=== PATIENT | female | born 1975 | race Caucasian/White ===

== ENCOUNTER 2019-07-18 09:51 | Inpatient (IN) | payer BC, MEDICAID, SELFPAY ==
[2019-07-18] VITALS (17 sets, daily range): BP systolic 157–206; BP diastolic 68–89; PULSE 76–104; RESP 16–21; TEMP 36.7–37.3; O2SAT 96–100
--- NOTE | ~2019-07-18 | US_ITS ---
EXAMINATION: US biopsy renal DATE: 07/29/2019 14:05 INDICATION: Acute on chronic renal failure. TECHNIQUE: The procedure including the risks, benefits, and alternatives was discussed with the patie nt. Risks discussed included bleeding and infection. The patient understood the risks and agreed to p roceed. A timeout was performed to verify the patient's name, date of , and procedure to be p erformed. The skin overlying the left kidney was prepped and draped in usual sterile fashion. Anest hetic was administered with 1% lidocaine subcutaneously. An 18 gauge core biopsy needle was then use d to obtain 3 core biopsy specimens under continuous sonographic guidance. The entry site was cleaned and dressed. There were no immediate complications. FINDINGS: Ultrasound images demonstrate the needle in the kidney. IMPRESSION: 1. Ultrasound-guided random left kidney core needle biopsy. Reviewed, dictated and finalized at location A. CTOR DATA
--- NOTE | ~2019-07-18 | XR_ITS ---
EXAMINATION: XR chest 1V portable DATE: 07/18/2019 10:46 INDICATION: Central line placement. TECHNIQUE: A single frontal view of the chest was obtained. COMPARISON: Chest 2 views 06/05/2019 FINDINGS: There is mild atelectasis at right lung base. No pleural effusion or pneumothorax. The hear t size is normal. A left upper extremity peripherally inserted central venous catheter (PICC) is seen with tip in the superior vena cava. IMPRESSION: 1. PICC tip in the superior vena cava. 2. Mild atelectasis at right lung base. Reviewed, dictated and finalized at location A. S OFFICE ADMINISTRATOR
--- NOTE | ~2019-07-18 | XR_ITS ---
EXAMINATION: XR chest 2V DATE: 07/22/2019 15:28 INDICATION: Cough TECHNIQUE: PA and lateral views of the chest are obtained. COMPARISON: 07/18/2019 FINDINGS: There are airspace opacities of the lingula and left lower lobe. A left upper extremity PIC C ends with its tip in the proximal superior vena cava. There is a small left pleural effusion. The h eart size is normal. There is moderate thoracic spondylosis. IMPRESSION: 1. Left basilar airspace opacity, consistent with atelectasis versus pneumonia. Reviewed, dictated and finalized at location A. ER WOODWIND REEDS
--- NOTE | ~2019-07-18 | XR_ITS ---
EXAMINATION: XR foot LT min 3V DATE: 07/18/2019 12:59 INDICATION: Left foot diabetic ulcer. TECHNIQUE: 4 views of left foot were obtained. COMPARISON: None. FINDINGS: There is amputation of neck of second metatarsal. There are erosions of head and neck of fo urth metatarsal with pathologic fracture. Periosteal new bone formation is seen of the second through fifth metatarsals. There is dorsomedial dislocation of first proximal phalanx with respect to the me dial cuneiform. 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 There is mild osteoarthritis of some of the interphalangeal joints. There is an enthesophyte at plantar aspect of calcaneal tuberosity. There is forefoot and midfoot soft tissue swelling. IMPRESSION: 1. Osteomyelitis involving the fourth metatarsal. 2. Periosteal reaction of the second through fifth metatarsals, which may be from osteomyelitis or ve nous stasis. 3. Neuropathic osteoarthropathy. Reviewed, dictated and finalized at location A. NCE TECHNICIAN IMPRESSION: 1. Osteomyelitis involving the fourth metatarsal. 2. Periosteal reaction of the second through fifth metatarsals, which may be fr om osteomyelitis or venous stasis. 3. Neuropathic osteoarthropathy.
--- NOTE | ~2019-07-18 | XR_ITS ---
EXAMINATION: XR chest 1V portable INDICATION: Tunnel dialysis catheter insertion TECHNIQUE: Portable AP chest at 1414 hours COMPARISON: 07/22/2019 FINDINGS: A right internal jugular analysis catheter has been inserted which ends with its tip in the proximal right atrium. There is no pneumothorax. Previously described airspace opacities of the ling patel and left lower lobe have resolved. The heart size is normal. There is no pleural effusion. IMPRESSION: 1. Right internal jugular tunneled dialysis catheter ending in the right atrium. No pneumothorax. 2. Resolved left basilar airspace opacity, consistent with atelectasis versus pneumonia. Reviewed, dictated and finalized at location A. AD SPINNER IMPRESSION: 1. Right internal jugular tunneled dialysis catheter ending in the right atrium . No pneumothorax. 2. Resolved left basilar airspace opacity, consistent with atelectasis versus p neumonia.
--- NOTE | ~2019-07-18 | NM_ITS ---
EXAMINATION: NM renal flow and function DATE: 07/22/2019 16:28 INDICATION: Acute renal injury TECHNIQUE: Following the intravenous administration of 8.4 mCi Tc-99m MAG3, posterior abdominal radio nuclide angiogram and subsequent time course of static images of the kidneys, ureters, and bladder we re obtained. COMPARISON: Renal ultrasound dated 07/20/2019 FINDINGS: The posterior abdominal radionuclide angiogram obtained demonstrates prompt, symmetrical pe rfusion of the kidneys. Sequential static images show normal renal size, position, morphology and tr acer accumulation. Renogram shows prompt uptake (normal peak 3-5 minutes) and excretion of the radio pharmaceutical bilaterally. The relative early renal uptake is 53.5% on the right and 46.5% on the l eft (<40% is abnormal). No abnormalities of the ureters or bladder are seen. Significantly degraded clearance of renal activity with T1/2 max reached kidney significantly greater than 25 minutes. No discernible accumulation of activity at the renal pelvises sees, ureters or blad ghulam. IMPRESSION: 1. Symmetric kidney function. 2. Markedly delayed activity clearance from both kidneys consistent with nonspecific nephropathy. Reviewed, dictated and finalized at location A. SPECTROMETRY MANAGER IMPRESSION: 1. Symmetric kidney function. 2. Markedly delayed activity clearance from both kidneys consistent with nonspe cific nephropathy.
--- NOTE | ~2019-07-18 | US_ITS ---
EXAMINATION: US right upper quadrant DATE: 07/19/2019 11:18 INDICATION: Right upper quadrant pain TECHNIQUE: Multiple grayscale and Doppler ultrasound images of the abdomen were obtained. COMPARISON: CT, 07/18/2019 FINDINGS: The head and and body of the pancreas are normal. The pancreatic tail is obscured by bowel gas. The liver is normal with normal echogenicity and echotexture. No surface nodularity. Normal hepa topetal flow in the main portal vein. The gallbladder is normal with no abnormal wall thickening, per icholecystic fluid or stones. The normal common bile duct measures 6 mm. There was no sonographic Mur phy sign. IMPRESSION: 1. Normal sonographic study of the gallbladder. Reviewed, dictated and finalized at location A. N SERVICE SPECIALIST
--- NOTE | ~2019-07-18 | XR_ITS ---
EXAMINATION: XR fl guide central line place INDICATION: Tunneled dialysis catheter placement TECHNIQUE: Fluoroscopy exposure time was 37.8 seconds. The DAP for this procedure was 0.17163 mGycm2. COMPARISON: None available FINDINGS: Fluoroscopic image demonstrates a partially imaged large bore catheter with its tip project ing in the proximal right atrium. Please refer to procedure note for full details. IMPRESSION: Large bore catheter insertion. Please refer to procedure note for full details. Reviewed, dictated and finalized at location A. STRIAL COMMERCIAL GROUNDSKEEPER IMPRESSION: Large bore catheter insertion. Please refer to procedure note for f ull details.
--- NOTE | ~2019-07-18 | CT_ITS ---
EXAMINATION: CT abdomen pelvis wo con DATE: 07/18/2019 11:24 INDICATION: Right lower quadrant abdominal pain. TECHNIQUE: Computed tomography (CT) of the abdomen and pelvis was performed without intravenous contr ast. Automated exposure control and iterative reconstruction technique were employed. The dose-length product was 399.07 mGy-cm. COMPARISON: None. FINDINGS: The visualized portions of the lung bases demonstrate small pleural effusions, right worse than left. There is mild atelectasis bilaterally. The heart size is normal. There is a small pericard ial effusion. The liver, gallbladder, spleen, pancreas, adrenal glands, and kidneys are normal. There is no urolithiasis. There is liquid stool in the colon suggestive of diarrhea. The appendix is rosalia l. There is widespread edema of the intra-abdominal fat and body wall fat. There is wall thickening o f the distal esophagus, which may be interstitial edema or esophagitis. There are no pathologically e nlarged lymph nodes. There is no free intraperitoneal fluid. There is mild thoracolumbar spondylosis. IMPRESSION: 1. Anasarca including small pleural effusions and small pericardial effusion. 2. Wall thickening of the distal esophagus, which may be interstitial edema or esophagitis. Reviewed, dictated and finalized at location A. EGE PROFESSOR
--- NOTE | ~2019-07-18 | US_ITS ---
EXAMINATION: US renal BI DATE: 07/20/2019 13:41 INDICATION: Acute on chronic kidney disease TECHNIQUE: Multiple grayscale and Doppler ultrasound images of the kidneys were obtained. COMPARISON: 07/19/2019 FINDINGS: The right kidney measures 11.2 x 4.7 x 5.9 cm. The left kidney measures 10.5 x 5.3 x 5.2 cm . The kidneys demonstrate increased parenchymal echogenicity. There is no hydronephrosis. The bladder is incompletely distended but appears normal. IMPRESSION: 1. Medical renal disease. Reviewed, dictated and finalized at location A. NOMY ADVISOR IMPRESSION: 1. Medical renal disease.
[2019-07-18 10:09] LABS: Glucose Point of Care 280 (65-105)
--- NOTE | 2019-07-18 10:28 | ED.GENADULT ---
HPI - General Adult General Chief complaint: Nausea/Vomiting/Diarrhea Stated complaint: Vomiting Time Seen by Provider: 07/18/19 10:00 Source: patient Mode of arrival: ambulatory Limitations: no limitations History of Present Illness HPI narrative: Patient is a 43-year-old female who presents to emergency department for evaluation of nausea and vomiting and abdominal pain that is worsened over the last several days has been having some nausea and vomiting over the course the last 2 weeks went to [place] in the last 2 days had blood work and evaluation and was discharged home with Zofran which she continues to have vomiting. Patient currently is getting Zosyn through a PICC line for a left foot ulcer. Patient notes history of diabetes mellitus and is currently under the care of a specialist for her wound and sees him weekly. Patient notes that the wound has been improving per the specialist. Patient notes aching pain in the right lower quadrant of the abdomen. Patient denies rectal bleeding melena hematemesis or fever. Related Data Home Medications Medication Instructions Recorded Confirmed atorvastatin 80 mg PO HS 06/05/19 06/06/19 insulin lispro 1 sliding scale dose SUBCUT 06/05/19 06/06/19 USEASDIRECTD lisinopril 10 mg PO DAILY 06/05/19 06/06/19 metoclopramide HCl [Reglan] 10 mg PO Q6H PRN 06/05/19 06/06/19 pantoprazole [Protonix] 40 mg PO QAM 06/05/19 06/06/19 Allergies Allergy/AdvReac Type Severity Reaction Status Date / Time No Known Drug Allergies Allergy Verified 06/05/19 22:20 Review of Systems Review of Systems: Narrative: CONSTITUTIONAL: Denies fever, or sweats. Positive for chills EYES: Denies redness, or discharge. ENT: Denies rhinorrhea, congestion, sore throat, or otalgia. CARDIOVASCULAR: Denies chest pain, palpitations, or edema. RESPIRATORY: Denies cough or dyspnea. GENITOURINARY: Denies dysuria or hematuria. SKIN: Positive for foot ulcer MUSCULOSKELETAL: Denies back pain, joint pain, or myalgia. NEUROLOGIC: Denies headache, dizziness, or weakness. [facility] Past Medical History Medical History (Updated 07/18/19 @ 13:46 by Karl Romero PA-C) Amputation of toe of left foot Amputation toe Delivery with history of Diabetes mellitus HTN (hypertension) Kidney failure Social History Social History Years smoked: 27 Smoking status: Current every day smoker Tobacco type: cigarettes Additional smoking assessment comments: 2 packs per week Alcohol intake: never Substance use: never Spiritual care concerns: No Agree to blood products: Yes Exam Narrative: Exam Narrative: GENERAL: Ill-appearing, well-nourished, and in no acute distress. HEAD: Normocephalic, atraumatic. EYES: PERRLA and EOMI. ENT: Nares clear, no rhinorrhea or epistaxis. Mucous membranes moist. CHEST: Clear to auscultation. No respiratory distress. No wheezes rales or rhonchi HEART: Regular rate and rhythm. No murmur heard. Normal peripheral pulses. ABDOMEN: Soft, right lower quadrant tenderness to palpation, nondistended, normal active bowel sounds. EXTREMITIES: Normal range of motion. No edema. SKIN: Warm, dry, no rash. Superficial ulcer over the dorsum of the left midfoot that is quarter sized appears to be superficial with some slight surrounding erythema NEURO: No focal deficits. Alert and oriented x3. Cranial nerves II through XII grossly intact PSYCH: Normal mood and affect. Course Course Emergency Course: Patient in the room aware of case findings treatment plan and diagnosis agreeing to stay in hospital for evaluation by infectious disease and nephrology patient was hydrated in the emergency department. Records were attempted to be gotten from her prior [place] visit Consultations Consultation #1: Spoke with Dr. anna who will consult on patient does not want the antibiotic to be changed but would like pharmacist to check to m
--- NOTE | 2019-07-18 10:39 | PC.NURSE ---
Attempts x3 different staff for blood cultures and labs unsuccessful. Sawyer [facility] contacted and will be enroute to draw.
[2019-07-18 11:03] LABS: Basophils Absolute Auto 0.1 K/mm3 (0.0-0.1); Basophils Percent Auto 0.4 % (0.2-1.2); Eosinophils Absolute Auto 0.1 K/mm3 (0-0.3); Eosinophils Percent Auto 0.6 % (0-4.4); Hemoglobin 10.9 g/dL (12.0-15.0); Immature Granulocyte Absolute 0.14 K/mm3 (0.00-0.031); Immature Granulocyte Percent A 0.8 % (0-0.5); Lymphocytes Absolute Auto 2.05 K/mm3 (0.9-3.2); Lymphocytes Percent Auto 11.9 % (18.3-44.2); Mean Corpuscular HGB Conc 31.1 g/dl (32-36); Mean Corpuscular Hemoglobin 30.1 pg (26-34); Mean Corpuscular Volume 96.7 fl (80-100); Mean Platelet Volume 9.5 fl (7.4-10.4); Monocytes Absolute Auto 0.8 K/mm3 (0.1-0.6); Monocytes Percent Auto 4.8 % (2.6-8.5); Neutrophils Absolute Auto 14.1 K/mm3 (1.3-6.7); Neutrophils Percent Auto 81.5 % (45.5-73.1); Platelet Count Result 422 k/mm3 (150-375); Red Blood Count 3.62 M/mm3 (4.2-5.4); Red Cell Distribution Width 15.3 % (11.5-14.5); White Blood Count 17.3 K/mm3 (4.5-10.0)
[2019-07-18 11:17] LABS: Lactic Acid Reflex 1.2 mmol/L (0.7-2.1)
[2019-07-18 11:18] LABS: Alanine Aminotransferase 13 U/L (4-35); Albumin Level 3.4 g/dL (3.5-5.1); Alkaline Phosphatase 98 U/L (38-126); Aspartate Amino Transferase 18 U/L (14-36); Bilirubin,Total 0.5 mg/dL (0.2-1.3); Blood Urea Nitrogen 55 mg/dL (7-17); Calcium 8.5 mg/dL (8.4-10.2); Carbon Dioxide 28 mmol/L (22-30); Chloride 105 mmol/L (98-107); Estimated CRCL calculation 13 ml/min; Estimated Glomerular Filt Rate 11; Glucose 314 mg/dL (65-105); Lipase 49 U/L (23-300); Potassium 3.2 mmol/L (3.4-5.0); Sodium 148 mmol/L (137-145)
[2019-07-18 11:44] LABS: Beta-Hydroxybutyrate/Acetoacetate 4.92 mmol/L (0.02-0.27)
--- NOTE | 2019-07-18 11:45 | ECG_ITS ---
Measurements Intervals [place] Rate: 98 P: 71 MI: 157 QRS: 7 QRSD: 94 T: 55 QT: 348 QTc: 446 Interpretive Statements SINUS RHYTHM POSSIBLE LEFT ATRIAL ENLARGEMENT INCOMPLETE RIGHT BUNDLE BRANCH BLOCK BORDERLINE R WAVE PROGRESSION, ANTERIOR LEADS BORDERLINE ST ABNORMALITY- LATERAL LEADS BORDERLINE ECG Electronically Signed On 07-18-2019 17:19:31 ENVIRONMENTAL HEALTH PHYSICIAN by Misael Ahmadi D.O.
[2019-07-18 11:46] LABS: Magnesium 2.3 mg/dL (1.6-2.3); Phosphorus 5.1 mg/dL (2.5-4.5)
[2019-07-18 11:46] LABS: Add Urine Microscopic? YES; Appearance Urine Cloudy (Clear); Bilirubin Urine Negative (Negative); Blood Urine 2+ (Negative); Budding Yeast Urine Present /hpf; Color Urine Yellow (Yellow); Glucose Urine UA 3+ mg/dL (Negative); Ketones Urine 1+ mg/dL (Negative); Leukocyte Esterase Ur 1+ LEU/UL (Negative); Mucus Urine Rare /lpf; Nitrate Urine Negative (Negative); Protein Urine 3+ mg/dL (Negative); RBC Urine >75 /hpf (0-2); Specific Grav Ur 1.017 (1.001-1.035); Squamous Epithelial Cell Urine Few /hpf (Few); Urobilinogen Urine Negative mg/dL (<2.0); WBC Clumps Urine Present /HPF; WBC Urine >75 /hpf
[2019-07-18 11:47] LABS: Alveolar/Arterial O2 Gradient 19.3 mmHg; Fractional Inspired Oxygen 21 %; Methemoglobin ABG 0.2 %THb (0-1.5); Oxygen Content ABG 15.3 %vol (16.0-22.0); Oxygen Saturation ABG 95.5 % (95.0-100.0); Oxyhemoglobin 94.1 % THb (90.0-100.0); PCO2 ABG 44.5 mmHg (35.0-45.0); PO2 ABG 77.1 mmHg (80.0-100.0); PO2 FiO2 Ratio Arterial Blood 3.67 %; Reduced Hemoglobin 5.7 %THb (0-5.0); Total Hemoglobin 11.5 g/dL (12.0-18.0); pH ABG 7.416 (7.350-7.450)
[2019-07-18 11:48] LABS: Device ROOM AIR; Site Drawn RIGHT BRACHIAL
[2019-07-18] MEDS: SODIUM CHLORIDE 0.9% IV 1,000 ML 999 ML IV CONT ×2 (11:50→15:21)
[2019-07-18] MEDS: ONDANSETRON INJ 4 MG/2 ML VIAL IV PUSH ×2 (11:52→20:26)
[2019-07-18] MEDS: FAMOTIDINE 20 MG/2 ML VIAL IV PUSH ×2 (11:54→20:23)
[2019-07-18 13:01] LABS: NT Pro B Type Natriuretic Pept 8500 PG/ML (5-100)
--- NOTE | 2019-07-18 13:35 | PC.NURSE ---
Pt up to bathroom to void for 2nd time. States nausea continues.
[2019-07-18] MEDS: LACTATED RINGERS 1,000 ML 125 ML IV CONT (14:34)
[2019-07-18] MEDS: METOCLOPRAMIDE HCL INJ 10 MG/2 ML VIAL IV PUSH (14:35)
[2019-07-18] MEDS: INSULIN HUMAN REGULAR (*BKC) 100 UNITS/ML 10 UNITS SUB-Q (14:38)
--- NOTE | 2019-07-18 14:41 | PC.NURSE ---
Bed assignment received, hospitalist and storage facility housekeeper requests BMP prior to admission. Captain Cannery Tender contacted to come and draw the patient as hard stick from earlier.
--- NOTE | 2019-07-18 14:50 | PC.NURSE ---
Phlebotomy at bedside attempting blood draw. Preparing to change pt room to ICU
--- NOTE | 2019-07-18 15:05 | PC.NURSE ---
Pt up to bedside commode. Ice chips given po earlier have stayed down.
[2019-07-18 15:10] LABS: Blood Urea Nitrogen 53 mg/dL (7-17); Calcium 8.3 mg/dL (8.4-10.2); Carbon Dioxide 28 mmol/L (22-30); Chloride 106 mmol/L (98-107); Estimated CRCL calculation 13 ml/min; Estimated Glomerular Filt Rate 11; Glucose 304 mg/dL (65-105); Potassium 3.2 mmol/L (3.4-5.0); Sodium 148 mmol/L (137-145)
--- NOTE | 2019-07-18 15:39 | PC.NURSE ---
SBAR refaxed to IMU. States they discarded the SBAR sent at 1400 as thought pt was going to ICU.
[2019-07-18 15:46] LABS: Glucose Point of Care 228 (65-105)
--- NOTE | 2019-07-18 15:52 | PC.NURSE ---
Attempt to call report, floor unable to take report at present time, will call back.
[2019-07-18 16:56] LABS: Glucose Point of Care 173 (65-105)
--- NOTE | 2019-07-18 17:20 | ADMIMU ---
This patient, Pamela Bhat, was admitted to IMU status, and placed in IMU Room 202-. Patient/family oriented to hospital policies and general routines including ID bracelet, bed and alarms, visiting hours, pain management, procedures, bathroom and other care routines, personal items, smoking policy, room service/diet, and visiting hours. Valuables list has been completed. Information on how to activate the Rapid Response Team has been discussed. Patient/Family are encouraged to report perceived risks to care and to ask questions if they do not understand what they are told or what they should do.
--- NOTE | 2019-07-18 18:57 | PM.IMHP ---
H&P: HPI History of Present Illness Chief complaint: Acute kidney injury/hyperglycemia/dehydration Narrative: Pamela Bhat is a 43 year old female who has a history of diabetes insulin-dependent most likely type 1. Patient recently was a [facility] within the last day or 2. She has a history of chronic osteomyelitis to the left foot. Patient has a PICC line to the left arm and has been getting Zosyn IV for this chronic osteomyelitis. The patient was admitted here on 06/05/2019 for the nausea and vomiting. Patient was found to be in acute diabetic ketoacidosis. She stated that was the 1st time she was in ketoacidosis. Patient stated that last Friday her blood sugar was in the 100s. Patient stated she has had some nausea and vomiting for at least 2 weeks now. She has not seen a GI specialist. She states that when she is admitted the hospital she has some medication and she feels better until she is discharged when she goes home she gets sick again. The patient also complains of some lower abdominal cramping. She denied any rectal bleed bleeding or vomiting any blood. Potassium was found to be 3.2. Her anion gap initially was 15. The patient was dehydrated and her blood sugar was 314. Patient was given 2 L of IV fluid and subcu insulin. I spoke with the shore man who stated that the patient could go to ICU for DKA if her anion gap is above 13. However repeat anion gap was 14 in the ED physician spoke with the shore man who came to the conclusion that the patient does not need to be admitted to ICU. Patient's repeat anion gap was 12 when she is admitted to IMU. Her blood sugars now 173. Her creatinine has 4.5 today. She typically has chronic renal failure. Her baseline is typically around 1.4-2. Patient sees a informatica mdm architect in [facility] Dr. Forbes. There are some concerns about her receiving Zosyn IV with an increased creatinine. Patient had intractable nausea and vomiting as well. Patient is now tolerating liquid diet. Was given IV Pepcid in the emergency room. She is also given IV Zofran. She had Zofran and Reglan at home as well that did not work for her. She was also given IV Reglan here in the emergency room. Date of service 07/18/2019 Review of Systems Review of Systems: Narrative: Patient has a flat affect and is a poor historian. All systems reviewed & are unremarkable except as noted in HPI and below Constitutional: Constitutional: Reports as per HPI, Reports no additional constitutional complaints, Reports chills (Chronic), Reports fatigue and Reports poor appetite Eyes: Eyes: Reports as per HPI and Reports no additional eye complaints Comments: She has retinopathy but has not had any injections in her eyes have as of yet. ENT: Reports system reviewed and no additional complaints, except as documented and Reports Normal hearing present Cardiovascular: Cardiovascular: Reports no additional cardiovascular complaints Respiratory: Respiratory: Reports no additional respiratory complaints and Reports no additional respiratory complaints Gastrointestinal: Gastrointestinal: Reports as per HPI, Reports no additional gastrointestinal complaints, Reports dyspepsia, Reports nausea and Reports vomiting Musculoskeletal: Musculoskeletal: Reports no additional musculoskeletal complaints Comments: Chronic osteomyelitis to the left foot. Integumentary/Breasts: Skin/Breast: Reports system reviewed and no additional complaints, except as docu and Reports as per HPI Neurologic: Reports system reviewed and no additional complaints, except as documented, Reports as per HPI and Reports Normal hearing present Psychiatric: Psychiatric: Reports no additional psychiatric complaints and Reports as per HPI Endocrine: Endocrine: Reports no additional endocrine complaints Hematologic/Lymphatic: Hematologic/Lymphatic: Reports no additional hematologic/lymphatic complaints Allergic/Immunologic: Allergic/Immunologic: Reports no add
[2019-07-18 20:01] LABS: Glucose Point of Care 167 (65-105)
[2019-07-18] MEDS: SODIUM CHLORIDE 0.9% IV 1,000 ML 75 ML IV CONT (20:23)
[2019-07-18] MEDS: ATORVASTATIN 40 MG TABLET 80 MG PO (20:23)
[2019-07-18] MEDS: METOCLOPRAMIDE HCL INJ 10 MG/2 ML VIAL 5 MG IV PUSH (23:33)
[2019-07-19] VITALS (9 sets, daily range): BP systolic 154–198; BP diastolic 72–90; PULSE 82–96; RESP 12–20; TEMP 36.6–37; O2SAT 97–100
--- NOTE | 2019-07-19 | ECHO_ITS ---
Patient Info Name: Pamela Bhat Age: 43 years : 1975 Gender: Female Ht: 65 in Wt: 149 lbs BSA: 1.77 m2 HR: 100 bpm BP: 164 / 80 mmHg Heart Rhythm: Sinus Rhythm Technical Quality: Good Exam Date: 07/19/2019 1:49 PM Exam Location: [facility] Patient Status: Inpatient Admit Date: 07/18/2019 Staff Ordering Physician: Gregory Forbes MD Inspector Paper Products: Michael Lawler, RDCS, RT Attending Provider: Gillian Walker MD Referring Physician: Leidy TUTTLE; Exam Type: CA echo doppler color flow Study Info Indications R60.1 - Generalized edema Complete two-dimensional, color flow and Doppler transthoracic echocardiogram is performed. Summary 1. Left ventricular systolic function is normal, estimated at 60-65%. 2. Left ventricular chamber dimension is normal. 3. The aortic valve is trileaflet. 4. The mitral valve has normal leaflets. 5. There is trivial pericardial effusion. 6. Normal exam other than a trivial effusion. Left Ventricle Left ventricular chamber dimension is normal. Left ventricular systolic function is normal, estimated at 60-65%. The left ventricular diastolic function is normal. Right Ventricle Right ventricular chamber dimension is normal. Left Atria Left atrial chamber dimension is normal. Right Atria Right atrial chamber dimension is normal. Aortic Valve The aortic valve is trileaflet. Pulmonic Valve The pulmonic valve is normal. Mitral Valve The mitral valve has normal leaflets. Tricuspid Valve The tricuspid valve leaflets are normal. Pericardium/Pleural The pericardium appears normal. There is trivial pericardial effusion. Aorta The aortic root size at the sinus of Valsalva is normal. Left Ventricular Outflow Tract Name Value Normal LVOT 2D LVOT Diameter 2.1 cm LVOT Doppler LVOT Peak Gradient 5 mmHg LVOT Mean Gradient 3 mmHg LVOT VTI 23 cm LVOT VTI/AV VTI Ratio 0.8 LVOT Stroke Volume 79 ml LVOT CO 8.0 l/min LVOT CI 4.5 l/min/m2 Pulmonic Valve Name Value Normal PV Doppler PV Peak Gradient 4 mmHg Mitral Valve Name Value Normal MV Doppler MV Decel [place] 615 cm/s2 MV PHT 44 ms MV Area (PHT) 5.0 cm2 4.0-5.0 MV Diastolic Function
[2019-07-19] MEDS: ONDANSETRON INJ 4 MG/2 ML VIAL IV PUSH (01:22)
[2019-07-19] MEDS: METOCLOPRAMIDE HCL INJ 10 MG/2 ML VIAL 5 MG IV PUSH ×3 (05:00→17:33)
[2019-07-19 05:09] LABS: Basophils Absolute Auto 0.1 K/mm3 (0.0-0.1); Basophils Percent Auto 0.3 % (0.2-1.2); Eosinophils Absolute Auto 0.3 K/mm3 (0-0.3); Eosinophils Percent Auto 1.9 % (0-4.4); Hematocrit 33.4 % (37.0-47.0); Hemoglobin 10.4 g/dL (12.0-15.0); Immature Granulocyte Percent A 1.1 % (0-0.5); Lymphocytes Absolute Auto 2.67 K/mm3 (0.9-3.2); Mean Corpuscular HGB Conc 31.1 g/dl (32-36); Mean Corpuscular Hemoglobin 30.4 pg (26-34); Mean Corpuscular Volume 97.7 fl (80-100); Mean Platelet Volume 9.6 fl (7.4-10.4); Monocytes Percent Auto 5.3 % (2.6-8.5); Neutrophils Absolute Auto 13.6 K/mm3 (1.3-6.7); Neutrophils Percent Auto 76.4 % (45.5-73.1); Platelet Count Result 369 k/mm3 (150-375); Red Blood Count 3.42 M/mm3 (4.2-5.4); Red Cell Distribution Width 15.5 % (11.5-14.5); White Blood Count 17.8 K/mm3 (4.5-10.0)
[2019-07-19 05:21] LABS: Blood Urea Nitrogen 52 mg/dL (7-17); Calcium 8.2 mg/dL (8.4-10.2); Carbon Dioxide 28 mmol/L (22-30); Chloride 104 mmol/L (98-107); Estimated CRCL calculation 14 ml/min; Estimated Glomerular Filt Rate 12; Glucose 219 mg/dL (65-105); Potassium 2.9 mmol/L (3.4-5.0); Sodium 144 mmol/L (137-145)
[2019-07-19 07:45] LABS: Glucose Point of Care 214 (65-105)
[2019-07-19] MEDS: INSULIN GLARGINE (*BKC) 100 UNITS/ML 15 UNITS SUB-Q (08:41)
[2019-07-19] MEDS: FAMOTIDINE 20 MG/2 ML VIAL IV PUSH ×2 (08:41→20:32)
[2019-07-19] MEDS: SILVERGEL (ELTA) 45 ML 1 APPLIC TOPICAL (08:41)
[2019-07-19] MEDS: INSULIN ASPART (*BKC) 100 UNITS/ML SUB-Q ×3 (08:43→17:32)
--- NOTE | 2019-07-19 08:45 | PM.IMPN ---
Progress Note: A&P Assessment and Plan (1) Nausea and vomiting: Qualifiers: Vomiting Intractability: intractable Vomiting type: unspecified Qualified Code(s): R11.2 - Nausea with vomiting, unspecified Code(s): R11.2 - Nausea with vomiting, unspecified Status: Acute Assessment and Plan: Has been an ongoing issue. Initially thought related to DKA but has persisted with blood sugars improved. GI consulted and appreciate input. RUQ ultrasound ordered and pending. Will continue IV Pepcid, Zofran and Reglan for now. Await further recommendations from GI pending ultrasound results. Telemetry reviewed on 07/19/2019 with sinus rhythm. Will transfer to medical floor as stable. RUQ ultrasound negative. Also reported diarrhea to ID. C. diff testing in process. (2) Acute kidney injury superimposed on chronic kidney disease: Code(s): N17.9 - Acute kidney failure, unspecified; N18.9 - Chronic kidney disease, unspecified Status: Acute Assessment and Plan: Creatinine is elevated at 4.10 today which is well above her normal baseline of 1.40-1.80. Most likely result of dehydration from persistent nausea and vomiting. Will continue IV fluids. Her metal roaster, Dr. Forbes, has been consulted and appreciate input. Will continue to monitor. Echocardiogram ordered per nephrology with EF 60-65% and otherwise okay. (3) Acute dehydration: Code(s): E86.0 - Dehydration Status: Acute Assessment and Plan: Result of nausea and vomiting. Lactic acid normal. Remains on IV fluids. Will monitor. (4) Hypokalemia: Code(s): E87.6 - Hypokalemia Status: Acute Assessment and Plan: Potassium 2.9 this morning. IV replacement being given. Magnesium is normal at 2.3. Will recheck potassium this afternoon. Continue to monitor and replace as needed. (5) Diabetes mellitus: Qualifiers: Diabetes mellitus complication status: with hyperglycemia Diabetes mellitus type: type 1 Qualified Code(s): E10.65 - Type 1 diabetes mellitus with hyperglycemia Code(s): E11.9 - Type 2 diabetes mellitus without complications Status: Chronic Assessment and Plan: Anion gap was slightly elevated in the emergency room prior to IV fluids. Discussion was held as to whether not patient should go to ICU with final decision to place patient in IMU as did not appear to be in DKA at this time. Glucose reviewed on 07/19/2019 with glucose readings in low 200s. Will continue Lantus with sliding scale insulin. Will adjust as needed. Continue diabetic diet. Electrolyte disturbances result of other issues not diabetes. (6) Chronic osteomyelitis: Code(s): M86.60 - Other chronic osteomyelitis, unspecified site Status: Chronic Assessment and Plan: Does have PICC line in place. Will continue IV Zosyn that had been started at previous facility. Patient was to see Dr. Vivas this 10/18/2019. Dr. Vivas has been consulted here and appreciate input. Patient seen by Dr. Vivas today with IV Zosyn now stopped. (7) Diabetic foot ulcer: Qualifiers: Diabetes mellitus type: type 1 Diabetic foot ulcer location: midfoot Laterality: left Non-pressure ulcer stage: limited to breakdown of skin Qualified Code(s): E10.621 - Type 1 diabetes mellitus with foot ulcer; L97.421 - Non-pressure chronic ulcer of left heel and midfoot limited to breakdown of skin Code(s): E11.621 - Type 2 diabetes mellitus with foot ulcer; L97.509 - Non-pressure chronic ulcer of other part of unspecified foot with unspecified severity Status: Chronic Assessment and Plan: Has been seen by wound care nurses this morning. I did also see the wound with the wound care nurses. Wound clean at this time. Continue IV Zosyn as noted above. Continue local wound care. (8) HTN (hypertension): Qualifiers: Hypertension type: essential hypertension
--- NOTE | 2019-07-19 10:05 | PM.CNNEP ---
Assessment and Plan Assessment and plan (1) Acute kidney injury: Code(s): N17.9 - Acute kidney failure, unspecified Status: Acute Assessment and Plan: The patient has acute kidney injury. She has anasarca. We need to assess her cardiac is situation as well. Basically this is nephrotic. Acute renal failure may be due to antibiotics, allergic interstitial nephritis needs to be contemplated, will need to find out what exactly she was receiving on an outpatient basis. Acute tubular necrosis is a possibility as well. With the anasarca this is not to be intravascular volume depletion problem except that if she was for follow-up of the third-spacing which appears to be the case here. I will look at adding diuretics and stopping of fluids with a cardiac situation and evaluated. In the meantime antimicrobials for the foot infection. Control of underlying problems. Hold lisinopril. (2) CKD stage 3 due to type 1 diabetes mellitus: Code(s): E10.22 - Type 1 diabetes mellitus with diabetic chronic kidney disease; N18.3 - Chronic kidney disease, stage 3 (moderate) Status: Acute (3) Chronic renal failure, stage 3 (moderate): Code(s): N18.3 - Chronic kidney disease, stage 3 (moderate) Status: Acute Assessment and Plan: Has stage III at baseline (4) Hypokalemia: Code(s): E87.6 - Hypokalemia Status: Acute (5) Anasarca associated with disorder of kidney: Code(s): N04.9 - Nephrotic syndrome with unspecified morphologic changes Status: Acute Assessment and Plan: Assess cardiac situation (6) Nausea and vomiting: Qualifiers: Vomiting Intractability: intractable Vomiting type: unspecified Qualified Code(s): R11.2 - Nausea with vomiting, unspecified Code(s): R11.2 - Nausea with vomiting, unspecified Status: Acute Assessment and Plan: Symptomatic treatment History of Present Illness Reason for Consult Consult date: 07/19/19 Reason for consult: acute renal failure and chronic renal failure Requesting physician: Dm Osorio PA-C Chief Complaint Chief complaint: Acute kidney injury/hyperglycemia/dehydration History of Present Illness Narrative: 43-year-old pleasant white female who has a history of type 1 diabetes mellitus since the age of 16, she has retinopathy, neuropathy, renal failure. She has had 3rd and 5th digit amputations on the left. She has a left foot ulcer which is being treated on an outpatient basis with a q.6 hours hourly antibiotic. Over the last couple weeks she has had nausea and vomiting and some diarrhea. This is unrelenting. Hence she presented to the emergency room from where she has been noted to have acute on chronic renal failure and admitted to manage. She was admitted about a month ago at [facility] and she states that she was taken off the diuretics. She is swollen up compared to the last time that I saw him. She was seen by covering physician at that time at [facility]. She has gained some fluid weight. She is more short of breath. She feels she is urinating less. No changes in other symptoms, no burning or blood. She denies currently any shortness of breath. The patient had no fever but she has had chills. She is anxious it seems anxious and nervous. In March her BUN and creatinine were 32 and 1.3 mg/dL respectively. In the past for antinuclear antibody, complement panel, serum protein electrophoresis were all normal She has had 4.3 g per day of proteinuria in the past. She has had bouts of acute renal failure, TIA, hypoalbuminemia. Review of Systems Review of Systems: Narrative: She has bilateral lower extremity swelling. Sleeps okay. Appetite is poor. All systems reviewed & are unremarkable except as noted in HPI and below (History of presenting illness) [facility] Past Medical History Medical History Amputation of toe Chronic osteomyelitis
[2019-07-19 11:35] LABS: Glucose Point of Care 217 (65-105)
[2019-07-19] MEDS: AMLODIPINE BESYLATE 5 MG TABLET PO (12:15)
[2019-07-19] MEDS: SODIUM CHLORIDE 0.9% IV 1,000 ML 75 ML IV CONT (14:12)
[2019-07-19 14:30] LABS: Potassium 3.2 mmol/L (3.4-5.0)
[2019-07-19 14:31] LABS: Hemoglobin A1C 8.2 % (<5.7)
--- NOTE | 2019-07-19 15:13 | CONS_ITS ---
DATE OF CONSULTATION: 07/19/2019 HISTORY OF PRESENT ILLNESS: A 43-year-old female with history of type 1 diabetes, chronic kidney disease with peripheral vascular disease, osteomyelitis of the left foot on IV antibiotics as an outpatient, status post amputation, hypertension, hyperlipidemia, x2 and T and A, who was previously admitted with diabetic ketoacidosis in May 2019. She now presents with nausea and vomiting. I am now asked to provide GI evaluation at the request of the Hospitalist Service. Primary care provider is Dr. Christiano Ochoa. The patient states that for the past 2 weeks she has been having nausea and vomiting. P.o. intake has been poor as this triggers nausea and vomiting. There is no coffee-ground or hematemesis. She has periumbilical abdominal pain intermittently with this. She is also having 6-7 loose stools per day. In general, she denies heartburn and takes Protonix at home. She denies loss of appetite or weight. Typically, she does not have diarrhea or constipation. There is no hematochezia, melena, fever, jaundice, scleral icterus, dark urine, light stools, itching, hot or cold intolerance, chest pain, shortness of breath at rest, hematuria, dysuria, new cough or visual changes, easy bruising, tingling of the skin bone pain, or tremors. No endocarditis risk factors. ALLERGIES: NO KNOWN DRUG ALLERGIES. MEDICATIONS: Include: 1. Atorvastatin. 2. Insulin. 3. Norvasc. 4. Lisinopril. 5. Protonix. 6. As needed Reglan. SOCIAL HISTORY: Quit smoking in May of 2019. Nondrinker. She does not use marijuana. FAMILY HISTORY: Adopted and unknown. She had upper endoscopy and incomplete colonoscopy a couple of years ago. She does not know what it showed or where they were done. PHYSICAL EXAMINATION: GENERAL: Well-developed, well-nourished female, lying in bed, in no apparent distress. She states that she is feeling better on medical therapy. She does not have lower extremity edema, jaundice, spider angioma, palmar erythema. HEENT: Skull is normocephalic, atraumatic. Pupils nonicteric. Oropharynx is clear. NECK: Supple without thyromegaly. LUNGS: Clear to auscultation. HEART: Rate and rhythm regular. S1, S2 normal. ABDOMEN: Normoactive bowel sounds. Soft, nontender, nonrigid, nondistended without hepatosplenomegaly or masses. RECTAL: Deferred. NEURO: Conscious, alert x3. LABORATORY DATA: Her labs today, hemoglobin 10, hematocrit 33, white count of 18, creatinine 4.1. On 07/18, hemoglobin 11, hematocrit 35, white count 17, MCV 97, creatinine 4.5. LFTs are normal. Glucose is 280. Beta-hydroxybutyrate is 4.9. ASSESSMENT/PLAN: 1. The patient with nausea, vomiting, abdominal pain, likely multifactorial and partially related to DKA on admission and diabetic ketoacidosis. There is also likely a component of renal disease underlying this as well. At this point, recommend optimizing glycemic control and medical situation. Correct electrolyte abnormalities. Hydrate. Continue alternating Zofran and Reglan. Continue acid suppression. 2. The patient will need upper endoscopy, which will be done by Dr. Ramirez. The procedures, indications, alternatives of barium studies, and risks including perforation, bleeding, infection, reaction to medication, as well as possible need for bladder surgery were discussed with the patient. She voices understanding and agrees to proceed and will provide informed consent. 3. Diarrhea, which is recent. We will order stool studies and follow clinically. She is on antibiotics. Concern for C diff. Thank you for allowing me to share in the care of this very nice patient. Further recommendations will be per Dr. Ramirez.
--- NOTE | 2019-07-19 15:15 | WPDINFPN2 ---
Progress Note: A&P Assessment and Plan (1) Chronic osteomyelitis: Code(s): M86.60 - Other chronic osteomyelitis, unspecified site Status: Chronic Assessment and Plan: 1. Chronic OM of R foot with acute exacerbation. 2. N/V/D, at least partly due to antibiotic. 3. DM, poor control REC Hold PipTazo. C diff assay. Resume antibiotic based on clinical course, may need alternative agent, but BKA will likely be needed in near future regardless. Subjective Date/time seen: 07/19/19 15:15 Objective Data Vital Signs Vital Signs: Vital Signs - 24 hr 07/18/19 15:31 07/18/19 16:00 07/18/19 16:10 Temperature 37.3 C Pulse Rate 102 H 97 94 Respiratory Rate 16 18 Blood Pressure 178/81 H 171/75 H 178/81 H Pulse Oximetry 99 99 99 07/18/19 18:00 07/18/19 19:37 07/18/19 20:00 Temperature 36.7 C Pulse Rate 98 93 90 Respiratory Rate 20 Blood Pressure 157/76 H Pulse Oximetry 100 07/18/19 22:00 07/18/19 23:41 07/19/19 00:00 Temperature Pulse Rate 90 89 96 Respiratory Rate Blood Pressure Pulse Oximetry 07/19/19 02:00 07/19/19 04:00 07/19/19 05:19 Temperature 36.8 C Pulse Rate 82 87 84 Respiratory Rate 20 Blood Pressure 160/72 H 154/82 H Pulse Oximetry 97 07/19/19 06:00 07/19/19 07:36 07/19/19 08:00 Temperature 36.7 C Pulse Rate 90 89 96 Respiratory Rate 16 Blood Pressure 164/80 H Pulse Oximetry 100 Intake/Output Intake/Output: Intake & Output 07/16/19 07/17/19 07/18/19 07/19/19 23:59 23:59 23:59 23:59 Intake Total 3237 2920 Output Total 1300 Balance 3237 1620 Meds/Results Medications: Active Medications Generic Name Dose Route Start Last Admin Trade Name Freq PRN Reason Stop Dose Admin Amlodipine Besylate 5 mg 07/19/19 09:00 07/19/19 12:15 Norvasc PO 5 mg QAM JOHNSON Administration Atorvastatin Calcium 80 mg 07/18/19 21:00 07/18/19 20:23 Lipitor PO 80 mg HS JOHNSON Administration Dextrose 12.5 gm 07/18/19 18:56 Dextrose 50% Syringe IV PUSH PRN PRN Hypoglycemia Protocol Famotidine 20 mg 07/18/19 21:00 07/19/19 08:41 Pepcid Iv IV PUSH 20 mg Q12HR JOHNSON Administration Glucagon 1 mg 07/18/19 18:56 Glucagon For Inj IM PRN PRN Hypoglycemia Protocol Glucose 15 gm 07/18/19 18:56 Glutose 15 PO PRN PRN Hypoglycemia Protocol Hydralazine HCl 10 mg 07/19/19 08:55 Apresoline Hcl Inj IV PUSH Q6HR PRN Blood Pressure - High>160/80 Dextrose 1,000 mls @ 100 mls/hr 07/18/19 18:56 Dextrose 5% 1,000 Ml IVPB PRN PRN Hypoglycemia Protocol Sodium Chloride 1,000 mls @ 75 mls/hr 07/18/19 19:50 07/19/19 14:12 Normal Saline Iv IV CONT 75 mls/hr .[id number] JOHNSON Administration Insulin Aspart 2 - 5 units 07/18/19 17:00 07/19/19 12:15 Novolog SUB-Q 2 units TIDWM JOHNSON Administration Protocol Insulin Glargine 15 units 07/19/19 09:00 07/19/19 08:41 Lantus SUB-Q 15 units DAILY JOHNSON Administration Metoclopramide HCl 5 mg 07/19/19 00:00 07/19/19 12:15 Reglan IV PUSH 5 mg Q6HR JOHNSON Administration Ondansetron HCl 4 mg 07/18/19 13:48 07/19/19 01:22 Zofran Inj IV PUSH 4 mg Q4H PRN Administration Nausea Silver Nitrate 1 applic 07/19/19 09:00 07/19/19 08:41 Silvergel TOPICAL 1 applic DAILY JOHNSON Administration Radiology Results: ITS Impressions Chest X-Ray 07/18/19 10:50 IMPRESSION: 1. PICC tip in the superior vena cava. 2. Mild atelectasis at right lung base. Abdomen/Pelvis CT 07/18/19 11:32 IMPRESSION: 1. Anasarca including small pleural effusions and small pericardial effusion. 2. Wall thickening of the distal esophagus, which may be interstitial edema or esophagitis. Foot X-Ray 07/18/19 13:12 IMPRESSION: 1. Osteomyelitis involving the fourth metatarsal. 2. Periosteal reaction of the second through fifth metatarsals, which may be from os
[2019-07-19 17:13] LABS: Glucose Point of Care 267 (65-105)
[2019-07-19 20:18] LABS: Glucose Point of Care 210 (65-105)
--- NOTE | 2019-07-19 20:21 | CONS_ITS ---
DATE OF CONSULTATION: 07/19/2019 REASON FOR CONSULTATION: Osteomyelitis. HISTORY OF PRESENT ILLNESS: The patient is a 43-year-old female with longstanding and poorly controlled diabetes mellitus. She was at [facility] in May with right foot osteomyelitis on acute basis and was discharged on piperacillin, tazobactam. Plans for approximately 6 weeks of IV therapy with guarded prognosis even then. She does have chronic renal insufficiency as well, and her antibiotic dosing was adjusted about 1 week prior to admission. She presented to the hospital here yesterday with several days of nausea and vomiting of all foods and liquids of about 7 days duration. Also up to 6 loose to watery bowel movements per day with no abdominal pain. Here her piperacillin has been given still and consultation was requested. No fever, chills, or sweats. She feels minimally better today. ALLERGIES: NONE KNOWN. PRESENT MEDICATIONS: List reviewed. No systemic immunosuppressants. HABITS: Active smoker about a 3rd of a pack per day. No illicit drugs. PAST MEDICAL HISTORY: In addition to the above, toe amputations on the right, , tonsillectomy, chronic renal insufficiency, hyperlipidemia, hypertension. FAMILY HISTORY: Unknown as she is adopted. SOCIAL HISTORY: . Lives locally. REVIEW OF SYSTEMS: Endocrine, allergic, immunologic, constitutional, musculoskeletal, skin otherwise negative. She feels like her foot is improving. PHYSICAL EXAMINATION: GENERAL: This is a pleasant female who, appears older than her actual age, in no acute distress. VITAL SIGNS: Afebrile 164/80, 89, 16. SKIN: Warm and dry. EENT: Conjunctivae are normal. The mucous membranes well hydrated. LUNGS: Clear to auscultation. CARDIAC: Regular rate and rhythm without murmur, gallop. ABDOMEN: Nontender, soft, nondistended. EXTREMITIES: 3+ nonpitting edema both distal legs. The foot is in a complex dressing on the right, which I did not remove. LABORATORY DATA: White count 17.8, hemoglobin 10.4, platelets are 369. Blood gas is 7.42, 45, 77, and that is on room air. She has hyponatremia initially, now recorrected. BUN 52, creatinine 4.1, glucose 219, A1c is 8.2%, calcium is 8.2, BNP is elevated. Albumin 3.4. Urinalysis, multiple abnormalities. Blood and urine cultures in process. MRSA screen also processed, has a wound culture. RADIOLOGY: Abdomen and pelvic CT and chest x-ray taken together showed atelectasis, anasarca, distal esophageal wall thickening. Foot x-ray, 4th metatarsal osteomyelitis and periosteal reaction with neuropathic changes. ASSESSMENT: 1. Chronic osteomyelitis of the right foot with acute exacerbation, now on therapy. 2. Nausea, vomiting, diarrhea, possible C. diff infection versus other antibiotic side effect versus noninfectious cause such as uremia. 3. Diabetes mellitus. 4. Stage 3 chronic renal insufficiency. Recommendation hold piperacillin for the moment. 5. C. diff assay. 6. We will follow up and advise on any changes. Thank you very much for asking me to see her. DUSTIN CALVIN M.D. PROPERTY ANALYST PROPERTY ANALYST D I MT: [place]
[2019-07-19] MEDS: hydrALAZINE HCL 20 MG/ML VIAL 10 MG IV PUSH (20:32)
[2019-07-19] MEDS: ATORVASTATIN 40 MG TABLET 80 MG PO (20:32)
--- NOTE | 2019-07-19 20:55 | PC.NURSE ---
This patient, Pamela Bhat, was transferred to [facility] on 07/19/19 at 2030. Personal belongings sent with patient. Belongings list checked and signed with receiving MEDS. Report given to ROHIT WAYNE. Appropriate documentation sent with patient.
--- NOTE | 2019-07-19 21:09 | PC.NURSE ---
RECEIVED PT FROM IMU PER WHEELCHAIR. VOICES NO C/O AT PRESENT
[2019-07-20] VITALS (9 sets, daily range): BP systolic 139–186; BP diastolic 54–81; PULSE 79–100; RESP 16–24; TEMP 36.1–37.3; O2SAT 96–100
[2019-07-20] MEDS: SODIUM CHLORIDE 0.9% IV 1,000 ML 75 ML IV CONT (04:13)
[2019-07-20 05:24] LABS: Hematocrit 29.4 % (37.0-47.0); Hemoglobin 9.3 g/dL (12.0-15.0); Mean Corpuscular HGB Conc 31.6 g/dl (32-36); Mean Corpuscular Hemoglobin 30.5 pg (26-34); Mean Corpuscular Volume 96.4 fl (80-100); Mean Platelet Volume 10.2 fl (7.4-10.4); Platelet Count Result 280 k/mm3 (150-375); Red Blood Count 3.05 M/mm3 (4.2-5.4); Red Cell Distribution Width 15.3 % (11.5-14.5); White Blood Count 15.5 K/mm3 (4.5-10.0)
[2019-07-20 05:52] LABS: Blood Urea Nitrogen 52 mg/dL (7-17); Calcium 7.7 mg/dL (8.4-10.2); Carbon Dioxide 30 mmol/L (22-30); Chloride 105 mmol/L (98-107); Estimated CRCL calculation 14 ml/min; Estimated Glomerular Filt Rate 12; Glucose 199 mg/dL (65-105); Magnesium 1.9 mg/dL (1.6-2.3); Potassium 2.7 mmol/L (3.4-5.0); Sodium 141 mmol/L (137-145)
[2019-07-20] MEDS: METOCLOPRAMIDE HCL INJ 10 MG/2 ML VIAL 5 MG IV PUSH ×4 (06:13→17:22)
[2019-07-20 06:23] LABS: Glucose Point of Care 183 (65-105)
[2019-07-20] MEDS: KCL 20 MEQ/SW 100 ML 100 ML 50 MEQ IVPB (06:54)
--- NOTE | 2019-07-20 08:52 | PM.PNNEP ---
Progress Note: A&P Assessment and Plan (1) Acute kidney injury: Code(s): N17.9 - Acute kidney failure, unspecified Status: Acute Assessment and Plan: The patient has acute on chronic renal failure. Chronic renal failure is secondary to diabetes mellitus type 1 with nephropathy. Hypertensive renal disease may be playing a role. The acute component is probably related to antimicrobial use at home and allergic interstitial nephritis is a possibility. I do not believe that there is a need for renal biopsy at this point. However consideration may need to be given if there is no recovery. I note from Dr. Anthony his input that recommendation is for Zosyn to be put on hold. This will be telling. She is a poor candidate for steroids with her blood sugar situation. ATN with underlying metabolic abnormalities at presentation is a possibility as well. She is making less urine. Her creatinine is not improving. She has anasarca. Will Hep-Lock the fluid. Will give the diuretics. Will keep an eye on the magnesium as well as a potassium level which is already low. She probably needs more Potassium then administered earlier today. We will however need to be cautious in light of her advanced renal failure at this point. To the renal failure this can be addressed at a later point I explained to the patient if there is poor renal response to diuretics then dialysis may need to be contemplated sooner rather than later. At this point is asymptomatic and does not need dialytic interventions. We are hoping for recovery to baseline. We will also need to look at the patient's symptoms related to the renal failure. Prognosis guarded at this point. Check ultrasound of the kidney, adding Lasix and small dose potassium chloride, will need to watch the electrolytes, will follow. (2) CKD stage 3 due to type 1 diabetes mellitus: Code(s): E10.22 - Type 1 diabetes mellitus with diabetic chronic kidney disease; N18.3 - Chronic kidney disease, stage 3 (moderate) Status: Acute (3) Anasarca associated with disorder of kidney: Code(s): N04.9 - Nephrotic syndrome with unspecified morphologic changes Status: Acute (4) Chronic renal failure, stage 3 (moderate): Code(s): N18.3 - Chronic kidney disease, stage 3 (moderate) Status: Acute (5) Diabetic foot ulcer: Qualifiers: Diabetic foot ulcer location: midfoot Diabetes mellitus type: type 1 Laterality: left Non-pressure ulcer stage: limited to breakdown of skin Qualified Code(s): E10.621 - Type 1 diabetes mellitus with foot ulcer; L97.421 - Non-pressure chronic ulcer of left heel and midfoot limited to breakdown of skin Code(s): E11.621 - Type 2 diabetes mellitus with foot ulcer; L97.509 - Non-pressure chronic ulcer of other part of unspecified foot with unspecified severity Status: Chronic (6) HTN (hypertension): Qualifiers: Hypertension type: essential hypertension Qualified Code(s): I10 - Essential (primary) hypertension Code(s): I10 - Essential (primary) hypertension Status: Chronic (7) Acute kidney injury superimposed on chronic kidney disease: Code(s): N17.9 - Acute kidney failure, unspecified; N18.9 - Chronic kidney disease, unspecified Status: Acute (8) Hypokalemia: Code(s): E87.6 - Hypokalemia Status: Acute Subjective Date/time seen: 07/20/19 08:52 Interval history: Follow up acute on chronic renal failure: Patient feels the same, she is making less urine. She is still swollen up. Echocardiogram noted, she has a normal left ventricular systolic function with estimated ejection fraction 60-65% CT scan abdomen and pelvis without contrast at admission had shown anasarca with small pleural effusions and a small pericardial effusion there is suggestion of esophageal thickening secondary to anasarca A normal sonographic study of the gallbladder on ultrasound She presented with elevated bet
[2019-07-20] MEDS: AMLODIPINE BESYLATE 5 MG TABLET PO (08:58)
[2019-07-20] MEDS: SILVERGEL (ELTA) 45 ML 1 APPLIC TOPICAL (08:59)
[2019-07-20] MEDS: INSULIN GLARGINE (*BKC) 100 UNITS/ML 15 UNITS SUB-Q (09:29)
[2019-07-20 10:22] LABS: Glucose Point of Care 197 (65-105)
[2019-07-20] MEDS: LACTATED RINGERS 1,000 ML 150 ML IV CONT (10:24)
--- NOTE | 2019-07-20 10:25 | WPDANESEPPF ---
Anes - Initial Pre Proc Eval Procedure: Operation Date: 07/20/19 10:30 Proposed Procedures p Esophagogastroduodenoscopy - Lamont Ramirez MD Date/Time: 07/20/19 10:25 Surgeon: Chris Alvarenga MD Pre Op Diagnosis: Acute kidney injury/hyperglycemia/dehydration Patient Data Age: 43 Gender: F Height: 5 ft 5 in Weight: 81.9 kg Last Vital Signs Temp 99.1 F 07/20/19 10:00 Pulse 94 07/20/19 10:00 Resp 24 H 07/20/19 10:00 BP 186/77 H 07/20/19 10:00 Pulse Ox 98 07/20/19 10:00 Allergies Allergy/AdvReac Type Severity Reaction Status Date / Time No Known Drug Allergies Allergy Verified 07/20/19 09:56 Home Medications Medication Instructions Recorded Confirmed Type atorvastatin 80 mg PO HS 06/05/19 07/18/19 History insulin lispro 1 sliding scale dose SUBCUT 06/05/19 07/18/19 History USEASDIRECTD lisinopril 10 mg PO DAILY 06/05/19 07/18/19 History metoclopramide HCl [Reglan] 10 mg PO Q6H PRN 06/05/19 07/18/19 History pantoprazole [Protonix] 40 mg PO QAM 06/05/19 07/18/19 History acetaminophen [Mapap 650 mg PO Q4H PRN #60 tablet 06/09/19 07/18/19 Rx (acetaminophen)] amlodipine [Norvasc] 5 mg PO QAM #30 tablet 06/09/19 07/18/19 Rx glucagon (human recombinant) 1 mg IM PRN PRN #1 each 06/09/19 07/18/19 Rx [GlucaGen Diagnostic Kit] insulin aspart U-100 [Novolog 3 unit SUB-Q TID #15 ml 06/09/19 07/18/19 Rx Flexpen U-100 Insulin] insulin glargine [Basaglar KwikPen 15 unit SUB-Q DAILY #15 ml 06/09/19 07/18/19 Rx U-100 Insulin] silver [Silver-Sept] 1 applic TOPICAL DAILY #15 g 06/09/19 07/18/19 Rx Laboratory Tests 01/20/20 01/20/20 01/20/20 11:32 14:11 14:11 WBC RBC Hgb Hct MCV MCH MCHC RDW Plt Count MPV Sodium Potassium 3.2 mmol/L L mmol/L (3.4-5.0) Chloride Carbon Dioxide BUN Creatinine Estim Creat Clear Calc Estimated GFR Glucose POC Capillary Glucose 217 mg/dl H mg/dl (65-105) Hemoglobin A1c 8.2 % H % (<5.7) Calcium Magnesium 07/19/19 07/19/19 07/20/19 16:26 20:06 04:41 WBC 15.5 K/mm3 H K/mm3 (4.5-10.0) RBC 3.05 M/mm3 L M/mm3 (4.2-5.4) Hgb 9.3 g/dL L g/dL (12.0-15.0) Hct 29.4 % L % (37.0-47.0) MCV 96.4 fl fl (80-100) MCH 30.5 pg pg (26-34) MCHC 31.6 g/dl L g/dl (32-36) RDW 15.3 % H % (11.5-14.5) Plt Count 280 k/mm3 k/mm3 (150-375) MPV 10.2 fl fl (7.4-10.4) Sodium Potassium Chloride Carbon Dioxide BUN Creatinine Estim Creat Clear Calc Estimated GFR Glucose POC Capillary Glucose 267 mg/dl H mg/dl 210 mg/dl H mg/dl (65-105) (65-105) Hemoglobin A1c Calcium Magnesium 07/20/19 07/20/19 07/20/19 04:41 06:12 10:19 WBC RBC Hgb Hct MCV MCH MCHC RDW Plt Count MPV Sodium 141 mmol/L mmol/L (137-145) Potassium 2.7 mmol/L L* mmol/L (3.4-5.0) Chloride 105 mmol/L mmol/L (98-107) Carbon Dioxide 30 mmol/L mmol/L (22-30) BUN 52 mg/dL H mg/dL (7-17) Creatinine 4.10 mg/dL H mg/dL (0.7-1.0) Estim Creat Clear Calc 14 ml/min ml/min Estimated GFR 12 L (59 - ) Glucose 199 mg/dL H mg/dL (65-105) POC Capillary Glucose 183 mg/dl H mg/dl 197 mg/dl H mg/dl (65-105) (65-105) Hemoglobin A1c Calcium 7.7 mg/dL L mg/dL (8.4-10.2) Magnesium 1.9 mg/dL mg/dL (1.6-2.3)
[2019-07-20] MEDS: BENZOCAINE (*SP) 60 ML SPRAY CAN (HURRICAINE) 1 SPRAY MUCOUS MEM (10:41)
[2019-07-20 11:22] LABS: Glucose Point of Care 179 (65-105)
[2019-07-20] MEDS: FUROSEMIDE INJ 40 MG/4 ML VIAL IV PUSH ×2 (14:24→17:21)
[2019-07-20] MEDS: POTASSIUM CHLORIDE 10 MEQ TABLET.ER PO ×2 (14:24→17:22)
[2019-07-20 14:53] LABS: Blood Urea Nitrogen 52 mg/dL (7-17); Calcium 8.3 mg/dL (8.4-10.2); Carbon Dioxide 28 mmol/L (22-30); Chloride 101 mmol/L (98-107); Estimated CRCL calculation 17 ml/min; Estimated Glomerular Filt Rate 12; Glucose 205 mg/dL (65-105); Potassium 3.1 mmol/L (3.4-5.0); Sodium 138 mmol/L (137-145)
[2019-07-20 15:19] LABS: Glucose Point of Care 198 (65-105)
--- NOTE | 2019-07-20 15:35 | PM.IMPN ---
Progress Note: A&P Assessment and Plan (1) Nausea and vomiting: Qualifiers: Vomiting Intractability: intractable Vomiting type: unspecified Qualified Code(s): R11.2 - Nausea with vomiting, unspecified Code(s): R11.2 - Nausea with vomiting, unspecified Status: Acute Assessment and Plan: Has been an ongoing issue. Initially thought related to DKA but then felt related to abx. Consider gastroparesis. EGD showing Grade III reflux esophagitis. GI consulted and appreciate input. RUQ ultrasound negative. Will continue IV Reglan. Continue Protonix. (2) Reflux esophagitis: Code(s): K21.0 - Gastro-esophageal reflux disease with esophagitis Status: Acute Assessment and Plan: As above. (3) Acute kidney injury superimposed on chronic kidney disease: Code(s): N17.9 - Acute kidney failure, unspecified; N18.9 - Chronic kidney disease, unspecified Status: Acute Assessment and Plan: Creatinine is elevated at 4.10 today which is well above her normal baseline of 1.40-1.80. Most likely result of dehydration from persistent nausea and vomiting. Appreciate supply chain development manager input. Will continue to monitor. Renal US showing medical renal disease. Suspect underlying CKD from her DM. (4) Acute dehydration: Code(s): E86.0 - Dehydration Status: Acute Assessment and Plan: Result of nausea and vomiting. Lactic acid normal. IV fluids stopped. Will monitor. (5) Hypokalemia: Code(s): E87.6 - Hypokalemia Status: Acute Assessment and Plan: Potassium 2.7 this morning. IV replacement ordered. Magnesium is normal at 1.9. Continue to monitor and replace as needed. (6) Diabetes mellitus: Qualifiers: Diabetes mellitus complication status: with hyperglycemia Diabetes mellitus type: type 1 Qualified Code(s): E10.65 - Type 1 diabetes mellitus with hyperglycemia Code(s): E11.9 - Type 2 diabetes mellitus without complications Status: Chronic Assessment and Plan: A1c 8.2. Anion gap was slightly elevated in the emergency room prior to IV fluids. Patient admitted to IMU as did not appear to be in DKA at the time. Glucose reviewed on 07/20/2019 with glucose readings improved. Will continue Lantus with sliding scale insulin. Will adjust as needed. Continue diabetic diet. (7) Chronic osteomyelitis: Code(s): M86.60 - Other chronic osteomyelitis, unspecified site Status: Chronic Assessment and Plan: Does have PICC line in place. Dr Vivas consulted and IV Zosyn has been stopped. Appreciate his input. (8) Diabetic foot ulcer: Qualifiers: Diabetes mellitus type: type 1 Diabetic foot ulcer location: midfoot Laterality: left Non-pressure ulcer stage: limited to breakdown of skin Qualified Code(s): E10.621 - Type 1 diabetes mellitus with foot ulcer; L97.421 - Non-pressure chronic ulcer of left heel and midfoot limited to breakdown of skin Code(s): E11.621 - Type 2 diabetes mellitus with foot ulcer; L97.509 - Non-pressure chronic ulcer of other part of unspecified foot with unspecified severity Status: Chronic Assessment and Plan: Has been seen by wound care nurses and appreciate their input. Wound bed mostly clean with small amount of yellowish exudate. IV Zosyn has been stopped. Continue local wound care. (9) HTN (hypertension): Qualifiers: Hypertension type: essential hypertension Qualified Code(s): I10 - Essential (primary) hypertension Code(s): I10 - Essential (primary) hypertension Status: Chronic Assessment and Plan: Blood pressure reviewed on 07/20/2019 and elevated. With elevated creatinine, will continue to hold lisinopril. Will continue amlodipine. IV hydralazine available as needed. Will not over correct BP at this time to allow for renal perfusion. Will continue to monitor. Adjust treatmen
[2019-07-20] MEDS: INSULIN ASPART (*BKC) 100 UNITS/ML SUB-Q (17:28)
[2019-07-20 17:31] LABS: Glucose Point of Care 180 (65-105)
[2019-07-20 17:31] LABS: Glucose Point of Care 237 (65-105)
--- NOTE | 2019-07-20 17:58 | WPDINFPN2 ---
Progress Note: A&P Assessment and Plan (1) Chronic osteomyelitis: Code(s): M86.60 - Other chronic osteomyelitis, unspecified site Status: Chronic Assessment and Plan: 1. Chronic OM of R foot with acute exacerbation. Stable status. 2. N/V/D, at least partly due to antibiotic. C diff assay NR, and in sum I doubt C diff infection 3. DM, poor control 4. CRI REC PipTazo on hold. Due to side effects possibly due to the antibiotic, I do not plan on resuming now nor in the near future. Prognosis for avoiding BKA is guarded, and at this point is more dependent on glycemic control. Weighing risks and benefits, would not administer oral antibiotics unless acute worsening in the foot, follow over time. Ok antimotility agents. Remove PICC at discharge. Subjective Date/time seen: 07/20/19 17:58 Interval history: no vomiting at all today, still with nausea Exam Narrative: Exam Narrative: afebrile Const: General: no acute distress Eyes: General: appearance normal, both eyes and all related structures Resp: Effort & Inspection: normal respiratory effort Auscultation: clear to auscultation bilaterally Cardio: Rate: regular rate Rhythm: regular rhythm Heart sounds: no murmurs GI: Inspection: non-distended GI Palp: Yes Soft to palpation and No Tenderness to palpation present (GI) Extrem: Other: edema both distal legs, no warmth nor erythema Objective Data Vital Signs Vital Signs: Vital Signs - 24 hr 07/19/19 19:38 07/20/19 06:58 07/20/19 10:00 Temperature 36.6 C 36.1 C L 37.3 C Pulse Rate 93 86 94 Respiratory Rate 18 20 24 H Blood Pressure 171/90 H 154/66 H 186/77 H Pulse Oximetry 99 99 98 07/20/19 10:59 07/20/19 11:09 07/20/19 11:19 Temperature Pulse Rate 79 81 95 Respiratory Rate 20 18 18 Blood Pressure 139/54 L 160/62 H 167/60 H Pulse Oximetry 98 96 99 07/20/19 11:29 07/20/19 14:00 Temperature 36.4 C Pulse Rate 94 100 Respiratory Rate 20 16 Blood Pressure 177/69 H 185/81 H Pulse Oximetry 97 100 Intake/Output Intake/Output: Intake & Output 01/1807/18/19 07/19/19 07/20/19 23:59 23:59 23:59 23:59 Intake Total 3237 3400 2050 Output Total 1600 1 Balance 3237 1800 2049 Meds/Results Medications: Active Medications Generic Name Dose Route Start Last Admin Trade Name Freq PRN Reason Stop Dose Admin Amlodipine Besylate 5 mg 07/19/19 09:00 07/20/19 08:58 Norvasc PO 5 mg QAM JOHNSON Administration Atorvastatin Calcium 80 mg 07/18/19 21:00 07/19/19 20:32 Lipitor PO 80 mg HS JOHNSON Administration Dextrose 12.5 gm 07/18/19 18:56 Dextrose 50% Syringe IV PUSH PRN PRN Hypoglycemia Protocol Furosemide 40 mg 07/20/19 09:00 07/20/19 17:21 Lasix Inj IV PUSH 40 mg BID JOHNSON Administration Glucagon 1 mg 07/18/19 18:56 Glucagon For Inj IM PRN PRN Hypoglycemia Protocol Glucose 15 gm 07/18/19 18:56 Glutose 15 PO PRN PRN Hypoglycemia Protocol Hydralazine HCl 10 mg 07/19/19 08:55 07/19/19 20:32 Apresoline Hcl Inj IV PUSH 10 mg Q6HR PRN Administration Blood Pressure - High>160/80 Dextrose 1,000 mls @ 100 mls/hr 07/18/19 18:56 Dextrose 5% 1,000 Ml IVPB PRN PRN Hypoglycemia Protocol Lactated Ringer's 1,000 mls @ 150 mls/hr 07/20/19 09:40 07/20/19 11:18 Lr - Lactated Ringers Iv IV CONT Infused .Q6H40M JOHNSON Infusion Insulin Aspart 2 - 5 units 07/18/19 17:00 07/20/19 17:28 Novolog SUB-Q 2 units TIDWM JOHNSON Administration Protocol Insulin Glargine 15 units 07/19/19 09:00 07/20/19 09:29 Lantus SUB-Q 15 units DAILY JOHNSON Administration Lidocaine HCl 0.3 ml 07/20/19 09:37 Xylocaine 2% Local Inj INTRADERM ONCE PRN to numb area Metoclopramide HCl 5 mg 07/19/19 00:00 07/20/19 17:22 Reglan IV PUSH 5 mg Q6HR JOHNSON Administration Ondansetron HCl 4 mg 07/18/19 13:48 07/19/19 01:22 Zofran Inj IV PUS
[2019-07-20] MEDS: ATORVASTATIN 40 MG TABLET 80 MG PO (21:30)
[2019-07-20] MEDS: PANTOPRAZOLE 40 MG TABLET PO (21:30)
[2019-07-21] MEDS: METOCLOPRAMIDE HCL INJ 10 MG/2 ML VIAL 5 MG IV PUSH ×2 (00:16→06:17)
[2019-07-21 00:34] LABS: Glucose Point of Care 285 (65-105)
[2019-07-21 06:47] LABS: Hemoglobin 8.5 g/dL (12.0-15.0); Mean Corpuscular HGB Conc 31.5 g/dl (32-36); Mean Corpuscular Hemoglobin 30.4 pg (26-34); Mean Corpuscular Volume 96.4 fl (80-100); Mean Platelet Volume 10.1 fl (7.4-10.4); Platelet Count Result 233 k/mm3 (150-375); Red Cell Distribution Width 15.3 % (11.5-14.5); White Blood Count 11.4 K/mm3 (4.5-10.0)
[2019-07-21 06:59] VITALS: BP 175/61; PULSE 96; RESP 20; TEMP 36.7; O2SAT 97
[2019-07-21 06:59] LABS: Albumin Level 2.5 g/dL (3.5-5.1); Blood Urea Nitrogen 50 mg/dL (7-17); Calcium 7.8 mg/dL (8.4-10.2); Carbon Dioxide 29 mmol/L (22-30); Chloride 103 mmol/L (98-107); Estimated CRCL calculation 16 ml/min; Estimated Glomerular Filt Rate 11; Glucose 275 mg/dL (65-105); Phosphorus 4.5 mg/dL (2.5-4.5); Potassium 3.1 mmol/L (3.4-5.0); Sodium 139 mmol/L (137-145)
[2019-07-21] MEDS: POTASSIUM CHLORIDE 10 MEQ TABLET.ER PO ×2 (08:27→17:32)
[2019-07-21] MEDS: AMLODIPINE BESYLATE 5 MG TABLET PO (08:27)
[2019-07-21] MEDS: INSULIN ASPART (*BKC) 100 UNITS/ML SUB-Q ×4 (08:27→18:04)
[2019-07-21] MEDS: PANTOPRAZOLE 40 MG TABLET PO ×2 (08:27→21:04)
[2019-07-21] MEDS: FUROSEMIDE INJ 40 MG/4 ML VIAL IV PUSH ×2 (08:28→17:32)
[2019-07-21] MEDS: SILVERGEL (ELTA) 45 ML 1 APPLIC TOPICAL (08:30)
[2019-07-21] MEDS: INSULIN GLARGINE (*BKC) 100 UNITS/ML 15 UNITS SUB-Q (08:35)
[2019-07-21 08:48] LABS: Glucose Point of Care 249 (65-105)
--- NOTE | 2019-07-21 09:14 | WPDGIPROGNO ---
Progress Note: A&P Additional Plan Patient feels much better today. She is tolerating oral intake without vomiting. No longer has nausea. She states diarrhea has lessened dramatically. Physical exam reveals Vital Signs stable. HEENT exam unremarkable. She is anicteric. Lungs are clear. Abdomen is soft nontender with no organomegaly. Some swelling remains in her ankle. Laboratory reveals WBC 11.4. Hemoglobin 8.5. Creatinine 4.3. Stool cultures negative for C difficile. Impression 1. Erosive esophagitis. This is documented by EGD. Most consistent with her recent vomiting. Could represent underlying GE reflux disease. Plan is to continue PPI therapy post discharge. [place] diet encouraged. Follow-up EGD in 2 months because of severity of esophagitis. 2. Diarrhea. This is improving dramatically. No signs of infectious etiology at this time. Supportive care only at this time. Plan for early discharge when electrolytes are stable. Continue PPI post discharge. Follow-up EGD in 2 months encourage. Advance to bland diet. Subjective Date/time seen: 07/21/19 09:14 Objective Data Vital Signs Vital Signs: Vital Signs - 24 hr 07/20/19 10:00 07/20/19 10:59 07/20/19 11:09 Temperature 37.3 C Pulse Rate 94 79 81 Respiratory Rate 24 H 20 18 Blood Pressure 186/77 H 139/54 L 160/62 H Pulse Oximetry 98 98 96 07/20/19 11:19 07/20/19 11:29 07/20/19 14:00 Temperature 36.4 C Pulse Rate 95 94 100 Respiratory Rate 18 20 16 Blood Pressure 167/60 H 177/69 H 185/81 H Pulse Oximetry 99 97 100 07/20/19 20:00 07/20/19 22:00 07/21/19 06:59 Temperature 36.2 C L 36.2 C L 36.7 C Pulse Rate 95 95 96 Respiratory Rate 21 H 21 H 20 Blood Pressure 152/80 H 152/80 H 175/61 H Pulse Oximetry 100 100 97 Intake/Output Intake/Output: Intake & Output 07/18/19 07/19/19 07/20/19 07/21/19 23:59 23:59 23:59 23:59 Intake Total 3237 3400 2300 300 Output Total 1600 1 450 Balance 3237 1800 2299 -150 Meds/Results Medications: Active Medications Generic Name Dose Route Start Last Admin Trade Name Freq PRN Reason Stop Dose Admin Amlodipine Besylate 5 mg 07/19/19 09:00 07/21/19 08:27 Norvasc PO 5 mg QAM JOHNSON Administration Atorvastatin Calcium 80 mg 07/18/19 21:00 07/20/19 21:30 Lipitor PO 80 mg HS JOHNSON Administration Dextrose 12.5 gm 07/18/19 18:56 Dextrose 50% Syringe IV PUSH PRN PRN Hypoglycemia Protocol Furosemide 40 mg 07/20/19 09:00 07/21/19 08:28 Lasix Inj IV PUSH 40 mg BID JOHNSON Administration Glucagon 1 mg 07/18/19 18:56 Glucagon For Inj IM PRN PRN Hypoglycemia Protocol Glucose 15 gm 07/18/19 18:56 Glutose 15 PO PRN PRN Hypoglycemia Protocol Hydralazine HCl 10 mg 07/19/19 08:55 07/19/19 20:32 Apresoline Hcl Inj IV PUSH 10 mg Q6HR PRN Administration Blood Pressure - High>160/80 Dextrose 1,000 mls @ 100 mls/hr 07/18/19 18:56 Dextrose 5% 1,000 Ml IVPB PRN PRN Hypoglycemia Protocol Insulin Aspart 2 - 5 units 07/18/19 17:00 07/21/19 08:27 Novolog SUB-Q 2 units TIDWM JOHNSON Administration Protocol Insulin Glargine 15 units 07/19/19 09:00 07/21/19 08:35 Lantus SUB-Q 15 units DAILY JOHNSON Administration Lidocaine HCl 0.3 ml 07/20/19 09:37 Xylocaine 2% Local Inj INTRADERM ONCE PRN to numb area Metoclopramide HCl 5 mg 07/19/19 00:00 07/21/19 06:17 Reglan IV PUSH 5 mg Q6HR JOHNSON Administration Ondansetron HCl 4 mg 07/18/19 13:48 07/19/19 01:22 Zofran Inj IV PUSH 4 mg Q4H PRN Administration Nausea Pantoprazole Sodium 40 mg 07/20/19 21:00 07/21/19 08:27 Protonix PO 40 mg Q12HR JOHNSON Administration Potassium Chloride 10 meq 07/20/19 09:00 07/21/19 08:27 Kcl Tablet PO 10 meq BIDWM JOHNSON Administration Silver Nitrate 1 applic 07/19/19 09:00 07/21/19 08:30 Silvergel TOPICAL 1 applic DAILY JOHNSON
--- NOTE | 2019-07-21 11:33 | PM.IMPN ---
Progress Note: A&P Assessment and Plan (1) Nausea and vomiting: Qualifiers: Vomiting Intractability: intractable Vomiting type: unspecified Qualified Code(s): R11.2 - Nausea with vomiting, unspecified Code(s): R11.2 - Nausea with vomiting, unspecified Status: Acute Assessment and Plan: Has been an ongoing issue. Initially thought related to DKA but then felt related to abx. Consider gastroparesis. EGD showing Grade III reflux esophagitis. GI consulted and appreciate their input. RUQ ultrasound negative. Diet advanced and she is tolerating well. Will wean Reglan as toelrated. Continue Protonix. Will need outpatint followup for EGD. (2) Reflux esophagitis: Code(s): K21.0 - Gastro-esophageal reflux disease with esophagitis Status: Acute Assessment and Plan: As above. (3) Acute kidney injury superimposed on chronic kidney disease: Code(s): N17.9 - Acute kidney failure, unspecified; N18.9 - Chronic kidney disease, unspecified Status: Acute Assessment and Plan: Creatinine is elevated at 4.30 today which is well above her normal baseline of 1.40-1.80. Renal US showing medical renal disease. Suspect underlying CKD from her DM. Most likely CHIKA a result of dehydration from persistent nausea and vomiting. Currnelt on IV Lasix. Appreciate mushroom grower input. Will continue to monitor. (4) Acute dehydration: Code(s): E86.0 - Dehydration Status: Acute Assessment and Plan: Result of nausea and vomiting. Lactic acid normal. IV fluids stopped. Will monitor. (5) Hypokalemia: Code(s): E87.6 - Hypokalemia Status: Acute Assessment and Plan: Potassium 3.1 this morning. Replacement ordered. Magnesium is normal at 1.9 yesterday. Continue to monitor and replace as needed. (6) Diabetes mellitus: Qualifiers: Diabetes mellitus complication status: with hyperglycemia Diabetes mellitus type: type 1 Qualified Code(s): E10.65 - Type 1 diabetes mellitus with hyperglycemia Code(s): E11.9 - Type 2 diabetes mellitus without complications Status: Chronic Assessment and Plan: A1c 8.2. Anion gap was slightly elevated in the emergency room prior to IV fluids. Patient admitted to IMU as did not appear to be in DKA at the time. Glucose reviewed on 07/21/2019. Glucose levels mre elevated as she starts to eat better. Will continue Lantus with sliding scale insulin. Add back meal time insulin. Change to a diabetic diet. (7) Chronic osteomyelitis: Code(s): M86.60 - Other chronic osteomyelitis, unspecified site Status: Chronic Assessment and Plan: Does have PICC line in place. Dr Vivas consulted and IV Zosyn has been stopped. Appreciate his input. Remove PICC? (8) Diabetic foot ulcer: Qualifiers: Diabetes mellitus type: type 1 Diabetic foot ulcer location: midfoot Laterality: left Non-pressure ulcer stage: limited to breakdown of skin Qualified Code(s): E10.621 - Type 1 diabetes mellitus with foot ulcer; L97.421 - Non-pressure chronic ulcer of left heel and midfoot limited to breakdown of skin Code(s): E11.621 - Type 2 diabetes mellitus with foot ulcer; L97.509 - Non-pressure chronic ulcer of other part of unspecified foot with unspecified severity Status: Chronic Assessment and Plan: Has been seen by wound care nurses and appreciate their input. Wound bed mostly clean with small amount of yellowish exudate. Discussed with substation operator and wound bed examined today with removal of small amount of exudate. IV Zosyn has been stopped. Continue local wound care. (9) HTN (hypertension): Qualifiers: Hypertension type: essential hypertension Qualified Code(s): I10 - Essential (primary) hypertension Code(s): I10 - Essential (primary) hypertension Status: Chronic Assessment and Plan: [place]
--- NOTE | 2019-07-21 12:23 | WPDINFPN2 ---
Progress Note: A&P Assessment and Plan (1) Chronic osteomyelitis: Code(s): M86.60 - Other chronic osteomyelitis, unspecified site Status: Chronic Assessment and Plan: 1. Chronic OM of R foot with acute exacerbation. Stable status. 2. N/V/D, at least partly due to antibiotic. C diff assay NR, and in sum I doubt C diff infection 3. DM, poor control 4. CRI REC NO further antibiotics anticipated, pull PICC at discharge. F/U with me in office. Subjective Date/time seen: 07/21/19 12:23 Interval history: no vomiting. Nausea slight. Diarrhea is abating but not gone Exam Narrative: Exam Narrative: afebrile Const: General: no acute distress Extrem: Other: left foot with partial thickness ulcer, no pus no erythema no tenderness Objective Data Vital Signs Vital Signs: Vital Signs - 24 hr 07/20/19 14:00 07/20/19 20:00 07/20/19 22:00 Temperature 36.4 C 36.2 C L 36.2 C L Pulse Rate 100 95 95 Respiratory Rate 16 21 H 21 H Blood Pressure 185/81 H 152/80 H 152/80 H Pulse Oximetry 100 100 100 07/21/19 06:59 Temperature 36.7 C Pulse Rate 96 Respiratory Rate 20 Blood Pressure 175/61 H Pulse Oximetry 97 Intake/Output Intake/Output: Intake & Output 07/18/19 07/19/19 07/20/19 07/21/19 23:59 23:59 23:59 23:59 Intake Total 3237 3400 2300 780 Output Total 1600 1 450 Balance 3237 1800 2299 330 Meds/Results Medications: Active Medications Generic Name Dose Route Start Last Admin Trade Name Freq PRN Reason Stop Dose Admin Amlodipine Besylate 5 mg 07/19/19 09:00 07/21/19 08:27 Norvasc PO 5 mg QAM JOHNSON Administration Atorvastatin Calcium 80 mg 07/18/19 21:00 07/20/19 21:30 Lipitor PO 80 mg HS JOHNSON Administration Dextrose 12.5 gm 07/18/19 18:56 Dextrose 50% Syringe IV PUSH PRN PRN Hypoglycemia Protocol Furosemide 40 mg 07/20/19 09:00 07/21/19 08:28 Lasix Inj IV PUSH 40 mg BID JOHNSON Administration Glucagon 1 mg 07/18/19 18:56 Glucagon For Inj IM PRN PRN Hypoglycemia Protocol Glucose 15 gm 07/18/19 18:56 Glutose 15 PO PRN PRN Hypoglycemia Protocol Hydralazine HCl 10 mg 07/19/19 08:55 07/19/19 20:32 Apresoline Hcl Inj IV PUSH 10 mg Q6HR PRN Administration Blood Pressure - High>160/80 Dextrose 1,000 mls @ 100 mls/hr 07/18/19 18:56 Dextrose 5% 1,000 Ml IVPB PRN PRN Hypoglycemia Protocol Insulin Aspart 2 - 5 units 07/18/19 17:00 07/21/19 08:27 Novolog SUB-Q 2 units TIDWM JOHNSON Administration Protocol Insulin Aspart 3 units 07/21/19 12:00 Novolog SUB-Q 08/20/19 12:01 TIDWM JOHNSON Insulin Glargine 15 units 07/19/19 09:00 07/21/19 08:35 Lantus SUB-Q 15 units DAILY JOHNSON Administration Lidocaine HCl 0.3 ml 07/20/19 09:37 Xylocaine 2% Local Inj INTRADERM ONCE PRN to numb area Metoclopramide HCl 5 mg 07/21/19 16:30 Reglan PO ACHS JOHNSON Ondansetron HCl 4 mg 07/18/19 13:48 07/19/19 01:22 Zofran Inj IV PUSH 4 mg Q4H PRN Administration Nausea Pantoprazole Sodium 40 mg 07/20/19 21:00 07/21/19 08:27 Protonix PO 40 mg Q12HR JOHNSON Administration Potassium Chloride 10 meq 07/20/19 09:00 07/21/19 08:27 Kcl Tablet PO 10 meq BIDWM JOHNSON Administration Silver Nitrate 1 applic 07/19/19 09:00 07/21/19 08:30 Silvergel TOPICAL 1 applic DAILY JOHNSON Administration Radiology Results: ITS Impressions Chest X-Ray 07/18/19 10:50 IMPRESSION: 1. PICC tip in the superior vena cava. 2. Mild atelectasis at right lung base. Abdomen/Pelvis CT 07/18/19 11:32 IMPRESSION: 1. Anasarca including small pleural effusions and small pericardial effusion. 2. Wall thickening of the distal esophagus, which may be interstitial edema or esophagitis. Foot X-Ray 07/18/19 13:12 IMPRESSION: 1. Osteomyelitis involving the fourth metatarsal. 2. Periosteal reaction of the second thr
[2019-07-21 12:31] LABS: Glucose Point of Care 242 (65-105)
[2019-07-21 14:00] VITALS: BP 166/73; PULSE 98; RESP 18; TEMP 36.8; O2SAT 100
[2019-07-21] MEDS: METOCLOPRAMIDE HCL 5 MG TABLET PO ×2 (17:32→21:04)
--- NOTE | 2019-07-21 17:49 | PM.PNNEP ---
Progress Note: A&P Assessment and Plan (1) Acute kidney injury: Code(s): N17.9 - Acute kidney failure, unspecified Status: Acute Assessment and Plan: The patient has chronic kidney disease due to diabetes and hypertension. She has acute kidney injury. This is in the setting of osteomyelitis an antibiotic usage. She is not toxic looking, her white count is not very elevated, and no fevers. She came in the hospital with dehydration and dka so may have had atn and still in the pre-recovery phase. she has itching and has gema changes in her skin. she has no peripheral eosinophilia. she she could have allergic interstitial nephritis. If so it is probably due to the antibiotics; pantoprazole could do this as well and she was on this before admission. I wonder if an H2 jaye might be a reasonable option. The antibiotics have been discontinued. I agree that steroids would be risky because of the open wound and recent osteomyelitis. So far the creatinine has not improved. If this is ATN then hopefully there will be some improvement soon. We can check a renal scan to see if there is uptake without excretion. If this is allergic interstitial nephritis then the improvement might be more gradual. This is all happening on significant chronic kidney disease and so there may not be complete recovery to her former baseline. Volume is an issue. She continues to have swelling. She may end up needing dialysis if she does not respond to diuretics soon. (2) CKD stage 3 due to type 1 diabetes mellitus: Code(s): E10.22 - Type 1 diabetes mellitus with diabetic chronic kidney disease; N18.3 - Chronic kidney disease, stage 3 (moderate) Status: Acute (3) Anasarca associated with disorder of kidney: Code(s): N04.9 - Nephrotic syndrome with unspecified morphologic changes Status: Acute Assessment and Plan: She is on diuretics now. Amlodipine can make this worse. We will stop this. We can try diltiazem which decrease his proteinuria and does not cause swelling. (4) Chronic renal failure, stage 3 (moderate): Code(s): N18.3 - Chronic kidney disease, stage 3 (moderate) Status: Acute (5) Diabetic foot ulcer: Qualifiers: Diabetic foot ulcer location: midfoot Diabetes mellitus type: type 1 Laterality: left Non-pressure ulcer stage: limited to breakdown of skin Qualified Code(s): E10.621 - Type 1 diabetes mellitus with foot ulcer; L97.421 - Non-pressure chronic ulcer of left heel and midfoot limited to breakdown of skin Code(s): E11.621 - Type 2 diabetes mellitus with foot ulcer; L97.509 - Non-pressure chronic ulcer of other part of unspecified foot with unspecified severity Status: Chronic Assessment and Plan: Getting local wound care. Dr. anna is on the case (6) HTN (hypertension): Qualifiers: Hypertension type: essential hypertension Qualified Code(s): I10 - Essential (primary) hypertension Code(s): I10 - Essential (primary) hypertension Status: Chronic Assessment and Plan: Blood pressure is a little high. Switching antihypertensives. (7) Acute kidney injury superimposed on chronic kidney disease: Code(s): N17.9 - Acute kidney failure, unspecified; N18.9 - Chronic kidney disease, unspecified Status: Acute (8) Hypokalemia: Code(s): E87.6 - Hypokalemia Status: Acute Assessment and Plan: Will add spironolactone. Subjective Date/time seen: 07/21/19 17:49 Interval history: The patient has chronic kidney disease. She has been seeing Dr. Forbes for the past few months. It is felt to be due to diabetes and hypertension. She was admitted with a creatinine of around 4 and has had stable numbers since then. She itches. Mostly on her back. She is not short of breath. She is eating okay. She is very swollen and this is gradually worse. She is not making much urine. Jovani
[2019-07-21 17:51] LABS: Glucose Point of Care 179 (65-105)
[2019-07-21 20:00] VITALS: BP 166/76; PULSE 105; RESP 20; TEMP 36.2; O2SAT 100
[2019-07-21] MEDS: ATORVASTATIN 40 MG TABLET 80 MG PO (21:04)
[2019-07-21 21:23] LABS: Creatine Kinase 58 U/L (30-135)
[2019-07-22 04:05] LABS: Glucose Point of Care 193 (65-105)
[2019-07-22 05:56] VITALS: BP 152/73; PULSE 95; RESP 18; TEMP 37.4; O2SAT 99
[2019-07-22 06:48] LABS: Basophils Percent Auto 0.2 % (0.2-1.2); Eosinophils Absolute Auto 0.3 K/mm3 (0-0.3); Eosinophils Percent Auto 2.5 % (0-4.4); Hematocrit 25.9 % (37.0-47.0); Hemoglobin 8.2 g/dL (12.0-15.0); Immature Granulocyte Absolute 0.09 K/mm3 (0.00-0.031); Immature Granulocyte Percent A 0.7 % (0-0.5); Lymphocytes Absolute Auto 2.25 K/mm3 (0.9-3.2); Lymphocytes Percent Auto 17.8 % (18.3-44.2); Mean Corpuscular HGB Conc 31.7 g/dl (32-36); Mean Corpuscular Hemoglobin 29.9 pg (26-34); Mean Corpuscular Volume 94.5 fl (80-100); Mean Platelet Volume 10.2 fl (7.4-10.4); Monocytes Absolute Auto 0.8 K/mm3 (0.1-0.6); Monocytes Percent Auto 6.6 % (2.6-8.5); Neutrophils Absolute Auto 9.1 K/mm3 (1.3-6.7); Neutrophils Percent Auto 72.2 % (45.5-73.1); Platelet Count Result 233 k/mm3 (150-375); Red Blood Count 2.74 M/mm3 (4.2-5.4); Red Cell Distribution Width 15.2 % (11.5-14.5); White Blood Count 12.6 K/mm3 (4.5-10.0)
[2019-07-22 07:02] LABS: Albumin Level 2.5 g/dL (3.5-5.1); Blood Urea Nitrogen 56 mg/dL (7-17); Calcium 7.7 mg/dL (8.4-10.2); Carbon Dioxide 28 mmol/L (22-30); Chloride 100 mmol/L (98-107); Estimated CRCL calculation 17 ml/min; Estimated Glomerular Filt Rate 11; Glucose 255 mg/dL (65-105); Magnesium 1.8 mg/dL (1.6-2.3); Phosphorus 4.6 mg/dL (2.5-4.5); Potassium 3.7 mmol/L (3.4-5.0); Sodium 137 mmol/L (137-145)
--- NOTE | 2019-07-22 07:10 | WPDGIPROGNO ---
Progress Note: A&P Additional Plan Patient alert this morning. Tolerating diet. She does notice some discomfort on swallowing. Physical exam reveals her to be alert. Comfortable at rest. Lungs are clear. Heart without murmur. Abdomen is soft and nontender this morning. Hemoglobin 8.2 is stable. WBC 12.6 has decreased. Impression 1. Erosive esophagitis. [facility] with her vomiting. She may have underlying GE reflux disease. Some delayed gastric emptying associated with diabetes can not be excluded. 2. Diabetes 3. Osteomyelitis. Plan is to advance to diabetic diet. Anti-reflux measures encouraged. Continue proton pump inhibitor. We will wean often discontinue Reglan. Subjective Date/time seen: 07/22/19 07:10 Objective Data Vital Signs Vital Signs: Vital Signs - 24 hr 07/21/19 14:00 07/21/19 20:00 07/22/19 05:56 Temperature 36.8 C 36.2 C L 37.4 C Pulse Rate 98 105 H 95 Respiratory Rate 18 20 18 Blood Pressure 166/73 H 166/76 H 152/73 H Pulse Oximetry 100 100 99 Intake/Output Intake/Output: Intake & Output 07/19/19 07/20/19 07/21/19 07/22/19 23:59 23:59 23:59 23:59 Intake Total 3400 2300 2370 300 Output Total 1600 1 1250 550 Balance 1800 2299 1120 -250 Meds/Results Medications: Active Medications Generic Name Dose Route Start Last Admin Trade Name Freq PRN Reason Stop Dose Admin Atorvastatin Calcium 80 mg 07/18/19 21:00 07/21/19 21:04 Lipitor PO 80 mg HS JOHNSON Administration Dextrose 12.5 gm 07/18/19 18:56 Dextrose 50% Syringe IV PUSH PRN PRN Hypoglycemia Protocol Diltiazem HCl 120 mg 07/21/19 21:00 07/21/19 21:04 Diltiazem Hcl 12 Hr Cap PO 120 mg Q12HR JOHNSON Administration Furosemide 40 mg 07/20/19 09:00 07/21/19 17:32 Lasix Inj IV PUSH 40 mg BID JOHNSON Administration Glucagon 1 mg 07/18/19 18:56 Glucagon For Inj IM PRN PRN Hypoglycemia Protocol Glucose 15 gm 07/18/19 18:56 Glutose 15 PO PRN PRN Hypoglycemia Protocol Hydralazine HCl 10 mg 07/19/19 08:55 07/19/19 20:32 Apresoline Hcl Inj IV PUSH 10 mg Q6HR PRN Administration Blood Pressure - High>160/80 Dextrose 1,000 mls @ 100 mls/hr 07/18/19 18:56 Dextrose 5% 1,000 Ml IVPB PRN PRN Hypoglycemia Protocol Insulin Aspart 2 - 5 units 07/18/19 17:00 07/21/19 17:35 Novolog SUB-Q Not Given TIDWM [facility] Protocol Insulin Aspart 3 units 07/21/19 12:00 07/21/19 18:04 Novolog SUB-Q 08/20/19 12:01 3 units TIDWM [facility] Administration Insulin Glargine 15 units 07/19/19 09:00 07/21/19 08:35 Lantus SUB-Q 15 units DAILY [facility] Administration Lidocaine HCl 0.3 ml 07/20/19 09:37 Xylocaine 2% Local Inj INTRADERM ONCE PRN to numb area Metoclopramide HCl 5 mg 07/21/19 16:30 07/21/19 21:04 Reglan PO 5 mg ACHS [facility] Administration Ondansetron HCl 4 mg 07/18/19 13:48 07/19/19 01:22 Zofran Inj IV PUSH 4 mg Q4H PRN Administration Nausea Pantoprazole Sodium 40 mg 07/20/19 21:00 07/21/19 21:04 Protonix PO 40 mg Q12HR J[facility]NSON Administration Potassium Chloride 10 meq 07/20/19 09:00 07/21/19 17:32 Kcl Tablet PO 10 meq BIDWM [facility] Administration Silver Nitrate 1 applic 07/19/19 09:00 07/21/19 08:30 Silvergel TOPICAL 1 applic DAILY [facility] Administration Spironolactone 25 mg 07/22/19 09:00 Aldactone PO QAM [facility] Radiology Results: ITS Impressions Chest X-Ray 07/18/19 10:50 IMPRESSION: 1. PICC tip in the superior vena cava. 2. Mild atelectasis at right lung base. Abdomen/Pelvis CT 07/18/19 11:32 IMPRESSION: 1. Anasarca including small pleural effusions and small pericardial effusion. 2. Wall thickening of the distal esophagus, which may be interstitial edema or esophagitis. Foot X-Ray 07/18/19 13:12 IMPRESSION: 1. Osteomyelitis involving the fourth metatarsal. 2. Periosteal reaction of the second thr
--- NOTE | 2019-07-22 07:36 | PM.PNNEP ---
Progress Note: A&P Assessment and Plan (1) Acute kidney injury: Code(s): N17.9 - Acute kidney failure, unspecified Status: Acute Assessment and Plan: The patient has chronic kidney disease due to diabetes and hypertension. She has acute kidney injury. This is in the setting of osteomyelitis and antibiotic usage. Etiology of the acute kidney injury is unclear. Possibilities include ATN and AIN Getting a renal scan today. Some tests are still pending. CBC shows no eosinophilia Still swollen and urine output is still suboptimal. Will add metolazone. (2) Anasarca associated with disorder of kidney: Code(s): N04.9 - Nephrotic syndrome with unspecified morphologic changes Status: Acute Assessment and Plan: She is on diuretics now. Off amlodipine and on diltiazem (3) Chronic renal failure, stage 3 (moderate): Code(s): N18.3 - Chronic kidney disease, stage 3 (moderate) Status: Acute (4) Diabetic foot ulcer: Qualifiers: Diabetic foot ulcer location: midfoot Diabetes mellitus type: type 1 Laterality: left Non-pressure ulcer stage: limited to breakdown of skin Qualified Code(s): E10.621 - Type 1 diabetes mellitus with foot ulcer; L97.421 - Non-pressure chronic ulcer of left heel and midfoot limited to breakdown of skin Code(s): E11.621 - Type 2 diabetes mellitus with foot ulcer; L97.509 - Non-pressure chronic ulcer of other part of unspecified foot with unspecified severity Status: Chronic Assessment and Plan: Getting local wound care. Dr. anna is on the case (5) HTN (hypertension): Qualifiers: Hypertension type: essential hypertension Qualified Code(s): I10 - Essential (primary) hypertension Code(s): I10 - Essential (primary) hypertension Status: Chronic Assessment and Plan: Blood pressure is 150 to today. Antihypertensives adjusted (6) Hypokalemia: Code(s): E87.6 - Hypokalemia Status: Acute Assessment and Plan: On spironolactone. Hopefully this will help diuresis. Potassium looks okay today. Subjective Date/time seen: 07/22/19 07:36 Interval history: Today the patient has a cough. She is not short of breath. She is still swollen. She made some urine yesterday. Intake/output says she made about 1L. Review of Systems Cardiovascular: Cardiovascular: Reports no additional cardiovascular complaints Respiratory: Respiratory: Reports no additional respiratory complaints Gastrointestinal: Gastrointestinal: Reports no additional gastrointestinal complaints Genitourinary: Genitourinary: Reports no additional female genitourinary complaints Exam Narrative: Exam Narrative: Well developed well-nourished in no acute distress Lungs clear with mildly decreased breath sounds at the bases Heart regular without rub Abdomen bowel sounds positive soft nontender Extremities 2+ edema Skin about the same Objective Data Vital Signs Vital Signs: Vital Signs - 24 hr 07/21/19 14:00 07/21/19 20:00 07/22/19 05:56 Temperature 36.8 C 36.2 C L 37.4 C Pulse Rate 98 105 H 95 Respiratory Rate 18 20 18 Blood Pressure 166/73 H 166/76 H 152/73 H Pulse Oximetry 100 100 99 Intake/Output Intake/Output: Intake & Output 07/19/19 07/20/19 07/21/19 07/22/19 23:59 23:59 23:59 23:59 Intake Total 3400 2300 2370 300 Output Total 1600 1 1250 550 Balance 1800 2299 1120 -250 Meds/Results Medications: Active Medications Generic Name Dose Route Start Last Admin Trade Name Freq PRN Reason Stop Dose Admin Atorvastatin Calcium 80 mg 07/18/19 21:00 07/21/19 21:04 Lipitor PO 80 mg HS JOHNSON Administration Dextrose 12.5 gm 07/18/19 18:56 Dextrose 50% Syringe IV PUSH PRN PRN Hypoglycemia Protocol Diltiazem HCl 120 mg 07/21/19 21:00 07/21/19 21:04 Diltiazem Hcl 12 Hr Cap PO 120 mg Q12HR [facility]ON Administration Furosemide 40 mg 07/01
[2019-07-22 08:44] LABS: Glucose Point of Care 252 (65-105)
[2019-07-22] MEDS: INSULIN ASPART (*BKC) 100 UNITS/ML SUB-Q ×5 (08:46→17:28)
[2019-07-22] MEDS: INSULIN GLARGINE (*BKC) 100 UNITS/ML 15 UNITS SUB-Q (08:46)
[2019-07-22] MEDS: SPIRONOLACTONE 25 MG TABLET PO (08:50)
[2019-07-22] MEDS: PANTOPRAZOLE 40 MG TABLET PO ×2 (08:50→21:16)
[2019-07-22] MEDS: POTASSIUM CHLORIDE 10 MEQ TABLET.ER PO ×2 (08:50→17:17)
[2019-07-22] MEDS: metOLazone 5 MG TABLET PO (08:50)
[2019-07-22] MEDS: FUROSEMIDE INJ 40 MG/4 ML VIAL IV PUSH ×2 (08:50→17:17)
[2019-07-22] MEDS: SILVERGEL (ELTA) 45 ML 1 APPLIC TOPICAL (08:51)
[2019-07-22] MEDS: EPOETIN ALFA 10,000 UNITS/ML VIAL 10000 UNITS SUB-Q (09:01)
--- NOTE | 2019-07-22 09:04 | PM.IMPN ---
Progress Note: A&P Assessment and Plan (1) Acute kidney injury superimposed on chronic kidney disease: Code(s): N17.9 - Acute kidney failure, unspecified; N18.9 - Chronic kidney disease, unspecified Status: Acute Assessment and Plan: Creatinine unchanged at 4.30 today which is well above her normal baseline of 1.40-1.80 in May. Renal US showing medical renal disease. Suspect underlying CKD from her DM. Most likely CHIKA a result of dehydration from persistent nausea and vomiting. AIN being considered related to the abx. Currently on IV Lasix and Metolazone added. Appreciate online editor input. Will continue to monitor. (2) Nausea and vomiting: Qualifiers: Vomiting Intractability: intractable Vomiting type: unspecified Qualified Code(s): R11.2 - Nausea with vomiting, unspecified Code(s): R11.2 - Nausea with vomiting, unspecified Status: Acute Assessment and Plan: Has been an ongoing issue. Initially thought related to DKA but then felt related to abx. Consider gastroparesis. EGD showing Grade III reflux esophagitis. GI consulted and appreciate their input. RUQ ultrasound negative. Diet advanced and she is tolerating diabetic diet well. Reglan stopped. Continue Protonix. Will need outpatient followup for EGD. (3) Reflux esophagitis: Code(s): K21.0 - Gastro-esophageal reflux disease with esophagitis Status: Acute Assessment and Plan: As above. (4) Acute dehydration: Code(s): E86.0 - Dehydration Status: Acute Assessment and Plan: Result of nausea and vomiting. Lactic acid normal. Eating better. IV fluids stopped. Will monitor. (5) Hypokalemia: Code(s): E87.6 - Hypokalemia Status: Acute Assessment and Plan: Potassium 3.7 and magnesium 1.8 this morning. Patient is on scheduled replacement. Continue to monitor and replace as needed. (6) Normocytic anemia: Code(s): D64.9 - Anemia, unspecified Status: Chronic Assessment and Plan: Hemoglobin 10.9 on admission but from there has been trending downward. Hemoglobin 8 2 today. Most likely related to her renal failure. Will check iron studies. Epogen it has been added. (7) Diabetes mellitus: Qualifiers: Diabetes mellitus complication status: with hyperglycemia Diabetes mellitus type: type 1 Qualified Code(s): E10.65 - Type 1 diabetes mellitus with hyperglycemia Code(s): E11.9 - Type 2 diabetes mellitus without complications Status: Chronic Assessment and Plan: A1c 8.2. Anion gap was slightly elevated in the emergency room prior to IV fluids. Patient admitted to IMU as did not appear to be in DKA at the time. AG has closed. Glucose reviewed on 07/22/2019. Glucose levels still elevated since she is eating better. Will continue Lantus, meal time insulin with sliding scale insulin. Will advance Lantus. Continue diabetic diet. (8) Chronic osteomyelitis: Code(s): M86.60 - Other chronic osteomyelitis, unspecified site Status: Chronic Assessment and Plan: Does have PICC line in place. Dr Vivas consulted and IV Zosyn has been stopped. Appreciate his input. Consider removing PICC. (9) Diabetic foot ulcer: Qualifiers: Diabetes mellitus type: type 1 Diabetic foot ulcer location: midfoot Laterality: left Non-pressure ulcer stage: limited to breakdown of skin Qualified Code(s): E10.621 - Type 1 diabetes mellitus with foot ulcer; L97.421 - Non-pressure chronic ulcer of left heel and midfoot limited to breakdown of skin Code(s): E11.621 - Type 2 diabetes mellitus with foot ulcer; L97.509 - Non-pressure chronic ulcer of other part of unspecified foot with unspecified severity Status: Chronic Assessment and Plan: Has been seen by wound care nurses and appreciate their input. Wound bed mostly clean since mild debridement. IV Zosy
[2019-07-22 13:09] LABS: Glucose Point of Care 221 (65-105)
[2019-07-22 13:34] VITALS: BMI 31.5
[2019-07-22 14:00] VITALS: BP 159/66; PULSE 97; RESP 16; TEMP 36.7; O2SAT 96
[2019-07-22] MEDS: ONDANSETRON INJ 4 MG/2 ML VIAL IV PUSH (17:18)
[2019-07-22 17:53] LABS: Glucose Point of Care 197 (65-105)
[2019-07-22] MEDS: ATORVASTATIN 40 MG TABLET 80 MG PO (21:16)
[2019-07-22 22:00] VITALS: BP 159/62; PULSE 94; RESP 18; TEMP 36.6; O2SAT 96
[2019-07-23 04:10] LABS: Glucose Point of Care 183 (65-105)
[2019-07-23 06:00] VITALS: BP 169/66; PULSE 94; RESP 20; TEMP 36.7; O2SAT 98
[2019-07-23 06:28] LABS: Basophils Percent Auto 0.1 % (0.2-1.2); Eosinophils Absolute Auto 0.3 K/mm3 (0-0.3); Eosinophils Percent Auto 2.2 % (0-4.4); Hematocrit 26.1 % (37.0-47.0); Hemoglobin 8.3 g/dL (12.0-15.0); Immature Granulocyte Absolute 0.13 K/mm3 (0.00-0.031); Immature Granulocyte Percent A 0.9 % (0-0.5); Lymphocytes Absolute Auto 2.93 K/mm3 (0.9-3.2); Lymphocytes Percent Auto 19.9 % (18.3-44.2); Mean Corpuscular HGB Conc 31.8 g/dl (32-36); Mean Corpuscular Hemoglobin 30.3 pg (26-34); Mean Corpuscular Volume 95.3 fl (80-100); Mean Platelet Volume 10.1 fl (7.4-10.4); Monocytes Percent Auto 7.1 % (2.6-8.5); Neutrophils Absolute Auto 10.3 K/mm3 (1.3-6.7); Neutrophils Percent Auto 69.8 % (45.5-73.1); Platelet Count Result 235 k/mm3 (150-375); Red Blood Count 2.74 M/mm3 (4.2-5.4); Red Cell Distribution Width 15.5 % (11.5-14.5); White Blood Count 14.8 K/mm3 (4.5-10.0)
[2019-07-23 06:39] LABS: Albumin Level 2.6 g/dL (3.5-5.1); Blood Urea Nitrogen 62 mg/dL (7-17); Calcium 7.8 mg/dL (8.4-10.2); Carbon Dioxide 26 mmol/L (22-30); Chloride 101 mmol/L (98-107); Estimated CRCL calculation 17 ml/min; Estimated Glomerular Filt Rate 12; Glucose 223 mg/dL (65-105); Phosphorus 4.8 mg/dL (2.5-4.5); Potassium 3.4 mmol/L (3.4-5.0); Sodium 136 mmol/L (137-145)
[2019-07-23 07:30] LABS: Iron 35 ug/dL (37-170)
[2019-07-23 07:39] LABS: Percent Iron Saturation 19 % (20-50)
[2019-07-23] MEDS: INSULIN GLARGINE (*BKC) 100 UNITS/ML 18 UNITS SUB-Q (08:28)
[2019-07-23] MEDS: INSULIN ASPART (*BKC) 100 UNITS/ML SUB-Q ×6 (08:28→17:39)
[2019-07-23] MEDS: SPIRONOLACTONE 25 MG TABLET PO (08:32)
[2019-07-23] MEDS: POTASSIUM CHLORIDE 10 MEQ TABLET.ER PO ×2 (08:32→17:39)
[2019-07-23] MEDS: metOLazone 5 MG TABLET PO (08:32)
[2019-07-23] MEDS: PANTOPRAZOLE 40 MG TABLET PO ×2 (08:33→20:47)
[2019-07-23] MEDS: FUROSEMIDE INJ 40 MG/4 ML VIAL IV PUSH ×2 (08:33→17:39)
[2019-07-23] MEDS: SILVERGEL (ELTA) 45 ML 1 APPLIC TOPICAL (08:33)
[2019-07-23 08:40] LABS: Folic Acid 6.2 ng/mL (2.76->20)
--- NOTE | 2019-07-23 09:04 | WPDGIPROGNO ---
Progress Note: A&P Additional Plan Patient alert and comfortable this morning. She states she no longer has much difficulty on eating. Substernal burning has subsided to a great degree. She does note continued swelling. Physical exam reveals her abdomen to be soft nontender with no organomegaly. Laboratory testing reveals WBC 14.8. Hemoglobin 8.3. Creatinine 4.1 Impression 1. Erosive esophagitis. Clinically improving on PPI. Reglan has now been discontinued. Patient may be predisposed to vomiting and reflux with her diabetes. Delayed gastric emptying is likely. Plan is to continue anti-reflux measures. Elevate head of bed at night. [place] foods. Continue PPI after discharge. Follow-up EGD in 2 months is advised. 2. Diabetes mellitus. 3. Chronic kidney disease. Azotemia may contribute to her nausea and fluid retention. 4. Recent osteomyelitis. Plan is for EGD in several months as an outpatient. Continue PPI. Discharge when stable from primary care criteria. Subjective Date/time seen: 07/23/19 09:04 Objective Data Vital Signs Vital Signs: Vital Signs - 24 hr 07/22/19 14:00 07/22/19 22:00 07/23/19 06:00 Temperature 36.7 C 36.6 C 36.7 C Pulse Rate 97 94 94 Respiratory Rate 16 18 20 Blood Pressure 159/66 H 159/62 H 169/66 H Pulse Oximetry 96 96 98 Intake/Output Intake/Output: Intake & Output 07/20/19 07/21/19 07/22/19 07/23/19 23:59 23:59 23:59 23:59 Intake Total 2300 2370 2240 500 Output Total 1 1250 1050 400 Balance 2299 1120 1190 100 Meds/Results Medications: Active Medications Generic Name Dose Route Start Last Admin Trade Name Freq PRN Reason Stop Dose Admin Atorvastatin Calcium 80 mg 07/18/19 21:00 07/22/19 21:16 Lipitor PO 80 mg HS JOHNSON Administration Dextrose 12.5 gm 07/18/19 18:56 Dextrose 50% Syringe IV PUSH PRN PRN Hypoglycemia Protocol Diltiazem HCl 120 mg 07/21/19 21:00 07/23/19 08:32 Diltiazem Hcl 12 Hr Cap PO 120 mg Q12HR [facility] Administration Epoetin [place] 10,000 units 07/22/19 07:40 07/22/19 09:01 Epogen SUB-Q 10,000 units TUTHSA JOHNSON Administration Furosemide 40 mg 07/20/19 09:00 07/23/19 08:33 Lasix Inj IV PUSH 40 mg BID [facility]ON Administration Glucagon 1 mg 07/18/19 18:56 Glucagon For Inj IM PRN PRN Hypoglycemia Protocol Glucose 15 gm 07/18/19 18:56 Glutose 15 PO PRN PRN Hypoglycemia Protocol Hydralazine HCl 10 mg 07/19/19 08:55 07/19/19 20:32 Apresoline Hcl Inj IV PUSH 10 mg Q6HR PRN Administration Blood Pressure - High>160/80 Dextrose 1,000 mls @ 100 mls/hr 07/18/19 18:56 Dextrose 5% 1,000 Ml IVPB PRN PRN Hypoglycemia Protocol Insulin Aspart 2 - 5 units 07/18/19 17:00 07/23/19 08:28 Novolog SUB-Q 2 units TIDWM [facility] Administration Protocol Insulin Aspart 4 units 07/22/19 09:39 07/23/19 08:28 Novolog SUB-Q 08/20/19 12:01 4 units TIDWM [facility] Administration Insulin Glargine 18 units 07/22/19 09:39 07/23/19 08:28 Lantus SUB-Q 18 units DAILY [facility] Administration Lidocaine HCl 0.3 ml 07/20/19 09:37 Xylocaine 2% Local Inj INTRADERM ONCE PRN to numb area Metolazone 5 mg 07/22/19 09:00 07/23/19 08:32 Zaroxolyn PO 5 mg QAM [facility] Administration Ondansetron HCl 4 mg 07/18/19 13:48 07/22/19 17:18 Zofran Inj IV PUSH 4 mg Q4H PRN Administration Nausea Pantoprazole Sodium 40 mg 07/20/19 21:00 07/23/19 08:33 Protonix PO 40 mg Q12HR JOHNSON Administration Potassium Chloride 10 meq 07/20/19 09:00 07/23/19 08:32 Kcl Tablet PO 10 meq BIDWM [facility] Administration Silver Nitrate 1 applic 07/19/19 09:00 07/23/19 08:33 Silvergel TOPICAL 1 applic DAILY [facility] Administration Spironolactone 25 mg 07/22/19 09:00 07/23/19 08:32 Aldactone PO 25 mg QAM J[facility]NSON Administration Radiology Results: ITS Impressions Abdomen/Pelvis CT 07/18/19 11:32
[2019-07-23 09:13] LABS: Glucose Point of Care 239 (65-105)
--- NOTE | 2019-07-23 09:48 | PM.IMPN ---
Progress Note: A&P Assessment and Plan (1) Acute kidney injury superimposed on chronic kidney disease: Code(s): N17.9 - Acute kidney failure, unspecified; N18.9 - Chronic kidney disease, unspecified Status: Acute Assessment and Plan: Creatinine relatively stable at 4.1 today which is well above her normal baseline of 1.40-1.80 in May. Renal US showing medical renal disease. Suspect underlying CKD from her DM. Most likely CHIKA a result of dehydration from persistent nausea and vomiting. AIN being considered related to the abx. Albumin 2.6 today. UA showing 3+ protein, >75RBC and >75WBC. UCx growing Yeast. Currently on IV Lasix and Metolazone added. Continue Spirolnolactone. Appreciate physical chemist input. Will continue to monitor. Defer to ID about the possible treatment of the funguria. (2) Nausea and vomiting: Qualifiers: Vomiting Intractability: intractable Vomiting type: unspecified Qualified Code(s): R11.2 - Nausea with vomiting, unspecified Code(s): R11.2 - Nausea with vomiting, unspecified Status: Acute Assessment and Plan: Has been an ongoing issue. Initially thought related to DKA but then felt related to abx. Consider gastroparesis. EGD showing Grade III reflux esophagitis. GI consulted and appreciate their input. RUQ ultrasound negative. Diet advanced and she is tolerating diabetic diet well. Reglan stopped without issue. Continue Protonix. Will need outpatient followup for EGD. (3) Reflux esophagitis: Code(s): K21.0 - Gastro-esophageal reflux disease with esophagitis Status: Acute Assessment and Plan: As above. (4) Hypokalemia: Code(s): E87.6 - Hypokalemia Status: Acute Assessment and Plan: Potassium 3.4 this morning. Patient is on scheduled replacement. Continue to monitor and replace as needed. (5) Normocytic anemia: Code(s): D64.9 - Anemia, unspecified Status: Chronic Assessment and Plan: Hemoglobin 10.9 on admission but from there has been trending downward. Hemoglobin 8 3 today and stable. Most likely related to her renal failure. Iron studies noted. Epogen has been added. (6) Diabetes mellitus: Qualifiers: Diabetes mellitus complication status: with hyperglycemia Diabetes mellitus type: type 1 Qualified Code(s): E10.65 - Type 1 diabetes mellitus with hyperglycemia Code(s): E11.9 - Type 2 diabetes mellitus without complications Status: Chronic Assessment and Plan: A1c 8.2. Anion gap was slightly elevated in the emergency room prior to IV fluids. Patient admitted to IMU as did not appear to be in DKA at the time. AG has closed. Glucose reviewed on 07/23/2019. Glucose levels still elevated this morning but just received the increased Lantus dose this mornig so will see how her glucose does next 24hrs. She is eating better. Will continue Lantus, meal time insulin with sliding scale insulin. Continue diabetic diet. (7) Chronic osteomyelitis: Code(s): M86.60 - Other chronic osteomyelitis, unspecified site Status: Chronic Assessment and Plan: Does have PICC line in place. Dr Vivas consulted and IV Zosyn has been stopped. Appreciate his input. Consider removing PICC. (8) Diabetic foot ulcer: Qualifiers: Diabetes mellitus type: type 1 Diabetic foot ulcer location: midfoot Laterality: left Non-pressure ulcer stage: limited to breakdown of skin Qualified Code(s): E10.621 - Type 1 diabetes mellitus with foot ulcer; L97.421 - Non-pressure chronic ulcer of left heel and midfoot limited to breakdown of skin Code(s): E11.621 - Type 2 diabetes mellitus with foot ulcer; L97.509 - Non-pressure chronic ulcer of other part of unspecified foot with unspecified severity Status: Chronic Assessment and Plan: Has been seen by wound care nurses and appreciate their input. Wound bed mostly fran
--- NOTE | 2019-07-23 12:06 | PM.PNNEP ---
Progress Note: A&P Assessment and Plan (1) Acute kidney injury: Code(s): N17.9 - Acute kidney failure, unspecified Status: Acute Assessment and Plan: The patient has chronic kidney disease due to diabetes and hypertension. She has acute kidney injury. This is in the setting of osteomyelitis and antibiotic usage. Urine electrolytes are non pre renal Renal ultrasound shows medical renal disease consistent with her chronic kidney disease Renal scan shows uptake without excretion This sounds like acute tubular necrosis. Still swollen and urine output is still suboptimal. I discussed with her how to manage this at length. We will watch over the weekend and if no better on Friday we can start dialysis on Friday. I am hoping for turn around in renal function since her infection is under better control. If there is a component of interstitial nephritis then this may improve as well since she is off the antibiotics. (2) Anasarca associated with disorder of kidney: Code(s): N04.9 - Nephrotic syndrome with unspecified morphologic changes Status: Acute Assessment and Plan: She is on diuretics x3 Off amlodipine BP is a bit high. I do not want to over control but I would like to blood pressure between 140 and 160. Will increase diltiazem to 180 b.i.d. (3) Chronic renal failure, stage 3 (moderate): Code(s): N18.3 - Chronic kidney disease, stage 3 (moderate) Status: Acute (4) Diabetic foot ulcer: Qualifiers: Diabetic foot ulcer location: midfoot Diabetes mellitus type: type 1 Laterality: left Non-pressure ulcer stage: limited to breakdown of skin Qualified Code(s): E10.621 - Type 1 diabetes mellitus with foot ulcer; L97.421 - Non-pressure chronic ulcer of left heel and midfoot limited to breakdown of skin Code(s): E11.621 - Type 2 diabetes mellitus with foot ulcer; L97.509 - Non-pressure chronic ulcer of other part of unspecified foot with unspecified severity Status: Chronic Assessment and Plan: Getting local wound care. Dr. anna is on the case (5) HTN (hypertension): Qualifiers: Hypertension type: essential hypertension Qualified Code(s): I10 - Essential (primary) hypertension Code(s): I10 - Essential (primary) hypertension Status: Chronic Assessment and Plan: Blood pressure is 150 to today. Antihypertensives adjusted (6) Hypokalemia: Code(s): E87.6 - Hypokalemia Status: Acute Assessment and Plan: On spironolactone. Potassium looks okay today. Subjective Date/time seen: 07/23/19 12:07 Interval history: Today the patient has a cough. She is not short of breath. She is still swollen. no nausea, vomiting, and eating okay Review of Systems Cardiovascular: Cardiovascular: Reports no additional cardiovascular complaints Respiratory: Respiratory: Reports no additional respiratory complaints Gastrointestinal: Gastrointestinal: Reports no additional gastrointestinal complaints Genitourinary: Genitourinary: Reports no additional female genitourinary complaints Exam Narrative: Exam Narrative: Well developed well-nourished in no acute distress Lungs clear with mildly decreased breath sounds at the bases Heart regular without rub or gallop Abdomen bowel sounds positive soft nontender Extremities 2+ edema no cyanosis Skin no acute rash Objective Data Vital Signs Vital Signs: Vital Signs - 24 hr 07/22/19 14:00 07/22/19 22:00 07/23/19 06:00 Temperature 36.7 C 36.6 C 36.7 C Pulse Rate 97 94 94 Respiratory Rate 16 18 20 Blood Pressure 159/66 H 159/62 H 169/66 H Pulse Oximetry 96 96 98 Intake/Output Intake/Output: Intake & Output 07/20/19 07/21/19 07/22/19 07/23/19 23:59 23:59 23:59 23:59 Intake Total 2300 2370 2240 500 Output Total 1 1250 1050 400 Balance 2299 1120 1190 100 Meds/Results Medications: Active Medications Generic Name Dose Route
[2019-07-23] MEDS: POTASSIUM CHLORIDE 10 MEQ TABLET PO (12:24)
[2019-07-23 12:32] LABS: Glucose Point of Care 207 (65-105)
[2019-07-23 14:00] VITALS: BP 138/65; PULSE 88; RESP 18; TEMP 36.3; O2SAT 99
[2019-07-23 14:53] LABS: Creatine Kinase 45 U/L (30-135)
[2019-07-23 15:03] LABS: Complement C3 114 mg/dL (88-165)
[2019-07-23 15:24] LABS: Erythrocyte Sedimentation Rate > 140 mm/hr (0-20)
[2019-07-23 15:48] LABS: Creatinine Urine 63.9 mg/dL
[2019-07-23 15:50] LABS: Sodium Urine Random 73 meq/L
[2019-07-23 15:55] LABS: Total Protein Urine Random 328 mg/dL
[2019-07-23 16:21] LABS: Add Urine Microscopic? YES; Appearance Urine Cloudy (Clear); Bilirubin Urine Negative (Negative); Blood Urine 1+ (Negative); Budding Yeast Urine Present /hpf; Color Urine Yellow (Yellow); Glucose Urine UA 1+ mg/dL (Negative); Ketones Urine Negative (Negative); Leukocyte Esterase Ur 1+ LEU/UL (NEGATIVE); Mucus Urine Rare /lpf; Nitrate Urine Negative (Negative); Protein Urine 3+ mg/dL (Negative); Specific Grav Ur 1.011 (1.001-1.035); Squamous Epithelial Cell Urine Many /hpf (Few); Urobilinogen Urine Negative mg/dL (<2.0); WBC Clumps Urine Present /HPF; WBC Urine 31-50 /hpf (0-3)
[2019-07-23 17:52] LABS: Glucose Point of Care 264 (65-105)
[2019-07-23] MEDS: ATORVASTATIN 40 MG TABLET 80 MG PO (20:46)
[2019-07-24 05:55] VITALS: BP 154/58; PULSE 94; RESP 18; TEMP 36.6; O2SAT 93
[2019-07-24 06:11] LABS: Basophils Percent Auto 0.1 % (0.2-1.2); Eosinophils Absolute Auto 0.3 K/mm3 (0-0.3); Eosinophils Percent Auto 2.3 % (0-4.4); Hematocrit 24.5 % (37.0-47.0); Hemoglobin 7.7 g/dL (12.0-15.0); Immature Granulocyte Absolute 0.11 K/mm3 (0.00-0.031); Immature Granulocyte Percent A 0.8 % (0-0.5); Lymphocytes Absolute Auto 2.69 K/mm3 (0.9-3.2); Mean Corpuscular HGB Conc 31.4 g/dl (32-36); Mean Corpuscular Hemoglobin 30.4 pg (26-34); Mean Corpuscular Volume 96.8 fl (80-100); Mean Platelet Volume 10.5 fl (7.4-10.4); Monocytes Percent Auto 7.7 % (2.6-8.5); Neutrophils Absolute Auto 9.3 K/mm3 (1.3-6.7); Neutrophils Percent Auto 69.1 % (45.5-73.1); Platelet Count Result 241 k/mm3 (150-375); Red Blood Count 2.53 M/mm3 (4.2-5.4); Red Cell Distribution Width 15.8 % (11.5-14.5); White Blood Count 13.5 K/mm3 (4.5-10.0)
[2019-07-24 06:25] LABS: Albumin Level 2.5 g/dL (3.5-5.1); Blood Urea Nitrogen 66 mg/dL (7-17); Calcium 8.1 mg/dL (8.4-10.2); Carbon Dioxide 26 mmol/L (22-30); Chloride 100 mmol/L (98-107); Estimated CRCL calculation 16 ml/min; Estimated Glomerular Filt Rate 11; Glucose 208 mg/dL (65-105); Magnesium 1.8 mg/dL (1.6-2.3); Phosphorus 5.1 mg/dL (2.5-4.5); Potassium 3.7 mmol/L (3.4-5.0); Sodium 136 mmol/L (137-145)
[2019-07-24 06:48] LABS: Glucose Point of Care 211 (65-105)
[2019-07-24] MEDS: EPOETIN ALFA 10,000 UNITS/ML VIAL 10000 UNITS SUB-Q (08:06)
[2019-07-24] MEDS: PANTOPRAZOLE 40 MG TABLET PO ×2 (08:10→20:51)
[2019-07-24] MEDS: metOLazone 5 MG TABLET PO (08:10)
[2019-07-24] MEDS: SPIRONOLACTONE 25 MG TABLET PO (08:10)
[2019-07-24] MEDS: POTASSIUM CHLORIDE 10 MEQ TABLET.ER PO ×2 (08:10→17:17)
[2019-07-24] MEDS: SILVERGEL (ELTA) 45 ML 1 APPLIC TOPICAL (08:11)
[2019-07-24] MEDS: FUROSEMIDE INJ 40 MG/4 ML VIAL IV PUSH ×2 (08:11→17:18)
[2019-07-24] MEDS: INSULIN ASPART (*BKC) 100 UNITS/ML SUB-Q ×5 (09:23→18:42)
[2019-07-24] MEDS: INSULIN GLARGINE (*BKC) 100 UNITS/ML 18 UNITS SUB-Q (09:24)
[2019-07-24 09:54] LABS: Glucose Point of Care 199 (65-105)
--- NOTE | 2019-07-24 13:45 | PM.PNNEP ---
Progress Note: A&P Assessment and Plan (1) Acute kidney injury: Code(s): N17.9 - Acute kidney failure, unspecified Status: Acute Assessment and Plan: The patient has chronic kidney disease due to diabetes and hypertension. Baseline creatinine is She has acute kidney injury. This is in the setting of osteomyelitis and antibiotic usage. Urine electrolytes are non pre renal Renal ultrasound shows medical renal disease consistent with her chronic kidney disease Renal scan shows uptake without excretion This sounds like acute tubular necrosis. Other less likely options are interstitial nephritis or glomerulonephritis. We know there is no obstruction. I doubt if infection is doing this directly in the kidneys because the patient would be more toxic. Still swollen and urine output is still suboptimal. I discussed with the patient and also with Dr. Alvarenga yesterday at length. Since the creatinine is stable hopefully renal function will improve. We will given another day and decide whether to start dialysis on Friday. No acute indications for dialysis now. Consider a renal biopsy since not improving. (2) Anasarca associated with disorder of kidney: Code(s): N04.9 - Nephrotic syndrome with unspecified morphologic changes Status: Acute Assessment and Plan: She is on diuretics x3 Off amlodipine BP is improved on the Cardizem. (3) Chronic renal failure, stage 3 (moderate): Code(s): N18.3 - Chronic kidney disease, stage 3 (moderate) Status: Acute (4) Diabetic foot ulcer: Qualifiers: Diabetic foot ulcer location: midfoot Diabetes mellitus type: type 1 Laterality: left Non-pressure ulcer stage: limited to breakdown of skin Qualified Code(s): E10.621 - Type 1 diabetes mellitus with foot ulcer; L97.421 - Non-pressure chronic ulcer of left heel and midfoot limited to breakdown of skin Code(s): E11.621 - Type 2 diabetes mellitus with foot ulcer; L97.509 - Non-pressure chronic ulcer of other part of unspecified foot with unspecified severity Status: Chronic Assessment and Plan: Getting local wound care. Dr. anna is on the case (5) HTN (hypertension): Qualifiers: Hypertension type: essential hypertension Qualified Code(s): I10 - Essential (primary) hypertension Code(s): I10 - Essential (primary) hypertension Status: Chronic Assessment and Plan: Blood pressure is 150 to today. Antihypertensives adjusted (6) Hypokalemia: Code(s): E87.6 - Hypokalemia Status: Acute Assessment and Plan: On spironolactone. Potassium looks okay today. (7) Pyuria: Code(s): R82.81 - Pyuria Status: Acute Assessment and Plan: Repeat urinalysis shows a significant decrease in the number of white cells. The patient has no dysuria. And urine nitrites are negative. Culture pending. Subjective Date/time seen: 07/24/19 13:45 Interval history: Sitting up in a chair and eating lunch. No shortness of breath. She is still swollen. no nausea, vomiting, and eating okay The patient has a little bit of a tremor. Review of Systems Cardiovascular: Cardiovascular: Reports no additional cardiovascular complaints Respiratory: Respiratory: Reports no additional respiratory complaints Gastrointestinal: Gastrointestinal: Reports no additional gastrointestinal complaints Genitourinary: Genitourinary: Reports no additional female genitourinary complaints Exam Narrative: Exam Narrative: Well developed well-nourished in no acute distress Lungs clear with mildly decreased breath sounds at the bases Heart regular without rub or gallop Abdomen bowel sounds positive soft nontender Extremities 2+ edema stable Skin no acute rash or subcu nodules Objective Data Vital Signs Vital Signs: Vital Signs - 24 hr 07/23/19 14:00 07/24/19 05:55 Temperature 36.3 C L 36.6 C Pulse Rate
[2019-07-24 14:00] VITALS: BP 152/74; PULSE 96; RESP 14; TEMP 36.3; O2SAT 99
[2019-07-24 14:44] LABS: Glucose Point of Care 238 (65-105)
--- NOTE | 2019-07-24 16:45 | PM.IMPN ---
Progress Note: A&P Assessment and Plan (1) Acute kidney injury superimposed on chronic kidney disease: Code(s): N17.9 - Acute kidney failure, unspecified; N18.9 - Chronic kidney disease, unspecified Status: Acute Assessment and Plan: Creatinine relatively stable at 4.1 today which is well above her normal baseline of 1.40-1.80 in May. Renal US showing medical renal disease. Suspect underlying CKD from her DM. Most likely CHIKA/ATN from dehydration? but consider infectious etiology given the elevated inflammatory markers. AIN being considered related to the abx. Albumin 2.5 today. UA showing 3+ protein, >75RBC and >75WBC. UCx growing Yeast. Currently on IV Lasix, Metolazone and Spirolnolactone. Appreciate technician submarine cable equipment input. Will continue to monitor. Defer to ID about the possible treatment of the funguria. Possible dialysis and renal bx next week. (2) Nausea and vomiting: Qualifiers: Vomiting Intractability: intractable Vomiting type: unspecified Qualified Code(s): R11.2 - Nausea with vomiting, unspecified Code(s): R11.2 - Nausea with vomiting, unspecified Status: Acute Assessment and Plan: Has been an ongoing issue. Initially thought related to DKA but then felt related to abx. Consider gastroparesis but doing well off the Reglan. EGD showing Grade III reflux esophagitis. GI consulted and appreciate their input. RUQ ultrasound negative. Diet advanced and she is tolerating diabetic diet well. Continue Protonix. Will need outpatient followup for EGD. (3) Reflux esophagitis: Code(s): K21.0 - Gastro-esophageal reflux disease with esophagitis Status: Acute Assessment and Plan: As above. (4) Hypokalemia: Code(s): E87.6 - Hypokalemia Status: Acute Assessment and Plan: Potassium 3.7 this morning. Patient is on scheduled replacement. Continue to monitor closely and replace as needed. (5) Normocytic anemia: Code(s): D64.9 - Anemia, unspecified Status: Chronic Assessment and Plan: Hemoglobin 10.9 on admission but from there has been trending downward. Hemoglobin dropped to 7.7 today. No evidence of acute blood loss. Most likely related to her renal failure. Iron studies noted. Epogen has been added. Contineu to monitor. (6) Diabetes mellitus: Qualifiers: Diabetes mellitus type: type 1 Diabetes mellitus complication status: with hyperglycemia Qualified Code(s): E10.65 - Type 1 diabetes mellitus with hyperglycemia Code(s): E11.9 - Type 2 diabetes mellitus without complications Status: Chronic Assessment and Plan: A1c 8.2. Anion gap was slightly elevated in the emergency room prior to IV fluids. Patient admitted to IMU as did not appear to be in DKA at the time. AG has closed. Glucose reviewed on 07/24/2019. Glucose levels still elevated. She is eating better. Will advance Lantus and meal time insulin. Continue AccuCheks with sliding scale insulin. Continue diabetic diet. (7) Chronic osteomyelitis: Code(s): M86.60 - Other chronic osteomyelitis, unspecified site Status: Chronic Assessment and Plan: Does have PICC line in place. Dr Vivas consulted and IV Zosyn has been stopped. Appreciate his input. Consider removing PICC if we can get another line. (8) Diabetic foot ulcer: Qualifiers: Diabetic foot ulcer location: midfoot Diabetes mellitus type: type 1 Laterality: left Non-pressure ulcer stage: limited to breakdown of skin Qualified Code(s): E10.621 - Type 1 diabetes mellitus with foot ulcer; L97.421 - Non-pressure chronic ulcer of left heel and midfoot limited to breakdown of skin Code(s): E11.621 - Type 2 diabetes mellitus with foot ulcer; L97.509 - Non-pressure chronic ulcer of other part of unspecified foot with unspecified severity Status: Chronic Assessment and Plan: Has been seen b
[2019-07-24 18:38] LABS: Glucose Point of Care 227 (65-105)
[2019-07-24 20:00] VITALS: BP 168/69; PULSE 97; RESP 18; TEMP 36.2; O2SAT 98
[2019-07-24] MEDS: ATORVASTATIN 40 MG TABLET 80 MG PO (20:50)
[2019-07-25 00:14] LABS: Glucose Point of Care 199 (65-105)
[2019-07-25 05:30] VITALS: BP 131/65; PULSE 87; RESP 18; TEMP 36.3; O2SAT 94
[2019-07-25 06:47] LABS: Basophils Percent Auto 0.2 % (0.2-1.2); Eosinophils Absolute Auto 0.3 K/mm3 (0-0.3); Eosinophils Percent Auto 2.2 % (0-4.4); Hematocrit 23.9 % (37.0-47.0); Hemoglobin 7.6 g/dL (12.0-15.0); Immature Granulocyte Absolute 0.09 K/mm3 (0.00-0.031); Immature Granulocyte Percent A 0.7 % (0-0.5); Lymphocytes Absolute Auto 2.44 K/mm3 (0.9-3.2); Mean Corpuscular HGB Conc 31.8 g/dl (32-36); Mean Corpuscular Hemoglobin 30.3 pg (26-34); Mean Corpuscular Volume 95.2 fl (80-100); Mean Platelet Volume 10.2 fl (7.4-10.4); Neutrophils Percent Auto 69.9 % (45.5-73.1); Nucleated Red Blood Cells Perc 0.2 % (0.0-0.2); Platelet Count Result 269 k/mm3 (150-375); Red Blood Count 2.51 M/mm3 (4.2-5.4); Red Cell Distribution Width 15.9 % (11.5-14.5); White Blood Count 12.8 K/mm3 (4.5-10.0)
[2019-07-25 06:58] LABS: Albumin Level 2.5 g/dL (3.5-5.1); Blood Urea Nitrogen 67 mg/dL (7-17); Calcium 8.3 mg/dL (8.4-10.2); Carbon Dioxide 25 mmol/L (22-30); Chloride 100 mmol/L (98-107); Estimated CRCL calculation 15 ml/min; Estimated Glomerular Filt Rate 10; Glucose 205 mg/dL (65-105); Phosphorus 5.1 mg/dL (2.5-4.5); Potassium 4.2 mmol/L (3.4-5.0); Sodium 135 mmol/L (137-145)
[2019-07-25] MEDS: FUROSEMIDE INJ 40 MG/4 ML VIAL IV PUSH ×2 (08:45→16:54)
[2019-07-25] MEDS: PANTOPRAZOLE 40 MG TABLET PO ×2 (08:45→21:00)
[2019-07-25] MEDS: SPIRONOLACTONE 25 MG TABLET PO (08:45)
[2019-07-25] MEDS: metOLazone 5 MG TABLET PO (08:45)
[2019-07-25] MEDS: POTASSIUM CHLORIDE 10 MEQ TABLET.ER PO ×2 (08:45→16:55)
[2019-07-25] MEDS: INSULIN GLARGINE (*BKC) 100 UNITS/ML 22 UNITS SUB-Q (08:48)
[2019-07-25] MEDS: INSULIN ASPART (*BKC) 100 UNITS/ML 7 UNITS SUB-Q ×3 (08:49→17:37)
[2019-07-25] MEDS: SILVERGEL (ELTA) 45 ML 1 APPLIC TOPICAL (08:54)
[2019-07-25 08:56] LABS: Glucose Point of Care 191 (65-105)
[2019-07-25 12:22] LABS: Glucose Point of Care 264 (65-105)
[2019-07-25] MEDS: INSULIN ASPART (*BKC) 100 UNITS/ML SUB-Q (12:28)
--- NOTE | 2019-07-25 13:06 | PM.PNNEP ---
Progress Note: A&P Assessment and Plan (1) Acute kidney injury: Code(s): N17.9 - Acute kidney failure, unspecified Status: Acute Assessment and Plan: The patient has chronic kidney disease due to diabetes and hypertension. Baseline creatinine is in the mid 1s She has acute kidney injury. This is in the setting of osteomyelitis and antibiotic usage. Urine electrolytes are non pre renal Renal ultrasound shows medical renal disease consistent with her chronic kidney disease Renal scan shows uptake without excretion This sounds like acute tubular necrosis. Other less likely options are interstitial nephritis or glomerulonephritis. We know there is no obstruction. Ultrasound was unremarkable. She has no rash or peripheral eosinophilia. She does have some blood in the urine and serology is pending. She may need a renal biopsy. She is not on any blood thinners. Her platelets probably do not work the best because of her uremia. Still swollen and urine output is still suboptimal. Her urine output is up a little bit but her creatinine is still in the mid 4s. I will consult surgery to see her for placement of a dialysis catheter tomorrow. Dr. Vizcaino will see early and if the creatinine is down we can hold the catheter placement. Otherwise we can do the catheter and start dialysis. Consider a biopsy after couple of dialysis treatments. (2) Anasarca associated with disorder of kidney: Code(s): N04.9 - Nephrotic syndrome with unspecified morphologic changes Status: Acute Assessment and Plan: She is on diuretics x3 Off amlodipine BP is improved on the Cardizem. The urine output is up a little bit. (3) Chronic renal failure, stage 3 (moderate): Code(s): N18.3 - Chronic kidney disease, stage 3 (moderate) Status: Acute (4) Diabetic foot ulcer: Qualifiers: Diabetic foot ulcer location: midfoot Diabetes mellitus type: type 1 Laterality: left Non-pressure ulcer stage: limited to breakdown of skin Qualified Code(s): E10.621 - Type 1 diabetes mellitus with foot ulcer; L97.421 - Non-pressure chronic ulcer of left heel and midfoot limited to breakdown of skin Code(s): E11.621 - Type 2 diabetes mellitus with foot ulcer; L97.509 - Non-pressure chronic ulcer of other part of unspecified foot with unspecified severity Status: Chronic Assessment and Plan: Getting local wound care. Dr. anna is on the case he feels that there is no active infection. (5) HTN (hypertension): Qualifiers: Hypertension type: essential hypertension Qualified Code(s): I10 - Essential (primary) hypertension Code(s): I10 - Essential (primary) hypertension Status: Chronic Assessment and Plan: Blood pressure is doing pretty well on diltiazem and diuretics. (6) Hypokalemia: Code(s): E87.6 - Hypokalemia Status: Acute Assessment and Plan: On spironolactone. Potassium looks okay today. (7) Pyuria: Code(s): R82.81 - Pyuria Status: Acute Assessment and Plan: Repeat urinalysis shows a significant decrease in the number of white cells. The patient has no dysuria. And urine nitrites are negative. Culture is negative. Subjective Date/time seen: 07/25/19 13:06 Interval history: Sitting up in a chair No shortness of breath. She still feels bloated. no nausea, vomiting, and eating okay The patient has a little bit of a tremor. This is unchanged. Review of Systems Cardiovascular: Cardiovascular: Reports no additional cardiovascular complaints Respiratory: Respiratory: Reports no additional respiratory complaints Gastrointestinal: Gastrointestinal: Reports no additional gastrointestinal complaints Genitourinary: Genitourinary: Reports no additional female genitourinary complaints Exam Narrative: Exam Narrative: Well developed well-nourished in no acute distress Lungs decrea
--- NOTE | 2019-07-25 13:21 | PM.IMPN ---
Progress Note: A&P Assessment and Plan (1) Acute kidney injury superimposed on chronic kidney disease: Code(s): N17.9 - Acute kidney failure, unspecified; N18.9 - Chronic kidney disease, unspecified Status: Acute Assessment and Plan: Creatinine 4.4 on admission which is well above her normal baseline of 1.40-1.80 in May. Renal US showing medical renal disease. Suspect underlying CKD from her DM. Most likely CHIKA/ATN from dehydration? but consider infectious etiology given the elevated inflammatory markers. AIN being considered related to the abx. Cr 4.6 and edema appears to be worsening. UA showing 3+ protein, >75RBC and >75WBC. UCx growing Yeast. Currently on IV Lasix, Metolazone and Spirolnolactone. Appreciate information security analyst input. Will continue to monitor. Defer to ID about the possible treatment of the funguria. Possible dialysis tomorrow and renal bx later in the week. (2) Nausea and vomiting: Qualifiers: Vomiting Intractability: intractable Vomiting type: unspecified Qualified Code(s): R11.2 - Nausea with vomiting, unspecified Code(s): R11.2 - Nausea with vomiting, unspecified Status: Acute Assessment and Plan: Has been an ongoing issue. Initially thought related to DKA but then felt related to abx. Consider gastroparesis but doing well off the Reglan. EGD showing Grade III reflux esophagitis. GI consulted and appreciate their input. RUQ ultrasound negative. Diet advanced and she is tolerating diabetic diet well. Continue Protonix. Will need outpatient followup for repeat EGD. (3) Reflux esophagitis: Code(s): K21.0 - Gastro-esophageal reflux disease with esophagitis Status: Acute Assessment and Plan: As above. (4) Hypokalemia: Code(s): E87.6 - Hypokalemia Status: Acute Assessment and Plan: Potassium 4.2 this morning. Patient is on scheduled replacement. Continue to monitor closely and replace as needed. Stop potassium if continues to climb. (5) Normocytic anemia: Code(s): D64.9 - Anemia, unspecified Status: Chronic Assessment and Plan: Hemoglobin 10.9 on admission but from there has been slowly trending downward. Hemoglobin dropped to 7.6 today. No evidence of acute blood loss. Most likely related to her renal failure. Iron studies noted. Epogen has been added. Continue to monitor. (6) Diabetes mellitus: Qualifiers: Diabetes mellitus complication status: with hyperglycemia Diabetes mellitus type: type 1 Qualified Code(s): E10.65 - Type 1 diabetes mellitus with hyperglycemia Code(s): E11.9 - Type 2 diabetes mellitus without complications Status: Chronic Assessment and Plan: A1c 8.2. Anion gap was slightly elevated in the emergency room prior to IV fluids. Patient admitted to IMU as did not appear to be in DKA at the time. AG has closed. Glucose reviewed on 07/25/2019. Glucose levels slowly improving with advancement of her insulin regiment. She is eating better. Continue AccuCheks with sliding scale insulin. Continue diabetic diet. (7) Chronic osteomyelitis: Code(s): M86.60 - Other chronic osteomyelitis, unspecified site Status: Chronic Assessment and Plan: Was on Zosyn on admission but stopped per Dr Vivas. Does have PICC line in place. Appreciate ID input. Consider removing PICC if we can get another line. (8) Diabetic foot ulcer: Qualifiers: Diabetes mellitus type: type 1 Diabetic foot ulcer location: midfoot Laterality: left Non-pressure ulcer stage: limited to breakdown of skin Qualified Code(s): E10.621 - Type 1 diabetes mellitus with foot ulcer; L97.421 - Non-pressure chronic ulcer of left heel and midfoot limited to breakdown of skin Code(s): E11.621 - Type 2 diabetes mellitus with foot ulcer; L97.509 - Non-pressure chronic ulcer of other part of unspecified foot with unspecifie
[2019-07-25 14:00] VITALS: BP 156/71; PULSE 95; RESP 16; TEMP 36.4; O2SAT 99
[2019-07-25 17:06] LABS: Glucose Point of Care 165 (65-105)
[2019-07-25] MEDS: ATORVASTATIN 40 MG TABLET 80 MG PO (21:00)
[2019-07-25 22:00] VITALS: BP 159/67; PULSE 96; RESP 16; TEMP 36.6; O2SAT 99
[2019-07-25 22:11] LABS: Glucose Point of Care 167 (65-105)
[2019-07-26 06:00] VITALS: BP 154/68; PULSE 97; RESP 16; TEMP 36.2; O2SAT 94
[2019-07-26 06:01] LABS: Basophils Percent Auto 0.2 % (0.2-1.2); Eosinophils Absolute Auto 0.3 K/mm3 (0-0.3); Eosinophils Percent Auto 2.6 % (0-4.4); Hematocrit 24.2 % (37.0-47.0); Hemoglobin 7.6 g/dL (12.0-15.0); Immature Granulocyte Absolute 0.09 K/mm3 (0.00-0.031); Immature Granulocyte Percent A 0.7 % (0-0.5); Lymphocytes Absolute Auto 2.51 K/mm3 (0.9-3.2); Lymphocytes Percent Auto 20.7 % (18.3-44.2); Mean Corpuscular HGB Conc 31.4 g/dl (32-36); Mean Corpuscular Hemoglobin 30.3 pg (26-34); Mean Corpuscular Volume 96.4 fl (80-100); Mean Platelet Volume 10.3 fl (7.4-10.4); Monocytes Absolute Auto 1.3 K/mm3 (0.1-0.6); Monocytes Percent Auto 10.4 % (2.6-8.5); Neutrophils Absolute Auto 7.9 K/mm3 (1.3-6.7); Neutrophils Percent Auto 65.4 % (45.5-73.1); Nucleated Red Blood Cells Perc 0.2 % (0.0-0.2); Platelet Count Result 314 k/mm3 (150-375); Red Blood Count 2.51 M/mm3 (4.2-5.4); Red Cell Distribution Width 16.1 % (11.5-14.5); White Blood Count 12.1 K/mm3 (4.5-10.0)
[2019-07-26 06:02] LABS: Albumin Level 2.6 g/dL (3.5-5.1); Blood Urea Nitrogen 67 mg/dL (7-17); Calcium 8.5 mg/dL (8.4-10.2); Carbon Dioxide 28 mmol/L (22-30); Chloride 102 mmol/L (98-107); Estimated CRCL calculation 15 ml/min; Estimated Glomerular Filt Rate 10; Glucose 145 mg/dL (65-105); Phosphorus 5.1 mg/dL (2.5-4.5); Potassium 4.6 mmol/L (3.4-5.0); Sodium 135 mmol/L (137-145)
[2019-07-26 06:04] LABS: Prothrombin Time 13.2 Seconds (11.1-14.7)
[2019-07-26 06:34] LABS: Hepatitis B Surface Antigen Negative (Negative)
[2019-07-26 06:39] LABS: HAV RESULT Negative (Negative); Hepatitis B Core IgM Result Negative (Negative)
[2019-07-26 06:51] LABS: Hepatitis B Surface Anti Res Negative; Hepatitis C Virus Antibody Negative (Negative)
[2019-07-26] MEDS: PANTOPRAZOLE 40 MG TABLET PO ×2 (08:12→20:34)
[2019-07-26] MEDS: FUROSEMIDE INJ 40 MG/4 ML VIAL IV PUSH (08:12)
[2019-07-26] MEDS: SPIRONOLACTONE 25 MG TABLET PO (08:12)
[2019-07-26] MEDS: metOLazone 5 MG TABLET PO (08:12)
[2019-07-26] MEDS: SILVERGEL (ELTA) 45 ML 1 APPLIC TOPICAL (08:18)
[2019-07-26] MEDS: INSULIN ASPART (*BKC) 100 UNITS/ML 7 UNITS SUB-Q ×3 (09:15→18:31)
[2019-07-26] MEDS: INSULIN GLARGINE (*BKC) 100 UNITS/ML 22 UNITS SUB-Q (09:15)
[2019-07-26 09:44] LABS: Glucose Point of Care 128 (65-105)
[2019-07-26 13:00] LABS: Glucose Point of Care 121 (65-105)
--- NOTE | 2019-07-26 13:30 | PM.IMPN ---
Progress Note: A&P Assessment and Plan (1) Acute kidney injury superimposed on chronic kidney disease: Code(s): N17.9 - Acute kidney failure, unspecified; N18.9 - Chronic kidney disease, unspecified Status: Acute Assessment and Plan: Creatinine 4.4 on admission which is well above her normal baseline of 1.40-1.80 in May. Renal US showing medical renal disease. Suspect underlying CKD from her DM. Most likely CHIKA/ATN from dehydration but consider infectious etiology given the elevated inflammatory markers. AIN being considered related to the abx. Cr unchanged at 4.6 but edema appears to be worsening. UA showing 3+ protein, >75RBC and >75WBC. UCx growing Yeast but repeat UCx negative. Currently on IV Lasix, Metolazone and Spirolnolactone. Appreciate interpreter input. Dialysis placed on hold. Consider changing to IV Bumex. Stop potassium. (2) Nausea and vomiting: Qualifiers: Vomiting Intractability: intractable Vomiting type: unspecified Qualified Code(s): R11.2 - Nausea with vomiting, unspecified Code(s): R11.2 - Nausea with vomiting, unspecified Status: Acute Assessment and Plan: Present on admission. Initially thought related to DKA but then felt related to abx. Consider gastroparesis but doing well off the Reglan. EGD showing Grade III reflux esophagitis. GI consulted and appreciate their input. RUQ ultrasound negative. Diet advanced and she is tolerating diabetic diet well. Continue Protonix. Will need outpatient followup for repeat EGD. (3) Reflux esophagitis: Code(s): K21.0 - Gastro-esophageal reflux disease with esophagitis Status: Acute Assessment and Plan: As above. (4) Hypokalemia: Code(s): E87.6 - Hypokalemia Status: Acute Assessment and Plan: Potassium 4.6 this morning. Patient is on scheduled potassium replacement. Will stop oral replacement. Continue to monitor closely and replace as needed. (5) Normocytic anemia: Code(s): D64.9 - Anemia, unspecified Status: Chronic Assessment and Plan: Hemoglobin 10.9 on admission but from there has been slowly trending downward. Hemoglobin dropped to 7.6 yesterday and unchanged today. No evidence of acute blood loss. Most likely related to her renal failure. Iron studies noted. Epogen has been added. Continue to monitor. (6) Diabetes mellitus: Qualifiers: Diabetes mellitus type: type 1 Diabetes mellitus complication status: with hyperglycemia Qualified Code(s): E10.65 - Type 1 diabetes mellitus with hyperglycemia Code(s): E11.9 - Type 2 diabetes mellitus without complications Status: Chronic Assessment and Plan: A1c 8.2. Anion gap was slightly elevated in the emergency room prior to IV fluids. Patient admitted to IMU because it did not appear to be DKA. AG has closed. Glucose reviewed on 07/26/2019. Glucose levels better controlled. Continue Lantus and meal time insulin. Continue AccuCheks with sliding scale insulin. Continue diabetic diet. (7) Chronic osteomyelitis: Code(s): M86.60 - Other chronic osteomyelitis, unspecified site Status: Chronic Assessment and Plan: Was on Zosyn on admission but stopped per Dr Vivas. Does have PICC line in place. Appreciate ID input. Consider removing PICC if we can get another line. (8) Diabetic foot ulcer: Qualifiers: Diabetic foot ulcer location: midfoot Diabetes mellitus type: type 1 Laterality: left Non-pressure ulcer stage: limited to breakdown of skin Qualified Code(s): E10.621 - Type 1 diabetes mellitus with foot ulcer; L97.421 - Non-pressure chronic ulcer of left heel and midfoot limited to breakdown of skin Code(s): E11.621 - Type 2 diabetes mellitus with foot ulcer; L97.509 - Non-pressure chronic ulcer of other part of unspecified foot with unspecified severity Status: Chronic Assessm
[2019-07-26 14:00] VITALS: BP 157/84; PULSE 100; RESP 18; TEMP 36.5; O2SAT 100
--- NOTE | 2019-07-26 16:37 | PM.PNNEP ---
Progress Note: A&P Assessment and Plan (1) Acute kidney injury: Code(s): N17.9 - Acute kidney failure, unspecified Status: Acute Assessment and Plan: etiology not entirely clear work-up to date demonsrates: - urine electrolytes are non pre-renal - renal ultrasound shows medical renal disease consistent with her known chronic kidney disease - Renal scan shows uptake without excretion (suggestive of ATN) - no rash or peripheral eosinophilia (although this not rule out AIN) has blood in the urine - serological testing is pending she is still quite a bit of edema and urine output is suboptimal - she may need dialysis just to improve her volume status (see #3) will reassess labs and UOP tomorrow AM - if no significant improvement, will proceed with tunneled HD catheter and dialysis renal biopsy possibly after optimization of fluid status with dialysis if needed (2) Chronic kidney disease, stage 3: Code(s): N18.3 - Chronic kidney disease, stage 3 (moderate) Status: Chronic Assessment and Plan: baseline creatinine runs ~ 1.5 - 2.0mg/dl secondary to due to diabetes and hypertension (3) Diabetic foot ulcer: Qualifiers: Diabetes mellitus type: type 1 Diabetic foot ulcer location: midfoot Laterality: left Non-pressure ulcer stage: limited to breakdown of skin Qualified Code(s): E10.621 - Type 1 diabetes mellitus with foot ulcer; L97.421 - Non-pressure chronic ulcer of left heel and midfoot limited to breakdown of skin Code(s): E11.621 - Type 2 diabetes mellitus with foot ulcer; L97.509 - Non-pressure chronic ulcer of other part of unspecified foot with unspecified severity Status: Chronic Assessment and Plan: local wound care ID recommendations noted (4) Anasarca: Code(s): R60.1 - Generalized edema Status: Acute Assessment and Plan: presumably due to renal dysfunction currently on diuretics (bumex, metolazone, and spironolactone) urine output seems a little better this issue may just be another reason that dialysis is needed (5) HTN (hypertension): Qualifiers: Hypertension type: essential hypertension Qualified Code(s): I10 - Essential (primary) hypertension Code(s): I10 - Essential (primary) hypertension Status: Chronic Assessment and Plan: holding steady with current medications follow trend of hemodynamics (6) Hypokalemia: Code(s): E87.6 - Hypokalemia Status: Acute Assessment and Plan: K+ stable on spironolactone Long discussion with patient (> 20 minutes) regarding above pland of Will continue to follow Subjective Date/time seen: 07/26/19 16:37 Chart reviewed since admission -- still feels like she is full of fluid despite aggressive diuretic therapy; decision made to hold HD catheter placement/dialysis today given stable BUN and creatinine by AM labs; no other acute complaints voiced. Exam Narrative: Exam Narrative: General: WD/WN female in NAD Heart: normal S1 and S2; no rub Lungs: decreased at the bases Abdomen: soft, nontender, nondistended, positive bowel sounds Extremities: no cyanosis or clubbing; 2 - 3+ edema Skin: warm and dry; left foot ulcer noted Objective Data Vital Signs Vital Signs: Vital Signs Temp Pulse Resp BP Pulse Ox 07/26/19 14:00 36.5 C 100 18 157/84 H 100 07/26/19 06:00 36.2 C L 97 16 154/68 H 94 07/25/19 22:00 36.6 C 96 16 159/67 H 99 Intake/Output Intake/Output: Intake & Output 07/23/19 07/24/19 07/25/19 07/26/19 23:59 23:59 23:59 23:59 Intake Total 1880 1280 2055 1220 Output Total 1000 1150 800 Balance 215 924 5264 1220 Meds/Results Medications: Active Medications Generic Name Dose Route Start Last Admin Trade Name Freq PRN Reason Stop Dose Admin Atorvastatin Calcium 80 mg 07/18/19 21:00 07/25/19 21:00 Lipitor PO 80 mg HS JOHNSON Admi
[2019-07-26] MEDS: BUMETANIDE INJ 2.5 MG/10 ML VIAL 2 MG IVPB (17:00)
[2019-07-26 18:50] LABS: Glucose Point of Care 127 (65-105)
[2019-07-26] MEDS: ATORVASTATIN 40 MG TABLET 80 MG PO (20:34)
[2019-07-26 21:44] VITALS: BP 147/78; PULSE 93; RESP 20; TEMP 36.4; O2SAT 100
[2019-07-26 23:12] VITALS: BP 149/71; PULSE 100; RESP 20; O2SAT 100
[2019-07-26 23:17] VITALS: BP 149/71; PULSE 100; RESP 20; TEMP 36.4; O2SAT 100
[2019-07-27] VITALS (27 sets, daily range): BP systolic 108–163; BP diastolic 46–83; PULSE 80–103; RESP 8–20; TEMP 36.3–36.8; O2SAT 91–100
[2019-07-27 01:09] LABS: Glucose Point of Care 118 (65-105)
[2019-07-27 04:54] LABS: Hematocrit 24.9 % (37.0-47.0); Hemoglobin 7.9 g/dL (12.0-15.0); Mean Corpuscular HGB Conc 31.7 g/dl (32-36); Mean Corpuscular Hemoglobin 30.5 pg (26-34); Mean Corpuscular Volume 96.1 fl (80-100); Mean Platelet Volume 10.1 fl (7.4-10.4); Platelet Count Result 379 k/mm3 (150-375); Red Blood Count 2.59 M/mm3 (4.2-5.4); Red Cell Distribution Width 16.5 % (11.5-14.5)
[2019-07-27 05:14] LABS: Albumin Level 2.8 g/dL (3.5-5.1); Blood Urea Nitrogen 70 mg/dL (7-17); Calcium 8.6 mg/dL (8.4-10.2); Carbon Dioxide 26 mmol/L (22-30); Chloride 100 mmol/L (98-107); Estimated CRCL calculation 15 ml/min; Estimated Glomerular Filt Rate 10; Glucose 173 mg/dL (65-105); Magnesium 1.7 mg/dL (1.6-2.3); Phosphorus 5.2 mg/dL (2.5-4.5); Potassium 4.8 mmol/L (3.4-5.0); Sodium 137 mmol/L (137-145)
[2019-07-27] MEDS: SPIRONOLACTONE 25 MG TABLET PO (09:10)
[2019-07-27] MEDS: PANTOPRAZOLE 40 MG TABLET PO ×2 (09:10→23:21)
[2019-07-27] MEDS: metOLazone 5 MG TABLET PO (09:10)
[2019-07-27] MEDS: BUMETANIDE INJ 2.5 MG/10 ML VIAL 2 MG IVPB ×2 (09:11→23:18)
[2019-07-27] MEDS: EPOETIN ALFA 10,000 UNITS/ML VIAL 10000 UNITS SUB-Q (09:11)
[2019-07-27] MEDS: SILVERGEL (ELTA) 45 ML 1 APPLIC TOPICAL (09:17)
[2019-07-27 09:47] LABS: Glucose Point of Care 148 (65-105)
--- NOTE | 2019-07-27 10:14 | P.PNNP_ITS ---
Progress Note: A&P Assessment and Plan (1) Acute kidney injury: Code(s): N17.9 - Acute kidney failure, unspecified Status: Acute Assessment and Plan: * etiology still not entirely clear * work-up to date demonstrates: - urine electrolytes are non pre-renal - renal ultrasound shows medical renal disease consistent with her known chronic kidney disease - Renal scan shows uptake without excretion (suggestive of ATN) - no rash or peripheral eosinophilia (although this does not rule out A IN) * has blood in the urine - serological testing is pending * she still has significant edema and urine output is not improving in spite of diuretics - I think she needs dialysis just to improve her volume status (see #3) if not to improve clearance of uremic toxins * will proceed with tunneled HD catheter placement and dialysis afterwards * renal biopsy possibly after optimization of fluid status with dialysis (2) Chronic kidney disease, stage 3: Code(s): N18.3 - Chronic kidney disease, stage 3 (moderate) Status: Chronic Assessment and Plan: * baseline creatinine runs ~ 1.5 - 2.0mg/dl * secondary to diabetes and hypertension (3) Diabetic foot ulcer: Qualifiers: Diabetes mellitus type: type 1 Diabetic foot ulcer location: midfoot Laterality: left Non-pressure ulcer stage: limited to breakdown of skin Qualified Code(s): E10.621 - Type 1 diabetes mellitus with foot ulcer; L97.421 - Non-pressure chronic ulcer of left heel and midfoot limited to breakdown of skin Code(s): E11.621 - Type 2 diabetes mellitus with foot ulcer; L97.509 - Non-pressure chronic ulcer of other part of unspecified foot with unspecified severity Status: Chronic Assessment and Plan: * local wound care * ID recommendations noted (4) Anasarca: Code(s): R60.1 - Generalized edema Status: Acute Assessment and Plan: * presumably due to renal dysfunction * currently on diuretics (bumex, metolazone, and spironolactone) * urine output has not improved (and appears to have declined in the last 24 hours) * this issue is another reason that dialysis is being instituted (5) HTN (hypertension): Qualifiers: Hypertension type: essential hypertension Qualified Code(s): I10 - Essential (primary) hypertension Code(s): I10 - Essential (primary) hypertension Status: Chronic Assessment and Plan: * holding steady with current medications * follow trend of hemodynamics * dialysis and fluid removal should help (6) Hypokalemia: Code(s): E87.6 - Hypokalemia Status: Acute Assessment and Plan: * K+ stable * on spironolactone * follow trend with institution of dialysis Will continue to follow Subjective Date/time seen: 07/27/19 10:14 No real significant change -- despite adjustment in diuretics and relative stability in creatinine/renal function, no significant improvement in urine out put; still feel full of fluid as well; no other acute issues or problems voiced. Exam Narrative: Exam Narrative: General: WD/WN female in NAD Heart: normal S1 and S2; no rub Lungs: decreased at the bases Abdomen: soft, nontender, nondistended, positive bowel sounds Extremities: no cyanosis or clubbing; 2 - 3+ edema Skin: warm and intact; left foot ulcer noted Objective Data Vital Signs Vital Signs: Vital Signs Temp Pulse Resp BP Pulse Ox
--- NOTE | 2019-07-27 10:14 | PM.PNNEP ---
Progress Note: A&P Assessment and Plan (1) Acute kidney injury: Code(s): N17.9 - Acute kidney failure, unspecified Status: Acute Assessment and Plan: etiology still not entirely clear work-up to date demonstrates: - urine electrolytes are non pre-renal - renal ultrasound shows medical renal disease consistent with her known chronic kidney disease - Renal scan shows uptake without excretion (suggestive of ATN) - no rash or peripheral eosinophilia (although this does not rule out AIN) has blood in the urine - serological testing is pending she still has significant edema and urine output is not improving in spite of diuretics - I think she needs dialysis just to improve her volume status (see #3) if not to improve clearance of uremic toxins will proceed with tunneled HD catheter placement and dialysis afterwards renal biopsy possibly after optimization of fluid status with dialysis (2) Chronic kidney disease, stage 3: Code(s): N18.3 - Chronic kidney disease, stage 3 (moderate) Status: Chronic Assessment and Plan: baseline creatinine runs ~ 1.5 - 2.0mg/dl secondary to diabetes and hypertension (3) Diabetic foot ulcer: Qualifiers: Diabetes mellitus type: type 1 Diabetic foot ulcer location: midfoot Laterality: left Non-pressure ulcer stage: limited to breakdown of skin Qualified Code(s): E10.621 - Type 1 diabetes mellitus with foot ulcer; L97.421 - Non-pressure chronic ulcer of left heel and midfoot limited to breakdown of skin Code(s): E11.621 - Type 2 diabetes mellitus with foot ulcer; L97.509 - Non-pressure chronic ulcer of other part of unspecified foot with unspecified severity Status: Chronic Assessment and Plan: local wound care ID recommendations noted (4) Anasarca: Code(s): R60.1 - Generalized edema Status: Acute Assessment and Plan: presumably due to renal dysfunction currently on diuretics (bumex, metolazone, and spironolactone) urine output has not improved (and appears to have declined in the last 24 hours) this issue is another reason that dialysis is being instituted (5) HTN (hypertension): Qualifiers: Hypertension type: essential hypertension Qualified Code(s): I10 - Essential (primary) hypertension Code(s): I10 - Essential (primary) hypertension Status: Chronic Assessment and Plan: holding steady with current medications follow trend of hemodynamics dialysis and fluid removal should help (6) Hypokalemia: Code(s): E87.6 - Hypokalemia Status: Acute Assessment and Plan: K+ stable on spironolactone follow trend with institution of dialysis Will continue to follow Subjective Date/time seen: 07/27/19 10:14 No real significant change -- despite adjustment in diuretics and relative stability in creatinine/renal function, no significant improvement in urine output; still feel full of fluid as well; no other acute issues or problems voiced. Exam Narrative: Exam Narrative: General: WD/WN female in NAD Heart: normal S1 and S2; no rub Lungs: decreased at the bases Abdomen: soft, nontender, nondistended, positive bowel sounds Extremities: no cyanosis or clubbing; 2 - 3+ edema Skin: warm and intact; left foot ulcer noted Objective Data Vital Signs Vital Signs: Vital Signs Temp Pulse Resp BP Pulse Ox 07/27/19 06:01 36.6 C 103 H 20 149/64 H 96 07/26/19 23:17 36.4 C 100 20 149/71 H 100 07/26/19 23:12 100 20 149/71 H 100 07/26/19 21:44 36.4 C 93 20 147/78 H 100 07/26/19 14:00 36.5 C 100 18 157/84 H 100 Intake/Output Intake/Output: Intake & Output 07/24/19 07/25/19 07/26/19 07/27/19 23:59 23:59 23:59 23:59 Intake Total 1280 2055 2400 350 Output Total 1150 800 550 900 Balance 130 1255 1850 -550 Meds/Results Medications: Active Medications Generic Name Dose Route
--- NOTE | 2019-07-27 12:03 | PC.NURSE ---
Pt to OR via hospital bed. IV intact. Consent signed.
[2019-07-27 12:10] LABS: Glucose Point of Care 126 (65-105)
--- NOTE | 2019-07-27 12:16 | WPDHPUPDATE1 ---
History and Physical Update Update Date/Time: 07/27/19 12:16 History and Physical has been reviewed, including an updated exam of the patient. There are changes in the patient's condition.Although the patient's renal status has improved slightly she still is retain lots of fluid and she and her construction materials tester have decided to proceed with at least a short course of hemodialysis. Risks, benefits, and alternatives of placement of a tunneled dialysis catheter have been discussed and questions answered. Patient agrees to proceed with procedure.
--- NOTE | 2019-07-27 12:38 | WPDANESEPPF ---
Anes - Initial Pre Proc Eval Procedure: Operation Date: 07/20/19 10:30 Proposed Procedures p Esophagogastroduodenoscopy - Lamont Ramirez MD Operation Date: 07/27/19 13:00 Proposed Procedures p Right Tunnelled Dialysis Catheter Placement - Darinel Wen MD Date/Time: 07/27/19 12:38 Surgeon: Chris Alvarenga MD Pre Op Diagnosis: Acute kidney injury/hyperglycemia/dehydration Patient Data Age: 43 Gender: F Height: 5 ft 5 in Weight: 85.9 kg Last Vital Signs Temp 36.5 C 07/27/19 12:11 Pulse 95 07/27/19 12:11 Resp 16 07/27/19 12:11 BP 158/61 H 07/27/19 12:11 Pulse Ox 94 07/27/19 12:11 Allergies Allergy/AdvReac Type Severity Reaction Status Date / Time No Known Drug Allergies Allergy Verified 07/20/19 09:56 Home Medications Medication Instructions Recorded Confirmed Type atorvastatin 80 mg PO HS 06/05/19 07/18/19 History insulin lispro 1 sliding scale dose SUBCUT 06/05/19 07/18/19 History USEASDIRECTD lisinopril 10 mg PO DAILY 06/05/19 07/18/19 History metoclopramide HCl [Reglan] 10 mg PO Q6H PRN 06/05/19 07/18/19 History pantoprazole [Protonix] 40 mg PO QAM 06/05/19 07/18/19 History acetaminophen [Mapap 650 mg PO Q4H PRN #60 tablet 06/09/19 07/18/19 Rx (acetaminophen)] amlodipine [Norvasc] 5 mg PO QAM #30 tablet 06/09/19 07/18/19 Rx glucagon (human recombinant) 1 mg IM PRN PRN #1 each 06/09/19 07/18/19 Rx [GlucaGen Diagnostic Kit] insulin aspart U-100 [Novolog 3 unit SUB-Q TID #15 ml 06/09/19 07/18/19 Rx Flexpen U-100 Insulin] insulin glargine [Basaglar KwikPen 15 unit SUB-Q DAILY #15 ml 06/09/19 07/18/19 Rx U-100 Insulin] silver [Silver-Sept] 1 applic TOPICAL DAILY #15 g 06/09/19 07/18/19 Rx Laboratory Tests 07/26/19 07/26/19 07/26/19 12:41 18:30 20:32 WBC RBC Hgb Hct MCV MCH MCHC RDW Plt Count MPV Sodium Potassium Chloride Carbon Dioxide BUN Creatinine Estim Creat Clear Calc Estimated GFR Glucose POC Capillary Glucose 121 mg/dl H mg/dl 127 mg/dl H mg/dl 118 mg/dl H mg/dl (65-105) (65-105) (65-105) Calcium Phosphorus Magnesium Albumin 07/27/19 07/27/19 07/27/19 04:34 04:34 09:30 WBC 12.0 K/mm3 H K/mm3 (4.5-10.0) RBC 2.59 M/mm3 L M/mm3 (4.2-5.4) Hgb 7.9 g/dL L g/dL (12.0-15.0) Hct 24.9 % L % (37.0-47.0) MCV 96.1 fl fl (80-100) MCH 30.5 pg pg (26-34) MCHC 31.7 g/dl L g/dl (32-36) RDW 16.5 % H % (11.5-14.5) Plt Count 379 k/mm3 H k/mm3 (150-375) MPV 10.1 fl fl (7.4-10.4) Sodium 137 mmol/L mmol/L (137-145) Potassium 4.8 mmol/L mmol/L (3.4-5.0) Chloride 100 mmol/L mmol/L (98-107) Carbon Dioxide 26 mmol/L mmol/L (22-30) BUN 70 mg/dL H mg/dL (7-17) Creatinine 4.60 mg/dL H mg/dL (0.7-1.0) Estim Creat Clear Calc 15 ml/min ml/min Estimated GFR 10 L (59 - ) Glucose 173 mg/dL H mg/dL (65-105) POC Capillary Glucose 148 mg/dl H mg/dl (65-105) Calcium 8.6 mg/dL mg/dL (8.4-10.2) Phosphorus 5.2 mg/dL H mg/dL (2.5-4.5) Magnesium 1.7 mg/dL mg/dL (1.6-2.3) Albumin 2.8 g/dL L g/dL (3.5-5.1) 07/27/19 12:08 WBC RBC Hgb Hct MCV MCH MCHC RDW Plt Count MPV Sodium Potassium Chloride Carbon Dioxide BUN Creatinine Estim Creat Clear Calc Estimated GFR Glucose POC Capillary Glucose 126 mg/dl H mg/dl (65-105) Calcium Phosphorus Magnesium Albumin
[2019-07-27] MEDS: ceFAZolin 2 GM/D5W 50 ML 2 GM/50 ML BAG IVPB (13:08)
[2019-07-27] MEDS: BUPIVACAINE/EPINEPHRINE 0.25% 50 ML VIAL INFILTRATE (13:35)
[2019-07-27] MEDS: HEPARIN SODIUM, PORCINE 10,000 UNITS/10 ML VIAL 10000 UNITS IV PUSH (13:36)
[2019-07-27 13:37] LABS: Lambda Light Chain 81.3 mg/L (5.7-26.3)
[2019-07-27] MEDS: HEPARIN SODIUM 1,000 UNITS/ML VIAL 1000 UNITS IV PUSH (13:38)
[2019-07-27 13:53] LABS: Complement Total CH50 >60 U/mL (31-60)
--- NOTE | 2019-07-27 14:00 | PM.PROC ---
Procedure Note - Detailed Date of procedure: 07/27/19 Pre-op diagnosis: Acute kidney injury/hyperglycemia/dehydration Post-op diagnosis: same Procedure performed: Placement of tunneled dialysis catheter (right jugular approach) Description of procedure: The patient was placed in the supine position on the operating table and after induction of adequate mask general anesthesia by the nurse ice handler, we carefully rotated the patient's head and tilted slightly to the left then prepping both sides of the neck and chest with chlorhexidine. After waiting 3 minutes I carefully draped the patient, and we performed a time-out confirming the patient's site of surgery. Because of her size, a 32 cm DuraFlow catheter was selected. I used ultrasound to identify the right jugular vein in the mid neck and this was cannulated under direct vision with an 18-gauge Arrow needle on a syringe. Good dark blood was aspirated, the J-guidewire was advanced through the needle and into the central venous system under usual Seldinger technique. C-arm fluoroscopy was used to confirm that the wire was then through the central venous system and then we removed the needle and blue guide off the wire. Following this, we measured the DuraFlow catheter such that the tip would be just into the right atrium or in the distal superior vena cava. A hemostat was placed on the drapes over the chest to guide where we would place this. Then the catheter was measured back to the entry site of the J- wire in a curvilinear fashion and down to her chest overlying the right clavicle. Local anesthetic was placed into 3 way, the exit site and then 2 more on her lateral neck such that a curvilinear path could be dissected through the subcutaneous tissues up to the insertion site on her right neck. Local anesthetic was infiltrated along the tract prior to tunneling. Incisions were made with an 11 blade knife at the exit site and the 2 counter incisions and then an 11 blade at the wire. The tunneling device was connected to the catheter and this was pulled through these incisions to make the subcutaneous tunnel a curvilinear course through the subcutaneous tissues to the insertion site on the neck. Then the wire was serially dilated with a 12, 14, and then a 16-Icelandic dilator over the pull away sheath. We watched the 16-Icelandic dilator and sheath go down into the central venous system with C-arm fluoroscopy and then removed the dilator and wire after carefully covering the end of the tear-away sheath. I lost some blood, as we then inserted the catheter down into the central venous system. The catheter was held in place with a DeBakey forceps and then we carefully tore away the sheath leaving the catheter within the subcutaneous tissues and down into the juglar vein. Following this, C-arm fluoroscopy was used to examine the full course of the catheter. The tip was just into the right atrium and there was a good curvilinear course of the catheter in the neck down to the exit site over the right clavicle. Minimal bleeding was continuing, so we then went ahead and closed these incisions with some buried subcutaneous sutures of 4-0 Monocryl directly over the catheter at the insertion site and then buried subcutaneous sutures at each of the incisions except the exit site. 3-0 nylon was used to suture the catheter at its hub to the skin and an antibiotic disc was placed at the exit site. Tegaderm applied over this and the patient was taken to the recovery room in good condition. No continuing bleeding was identified in the recovery room. The patient tolerated the procedure well. Chest x-ray in the recovery room shows the tip to be at the distal superior vena cava or just into the right atrium. No evidence of pneumothorax was seen. Estimated blood loss was again about 20 cc. Anesthesia: local (2% xylocaine with epinephrine) and other (G IV S) Surgeon: Darinel Wen MD Import Export Clerk: TONE Lozano, OR 1st assist
[2019-07-27] MEDS: SODIUM CHLORIDE 0.9% IV 500 ML 30 ML IV CONT (14:02)
[2019-07-27 14:11] LABS: Glucose Point of Care 127 (65-105)
--- NOTE | 2019-07-27 15:00 | PC.NURSE ---
Pt to dialysis from post OP.
--- NOTE | 2019-07-27 15:55 | SUR.PHASEI ---
1543: Took patient to dialysis instead of 2 medical. All staff aware and report given to striper as well as 2 medical RN.
--- NOTE | 2019-07-27 16:08 | PCPTNOTE ---
Attempted PT eval. Pt had surgery this afternoon. Will try again tomorrow.
--- NOTE | 2019-07-27 17:05 | PM.IMPN ---
Progress Note: A&P Assessment and Plan (1) Acute kidney injury superimposed on chronic kidney disease: Code(s): N17.9 - Acute kidney failure, unspecified; N18.9 - Chronic kidney disease, unspecified Status: Acute Assessment and Plan: Creatinine 4.4 on admission which is well above her normal baseline of 1.40-1.80 in May. Renal US showing medical renal disease. Suspect underlying CKD from her diabetes with acute renal failure due to dehydration. Appreciate help from Nephrology. Is now status post placement of temporary dialysis catheter. First session of hemodialysis today. Creatinine unchanged at 4.60 today. Will continue to follow. Remains on IV Bumex, metolazone and spironolactone. (2) Nausea and vomiting: Qualifiers: Vomiting Intractability: intractable Vomiting type: unspecified Qualified Code(s): R11.2 - Nausea with vomiting, unspecified Code(s): R11.2 - Nausea with vomiting, unspecified Status: Acute Assessment and Plan: Present on admission. Initially thought related to DKA but then felt related to antibiotics. Appreciate help from GI. Consider gastroparesis but doing well off the Reglan. EGD showing Grade III reflux esophagitis. RUQ ultrasound negative. Diet advanced and she is tolerating diabetic diet well. Continue Protonix. Will need outpatient followup for repeat EGD. (3) Reflux esophagitis: Code(s): K21.0 - Gastro-esophageal reflux disease with esophagitis Status: Acute Assessment and Plan: As seen on EGD. Continue oral Protonix. Will follow. (4) Hypokalemia: Code(s): E87.6 - Hypokalemia Status: Acute Assessment and Plan: Corrected with potassium now 4.8. Will follow. Off replacement. (5) Normocytic anemia: Code(s): D64.9 - Anemia, unspecified Status: Chronic Assessment and Plan: Hemoglobin 10.9 on admission but from there has been slowly trending downward. Hemoglobin Now stable at 7.9 today. Most likely related to renal failure with no sign of acute blood loss. Continue Epogen. Iron studies completed. Will follow. (6) Diabetes mellitus: Qualifiers: Diabetes mellitus complication status: with hyperglycemia Diabetes mellitus type: type 1 Qualified Code(s): E10.65 - Type 1 diabetes mellitus with hyperglycemia Code(s): E11.9 - Type 2 diabetes mellitus without complications Status: Chronic Assessment and Plan: HgbA1C 8.2. Anion gap was slightly elevated in the emergency room prior to IV fluids. Patient admitted to IMU because it did not appear to be DKA. Glucose reviewed on 07/27/2019 with acceptable control. Continue Lantus and meal time insulin. Continue AccuCheks with sliding scale insulin. Continue diabetic diet. (7) Chronic osteomyelitis: Code(s): M86.60 - Other chronic osteomyelitis, unspecified site Status: Chronic Assessment and Plan: Was on Zosyn on admission but stopped per Dr Vivas. Does have PICC line in place. Appreciate ID input. Consider removing PICC if we can get another line. (8) Diabetic foot ulcer: Qualifiers: Diabetes mellitus type: type 1 Diabetic foot ulcer location: midfoot Laterality: left Non-pressure ulcer stage: limited to breakdown of skin Qualified Code(s): E10.621 - Type 1 diabetes mellitus with foot ulcer; L97.421 - Non-pressure chronic ulcer of left heel and midfoot limited to breakdown of skin Code(s): E11.621 - Type 2 diabetes mellitus with foot ulcer; L97.509 - Non-pressure chronic ulcer of other part of unspecified foot with unspecified severity Status: Chronic Assessment and Plan: Has been seen by wound care nurses and appreciate their input. Wound bed mostly clean since mild debridement with growth of some epithelium. IV Zosyn has been stopped. Continue local wound care. Does not appear to have infection at this time. (9) HTN (hypertension):
[2019-07-27] MEDS: ACETAMINOPHEN 500 MG TABLET PO (19:39)
[2019-07-27 19:51] LABS: Glucose Point of Care 87 (65-105)
[2019-07-27] MEDS: ATORVASTATIN 40 MG TABLET 80 MG PO (23:20)
[2019-07-27] MEDS: SENNA/DOCUSATE SODIUM TABLET 2 TAB PO (23:20)
[2019-07-28] VITALS (20 sets, daily range): BP systolic 112–161; BP diastolic 49–76; PULSE 83–103; RESP 16–20; TEMP 36–36.7; O2SAT 94–100
[2019-07-28 05:15] LABS: Hematocrit 23.5 % (37.0-47.0); Hemoglobin 7.2 g/dL (12.0-15.0); Mean Corpuscular HGB Conc 30.6 g/dl (32-36); Mean Corpuscular Hemoglobin 30.1 pg (26-34); Mean Corpuscular Volume 98.3 fl (80-100); Platelet Count Result 309 k/mm3 (150-375); Red Blood Count 2.39 M/mm3 (4.2-5.4); Red Cell Distribution Width 16.7 % (11.5-14.5); White Blood Count 13.3 K/mm3 (4.5-10.0)
[2019-07-28 06:10] LABS: Albumin Level 2.6 g/dL (3.5-5.1); Blood Urea Nitrogen 40 mg/dL (7-17); Calcium 8.2 mg/dL (8.4-10.2); Carbon Dioxide 29 mmol/L (22-30); Chloride 100 mmol/L (98-107); Estimated CRCL calculation 21 ml/min; Estimated Glomerular Filt Rate 15; Glucose 121 mg/dL (65-105); Phosphorus 3.9 mg/dL (2.5-4.5); Potassium 4.5 mmol/L (3.4-5.0); Sodium 135 mmol/L (137-145)
[2019-07-28] MEDS: INSULIN GLARGINE (*BKC) 100 UNITS/ML 22 UNITS SUB-Q (08:14)
[2019-07-28] MEDS: INSULIN ASPART (*BKC) 100 UNITS/ML 7 UNITS SUB-Q (08:14)
[2019-07-28] MEDS: SILVERGEL (ELTA) 45 ML 1 APPLIC TOPICAL (08:23)
--- NOTE | 2019-07-28 08:30 | PC.NURSE ---
Pt to dialysis via hospital bed.
[2019-07-28 09:30] LABS: Glucose Point of Care 116 (65-105)
--- NOTE | 2019-07-28 11:15 | PCPTNOTE ---
Attempted PT eval however pt in dialysis. Will try again this afternoon.
--- NOTE | 2019-07-28 12:19 | PM.PNNEP ---
Progress Note: A&P Assessment and Plan (1) Acute kidney injury: Code(s): N17.9 - Acute kidney failure, unspecified Status: Acute Assessment and Plan: etiology still not entirely clear work-up to date demonstrates: - urine electrolytes are non pre-renal - renal ultrasound shows medical renal disease consistent with her known chronic kidney disease - Renal scan shows uptake without excretion (suggestive of ATN) - no rash or peripheral eosinophilia (although this does not rule out AIN) has blood in the urine - serological testing is pending she still has significant edema and urine output is not improving in spite of diuretics s/p HD catheter placement yesterday - HD yesterday and today will plan renal biopsy tomorrow (2) Chronic kidney disease, stage 3: Code(s): N18.3 - Chronic kidney disease, stage 3 (moderate) Status: Chronic Assessment and Plan: baseline creatinine runs ~ 1.5 - 2.0mg/dl secondary to diabetes and hypertension (3) Diabetic foot ulcer: Qualifiers: Diabetic foot ulcer location: midfoot Diabetes mellitus type: type 1 Laterality: left Non-pressure ulcer stage: limited to breakdown of skin Qualified Code(s): E10.621 - Type 1 diabetes mellitus with foot ulcer; L97.421 - Non-pressure chronic ulcer of left heel and midfoot limited to breakdown of skin Code(s): E11.621 - Type 2 diabetes mellitus with foot ulcer; L97.509 - Non-pressure chronic ulcer of other part of unspecified foot with unspecified severity Status: Chronic Assessment and Plan: local wound care ID recommendations noted (4) Anasarca: Code(s): R60.1 - Generalized edema Status: Acute Assessment and Plan: presumably due to renal dysfunction currently on diuretics (bumex, metolazone, and spironolactone) urine output present but not significant to acheive diuresis this issue is another reason that dialysis is being instituted (5) HTN (hypertension): Qualifiers: Hypertension type: essential hypertension Qualified Code(s): I10 - Essential (primary) hypertension Code(s): I10 - Essential (primary) hypertension Status: Chronic Assessment and Plan: holding steady with current medications follow trend of hemodynamics dialysis and fluid removal should help (6) Hypokalemia: Code(s): E87.6 - Hypokalemia Status: Acute Assessment and Plan: K+ stable will d/c spironolactone follow trend with institution of dialysis Will continue to follow Subjective Date/time seen: 07/28/19 12:19 Tolerating dialysis at the time of my visit (seen at 12:00PM); s/p tunneled HD catheter placement and HD yesterday -- tolerated both procedures reasonably well; had ~ 4L of fluid removed yesterday and should have at least that today if not more; no other acute issues or problems voiced at this time. Exam Narrative: Exam Narrative: General: WD/WN female in NAD Heart: normal S1 and S2; no rub Lungs: decreased at the bases Abdomen: soft, nontender, nondistended, positive bowel sounds Extremities: no cyanosis or clubbing; 2+ edema Skin: warm and intact; left foot ulcer noted Objective Data Vital Signs Vital Signs: Vital Signs Temp Pulse Pulse Resp BP Pulse Ox 07/28/19 11:30 84 119/64 07/28/19 11:15 85 122/49 L 07/28/19 11:00 83 123/63 07/28/19 10:45 84 117/58 L 07/28/19 10:30 85 126/62 07/28/19 10:15 86 117/70 07/28/19 10:00 84 114/56 L 07/28/19 09:45 86 112/61 07/28/19 09:30 87 121/56 L 07/28/19 09:15 88 116/57 L 07/28/19 09:00 88 125/60 07/28/19 08:52 87 120/59 L 07/28/19 08:40 36.7 C 90 16 131/63 07/28/19 06:15 97 07/28/19 06:00 36.7 C 87 16 121/57 L 94 07/27/19 23:28 140/58 L 07/27/19 22:00 36.3 C L 84 20 108/46 L 98 07/27/19 19:15 36.7 C 84 88 18 15
[2019-07-28] MEDS: BUMETANIDE INJ 2.5 MG/10 ML VIAL 2 MG IVPB ×2 (13:34→21:57)
[2019-07-28] MEDS: PANTOPRAZOLE 40 MG TABLET PO ×2 (13:34→21:49)
[2019-07-28] MEDS: SPIRONOLACTONE 25 MG TABLET PO (13:35)
[2019-07-28] MEDS: metOLazone 5 MG TABLET PO (13:35)
[2019-07-28] MEDS: GLUCOSE ORAL GEL 15 GM OF GLUCSE IN 37.5 GM TUBE PO (13:36)
--- NOTE | 2019-07-28 14:02 | P.PNAN_ITS ---
Anes - Prog Note Post-Op Date/Time: 07/28/19 14:02 Cardiovascular status: normal Respiratory status: normal Airway patency: baseline Mental status: baseline Post-Op hydration status: normal Vital Signs: Last Vital Signs Temp 36.6 C 07/28/19 12:33 Pulse 91 07/28/19 12:33 Resp 16 07/28/19 12:33 BP 141/76 H 07/28/19 12:33 Pulse Ox 97 07/28/19 06:15 I/O: Intake & Output 07/27/19 07/28/19 07/28/19 23:59 07:59 15:59 Intake Total 0 240 Output Total 600 5100 Balance -600 -4860 Laboratory Tests 07/28/19 04:53 07/28/19 04:53 07/23/19 07/27/19 07/27/19 15:33 14:08 19:45 WBC RBC Hgb Hct MCV MCH MCHC RDW Plt Count MPV Sodium Potassium Chloride Carbon Dioxide BUN Creatinine Estim Creat Clear Calc Estimated GFR Glucose POC Capillary Glucose 127 H 87 Calcium Phosphorus Albumin Ur MONCHO Interpret 24 hr see below Free Prosperity & Lambda LC Not indicated 07/28/19 07/28/19 07/28/19 04:53 04:53 08:11 WBC 13.3 H RBC 2.39 L Hgb 7.2 L Hct 23.5 L MCV 98.3 MCH 30.1 MCHC 30.6 L RDW 16.7 H Plt Count 309 MPV 10.0 Sodium 135 L Potassium 4.5 Chloride 100 Carbon Dioxide 29 BUN 40 H D Creatinine 3.30 H Estim Creat Clear Calc 21 Estimated GFR 15 L Glucose 121 H POC Capillary Glucose 116 H Calcium 8.2 L Phosphorus 3.9 Albumin 2.6 L Ur MONCHO Interpret 24 hr Free Prosperity & Lambda LC Post-procedural complaints: none Patient Feedback: Patient satisfied with anesthetic care.
[2019-07-28 15:18] LABS: Glucose Point of Care 157 (65-105)
[2019-07-28 15:18] LABS: Glucose Point of Care 62 (65-105)
--- NOTE | 2019-07-28 15:43 | PM.IMPN ---
Progress Note: A&P Assessment and Plan (1) Acute kidney injury superimposed on chronic kidney disease: Code(s): N17.9 - Acute kidney failure, unspecified; N18.9 - Chronic kidney disease, unspecified Status: Acute Assessment and Plan: Creatinine 4.40 on admission which is well above her normal baseline of 1.40-1.80 in May. Renal US showing medical renal disease. Suspect underlying CKD from her diabetes with acute renal failure due to dehydration. Appreciate help from Nephrology. Is now status post placement of temporary dialysis catheter on 07/27/2019. Had hemodialysis yesterday and today. Creatinine 3.30 today. Plan for ultrasound-guided renal biopsy tomorrow. Continue IV Bumex, metolazone and spironolactone. Will continue to monitor. (2) Nausea and vomiting: Qualifiers: Vomiting Intractability: intractable Vomiting type: unspecified Qualified Code(s): R11.2 - Nausea with vomiting, unspecified Code(s): R11.2 - Nausea with vomiting, unspecified Status: Acute Assessment and Plan: Present on admission. Initially thought related to DKA but then felt related to antibiotics. Appreciate help from GI. Consider gastroparesis but doing well off the Reglan. EGD showing Grade III reflux esophagitis. RUQ ultrasound negative. Continues to tolerate diet with no current symptoms. Will continue Protonix. Plan for outpatient follow-up EGD. (3) Reflux esophagitis: Code(s): K21.0 - Gastro-esophageal reflux disease with esophagitis Status: Acute Assessment and Plan: As seen on EGD. Continue oral Protonix. Will follow. (4) Diabetes mellitus: Qualifiers: Diabetes mellitus complication status: with hyperglycemia Diabetes mellitus type: type 1 Qualified Code(s): E10.65 - Type 1 diabetes mellitus with hyperglycemia Code(s): E11.9 - Type 2 diabetes mellitus without complications Status: Chronic Assessment and Plan: HgbA1C 8.2. Anion gap was slightly elevated in the emergency room prior to IV fluids. Patient admitted to IMU because it did not appear to be DKA. Glucose reviewed on 07/28/2019. Did have lower levels earlier today. Will hold mealtime insulin but continue current Lantus. Continue sliding scale insulin. Remains on diabetic diet. Will adjust treatment as needed. (5) Hypokalemia: Code(s): E87.6 - Hypokalemia Status: Acute Assessment and Plan: Resolved. Potassium 4.5 today. Will continue to follow. (6) Normocytic anemia: Code(s): D64.9 - Anemia, unspecified Status: Chronic Assessment and Plan: Hemoglobin 10.9 on admission but from there has been slowly trending downward. Hemoglobin slightly lower but stable at 7.2 today. Most likely related to renal failure with no sign of acute blood loss. Continue Epogen. Iron studies completed. Will continue to monitor. (7) Chronic osteomyelitis: Code(s): M86.60 - Other chronic osteomyelitis, unspecified site Status: Chronic Assessment and Plan: Was on IV Zosyn on admission but stopped per Dr Vivas. Does have PICC line in place. Appreciate ID input. Consider removing PICC if we can get another line. (8) Diabetic foot ulcer: Qualifiers: Diabetes mellitus type: type 1 Diabetic foot ulcer location: midfoot Laterality: left Non-pressure ulcer stage: limited to breakdown of skin Qualified Code(s): E10.621 - Type 1 diabetes mellitus with foot ulcer; L97.421 - Non-pressure chronic ulcer of left heel and midfoot limited to breakdown of skin Code(s): E11.621 - Type 2 diabetes mellitus with foot ulcer; L97.509 - Non-pressure chronic ulcer of other part of unspecified foot with unspecified severity Status: Chronic Assessment and Plan: Has been seen by wound care nurses and appreciate their input. Wound bed mostly clean since mild debridement with growth of some epithelium. IV Zosyn has be
[2019-07-28 19:13] LABS: Glucose Point of Care 163 (65-105)
[2019-07-28] MEDS: ATORVASTATIN 40 MG TABLET 80 MG PO (21:48)
[2019-07-28] MEDS: SENNA/DOCUSATE SODIUM TABLET 2 TAB PO (21:49)
[2019-07-28 22:01] LABS: Glucose Point of Care 222 (65-105)
[2019-07-29 05:43] LABS: Hemoglobin 7.8 g/dL (12.0-15.0); Mean Corpuscular HGB Conc 31.2 g/dl (32-36); Mean Corpuscular Hemoglobin 30.2 pg (26-34); Mean Corpuscular Volume 96.9 fl (80-100); Mean Platelet Volume 9.6 fl (7.4-10.4); Platelet Count Result 292 k/mm3 (150-375); Red Blood Count 2.58 M/mm3 (4.2-5.4); Red Cell Distribution Width 16.3 % (11.5-14.5); White Blood Count 12.3 K/mm3 (4.5-10.0)
[2019-07-29 05:55] LABS: Albumin Level 2.7 g/dL (3.5-5.1); Blood Urea Nitrogen 29 mg/dL (7-17); Calcium 8.3 mg/dL (8.4-10.2); Carbon Dioxide 32 mmol/L (22-30); Chloride 95 mmol/L (98-107); Estimated CRCL calculation 22 ml/min; Estimated Glomerular Filt Rate 16; Glucose 125 mg/dL (65-105); Phosphorus 4.1 mg/dL (2.5-4.5); Potassium 4.4 mmol/L (3.4-5.0); Sodium 132 mmol/L (137-145)
[2019-07-29 06:00] VITALS: BP 144/64; PULSE 94; RESP 18; TEMP 37.6; O2SAT 94
[2019-07-29 06:36] LABS: Glucose Point of Care 120 (65-105)
[2019-07-29 07:54] VITALS: PULSE 94; RESP 18; O2SAT 94
[2019-07-29] MEDS: BUMETANIDE INJ 2.5 MG/10 ML VIAL 2 MG IVPB ×2 (09:34→18:01)
[2019-07-29] MEDS: PANTOPRAZOLE 40 MG TABLET PO ×2 (09:35→20:47)
[2019-07-29] MEDS: metOLazone 5 MG TABLET PO (09:35)
[2019-07-29] MEDS: SILVERGEL (ELTA) 45 ML 1 APPLIC TOPICAL (09:36)
[2019-07-29 11:48] LABS: Glucose Point of Care 92 (65-105)
--- NOTE | 2019-07-29 12:42 | PCPTNOTE ---
Attempted to see patient for Physical Therapy this PM. Patient was not in her room. [employer] OFF[employer]ER stated that patient was out of the room for a procedure.
--- NOTE | 2019-07-29 13:41 | PCDIET ---
Nutrition Follow-Up Complete: Decreased sodium needs related to hypertension and kidney disease as evidenced by elevated blood pressure, decreased urine output, possible need for dialysis. Intakes >75% Goal met. Patient has consumed 75-100% of all meals (except for meals w/ NPO orders). Nutrition recommendation: Renal Dialysis Diet order appropriate as pt has begun dialysis treatment, thus caloric and protein needs are increased, while decreasing Na, K, and P needs. Recommend placement of a fluid restriction, 1500ml, due to decreased kidney function. As patient has begun dialysis treatment, caloric and protein needs have changed. Recommended caloric intake range of 1900-2240kcals/day and protein range of 76-89g/day. Recommended caloric intake based off of 30-35kcals/kg AdjBW and protein 1.2-1.4g/kg AdjBW. Last recorded weight is 88.2 kg. Bowel Motility: 07/23. Docusate started 07/27 Labs Reviewed: Na (132), K (4.4), GFR (16), BUN (29), Cr (3.2), Glu (125), P(4.1) Meds Noted:Docusate, Bumex, Protonix, KCl, Novolog, Zaroxolyn Additional Notes: Briefly discussed with patient why renal dialysis diet implemented (higher caloric and protein needs,decreased sodium, potassium, and phosphorus), importance of fluid and sodium restriction. Went more in depth with sodium restriction, providing handout. Patient slightly receptive to information. Will monitor labs (especially Na, K, P, Glu, BUN), intake, I&Os and weight. Follow up in 7 days.
[2019-07-29 13:57] LABS: Glucose Point of Care 89 (65-105)
[2019-07-29 14:00] VITALS: BP 140/59; PULSE 92; RESP 16; TEMP 36.9; O2SAT 99
[2019-07-29 14:02] VITALS: BP 176/81; PULSE 92; RESP 30; O2SAT 93
[2019-07-29 14:03] VITALS: BP 158/76; PULSE 91; RESP 24; O2SAT 94
--- NOTE | 2019-07-29 14:22 | PCNSR ---
On 07/29/19, Andreea Doran, provided care and completed [employer] documentation on this patient. I have reviewed the student's documentation and agree with the findings.
--- NOTE | 2019-07-29 14:28 | PM.IMPN ---
Progress Note: A&P Assessment and Plan (1) Acute kidney injury superimposed on chronic kidney disease: Code(s): N17.9 - Acute kidney failure, unspecified; N18.9 - Chronic kidney disease, unspecified Status: Acute Assessment and Plan: Appreciate help from Neurology. Creatinine 4.40 on admission which is well above her normal baseline of 1.40-1.80 in May. Renal US consistent with medical renal disease. Suspect underlying CKD from her diabetes with acute renal failure due to dehydration. Now S/P placement of temporary dialysis catheter on 07/27/2019. Had hemodialysis on 07/27/2019 and 07/28/2019. Ultrasound-guided renal biopsy completed today with results pending. Creatinine 3.20 today. Continue IV Bumex, metolazone and spironolactone. Will continue to monitor. Overall has improved from admission. (2) Diabetes mellitus: Qualifiers: Diabetes mellitus complication status: with hyperglycemia Diabetes mellitus type: type 1 Qualified Code(s): E10.65 - Type 1 diabetes mellitus with hyperglycemia Code(s): E11.9 - Type 2 diabetes mellitus without complications Status: Chronic Assessment and Plan: HgbA1C 8.2. Anion gap was slightly elevated in the emergency room prior to IV fluids. Patient admitted to IMU because it did not appear to be DKA. Glucose reviewed on 07/29/2019. Glucose levels variable today but did have procedure this morning. With lower levels glucose after procedure, it Lantus not given. Scheduled mealtime insulin on hold due to lower glucose levels and yesterday. Plan to resume Lantus in a.m.. Continue sliding scale insulin. Continue diabetic diet. Will adjust treatment as needed while monitoring. (3) Nausea and vomiting: Qualifiers: Vomiting Intractability: intractable Vomiting type: unspecified Qualified Code(s): R11.2 - Nausea with vomiting, unspecified Code(s): R11.2 - Nausea with vomiting, unspecified Status: Acute Assessment and Plan: Present on admission but now resolved. Initially thought related to DKA but then felt related to antibiotics. Appreciate help from GI. Gastroparesis consider but doing well off the Reglan. EGD showing Grade III reflux esophagitis. RUQ ultrasound negative. Continues to tolerate diet. Will continue Protonix. Plan for outpatient follow-up EGD. (4) Reflux esophagitis: Code(s): K21.0 - Gastro-esophageal reflux disease with esophagitis Status: Acute Assessment and Plan: As seen on EGD. Continue oral Protonix. Will follow. (5) Hypokalemia: Code(s): E87.6 - Hypokalemia Status: Acute Assessment and Plan: Resolved. Potassium 4.4 today. Will continue to follow. (6) Normocytic anemia: Code(s): D64.9 - Anemia, unspecified Status: Chronic Assessment and Plan: Hemoglobin 10.9 on admission but from there has been slowly trending downward. Hemoglobin stable today at 7.8. Most likely related to renal failure with no sign of acute blood loss. Continue Epogen. Iron studies completed. Will continue to monitor. (7) Chronic osteomyelitis: Code(s): M86.60 - Other chronic osteomyelitis, unspecified site Status: Chronic Assessment and Plan: Was on IV Zosyn on admission but stopped per Dr Vivas. Does have PICC line in place. Appreciate ID input. Consider removing PICC if we can get another line. (8) Diabetic foot ulcer: Qualifiers: Diabetes mellitus type: type 1 Diabetic foot ulcer location: midfoot Laterality: left Non-pressure ulcer stage: limited to breakdown of skin Qualified Code(s): E10.621 - Type 1 diabetes mellitus with foot ulcer; L97.421 - Non-pressure chronic ulcer of left heel and midfoot limited to breakdown of skin Code(s): E11.621 - Type 2 diabetes mellitus with foot ulcer; L97.509 - Non-pressure chronic ulcer of other part of unspecified foot with unspecified severity Stat
--- NOTE | 2019-07-29 15:43 | P.PNNP_ITS ---
Progress Note: A&P Assessment and Plan (1) Acute kidney injury: Code(s): N17.9 - Acute kidney failure, unspecified Status: Acute Assessment and Plan: * etiology still not entirely clear * work-up to date demonstrates: - urine electrolytes are non pre-renal - renal ultrasound shows medical renal disease consistent with her known chronic kidney disease - Renal scan shows uptake without excretion (suggestive of ATN) - no rash or peripheral eosinophilia (although this does not rule out A IN) * has blood in the urine - serological testing is pending * she still has significant edema with suboptimal UOP * s/p HD catheter placement 07/27/19; HD on 07/27 and 07/28; likely HD tomorrow * s/p renal biopsy today -- hopefully some prelim results tomorrow (2) Chronic kidney disease, stage 3: Code(s): N18.3 - Chronic kidney disease, stage 3 (moderate) Status: Chronic Assessment and Plan: * baseline creatinine runs ~ 1.5 - 2.0mg/dl * secondary to diabetes and hypertension (3) Diabetic foot ulcer: Qualifiers: Diabetes mellitus type: type 1 Diabetic foot ulcer location: midfoot Laterality: left Non-pressure ulcer stage: limited to breakdown of skin Enmanuel lified Code(s): E10.621 - Type 1 diabetes mellitus with foot ulcer; L97.421 - Non-pressure chronic ulcer of left heel and midfoot limited to breakdown of skin Code(s): E11.621 - Type 2 diabetes mellitus with foot ulcer; L97.509 - Non-pressure chr onic ulcer of other part of unspecified foot with unspecified severity Status: Chronic Assessment and Plan: * local wound care * ID recommendations noted (4) Anasarca: Code(s): R60.1 - Generalized edema Status: Acute Assessment and Plan: * presumably due to renal dysfunction * currently on diuretics (bumex and metolazone) * urine output present but not significant to achieve diuresis * ~ 10L fluid removal since dialysis started (5) HTN (hypertension): Qualifiers: Hypertension type: essential hypertension Qualified Code(s): I10 - Essential (primary) hypertension Code(s): I10 - Essential (primary) hypertension Status: Chronic Assessment and Plan: * holding steady with current medications * follow trend of hemodynamics * dialysis and fluid removal should help (6) Hypokalemia: Code(s): E87.6 - Hypokalemia Status: Acute Assessment and Plan: * K+ stable * off spironolactone * follow trend with institution of dialysis Will continue to follow Subjective Date/time seen: 07/29/19 15:43 Tolerated ultrasound-guided renal biopsy earlier today as well as dialysis+ DUF yesterday; no apparent distress voiced at this time; facial swelling/edema better. Exam Narrative: Exam Narrative: General: WD/WN female in NAD Heart: normal S1 and S2; no rub Lungs: decreased at the bases Abdomen: soft, nontender, nondistended, positive bowel sounds Extremities: no cyanosis or clubbing; 2+ edema Skin: warm and intact; left foot ulcer noted Objective Data Vital Signs Vital Signs: Vital Signs Temp Pulse Resp BP Pulse Ox 07/29/19 14:03 91 24 H 158/76 H 94 07/29/19 14:02 92 30 H 176/81 H 93 07/29/19 14:00 36.9 C 92 16 140/59 L 99 07/29/19 07:54 94 18 94 07/29/19 06:00 37.6 C H 94 18 144/64 H 94 07/28/19 21:58 36.6 C 103 H 20 161/64 H 100
--- NOTE | 2019-07-29 15:43 | PM.PNNEP ---
Progress Note: A&P Assessment and Plan (1) Acute kidney injury: Code(s): N17.9 - Acute kidney failure, unspecified Status: Acute Assessment and Plan: etiology still not entirely clear work-up to date demonstrates: - urine electrolytes are non pre-renal - renal ultrasound shows medical renal disease consistent with her known chronic kidney disease - Renal scan shows uptake without excretion (suggestive of ATN) - no rash or peripheral eosinophilia (although this does not rule out AIN) has blood in the urine - serological testing is pending she still has significant edema with suboptimal UOP s/p HD catheter placement 07/27/19; HD on 07/27 and 07/28; likely HD tomorrow s/p renal biopsy today -- hopefully some prelim results tomorrow (2) Chronic kidney disease, stage 3: Code(s): N18.3 - Chronic kidney disease, stage 3 (moderate) Status: Chronic Assessment and Plan: baseline creatinine runs ~ 1.5 - 2.0mg/dl secondary to diabetes and hypertension (3) Diabetic foot ulcer: Qualifiers: Diabetes mellitus type: type 1 Diabetic foot ulcer location: midfoot Laterality: left Non-pressure ulcer stage: limited to breakdown of skin Qualified Code(s): E10.621 - Type 1 diabetes mellitus with foot ulcer; L97.421 - Non-pressure chronic ulcer of left heel and midfoot limited to breakdown of skin Code(s): E11.621 - Type 2 diabetes mellitus with foot ulcer; L97.509 - Non-pressure chronic ulcer of other part of unspecified foot with unspecified severity Status: Chronic Assessment and Plan: local wound care ID recommendations noted (4) Anasarca: Code(s): R60.1 - Generalized edema Status: Acute Assessment and Plan: presumably due to renal dysfunction currently on diuretics (bumex and metolazone) urine output present but not significant to achieve diuresis ~ 10L fluid removal since dialysis started (5) HTN (hypertension): Qualifiers: Hypertension type: essential hypertension Qualified Code(s): I10 - Essential (primary) hypertension Code(s): I10 - Essential (primary) hypertension Status: Chronic Assessment and Plan: holding steady with current medications follow trend of hemodynamics dialysis and fluid removal should help (6) Hypokalemia: Code(s): E87.6 - Hypokalemia Status: Acute Assessment and Plan: K+ stable off spironolactone follow trend with institution of dialysis Will continue to follow Subjective Date/time seen: 07/29/19 15:43 Tolerated ultrasound-guided renal biopsy earlier today as well as dialysis+ DUF yesterday; no apparent distress voiced at this time; facial swelling/edema better. Exam Narrative: Exam Narrative: General: WD/WN female in NAD Heart: normal S1 and S2; no rub Lungs: decreased at the bases Abdomen: soft, nontender, nondistended, positive bowel sounds Extremities: no cyanosis or clubbing; 2+ edema Skin: warm and intact; left foot ulcer noted Objective Data Vital Signs Vital Signs: Vital Signs Temp Pulse Resp BP Pulse Ox 07/29/19 14:03 91 24 H 158/76 H 94 07/29/19 14:02 92 30 H 176/81 H 93 07/29/19 14:00 36.9 C 92 16 140/59 L 99 07/29/19 07:54 94 18 94 07/29/19 06:00 37.6 C H 94 18 144/64 H 94 07/28/19 21:58 36.6 C 103 H 20 161/64 H 100 Intake/Output Intake/Output: Intake & Output 07/26/19 07/27/19 07/28/19 07/29/19 23:59 23:59 23:59 23:59 Intake Total 2400 400 1160 300 Output Total 550 1500 47734 800 Balance 6241 -0031 -9440 -500 Meds/Results Medications: Active Medications Generic Name Dose Route Start Last Admin Trade Name Freq PRN Reason Stop Dose Admin Acetaminophen 500 mg 07/27/19 15:43 07/27/19 19:39 Tylenol Tablet PO 500 mg Q6H PRN Administration Mild Pain (1-3) or Fever Hydrocodone Bitart/Acetaminophen 1 tab 07/27/19 15:43 07/01
[2019-07-29 17:46] LABS: Glucose Point of Care 235 (65-105)
[2019-07-29] MEDS: INSULIN ASPART (*BKC) 100 UNITS/ML SUB-Q (18:01)
[2019-07-29 20:45] LABS: Glucose Point of Care 331 (65-105)
[2019-07-29] MEDS: SENNA/DOCUSATE SODIUM TABLET 2 TAB PO (20:47)
[2019-07-29] MEDS: ATORVASTATIN 40 MG TABLET 80 MG PO (20:47)
[2019-07-29 21:44] VITALS: BP 153/64; PULSE 98; RESP 20; TEMP 37.1; O2SAT 99
[2019-07-30] VITALS (20 sets, daily range): BP systolic 135–172; BP diastolic 62–81; PULSE 80–111; RESP 16–21; TEMP 36.1–37.7; O2SAT 93–100
[2019-07-30 05:35] LABS: Hematocrit 24.9 % (37.0-47.0); Hemoglobin 7.8 g/dL (12.0-15.0); Mean Corpuscular HGB Conc 31.3 g/dl (32-36); Mean Corpuscular Hemoglobin 30.2 pg (26-34); Mean Corpuscular Volume 96.5 fl (80-100); Mean Platelet Volume 9.7 fl (7.4-10.4); Platelet Count Result 295 k/mm3 (150-375); Red Blood Count 2.58 M/mm3 (4.2-5.4); Red Cell Distribution Width 16.4 % (11.5-14.5); White Blood Count 12.3 K/mm3 (4.5-10.0)
[2019-07-30 05:40] LABS: Albumin Level 2.7 g/dL (3.5-5.1); Blood Urea Nitrogen 30 mg/dL (7-17); Calcium 8.3 mg/dL (8.4-10.2); Carbon Dioxide 30 mmol/L (22-30); Chloride 92 mmol/L (98-107); Estimated CRCL calculation 18 ml/min; Estimated Glomerular Filt Rate 13; Glucose 281 mg/dL (65-105); Phosphorus 4.3 mg/dL (2.5-4.5); Potassium 4.2 mmol/L (3.4-5.0); Sodium 131 mmol/L (137-145)
[2019-07-30] MEDS: INSULIN ASPART (*BKC) 100 UNITS/ML SUB-Q ×2 (08:00→18:07)
[2019-07-30] MEDS: INSULIN GLARGINE (*BKC) 100 UNITS/ML 22 UNITS SUB-Q (08:01)
[2019-07-30] MEDS: SILVERGEL (ELTA) 45 ML 1 APPLIC TOPICAL (08:07)
[2019-07-30] MEDS: PANTOPRAZOLE 40 MG TABLET PO ×2 (08:07→21:13)
[2019-07-30] MEDS: metOLazone 5 MG TABLET PO (08:07)
[2019-07-30] MEDS: BUMETANIDE INJ 2.5 MG/10 ML VIAL 2 MG IVPB ×2 (08:26→17:56)
--- NOTE | 2019-07-30 08:30 | PC.NURSE ---
Patient to dialysis per bed.
[2019-07-30] MEDS: EPOETIN ALFA 20,000 UNITS/ML VIAL 20000 UNITS IV PUSH (09:59)
[2019-07-30 11:02] LABS: Glucose Point of Care 247 (65-105)
--- NOTE | 2019-07-30 12:04 | PM.PNNEP ---
Progress Note: A&P Assessment and Plan (1) Acute kidney injury: Code(s): N17.9 - Acute kidney failure, unspecified Status: Acute Assessment and Plan: etiology still not entirely clear work-up to date demonstrates: - urine electrolytes are non pre-renal - renal ultrasound shows medical renal disease consistent with her known chronic kidney disease - Renal scan shows uptake without excretion (suggestive of ATN) - no rash or peripheral eosinophilia (although this does not rule out AIN) has blood in the urine - serological testing is pending s/p HD catheter placement 07/27/19; HD on 07/27 and 07/28; HD today s/p renal biopsy yesterday -- hopefully some prelim results today (2) Chronic kidney disease, stage 3: Code(s): N18.3 - Chronic kidney disease, stage 3 (moderate) Status: Chronic Assessment and Plan: baseline creatinine runs ~ 1.5 - 2.0mg/dl secondary to diabetes and hypertension (3) Diabetic foot ulcer: Qualifiers: Diabetic foot ulcer location: midfoot Diabetes mellitus type: type 1 Laterality: left Non-pressure ulcer stage: limited to breakdown of skin Qualified Code(s): E10.621 - Type 1 diabetes mellitus with foot ulcer; L97.421 - Non-pressure chronic ulcer of left heel and midfoot limited to breakdown of skin Code(s): E11.621 - Type 2 diabetes mellitus with foot ulcer; L97.509 - Non-pressure chronic ulcer of other part of unspecified foot with unspecified severity Status: Chronic Assessment and Plan: local wound care ID recommendations noted (4) Anasarca: Code(s): R60.1 - Generalized edema Status: Acute Assessment and Plan: presumably due to renal dysfunction currently on diuretics (bumex and metolazone) urine output present but not significant to achieve diuresis ~ 10L fluid removal since dialysis started -- going for another 3 - 4L today (5) HTN (hypertension): Qualifiers: Hypertension type: essential hypertension Qualified Code(s): I10 - Essential (primary) hypertension Code(s): I10 - Essential (primary) hypertension Status: Chronic Assessment and Plan: holding steady with current medications follow trend of hemodynamics dialysis and fluid removal should help as well (6) Hypokalemia: Code(s): E87.6 - Hypokalemia Status: Acute Assessment and Plan: K+ stable off spironolactone follow trend with institution of dialysis Will continue to follow Subjective Date/time seen: 07/30/19 12:04 Tolerating dialysis at the time of my visit (seen on HD at ~ 11:30AM); no apparent issues or problems to report; feels her fluid status has improved with dialytic intervention. Exam Narrative: Exam Narrative: General: WD/WN female in NAD Heart: normal S1 and S2; no rub Lungs: decreased at the bases Abdomen: soft, nontender, nondistended, positive bowel sounds Extremities: no cyanosis or clubbing; 2+ edema (seem softer) Skin: no rash or nodules; left foot ulcer noted Objective Data Vital Signs Vital Signs: Vital Signs Temp Pulse Resp BP Pulse Ox 07/30/19 11:45 89 138/72 07/30/19 11:30 88 149/70 H 07/30/19 11:15 89 149/73 H 07/30/19 11:00 89 137/72 07/30/19 10:45 87 147/72 H 07/30/19 10:30 88 145/70 H 07/30/19 10:15 85 135/67 07/30/19 10:00 88 142/67 H 07/30/19 09:30 92 165/79 H 07/30/19 09:17 36.7 C 95 20 169/77 H 100 07/30/19 09:15 94 172/81 H 07/30/19 09:10 95 169/79 H 07/30/19 05:53 37.7 C H 111 H 18 144/68 H 93 07/29/19 21:44 37.1 C 98 20 153/64 H 99 07/29/19 14:03 91 24 H 158/76 H 94 07/29/19 14:02 92 30 H 176/81 H 93 07/29/19 14:00 36.9 C 92 16 140/59 L 99 Intake/Output Intake/Output: Intake & Output 07/27/19 07/28/19 07/29/19 07/30/19 23:59 23:59 23:59 23:59 Intake Total 400 1160 1020 660 Output Total 1500
--- NOTE | 2019-07-30 13:15 | PC.NURSE ---
Pt returned from dialysis per bed
[2019-07-30 14:48] LABS: Glucose Point of Care 196 (65-105)
--- NOTE | 2019-07-30 18:15 | PM.IMPN ---
Progress Note: A&P Assessment and Plan (1) Acute kidney injury superimposed on chronic kidney disease: Code(s): N17.9 - Acute kidney failure, unspecified; N18.9 - Chronic kidney disease, unspecified Status: Acute Assessment and Plan: Appreciate help from Neurology. Creatinine 4.40 on admission which is well above her normal baseline of 1.40-1.80 in May. Renal US consistent with medical renal disease. Suspect underlying CKD from her diabetes with acute renal failure due to dehydration. Now S/P placement of temporary dialysis catheter on 07/27/2019. Had hemodialysis on 07/27/2019, 07/28/2019 and 07/30/2019. Ultrasound-guided renal biopsy completed today with results to nephrology as showing changes from diabetes. Creatinine 3.80 today. Continue IV Bumex, metolazone and spironolactone. Plan for hemodialysis again tomorrow. Discussed with Dr. Vizcaino today. Anticipate discharge tomorrow after hemodialysis. (2) Diabetes mellitus: Qualifiers: Diabetes mellitus type: type 1 Diabetes mellitus complication status: with hyperglycemia Qualified Code(s): E10.65 - Type 1 diabetes mellitus with hyperglycemia Code(s): E11.9 - Type 2 diabetes mellitus without complications Status: Chronic Assessment and Plan: HgbA1C 8.2. Anion gap was slightly elevated in the emergency room prior to IV fluids. Patient admitted to IMU because it did not appear to be DKA. Glucose reviewed on 07/30/2019. Glucose levels consistently elevated today. Continue Lantus. Will resume scheduled mealtime insulin. Continue sliding scale. Continue to monitor while here and adjust treatment as needed. (3) Nausea and vomiting: Qualifiers: Vomiting Intractability: intractable Vomiting type: unspecified Qualified Code(s): R11.2 - Nausea with vomiting, unspecified Code(s): R11.2 - Nausea with vomiting, unspecified Status: Acute Assessment and Plan: Present on admission but now resolved. Initially thought related to DKA but then felt related to antibiotics. Appreciate help from GI. Gastroparesis consider but doing well off the Reglan. EGD showing Grade III reflux esophagitis. RUQ ultrasound negative. Continues to tolerate diet. Will continue Protonix. Plan for outpatient follow-up EGD. (4) Reflux esophagitis: Code(s): K21.0 - Gastro-esophageal reflux disease with esophagitis Status: Acute Assessment and Plan: As seen on EGD. Continue oral Protonix. Will follow. (5) Hypokalemia: Code(s): E87.6 - Hypokalemia Status: Acute Assessment and Plan: Resolved. Potassium 4.2 today. Will continue to follow. (6) Normocytic anemia: Code(s): D64.9 - Anemia, unspecified Status: Chronic Assessment and Plan: Hemoglobin 10.9 on admission but from there has been slowly trending downward. Hemoglobin stable and unchanged today at 7.8. Most likely related to renal failure with no sign of acute blood loss. Continue Epogen. Iron studies completed. Will continue to monitor. (7) Chronic osteomyelitis: Code(s): M86.60 - Other chronic osteomyelitis, unspecified site Status: Chronic Assessment and Plan: Was on IV Zosyn on admission but stopped per Dr Vivas. Does have PICC line in place. Appreciate ID input. (8) Diabetic foot ulcer: Qualifiers: Diabetic foot ulcer location: midfoot Diabetes mellitus type: type 1 Laterality: left Non-pressure ulcer stage: limited to breakdown of skin Qualified Code(s): E10.621 - Type 1 diabetes mellitus with foot ulcer; L97.421 - Non-pressure chronic ulcer of left heel and midfoot limited to breakdown of skin Code(s): E11.621 - Type 2 diabetes mellitus with foot ulcer; L97.509 - Non-pressure chronic ulcer of other part of unspecified foot with unspecified severity Status: Chronic Assessment and Plan: Has been seen by wound care nurses and appreciate t
[2019-07-30 18:28] LABS: Glucose Point of Care 302 (65-105)
[2019-07-30] MEDS: ATORVASTATIN 40 MG TABLET 80 MG PO (21:11)
[2019-07-30] MEDS: SENNA/DOCUSATE SODIUM TABLET 2 TAB PO (21:12)
[2019-07-30 21:17] LABS: Glucose Point of Care 381 (65-105)
[2019-07-31] VITALS (18 sets, daily range): BP systolic 113–148; BP diastolic 52–71; PULSE 78–87; RESP 16–18; TEMP 36.5–37; O2SAT 96
[2019-07-31 05:18] LABS: Albumin Level 2.7 g/dL (3.5-5.1); Blood Urea Nitrogen 18 mg/dL (7-17); Calcium 8.2 mg/dL (8.4-10.2); Carbon Dioxide 29 mmol/L (22-30); Chloride 93 mmol/L (98-107); Estimated CRCL calculation 26 ml/min; Estimated Glomerular Filt Rate 19; Glucose 276 mg/dL (65-105); Phosphorus 3.6 mg/dL (2.5-4.5); Potassium 4.1 mmol/L (3.4-5.0); Sodium 130 mmol/L (137-145)
[2019-07-31] MEDS: INSULIN ASPART (*BKC) 100 UNITS/ML SUB-Q ×2 (08:14→08:19)
[2019-07-31] MEDS: INSULIN GLARGINE (*BKC) 100 UNITS/ML 22 UNITS SUB-Q (08:19)
[2019-07-31] MEDS: SILVERGEL (ELTA) 45 ML 1 APPLIC TOPICAL (08:22)
[2019-07-31 08:27] LABS: Glucose Point of Care 253 (65-105)
--- NOTE | 2019-07-31 08:54 | PC.NURSE ---
Pt to dialysis via hospital bed.
--- NOTE | 2019-07-31 11:14 | PM.PNNEP ---
Progress Note: A&P Assessment and Plan (1) Acute kidney injury: Code(s): N17.9 - Acute kidney failure, unspecified Status: Acute Assessment and Plan: etiology still not entirely clear work-up to date demonstrates: - urine electrolytes are non pre-renal - renal ultrasound shows medical renal disease consistent with her known chronic kidney disease - Renal scan shows uptake without excretion (suggestive of ATN) - no rash or peripheral eosinophilia (although this does not rule out AIN) has blood in the urine - serological testing is pending s/p HD catheter placement 07/27/19; HD on 07/27 and 07/28; HD today s/p renal biopsy . Continue to take fluid off. She is going home today and will see Dr. Forbes as follow-up. (2) Chronic kidney disease, stage 3: Code(s): N18.3 - Chronic kidney disease, stage 3 (moderate) Status: Chronic Assessment and Plan: baseline creatinine runs ~ 1.5 - 2.0mg/dl secondary to diabetes and hypertension (3) Diabetic foot ulcer: Qualifiers: Diabetic foot ulcer location: midfoot Diabetes mellitus type: type 1 Laterality: left Non-pressure ulcer stage: limited to breakdown of skin Qualified Code(s): E10.621 - Type 1 diabetes mellitus with foot ulcer; L97.421 - Non-pressure chronic ulcer of left heel and midfoot limited to breakdown of skin Code(s): E11.621 - Type 2 diabetes mellitus with foot ulcer; L97.509 - Non-pressure chronic ulcer of other part of unspecified foot with unspecified severity Status: Chronic Assessment and Plan: local wound care ID recommendations noted (4) Anasarca: Code(s): R60.1 - Generalized edema Status: Acute Assessment and Plan: Improved with dialysis (5) HTN (hypertension): Qualifiers: Hypertension type: essential hypertension Qualified Code(s): I10 - Essential (primary) hypertension Code(s): I10 - Essential (primary) hypertension Status: Chronic Assessment and Plan: Under better control (6) Hypokalemia: Code(s): E87.6 - Hypokalemia Status: Acute Assessment and Plan: K+ stable off spironolactone follow trend with institution of dialysis Will continue to follow Subjective Date/time seen: 07/31/19 11:14 Interval history: Patient is feeling better today. Edema is much better. She is on dialysis now and tolerating well. She was seen at 11 a.m.. Blood pressure is doing well. Review of Systems Cardiovascular: Cardiovascular: Reports no additional cardiovascular complaints Respiratory: Respiratory: Reports no additional respiratory complaints Gastrointestinal: Gastrointestinal: Reports no additional gastrointestinal complaints Genitourinary: Genitourinary: Reports no additional female genitourinary complaints Exam Narrative: Exam Narrative: General: WD/WN female in NAD Heart: normal S1 and S2; no rub Lungs: decreased at the bases Abdomen: soft, nontender, nondistended, positive bowel sounds Extremities: no cyanosis or clubbing; 1-2+ edema Skin: no rash or nodules; left foot ulcer noted Objective Data Vital Signs Vital Signs: Vital Signs - 24 hr 07/30/19 11:15 07/30/19 11:30 07/30/19 11:45 Temperature Pulse Rate 89 88 89 Pulse Rate [Apical] Respiratory Rate Blood Pressure 149/73 H 149/70 H 138/72 Pulse Oximetry 07/30/19 12:00 07/30/19 12:15 07/30/19 12:30 Temperature Pulse Rate 90 89 92 Pulse Rate [Apical] Respiratory Rate Blood Pressure 136/80 144/74 H 157/80 H Pulse Oximetry 07/30/19 12:45 07/30/19 14:00 07/30/19 22:07 Temperature 36.6 C 36.4 C 36.1 C L Pulse Rate 80 100 99 Pulse Rate [Apical] 96 Respiratory Rate 16 21 H Blood Pressure 160/72 H 137/62 152/65 H Pulse Oximetry 98 100 07/31/19 06:00 07/31/19 09:13 07/31/19 09:29 Temperature 36.5 C 36.9 C Pulse Rate 78 82 84 Pulse Rate [Apical]
--- NOTE | 2019-07-31 11:44 | PM.IMPN ---
Progress Note: A&P Assessment and Plan (1) Acute kidney injury superimposed on chronic kidney disease: Code(s): N17.9 - Acute kidney failure, unspecified; N18.9 - Chronic kidney disease, unspecified Status: Acute Assessment and Plan: Appreciate help from Neurology. Creatinine 4.40 on admission which is well above her normal baseline of 1.40-1.80 in May. Renal US consistent with medical renal disease. Suspect underlying CKD from her diabetes with acute renal failure due to dehydration. Now S/P placement of temporary dialysis catheter on 07/27/2019. Had hemodialysis on 07/27/2019, 07/28/2019, 07/30/2019 and today. Ultrasound-guided renal biopsy completed today with preliminary results to nephrology as showing changes from diabetes. Creatinine 2.70 today. Has been on IV Bumex, metolazone and spironolactone. Discussed with Dr. Estrada today. Will discharge home after hemodialysis but switch to Lasix 80 mg b.i.d. along with metolazone and spironolactone. Will follow-up with her regular account engineer, Dr. Forbes as an outpatient. Plan for Friday, Friday, Friday hemodialysis. (2) Diabetes mellitus: Qualifiers: Diabetes mellitus complication status: with hyperglycemia Diabetes mellitus type: type 1 Qualified Code(s): E10.65 - Type 1 diabetes mellitus with hyperglycemia Code(s): E11.9 - Type 2 diabetes mellitus without complications Status: Chronic Assessment and Plan: HgbA1C 8.2. Anion gap was slightly elevated in the emergency room prior to IV fluids. Patient admitted to IMU because it did not appear to be DKA. Glucose reviewed on 07/31/2019. Glucose levels still elevated. Will increase her mealtime insulin. Continue Lantus. Will need to follow as an outpatient. (3) Nausea and vomiting: Qualifiers: Vomiting Intractability: intractable Vomiting type: unspecified Qualified Code(s): R11.2 - Nausea with vomiting, unspecified Code(s): R11.2 - Nausea with vomiting, unspecified Status: Acute Assessment and Plan: Present on admission but now resolved. Initially thought related to DKA but then felt related to antibiotics. Appreciate help from GI. Gastroparesis consider but doing well off the Reglan. EGD showing Grade III reflux esophagitis. RUQ ultrasound negative. Continues to tolerate diet. Will continue Protonix. Plan for outpatient follow-up EGD. (4) Reflux esophagitis: Code(s): K21.0 - Gastro-esophageal reflux disease with esophagitis Status: Acute Assessment and Plan: As seen on EGD. Continue oral Protonix. (5) Hypokalemia: Code(s): E87.6 - Hypokalemia Status: Acute Assessment and Plan: Resolved. Potassium 4.1 today. Follow as outpatient. (6) Normocytic anemia: Code(s): D64.9 - Anemia, unspecified Status: Chronic Assessment and Plan: Hemoglobin 10.9 on admission but from there has been slowly trending downward. Hemoglobin stable and unchanged on 07/30/2019 at 7.8. Most likely related to renal failure with no sign of acute blood loss. Continue Epogen per her regular account engineer. Iron studies completed. (7) Chronic osteomyelitis: Code(s): M86.60 - Other chronic osteomyelitis, unspecified site Status: Chronic Assessment and Plan: Was on IV Zosyn on admission but stopped per Dr Vivas. Does have PICC line in place which will be discontinued prior to discharge. Appreciate ID input. (8) Diabetic foot ulcer: Qualifiers: Diabetes mellitus type: type 1 Diabetic foot ulcer location: midfoot Laterality: left Non-pressure ulcer stage: limited to breakdown of skin Qualified Code(s): E10.621 - Type 1 diabetes mellitus with foot ulcer; L97.421 - Non-pressure chronic ulcer of left heel and midfoot limited to breakdown of skin Code(s): E11.621 - Type 2 diabetes mellitus with foot ulcer; L97.509 - Non-pressure chronic ulcer of other part of
[2019-07-31] MEDS: EPOETIN ALFA 20,000 UNITS/ML VIAL 20000 UNITS IV PUSH (11:50)
--- NOTE | 2019-07-31 12:23 | PCPTNOTE ---
attempted to see pt this date for PT, pt was in dialysis. will cont to follow pt.
[2019-07-31] MEDS: HEPARIN SODIUM 1,000 UNITS/ML VIAL 1000 UNITS IV PUSH (12:50)
[2019-07-31 13:36] LABS: Glucose Point of Care 130 (65-105)
[2019-07-31] MEDS: INSULIN ASPART (*BKC) 100 UNITS/ML 7 UNITS SUB-Q (14:22)
[2019-07-31] MEDS: BUMETANIDE INJ 2.5 MG/10 ML VIAL 2 MG IVPB (14:23)
[2019-07-31] MEDS: metOLazone 5 MG TABLET PO (14:23)
[2019-07-31] MEDS: PANTOPRAZOLE 40 MG TABLET PO (14:24)
--- NOTE | 2019-07-31 19:20 | PM.DS ---
DS: Diagnosis Admitting Diagnosis Admitting Diagnosis: Acute kidney failure, unspecified Discharge Diagnosis (1) Acute kidney injury superimposed on chronic kidney disease: Code(s): N17.9 - Acute kidney failure, unspecified; N18.9 - Chronic kidney disease, unspecified Status: Acute (2) Diabetes mellitus: Qualifiers: Diabetes mellitus type: type 1 Diabetes mellitus complication status: with hyperglycemia Qualified Code(s): E10.65 - Type 1 diabetes mellitus with hyperglycemia Code(s): E11.9 - Type 2 diabetes mellitus without complications Status: Chronic (3) Nausea and vomiting: Qualifiers: Vomiting Intractability: intractable Vomiting type: unspecified Qualified Code(s): R11.2 - Nausea with vomiting, unspecified Code(s): R11.2 - Nausea with vomiting, unspecified Status: Acute (4) Reflux esophagitis: Code(s): K21.0 - Gastro-esophageal reflux disease with esophagitis Status: Acute (5) Hypokalemia: Code(s): E87.6 - Hypokalemia Status: Acute (6) Normocytic anemia: Code(s): D64.9 - Anemia, unspecified Status: Chronic (7) Chronic osteomyelitis: Code(s): M86.60 - Other chronic osteomyelitis, unspecified site Status: Chronic (8) Diabetic foot ulcer: Qualifiers: Diabetic foot ulcer location: midfoot Diabetes mellitus type: type 1 Laterality: left Non-pressure ulcer stage: limited to breakdown of skin Qualified Code(s): E10.621 - Type 1 diabetes mellitus with foot ulcer; L97.421 - Non-pressure chronic ulcer of left heel and midfoot limited to breakdown of skin Code(s): E11.621 - Type 2 diabetes mellitus with foot ulcer; L97.509 - Non-pressure chronic ulcer of other part of unspecified foot with unspecified severity Status: Chronic (9) HTN (hypertension): Qualifiers: Hypertension type: essential hypertension Qualified Code(s): I10 - Essential (primary) hypertension Code(s): I10 - Essential (primary) hypertension Status: Chronic (10) Leukocytosis: Qualifiers: Leukocytosis type: unspecified Qualified Code(s): D72.829 - Elevated white blood cell count, unspecified Code(s): D72.829 - Elevated white blood cell count, unspecified Status: Acute (11) Acute dehydration: Code(s): E86.0 - Dehydration Status: Acute DS: Summary Hospital Course Reason for hospitalization: Nausea and vomiting. Hospital Course: Date of Service of Discharge: July 31, 2019. History of Present Illness: Patient is a 43-year-old with known insulin-dependent diabetes recently hospitalized at [facility] for osteomyelitis of the left foot felt to be chronic. Patient was discharged a few days prior to presentation to our emergency room with continuing IV Zosyn per Infectious Disease. Patient previously admitted here for nausea and vomiting in May 2019. At that time nausea vomiting felt to be result of DKA. On presentation now, patient reports having nausea and vomiting for at least 2 weeks. She has never seen GI specialist. Complains of lower abdominal cramping. No rectal bleeding or hematemesis. No chest pain. No shortness of breath. On evaluation in the emergency room, she had slightly elevated anion gap with elevated blood sugar. Decision was made to rehydrate patient and recheck. With this, anion gap improved. Decision was made to admit patient to IM you instead of ICU as a result. Patient also noted to have elevated creatinine level. She does regularly see Dr. Forbes for Nephrology. With her symptoms, she was admitted for further evaluation and treatment. Course in Hospital: As noted, patient was initially admitted to the intermediate care unit. With ongoing issues of nausea and vomiting, gastroenterology was consulted. RUQ ultrasound was ordered with no acute findings. She was placed on IV Pepcid, Zofran and Reglan initially. Subsequent
[2019-08-02 21:50] LABS: ANCA Screen Negative (Negative)
[2019-08-04 07:46] LABS: Anti Glomerular Basement Memb <1.0 AI (<1.0)
== END 2019-07-31 15:45 | disposition home or self-care (01) | DRG 674 ==
LOC: ANHED 13:58 → ANHIMU 18:40 → ANH2MED 07-20 06:49 → ANHIMU 08-02 10:24
PROVIDERS: Emergency Medicine Emergency Medical Services; Family Medicine; Internal Medicine; Internal Medicine Gastroenterology; Internal Medicine Nephrology; Nurse Practitioner; Surgery; Admitting Provider Hospitalist; Emergency Provider Emergency Medicine; PCP Internal Medicine; Visit Provider Hospitalist
PROC: 0DJ08ZZ Inspection of Upper Intestinal Tract, Via Natural or Artificial Opening Endoscopic (ICD-10-PCS; CPT 43235; principal; 2019-07-20 10:30)
PROC: 0JH63XZ Insertion of Tunneled Vascular Access Device into Chest Subcutaneous Tissue and Fascia, Percutaneous Approach (ICD-10-PCS; CPT 36908; principal; 2019-07-27 13:00)
DX: N17.9 Acute kidney failure, unspecified (principal); M86.171 Other acute osteomyelitis, right ankle and foot; L97.421 Non-pressure chronic ulcer of left heel and midfoot limited to breakdown of skin; K52.1 Toxic gastroenteritis and colitis; M86.672 Other chronic osteomyelitis, left ankle and foot; E86.0 Dehydration; N18.3 Chronic kidney disease, stage 3 (moderate); E10.65 Type 1 diabetes mellitus with hyperglycemia; E10.69 Type 1 diabetes mellitus with other specified complication; Z89.422 Acquired absence of other left toe(s); E78.5 Hyperlipidemia, unspecified; E10.621 Type 1 diabetes mellitus with foot ulcer; E10.22 Type 1 diabetes mellitus with diabetic chronic kidney disease; I12.9 Hypertensive chronic kidney disease with stage 1 through stage 4 chronic kidney disease, or unspecified chronic kidney disease; Z79.4 Long term (current) use of insulin; D63.1 Anemia in chronic kidney disease; E87.6 Hypokalemia; R60.1 Generalized edema; Z86.73 Personal history of transient ischemic attack (TIA), and cerebral infarction without residual deficits; E10.40 Type 1 diabetes mellitus with diabetic neuropathy, unspecified; E10.319 Type 1 diabetes mellitus with unspecified diabetic retinopathy without macular edema; F17.210 Nicotine dependence, cigarettes, uncomplicated; E10.51 Type 1 diabetes mellitus with diabetic peripheral angiopathy without gangrene; K21.0 Gastro-esophageal reflux disease with esophagitis; R11.2 Nausea with vomiting, unspecified; T36.95XA Adverse effect of unspecified systemic antibiotic, initial encounter; E66.9 Obesity, unspecified; Z68.28 Body mass index [BMI] 28.0-28.9, adult
CPT/HCPCS: 36415; 36600; 50200; 71045; 71046; 73630; 74176; 76705; 76775; 76942; 77001; 78707; 80048; 80053; 80069; 80074; 81001; 82010; 82375; 82550; 82570; 82607; 82728; 82746; 82805; 83036; 83050; 83520; 83540; 83550; 83605; 83690; 83735; 83880; 83883; 84100; 84132; 84156; 84300; 85025; 85027; 85610; 85652; 85999; 86021; 86038; 86160; 86162; 86335; 86706; 87040; 87045; 87046; 87070; 87086; 87205; 87324; 87427; 88300; 88305; 88329; 89055; 93005; 93306; 96361; 96365; 96375; 97110; 97116; 97161; 99285; A9270; A9562; C1750; G0257; J0360; J0690; J1644; J1815; J1940; J2405; J2543; J2704; J2765; J3010; J3480; J7030; J7040; J7120; Q4081

== ENCOUNTER 2019-10-02 12:40 | Inpatient (IN) | payer BC, MEDICAID, SELFPAY ==
[2019-10-02] VITALS (9 sets, daily range): BP systolic 111–204; BP diastolic 67–99; PULSE 86–109; RESP 16–18; TEMP 36.3–37; O2SAT 97–100; BMI 23.3
--- NOTE | ~2019-10-02 | XR_ITS ---
XR chest 2V DATE: 10/02/2019 13:37 INDICATION: Shortness of breath, fever. Dizziness. TECHNIQUE: PA and lateral views COMPARISON: 07/27/2019 portable AP chest FINDINGS: Right internal jugular dual-lumen catheter with catheter tip overlying the upper right atri um. No pneumothorax. Normal heart size. No hilar or mediastinal enlargement. No pulmonary infiltrate or consolidation, ple ural effusion or pulmonary vascular congestion or pneumothorax. IMPRESSION: No active cardiopulmonary disease Right internal jugular dual-lumen catheter at upper right atrium Reviewed, dictated and finalized at location A.
--- NOTE | ~2019-10-02 | CT_ITS ---
EXAMINATION: CT abdomen pelvis wo con EXAM DATE: 10/02/2019 14:12 INDICATION: Nausea and vomiting. 2 days. History kidney disease. TECHNIQUE: Spiral CT of the abdomen and pelvis was performed without contrast. Axial, coronal and sag ittal images were reviewed. The dose-length product (DLP) for this examination was 288.68 mGy-cm. T he exposure was tailored according to patient size (auto mA exposure control), and iterative reconstr uction (ASIR) was used as additional dose reduction technique. There is no prior study for compariso n. FINDINGS: Calcifications in the pelvis are believed to be phleboliths. There is no nephrolithiasis o r hydronephrosis. The uterus is anteverted and morphologically normal. The bladder is unremarkabl e. The liver, spleen, adrenal glands and pancreas are unremarkable. Gallbladder is unremarkable. N o biliary obstruction. There is no retroperitoneal or pelvic lymphadenopathy. There is mild scatte red arteriosclerotic disease. Mild generalized body wall fat stranding. The appendix is normal. The stomach and small bowel are unremarkable. There is expected amount of c olonic stool. No free intraperitoneal gas. The heart is normal in size. There are no pericardial or pleural effusions. The lung bases are unremarkable. There are no osteoblastic or osteolytic les ions identified. IMPRESSION: 1. No nephrolithiasis, hydronephrosis or acute intra-abdominal findings. Reviewed, dictated and finalized at location A.
[2019-10-02 13:12] LABS: Basophils Absolute Auto 0.1 K/mm3 (0.0-0.1); Basophils Percent Auto 0.5 % (0.2-1.2); Eosinophils Absolute Auto 0.1 K/mm3 (0-0.3); Eosinophils Percent Auto 0.7 % (0-4.4); Hematocrit 47.3 % (37.0-47.0); Immature Granulocyte Absolute 0.03 K/mm3 (0.00-0.031); Immature Granulocyte Percent A 0.2 % (0-0.5); Lymphocytes Percent Auto 16.7 % (18.3-44.2); Mean Corpuscular HGB Conc 31.7 g/dl (32-36); Mean Corpuscular Hemoglobin 28.6 pg (26-34); Mean Corpuscular Volume 90.1 fl (80-100); Mean Platelet Volume 10.6 fl (7.4-10.4); Monocytes Absolute Auto 0.4 K/mm3 (0.1-0.6); Monocytes Percent Auto 3.5 % (2.6-8.5); Neutrophils Absolute Auto 9.8 K/mm3 (1.3-6.7); Neutrophils Percent Auto 78.4 % (45.5-73.1); Platelet Count Result 263 k/mm3 (150-375); Red Blood Count 5.25 M/mm3 (4.2-5.4); Red Cell Distribution Width 14.4 % (11.5-14.5); White Blood Count 12.6 K/mm3 (4.5-10.0)
--- NOTE | 2019-10-02 13:14 | ED.NAVMDI ---
HPI - Nausea/Vomiting/Diarrhea General Chief complaint: Nausea/Vomiting/Diarrhea Stated complaint: N/V X2D Time Seen by Provider: 10/02/19 12:54 Source: patient Mode of arrival: ambulatory Limitations: no limitations History of Present Illness HPI Narrative: The pt is a 44 y/o female who presents to the ED c/o N/V onset 2 days ago. Pt states that she has vomited a few times per day. She notes that she has not been able to keep much down at all. She also notes that she has experienced dizziness when standing up, and describes this sensation as a room-spinning sensation. Pt notes that she had similar episodes of this before she went on dialysis due to CKD. Pt states that she is off of dialysis now due to her condition improving. Pt reports decreased urination and rhinrorrhea, but denies ABD pain, diarrhea, and fever. Pt notes that her telegraphic typewriter mechanic is Dr. Forbes. Pt notes that she has a PMHx of DM. Pt states that she does smoke cigarettes, but does not drink alcohol or use any other drugs. Pt notes she has a PSHx of rotator cuff repair, meniscus repair, myringotomy tubes, and a tubal ligation. MD elicited complaint: nausea and vomiting Onset (ago): day(s) (2) Associated nausea: Yes Associated abdominal pain: No Associated symptoms: decreased urine output and other (Rhinorrhea, Dizziness when she stands up that feels like room-spinning) Related Data Home Medications Medication Instructions Recorded Confirmed atorvastatin 80 mg PO HS 06/05/19 07/18/19 insulin lispro 1 sliding scale dose SUBCUT 06/05/19 07/18/19 USEASDIRECTD pantoprazole [Protonix] 40 mg PO QAM 06/05/19 07/18/19 Allergies Allergy/AdvReac Type Severity Reaction Status Date / Time No Known Drug Allergies Allergy Unknown Verified 10/02/19 12:55 Review of Systems Review of Systems: All systems reviewed & are unremarkable except as noted in HPI and below Constitutional: Constitutional: Denies fever(s) ENT: Reports other (Rhinorrhea) Gastrointestinal: Gastrointestinal: Denies abdominal pain, Denies diarrhea, Reports nausea and Reports vomiting (A few times per day) Genitourinary: Genitourinary: Reports other (Decreased urination) Neurologic: Reports dizziness (When she stands up, feels like room-spinning) PMFSH Past Medical History Medical History (Updated 10/02/19 @ 18:08 by Lolita Michele PA-C) Amputation of toe Anasarca Chronic kidney disease, stage 3 Chronic osteomyelitis Chronic renal failure, stage 3 (moderate) CKD stage 3 due to type 1 diabetes mellitus Diabetes mellitus HTN (hypertension) Hyperlipidemia Hypokalemia Kidney failure Pyuria Social History Social History Social History: The patient stated that she has 2 children and she lives with her who she appoints to be her power of admitted attorneys. She desires to be a full code. She is not currently working she has applied for disability which she was turned down and she is in the process of dispute the denial. Patient stated that she quit smoking last month. Years smoked: 27 Smoking status: Current every day smoker Tobacco type: cigarettes Additional smoking assessment comments: 2 packs per week Alcohol intake: never Substance use: never Substance use type: does not use Gender identity (if verbalized by the patient): Female Spiritual care concerns: No Agree to blood products: Yes Comments PCP: Dr. Ochoa Cloth Winding Supervisor: Dr. Forbes Exam Narrative: Exam Narrative: GENERAL: Well-appearing, well-nourished, and in no acute distress. HEAD: Normocephalic, atraumatic. EYES: PERRLA and EOMI. ENT: Nares clear, no rhinorrhea or epistaxis. Mucous membranes moist. Oropharynx without tonsillar hypertrophy exudate or other lesions. Bilateral TMs pearly jordan non-bulging NECK: Supple. No adenopathy or masses. CHEST: Clear to auscultation. No respiratory distress. No wheezes rales or rhonchi HEART: Regular rate and rhythm. No
--- NOTE | 2019-10-02 13:21 | ECG_ITS ---
Measurements Intervals Edwards Rate: 90 P: 59 [place]: 166 QRS: -9 QRSD: 109 T: 64 QT: 383 QTc: 469 Interpretive Statements SINUS RHYTHM POSSIBLE LEFT ATRIAL ENLARGEMENT INCOMPLETE RIGHT BUNDLE BRANCH BLOCK CONSIDER ANTERIOR INFARCT, AGE INDETERMINATE BASELINE WANDER- V3 ABNORMAL ECG Electronically Signed On 10-02-2019 14:47:32 CDT by Misael Ahmadi D.O.
[2019-10-02 13:23] LABS: Add Urine Microscopic? YES; Appearance Urine Clear (Clear); Bacteria Urine Trace /hpf; Bilirubin Urine Negative (Negative); Blood Urine Negative (Negative); Color Urine Yellow (Yellow); Glucose Urine UA 3+ mg/dL (Negative); Ketones Urine 1+ mg/dL (Negative); Leukocyte Esterase Ur Negative LEU/UL (Negative); Mucus Urine Rare /lpf; Nitrate Urine Negative (Negative); Protein Urine 3+ mg/dL (Negative); Specific Grav Ur 1.022 (1.001-1.035); Squamous Epithelial Cell Urine Many /hpf (Few); Urobilinogen Urine Negative mg/dL (<2.0); WBC Urine 0-3 /hpf
[2019-10-02 13:40] LABS: Alanine Aminotransferase 17 U/L (4-35); Albumin Level 3.7 g/dL (3.5-5.1); Alkaline Phosphatase 118 U/L (38-126); Aspartate Amino Transferase 33 U/L (14-36); Bilirubin,Total 0.5 mg/dL (0.2-1.3); Blood Urea Nitrogen 45 mg/dL (7-17); Calcium 8.8 mg/dL (8.4-10.2); Carbon Dioxide 30 mmol/L (22-30); Chloride 95 mmol/L (98-107); Estimated CRCL calculation 19 ml/min; Estimated Glomerular Filt Rate 17; Glucose 305 mg/dL (65-105); Lipase 72 U/L (23-300); Potassium 3.5 mmol/L (3.4-5.0); Sodium 135 mmol/L (137-145)
[2019-10-02] MEDS: SODIUM CHLORIDE 0.9% IV 1,000 ML 999 ML IV CONT ×3 (13:48→17:49)
[2019-10-02] MEDS: ONDANSETRON INJ 4 MG/2 ML VIAL IV PUSH (13:48)
[2019-10-02] MEDS: METOCLOPRAMIDE HCL INJ 10 MG/2 ML VIAL IV PUSH (16:34)
[2019-10-02 18:19] LABS: Alveolar/Arterial O2 Gradient 23.1 mmHg; Base Excess ABG -2.1 mEq/l (+/-2.0); Carboxyhemoglobin 1.2 % THb (0-2.0); Device ROOM AIR; Fractional Inspired Oxygen 21 %; Methemoglobin ABG 0.3 %THb (0-1.5); Oxygen Content ABG 17.7 %vol (16.0-22.0); Oxygen Saturation ABG 95.3 % (95.0-100.0); PCO2 ABG 40.4 mmHg (35.0-45.0); PO2 ABG 78.3 mmHg (80.0-100.0); PO2 FiO2 Ratio Arterial Blood 3.73 %; Reduced Hemoglobin 5.5 %THb (0-5.0); Site Drawn RIGHT BRACHIAL; Total Hemoglobin 13.5 g/dL (12.0-18.0); pH ABG 7.373 (7.350-7.450)
[2019-10-02 18:25] LABS: Magnesium 2.1 mg/dL (1.6-2.3); Phosphorus 4.3 mg/dL (2.5-4.5)
[2019-10-02 18:29] LABS: Beta-Hydroxybutyrate/Acetoacetate 3.75 mmol/L (0.02-0.27)
--- NOTE | 2019-10-02 18:55 | ADMGEN ---
This patient, Pamela Bhat, was admitted to Medical Room 347-01. Patient/family oriented to hospital policies and general routines including ID bracelet, bed and alarms, visiting hours, pain management, procedures, bathroom and other care routines, personal items, smoking policy, room service/diet, and visiting hours. Valuables list has been completed. Information on how to activate the Rapid Response Team has been discussed. Patient/Family are encouraged to report perceived risks to care and to ask questions if they do not understand what they are told or what they should do.
[2019-10-02 18:59] LABS: Glucose Point of Care 251 (65-105)
[2019-10-02] MEDS: SODIUM CHLORIDE 0.9% IV 1,000 ML 125 ML IV CONT (19:14)
--- NOTE | 2019-10-02 23:48 | PM.IMHP ---
H&P: HPI History of Present Illness Chief complaint: Dehydration/Acute on chronic kidney failure Narrative: Pamela Bhat is a 44 year old female who has chronic renal failure stage 3 to 4. The patient had been on short-term hemodialysis from June until about 3 weeks ago. The patient developed nausea and vomiting for the last 2 days. She has vomited several times. She just cannot keep anything down. She is having some dizziness when standing up. She feels like the room is spinning. Patient's anion gap was found to be 10. She was orthostatic on arrival. She did improve with 2 L of IV fluids. But time I saw her she was feeling much better. Patient's UA does show ketones and glucose. But she is not in DKA. Patient's BUN was 45 and creatinine is 3.0. Blood sugar 305. Chest x-ray was read as right internal jugular dual lumen catheter at right upper atrium. Abdominal pelvis CT known nephrolithiasis, hydronephrosis or acute intra-abdominal findings. The patient was started on IV fluids. She was given Benadryl IV, Reglan IV Zofran IV and IV Tylenol. Patient is no longer nauseated. Date of service 10/02/2019. Review of Systems Review of Systems: All systems reviewed & are unremarkable except as noted in HPI and below Constitutional: Constitutional: Reports as per HPI and Reports no additional constitutional complaints Eyes: Eyes: Reports as per HPI and Reports no additional eye complaints ENT: Reports system reviewed and no additional complaints, except as documented and Reports Normal hearing present Cardiovascular: Cardiovascular: Reports no additional cardiovascular complaints Respiratory: Respiratory: Reports no additional respiratory complaints and Reports no additional respiratory complaints Gastrointestinal: Gastrointestinal: Reports as per HPI and Reports no additional gastrointestinal complaints Musculoskeletal: Musculoskeletal: Reports no additional musculoskeletal complaints Integumentary/Breasts: Skin/Breast: Reports system reviewed and no additional complaints, except as docu and Reports as per HPI Neurologic: Reports system reviewed and no additional complaints, except as documented, Reports as per HPI and Reports Normal hearing present Psychiatric: Psychiatric: Reports no additional psychiatric complaints and Reports as per HPI Endocrine: Endocrine: Reports no additional endocrine complaints Hematologic/Lymphatic: Hematologic/Lymphatic: Reports no additional hematologic/lymphatic complaints Allergic/Immunologic: Allergic/Immunologic: Reports no additional allergic/immunologic complaints PMFSH Past Medical History Medical History Amputation of toe Anasarca Chronic kidney disease, stage 3 Chronic osteomyelitis Chronic renal failure, stage 3 (moderate) CKD stage 3 due to type 1 diabetes mellitus Diabetes mellitus HTN (hypertension) Hyperlipidemia Hypokalemia Kidney failure Pyuria Surgical History Surgical History (Updated 10/02/19 @ 23:54 by Ondina Mccullough NP) H/O tubal ligation History of amputation 2 toes on the left History of section, classical X2 History of tonsillectomy and adenoidectomy Hx of myringotomy S/P dialysis catheter insertion Right internal jugular S/P lateral meniscal repair S/P PICC central line placement Now removed S/P rotator cuff repair Family History Family History Unknown Adopted Social History Social History (Updated 10/02/19 @ 23:55 by Ondina Mccullough NP) Social History: The patient stated that she has 2 children and she lives with her who she appoints to be her power of admitted attorneys. She desires to be a full code. She is not currently working she is now on disability. Patient stated that she is down to 4 5 cigarettes a day. Smoking packs per day: 0.5 Smoking cigarettes per day: 10.0 Years smoked: 10 Smoking pac
[2019-10-03] VITALS (8 sets, daily range): BP systolic 106–210; BP diastolic 61–90; PULSE 78–89; RESP 16–18; TEMP 36.7–37.2; O2SAT 95–100
[2019-10-03] MEDS: SODIUM CHLORIDE 0.9% IV 1,000 ML 125 ML IV CONT ×2 (03:22→11:35)
[2019-10-03 05:39] LABS: Basophils Absolute Auto 0.1 K/mm3 (0.0-0.1); Basophils Percent Auto 0.6 % (0.2-1.2); Eosinophils Absolute Auto 0.2 K/mm3 (0-0.3); Eosinophils Percent Auto 1.6 % (0-4.4); Hematocrit 36.4 % (37.0-47.0); Hemoglobin 11.5 g/dL (12.0-15.0); Immature Granulocyte Absolute 0.05 K/mm3 (0.00-0.031); Immature Granulocyte Percent A 0.5 % (0-0.5); Lymphocytes Absolute Auto 3.21 K/mm3 (0.9-3.2); Mean Corpuscular HGB Conc 31.6 g/dl (32-36); Mean Corpuscular Hemoglobin 28.6 pg (26-34); Mean Corpuscular Volume 90.5 fl (80-100); Mean Platelet Volume 10.4 fl (7.4-10.4); Monocytes Absolute Auto 0.6 K/mm3 (0.1-0.6); Monocytes Percent Auto 6.2 % (2.6-8.5); Neutrophils Absolute Auto 5.7 K/mm3 (1.3-6.7); Neutrophils Percent Auto 58.1 % (45.5-73.1); Platelet Count Result 171 k/mm3 (150-375); Red Blood Count 4.02 M/mm3 (4.2-5.4); Red Cell Distribution Width 14.3 % (11.5-14.5); White Blood Count 9.7 K/mm3 (4.5-10.0)
[2019-10-03 06:08] LABS: Alanine Aminotransferase 12 U/L (4-35); Albumin Level 2.7 g/dL (3.5-5.1); Alkaline Phosphatase 86 U/L (38-126); Aspartate Amino Transferase 23 U/L (14-36); Bilirubin,Total 0.3 mg/dL (0.2-1.3); Blood Urea Nitrogen 36 mg/dL (7-17); Calcium 7.9 mg/dL (8.4-10.2); Carbon Dioxide 29 mmol/L (22-30); Chloride 100 mmol/L (98-107); Estimated CRCL calculation 21 ml/min; Estimated Glomerular Filt Rate 18; Glucose 249 mg/dL (65-105); Potassium 3.2 mmol/L (3.4-5.0); Sodium 135 mmol/L (137-145)
[2019-10-03 07:47] LABS: Glucose Point of Care 238 (65-105)
[2019-10-03] MEDS: INSULIN ASPART (*BKC) 100 UNITS/ML SUB-Q ×3 (07:48→16:27)
[2019-10-03] MEDS: POTASSIUM CHLORIDE 20 MEQ TABLET 40 MEQ PO (09:30)
[2019-10-03] MEDS: PANTOPRAZOLE 40 MG TABLET PO (09:31)
--- NOTE | 2019-10-03 11:17 | PM.CNNEP ---
Assessment and Plan Assessment and plan (1) Acute on chronic kidney failure: Qualifiers: Acute renal failure type: unspecified Chronic kidney disease stage: stage 4 (severe) Qualified Code(s): N17.9 - Acute kidney failure, unspecified; N18.4 - Chronic kidney disease, stage 4 (severe) Code(s): N17.9 - Acute kidney failure, unspecified; N18.9 - Chronic kidney disease, unspecified Status: Acute Assessment and Plan: The patient has chronic kidney disease around 1.5. She was admitted on the 18 of July with a creatinine of 4.4. She was also edematous. She was managed and tested but ended up on dialysis. Is felt the some of this might have been due to her chronic infection. She dialyzes now patient is still about 3 weeks ago and then her kidney function seemed to improve so she was taken off dialysis. She does not know any of the creatinine levels since stopping dialysis. Here her creatinine is 3.0. This may be higher than her recent creatinines or this could be relatively stable. Since the creatinine is this could I do not think she has uremia because she barely had any nausea and she had no vomiting when her creatinine was as high as 4.5. Currently she is better having gotten some IV fluids. I will repeat a creatinine tomorrow. I will try to find out how her creatinine has been running as an outpatient since being off the treatments. Dr. Forbes is her shellfish weigher. He will be back tomorrow. (2) Dehydration: Code(s): E86.0 - Dehydration Status: Acute Assessment and Plan: She is dehydrated because of her nausea and vomiting. She is getting some IV fluids (3) HTN (hypertension): Qualifiers: Hypertension type: essential hypertension Qualified Code(s): I10 - Essential (primary) hypertension Code(s): I10 - Essential (primary) hypertension Status: Chronic Assessment and Plan: Her blood pressure is high. She was on diltiazem before admission. She is currently On this. We can give her some p.r.n. clonidine. (4) Diabetes mellitus: Qualifiers: Diabetes mellitus type: type 1 Diabetes mellitus complication status: with hyperglycemia Qualified Code(s): E10.65 - Type 1 diabetes mellitus with hyperglycemia Code(s): E11.9 - Type 2 diabetes mellitus without complications Status: Chronic Assessment and Plan: On Accu-Cheks and sliding-scale insulin (5) Chronic osteomyelitis: Code(s): M86.60 - Other chronic osteomyelitis, unspecified site Status: Chronic History of Present Illness Reason for Consult Consult date: 10/03/19 Chief Complaint Chief complaint: Dehydration/Acute on chronic kidney failure History of Present Illness Narrative: Yajaira is a very pleasant 44-year-old lady who has multiple medical problems including chronic renal insufficiency with a baseline creatinine around 2, acute kidney injury last admission culminating in dialysis. She was able to come off dialysis about 3 weeks ago. She still has her dialysis catheter in. Has diabetes, hypertension, hyperlipidemia, chronic osteomyelitis, who was well until couple of days ago when she started having nausea and vomiting. He was unable to keep anything down. She has been dizzy on standing She did not have diarrhea or belly pain. She has not had any fevers cough or chest pain. She was seen in the emergency room. Her creatinine was 3 which is better than it was when she left the hospital and better than it was when she started dialysis last time. A CT of the abdomen which was unremarkable. She was admitted to the hospital and given fluids overnight. She feels a little bit better today. Review of Systems Constitutional: Constitutional: Reports no additional constitutional complaints Eyes: Eyes: Reports no additional eye complaints ENT: Reports system reviewed and no additional complaints, except as documented Cardiovascular: Cardiovas
--- NOTE | 2019-10-03 11:43 | PM.IMPN ---
Progress Note: A&P Assessment and Plan (1) Acute dehydration: Code(s): E86.0 - Dehydration Status: Acute Assessment and Plan: Patient had nausea and vomiting for approximately 2 days. Unsure of etiology. CT scan did not offer up any diagnosis. She was started on IV fluids in the emergency department and we have continued at a rate of 100 mils per hour. She is still reporting some lightheadedness and dizziness when standing up, will repeat orthostatic blood pressures Nephrology evaluated the patient and is unsure of her creatinine after dialysis was discontinued about [address] Estrada recommended to the patient that she stay overnight again to see her human intelligence Dr. Forbes in the morning he would have a better understanding of what her baseline creatinine is. Will continue monitoring patient's symptoms and fluid status. Continue to hydrate gently at this time. (2) Nausea and vomiting: Qualifiers: Vomiting Intractability: intractable Vomiting type: unspecified Qualified Code(s): R11.2 - Nausea with vomiting, unspecified Code(s): R11.2 - Nausea with vomiting, unspecified Status: Acute Assessment and Plan: Patient denies any more nausea or vomiting this morning. She boot she was able to eat a diabetic diet without any issues. (3) Acute on chronic kidney failure: Qualifiers: Acute renal failure type: unspecified Chronic kidney disease stage: stage 4 (severe) Qualified Code(s): N17.9 - Acute kidney failure, unspecified; N18.4 - Chronic kidney disease, stage 4 (severe) Code(s): N17.9 - Acute kidney failure, unspecified; N18.9 - Chronic kidney disease, unspecified Status: Acute Assessment and Plan: The patient follows up with Dr. Forbes and she was on dialysis up until 3 weeks ago when her creatinine improved and she no longer needed it. We do not have any records of what her creatinine was 3 weeks ago to compare to what it is currently. Dr. Estrada the human intelligence evaluated the patient and he does not have these records and recommended waiting until the patient can see Dr. Forbes in the morning and he can further evaluate and let us know what her new baseline creatinine is at that time. Creatinine this morning was 2.8 Will repeat renal function in the morning with continued light IV hydration. (4) Diabetes mellitus: Qualifiers: Diabetes mellitus type: type 1 Diabetes mellitus complication status: with hyperglycemia Qualified Code(s): E10.65 - Type 1 diabetes mellitus with hyperglycemia Code(s): E11.9 - Type 2 diabetes mellitus without complications Status: Chronic Assessment and Plan: Will continue her long-acting insulin and her sliding scale insulin Continue with long-acting insulin and check Accu-Cheks AC and HS. (5) HTN (hypertension): Qualifiers: Hypertension type: essential hypertension Qualified Code(s): I10 - Essential (primary) hypertension Code(s): I10 - Essential (primary) hypertension Status: Chronic Assessment and Plan: Continue with diltiazem. BP this morning is 170 systolic I will order IV hydralazine as needed for systolic blood pressures greater than 170 or diastolic blood pressure greater than 100 (6) Hyperlipidemia: Code(s): E78.5 - Hyperlipidemia, unspecified Status: Chronic Assessment and Plan: Continue with Lipitor. Time Spent With Patient Time with patient: 25 - 35 minutes Subjective Date/time seen: 10/03/19 11:43 Interval history: Date of service 10/03/2019: The patient is feeling better today without any more nausea or vomiting. She is still feeling
[2019-10-03 11:47] LABS: Glucose Point of Care 301 (65-105)
[2019-10-03] MEDS: ONDANSETRON INJ 4 MG/2 ML VIAL IV PUSH (14:54)
--- NOTE | 2019-10-03 16:10 | PC.NURSE ---
Patient c/o continued nausea and now states she has a pounding head and feels sweaty . Blood sugar is 237. VS taken and B/P 210/90. Called Delmy BHANDARI and discussed with her - orders exist for Hydralazine prn HTN but patient also has issues with orthostatic hypotension. Per Delmy, patient is to receive IV Hydralazine. 1640 - IV Hydralazine administered and knee high TEDs applied. Will recheck B/P in 30-45 minutes.
[2019-10-03 16:23] LABS: Glucose Point of Care 237 (65-105)
[2019-10-03] MEDS: hydrALAZINE HCL 20 MG/ML VIAL 10 MG IV PUSH (16:36)
[2019-10-03] MEDS: ATORVASTATIN 40 MG TABLET 80 MG PO (21:36)
[2019-10-03] MEDS: INSULIN GLARGINE (*BKC) 100 UNITS/ML 17 UNITS SUB-Q (21:37)
[2019-10-03] MEDS: SODIUM CHLORIDE 0.9% IV 1,000 ML 100 ML IV CONT (21:38)
[2019-10-03 21:49] LABS: Glucose Point of Care 281 (65-105)
[2019-10-03] MEDS: ACETAMINOPHEN 325 MG TABLET 650 MG PO (23:10)
[2019-10-04 05:26] LABS: Hematocrit 39.5 % (37.0-47.0); Hemoglobin 12.8 g/dL (12.0-15.0); Mean Corpuscular HGB Conc 32.4 g/dl (32-36); Mean Corpuscular Volume 89.4 fl (80-100); Mean Platelet Volume 10.4 fl (7.4-10.4); Platelet Count Result 185 k/mm3 (150-375); Red Blood Count 4.42 M/mm3 (4.2-5.4); White Blood Count 10.3 K/mm3 (4.5-10.0)
[2019-10-04 05:40] VITALS: BP 132/71; PULSE 74; RESP 16; TEMP 36.7; O2SAT 96
[2019-10-04 05:40] LABS: Albumin Level 2.7 g/dL (3.5-5.1); Blood Urea Nitrogen 40 mg/dL (7-17); Calcium 7.9 mg/dL (8.4-10.2); Carbon Dioxide 26 mmol/L (22-30); Chloride 101 mmol/L (98-107); Estimated CRCL calculation 22 ml/min; Estimated Glomerular Filt Rate 19; Glucose 392 mg/dL (65-105); Potassium 3.9 mmol/L (3.4-5.0); Sodium 131 mmol/L (137-145)
[2019-10-04 07:48] LABS: Glucose Point of Care 332 (65-105)
[2019-10-04] MEDS: SODIUM CHLORIDE 0.9% IV 1,000 ML 70 ML IV CONT (07:54)
[2019-10-04] MEDS: INSULIN ASPART (*BKC) 100 UNITS/ML SUB-Q ×3 (07:56→16:23)
[2019-10-04] MEDS: ACETAMINOPHEN 325 MG TABLET 650 MG PO (07:58)
[2019-10-04] MEDS: PANTOPRAZOLE 40 MG TABLET PO (08:00)
[2019-10-04 08:30] VITALS: BP 131/59
[2019-10-04 08:32] VITALS: BP 109/56; BP 125/62
[2019-10-04 12:05] LABS: Glucose Point of Care 292 (65-105)
--- NOTE | 2019-10-04 13:04 | PM.PNNEP ---
Progress Note: A&P Assessment and Plan (1) Acute on chronic kidney failure: Qualifiers: Acute renal failure type: unspecified Chronic kidney disease stage: stage 4 (severe) Qualified Code(s): N17.9 - Acute kidney failure, unspecified; N18.4 - Chronic kidney disease, stage 4 (severe) Code(s): N17.9 - Acute kidney failure, unspecified; N18.9 - Chronic kidney disease, unspecified Status: Acute Assessment and Plan: the patient has chronic kidney disease stage IV at baseline. She has been taken off of dialysis. At the last visit she had acute on chronic renal failure which took some time to recover. Patient has had biopsy findings of diabetic renal disease, also has hypertensive nephrosclerosis. Diabetes mellitus presumably type 1 with complications of nephropathy nausea and vomiting with dehydration may be causing a bit of exacerbation of renal failure. However she is close to baseline in reference to renal function hypertensive renal disease. Hyponatremia hypoalbuminemia I will arrange for the tunneled dialysis catheter to be removed. She is not in immediate need of hemodialysis. We will plan a more substantive access as the situation disturbance in reference to renal failure. We may place a peritoneal dialysis catheter. I did discuss with her the this would be in the future. Will follow Subjective Date/time seen: 10/04/19 13:04 Review of Systems Review of Systems: Narrative: Patient feels better today. No nausea or vomiting. No abdominal pain. Patient's last dialysis was approximately 4 weeks ago. She still has a tunneled dialysis catheter in place in the right chest wall. Her renal function is stable. Currently with the less oral intake she feels she is making less urine. There is no swelling. She denies any shortness of breath. Exam Narrative: Exam Narrative: Well-developed well-nourished white female: Currently stable with the breathing, skin turgor normal, was 1.0, JVD is negative, regular rhythm, no gallop, rub, equal breath sounds, soft nontender abdomen, edema negative, right chest wall tunneled dialysis catheter in place Objective Data Vital Signs Vital Signs: Vital Signs - 24 hr 10/03/19 14:00 10/03/19 16:15 10/03/19 17:29 Temperature 36.7 C 37.2 C Pulse Rate 82 89 Respiratory Rate 18 18 Blood Pressure 158/74 H 210/90 H 155/68 H Pulse Oximetry 100 95 10/03/19 20:02 10/03/19 23:14 10/04/19 05:40 Temperature 36.9 C 36.9 C 36.7 C Pulse Rate 80 78 74 Respiratory Rate 18 16 16 Blood Pressure 171/70 H 161/65 H 132/71 Pulse Oximetry 97 97 96 10/04/19 08:30 10/04/19 08:32 Temperature Pulse Rate Respiratory Rate Blood Pressure 131/59 L 109/56 L Pulse Oximetry Intake/Output Intake/Output: Intake & Output 10/01/19 10/02/19 10/03/19 10/04/19 23:59 23:59 23:59 23:59 Intake Total 2100 4900 1910 Output Total 1000 650 Balance 2100 3900 1260 Meds/Results Medications: Active Medications Generic Name Dose Route Start Last Admin Trade Name Freq PRN Reason Stop Dose Admin Acetaminophen 650 mg 10/02/19 23:41 10/04/19 07:58 Tylenol Tablet PO 650 mg Q4H PRN Administration Mild Pain (1-3) Or Fever Atorvastatin Calcium 80 mg 10/03/19 21:00 10/03/19 21:36 Lipitor PO 80 mg HS JOHNSON Administration Dextrose 12.5 gm 10/02/19 23:44 Dextrose 50% Syringe IV PUSH PRN PRN Hypoglycemia Protocol Diltiazem HCl 180 mg 10/03/19 09:00 10/04/19 09:01 Diltiazem Hcl 12 Hr Cap PO 180 mg Q12HR JOHNSON Administration Glucagon 1 mg 10/02/19 23:44 Glucagon For Inj IM PRN PRN Hypoglycemia Protocol Glucose 15 gm 10/02/19 23:44 Glutose 15 PO PRN PRN Hypoglycemia Protocol Hydralazine HCl 10 mg 10/03/19 11:00 10/03/19 16:36 Apresoline Hcl Inj IV PUSH 10 mg Q8H PRN Administration Blood Pressure - High Sodium Chloride 1,000 mls @ 7
[2019-10-04 13:47] VITALS: BP 142/61; PULSE 83; RESP 16; TEMP 36.9; O2SAT 97
--- NOTE | 2019-10-04 14:01 | PM.IMPN ---
Progress Note: A&P Assessment and Plan (1) Acute dehydration: Code(s): E86.0 - Dehydration Status: Acute Assessment and Plan: Patient had nausea and vomiting for approximately 2 days[address] Unsure of etiology. CT scan did not offer up any diagnosis. She was started on IV fluids in the emergency department and we have continued at a rate of 100 mils per hour. She is no longer having any lightheadedness and dizziness when standing up after placing Yuri Hose. Her Orthostatics today showed, Supine 131/59, Sitting 125/62, Standing 109/56. She is still orthostatic. Dr. Forbes states her creatinine is almost at baseline. Will continue light IV fluid hydration Will continue monitoring patient's symptoms and fluid status. Continue to hydrate gently at this time. (2) Nausea and vomiting: Qualifiers: Vomiting Intractability: intractable Vomiting type: unspecified Qualified Code(s): R11.2 - Nausea with vomiting, unspecified Code(s): R11.2 - Nausea with vomiting, unspecified Status: Acute Assessment and Plan: Patient denies any more nausea or vomiting this morning. She boot she was able to eat a diabetic diet without any issues. (3) Acute on chronic kidney failure: Qualifiers: Acute renal failure type: unspecified Chronic kidney disease stage: stage 4 (severe) Qualified Code(s): N17.9 - Acute kidney failure, unspecified; N18.4 - Chronic kidney disease, stage 4 (severe) Code(s): N17.9 - Acute kidney failure, unspecified; N18.9 - Chronic kidney disease, unspecified Status: Acute Assessment and Plan: The patient follows up with Dr. Forbes and she was on dialysis up until 3 weeks ago when her creatinine improved and she no longer needed it. Patient has had biopsy findings of diabetic renal disease, also has hypertensive nephrosclerosis. Creatinine this morning was 2.70. Dr. Leidy evaluated the patient today and he states her creatinine is close to her baseline. Will repeat renal function in the morning with continued light IV hydration. (4) Diabetes mellitus: Qualifiers: Diabetes mellitus type: type 1 Diabetes mellitus complication status: with hyperglycemia Qualified Code(s): E10.65 - Type 1 diabetes mellitus with hyperglycemia Code(s): E11.9 - Type 2 diabetes mellitus without complications Status: Chronic Assessment and Plan: Will continue her long-acting insulin and her sliding scale insulin Serum glucose was 392. Will increase Lantus from 17 Units to 23 Units HS She is also on Sliding Scale Short acting insulin with meals 5-10 Units depending on glucose reading. Continue with long-acting insulin and check Accu-Cheks AC and HS. (5) HTN (hypertension): Qualifiers: Hypertension type: essential hypertension Qualified Code(s): I10 - Essential (primary) hypertension Code(s): I10 - Essential (primary) hypertension Status: Chronic Assessment and Plan: Continue with diltiazem. BP this morning is 140 systolic I will order IV hydralazine as needed for systolic blood pressures greater than 170 or diastolic blood pressure greater than 100 (6) Hyperlipidemia: Code(s): E78.5 - Hyperlipidemia, unspecified Status: Chronic Assessment and Plan: Continue with Lipitor. Subjective Date/time seen: 10/04/19 14:01 Interval history: Date of service 10/04/2019: The patient is feeling better today. She is eating well without any nausea or vomiting. She was having lightheadedness and dizziness with standing up, but after Yuri Hose were placed she has not been having those symptoms. She is feeling much better today.
--- NOTE | 2019-10-04 16:05 | PM.CNGS ---
Assessment and Plan Assessment and plan (1) Acute on chronic kidney failure: Qualifiers: Acute renal failure type: unspecified Chronic kidney disease stage: stage 4 (severe) Qualified Code(s): N17.9 - Acute kidney failure, unspecified; N18.4 - Chronic kidney disease, stage 4 (severe) Code(s): N17.9 - Acute kidney failure, unspecified; N18.9 - Chronic kidney disease, unspecified Status: Acute Assessment and Plan: Patient no longer needs dialysis, but she may eventually require dialysis again. According to patient, her credit administrator discussed planning far enough in the future for either fistula placement or peritoneal dialysis catheter placement before patient requires dialysis again. I did discuss with her that if we remove her tunneled dialysis catheter today and she were to need dialysis within the next month or so, we could be stuck having to replace a tunnel dialysis catheter as her other method of dialysis would not be set up yet. She understands this and would like to have the dialysis catheter removed. I discussed the procedure, risks, benefits, and alternatives. Will proceed with removal under local anesthetic today. History of Present Illness Consult details Consult date: 10/04/19 Narrative: This is a 44-year-old woman who was hospitalized for nausea, vomiting, and diarrhea. She had acute on chronic renal failure, but her renal function has stabilized near baseline again. About 3 months ago, she was hospitalized for worsening renal failure and ultimately had a tunnel dialysis catheter placed by my partner Dr. Wen. She was dialyzed for a couple months, but her kidney function has stabilized and she has not required dialysis for the past several weeks. Her credit administrator is now requesting tunnel dialysis catheter removal. Review of Systems Review of Systems: All systems reviewed & are unremarkable except as noted in HPI and below PMFSH Past Medical History Medical History Amputation of toe Anasarca Chronic kidney disease, stage 3 Chronic osteomyelitis Chronic renal failure, stage 3 (moderate) CKD stage 3 due to type 1 diabetes mellitus Diabetes mellitus HTN (hypertension) Hyperlipidemia Hypokalemia Kidney failure Pyuria Surgical History Surgical History H/O tubal ligation History of amputation 2 toes on the left History of section, classical X2 History of tonsillectomy and adenoidectomy Hx of myringotomy S/P dialysis catheter insertion Right internal jugular S/P lateral meniscal repair S/P PICC central line placement Now removed S/P rotator cuff repair Family History Family History Unknown Adopted Social History Social History Social History: The patient stated that she has 2 children and she lives with her who she appoints to be her power of contemporary or modern dancer. She desires to be a full code. She is not currently working she is now on disability. Patient stated that she is down to 4 5 cigarettes a day. Smoking packs per day: 0.5 Smoking cigarettes per day: 10.0 Years smoked: 10 Smoking pack-years: 5.00 Smoking status: Current every day smoker Tobacco type: cigarettes Additional smoking assessment comments: 2 packs per week Alcohol intake: never Substance use: never Substance use type: does not use Living arrangements: with family Gender identity (if verbalized by the patient): Female Spiritual care concerns: No Agree to blood products: Yes Meds Home Medications and Allergies Home Medications Medication Instructions Recorded Confirmed Type atorvastatin 80 mg PO HS 06/05/19 10/02/19 History pantoprazole [Protonix] 40 mg PO QAM 06/05/19 10/02/19 History acetaminophen [Mapap 650 mg PO Q4H PRN #60 ta
--- NOTE | 2019-10-04 16:10 | P.OP_ITS ---
Procedure Note - Detailed Date of procedure: 10/04/19 Pre-op diagnosis: Dehydration/Acute on chronic kidney failure Post-op diagnosis: same Procedure performed: Removal of right internal jugular tunnel dialysis catheter Description of procedure: * procedure as well as risks, benefits, and alternatives were discussed with the patient. Written consent was obtained and placed in chart prior to procedure. Patient was placed supine in her hospital bed. Time-out was done to confirm patient and procedure. Her right chest area around the catheter was prepped and draped in sterile fashion using Betadine prep. 1% lidocaine with epinephrine was infiltrated locally around the catheter exit site and the cuff of the catheter. The sutures holding the catheter in place were cut away. The cuff of the catheter was palpated about 1 cm above the exit site on the skin. Gentle traction was held on the catheter and careful blunt dissection was carried out using narrow tip scissors. The cuff was carefully dissected free circumferentially, and with a gentle tug the catheter and cuff came free. Pressure was then held at the neck where the insertion site to the internal jugular was, and the catheter was carefully withdrawn all the way out. The tip of the catheter appeared intact. Pressure was then applied at the neck for several minutes, and after inspection no further signs of bleeding or other abnormalities were ana ntified. 4 x 4 gauze was then applied over the exit site followed by tape. The patient was then sat up in bed. Anesthesia: local ( 1% lidocaine with epinephrine) Surgeon: Mathew Aguilera DO Estimated blood loss (mL): 1 Pathology: none sent Complications: No immediate complications Condition: stable Disposition: no change Findings: this is a 44-year-old woman who was hospitalized for acute/chronic renal failure secondary to nausea, vomiting, and diarrhea. She has recovered from this and her creatinine is currently near baseline. She is not in need of dialysis any longer, but had a dialysis catheter placed 3 months ago. It has been more than 3 weeks since her last round of hemodialysis. 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 Dialysis catheter was removed uneventfully under local anesthetic. Patient was instructed on routine care after catheter removal, but she is otherwise stable for discharge from my standpoint.
[2019-10-04] MEDS: AMLODIPINE BESYLATE 5 MG TABLET PO (16:23)
[2019-10-04] MEDS: FUROSEMIDE 80 MG TABLET PO (16:23)
[2019-10-04 16:37] LABS: Glucose Point of Care 249 (65-105)
[2019-10-04] MEDS: SODIUM CHLORIDE 0.9% IV 250 ML 50 ML IV CONT (18:13)
[2019-10-04 20:00] VITALS: PULSE 84; RESP 16; O2SAT 97
[2019-10-04 21:12] VITALS: BP 158/79; PULSE 84; RESP 16; TEMP 37.1; O2SAT 97
[2019-10-04 21:24] LABS: Glucose Point of Care 322 (65-105)
[2019-10-04] MEDS: ATORVASTATIN 40 MG TABLET 80 MG PO (21:33)
[2019-10-04] MEDS: INSULIN GLARGINE (*BKC) 100 UNITS/ML 23 UNITS SUB-Q (21:33)
[2019-10-04] MEDS: INSULIN ASPART (*BKC) 100 UNITS/ML 6 UNITS SUB-Q (22:46)
[2019-10-05] MEDS: ACETAMINOPHEN 325 MG TABLET 650 MG PO ×2 (03:32→08:28)
[2019-10-05 04:05] VITALS: BP 149/65; PULSE 77; RESP 14; TEMP 36.3; O2SAT 100
[2019-10-05 05:22] LABS: Hematocrit 39.2 % (37.0-47.0); Hemoglobin 12.8 g/dL (12.0-15.0); Mean Corpuscular HGB Conc 32.7 g/dl (32-36); Mean Corpuscular Hemoglobin 28.8 pg (26-34); Mean Corpuscular Volume 88.1 fl (80-100); Platelet Count Result 221 k/mm3 (150-375); Red Blood Count 4.45 M/mm3 (4.2-5.4); Red Cell Distribution Width 13.9 % (11.5-14.5); White Blood Count 14.2 K/mm3 (4.5-10.0)
[2019-10-05 05:35] LABS: Albumin Level 2.7 g/dL (3.5-5.1); Blood Urea Nitrogen 48 mg/dL (7-17); Calcium 7.9 mg/dL (8.4-10.2); Carbon Dioxide 25 mmol/L (22-30); Chloride 102 mmol/L (98-107); Estimated CRCL calculation 19 ml/min; Estimated Glomerular Filt Rate 17; Glucose 74 mg/dL (65-105); Phosphorus 3.8 mg/dL (2.5-4.5); Sodium 131 mmol/L (137-145)
[2019-10-05 07:44] LABS: Glucose Point of Care 70 (65-105)
[2019-10-05] MEDS: SODIUM CHLORIDE 0.9% IV 1,000 ML 50 ML IV CONT ×2 (08:25→13:06)
[2019-10-05] MEDS: FUROSEMIDE 80 MG TABLET PO (08:26)
[2019-10-05] MEDS: PANTOPRAZOLE 40 MG TABLET PO (08:26)
[2019-10-05] MEDS: AMLODIPINE BESYLATE 5 MG TABLET PO (08:27)
[2019-10-05 08:28] VITALS: RESP 14; O2SAT 100
[2019-10-05 08:30] VITALS: BP 129/66
[2019-10-05 08:31] VITALS: BP 122/63
[2019-10-05 08:32] VITALS: BP 100/62
[2019-10-05 11:04] LABS: Glucose Point of Care 182 (65-105)
--- NOTE | 2019-10-05 12:12 | PM.DS ---
DS: Diagnosis Admitting Diagnosis Admitting Diagnosis: Acute kidney failure, unspecified Discharge Diagnosis (1) Acute dehydration: Code(s): E86.0 - Dehydration Status: Acute Assessment and Plan: Patient had nausea and vomiting for approximately 2 days and is also on Lasix 80 mg BID. Unclear of etiology behind n/v but this appears to have resolved today. CT scan did not offer up any diagnosis. She received light IVF during her stay. Cr 3.00 today. She is still orthostatic today and got dizzy upon standing this morning per nursing; this afternoon nursing reports improvement although still slightly weak 500 mL bolus IVF this afternoon appeared to improve. Will discharge today Patient wishing to go home today and has her son at home to care for her. Continue SAMARA nelson Discussed with Dr. Forbes today and will decrease her lasix to 40 mg daily and have her follow up with him in 1 week (2) Nausea and vomiting: Qualifiers: Vomiting Intractability: intractable Vomiting type: unspecified Qualified Code(s): R11.2 - Nausea with vomiting, unspecified Code(s): R11.2 - Nausea with vomiting, unspecified Status: Acute Assessment and Plan: This appears to have resolved. Unclear etiology - possible viral gastritis?. Tolerating diabetic diet without issues (3) Acute on chronic kidney failure: Qualifiers: Acute renal failure type: unspecified Chronic kidney disease stage: stage 4 (severe) Qualified Code(s): N17.9 - Acute kidney failure, unspecified; N18.4 - Chronic kidney disease, stage 4 (severe) Code(s): N17.9 - Acute kidney failure, unspecified; N18.9 - Chronic kidney disease, unspecified Status: Acute Assessment and Plan: The patient follows up with Dr. Forbes and she was on dialysis up until late Jul/early August. Patient has had biopsy findings of diabetic renal disease, also has hypertensive nephrosclerosis. Creatinine this morning was 3.00 - up but spoke with Dr. Forbes who will follow up as an outpatient in 1 week Dialysis catheter removed per Surgery team yesterday. Per Dr. Forbes recommendations will reduce lasix 40 mg daily upon discharge Follow up with Dr. Forbes (4) Diabetes mellitus: Qualifiers: Diabetes mellitus complication status: with hyperglycemia Diabetes mellitus type: type 1 Qualified Code(s): E10.65 - Type 1 diabetes mellitus with hyperglycemia Code(s): E11.9 - Type 2 diabetes mellitus without complications Status: Chronic Assessment and Plan: Will continue her long-acting insulin and her sliding scale insulin. Glucose in 70s this morning. Lantus increased to 23 Units HS during stay Will likely discharge on home insulin regimen and recommend increasing long acting insulin if consistently elevated at home. Will continue with her Short acting insulin regimen as well Follow up with home visitor Continue Accu-Cheks AC and HS, hypoglycemia protocol, and correctional insulin during stay (5) HTN (hypertension): Qualifiers: Hypertension type: essential hypertension Qualified Code(s): I10 - Essential (primary) hypertension Code(s): I10 - Essential (primary) hypertension Status: Chronic Assessment and Plan: BP 120s sys supine/sitting, but 100 sys upon standing. 500 mL bolus given and will reassess this afternoon Will continue home HTN medications Lasix reduced to [address] Forbes recommendations PRN hydralazine with parameters (6) Hyperlipidemia: Code(s): E78.5 - Hyperlipidemia, unspecified Status: Chronic Assessment and Plan: Continue with Lipitor. (7) Leukocytosis:
[2019-10-05 14:00] VITALS: BP 152/61; PULSE 82; RESP 16; TEMP 36.4; O2SAT 98
[2019-10-05 16:14] LABS: Glucose Point of Care 224 (65-105)
[2019-10-05] MEDS: INSULIN ASPART (*BKC) 100 UNITS/ML SUB-Q (16:49)
== END 2019-10-05 17:35 | disposition home or self-care (01) | DRG 683 ==
LOC: ANHED 18:05 → ANH3MED 18:21
PROVIDERS: Emergency Medicine; Internal Medicine Nephrology; Nurse Practitioner; Physician Assistant; Admitting Provider Family Medicine; Emergency Provider Emergency Medicine; PCP Internal Medicine; Visit Provider Family Medicine
DX: N17.9 Acute kidney failure, unspecified (principal); E87.1 Hypo-osmolality and hyponatremia; E86.0 Dehydration; E10.22 Type 1 diabetes mellitus with diabetic chronic kidney disease; I12.9 Hypertensive chronic kidney disease with stage 1 through stage 4 chronic kidney disease, or unspecified chronic kidney disease; N18.4 Chronic kidney disease, stage 4 (severe); E10.65 Type 1 diabetes mellitus with hyperglycemia; A08.4 Viral intestinal infection, unspecified; D72.829 Elevated white blood cell count, unspecified; E78.5 Hyperlipidemia, unspecified; Z87.891 Personal history of nicotine dependence; Z89.422 Acquired absence of other left toe(s); Z79.4 Long term (current) use of insulin
CPT/HCPCS: 36415; 36600; 71046; 74176; 80053; 80069; 81001; 81025; 82010; 82375; 82805; 83050; 83690; 83735; 84100; 84443; 85025; 85027; 93005; 96361; 96374; 96375; 96376; 99285; A9270; G0378; J0131; J0360; J1200; J1815; J2405; J2765; J7030; J7050

== ENCOUNTER 2019-10-19 19:12 | Observation (INO) | payer BC, MEDICAID, SELFPAY ==
[2019-10-19] VITALS (8 sets, daily range): BP systolic 175–230; BP diastolic 80–116; PULSE 96–111; RESP 15–20; TEMP 36.8–37.6; O2SAT 98–99
--- NOTE | ~2019-10-19 | CT_ITS ---
EXAMINATION: CT brain wo con EXAM DATE: 10/20/2019 23:54 INDICATION: Severe headache. TECHNIQUE: Spiral CT of the head was performed without contrast. Axial, coronal and sagittal images were reviewed. The dose-length product (DLP) for this examination was 681.00 mGy-cm. The exposure w as tailored according to patient size, and iterative reconstruction (ASIR) was used as additional dos e reduction technique. There is no prior study for comparison. FINDINGS: Low-lying cerebellar tonsils, incidental congenital finding. There is no acute intraparench ymal hemorrhage. No evidence of intraparenchymal brain mass lesion. No evidence of acute infarction . There is no mass effect or midline shift. The ventricles are normal in size. There are no extra- axial collections. There are no acute calvarial fractures. The orbits are unremarkable. Soft tissue is unremarkable. The visualized sinuses and mastoid air cells are well aerated. IMPRESSION: 1. No acute intracranial findings. 2. Low-lying cerebellar tonsils. Reviewed, dictated and finalized at location G.
--- NOTE | ~2019-10-19 | XR_ITS ---
EXAMINATION: XR chest 2V DATE: 10/20/2019 11:22 INDICATION: Productive cough. Intractable vomiting. TECHNIQUE: PA and lateral views of the chest were obtained. COMPARISON: Chest radiograph dated 10/02/2019 and 07/22/2019 FINDINGS: Unchanged small streaky opacity consistent with chronic atelectasis/scarring at the lateral right mid lung zone. New very small left pleural effusion with blunting at the left posterior sulcus. Remainder of the lungs are clear. No pulmonary edema, pneumothorax or right pleural effusion. The cardiomedias tinal silhouette is normal. Mild thoracic spondylosis. IMPRESSION: 1. New very small left pleural effusion. Reviewed, dictated and finalized at location A.
[2019-10-19 19:45] LABS: Basophils Absolute Auto 0.1 K/mm3 (0.0-0.1); Basophils Percent Auto 0.6 % (0.2-1.2); Eosinophils Absolute Auto 0.1 K/mm3 (0-0.3); Eosinophils Percent Auto 0.9 % (0-4.4); Hematocrit 41.2 % (37.0-47.0); Hemoglobin 13.1 g/dL (12.0-15.0); Immature Granulocyte Absolute 0.06 K/mm3 (0.00-0.031); Immature Granulocyte Percent A 0.5 % (0-0.5); Lymphocytes Absolute Auto 2.08 K/mm3 (0.9-3.2); Lymphocytes Percent Auto 16.8 % (18.3-44.2); Mean Corpuscular HGB Conc 31.8 g/dl (32-36); Mean Corpuscular Hemoglobin 28.3 pg (26-34); Mean Platelet Volume 10.4 fl (7.4-10.4); Monocytes Absolute Auto 0.4 K/mm3 (0.1-0.6); Monocytes Percent Auto 3.3 % (2.6-8.5); Neutrophils Absolute Auto 9.7 K/mm3 (1.3-6.7); Neutrophils Percent Auto 77.9 % (45.5-73.1); Platelet Count Result 276 k/mm3 (150-375); Red Blood Count 4.63 M/mm3 (4.2-5.4); White Blood Count 12.4 K/mm3 (4.5-10.0)
[2019-10-19 20:04] LABS: Add Urine Microscopic? YES; Appearance Urine Clear (Clear); Bacteria Urine Trace /hpf; Bilirubin Urine Negative (Negative); Blood Urine Negative (Negative); Color Urine Yellow (Yellow); Glucose Urine UA 3+ mg/dL (Negative); Ketones Urine Trace mg/dL (Negative); Leukocyte Esterase Ur Negative LEU/UL (Negative); Mucus Urine Rare /lpf; Nitrate Urine Negative (Negative); Protein Urine 3+ mg/dL (Negative); Specific Grav Ur 1.016 (1.001-1.035); Squamous Epithelial Cell Urine Many /hpf (Few); Urobilinogen Urine Negative mg/dL (<2.0); WBC Urine 0-3 /hpf
[2019-10-19 20:05] LABS: Alanine Aminotransferase 13 U/L (4-35); Albumin Level 3.7 g/dL (3.5-5.1); Alkaline Phosphatase 126 U/L (38-126); Aspartate Amino Transferase 27 U/L (14-36); Bilirubin,Total 0.7 mg/dL (0.2-1.3); Blood Urea Nitrogen 36 mg/dL (7-17); Calcium 9.2 mg/dL (8.4-10.2); Carbon Dioxide 25 mmol/L (22-30); Chloride 105 mmol/L (98-107); Estimated CRCL calculation 20 ml/min; Estimated Glomerular Filt Rate 15; Glucose 254 mg/dL (65-105); Lipase 117 U/L (23-300); Potassium 4.5 mmol/L (3.4-5.0); Sodium 136 mmol/L (137-145)
--- NOTE | 2019-10-19 20:26 | ED.GENADULT ---
HPI - General Adult General Chief complaint: Nausea/Vomiting/Diarrhea Stated complaint: n/v, chest pain Time Seen by Provider: 10/19/19 19:37 Source: patient Mode of arrival: ambulatory Limitations: no limitations History of Present Illness HPI narrative: Patient is a 44 y/o female complaining of nausea, vomiting and diarrhea since yesterday. She state that she vomited 7-8 times. She is vomiting liquid and bile. She states that eating makes it worse. She has some mild abdominal pain. She has chills but denies any documented fever. Related Data Home Medications Medication Instructions Recorded Confirmed atorvastatin 80 mg PO HS 06/05/19 10/20/19 pantoprazole [Protonix] 40 mg PO QAM 06/05/19 10/20/19 Basaglmarbella LeonardikPen U-100 Insulin 17 unit SUBCUT HS 10/02/19 10/20/19 amlodipine 5 mg PO DAILY 10/04/19 10/20/19 diltiazem HCl 180 mg PO DAILY 10/19/19 10/20/19 furosemide 80 mg PO DAILY 10/19/19 10/20/19 metoclopramide HCl 10 mg PO DAILY 10/19/19 10/20/19 metolazone 5 mg PO TID 10/19/19 10/20/19 Allergies Allergy/AdvReac Type Severity Reaction Status Date / Time No Known Drug Allergies Allergy Unknown Verified 10/19/19 19:27 Review of Systems Constitutional: Constitutional: Denies chills, Denies fever(s), Denies headache(s) and Denies weakness Eyes: Eyes: Denies blurry vision ENT: Denies headache(s) and Denies neck pain Cardiovascular: Cardiovascular: Denies chest pain and Denies dyspnea Respiratory: Respiratory: Denies cough and Denies dyspnea Gastrointestinal: Gastrointestinal: Reports abdominal pain, Reports diarrhea, Reports nausea and Reports vomiting Genitourinary: Genitourinary: Denies hematuria and Denies dysuria Musculoskeletal: Musculoskeletal: Denies back pain and Denies neck pain Neurologic: Denies headache(s) and Denies weakness [facility] Past Medical History Medical History Amputation of toe Anasarca Chronic kidney disease, stage 3 Chronic osteomyelitis Chronic renal failure, stage 3 (moderate) CKD stage 3 due to type 1 diabetes mellitus Diabetes mellitus HTN (hypertension) Hyperlipidemia Hypokalemia Kidney failure Pyuria Surgical History Surgical History H/O tubal ligation History of amputation 2 toes on the left History of section, classical X2 History of tonsillectomy and adenoidectomy Hx of myringotomy S/P dialysis catheter insertion Right internal jugular S/P lateral meniscal repair S/P PICC central line placement Now removed S/P rotator cuff repair Family History Family History Unknown Adopted Social History Social History Social History: The patient stated that she has 2 children and she lives with her who she appoints to be her power of tax associate attorney. She desires to be a full code. She is not currently working she is now on disability. Patient stated that she is down to 4-5 cigarettes a day. Smoking packs per day: 0.25 Smoking cigarettes per day: 5.0 Years smoked: 30 Smoking pack-years: 7.50 Smoking status: Current every day smoker Tobacco type: cigarettes Additional smoking assessment comments: 2 packs per week Alcohol intake: never Substance use: never Substance use type: does not use Gender identity (if verbalized by the patient): Female Spiritual care concerns: No Agree to blood products: Yes Exam Const: General: no acute distress and well developed Orientation/consciousness: oriented to person, oriented to place, oriented to time and patient oriented x3 HENMT: Head: normocephalic Ears: external ears normal General nose exam: Normal external nose present Eyes: General: appearance normal, both eyes and all related structures Conjunctivae: conjunctivae normal Neck: Neck: normal visual inspection and fu
[2019-10-19] MEDS: LABETALOL HCL INJ 100 MG/20 ML VIAL 20 MG IV PUSH ×2 (20:51→23:47)
[2019-10-19] MEDS: ONDANSETRON INJ 4 MG/2 ML VIAL (20:59)
--- NOTE | 2019-10-19 22:21 | ECG_ITS ---
Measurements Intervals [place] Rate: 96 P: 51 CA: 177 QRS: 9 QRSD: 90 T: 31 QT: 364 QTc: 461 Interpretive Statements SINUS RHYTHM BORDERLINE R WAVE PROGRESSION, ANTERIOR LEADS BORDERLINE ECG Electronically Signed On 10-20-2019 7:03:32 CDT by Misael Ahmadi D.O.
[2019-10-19] MEDS: METOCLOPRAMIDE HCL INJ 10 MG/2 ML VIAL IV PUSH (23:34)
[2019-10-20] VITALS (16 sets, daily range): BP systolic 151–211; BP diastolic 59–92; PULSE 82–105; RESP 18–22; TEMP 36.2–37.3; O2SAT 97–99; BMI 26.2
[2019-10-20] MEDS: PANTOPRAZOLE SODIUM IV 40 MG VIAL IV PUSH ×2 (00:25→08:50)
--- NOTE | 2019-10-20 01:31 | ADMGEN ---
This patient, Pamela Bhat, was admitted to IMU Room 213-01 at 0100 on 10/20/19. Patient/family oriented to hospital policies and general routines including ID bracelet, bed and alarms, visiting hours, pain management, procedures, bathroom and other care routines, personal items, smoking policy, room service/diet, and visiting hours. Valuables list has been completed. Information on how to activate the Rapid Response Team has been discussed. Patient/Family are encouraged to report perceived risks to care and to ask questions if they do not understand what they are told or what they should do.
[2019-10-20] MEDS: SODIUM CHLORIDE 0.9% IV 1,000 ML 100 ML IV CONT (01:51)
[2019-10-20 02:34] LABS: Troponin I 0.042 ng/mL (0.000-0.034)
[2019-10-20] MEDS: ONDANSETRON INJ 4 MG/2 ML VIAL IV PUSH (04:10)
[2019-10-20] MEDS: hydrALAZINE HCL 20 MG/ML VIAL 10 MG IV PUSH (04:10)
[2019-10-20 05:37] LABS: Troponin I 0.037 ng/mL (0.000-0.034)
[2019-10-20 07:37] LABS: Hemoglobin A1C 11.7 % (<5.7)
[2019-10-20 08:44] LABS: Glucose Point of Care 251 (65-105)
[2019-10-20] MEDS: INSULIN ASPART (*BKC) 100 UNITS/ML SUB-Q ×2 (08:48→13:02)
[2019-10-20] MEDS: METOCLOPRAMIDE HCL INJ 10 MG/2 ML VIAL IV PUSH (08:50)
--- NOTE | 2019-10-20 10:18 | PM.IMHP ---
H&P: HPI History of Present Illness Chief complaint: Intractable Vomiting Narrative: Pamela Bhat is a 44 year old female with history of chronic osteomyelitis of left foot, DMI, CKDIII due to DM, and hypertension who presented to the hospital on evening 10/18 with complaints of nausea and vomiting. Patient states her symptoms started on 10/17. She denies any changes in diet and that she all of sudden got sick and has not been able to hold her meds or food down since. She states food makes it worse and nothing has made this better as she has not been able to hold down medications. She denies any abdominal pain associated with her symptoms. She has had hot flashes associated with n/v. No diarrhea, bloody emesis, coffee ground emesis since her symptoms first started, BRBPR, melena. No changes in diet. No sick contacts at home. Denies alcohol or illicit drug use. Patient states her n/v is about the same today. She also notes that her face is more swollen this morning. She has a new cough that is slightly productive today; no sick contacts at home; she is a current smoker as well. Patient does note she had chest pain last night, but states it felt more like reflux as it was midsternal in nature and associated with her vomiting; no CP since. She denies any acute issues with her left foot wounds; no evidence of redness/swelling/infection. She has no other complaints this morning. Denies myalgias/arthralgias, headaches, dizziness, lightheadedness, changes in v/h, cp/palpitations today, sob, abd pain, changes in BMs, dysuria, hematuria, cloudy urine, calf pain/swelling. Review of Systems Review of Systems: All systems reviewed & are unremarkable except as noted in HPI and below PMFSH Past Medical History Medical History Amputation of toe Anasarca Chronic kidney disease, stage 3 Chronic osteomyelitis Chronic renal failure, stage 3 (moderate) CKD stage 3 due to type 1 diabetes mellitus Diabetes mellitus HTN (hypertension) Hyperlipidemia Hypokalemia Kidney failure Pyuria Surgical History Surgical History H/O tubal ligation History of amputation 2 toes on the left History of section, classical X2 History of tonsillectomy and adenoidectomy Hx of myringotomy S/P dialysis catheter insertion Right internal jugular S/P lateral meniscal repair S/P PICC central line placement Now removed S/P rotator cuff repair Family History Family History Unknown Adopted Social History Social History Social History: The patient stated that she has 2 children and she lives with her who she appoints to be her power of insolvency practitioner. She desires to be a full code. She is not currently working she is now on disability. Patient stated that she is down to 4-5 cigarettes a day. Smoking packs per day: 0.25 Smoking cigarettes per day: 5.0 Years smoked: 30 Smoking pack-years: 7.50 Smoking status: Current every day smoker Tobacco type: cigarettes Additional smoking assessment comments: 2 packs per week Alcohol intake: never Substance use: never Substance use type: does not use Gender identity (if verbalized by the patient): Female Spiritual care concerns: No Agree to blood products: Yes Meds Home Medications and Allergies Home Medications Medication Instructions Recorded Confirmed Type atorvastatin 80 mg PO HS 06/05/19 10/20/19 History pantoprazole [Protonix] 40 mg PO QAM 06/05/19 10/20/19 History acetaminophen [Mapap 650 mg PO Q4H PRN #60 tablet 06/09/19 10/20/19 Rx (acetaminophen)] insulin aspart U-100 [Novolog 7 unit SUB-Q TID 30 Days #6.3 ml 07/31/19 10/20/19 Rx Flexpen U-100 Insulin] Basaglar KwikPen U-100 Insulin 17 unit SUBCUT HS 10/02/19 10/20/19 History amlodipi
--- NOTE | 2019-10-20 10:56 | PM.CNNEP ---
Assessment and Plan Additional Plan Chronic kidney disease stage 4 going to a stage 5 Puffiness of face and swelling over the body indicated for fluid retention Nausea and vomiting consistent with gastroparesis but probably exacerbated by renal failure Mild hyponatremia Admitted with diabetic gastroparesis with intractable nausea and vomiting. Plan: Hep-Lock IV fluids, diuretics, I will arrange for an AV shunt in the patient. Briefly talked to her about peritoneal dialysis. She indicates that she will not be able to do the peritoneal dialysis. I have a fear that her gastroparesis i may get worse with intra-abdominal pressure with the intra-abdominal dialysate that will be necessary for her peritoneal dialysis. I will arrange an AV access soon on an outpatient basis. I do not want to proceed dialysis immediately as this will entail placement of a dialysis catheter again and would put her at risk for infection. We can maintain diuretics for fluid manage. Anticipation of outpatient dialysis in the very near future. I discussed with her the plans and she is agreeable. Will d/w hospitalist team History of Present Illness Reason for Consult Consult date: 10/20/19 Reason for consult: chronic renal failure Requesting physician: Bruce Marinelli PA-C Chief Complaint Chief complaint: Intractable Vomiting History of Present Illness Narrative: 44-year-old white female who has a history of diabetes mellitus on insulin therapy. Has a history of diabetic gastroparesis. Has recurrent episodes of nausea and vomiting and once again started Friday and had to come into the hospital. She recently had bouts similar to this with intractable nausea and vomiting. Few months ago she had acute on chronic renal failure related to once a day event and was on dialysis temporarily. A tunnel dialysis catheter was placed and this has since been removed. She has been observed off of dialysis. Her symptoms are better when she was receiving dialysis. She does not have fever or chills. No abdominal discomfort. She makes less urine and she has required diuretics. Currently looks swollen up. She is receiving IV fluids due to her underlying medical problems, the the nausea and vomiting. Estimated GFR is 15 mils per minute with a creatinine of 3.3 mg/dL. Renal biopsy in fact shows diabetic renal disease with arterial sclerotic disease Review of Systems Review of Systems: All systems reviewed & are unremarkable except as noted in HPI and below (Has some swelling. No increase in shortness of breath.) [facility] Past Medical History Medical History Amputation of toe Anasarca Chronic kidney disease, stage 3 Chronic osteomyelitis Chronic renal failure, stage 3 (moderate) CKD stage 3 due to type 1 diabetes mellitus Diabetes mellitus HTN (hypertension) Hyperlipidemia Hypokalemia Kidney failure Pyuria Surgical History Surgical History H/O tubal ligation History of amputation 2 toes on the left History of section, classical X2 History of tonsillectomy and adenoidectomy Hx of myringotomy S/P dialysis catheter insertion Right internal jugular S/P lateral meniscal repair S/P PICC central line placement Now removed S/P rotator cuff repair Family History Family History Unknown Adopted Social History Social History Social History: The patient stated that she has 2 children and she lives with her who she appoints to be her power of compliance attorney. She desires to be a full code. She is not currently working she is now on disability. Patient stated that she is down to 4-5 cigarettes a day. Smoking packs per day: 0.25 Smoking cigarettes per day: 5.0 Years smoked: 30 Smoking pack-years: 7.50 Smoking status: Current every day smoker [facility]
[2019-10-20] MEDS: AMLODIPINE BESYLATE 5 MG TABLET PO (11:56)
[2019-10-20 11:58] LABS: Basophils Absolute Auto 0.1 K/mm3 (0.0-0.1); Basophils Percent Auto 0.4 % (0.2-1.2); Eosinophils Absolute Auto 0.1 K/mm3 (0-0.3); Eosinophils Percent Auto 0.4 % (0-4.4); Hemoglobin 11.5 g/dL (12.0-15.0); Immature Granulocyte Absolute 0.04 K/mm3 (0.00-0.031); Immature Granulocyte Percent A 0.3 % (0-0.5); Lymphocytes Absolute Auto 1.97 K/mm3 (0.9-3.2); Lymphocytes Percent Auto 14.1 % (18.3-44.2); Mean Corpuscular HGB Conc 31.9 g/dl (32-36); Mean Corpuscular Hemoglobin 28.8 pg (26-34); Mean Corpuscular Volume 90.2 fl (80-100); Mean Platelet Volume 9.9 fl (7.4-10.4); Monocytes Absolute Auto 0.6 K/mm3 (0.1-0.6); Monocytes Percent Auto 4.1 % (2.6-8.5); Neutrophils Absolute Auto 11.3 K/mm3 (1.3-6.7); Neutrophils Percent Auto 80.7 % (45.5-73.1); Platelet Count Result 234 k/mm3 (150-375); Red Blood Count 3.99 M/mm3 (4.2-5.4)
[2019-10-20 12:09] LABS: Albumin Level 3.2 g/dL (3.5-5.1); Blood Urea Nitrogen 36 mg/dL (7-17); Calcium 8.7 mg/dL (8.4-10.2); Carbon Dioxide 25 mmol/L (22-30); Chloride 108 mmol/L (98-107); Estimated CRCL calculation 17 ml/min; Estimated Glomerular Filt Rate 14; Glucose 215 mg/dL (65-105); Phosphorus 4.5 mg/dL (2.5-4.5); Sodium 138 mmol/L (137-145)
[2019-10-20 12:12] LABS: Glucose Point of Care 211 (65-105)
[2019-10-20 16:56] LABS: Glucose Point of Care 107 (65-105)
[2019-10-20] MEDS: ACETAMINOPHEN 325 MG TABLET 650 MG PO (18:37)
[2019-10-20] MEDS: metOLazone 5 MG TABLET PO (18:39)
[2019-10-20 20:33] LABS: Glucose Point of Care 220 (65-105)
[2019-10-20] MEDS: INSULIN GLARGINE (*BKC) 100 UNITS/ML 17 UNITS SUB-Q (20:38)
[2019-10-21] VITALS: PULSE 91
[2019-10-21 02:00] VITALS: PULSE 87
[2019-10-21 04:00] VITALS: BP 164/76; PULSE 79; PULSE 80; RESP 20; TEMP 36.7; O2SAT 95
[2019-10-21 04:51] LABS: Basophils Absolute Auto 0.1 K/mm3 (0.0-0.1); Basophils Percent Auto 0.6 % (0.2-1.2); Eosinophils Absolute Auto 0.2 K/mm3 (0-0.3); Eosinophils Percent Auto 1.3 % (0-4.4); Hematocrit 31.7 % (37.0-47.0); Hemoglobin 10.1 g/dL (12.0-15.0); Immature Granulocyte Absolute 0.07 K/mm3 (0.00-0.031); Immature Granulocyte Percent A 0.6 % (0-0.5); Lymphocytes Absolute Auto 2.41 K/mm3 (0.9-3.2); Lymphocytes Percent Auto 19.8 % (18.3-44.2); Mean Corpuscular HGB Conc 31.9 g/dl (32-36); Mean Corpuscular Hemoglobin 28.5 pg (26-34); Mean Corpuscular Volume 89.3 fl (80-100); Mean Platelet Volume 10.6 fl (7.4-10.4); Monocytes Absolute Auto 0.6 K/mm3 (0.1-0.6); Monocytes Percent Auto 4.8 % (2.6-8.5); Neutrophils Absolute Auto 8.9 K/mm3 (1.3-6.7); Neutrophils Percent Auto 72.9 % (45.5-73.1); Platelet Count Result 196 k/mm3 (150-375); Red Blood Count 3.55 M/mm3 (4.2-5.4); Red Cell Distribution Width 15.2 % (11.5-14.5); White Blood Count 12.2 K/mm3 (4.5-10.0)
[2019-10-21 05:15] LABS: Albumin Level 2.5 g/dL (3.5-5.1); Blood Urea Nitrogen 36 mg/dL (7-17); Calcium 7.9 mg/dL (8.4-10.2); Carbon Dioxide 28 mmol/L (22-30); Chloride 105 mmol/L (98-107); Estimated CRCL calculation 17 ml/min; Estimated Glomerular Filt Rate 14; Glucose 173 mg/dL (65-105); Phosphorus 4.2 mg/dL (2.5-4.5); Potassium 3.8 mmol/L (3.4-5.0); Sodium 134 mmol/L (137-145)
[2019-10-21 05:52] VITALS: PULSE 79
[2019-10-21 08:00] VITALS: BP 176/86; PULSE 85; PULSE 89; RESP 18; TEMP 36.9; O2SAT 98
[2019-10-21 08:12] LABS: Glucose Point of Care 138 (65-105)
[2019-10-21] MEDS: PANTOPRAZOLE 40 MG TABLET PO (08:36)
[2019-10-21] MEDS: METOCLOPRAMIDE HCL 10 MG TABLET PO (08:36)
[2019-10-21] MEDS: AMLODIPINE BESYLATE 5 MG TABLET PO (08:36)
[2019-10-21] MEDS: metOLazone 5 MG TABLET PO (08:38)
[2019-10-21] MEDS: FUROSEMIDE 40 MG TABLET PO (08:38)
[2019-10-21 10:00] VITALS: PULSE 87
--- NOTE | 2019-10-21 11:15 | PM.DS ---
DS: Diagnosis Admitting Diagnosis Admitting Diagnosis: Nausea with vomiting, unspecified Discharge Diagnosis (1) Nausea and vomiting: Qualifiers: Vomiting Intractability: intractable Vomiting type: unspecified Qualified Code(s): R11.2 - Nausea with vomiting, unspecified Code(s): R11.2 - Nausea with vomiting, unspecified Status: Acute Assessment and Plan: N/V has resolved today; patient tolerating diet. No abdominal pain. Gastroparesis has been mentioned to her before but does not appear to have definitive diagnosis. Other etiologies may be viral in nature. Patient feels comfortable with discharge and follow up with PCP and Nephrology as outpatient Continue diabetic diet Continue home medications as prescribed Will recommend f/u with GI (2) Acute on chronic kidney failure: Qualifiers: Acute renal failure type: unspecified Chronic kidney disease stage: stage 4 (severe) Qualified Code(s): N17.9 - Acute kidney failure, unspecified; N18.4 - Chronic kidney disease, stage 4 (severe) Code(s): N17.9 - Acute kidney failure, unspecified; N18.9 - Chronic kidney disease, unspecified Status: Acute Assessment and Plan: Baseline Cr as low as 2.70-2.80 on previous admission this month. Cr 3.50 today; stable. Follows Dr. Forbes Nephrology who has been consulted; appreciate recommendations. Possibly worsened Cr due to dehydration from n/v. Was briefly on dialysis earlier this year, but has since been off dialysis with right internal jugular tunnel dialysis catheter removed last hospital stay. It appears Dr. Forbes will be setting up possible AV fistula as outpatient Appreciate Nephrology recommendations Diuretics continued per Nephrology recommendations Will do BMP in 1 week for further follow up (3) Diabetes mellitus: Qualifiers: Diabetes mellitus complication status: with hyperglycemia Diabetes mellitus type: type 1 Qualified Code(s): E10.65 - Type 1 diabetes mellitus with hyperglycemia Code(s): E11.9 - Type 2 diabetes mellitus without complications Status: Chronic Assessment and Plan: A1c 11.7 this hospital stay. Patient states she is compliant with her medications. BGL mid 100s today Will continue home insulin regimen (4) HTN (hypertension): Qualifiers: Hypertension type: essential hypertension Qualified Code(s): I10 - Essential (primary) hypertension Code(s): I10 - Essential (primary) hypertension Status: Chronic Assessment and Plan: BP into 200s sys upon presentation. This has improved since tolerating PO and able to take her medications. Still not at goal at 160s-170s sys this morning Continue home BP meds at discharge Recommend monitoring BP daily and recording measurements (5) Hyperlipidemia: Code(s): E78.5 - Hyperlipidemia, unspecified Status: Chronic Assessment and Plan: continue statin at discharge (6) Leukocytosis: Qualifiers: Leukocytosis type: unspecified Qualified Code(s): D72.829 - Elevated white blood cell count, unspecified Code(s): D72.829 - Elevated white blood cell count, unspecified Status: Acute Assessment and Plan: WBC 12.2k today. This appears chronic upon review of labs on previous stays. No s/sx of active foot infection. UA not suggestive of UTI. Patient does have cough, but lung exam benign and patient is a smoker. Slight fever at admission; afebrile since; Tachycardia noted. CXR unremarkable for signs of pneumonia Will do CBC in 1 week for follow up (7) Elevated troponin: Code(s): R79.89 - Other specified abnormal findings of blood chemistry Status: Acute Assessment and Plan: Mildly
[2019-10-21 12:13] LABS: Glucose Point of Care 236 (65-105)
== END 2019-10-21 13:15 | disposition home or self-care (01) ==
LOC: ANHED 10-20 00:15 → ANHIMU 10-20 01:43
PROVIDERS: Admitting Provider Internal Medicine; Emergency Provider Emergency Medicine; PCP Internal Medicine; Visit Provider Physician Assistant
DX: R11.2 Nausea with vomiting, unspecified (principal); N17.9 Acute kidney failure, unspecified; E10.22 Type 1 diabetes mellitus with diabetic chronic kidney disease; I16.0 Hypertensive urgency; I12.9 Hypertensive chronic kidney disease with stage 1 through stage 4 chronic kidney disease, or unspecified chronic kidney disease; N18.4 Chronic kidney disease, stage 4 (severe); E10.65 Type 1 diabetes mellitus with hyperglycemia; E78.5 Hyperlipidemia, unspecified; D72.829 Elevated white blood cell count, unspecified; R79.89 Other specified abnormal findings of blood chemistry; E87.1 Hypo-osmolality and hyponatremia; F17.210 Nicotine dependence, cigarettes, uncomplicated
CPT/HCPCS: 36415; 70450; 71046; 80053; 80069; 81001; 81025; 83036; 83690; 83735; 84484; 85025; 93005; 96361; 96374; 96375; 96376; 99285; A9270; C9113; G0378; J0360; J1815; J2405; J2765; J7030

== ENCOUNTER 2019-10-27 17:41 | Emergency (ER) | payer BC, MEDICAID, SELFPAY ==
--- NOTE | ~2019-10-27 | CT_ITS ---
EXAMINATION: CT abdomen pelvis wo con EXAM DATE: 10/27/2019 18:33 INDICATION: Nausea vomiting diarrhea, symptoms 12 hours. Mid abdominal pain. TECHNIQUE: Spiral CT of the abdomen and pelvis was performed without contrast. Axial, coronal and s agittal images were reviewed. The dose-length product (DLP) for this examination was 453.58 mGy-cm. The exposure was tailored according to patient size (auto mA exposure control), and iterative recons truction (ASIR) was used as additional dose reduction technique. Comparison is made to prior examinat ion from 10/02/2019. FINDINGS: There is interval development of anasarca, only mild body wall edema on prior study. The l iver, spleen, adrenal glands and pancreas are unremarkable. Gallbladder is unremarkable. No biliary obstruction. There is no nephrolithiasis or hydronephrosis. The uterus is unremarkable. Calcifica tions in the pelvis are believed to be phleboliths. The bladder is unremarkable. There is no retro peritoneal or pelvic lymphadenopathy. There is mild scattered arteriosclerotic disease. The appendix is not positively visualized. There is no pericecal inflammatory change to suggest appe ndicitis. The stomach and small bowel are unremarkable. There is expected amount of colonic stool. No free intraperitoneal gas. Small pericardial effusion. The lung bases are unremarkable. Ther e are no osteoblastic or osteolytic lesions identified. IMPRESSION: 1. No acute intra-abdominal findings. 2. Development of anasarca. 3. Small pericardial effusion. Reviewed, dictated and finalized at location A.
[2019-10-27 17:46] VITALS: BP 211/155; PULSE 111; RESP 20; TEMP 36.8; O2SAT 99
[2019-10-27 18:25] LABS: Glucose Point of Care 305 (65-105)
[2019-10-27] MEDS: ONDANSETRON INJ 4 MG/2 ML VIAL IV PUSH (18:26)
[2019-10-27 18:27] LABS: Basophils Absolute Auto 0.1 K/mm3 (0.0-0.1); Basophils Percent Auto 0.5 % (0.2-1.2); Eosinophils Percent Auto 0.3 % (0-4.4); Hematocrit 40.9 % (37.0-47.0); Hemoglobin 12.7 g/dL (12.0-15.0); Immature Granulocyte Absolute 0.03 K/mm3 (0.00-0.031); Immature Granulocyte Percent A 0.3 % (0-0.5); Immature Platelet Fraction Pct 4.2 % (0.9-11.2); Lymphocytes Absolute Auto 1.03 K/mm3 (0.9-3.2); Lymphocytes Percent Auto 9.8 % (18.3-44.2); Mean Corpuscular HGB Conc 31.1 g/dl (32-36); Mean Corpuscular Volume 90.3 fl (80-100); Mean Platelet Volume 10.6 fl (7.4-10.4); Monocytes Absolute Auto 0.4 K/mm3 (0.1-0.6); Monocytes Percent Auto 4.1 % (2.6-8.5); Platelet Count Result 135 k/mm3 (150-375); Red Blood Count 4.53 M/mm3 (4.2-5.4); Red Cell Distribution Width 15.2 % (11.5-14.5); White Blood Count 10.6 K/mm3 (4.5-10.0)
--- NOTE | 2019-10-27 18:29 | ED.NAVMDI ---
HPI - Nausea/Vomiting/Diarrhea General Chief complaint: Nausea/Vomiting/Diarrhea Stated complaint: N/V [id number] Time Seen by Provider: 10/27/19 18:13 Source: patient Mode of arrival: ambulatory Limitations: no limitations History of Present Illness HPI Narrative: Pt c/o n/v accompanied by diffuse abd pain, started today. Pain is 8/10, dull ache, non radiating. Denies diarrhea or fever. Pt states she is supposed to have a port placed tomorrow at another hospital for dialysis. MD elicited complaint: nausea and vomiting Associated nausea: Yes Associated abdominal pain: Yes Related Data Home Medications Medication Instructions Recorded Confirmed atorvastatin 80 mg PO HS 06/05/19 10/20/19 pantoprazole [Protonix] 40 mg PO QAM 06/05/19 10/20/19 Basaglar KwikPen U-100 Insulin 17 unit SUBCUT HS 10/02/19 10/20/19 amlodipine 5 mg PO DAILY 10/04/19 10/20/19 diltiazem HCl 180 mg PO DAILY 10/19/19 10/20/19 furosemide 80 mg PO DAILY 10/19/19 10/20/19 metoclopramide HCl 10 mg PO DAILY 10/19/19 10/20/19 metolazone 5 mg PO TID 10/19/19 10/20/19 Allergies Allergy/AdvReac Type Severity Reaction Status Date / Time No Known Drug Allergies Allergy Unknown Verified 10/27/19 17:50 Review of Systems Review of Systems: All systems reviewed & are unremarkable except as noted in HPI and below Constitutional: Constitutional: Denies body ache(s), Denies chills, Denies excessive sweating, Denies fatigue, Denies fever(s), Denies headache(s), Denies lethargy, Denies malaise, Denies weakness and Denies weight loss Eyes: Eyes: Denies blurry vision, Denies change in vision and Denies loss of vision ENT: Denies dizziness, Denies ear discharge, Denies headache(s), Denies lip swelling, Denies epistaxis, Denies nasal congestion, Denies neck pain, Denies throat swelling and Denies tongue swelling Cardiovascular: Cardiovascular: Denies chest pain, Denies chest pain at rest, Denies chest pain with activity, Denies diaphoresis, Denies rapid heart rate, Denies edema, Denies irregular heart rhythm, Denies lightheadedness, Denies palpitations, Denies dyspnea and Denies dyspnea on exertion Respiratory: Respiratory: Denies chest congestion, Denies cough, Denies hemoptysis, Denies dyspnea and Denies dyspnea on exertion Gastrointestinal: Gastrointestinal: Denies melena, Denies hematochezia, Denies diarrhea and Denies hematemesis Musculoskeletal: Musculoskeletal: Denies abnormal gait, Denies deformity, Denies joint swelling, Denies limited range of motion, Denies neck pain and Denies numbness Neurologic: Denies Abnormal speech present, Denies abnormal gait, Denies confusion, Denies dizziness, Denies headache(s), Denies focal weakness, Denies loss of vision, Denies numbness, Denies Other visual disturbances, Denies Sensory deficit (Neuro) and Denies weakness Psychiatric: Psychiatric: Denies confusion, Denies depression, Denies auditory hallucinations, Denies homicidal ideation and Denies suicidal ideation Endocrine: Endocrine: Denies cold intolerance, Denies excessive sweating, Denies fatigue, Denies heat intolerance and Denies palpitations Hematologic/Lymphatic: Hematologic/Lymphatic: Denies easy bleeding and Denies easy bruising Allergic/Immunologic: Allergic/Immunologic: Denies lip swelling, Denies throat swelling and Denies tongue swelling PMFSH Social History Social History Social History: The patient stated that she has 2 children and she lives with her who she appoints to be her power of traffic law attorney. She desires to be a full code. She is not currently working she is now on disability. Patient stated that she is down to 4-5 cigarettes a day. Smoking packs per day: 0.25 Smoking cigarettes per day: 5.0 Years smoked: 30 Smoking pack-years: 7.50 Smoking status: Current every day smoker Tobacco type: cigarettes Additional smoking assessment comments: 2 packs per week Alcohol intake: never Subst
[2019-10-27 18:33] LABS: Alanine Aminotransferase 16 U/L (4-35); Albumin Level 3.5 g/dL (3.5-5.1); Alkaline Phosphatase 118 U/L (38-126); Aspartate Amino Transferase 26 U/L (14-36); Bilirubin,Total 0.5 mg/dL (0.2-1.3); Blood Urea Nitrogen 50 mg/dL (7-17); Calcium 8.8 mg/dL (8.4-10.2); Carbon Dioxide 26 mmol/L (22-30); Chloride 102 mmol/L (98-107); Estimated CRCL calculation 18 ml/min; Estimated Glomerular Filt Rate 13; Glucose 314 mg/dL (65-105); Lipase 126 U/L (23-300); Potassium 4.5 mmol/L (3.4-5.0); Sodium 136 mmol/L (137-145)
[2019-10-27 19:00] LABS: Alveolar/Arterial O2 Gradient 16.8 mmHg; Base Excess ABG 2.3 mEq/l (+/-2.0); Device ROOM AIR; Fractional Inspired Oxygen 21 %; HCO3 ABG 27.8 mEq/l (22.0-26.0); Modified Allen's Test Pass; Oxygen Content ABG 16.7 %vol (16.0-22.0); Oxygen Saturation ABG 95.1 % (95.0-100.0); Oxyhemoglobin 91.8 % THb (90.0-100.0); PO2 ABG 76.6 mmHg (80.0-100.0); PO2 FiO2 Ratio Arterial Blood 3.65 %; Site Drawn LEFT RADIAL; Total Hemoglobin 12.9 g/dL (12.0-18.0)
[2019-10-27] MEDS: LACTATED RINGERS 1,000 ML 999 ML IV CONT (19:10)
[2019-10-27] MEDS: LABETALOL HCL INJ 100 MG/20 ML VIAL 20 MG IV PUSH (19:18)
[2019-10-27 19:20] VITALS: BP 197/116; PULSE 104; RESP 16
[2019-10-27 19:30] VITALS: BP 165/87; PULSE 101; RESP 14; O2SAT 99
--- NOTE | 2019-10-27 19:33 | PC.NURSE ---
pt continues to c/o nausea
[2019-10-27] MEDS: PROMETHAZINE HCL 25 MG/ML AMPUL 12.5 MG IV PUSH (19:50)
--- NOTE | 2019-10-27 19:56 | PC.NURSE ---
approx 100 cc brown emesis. pt medicated
== END 2019-10-27 20:30 | disposition home or self-care (01) ==
PROVIDERS: Emergency Provider Emergency Medicine; PCP Internal Medicine
DX: I16.0 Hypertensive urgency (principal); E11.22 Type 2 diabetes mellitus with diabetic chronic kidney disease; N18.6 End stage renal disease; F17.210 Nicotine dependence, cigarettes, uncomplicated; R11.2 Nausea with vomiting, unspecified; R10.84 Generalized abdominal pain; Z79.4 Long term (current) use of insulin
CPT/HCPCS: 36415; 36600; 74176; 80053; 82805; 83690; 85025; 85055; 96361; 96374; 96375; 99284; J2405; J2550; J7120

== ENCOUNTER 2019-12-07 11:14 | Observation (INO) | payer BC, MEDICAID, SELFPAY ==
[2019-12-07] VITALS (13 sets, daily range): BP systolic 152–215; BP diastolic 62–99; PULSE 91–108; RESP 18–20; TEMP 36.6–37.4; O2SAT 96–100; BMI 24.4
--- NOTE | ~2019-12-07 | CT_ITS ---
EXAMINATION: CT BRAIN W/O DATE: 12/09/2019 14:17 INDICATION: Vision changes and weakness TECHNIQUE: Computed tomography (CT) of the head was performed without intravenous contrast. The dose- length product was 605.33 mGy-cm. COMPARISON: No prior studies for comparison. FINDINGS: Normal brain parenchymal volume for age. Normal jordan-white differentiation. No acute intrac ranial hemorrhage, infarction, mass or mass effect. Low-lying cerebellar tonsils extending through th e foramen magnum. These are incompletely visualized and Chiari type I malformation not excluded. Cons ider correlation with MRI. There are scattered mild periventricular and subcortical white matter christine ges, most likely related to small vessel ischemic disease (microangiopathy). No ventriculomegaly or midline shift. Midline sagittal images demonstrate a normal corpus callosum, c raniovertebral junction and sella turcica. Basilar cisterns are patent. Paranasal sinuses and mastoids are pneumatized. No depressed skull fractures. IMPRESSION: 1. No acute intracranial abnormality. 2: Low-lying cerebellar tonsils extending through the foramen magnum, incompletely visualized, Chiar i type I malformation not excluded. Consider correlation with MRI. 3: Chronic age-related findings. Reviewed, dictated and finalized at location A. IMPRESSION: 1. No acute intracranial abnormality. 2: Low-lying cerebellar tonsils extending through the foramen magnum, incomple tely visualized, Chiari type I malformation not excluded. Consider correlation with MRI. 3: Chronic age-related findings.
--- NOTE | ~2019-12-07 | CT_ITS ---
EXAMINATION: CT facial bones wo con EXAM DATE: 12/07/2019 15:02 INDICATION: Facial swelling. Abdominal pain. TECHNIQUE: Spiral CT of the facial bones was acquired in the axial plane without contrast. Coronal reformatted images were also reviewed. The dose-length product (DLP) for this examination was 453.48 mGy-cm. The exposure was tailored according to patient size, and iterative reconstruction (ASIR) wa s used as additional dose reduction technique. There is no prior study for comparison. FINDINGS: Mild nonspecific diffuse facial subcutaneous edema. There are no displaced nasal bone frac tures. The mandible, sinuses and orbits are intact. The orbits, globes and extraocular muscles are unremarkable. Mild bilateral maxillary sinus mucoperiosteal thickening. No sinus air-fluid levels. There are dental cavities, several lower calyx extends to root apices. IMPRESSION: 1. Diffuse nonspecific facial subcutaneous edema. 2. Dental caries. No drainable abscess suspected. Reviewed, dictated and finalized at location A.
--- NOTE | ~2019-12-07 | XR_ITS ---
XR chest 1V portable 12/07/2019 11:49 Indication: Cough and dyspnea Procedure: AP portable chest Comparison: Comparison to multiple prior studies sequentially, with oldest reviewed study dated 07/22. Findings: Interval placement of a dual-lumen central venous catheter, tips in the SVC. Heart size nor mal. No focal air space disease, pulmonary edema, pleural effusion or suspected pneumothorax. Impression: 1: No acute cardiopulmonary disease. Reviewed, dictated and finalized at location A. Impression: 1: No acute cardiopulmonary disease.
--- NOTE | ~2019-12-07 | CT_ITS ---
EXAMINATION: CT abdomen pelvis wo con DATE: 12/07/2019 15:03 INDICATION: Abdominal pain TECHNIQUE: Computed tomography (CT) of the abdomen and pelvis was performed without intravenous contr ast. Automated exposure control and iterative reconstruction technique were employed. The dose-length product was 671.00 mGy-cm. COMPARISON: 10/27/2019 FINDINGS: Mild dependent atelectasis in the left lower lobe. No pleural effusion. Heart size is normal. Tip of a central venous catheter at the high right atrium. Atherosclerotic coronary artery calcification. Sm all pericardial effusion. Extensive body wall edema. Liver, gallbladder, spleen, pancreas, bilateral adrenal glands and kidneys are normal. Normal appendi x. Moderate amount stool scattered throughout the colon. No abnormal bowel wall thickening or obstruc tion. Bladder, anteverted uterus and bilateral adnexa are normal. Small amount of ascites in the cul- de-sac. There is calcified atherosclerosis of the aorta and many of the other arteries. No pathologic ally enlarged abdominal or pelvic lymphadenopathy. Mild scattered degenerative skeletal changes. IMPRESSION: 1. Persistent anasarca with small pericardial effusion, extensive body wall edema and mild ascites. 2. No acute intra-abdominal/pelvic process. Reviewed, dictated and finalized at location A. IMPRESSION: 1. Persistent anasarca with small pericardial effusion, extensive body wall shayla ma and mild ascites. 2. No acute intra-abdominal/pelvic process.
--- NOTE | 2019-12-07 11:30 | ECG_ITS ---
Measurements Intervals Jadwin Rate: 104 P: 59 FL: 169 QRS: 0 QRSD: 90 T: 52 QT: 342 QTc: 451 Interpretive Statements SINUS TACHYCARDIA POSSIBLE LEFT ATRIAL ENLARGEMENT BORDERLINE R WAVE PROGRESSION, ANTERIOR LEADS BASELINE ARTIFACT- I, II, AVR, AVL, V6 ABNORMAL ECG Electronically Signed On 12-07-2019 12:26:10 CDT by Misael Ahmadi D.O.
--- NOTE | 2019-12-07 11:32 | ED.GENADULT ---
HPI - General Adult General Chief complaint: Unspecified Stated complaint: swelling, elevated blood sugar Time Seen by Provider: 12/07/19 11:20 Source: RN notes reviewed History of Present Illness HPI narrative: Patient presents emergency department from dialysis for elevated blood sugar. Patient states that she receives dialysis Saturdays by Dr. Forbes with last dialysis on Friday. She states that she has not taken her insulin for the past 2 days because she has not been feeling well and vomiting and states she is not been taking her other medications as well. Patient states hemodialysis today and secondary to her hyperglycemia as well as the swelling her face she was instructed to come to the ED. Patient denies having any fevers or chills chest pain shortness of breath or any other symptoms states she does have chronic swelling. Related Data Home Medications Medication Instructions Recorded Confirmed atorvastatin 80 mg PO HS 06/05/19 10/20/19 pantoprazole [Protonix] 40 mg PO QAM 06/05/19 10/20/19 Basaglar KwikPen U-100 Insulin 17 unit SUBCUT HS 10/02/19 10/20/19 amlodipine 5 mg PO DAILY 10/04/19 10/20/19 diltiazem HCl 180 mg PO DAILY 10/19/19 10/20/19 furosemide 80 mg PO DAILY 10/19/19 10/20/19 metoclopramide HCl 10 mg PO DAILY 10/19/19 10/20/19 metolazone 5 mg PO TID 10/19/19 10/20/19 Allergies Allergy/AdvReac Type Severity Reaction Status Date / Time No Known Drug Allergies Allergy Unknown Verified 12/07/19 11:30 Review of Systems Review of Systems: Narrative: Gen.: Denies fevers or chills Eyes: Denies eye pain or visual change ENT: Denies congestion Respiratory: Denies shortness of breath or cough CV: Denies chest pain or palpitations reports swelling GI: Reports diffuse abdominal pain nausea vomiting denies burning, urgency, frequency or hematuria Musculoskeletal: Denies back pain or muscle pain Neuro: Denies numbness, tingling, weakness or focal weakness Skin: Denies rash Endocrine: Reports hyperglycemia Except as documented, all other systems reviewed and negative PMFSH Past Medical History Medical History Amputation of toe Anasarca Chronic kidney disease, stage 3 Chronic osteomyelitis Chronic renal failure, stage 3 (moderate) CKD stage 3 due to type 1 diabetes mellitus Diabetes mellitus HTN (hypertension) Hyperlipidemia Hypokalemia Kidney failure Pyuria Social History Social History Social History: The patient stated that she has 2 children and she lives with her who she appoints to be her power of civil attorney. She desires to be a full code. She is not currently working she is now on disability. Patient stated that she is down to 4-5 cigarettes a day. Smoking packs per day: 0.25 Smoking cigarettes per day: 5.0 Years smoked: 30 Smoking pack-years: 7.50 Smoking status: Current every day smoker Tobacco type: cigarettes Additional smoking assessment comments: 2 packs per week Alcohol intake: never Substance use: never Substance use type: does not use Gender identity (if verbalized by the patient): Female Spiritual care concerns: No Agree to blood products: Yes Exam Narrative: Exam Narrative: APPEARANCE: No acute distress, nontoxic, resting in bed EYES: EOMI, Sharon HEENT: Normocephalic, atraumatic, diffuse mild facial swelling with swelling of the bilateral upper and lower eyelids RESPIRATORY: No respiratory distress Clear to auscultation bilaterally with no rhonchi wheezing or rales. CARDIOVASCULAR: Regular rate and rhythm without murmurs rubs or gallops. ABDOMINAL: Soft, nondistended, diffusely tender to palpation, no rebound or guarding MUSCULOSKELETAl: Moves all extremities. No clubbing, cyanosis 3+ edema bilateral lower extremities NEURO: Awake and alert. Following commands, speech normal, no focal deficits SKIN:: Warm, dry. No ra
[2019-12-07 12:32] LABS: Add Urine Microscopic? YES; Appearance Urine Clear (Clear); Bilirubin Urine Negative (Negative); Blood Urine Negative (Negative); Color Urine Yellow (Yellow); Glucose Urine UA 3+ mg/dL (Negative); Ketones Urine 1+ mg/dL (Negative); Leukocyte Esterase Ur Negative LEU/UL (Negative); Mucus Urine Rare /lpf; Nitrate Urine Negative (Negative); Protein Urine 3+ mg/dL (Negative); RBC Urine 0-2 /hpf (0-2); Specific Grav Ur 1.023 (1.001-1.035); Squamous Epithelial Cell Urine Moderate /hpf (Few); Urobilinogen Urine Negative mg/dL (<2.0); WBC Urine 0-3 /hpf
[2019-12-07 12:38] LABS: Glucose Point of Care 493 (65-105)
[2019-12-07] MEDS: ONDANSETRON INJ 4 MG/2 ML VIAL IV PUSH (12:58)
[2019-12-07 13:14] LABS: Basophils Absolute Auto 0.1 K/mm3 (0.0-0.1); Basophils Percent Auto 0.4 % (0.2-1.2); Hematocrit 43.9 % (37.0-47.0); Hemoglobin 14.2 g/dL (12.0-15.0); Immature Granulocyte Absolute 0.06 K/mm3 (0.00-0.031); Immature Granulocyte Percent A 0.4 % (0-0.5); Lymphocytes Absolute Auto 1.73 K/mm3 (0.9-3.2); Lymphocytes Percent Auto 11.4 % (18.3-44.2); Mean Corpuscular HGB Conc 32.3 g/dl (32-36); Mean Corpuscular Hemoglobin 30.1 pg (26-34); Mean Corpuscular Volume 93.2 fl (80-100); Monocytes Absolute Auto 0.4 K/mm3 (0.1-0.6); Monocytes Percent Auto 2.7 % (2.6-8.5); Neutrophils Absolute Auto 12.9 K/mm3 (1.3-6.7); Neutrophils Percent Auto 85.1 % (45.5-73.1); Platelet Count Result 395 k/mm3 (150-375); Red Blood Count 4.71 M/mm3 (4.2-5.4); Red Cell Distribution Width 15.8 % (11.5-14.5); White Blood Count 15.1 K/mm3 (4.5-10.0)
[2019-12-07 13:24] LABS: Prothrombin Time 13.1 Seconds (11.1-14.7)
[2019-12-07 13:25] LABS: Partial Thromboplastin Time 24.9 SECONDS (22.3-36.8)
[2019-12-07 13:28] LABS: Lipase 105 U/L (23-300)
[2019-12-07 13:33] LABS: Alanine Aminotransferase 9 U/L (4-35); Albumin Level 3.7 g/dL (3.5-5.1); Alkaline Phosphatase 121 U/L (38-126); Aspartate Amino Transferase 22 U/L (14-36); Bilirubin,Total 0.6 mg/dL (0.2-1.3); Blood Urea Nitrogen 50 mg/dL (7-17); Carbon Dioxide 31 mmol/L (22-30); Chloride 91 mmol/L (98-107); Estimated CRCL calculation 16 ml/min; Estimated Glomerular Filt Rate 14; Glucose 532 mg/dL (65-105); Sodium 133 mmol/L (137-145)
[2019-12-07 13:35] LABS: NT Pro B Type Natriuretic Pept 27300 PG/ML (5-100)
[2019-12-07] MEDS: INSULIN ASPART (*BKC) 100 UNITS/ML 10 UNITS SUB-Q (14:14)
[2019-12-07] MEDS: hydrALAZINE HCL 20 MG/ML VIAL 10 MG IV PUSH (15:28)
[2019-12-07 15:38] LABS: Glucose Point of Care > 500 (65-105)
[2019-12-07] MEDS: METOCLOPRAMIDE HCL INJ 10 MG/2 ML VIAL 5 MG IV PUSH (16:08)
[2019-12-07] MEDS: ASPIRIN 81 MG CHEWABLE TABLET 324 MG PO (16:09)
[2019-12-07] MEDS: INSULIN HUMAN REGULAR (*BKC) 100 UNITS/ML 6 UNITS IV PUSH (16:19)
--- NOTE | 2019-12-07 16:39 | PM.IMHP ---
H&P: HPI History of Present Illness Chief complaint: Fluid overload/hyperglycemia/nausea/vomiting/chron Narrative: Pamela Bhat is a 44 year old female has been admitted here on 10/20/2019 and was discharged on 10/21/2019 she had nausea and vomiting at that time. She was noted to have gastroparesis. The patient had a temporary dialysis catheter replaced when she was here that last admission and her functional skills tutor is Dr. Forbes. She has diabetes type 1. Her blood sugars were down to 100s when she was discharged from the hospital at that time. The patient came into the emergency room with intractable nausea vomiting for last couple days. She stated she just was not feeling very well she had checked her blood sugars either. She had taken any of her insulin. Blood sugar was noted to be 493 than it was 530 to that was greater 500 patient is not in DKA. She had anion gap of 11. She was given Zofran for the nausea IV insulin regular insulin Reglan and hydralazine in the emergency room. The patient has dialysis on Friday and Friday and has not missed any dialysis. Nephrology has been consulted. The patient is complaining of having this swelling to her face around her she has periorbital edema. She stated she has not started any new medications. Patient did not have dialysis today. The patient has a history of having anasarca. CT of the abdomen pelvis was read as persistent anasarca small pericardial effusions extensive body wall edema and mild ascites. No acute intra abdominal pelvic process face CT was read as diffuse nonspecific facial subcutaneous edema. Dental caries. No drainable abscess suspected. Patient has a chronic osteomyelitis to the left foot the patient had dialysis on Friday. Date of service 12/07/2019 Review of Systems Review of Systems: All systems reviewed & are unremarkable except as noted in HPI and below Constitutional: Constitutional: Reports as per HPI and Reports no additional constitutional complaints Eyes: Eyes: Reports as per HPI and Reports no additional eye complaints ENT: Reports system reviewed and no additional complaints, except as documented and Reports Normal hearing present Cardiovascular: Cardiovascular: Reports no additional cardiovascular complaints Respiratory: Respiratory: Reports no additional respiratory complaints and Reports no additional respiratory complaints Gastrointestinal: Gastrointestinal: Reports as per HPI and Reports no additional gastrointestinal complaints Musculoskeletal: Musculoskeletal: Reports no additional musculoskeletal complaints Integumentary/Breasts: Skin/Breast: Reports system reviewed and no additional complaints, except as docu and Reports as per HPI Neurologic: Reports system reviewed and no additional complaints, except as documented, Reports as per HPI and Reports Normal hearing present Psychiatric: Psychiatric: Reports no additional psychiatric complaints and Reports as per HPI Endocrine: Endocrine: Reports no additional endocrine complaints Hematologic/Lymphatic: Hematologic/Lymphatic: Reports no additional hematologic/lymphatic complaints Allergic/Immunologic: Allergic/Immunologic: Reports no additional allergic/immunologic complaints [facility] Past Medical History Medical History (Updated 12/07/19 @ 16:58 by Ondina Mccullough NP) Acute hyperglycemia Acute kidney injury Acute on chronic kidney failure Amputation of toe Two on the left Anasarca Chronic kidney disease, stage 3 Chronic osteomyelitis Chronic renal failure, stage 3 (moderate) CKD stage 3 due to type 1 diabetes mellitus Diabetes mellitus DKA (diabetic ketoacidoses) Elevated troponin HTN (hypertension) Hyperlipidemia Hypokalemia Kidney failure Nausea and vomiting Pyuria Surgical History Surgical History H/O tubal ligation History of amputation 2 toes on the left History of section, classical X2 Hist
--- NOTE | 2019-12-07 16:40 | PC.NURSE ---
This patient, Pamela Bhat, was admitted to IMU Room 207-01. Patient/family oriented to hospital policies and general routines including ID bracelet, bed and alarms, visiting hours, pain management, procedures, bathroom and other care routines, personal items, smoking policy, room service/diet, and visiting hours. Valuables list has been completed. Information on how to activate the Rapid Response Team has been discussed. Patient/Family are encouraged to report perceived risks to care and to ask questions if they do not understand what they are told or what they should do.
[2019-12-07 17:30] LABS: Glucose Point of Care 315 (65-105)
[2019-12-07] MEDS: FUROSEMIDE INJ 40 MG/4 ML VIAL IV PUSH (17:39)
[2019-12-07] MEDS: metOLazone 5 MG TABLET PO (17:39)
[2019-12-07] MEDS: INSULIN ASPART (*BKC) 100 UNITS/ML SUB-Q (17:39)
[2019-12-07 18:59] LABS: Troponin I 0.048 ng/mL (0.000-0.034)
[2019-12-07 20:35] LABS: Glucose Point of Care 187 (65-105)
[2019-12-07] MEDS: ATORVASTATIN 40 MG TABLET 80 MG PO (21:12)
[2019-12-07] MEDS: INSULIN GLARGINE (*BKC) 100 UNITS/ML 17 UNITS SUB-Q (21:13)
[2019-12-07 21:48] LABS: Troponin I 0.051 ng/mL (0.000-0.034)
[2019-12-08] VITALS (28 sets, daily range): BP systolic 111–204; BP diastolic 62–102; PULSE 74–94; RESP 16–20; TEMP 36–37.1; O2SAT 97–100
--- NOTE | 2019-12-08 | ECHO_ITS ---
Patient Info Name: Pamela Bhat Age: 44 years : 1975 Gender: Female Ht: 65 in Wt: 147 lbs BSA: 1.76 m2 HR: 90 bpm BP: 182 / 83 mmHg Heart Rhythm: Sinus Rhythm Technical Quality: Good Exam Date: 12/08/2019 2:15 PM Exam Location: [facility] Patient Status: Inpatient Admit Date: 12/07/2019 Staff Ordering Physician: Ondina Mccullough NP Roentgenology Teacher: Chaz Shaw RDCS Attending Provider: Harmeet Alvarenga MD Referring Physician: Jamel NAIDU; Exam Type: CA echo doppler color flow Study Info Indications E10.65 - Type 1 diabetes mellitus with hyperglycemia Complete two-dimensional, color flow and Doppler transthoracic echocardiogram is performed. Strain analysis performed. History/Risk Factors Anasarca; DKA, CKD 3 2/2 DMT1, elevated trops, HTN. Summary 1. Left ventricular chamber dimension is normal. 2. Left ventricular systolic function is normal, estimated at 65-70%. 3. There is moderately increased left ventricular wall thickness. 4. Left ventricular septal wall motion is normal. 5. The left ventricular diastolic function is grade I diastolic dysfunction. 6. Global longitudinal strain is abnormal at -15 %. 7. Left atrial chamber dimension is mildly enlarged. 8. There is mild aortic valve sclerosis. 9. There is small pericardial effusion. Left Ventricle Left ventricular chamber dimension is normal. Left ventricular systolic function is normal, estimated at 65-70%. There is moderately increased left ventricular wall thickness. Left ventricular septal wall motion is normal. The left ventricular diastolic function is grade I diastolic dysfunction. Global longitudinal strain is abnormal at -15 %. Right Ventricle Right ventricular chamber dimension is normal. Right ventricular systolic function is normal. Left Atria Left atrial chamber dimension is mildly enlarged. Right Atria Right atrial chamber dimension is normal. Atrial Septum Intact interatrial septum visualized by color flow imaging. Aortic Valve The aortic valve is trileaflet. There is mild aortic valve sclerosis. There is no aortic valve stenosis. There is trace aortic valve regurgitation. Pulmonic Valve The pulmonic valve is normal. There is no pulmonic valve stenosis. There is trace pulmonic regurgitation. Mitral Valve The mitral valve has normal leaflets. There is no mitral valve stenosis. There is trace mitral valve regurgitation. Tricuspid Valve The tricuspid valve leaflets are normal. There is no significant tricuspid valve stenosis. There is trace tricuspid valve regurgitation. Pericardium/Pleural The pericardium appears normal. There is small pericardial effusion. Inferior Vena Cava Dilated inferior vena cava with >50% collapse upon inspiration consistent with elevated right atrial pressure, 15 mmHg. Aorta The aortic root size at the sinus of Valsalva is normal. The prox ascending aorta size is normal. Left Ventricular Outflow Tract Name Value Normal LVOT 2D LVOT Diameter 1.9 cm LVOT Doppler LVOT Peak Gradient 4 mmHg
[2019-12-08 05:18] LABS: Basophils Absolute Auto 0.1 K/mm3 (0.0-0.1); Basophils Percent Auto 0.4 % (0.2-1.2); Eosinophils Absolute Auto 0.1 K/mm3 (0-0.3); Eosinophils Percent Auto 0.5 % (0-4.4); Hematocrit 35.2 % (37.0-47.0); Hemoglobin 11.3 g/dL (12.0-15.0); Immature Granulocyte Absolute 0.06 K/mm3 (0.00-0.031); Immature Granulocyte Percent A 0.4 % (0-0.5); Lymphocytes Absolute Auto 3.09 K/mm3 (0.9-3.2); Lymphocytes Percent Auto 20.3 % (18.3-44.2); Mean Corpuscular HGB Conc 32.1 g/dl (32-36); Mean Corpuscular Hemoglobin 29.9 pg (26-34); Mean Corpuscular Volume 93.1 fl (80-100); Mean Platelet Volume 9.9 fl (7.4-10.4); Monocytes Absolute Auto 0.9 K/mm3 (0.1-0.6); Neutrophils Absolute Auto 11.1 K/mm3 (1.3-6.7); Neutrophils Percent Auto 72.4 % (45.5-73.1); Platelet Count Result 321 k/mm3 (150-375); Red Blood Count 3.78 M/mm3 (4.2-5.4); Red Cell Distribution Width 15.9 % (11.5-14.5); White Blood Count 15.2 K/mm3 (4.5-10.0)
[2019-12-08 05:23] LABS: Hemoglobin A1C 11.5 % (<5.7)
[2019-12-08 05:47] LABS: Blood Urea Nitrogen 57 mg/dL (7-17); Calcium 8.3 mg/dL (8.4-10.2); Carbon Dioxide > 40 mmol/L (22-30); Chloride 92 mmol/L (98-107); Estimated CRCL calculation 15 ml/min; Estimated Glomerular Filt Rate 12; Glucose 87 mg/dL (65-105); Potassium 3.1 mmol/L (3.4-5.0); Sodium 136 mmol/L (137-145)
[2019-12-08] MEDS: ONDANSETRON INJ 4 MG/2 ML VIAL IV PUSH ×2 (08:08→18:06)
[2019-12-08 08:35] LABS: Glucose Point of Care 83 (65-105)
--- NOTE | 2019-12-08 10:45 | WPDGICN ---
Assessment and Plan Assessment and plan (1) Nausea and vomiting: Qualifiers: Vomiting Intractability: non-intractable Vomiting type: unspecified Qualified Code(s): R11.2 - Nausea with vomiting, unspecified Code(s): R11.2 - Nausea with vomiting, unspecified Status: Acute Assessment and Plan: Nausea and vomiting likely related to diabetic gastroparesis. She appears to have an underlying history of GE reflux as well. Now admitted with renal failure and dialysis. Id azotemia certainly also contributes to her underlying nausea vomiting. Plan is to continue dialysis to improve her renal function. Will continue intravenous Reglan as treatment for her nausea and vomiting. Limit to liquid diet at the present time and advanced slowly. (2) End stage renal disease on dialysis: Code(s): N18.6 - End stage renal disease; Z99.2 - Dependence on renal dialysis Status: Acute (3) Reflux esophagitis: Code(s): K21.0 - Gastro-esophageal reflux disease with esophagitis Status: Acute Assessment and Plan: Patient has a long history of heartburn. Reflux esophagitis identified by endoscopy in June. Plan is to continue Protonix in the interim. (4) Diabetes mellitus: Qualifiers: Diabetes mellitus type: type 1 Diabetes mellitus complication status: with hyperglycemia Qualified Code(s): E10.65 - Type 1 diabetes mellitus with hyperglycemia Code(s): E11.9 - Type 2 diabetes mellitus without complications Status: Chronic (5) Chronic osteomyelitis: Code(s): M86.60 - Other chronic osteomyelitis, unspecified site Status: Chronic GI Consult Note Consult date/time: 12/08/19 10:45 HPI: Pamela Bhat is a 44 year old female seen in evaluation at the request of the hospitalist service. Patient is followed by Dr. Racheal Portillo in the outpatient basis. Patient has a history of type 1 diabetes, chronic kidney disease with peripheral vascular disease, she has a history of osteomyelitis on the left foot. She was previously in the hospital with DKA and Jaden. She presents the hospital with ongoing nausea vomiting. Previous evaluation is established patient has diabetic gastroparesis. An endoscopy in June of 2019 revealed that she had significant esophagitis from vomiting. Patient is now on dialysis because of worsening kidney function. She continues to take Protonix at home for heartburn. She denies any obvious signs of bleeding. There is no particular triggers for her nausea and vomiting. Review of Systems Review of Systems: All systems reviewed & are unremarkable except as noted in HPI and below PMFSH Past Medical History Medical History Acute hyperglycemia Acute kidney injury Acute on chronic kidney failure Amputation of toe Two on the left Anasarca Chronic kidney disease, stage 3 Chronic osteomyelitis Chronic renal failure, stage 3 (moderate) CKD stage 3 due to type 1 diabetes mellitus Diabetes mellitus DKA (diabetic ketoacidoses) Elevated troponin HTN (hypertension) Hyperlipidemia Hypokalemia Kidney failure Nausea and vomiting Pyuria Surgical History Surgical History H/O tubal ligation History of amputation 2 toes on the left History of section, classical X2 History of tonsillectomy and adenoidectomy Hx of myringotomy S/P dialysis catheter insertion Right internal jugular S/P lateral meniscal repair S/P PICC central line placement Now removed S/P rotator cuff repair Family History Family History Unknown Adopted Social History Social History Social History: The patient stated that she has 2 children and she lives with her who she appoints to be her power of estate attorney. She desires to be a ful
--- NOTE | 2019-12-08 12:01 | PM.CNNEP ---
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 Anemia of chronic kidney disease Secondary hyperparathyroidism Fluid retention/anasarca Diabetic gastroparesis with nausea and vomiting Plan: Hemodialysis supervised Treatment of gastroparesis Control Speidel Treatment of underlying problems Follow-up for dialysis and id stage renal disease needs History of Present Illness Reason for Consult Consult date: 12/10/19 Reason for consult: end stage renal disease Chief Complaint Chief complaint: Fluid overload/hyperglycemia/nausea/vomiting/chron History of Present Illness Narrative: Seen on hemodialysis 12/08/2019 44-year-old white female with a history of diabetes mellitus type 1 with nephropathy, came in with fluid overload, hyperglycemia, nausea and vomiting secondary to exacerbation of diabetic gastroparesis. Feels miserable. She has swollen up. Recently had to be resumed. On hemodialysis due to swelling, uremic features, persistent nausea and vomiting. She has a good days and bad. As with the last admission it seems as though hyperglycemia is precipitating the gastroparesis. No other untoward event described by the patient. Review of Systems Review of Systems: All systems reviewed & are unremarkable except as noted in HPI and below PMFSH Past Medical History Medical History Acute hyperglycemia Acute kidney injury Acute on chronic kidney failure Amputation of toe Two on the left Anasarca Chronic kidney disease, stage 3 Chronic osteomyelitis Chronic renal failure, stage 3 (moderate) CKD stage 3 due to type 1 diabetes mellitus Diabetes mellitus DKA (diabetic ketoacidoses) Elevated troponin HTN (hypertension) Hyperlipidemia Hypokalemia Kidney failure Nausea and vomiting Pyuria Surgical History Surgical History H/O tubal ligation History of amputation 2 toes on the left History of section, classical X2 History of tonsillectomy and adenoidectomy Hx of myringotomy S/P dialysis catheter insertion Right internal jugular S/P lateral meniscal repair S/P PICC central line placement Now removed S/P rotator cuff repair Family History Family History Unknown Adopted Social History Social History Social History: The patient stated that she has 2 children and she lives with her who she appoints to be her power of [employer] clerk. She desires to be a full code. She is not currently working she is now on disability. Patient stated that she is down to 4-5 cigarettes a day. Smoking packs per day: 0.25 Smoking cigarettes per day: 5.0 Years smoked: 25 Smoking pack-years: 6.25 Smoking status: Current every day smoker Tobacco type: cigarettes Additional smoking assessment comments: 2 packs per week Alcohol intake: never Substance use: never Substance use type: does not use Gender identity (if verbalized by the patient): Female Spiritual care concerns: No Agree to blood products: Yes Meds Home Medications and Allergies Home Medications Medication Instructions Recorded Confirmed Type atorvastatin 80 mg PO HS 06/05/19 12/07/19 History pantoprazole [Protonix] 40 mg PO QAM 06/05/19 12/07/19 History acetaminophen [Mapap 650 mg PO Q4H PRN #60 tablet 06/09/19 12/07/19 Rx (acetaminophen)] Lico Munoz U-100 Insulin 17 unit SUB
--- NOTE | 2019-12-08 13:55 | PM.IMPN ---
Progress Note: A&P Assessment and Plan (1) Anasarca associated with disorder of kidney: Code(s): N04.9 - Nephrotic syndrome with unspecified morphologic changes Status: Acute Assessment and Plan: Patient obviously fluid overloaded with persistent anasarca with small pericardial effusion, extensive body wall edema and mild ascites by CT. She has just completed HD today and toelrated this well. She had 3.4L removed. Continue aggressive HD to control fluid status. Appreciate nephrology input. Continue diuretic therapy. (2) Intractable vomiting: Qualifiers: Nausea presence: with nausea Vomiting type: unspecified Qualified Code(s): R11.2 - Nausea with vomiting, unspecified Code(s): R11.10 - Vomiting, unspecified Status: Acute Assessment and Plan: Patient is seen Dr. Ramirez in the past. Hx of erosive esophagitis. She was on Protonix as a home med. This was continued here. Continue with Zofran. She has gastroparesis so her home Reglan continued. Will change Reglan to 5mg QAC/QHS. (3) Elevated troponin: Code(s): R79.89 - Other specified abnormal findings of blood chemistry Status: Acute Assessment and Plan: Trop elevated but flat. CXR clear but she is obviously fluid overloaded and may be contributing to her elevated Trop (as well as from the ESRD). Trop elevation similar to her hospitalization in September. Patient denies chest pain. Echo pending (4) End stage renal disease on dialysis: Code(s): N18.6 - End stage renal disease; Z99.2 - Dependence on renal dialysis Status: Acute Assessment and Plan: Deny is on HD TThSat from right upper chest HD catheter. She has a maturing fistula in the left upper arm. She sees Dr. Forbes and he has been consulted. Continue HD to control fluid status. (5) Diabetes mellitus: Qualifiers: Diabetes mellitus complication status: with hyperglycemia Diabetes mellitus type: type 1 Qualified Code(s): E10.65 - Type 1 diabetes mellitus with hyperglycemia Code(s): E11.9 - Type 2 diabetes mellitus without complications Status: Chronic Assessment and Plan: A1c 11.5. Glucose reviewed on 12/08/19. Glucose well controlled today. Monitor for lows. Continue Accu-Cheks and cover with sliding scale. Continue hypoglycemia protocol as needed. (6) Diabetic foot ulcer: Qualifiers: Diabetes mellitus type: type 1 Diabetic foot ulcer location: midfoot Laterality: left Non-pressure ulcer stage: limited to breakdown of skin Qualified Code(s): E10.621 - Type 1 diabetes mellitus with foot ulcer; L97.421 - Non-pressure chronic ulcer of left heel and midfoot limited to breakdown of skin Code(s): E11.621 - Type 2 diabetes mellitus with foot ulcer; L97.509 - Non-pressure chronic ulcer of other part of unspecified foot with unspecified severity Status: Chronic Assessment and Plan: No active wound but has underlying chronic osteomyelitis. Continue to monitor. (7) Normocytic anemia: Code(s): D64.9 - Anemia, unspecified Status: Chronic Assessment and Plan: Hgb normal on admission but dropped to 11.3 today. Appears to be at her baseline. Suspect related to her ESRD. Continue to monitor periodically. (8) Hypertension: Qualifiers: Hypertension type: unspecified Qualified Code(s): I10 - Essential (primary) hypertension Code(s): I10 - Essential (primary) hypertension Status: Acute Assessment and Plan: BP reviewed on 12/08/19. BP elevated since admission. Currently she is on Norvasc, metolazone, Lasix and diltiazem. She is on 2 CCBs. Will advance Norvasc and change to metoprolol. (9) Hyperlipidemia: Code(s): E78.5 - Hyperlipidemia, unspecified Status: Chronic Assessment and Plan: LFTs within normal limits. Continue with atorvastatin Subjective Date/time seen:
[2019-12-08] MEDS: FUROSEMIDE INJ 40 MG/4 ML VIAL IV PUSH ×2 (14:01→19:51)
[2019-12-08] MEDS: metOLazone 5 MG TABLET PO ×2 (14:01→17:49)
[2019-12-08] MEDS: AMLODIPINE BESYLATE 5 MG TABLET PO ×2 (14:01→17:49)
[2019-12-08] MEDS: METOCLOPRAMIDE HCL 10 MG TABLET PO (14:01)
[2019-12-08 14:10] LABS: Glucose Point of Care 87 (65-105)
[2019-12-08 17:03] LABS: Glucose Point of Care 115 (65-105)
[2019-12-08] MEDS: METOCLOPRAMIDE HCL 5 MG TABLET PO (19:50)
[2019-12-08 20:20] LABS: Glucose Point of Care 103 (65-105)
[2019-12-08] MEDS: METOPROLOL TARTRATE 25 MG TABLET PO (21:58)
[2019-12-08] MEDS: INSULIN GLARGINE (*BKC) 100 UNITS/ML 8 UNITS SUB-Q (22:26)
[2019-12-09] VITALS (15 sets, daily range): BP systolic 127–166; BP diastolic 61–78; PULSE 65–87; RESP 18–20; TEMP 36.1–36.7; O2SAT 98–100
[2019-12-09 04:51] LABS: Mean Corpuscular HGB Conc 32.4 g/dl (32-36); Mean Corpuscular Hemoglobin 30.6 pg (26-34); Mean Corpuscular Volume 94.4 fl (80-100); Mean Platelet Volume 9.9 fl (7.4-10.4); Platelet Count Result 354 k/mm3 (150-375); Red Blood Count 3.92 M/mm3 (4.2-5.4); Red Cell Distribution Width 15.3 % (11.5-14.5); White Blood Count 14.3 K/mm3 (4.5-10.0)
[2019-12-09 05:18] LABS: Albumin Level 3.1 g/dL (3.5-5.1); Blood Urea Nitrogen 25 mg/dL (7-17); Calcium 8.1 mg/dL (8.4-10.2); Carbon Dioxide 37 mmol/L (22-30); Chloride 93 mmol/L (98-107); Estimated CRCL calculation 21 ml/min; Estimated Glomerular Filt Rate 18; Glucose 62 mg/dL (65-105); Phosphorus 4.1 mg/dL (2.5-4.5); Sodium 133 mmol/L (137-145)
[2019-12-09 05:32] LABS: Glucose Point of Care 64 (65-105)
[2019-12-09] MEDS: ONDANSETRON INJ 4 MG/2 ML VIAL IV PUSH (05:33)
[2019-12-09] MEDS: METOCLOPRAMIDE HCL 5 MG TABLET PO ×4 (05:34→21:07)
--- NOTE | 2019-12-09 05:40 | PC.NURSE ---
Patient refused oral gel for blood sugar of 64. Gave 4 oz of apple juice.
[2019-12-09 06:01] LABS: Glucose Point of Care 88 (65-105)
[2019-12-09] MEDS: METOPROLOL TARTRATE 25 MG TABLET PO ×2 (08:48→21:08)
[2019-12-09] MEDS: PANTOPRAZOLE 40 MG TABLET PO ×2 (08:49→21:07)
[2019-12-09] MEDS: AMLODIPINE BESYLATE 5 MG TABLET 10 MG PO (08:49)
[2019-12-09] MEDS: FUROSEMIDE INJ 40 MG/4 ML VIAL IV PUSH ×2 (08:50→17:40)
[2019-12-09] MEDS: metOLazone 5 MG TABLET PO ×3 (08:55→17:41)
[2019-12-09 09:01] LABS: Glucose Point of Care 76 (65-105)
--- NOTE | 2019-12-09 10:44 | WPDGIPROGNO ---
Progress Note: A&P Additional Plan Patient feels much better this morning. No longer with nausea vomiting nor abdominal pain. She is status post dialysis yesterday. Physical exam reveals her to be alert. Comfortable at rest. HEENT exam she is anicteric. Lungs are clear. Heart without murmur. Abdomen is soft and nontender. No organomegaly appreciated. Impression 1. Nausea vomiting. Likely from gastroparesis. Although may have been secondary to azotemia. Plan is to continue Reglan. Advance diet. Elevate head of bed at night. Continue to monitor renal function per. 2. Diabetes mellitus. 3. Chronic kidney disease on dialysis. Subjective Date/time seen: 12/09/19 10:44 Objective Data Vital Signs Vital Signs: Vital Signs - 24 hr 12/08/19 10:45 12/08/19 11:00 12/08/19 11:15 Temperature Pulse Rate 88 86 85 Respiratory Rate Blood Pressure 193/95 H 188/94 H 181/87 H Pulse Oximetry 12/08/19 12:00 12/08/19 12:15 12/08/19 12:30 Temperature Pulse Rate 89 85 88 Respiratory Rate Blood Pressure 164/83 H 156/78 H 158/85 H Pulse Oximetry 12/08/19 12:45 12/08/19 13:00 12/08/19 13:15 Temperature Pulse Rate 87 84 84 Respiratory Rate Blood Pressure 180/95 H 180/88 H 181/92 H Pulse Oximetry 12/08/19 13:30 12/08/19 13:39 12/08/19 14:00 Temperature 37.1 C 36.6 C Pulse Rate 88 90 88 Respiratory Rate 16 18 Blood Pressure 171/90 H 204/102 H 180/76 H Pulse Oximetry 98 12/08/19 16:00 12/08/19 16:48 12/08/19 18:00 Temperature 36.6 C 36.6 C Pulse Rate 87 85 Respiratory Rate 18 16 Blood Pressure 179/77 H Pulse Oximetry 100 12/08/19 19:53 12/08/19 20:00 12/08/19 21:58 Temperature 36.5 C Pulse Rate 88 89 81 Respiratory Rate 18 Blood Pressure 165/75 H Pulse Oximetry 100 12/08/19 22:00 12/08/19 23:20 12/09/19 00:00 Temperature 36.3 C L Pulse Rate 81 74 69 Respiratory Rate 18 Blood Pressure 111/62 Pulse Oximetry 97 12/09/19 02:00 12/09/19 04:00 12/09/19 05:39 Temperature 36.7 C Pulse Rate 72 74 78 Respiratory Rate 18 Blood Pressure 136/65 Pulse Oximetry 99 12/09/19 08:00 12/09/19 08:45 12/09/19 08:48 Temperature 36.7 C Pulse Rate 87 77 86 Respiratory Rate 18 Blood Pressure 166/64 H Pulse Oximetry 100 Intake/Output Intake/Output: Intake & Output 12/06/19 12/07/19 12/08/19 12/09/19 23:59 23:59 23:59 23:59 Intake Total 240 820 Output Total 500 4350 Balance -260 -8170 Meds/Results Medications: Active Medications Generic Name Dose Route Start Last Admin Trade Name Freq PRN Reason Stop Dose Admin Amlodipine Besylate 10 mg 12/09/19 09:00 12/09/19 08:49 Norvasc PO 10 mg QAM JOHNSON Administration Atorvastatin Calcium 80 mg 12/07/19 21:00 12/08/19 22:14 Lipitor PO Not Given HS JOHNSON Dextrose 12.5 gm 12/07/19 17:10 Dextrose 50% Syringe IV PUSH PRN PRN Hypoglycemia Protocol Diltiazem HCl 180 mg 12/08/19 09:00 12/08/19 14:01 Cardizem Cd PO 180 mg DAILY JOHNSON Administration Furosemide 40 mg 12/07/19 17:00 12/09/19 08:50 Lasix Inj IV PUSH 40 mg BID JOHNSON Administration Glucagon 1 mg 12/07/19 17:10 Glucagon For Inj IM PRN PRN Hypoglycemia Protocol Glucose 15 gm 12/07/19 17:10 Glutose 15 PO PRN PRN Hypoglycemia Protocol Dextrose 1,000 mls @ 100 mls/hr 12/07/19 17:10 Dextrose 5% 1,000 Ml IVPB PRN PRN Hypoglycemia Protocol Insulin Aspart 4 - 8 units 12/07/19 17:00 12/09/19 08:44 Novolog SUB-Q Not Given TIDWM JOHNSON Protocol Insulin Glargine 17 units 12/07/19 21:00 12/08/19 22:14 Lantus SUB-Q Not Given HS JOHNSON Metoclopramide HCl 5 mg 12/08/19 21:00 06/11/20 05:34 Reglan PO 5 mg ACHS JOHNSON Administration Metolazone 5 mg 12/07/19 17:00 12/09/19 08:55 Zaroxolyn PO 5 mg TID JOHNSON Administration Metoprolol Tartrate 25 mg 12/08/19 21
[2019-12-09 12:18] LABS: Glucose Point of Care 210 (65-105)
[2019-12-09] MEDS: INSULIN ASPART (*BKC) 100 UNITS/ML SUB-Q (12:32)
--- NOTE | 2019-12-09 14:35 | PM.IMPN ---
Progress Note: A&P Assessment and Plan (1) Vision changes: Code(s): H53.9 - Unspecified visual disturbance Status: Acute Assessment and Plan: Patient with bilateral blurry vision. Glucose and BP okay. No hx of retinopathy. Last eye exam earlier this year and no mention of retinopathy. Retinal vein occulusion unlikely since usually unilateral. Consider central retinal art/vein occusion, vitrous hem, or retinal detachment but not usually bilateral. Check CT brain to exclude occipital CVA. Brain CT showing no acute findings. Low lying cerebellar tonsils but seen in September. Will discuss with radiology about the need for MRI. (2) Anasarca associated with disorder of kidney: Code(s): N04.9 - Nephrotic syndrome with unspecified morphologic changes Status: Acute Assessment and Plan: Patient obviously fluid overloaded with persistent anasarca with small pericardial effusion, extensive body wall edema and mild ascites by CT. She has just had HD yesterday with 3.4L removed. She tolerated this well. Continue aggressive HD to control fluid status. Appreciate nephrology input. Continue diuretic therapy. (3) Intractable vomiting: Qualifiers: Nausea presence: with nausea Vomiting type: unspecified Qualified Code(s): R11.2 - Nausea with vomiting, unspecified Code(s): R11.10 - Vomiting, unspecified Status: Acute Assessment and Plan: Patient is seen Dr. Ramirez in the past. Hx of erosive esophagitis. She was on Protonix as a home med. This was continued here. Continue with Zofran. She has gastroparesis. Reglan changed to 5mg QAC/QHS. Nausea better today. (4) Elevated troponin: Code(s): R79.89 - Other specified abnormal findings of blood chemistry Status: Acute Assessment and Plan: Trop elevated but flat. CXR clear but she is obviously fluid overloaded and may be contributing to her elevated Trop (troponin elevation also related to ESRD). Trop elevation similar to her hospitalization in September. Patient denies chest pain. Echo showing EF of 65% with grade 1 diastolic dysfunction. (5) End stage renal disease on dialysis: Code(s): N18.6 - End stage renal disease; Z99.2 - Dependence on renal dialysis Status: Acute Assessment and Plan: Deny is on HD TThSat from right upper chest HD catheter. She has a maturing fistula in the left upper arm. She sees Dr. Forbes and he has been consulted. Continue HD to control fluid status. Consider extra dialysis to improve fluid status. (6) Diabetes mellitus: Qualifiers: Diabetes mellitus complication status: with hyperglycemia Diabetes mellitus type: type 1 Qualified Code(s): E10.65 - Type 1 diabetes mellitus with hyperglycemia Code(s): E11.9 - Type 2 diabetes mellitus without complications Status: Chronic Assessment and Plan: A1c 11.5. Glucose reviewed on 12/09/19. Glucose well controlled today. Continue Lantus. Monitor for lows. Continue Accu-Cheks and cover with sliding scale. Continue hypoglycemia protocol as needed. (7) Diabetic foot ulcer: Qualifiers: Diabetes mellitus type: type 1 Diabetic foot ulcer location: midfoot Laterality: left Non-pressure ulcer stage: limited to breakdown of skin Qualified Code(s): E10.621 - Type 1 diabetes mellitus with foot ulcer; L97.421 - Non-pressure chronic ulcer of left heel and midfoot limited to breakdown of skin Code(s): E11.621 - Type 2 diabetes mellitus with foot ulcer; L97.509 - Non-pressure chronic ulcer of other part of unspecified foot with unspecified severity Status: Chronic Assessment and Plan: No active wound but has underlying chronic osteomyelitis. Continue to monitor. (8) Hypertension: Qualifiers: Hypertension type: unspecified Qualified Code(s): I10 - Essential (primary) hypertension Code(s): I10 - Essential (prima
[2019-12-09 16:49] LABS: Glucose Point of Care 114 (65-105)
[2019-12-09 20:45] LABS: Glucose Point of Care 236 (65-105)
[2019-12-09] MEDS: ATORVASTATIN 40 MG TABLET 80 MG PO (21:07)
[2019-12-09] MEDS: INSULIN GLARGINE (*BKC) 100 UNITS/ML 17 UNITS SUB-Q (21:07)
[2019-12-10] VITALS (28 sets, daily range): BP systolic 128–173; BP diastolic 62–85; PULSE 65–85; RESP 16–20; TEMP 36.1–37; O2SAT 97–100
[2019-12-10] MEDS: METOCLOPRAMIDE HCL 5 MG TABLET PO ×2 (06:10→11:47)
[2019-12-10 08:10] LABS: Glucose Point of Care 171 (65-105)
[2019-12-10] MEDS: PANTOPRAZOLE 40 MG TABLET PO (08:40)
[2019-12-10] MEDS: AMLODIPINE BESYLATE 5 MG TABLET 10 MG PO (08:40)
[2019-12-10] MEDS: FUROSEMIDE INJ 40 MG/4 ML VIAL IV PUSH (08:40)
[2019-12-10] MEDS: metOLazone 5 MG TABLET PO ×2 (08:40→12:17)
[2019-12-10] MEDS: METOPROLOL TARTRATE 25 MG TABLET PO (08:40)
--- NOTE | 2019-12-10 09:31 | PM.IMPN ---
Progress Note: A&P Assessment and Plan (1) Vision changes: Code(s): H53.9 - Unspecified visual disturbance Status: Acute Assessment and Plan: Patient with bilateral blurry vision. Glucose and BP okay. Last eye exam earlier this year showing bleeding probably consistent with retinopathy. CT brain showing no acute findings. Low lying cerebellar tonsils but seen in September so felt to be chronic and will hold on MRI. Discussed case with hair rooting machine operator by phone. He felt this was likely related to further bleeding. He states that this is not an acute problem that needs immediate intervention. He recommend patient follow up with his clinic after discharge. (2) Anasarca associated with disorder of kidney: Code(s): N04.9 - Nephrotic syndrome with unspecified morphologic changes Status: Acute Assessment and Plan: Patient obviously fluid overloaded with persistent anasarca with small pericardial effusion, extensive body wall edema and mild ascites by CT. She had HD 12/08/19 with 3.4L removed. She tolerated this well. Continue aggressive HD to control fluid status. Appreciate nephrology input. Continue diuretic therapy. (3) Intractable vomiting: Qualifiers: Nausea presence: with nausea Vomiting type: unspecified Qualified Code(s): R11.2 - Nausea with vomiting, unspecified Code(s): R11.10 - Vomiting, unspecified Status: Acute Assessment and Plan: Patient is seen Dr. Ramirez in the past. Hx of erosive esophagitis. She was on Protonix as a home med. This was continued here. Continue with Zofran prn. She has gastroparesis. Reglan changed to 5mg QAC/QHS. Nausea better and toelrating oralintake. (4) Elevated troponin: Code(s): R79.89 - Other specified abnormal findings of blood chemistry Status: Acute Assessment and Plan: Trop elevated but flat. CXR clear but she is obviously fluid overloaded and may be contributing to her elevated Trop (troponin elevation also related to ESRD). Trop elevation similar to her hospitalization in September. Patient denies chest pain. Echo showing EF of 65% with grade 1 diastolic dysfunction. (5) End stage renal disease on dialysis: Code(s): N18.6 - End stage renal disease; Z99.2 - Dependence on renal dialysis Status: Acute Assessment and Plan: Deny is on HD TThSat from right upper chest HD catheter. She has a maturing fistula in the left upper arm. She sees Dr. Forbes and he has been consulted. Continue HD to control fluid status. Consider extra dialysis to improve fluid status. (6) Diabetes mellitus: Qualifiers: Diabetes mellitus complication status: with hyperglycemia Diabetes mellitus type: type 1 Qualified Code(s): E10.65 - Type 1 diabetes mellitus with hyperglycemia Code(s): E11.9 - Type 2 diabetes mellitus without complications Status: Chronic Assessment and Plan: A1c 11.5. Glucose reviewed on 12/10/19. Glucose elevated at times probably related to better oral intake. Continue Lantus. Monitor for lows. Continue Accu-Cheks and cover with sliding scale. Continue hypoglycemia protocol as needed. (7) Diabetic foot ulcer: Qualifiers: Diabetes mellitus type: type 1 Diabetic foot ulcer location: midfoot Laterality: left Non-pressure ulcer stage: limited to breakdown of skin Qualified Code(s): E10.621 - Type 1 diabetes mellitus with foot ulcer; L97.421 - Non-pressure chronic ulcer of left heel and midfoot limited to breakdown of skin Code(s): E11.621 - Type 2 diabetes mellitus with foot ulcer; L97.509 - Non-pressure chronic ulcer of other part of unspecified foot with unspecified severity Status: Chronic Assessment and Plan: No active wound but has underlying chronic osteomyelitis. Continue to monitor. (8) Hypertension: Qualifiers: Hypertension type: unspecified Qualified Code(s): I10
[2019-12-10 12:21] LABS: Glucose Point of Care 288 (65-105)
[2019-12-10] MEDS: INSULIN ASPART (*BKC) 100 UNITS/ML SUB-Q (12:22)
--- NOTE | 2019-12-10 12:23 | WPDGIPROGNO ---
Progress Note: A&P Additional Plan Patient feels much improved today. Tolerating diet without difficulty. She reports nausea has resolved. No longer vomiting. Physical exam reveals her to be alert. Vital signs are stable. Lungs are clear to auscultation. Heart without murmur. Abdomen bowel sounds are present soft nontender with no organomegaly. Impression 1. Resolved nausea vomiting. Likely gastroparesis related to diabetes. But also improved azotemia after dialysis. Plan to continue Reglan. Attempt to keep diabetes under control. 2. History of esophagitis. Likely has underlying reflux. Esophagitis previously by endoscopy also related to her vomiting. 3. End-stage renal disease on dialysis. Subjective Date/time seen: 12/10/19 12:23 Objective Data Vital Signs Vital Signs: Vital Signs - 24 hr 12/09/19 16:00 12/09/19 18:00 12/09/19 20:00 Temperature 36.6 C Pulse Rate 77 77 Respiratory Rate 18 Blood Pressure 133/66 127/62 Pulse Oximetry 100 12/09/19 20:03 12/09/19 21:08 12/09/19 22:00 Temperature 36.5 C Pulse Rate 76 80 81 Respiratory Rate 20 Blood Pressure 148/61 H Pulse Oximetry 98 12/09/19 23:42 12/10/19 00:00 12/10/19 02:00 Temperature 36.1 C L Pulse Rate 65 77 68 Respiratory Rate 18 Blood Pressure 138/66 Pulse Oximetry 100 12/10/19 04:00 12/10/19 04:27 12/10/19 06:00 Temperature 36.1 C L Pulse Rate 77 65 73 Respiratory Rate 20 Blood Pressure 128/66 Pulse Oximetry 97 12/10/19 08:00 12/10/19 08:40 12/10/19 10:00 Temperature 36.1 C L Pulse Rate 73 85 77 Respiratory Rate 16 Blood Pressure 173/85 H Pulse Oximetry 100 12/10/19 11:55 Temperature 36.4 C Pulse Rate 75 Respiratory Rate 18 Blood Pressure 155/76 H Pulse Oximetry 100 Intake/Output Intake/Output: Intake & Output 12/07/19 12/08/19 12/09/19 12/10/19 23:59 23:59 23:59 23:59 Intake Total 240 820 800 240 Output Total 500 4350 800 200 Balance -260 -3530 0 40 Meds/Results Medications: Active Medications Generic Name Dose Route Start Last Admin Trade Name Freq PRN Reason Stop Dose Admin Amlodipine Besylate 10 mg 12/09/19 09:00 12/10/19 08:40 Norvasc PO 10 mg QAM JOHNSON Administration Atorvastatin Calcium 80 mg 12/07/19 21:00 12/09/19 21:07 Lipitor PO 80 mg HS JOHNSON Administration Dextrose 12.5 gm 12/07/19 17:10 Dextrose 50% Syringe IV PUSH PRN PRN Hypoglycemia Protocol Diltiazem HCl 180 mg 12/08/19 09:00 12/08/19 14:01 Cardizem Cd PO 180 mg DAILY JOHNSON Administration Furosemide 40 mg 12/07/19 17:00 12/10/19 08:40 Lasix Inj IV PUSH 40 mg BID JOHNSON Administration Glucagon 1 mg 12/07/19 17:10 Glucagon For Inj IM PRN PRN Hypoglycemia Protocol Glucose 15 gm 12/07/19 17:10 Glutose 15 PO PRN PRN Hypoglycemia Protocol Dextrose 1,000 mls @ 100 mls/hr 12/07/19 17:10 Dextrose 5% 1,000 Ml IVPB PRN PRN Hypoglycemia Protocol Insulin Aspart 4 - 8 units 12/07/19 17:00 12/10/19 12:22 Novolog SUB-Q 5 units TIDWM JOHNSON Administration Protocol Insulin Glargine 17 units 12/07/19 21:00 12/09/19 21:07 Lantus SUB-Q 17 units HS JOHNSON Administration Metoclopramide HCl 5 mg 12/08/19 21:00 12/10/19 11:47 Reglan PO 5 mg ACHS JOHNSON Administration Metolazone 5 mg 12/07/19 17:00 12/10/19 12:17 Zaroxolyn PO 5 mg TID JOHNSON Administration Metoprolol Tartrate 25 mg 12/08/19 21:00 12/10/19 08:40 Lopressor PO 25 mg Q12HR JOHNSON Administration Ondansetron HCl 4 mg 12/07/19 15:31 12/09/19 05:33 Zofran Inj IV PUSH 4 mg Q4H PRN Administration Nausea Pantoprazole Sodium 40 mg 12/08/19 21:00 12/10/19 08:40 Protonix PO 40 mg Q12HR JOHNSON Administration Radiology Results: ITS Impressions Chest X-Ray 12/07/19 11:49 Impression: 1: No acute cardiopulmonary disease. Face CT 12/07/19
--- NOTE | 2019-12-10 13:29 | PM.DS ---
DS: Admitting Diagnosis Admitting Diagnosis Admitting Diagnosis: Nephrotic syndrome with unspecified morphologic changes DS: Discharge Diagnosis Discharge Diagnosis (1) Vision changes: Code(s): H53.9 - Unspecified visual disturbance Status: Acute Assessment and Plan: Patient with bilateral blurry vision. Glucose and BP okay. Last eye exam earlier this year showing bleeding probably consistent with retinopathy. CT brain showing no acute findings. Low lying cerebellar tonsils but seen in September so felt to be chronic and not needed to have MRI in the acute setting. Discussed case with spinning frame fixer by phone. He felt the vision changes was likely related to further bleeding. He states that this is not an acute problem that needs immediate intervention. He recommend patient follow up with his clinic after discharge. (2) Anasarca associated with disorder of kidney: Code(s): N04.9 - Nephrotic syndrome with unspecified morphologic changes Status: Acute Assessment and Plan: Patient obviously fluid overloaded with persistent anasarca with small pericardial effusion, extensive body wall edema and mild ascites by CT. She had HD 12/08/19 with 3.4L removed. She tolerated this well. Continue aggressive HD to control fluid status. Appreciate nephrology input. Continue diuretic therapy. (3) Intractable vomiting: Qualifiers: Nausea presence: with nausea Vomiting type: unspecified Qualified Code(s): R11.2 - Nausea with vomiting, unspecified Code(s): R11.10 - Vomiting, unspecified Status: Acute Assessment and Plan: Patient has seen Dr. Ramirez in the past. Hx of erosive esophagitis. She was on Protonix as a home med. This was continued here. Continue with Zofran prn. She has gastroparesis. Reglan changed to 5mg QAC/QHS. Nausea better and tolerating oral intake. (4) Elevated troponin: Code(s): R79.89 - Other specified abnormal findings of blood chemistry Status: Acute Assessment and Plan: Trop elevated but flat. CXR clear but she is obviously fluid overloaded and may be contributing to her elevated Trop (troponin elevation also related to ESRD). Trop elevation similar to her hospitalization in September. Patient denies chest pain. Echo showing EF of 65% with grade 1 diastolic dysfunction. (5) End stage renal disease on dialysis: Code(s): N18.6 - End stage renal disease; Z99.2 - Dependence on renal dialysis Status: Acute Assessment and Plan: Patietn is on HD TThSat from right upper chest HD catheter. She has a maturing fistula in the left upper arm. She sees Dr. Forbes and he has been consulted. Continue HD to control fluid status. Plan for extra dialysis prior to discharge. Discussed with Dr Forbes (6) Diabetes mellitus: Qualifiers: Diabetes mellitus complication status: with hyperglycemia Diabetes mellitus type: type 1 Qualified Code(s): E10.65 - Type 1 diabetes mellitus with hyperglycemia Code(s): E11.9 - Type 2 diabetes mellitus without complications Status: Chronic Assessment and Plan: A1c 11.5. Glucose monitored closely. Glucose elevated at times probably related to better oral intake. We contiued Lantus. We continued Accu-Cheks and covered with sliding scale. Hypoglycemia protocol as needed. (7) Diabetic foot ulcer: Qualifiers: Diabetes mellitus type: type 1 Diabetic foot ulcer location: midfoot Laterality: left Non-pressure ulcer stage: limited to breakdown of skin Qualified Code(s): E10.621 - Type 1 diabetes mellitus with foot ulcer; L97.421 - Non-pressure chronic ulcer of left heel and midfoot limited to breakdown of skin Code(s): E11.621 - Type 2 diabetes mellitus with foot ulcer; L97.509 - Non-pressure chronic ulcer of other part of unspecified foot with unspecified severity Status: Chronic Assessment and Plan: No active w
--- NOTE | 2019-12-10 14:02 | PM.PNNEP ---
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 Alvarenga For discharge after dialysis today Patient return to regular dialysis schedule from next week, she had arranged on an outpatient basis to omit dialysis tomorrow and get it done today instead. Will follow on an outpatient basis Subjective Date/time seen: 12/10/19 14:02 Chief complaint follow-up of ESRD History of presenting illness doing okay, no nausea vomiting. Due for dialysis today and then plan is for discharge. Exam Narrative: Exam Narrative: Patient looks more comfortable today, less facial swelling, JVD negative, regular rate rhythm, lungs clear, soft abdomen, edema negative Objective Data Vital Signs Vital Signs: Vital Signs - 24 hr 12/09/19 16:00 12/09/19 18:00 12/09/19 20:00 Temperature 36.6 C Pulse Rate 77 77 Respiratory Rate 18 Blood Pressure 133/66 127/62 Pulse Oximetry 100 12/09/19 20:03 12/09/19 21:08 12/09/19 22:00 Temperature 36.5 C Pulse Rate 76 80 81 Respiratory Rate 20 Blood Pressure 148/61 H Pulse Oximetry 98 12/09/19 23:42 12/10/19 00:00 12/10/19 02:00 Temperature 36.1 C L Pulse Rate 65 77 68 Respiratory Rate 18 Blood Pressure 138/66 Pulse Oximetry 100 12/10/19 04:00 12/10/19 04:27 12/10/19 06:00 Temperature 36.1 C L Pulse Rate 77 65 73 Respiratory Rate 20 Blood Pressure 128/66 Pulse Oximetry 97 12/10/19 08:00 12/10/19 08:40 12/10/19 10:00 Temperature 36.1 C L Pulse Rate 73 85 77 Respiratory Rate 16 Blood Pressure 173/85 H Pulse Oximetry 100 12/10/19 11:55 12/10/19 12:00 Temperature 36.4 C Pulse Rate 75 74 Respiratory Rate 18 Blood Pressure 155/76 H Pulse Oximetry 100 Intake/Output Intake/Output: Intake & Output 06/09/20 06/10/20 06/11/20 06/12/20 23:59 23:59 23:59 23:59 Intake Total 240 820 800 240 Output Total 500 4350 800 200 Balance -260 -3530 0 40 Meds/Results Medications: Active Medications Generic Name Dose Route Start Last Admin Trade Name Freq PRN Reason Stop Dose Admin Amlodipine Besylate 10 mg 12/09/19 09:00 12/10/19 08:40 Norvasc PO 10 mg QAM JOHNSON Administration Atorvastatin Calcium 80 mg 12/07/19 21:00 12/09/19 21:07 Lipitor PO 80 mg HS JOHNSON Administration Dextrose 12.5 gm 12/07/19 17:10 Dextrose 50% Syringe IV PUSH PRN PRN Hypoglycemia Protocol Diltiazem HCl 180 mg 12/08/19 09:00 12/08/19 14:01 Cardizem Cd PO 180 mg DAILY JOHNSON Administration Furosemide 40 mg 12/07/19 17:00 12/10/19 08:40 Lasix Inj IV PUSH 40 mg BID JOHNSON Administration Glucagon 1 mg 12/07/19 17:10 Glucagon For Inj IM PRN PRN Hypoglycemia Protocol Glucose 15 gm 12/07/19 17:10 Glutose 15 PO PRN PRN Hypoglycemia Protocol Dextrose 1,000 mls @ 100 mls/hr 12/07/19 17:10 Dextrose 5% 1,000 Ml IVPB PRN PRN Hypoglycemia Protocol Insulin Aspart 4 - 8 units 12/07/19 17:00 12/10/19 12:22 Novolog SUB-Q 5 units TIDWM JOHNSON Administration Protocol Insulin Glargine 17 units 12/07/19 21:00 12/09/19 21:07 Lantus SUB-Q 17 units HS JOHNSON Administration Metoclopramide HCl 5 mg 12/08/19 21:00 12/10/19 11:47 Reglan PO 5 mg ACHS JOHNSON Administration Metolazone 5 mg 12/07/19 17:00 12/10/19 12:17 Zaroxolyn PO 5 mg TID JOHNSON Administration Metoprolol Tartrate 25 mg 12/08/19 21:00 12/10/19 08:40 Lopressor PO 25 mg Q12HR JOHNSON Administration Ondansetro
[2019-12-10] MEDS: SODIUM CHLORIDE 0.9% IV 1,000 ML 333 ML (15:20)
[2019-12-10 16:32] LABS: Glucose Point of Care 184 (65-105)
[2019-12-10] MEDS: HEPARIN SODIUM 1,000 UNITS/ML VIAL 5000 UNITS (17:49)
[2019-12-10 18:15] LABS: Hepatitis B Surface Antigen Negative (Negative)
== END 2019-12-10 19:35 | disposition home or self-care (01) ==
LOC: ANHED 15:31 → ANHIMU 16:06
PROVIDERS: Internal Medicine Nephrology; Nurse Practitioner; Admitting Provider Family Medicine; Emergency Provider Emergency Medicine; PCP Internal Medicine; Visit Provider Internal Medicine
DX: E10.22 Type 1 diabetes mellitus with diabetic chronic kidney disease (principal); I12.0 Hypertensive chronic kidney disease with stage 5 chronic kidney disease or end stage renal disease; N18.6 End stage renal disease; Z99.2 Dependence on renal dialysis; R60.1 Generalized edema; E10.43 Type 1 diabetes mellitus with diabetic autonomic (poly)neuropathy; K31.84 Gastroparesis; E10.65 Type 1 diabetes mellitus with hyperglycemia; E10.621 Type 1 diabetes mellitus with foot ulcer; L97.421 Non-pressure chronic ulcer of left heel and midfoot limited to breakdown of skin; E10.51 Type 1 diabetes mellitus with diabetic peripheral angiopathy without gangrene; E10.69 Type 1 diabetes mellitus with other specified complication; M86.672 Other chronic osteomyelitis, left ankle and foot; D63.1 Anemia in chronic kidney disease; N25.81 Secondary hyperparathyroidism of renal origin; K21.0 Gastro-esophageal reflux disease with esophagitis; H53.9 Unspecified visual disturbance; F17.210 Nicotine dependence, cigarettes, uncomplicated; R79.89 Other specified abnormal findings of blood chemistry; E78.5 Hyperlipidemia, unspecified; Z79.4 Long term (current) use of insulin; Z79.899 Other long term (current) drug therapy; Z86.73 Personal history of transient ischemic attack (TIA), and cerebral infarction without residual deficits
CPT/HCPCS: 36415; 70450; 70486; 71045; 74176; 80048; 80053; 80069; 81001; 81025; 83036; 83605; 83690; 83735; 83880; 84484; 85025; 85027; 85610; 85730; 87040; 87340; 93005; 93306; 96374; 96375; 96376; 99291; A9270; G0257; G0378; J0360; J1644; J1815; J1940; J2405; J2765; J7030

== ENCOUNTER 2019-12-20 12:09 | Inpatient (IN) | payer BC, MEDICAID, SELFPAY ==
[2019-12-20] VITALS (7 sets, daily range): BP systolic 127–198; BP diastolic 64–91; PULSE 82–108; RESP 12–18; TEMP 36.4–37.1; O2SAT 99–100; BMI 25.7
--- NOTE | ~2019-12-20 | MR_ITS ---
EXAMINATION: MR brain/brain stem wo con EXAM DATE: 12/21/2019 14:00 INDICATION: Bilateral papilledema. Patient on dialysis. TECHNIQUE: Magnetic resonance imaging (MRI) of the brain/brain stem obtained without contrast. Elly al T1, axial diffusion, gradient echo (T2*), T1, T2, FLAIR sequences obtained. There is no prior st udy for comparison. Correlation was made with head CT from 12/09/2019. FINDINGS: On the sagittal T1-weighted sequence cerebellar tonsils extend about 13 mm below the forame n magnum, diagnostic of Chiari I malformation. This may be associated with papilledema. Ventricles ar e normal in size, no obstructive hydrocephalus. There are several periventricular T2/FLAIR hyperintensities bilaterally, a non-specific finding with differential diagnosis including premature chronic small vessel ischemic disease (especially if the p atient has cardiovascular risk factors), migraine headaches, demyelinating disease such as multiple s clerosis or acute disseminated encephalomyelitis (ADEM), vasculopathy, lyme's disease or reactive ast rocytosis (gliosis) secondary to nonspecific etiology. There are no areas of restricted diffusion to suggest acute infarction. There is no acute hemorrhage seen on the T2*, a hemosiderin sensitive sequence. No intraparenchymal brain mass. The ventricles a re normal in size. There are no extra-axial collections. Flow voids are seen in the cerebral arteri es on the T2-weighted sequences consistent with their expected patency. The orbits are unremarkable. Soft tissue is unremarkable. IMPRESSION: 1. Chiari 1 malformation, finding may be associated with papilledema. 2. Several nonspecific periventricular signal abnormalities. Reviewed, dictated and finalized at location B.
--- NOTE | ~2019-12-20 | MR_ITS ---
EXAMINATION: MR venography brain EXAM DATE: 12/22/2019 15:47 INDICATION: Papilledema, visual change. Chiari I malformation. TECHNIQUE: MR venogram of the intracranial dural sinuses was performed with 2-D [id number] imagi ng without contrast. Correlation is made to MRI brain from yesterday. FINDINGS: There is robust flow related signal within the sagittal, straight, transverse, sigmoid sinu ses and the internal cerebral veins. No evidence of intracranial venous thrombosis. IMPRESSION: Normal MR venogram. Reviewed, dictated and finalized at location A. IMPRESSION: Normal MR venogram.
--- NOTE | ~2019-12-20 | CT_ITS ---
EXAMINATION: CT orbit BI w con EXAM DATE: 12/20/2019 15:37 INDICATION: Decreasing vision. Dialysis patient. Papilledema on funduscopic examination. TECHNIQUE: Spiral CT orbit BI w con was performed following intravenous injection of 75 mL Omnipaque 350. Axial, coronal and sagittal images were reviewed. The dose-length product (DLP) for this exami nation was 148.49 mGy-cm. The exposure was tailored according to patient size (auto mA exposure cont rol), and iterative reconstruction (ASIR) was used as additional dose reduction technique. Comparison is made to prior examination from 12/07/2019. FINDINGS: No evidence of dilated superior orbital vein. Pituitary gland, sella turcica and supra sell ar region are unremarkable. The orbits, globes and extraocular muscles are unremarkable. Retrobulbar fat is clear. There is mild proptosis bilaterally. Mild bilateral maxillary sinus mucoperiosteal t hickening. Ethmoid, sphenoid, frontal sinuses well aerated. Mild bilateral carotid siphon arterial s clerosis. There are no areas of abnormal enhancement on the post contrast images. IMPRESSION: Mild proptosis. Otherwise unremarkable exam. Reviewed, dictated and finalized at location B.
--- NOTE | 2019-12-20 13:28 | ED.EYEPROB ---
HPI - Eye Problem General Chief complaint: Eye Problems Stated complaint: [employer] [employer] NERVE EDEMA Time Seen by Provider: 12/20/19 13:17 History of Present Illness HPI Narrative: Patient presents from the retinal doctor's office for papilledema. She is a dialysis patient Friday, and has had decreased and blurry vision over the last 2-week. She was here on the and had a CAT scan of her brain. I talked to Dr. Landaverde, and he recommends a CAT scan of the orbits with contrast. She has no other complaints. She has no pain, she has not been sick. chief complaint: vision change Onset (ago): week(s) Onset description: gradual Duration: constant Location: both eyes Related Data Home Medications Medication Instructions Recorded Confirmed atorvastatin 80 mg PO HS 06/05/19 12/07/19 Basaglar KwikPen U-100 Insulin 17 unit SUBCUT HS 10/02/19 12/07/19 metolazone 5 mg PO TID 10/19/19 12/07/19 Allergies Allergy/AdvReac Type Severity Reaction Status Date / Time No Known Drug Allergies Allergy Unknown Verified 12/20/19 12:23 Review of Systems Review of Systems: Narrative: CONSTITUTIONAL: Denies fever, chills, or sweats. EYES: She has visual changes, but no redness, or discharge. ENT: Denies rhinorrhea, congestion, sore throat, or otalgia. CARDIOVASCULAR: Denies chest pain, palpitations, or edema. RESPIRATORY: Denies cough or dyspnea. GASTROINTESTINAL: Denies abdominal pain, nausea, vomiting, or diarrhea. GENITOURINARY: Denies dysuria or hematuria. SKIN: Denies rash or itching. MUSCULOSKELETAL: Denies back pain, joint pain, or myalgia. NEUROLOGIC: Denies headache, numbness, or weakness. PSYCHIATRIC: Denies anxiety or depression. [facility] Past Medical History Medical History Acute hyperglycemia Acute kidney injury Acute on chronic kidney failure Amputation of toe Two on the left Anasarca Chronic kidney disease, stage 3 Chronic osteomyelitis Chronic renal failure, stage 3 (moderate) CKD stage 3 due to type 1 diabetes mellitus Diabetes mellitus DKA (diabetic ketoacidoses) Elevated troponin HTN (hypertension) Hyperlipidemia Hypokalemia Kidney failure Nausea and vomiting Pyuria Surgical History Surgical History H/O tubal ligation History of amputation 2 toes on the left History of section, classical X2 History of tonsillectomy and adenoidectomy Hx of myringotomy S/P dialysis catheter insertion Right internal jugular S/P lateral meniscal repair S/P PICC central line placement Now removed S/P rotator cuff repair Social History Social History Social History: The patient stated that she has 2 children and she lives with her who she appoints to be her power of contracts attorney. She desires to be a full code. She is not currently working she is now on disability. Patient stated that she is down to 4-5 cigarettes a day. Smoking packs per day: 0.25 Smoking cigarettes per day: 5.0 Years smoked: 25 Smoking pack-years: 6.25 Smoking status: Current every day smoker Tobacco type: cigarettes Additional smoking assessment comments: 2 packs per week Alcohol intake: never Substance use: never Substance use type: does not use Gender identity (if verbalized by the patient): Female Spiritual care concerns: No Agree to blood products: Yes Exam Narrative: Exam Narrative: GENERAL: Well-appearing, well-nourished, and in no acute distress. HEAD: Normocephalic, atraumatic. EYES: PERRLA and EOMI. ENT: Nares clear, no rhinorrhea or epistaxis. Mucous membranes moist. NECK: Supple. CHEST: Clear to auscultation. No respiratory distress. HEART: Regular rate and rhythm. No murmur heard. Normal peripheral pulses. ABDOMEN: Soft, nontender, nondistended, normal active bowel sounds. EXTREMITIES: Normal range of motion. Mild p
[2019-12-20 14:30] LABS: Basophils Absolute Auto 0.1 K/mm3 (0.0-0.1); Basophils Percent Auto 0.4 % (0.2-1.2); Eosinophils Absolute Auto 0.1 K/mm3 (0-0.3); Eosinophils Percent Auto 1.1 % (0-4.4); Hematocrit 37.7 % (37.0-47.0); Hemoglobin 12.2 g/dL (12.0-15.0); Immature Granulocyte Absolute 0.05 K/mm3 (0.00-0.031); Immature Granulocyte Percent A 0.4 % (0-0.5); Lymphocytes Absolute Auto 1.99 K/mm3 (0.9-3.2); Lymphocytes Percent Auto 16.8 % (18.3-44.2); Mean Corpuscular HGB Conc 32.4 g/dl (32-36); Mean Corpuscular Hemoglobin 30.6 pg (26-34); Mean Corpuscular Volume 94.5 fl (80-100); Mean Platelet Volume 9.8 fl (7.4-10.4); Monocytes Absolute Auto 0.6 K/mm3 (0.1-0.6); Monocytes Percent Auto 4.9 % (2.6-8.5); Neutrophils Absolute Auto 9.1 K/mm3 (1.3-6.7); Neutrophils Percent Auto 76.4 % (45.5-73.1); Platelet Count Result 312 k/mm3 (150-375); Red Blood Count 3.99 M/mm3 (4.2-5.4); Red Cell Distribution Width 14.1 % (11.5-14.5); White Blood Count 11.9 K/mm3 (4.5-10.0)
[2019-12-20 14:46] LABS: Alanine Aminotransferase 13 U/L (4-35); Albumin Level 3.6 g/dL (3.5-5.1); Alkaline Phosphatase 106 U/L (38-126); Aspartate Amino Transferase 21 U/L (14-36); Bilirubin,Total 0.2 mg/dL (0.2-1.3); Blood Urea Nitrogen 33 mg/dL (7-17); Calcium 8.7 mg/dL (8.4-10.2); Carbon Dioxide 34 mmol/L (22-30); Chloride 92 mmol/L (98-107); Estimated CRCL calculation 19 ml/min; Estimated Glomerular Filt Rate 17; Glucose 382 mg/dL (65-105); Potassium 4.4 mmol/L (3.4-5.0); Sodium 130 mmol/L (137-145)
[2019-12-20] MEDS: INSULIN HUMAN REGULAR (*BKC) 100 UNITS/ML 7 UNITS SUB-Q (15:41)
[2019-12-20 16:16] LABS: Glucose Point of Care 339 (65-105)
[2019-12-20 16:25] LABS: Glucose Point of Care 367 (65-105)
[2019-12-20] MEDS: INSULIN HUMAN REGULAR (*BKC) 100 UNITS/ML 10 UNITS SUB-Q (16:43)
[2019-12-20 16:49] LABS: Glucose Point of Care 335 (65-105)
[2019-12-20 18:21] LABS: Glucose Point of Care 236 (65-105)
--- NOTE | 2019-12-20 19:40 | ADMGEN ---
This patient, Pamela Bhat, was admitted to Medical Room 340-01. Patient/family oriented to hospital policies and general routines including ID bracelet, bed and alarms, visiting hours, pain management, procedures, bathroom and other care routines, personal items, smoking policy, room service/diet, and visiting hours. Valuables list has been completed. Information on how to activate the Rapid Response Team has been discussed. Patient/Family are encouraged to report perceived risks to care and to ask questions if they do not understand what they are told or what they should do.
[2019-12-20 21:25] LABS: Glucose Point of Care 132 (65-105)
--- NOTE | 2019-12-20 22:19 | PM.IMHP ---
H&P: HPI History of Present Illness Chief complaint: ESRD on dialysis/bilateral papiloedema Narrative: Pamela Bhat is a 44 year old female who was just discharged on 12/10/2019. The patient has some blurred vision when she was admitted here on her last admission she was admitted here on 12/07/2019.She is admitted for fluid overload. The patient had okay glucose levels and it was felt that the patient probably had consistent retinopathy because she had an eye exam earlier this year that showed some bleeding that was possibly consistent with retinopathy. Her CT of the brain showed nothing acute and the case was discussed with the pay per click strategist by phone. He felt that the visual changes was likely related to the further bleeding. There was no acute problem that needed immediate intervention. He recommend patient follow-up with his clinic after discharge. Therefore the patient did follow-up with her retinal specialist. The patient had papilledema and recommended a CT of the orbits. CT of the orbit with contrast was read as mild proptosis otherwise unremarkable. Neurologist was notified MRI tomorrow and possible spinal tap for pressure in her eyes if MRI is negative.. Of insulin in the emergency room. White count was noted to be 11.9. Sodium 130. Creatinine 3.0. GFR 17. Glucose 382. Date of service 12/20/2019 Review of Systems Review of Systems: Narrative: Patient continues to have blurred vision but no fever chills no cough. All systems reviewed & are unremarkable except as noted in HPI and below Constitutional: Constitutional: Reports as per HPI and Reports no additional constitutional complaints Eyes: Eyes: Reports as per HPI and Reports no additional eye complaints ENT: Reports system reviewed and no additional complaints, except as documented and Reports Normal hearing present Cardiovascular: Cardiovascular: Reports no additional cardiovascular complaints Respiratory: Respiratory: Reports no additional respiratory complaints and Reports no additional respiratory complaints Gastrointestinal: Gastrointestinal: Reports as per HPI and Reports no additional gastrointestinal complaints Musculoskeletal: Musculoskeletal: Reports no additional musculoskeletal complaints Integumentary/Breasts: Skin/Breast: Reports system reviewed and no additional complaints, except as docu and Reports as per HPI Neurologic: Reports system reviewed and no additional complaints, except as documented, Reports as per HPI and Reports Normal hearing present Psychiatric: Psychiatric: Reports no additional psychiatric complaints and Reports as per HPI Endocrine: Endocrine: Reports no additional endocrine complaints Hematologic/Lymphatic: Hematologic/Lymphatic: Reports no additional hematologic/lymphatic complaints Allergic/Immunologic: Allergic/Immunologic: Reports no additional allergic/immunologic complaints [facility] Past Medical History Medical History (Updated 12/20/19 @ 22:36 by Ondina Mccullough NP) Acute hyperglycemia Acute kidney injury Acute on chronic kidney failure Amputation of toe Two on the left Anasarca AV fistula Left forearm Chronic kidney disease, stage 3 Chronic osteomyelitis Chronic renal failure, stage 3 (moderate) CKD stage 3 due to type 1 diabetes mellitus Diabetes mellitus DKA (diabetic ketoacidoses) Elevated troponin HTN (hypertension) Hyperlipidemia Hypokalemia Kidney failure Nausea and vomiting Papilledema Pyuria Surgical History Surgical History H/O tubal ligation History of amputation 2 toes on the left History of section, classical X2 History of tonsillectomy and adenoidectomy Hx of myringotomy S/P dialysis catheter insertion Right internal jugular S/P lateral meniscal repair S/P PICC central line placement Now removed S/P rotator cuff repair Family History Family History
[2019-12-20] MEDS: METOCLOPRAMIDE HCL 5 MG TABLET PO (23:40)
[2019-12-20] MEDS: ATORVASTATIN 40 MG TABLET 80 MG PO (23:40)
[2019-12-20] MEDS: PANTOPRAZOLE 40 MG TABLET PO (23:40)
[2019-12-20] MEDS: METOPROLOL TARTRATE 25 MG TABLET PO (23:41)
[2019-12-21] VITALS (24 sets, daily range): BP systolic 125–175; BP diastolic 60–79; PULSE 68–82; RESP 14–20; TEMP 36.3–37; O2SAT 99–100
[2019-12-21] MEDS: METOCLOPRAMIDE HCL 5 MG TABLET PO ×3 (05:57→20:09)
[2019-12-21 06:04] LABS: Basophils Absolute Auto 0.1 K/mm3 (0.0-0.1); Basophils Percent Auto 0.4 % (0.2-1.2); Eosinophils Absolute Auto 0.3 K/mm3 (0-0.3); Eosinophils Percent Auto 2.4 % (0-4.4); Hematocrit 30.9 % (37.0-47.0); Immature Granulocyte Absolute 0.05 K/mm3 (0.00-0.031); Immature Granulocyte Percent A 0.4 % (0-0.5); Lymphocytes Absolute Auto 3.84 K/mm3 (0.9-3.2); Lymphocytes Percent Auto 31.8 % (18.3-44.2); Mean Corpuscular HGB Conc 32.4 g/dl (32-36); Mean Corpuscular Hemoglobin 30.4 pg (26-34); Mean Corpuscular Volume 93.9 fl (80-100); Monocytes Absolute Auto 0.6 K/mm3 (0.1-0.6); Monocytes Percent Auto 5.3 % (2.6-8.5); Neutrophils Absolute Auto 7.2 K/mm3 (1.3-6.7); Neutrophils Percent Auto 59.7 % (45.5-73.1); Platelet Count Result 242 k/mm3 (150-375); Red Blood Count 3.29 M/mm3 (4.2-5.4); Red Cell Distribution Width 14.3 % (11.5-14.5); White Blood Count 12.1 K/mm3 (4.5-10.0)
[2019-12-21 06:18] LABS: Alanine Aminotransferase 9 U/L (4-35); Albumin Level 2.7 g/dL (3.5-5.1); Alkaline Phosphatase 74 U/L (38-126); Aspartate Amino Transferase 19 U/L (14-36); Bilirubin,Total 0.2 mg/dL (0.2-1.3); Blood Urea Nitrogen 37 mg/dL (7-17); Calcium 8.1 mg/dL (8.4-10.2); Carbon Dioxide 31 mmol/L (22-30); Chloride 96 mmol/L (98-107); Estimated CRCL calculation 17 ml/min; Estimated Glomerular Filt Rate 15; Glucose 139 mg/dL (65-105); Magnesium 2.3 mg/dL (1.6-2.3); Phosphorus 4.3 mg/dL (2.5-4.5); Potassium 4.3 mmol/L (3.4-5.0); Sodium 129 mmol/L (137-145)
[2019-12-21 07:21] LABS: Hepatitis B Surface Antigen Negative (Negative)
[2019-12-21 07:27] LABS: HAV RESULT Negative (Negative); Hepatitis B Core IgM Result Negative (Negative)
[2019-12-21 07:39] LABS: Hepatitis B Surface Anti Res Negative; Hepatitis C Virus Antibody Negative (Negative)
[2019-12-21 07:43] LABS: Glucose Point of Care 156 (65-105)
[2019-12-21] MEDS: PANTOPRAZOLE 40 MG TABLET PO ×2 (08:09→20:09)
[2019-12-21] MEDS: AMLODIPINE BESYLATE 5 MG TABLET 10 MG PO (08:09)
[2019-12-21] MEDS: METOPROLOL TARTRATE 25 MG TABLET PO ×2 (08:09→20:09)
[2019-12-21] MEDS: FUROSEMIDE 40 MG TABLET PO ×2 (08:09→16:57)
[2019-12-21] MEDS: metOLazone 5 MG TABLET PO ×3 (08:09→16:57)
--- NOTE | 2019-12-21 09:48 | PM.CNNEP ---
Assessment and Plan Assessment and plan (1) End stage renal disease: Code(s): N18.6 - End stage renal disease Status: Chronic (2) Papilledema: Code(s): H47.10 - Unspecified papilledema Status: Chronic (3) Hypertension: Qualifiers: Hypertension type: unspecified Qualified Code(s): I10 - Essential (primary) hypertension Code(s): I10 - Essential (primary) hypertension Status: Acute (4) Diabetes mellitus: Qualifiers: Diabetes mellitus type: type 1 Diabetes mellitus complication status: with hyperglycemia Qualified Code(s): E10.65 - Type 1 diabetes mellitus with hyperglycemia Code(s): E11.9 - Type 2 diabetes mellitus without complications Status: Chronic Assessment and Plan: . Additional Plan Pamela has end-stage renal disease and is due for dialysis today. Her last dialysis treatment was on Friday but she did receive a CT scan with contrast yesterday so dialysis today will be done to remove the dye as well as to keep her on her regular outpatient dialysis schedule of Friday. She has no critical electrolyte abnormalities and her fluid status appears to be reasonably controlled but given her history of fluid overload in the past (her last hospitalization was for this), we will try to be aggressive with fluid removal with her treatment today within the limits of her hemodynamics. I will defer what further testing and evaluation needs to be done with regard to her papilledema to Neurology although I was informed that she would likely require an MRI and possible lumbar puncture to rule out the possibility of normal pressure hydrocephalus as a cause for this condition given the findings of the CT scan of her orbits done in the ER yesterday. I will continue to follow her CKD parameters while she remains hospitalized and make further adjustments her medications and dialysis prescription as deemed necessary. Thank you for allowing me to participate in the care of this patient. History of Present Illness Reason for Consult Consult date: 12/21/19 Reason for consult: end stage renal disease Chief Complaint Chief complaint: ESRD on dialysis/bilateral papiloedema Review of Systems Review of Systems: Narrative: As per HPI. [facility] Past Medical History Medical History (Updated 12/21/19 @ 09:51 by Celso Vizcaino MD) Acute hyperglycemia Acute kidney injury Acute on chronic kidney failure Amputation of toe Two on the left Anasarca AV fistula Left forearm Chronic kidney disease, stage 3 Chronic osteomyelitis Chronic renal failure, stage 3 (moderate) CKD stage 3 due to type 1 diabetes mellitus Diabetes mellitus DKA (diabetic ketoacidoses) Elevated troponin HTN (hypertension) Hyperlipidemia Hypokalemia Kidney failure Nausea and vomiting Papilledema Pyuria Surgical History Surgical History H/O tubal ligation History of amputation 2 toes on the left History of section, classical X2 History of tonsillectomy and adenoidectomy Hx of myringotomy S/P dialysis catheter insertion Right internal jugular S/P lateral meniscal repair S/P PICC central line placement Now removed S/P rotator cuff repair Family History Family History Unknown Adopted Social History Social History Social History: The patient stated that she has 2 children and she lives with her who she appoints to be her power of insurance attorney. She desires to be a full code. She is not currently working she is now on disability. Patient stated that she is down to 4-5 cigarettes a day. Smoking packs per day: 0.25 Smoking cigarettes per day: 5.0 Years smoked: 28 Smoking pack-years: 7.00 Smoking status: Current every day smoker Tobacco type: cigarettes Second hand tob
--- NOTE | 2019-12-21 09:59 | PM.PNNEP ---
Progress Note: A&P Assessment and Plan (1) End stage renal disease: Code(s): N18.6 - End stage renal disease Status: Chronic (2) Papilledema: Code(s): H47.10 - Unspecified papilledema Status: Chronic (3) Hypertension: Qualifiers: Hypertension type: unspecified Qualified Code(s): I10 - Essential (primary) hypertension Code(s): I10 - Essential (primary) hypertension Status: Acute (4) Diabetes mellitus: Qualifiers: Diabetes mellitus complication status: with hyperglycemia Diabetes mellitus type: type 1 Qualified Code(s): E10.65 - Type 1 diabetes mellitus with hyperglycemia Code(s): E11.9 - Type 2 diabetes mellitus without complications Status: Chronic Assessment and Plan: . Additional Plan HD today and continue T/T/S schedule FULL CONSULT TO FOLLOW Subjective Date/time seen: 12/21/19 09:59 Patient tolerating hemodialysis treatment at the time of my visit (she was seen on HD at 9:45AM); no apparent distress voiced currently. Exam Narrative: Exam Narrative: General: WD/WN female in NAD Heart: normal S1 and S2; no rub Lungs: clear to auscultation Abdomen: soft, nontender, nondistended, positive bowel sounds Extremities: no cyanosis or clubbing; no edema Skin: warm and dry Objective Data Vital Signs Vital Signs: Vital Signs Temp Pulse Resp BP Pulse Ox 12/21/19 09:25 72 166/79 H 12/21/19 08:09 82 12/21/19 06:00 36.3 C L 72 15 175/67 H 99 12/20/19 23:41 88 12/20/19 22:00 36.4 C L 82 16 149/70 H 100 12/20/19 20:07 37.1 C 92 16 127/64 100 12/20/19 18:23 97 16 174/73 H 99 12/20/19 17:03 97 12 198/85 H 100 12/20/19 15:03 99 12 197/75 H 99 12/20/19 12:19 36.4 C 108 H 18 164/91 H 100 Intake/Output Intake/Output: Intake & Output 12/18/19 12/19/19 12/20/19 12/21/19 23:59 23:59 23:59 23:59 Intake Total 690 Output Total 200 Balance 490 Meds/Results Medications: Active Medications Generic Name Dose Route Start Last Admin Trade Name Freq PRN Reason Stop Dose Admin Acetaminophen 650 mg 12/20/19 18:04 Tylenol Tablet PO Q4H PRN Mild Pain (1-3) or Fever Amlodipine Besylate 10 mg 12/21/19 09:00 12/21/19 08:09 Norvasc PO 10 mg QAM JOHNSON Administration Atorvastatin Calcium 80 mg 12/20/19 22:35 12/20/19 23:40 Lipitor PO 80 mg HS JOHNSON Administration Dextrose 12.5 gm 12/20/19 22:25 Dextrose 50% Syringe IV PUSH PRN PRN Hypoglycemia Protocol Furosemide 40 mg 12/21/19 09:00 12/21/19 08:09 Lasix Tablet PO 40 mg BID JOHNSON Administration Glucagon 1 mg 12/20/19 22:25 Glucagon For Inj IM PRN PRN Hypoglycemia Protocol Glucose 15 gm 12/20/19 22:25 Glutose 15 PO PRN PRN Hypoglycemia Protocol Dextrose 1,000 mls @ 100 mls/hr 12/20/19 22:25 Dextrose 5% 1,000 Ml IVPB PRN PRN Hypoglycemia Protocol Albumin Human 50 mls @ 999 mls/hr 12/21/19 02:35 Albutein IVPB 01/20/20 02:36 Q10M PRN HYPOTENSION Insulin Aspart 3 - 6 units 12/21/19 08:00 12/21/19 07:57 Novolog SUB-Q Not Given TIDWM JOHNSON Protocol Insulin Glargine 17 units 12/21/19 21:00 Lantus SUB-Q HS JOHNSON Metoclopramide HCl 5 mg 12/20/19 22:35 12/21/19 05:57 Reglan PO 5 mg ACHS JOHNSON Administration Metolazone 5 mg 12/21/19 09:00 12/21/19 08:09 Zaroxolyn PO 5 mg TID JOHNSON Administration Metoprolol Tartrate 25 mg 12/20/19 22:35 12/21/19 08:09 Lopressor PO 25 mg Q12HR JOHNSON Administration Pantoprazole Sodium 40 mg 12/20/19 22:35 12/21/19 08:09 Protonix PO 40 mg Q12HR JOHNSON Administration Radiology Results: ITS Impressions Orbit CT 12/20/19 15:41 IMPRESSION: Mild proptosis. Otherwise unremarkable exam. Quality Patient tolerating hemodialysis at this time ([id number]).
--- NOTE | 2019-12-21 12:15 | CONS_ITS ---
DATE OF CONSULTATION: 12/20/2019 HISTORY OF PRESENT ILLNESS: A 44-year-old right-handed female has been admitted to [facility] through the emergency room for the complaint of end-stage renal disease with bilateral papilledema. The patient was recently discharged from the hospital on 12/10/2019. She complained of blurred vision. The patient's previous admission was documented to have the findings suggestive of retinopathy, but reportedly she had an earlier eye exam, which suggested that she has bleed involving her retina. At that time, her CT scan of the brain revealed no evidence of any involvement. The patient did not follow up with the retinal specialist, who suggested further neurological evaluation because of the possibility of the papilledema. CT scan of the orbit was obtained, which revealed mild proptosis. It was advised that she will need the MRI and if the MRI is normal, then she will benefit from the spinal tap to measure the spinal fluid pressure. She continues to complain of the blurred vision. In the past, she had ongoing history of: 1. Chronic renal failure. 2. Amputation of the 2 toes on the left. 3. Left forearm AV fistula. 4. Chronic kidney disease, stage 3. 5. Diabetes mellitus. 6. Hypertension. 7. Hyperlipidemia. 8. She has undergone tubal ligation. SOCIAL HISTORY: At present, she is smoking 5 cigarettes per day with a history of 20 years smoke and smoking pack years of 7. She is a current every day smoker with secondhand smoke exposure as well. She does not drink alcohol. MEDICATIONS: She has been taking multiple medication, which includes: 1. Atorvastatin 80 mg at bedtime. 2. Metolazone 5 mg t.i.d. 3. Amlodipine 10 mg daily. 4. Furosemide 40 mg twice a day. 5. Insulin 7 units subcu t.i.d. with meals. 6. Metoclopramide 5 mg at bedtime. 7. Metoprolol 25 mg q.12 hours. 8. Zofran p.r.n. 9. Pantoprazole 40 mg daily. ALLERGIES: SHE IS NOT ALLERGIC TO ANY MEDICATION. PHYSICAL EXAMINATION: VITAL SIGNS: Evaluation up until now documented her to be afebrile with temperature of 36.4, pulse of 108, respirations 18, blood pressure 164/91, pulse ox 100. HEENT: Head normocephalic with no cranial bruit. Ear, nose, and throat examination normal. NECK: Supple with no cervical bruit. No thyromegaly. No lymphadenopathy. HEART: Regular with no murmur. LUNGS: Clear with no crepitation or rhonchi. ABDOMEN: Soft with no organomegaly. SKIN: Normal. NEUROLOGICAL: She is awake, alert, oriented x3. Speech not dysphasic, not dysarthric, not dysphonic. Pupils round, regular. [place] of vision full. Extraocular movements full. Face symmetrical. Tongue midline. Motor examination revealed her to have normal and symmetrical strength within both upper and lower extremities. Reflexes are symmetrical, but sluggish. Plantars are downgoing. There is no evidence of gross cerebellar deficit. There is only suggestion of indistinct disk margin with possibility of the papilledema. LABORATORY DATA: Evaluation up now has documented only mild proptosis, but MRI definitely warranted to rule out the possibility of the intracranial pathology before we attempt the spinal tap. She had an echocardiogram during her previous hospitalization, which was fairly normal with mild aortic valve sclerosis. Even at that time, she has had no MRI of the brain. The orbital CT scan has been done, which revealed only mild proptosis. There is no enhancement of the postcontrast images of any structure. Pituitary sella turcica, suprasellar regions are unremarkable. Further recommendations made after the MRI is done. DARLINE ADAIR M.D. STONEWORKER STONEWORKER Dre Poole
[2019-12-21] MEDS: HEPARIN SODIUM 1,000 UNITS/ML VIAL 1000 UNITS IV PUSH (13:34)
[2019-12-21 14:41] LABS: Glucose Point of Care 148 (65-105)
--- NOTE | 2019-12-21 15:55 | PM.IMPN ---
Progress Note: A&P Assessment and Plan (1) Papilledema: Code(s): H47.10 - Unspecified papilledema Status: Chronic Assessment and Plan: The ED provider spoke with the a retinal specialist as well as the neurologist. The patient's retinal specialist did not think that her papilledema was secondary to her diabetes and wanted further evaluation and workup to be completed our hospital. Dr. Fletcher neurology, evaluated the patient and ordered an MRI to be completed. MRI was done showing Chiari 1 malformation, finding may be associated with papilledema. Several nonspecific periventricular signal abnormalities: several periventricular T2/FLAIR hyperintensities bilaterally, a non-specific finding with differential diagnosis including premature chronic small vessel ischemic disease (especially if the patient has cardiovascular risk factors), migraine headaches, demyelinating disease such as multiple sclerosis or acute disseminated encephalomyelitis (ADEM), vasculopathy, lyme's disease or reactive astrocytosis (gliosis) secondary to nonspecific etiology. I talked to Dr. Fletcher, who would like to keep the patient overnight and evaluate the patient further in the morning. We have ruled out acute obstructive hydrocephalus as well as tumor/mass. He may consider to do a spinal tap tomorrow depending on his examination and after he reviews the MRI results. The patient is unsure of her parent's medical history since she was adopted. Continue monitoring patient's symptoms and see what Neurology recommends in the morning. (2) ESRD on dialysis: Code(s): N18.6 - End stage renal disease; Z99.2 - Dependence on renal dialysis Status: Acute Assessment and Plan: Nephrology has been consulted. The patient has dialysis on Friday. Patient had dialysis today which is her normal schedule day. Continue on her home diuretic therapy and Nephrology's input is greatly appreciated. (3) Hypertension: Qualifiers: Hypertension type: unspecified Qualified Code(s): I10 - Essential (primary) hypertension Code(s): I10 - Essential (primary) hypertension Status: Acute Assessment and Plan: Blood pressure has remained stable this morning and with dialysis. Continue with metoprolol and Norvasc (4) Diabetes mellitus: Qualifiers: Diabetes mellitus complication status: with hyperglycemia Diabetes mellitus type: type 1 Qualified Code(s): E10.65 - Type 1 diabetes mellitus with hyperglycemia Code(s): E11.9 - Type 2 diabetes mellitus without complications Status: Chronic Assessment and Plan: Serum glucose this morning was 139. Stable. Accu-Cheks AC and HS and continue long-acting insulin. Hypoglycemic protocol in place. (5) Hyperlipidemia: Code(s): E78.5 - Hyperlipidemia, unspecified Status: Chronic Assessment and Plan: Continue with atorvastatin. Time Spent With Patient Time with patient: 25 - 35 minutes Subjective Date/time seen: 12/21/19 15:55 Interval history: Date of service 12/21/2019: The patient reports still having blurred vision and pain to her bilateral eyes. She denies any lightheadedness or dizziness since her dialysis. She denies any chest pain, shortness of breath, cough, fever, chills, nausea, vomiting, abdominal pain, constipation, leg swelling, calf pain or any other symptoms at this time. Review of Systems Review of Systems: All systems reviewed & are unremarkable except as noted in HPI and below Exam Narrative: Exam Narrative: General: 44-year-old woman sitting up on the couch on her phone. Appears comfortable. In no acute distress. Skin: No jaundice or cyanosis. Good skin tur
[2019-12-21 16:44] LABS: Glucose Point of Care 248 (65-105)
[2019-12-21] MEDS: INSULIN ASPART (*BKC) 100 UNITS/ML SUB-Q ×2 (16:57→20:29)
[2019-12-21] MEDS: ATORVASTATIN 40 MG TABLET 80 MG PO (20:09)
[2019-12-21] MEDS: INSULIN GLARGINE (*BKC) 100 UNITS/ML 17 UNITS SUB-Q (20:14)
[2019-12-21 20:31] LABS: Glucose Point of Care 362 (65-105)
[2019-12-22 00:12] LABS: Glucose Point of Care 298 (65-105)
[2019-12-22] MEDS: METOCLOPRAMIDE HCL 5 MG TABLET PO ×3 (05:43→16:59)
[2019-12-22 06:17] LABS: Basophils Percent Auto 0.4 % (0.2-1.2); Eosinophils Absolute Auto 0.2 K/mm3 (0-0.3); Hematocrit 31.1 % (37.0-47.0); Hemoglobin 9.7 g/dL (12.0-15.0); Immature Granulocyte Absolute 0.02 K/mm3 (0.00-0.031); Immature Granulocyte Percent A 0.2 % (0-0.5); Lymphocytes Absolute Auto 3.07 K/mm3 (0.9-3.2); Lymphocytes Percent Auto 31.9 % (18.3-44.2); Mean Corpuscular HGB Conc 31.2 g/dl (32-36); Mean Corpuscular Hemoglobin 30.1 pg (26-34); Mean Corpuscular Volume 96.6 fl (80-100); Mean Platelet Volume 10.1 fl (7.4-10.4); Monocytes Absolute Auto 0.6 K/mm3 (0.1-0.6); Monocytes Percent Auto 5.8 % (2.6-8.5); Neutrophils Absolute Auto 5.7 K/mm3 (1.3-6.7); Neutrophils Percent Auto 59.7 % (45.5-73.1); Platelet Count Result 229 k/mm3 (150-375); Red Blood Count 3.22 M/mm3 (4.2-5.4); Red Cell Distribution Width 14.6 % (11.5-14.5); White Blood Count 9.6 K/mm3 (4.5-10.0)
[2019-12-22 06:24] VITALS: BP 154/79; PULSE 74; RESP 16; TEMP 36.8; O2SAT 100
[2019-12-22 06:38] LABS: Albumin Level 2.9 g/dL (3.5-5.1); Blood Urea Nitrogen 25 mg/dL (7-17); Carbon Dioxide 28 mmol/L (22-30); Chloride 100 mmol/L (98-107); Estimated CRCL calculation 19 ml/min; Estimated Glomerular Filt Rate 17; Glucose 318 mg/dL (65-105); Phosphorus 4.1 mg/dL (2.5-4.5); Potassium 4.8 mmol/L (3.4-5.0); Sodium 132 mmol/L (137-145)
[2019-12-22 07:52] LABS: Glucose Point of Care 272 (65-105)
[2019-12-22] MEDS: PANTOPRAZOLE 40 MG TABLET PO (08:09)
[2019-12-22] MEDS: FUROSEMIDE 40 MG TABLET PO ×2 (08:09→16:59)
[2019-12-22] MEDS: metOLazone 5 MG TABLET PO ×3 (08:09→16:59)
[2019-12-22] MEDS: AMLODIPINE BESYLATE 5 MG TABLET 10 MG PO (08:09)
[2019-12-22 08:10] VITALS: PULSE 76
[2019-12-22] MEDS: METOPROLOL TARTRATE 25 MG TABLET PO (08:10)
[2019-12-22] MEDS: INSULIN ASPART (*BKC) 100 UNITS/ML SUB-Q ×3 (08:10→17:00)
[2019-12-22 11:53] LABS: Glucose Point of Care 318 (65-105)
[2019-12-22 12:30] LABS: Folic Acid 6.1 ng/mL (2.76->20)
--- NOTE | 2019-12-22 12:51 | PM.CNNEP ---
Assessment and Plan Assessment and plan (1) End stage renal disease: Code(s): N18.6 - End stage renal disease Status: Chronic (2) Papilledema: Code(s): H47.10 - Unspecified papilledema Status: Chronic (3) Hypertension: Qualifiers: Hypertension type: unspecified Qualified Code(s): I10 - Essential (primary) hypertension Code(s): I10 - Essential (primary) hypertension Status: Acute (4) Diabetes mellitus: Qualifiers: Diabetes mellitus type: type 1 Diabetes mellitus complication status: with hyperglycemia Qualified Code(s): E10.65 - Type 1 diabetes mellitus with hyperglycemia Code(s): E11.9 - Type 2 diabetes mellitus without complications Status: Chronic Additional Plan Pamela has end-stage renal disease. She received dialysis yesterday to maintain her Friday schedule and her electrolytes as well as her volume status appears to be stable from a dialysis point of view. I will continue her dialysis on her outpatient schedule while she remains hospitalized and upon further testing that may need to be done. I will defer what further testing and evaluation needs to be done with regard to her papilledema to Neurology although I was informed that she would likely require an MRI and possible lumbar puncture to rule out the possibility of normal pressure hydrocephalus as a cause for this condition given the findings of the CT scan of her orbits done in the ER the day before yesterday. I will continue follow patient with you while she remains hospitalized make further recommendations during hospital course Thank you for allowing me to participate in care this patient. History of Present Illness Reason for Consult Consult date: 12/22/19 Reason for consult: end stage renal disease Chief Complaint Chief complaint: ESRD on dialysis/bilateral papiloedema History of Present Illness Narrative: The patient is a 44 year old female with a past medical history as noted below who presented to [facility] ER for concerns regarding bilateral papilledema. The patient recently saw her retinal specialist on the day of admission after being briefly hospitalized here [facility] a few days earlier for fluid overload. At that time she had been having issues with blurry vision during the hospital stay but no acute findings were mention and it was suspected that she may have some retinal bleeding and hence the a for mentioned follow-up appointment. On exam in the office by her retinal specialist clear evidence of bilateral papilledema was noted and there was concern that there may be some other acute process involving her eyes and hence was sent to the ER for evaluation. Workup and evaluation emergency room demonstrated labs consistent with her known history of end-stage renal disease and based on recommendations by her forensic engineer, she underwent a CT scan of the orbits with contrast which did not demonstrate any acute pathological changes other than some mild throat proptosis. Neurology was consult from the emergency room at the behest of her forensic engineer and she was subsequently the hospital for further evaluation and therapy. Renal consultation was requested due to her end-stage renal disease. The patient already dialyzed on a Friday schedule at [facility] under the care of Dr. aubrie Forbes. From a dialysis perspective, she has been doing reasonably well although as already mentioned, she was recently admitted here [facility] for fluid overload. She responded to aggressive ultrafiltration/fluid removal with dialysis and eventually was discharged. Currently, the patient the appearing acute distress and she did receive her dialysis treatment yesterday to keep her on her Friday schedule as well as to clear the a for mentioned contrast that she received from the CT scan of her orbits. Review of Sys
[2019-12-22 14:32] VITALS: BP 150/63; PULSE 73; RESP 14; TEMP 36.4; O2SAT 98
--- NOTE | 2019-12-22 16:18 | PM.DS ---
DS: Admitting Diagnosis Admitting Diagnosis Admitting Diagnosis: Unspecified papilledema DS: Discharge Diagnosis Discharge Diagnosis (1) Papilledema: Code(s): H47.10 - Unspecified papilledema Status: Chronic Assessment and Plan: The ED provider spoke with the a retinal specialist as well as the neurologist. The patient's retinal specialist did not think that her papilledema was secondary to her diabetes and wanted further evaluation and workup to be completed our hospital. MRI was done showing Chiari 1 malformation, finding may be associated with papilledema. Several nonspecific periventricular signal abnormalities: several periventricular T2/FLAIR hyperintensities bilaterally, a non-specific finding with differential diagnosis including premature chronic small vessel ischemic disease (especially if the patient has cardiovascular risk factors), migraine headaches, demyelinating disease such as multiple sclerosis or acute disseminated encephalomyelitis (ADEM), vasculopathy, lyme's disease or reactive astrocytosis (gliosis) secondary to nonspecific etiology I talked to Dr. Fletcher who ordered an MR venogram showing normal results without signs of venous obstruction. We have ruled out acute obstructive hydrocephalus as well as tumor/mass. Dr. Fletcher feels at this time the patient can be discharged home to have her follow-up with a Neuro-Ophthomologist specialist at [facility] to have him review eyes and to preform an LP at that time. He does not feel that a lumbar puncture is needed at this time. The patient understands and agrees with the plan all questions answered. (2) ESRD on dialysis: Code(s): N18.6 - End stage renal disease; Z99.2 - Dependence on renal dialysis Status: Acute Assessment and Plan: Nephrology has been consulted. The patient has dialysis on Friday. Patient had dialysis yesterday which is her normal schedule day. Her creatinine and electrolytes are stable at this time. (3) Hypertension: Qualifiers: Hypertension type: unspecified Qualified Code(s): I10 - Essential (primary) hypertension Code(s): I10 - Essential (primary) hypertension Status: Acute Assessment and Plan: Blood pressure has remained stable today. Continue with metoprolol and Norvasc (4) Diabetes mellitus: Qualifiers: Diabetes mellitus complication status: with hyperglycemia Diabetes mellitus type: type 1 Qualified Code(s): E10.65 - Type 1 diabetes mellitus with hyperglycemia Code(s): E11.9 - Type 2 diabetes mellitus without complications Status: Chronic Assessment and Plan: Serum glucose this morning was 318, elevated. Will have continue checking her glucose regularly and taking her home medications. Her follow-up primary care provider within 1 week of discharge. (5) Hyperlipidemia: Code(s): E78.5 - Hyperlipidemia, unspecified Status: Chronic Assessment and Plan: Continue with atorvastatin. DS: Summary Hospital Course Reason for hospitalization: Patient is a 44-year-old woman with a history of diabetes type 1 since 16 years old, end-stage renal disease, who presented to the emergency department from her retinal specialist [facility] office for further evaluation and work up for causes of blurred vision and papilledema. Initial vitals showed temperature of 97.6?, blood pressure 164/91, heart rate slightly tachycardic at 108, respiratory rate 18, oxygen saturation 100% on room air. Initial labs showed, slight leukocytosis 11,900, with a slight left shift. BMP consistent with her stable ESRD with Na 130, Creatinine stable at 3.0, BUN 33, Glucose 382. The patient was admitted for [facility]
[2019-12-22 16:41] LABS: Glucose Point of Care 212 (65-105)
--- NOTE | 2019-12-28 13:43 | PC.NURSE ---
Blood cx is negative.
== END 2019-12-22 19:00 | disposition home or self-care (01) | DRG 91 ==
LOC: ANHED 18:09 → ANH3MED 18:30
PROVIDERS: Internal Medicine Nephrology; Nurse Practitioner; Physician Assistant; Admitting Provider Internal Medicine; Emergency Provider Emergency Medicine; PCP Internal Medicine; Visit Provider Internal Medicine
DX: H47.10 Unspecified papilledema (principal); N18.6 End stage renal disease; I12.0 Hypertensive chronic kidney disease with stage 5 chronic kidney disease or end stage renal disease; E10.22 Type 1 diabetes mellitus with diabetic chronic kidney disease; E10.65 Type 1 diabetes mellitus with hyperglycemia; E10.319 Type 1 diabetes mellitus with unspecified diabetic retinopathy without macular edema; E78.5 Hyperlipidemia, unspecified; Z99.2 Dependence on renal dialysis; Z89.422 Acquired absence of other left toe(s); F17.210 Nicotine dependence, cigarettes, uncomplicated
CPT/HCPCS: 36415; 70481; 70544; 70551; 80053; 80069; 80074; 82607; 82746; 82948; 83735; 84100; 85025; 86706; 87040; 99285; A9270; G0257; J1644; J1815; J7030; Q9967

== ENCOUNTER 2020-01-17 16:02 | Inpatient (IN) | payer BC, MEDICAID, SELFPAY ==
[2020-01-17] VITALS (8 sets, daily range): BP systolic 146–222; BP diastolic 67–116; PULSE 98–115; RESP 16–113; TEMP 36.1–36.9; O2SAT 98–100
--- NOTE | ~2020-01-17 | CT_ITS ---
EXAMINATION: CT brain wo con INDICATION: Head injury COMPARISON: None TECHNIQUE: Standard unenhanced head CT. The dose-length product (DLP) was 681.00 mGy-cm. The mA was a djusted according to patient size. Iterative reconstruction technique was employed. FINDINGS: There is no intracranial hemorrhage, acute infarction, or abnormal mass lesion. The ventric les are normal. There is no abnormal mass effect or midline shift. The jordan-white matter differentiat ion is normal. The basal cisterns are patent. The orbits are normal. There is minimal opacification o f the mastoid air cells. IMPRESSION: 1. No acute intracranial abnormality. Reviewed, dictated and finalized at location A.
--- NOTE | ~2020-01-17 | XR_ITS ---
EXAMINATION: XR chest 1V portable INDICATION: Abdominal pain and nausea TECHNIQUE: Portable AP chest at 2109 hours COMPARISON: 12/07/2019 FINDINGS: The lungs are free of acute opacities. There is no pleural effusion or pneumothorax. The ca rdiomediastinal silhouette is normal for technique. A right internal jugular dialysis catheter ends i n the right atrium. IMPRESSION: 1. No acute cardiopulmonary abnormality. Reviewed, dictated and finalized at location A.
--- NOTE | ~2020-01-17 | CT_ITS ---
EXAMINATION: CT abdomen pelvis w con INDICATION: Abdominal pain, vomiting and diarrhea TECHNIQUE: Computed tomographic images of the abdomen and pelvis were obtained after the administrati on of 100 cc of Omnipaque 350 intravenous contrast. The dose-length product (DLP) was 258.97 mGy-cm. Automated exposure control and iterative reconstruction technique were employed. COMPARISON: 12/07/2019 FINDINGS: Minimal dependent atelectasis is present in the lung bases. The heart size is normal. There is focal fatty infiltration of liver adjacent to the ligamentum teres. The liver is otherwise unrema rkable. The spleen, pancreas, gallbladder, and adrenal glands are normal. The kidneys are unremarkabl e. Diffuse anasarca is again noted. There is calcified atherosclerosis of the aorta and many of the o ther arteries. There is no free intraperitoneal gas or evidence of bowel obstruction. No pathological ly enlarged abdominal or pelvic lymph nodes are identified. The appendix is normal. IMPRESSION: 1. No CT correlate for the patient's symptoms. Reviewed, dictated and finalized at location A.
--- NOTE | 2020-01-17 16:45 | PC.NURSE ---
Unable to obtain labs after 3 attempts.
--- NOTE | 2020-01-17 19:56 | ED.GENADULT ---
HPI - General Adult General Chief complaint: Unspecified Stated complaint: n/v, poss infected dialysis port Time Seen by Provider: 01/17/20 19:41 History of Present Illness HPI narrative: Patient is 44 y/o female complaining of nausea and vomiting starting today. She states that she vomited 5-10 times, mostly bile. There is no alleviating or exacerbating factor. She has some mild abdominal pain. She denies any fever. Of note, she was told 2 days ago at dialysis center that her dialysis catheter may be infected. She denies any redness or drainage from her dialysis catheter site. Related Data Home Medications Medication Instructions Recorded Confirmed atorvastatin 80 mg PO HS 06/05/19 01/18/20 Basaglar KwikPen U-100 Insulin 17 unit SUBCUT HS 10/02/19 01/18/20 metolazone 5 mg PO TID 10/19/19 01/18/20 Allergies Allergy/AdvReac Type Severity Reaction Status Date / Time No Known Drug Allergies Allergy Unknown Verified 01/17/20 23:02 Review of Systems Constitutional: Constitutional: Denies chills, Denies fever(s), Denies headache(s) and Denies weakness Eyes: Eyes: Denies blurry vision ENT: Denies headache(s) and Denies neck pain Cardiovascular: Cardiovascular: Denies chest pain and Denies dyspnea Respiratory: Respiratory: Denies cough and Denies dyspnea Gastrointestinal: Gastrointestinal: Reports abdominal pain, Reports diarrhea, Reports nausea and Reports vomiting Genitourinary: Genitourinary: Denies hematuria and Denies dysuria Musculoskeletal: Musculoskeletal: Denies back pain and Denies neck pain Neurologic: Denies headache(s) and Denies weakness [facility] Past Medical History Medical History Acute hyperglycemia Acute kidney injury Acute on chronic kidney failure Amputation of toe Two on the left Anasarca AV fistula Left forearm Chronic kidney disease, stage 3 Chronic osteomyelitis Chronic renal failure, stage 3 (moderate) CKD stage 3 due to type 1 diabetes mellitus Diabetes mellitus DKA (diabetic ketoacidoses) Elevated troponin HTN (hypertension) Hyperlipidemia Hypokalemia Kidney failure Nausea and vomiting Papilledema Pyuria Surgical History Surgical History H/O tubal ligation History of amputation 2 toes on the left History of section, classical X2 History of tonsillectomy and adenoidectomy Hx of myringotomy S/P dialysis catheter insertion Right internal jugular S/P lateral meniscal repair S/P PICC central line placement Now removed S/P rotator cuff repair Family History Family History Unknown Adopted Social History Social History Social History: The patient stated that she has 2 children and she lives with her who she appoints to be her power of collections attorney. She desires to be a full code. She is not currently working she is now on disability. Patient stated that she is down to 4-5 cigarettes a day. Smoking packs per day: 0.25 Smoking cigarettes per day: 5.0 Years smoked: 28 Smoking pack-years: 7.00 Smoking status: Current every day smoker Tobacco type: cigarettes Second hand tobacco smoke exposure: Yes Additional smoking assessment comments: 2 packs per week Alcohol intake: never Substance use: never Substance use type: does not use Gender identity (if verbalized by the patient): Female Spiritual care concerns: No Agree to blood products: Yes Exam Const: General: no acute distress and well developed Orientation/consciousness: oriented to person, oriented to place, oriented to time and patient oriented x3 HENMT: Head: normocephalic Ears: external ears normal General nose exam: Normal external nose present Eyes: General: appearance normal, both eyes and all related structures Conjunctivae: conjunctivae normal Neck:
[2020-01-17] MEDS: ONDANSETRON INJ 4 MG/2 ML VIAL IV PUSH (20:07)
[2020-01-17 20:13] LABS: Basophils Absolute Auto 0.1 K/mm3 (0.0-0.1); Basophils Percent Auto 0.6 % (0.2-1.2); Hematocrit 44.6 % (37.0-47.0); Hemoglobin 14.4 g/dL (12.0-15.0); Immature Granulocyte Absolute 0.05 K/mm3 (0.00-0.031); Immature Granulocyte Percent A 0.4 % (0-0.5); Lymphocytes Absolute Auto 0.75 K/mm3 (0.9-3.2); Mean Corpuscular HGB Conc 32.3 g/dl (32-36); Mean Corpuscular Hemoglobin 31.2 pg (26-34); Mean Corpuscular Volume 96.5 fl (80-100); Mean Platelet Volume 9.7 fl (7.4-10.4); Monocytes Absolute Auto 0.2 K/mm3 (0.1-0.6); Monocytes Percent Auto 1.6 % (2.6-8.5); Neutrophils Absolute Auto 11.5 K/mm3 (1.3-6.7); Neutrophils Percent Auto 91.4 % (45.5-73.1); Platelet Count Result 304 k/mm3 (150-375); Red Blood Count 4.62 M/mm3 (4.2-5.4); White Blood Count 12.5 K/mm3 (4.5-10.0)
[2020-01-17 20:26] LABS: Alanine Aminotransferase 18 U/L (4-35); Albumin Level 4.4 g/dL (3.5-5.1); Alkaline Phosphatase 119 U/L (38-126); Aspartate Amino Transferase 25 U/L (14-36); Bilirubin,Total 0.5 mg/dL (0.2-1.3); Blood Urea Nitrogen 36 mg/dL (7-17); Calcium 9.8 mg/dL (8.4-10.2); Carbon Dioxide 29 mmol/L (22-30); Chloride 96 mmol/L (98-107); Estimated CRCL calculation 19 ml/min; Estimated Glomerular Filt Rate 12; Glucose 434 mg/dL (65-105); Lipase 111 U/L (23-300); Potassium 4.8 mmol/L (3.4-5.0); Sodium 139 mmol/L (137-145)
[2020-01-17] MEDS: LABETALOL HCL INJ 100 MG/20 ML VIAL 20 MG IV PUSH (20:43)
--- NOTE | 2020-01-17 20:46 | PC.NURSE ---
pt continues to rest on stretcher at this time, RR even and unlabored. medication administered as stated per AUG. sterling light in reach-encouraged to use. no additional episodes of emesis since arrival.
[2020-01-17] MEDS: METOCLOPRAMIDE HCL INJ 10 MG/2 ML VIAL IV PUSH (21:40)
[2020-01-17] MEDS: INSULIN HUMAN REGULAR (*BKC) 100 UNITS/ML 10 UNITS SUB-Q (21:43)
[2020-01-17 21:46] LABS: Glucose Point of Care 444 (65-105)
[2020-01-17] MEDS: cloNIDine HCL 0.1 MG TABLET 0.2 MG PO (21:48)
--- NOTE | 2020-01-17 22:33 | PC.NURSE ---
pt states she is starting to feel better. pt continues to rest on stretcher in NAD. RR even and unlabored, BP trending down-MD notified. call light in reach-encouraged to use. will continue to monitor pt for baseline status changes.
[2020-01-17 23:01] LABS: Glucose Point of Care 364 (65-105)
[2020-01-17 23:02] LABS: Lactic Acid Reflex 2.9 mmol/L (0.7-2.1)
[2020-01-18] VITALS (26 sets, daily range): BP systolic 123–187; BP diastolic 55–81; PULSE 75–98; RESP 12–20; TEMP 35.1–36.8; O2SAT 96–99; BMI 24.3
--- NOTE | 2020-01-18 00:13 | PM.IMHP ---
H&P: HPI History of Present Illness Chief complaint: hypertensive urgency Narrative: This is a diabetic 44 year old female with known ESRD on HD //Friday who [facility] with a complaint of nausea and vomiting. She describes vomiting at least 10 times today which was nonbloody and looked like bile. The patient was treated with a dose of antibiotics 2 days ago because she was told that her dialysis catheter may have been infected. Associated symptoms include mild diffuse abd discomfort but no fever, chills, headache, chest pain, cough, shortness of breath, worsening LE swelling, diarrhea or rectal bleeding. The patient was evaluated in the ER tonight and routine labs demonstrated an elevated lactic acid of 2.9, tachycardia and tachypnea. She was also found to have severely elevated blood pressures with systolic BP >200 mm Hg. She has been treated with various antihypertensive medications in the ER tonight. She has no other complaints. Review of Systems Review of Systems: All systems reviewed & are unremarkable except as noted in HPI and below PMFSH Past Medical History Medical History Acute hyperglycemia Acute kidney injury Acute on chronic kidney failure Amputation of toe Two on the left Anasarca AV fistula Left forearm Chronic kidney disease, stage 3 Chronic osteomyelitis Chronic renal failure, stage 3 (moderate) CKD stage 3 due to type 1 diabetes mellitus Diabetes mellitus DKA (diabetic ketoacidoses) Elevated troponin HTN (hypertension) Hyperlipidemia Hypokalemia Kidney failure Nausea and vomiting Papilledema Pyuria Surgical History Surgical History H/O tubal ligation History of amputation 2 toes on the left History of section, classical X2 History of tonsillectomy and adenoidectomy Hx of myringotomy S/P dialysis catheter insertion Right internal jugular S/P lateral meniscal repair S/P PICC central line placement Now removed S/P rotator cuff repair Family History Family History Unknown Adopted Social History Social History Social History: The patient stated that she has 2 children and she lives with her who she appoints to be her power of assistant county attorney. She desires to be a full code. She is not currently working she is now on disability. Patient stated that she is down to 4-5 cigarettes a day. Smoking packs per day: 0.25 Smoking cigarettes per day: 5.0 Years smoked: 28 Smoking pack-years: 7.00 Smoking status: Current every day smoker Tobacco type: cigarettes Second hand tobacco smoke exposure: Yes Additional smoking assessment comments: 2 packs per week Alcohol intake: never Substance use: never Substance use type: does not use Gender identity (if verbalized by the patient): Female Spiritual care concerns: No Agree to blood products: Yes Meds Home Medications and Allergies Home Medications Medication Instructions Recorded Confirmed Type atorvastatin 80 mg PO HS 06/05/19 12/20/19 History acetaminophen [Mapap 650 mg PO Q4H PRN #60 tablet 06/09/19 12/20/19 Rx (acetaminophen)] Basaglar KwikPen U-100 Insulin 17 unit SUBCUT HS 10/02/19 12/20/19 History metolazone 5 mg PO TID 10/19/19 12/20/19 History amlodipine [Norvasc] 10 mg PO QAM #30 tablet 12/10/19 12/20/19 Rx furosemide 40 mg PO BID #0 tablet 12/10/19 12/20/19 Rx insulin aspart U-100 [Novolog 7 unit SUB-Q TIDWM #0 ml 12/10/19 12/20/19 Rx Flexpen U-100 Insulin] metoclopramide HCl 5 mg PO ACHS #120 tablet 12/10/19 12/20/19 Rx metoprolol tartrate 25 mg PO Q12HR #60 tablet 12/10/19 12/20/19 Rx ondansetron 4 mg PO Q8H PRN 3 Days #9 tablet 12/10/19 12/20/19 Rx pantoprazole 40 mg PO Q12HR #60 tablet 12/10/19 12/20/19 Rx Allergies Allergy/AdvReac Type
--- NOTE | 2020-01-18 00:22 | PC.NURSE ---
Norvasc not administered d/t pt BP decreasing with previous medications.
--- NOTE | 2020-01-18 00:29 | ADMGEN ---
This patient, Pamela Bhat, was admitted to IMU Room 212-01. Patient/family oriented to hospital policies and general routines including ID bracelet, bed and alarms, visiting hours, pain management, procedures, bathroom and other care routines, personal items, smoking policy, room service/diet, and visiting hours. Valuables list has been completed. Information on how to activate the Rapid Response Team has been discussed. Patient/Family are encouraged to report perceived risks to care and to ask questions if they do not understand what they are told or what they should do.
[2020-01-18 01:20] LABS: Glucose Point of Care 299 (65-105)
[2020-01-18] MEDS: INSULIN ASPART (*BKC) 100 UNITS/ML SUB-Q ×4 (01:20→17:52)
[2020-01-18 01:49] LABS: Reflex Lactic Acid Yes or No Add Lactic
[2020-01-18 02:23] LABS: Basophils Absolute Auto 0.1 K/mm3 (0.0-0.1); Basophils Percent Auto 0.5 % (0.2-1.2); Hematocrit 33.3 % (37.0-47.0); Hemoglobin 10.6 g/dL (12.0-15.0); Immature Granulocyte Absolute 0.03 K/mm3 (0.00-0.031); Immature Granulocyte Percent A 0.3 % (0-0.5); Lymphocytes Absolute Auto 1.45 K/mm3 (0.9-3.2); Lymphocytes Percent Auto 12.2 % (18.3-44.2); Mean Corpuscular HGB Conc 31.8 g/dl (32-36); Mean Corpuscular Hemoglobin 31.2 pg (26-34); Mean Corpuscular Volume 97.9 fl (80-100); Mean Platelet Volume 10.1 fl (7.4-10.4); Monocytes Absolute Auto 0.6 K/mm3 (0.1-0.6); Monocytes Percent Auto 5.3 % (2.6-8.5); Neutrophils Absolute Auto 9.7 K/mm3 (1.3-6.7); Neutrophils Percent Auto 81.7 % (45.5-73.1); Platelet Count Result 239 k/mm3 (150-375); Red Cell Distribution Width 14.2 % (11.5-14.5); White Blood Count 11.9 K/mm3 (4.5-10.0)
[2020-01-18 02:36] LABS: Blood Urea Nitrogen 40 mg/dL (7-17); Calcium 8.8 mg/dL (8.4-10.2); Carbon Dioxide 29 mmol/L (22-30); Chloride 98 mmol/L (98-107); Estimated CRCL calculation 14 ml/min; Estimated Glomerular Filt Rate 11; Glucose 287 mg/dL (65-105); Lactic Acid 2.9 mmol/L (0.7-2.1); Potassium 4.3 mmol/L (3.4-5.0); Sodium 136 mmol/L (137-145)
[2020-01-18 06:26] LABS: Lactic Acid Reflex 1.3 mmol/L (0.7-2.1)
[2020-01-18 06:41] LABS: Add Urine Microscopic? YES; Appearance Urine Clear (Clear); Bacteria Urine Trace /hpf; Bilirubin Urine Negative (Negative); Blood Urine Negative (Negative); Color Urine Straw (Yellow); Glucose Urine UA 3+ mg/dL (Negative); Ketones Urine Trace mg/dL (Negative); Leukocyte Esterase Ur Negative LEU/UL (Negative); Nitrate Urine Negative (Negative); Protein Urine 3+ mg/dL (Negative); Specific Grav Ur 1.025 (1.001-1.035); Squamous Epithelial Cell Urine Few /hpf (Few); Urobilinogen Urine Negative mg/dL (<2.0); WBC Urine 0-3 /hpf
[2020-01-18 09:32] LABS: Glucose Point of Care 260 (65-105)
[2020-01-18] MEDS: ONDANSETRON INJ 4 MG/2 ML VIAL IV PUSH ×2 (11:05→17:52)
[2020-01-18 12:12] LABS: Glucose Point of Care 273 (65-105)
--- NOTE | 2020-01-18 14:25 | CONS_ITS ---
DATE OF CONSULTATION: 01/18/2020 REASON FOR CONSULTATION: Dialysis catheter pain. HISTORY OF PRESENT ILLNESS: The patient is a 44-year-old female with longstanding diabetes mellitus and chronic renal failure. I have seen her multiple times in the past. She was last here in the hospital in November with papilledema and blurred vision. She has since seen Neuro-Ophthalmology. She was in her usual state of health until 3 days before admission when she noted pain in the right clavicular area just proximal to her dialysis catheter insertion site. The latter has been in place for about 4 months prior description. She went to dialysis on schedule 2 days before admission where some redness was also noted by the patient's nurse, according to the patient's description. The pain persisted. She was given antibiotic in dialysis, but the patient is unaware of any additional evaluation or treatment. She was sent home, but present in the hospital here with 1 day of recurrent nausea, vomiting. Here, the patient had blood cultures done. Has been given a single dose of vancomycin, and consultation requested. The patient has been on no other recent antibiotics. No fever, chills, or sweats. ALLERGIES: NONE KNOWN. HABITS: Five cigarettes per day ongoing. PRESENT MEDICATIONS: No immunosuppressants. PAST MEDICAL HISTORY: 1. Chronic renal failure. 2. Type 1 diabetes mellitus. 3. Hyperlipidemia. 4. Hypertension. 5. Previous BKA. 6. Previous chronic osteomyelitis. 7. Previous fistula. 8. BTL. 9. ENT surgeries, orthopedic surgery. REVIEW OF SYSTEMS: Constitutional, skin, respiratory, GI, and cardiovascular negative other than loose bowel movements. No blood. FAMILY HISTORY: Not pertinent to her present illness. SOCIAL HISTORY: She is disabled, lives locally. Does not work outside the home. . PHYSICAL EXAMINATION: GENERAL: This is a female, who appears older than her actual age. No acute distress. VITAL SIGNS: Afebrile since arrival, 176/75, 90, 12, and 97%. SKIN: Warm and dry. EENT: Conjunctivae appear clear. Oral mucosa is well hydrated. NECK: No meningismus. LUNGS: Clear to auscultation. CARDIAC: Regular rate and rhythm. No murmurs or gallops. ABDOMEN: Soft, nontender, nondistended. No organomegaly. EXTREMITIES: No clubbing, cyanosis, or edema. Chest shows a right IJ dialysis catheter, which exits infraclavicular. There is mild tenderness in the tunnel. Erythema is confined to about 5 mm surrounding the insertion site. No crepitus. No expressible pus and no other skin breakdown. LABORATORY DATA: Blood cultures here no growth after very short incubation. White blood cell count 11.9, hemoglobin 10.6, platelets are 239, minimal left shift on differential. She has mild hyponatremia. BUN 40, creatinine 4.3. Accu-Cheks widely variable. Liver function tests normal. Urinalysis, no evidence of infection. RADIOLOGY: Chest x-ray, no active disease. Abdomen and pelvic CT, no acute findings. ASSESSMENT: 1. Nausea and vomiting, perhaps due to systemic infection. 2. Dialysis catheter pain, possible tunnel infection. She has no systemic symptoms of infection other than the nausea and vomiting. The erythema on exam today is unimpressive. 3. Type 1 diabetes mellitus with multiple complications. RECOMMENDATIONS: 1. Vancomycin, target trough 10-15 as appropriate. 2. Get records from her dialysis center regarding prior investigation and treatment. 3. Dialysis catheter is not in need of urgent removal. Thank you very much for asking me to see her. DUSTIN CALVIN M.D. [employer]
[2020-01-18 16:40] LABS: Glucose Point of Care 213 (65-105)
--- NOTE | 2020-01-18 17:38 | PM.IMPN ---
Progress Note: A&P Assessment and Plan (1) Hypertensive urgency: Code(s): I16.0 - Hypertensive urgency Status: Acute Assessment and Plan: Admit to IMU, telemetry, Continue to monitor blood pressure closely. PRN Bolus IV antihypertensives overnight. We will consider transfer to ICU and Cardene IV infusion if necessary. 01/18/20 17:38 patient is a 44-year-old female with history of end-stage renal disease on hemodialysis while at the dialysis center patient had nausea or vomiting and there was a concerned patient dialysis catheter is infected and was started on oral antibiotic, it present time patient denies any abdominal pain nausea or vomiting fever or chills, patient was started on vancomycin empirically. will consult Dr. anna for further recommendation, upon arrival to emergency patient blood pressure was significantly elevated systolic blood pressure over 200 patient was started on IV antihypertensive medication currently is trending down denies any chest pain palpitation or dizziness. (2) Sepsis: Qualifiers: Sepsis type: sepsis due to unspecified organism Sepsis acute organ dysfunction status: without acute organ dysfunction Qualified Code(s): A41.9 - Sepsis, unspecified organism Code(s): A41.9 - Sepsis, unspecified organism Status: Acute Assessment and Plan: Source of sepsis may be bacteremia as her HD catheter insertion site is erythematous. We will initiate Vancomycin IV. Blood cultures have been obtained in the ER. Monitor blood pressure and urine output. Monitor acid-base status closely. (3) Elevated lactic acid level: Code(s): R79.89 - Other specified abnormal findings of blood chemistry Status: Acute Assessment and Plan: May be secondary to sepsis. Monitor acid base status. Check reflex lactic acid. Continue treatment for sepsis. (4) Nausea and vomiting: Qualifiers: Vomiting type: unspecified Vomiting Intractability: non-intractable Qualified Code(s): R11.2 - Nausea with vomiting, unspecified Code(s): R11.2 - Nausea with vomiting, unspecified Status: Acute Assessment and Plan: Antiemetics as needed. NPO overnight. (5) ESRD on dialysis: Code(s): N18.6 - End stage renal disease; Z99.2 - Dependence on renal dialysis Status: Chronic Assessment and Plan: Nephrology has been consulted by ER provider. Continue Nephrology recommendations. (6) Diabetes mellitus: Qualifiers: Diabetes mellitus type: type 1 Diabetes mellitus complication status: with hyperglycemia Qualified Code(s): E10.65 - Type 1 diabetes mellitus with hyperglycemia Code(s): E11.9 - Type 2 diabetes mellitus without complications Status: Chronic Assessment and Plan: accuchecks, SSI coverage, hypoglycemic protocol. (7) Tobacco dependence: Code(s): F17.200 - Nicotine dependence, unspecified, uncomplicated Status: Chronic Assessment and Plan: I have counseled the patient on tobacco cessation for 5 minutes. She verbalized her understanding and agreement of same. Subjective Date/time seen: 01/18/20 17:38 patient is a 44-year-old female with history of end-stage renal disease on hemodialysis while at the dialysis center patient had nausea or vomiting and there was a concerned patient dialysis catheter is infected and was started on oral antibiotic, it present time patient denies any abdominal pain nausea or vomiting fever or chills, patient was started on vancomycin empirically. will consult Dr. anna for further recommendation, upon arrival to emergency patient blood pressure was significantly elevated systolic blood pressure over 200 patient was started on IV antihypertensive medication currently is trending down denies any chest pain palpitation or dizziness. Review of Systems Review of Systems: All systems reviewed & are unremarkable except as noted in HPI and below Exam Narrat
[2020-01-18] MEDS: hydrALAZINE HCL 20 MG/ML VIAL 10 MG IV PUSH (17:52)
[2020-01-18 18:51] LABS: Vancomycin Random 8.2 ug/mL (10-20)
--- NOTE | 2020-01-18 18:58 | PM.CNNEP ---
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 Clinically however and does not appear to be catheter related infection. Lactic acidosis etiology unclear. Patient receiving benefit of doubt and getting antibiotics on an outpatient basis in dialysis unit presumed sepsis on vancomycin plan: - End-stage renal disease: Dialysis supervised - follow-up for ESRD and related - I agree with Dr. Vivas in the the catheter does not look infected nor does the tunnel site except that the exit site is erythematous. Granted that the outpatient antibiotic administration may have dampened an infection manifesting - will follow for ESRD and related needs. 1919 hrs History of Present Illness Reason for Consult Consult date: 01/18/20 Reason for consult: end stage renal disease Chief Complaint Chief complaint: Asked to see for ESRD needs History of Present Illness Narrative: 44-year-old white female with a history of type 1 diabetes mellitus with gastroparesis and end-stage renal disease who comes in with nausea and vomiting and also diarrhea. No abdominal pain described. She has been noted to be hyperglycemic at presentation. It appears that whenever she becomes hyperglycemic she precipitate the gastroparesis symptoms worsening. No abdominal pain has been described. Denies any fevers or chills. The patient also presented with hypertensive urgency as she was not able to keep her medications down. The patient also had some exit site erythema for which she had received outpatient oral antibiotics and also a dose of vancomycin the day prior to admission. There is no discharge. She denies any fevers or chills. She has been admitted for further management to control her blood pressure, her blood sugar, Her diabetic symptoms calmer and also to meet ongoing end-stage renal failure needs. patient has been seen and examined on hemodialysis and hemodialysis supervised. Review of Systems Review of Systems: All systems reviewed & are unremarkable except as noted in HPI and below ( history of presenting illness) [facility] Past Medical History Medical History Acute hyperglycemia Acute kidney injury Acute on chronic kidney failure Amputation of toe Two on the left Anasarca AV fistula Left forearm Chronic kidney disease, stage 3 Chronic osteomyelitis Chronic renal failure, stage 3 (moderate) CKD stage 3 due to type 1 diabetes mellitus Diabetes mellitus DKA (diabetic ketoacidoses) Elevated troponin HTN (hypertension) Hyperlipidemia Hypokalemia Kidney failure Nausea and vomiting Papilledema Pyuria Surgical History Surgical History H/O tubal ligation History of amputation 2 toes on the left History of section, classical X2 History of tonsillectomy and adenoidectomy Hx of myringotomy S/P dialysis catheter insertion Right internal jugular S/P lateral meniscal repair S/P PICC central line placement Now removed S/P rotator cuff repair Family History Family History Unknown Adopted Social History Social History Social History: The patient stated that she has 2 children and she lives with her who she appoints to be her power of sports attorney. She desires to be a full code. She is not currently working she i
--- NOTE | 2020-01-18 22:17 | ECG_ITS ---
Measurements Intervals [place] Rate: 83 P: 53 LA: 162 QRS: -14 QRSD: 101 T: 32 QT: 407 QTc: 480 Interpretive Statements SINUS RHYTHM LEFT ATRIAL ENLARGEMENT INCOMPLETE RIGHT BUNDLE BRANCH BLOCK DELAYED PRECORDIAL R/S TRANSITION BORDERLINE ST-T WAVE ABNORMALITY- INF/HIGH LAT LEADS BORDERLINE ECG Electronically Signed On 01-19-2020 7:37:13 CDT by Misael Ahmadi D.O.
[2020-01-18] MEDS: NITROGLYCERIN SL 0.4 MG TABLET (22:22)
--- NOTE | 2020-01-18 22:43 | PC.NURSE ---
Received report from dialysis nurse that pt was done and was having chest pain and a headache. Pt rates cp as midsternal pressure 6/10. Called MD to report cp and getting ekg and giving nitro. Md returned call and ordered stat troponin. Alerted him that cp was almost relieved by 2 nitro. Gave pt another nitro after call to MD. CP is relieved now.
[2020-01-18] MEDS: ACETAMINOPHEN 325 MG TABLET 650 MG PO (22:46)
[2020-01-18 23:29] LABS: Troponin I 0.033 ng/mL (0.000-0.034)
[2020-01-18 23:51] LABS: Glucose Point of Care 147 (65-105)
[2020-01-19] VITALS (16 sets, daily range): BP systolic 148–199; BP diastolic 56–86; PULSE 76–108; RESP 18–22; TEMP 36.2–37.4; O2SAT 97–100
[2020-01-19 00:03] LABS: Glucose Point of Care 139 (65-105)
[2020-01-19 04:42] LABS: Basophils Absolute Auto 0.1 K/mm3 (0.0-0.1); Basophils Percent Auto 0.7 % (0.2-1.2); Eosinophils Absolute Auto 0.2 K/mm3 (0-0.3); Eosinophils Percent Auto 1.7 % (0-4.4); Hematocrit 35.1 % (37.0-47.0); Hemoglobin 11.1 g/dL (12.0-15.0); Immature Granulocyte Absolute 0.03 K/mm3 (0.00-0.031); Immature Granulocyte Percent A 0.3 % (0-0.5); Lymphocytes Absolute Auto 2.65 K/mm3 (0.9-3.2); Mean Corpuscular HGB Conc 31.6 g/dl (32-36); Mean Platelet Volume 9.5 fl (7.4-10.4); Monocytes Absolute Auto 0.6 K/mm3 (0.1-0.6); Monocytes Percent Auto 5.3 % (2.6-8.5); Neutrophils Absolute Auto 7.1 K/mm3 (1.3-6.7); Platelet Count Result 216 k/mm3 (150-375); Red Blood Count 3.58 M/mm3 (4.2-5.4); Red Cell Distribution Width 14.3 % (11.5-14.5); White Blood Count 10.6 K/mm3 (4.5-10.0)
[2020-01-19 04:57] LABS: Albumin Level 3.2 g/dL (3.5-5.1); Blood Urea Nitrogen 17 mg/dL (7-17); Calcium 8.4 mg/dL (8.4-10.2); Carbon Dioxide 28 mmol/L (22-30); Chloride 96 mmol/L (98-107); Estimated CRCL calculation 20 ml/min; Estimated Glomerular Filt Rate 17; Glucose 153 mg/dL (65-105); Phosphorus 4.4 mg/dL (2.5-4.5); Sodium 133 mmol/L (137-145)
[2020-01-19 05:06] LABS: Troponin I 0.028 ng/mL (0.000-0.034)
[2020-01-19] MEDS: ACETAMINOPHEN 325 MG TABLET 650 MG PO (05:07)
[2020-01-19] MEDS: ONDANSETRON INJ 4 MG/2 ML VIAL IV PUSH ×2 (10:21→19:33)
[2020-01-19] MEDS: hydrALAZINE HCL 20 MG/ML VIAL (10:34)
[2020-01-19 12:25] LABS: Glucose Point of Care 189 (65-105)
--- NOTE | 2020-01-19 12:25 | WPDINFPN2 ---
Progress Note: A&P Assessment and Plan (1) Leukocytosis: Qualifiers: Leukocytosis type: unspecified Qualified Code(s): D72.829 - Elevated white blood cell count, unspecified Code(s): D72.829 - Elevated white blood cell count, unspecified Status: Acute Assessment and Plan: 1. Leukocytosis, mild 2. Catheter pain, no new exam findings. 3. N/V, could well be gastroparesis 4. CRF 5. Type 1 DM with multiple complications REC Await faxed records form [facility]; presumably she has no + BCs from 01/14 as we have not been notified by phone. Continue Vanc # 3, prn, for another day. But if no new findings by tomorrow, stop antibiotic. Subjective Date/time seen: 01/19/20 12:25 Interval history: still with nausea, anorexia, vomiting Exam Narrative: Exam Narrative: afebrile Const: General: in distress Resp: Effort & Inspection: normal respiratory effort Auscultation: clear to auscultation bilaterally Cardio: Rate: regular rate Rhythm: regular rhythm Heart sounds: no murmurs GI: Inspection: non-distended GI Palp: Yes Soft to palpation and No Tenderness to palpation present (GI) Skin: General skin exam: normal color and no rashes or lesions noted Other: catheter exit site and tunnel still with mild tenderness, no erythema beyond the very localized erythema observed yesterday. No crepitus Objective Data Vital Signs Vital Signs: Vital Signs - 24 hr 01/18/20 16:00 01/18/20 19:00 01/18/20 19:11 Temperature 36.3 C L 36.8 C Pulse Rate 92 90 89 Respiratory Rate 12 20 Blood Pressure 187/78 H 159/76 H 159/79 H Pulse Oximetry 96 01/18/20 19:23 01/18/20 19:30 01/18/20 19:45 Temperature 36.4 C Pulse Rate 98 85 85 Respiratory Rate 14 Blood Pressure 150/69 H 154/72 H 162/75 H Pulse Oximetry 98 01/18/20 20:00 01/18/20 20:30 01/18/20 21:00 Temperature Pulse Rate 83 86 81 Respiratory Rate Blood Pressure 157/76 H 162/81 H 153/74 H Pulse Oximetry 01/18/20 21:15 01/18/20 21:30 01/18/20 21:45 Temperature Pulse Rate 82 80 81 Respiratory Rate Blood Pressure 144/68 H 138/63 128/66 Pulse Oximetry 01/18/20 21:49 01/18/20 22:26 01/18/20 22:28 Temperature 36.7 C 36.6 C Pulse Rate 88 88 97 Respiratory Rate 20 20 Blood Pressure 130/64 144/59 H Pulse Oximetry 97 01/18/20 22:50 01/19/20 00:00 01/19/20 02:00 Temperature Pulse Rate 76 82 Respiratory Rate Blood Pressure 123/55 L Pulse Oximetry 01/19/20 04:00 01/19/20 05:43 01/19/20 08:00 Temperature 36.4 C Pulse Rate 82 76 89 Respiratory Rate 18 20 Blood Pressure 148/56 H Pulse Oximetry 97 100 01/19/20 08:29 Temperature 36.2 C L Pulse Rate 82 Respiratory Rate 20 Blood Pressure 199/81 H Pulse Oximetry 100 Intake/Output Intake/Output: Intake & Output 01/16/20 01/17/20 01/18/20 01/19/20 23:59 23:59 23:59 23:59 Intake Total 250 100 Output Total 100 3000 200 Balance -100 -2750 -100 Meds/Results Medications: Active Medications Generic Name Dose Route Start Last Admin Trade Name Petarq PRN Reason Stop Dose Admin Acetaminophen 650 mg 01/18/20 22:33 01/19/20 05:07 Tylenol Tablet PO 650 mg Q6H PRN Administration Mild Pain (1-3) or Fever Dextrose 12.5 gm 01/18/20 00:47 Dextrose 50% Syringe IV PUSH PRN PRN Hypoglycemia Protocol Glucagon 1 mg 01/18/20 00:47 Glucagon For Inj IM PRN PRN Hypoglycemia Protocol Hydralazine HCl 10 mg 01/19/20 10:23 Apresoline Hcl Inj IV PUSH Q8H PRN Blood Pressure - High Dextrose 1,000 mls @ 100 mls/hr 01/18/20 00:47 Dextrose 5% 1,000 Ml IVPB PRN PRN Hypoglycemia Protocol Vancomycin HCl 1,000 mg in 250 mls @ 250 mls/hr 01/18/20 03:21 Vancomycin 1,000 Mg/D5w 250 Ml IVPB PRN PRN Drug Levels Insulin Aspart 2 - 5 units 01/18/20 00:50 01/19/20 05:06 Novolog SUB-Q Not Given Q6H [facility] Protocol Ondansetron HCl
--- NOTE | 2020-01-19 16:28 | PM.IMPN ---
Progress Note: A&P Assessment and Plan (1) Hypertensive urgency: Code(s): I16.0 - Hypertensive urgency Status: Acute Assessment and Plan: Admit to IMU, telemetry, Continue to monitor blood pressure closely. PRN Bolus IV antihypertensives overnight. We will consider transfer to ICU and Cardene IV infusion if necessary. 01/19/20 16:28 patient is a 44-year-old female with history of end-stage renal disease on hemodialysis while at the dialysis center patient had nausea or vomiting and there was a concerned patient dialysis catheter is infected and was started on oral antibiotic, it present time patient denies any abdominal pain nausea or vomiting fever or chills, patient was started on vancomycin empirically. will consult Dr. nana for further recommendation, upon arrival to emergency patient blood pressure was significantly elevated systolic blood pressure over 200 patient was started on IV antihypertensive medication currently is trending down denies any chest pain palpitation or dizziness. patient was seen her identification officer and suspect nausea or vomiting secondary to diabetic gastroparesis, patient is seen by Dr. anna recommended continue vancomycin for now until get record from the dialysis and further recommendation to follow, patient blood pressure still persisting, I have resume her home medication and will monitor (2) Sepsis: Qualifiers: Sepsis acute organ dysfunction status: without acute organ dysfunction Sepsis type: sepsis due to unspecified organism Qualified Code(s): A41.9 - Sepsis, unspecified organism Code(s): A41.9 - Sepsis, unspecified organism Status: Acute Assessment and Plan: Source of sepsis may be bacteremia as her HD catheter insertion site is erythematous. We will initiate Vancomycin IV. Blood cultures have been obtained in the ER. Monitor blood pressure and urine output. Monitor acid-base status closely. (3) Elevated lactic acid level: Code(s): R79.89 - Other specified abnormal findings of blood chemistry Status: Acute Assessment and Plan: May be secondary to sepsis. Monitor acid base status. Check reflex lactic acid. Continue treatment for sepsis. (4) Nausea and vomiting: Qualifiers: Vomiting Intractability: non-intractable Vomiting type: unspecified Qualified Code(s): R11.2 - Nausea with vomiting, unspecified Code(s): R11.2 - Nausea with vomiting, unspecified Status: Acute Assessment and Plan: Antiemetics as needed. NPO overnight. (5) ESRD on dialysis: Code(s): N18.6 - End stage renal disease; Z99.2 - Dependence on renal dialysis Status: Chronic Assessment and Plan: Nephrology has been consulted by ER provider. Continue Nephrology recommendations. (6) Diabetes mellitus: Qualifiers: Diabetes mellitus complication status: with hyperglycemia Diabetes mellitus type: type 1 Qualified Code(s): E10.65 - Type 1 diabetes mellitus with hyperglycemia Code(s): E11.9 - Type 2 diabetes mellitus without complications Status: Chronic Assessment and Plan: accuchecks, SSI coverage, hypoglycemic protocol. (7) Tobacco dependence: Code(s): F17.200 - Nicotine dependence, unspecified, uncomplicated Status: Chronic Assessment and Plan: I have counseled the patient on tobacco cessation for 5 minutes. She verbalized her understanding and agreement of same. Subjective Date/time seen: 01/19/20 16:28 patient is a 44-year-old female with history of end-stage renal disease on hemodialysis while at the dialysis center patient had nausea or vomiting and there was a concerned patient dialysis catheter is infected and was started on oral antibiotic, it present time patient denies any abdominal pain nausea or vomiting fever or chills, patient was started on vancomycin empirically. will consult Dr. anna for further recommendation, upon arrival to emergency pat
[2020-01-19] MEDS: INSULIN ASPART (*BKC) 100 UNITS/ML SUB-Q (18:08)
[2020-01-19] MEDS: METOCLOPRAMIDE HCL 5 MG TABLET PO (18:39)
[2020-01-19 18:50] LABS: Glucose Point of Care 210 (65-105)
[2020-01-19 21:23] LABS: Glucose Point of Care 125 (65-105)
[2020-01-19 23:44] LABS: Glucose Point of Care 153 (65-105)
[2020-01-20] VITALS (20 sets, daily range): BP systolic 102–189; BP diastolic 50–82; PULSE 74–97; RESP 18–20; TEMP 36.1–36.7; O2SAT 97–99
[2020-01-20] MEDS: FUROSEMIDE INJ 40 MG/4 ML VIAL 20 MG IV PUSH (00:35)
[2020-01-20] MEDS: METOPROLOL TARTRATE INJ 5 MG/5 ML VIAL IV PUSH (00:36)
[2020-01-20] MEDS: ONDANSETRON INJ 4 MG/2 ML VIAL IV PUSH ×3 (00:39→10:00)
[2020-01-20 05:06] LABS: Basophils Absolute Auto 0.1 K/mm3 (0.0-0.1); Basophils Percent Auto 0.4 % (0.2-1.2); Eosinophils Absolute Auto 0.1 K/mm3 (0-0.3); Eosinophils Percent Auto 0.4 % (0-4.4); Hematocrit 38.1 % (37.0-47.0); Immature Granulocyte Absolute 0.05 K/mm3 (0.00-0.031); Immature Granulocyte Percent A 0.4 % (0-0.5); Lymphocytes Absolute Auto 2.11 K/mm3 (0.9-3.2); Lymphocytes Percent Auto 17.7 % (18.3-44.2); Mean Corpuscular HGB Conc 31.5 g/dl (32-36); Mean Corpuscular Hemoglobin 30.5 pg (26-34); Mean Corpuscular Volume 96.7 fl (80-100); Mean Platelet Volume 9.7 fl (7.4-10.4); Monocytes Absolute Auto 0.7 K/mm3 (0.1-0.6); Monocytes Percent Auto 6.1 % (2.6-8.5); Neutrophils Absolute Auto 8.9 K/mm3 (1.3-6.7); Platelet Count Result 291 k/mm3 (150-375); Red Blood Count 3.94 M/mm3 (4.2-5.4); White Blood Count 11.9 K/mm3 (4.5-10.0)
[2020-01-20 05:14] LABS: Albumin Level 3.3 g/dL (3.5-5.1); Anion Gap 16.9 mmol/L (7-16); Blood Urea Nitrogen 29 mg/dL (7-17); Calcium 8.5 mg/dL (8.4-10.2); Carbon Dioxide 29 mmol/L (22-30); Chloride 94 mmol/L (98-107); Estimated CRCL calculation 11 ml/min; Estimated Glomerular Filt Rate 9; Glucose 147 mg/dL (65-105); Phosphorus 6.1 mg/dL (2.5-4.5); Potassium 3.9 mmol/L (3.4-5.0); Sodium 136 mmol/L (137-145)
[2020-01-20] MEDS: METOCLOPRAMIDE HCL 5 MG TABLET PO (05:42)
[2020-01-20 05:48] LABS: Glucose Point of Care 145 (65-105)
[2020-01-20] MEDS: METOPROLOL TARTRATE 25 MG TABLET PO (09:57)
--- NOTE | 2020-01-20 10:26 | PM.PNNEP ---
Progress Note: A&P Additional Plan ESRD Gastroparesis, change to IV metoclopramide for now, consider GI consult DM type 1 with hyperglycemia HTN Possible exit site infection Anemia of CKD SHPT Wll d/w Hospitalist team Subjective Date/time seen: 01/20/20 10:26 ESRD f/u Not well Emesis Not eaten since Friday Exam Narrative: Exam Narrative: Non tender abdomen, RRR, lungs clear, soft abdomen, alert, soft abdomen, JVD is not seen Objective Data Vital Signs Vital Signs: Vital Signs - 24 hr 01/19/20 12:00 01/19/20 12:45 01/19/20 14:00 Temperature 36.3 C L Pulse Rate 108 H 93 95 Respiratory Rate 22 H 20 Blood Pressure 183/62 H Pulse Oximetry 97 98 01/19/20 16:00 01/19/20 18:00 01/19/20 20:00 Temperature 36.3 C L 36.4 C L Pulse Rate 108 H 108 H 97 Respiratory Rate 22 H 20 Blood Pressure 199/65 H 158/79 H Pulse Oximetry 97 99 01/19/20 21:29 01/19/20 22:00 01/19/20 23:51 Temperature 36.4 C L 37.4 C Pulse Rate 107 H 102 H 106 H Respiratory Rate 20 18 Blood Pressure 158/79 H 186/86 H Pulse Oximetry 99 97 01/20/20 00:00 01/20/20 00:36 01/20/20 01:49 Temperature Pulse Rate 97 97 Respiratory Rate Blood Pressure 166/82 H Pulse Oximetry 01/20/20 02:00 01/20/20 03:50 01/20/20 04:00 Temperature 36.4 C L Pulse Rate 90 90 86 Respiratory Rate 18 Blood Pressure 144/76 H Pulse Oximetry 97 01/20/20 05:51 01/20/20 08:07 01/20/20 09:57 Temperature 36.1 C L Pulse Rate 95 90 92 Respiratory Rate 20 Blood Pressure 155/75 H Pulse Oximetry 98 Intake/Output Intake/Output: Intake & Output 01/17/20 01/18/20 01/19/20 01/20/20 23:59 23:59 23:59 23:59 Intake Total 250 700 Output Total 100 3000 300 0 Balance -100 -2750 400 0 Meds/Results Medications: Active Medications Generic Name Dose Route Start Last Admin Trade Name Freq PRN Reason Stop Dose Admin Acetaminophen 650 mg 01/18/20 22:33 01/19/20 05:07 Tylenol Tablet PO 650 mg Q6H PRN Administration Mild Pain (1-3) or Fever Amlodipine Besylate 10 mg 01/20/20 09:00 01/20/20 09:57 Norvasc PO Not Given QAM [facility] Atorvastatin Calcium 80 mg 01/19/20 21:00 01/20/20 00:22 Lipitor PO Not Given HS [facility] Dextrose 12.5 gm 01/18/20 00:47 Dextrose 50% Syringe IV PUSH PRN PRN Hypoglycemia Protocol Furosemide 40 mg 01/19/20 17:00 01/20/20 00:21 Lasix Tablet PO Not Given BID JOHNSON Glucagon 1 mg 01/18/20 00:47 Glucagon For Inj IM PRN PRN Hypoglycemia Protocol Heparin Sodium (Porcine) 1,000 units 01/20/20 10:23 Heparin Sodium IV PUSH 01/20/20 10:24 ONCE ONE Heparin Sodium (Porcine) 500 units 01/20/20 10:25 Heparin Sodium IV PUSH 01/20/20 11:26 Q1H JOHNSON Hydralazine HCl 10 mg 01/19/20 10:23 Apresoline Hcl Inj IV PUSH Q8H PRN Blood Pressure - High Dextrose 1,000 mls @ 100 mls/hr 01/18/20 00:47 Dextrose 5% 1,000 Ml IVPB PRN PRN Hypoglycemia Protocol Vancomycin HCl 1,000 mg in 250 mls @ 250 mls/hr 01/18/20 03:21 Vancomycin 1,000 Mg/D5w 250 Ml IVPB PRN PRN Drug Levels Albumin Human 50 mls @ 999 mls/hr 01/20/20 10:23 Albutein IVPB 01/21/20 10:24 Q10M PRN HYPOTENSION Sodium Chloride 1,000 mls @ 999 mls/hr 01/20/20 10:23 Normal Saline Iv IV CONT 01/20/20 11:23 .Q1H1M ONE Sodium Chloride 1,000 mls @ 0 mls/hr 01/20/20 10:23 Normal Saline Iv IV CONT 01/20/20 10:24 .Q0M ONE Per Protocol Insulin Aspart 2 - 5 units 01/18/20 00:50 01/20/20 05:43 Novolog SUB-Q Not Given Q6H [facility] Protocol Metoclopramide HCl 5 mg 01/19/20 21:00 01/20/20 05:42 Reglan PO 5 mg ACHS JOHNSON Administration Metolazone 5 mg 01/19/20 17:00 01/20/20 09:57 Zaroxolyn PO Not Given TID JOHNSON Metoprolol Tartrate 25 mg 01/19/20 21:00 01/20/20 09:57 Lopressor PO 25 mg Q12HR JOHNSON Administration O
[2020-01-20 12:19] LABS: Glucose Point of Care 159 (65-105)
[2020-01-20] MEDS: METOCLOPRAMIDE HCL INJ 10 MG/2 ML VIAL IV PUSH (14:08)
[2020-01-20] MEDS: FUROSEMIDE 80 MG TABLET 40 MG PO (14:09)
--- NOTE | 2020-01-20 14:13 | WPDGICN ---
Assessment and Plan Assessment and plan (1) Nausea and vomiting: Qualifiers: Vomiting type: unspecified Vomiting Intractability: non-intractable Qualified Code(s): R11.2 - Nausea with vomiting, unspecified Code(s): R11.2 - Nausea with vomiting, unspecified Status: Acute Assessment and Plan: probably combination of gastroparesis, uncontrolled HTN and reflux esophagitis last EGD showed mod-severe esophagitis, will repeat EGD tomorrow to assess if healing continue with ppi and reglan, also supportive care (2) Reflux esophagitis: Code(s): K21.0 - Gastro-esophageal reflux disease with esophagitis Status: Acute Assessment and Plan: continue with ppi (3) ESRD on hemodialysis: Code(s): N18.6 - End stage renal disease; Z99.2 - Dependence on renal dialysis Status: Acute Assessment and Plan: nephrology on board (4) Gastroparesis due to DM: Code(s): E11.43 - Type 2 diabetes mellitus with diabetic autonomic (poly)neuropathy; K31.84 - Gastroparesis Status: Acute Assessment and Plan: she has been using reglan (5) Elevated lactic acid level: Code(s): R79.89 - Other specified abnormal findings of blood chemistry Status: Acute Assessment and Plan: on admission but normalized, no acidosis now. (6) Hypertensive urgency: Code(s): I16.0 - Hypertensive urgency Status: Acute Assessment and Plan: on treatment now GI Consult Note Consult date/time: 01/20/20 14:13 Reason for consult: persistent nausea and vomiting HPI: Pamela Bhat is a 44 year old female with history of type 1 diabetes, ESRD on dialysis, peripheral vascular disease, osteomyelitis on the left foot s/p surgery with multiple hospitalizations for either DKA, N/V, etc. Dr Ramirez performed EGD in June of 2019 that showed LA-C distal esophagitis, she also has been diagnosed with gastroparesis (apparently had gastric emptying study at [place]) using reglan in daily basis. She is here with persistent nausea and vomiting last few days. Denies any fevers or chills. In the ER also had hypertensive urgency as she was not able to keep her medications down. Liver enzymes, lipase normal. CT scan a/p and head without acute findings. Review of Systems Constitutional: Constitutional: Denies chills and Denies headache(s) Eyes: Eyes: Reports no additional eye complaints ENT: Reports Normal hearing present, Denies headache(s) and Denies neck pain Cardiovascular: Cardiovascular: Denies chest pain and Denies dyspnea Respiratory: Respiratory: Denies dyspnea Gastrointestinal: Gastrointestinal: Reports nausea and Reports vomiting Genitourinary: Genitourinary: Denies dysuria Musculoskeletal: Musculoskeletal: Denies neck pain Integumentary/Breasts: Skin/Breast: Denies dry skin Neurologic: Reports Normal hearing present, Denies headache(s) and Denies weakness Psychiatric: Psychiatric: Reports anxiety Endocrine: Endocrine: Denies change in body appearance Hematologic/Lymphatic: Hematologic/Lymphatic: Denies easy bleeding Allergic/Immunologic: Allergic/Immunologic: Denies urticaria PMFSH Past Medical History Medical History Acute hyperglycemia Acute kidney injury Acute on chronic kidney failure Amputation of toe Two on the left Anasarca AV fistula Left forearm Chronic kidney disease, stage 3 Chronic osteomyelitis Chronic renal failure, stage 3 (moderate) CKD stage 3 due to type 1 diabetes mellitus Diabetes mellitus DKA (diabetic ketoacidoses) Elevated troponin HTN (hypertension) Hyperlipidemia Hypokalemia Kidney failure Nausea and vomiting Papilledema Pyuria Surgical History Surgical History H/O tubal ligation History of amputation 2 toes on the left History of section, classical X2 History of tonsillectomy an
--- NOTE | 2020-01-20 14:19 | WPDINFPN2 ---
Progress Note: A&P Assessment and Plan (1) Leukocytosis: Qualifiers: Leukocytosis type: unspecified Qualified Code(s): D72.829 - Elevated white blood cell count, unspecified Code(s): D72.829 - Elevated white blood cell count, unspecified Status: Acute Assessment and Plan: 1. Leukocytosis, mild 2. Catheter pain and redness, no new exam findings. Suspect early cellulitis, without tip infection, that has been fully treated with antibiotic to date. 3. N/V, could well be gastroparesis 4. CRF 5. Type 1 DM with multiple complications REC Stop vancomycin, clinical f/u. Will see prn, thanks. Subjective Date/time seen: 01/20/20 14:19 Interval history: nausea. No fever. I reviewed [facility] records: 4 HD sessions last week, and on the final session 01/14 new erythema noted at catheter site, Vanc single dose given. No other signs of infection during her visits. No BCs done Exam Narrative: Exam Narrative: afebrile Const: General: no acute distress and uncomfortable Eyes: General: appearance normal, both eyes and all related structures Neck: Other: no edema at R IJ Resp: Effort & Inspection: normal respiratory effort Auscultation: clear to auscultation bilaterally Cardio: Rate: regular rate Rhythm: regular rhythm Skin: General skin exam: no rashes or lesions noted Other: no tenderness at tunnel. Erythema limited as before, no pus nor blood, no edema no crepitus Objective Data Vital Signs Vital Signs: Vital Signs - 24 hr 01/19/20 16:00 01/19/20 18:00 01/19/20 20:00 Temperature 36.3 C L 36.4 C L Pulse Rate 108 H 108 H 97 Respiratory Rate 22 H 20 Blood Pressure 199/65 H 158/79 H Pulse Oximetry 97 99 01/19/20 21:29 01/19/20 22:00 01/19/20 23:51 Temperature 36.4 C L 37.4 C Pulse Rate 107 H 102 H 106 H Respiratory Rate 20 18 Blood Pressure 158/79 H 186/86 H Pulse Oximetry 99 97 01/20/20 00:00 01/20/20 00:36 01/20/20 01:49 Temperature Pulse Rate 97 97 Respiratory Rate Blood Pressure 166/82 H Pulse Oximetry 01/20/20 02:00 01/20/20 03:50 01/20/20 04:00 Temperature 36.4 C L Pulse Rate 90 90 86 Respiratory Rate 18 Blood Pressure 144/76 H Pulse Oximetry 97 01/20/20 05:51 01/20/20 08:00 01/20/20 08:07 Temperature 36.1 C L Pulse Rate 95 88 90 Respiratory Rate 20 Blood Pressure 155/75 H Pulse Oximetry 98 01/20/20 09:57 01/20/20 10:00 01/20/20 12:00 Temperature Pulse Rate 92 86 77 Respiratory Rate 20 Blood Pressure Pulse Oximetry 98 01/20/20 12:22 Temperature 36.3 C L Pulse Rate 78 Respiratory Rate 20 Blood Pressure 178/65 H Pulse Oximetry 98 Intake/Output Intake/Output: Intake & Output 01/17/20 01/18/20 01/19/20 01/20/20 23:59 23:59 23:59 23:59 Intake Total 250 700 Output Total 100 3000 300 0 Balance -100 -2750 400 0 Meds/Results Medications: Active Medications Generic Name Dose Route Start Last Admin Trade Name Freq PRN Reason Stop Dose Admin Acetaminophen 650 mg 01/18/20 22:33 01/19/20 05:07 Tylenol Tablet PO 650 mg Q6H PRN Administration Mild Pain (1-3) or Fever Amlodipine Besylate 10 mg 01/20/20 09:00 01/20/20 09:57 Norvasc PO Not Given QAM [facility] Atorvastatin Calcium 80 mg 01/19/20 21:00 01/20/20 00:22 Lipitor PO Not Given HS [facility] Dextrose 12.5 gm 01/18/20 00:47 Dextrose 50% Syringe IV PUSH PRN PRN Hypoglycemia Protocol Furosemide 40 mg 01/19/20 17:00 01/20/20 14:09 Lasix Tablet PO 40 mg BID JOHNSON Administration Glucagon 1 mg 01/18/20 00:47 Glucagon For Inj IM PRN PRN Hypoglycemia Protocol Hydralazine HCl 10 mg 01/19/20 10:23 Apresoline Hcl Inj IV PUSH Q8H PRN Blood Pressure - High Dextrose 1,000 mls @ 100 mls/hr 01/18/20 00:47 Dextrose 5% 1,000 Ml IVPB PRN PRN Hypoglycemia Protocol Vancomycin HCl 1,000 mg in 250 mls @ 250 mls/hr 01/18/20 03:21 Piyush
--- NOTE | 2020-01-20 16:51 | WPDANESEPP ---
Anes - Eval Pre Procedure Procedure: Operation Date: 01/21/20 12:00 Proposed Procedures p Esophagogastroduodenoscopy - Tahir Donohue MD Date/Time: 01/20/20 16:51 Preop Diagnosis: Nausea vomiting Pre Op Diagnosis: Asked to see for ESRD needs Patient Data Age: 44 Gender: F Height: 5 ft 5 in Weight: 63.7 kg Last Vital Signs Temp 97.4 F L 01/20/20 12:22 Pulse 74 01/20/20 14:00 Resp 20 01/20/20 12:22 BP 178/65 H 01/20/20 12:22 Pulse Ox 98 01/20/20 12:22 Allergies Allergy/AdvReac Type Severity Reaction Status Date / Time No Known Drug Allergies Allergy Unknown Verified 01/17/20 23:02 Home Medications Medication Instructions Recorded Confirmed Type atorvastatin 80 mg PO HS 06/05/19 01/18/20 History acetaminophen [Mapap 650 mg PO Q4H PRN #60 tablet 06/09/19 01/18/20 Rx (acetaminophen)] Basaglar KwikPen U-100 Insulin 17 unit SUBCUT HS 10/02/19 01/18/20 History metolazone 5 mg PO TID 10/19/19 01/18/20 History amlodipine [Norvasc] 10 mg PO QAM #30 tablet 12/10/19 01/18/20 Rx furosemide 40 mg PO BID #0 tablet 12/10/19 01/18/20 Rx insulin aspart U-100 [Novolog 7 unit SUB-Q TIDWM #0 ml 12/10/19 01/18/20 Rx Flexpen U-100 Insulin] metoclopramide HCl 5 mg PO ACHS #120 tablet 12/10/19 01/18/20 Rx metoprolol tartrate 25 mg PO Q12HR #60 tablet 12/10/19 01/18/20 Rx ondansetron 4 mg PO Q8H PRN 3 Days #9 tablet 12/10/19 01/18/20 Rx pantoprazole 40 mg PO Q12HR #60 tablet 12/10/19 01/18/20 Rx Laboratory Tests 01/19/20 01/19/20 01/19/20 17:59 21:18 23:32 WBC RBC Hgb Hct MCV MCH MCHC RDW Plt Count MPV Immature Gran % (Auto) Neut % (Auto) Lymph % (Auto) [place] % (Auto) Eos % (Auto) Baso % (Auto) Lymph # (Auto) [place] # (Auto) Eos # (Auto) Baso # (Auto) Abs Immat Gran (auto) Absolute Neuts (auto) Absolute Nucleated RBC Nucleated RBC % Sodium Potassium Chloride Carbon Dioxide Anion Gap BUN Creatinine Estim Creat Clear Calc Estimated GFR Glucose POC Capillary Glucose 210 mg/dl H mg/dl 125 mg/dl H mg/dl 153 mg/dl H mg/dl (65-105) (65-105) (65-105) Calcium Phosphorus Albumin 01/20/20 01/20/20 01/20/20 04:35 04:35 05:41 WBC 11.9 K/mm3 H K/mm3 (4.5-10.0) RBC 3.94 M/mm3 L M/mm3 (4.2-5.4) Hgb 12.0 g/dL g/dL (12.0-15.0) Hct 38.1 % % (37.0-47.0) MCV 96.7 fl fl (80-100) MCH 30.5 pg pg (26-34) MCHC 31.5 g/dl L g/dl (32-36) RDW 14.0 % % (11.5-14.5) Plt Count 291 k/mm3 k/mm3 (150-375) MPV 9.7 fl fl (7.4-10.4) Immature Gran % (Auto) 0.4 % % (0-0.5) Neut % (Auto) 75.0 % H % (45.5-73.1) Lymph % (Auto) 17.7 % L % (18.3-44.2) [place] % (Auto) 6.1 % % (2.6-8.5) Eos % (Auto) 0.4 % % (0-4.4) Baso % (Auto) 0.4 % % (0.2-1.2) Lymph # (Auto) 2.11 K/mm3 K/mm3 (0.9-3.2) [place] # (Auto) 0.7 K/mm3 H K/mm3 (0.1-0.6) Eos # (Auto) 0.1 K/mm3 K/mm3 (0-0.3) Baso # (Auto) 0.1 K/mm3 K/mm3 (0.0-0.1) Abs Immat Gran (auto) 0.05 K/mm3 H K/mm3 (0.00-0.031) Absolute Neuts (auto) 8.9 K/mm3 H K/mm3 (1.3-6.7) Absolute Nucleated RBC 0.0 K/mm3 K/mm3 (0.0-0.012) Nucleated RBC % 0.0 % % (0.0-0.2) Sodium 136 mmol/L L mmol/L (137-145) Potassium 3.9 mmol/L mmol/L (3.4-5.0) Chloride 94 mmol/L L mmol/L (98-107) Carbon Dioxide 29 mmol/L mmol/L (22-30) Ani
--- NOTE | 2020-01-20 16:59 | PM.IMPN ---
Progress Note: A&P Assessment and Plan (1) Hypertensive urgency: Code(s): I16.0 - Hypertensive urgency Status: Acute Assessment and Plan: Admit to IMU, telemetry, Continue to monitor blood pressure closely. PRN Bolus IV antihypertensives overnight. We will consider transfer to ICU and Cardene IV infusion if necessary. 01/20/20 16:59 patient is a 44-year-old female with history of end-stage renal disease on hemodialysis while at the dialysis center patient had nausea or vomiting and there was a concerned patient dialysis catheter is infected and was started on oral antibiotic, it present time patient denies any abdominal pain nausea or vomiting fever or chills, patient was started on vancomycin empirically. will consult Dr. vivas for further recommendation, upon arrival to emergency patient blood pressure was significantly elevated systolic blood pressure over 200 patient was started on IV antihypertensive medication currently is trending down denies any chest pain palpitation or dizziness. patient was seen her brick tender and suspect nausea or vomiting secondary to diabetic gastroparesis, patient is seen by Dr. vivas recommended continue vancomycin for now until get record from the dialysis, today on 01/19 patient was seen by Dr. Vivas does not suspect infected dialysis catheter and stopped antibiotic, patient nausea or vomiting still persist most likely secondary to diabetic gastroparesis on Reglan 10mg IV q.8, seen by GI patient will have a EGD tomorrow further evaluate further recommendation to follow, and will have scheduled dialysis (2) Sepsis: Qualifiers: Sepsis type: sepsis due to unspecified organism Sepsis acute organ dysfunction status: without acute organ dysfunction Qualified Code(s): A41.9 - Sepsis, unspecified organism Code(s): A41.9 - Sepsis, unspecified organism Status: Acute Assessment and Plan: Source of sepsis may be bacteremia as her HD catheter insertion site is erythematous. We will initiate Vancomycin IV. Blood cultures have been obtained in the ER. Monitor blood pressure and urine output. Monitor acid-base status closely. (3) Elevated lactic acid level: Code(s): R79.89 - Other specified abnormal findings of blood chemistry Status: Acute Assessment and Plan: May be secondary to sepsis. Monitor acid base status. Check reflex lactic acid. Continue treatment for sepsis. (4) Nausea and vomiting: Qualifiers: Vomiting type: unspecified Vomiting Intractability: non-intractable Qualified Code(s): R11.2 - Nausea with vomiting, unspecified Code(s): R11.2 - Nausea with vomiting, unspecified Status: Acute Assessment and Plan: Antiemetics as needed. NPO overnight. (5) ESRD on dialysis: Code(s): N18.6 - End stage renal disease; Z99.2 - Dependence on renal dialysis Status: Chronic Assessment and Plan: Nephrology has been consulted by ER provider. Continue Nephrology recommendations. (6) Diabetes mellitus: Qualifiers: Diabetes mellitus type: type 1 Diabetes mellitus complication status: with hyperglycemia Qualified Code(s): E10.65 - Type 1 diabetes mellitus with hyperglycemia Code(s): E11.9 - Type 2 diabetes mellitus without complications Status: Chronic Assessment and Plan: accuchecks, SSI coverage, hypoglycemic protocol. (7) Tobacco dependence: Code(s): F17.200 - Nicotine dependence, unspecified, uncomplicated Status: Chronic Assessment and Plan: I have counseled the patient on tobacco cessation for 5 minutes. She verbalized her understanding and agreement of same. Subjective Date/time seen: 01/20/20 16:59 patient is a 44-year-old female with history of end-stage renal disease on hemodialysis while at the dialysis center patient had nausea or vomiting and there was a concerned patient dialysis catheter is infected and was started on oral ant
[2020-01-20 17:07] LABS: Glucose Point of Care 188 (65-105)
[2020-01-20] MEDS: hydrALAZINE HCL 20 MG/ML VIAL 10 MG IV PUSH (18:13)
[2020-01-20] MEDS: metOLazone 5 MG TABLET PO (18:25)
--- NOTE | 2020-01-20 20:43 | PC.NURSE ---
This patient left the floor and went to hemodialysis upstairs at 2039 on 01/20/20.
[2020-01-21] VITALS (15 sets, daily range): BP systolic 98–168; BP diastolic 51–90; PULSE 63–89; RESP 16–18; TEMP 36.4–37.1; O2SAT 97–100
[2020-01-21] MEDS: ATORVASTATIN 40 MG TABLET 80 MG PO (00:03)
[2020-01-21] MEDS: PANTOPRAZOLE 40 MG TABLET PO (00:04)
[2020-01-21] MEDS: METOPROLOL TARTRATE 25 MG TABLET PO ×2 (00:04→09:22)
[2020-01-21] MEDS: METOCLOPRAMIDE HCL INJ 10 MG/2 ML VIAL IV PUSH ×3 (00:04→14:20)
--- NOTE | 2020-01-21 00:08 | PC.NURSE ---
patient arrived back to room 212-01 from hemodialysis at 0000 01/21/20
[2020-01-21 00:15] LABS: Glucose Point of Care 286 (65-105)
[2020-01-21] MEDS: INSULIN ASPART (*BKC) 100 UNITS/ML SUB-Q (00:17)
[2020-01-21 05:13] LABS: Basophils Percent Auto 0.4 % (0.2-1.2); Eosinophils Absolute Auto 0.1 K/mm3 (0-0.3); Eosinophils Percent Auto 1.5 % (0-4.4); Hematocrit 30.6 % (37.0-47.0); Hemoglobin 9.8 g/dL (12.0-15.0); Immature Granulocyte Absolute 0.02 K/mm3 (0.00-0.031); Immature Granulocyte Percent A 0.2 % (0-0.5); Lymphocytes Absolute Auto 2.38 K/mm3 (0.9-3.2); Lymphocytes Percent Auto 26.7 % (18.3-44.2); Mean Corpuscular Hemoglobin 30.5 pg (26-34); Mean Corpuscular Volume 95.3 fl (80-100); Mean Platelet Volume 9.7 fl (7.4-10.4); Monocytes Absolute Auto 0.7 K/mm3 (0.1-0.6); Monocytes Percent Auto 7.7 % (2.6-8.5); Neutrophils Absolute Auto 5.7 K/mm3 (1.3-6.7); Neutrophils Percent Auto 63.5 % (45.5-73.1); Platelet Count Result 195 k/mm3 (150-375); Red Blood Count 3.21 M/mm3 (4.2-5.4); Red Cell Distribution Width 13.4 % (11.5-14.5); White Blood Count 8.9 K/mm3 (4.5-10.0)
[2020-01-21 05:29] LABS: Albumin Level 2.7 g/dL (3.5-5.1); Anion Gap 11.6 mmol/L (7-16); Blood Urea Nitrogen 29 mg/dL (7-17); Calcium 7.5 mg/dL (8.4-10.2); Carbon Dioxide 31 mmol/L (22-30); Chloride 92 mmol/L (98-107); Estimated CRCL calculation 12 ml/min; Estimated Glomerular Filt Rate 10; Glucose 192 mg/dL (65-105); Phosphorus 5.4 mg/dL (2.5-4.5); Potassium 3.6 mmol/L (3.4-5.0); Sodium 131 mmol/L (137-145)
[2020-01-21 05:36] LABS: Glucose Point of Care 193 (65-105)
[2020-01-21] MEDS: metOLazone 5 MG TABLET PO ×2 (09:22→14:19)
[2020-01-21] MEDS: amLODIPine BESYLATE 5 MG TABLET 10 MG PO (09:22)
[2020-01-21] MEDS: FUROSEMIDE 80 MG TABLET 40 MG PO (09:22)
[2020-01-21] MEDS: SODIUM CHLORIDE 0.9% IV 500 ML 10 ML IV CONT (11:41)
[2020-01-21 12:37] LABS: Glucose Point of Care 199 (65-105)
--- NOTE | 2020-01-21 17:41 | PM.DS ---
DS: Admitting Diagnosis Admitting Diagnosis Admitting Diagnosis: Sepsis, unspecified organism DS: Discharge Diagnosis Discharge Diagnosis (1) Hypertensive urgency: Code(s): I16.0 - Hypertensive urgency Status: Acute Assessment and Plan: Admit to IMU, telemetry, Continue to monitor blood pressure closely. PRN Bolus IV antihypertensives overnight. We will consider transfer to ICU and Cardene IV infusion if necessary. 01/20/20 16:59 patient is a 44-year-old female with history of end-stage renal disease on hemodialysis while at the dialysis center patient had nausea or vomiting and there was a concerned patient dialysis catheter is infected and was started on oral antibiotic, it present time patient denies any abdominal pain nausea or vomiting fever or chills, patient was started on vancomycin empirically. will consult Dr. vivas for further recommendation, upon arrival to emergency patient blood pressure was significantly elevated systolic blood pressure over 200 patient was started on IV antihypertensive medication currently is trending down denies any chest pain palpitation or dizziness. 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 vivas recommended continue vancomycin for now until get record from the dialysis, today on 01/19 patient was seen by Dr. Vivas does not suspect infected dialysis catheter and stopped antibiotic, patient nausea or vomiting still persist most likely secondary to diabetic gastroparesis on Reglan 10mg IV q.8, seen by GI patient will have a EGD tomorrow further evaluate further recommendation to follow, and will have scheduled dialysis (2) Sepsis: Qualifiers: Sepsis type: sepsis due to unspecified organism Sepsis acute organ dysfunction status: without acute organ dysfunction Qualified Code(s): A41.9 - Sepsis, unspecified organism Code(s): A41.9 - Sepsis, unspecified organism Status: Acute Assessment and Plan: Source of sepsis may be bacteremia as her HD catheter insertion site is erythematous. We will initiate Vancomycin IV. Blood cultures have been obtained in the ER. Monitor blood pressure and urine output. Monitor acid-base status closely. (3) Elevated lactic acid level: Code(s): R79.89 - Other specified abnormal findings of blood chemistry Status: Acute Assessment and Plan: May be secondary to sepsis. Monitor acid base status. Check reflex lactic acid. Continue treatment for sepsis. (4) Nausea and vomiting: Qualifiers: Vomiting type: unspecified Vomiting Intractability: non-intractable Qualified Code(s): R11.2 - Nausea with vomiting, unspecified Code(s): R11.2 - Nausea with vomiting, unspecified Status: Acute Assessment and Plan: Antiemetics as needed. NPO overnight. (5) ESRD on dialysis: Code(s): N18.6 - End stage renal disease; Z99.2 - Dependence on renal dialysis Status: Chronic Assessment and Plan: Nephrology has been consulted by ER provider. Continue Nephrology recommendations. (6) Diabetes mellitus: Qualifiers: Diabetes mellitus type: type 1 Diabetes mellitus complication status: with hyperglycemia Qualified Code(s): E10.65 - Type 1 diabetes mellitus with hyperglycemia Code(s): E11.9 - Type 2 diabetes mellitus without complications Status: Chronic Assessment and Plan: accuchecks, SSI coverage, hypoglycemic protocol. (7) Tobacco dependence: Code(s): F17.200 - Nicotine dependence, unspecified, uncomplicated Status: Chronic Assessment and Plan: I have counseled the patient on tobacco cessation for 5 minutes. She verbalized her understanding and agreement of same. DS: Summary Hospital Course Reason for hospitalization: Chief complaint: hypertensive urgency Narrative: This is a diabetic 44 year old female with known ESRD on HD //
== END 2020-01-21 18:25 | disposition home or self-care (01) | DRG 304 ==
LOC: ANHED 22:38 → ANHIMU 23:14
PROVIDERS: Internal Medicine Gastroenterology; Admitting Provider Family Medicine; Emergency Provider Emergency Medicine; PCP Internal Medicine; Visit Provider Family Medicine
PROC: 0DJ08ZZ Inspection of Upper Intestinal Tract, Via Natural or Artificial Opening Endoscopic (ICD-10-PCS; CPT 43235; principal; 2020-01-21 12:00)
DX: I16.0 Hypertensive urgency (principal); N18.6 End stage renal disease; T82.848A Pain due to vascular prosthetic devices, implants and grafts, initial encounter; I12.0 Hypertensive chronic kidney disease with stage 5 chronic kidney disease or end stage renal disease; E10.51 Type 1 diabetes mellitus with diabetic peripheral angiopathy without gangrene; E10.43 Type 1 diabetes mellitus with diabetic autonomic (poly)neuropathy; K31.84 Gastroparesis; D63.1 Anemia in chronic kidney disease; E10.22 Type 1 diabetes mellitus with diabetic chronic kidney disease; E10.65 Type 1 diabetes mellitus with hyperglycemia; K21.0 Gastro-esophageal reflux disease with esophagitis; G89.18 Other acute postprocedural pain; F17.210 Nicotine dependence, cigarettes, uncomplicated; R79.89 Other specified abnormal findings of blood chemistry; Z89.422 Acquired absence of other left toe(s); Z99.2 Dependence on renal dialysis
CPT/HCPCS: 36415; 70450; 71045; 74177; 80048; 80053; 80069; 80202; 81001; 83605; 83690; 84484; 85025; 87040; 88305; 93005; 96365; 96374; 96375; 99285; A9270; G0378; J0360; J1815; J1940; J2405; J2704; J2765; J3370; J7030; J7040; Q9967

== ENCOUNTER 2020-08-04 19:46 | Observation (INO) | payer OTHER, MEDICAID, SELFPAY ==
[2020-08-04] VITALS (21 sets, daily range): BP systolic 157–179; BP diastolic 67–130; PULSE 86–111; RESP 11–39; TEMP 36.9; O2SAT 90–95
--- NOTE | ~2020-08-04 | CT_ITS ---
EXAMINATION: CT brain wo con DATE: 08/06/2020 11:42 INDICATION: Left upper extremity numbness and tingling. TECHNIQUE: Computed tomography (CT) of the head was performed without intravenous contrast. The mA wa s adjusted according to patient size. Iterative reconstruction technique was employed. The dose-lengt h product was 681.00 mGy-cm. COMPARISON: Head CT 01/19/2020, brain MRI 12/21/2019 FINDINGS: The cerebellar tonsils extend 16 mm inferior to the foramen magnum, consistent with Chiari I malformation. There is no intracranial hemorrhage, acute infarction, or abnormal intracranial mass lesion. There is an old lacunar infarct in right caudate nucleus. There are scattered areas of low at tenuation in the cerebral white matter. The ventricles are normal in size. There are likely changes o f right ocular lens replacement surgery. The paranasal sinuses are clear. There is a small right mast oid effusion. IMPRESSION: 1. Chiari I malformation. 2. Old lacunar infarct in right caudate nucleus. 3. Stable mild nonspecific cerebral white matter disease, which likely represents chronic small vesse l ischemic disease. Reviewed, dictated and finalized at location A. NDS SUPERVISOR IMPRESSION: 1. Chiari I malformation. 2. Old lacunar infarct in right caudate nucleus. 3. Stable mild nonspecific cerebral white matter disease, which likely represen ts chronic small vessel ischemic disease.
--- NOTE | ~2020-08-04 | XR_ITS ---
XR chest 2V 08/04/2020 21:02 Indication: Shortness of breath. Hypertension. Procedure: AP and lateral views of the chest Comparison: 01/17/2020 Findings: There is right lower lobe pneumonia with small right pleural effusion. Left basilar atelect asis. Heart size upper normal. No edema or pneumothorax. Impression: 1: Right lower lobe pneumonia with small right effusion. Reviewed, dictated and finalized at location A. CULAR GENETICIST Impression: 1: Right lower lobe pneumonia with small right effusion.
--- NOTE | 2020-08-04 19:58 | ED.SOB ---
HPI - SOB/Dyspnea General Chief Complaint: Shortness of Breath/Dyspnea Stated Complaint: SOB,SWELLING MISSED DIALYSIS TODAY Time Seen by Provider: 08/04/20 19:50 Source: patient Mode of arrival: ambulatory Limitations: no limitations History of Present Illness HPI Narrative: Patient is a 44-year-old female complaining of shortness of breath that started yesterday and worse today, missed her dialysis for the past 2 days, supposed to have dialysis every day this week per her sat act instructor recommendation due to increased fluid retention, her usual dialysis schedule is Tuesdays and Saturdays.. Patient also complaining of nausea and vomiting today I cannot keep anything down . Patient denies any chest pain, abdominal pain, diarrhea, fever or chills. Related Data Home Medications Medication Instructions Recorded Confirmed atorvastatin 80 mg PO HS 06/05/19 01/18/20 Basaglar KwikPen U-100 Insulin 17 unit SUBCUT HS 10/02/19 01/18/20 metolazone 5 mg PO TID 10/19/19 01/18/20 Allergies Allergy/AdvReac Type Severity Reaction Status Date / Time No Known Drug Allergies Allergy Unknown Verified 01/17/20 23:02 Review of Systems Review of Systems: All systems reviewed & are unremarkable except as noted in HPI and below Constitutional: Constitutional: Denies body ache(s), Denies chills, Denies excessive sweating, Denies fatigue, Denies fever(s), Denies headache(s), Denies lethargy, Denies malaise, Denies weakness and Denies weight loss Eyes: Eyes: Denies blurry vision, Denies change in vision and Denies loss of vision ENT: Denies dizziness, Denies ear discharge, Denies headache(s), Denies lip swelling, Denies epistaxis, Denies nasal congestion, Denies neck pain, Denies throat swelling and Denies tongue swelling Cardiovascular: Cardiovascular: Denies chest pain, Denies chest pain at rest, Denies chest pain with activity, Denies diaphoresis, Denies rapid heart rate, Denies edema, Denies irregular heart rhythm, Denies lightheadedness and Denies palpitations Respiratory: Respiratory: Denies chest congestion, Denies cough and Denies hemoptysis Gastrointestinal: Gastrointestinal: Denies abdominal pain, Denies melena, Denies hematochezia, Denies diarrhea and Denies hematemesis Musculoskeletal: Musculoskeletal: Denies abnormal gait, Denies deformity, Denies joint swelling, Denies limited range of motion, Denies neck pain and Denies numbness Neurologic: Denies Abnormal speech present, Denies abnormal gait, Denies confusion, Denies dizziness, Denies headache(s), Denies focal weakness, Denies loss of vision, Denies numbness, Denies Other visual disturbances, Denies Sensory deficit (Neuro) and Denies weakness Psychiatric: Psychiatric: Denies confusion, Denies depression, Denies auditory hallucinations, Denies homicidal ideation and Denies suicidal ideation Endocrine: Endocrine: Denies cold intolerance, Denies excessive sweating, Denies fatigue, Denies heat intolerance and Denies palpitations Hematologic/Lymphatic: Hematologic/Lymphatic: Denies easy bleeding and Denies easy bruising Allergic/Immunologic: Allergic/Immunologic: Denies lip swelling, Denies throat swelling and Denies tongue swelling PMFSH Past Medical History Medical History (Updated 08/04/20 @ 21:32 by Stefan Dunbar MD) Acute hyperglycemia Acute kidney injury Acute on chronic kidney failure Amputation of toe Two on the left Anasarca AV fistula Left forearm Chronic kidney disease, stage 3 Chronic osteomyelitis Chronic renal failure, stage 3 (moderate) CKD stage 3 due to type 1 diabetes mellitus Diabetes mellitus DKA (diabetic ketoacidoses) Elevated troponin Gastroparesis due to DM HTN (hypertension) Hyperlipidemia Hypokalemia Kidney failure Nausea and vomiting Papilledema Pyuria Surgical History Surgical History H/O tubal ligation History of amputation 2 toes on the left History of section,
[2020-08-04 20:27] LABS: Basophils Absolute Auto 0.1 K/mm3 (0.0-0.1); Basophils Percent Auto 0.4 % (0.2-1.2); Eosinophils Percent Auto 0.2 % (0-4.4); Hematocrit 36.2 % (37.0-47.0); Hemoglobin 11.6 g/dL (12.0-15.0); Immature Granulocyte Absolute 0.06 K/mm3 (0.00-0.031); Immature Granulocyte Percent A 0.5 % (0-0.5); Lymphocytes Absolute Auto 1.43 K/mm3 (0.9-3.2); Lymphocytes Percent Auto 11.3 % (18.3-44.2); Mean Corpuscular Hemoglobin 32.7 pg (26-34); Mean Platelet Volume 10.3 fl (7.4-10.4); Monocytes Absolute Auto 0.7 K/mm3 (0.1-0.6); Monocytes Percent Auto 5.1 % (2.6-8.5); Neutrophils Absolute Auto 10.5 K/mm3 (1.3-6.7); Neutrophils Percent Auto 82.5 % (45.5-73.1); Nucleated Red Blood Cells Perc 0.2 % (0.0-0.2); Platelet Count Result 235 k/mm3 (150-375); Red Blood Count 3.55 M/mm3 (4.2-5.4); Red Cell Distribution Width 15.4 % (11.5-14.5); White Blood Count 12.7 K/mm3 (4.5-10.0)
[2020-08-04 20:41] LABS: Alanine Aminotransferase 53 U/L (4-35); Albumin Level 4.1 g/dL (3.5-5.1); Alkaline Phosphatase 120 U/L (38-126); Anion Gap 13 mmol/L (8-16); Aspartate Amino Transferase 30 U/L (14-36); Bilirubin,Total 0.7 mg/dL (0.2-1.3); Blood Urea Nitrogen 45 mg/dL (7-17); Calcium 9.4 mg/dL (8.4-10.2); Carbon Dioxide 32 mmol/L (22-30); Chloride 93 mmol/L (98-107); Estimated CRCL calculation 12 ml/min; Estimated Glomerular Filt Rate 8; Glucose 201 mg/dL (65-105); Lipase 101 U/L (23-300); Potassium 4.6 mmol/L (3.4-5.0); Sodium 138 mmol/L (137-145)
[2020-08-04 20:50] LABS: NT Pro B Type Natriuretic Pept > 35000 PG/ML (5-100)
[2020-08-04] MEDS: LACTATED RINGERS 1,000 ML 75 ML IV CONT (21:06)
[2020-08-04] MEDS: FUROSEMIDE INJ 40 MG/4 ML VIAL 20 MG IV PUSH (21:14)
[2020-08-04] MEDS: PROMETHAZINE HCL 25 MG/ML AMPUL 12.5 MG IV PUSH (21:15)
--- NOTE | 2020-08-04 21:28 | ECG_ITS ---
Measurements Intervals [place] Rate: 104 P: 95 AK: 180 QRS: 79 QRSD: 114 T: -46 QT: 367 QTc: 484 Interpretive Statements SINUS TACHYCARDIA INTRAVENTRICULAR CONDUCTION DELAY LOW QRS VOLTAGE IN PRECORDIAL LEADS BORDERLINE R WAVE PROGRESSION, ANTERIOR LEADS T WAVE ABNORMALITY IN INFERIOR LEADS- CONSIDER ISCHEMIA BASELINE WANDER- V1-V3, V5 ABNORMAL ECG Electronically Signed On 08-05-2020 8:00:32 STUDIO ARTIST by Misael Ahmadi D.O.
[2020-08-04] MEDS: FUROSEMIDE INJ 40 MG/4 ML VIAL IV PUSH (22:10)
[2020-08-04 22:28] LABS: Lactic Acid Reflex 2.9 mmol/L (0.7-2.1)
[2020-08-04] MEDS: METOPROLOL TARTRATE INJ 5 MG/5 ML VIAL IV PUSH (22:44)
[2020-08-04] MEDS: ONDANSETRON INJ 4 MG/2 ML VIAL IV PUSH (23:44)
[2020-08-05] VITALS (31 sets, daily range): BP systolic 110–162; BP diastolic 45–80; PULSE 70–96; RESP 16–20; TEMP 36.6–37.3; O2SAT 90–97; BMI 27.0
--- NOTE | 2020-08-05 | ADMGEN ---
This patient, Pamela Bhat, was admitted to [facility] Surg Room 319-01. Patient/family oriented to hospital policies and general routines including ID bracelet, bed and alarms, visiting hours, pain management, procedures, bathroom and other care routines, personal items, smoking policy, room service/diet, and visiting hours. Information on how to activate the Rapid Response Team has been discussed. Patient/Family are encouraged to report perceived risks to care and to ask questions if they do not understand what they are told or what they should do.
[2020-08-05 01:04] LABS: Glucose Point of Care 263 (65-105)
[2020-08-05 01:14] LABS: Reflex Lactic Acid Yes or No Add Lactic
--- NOTE | 2020-08-05 02:16 | PM.IMHP ---
H&P: HPI History of Present Illness Date/Time: 08/05/20 01:45 Chief Complaint: Shortness of breath, nausea and vomiting Narrative: Pamela Bhat is a 44 year old female with a past medical history of insulin-dependent diabetes, GERD, diabetic gastroparesis, hypertension, and end-stage renal disease on hemodialysis Friday, and Friday who presented to the ER due to shortness of breath, nausea and vomiting. She reports that she was supposed to gone to hemodialysis every day this week due to volume overload. She reports that her dry weight is usually 67 kg. She did not go to hemodialysis for the last 2 days due to ?personal issues?. She denies any chest pain or palpitations. She has noticed increased lower extremity edema. She has been compliant with her Lasix and metolazone. To the ER her blood pressures were elevated to the 160-170s systolic. She was also noted to be tachycardic. She states that she did try to take her home medications but had difficulty keeping them down to do vomiting. She reports that she had vomiting clear liquid. Her nausea has improved but is not resolved. She is requesting ice chips. She denies any abdominal pain or changes in bowel habits. She still does make some urine., fevers or chills. In the ER she was noted to have leukocytosis and x-ray findings concerning for possible pneumonia in the right lower lobe with pleural effusion. She denies any recent ill contacts or known COVID exposures. Review of Systems Review of Systems: Narrative: 12 systems were reviewed with pertinent positives and negatives per HPI. Except as documented in the HPI, all other systems were reviewed and are negative. [facility] Past Medical History Medical History (Updated 08/05/20 @ 04:55 by Britni Gonzalez DO) Anasarca Chronic osteomyelitis Status post toe amputations Diabetes mellitus ESRD (end stage renal disease) on dialysis On hemodialysis since June 2019 Gastroparesis due to DM HTN (hypertension) Hyperlipidemia Papilledema Surgical History Surgical History (Updated 08/05/20 @ 04:39 by Britni Gonzalez DO) Amputation of toe Two on the left AV fistula Left forearm H/O tubal ligation History of section, classical X2 History of tonsillectomy and adenoidectomy Hx of myringotomy S/P dialysis catheter insertion Right internal jugular June 2019 status post removal September 2019 S/P lateral meniscal repair S/P PICC central line placement Now removed S/P rotator cuff repair Family History Family History Other Adopted Social History Social History (Updated 08/05/20 @ 04:49 by Britni Gonzalez DO) Social History: The patient stated that she has 2 children and she lives with her of 28 years. She is not currently working she is now on disability. Patient stated that she is down to 4-5 cigarettes a day over the last several months but prior to that had smoked up to a pack of cigarettes per day since she was 16 years old. She denies any heavy alcohol use or illicit substance use. She has 2 children ages 21 and 22 years old. Primary care physician: Dr. Christiano Ochoa Housing Property Manager: Dr. Forbes Code status: Full code Healthcare power of funeral pre arrangement specialist: Smoking packs per day: 1 Smoking cigarettes per day: 20.0 Years smoked: 28 Smoking pack-years: 28.00 Smoking status: Current every day smoker Tobacco type: cigarettes Second hand tobacco smoke exposure: Yes Additional smoking assessment comments: 2 packs per week Alcohol intake: never Substance use: never Substance use type: does not use Gender identity (if verbalized by the patient): Female Sexual Orientation (if Verbalized by the Patient): Straight or Heterosexual Spiritual care concerns: No Agree to blood products: Yes Meds Home Medications and Allergies Home Medications Medication Instructions Recorded Con
[2020-08-05] MEDS: ONDANSETRON INJ 4 MG/2 ML VIAL IV PUSH ×2 (05:35→21:26)
[2020-08-05 06:42] LABS: Lactic Acid Reflex 2.3 mmol/L (0.7-2.1)
[2020-08-05] MEDS: INSULIN ASPART (*BKC) 100 UNITS/ML 7 UNITS SUB-Q ×2 (08:30→13:17)
[2020-08-05] MEDS: INSULIN ASPART (*BKC) 100 UNITS/ML SUB-Q (08:31)
[2020-08-05 08:38] LABS: Glucose Point of Care 287 (65-105)
--- NOTE | 2020-08-05 08:47 | PC.NURSE ---
Patient to dialysis per bed.
--- NOTE | 2020-08-05 10:08 | PM.CNNEP ---
Assessment and Plan Assessment and plan (1) ESRD on hemodialysis: Code(s): N18.6 - End stage renal disease; Z99.2 - Dependence on renal dialysis Status: Acute Assessment and Plan: The patient has end-stage renal disease. She is getting dialysis. She was told that she had gained a lot of weight. However she is still several kilos above her dry weight. She is eating better she says. She has no swelling and her chest x-ray does not show much fluid. Perhaps she has just gained body weight. Will take some fluid off today and again on Friday and see how she does. I do not think that her shortness of breath is because of fluid however. (2) Pneumonia: Qualifiers: Laterality: right Lung location: unspecified part of lung Pneumonia type: due to unspecified organism Qualified Code(s): J18.9 - Pneumonia, unspecified organism Code(s): J18.9 - Pneumonia, unspecified organism Status: Acute Assessment and Plan: The patient has pneumonia by chest x-ray. She got Zithromax and ceftriaxone last night. Defer to hospitalist for further treatment. (3) Uncontrolled hypertension: Code(s): I10 - Essential (primary) hypertension Status: Acute Assessment and Plan: We will take fluid off and see if this controls it before changing medications. (4) Type 2 diabetes mellitus with hyperglycemia: Qualifiers: Diabetes mellitus intermediate card tender insulin use: with intermediate card tender use Qualified Code(s): E11.65 - Type 2 diabetes mellitus with hyperglycemia; Z79.4 - snf (current) use of insulin Code(s): E11.65 - Type 2 diabetes mellitus with hyperglycemia Status: Acute Assessment and Plan: She is on Accu-Cheks and sliding-scale insulin (5) Gastroparesis due to DM: Code(s): E11.43 - Type 2 diabetes mellitus with diabetic autonomic (poly)neuropathy; K31.84 - Gastroparesis Status: Acute Assessment and Plan: She has this underlying causing intermittent nausea and vomiting. Perhaps the pneumonia exacerbated this and cause more nausea and vomiting over the last 2 days (6) Erythropoietin deficiency anemia: Code(s): D63.1 - Anemia in chronic kidney disease Status: Acute Assessment and Plan: Hemoglobin is 11.6. Hold off on EPO for now. 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 She has been about 10 kilos above her dry weight. For this reason she was asked to come into the dialysis unit 6 days a week to try to get her dry weight down. She says she does not drink much fluid but apparently they were not able to get off even what she drinks. In any case the patient had nausea and vomiting for the last 2 days and so did not go to dialysis. So she came to the ER because of the nausea and the vomiting and also because of her shortness of breath. She denies any belly pain. No blood. Bowels are okay. No fevers. She has not had a cough. She has had some shortness of breath which she ascribes to skipping 2 treatments in a row. She was seen in the emergency room and found to have a pneumonia. She was placed on antibiotics. She was given supportive care. She also was placed on some oxygen. Chest x-ray did not show much fluid. Review of Systems Constitutional: Constitutional: Reports no additional constitutional complain
--- NOTE | 2020-08-05 10:28 | PM.EVENT ---
Event Note Event Note Event Note: On dialysis and tolerating it well. Blood pressure is good so far. We will shoot for about 3L off if tolerated Seen at 10:00 a.m.
--- NOTE | 2020-08-05 12:00 | PM.IMPN ---
Progress Note: A&P Assessment and Plan (1) Fluid overload: Qualifiers: Hypervolemia type: unspecified Qualified Code(s): E87.70 - Fluid overload, unspecified Code(s): E87.70 - Fluid overload, unspecified Status: Acute Assessment and Plan: SOB is possibly multifactorial due to fluid overload and/or pneumonia. WBC elevated and CXR showing RLL airspace disease c/w PNA. She has a cough but no fevers. Blood cultures pending. Continue Rocephin and azithromycin. Nephrology has been consulted for dialysis management. Patietn about to undergo HD now. Called by RN later in the day and informed patient is very weak. Will start PT and OT. (2) Pneumonia: Qualifiers: Laterality: right Lung location: unspecified part of lung Pneumonia type: due to unspecified organism Qualified Code(s): J18.9 - Pneumonia, unspecified organism Code(s): J18.9 - Pneumonia, unspecified organism Status: Acute Assessment and Plan: As above. (3) ESRD on hemodialysis: Code(s): N18.6 - End stage renal disease; Z99.2 - Dependence on renal dialysis Status: Acute Assessment and Plan: Patient on chronic HD since Jun 2019 on /Fri schedule. She ws suposed to have increased number of treatmetns this week due to fluid overload but she did not go to HD for the past 2 days. Encourage compliance. (4) Elevated lactic acid level: Code(s): R79.89 - Other specified abnormal findings of blood chemistry Status: Acute Assessment and Plan: Patient's lactic acid level was mildly elevated at 2.9. Repeat lactic acid level today was better at 2.3. Repeat in am (5) Uncontrolled hypertension: Code(s): I10 - Essential (primary) hypertension Status: Acute Assessment and Plan: Patient's blood pressure was initially uncontrolled on presentation but has improved after receiving IV Lopressor in the ER. Patient's home antihypertensives resumed. BP reviewed on 08/05 BP better controlled. COntinue to monitor. (6) Intractable vomiting: Qualifiers: Nausea presence: with nausea Vomiting type: unspecified Qualified Code(s): R11.2 - Nausea with vomiting, unspecified Code(s): R11.10 - Vomiting, unspecified Status: Acute Assessment and Plan: The patient has persistent and intractable vomiting. She does have diabetic gastroparesis. She is undergoing HD so will see if this improves her nausea. Continue p.r.n. antiemetics, Carafate and Protonix. Continue current diet but may need to change to clears if she can not tolerate this. 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 Her home insulin regiment has been resumed. Glucose reviewed on 08/05. Glucose still elevated. Continue sliding scale insulin with Accu-Cheks a.c. HS. Continue diabetic diet. Hypoglycemia protocol available as needed. Continue to monitor. (8) DVT prophylaxis: Code(s): Z29.9 - Encounter for prophylactic measures, unspecified Status: Acute Assessment and Plan: Heparin Subjective Date/time seen: 08/05/20 12:00 Interval history: Date of service 08/05 44yo female with ESRD and DM here for n/v, SOB and edema. Still with n/v. She can't tell me if the n/v is chronic related to her gastroparesis or new. Having a cough productive of yellow sputum. No melana or hematochezia. No SOB. No f/ch but feels 'hot and cold flashes' at times. She is not sure if she is menopausal. No flatus. No BM for a few days Exam Narrative: Exam Narrative: AF 98.3 138/74 83 20 94% Gen - FREDRICK
[2020-08-05] MEDS: METOCLOPRAMIDE HCL 5 MG TABLET PO ×3 (13:15→21:11)
[2020-08-05] MEDS: amLODIPine BESYLATE 5 MG TABLET 10 MG PO (13:15)
[2020-08-05] MEDS: PANTOPRAZOLE SODIUM IV 40 MG VIAL IV PUSH ×2 (13:15→21:13)
[2020-08-05] MEDS: METOPROLOL TARTRATE 25 MG TABLET PO ×2 (13:15→21:11)
[2020-08-05] MEDS: metOLazone 5 MG TABLET PO ×2 (13:15→16:52)
[2020-08-05] MEDS: SUCRALFATE SUSP 100 MG/ML 10 ML UDC 1000 MG PO ×2 (13:15→16:52)
[2020-08-05] MEDS: FUROSEMIDE INJ 100 MG/10 ML VIAL 80 MG IV PUSH ×2 (13:15→18:00)
[2020-08-05] MEDS: HEPARIN SODIUM 5,000 UNITS/ML VIAL 5000 UNITS SUB-Q ×2 (13:16→21:10)
[2020-08-05 13:38] LABS: Glucose Point of Care 114 (65-105)
[2020-08-05 18:27] LABS: Glucose Point of Care 83 (65-105)
[2020-08-05] MEDS: INSULIN GLARGINE (*BKC) 100 UNITS/ML 17 UNITS SUB-Q (21:08)
[2020-08-05] MEDS: ATORVASTATIN 40 MG TABLET 80 MG PO (21:11)
[2020-08-05 22:22] LABS: Glucose Point of Care 150 (65-105)
[2020-08-06] VITALS: PULSE 72
[2020-08-06 04:00] VITALS: PULSE 69
[2020-08-06] MEDS: SUCRALFATE SUSP 100 MG/ML 10 ML UDC 1000 MG PO ×2 (05:15→12:23)
[2020-08-06] MEDS: METOCLOPRAMIDE HCL 5 MG TABLET PO ×2 (05:16→12:23)
[2020-08-06 06:00] VITALS: BP 104/54; PULSE 63; RESP 20; TEMP 36.9; O2SAT 93
[2020-08-06 06:38] LABS: Hematocrit 29.5 % (37.0-47.0); Hemoglobin 9.2 g/dL (12.0-15.0); Mean Corpuscular HGB Conc 31.2 g/dl (32-36); Mean Corpuscular Hemoglobin 31.9 pg (26-34); Mean Corpuscular Volume 102.4 fl (80-100); Mean Platelet Volume 10.3 fl (7.4-10.4); Platelet Count Result 215 k/mm3 (150-375); Red Blood Count 2.88 M/mm3 (4.2-5.4); Red Cell Distribution Width 15.6 % (11.5-14.5); White Blood Count 11.5 K/mm3 (4.5-10.0)
[2020-08-06] MEDS: ONDANSETRON INJ 4 MG/2 ML VIAL IV PUSH (06:46)
[2020-08-06 06:57] LABS: Lactic Acid Reflex 1.9 mmol/L (0.7-2.1)
[2020-08-06 07:13] LABS: Hemoglobin A1C 7.3 % (<5.7)
[2020-08-06] MEDS: GLUCOSE ORAL GEL 15 GM OF GLUCSE IN 37.5 GM TUBE PO ×2 (07:50→08:18)
[2020-08-06 07:58] LABS: Glucose Point of Care 39 (65-105)
[2020-08-06 08:00] VITALS: PULSE 64; PULSE 76; RESP 20; O2SAT 93
[2020-08-06 08:14] LABS: Glucose Point of Care 42 (65-105)
[2020-08-06 08:51] LABS: Albumin Level 3.9 g/dL (3.5-5.1); Anion Gap 11 mmol/L (8-16); Blood Urea Nitrogen 34 mg/dL (7-17); Carbon Dioxide 30 mmol/L (22-30); Chloride 96 mmol/L (98-107); Estimated CRCL calculation 14 ml/min; Estimated Glomerular Filt Rate 12; Glucose 44 mg/dL (65-105); Phosphorus 4.6 mg/dL (2.5-4.5); Potassium 4.3 mmol/L (3.4-5.0); Sodium 137 mmol/L (137-145)
[2020-08-06 08:57] LABS: Glucose Point of Care 69 (65-105)
--- NOTE | 2020-08-06 08:59 | PM.PNNEP ---
Progress Note: A&P Assessment and Plan (1) ESRD on hemodialysis: Code(s): N18.6 - End stage renal disease; Z99.2 - Dependence on renal dialysis Status: Acute Assessment and Plan: The patient has end-stage renal disease. She is due on Friday. Labs look okay and volume status looks okay as well. It seems that she does not really have 7-10 L of fluid on. I discussed with the patient at length. If she had that much fluid on then that would be 1.5gal in each leg and she barely has any swelling. I think her tight fitting clothes are because she is eating better. Probably her dry weight should be increased. Dr. Forbes will address this further as an outpatient. Overall patient looks better. No objection to discharge when all other issues are resolved (2) Pneumonia: Qualifiers: Laterality: right Lung location: unspecified part of lung Pneumonia type: due to unspecified organism Qualified Code(s): J18.9 - Pneumonia, unspecified organism Code(s): J18.9 - Pneumonia, unspecified organism Status: Acute Assessment and Plan: The patient has pneumonia by chest x-ray? Lungs sound pretty good and she is not coughing. (3) Uncontrolled hypertension: Code(s): I10 - Essential (primary) hypertension Status: Acute Assessment and Plan: Blood pressure is really good right now. She has ranging 104-130. Keep same medications. 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 (6) Erythropoietin deficiency anemia: Code(s): D63.1 - Anemia in chronic kidney disease Status: Acute Assessment and Plan: Hemoglobin is 11.6. Hold off on EPO for now. (7) Renal osteodystrophy: Code(s): N25.0 - Renal osteodystrophy Status: Acute Assessment and Plan: Will check a renal panel tomorrow Subjective Date/time seen: 08/06/20 08:59 Interval history: Pamela is feeling better today. No more nausea or vomiting. She got about 3L of fluid off yesterday. She says she has been eating better at home before the nausea and vomiting. Her clothes have been fitting tight. She is worried that this is swelling. Review of Systems Cardiovascular: Cardiovascular: Reports no additional cardiovascular complaints Respiratory: Respiratory: Reports no additional respiratory complaints Gastrointestinal: Gastrointestinal: Reports no additional gastrointestinal complaints Genitourinary: Genitourinary: Reports no additional female genitourinary complaints Exam Narrative: Exam Narrative: WDWN in NAD skin no rash head ncat lungs clear cor reg no rub abd BS+ nontender and soft ext trace edema. Objective Data Vital Signs Vital Signs: Vital Signs - 24 hr 08/05/20 09:00 08/05/20 09:15 08/05/20 09:30 Temperature Pulse Rate 94 94 93 Respiratory Rate Blood Pressure 148/60 H 153/72 H 152/69 H Pulse Oximetry 08/05/20 09:45 08/05/20 10:00 08/05/20 10:15 Temperature Pulse Rate 92 93 90 Respiratory Rate Blood Pressure 144/72 H 162/80 H 153/76 H Pulse Oximetry 08/05/20 10:30 08/05/20 10:45 08/05/20 11:00 Temperature Pulse Rate 87 89 85 Respiratory Rate Blood Pressure 135/57 L 144/60 H 141/68 H Pulse Oximetry 08/05/20 11:15 08/05/20 11:30 08/05/20 11:45 Temperature Pulse Rate 87 86 84 Respiratory Rate Blood Pressu
[2020-08-06 09:42] LABS: Glucose Point of Care 121 (65-105)
[2020-08-06] MEDS: HEPARIN SODIUM 5,000 UNITS/ML VIAL 5000 UNITS SUB-Q (10:17)
[2020-08-06] MEDS: FUROSEMIDE INJ 100 MG/10 ML VIAL 80 MG IV PUSH (10:17)
[2020-08-06] MEDS: amLODIPine BESYLATE 5 MG TABLET 10 MG PO (10:17)
[2020-08-06 10:18] VITALS: PULSE 64
[2020-08-06] MEDS: METOPROLOL TARTRATE 25 MG TABLET PO (10:18)
[2020-08-06] MEDS: metOLazone 5 MG TABLET PO ×2 (10:18→12:23)
[2020-08-06] MEDS: PANTOPRAZOLE SODIUM IV 40 MG VIAL IV PUSH (10:19)
[2020-08-06 12:08] LABS: Glucose Point of Care 141 (65-105)
[2020-08-06] MEDS: INSULIN ASPART (*BKC) 100 UNITS/ML 7 UNITS SUB-Q (12:24)
--- NOTE | 2020-08-06 12:57 | PM.DS ---
DS: Admitting Diagnosis Admitting Diagnosis Admitting Diagnosis: SOB DS: Discharge Diagnosis Discharge Diagnosis (1) Fluid overload: Qualifiers: Hypervolemia type: unspecified Qualified Code(s): E87.70 - Fluid overload, unspecified Code(s): E87.70 - Fluid overload, unspecified Status: Acute Assessment and Plan: Patient presents with SOB that is possibly multifactorial due to fluid overload or possibly pneumonia. WBC elevated and CXR showing RLL airspace disease c/w PNA. She has a cough but no fevers. Blood cultures NGTD. She was given one dose of Rocephin and azithromycin in the ED but not continued. Nephrology was consulted for dialysis management. Patient underwent HD with resolution of her symptoms. (2) Pneumonia: Qualifiers: Laterality: right Lung location: unspecified part of lung Pneumonia type: due to unspecified organism Qualified Code(s): J18.9 - Pneumonia, unspecified organism Code(s): J18.9 - Pneumonia, unspecified organism Status: Acute Assessment and Plan: As above. PNA felt less likely given the improvement in her symptoms. PNA ruled out. (3) ESRD on hemodialysis: Code(s): N18.6 - End stage renal disease; Z99.2 - Dependence on renal dialysis Status: Acute Assessment and Plan: Patient on chronic HD since Jun 2019 on schedule. She was supposed to have increased number of treatments this week due to fluid overload but she did not go to HD for the past 2 days. Encouraged compliance. (4) Elevated lactic acid level: Code(s): R79.89 - Other specified abnormal findings of blood chemistry Status: Acute Assessment and Plan: Patient's lactic acid level was mildly elevated at 2.9. Repeat lactic acid level today was better at 1.9. (5) Uncontrolled hypertension: Code(s): I10 - Essential (primary) hypertension Status: Acute Assessment and Plan: Patient's blood pressure was initially uncontrolled on presentation but has improved after receiving IV Lopressor in the ER. Patient's home antihypertensives resumed. BP much better controlled now. (6) Intractable vomiting: Qualifiers: Nausea presence: with nausea Vomiting type: unspecified Qualified Code(s): R11.2 - Nausea with vomiting, unspecified Code(s): R11.10 - Vomiting, unspecified Status: Acute Assessment and Plan: The patient had intractable vomiting. She does have diabetic gastroparesis. She had HD whcih appears to have improved thes symptoms. She was eating normally after HD. (7) Type 2 diabetes mellitus with hyperglycemia: Qualifiers: Diabetes mellitus exterminator helper insulin use: with fpc use Qualified Code(s): E11.65 - Type 2 diabetes mellitus with hyperglycemia; Z79.4 - detention (current) use of insulin Code(s): E11.65 - Type 2 diabetes mellitus with hyperglycemia Status: Acute Assessment and Plan: A1c 7.3 The patient is hyperglycemic. Her home insulin regiment has been resumed. Glucose low this morning and this was treated; she was asymptomatic. Her lantus dose was decreased. We continued sliding scale insulin with Accu-Cheks a.c. HS. (8) Numbness and tingling in left hand: Code(s): R20.0 - Anesthesia of skin; R20.2 - Paresthesia of skin Status: Acute Assessment and Plan: Patient was complaining of numbness and tingling in her left hand and forearm. She has never had this before. Left leg is not involved. No weakness in the hand. It involves the whole hand. She denies neck pain. Physical exam of the time showed no abnormalities and she states the numbness and tingling resolved. Patient was seen again inform she could be discharged home since no repeat dialysis was scheduled. She again complains of the numbness and tingling in the left hand and forearm. Repeat exam was unchanged. Tinel's sign was negati
[2020-08-06 14:00] VITALS: BP 112/61; PULSE 66; RESP 18; TEMP 36.7; O2SAT 93
== END 2020-08-06 14:25 | disposition home or self-care (01) ==
LOC: ANHED 21:32 → ANH3MEDSUR 08-05 00:20
PROVIDERS: Internal Medicine Nephrology; Admitting Provider Internal Medicine; Emergency Provider Emergency Medicine; PCP Internal Medicine; Visit Provider Internal Medicine
DX: E87.70 Fluid overload, unspecified (principal); I16.0 Hypertensive urgency; I12.0 Hypertensive chronic kidney disease with stage 5 chronic kidney disease or end stage renal disease; E11.22 Type 2 diabetes mellitus with diabetic chronic kidney disease; N18.6 End stage renal disease; Z99.2 Dependence on renal dialysis; R79.89 Other specified abnormal findings of blood chemistry; R11.2 Nausea with vomiting, unspecified; R06.02 Shortness of breath; R20.0 Anesthesia of skin; G93.5 Compression of brain; E11.65 Type 2 diabetes mellitus with hyperglycemia; E11.43 Type 2 diabetes mellitus with diabetic autonomic (poly)neuropathy; K31.84 Gastroparesis; F17.210 Nicotine dependence, cigarettes, uncomplicated; Z79.4 Long term (current) use of insulin; D63.1 Anemia in chronic kidney disease; N25.0 Renal osteodystrophy; Z89.422 Acquired absence of other left toe(s); H47.10 Unspecified papilledema
CPT/HCPCS: 36415; 70450; 71046; 80053; 80069; 82948; 83036; 83605; 83690; 83735; 83880; 85025; 85027; 87040; 93005; 96361; 96365; 96372; 96374; 96375; 96376; 97110; 97116; 97161; 97165; 99285; A9270; C9113; G0257; G0378; J0456; J0696; J1644; J1815; J1940; J2405; J2550; J7030; J7120

== ENCOUNTER 2020-11-30 22:34 | Observation (INO) | payer OTHER, MEDICARE, MEDICAID, SELFPAY ==
--- NOTE | ~2020-11-30 | XR_ITS ---
EXAMINATION: XR chest 1V portable DATE: 12/01/2020 01:32 INDICATION: Shortness of breath TECHNIQUE: frontal view of the chest was obtained. COMPARISON: Chest radiograph dated 08/04/2020 FINDINGS: A few subtle peripheral linear opacities at the bilateral lung bases which could represent atelectasi s or minimal pulmonary edema. No pleural effusion or pneumothorax. Mild cardiomegaly. Visualized bone s and soft tissues are unremarkable. IMPRESSION: 1. Minimal linear atelectasis versus pulmonary edema at the bilateral lung bases. 2. Cardiomegaly. Reviewed, dictated and finalized at location A. IMPRESSION: 1. Minimal linear atelectasis versus pulmonary edema at the bilateral lung base s. 2. Cardiomegaly.
--- NOTE | ~2020-11-30 | CT_ITS ---
EXAMINATION: CT brain wo con DATE: 12/01/2020 14:57 INDICATION: Scalp abrasions post head injury TECHNIQUE: Computed tomography (CT) of the head was performed without intravenous contrast. Sagittal and coronal reconstructions were performed. The mA was adjusted according to patient size. Iterative reconstruction technique was employed. The dose-length product was 605.33 mGy-cm. COMPARISON: head CT dated 08/26/2020 FINDINGS: No fracture. No acute intracranial hemorrhage, acute infarction or abnormal extra axial fluid collect ion. Small old lacunar infarct at the head of the right caudate nucleus. There is mild scattered whit e matter hypoattenuation consistent with chronic small vessel ischemic disease. Ventricles are normal and symmetric. Again seen is a Chiari I malformation with bilateral cerebellar tonsils extending bel ow the level of the inferior margin of the [id number] which is at the level of the foramen magnum. No mass/mass effect. Chronic small right mastoid effusion. The orbits, paranasal sinuses and left ma stoid air cells are normal. IMPRESSION: 1. No fracture or acute intracranial process. 2. Small old lacunar infarct at the head of the right caudate nucleus. 3. Chronic mild scattered white matter hypoattenuation which could be due to premature chronic small vessel ischemic disease with wider differentiation as detailed on report for MR dated 12/21/2019. 4. Chiari I malformation Reviewed, dictated and finalized at location A. IMPRESSION: 1. No fracture or acute intracranial process. 2. Small old lacunar infarct at the head of the right caudate nucleus. 3. Chronic mild scattered white matter hypoattenuation which could be due to pr emature chronic small vessel ischemic disease with wider differentiation as det emmett on report for MR dated 12/21/2019. 4. Chiari I malformation
[2020-11-30 22:44] VITALS: BP 161/67; PULSE 98; RESP 12; TEMP 36.9; O2SAT 97
[2020-12-01] VITALS (31 sets, daily range): BP systolic 113–160; BP diastolic 52–70; PULSE 75–92; RESP 16–25; TEMP 36–37.4; O2SAT 90–100; BMI 27.1
--- NOTE | 2020-12-01 01:05 | PC.NURSE ---
pt. titrated off of o2 and oxygen remained at 90%
--- NOTE | 2020-12-01 01:10 | ECG_ITS ---
Measurements Intervals [place] Rate: 89 P: 11 IA: 168 QRS: 58 QRSD: 106 T: 62 QT: 361 QTc: 439 Interpretive Statements SINUS RHYTHM LEFT ATRIAL ENLARGEMENT INCOMPLETE RIGHT BUNDLE BRANCH BLOCK BORDERLINE R WAVE PROGRESSION, ANTERIOR LEADS BORDERLINE ST-T WAVE ABNORMALITY- ANT/LAT LEADS BORDERLINE ECG Electronically Signed On 12-01-2020 7:39:52 CDT by Misael Ahmadi D.O.
--- NOTE | 2020-12-01 01:18 | PC.NURSE ---
Pt. placed back on 2L NC ERP made aware
[2020-12-01 01:39] LABS: Basophils Absolute Auto 0.1 K/mm3 (0.0-0.1); Basophils Percent Auto 0.6 % (0.2-1.2); Eosinophils Absolute Auto 0.1 K/mm3 (0-0.3); Eosinophils Percent Auto 1.5 % (0-4.4); Hematocrit 31.3 % (37.0-47.0); Immature Granulocyte Absolute 0.03 K/mm3 (0.00-0.031); Immature Granulocyte Percent A 0.4 % (0-0.5); Lymphocytes Percent Auto 18.8 % (18.3-44.2); Mean Corpuscular HGB Conc 31.9 g/dl (32-36); Mean Corpuscular Hemoglobin 32.8 pg (26-34); Mean Corpuscular Volume 102.6 fl (80-100); Mean Platelet Volume 10.5 fl (7.4-10.4); Monocytes Absolute Auto 0.5 K/mm3 (0.1-0.6); Monocytes Percent Auto 6.4 % (2.6-8.5); Neutrophils Absolute Auto 5.8 K/mm3 (1.3-6.7); Neutrophils Percent Auto 72.3 % (45.5-73.1); Platelet Count Result 158 k/mm3 (150-375); Red Blood Count 3.05 M/mm3 (4.2-5.4)
[2020-12-01 01:48] LABS: Alanine Aminotransferase 59 U/L (4-35); Albumin Level 4.1 g/dL (3.5-5.1); Alkaline Phosphatase 188 U/L (38-126); Anion Gap 14 mmol/L (8-16); Aspartate Amino Transferase 41 U/L (14-36); Bilirubin,Total 0.8 mg/dL (0.2-1.3); Blood Urea Nitrogen 37 mg/dL (7-17); Calcium 8.9 mg/dL (8.4-10.2); Carbon Dioxide 33 mmol/L (22-30); Chloride 93 mmol/L (98-107); Estimated CRCL calculation 14 ml/min; Estimated Glomerular Filt Rate 12; Glucose 368 mg/dL (65-105); Potassium 4.2 mmol/L (3.4-5.0); Sodium 140 mmol/L (137-145)
[2020-12-01 02:22] LABS: Troponin I 0.103 ng/mL (0.000-0.034)
--- NOTE | 2020-12-01 03:19 | ED.GENADULT ---
HPI - General Adult General Chief complaint: Wound/Laceration Stated complaint: top of head bleeding Time Seen by Provider: 12/01/20 00:59 History of Present Illness HPI narrative: Patient 45-year-old female who presents the emergency department with chief complaint of bleeding from scalp. Patient reports that she noticed that her hair was wet touched it and noticed that she had blood on it. Patient states that she had no trauma reports no other injuries. Patient reports that she is a dialysis patient and is due for dialysis on Friday. Patient states that she has had significant weight gain states she feels a little weak but really has no other complaints patient does report that she smokes cigarettes Related Data Home Medications Medication Instructions Recorded Confirmed atorvastatin 80 mg PO HS 06/05/19 08/05/20 metolazone 5 mg PO TID 10/19/19 08/05/20 Allergies Allergy/AdvReac Type Severity Reaction Status Date / Time No Known Drug Allergies Allergy Unknown Verified 12/01/20 01:05 Review of Systems Review of Systems: Narrative: A 10 system review of systems was completed on the patient and is negative except for what is stated in the HPI. Nursing and ancillary documentation was reviewed. [facility] Past Medical History Medical History Anasarca Chronic osteomyelitis Status post toe amputations Diabetes mellitus Erythropoietin deficiency anemia ESRD (end stage renal disease) on dialysis On hemodialysis since June 2019 Gastroparesis due to DM HTN (hypertension) Hyperlipidemia Papilledema Renal osteodystrophy Surgical History Surgical History Amputation of toe Two on the left AV fistula Left forearm H/O tubal ligation History of section, classical X2 History of tonsillectomy and adenoidectomy Hx of myringotomy S/P dialysis catheter insertion Right internal jugular June 2019 status post removal September 2019 S/P lateral meniscal repair S/P PICC central line placement Now removed S/P rotator cuff repair Family History Family History Other Adopted Social History Social History Social History: The patient stated that she has 2 children and she lives with her of 28 years. She is not currently working she is now on disability. Patient stated that she is down to 4-5 cigarettes a day over the last several months but prior to that had smoked up to a pack of cigarettes per day since she was 16 years old. She denies any heavy alcohol use or illicit substance use. She has 2 children ages 21 and 22 years old. Primary care physician: Dr. Christiano Ochoa Steam Fitter: Dr. Forbes Code status: Full code Healthcare power of workers compensation defense attorney: Smoking packs per day: 1 Smoking cigarettes per day: 20.0 Years smoked: 28 Smoking pack-years: 28.00 Smoking status: Current every day smoker Tobacco type: cigarettes Second hand tobacco smoke exposure: Yes Additional smoking assessment comments: 2 packs per week Alcohol intake: never Substance use: never Substance use type: does not use Gender identity (if verbalized by the patient): Female Spiritual care concerns: No Agree to blood products: Yes Exam Narrative: Exam Narrative: GENERAL: Well-appearing, well-nourished, and in no acute distress. HEAD: Normocephalic, atraumatic. EYES: PERRLA and EOMI. ENT: Nares clear, no rhinorrhea or epistaxis. Mucous membranes moist. NECK: Supple. CHEST: Clear to auscultation. No respiratory distress. HEART: Regular rate and rhythm. No murmur heard. Normal peripheral pulses. ABDOMEN: Soft, nontender, nondistended, normal active bowel sounds. EXTREMITIES: Normal range of motion. 2+ edema. SKIN: Warm, dry, no rash. NEURO
--- NOTE | 2020-12-01 03:32 | PC.NURSE ---
Pt states she presented to ED due to bleeding wound on scalp that she felt was bleeding excessively. Pt denies use of blood thinners. Pt was noted to desaturate at some point and was placed on 4 liters of O2 of which she is tolerating well with saturation of 100% at this time. Pt denies use of home O2. Pt noted to be MWF dialysis pt and denies missing any treatments. Pt noted to be alert and oriented x4 and in no obvious distress at this time with stable vitals. Pt with call button and personal items within reach and advised to press call button for assistance.
[2020-12-01] MEDS: FUROSEMIDE INJ 40 MG/4 ML VIAL IV PUSH (03:37)
[2020-12-01] MEDS: ASPIRIN 81 MG CHEWABLE TABLET 324 MG PO (03:37)
--- NOTE | 2020-12-01 04:15 | PC.NURSE ---
Report called to Kim. Knight to send pt to floor.
--- NOTE | 2020-12-01 04:30 | ADMGEN ---
This patient, Pamela Bhat, was admitted to IMU Room 205-01. Patient/family oriented to hospital policies and general routines including ID bracelet, bed and alarms, visiting hours, pain management, procedures, bathroom and other care routines, personal items, smoking policy, room service/diet, and visiting hours. Information on how to activate the Rapid Response Team has been discussed. Patient/Family are encouraged to report perceived risks to care and to ask questions if they do not understand what they are told or what they should do.
--- NOTE | 2020-12-01 05:27 | PM.IMHP ---
H&P: HPI History of Present Illness Date/Time: 12/01/20 05:27 Chief Complaint: hypoxia, scalp bleeding Narrative: Patient 45-year-old female who presents the emergency department with chief complaint of bleeding from scalp. Patient reports that she noticed that her hair was wet touched it and noticed that she had blood on it. Patient states that she had no trauma reports no other injuries that she is aware of. Patient reports that she is a dialysis patient and is due for dialysis on Friday. She did have ehr dialysis yesterday as she missed her hD on . she is normally MWF. Patient states that she has had significant weight gain states she feels a little weak but really has no other complaints patient does report that she smokes cigarettes. Upon arrival to the ED, she was however noted to be hypoxic and was placed on oxygen. upon evaluation, she is noted to have evdience of congesive changes in cxr (no formal report available). She is noted to ahve ypreglycemia with blood glucoase of 368. she is getting admitted for evaluation and management. she is shceduled to get HD here this am. Review of Systems Review of Systems: Narrative: - CONSTITUTIONAL: Denies weight loss, fever and chills. - HEENT: Denies changes in vision and hearing - RESPIRATORY: reports some SOB and denies any cough. - CV: Denies palpitations and had some CP. - GI: Denies abdominal pain, nausea, vomiting and diarrhea. - : Denies dysuria and urinary frequency. - MSK: Denies myalgia and joint pain. - SKIN: Denies rash and pruritus. - NEUROLOGICAL: Denies headache and syncope. - PSYCHIATRIC: Denies recent changes in mood. Denies anxiety and depression. All systems reviewed & are unremarkable except as noted in HPI and below Constitutional: Constitutional: Reports fatigue and Reports weakness Neurologic: Reports weakness Endocrine: Endocrine: Reports fatigue PMFSH Past Medical History Medical History Anasarca Chronic osteomyelitis Status post toe amputations Diabetes mellitus Erythropoietin deficiency anemia ESRD (end stage renal disease) on dialysis On hemodialysis since June 2019 Gastroparesis due to DM HTN (hypertension) Hyperlipidemia Papilledema Renal osteodystrophy Surgical History Surgical History Amputation of toe Two on the left AV fistula Left forearm H/O tubal ligation History of section, classical X2 History of tonsillectomy and adenoidectomy Hx of myringotomy S/P dialysis catheter insertion Right internal jugular June 2019 status post removal September 2019 S/P lateral meniscal repair S/P PICC central line placement Now removed S/P rotator cuff repair Family History Family History Other Adopted Social History Social History Social History: The patient stated that she has 2 children and she lives with her of 28 years. She is not currently working she is now on disability. Patient stated that she is down to 4-5 cigarettes a day over the last several months but prior to that had smoked up to a pack of cigarettes per day since she was 16 years old. She denies any heavy alcohol use or illicit substance use. She has 2 children ages 21 and 22 years old. Primary care physician: Dr. Christiano Ochoa Mine Inspector Federal: Dr. Forbes Code status: Full code Healthcare power of admitted attorneys: Smoking packs per day: 0.5 Smoking cigarettes per day: 10.0 Years smoked: 30 Smoking pack-years: 15.00 Smoking status: Current every day smoker Tobacco type: cigarettes Second hand tobacco smoke exposure: Yes Additional smoking assessment comments: 2 packs per week Alcohol intake: never Substance use: never Substance use type: does n
[2020-12-01 05:49] LABS: Troponin I 0.104 ng/mL (0.000-0.034)
[2020-12-01 08:15] LABS: Troponin I 0.103 ng/mL (0.000-0.034)
[2020-12-01 08:49] LABS: Glucose Point of Care 274 mg/dl (65-105)
[2020-12-01] MEDS: INSULIN ASPART (*BKC) 100 UNITS/ML 7 UNITS SUB-Q ×2 (09:00→11:55)
[2020-12-01] MEDS: SUCRALFATE SUSP 100 MG/ML 10 ML UDC 1000 MG PO ×3 (09:01→19:30)
[2020-12-01] MEDS: CLOPIDOGREL BISULFATE 75 MG TABLET PO (09:01)
[2020-12-01] MEDS: METOCLOPRAMIDE HCL 5 MG TABLET PO ×3 (09:01→19:30)
[2020-12-01] MEDS: lisinopriL 20 MG TABLET PO (09:02)
[2020-12-01] MEDS: SEVELAMER CARBONATE 800 MG TABLET PO ×3 (09:02→19:30)
[2020-12-01] MEDS: ASPIRIN 81 MG CHEWABLE TABLET PO (09:02)
--- NOTE | 2020-12-01 11:37 | PM.CNNEP ---
Assessment and Plan Additional Plan End-stage renal disease Came in with hypoxemia and scalp bleeding Pulmonary edema. Chest x-ray Elevated troponins, chest pain Diabetes mellitus type 1 with nephropathy Hypertensive renal disease Anemia of chronic kidney disease History of secondary hyperparathyroid Plan: Will arrange dialysis today. Removal of fluid Cardiology consultation recommended Monthly ESRD and related needs History of Present Illness Reason for Consult Consult date: 12/01/20 Reason for consult: end stage renal disease Chief Complaint Chief complaint: ESRD, Hypoxia, Elevated Troponin History of Present Illness Narrative: 45-year-old white female with a history of ESRD secondary to diabetes mellitus and hypertension on Friday, Friday, Friday dialysis schedule. She had missed Friday due to a doctor's appointment and had a dialysis yesterday. No events on dialysis. She states that she may have been 2 kg above her target weight at the time of completion of dialysis. In any case shows not manifesting with shortness of breath. She went home and was resting. In the evening about 10:00 p.m. also started bleeding from the scalp. No bleeding anywhere else. Came to the emergency room due to the bleeding. She was found to have low oxygen saturation levels. Sometime around then she also experienced some chest pressure which lasted about 30 minutes with no radiation to the axilla some associated shortness of breath but no nausea vomiting and diaphoresis. Her troponin is seen to be elevated. The subtle EKG changes in the anterolateral leads. She is admitted for further management. Current feeling okay. She is using oxygen. Review of Systems Review of Systems: All systems reviewed & are unremarkable except as noted in HPI and below PMFSH Past Medical History Medical History Anasarca Chronic osteomyelitis Status post toe amputations Diabetes mellitus Erythropoietin deficiency anemia ESRD (end stage renal disease) on dialysis On hemodialysis since June 2019 Gastroparesis due to DM HTN (hypertension) Hyperlipidemia Papilledema Renal osteodystrophy Surgical History Surgical History Amputation of toe Two on the left AV fistula Left forearm H/O tubal ligation History of section, classical X2 History of tonsillectomy and adenoidectomy Hx of myringotomy S/P dialysis catheter insertion Right internal jugular June 2019 status post removal September 2019 S/P lateral meniscal repair S/P PICC central line placement Now removed S/P rotator cuff repair Family History Family History Other Adopted Social History Social History Social History: The patient stated that she has 2 children and she lives with her of 28 years. She is not currently working she is now on disability. Patient stated that she is down to 4-5 cigarettes a day over the last several months but prior to that had smoked up to a pack of cigarettes per day since she was 16 years old. She denies any heavy alcohol use or illicit substance use. She has 2 children ages 21 and 22 years old. Primary care physician: Dr. Christiano Ochoa Chief Of Field Operations: Dr. Forbes Code status: Full code Healthcare power of research attorney: Smoking packs per day: 0.5 Smoking cigarettes per day: 10.0 Years smoked: 30 Smoking pack-years: 15.00 Smoking status: Current every day smoker Tobacco type: cigarettes Second hand tobacco smoke exposure: Yes Additional smoking assessment comments: 2 packs per week Alcohol intake: never Substance use: never Substance use type: does not use Gender identity (if verbalized by the patient): Female Spiritual care concerns: No Agree to blood products: Yes Meds Lory
--- NOTE | 2020-12-01 13:06 | PC.NURSE ---
This patient, Pamela Bhat, was transferred to [facility] on 12/01/20 at 1258. Personal belongings sent with patient. Report given to Elsy WAYNE. Appropriate documentation sent with patient.
[2020-12-01 13:15] LABS: Glucose Point of Care 221 mg/dl (65-105)
--- NOTE | 2020-12-01 14:06 | PC.NURSE ---
This patient, Pamela Bhat, was received from [[facility] ] on 12/01/20 at 1406. Received report from Corrine WAYNE. Patient oriented to unit policies and routines. Patient sitting up in bed resting comfortably with no complaints at this time. Will continue to monitor.
--- NOTE | 2020-12-01 14:13 | PM.IMPN ---
Progress Note: A&P Assessment and Plan (1) Abrasion of scalp: Qualifiers: Encounter type: initial encounter Qualified Code(s): S00.01XA - Abrasion of scalp, initial encounter Code(s): S00.01XA - Abrasion of scalp, initial encounter Status: Acute (2) Fluid overload: Qualifiers: Hypervolemia type: unspecified Qualified Code(s): E87.70 - Fluid overload, unspecified Code(s): E87.70 - Fluid overload, unspecified Status: Acute (3) Elevated troponin: Code(s): R77.8 - Other specified abnormalities of plasma proteins Status: Acute (4) Hypoxia: Code(s): R09.02 - Hypoxemia Status: Acute (5) Erythropoietin deficiency anemia: Code(s): D63.1 - Anemia in chronic kidney disease Status: Acute (6) Type 2 diabetes mellitus with hyperglycemia: Qualifiers: Diabetes mellitus intermodal customer service insulin use: with intermodal customer service use Qualified Code(s): E11.65 - Type 2 diabetes mellitus with hyperglycemia; Z79.4 - marine oil terminal superintendent (current) use of insulin Code(s): E11.65 - Type 2 diabetes mellitus with hyperglycemia Status: Acute (7) ESRD on hemodialysis: Code(s): N18.6 - End stage renal disease; Z99.2 - Dependence on renal dialysis Status: Acute (8) Tobacco dependence: Code(s): F17.200 - Nicotine dependence, unspecified, uncomplicated Status: Chronic (9) Hypertension: Qualifiers: Hypertension type: unspecified Qualified Code(s): I10 - Essential (primary) hypertension Code(s): I10 - Essential (primary) hypertension Status: Acute Additional Plan # Hypoxia: likely from fluid overaload, despite HD yesterday. nephrology consulted and plan for HD today. # fluid overload: hd as is planned. # scalp abrasion: mild ooze noted. no suturing needed. order CT head ? fall or SEizure on admission # elevated troponin: get serial troponins. she does report having some chest pain yesterday,cardiology consultation if needed # type 2 DM: on insulin ath ome. resume. # chronic anemia: stable. # peripheral vascula disase sp amputation of toes. on aspirin, plavix. # tobacco dependence # ESRD on HD MWF. nephro on [place]. # htn: home emds # hx of gastreoparesis # HLP; home meds # DVT proph: PAS boots. start once scalp bleed stable. Subjective Date/time seen: 12/01/20 14:13 Interval history: 45-year-old female who presents the emergency department with chief complaint of bleeding from scalp. Patient reports that she noticed that her hair was wet touched it and noticed that she had blood on it. Vague history of scalp abrasion and bleed in eye prior to that. pt is being monitored on telemetry order CT head to rule out any intracranial pathology Review of Systems Review of Systems: All systems reviewed & are unremarkable except as noted in HPI and below Exam Narrative: Exam Narrative: GENERAL: The patient is well developed, not in acute distress Head: blood soaked hair noted, when cleared a small open spote in her scalp noted with mild ooze of blood noted. CHEST: Chest wall is nontender. HEART: Regular rate and rhythm without murmur, rubs, or gallops LUNGS: basal crackles noted. no respiratory distress ABDOMEN: Soft, positive bowel sounds, non-tender, no organomegaly. SKIN: No rash, no excessive bruising, petechiae, or purpura. NEUROLOGIC: Cranial nerves II-XII intact, alert and oriented x 3, no gross motor deficits EXTREMITIES: no edema, cyanosis or clubbing Objective Data Vital Signs Vital Signs: Vital Signs - 24 hr 11/30/20 22:44 12/01/20 00:48 12/01/20 01:02 Temperature 36.9 C 37.4 C 37.3 C Pulse Rate 98 92 90 Respiratory Rate 12 20 25 H Blood Pressure 161/67 H 151/65 H 160/63 H Pulse Oximetry 97 90 92 12/01/20 03:36 12/01/20 04:34 12/01/20 04:44 Temperature 36.1 C L 36.1 C L Pulse Rate 83 82 82 Respiratory Rate 25 H 16 16 Blood Pressure 140/54 L 142/56 H 142/56 H Pulse Oximetry 100 100 12/01/20
[2020-12-01 19:46] LABS: Hepatitis B Surface Antigen Negative (Negative)
[2020-12-01 19:51] LABS: Hepatitis B Core IgM Result Negative (Negative)
[2020-12-01 20:17] LABS: Hepatitis B Surface Anti Res Positive
[2020-12-01] MEDS: ATORVASTATIN 40 MG TABLET 80 MG PO (20:55)
[2020-12-01] MEDS: INSULIN GLARGINE (*BKC) 100 UNITS/ML 12 UNITS SUB-Q (20:55)
[2020-12-01 21:01] LABS: Glucose Point of Care 186 mg/dl (65-105)
[2020-12-01 21:01] LABS: Glucose Point of Care 81 mg/dl (65-105)
[2020-12-02] VITALS (8 sets, daily range): BP systolic 126–147; BP diastolic 52–79; PULSE 76–86; RESP 16–20; TEMP 36.1–37.2; O2SAT 94–100
[2020-12-02] MEDS: METOCLOPRAMIDE HCL 5 MG TABLET PO ×4 (06:04→20:42)
[2020-12-02] MEDS: SUCRALFATE SUSP 100 MG/ML 10 ML UDC 1000 MG PO ×4 (06:04→20:42)
[2020-12-02 08:15] LABS: Glucose Point of Care 178 mg/dl (65-105)
[2020-12-02] MEDS: ASPIRIN 81 MG CHEWABLE TABLET PO (08:19)
[2020-12-02] MEDS: CLOPIDOGREL BISULFATE 75 MG TABLET PO (08:19)
[2020-12-02] MEDS: lisinopriL 20 MG TABLET PO (08:19)
[2020-12-02] MEDS: INSULIN ASPART (*BKC) 100 UNITS/ML 7 UNITS SUB-Q ×3 (08:37→17:02)
[2020-12-02] MEDS: SEVELAMER CARBONATE 800 MG TABLET PO ×3 (08:41→17:04)
--- NOTE | 2020-12-02 10:43 | ECG_ITS ---
Measurements Intervals [place] Rate: 85 P: 67 [place]: 163 QRS: 17 QRSD: 106 T: 23 QT: 374 QTc: 447 Interpretive Statements SINUS RHYTHM POSSIBLE LEFT ATRIAL ENLARGEMENT BORDERLINE R WAVE PROGRESSION, ANTERIOR LEADS BORDERLINE ECG Electronically Signed On 12-02-2020 17:46:47 CDT by Misael Ahmadi D.O.
[2020-12-02] MEDS: ACETAMINOPHEN 325 MG TABLET 650 MG PO (11:22)
[2020-12-02 11:43] LABS: Troponin I 0.066 ng/mL (0.000-0.034)
[2020-12-02 12:10] LABS: Glucose Point of Care 186 mg/dl (65-105)
--- NOTE | 2020-12-02 14:10 | P.PNIM_ITS ---
Progress Note: A&P Assessment and Plan (1) Abrasion of scalp: Qualifiers: Encounter type: initial encounter Qualified Code(s): S00.01XA - Abrasion of scalp, initial encounter Code(s): S00.01XA - Abrasion of scalp, initial encounter Status: Acute Assessment and Plan: * Etiology unclear. Patient denies hitting her head or falling, reports she just noted blood. Not bleeding anymore. No sutures or merna required. 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 (2) Fluid overload: Qualifiers: Hypervolemia type: unspecified Qualified Code(s): E87.70 - Fluid overload, unspecified Code(s): E87.70 - Fluid overload, unspecified Status: Acute Assessment and Plan: * Missed HD on Friday but says she made it up on . Dialyzed yesterday. * Continue hemodialysis per Dr Forbes's instructions. Appreciate his recommendations. (3) Elevated troponin: Code(s): R77.8 - Other specified abnormalities of plasma proteins Status: Acute Assessment and Plan: * Suspect in part related to renal failure. Chest pain earlier; troponin actuall y lower than on admission. * History of CAD patient reports coronary stent placed by Dr Lamont Singh at [place] in August. She remains on her dual anti-platelet therapy with ASA and plavix. * Continue to monitor. (4) Hypoxia: Code(s): R09.02 - Hypoxemia Status: Resolved Assessment and Plan: * Resolved after dialysis. Tolerating room air with adequate oxygen saturations today. Suspect was related to volume overload. (5) Erythropoietin deficiency anemia: Code(s): D63.1 - Anemia in chronic kidney disease Status: Chronic Assessment and Plan: * H&H low but stable. No evidence of ongoing acute bleeding. Monitor CBC. (6) Type 2 diabetes mellitus with hyperglycemia: Qualifiers: Diabetes mellitus terminal makeup operator insulin use: with terminal makeup operator use Qualified Code(s): E11.65 - Type 2 diabetes mellitus with hyperglycemia; Z79.4 - [facility] (current) use of insulin Code(s): E11.65 - Type 2 diabetes mellitus with hyperglycemia Status: Chronic Assessment and Plan: * Blood sugars reviewed, appropriate today. She remains on her home Lantus. Continue to monitor with accu-cheks and adjust treatment as needed, cover with SSI. (7) ESRD on hemodialysis: Code(s): N18.6 - End stage renal disease; Z99.2 - Dependence on renal dialysis Status: Chronic Assessment and Plan: * Dialysis per Dr. Forbes. Appreciate his input. Monitor renal function. (8) Tobacco dependence: Code(s): F17.200 - Nicotine dependence, unspecified, uncomplicated Status: Chronic Assessment and Plan: * Educated on smoking cessation. (9) Hypertension: Qualifiers: Hypertension type: unspecified Qualified Code(s): I10 - Essential (primary) hypertension Code(s): I10 - Essential (primary) hypertension Status: Chronic Assessment and Plan: * Blood pressures variable but overall stable maintained on her home lisinopril. Subjective Date/time seen: 12/02/20 1336
--- NOTE | 2020-12-02 14:10 | PM.IMPN ---
Progress Note: A&P Assessment and Plan (1) Abrasion of scalp: Qualifiers: Encounter type: initial encounter Qualified Code(s): S00.01XA - Abrasion of scalp, initial encounter Code(s): S00.01XA - Abrasion of scalp, initial encounter Status: Acute Assessment and Plan: Etiology unclear. Patient denies hitting her head or falling, reports she just noted blood. Not bleeding anymore. No sutures or merna required. 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 (2) Fluid overload: Qualifiers: Hypervolemia type: unspecified Qualified Code(s): E87.70 - Fluid overload, unspecified Code(s): E87.70 - Fluid overload, unspecified Status: Acute Assessment and Plan: Missed HD on Friday but says she made it up on . Dialyzed yesterday. Continue hemodialysis per Dr Forbes's instructions. Appreciate his recommendations. (3) Elevated troponin: Code(s): R77.8 - Other specified abnormalities of plasma proteins Status: Acute Assessment and Plan: Suspect in part related to renal failure. Chest pain earlier; troponin actually lower than on admission. History of CAD patient reports coronary stent placed by Dr Lamont Singh at [place] in August. She remains on her dual anti-platelet therapy with ASA and plavix. Continue to monitor. (4) Hypoxia: Code(s): R09.02 - Hypoxemia Status: Resolved Assessment and Plan: Resolved after dialysis. Tolerating room air with adequate oxygen saturations today. Suspect was related to volume overload. (5) Erythropoietin deficiency anemia: Code(s): D63.1 - Anemia in chronic kidney disease Status: Chronic Assessment and Plan: H&H low but stable. No evidence of ongoing acute bleeding. Monitor CBC. 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 She remains on her home Lantus. Continue to monitor with accu-cheks and adjust treatment as needed, cover with SSI. (7) ESRD on hemodialysis: Code(s): N18.6 - End stage renal disease; Z99.2 - Dependence on renal dialysis Status: Chronic Assessment and Plan: Dialysis per Dr. Forbes. Appreciate his input. Monitor renal function. (8) Tobacco dependence: Code(s): F17.200 - Nicotine dependence, unspecified, uncomplicated Status: Chronic Assessment and Plan: Educated on smoking cessation. (9) Hypertension: Qualifiers: Hypertension type: unspecified Qualified Code(s): I10 - Essential (primary) hypertension Code(s): I10 - Essential (primary) hypertension Status: Chronic Assessment and Plan: Blood pressures variable but overall stable maintained on her home lisinopril. Subjective Date/time seen: 12/02/20 1330 Interval history: 45-year-old female who presents the emergency department with chief complaint of bleeding from scalp but admitted with fluid overload from missing HD. She reports feeling okay today. I was notified by nursing this morning of the patient having left-sided chest pain. Patient describes a pain around her left chest/breast area that lasted 30 minutes and resolved; denies associated nausea
[2020-12-02 16:47] LABS: Glucose Point of Care 208 mg/dl (65-105)
[2020-12-02 20:14] LABS: Glucose Point of Care 175 mg/dl (65-105)
[2020-12-02] MEDS: INSULIN GLARGINE (*BKC) 100 UNITS/ML 12 UNITS SUB-Q (20:42)
[2020-12-02] MEDS: ATORVASTATIN 40 MG TABLET 80 MG PO (20:42)
[2020-12-03 05:23] VITALS: BP 125/57; PULSE 78; RESP 18; TEMP 37; O2SAT 98
[2020-12-03 05:43] LABS: Hematocrit 29.6 % (37.0-47.0); Hemoglobin 9.8 g/dL (12.0-15.0)
[2020-12-03 06:04] LABS: Albumin Level 3.6 g/dL (3.5-5.1); Anion Gap 10 mmol/L (8-16); Blood Urea Nitrogen 49 mg/dL (7-17); Calcium 9.3 mg/dL (8.4-10.2); Carbon Dioxide 33 mmol/L (22-30); Chloride 94 mmol/L (98-107); Estimated CRCL calculation 13 ml/min; Estimated Glomerular Filt Rate 9; Glucose 132 mg/dL (65-105); Phosphorus 6.6 mg/dL (2.5-4.5); Potassium 4.7 mmol/L (3.4-5.0); Sodium 137 mmol/L (137-145)
[2020-12-03] MEDS: METOCLOPRAMIDE HCL 5 MG TABLET PO ×2 (06:17→11:44)
[2020-12-03] MEDS: SUCRALFATE SUSP 100 MG/ML 10 ML UDC 1000 MG PO ×2 (06:17→11:44)
[2020-12-03 07:56] LABS: Glucose Point of Care 110 mg/dl (65-105)
[2020-12-03 08:00] VITALS: BP 151/59; PULSE 79; RESP 14; TEMP 36.4; O2SAT 96
[2020-12-03] MEDS: ASPIRIN 81 MG CHEWABLE TABLET PO (08:48)
[2020-12-03] MEDS: SEVELAMER CARBONATE 800 MG TABLET PO ×2 (08:48→11:44)
[2020-12-03] MEDS: INSULIN ASPART (*BKC) 100 UNITS/ML 7 UNITS SUB-Q ×2 (08:48→11:44)
[2020-12-03] MEDS: lisinopriL 20 MG TABLET PO (08:48)
[2020-12-03] MEDS: CLOPIDOGREL BISULFATE 75 MG TABLET PO (08:48)
--- NOTE | 2020-12-03 11:22 | PM.DS ---
DS: Admitting Diagnosis Admitting Diagnosis Admitting Diagnosis: Hypoxia DS: Discharge Diagnosis Discharge Diagnosis (1) Abrasion of scalp: Qualifiers: Encounter type: initial encounter Qualified Code(s): S00.01XA - Abrasion of scalp, initial encounter Code(s): S00.01XA - Abrasion of scalp, initial encounter Status: Acute Assessment and Plan: Date of Admission 12/01/20 Date of Discharge 12/03/20 Ms. Bhat is a 45yo F with end-stage renal disease on hemodialysis, insulin-dependent type 2 diabetes, chronic anemia, coronary artery disease with recent coronary stent placement at [facility] who presented to the ED for evaluation of a scalp abrasion. She reports she reached up to her head and noticed her hair was wet, touched it and realized it was blood. She denied hitting her head, falling, or any other known event to have caused this injury. Bleeding was controlled and two small abrasions to top of her head noted, no closure required. She had no further bleeding. She did, however, become mildly hypoxic in the ER requiring 2L/min NC. She described she missed a day of dialysis this week due to another appointment but says she made up her dialysis the following day. Her sanitary engineering teacher is Dr Forbes. He was able to see her here and she was dialyzed. Hypoxia resolved and she was tolerating room air with adequate oxygen saturations. She reported some mild left-sided chest pain without radiation to jaw or arm, lasted 30 minutes and spontaneously resolved. Troponins were mildly elevated but actually lower than they were during admission. EKG reviewed. It is felt her mildly elevated troponin with flat profile is likely related to renal failure and ACS is not suspected. She is hemodynamically stable for discharge 12/03/20 and will resume her normal hemodialysis schedule. She is encouraged to follow up with her PCP and Dr Forbes. Etiology unclear. Patient denies hitting her head or falling, reports she just noted blood. Not bleeding anymore. No sutures or merna required. 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 (2) Fluid overload: Qualifiers: Hypervolemia type: unspecified Qualified Code(s): E87.70 - Fluid overload, unspecified Code(s): E87.70 - Fluid overload, unspecified Status: Acute Assessment and Plan: Missed HD on Friday but says she made it up on . Dialyzed yesterday. Continue hemodialysis per Dr Forbes's instructions. (3) Elevated troponin: Code(s): R77.8 - Other specified abnormalities of plasma proteins Status: Acute Assessment and Plan: Suspect in part related to renal failure. Chest pain earlier; troponin actually lower than on admission. History of CAD patient reports coronary stent placed by Dr Lamont Singh at [facility] in August. She remains on her dual anti-platelet therapy with ASA and plavix. (4) Hypoxia: Code(s): R09.02 - Hypoxemia Status: Resolved Assessment and Plan: Resolved after dialysis. Tolerating room air with adequate oxygen saturations today. Suspect was related to volume overload. (5) Erythropoietin deficiency anemia: Code(s): D63.1 - Anemia in chronic kidney disease Status: Chronic Assessment and Plan: H&H low but stable, chronic. No evidence of ongoing acute bleeding. (6) Type 2 diabetes mellitus with hyperglycemia: Qualifiers: Diabetes mellitus terminal make up operator insulin use: with terminal make up operator use Qualified Code(s): E11.65 - Type 2 diabetes mellitus with hyperglycemia; Z79.4 - [facility] (current) use of insulin Code(s): E11.65 - Type 2 diabetes mellitus with hyperglycemia Status: Chroni
[2020-12-03 11:38] LABS: Glucose Point of Care 142 mg/dl (65-105)
== END 2020-12-03 13:10 | disposition home or self-care (01) ==
LOC: ANHED 12-01 03:25 → ANHIMU 12-01 03:53 → ANH2MED 12-01 13:08
PROVIDERS: Internal Medicine Nephrology; Admitting Provider Internal Medicine; Emergency Provider Emergency Medicine; PCP Internal Medicine; Visit Provider Physician Assistant
DX: E87.70 Fluid overload, unspecified (principal); S00.01XA Abrasion of scalp, initial encounter; R09.02 Hypoxemia; R77.8 Other specified abnormalities of plasma proteins; D63.1 Anemia in chronic kidney disease; E11.65 Type 2 diabetes mellitus with hyperglycemia; Z79.4 Long term (current) use of insulin; N18.6 End stage renal disease; F17.210 Nicotine dependence, cigarettes, uncomplicated; Z99.2 Dependence on renal dialysis; I12.0 Hypertensive chronic kidney disease with stage 5 chronic kidney disease or end stage renal disease; E11.51 Type 2 diabetes mellitus with diabetic peripheral angiopathy without gangrene; Z89.422 Acquired absence of other left toe(s); Z86.73 Personal history of transient ischemic attack (TIA), and cerebral infarction without residual deficits; Z95.1 Presence of aortocoronary bypass graft; I25.10 Atherosclerotic heart disease of native coronary artery without angina pectoris; X58.XXXA Exposure to other specified factors, initial encounter
CPT/HCPCS: 36415; 70450; 71045; 80053; 80069; 82948; 83735; 84484; 85014; 85018; 85025; 86705; 86706; 87340; 93005; 96374; 99285; A9270; G0257; G0378; J1815; J1940; J7030

== ENCOUNTER 2020-12-20 00:04 | Observation (INO) | payer OTHER, MEDICARE, MEDICAID, SELFPAY ==
[2020-12-20] VITALS (36 sets, daily range): BP systolic 137–158; BP diastolic 49–76; PULSE 72–97; RESP 14–22; TEMP 36–37.6; O2SAT 95–100; BMI 25.3
--- NOTE | ~2020-12-20 | XR_ITS ---
EXAMINATION: XR abdomen obstructive series DATE: 12/21/2020 16:15 INDICATION: Nausea and vomiting. TECHNIQUE: Upright and supine views of the abdomen on 3 radiographs were obtained. COMPARISON: CT abdomen and pelvis 01/17/2020 FINDINGS: There are no dilated loops of bowel. There is a moderate volume of stool in the colon. No f ree intraperitoneal gas. IMPRESSION: 1. Normal bowel gas pattern. Reviewed, dictated and finalized at location A.
--- NOTE | ~2020-12-20 | XR_ITS ---
EXAMINATION: XR chest 2V DATE: 12/20/2020 00:41 INDICATION: Midsternal chest pain TECHNIQUE: PA and lateral views of the chest were obtained. COMPARISON: Chest radiograph dated 12/01/2020 FINDINGS: No interval change in streaky atelectasis in the bilateral lower lung zones. No new airspace opacitie s, pulmonary edema, pleural effusion or pneumothorax. Cardiomegaly. Mild thoracic spondylosis. IMPRESSION: 1. Unchanged mild atelectasis/scarring at the bilateral lower lung zones. 2. Cardiomegaly. Reviewed, dictated and finalized at location A.
--- NOTE | ~2020-12-20 | US_ITS ---
EXAMINATION: US venous doppler [facility] DATE: 12/21/2020 11:02 INDICATION: Lower limb pain and swelling TECHNIQUE: Grayscale ultrasound images without and with compression and Doppler ultrasound images of the bilateral lower extremity veins were obtained. COMPARISON: 06/08/2019 FINDINGS: The visualized portions of right common femoral vein, profunda (deep) femoral vein, femoral vein, pop liteal vein, posterior tibial veins, peroneal veins, gastrocnemius vein and greater saphenous vein ou tflow are patent. 2.1 x 0.9 x 0.8 cm Oleary cyst at the right popliteal fossa. The visualized portions of left common femoral vein, profunda femoral vein, femoral vein, popliteal v ein, posterior tibial veins, peroneal veins, gastrocnemius vein and greater saphenous vein outflow ar e patent. IMPRESSION: 1. No deep venous thrombosis in either lower limb. 2. Small right Oleary's cyst. Reviewed, dictated and finalized at location A.
--- NOTE | 2020-12-20 00:07 | ECG_ITS ---
Measurements Intervals [place] Rate: 85 P: 60 [place]: 177 QRS: 17 QRSD: 106 T: 43 QT: 392 QTc: 468 Interpretive Statements SINUS RHYTHM BORDERLINE R WAVE PROGRESSION, ANTERIOR LEADS BORDERLINE ST-T WAVE ABNORMALITY- INF/LAT LEADS BORDERLINE ECG Electronically Signed On 12-20-2020 5:44:05 CDT by Msiael Ahmadi D.O.
[2020-12-20 00:39] LABS: Basophils Percent Auto 0.6 % (0.2-1.2); Eosinophils Absolute Auto 0.1 K/mm3 (0-0.3); Eosinophils Percent Auto 2.2 % (0-4.4); Hematocrit 32.1 % (37.0-47.0); Immature Granulocyte Absolute 0.01 K/mm3 (0.00-0.031); Immature Granulocyte Percent A 0.2 % (0-0.5); Lymphocytes Absolute Auto 1.46 K/mm3 (0.9-3.2); Lymphocytes Percent Auto 22.9 % (18.3-44.2); Mean Corpuscular HGB Conc 31.2 g/dl (32-36); Mean Corpuscular Hemoglobin 32.7 pg (26-34); Mean Corpuscular Volume 104.9 fl (80-100); Mean Platelet Volume 11.1 fl (7.4-10.4); Monocytes Absolute Auto 0.5 K/mm3 (0.1-0.6); Monocytes Percent Auto 7.2 % (2.6-8.5); Neutrophils Absolute Auto 4.3 K/mm3 (1.3-6.7); Neutrophils Percent Auto 66.9 % (45.5-73.1); Platelet Count Result 143 k/mm3 (150-375); Red Blood Count 3.06 M/mm3 (4.2-5.4); Red Cell Distribution Width 14.2 % (11.5-14.5); White Blood Count 6.4 K/mm3 (4.5-10.0)
[2020-12-20 01:04] LABS: Anion Gap 15 mmol/L (8-16); Blood Urea Nitrogen 42 mg/dL (7-17); Calcium 8.9 mg/dL (8.4-10.2); Carbon Dioxide 29 mmol/L (22-30); Chloride 93 mmol/L (98-107); Estimated CRCL calculation 11 ml/min; Estimated Glomerular Filt Rate 9; Glucose 542 mg/dL (65-105); Potassium 5.4 mmol/L (3.4-5.0); Sodium 137 mmol/L (137-145); Troponin I 0.058 ng/mL (0.000-0.034)
[2020-12-20] MEDS: ASPIRIN 81 MG CHEWABLE TABLET 324 MG PO (01:11)
[2020-12-20 01:46] LABS: INR 1.1
[2020-12-20 01:47] LABS: Partial Thromboplastin Time 30.4 SECONDS (22.3-36.8)
--- NOTE | 2020-12-20 02:01 | ED.CHESTPAIN ---
HPI - Chest Pain General Chief Complaint: Chest Pain Stated Complaint: chest pain Time Seen by Provider: 12/20/20 02:00 Source: patient Mode of arrival: ambulatory Limitations: no limitations History of Present Illness HPI narrative: Patient is a 45-year-old female complaining of chest pain, midsternal, sharp, 6 out of 10, radiating to her left arm started 1 hour prior to arrival. Patient denies any shortness of breath, abdominal pain, nausea, vomiting, diaphoresis, fever or chills. Related Data Home Medications Medication Instructions Recorded Confirmed atorvastatin 80 mg PO HS 06/05/19 12/01/20 aspirin 81 mg PO DAILY 12/01/20 12/01/20 clopidogrel [Plavix] 75 mg PO DAILY 12/01/20 12/01/20 lisinopril 20 mg PO DAILY 12/01/20 12/01/20 sevelamer carbonate 800 mg PO TID 12/01/20 12/01/20 Allergies Allergy/AdvReac Type Severity Reaction Status Date / Time No Known Drug Allergies Allergy Unknown Verified 12/20/20 01:12 Review of Systems Review of Systems: All systems reviewed & are unremarkable except as noted in HPI and below Constitutional: Constitutional: Denies body ache(s), Denies chills, Denies excessive sweating, Denies fatigue, Denies fever(s), Denies headache(s), Denies lethargy, Denies malaise, Denies weakness and Denies weight loss Eyes: Eyes: Denies blurry vision, Denies change in vision and Denies loss of vision ENT: Denies dizziness, Denies ear discharge, Denies headache(s), Denies lip swelling, Denies epistaxis, Denies nasal congestion, Denies neck pain, Denies throat swelling and Denies tongue swelling Cardiovascular: Cardiovascular: Denies diaphoresis, Denies rapid heart rate, Denies edema, Denies irregular heart rhythm, Denies lightheadedness, Denies palpitations, Denies dyspnea and Denies dyspnea on exertion Respiratory: Respiratory: Denies chest congestion, Denies cough, Denies hemoptysis, Denies dyspnea and Denies dyspnea on exertion Gastrointestinal: Gastrointestinal: Denies abdominal pain, Denies melena, Denies hematochezia, Denies diarrhea, Denies nausea, Denies vomiting and Denies hematemesis Musculoskeletal: Musculoskeletal: Denies abnormal gait, Denies deformity, Denies joint swelling, Denies limited range of motion, Denies neck pain and Denies numbness Neurologic: Denies Abnormal speech present, Denies abnormal gait, Denies confusion, Denies dizziness, Denies headache(s), Denies focal weakness, Denies loss of vision, Denies numbness, Denies Other visual disturbances, Denies Sensory deficit (Neuro) and Denies weakness Psychiatric: Psychiatric: Denies confusion, Denies depression, Denies auditory hallucinations, Denies homicidal ideation and Denies suicidal ideation Endocrine: Endocrine: Denies cold intolerance, Denies excessive sweating, Denies fatigue, Denies heat intolerance and Denies palpitations Hematologic/Lymphatic: Hematologic/Lymphatic: Denies easy bleeding and Denies easy bruising Allergic/Immunologic: Allergic/Immunologic: Denies lip swelling, Denies throat swelling and Denies tongue swelling PMFSH Past Medical History Medical History Anasarca Chronic osteomyelitis Status post toe amputations Diabetes mellitus Erythropoietin deficiency anemia ESRD (end stage renal disease) on dialysis On hemodialysis since June 2019 Gastroparesis due to DM HTN (hypertension) Hyperlipidemia Papilledema Renal osteodystrophy Surgical History Surgical History Amputation of toe Two on the left AV fistula Left forearm H/O tubal ligation History of section, classical X2 History of tonsillectomy and adenoidectomy Hx of myringotomy S/P dialysis catheter insertion Right internal jugular June 2019 status post removal September 2019 S/P lateral meniscal repair S/P PICC central line placement Now removed S/P rotator cuff repair Family History Family History (Reviewed 12/20
[2020-12-20] MEDS: INSULIN HUMAN REGULAR (*BKC) 100 UNITS/ML 10 UNITS IV PUSH (02:12)
[2020-12-20 03:07] LABS: Glucose Point of Care 340 mg/dl (65-105)
--- NOTE | 2020-12-20 03:49 | ADMGEN ---
This patient, Pamela Bhat, was admitted to IMU Room 206-01. Patient/family oriented to hospital policies and general routines including ID bracelet, bed and alarms, visiting hours, pain management, procedures, bathroom and other care routines, personal items, smoking policy, room service/diet, and visiting hours. Information on how to activate the Rapid Response Team has been discussed. Patient/Family are encouraged to report perceived risks to care and to ask questions if they do not understand what they are told or what they should do.
[2020-12-20 04:07] LABS: Troponin I 0.055 ng/mL (0.000-0.034)
[2020-12-20 06:56] LABS: Troponin I 0.059 ng/mL (0.000-0.034)
[2020-12-20] MEDS: INSULIN ASPART (*BKC) 100 UNITS/ML SUB-Q (09:10)
[2020-12-20 09:17] LABS: Glucose Point of Care 252 mg/dl (65-105)
--- NOTE | 2020-12-20 13:07 | PM.IMHP ---
H&P: HPI History of Present Illness Date/Time: PATIENT ADMITTED UNDER OBSERVATION 12/20/20 13:07 Chief Complaint: Chest pain Narrative: 45-year-old female with history of CAD, diabetes, end-stage renal disease, hypertension, hyperlipidemia and tobacco abuse who presents to the ED with complaints of chest pain. Patient in August developed nausea when she was in [place]. She went to [facility] and was admitted. She did not have chest pain. She underwent left heart catheterization which showed that the left main coronary is large and patent. The LAD is moderate sized with mild plaquing in the proximal portion of the vessel and a 60-70% apical LAD lesion. The left circumflex artery has a moderate sized high obtuse marginal with diffuse disease in the proximal portion of the vessel about 40-50%. The circumflex has 40-50% diffuse narrowing in the proximal to midportion. The RCA has severe subtotal occlusion in the mid segment with MISAEL 2 flow distal to the stenotic portion. There is moderate 50% lesion in the proximal portion of the vessel. Patient underwent PCI with 2 drug-eluting stents placed. She states that her heart muscle is ?weak? with an EF of 26% although she does not have documentation of this. She has been compliant with her aspirin and Plavix and has not missed any doses. 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 She did not have any orthopnea symptoms the night prior. She sleeps with 2 pillows normally. She has a dry cough. The chest pain was substernal. She states the pain was pleuritic but not positional. She states the pain radiated to her back but not to her left arm as mentioned in the ED note. She states ?my whole left side went numb?. She describes as numbness and tingling in left arm and leg. She was able to walk but was ?shaky? in the left leg. Left leg symptoms have resolved. Left hand is still numb but no weakness. She felt hot but denied diaphoresis. No nausea or vomiting. She did have a headache. No vision changes. No melena or hematochezia. No dysuria or hematuria. She does make urine. Her last dialysis was on Friday and states that she had a full treatment. She has been compliant with avoiding excessive salt and excessive fluids. She last saw the dashboard developer 3 weeks ago. She presented to the ED in the supervisor building maintenance hours of admission. Temperature was 99.7?. She was hemodynamically stable. EKG showed normal sinus rhythm with borderline ST T wave changes in the inferior leads. Potassium was 5.4. Her glucose was 542. Troponin was elevated to 0.059 but overall flat. Chest x-ray shows unchanged scarring in the bilateral lower lobes and cardiomegaly. Her hyperglycemia was treated. She was given aspirin. She was admitted for further care. Review of Systems Review of Systems: All systems reviewed & are unremarkable except as noted in HPI and below PMFSH Past Medical History Medical History (Updated 12/22/20 @ 14:01 by Harmeet Alvarenga MD) Anasarca CAD (coronary artery disease) RCA stent placed in August 2020 Chiari I malformation Chronic osteomyelitis Status post toe amputations CVA (cerebral vascular accident) Small old lacunar infarct at the head of the right caudate nucleus. Diabetes mellitus Erythropoietin deficiency anemia Esophagitis determined by endoscopy EGD December ESRD (end stage renal disease) on dialysis On hemodialysis since June 2019 Gastroparesis due to DM HTN (hypertension) Hyperlipidemia Papilledema Renal osteodystrophy Surgical History Surgical History Amputation of toe Two on the left AV fistula Left forearm H/O tubal ligation History of section, classical X2 History of tonsillectomy and adenoidectomy Hx of myringotomy S/P dialysis catheter inser
[2020-12-20 13:18] LABS: Glucose Point of Care 292 mg/dl (65-105)
--- NOTE | 2020-12-20 15:59 | PM.CNCAR ---
Assessment and Plan Assessment and plan (1) Chest pain: Qualifiers: Chest pain type: unspecified Qualified Code(s): R07.9 - Chest pain, unspecified Code(s): R07.9 - Chest pain, unspecified Status: Acute Assessment and Plan: Atypical. Probably musculoskeletal or costochondritis. (2) CAD (coronary artery disease): Code(s): I25.10 - Atherosclerotic heart disease of redding coronary artery without angina pectoris Status: Acute Assessment and Plan: Continue dual antiplatelet agents. (3) Elevated troponin: Code(s): R77.8 - Other specified abnormalities of plasma proteins Status: Acute Assessment and Plan: Mild and flat at .05 and less than 12/07/20 at 0.1. Probably related to ESRD, hypertension and systolic dysfunction. (4) Systolic heart failure: Code(s): I50.20 - Unspecified systolic (congestive) heart failure Status: Acute Assessment and Plan: EF was 26% in August at [facility] per patient. On Coreg and Lisinopril. Check echo. (5) End stage renal disease on dialysis: Code(s): N18.6 - End stage renal disease; Z99.2 - Dependence on renal dialysis Status: Acute Assessment and Plan: Receiving HD. (6) Hypertension: Qualifiers: Hypertension type: unspecified Qualified Code(s): I10 - Essential (primary) hypertension Code(s): I10 - Essential (primary) hypertension Status: Chronic Assessment and Plan: Mildly high. Will adjust BP meds accordingly as HD can lower BP. (7) Hyperlipidemia: Code(s): E78.5 - Hyperlipidemia, unspecified Status: Chronic Assessment and Plan: On Atorvastatin. (8) Diabetes mellitus: Qualifiers: Diabetes mellitus type: type 1 Diabetes mellitus complication status: with hyperglycemia Qualified Code(s): E10.65 - Type 1 diabetes mellitus with hyperglycemia Code(s): E11.9 - Type 2 diabetes mellitus without complications Status: Chronic Assessment and Plan: Managed per hospitalist. History of Present Illness History of Present Illness Consult date/time: 12/20/20 15:59 Reason for consult: CP. 45 yr old woman presented to ER for chest pain. She has a history of CAD with 2 stents to RCA in August 2020 at [facility], ESRD on HD since 2019, Stroke with right sided weakness that resolved in 2016, Hypertension, dyslipidemia, DM. Reports that this morning she was just lying down when she had sharp chest just left of her sternum radiating to her back associated with sob and worse with inspiration. It lasted about 2 hours and has not returned. She also reports left leg and left arm numbness today but the left leg numbess resolved. States that her EF was low at 26% in August at [facility] and they wanted to recheck echo in January. She can walk 1/2 mile before she gets out of breath. Admits to smoking 1/4 ppd. Admits to orthopnea. Denies dizziness, edema, palpitations. Reason For Visit: Chest Pain, Hyperglycemia, Hyperkalemia Review of Systems Review of Systems: All systems reviewed & are unremarkable except as noted in HPI and below Constitutional: Constitutional: Reports as per HPI, Denies chills and Denies fever(s) Cardiovascular: Cardiovascular: Reports as per HPI, Reports chest pain, Denies irregular heart rhythm, Denies leg edema and Denies lightheadedness Respiratory: Respiratory: Reports as per HPI and Reports dyspnea Gastrointestinal: Gastrointestinal: Reports as per HPI and Denies abdominal pain Genitourinary: Genitourinary: Reports as per HPI and Denies dysuria Musculoskeletal: Musculoskeletal: Reports as per HPI Neurologic: Reports as per HPI, Denies dizziness and Denies syncope [facility] Past Medical History Medical History (Updated 12/20/20 @ 16:05 by Misael Ahmadi DO) Anasarca CAD (coronary artery disease) RCA stent placed in August 2020 Chiari I malformation Chronic osteomyelitis Status post toe amputations CVA (cerebral
--- NOTE | 2020-12-20 17:40 | PM.PNNEP ---
Progress Note: A&P Assessment and Plan (1) End stage renal disease: Code(s): N18.6 - End stage renal disease Status: Chronic Assessment and Plan: HD today and continue Fri/Fri/Friday dialysis schedule continue efforts to optimize electrolytes, volume status, and clearance. FULL CONSULT to follow. Subjective Date/time seen: 12/20/20 17:40 Tolerating dialysis treatment at the time of my visit (seen on HD treatment ~ 5:30PM); reports for chest pain at this time; no other apparent issues or complaints voiced; no other events overnight or earlier this AM; no apparent distress currently. Exam Narrative: Exam Narrative: General: WD/WN female in NAD Heart: normal S1 and S2; no rub Lungs: clear to auscultation Abdomen: soft, nontender, nondistended, positive bowel sounds Extremities: no cyanosis or clubbing; no edema Skin: warm and dry Objective Data Vital Signs Vital Signs: Vital Signs Temp Pulse Pulse Resp BP Pulse Ox 12/20/20 17:08 37.1 C 80 18 12/20/20 16:55 37.1 C 80 18 12/20/20 16:00 80 14 98 12/20/20 15:45 79 157/76 H 12/20/20 14:47 78 157/74 H 12/20/20 14:00 80 12/20/20 12:00 36.9 C 82 14 139/59 L 98 12/20/20 10:00 81 12/20/20 08:00 36.6 C 78 16 141/60 H 97 12/20/20 06:00 72 12/20/20 03:50 76 12/20/20 03:15 36.6 C 79 18 138/61 100 12/20/20 03:01 79 16 145/66 H 100 12/20/20 03:00 79 19 99 12/20/20 02:45 80 19 100 12/20/20 02:31 79 19 153/65 H 98 12/20/20 02:30 79 21 H 98 12/20/20 02:15 81 18 100 12/20/20 02:01 79 21 H 148/64 H 99 12/20/20 02:00 79 18 99 12/20/20 01:45 78 22 H 95 12/20/20 01:31 80 149/64 H 96 12/20/20 01:30 81 19 96 06/23/21 01:15 82 22 H 100 12/20/20 01:12 82 22 H 98 12/20/20 01:11 81 19 150/65 H 98 12/20/20 00:07 37.6 C H 97 20 99 Intake/Output Intake/Output: Intake & Output 12/17/20 12/18/20 12/19/20 12/20/20 23:59 23:59 23:59 23:59 Intake Total 840 Output Total 3500 Balance -2660 Meds/Results Medications: Active Medications Generic Name Dose Route Start Last Admin Trade Name Freq PRN Reason Stop Dose Admin Acetaminophen 650 mg 12/20/20 13:59 Acetaminophen 325 Mg Tablet PO Q4H PRN Mild Pain (1-3) Or Fever Amlodipine Besylate 5 mg 12/21/20 09:00 Amlodipine Besylate 5 Mg Tablet PO DAILY [facility] Aspirin 81 mg 12/20/20 14:00 Aspirin 81 Mg Enteric Tablet PO DAILY [facility] Atorvastatin Calcium 80 mg 12/20/20 21:00 Atorvastatin 40 Mg Tablet PO HS [facility] Carvedilol 6.25 mg 12/20/20 21:00 Carvedilol 6.25 Mg Tablet PO Q12HR [facility] Clopidogrel Bisulfate 75 mg 12/20/20 14:00 Clopidogrel Bisulfate 75 Mg Tablet PO DAILY [facility] Dextrose 12.5 gm 12/20/20 02:14 Dextrose 50% 25 Gm/50 Ml Syringe IV PUSH PRN PRN Hypoglycemia Protocol Fludrocortisone Acetate 0.1 mg 12/21/20 09:00 Fludrocortisone Acetate 0.1 Mg Tablet PO DAILY [facility] Furosemide 80 mg 12/21/20 09:00 Furosemide 40 Mg Tablet PO DAILY [facility] Glucagon 1 mg 12/20/20 14:49 Glucagon For Inj 1 Mg Vial IM PRN PRN Hypoglycemia Protocol Glucose 15 gm 12/20/20 02:14 Glucose Oral Gel 15 Gm Of Glucse In 37.5 Gm Tube PO PRN PRN Hypoglycemia Protocol Glucose 15 gm 12/20/20 14:49 Glucose Oral Gel 15 Gm Of Glucse In 37.5 Gm Tube PO PRN PRN Hypoglycemia Protocol Heparin Sodium (Porcine) 5,000 units 12/20/20 21:00 Heparin Sodium 5,000 Units/Ml Vial SUB-Q Q12HR [facility] Dextrose 1,000 mls @ 100 mls/hr 12/20/20 14:49 Dextrose 5% 1,000 Ml IVPB PRN PRN Hypoglycemia Protocol Insulin Aspart 7 units 12/20/20 17:00 Insulin Aspart (*Bkc) 100 Units/Ml SUB-Q 01/19/21 17:01 TIDWM [facility] Insulin Aspart 3 - 6 units 12/20/20 17:00
[2020-12-20] MEDS: ASPIRIN 81 MG ENTERIC TABLET PO (18:13)
[2020-12-20] MEDS: CLOPIDOGREL BISULFATE 75 MG TABLET PO (18:13)
[2020-12-20] MEDS: SEVELAMER CARBONATE 800 MG TABLET 1600 MG PO (18:14)
[2020-12-20 18:16] LABS: Glucose Point of Care 198 mg/dl (65-105)
[2020-12-20] MEDS: INSULIN ASPART (*BKC) 100 UNITS/ML 7 UNITS SUB-Q (18:16)
[2020-12-20 20:07] LABS: Glucose Point of Care 205 mg/dl (65-105)
[2020-12-20] MEDS: HEPARIN SODIUM 5,000 UNITS/ML VIAL 5000 UNITS SUB-Q (20:17)
[2020-12-20] MEDS: carvediloL 6.25 MG TABLET PO (20:17)
[2020-12-20] MEDS: ATORVASTATIN 40 MG TABLET 80 MG PO (20:17)
[2020-12-20] MEDS: METOCLOPRAMIDE HCL 5 MG TABLET PO (20:17)
[2020-12-20] MEDS: INSULIN GLARGINE (*BKC) 100 UNITS/ML 12 UNITS SUB-Q (20:18)
[2020-12-21] VITALS (13 sets, daily range): BP systolic 133–146; BP diastolic 51–68; PULSE 72–80; RESP 12–20; TEMP 36.6–37.4; O2SAT 97–100
--- NOTE | 2020-12-21 | ECHO_ITS ---
Patient Info Name: Pamela Bhat Age: 45 years : 1975 Gender: Female Ht: 65 in Wt: 152 lbs BSA: 1.79 m2 HR: 78 bpm BP: 139 / 58 mmHg Technical Quality: Good Exam Date: 12/21/2020 10:56 AM Exam Location: [facility] Pulmonary Exam Room: [facility] Patient Status: Inpatient Admit Date: 12/20/2020 Staff Ordering Physician: Misael Ahmadi DO Phys Assistant: Amaya Muse RDCS Attending Provider: Denise Barr MD Referring Physician: Galdino CASTELLANOS; Exam Type: CA echo doppler color flow Study Info Indications - chest pain Complete two-dimensional, color flow and Doppler transthoracic echocardiogram is performed. Summary 1. Complete two-dimensional, color flow and Doppler transthoracic echocardiogram is performed. 2. Left ventricular chamber dimension is moderately enlarged. 3. Left ventricular systolic function is severely reduced, estimated at 30-35%. 4. There is mildly increased left ventricular wall thickness. 5. The left ventricular diastolic function is abnormal. 6. E/e' 20 is elevated. 7. Left atrial chamber dimension is moderately enlarged. 8. There is mild aortic valve sclerosis. 9. There is mild mitral valve regurgitation. 10. There is mild tricuspid valve regurgitation. 11. No pulmonary hypertension, estimated pulmonary arterial systolic pressure is 39 mmHg. 12. There is trivial pericardial effusion. Left Ventricle E/e' 20 is elevated. Left ventricular chamber dimension is moderately enlarged. Left ventricular systolic function is severely reduced, estimated at 30-35%. There is mildly increased left ventricular wall thickness. The left ventricular diastolic function is abnormal. Right Ventricle Right ventricular chamber dimension is normal. Right ventricular systolic function is normal. Left Atria Left atrial chamber dimension is moderately enlarged. Right Atria Right atrial chamber dimension is normal. Aortic Valve The aortic valve is trileaflet. There is mild aortic valve sclerosis. There is no aortic valve stenosis. There is no aortic valve regurgitation. Pulmonic Valve There is no pulmonic regurgitation. Mitral Valve There is no mitral valve stenosis. There is mild mitral valve regurgitation. Tricuspid Valve There is mild tricuspid valve regurgitation. No pulmonary hypertension, estimated pulmonary arterial systolic pressure is 39 mmHg. Pericardium/Pleural There is trivial pericardial effusion. Inferior Vena Cava Normal inferior vena cava with >50% collapse upon inspiration consistent with normal right atrial pressure, 5 mmHg. Aorta The aortic root size at the sinus of Valsalva is normal. Left Ventricular Outflow Tract Name Value Normal LVOT 2D LVOT Diameter 2.0 cm LVOT Doppler LVOT Peak Gradient 4 mmHg LVOT Mean Gradient 2 mmHg LVOT VTI 18 cm LVOT VTI/AV VTI Ratio 0.7 LVOT Stroke Volume 56 ml LVOT CO 13.1 l/min LVOT CI
[2020-12-21 05:10] LABS: Hemoglobin A1C 9.2 % (<5.7)
[2020-12-21 05:15] LABS: Albumin Level 3.7 g/dL (3.5-5.1); Anion Gap 8 mmol/L (8-16); Blood Urea Nitrogen 30 mg/dL (7-17); Carbon Dioxide 30 mmol/L (22-30); Chloride 100 mmol/L (98-107); Estimated CRCL calculation 14 ml/min; Estimated Glomerular Filt Rate 12; Glucose 176 mg/dL (65-105); Phosphorus 6.9 mg/dL (2.5-4.5); Potassium 4.9 mmol/L (3.4-5.0); Sodium 138 mmol/L (137-145)
[2020-12-21 06:20] LABS: Folic Acid 10.1 ng/mL (2.76->20)
[2020-12-21] MEDS: INSULIN ASPART (*BKC) 100 UNITS/ML 7 UNITS SUB-Q ×2 (08:47→17:09)
[2020-12-21] MEDS: FLUDROCORTISONE ACETATE 0.1 MG TABLET PO (08:48)
[2020-12-21] MEDS: METOCLOPRAMIDE HCL 5 MG TABLET PO ×3 (08:48→20:48)
[2020-12-21] MEDS: SEVELAMER CARBONATE 800 MG TABLET 1600 MG PO ×2 (08:48→12:04)
[2020-12-21] MEDS: amLODIPine BESYLATE 5 MG TABLET PO (08:48)
[2020-12-21] MEDS: carvediloL 6.25 MG TABLET PO ×2 (08:48→20:48)
[2020-12-21] MEDS: HEPARIN SODIUM 5,000 UNITS/ML VIAL 5000 UNITS SUB-Q ×2 (08:51→20:48)
[2020-12-21 08:57] LABS: Glucose Point of Care 151 mg/dl (65-105)
--- NOTE | 2020-12-21 09:21 | PM.PNCARD ---
Progress Note: A&P Assessment and Plan (1) Chest pain: Qualifiers: Chest pain type: unspecified Qualified Code(s): R07.9 - Chest pain, unspecified Code(s): R07.9 - Chest pain, unspecified Status: Acute Assessment and Plan: Atypical and resolving. Probably musculoskeletal or costochondritis. (2) CAD (coronary artery disease): Code(s): I25.10 - Atherosclerotic heart disease of [place] coronary artery without angina pectoris Status: Acute Assessment and Plan: August 2020 at [facility]: Apical LAD 60-70% stenosis, LCx 40-50% diffuse in prox-mid, RCA with subtotal occlusion in mid and 50% prox; PCI with 2 DALY to mid RCA. Continue dual antiplatelet agents. (3) Elevated troponin: Code(s): R77.8 - Other specified abnormalities of plasma proteins Status: Acute Assessment and Plan: Mild and flat at .05 and less than 12/07/20 at 0.1. Probably related to ESRD, hypertension and systolic dysfunction. (4) Systolic heart failure: Code(s): I50.20 - Unspecified systolic (congestive) heart failure Status: Acute Assessment and Plan: EF was 26% in August at [facility] per patient. On Coreg and Lisinopril. Check echo. (5) End stage renal disease on dialysis: Code(s): N18.6 - End stage renal disease; Z99.2 - Dependence on renal dialysis Status: Acute Assessment and Plan: Receiving HD. (6) Hypertension: Qualifiers: Hypertension type: unspecified Qualified Code(s): I10 - Essential (primary) hypertension Code(s): I10 - Essential (primary) hypertension Status: Chronic Assessment and Plan: Stable. (7) Hyperlipidemia: Code(s): E78.5 - Hyperlipidemia, unspecified Status: Chronic Assessment and Plan: On Atorvastatin. (8) Diabetes mellitus: Qualifiers: Diabetes mellitus type: type 1 Diabetes mellitus complication status: with hyperglycemia Qualified Code(s): E10.65 - Type 1 diabetes mellitus with hyperglycemia Code(s): E11.9 - Type 2 diabetes mellitus without complications Status: Chronic Assessment and Plan: Managed per hospitalist. Subjective Date/time seen: 12/21/20 09:21 Reports only mild sharp mid chest pain that is better. No sob. Exam Const: General: cooperative, healthy appearing and comfortable Resp: Auscultation: clear to auscultation bilaterally, no crackles, no rales, no rhonchi and no wheezes Cardio: Jugular venous distension: no JVD Rate: regular rate Rhythm: regular rhythm Heart sounds: no murmurs Peripheral pulses: dorsalis pedis present GI: GI Palp: No abdominal tenderness and Yes Soft to palpation Neuro: General: oriented to person, oriented to place and oriented to time Extrem: Right lower extremity: edema Left lower extremity: edema Other: Trace edema of legs Objective Data Vital Signs Vital Signs: Vital Signs - 24 hr 12/20/20 10:00 12/20/20 12:00 12/20/20 14:00 Temperature 98.5 F Pulse Rate 81 82 80 Pulse Rate [Apical] Respiratory Rate 14 Blood Pressure 139/59 L Pulse Oximetry 98 12/20/20 14:47 12/20/20 15:45 12/20/20 16:00 Temperature Pulse Rate 78 79 80 Pulse Rate [Apical] Respiratory Rate 14 Blood Pressure 157/74 H 157/76 H Pulse Oximetry 98 12/20/20 16:55 12/20/20 17:08 12/20/20 18:00 Temperature 98.7 F 98.7 F Pulse Rate 79 Pulse Rate [Apical] 80 80 Respiratory Rate 18 18 Blood Pressure Pulse Oximetry 12/20/20 18:05 12/20/20 18:22 12/20/20 19:58 Temperature 98.6 F 97.2 F L 97.7 F Pulse Rate 82 80 79 Pulse Rate [Apical] Respiratory Rate 18 20 20 Blood Pressure 140/70 158/60 H 137/49 L Pulse Oximetry 98 97 12/20/20 20:00 12/20/20 20:17 12/20/20 22:00 Temperature Pulse Rate 79 76 76 Pulse Rate [Apical] Respiratory Rate 20 Blood Pressure Pulse Oximetry 97 12/20/20 23:30 12/21/20 00:00 12/21/20 02:00 Temperature 97.8 F P
[2020-12-21] MEDS: ONDANSETRON HCL ODT 4 MG TABLET PO ×2 (09:32→14:16)
[2020-12-21] MEDS: lisinopriL 20 MG TABLET PO (12:04)
[2020-12-21] MEDS: CLOPIDOGREL BISULFATE 75 MG TABLET PO (12:04)
[2020-12-21] MEDS: ASPIRIN 81 MG ENTERIC TABLET PO (12:04)
[2020-12-21] MEDS: FUROSEMIDE 40 MG TABLET 80 MG PO (12:04)
[2020-12-21 12:14] LABS: Glucose Point of Care 99 mg/dl (65-105)
--- NOTE | 2020-12-21 15:47 | PM.IMPN ---
Progress Note: A&P Assessment and Plan (1) Nausea and vomiting: Qualifiers: Vomiting Intractability: non-intractable Vomiting type: unspecified Qualified Code(s): R11.2 - Nausea with vomiting, unspecified Code(s): R11.2 - Nausea with vomiting, unspecified Status: Acute Assessment and Plan: Patient now having n/v with each meal. No BM x 1 week. She does have gastroparesis and is on chronic Reglan. Will check obstructive series. Add Mirlax. Dulcolax supp once. Monitor overnight. (2) Chest pain: Qualifiers: Chest pain type: unspecified Qualified Code(s): R07.9 - Chest pain, unspecified Code(s): R07.9 - Chest pain, unspecified Status: Acute Assessment and Plan: Patient with chest pain at rest that was positional. She also states the pain is pleuritic. Pain also associated with radiculopathy symptoms with numbness and tingling in her left hand and foot. Troponin elevated but flat. LE doppler negative for DVT. EKG does not show any significant change when compared to prior. Chest x-ray also showing chronic findings. Cardiology evaluated the patietn and felt more likely musculoskeletal. Appreciate their input. (3) Elevated troponin: Code(s): R77.8 - Other specified abnormalities of plasma proteins Status: Acute Assessment and Plan: Troponin are elevated but flat. Current levels are even lower than they were earlier this month. During that admission, it was felt the elevated troponin were related to her end-stage renal disease. This also appears to be the case and less likely ischemic heart disease. Continue medical management for her CAD. (4) CAD (coronary artery disease): Code(s): I25.10 - Atherosclerotic heart disease of [place] coronary artery without angina pectoris Status: Acute Assessment and Plan: Patient had a RCA stent x2 placed in August. She tolerated this well. We have continued her Plavix, aspirin, Lipitor and Coreg. (5) Severe hyperglycemia due to diabetes mellitus: Code(s): E11.65 - Type 2 diabetes mellitus with hyperglycemia Status: Acute Assessment and Plan: A1c 9.2. Glucose on presentation was 542. She was treated with insulin. Anion gap was 15 but patient denied any nausea or vomiting at that time. AG now 8 but with N/V today. Continue sliding scale protocol. Continue diabetic diet. Monitor closely for evidence of hypoglycemia since not able to tolerate oral intake (6) Acute hyperkalemia: Code(s): E87.5 - Hyperkalemia Status: Acute Assessment and Plan: Potassium mildly elevated 5.4 on admission. Most likely related to her end-stage renal disease and need for dialysis. Potassium corrected with dialysis. (7) End stage renal disease on dialysis: Code(s): N18.6 - End stage renal disease; Z99.2 - Dependence on renal dialysis Status: Acute Assessment and Plan: Patient tolerated dialysis yesterday without issue. Nephrology following and appreciate their input (8) Numbness and tingling in left hand: Code(s): R20.0 - Anesthesia of skin; R20.2 - Paresthesia of skin Status: Acute Assessment and Plan: Patient has some weakness in the left upper and lower extremity probably related to her old stroke. Unclear if the numbness and tingling is related to her chest pain or other etiology. Symptoms resolving. (9) Tobacco dependence: Code(s): F17.200 - Nicotine dependence, unspecified, uncomplicated Status: Chronic Assessment and Plan: Patient was educated about the benefits of smoking cessation. (10) Hypertension: Qualifiers: Hypertension type: unspecified Qualified Code(s): I10 - Essential (primary) hypertension Code(s): I10 - Essential (primary) hypertension Status: Chronic Assessment and Plan: Patient's blood pressure was reviewed on 12/21. Blood p
--- NOTE | 2020-12-21 16:20 | PM.CNNEP ---
Assessment and Plan Assessment and plan (1) End stage renal disease: Code(s): N18.6 - End stage renal disease Status: Chronic Assessment and Plan: HD yesterday and continue Fri/Fri/Friday schedule follow electrolytes, volume status, and clearance (2) Chest pain: Qualifiers: Chest pain type: unspecified Qualified Code(s): R07.9 - Chest pain, unspecified Code(s): R07.9 - Chest pain, unspecified Status: Acute Assessment and Plan: as noted by history continue medical management Cardiology following (3) Hypertension: Qualifiers: Hypertension type: unspecified Qualified Code(s): I10 - Essential (primary) hypertension Code(s): I10 - Essential (primary) hypertension Status: Chronic Assessment and Plan: reasonably control at this time follow trend of hemodynamics (4) Anemia: Code(s): D64.9 - Anemia, unspecified Status: Acute Assessment and Plan: likely related to ESRD Epogen with HD follow trend of H/H (5) Diabetes: Code(s): E11.9 - Type 2 diabetes mellitus without complications Status: Chronic Assessment and Plan: follow accuchecks glycemic control Will continue to follow. History of Present Illness Reason for Consult Consult date: 12/21/20 Reason for consult: end stage renal disease Chief Complaint Chief complaint: Chest Pain, Hyperglycemia, Hyperkalemia History of Present Illness Narrative: The patient is a 45-year-old female with an extensive past medical history as outlined below who presented to [facility] ER with complaints of chest pain. 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 The episode lasted about 2 hours and seem to be worse with inspiration. She denied any orthopnea symptoms at that time. Other associated symptoms including left leg pain and left arm numbness but each of these symptoms resolved on their own. She felt warm but no overt fevers or so diaphoresis were noted and she denies any nausea, vomiting, vision changes, dysuria, hematuria, or vision changes but did admit to headache. Due to these symptoms, she presented to the emergency room for further evaluation Workup and evaluation emergency room demonstrated the patient to be hemodynamically stable with an EKG that showed normal sinus rhythm with borderline ST T wave changes in the inferior leads. Routine blood tests were consistent with her known history of end-stage renal disease without any acute electrolyte abnormalities. Chest x-ray demonstrated unchanged scarring in the bilateral lobes as well as known cardiomegaly and her initial troponin was elevated but relatively flat in comparison to previous values. She was subsequently admitted to the hospital for further evaluation and therapy. Since her admission, she has been seen by Cardiology and had a echocardiogram done which did demonstrate a depressed ejection fraction of around 30-35%. She has been continued on aggressive medical management therapy with no plans for any other type of intervention as she recently had a cardiac catheterization done at [facility] approximately 3 months ago as documented. Renal consultation was requested due to her end-stage renal disease. The patient normally dialyzes on a Friday, Friday, Friday dialysis schedule at [facility] under the care of Dr. Gregory Forbes. She received dialysis on Friday at her outpatient dialysis unit and subsequently here on Friday to maintain her dialysis schedule. She has been compliant with her dialysis treatments in general and her monthly CKD parameters appear to be stable as well. Currently, at the time my visit, she appears to be in no acute distress. Review
[2020-12-21 17:05] LABS: Glucose Point of Care 270 mg/dl (65-105)
[2020-12-21] MEDS: INSULIN ASPART (*BKC) 100 UNITS/ML SUB-Q (17:10)
[2020-12-21] MEDS: polyethylene glycoL 3350 17 GM POWD.PACK PO (17:10)
[2020-12-21 20:17] LABS: Glucose Point of Care 250 mg/dl (65-105)
[2020-12-21] MEDS: INSULIN GLARGINE (*BKC) 100 UNITS/ML 15 UNITS SUB-Q (20:48)
[2020-12-21] MEDS: ATORVASTATIN 40 MG TABLET 80 MG PO (20:48)
[2020-12-22] VITALS (24 sets, daily range): BP systolic 110–163; BP diastolic 50–76; PULSE 68–78; RESP 12–16; TEMP 36.4–37.1; O2SAT 98–100
[2020-12-22 05:31] LABS: Hemoglobin 9.4 g/dL (12.0-15.0); Mean Corpuscular HGB Conc 30.3 g/dl (32-36); Mean Corpuscular Hemoglobin 32.5 pg (26-34); Mean Corpuscular Volume 107.3 fl (80-100); Platelet Count Result 96 k/mm3 (150-375); Red Blood Count 2.89 M/mm3 (4.2-5.4); Red Cell Distribution Width 14.1 % (11.5-14.5)
[2020-12-22 05:45] LABS: Alanine Aminotransferase 37 U/L (4-35); Albumin Level 3.9 g/dL (3.5-5.1); Alkaline Phosphatase 142 U/L (38-126); Anion Gap 12 mmol/L (8-16); Aspartate Amino Transferase 38 U/L (14-36); Bilirubin,Total 0.4 mg/dL (0.2-1.3); Blood Urea Nitrogen 55 mg/dL (7-17); Calcium 8.6 mg/dL (8.4-10.2); Carbon Dioxide 26 mmol/L (22-30); Chloride 98 mmol/L (98-107); Estimated CRCL calculation 11 ml/min; Estimated Glomerular Filt Rate 9; Glucose 209 mg/dL (65-105); Lipase 326 U/L (23-300); Magnesium 2.1 mg/dL (1.6-2.3); Phosphorus 8.4 mg/dL (2.5-4.5); Potassium 5.7 mmol/L (3.4-5.0); Sodium 136 mmol/L (137-145)
--- NOTE | 2020-12-22 07:49 | PM.PNCARD ---
Progress Note: A&P Assessment and Plan (1) Chest pain: Qualifiers: Chest pain type: unspecified Qualified Code(s): R07.9 - Chest pain, unspecified Code(s): R07.9 - Chest pain, unspecified Status: Acute Assessment and Plan: Atypical and resolved. Probably musculoskeletal or costochondritis. (2) CAD (coronary artery disease): Code(s): I25.10 - Atherosclerotic heart disease of [place] coronary artery without angina pectoris Status: Acute Assessment and Plan: August 2020 at [facility]: Apical LAD 60-70% stenosis, LCx 40-50% diffuse in prox-mid, RCA with subtotal occlusion in mid and 50% prox; PCI with 2 DALY to mid RCA. Continue dual antiplatelet agents. (3) Elevated troponin: Code(s): R77.8 - Other specified abnormalities of plasma proteins Status: Acute Assessment and Plan: Mild and flat at .05 and less than 12/07/20 at 0.1. Probably related to ESRD, hypertension and systolic dysfunction. (4) Systolic heart failure: Code(s): I50.20 - Unspecified systolic (congestive) heart failure Status: Acute Assessment and Plan: EF was 26% in August at [facility] per patient. Echo on 12/21/20 EF 30-35%, mild LVH, mod LVE, diastolic dysfunction (E/e' 20), mild MR/TR, trace pericardial effusion. Discussed Life Vest to prevent sudden cardiac arrest but she is not interested. On Coreg and Lisinopril. Will sign off, and please call with any questions. She needs to keep her f/u appointment with her regular geotechnical laboratory technician at [facility], and she has an echo scheduled in January with them. She does not recall the geotechnical laboratory technician's name. (5) End stage renal disease on dialysis: Code(s): N18.6 - End stage renal disease; Z99.2 - Dependence on renal dialysis Status: Acute Assessment and Plan: Receiving HD. (6) Hypertension: Qualifiers: Hypertension type: unspecified Qualified Code(s): I10 - Essential (primary) hypertension Code(s): I10 - Essential (primary) hypertension Status: Chronic Assessment and Plan: Stable. (7) Hyperlipidemia: Code(s): E78.5 - Hyperlipidemia, unspecified Status: Chronic Assessment and Plan: On Atorvastatin. (8) Diabetes mellitus: Qualifiers: Diabetes mellitus type: type 1 Diabetes mellitus complication status: with hyperglycemia Qualified Code(s): E10.65 - Type 1 diabetes mellitus with hyperglycemia Code(s): E11.9 - Type 2 diabetes mellitus without complications Status: Chronic Assessment and Plan: Managed per hospitalist. Subjective Date/time seen: 12/22/20 07:49 Denies chest pain or sob. Exam Const: General: cooperative, healthy appearing and comfortable Resp: Auscultation: clear to auscultation bilaterally, no crackles, no rales, no rhonchi and no wheezes Cardio: Jugular venous distension: no JVD Rate: regular rate Rhythm: regular rhythm Heart sounds: no murmurs Peripheral pulses: dorsalis pedis present GI: GI Palp: No abdominal tenderness and Yes Soft to palpation Neuro: General: oriented to person, oriented to place and oriented to time Extrem: Right lower extremity: edema Left lower extremity: edema Other: Trace edema of legs Objective Data Vital Signs Vital Signs: Vital Signs - 24 hr 12/21/20 08:00 12/21/20 09:59 12/21/20 12:00 Temperature 99.1 F 99.4 F Pulse Rate 76 79 76 Respiratory Rate 12 12 Blood Pressure 140/66 133/57 L Pulse Oximetry 97 98 12/21/20 13:58 12/21/20 16:00 12/21/20 18:00 Temperature 98.2 F Pulse Rate 77 74 80 Respiratory Rate 12 Blood Pressure 146/68 H Pulse Oximetry 98 12/21/20 20:00 12/21/20 20:48 12/21/20 22:00 Temperature 98.6 F Pulse Rate 76 77 76 Respiratory Rate 12 Blood Pressure 140/51 L Pulse Oximetry 100 12/22/20 00:00 12/22/20 02:00 12/22/20 04:00 Temperature 98.7 F 98.6 F Pulse Rate 71 69 69 Respiratory Rate 12 12 Blood Pressure 120/50 L 125/6
[2020-12-22 08:45] LABS: Glucose Point of Care 190 mg/dl (65-105)
[2020-12-22] MEDS: INSULIN ASPART (*BKC) 100 UNITS/ML 7 UNITS SUB-Q (08:50)
[2020-12-22] MEDS: FUROSEMIDE 40 MG TABLET 80 MG PO (08:51)
[2020-12-22] MEDS: ASPIRIN 81 MG ENTERIC TABLET PO (08:51)
[2020-12-22] MEDS: METOCLOPRAMIDE HCL 5 MG TABLET PO ×2 (08:51→15:15)
[2020-12-22] MEDS: CLOPIDOGREL BISULFATE 75 MG TABLET PO (08:51)
[2020-12-22] MEDS: lisinopriL 20 MG TABLET PO (08:52)
[2020-12-22] MEDS: SEVELAMER CARBONATE 800 MG TABLET 1600 MG PO ×2 (08:52→15:15)
[2020-12-22] MEDS: carvediloL 6.25 MG TABLET PO (08:52)
[2020-12-22] MEDS: polyethylene glycoL 3350 17 GM POWD.PACK PO (08:53)
[2020-12-22] MEDS: FLUDROCORTISONE ACETATE 0.1 MG TABLET PO (08:53)
[2020-12-22] MEDS: amLODIPine BESYLATE 5 MG TABLET PO (08:53)
[2020-12-22 10:06] LABS: Hepatitis B Surface Antigen Negative (Negative)
[2020-12-22 10:11] LABS: Hepatitis B Core IgM Result Negative (Negative)
--- NOTE | 2020-12-22 11:14 | PC.NURSE ---
Card[facility] Rehab Services flyer was given to patient with her cardiac admissions folder.
--- NOTE | 2020-12-22 12:32 | PM.PNNEP ---
Progress Note: A&P Assessment and Plan (1) End stage renal disease: Code(s): N18.6 - End stage renal disease Status: Chronic Assessment and Plan: HD todayand continue Fri/Fri/Friday schedule follow electrolytes, volume status, and clearance (2) Chest pain: Qualifiers: Chest pain type: unspecified Qualified Code(s): R07.9 - Chest pain, unspecified Code(s): R07.9 - Chest pain, unspecified Status: Acute Assessment and Plan: as noted by history continue medical management Cardiology following (3) Hypertension: Qualifiers: Hypertension type: unspecified Qualified Code(s): I10 - Essential (primary) hypertension Code(s): I10 - Essential (primary) hypertension Status: Chronic Assessment and Plan: reasonably control at this time follow trend of hemodynamics (4) Anemia: Code(s): D64.9 - Anemia, unspecified Status: Acute Assessment and Plan: likely related to ESRD Epogen with HD follow trend of H/H (5) Diabetes: Code(s): E11.9 - Type 2 diabetes mellitus without complications Status: Chronic Assessment and Plan: follow accuchecks glycemic control Will continue to follow. Subjective Date/time seen: 12/22/20 12:32 Tolerating dialysis at the time of my visit (seen on HD at 12:20PM); no apparent distress voiced at this time; no events/issues overnight or earlier this AM; no complaints of chest pain or shortness of breath. Exam Narrative: Exam Narrative: General: WD/WN female in NAD Heart: normal S1 and S2; no rub Lungs: clear to auscultation Abdomen: soft, nontender, nondistended, positive bowel sounds Extremities: no cyanosis or clubbing; no edema Skin: warm and intact Objective Data Vital Signs Vital Signs: Vital Signs Temp Pulse Resp BP Pulse Ox 12/22/20 12:15 73 146/65 H 12/22/20 12:00 76 140/70 12/22/20 11:45 72 142/62 H 12/22/20 11:30 73 135/66 12/22/20 11:15 72 143/61 H 12/22/20 11:00 73 138/67 12/22/20 10:45 72 127/64 12/22/20 10:30 70 132/57 L 12/22/20 10:15 71 126/55 L 12/22/20 10:00 75 116/51 L 12/22/20 09:45 73 126/59 L 12/22/20 09:25 69 110/74 12/22/20 09:10 36.7 C 72 16 137/69 12/22/20 08:52 73 12/22/20 08:00 36.4 C 70 16 137/60 98 12/22/20 06:00 69 12/22/20 04:00 37.0 C 69 12 125/60 100 12/22/20 02:00 69 12/22/20 00:00 37.1 C 71 12 120/50 L 100 12/21/20 22:00 76 12/21/20 20:48 77 12/21/20 20:00 37.0 C 76 12 140/51 L 100 12/21/20 18:00 80 12/21/20 16:00 36.8 C 74 12 146/68 H 98 12/21/20 13:58 77 Intake/Output Intake/Output: Intake & Output 12/19/20 12/20/20 12/21/20 12/22/20 23:59 23:59 23:59 23:59 Intake Total 1080 930 730 Output Total 3500 670 200 Balance -2420 260 530 Meds/Results Medications: Active Medications Generic Name Dose Route Start Last Admin Trade Name Josy PRN Reason Stop Dose Admin Acetaminophen 650 mg 12/20/20 13:59 Acetaminophen 325 Mg Tablet PO Q4H PRN Mild Pain (1-3) Or Fever Amlodipine Besylate 5 mg 12/21/20 09:00 12/22/20 08:53 Amlodipine Besylate 5 Mg Tablet PO 5 mg DAILY JOHNSON Administration Aspirin 81 mg 12/20/20 14:00 12/22/20 08:51 Aspirin 81 Mg Enteric Tablet PO 81 mg DAILY JOHNSON Administration Atorvastatin Calcium 80 mg 12/20/20 21:00 12/21/20 20:48 Atorvastatin 40 Mg Tablet PO 80 mg HS JOHNSON Administration Carvedilol 6.25 mg 12/20/20 21:00 12/22/20 08:52 Carvedilol 6.25 Mg Tablet PO 6.25 mg Q12HR JOHNSON Administration Clopidogrel Bisulfate 75 mg 12/20/20 14:00 12/22/20 08:51 Clopidogrel Bisulfate 75 Mg Tablet PO 75 mg DAILY JOHNSON Administration Dextrose 12.5 gm 12/20/20 02:14 Dextrose 50% 25 Gm/50 Ml Syringe IV PUSH PRN PRN Hypoglycemia Protocol Fludrocorti
--- NOTE | 2020-12-22 13:55 | PM.DS ---
DS: Admitting Diagnosis Admitting Diagnosis Admitting Diagnosis: Chest pain DS: Discharge Diagnosis Discharge Diagnosis (1) Nausea and vomiting: Qualifiers: Vomiting type: unspecified Vomiting Intractability: non-intractable Qualified Code(s): R11.2 - Nausea with vomiting, unspecified Code(s): R11.2 - Nausea with vomiting, unspecified Status: Acute Assessment and Plan: Patient developed transient n/v during her admission. She has not had a BM x 1 week. She does have gastroparesis and is on chronic Reglan. Obstructive series showing moderate volume of stool but normal bowel gas patern. Added Mirlax. She refused the Dulcolax suppository. Symptoms resolved on their own. (2) Chest pain: Qualifiers: Chest pain type: unspecified Qualified Code(s): R07.9 - Chest pain, unspecified Code(s): R07.9 - Chest pain, unspecified Status: Acute Assessment and Plan: Patient with chest pain at rest that was positional. She also states the pain is pleuritic. Pain also associated with radiculopathy symptoms with numbness and tingling in her left hand and foot. Troponin elevated but flat. LE doppler negative for DVT. EKG does not show any significant change when compared to prior. Chest x-ray showing only chronic findings. Cardiology evaluated the patient and felt more likely musculoskeletal. Appreciate their input. (3) Elevated troponin: Code(s): R77.8 - Other specified abnormalities of plasma proteins Status: Acute Assessment and Plan: Troponin are elevated but flat. Current levels are even lower than they were earlier this month. Echo showing EF 30-35% with abnormal diastolic dysfunction. She is known to have low EF. [place] the elevated troponin were related to her end-stage renal disease. (4) CAD (coronary artery disease): Code(s): I25.10 - Atherosclerotic heart disease of [place] coronary artery without angina pectoris Status: Acute Assessment and Plan: Patient had a RCA stent x2 placed in August. Noted to have a depressed EF at that time. EF 30-35% now by Echo here. We continued her Plavix, aspirin, Lipitor and Coreg. (5) Severe hyperglycemia due to diabetes mellitus: Code(s): E11.65 - Type 2 diabetes mellitus with hyperglycemia Status: Acute Assessment and Plan: A1c 9.2. Glucose on presentation was 542. She was treated with insulin. Anion gap was 15 but patient denied any nausea or vomiting at that time. AG now 8 but developed the N/V as mentioned above. Monitored with sliding scale protocol. Glucose became better controlled with increasing her home regiment and starting a diabetic diet. (6) Acute hyperkalemia: Code(s): E87.5 - Hyperkalemia Status: Acute Assessment and Plan: Potassium mildly elevated 5.4 on admission. Most likely related to her end-stage renal disease and need for dialysis. Potassium corrected with dialysis. Suspect the possible VTach related to the hyperkalemia. No recurrence by tele. (7) End stage renal disease on dialysis: Code(s): N18.6 - End stage renal disease; Z99.2 - Dependence on renal dialysis Status: Acute Assessment and Plan: Patient received dialysis here without issue. Nephrology followed and appreciate their input (8) Numbness and tingling in left hand: Code(s): R20.0 - Anesthesia of skin; R20.2 - Paresthesia of skin Status: Acute Assessment and Plan: Patient has some weakness in the left upper and lower extremity probably related to her old stroke. Symptoms resolving. (9) Tobacco dependence: Code(s): F17.200 - Nicotine dependence, unspecified, uncomplicated Status: Chronic Assessment and Plan: Patient was educated about the benefits of smoking cessation. (10) Hypertension: Qualifiers: Hypertension type: unspecified Qualified Code(s): I
--- NOTE | 2020-12-22 14:18 | PC.NURSE ---
Patient returned to floor from dialysis at 1400.
[2020-12-22 14:54] LABS: Glucose Point of Care 90 mg/dl (65-105)
[2020-12-22 20:11] LABS: Hepatitis B Surface Anti Res Positive
[2020-12-24 17:35] LABS: Heparin Induced Platelet Antib Negative (Negative)
[2020-12-25 17:06] LABS: Platelet Antibody, Direct IgG NEGATIVE (NEGATIVE)
[2020-12-26 07:17] LABS: UFH SRA Result Interpretation Negative (Negative)
--- NOTE | 2020-12-26 12:38 | PC.NURSE ---
Hep B surface antibody is positive. Dr. Alvarenga aware. Results faxed to Dr. Ochoa.
[2020-12-28 19:37] LABS: Platelet Ab,Indirect (IgA) NEGATIVE (NEGATIVE); Platelet Ab,Indirect (IgG) POSITIVE (NEGATIVE); Platelet Ab,Indirect (IgM) NEGATIVE (NEGATIVE)
== END 2020-12-22 15:38 | disposition home or self-care (01) ==
LOC: ANHED 02:27 → ANHIMU 12-21 09:43
PROVIDERS: Internal Medicine Nephrology; Admitting Provider Internal Medicine; Emergency Provider Emergency Medicine; PCP Internal Medicine; Visit Provider Internal Medicine
DX: R11.2 Nausea with vomiting, unspecified (principal); R07.9 Chest pain, unspecified; R77.8 Other specified abnormalities of plasma proteins; I13.2 Hypertensive heart and chronic kidney disease with heart failure and with stage 5 chronic kidney disease, or end stage renal disease; I50.20 Unspecified systolic (congestive) heart failure; E11.22 Type 2 diabetes mellitus with diabetic chronic kidney disease; D63.1 Anemia in chronic kidney disease; N18.6 End stage renal disease; Z99.2 Dependence on renal dialysis; I25.10 Atherosclerotic heart disease of native coronary artery without angina pectoris; E11.65 Type 2 diabetes mellitus with hyperglycemia; E87.5 Hyperkalemia; R20.0 Anesthesia of skin; R20.2 Paresthesia of skin; R53.1 Weakness; E11.43 Type 2 diabetes mellitus with diabetic autonomic (poly)neuropathy; K31.84 Gastroparesis; E78.5 Hyperlipidemia, unspecified; N25.0 Renal osteodystrophy; F17.210 Nicotine dependence, cigarettes, uncomplicated; Z79.82 Long term (current) use of aspirin; Z79.4 Long term (current) use of insulin; Z79.02 Long term (current) use of antithrombotics/antiplatelets; Z86.73 Personal history of transient ischemic attack (TIA), and cerebral infarction without residual deficits; G93.5 Compression of brain; Z95.5 Presence of coronary angioplasty implant and graft
CPT/HCPCS: 36415; 71046; 74019; 80048; 80053; 80069; 82607; 82746; 82948; 83036; 83690; 83735; 84100; 84484; 85025; 85027; 85610; 85730; 86022; 86023; 86705; 86706; 87340; 93005; 93306; 93970; 96372; 96374; 99285; A9270; G0257; G0378; J1644; J1815

== ENCOUNTER 2021-01-25 18:44 | Observation (INO) | payer OTHER, MEDICARE, MEDICAID, SELFPAY ==
--- NOTE | ~2021-01-25 | NM_ITS ---
EXAMINATION: NM pulmonary perfusion EXAM DATE: 01/26/2021 13:50 INDICATION: Chest pain. TECHNIQUE: A perfusion lung scan was performed. The patient was injected with 5.0 mCi technetium 99m MAA and imaged. Modified PIOPED 2 criteria used for interpretation of perfusion without ventilation study (recent chest x-ray instead for comparison). Correlation is made to chest x-ray from yesterday. FINDINGS: Relatively homogeneous lung perfusion bilaterally without segmental defects. No lung opacities on yes terday's chest x-ray. IMPRESSION: Normal perfusion scan. Reviewed, dictated and finalized at location B. IMPRESSION: Normal perfusion scan.
--- NOTE | ~2021-01-25 | XR_ITS ---
EXAMINATION: XR abdomen/kub 1V INDICATION: Vomiting TECHNIQUE: Supine views of the abdomen were obtained on 2 radiographs. COMPARISON: 12/21/2020 FINDINGS: A moderate volume of colonic stool is present. There are no dilated loops of bowel. Extensi ve abdominal and pelvic calcified atherosclerosis is noted. The visualized lung bases are clear. IMPRESSION: 1. No radiographic correlate for the patient's symptoms. Reviewed, dictated and finalized at location A.
--- NOTE | ~2021-01-25 | XR_ITS ---
EXAMINATION: XR chest 2V DATE: 01/25/2021 19:23 INDICATION: Left-sided chest pain TECHNIQUE: PA and lateral views of the chest are obtained. COMPARISON: 12/20/2020 FINDINGS: The lungs are free of acute opacities. There is no pleural effusion or pneumothorax. Cardio megaly is noted. There is mild thoracic spondylosis. IMPRESSION: 1. Stable cardiomegaly. Reviewed, dictated and finalized at location A. IMPRESSION: 1. Stable cardiomegaly.
--- NOTE | 2021-01-25 18:47 | ECG_ITS ---
Measurements Intervals [place] Rate: 94 P: 61 MA: 179 QRS: 23 QRSD: 106 T: 8 QT: 367 QTc: 459 Interpretive Statements SINUS RHYTHM LEFT ATRIAL ENLARGEMENT BORDERLINE R WAVE PROGRESSION, ANTERIOR LEADS BORDERLINE ST-T WAVE ABNORMALITY- INF/LAT LEADS BORDERLINE ECG Electronically Signed On 01-26-2021 6:46:04 CDT by Misael Ahmadi D.O.
[2021-01-25 18:48] VITALS: BP 168/76; PULSE 97; RESP 17; TEMP 36.4; O2SAT 96
[2021-01-25 19:19] LABS: Basophils Absolute Auto 0.1 K/mm3 (0.0-0.1); Basophils Percent Auto 0.6 % (0.2-1.2); Eosinophils Absolute Auto 0.1 K/mm3 (0-0.3); Eosinophils Percent Auto 1.4 % (0-4.4); Hematocrit 40.7 % (37.0-47.0); Hemoglobin 12.8 g/dL (12.0-15.0); Immature Granulocyte Absolute 0.02 K/mm3 (0.00-0.031); Immature Granulocyte Percent A 0.2 % (0-0.5); Lymphocytes Absolute Auto 1.35 K/mm3 (0.9-3.2); Lymphocytes Percent Auto 15.8 % (18.3-44.2); Mean Corpuscular HGB Conc 31.4 g/dl (32-36); Mean Corpuscular Hemoglobin 32.3 pg (26-34); Mean Corpuscular Volume 102.8 fl (80-100); Mean Platelet Volume 10.1 fl (7.4-10.4); Monocytes Absolute Auto 0.6 K/mm3 (0.1-0.6); Monocytes Percent Auto 7.4 % (2.6-8.5); Neutrophils Absolute Auto 6.4 K/mm3 (1.3-6.7); Neutrophils Percent Auto 74.6 % (45.5-73.1); Platelet Count Result 226 k/mm3 (150-375); Red Blood Count 3.96 M/mm3 (4.2-5.4); Red Cell Distribution Width 13.5 % (11.5-14.5); White Blood Count 8.5 K/mm3 (4.5-10.0)
[2021-01-25 19:34] LABS: Prothrombin Time 12.8 Seconds (11.1-14.7)
[2021-01-25 19:35] LABS: Partial Thromboplastin Time 27.3 SECONDS (22.3-36.8)
[2021-01-25 19:39] LABS: Anion Gap 14 mmol/L (8-16); Blood Urea Nitrogen 38 mg/dL (7-17); Calcium 9.7 mg/dL (8.4-10.2); Carbon Dioxide 32 mmol/L (22-30); Chloride 92 mmol/L (98-107); Estimated CRCL calculation 13 ml/min; Estimated Glomerular Filt Rate 9; Glucose 369 mg/dL (65-110); Potassium 5.5 mmol/L (3.4-5.0); Sodium 138 mmol/L (137-145)
[2021-01-25 19:54] LABS: Troponin I 0.063 ng/mL (0.000-0.034)
--- NOTE | 2021-01-25 20:23 | ED.CHESTPAIN ---
HPI - Chest Pain General Chief Complaint: Chest Pain Stated Complaint: CP x 1 hour Time Seen by Provider: 01/25/21 20:04 History of Present Illness HPI narrative: Pleuritic chest pain for about the past hour. Associated with nausea, vomiting, SOB. Recent hospitalization for the same symptoms. At that time she had elevated, but flat troponin. Pain thought due to gastroparesis. Related Data Home Medications Medication Instructions Recorded Confirmed atorvastatin 80 mg PO HS 06/05/19 01/26/21 clopidogrel [Plavix] 75 mg PO DAILY 12/01/20 01/26/21 lisinopril 20 mg PO DAILY 12/01/20 01/26/21 amlodipine 5 mg PO DAILY 12/20/20 01/26/21 aspirin 81 mg PO DAILY 12/20/20 01/26/21 carvedilol 6.25 mg PO BID 12/20/20 01/26/21 furosemide 80 mg PO DAILY 12/20/20 01/26/21 metoclopramide HCl 5 mg PO QID 12/20/20 01/26/21 Basaglar KwikPen U-100 Insulin 13 unit SUBCUT HS 01/26/21 01/26/21 Allergies Allergy/AdvReac Type Severity Reaction Status Date / Time No Known Drug Allergies Allergy Unknown Verified 12/20/20 01:12 Review of Systems Review of Systems: All systems reviewed & are unremarkable except as noted in HPI and below Constitutional: Constitutional: Denies fever(s) Cardiovascular: Cardiovascular: Reports chest pain Respiratory: Respiratory: Reports dyspnea Gastrointestinal: Gastrointestinal: Reports abdominal pain, Reports nausea and Reports vomiting Genitourinary: Genitourinary: Reports no additional female genitourinary complaints Neurologic: Reports system reviewed and no additional complaints, except as documented [facility] Past Medical History Medical History Anasarca CAD (coronary artery disease) RCA stent placed in August 2020 Chiari I malformation Chronic osteomyelitis Status post toe amputations CVA (cerebral vascular accident) Small old lacunar infarct at the head of the right caudate nucleus. Diabetes mellitus Erythropoietin deficiency anemia Esophagitis determined by endoscopy EGD December ESRD (end stage renal disease) on dialysis On hemodialysis since June 2019 Gastroparesis due to DM HTN (hypertension) Hyperlipidemia Papilledema Renal osteodystrophy Surgical History Surgical History Amputation of toe Two on the left AV fistula Left forearm H/O tubal ligation History of section, classical X2 History of tonsillectomy and adenoidectomy Hx of myringotomy S/P dialysis catheter insertion Right internal jugular June 2019 status post removal September 2019 S/P lateral meniscal repair S/P PICC central line placement Now removed S/P rotator cuff repair Family History Family History Other Adopted Social History Social History Social History: She has 2 children and she lives with her of 28 years. She is on disability. Patient stated that she is down to 1/4pack cigarettes a day. She has smoked up to a pack of cigarettes per day since she was 16 years old. She denies any heavy alcohol use or illicit substance use. Primary care physician: Dr. Christiano Ochoa Seed Pelleter: Dr. Forbes Code status: Full code Healthcare power of traffic law attorney: Smoking packs per day: 0.5 Smoking cigarettes per day: 10.0 Years smoked: 25 Smoking pack-years: 12.50 Smoking status: Current every day smoker Second hand tobacco smoke exposure: Yes Additional smoking assessment comments: 2 packs per week Alcohol intake: never Substance use: never Substance use type: does not use Gender identity (if verbalized by the patient): Female Spiritual care concerns: No Agree to blood products: Yes Exam Const: General: no acute distress, alert and ill appearing Orientation/consciousness: patient oriented x3 HENMT: Head: normal to ins
[2021-01-25 20:31] VITALS: BP 151/68; PULSE 86; RESP 18; O2SAT 97
[2021-01-25 20:40] LABS: Alanine Aminotransferase 30 U/L (4-35); Albumin Level 4.5 g/dL (3.5-5.1); Alkaline Phosphatase 159 U/L (38-126); Aspartate Amino Transferase 31 U/L (14-36); Bilirubin,Total 0.6 mg/dL (0.2-1.3); Lipase 253 U/L (23-300)
[2021-01-25 20:49] LABS: NT Pro B Type Natriuretic Pept > 35000 pg/mL (5-100)
[2021-01-25] MEDS: METOCLOPRAMIDE HCL INJ 10 MG/2 ML VIAL IV PUSH (21:04)
[2021-01-25] MEDS: fentaNYL CITRATE INJ (*CRX) 100 MCG/2 ML VIAL 50 MCG IV PUSH (21:04)
[2021-01-25] MEDS: PANTOPRAZOLE SODIUM IV 40 MG VIAL IV PUSH (21:05)
[2021-01-25 22:47] VITALS: BP 138/60; PULSE 81; RESP 19; O2SAT 97
[2021-01-25 23:04] LABS: Troponin I 0.066 ng/mL (0.000-0.034)
[2021-01-26] VITALS (29 sets, daily range): BP systolic 112–165; BP diastolic 49–76; PULSE 70–81; RESP 12–20; TEMP 36–37; O2SAT 94–99; BMI 25.9
[2021-01-26 01:44] LABS: Troponin I 0.075 ng/mL (0.000-0.034)
--- NOTE | 2021-01-26 01:51 | ADMGEN ---
This patient, Pamela Bhat, was admitted to IMU Room 212-01 at 0145. Patient/family oriented to hospital policies and general routines including ID bracelet, bed and alarms, visiting hours, pain management, procedures, bathroom and other care routines, personal items, smoking policy, room service/diet, and visiting hours. Information on how to activate the Rapid Response Team has been discussed. Patient/Family are encouraged to report perceived risks to care and to ask questions if they do not understand what they are told or what they should do.
[2021-01-26 08:59] LABS: Glucose Point of Care 231 mg/dl (65-105)
--- NOTE | 2021-01-26 11:36 | PM.IMHP ---
H&P: HPI History of Present Illness Date/Time: 01/26/21 11:36 Chief Complaint: chest pain Narrative: the patient is a 45-year-old female with end-stage renal disease on hemodialysis Friday, coronary artery disease, diabetes mellitus, gastroparesis comes in with left-sided chest pain after she vomited last night. She says his feet on while on day yesterday and went out with her friend. In the evening as she felt nauseous and vomited and since then she started having this chest pain on the left side of her chest. The chest pain has eased up now but it is still present when she takes deep breath. The chest pain is sharp in quality nonradiating. Skip vomited which he say is dark colored vomited but has not vomited since then. She denies any other blood in her vomitus or in her stool. She reports history of gastroparesis and uses Reglan for that. On evaluation in the ER she is noted to have elevated troponin which is chronic serial troponins have been flat nonstress tip of acute coronary syndrome. EKG was unremarkable. She did have evaluation recently by director of field sales and her recent admission echocardiogram was done at the time which showed improved ejection fraction from 20-25% to 30-35% on last echocardiogram. she declined LifeVest. Review of Systems Review of Systems: - CONSTITUTIONAL: Denies weight loss, fever and chills. - HEENT: Denies changes in vision and hearing - RESPIRATORY: Denies SOB and cough. - CV: Denies palpitations and Reports CP. - GI: Denies abdominal pain, nausea, reports vomiting and denies diarrhea. - : Denies dysuria and urinary frequency. - MSK: Denies myalgia and joint pain. - SKIN: Denies rash and pruritus. - NEUROLOGICAL: Denies headache and syncope. - PSYCHIATRIC: Denies recent changes in mood. Denies anxiety and depression. All systems reviewed & are unremarkable except as noted in HPI and below PMFSH Past Medical History Medical History Anasarca CAD (coronary artery disease) RCA stent placed in August 2020 Chiari I malformation Chronic osteomyelitis Status post toe amputations CVA (cerebral vascular accident) Small old lacunar infarct at the head of the right caudate nucleus. Diabetes mellitus Erythropoietin deficiency anemia Esophagitis determined by endoscopy EGD December ESRD (end stage renal disease) on dialysis On hemodialysis since June 2019 Gastroparesis due to DM HTN (hypertension) Hyperlipidemia Papilledema Renal osteodystrophy Surgical History Surgical History Amputation of toe Two on the left AV fistula Left forearm H/O tubal ligation History of section, classical X2 History of tonsillectomy and adenoidectomy Hx of myringotomy S/P dialysis catheter insertion Right internal jugular June 2019 status post removal September 2019 S/P lateral meniscal repair S/P PICC central line placement Now removed S/P rotator cuff repair Family History Family History Other Adopted Social History Social History Social History: She has 2 children and she lives with her of 28 years. She is on disability. Patient stated that she is down to 1/4pack cigarettes a day. She has smoked up to a pack of cigarettes per day since she was 16 years old. She denies any heavy alcohol use or illicit substance use. Primary care physician: Dr. Christiano Ochoa Customer Solutions Specialist: Dr. Forbes Code status: Full code Healthcare power of debt counselor: Smoking packs per day: 0.5 Smoking cigarettes per day: 10.0 Years smoked: 25 Smoking pack-years: 12.50 Smoking status: Current every day smoker Second hand tobacco smoke exposure: Yes Additional smoking assessment comments: 2 packs per week Alcohol i
--- NOTE | 2021-01-26 12:25 | PM.CNNEP ---
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 Presents with chest pain. Central in nature, sharp, lasted NR, going from the left breast area to the shoulder area and arm. Some numbness in that area. It was severe. Associated nausea and vomiting. produced some dark-colored emesis. Some associated shortness of breath. Has had fluid retention issues and has some bilateral lower extremity swelling. He does report a bit of fluid removed at dialysis. His admitted for further management. Chest x-rays shows cardiomegaly. No pulmonary vascular congestion. EKG nonspecific ST-T changes in inferolateral leads. Review of Systems Review of Systems: Patient is irregular with the dialysis. He does have increased fluid weight gains in between dialysis treatment. Mostly tolerance of about 4-4.5 L of fluid removal. She has a functioning AV fistula. [facility] Past Medical History Medical History Anasarca CAD (coronary artery disease) RCA stent placed in August 2020 Chiari I malformation Chronic osteomyelitis Status post toe amputations CVA (cerebral vascular accident) Small old lacunar infarct at the head of the right caudate nucleus. Diabetes mellitus Erythropoietin deficiency anemia Esophagitis determined by endoscopy EGD December ESRD (end stage renal disease) on dialysis On hemodialysis since June 2019 Gastroparesis due to DM HTN (hypertension) Hyperlipidemia Papilledema Renal osteodystrophy Surgical History Surgical History Amputation of toe Two on the left AV fistula Left forearm H/O tubal ligation History of section, classical X2 History of tonsillectomy and adenoidectomy Hx of myringotomy S/P dialysis catheter insertion Right internal jugular June 2019 status post removal September 2019 S/P lateral meniscal repair S/P PICC central line placement Now removed S/P rotator cuff repair Family History Family History Other Adopted Social History Social History Social History: She has 2 children and she lives with her of 28 years. She is on disability. Patient stated that she is down to 1/4pack cigarettes a day. She has smoked up to a pack of cigarettes per day since she was 16 years old. She denies any heavy alcohol use or illicit substance use. Primary care physician: Dr. Christiano Ochoa Decorating Machine Operator: Dr. Forbes Code status: Full code Healthcare power of commercial real estate attorney: Smoking packs per day: 0.5 Smoking cigarettes per day: 10.0 Years smoked: 25 Smoking pack-years: 12.50 Smoking status: Current every day smoker Second hand tobacco smoke exposure: Yes Additional smoking assessment comments: 2 packs per week Alcohol intake: never Substance use: never Substance use type: does not use Gender identity (if verbalized by the patient): Female Spiritual care concerns: No Agree to blood products: Yes Meds Home
[2021-01-26 20:27] LABS: Glucose Point of Care 181 mg/dl (65-105)
[2021-01-26] MEDS: carvediloL 6.25 MG TABLET PO (20:34)
[2021-01-26] MEDS: METOCLOPRAMIDE HCL 5 MG TABLET PO (20:35)
[2021-01-26] MEDS: INSULIN ASPART (*BKC) 100 UNITS/ML 7 UNITS SUB-Q (20:37)
[2021-01-26] MEDS: INSULIN GLARGINE (*BKC) 100 UNITS/ML 13 UNITS SUB-Q (20:38)
[2021-01-26] MEDS: ATORVASTATIN 40 MG TABLET 80 MG PO (21:29)
[2021-01-27] VITALS (10 sets, daily range): BP systolic 119–137; BP diastolic 53–66; PULSE 68–73; RESP 16–22; TEMP 35.7–36.3; O2SAT 98–100
[2021-01-27 05:44] LABS: Basophils Absolute Auto 0.1 K/mm3 (0.0-0.1); Basophils Percent Auto 0.8 % (0.2-1.2); Eosinophils Absolute Auto 0.2 K/mm3 (0-0.3); Eosinophils Percent Auto 2.9 % (0-4.4); Hemoglobin 12.5 g/dL (12.0-15.0); Immature Granulocyte Absolute 0.02 K/mm3 (0.00-0.031); Immature Granulocyte Percent A 0.2 % (0-0.5); Lymphocytes Absolute Auto 2.28 K/mm3 (0.9-3.2); Lymphocytes Percent Auto 27.5 % (18.3-44.2); Mean Corpuscular HGB Conc 32.1 g/dl (32-36); Mean Corpuscular Hemoglobin 31.9 pg (26-34); Mean Corpuscular Volume 99.5 fl (80-100); Mean Platelet Volume 9.7 fl (7.4-10.4); Monocytes Absolute Auto 0.6 K/mm3 (0.1-0.6); Monocytes Percent Auto 7.4 % (2.6-8.5); Neutrophils Absolute Auto 5.1 K/mm3 (1.3-6.7); Neutrophils Percent Auto 61.2 % (45.5-73.1); Platelet Count Result 216 k/mm3 (150-375); Red Blood Count 3.92 M/mm3 (4.2-5.4); Red Cell Distribution Width 13.2 % (11.5-14.5); White Blood Count 8.3 K/mm3 (4.5-10.0)
[2021-01-27 06:02] LABS: Anion Gap 10 mmol/L (8-16); Blood Urea Nitrogen 27 mg/dL (7-17); Calcium 9.5 mg/dL (8.4-10.2); Carbon Dioxide 29 mmol/L (22-30); Chloride 96 mmol/L (98-107); Estimated CRCL calculation 16 ml/min; Estimated Glomerular Filt Rate 14; Glucose 115 mg/dL (65-110); Potassium 4.4 mmol/L (3.4-5.0); Sodium 135 mmol/L (137-145)
[2021-01-27] MEDS: INSULIN ASPART (*BKC) 100 UNITS/ML 7 UNITS SUB-Q ×2 (08:44→12:40)
[2021-01-27] MEDS: amLODIPine BESYLATE 5 MG TABLET PO (08:47)
[2021-01-27] MEDS: lisinopriL 20 MG TABLET PO (08:47)
[2021-01-27] MEDS: CLOPIDOGREL BISULFATE 75 MG TABLET PO (08:47)
[2021-01-27] MEDS: carvediloL 6.25 MG TABLET PO (08:47)
[2021-01-27] MEDS: FUROSEMIDE 80 MG TABLET PO (08:48)
[2021-01-27] MEDS: METOCLOPRAMIDE HCL 5 MG TABLET PO (08:48)
[2021-01-27] MEDS: ASPIRIN 81 MG ENTERIC TABLET PO (08:48)
[2021-01-27 11:19] LABS: Glucose Point of Care 122 mg/dl (65-105)
--- NOTE | 2021-01-27 12:07 | PM.DS ---
DS: Admitting Diagnosis Admitting Diagnosis Chest pain DS: Discharge Diagnosis Discharge Diagnosis (1) Systolic heart failure: Code(s): I50.20 - Unspecified systolic (congestive) heart failure Status: Acute Assessment and Plan: Date of Admission 01/26/21 Date of Discharge 01/27/21 Ms. Bhat is a 45-year-old female with end-stage renal disease on hemodialysis M/W/F, coronary artery disease, diabetes mellitus, gastroparesis who presented to the ED for evaluation of chest pain after an episode of vomiting the evening prior to arrival. She was evaluated by her house fellow, Dr Forbes, and was dialyzed while she was here. Her chest pain resolved. Troponins were elevated but actually lower than they were during previous admissions. She was recently admitted for these same symptoms and evaluated by our loom blower team. ACS is not suspected. Her elevated troponins may be related to troponin leak from her end-stage renal failure. She had a coronary stent placed in August [address] Gómez Singh at [place] and has an upcoming appointment to see him and get an echocardiogram next week 02/07/21. Her symptoms are resolved and she is hemodyamically stable for discharge 01/27/21 with a plan to see her established loom blower next week. (2) CAD (coronary artery disease): Code(s): I25.10 - Atherosclerotic heart disease of [place] coronary artery without angina pectoris Status: Acute (3) End stage renal disease on dialysis: Code(s): N18.6 - End stage renal disease; Z99.2 - Dependence on renal dialysis Status: Acute (4) Chest pain: Qualifiers: Chest pain type: unspecified Qualified Code(s): R07.9 - Chest pain, unspecified Code(s): R07.9 - Chest pain, unspecified Status: Acute (5) Elevated troponin: Code(s): R77.8 - Other specified abnormalities of plasma proteins Status: Acute (6) Anemia: Code(s): D64.9 - Anemia, unspecified Status: Acute DS: Summary Hospital Course Hospital Course: See above Time Spent with Patient Time attestation: Total time spent providing and/or coordinating discharge services: 35 minutes Exam Narrative: General: Female resting sitting up on bedside cot in no acute distress. HEENT: Normocephalic, EOMI, oral mucosa moist. Cardiovascular: Rate and rhythm are regular. Respiratory: Lungs clear to auscultation bilaterally. Respirations even and non-labored. Abdomen: Soft, non-tender, non-distended, bowel sounds present. Extremities: Peripheral pulses intact. No edema or pain to palpation. Neuro: Awake and alert; answering all questions appropriately. No focal neurological deficits. Speech is clear. DS: Data Data Completed and Pending Labs on day of discharge: Last Vital Signs Temp 96.2 F L 01/27/21 12:08 Pulse 71 01/27/21 12:08 Resp 18 01/27/21 12:08 BP 137/57 L 01/27/21 12:08 Pulse Ox 100 01/27/21 12:08 ITS Impressions Chest X-Ray 01/25/21 19:48 IMPRESSION: 1. Stable cardiomegaly. Abdomen X-Ray 01/25/21 20:48 IMPRESSION: 1. No radiographic correlate for the patient's symptoms. Pulmonary Perfusion Imaging 01/26/21 13:56 IMPRESSION: Normal perfusion scan. Laboratory Tests 01/27/21 05:30 01/27/21 05:30 Discharge Plan Discharge Attending physician on discharge: Ashely Talley Consulting providers: Myron Estrada ; Bradley Landaverde ; Gregory Forbes ; Errol Chang ; Misael Ahmadi ; Elisa Reed ; Man Gusman Discharging Clinician: Elisa Reed Anticipated Discharge Date/Time: 01/27/21 11:53 Patient Disposition: Home, Self-Care Activity: as tolerated Diet: as tolerated and diabetic Discharge Instructions: Please call to schedule a hospital follow up appointment with your primary care provider in 1 to 2 weeks, or sooner if you are feeling worse. Please follow up with yo
--- NOTE | 2021-01-27 12:09 | PM.PNNEP ---
Progress Note: A&P Additional Plan 1. patient has end-stage renal disease. She had dialysis yesterday and is due on Friday. Volume status looks okay. 2. Patient had chest pain yesterday. It sounded pleuritic. nuclear scan showed normal perfusion. Probably just chest wall pain. 3. Patient has anemia. Hemoglobin is good she. She does not need Epogen. 4. The patient has renal osteodystrophy. Calcium level looks okay. Phosphorus is followed as an outpatient. 5. The patient has hypertension. Blood pressure is well controlled. She is on amlodipine and lisinopril for this. Subjective Date/time seen: 01/27/21 12:09 Interval history: Patient is feeling better today. Chest pain is all gone eager for discharge Review of Systems Cardiovascular: Cardiovascular: Reports no additional cardiovascular complaints Respiratory: Respiratory: Reports no additional respiratory complaints Gastrointestinal: Gastrointestinal: Reports no additional gastrointestinal complaints Genitourinary: Genitourinary: Reports no additional female genitourinary complaints Exam Narrative: WDWN in NAD skin no rash head ncat lungs clear cor reg no rub abd BS+ nontender and soft ext no edema. Objective Data Vital Signs Vital Signs: Vital Signs - 24 hr 01/26/21 14:00 01/26/21 15:35 01/26/21 15:45 Temperature 36.7 C Pulse Rate 77 73 75 Respiratory Rate 20 Blood Pressure 161/72 H 159/74 H Pulse Oximetry 01/26/21 16:00 01/26/21 16:15 01/26/21 16:45 Temperature Pulse Rate 72 77 78 Respiratory Rate Blood Pressure 163/72 H 152/69 H 147/70 H Pulse Oximetry 01/26/21 17:15 01/26/21 17:45 01/26/21 18:00 Temperature Pulse Rate 76 76 78 Respiratory Rate Blood Pressure 157/70 H 146/64 H Pulse Oximetry 01/26/21 18:45 01/26/21 19:00 01/26/21 19:15 Temperature Pulse Rate 75 76 77 Respiratory Rate Blood Pressure 143/54 H 153/76 H 141/66 H Pulse Oximetry 01/26/21 19:30 01/26/21 19:50 01/26/21 20:00 Temperature 36.7 C Pulse Rate 72 78 78 Respiratory Rate 20 Blood Pressure 135/64 143/76 H Pulse Oximetry 99 01/26/21 20:31 01/26/21 20:34 01/26/21 22:00 Temperature 36.1 C L Pulse Rate 79 79 74 Respiratory Rate 15 Blood Pressure 112/52 L Pulse Oximetry 99 01/26/21 23:45 01/27/21 00:00 01/27/21 02:00 Temperature 36.0 C L Pulse Rate 71 73 70 Respiratory Rate 14 Blood Pressure 124/50 L Pulse Oximetry 99 99 01/27/21 03:55 01/27/21 04:00 01/27/21 06:00 Temperature 36.3 C L Pulse Rate 68 69 68 Respiratory Rate 16 Blood Pressure 119/53 L Pulse Oximetry 98 98 01/27/21 08:00 01/27/21 08:47 01/27/21 08:52 Temperature 36.1 C L Pulse Rate 70 73 71 Respiratory Rate 22 H Blood Pressure 134/66 Pulse Oximetry 99 01/27/21 12:08 Temperature 35.7 C L Pulse Rate 71 Respiratory Rate 18 Blood Pressure 137/57 L Pulse Oximetry 100 Intake/Output Intake/Output: Intake & Output 01/24/21 01/25/21 01/26/21 01/27/21 23:59 23:59 23:59 23:59 Intake Total 1410 440 Output Total 4175 100 Balance -1895 340 Meds/Results Medications: Active Medications Generic Name Dose Route Start Last Admin Trade Name Petarq PRN Reason Stop Dose Admin Acetaminophen 650 mg 01/26/21 11:34 Acetaminophen 325 Mg Tablet PO Q4H PRN Mild Pain (1-3) Or Fever Amlodipine Besylate 5 mg 01/27/21 09:00 01/27/21 08:47 Amlodipine Besylate 5 Mg Tablet PO 5 mg DAILY JOHNSON Administration Aspirin 81 mg 01/27/21 09:00 01/27/21 08:48 Aspirin 81 Mg Enteric Tablet PO 81 mg DAILY JOHNSON Administration Atorvastatin Calcium 80 mg 01/26/21 21:00 01/26/21 21:29 Atorvastatin 40 Mg Tablet PO 80 mg HS JOHNSON Administration Carvedilol 6.25 mg 01/26/21 17:00 01/27/21 08:47 Carvedilol 6.25 Mg Tablet PO 6.25 mg BID JOHNSON Administration Clopidogrel Bisulfate 75 mg 01/27/21 09:00 01/27/21 08:47 Paula
[2021-01-27 12:43] LABS: Glucose Point of Care 195 mg/dl (65-105)
== END 2021-01-27 14:05 | disposition home or self-care (01) ==
LOC: ANHED 21:01 → ANHIMU 01-26 03:50
PROVIDERS: Emergency Medicine; Internal Medicine; Admitting Provider Internal Medicine; Emergency Provider Emergency Medicine; PCP Internal Medicine; Visit Provider Hospitalist
DX: R07.9 Chest pain, unspecified (principal); I13.2 Hypertensive heart and chronic kidney disease with heart failure and with stage 5 chronic kidney disease, or end stage renal disease; N18.6 End stage renal disease; D63.1 Anemia in chronic kidney disease; E10.42 Type 1 diabetes mellitus with diabetic polyneuropathy; E10.22 Type 1 diabetes mellitus with diabetic chronic kidney disease; F17.210 Nicotine dependence, cigarettes, uncomplicated; I50.21 Acute systolic (congestive) heart failure; I25.10 Atherosclerotic heart disease of native coronary artery without angina pectoris; R77.8 Other specified abnormalities of plasma proteins; N25.0 Renal osteodystrophy; K31.84 Gastroparesis; Z79.4 Long term (current) use of insulin; Z99.2 Dependence on renal dialysis; Z89.422 Acquired absence of other left toe(s)
CPT/HCPCS: 36415; 71046; 74018; 78580; 80048; 80076; 82948; 83690; 83880; 84484; 85025; 85610; 85730; 93005; 96374; 96375; 97165; 99285; A9270; A9540; C9113; G0257; G0378; J1815; J2765; J3010; J7030

== ENCOUNTER 2021-03-13 12:28 | Inpatient (IN) | payer OTHER, MEDICARE, MEDICAID, SELFPAY ==
--- NOTE | ~2021-03-13 | CT_ITS ---
EXAMINATION: CT abdomen pelvis wo con DATE: 03/13/2021 16:02 INDICATION: Right lower quadrant abdominal pain for one day TECHNIQUE: Computed tomography (CT) of the abdomen and pelvis was performed without intravenous contr ast. Automated exposure control and iterative reconstruction technique were employed. Exam dose: 373 .18 mGy-cm total exam DLP. COMPARISON: 01/17/2020 CT abdomen pelvis FINDINGS: There is mild discoid atelectasis and/or scarring at the base of the lingula and left lower lobe and middle lobe. Cardiomegaly. There is trace pericardial fluid. Small sliding hiatal hernia. Cholelithiasis. No gallbladder wall thickening is noted. There is some pericholecystic fat stranding; recommend clinical correlation for possible acute cholecystitis. No bile duct or pancreatic duct dilatation is detected. No hepatic, splenic, pancreatic or adrenal space-occupying mass lesion is evident. No urinary tract c alculus or hydroureteronephrosis is detected. Bilateral adrenal hypertrophy. There is severe calcification throughout the renal arteries. There is prominent calcification of the celiac and superior mesenteric and inferior mesenteric arteri es as well as the abdominal aorta, iliac and femoral arteries. No abdominal aortic aneurysm. Small fat-containing umbilical hernia. The uterus and adnexal areas are unremarkable except for prominent arterial calcifications. The urina ry bladder wall is moderately prominent; recommend clinical correlation to exclude cystitis.. No intraperitoneal or retroperitoneal or pelvic mass lesion or adenopathy or ascites is detected. Normal appendix. No bowel obstruction is noted. There are some nondilated fluid containing small iwona l segments with only a few air-fluid levels which may represent mild adynamic ileus. Some thickening of the wall of the colon is suggested. Enterocolitis should be considered. No intraperitoneal free air is detected. Included skeletal structures are unremarkable. No suspicious osteolytic or osteoblastic lesions are n oted. IMPRESSION: Cholelithiasis, mild pericholecystic fat stranding. Acute cholecystitis is not excluded. Normal appendix Small bowel fluid and air-fluid levels, mild thickening of the colon; consider enterocolitis, adynami c ileus No bowel obstruction or free air Moderate thickening of the wall urinary bladder; consider cystitis. Severe atherosclerotic calcifications Reviewed, dictated and finalized at [facility] Reviewed, dictated and finalized at [facility]. IMPRESSION: Cholelithiasis, mild pericholecystic fat stranding. Acute cholecys titis is not excluded. Normal appendix Small bowel fluid and air-fluid levels, mild thickening of the colon; consider enterocolitis, adynamic ileus No bowel obstruction or free air Moderate thickening of the wall urinary bladder; consider cystitis. Severe atherosclerotic calcifications
--- NOTE | ~2021-03-13 | XR_ITS ---
EXAMINATION: XR abdomen/kub 1V INDICATION: Postoperative ileus versus constipation, right-sided abdominal pain TECHNIQUE: Supine views of the abdomen were obtained on 2 radiographs. COMPARISON: 01/25/2021 FINDINGS: No dilated loops of bowel are evident. The abdomen is relatively gasless. Cholecystectomy c lips are noted in the right upper quadrant. There is mild atelectasis of the lung bases. Calcified at herosclerosis is noted. No free intraperitoneal gas is evident. IMPRESSION: 1. Nonspecific bowel gas pattern without evidence of obstruction. Reviewed, dictated and finalized at [facility].
--- NOTE | ~2021-03-13 | US_ITS ---
US abdomen limited INDICATION: Possible cholecystitis. PROCEDURE: Realtime right upper abdominal ultrasound. COMPARISON: No prior studies for comparison. FINDINGS: The pancreas is normal without focal mass or pancreatic ductal dilation. Liver echotexture is normal without focal mass or intrahepatic biliary dilatation. There is normal directional flow i n the portal vein. There is cholelithiasis. There are also gallbladder polyps. Common bile duct measures 9 mm. Positive sonographic Lawler's sign. IMPRESSION: 1: Cholelithiasis with biliary dilatation and positive sonographic Lawler's sign. Findings compatible with cholecystitis. Clinically correlate. 2: Gallbladder polyps. Reviewed, dictated and finalized at [facility]. IMPRESSION: 1: Cholelithiasis with biliary dilatation and positive sonographic Lawler's sig n. Findings compatible with cholecystitis. Clinically correlate. 2: Gallbladder polyps.
[2021-03-13 12:45] VITALS: BP 138/53; PULSE 92; RESP 16; TEMP 37.4; O2SAT 99
[2021-03-13 14:44] VITALS: BP 153/73; PULSE 90; RESP 17; O2SAT 100
--- NOTE | 2021-03-13 15:11 | PC.NURSE ---
Patient unable to give urine sample at this time, declines straight cath.
[2021-03-13 15:39] LABS: Basophils Absolute Auto 0.1 K/mm3 (0.0-0.1); Basophils Percent Auto 0.3 % (0.2-1.2); Eosinophils Percent Auto 0.1 % (0-4.4); Hemoglobin 13.6 g/dL (12.0-15.0); Immature Granulocyte Absolute 0.09 K/mm3 (0.00-0.031); Immature Granulocyte Percent A 0.5 % (0-0.5); Immature Platelet Fraction Pct 5.1 % (0.9-11.2); Lymphocytes Absolute Auto 0.86 K/mm3 (0.9-3.2); Lymphocytes Percent Auto 4.6 % (18.3-44.2); Mean Corpuscular HGB Conc 31.6 g/dl (32-36); Mean Corpuscular Hemoglobin 31.6 pg (26-34); Mean Corpuscular Volume 99.8 fl (80-100); Mean Platelet Volume 11.7 fl (7.4-10.4); Monocytes Absolute Auto 0.8 K/mm3 (0.1-0.6); Monocytes Percent Auto 4.2 % (2.6-8.5); Neutrophils Absolute Auto 16.8 K/mm3 (1.3-6.7); Neutrophils Percent Auto 90.3 % (45.5-73.1); Platelet Count Result 218 k/mm3 (150-375); Red Blood Count 4.31 M/mm3 (4.2-5.4); Red Cell Distribution Width 13.2 % (11.5-14.5); White Blood Count 18.6 K/mm3 (4.5-10.0)
[2021-03-13 15:56] LABS: Platelet Estimate Adequate (Adequate)
--- NOTE | 2021-03-13 16:19 | PC.NURSE ---
Pt very difficult stick. Several attempts to collect for CMP, Lip. Called Phlebotomy and spoke to Tosha to attempt collection
[2021-03-13] MEDS: fentaNYL CITRATE INJ (*CRX) 100 MCG/2 ML VIAL 50 MCG IV PUSH ×2 (17:00→20:02)
[2021-03-13 17:08] LABS: Alanine Aminotransferase 20 U/L (4-35); Albumin Level 4.5 g/dL (3.5-5.1); Alkaline Phosphatase 136 U/L (38-126); Anion Gap 17 mmol/L (8-16); Aspartate Amino Transferase 23 U/L (14-36); Blood Urea Nitrogen 32 mg/dL (7-17); Calcium 9.2 mg/dL (8.4-10.2); Carbon Dioxide 34 mmol/L (22-30); Chloride 88 mmol/L (98-107); Estimated CRCL calculation 10 ml/min; Estimated Glomerular Filt Rate 8; Glucose 227 mg/dL (65-110); Lipase 59 U/L (23-300); Potassium 4.1 mmol/L (3.4-5.0); Sodium 139 mmol/L (137-145)
--- NOTE | 2021-03-13 17:09 | ED.ABDPAIN ---
HPI - Abdominal Pain General Chief Complaint: Abdominal Pain Stated Complaint: vomiting/diarrhea/abd pain Time Seen by Provider: 03/13/21 14:53 Source: patient Mode of arrival: ambulatory Limitations: no limitations History of Present Illness HPI narrative: 45-year-old female History of diabetes with gastroparesis coronary disease and is on renal dialysis Here for abdominal pain Patient notes that yesterday she had nausea vomiting and diarrhea followed relatively quickly by abdominal pain which she identifies as being in the right lower quadrant and which has slowly worsened No blood in emesis or stools Her appetite has been poor, no fever She makes very little urine Related Data Home Medications Medication Instructions Recorded Confirmed atorvastatin 80 mg PO HS 06/05/19 01/26/21 clopidogrel [Plavix] 75 mg PO DAILY 12/01/20 01/26/21 lisinopril 20 mg PO DAILY 12/01/20 01/26/21 amlodipine 5 mg PO DAILY 12/20/20 01/26/21 aspirin 81 mg PO DAILY 12/20/20 01/26/21 carvedilol 6.25 mg PO BID 12/20/20 01/26/21 furosemide 80 mg PO DAILY 12/20/20 01/26/21 metoclopramide HCl 5 mg PO QID 12/20/20 01/26/21 Basaglar KwikPen U-100 Insulin 13 unit SUBCUT HS 01/26/21 01/26/21 Allergies Allergy/AdvReac Type Severity Reaction Status Date / Time No Known Drug Allergies Allergy Unknown Verified 12/20/20 01:12 Review of Systems Review of Systems: All systems reviewed & are unremarkable except as noted in HPI and below Constitutional: Constitutional: Reports no additional constitutional complaints, Denies chills, Reports fatigue, Denies fever(s), Denies headache(s) and Reports weakness Eyes: Eyes: Reports no additional eye complaints and Denies change in vision ENT: Denies headache(s) and Denies sore throat Cardiovascular: Cardiovascular: Denies chest pain and Denies dyspnea Respiratory: Respiratory: Denies cough and Denies dyspnea Gastrointestinal: Gastrointestinal: Reports abdominal pain, Reports diarrhea, Reports nausea and Reports vomiting Genitourinary: Genitourinary: Denies hematuria, Denies urinary frequency and Denies dysuria Musculoskeletal: Musculoskeletal: Denies deformity, Denies arthralgias, Denies joint swelling and Denies numbness Integumentary/Breasts: Skin/Breast: Denies rash and Denies wounds Neurologic: Denies headache(s), Denies focal weakness and Denies numbness Psychiatric: Psychiatric: Reports no additional psychiatric complaints Endocrine: Endocrine: Reports no additional endocrine complaints Hematologic/Lymphatic: Hematologic/Lymphatic: Reports no additional hematologic/lymphatic complaints Allergic/Immunologic: Allergic/Immunologic: Reports no additional allergic/immunologic complaints PMFSH Past Medical History Medical History Anasarca CAD (coronary artery disease) RCA stent placed in August 2020 Chiari I malformation Chronic osteomyelitis Status post toe amputations CVA (cerebral vascular accident) Small old lacunar infarct at the head of the right caudate nucleus. Diabetes mellitus Erythropoietin deficiency anemia Esophagitis determined by endoscopy EGD December ESRD (end stage renal disease) on dialysis On hemodialysis since June 2019 Gastroparesis due to DM HTN (hypertension) Hyperlipidemia Papilledema Renal osteodystrophy Surgical History Surgical History Amputation of toe Two on the left AV fistula Left forearm H/O tubal ligation History of section, classical X2 History of tonsillectomy and adenoidectomy Hx of myringotomy S/P dialysis catheter insertion Right internal jugular June 2019 status post removal September 2019 S/P lateral meniscal repair S/P PICC central line placement Now removed S/P rotator cuff repair Family History Family History Other Adopted Soc
[2021-03-13 17:29] VITALS: BP 145/64; PULSE 90; RESP 18; O2SAT 99
--- NOTE | 2021-03-13 18:38 | PC.NURSE ---
Patient's room not clean at this time, report called to Joyce WAYNE
[2021-03-13 18:42] VITALS: BP 133/51; PULSE 92; RESP 17; O2SAT 95
--- NOTE | 2021-03-13 19:50 | ADMGEN ---
This patient, Pamela Bhat, was admitted to Medical Room 347-01. Patient/family oriented to hospital policies and general routines including ID bracelet, bed and alarms, visiting hours, pain management, procedures, bathroom and other care routines, personal items, smoking policy, room service/diet, and visiting hours. Information on how to activate the Rapid Response Team has been discussed. Patient/Family are encouraged to report perceived risks to care and to ask questions if they do not understand what they are told or what they should do.
[2021-03-13 19:56] VITALS: BP 140/59; PULSE 90; RESP 18; TEMP 37.4; O2SAT 94
[2021-03-13] MEDS: LACTATED RINGERS 1,000 ML 125 ML IV CONT (20:00)
[2021-03-13 20:09] VITALS: BMI 25.7
[2021-03-13 20:52] LABS: Glucose Point of Care 205 mg/dl (65-105)
--- NOTE | 2021-03-13 23:30 | PM.IMHP ---
H&P: HPI History of Present Illness Date/Time: 03/13/21 23:30 this is a 45-year-old female patient a past medical history of end-stage renal disease on dialysis Friday. The patient came in today with complaints of nausea vomiting diarrhea that started yesterday. She also has some abdominal pain that was in the upper right quadrant. It gradually got worse. Her appetite has been poor she is not having any fever. No blood is noted in her emesis or stools. Her white count was noted to be 18.6. CT of the abdomen and pelvis was read as the following Small bowel fluid and air-fluid levels, mild thickening of the colon; consider enterocolitis, adynamic ileus No bowel obstruction or free air Moderate thickening of the wall urinary bladder; consider cystitis. Severe atherosclerotic calcifications The patient was started on IV fluids and Zosyn. Surgery and Nephrology have been consulted. I did stop her IV fluids since she is a dialysis patient. She urinates very little. She is diabetic and her blood sugar was 205. The patient is being admitted to inpatient services on the date of service of 03/13/2021 Chief Complaint: Nausea vomiting diarrhea Review of Systems Review of Systems: All systems reviewed & are unremarkable except as noted in HPI and below Constitutional: Constitutional: Reports as per HPI and Reports no additional constitutional complaints Eyes: Eyes: Reports as per HPI and Reports no additional eye complaints ENT: Reports system reviewed and no additional complaints, except as documented and Reports Normal hearing present Cardiovascular: Cardiovascular: Reports no additional cardiovascular complaints Respiratory: Respiratory: Reports no additional respiratory complaints and Reports no additional respiratory complaints Gastrointestinal: Gastrointestinal: Reports as per HPI and Reports no additional gastrointestinal complaints Musculoskeletal: Musculoskeletal: Reports no additional musculoskeletal complaints Integumentary/Breasts: Skin/Breast: Reports system reviewed and no additional complaints, except as docu and Reports as per HPI Neurologic: Reports system reviewed and no additional complaints, except as documented, Reports as per HPI and Reports Normal hearing present Psychiatric: Psychiatric: Reports no additional psychiatric complaints and Reports as per HPI Endocrine: Endocrine: Reports no additional endocrine complaints Hematologic/Lymphatic: Hematologic/Lymphatic: Reports no additional hematologic/lymphatic complaints Allergic/Immunologic: Allergic/Immunologic: Reports no additional allergic/immunologic complaints [facility] Past Medical History Medical History (Updated 03/13/21 @ 23:35 by Ondina Mccullough NP) Anasarca CAD (coronary artery disease) RCA stent placed in August 2020 Chiari I malformation Chronic osteomyelitis Status post toe amputations CVA (cerebral vascular accident) Small old lacunar infarct at the head of the right caudate nucleus. Diabetes mellitus Erythropoietin deficiency anemia Esophagitis determined by endoscopy EGD December 2019 ESRD (end stage renal disease) on dialysis On hemodialysis since June 2019 Gastroparesis due to DM HTN (hypertension) Hyperlipidemia Papilledema Renal osteodystrophy Surgical History Surgical History Amputation of toe Two on the left AV fistula Left forearm H/O tubal ligation History of section, classical X2 History of tonsillectomy and adenoidectomy Hx of myringotomy S/P dialysis catheter insertion Right internal jugular June 2019 status post removal September 2019 S/P lateral meniscal repair S/P PICC central line placement Now removed S/P rotator cuff repair Family History Family History Other Adopted Social History Social History Social History:
[2021-03-14] VITALS (20 sets, daily range): BP systolic 127–157; BP diastolic 50–71; PULSE 72–98; RESP 16–18; TEMP 36.8–37.3; O2SAT 93–97
[2021-03-14] MEDS: fentaNYL CITRATE INJ (*CRX) 100 MCG/2 ML VIAL 50 MCG IV PUSH ×5 (01:08→21:01)
[2021-03-14 01:20] LABS: Glucose Point of Care 172 mg/dl (65-105)
[2021-03-14 05:19] LABS: Add Urine Microscopic? YES; Appearance Urine Clear (Clear); Bilirubin Urine Negative (Negative); Blood Urine Negative (Negative); Color Urine Yellow (Yellow); Glucose Urine UA 3+ mg/dL (Negative); Ketones Urine Trace mg/dL (Negative); Leukocyte Esterase Ur Negative LEU/UL (Negative); Mucus Urine Rare /lpf; Nitrate Urine Negative (Negative); Protein Urine 3+ mg/dL (Negative); Specific Grav Ur 1.014 (1.001-1.035); Squamous Epithelial Cell Urine Many /hpf (Few); Urobilinogen Urine Negative mg/dL (<2.0); WBC Urine 0-3 /hpf
[2021-03-14 05:37] LABS: Glucose Point of Care 176 mg/dl (65-105)
[2021-03-14 05:47] LABS: Basophils Percent Auto 0.3 % (0.2-1.2); Eosinophils Absolute Auto 0.2 K/mm3 (0-0.3); Eosinophils Percent Auto 1.2 % (0-4.4); Hematocrit 36.1 % (37.0-47.0); Hemoglobin 11.3 g/dL (12.0-15.0); Immature Granulocyte Percent A 0.7 % (0-0.5); Lymphocytes Absolute Auto 1.73 K/mm3 (0.9-3.2); Lymphocytes Percent Auto 12.1 % (18.3-44.2); Mean Corpuscular HGB Conc 31.3 g/dl (32-36); Mean Corpuscular Volume 98.9 fl (80-100); Mean Platelet Volume 10.2 fl (7.4-10.4); Monocytes Absolute Auto 0.8 K/mm3 (0.1-0.6); Monocytes Percent Auto 5.5 % (2.6-8.5); Neutrophils Absolute Auto 11.4 K/mm3 (1.3-6.7); Neutrophils Percent Auto 80.2 % (45.5-73.1); Platelet Count Result 182 k/mm3 (150-375); Red Blood Count 3.65 M/mm3 (4.2-5.4); Red Cell Distribution Width 13.1 % (11.5-14.5); White Blood Count 14.3 K/mm3 (4.5-10.0)
[2021-03-14 05:58] LABS: Lactic Acid Reflex 1.2 mmol/L (0.7-2.1)
[2021-03-14 06:18] LABS: Alanine Aminotransferase 15 U/L (4-35); Albumin Level 3.9 g/dL (3.5-5.1); Alkaline Phosphatase 108 U/L (38-126); Anion Gap 13 mmol/L (8-16); Aspartate Amino Transferase 18 U/L (14-36); Blood Urea Nitrogen 39 mg/dL (7-17); Calcium 8.6 mg/dL (8.4-10.2); Carbon Dioxide 35 mmol/L (22-30); Chloride 89 mmol/L (98-107); Estimated CRCL calculation 9 ml/min; Estimated Glomerular Filt Rate 7; Glucose 168 mg/dL (65-110); Lipase 42 U/L (23-300); Phosphorus 7.1 mg/dL (2.5-4.5); Potassium 4.2 mmol/L (3.4-5.0); Sodium 137 mmol/L (137-145)
--- NOTE | 2021-03-14 11:31 | PM.IMPN ---
Progress Note: A&P Assessment and Plan (1) Acute cholecystitis: Code(s): K81.0 - Acute cholecystitis Status: Acute Assessment and Plan: Presented with right upper quadrant pain. CT abdomen/pelvis showed cholelithiasis with mild pericholecystic fat stranding, not able to exclude acute cholecystitis. Ultrasound showed biliary dilatation and positive sonographic Lawler sign, compatible with cholecystitis. LFTs and total bilirubin and normal Appreciate general surgery consultation NPO diet Continue IV Zosyn, renally dosed Analgesics and antiemetics available as needed Fluids on hold at this time to avoid volume overload given her end-stage renal disease. If she were to need to remain NPO for extended duration of time, will resume low-dose fluids. (2) End stage renal disease: Code(s): N18.6 - End stage renal disease Status: Chronic Assessment and Plan: On hemodialysis Friday. Nephrology has been consulted for management of dialysis Electrolytes stable. Creatinine increased to 6.3 today (3) Diabetes: Code(s): E11.9 - Type 2 diabetes mellitus without complications Status: Chronic Assessment and Plan: A1c was 9.2 in November. Blood sugars reviewed have been reasonably controlled. Continue with Accu-Cheks every 6 hours, sliding scale insulin, and hypoglycemic protocol (4) Systolic heart failure: Code(s): I50.20 - Unspecified systolic (congestive) heart failure Status: Acute Assessment and Plan: Last echo in November 2020 showed severely reduced at 30-35%. She appears clinically compensated at this time and is euvolemic Medications including carvedilol, Lasix, lisinopril on hold at this time while NPO. Resume when clinically appropriate. (5) Anemia: Code(s): D64.9 - Anemia, unspecified Status: Acute Assessment and Plan: Likely related to renal failure. Review of prior labs demonstrates hemoglobin to be at baseline. Monitor H&H daily (6) CAD (coronary artery disease): Code(s): I25.10 - Atherosclerotic heart disease of [place] coronary artery without angina pectoris Status: Acute Assessment and Plan: With recent cardiac stent in August 2020. Plavix on hold while awaiting General surgery recommendations. Resume per General surgery once clinically appropriate. (7) Hypertension: Qualifiers: Hypertension type: unspecified Qualified Code(s): I10 - Essential (primary) hypertension Code(s): I10 - Essential (primary) hypertension Status: Chronic Assessment and Plan: Blood pressure has been fairly well controlled. Last BP was 131/51. Oral antihypertensives currently on hold IV hydralazine p.r.n. systolic BP >170 (8) Tobacco dependence: Code(s): F17.200 - Nicotine dependence, unspecified, uncomplicated Status: Chronic Assessment and Plan: She has cut back on smoking and is now smoking 1/4 pack per day. Continue to encourage complete smoking cessation Subjective Date/time seen: 03/14/21 11:31 Interval history: Date of service: 03/14/2021 Pamela Bhat is a 45-year-old female with ESRD on hemodialysis MWF, CAD, CVA, diabetes mellitus, hypertension, hyperlipidemia, and several other comorbidities who is seen in follow-up for acute cholecystitis. She is endorsing right upper quadrant pain that she rates as a 7/10. Reports pain is intermittent and describes as a stabbing sensation. She denies nausea or vomiting. She has been having diarrhea for several days and had episode of diarrhea this morning age. She denies blood in her stool. Denies fever or chills. She denies shortness of breath, cough, or chest pain. She does still make urine and reports she has a small amount of urine output approximately 2 times per day. She did urinate this morning without any issues. Denies blood in her urine, dysuria, or oth
[2021-03-14 12:19] LABS: Glucose Point of Care 184 mg/dl (65-105)
[2021-03-14] MEDS: SODIUM CHLORIDE 0.9% IV 1,000 ML 100 ML IV CONT (15:00)
--- NOTE | 2021-03-14 15:21 | ECG_ITS ---
Measurements Intervals [place] Rate: 75 P: 72 IA: 173 QRS: 14 QRSD: 120 T: 5 QT: 422 QTc: 473 Interpretive Statements SINUS RHYTHM LEFT ATRIAL ENLARGEMENT INTRAVENTRICULAR CONDUCTION DELAY BORDERLINE R WAVE PROGRESSION, ANTERIOR LEADS CONSIDER INFERIOR INFARCT, AGE INDETERMINATE ABNORMAL ECG Electronically Signed On 03-14-2021 20:11:58 CDT by Misael Ahmadi D.O.
--- NOTE | 2021-03-14 15:22 | PM.CNGS ---
Assessment and Plan Assessment and plan (1) Acute cholecystitis: Code(s): K81.0 - Acute cholecystitis Status: Acute Assessment and Plan: CT scan and ultrasound reviewed and discussed with the patient in detail. CT scan suggests cholelithiasis with mild pericholecystic fat stranding. There was also evidence of some mild thickening of the colon with small bowel air-fluid levels. Ultrasound suggesting cholecystitis with cholelithiasis and gallbladder polyps. The patient is still having right-sided abdominal pain. It is somewhat atypical to have more of her abdominal pain in the RLQ rather than RUQ, although she is tender on exam along the right side of her abdomen. She also has leukocytosis that has come down with IV antibiotics. I have discussed the disease process with the patient and treatment options at this time. With her multiple co-morbidities and anti-platelet therapy, she is a higher risk surgical candidate. We discussed the option of proceeding with a laparoscopic cholecystectomy, possible open, possible IOC, that would be performed by Dr. Wen. Description of the procedure, all associated risks for her individually, benefits, expected outcomes, and expected recovery were discussed in detail. All questions were answered. She would like to proceed with surgery. I have discussed this with Dr. Wen. She will have hemodialysis today and Dr. Wen will work with the OR on scheduling her surgery possibly tomorrow. Continue with broad-spectrum IV antibiotics, analgesics, and antiemetics. No current IV fluids due to her ESRD. Since her nausea has resolved and she is not having surgery today, I will allow her to have clear liquids today and make her NPO after midnight. She does not have a recent EKG, so I will also order this for pre-operative testing. Thank you for allowing us to see the patient in consultation and we will continue to follow along with you. (2) CAD (coronary artery disease): Code(s): I25.10 - Atherosclerotic heart disease of [place] coronary artery without angina pectoris Status: Acute Assessment and Plan: S/p coronary artery stent placement in August [address] [facility] [address] Singh. Recently had a follow-up with him in January with repeat echo and all medications continued. 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 Last dose was Friday morning. (4) End stage renal disease on dialysis: Code(s): N18.6 - End stage renal disease; Z99.2 - Dependence on renal dialysis Status: Chronic Assessment and Plan: She has hemodialysis on Friday, Friday, and Friday. Nephrology consulted and planning dialysis today. (5) Systolic heart failure: Code(s): I50.20 - Unspecified systolic (congestive) heart failure Status: Acute Assessment and Plan: Last echocardiogram in our system is from November 2020 and showed EF 30-35%, mild LVH, mod LVE, diastolic dysfunction, mild MR/TR, trace pericardial effusion. She reportedly had a more recent echocardiogram through her Architecture Professor at [facility], no records currently available. (6) Diabetes: Code(s): E11.9 - Type 2 diabetes mellitus without complications Status: Chronic (7) Gastroparesis due to DM: Code(s): E11.43 - Type 2 diabetes mellitus with diabetic autonomic (poly)neuropathy; K31.84 - Gastroparesis Status: Acute (8) Hypertension: Qualifiers: Hypertension type: unspecified Qualified Code(s): I10 - Essential (primary) hypertension Code(s): I10 - Essential (primary) hypertension Status: Chronic Additional Plan I have discussed the patient's case and plan of care with Dr. Wen. History of Present Illness Consult details Consult date: 03/14/21 Reason for consult: other (Possible acute cholecystitis) Requesti
[2021-03-14 16:11] LABS: Hepatitis B Surface Anti Res Positive; Hepatitis B Surface Antigen Negative (Negative)
--- NOTE | 2021-03-14 18:08 | PM.PNNEP ---
Progress Note: A&P Assessment and Plan (1) End stage renal disease: Code(s): N18.6 - End stage renal disease Status: Chronic Assessment and Plan: HD today and continue dialysis 3x/week while hospitalized. follow electrolytes, volume status, and clearance FULL CONSULT to follow Subjective Date/time seen: 03/14/21 18:00 Tolerating dialysis treatment at the time of my visit (seen on HD at 5:40pm); no apparent distress; still with right upper quadrant pain but it is tolerable; no other acute complaints voiced. Exam Narrative: General: WD/WN female in NAD Heart: normal S1 and S2; no rub Lungs: clear to auscultation Abdomen: + tenderness to palpation in RUQ Extremities: no cyanosis or clubbing; no edema Skin: warm and dry Objective Data Vital Signs Vital Signs: Vital Signs Temp Pulse Resp BP Pulse Ox 03/14/21 18:00 73 134/61 03/14/21 17:45 72 132/59 L 03/14/21 17:30 72 131/54 L 03/14/21 17:15 73 127/58 L 03/14/21 17:00 74 145/68 H 03/14/21 16:45 75 141/67 H 03/14/21 16:30 74 144/69 H 03/14/21 16:15 74 136/63 03/14/21 15:57 76 149/65 H 03/14/21 15:45 36.8 C 76 18 142/66 H 03/14/21 14:00 37.3 C 77 18 135/52 L 93 03/14/21 04:50 36.9 C 78 16 131/51 L 93 03/13/21 19:56 37.4 C 90 18 140/59 L 94 03/13/21 18:42 92 17 133/51 L 95 Intake/Output Intake/Output: Intake & Output 03/11/21 03/12/21 03/13/21 03/14/21 23:59 23:59 23:59 23:59 Intake Total 520 170 Output Total 70 Balance 520 100 Meds/Results Medications: Active Medications Generic Name Dose Route Start Last Admin Trade Name Freq PRN Reason Stop Dose Admin Chlorhexidine Gluconate 1 applic 03/15/21 06:30 Chlorhexidine Gluconate 4% Sophia 120 Ml Btl TOPICAL 03/15/21 06:31 ONCE ONE Dextrose 12.5 gm 03/13/21 23:40 Dextrose 50% 25 Gm/50 Ml Syringe IV PUSH PRN PRN Hypoglycemia Protocol Fentanyl Citrate 50 mcg 03/13/21 17:27 03/14/21 12:36 Fentanyl Citrate Inj (*Crx) 100 Mcg/2 Ml Vial IV PUSH 50 mcg Q2H PRN Administration Pain Rated 7-10 Glucagon 1 mg 03/13/21 23:40 Glucagon For Inj 1 Mg Vial IM PRN PRN Hypoglycemia Protocol Glucose 15 gm 03/13/21 23:40 Glucose Oral Gel 15 Gm Of Glucse In 37.5 Gm Tube PO PRN PRN Hypoglycemia Protocol Hydralazine HCl 10 mg 03/14/21 11:46 Hydralazine Hcl 20 Mg/Ml Vial IV PUSH Q8H PRN Syst BP >170, Diastolic BP >95 Piperacillin Sod/Tazobactam Sod 2.25 gm in 50 mls @ 100 mls/hr 03/14/21 09:00 03/14/21 09:50 Zosyn 2.25 Gm/D5w 50 Ml IVPB Infused Q12HR [facility] Infusion Piperacillin Sod/Tazobactam 50 mls @ 50 mls/hr 03/14/21 16:00 Sod 0.75 gm/ Dextrose IVPB [id number] JOHNSON Dextrose 1,000 mls @ 100 mls/hr 03/13/21 23:40 Dextrose 5% 1,000 Ml IVPB PRN PRN Hypoglycemia Protocol Albumin Human 50 mls @ 999 mls/hr 03/14/21 12:51 Albutein IVPB 04/13/21 12:50 Q10M PRN HYPOTENSION Insulin Aspart 2 - 5 units 03/14/21 00:00 03/14/21 12:34 Insulin Aspart (*Bkc) 100 Units/Ml SUB-Q Not Given Q6HR [facility] Protocol Ondansetron HCl 4 mg 03/13/21 17:27 Ondansetron Inj 4 Mg/2 Ml Vial IV PUSH Q4H PRN Nausea Radiology Results: ITS Impressions Abdomen/Pelvis CT 03/13/21 16:08 IMPRESSION: Cholelithiasis, mild pericholecystic fat stranding. Acute cholecystitis is not excluded. Normal appendix Small bowel fluid and air-fluid levels, mild thickening of the colon; consider enterocolitis, adynamic ileus No bowel obstruction or free air Moderate thickening of the wall urinary bladder; consider cystitis. Severe atherosclerotic calcifications Abdomen Ultrasound 03/14/21 10:58 IMPRESSION: 1: Cholelithiasis with biliary dilatation and positive sonographic Lawler's sign. Findings compatible with cholecystitis. Clinically correlate. 2:
[2021-03-14 20:32] LABS: Glucose Point of Care 81 mg/dl (65-105)
[2021-03-15] VITALS (12 sets, daily range): BP systolic 141–171; BP diastolic 51–68; PULSE 72–83; RESP 14–22; TEMP 35.7–37.1; O2SAT 93–100
[2021-03-15 00:29] LABS: Glucose Point of Care 166 mg/dl (65-105)
[2021-03-15] MEDS: CHLORHEXIDINE GLUCONATE 4% SOL 120 ML BTL 1 APPLIC TOPICAL (05:45)
[2021-03-15 05:52] LABS: Glucose Point of Care 127 mg/dl (65-105)
[2021-03-15 06:11] LABS: Hemoglobin 11.7 g/dL (12.0-15.0); Mean Corpuscular HGB Conc 31.6 g/dl (32-36); Mean Corpuscular Hemoglobin 32.1 pg (26-34); Mean Corpuscular Volume 101.6 fl (80-100); Mean Platelet Volume 10.6 fl (7.4-10.4); Platelet Count Result 155 k/mm3 (150-375); Red Blood Count 3.64 M/mm3 (4.2-5.4); White Blood Count 9.7 K/mm3 (4.5-10.0)
[2021-03-15 06:50] LABS: Alanine Aminotransferase 12 U/L (4-35); Albumin Level 3.6 g/dL (3.5-5.1); Alkaline Phosphatase 95 U/L (38-126); Anion Gap 11 mmol/L (8-16); Aspartate Amino Transferase 16 U/L (14-36); Bilirubin Indirect 0.5 mg/dL (0-1.1); Bilirubin,Total 0.8 mg/dL (0.2-1.3); Blood Urea Nitrogen 16 mg/dL (7-17); Calcium 8.9 mg/dL (8.4-10.2); Carbon Dioxide 30 mmol/L (22-30); Chloride 95 mmol/L (98-107); Estimated CRCL calculation 15 ml/min; Estimated Glomerular Filt Rate 12; Glucose 134 mg/dL (65-110); Lipase 40 U/L (23-300); Sodium 136 mmol/L (137-145)
[2021-03-15 06:51] LABS: Hemoglobin A1C 10.1 % (<5.7)
--- NOTE | 2021-03-15 09:33 | PM.CNNEP ---
Assessment and Plan Assessment and plan (1) End stage renal disease: Code(s): N18.6 - End stage renal disease Status: Chronic Assessment and Plan: HD yesterday and continue M// schedule while hospitalized follow electrolytes, volume status, and clearance (2) Acute cholecystitis: Onset Date: ~02/2021 Code(s): K81.0 - Acute cholecystitis Status: Acute Assessment and Plan: as evidenced by history and imaging studies to date on antibiotics Surgery has seen and plan cholecystectomy later today continue supportive therapy (3) Hypertension: Qualifiers: Hypertension type: unspecified Qualified Code(s): I10 - Essential (primary) hypertension Code(s): I10 - Essential (primary) hypertension Status: Chronic Assessment and Plan: reasonably controlled at this time follow trend of hemodynamics continue home medications (4) Anemia: Code(s): D64.9 - Anemia, unspecified Status: Acute Assessment and Plan: H/H at goal for ESRD follow H/H post-op Epogen with HD (5) Chronic systolic heart failure: Code(s): I50.22 - Chronic systolic (congestive) heart failure Status: Chronic Assessment and Plan: appears compensated at this time fluid removal with HD to mantain euvolemia (6) Diabetes: Code(s): E11.9 - Type 2 diabetes mellitus without complications Status: Chronic Assessment and Plan: follow accuchecks glycemic control Will continue to follow. History of Present Illness Reason for Consult Consult date: 03/15/21 Reason for consult: end stage renal disease Chief Complaint Chief complaint: Acute Cholecystitis History of Present Illness Narrative: The patient is a 45-year-old female with a past medical history as outlined below who presented to [facility] Emergency room with complaints of nausea, vomiting, and diarrhea. She states that nausea, vomiting, diarrhea seemed of broadly start yesterday but she thinks that she has been having issues with nausea for a few days prior. Associated symptoms include abdominal pain localized to the right upper quadrant that has also progressively gotten worse as well. She reports that her appetite has been somewhat poor but she denies any overt fevers, chills, melena, hematochezia, chest pain, shortness of breath, or palpitations. Due to the worsening of the symptoms, she came to the ER for further evaluation Workup and evaluation emergency room demonstrated the patient to be hemodynamically stable and routine blood test demonstrated an elevated white blood cell count as well as a chemistry panel that was consistent with her known history of end-stage renal disease. She subsequent underwent a CT scan of the abdomen pelvis given her GI symptoms which demonstrated cholelithiasis, mild pericholecystic fat stranding with acute cholecystitis is not excluded, possible enterocolitis. Her exam was significant for tenderness to palpation in the right upper quadrant as well. Given these findings and her symptoms that led to her presentation to the ER, appropriate cultures were obtained and she was started on IV antibiotic therapy for the presumed diagnosis of acute cholecystitis with general surgery consultation. Since her admission, she has had a right upper quadrant ultrasound that confirmed the diagnosis of acute cholecystitis and she received dialysis yesterday to maintain her Friday, Friday, Friday dialysis schedule since she was due for it on that day. She appears to be tolerating IV antibiotic therapy at this time as well. Renal consultation was requested due to her end-stage renal disease. The patient normally dialyzes on a Friday, Friday, Friday dialysis schedule at [facility] under the care of Dr. Gregory Forbes. She received dialysis on Friday at her outpatient dialysis unit and subsequently here on Friday to maintain h
[2021-03-15 11:54] LABS: Glucose Point of Care 159 mg/dl (65-105)
[2021-03-15] MEDS: LACTATED RINGERS 1,000 ML 30 ML IV CONT (12:45)
--- NOTE | 2021-03-15 13:03 | P.HPUP_ITS ---
History and Physical Update Update Date/Time: 03/15/21 13:03 History and Physical has been reviewed, including an updated exam of the patient. There are changes in the patient's condition.Since admission the patient has had 2 rounds of hemodialysis. Her BUN creatinine are down to approp riate levels. She has had an ultrasound which shows definite gallstones but no severe acute cholecystitis however because of continuing abdominal pain it was felt lanza to go ahead and get her gallbladder out while she is off Plavix and so that we could avoid problems with the gallbladder in the future on an urgent basis. Risks, benefits, and alternatives Of a laparoscopic cholecystectomy, possible intraoperative cholangiogram, possible open cholecystectomy have been discussed and questions answered. Patient agrees to proceed with procedure.
[2021-03-15] MEDS: SODIUM CHLORIDE 0.9% IV 500 ML 30 ML IV CONT (13:45)
--- NOTE | 2021-03-15 14:05 | WPDANESEPPF ---
Anes - Initial Pre Proc Eval Procedure: Operation Date: 03/15/21 14:00 Proposed Procedures p Laparoscopic Cholecystectomy,Possible Intraoperative Cholangiograms,Possible Open - Darinel Wen MD Date/Time: 03/15/21 14:05 Surgeon: Reyna Jenkins PA-C Pre Op Diagnosis: Acute Cholecystitis Patient Data Age: 45 Gender: F Height: 1.65 m Weight: 69 kg Last Vital Signs Temp 37.1 C 03/15/21 13:09 Pulse 78 03/15/21 13:09 Resp 18 03/15/21 04:46 BP 167/61 H 03/15/21 13:09 Pulse Ox 95 03/15/21 13:09 Allergies Allergy/AdvReac Type Severity Reaction Status Date / Time No Known Drug Allergies Allergy Unknown Verified 03/15/21 12:43 Home Medications Medication Instructions Recorded Confirmed Type acetaminophen [Mapap 650 mg PO Q4H PRN #60 tablet 06/09/19 03/13/21 Rx (acetaminophen)] insulin aspart U-100 [Novolog 7 unit SUB-Q TIDWM #0 ml 12/10/19 03/13/21 Rx Flexpen U-100 Insulin] ondansetron 4 mg PO Q8H PRN 3 Days #9 tablet 12/10/19 03/13/21 Rx clopidogrel [Plavix] 75 mg PO DAILY 12/01/20 03/13/21 History lisinopril 20 mg PO DAILY 12/01/20 03/13/21 History amlodipine 5 mg PO DAILY 12/20/20 03/13/21 History aspirin 81 mg PO DAILY 12/20/20 03/13/21 History metoclopramide HCl 5 mg PO TIDWM 12/20/20 03/13/21 History Basaglar KwikPen U-100 Insulin 10 unit SUBCUT HS 01/26/21 03/13/21 History carvedilol 25 mg PO DAILY 03/13/21 03/13/21 History furosemide 80 mg PO BID 03/13/21 03/13/21 History bqkygjfa-byde-QK-calcium-mins 1 tablet PO DAILY 03/13/21 03/13/21 History [Thera-M] sevelamer carbonate 1,600 mg PO TIDWM 03/13/21 03/13/21 History Laboratory Tests 03/14/21 03/14/2121 12:51 20:17 00:26 WBC RBC Hgb Hct MCV MCH MCHC RDW Plt Count MPV Sodium Potassium Chloride Carbon Dioxide Anion Gap BUN Creatinine Estim Creat Clear Calc Estimated GFR Glucose POC Capillary Glucose 81 mg/dl mg/dl 166 mg/dl H mg/dl (65-105) (65-105) Hemoglobin A1c Calcium Total Bilirubin Direct Bilirubin Indirect Bilirubin AST ALT Alkaline Phosphatase Total Protein Albumin Lipase Hep Bs Antigen Negative (Negative) Hep Bs Antibody Positive Blood Type Antibody Screen 03/15/21 03/15/21 03/15/21 05:47 05:47 05:47 WBC 9.7 K/mm3 K/mm3 (4.5-10.0) RBC 3.64 M/mm3 L M/mm3 (4.2-5.4) Hgb 11.7 g/dL L g/dL (12.0-15.0) Hct 37.0 % % (37.0-47.0) MCV 101.6 fl H fl (80-100) MCH 32.1 pg pg (26-34) MCHC 31.6 g/dl L g/dl (32-36) RDW 13.0 % % (11.5-14.5) Plt Count 155 k/mm3 k/mm3 (150-375) MPV 10.6 fl H fl (7.4-10.4) Sodium 136 mmol/L L mmol/L (137-145) Potassium 4.0 mmol/L mmol/L (3.4-5.0) Chloride 95 mmol/L L mmol/L (98-107) Carbon Dioxide 30 mmol/L mmol/L (22-30) Anion Gap 11 mmol/L mmol/L (8-16) BUN 16 mg/dL D mg/dL (7-17) Creatinine 3.90 mg/dL H mg/dL (0.7-1.0) Estim Creat Clear Calc 15 ml/min ml/min Estimated GFR 12 L (59 - ) Glucose 134 mg/dL H mg/dL (65-110) POC Capillary Glucose Hemoglobin A1c 10.1 % H % (<5.7) Calcium 8.9 mg/dL mg/dL (8.4-10.2) Total Bilirubin 0.8 mg/dL mg/dL (0.2-1.3) Direct Bilirubin 0.0 mg/dL mg/dL (0-0.3) Indirect Bilirubin 0.5 mg/dL mg/dL (0-1.1) AST 16 U/L U/L (14-36) ALT 12 U/L U/L (4-35) Alkaline Phosphatase 95 U/L
--- NOTE | 2021-03-15 14:14 | P.PNIM_ITS ---
Progress Note: A&P Assessment and Plan (1) Acute cholecystitis: Code(s): K81.0 - Acute cholecystitis Status: Acute Assessment and Plan: Presented with right sided abdominal pain. CT abdomen/pelvis showed carrie lithiasis with mild pericholecystic fat stranding, not able to exclude acute cholecystitis. Ultrasound showed biliary dilatation and positive sonographic Lawler sign, compatible with cholecystitis. LFTs and total bilirubin are normal * Appreciate general surgery consultation * NPO diet * Continue IV Zosyn, renally dosed * Laparoscopic cholecystectomy scheduled for this afternoon * Analgesics and antiemetics available as needed * No fluids at this time to avoid volume overload given her end-stage renal disease (2) End stage renal disease: Code(s): N18.6 - End stage renal disease Status: Chronic Assessment and Plan: On hemodialysis Friday. Last dialysis was 03/14 * Nephrology has been consulted for management of dialysis * Electrolytes stable. Creatinine improved following dialysis to 3.9. (3) Diabetes: Code(s): E11.9 - Type 2 diabetes mellitus without complications Status: Chronic Assessment and Plan: A1c is 10.1. Blood sugars reviewed have been reasonably controlled. * Continue with Accu-Cheks every 6 hours, sliding scale insulin, and hypoglycemic protocol * May resume long-acting insulin when she is eating again. At this time, holding her home insulin while she has been NPO. (4) Systolic heart failure: Code(s): I50.20 - Unspecified systolic (congestive) heart failure Status: Acute Assessment and Plan: Last echo in November 2020 showed severely reduced EF at 30-35%. She appears clinically compensated at this time and is euvolemic * Medications including carvedilol, Lasix, lisinopril on hold at this time while NPO. Resume once able to tolerate p.o. 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 Review of prior labs demonstrates hemoglobin to be at baseline. * Monitor H&H daily (6) CAD (coronary artery disease): Code(s): I25.10 - Atherosclerotic heart disease of [place] coronary artery without angina pectoris Status: Acute Assessment and Plan: With recent cardiac stent in August 2020. * Plavix on hold perioperatively. Resume per General surgery once clinically appropriate. (7) Hypertension: Qualifiers: Hypertension type: unspecified Qualified Code(s): I10 - Essential (primary) hypertension Code(s): I10 - Essential (primary) hypertension Status: Chronic Assessment and Plan: Blood pressure generally well controlled, though increasing somewhat today. Last BP 167/61. * Oral antihypertensives currently on hold, resume once diet is advanced * IV hydralazine prn systolic BP >170 (8) Tobacco dependence: Code(s): F17.200 - Nicotine dependence, unspecified, uncomplicated Status: Chronic Assessment and Plan: She has cut back on smoking and is now smoking 1/4 pack per day. * Continue to encourage complete smoking cessation Subjective Date/time seen: 03/15/21 14:14 Interval history: Date of service: 03/15/2021 Pamela Bhat is a 45-year-old female with ESRD on hemodialysis MWF, CAD, CVA, diabetes mellitus, hypertension, hyperlipidemia, and
--- NOTE | 2021-03-15 14:14 | PM.IMPN ---
Progress Note: A&P Assessment and Plan (1) Acute cholecystitis: Code(s): K81.0 - Acute cholecystitis Status: Acute Assessment and Plan: Presented with right sided abdominal pain. CT abdomen/pelvis showed cholelithiasis with mild pericholecystic fat stranding, not able to exclude acute cholecystitis. Ultrasound showed biliary dilatation and positive sonographic Lawler sign, compatible with cholecystitis. LFTs and total bilirubin are normal Appreciate general surgery consultation NPO diet Continue IV Zosyn, renally dosed Laparoscopic cholecystectomy scheduled for this afternoon Analgesics and antiemetics available as needed No fluids at this time to avoid volume overload given her end-stage renal disease (2) End stage renal disease: Code(s): N18.6 - End stage renal disease Status: Chronic Assessment and Plan: On hemodialysis Friday. Last dialysis was 03/14 Nephrology has been consulted for management of dialysis Electrolytes stable. Creatinine improved following dialysis to 3.9. (3) Diabetes: Code(s): E11.9 - Type 2 diabetes mellitus without complications Status: Chronic Assessment and Plan: A1c is 10.1. Blood sugars reviewed have been reasonably controlled. Continue with Accu-Cheks every 6 hours, sliding scale insulin, and hypoglycemic protocol May resume long-acting insulin when she is eating again. At this time, holding her home insulin while she has been NPO. (4) Systolic heart failure: Code(s): I50.20 - Unspecified systolic (congestive) heart failure Status: Acute Assessment and Plan: Last echo in November 2020 showed severely reduced EF at 30-35%. She appears clinically compensated at this time and is euvolemic Medications including carvedilol, Lasix, lisinopril on hold at this time while NPO. Resume once able to tolerate p.o. 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 Review of prior labs demonstrates hemoglobin to be at baseline. Monitor H&H daily (6) CAD (coronary artery disease): Code(s): I25.10 - Atherosclerotic heart disease of [place] coronary artery without angina pectoris Status: Acute Assessment and Plan: With recent cardiac stent in August 2020. Plavix on hold perioperatively. Resume per General surgery once clinically appropriate. (7) Hypertension: Qualifiers: Hypertension type: unspecified Qualified Code(s): I10 - Essential (primary) hypertension Code(s): I10 - Essential (primary) hypertension Status: Chronic Assessment and Plan: Blood pressure generally well controlled, though increasing somewhat today. Last BP 167/61. Oral antihypertensives currently on hold, resume once diet is advanced IV hydralazine prn systolic BP >170 (8) Tobacco dependence: Code(s): F17.200 - Nicotine dependence, unspecified, uncomplicated Status: Chronic Assessment and Plan: She has cut back on smoking and is now smoking 1/4 pack per day. Continue to encourage complete smoking cessation Subjective Date/time seen: 03/15/21 14:14 Interval history: Date of service: 03/15/2021 Pamela Bhat is a 45-year-old female with ESRD on hemodialysis MWF, CAD, CVA, diabetes mellitus, hypertension, hyperlipidemia, and several other comorbidities who is seen in follow-up for acute cholecystitis. She is feeling better today. Her pain is mostly in the right lower quadrant and she rates as 5/10. She has had loose stools today. Denies nausea, vomiting, fever, or chills. She has been NPO today. She is able to get up and walk to the bathroom independently. Denies dizziness or lightheadedness. Denies shortness of breath, cough, chest pain, palpitations, lower extremity edema.
--- NOTE | 2021-03-15 14:48 | SUR.OPER ---
UPPER LEFT ARM AV GRAFT WITH PALPABLE STRONG THRILL. NOTHING ON LEFT ARM. BP ON RIGHT UPPER ARM.
[2021-03-15] MEDS: BUPIVACAINE/EPINEPHRINE 0.25% 50 ML VIAL 20 ML INFILTRATE (14:54)
[2021-03-15] MEDS: BUPIVACAINE/EPINEPHRINE 0.25% 50 ML VIAL INFILTRATE (15:48)
--- NOTE | 2021-03-15 16:00 | SUR.OPER ---
ANG AV SITE GRAFT WITH +THRILL STRONG.
--- NOTE | 2021-03-15 16:10 | W.PM.PROC2 ---
Procedure Note - Detailed Date of Procedure 03/15/21 Pre-op Diagnosis Acute Cholecystitis with cholelithiasis and gallbladder polyps Post-op Diagnosis same (Also cecal diverticulitis with active inflammation. ) Procedure Performed Laproscopic Cholecystectomy Surgeon Darinel Wen MD Director Inpatient Headache Program [email or web address] medical assisting program director Anesthesia general Findings Patient had a thick collapsed gallbladder with significant omental adhesions to its underside There was a area of inflammation induration approximately 2 x 3 cm in size on the anterior lateral wall of the cecum densely adhered to the anterior abdominal wall and to a piece of omentum. I carefully examined the appendix which appeared to be normal and somewhat inferior to this area of inflammation. No other obvious abnormalities of the right colon. Liver had a dull jordan color rather than usual reddish brown color. Description of Procedure Patient was seen preoperatively in the holding area and risks, benefits and alternatives confirmed. Patient was taken to the operating room and general anesthesia was induced. A time out was then preformed with the surgery team confirming patient and site of surgery. The abdomen was prepped and draped in the usual sterile fashion. Incision was made just below the umbilicus with an 11 blade knife. I placed 2 stay sutures of O- Vicryl on either side of what appeared to be the mid-line fascia beneath the umbilicus. However, it appeared that a perhaps just off to the right side a little bit and we saw some muscle. My sutures were in the anterior rectus sheath. Carefully used S retractors to expose the underlying posterior rectus sheath and peritoneum. This was tented up between 2 hemostats. Small incision was made with 11 bed blade knife under direct vision. This was extended with the scissors and under direct vision was then able to slide in the Chavira cannula through the fascial defect into the peritoneum. First under low flow and then under high flow the abdomen was insufflated with carbon dioxide never exceeding a pressure of 14. Three 5 mm trocars were then introduced under direct vision. The following trocars were introduced under direct vision: a 5 mm in the epigastrium and two 5 mm trocars along the right costal margin laterally in the subcostal area. There were significant omental adhesions to the underside of the gallbladder. These were taken down with blunt and sharp dissection using some Bovie cautery for hemostasis. We were able to dissect this completely away from the neck of the gallbladder. I then carefully used the L-shaped cautery and the [place] dissector to dissect out the triangle of [place]. I then was able to dissect out both the cystic duct and cystic artery and identify a window of safety. The gall bladder was grasped and the cystic duct and artery were dissected free and clipped with an 5 mm endo-clip attic blower. The cystic duct and artery were clipped with use of 2 clips on the patient's side 1 on the gallbladder side utilizing a 5 mm endoclip-attic blower. The cystic duct was then transected. The cystic artery was also transected at this point. The gall bladder was removed using electrocautery and then removed from the abdomen using a large 10 mm grasper via the umbilical incision. After removing the gallbladder we left the 0 degree 5 mm laparoscope on the camera and using the upper midline port site careful visualized the area of possible inflammation in the right lower quadrant where the patient had had pain On preop physical exam. I wanted to make sure the appendix was not inflamed. I found that about 5 cm above the base of the appendix the anterior, lateral wall of the cecum was densely adhered to the overlying peritoneum of the underside of the right lower quadrant abdominal wall. We were carefully able to push this down with a grasper. There was no evidence of a hole in the colon wall but there was an area of thickening of the wall pre
[2021-03-15 16:16] LABS: Glucose Point of Care 156 mg/dl (65-105)
[2021-03-15] MEDS: fentaNYL CITRATE INJ (*CRX) 100 MCG/2 ML VIAL 25 MCG IV PUSH ×2 (16:40→16:46)
[2021-03-15 17:16] LABS: Glucose Point of Care 148 mg/dl (65-105)
[2021-03-15] MEDS: MORPHINE SULFATE (*CRX) 4 MG/ML INJ IV PUSH (20:10)
[2021-03-15 21:10] LABS: Glucose Point of Care 140 mg/dl (65-105)
[2021-03-16] VITALS (13 sets, daily range): BP systolic 121–154; BP diastolic 53–82; PULSE 67–77; RESP 16–20; TEMP 36.3–37; O2SAT 97–99
[2021-03-16] MEDS: MORPHINE SULFATE (*CRX) 4 MG/ML INJ IV PUSH (00:40)
[2021-03-16] MEDS: HYDROcodone/acetaminophen (*CRX) 7.5-325 MG TABLET 1 TAB PO ×2 (05:19→15:50)
[2021-03-16 06:15] LABS: Hematocrit 37.5 % (37.0-47.0); Hemoglobin 11.7 g/dL (12.0-15.0); Mean Corpuscular HGB Conc 31.2 g/dl (32-36); Mean Corpuscular Hemoglobin 31.7 pg (26-34); Mean Corpuscular Volume 101.6 fl (80-100); Mean Platelet Volume 10.4 fl (7.4-10.4); Platelet Count Result 192 k/mm3 (150-375); Red Blood Count 3.69 M/mm3 (4.2-5.4); White Blood Count 10.5 K/mm3 (4.5-10.0)
[2021-03-16 06:49] LABS: Alanine Aminotransferase 23 U/L (4-35); Albumin Level 3.8 g/dL (3.5-5.1); Alkaline Phosphatase 94 U/L (38-126); Anion Gap 14 mmol/L (8-16); Aspartate Amino Transferase 42 U/L (14-36); Bilirubin,Total 0.8 mg/dL (0.2-1.3); Blood Urea Nitrogen 27 mg/dL (7-17); Calcium 8.3 mg/dL (8.4-10.2); Carbon Dioxide 29 mmol/L (22-30); Chloride 93 mmol/L (98-107); Estimated CRCL calculation 10 ml/min; Estimated Glomerular Filt Rate 8; Glucose 136 mg/dL (65-110); Potassium 4.5 mmol/L (3.4-5.0); Sodium 136 mmol/L (137-145)
[2021-03-16] MEDS: ONDANSETRON INJ 4 MG/2 ML VIAL IV PUSH ×2 (09:32→17:10)
--- NOTE | 2021-03-16 09:53 | PM.IMPN ---
Progress Note: A&P Assessment and Plan (1) Acute cholecystitis: Onset Date: ~02/2021 Code(s): K81.0 - Acute cholecystitis Status: Acute Assessment and Plan: Presented with right sided abdominal pain. CT abdomen/pelvis showed cholelithiasis with mild pericholecystic fat stranding, not able to exclude acute cholecystitis. Ultrasound showed biliary dilatation and positive sonographic Lawler sign, compatible with cholecystitis. LFTs and total bilirubin are normal Postop day #1 from laparoscopic cholecystectomy by . Appreciate general surgery consultation. She is on a full liquid diet at this time, had some nausea after drinking coffee. Continue IV Zosyn, renally dosed Analgesics and antiemetics available as needed No fluids at this time to avoid volume overload given her end-stage renal disease Agrees with starting aspirin today and Plavix tomorrow morning. talked to the surgeon believes during her laparoscopic cholecystectomy he saw an area of diverticulitis on her right colon. This is why her IV Zosyn is continued at this time. He recommends once she is discharged to complete a total of 7 days of antibiotics, and agrees with Augmentin and Flagyl. He recommends the patient following up with her GI specialist who she has seen Dr. Ramirez and Dr. Rivera in the past year and a half to have a colonoscopy completed within the next 4-6 weeks after acute infection has resolved. (2) End stage renal disease: Code(s): N18.6 - End stage renal disease Status: Chronic Assessment and Plan: On hemodialysis Friday. Last dialysis was 03/14 Nephrology has been consulted for management of dialysis Patient going to dialysis today. (3) Diabetes: Code(s): E11.9 - Type 2 diabetes mellitus without complications Status: Chronic Assessment and Plan: A1c is 10.1. Blood sugars reviewed have been reasonably controlled. Continue with Accu-Cheks every 6 hours, sliding scale insulin, and hypoglycemic protocol May resume long-acting insulin when she is eating again. At this time, holding her home insulin while she has been NPO. (4) Systolic heart failure: Code(s): I50.20 - Unspecified systolic (congestive) heart failure Status: Acute Assessment and Plan: Last echo in November 2020 showed severely reduced EF at 30-35%. She appears clinically compensated at this time and is euvolemic Medications including carvedilol, Lasix, lisinopril on hold at this time while NPO. Resume once able to tolerate p.o. intake. Will try starting these in the morning since she had nausea this morning and going to be going to dialysis. 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 Review of prior labs demonstrates hemoglobin to be at baseline. Monitor H&H daily (6) CAD (coronary artery disease): Code(s): I25.10 - Atherosclerotic heart disease of [place] coronary artery without angina pectoris Status: Acute Assessment and Plan: With recent cardiac stent in August 2020. Plavix on hold perioperatively. Resume per General surgery once clinically appropriate. (7) Hypertension: Qualifiers: Hypertension type: unspecified Qualified Code(s): I10 - Essential (primary) hypertension Code(s): I10 - Essential (primary) hypertension Status: Chronic Assessment and Plan: Blood pressure generally well controlled, though increasing somewhat today. Last BP 139/53. Oral antihypertensives currently on hold, resume once diet is advanced IV hydralazine prn systolic BP >170 (8) Tobacco dependence: Code(s): F17.200 - Nicotine dependence, unspecified, uncomplicated Status: Chronic Assessment and Plan: She has cut back on smoking and is now sm
--- NOTE | 2021-03-16 10:28 | PM.PNGS ---
Progress Note: A&P Assessment and Plan (1) Acute cholecystitis: Onset Date: ~02/2021 Code(s): K81.0 - Acute cholecystitis Status: Acute Assessment and Plan: Patient gradually improving status post laparoscopic cholecystectomy yesterday. (2) Cecal diverticulitis: Onset Date: ~03/14/21 Code(s): K57.32 - Diverticulitis of large intestine without perforation or abscess without bleeding Status: Acute Assessment and Plan: Patient had a somewhat unusual 3 x 3 cm area of the anterior, lateral surface of the cecum adhered with inflammatory adhesions to the anterior abdominal wall/peritoneum in the right lower quadrant where her complaints of abdominal pain were preoperatively. Therefore, since the appendix looked normal I would recommend treatment for 7 more days with antibiotics as if this was a cecal diverticulitis. There was no signs of perforation. Would then recommend patient see her GI physician and consider follow-up colonoscopy in approximately 3-4 weeks. (3) Antiplatelet or antithrombotic long-term use: Code(s): Z79.02 - alf (current) use of antithrombotics/antiplatelets Status: Chronic Assessment and Plan: Ok to resume 81 mg ASA today and if labs stay stable and Dialysis goes well Ok to resume Plavix because of her CAD & stents on 03/17. (4) Diabetes: Code(s): E11.9 - Type 2 diabetes mellitus without complications Status: Chronic (5) End stage renal disease: Code(s): N18.6 - End stage renal disease Status: Chronic (6) Systolic heart failure: Code(s): I50.20 - Unspecified systolic (congestive) heart failure Status: Acute (7) Anemia: Code(s): D64.9 - Anemia, unspecified Status: Acute Assessment and Plan: Hb stabel at 11. (8) Gastroparesis due to DM: Code(s): E11.43 - Type 2 diabetes mellitus with diabetic autonomic (poly)neuropathy; K31.84 - Gastroparesis Status: Acute Time Spent With Patient Time with patient: less than 15 minutes Subjective Subjective Date/Time Seen: 03/16/21 10:28 Post Op day: 1 (Slightly nauseated this a.m.) Review of Systems Constitutional: Constitutional: Reports no additional constitutional complaints ENT: Reports other (Mucous Membranes moist.) Cardiovascular: Cardiovascular: Denies dyspnea Respiratory: Respiratory: Denies pain on inspiration and Denies dyspnea Musculoskeletal: Musculoskeletal: Reports other (No calf swelling or edema) Integumentary/Breasts: Skin/Breast: Reports system reviewed and no additional complaints, except as docu Exam Const: General: cooperative, no acute distress, alert and awake Orientation/consciousness: patient oriented x3 HENMT: Mouth: Yes moist mucous membranes Neck: Neck: normal visual inspection Chest: Chest palpation & inspection: normal inspection of the chest Resp: Effort & Inspection: normal respiratory effort Auscultation: clear to auscultation bilaterally Cardio: Jugular venous distension: no JVD Rate: regular rate Rhythm: regular rhythm GI: Inspection: incision (CD & I with surgical glue on them) GI Palp: Yes Soft to palpation, No Tenderness to palpation present (GI) and No Guarding due to palpation present (GI) Rectal Exam: deferred Neuro: General: patient oriented x3 and moves all extremities Speech: normal speech Extrem: General: normal exam except as noted Psych: Mental Status: mental status grossly normal Speech and movement: Normal speech and movement present Affect: normal affect Thought content: Yes Normal thought content present Objective Data Vital Signs Vital Signs: Vital Signs - 24 hr 03/15/21 13:09 03/15/21 16:01 03/15/21 16:15 Temperature 37.1 C 36.4 C Pulse Rate 78 83 78 Respiratory Rate 22 H 20 Blood Pressure 167/61 H 154/68 H 171/65 H Pulse Oximetry 95 100 100 03/15/21 16:30 03/15/21 16:45 03/15/21 16:54 Temperature Pulse Rate 73 72 72 Respirato
[2021-03-16] MEDS: HYDROcodone/acetaminophen (*CRX) 5-325 MG TABLET 1 TAB PO (10:54)
[2021-03-16] MEDS: METOCLOPRAMIDE HCL 5 MG TABLET PO ×2 (10:54→16:47)
--- NOTE | 2021-03-16 12:10 | PM.PNNEP ---
Progress Note: A&P Assessment and Plan (1) End stage renal disease: Code(s): N18.6 - End stage renal disease Status: Chronic Assessment and Plan: HD today and continue M/W/F schedule while hospitalized follow electrolytes, volume status, and clearance (2) Acute cholecystitis: Onset Date: ~02/2021 Code(s): K81.0 - Acute cholecystitis Status: Acute Assessment and Plan: as evidenced by history and imaging studies to date on antibiotics s/p laproscopic cholecystectomy by General Surgery continue supportive therapy (3) Hypertension: Qualifiers: Hypertension type: unspecified Qualified Code(s): I10 - Essential (primary) hypertension Code(s): I10 - Essential (primary) hypertension Status: Chronic Assessment and Plan: reasonably controlled at this time follow trend of hemodynamics continue home medications (4) Anemia: Code(s): D64.9 - Anemia, unspecified Status: Acute Assessment and Plan: H/H at goal for ESRD follow H/H post-op Epogen with HD (5) Chronic systolic heart failure: Code(s): I50.22 - Chronic systolic (congestive) heart failure Status: Chronic Assessment and Plan: appears compensated at this time fluid removal with HD to mantain euvolemia (6) Diabetes: Code(s): E11.9 - Type 2 diabetes mellitus without complications Status: Chronic Assessment and Plan: follow accuchecks on SSI Will continue to follow. Subjective Date/time seen: 03/16/21 12:10 Patient tolerating hemodialysis treatment at the time of my visit (seen on HD at 11:50am); tolerated surgery yesterday as well; no apparent distress voiced; no events overnight. Exam Narrative: General: WD/WN female in NAD Heart: normal S1 and S2; no rub Lungs: clear to auscultation Abdomen: soft, mild TTP, positive bowel sounds Extremities: no cyanosis or clubbing; no edema Skin: warm and intact Objective Data Vital Signs Vital Signs: Vital Signs Temp Pulse Resp BP Pulse Ox 03/16/21 04:30 36.4 C 77 16 139/53 L 97 03/15/21 21:04 36.3 C L 73 16 141/51 H 96 03/15/21 20:00 73 16 96 03/15/21 18:15 35.7 C L 72 20 144/58 H 96 03/15/21 17:45 35.8 C L 74 16 149/52 H 95 03/15/21 17:30 35.8 C L 75 14 152/53 H 95 03/15/21 16:54 72 16 142/60 H 93 03/15/21 16:45 72 18 155/61 H 94 03/15/21 16:30 73 20 160/61 H 100 03/15/21 16:15 78 20 171/65 H 100 03/15/21 16:01 36.4 C 83 22 H 154/68 H 100 03/15/21 13:09 37.1 C 78 167/61 H 95 Intake/Output Intake/Output: Intake & Output 03/13/21 03/14/21 03/15/21 03/16/21 23:59 23:59 23:59 23:59 Intake Total 520 620 530 200 Output Total 1170 50 100 Balance 520 -550 480 100 Meds/Results Medications: Active Medications Generic Name Dose Route Start Last Admin Trade Name Freq PRN Reason Stop Dose Admin Acetaminophen 500 mg 03/15/21 16:54 Acetaminophen 500 Mg Tablet PO Q6H PRN Mild Pain (1-3) or Fever Hydrocodone Bitart/Acetaminophen 1 tab 03/15/21 16:54 03/16/21 05:19 Hydrocodone/Acetaminophen (*Crx) 7.5-325 Mg Tablet PO 1 tab Q4H PRN Administration Pain Rated 7-10 Hydrocodone Bitart/Acetaminophen 1 tab 03/15/21 16:54 03/16/21 10:54 Hydrocodone/Acetaminophen (*Crx) 5-325 Mg Tablet PO 1 tab Q4H PRN Administration Pain Rated 4-6 Dextrose 12.5 gm 03/13/21 23:40 Dextrose 50% 25 Gm/50 Ml Syringe IV PUSH PRN PRN Hypoglycemia Protocol Glucagon 1 mg 03/13/21 23:40 Glucagon For Inj 1 Mg Vial IM PRN PRN Hypoglycemia Protocol Glucose 15 gm 03/13/21 23:40 Glucose Oral Gel 15 Gm Of Glucse In 37.5 Gm Tube PO PRN PRN Hypoglycemia Protocol Hydralazine HCl 10 mg 03/14/21 11:46 Hydralazine Hcl 20 Mg/Ml Vial IV PUSH Q8H PRN Syst BP >170, Diastolic BP >95 Piperacillin
[2021-03-16] MEDS: ASPIRIN 81 MG ENTERIC TABLET PO (15:44)
[2021-03-16 17:23] LABS: Glucose Point of Care 99 mg/dl (65-105)
[2021-03-16 20:41] LABS: Glucose Point of Care 187 mg/dl (65-105)
[2021-03-16] MEDS: SENNA/DOCUSATE SODIUM TABLET 2 TAB PO (21:10)
[2021-03-17] MEDS: HYDROcodone/acetaminophen (*CRX) 7.5-325 MG TABLET 1 TAB PO (01:15)
[2021-03-17 04:40] VITALS: BP 130/55; PULSE 70; RESP 16; TEMP 36.4; O2SAT 98
[2021-03-17 07:49] LABS: Hematocrit 38.4 % (37.0-47.0); Hemoglobin 11.9 g/dL (12.0-15.0); Mean Corpuscular Hemoglobin 31.5 pg (26-34); Mean Corpuscular Volume 101.6 fl (80-100); Mean Platelet Volume 10.4 fl (7.4-10.4); Platelet Count Result 175 k/mm3 (150-375); Red Blood Count 3.78 M/mm3 (4.2-5.4); Red Cell Distribution Width 12.8 % (11.5-14.5); White Blood Count 7.2 K/mm3 (4.5-10.0)
[2021-03-17 08:04] LABS: Alanine Aminotransferase 27 U/L (4-35); Albumin Level 3.9 g/dL (3.5-5.1); Alkaline Phosphatase 100 U/L (38-126); Anion Gap 10 mmol/L (8-16); Aspartate Amino Transferase 34 U/L (14-36); Bilirubin,Total 0.6 mg/dL (0.2-1.3); Blood Urea Nitrogen 19 mg/dL (7-17); Calcium 9.1 mg/dL (8.4-10.2); Carbon Dioxide 28 mmol/L (22-30); Chloride 97 mmol/L (98-107); Estimated CRCL calculation 13 ml/min; Estimated Glomerular Filt Rate 11; Glucose 275 mg/dL (65-110); Potassium 4.2 mmol/L (3.4-5.0); Sodium 135 mmol/L (137-145)
[2021-03-17 08:45] LABS: Glucose Point of Care 226 mg/dl (65-105)
[2021-03-17] MEDS: INSULIN ASPART (*BKC) 100 UNITS/ML SUB-Q ×2 (08:59→13:20)
[2021-03-17] MEDS: CLOPIDOGREL BISULFATE 75 MG TABLET PO (09:01)
[2021-03-17] MEDS: ASPIRIN 81 MG ENTERIC TABLET PO (09:01)
[2021-03-17] MEDS: METOCLOPRAMIDE HCL 5 MG TABLET PO ×2 (09:01→13:23)
[2021-03-17] MEDS: HYDROcodone/acetaminophen (*CRX) 5-325 MG TABLET 1 TAB PO ×2 (09:13→13:30)
[2021-03-17 10:25] VITALS: PULSE 80
[2021-03-17] MEDS: carvediloL 25 MG TABLET PO (10:25)
[2021-03-17] MEDS: lisinopriL 20 MG TABLET PO (10:25)
--- NOTE | 2021-03-17 12:11 | PM.PNNEP ---
Progress Note: A&P Assessment and Plan (1) End stage renal disease: Code(s): N18.6 - End stage renal disease Status: Chronic Assessment and Plan: HD tomorrow and continue M/W/F schedule while hospitalized follow electrolytes, volume status, and clearance (2) Acute cholecystitis: Onset Date: ~02/2021 Code(s): K81.0 - Acute cholecystitis Status: Acute Assessment and Plan: as evidenced by history and imaging studies to date on antibiotics s/p laproscopic cholecystectomy by General Surgery continue supportive therapy (3) Hypertension: Qualifiers: Hypertension type: unspecified Qualified Code(s): I10 - Essential (primary) hypertension Code(s): I10 - Essential (primary) hypertension Status: Chronic Assessment and Plan: reasonably controlled at this time follow trend of hemodynamics continue home medications (4) Anemia: Code(s): D64.9 - Anemia, unspecified Status: Acute Assessment and Plan: H/H at goal for ESRD follow H/H post-op Epogen with HD (5) Chronic systolic heart failure: Code(s): I50.22 - Chronic systolic (congestive) heart failure Status: Chronic Assessment and Plan: appears compensated at this time fluid removal with HD to mantain euvolemia (6) Diabetes: Code(s): E11.9 - Type 2 diabetes mellitus without complications Status: Chronic Assessment and Plan: follow accuchecks on SSI Will continue to follow. Subjective Date/time seen: 03/17/21 12:11 Tolerated dialysis yesterday without any acute issues or problems; still with some mild abdominal tenderness following recent operative intervention but tolerable; tolerating oral intake at this time. Exam Narrative: General: WD/WN female in NAD Heart: normal S1 and S2; no rub Lungs: clear to auscultation Abdomen: soft, mild TTP, positive bowel sounds Extremities: no cyanosis or clubbing; no edema Skin: no rash or nodules Objective Data Vital Signs Vital Signs: Vital Signs Temp Pulse Resp BP Pulse Ox 03/17/21 10:25 80 03/17/21 04:40 36.4 C L 70 16 130/55 L 98 03/16/21 20:23 36.8 C 72 16 148/55 H 99 03/16/21 18:39 36.3 C L 67 16 142/82 H 99 Intake/Output Intake/Output: Intake & Output 03/14/21 03/15/21 03/16/21 03/17/21 23:59 23:59 23:59 23:59 Intake Total 620 530 710 680 Output Total 1170 50 2487 Balance -550 480 -3777 680 Meds/Results Radiology Results: ITS Impressions Abdomen/Pelvis CT 03/13/21 16:08 IMPRESSION: Cholelithiasis, mild pericholecystic fat stranding. Acute cholecystitis is not excluded. Normal appendix Small bowel fluid and air-fluid levels, mild thickening of the colon; consider enterocolitis, adynamic ileus No bowel obstruction or free air Moderate thickening of the wall urinary bladder; consider cystitis. Severe atherosclerotic calcifications Abdomen Ultrasound 03/14/21 10:58 IMPRESSION: 1: Cholelithiasis with biliary dilatation and positive sonographic Lawler's sign. Findings compatible with cholecystitis. Clinically correlate. 2: Gallbladder polyps. Abdomen X-Ray 03/17/21 14:16 IMPRESSION: 1. Nonspecific bowel gas pattern without evidence of obstruction. Labs Labs: Laboratory Tests 03/17/21 07:13 03/17/21 07:13
[2021-03-17 12:48] LABS: Glucose Point of Care 285 mg/dl (65-105)
[2021-03-17] MEDS: AMOXICILLIN/CLAVULANATE K 500-125 MG TAB 1 TABLET PO (13:22)
[2021-03-17] MEDS: metroNIDAZOLE 250 MG TABLET 500 MG PO (13:23)
--- NOTE | 2021-03-17 15:08 | PM.DS ---
DS: Admitting Diagnosis Discharge Date 03/17/21 Admitting Diagnosis Abd pain DS: Discharge Diagnosis Discharge Diagnosis (1) Acute cholecystitis: Onset Date: ~02/2021 Code(s): K81.0 - Acute cholecystitis Status: Acute Assessment and Plan: The patient is a 45-year-old woman with a history of end-stage renal disease on hemodialysis, insulin dependent diabetes, who presented to the emergency room with right-sided abdominal pain with associated nausea and was found to have acute cholecystitis. Vitals showed stable blood pressure 138/53, non tachycardic, low-grade fever at 99.4F, normal oxygenation on room air. Initial labs showed leukocytosis at 18,000, elevated neutrophils at 90%, elevated creatinine and BUN consistent with her end-stage renal disease on dialysis, glucose 227, normal lactic acid level 01.2. Normal AST/ALT, slight elevation of alkaline phosphatase. Normal lipase. TSH normal. CT abdomen pelvis showed cholelithiasis, mild pericholecystic fat stranding. Acute cholecystitis is not excluded. Right upper quadrant ultrasound showed Cholelithiasis with biliary dilatation and positive sonographic Lawler's sign. Findings compatible with cholecystitis. The patient was admitted into the hospital on IV antibiotics and consult to General surgery. Patient was taken to the operating room on 03/15/2021 for a laparoscopic cholecystectomy. Postop the patient was doing well, advancing diet without any complications. She had dialysis without any issues. She was stable to be discharged home to continue her medications as prescribed and dialysis. * talked to the surgeon believes during her laparoscopic cholecystectomy he saw an area of diverticulitis on her right colon. This is why her IV Zosyn is continued at this time. He recommends once she is discharged to complete a total of 7 days of antibiotics, and agrees with Augmentin and Flagyl. He recommends the patient following up with her GI specialist who she has seen Dr. Ramirez and Dr. Rivera in the past year and a half to have a colonoscopy completed within the next 4-6 weeks after acute infection has resolved. (2) End stage renal disease: Code(s): N18.6 - End stage renal disease Status: Chronic (3) Diabetes: Code(s): E11.9 - Type 2 diabetes mellitus without complications Status: Chronic Assessment and Plan: A1c is 10.1. Blood sugars reviewed have been reasonably controlled. (4) Systolic heart failure: Code(s): I50.20 - Unspecified systolic (congestive) heart failure Status: Acute Assessment and Plan: Last echo in November 2020 showed severely reduced EF at 30-35%. 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 Review of prior labs demonstrates hemoglobin to be at baseline. (6) CAD (coronary artery disease): Code(s): I25.10 - Atherosclerotic heart disease of [place] coronary artery without angina pectoris Status: Acute Assessment and Plan: With recent cardiac stent in August 2020. Continue aspirin and Plavix at this time (7) Hypertension: Qualifiers: Hypertension type: unspecified Qualified Code(s): I10 - Essential (primary) hypertension Code(s): I10 - Essential (primary) hypertension Status: Chronic Assessment and Plan: Blood pressure generally well controlled, though increasing somewhat today. Last BP 139/53. (8) Tobacco dependence: Code(s): F17.200 - Nicotine dependence, unspecified, uncomplicated Status: Chronic Assessment and Plan: She has cut back on smoking and is now smoking 1/4 pack per day. Continue to encourage complete smoking cessation DS: Summary Hospital Course Hospital Course: See above
--- NOTE | 2021-03-17 15:11 | PC.NURSE ---
bladder scan of 147 was reported to Holly Sexton.
[2021-03-18 18:40] LABS: Hepatitis B Core Ab Total Nonreactive (Nonreactive)
== END 2021-03-17 17:45 | disposition home or self-care (01) | DRG 417 ==
LOC: ANHED 17:16 → ANH3MED 22:06
PROVIDERS: Emergency Medicine; Internal Medicine Nephrology; Nurse Practitioner; Physician Assistant; Surgery; Admitting Provider Internal Medicine; Emergency Provider Emergency Medicine; PCP Internal Medicine; Visit Provider Physician Assistant
PROC: 0FT44ZZ Resection of Gallbladder, Percutaneous Endoscopic Approach (ICD-10-PCS; CPT 47562; principal; 2021-03-15 14:00)
DX: K80.00 Calculus of gallbladder with acute cholecystitis without obstruction (principal); N18.6 End stage renal disease; G93.5 Compression of brain; I13.2 Hypertensive heart and chronic kidney disease with heart failure and with stage 5 chronic kidney disease, or end stage renal disease; K57.32 Diverticulitis of large intestine without perforation or abscess without bleeding; I50.20 Unspecified systolic (congestive) heart failure; E11.22 Type 2 diabetes mellitus with diabetic chronic kidney disease; D63.1 Anemia in chronic kidney disease; I25.10 Atherosclerotic heart disease of native coronary artery without angina pectoris; E11.43 Type 2 diabetes mellitus with diabetic autonomic (poly)neuropathy; K31.84 Gastroparesis; E78.5 Hyperlipidemia, unspecified; F17.210 Nicotine dependence, cigarettes, uncomplicated; Z95.5 Presence of coronary angioplasty implant and graft; Z86.73 Personal history of transient ischemic attack (TIA), and cerebral infarction without residual deficits; Z99.2 Dependence on renal dialysis; Z89.422 Acquired absence of other left toe(s); Z79.02 Long term (current) use of antithrombotics/antiplatelets
CPT/HCPCS: 36415; 74018; 74176; 76705; 80053; 81001; 82248; 82948; 83036; 83605; 83690; 84100; 84443; 85025; 85027; 85055; 86704; 86706; 86850; 86900; 86901; 87040; 87340; 88304; 93005; 96365; 96375; 99285; A9270; G0257; J1100; J1815; J2250; J2270; J2405; J2543; J2704; J2710; J3010; J7030; J7040; J7120; Q9966

== ENCOUNTER 2021-03-22 15:34 | Inpatient (IN) | payer OTHER, MEDICARE, MEDICAID, SELFPAY ==
[2021-03-22] VITALS (15 sets, daily range): BP systolic 140–181; BP diastolic 55–80; PULSE 92–115; RESP 17–36; TEMP 36.5; O2SAT 88–100
--- NOTE | ~2021-03-22 | XR_ITS ---
XR chest 1V portable 03/22/2021 16:51 Indication: Chest pain, nausea, vomiting. Coronary artery disease. Procedure: AP portable chest Comparison: Comparison to multiple prior studies sequentially, with oldest reviewed study dated 10/2020. Findings: Cardiomegaly. No focal air space disease, pulmonary edema, pleural effusion or suspected pn eumothorax. No acute osseous abnormality. Impression: 1: No acute cardiopulmonary disease. Reviewed, dictated and finalized at location A. Impression: 1: No acute cardiopulmonary disease.
--- NOTE | ~2021-03-22 | CT_ITS ---
EXAMINATION: CT abdomen pelvis wo con DATE: 03/23/2021 10:01 INDICATION: Nausea, vomiting, and diarrhea. TECHNIQUE: Computed tomography (CT) of the abdomen and pelvis was performed without intravenous contr ast. Automated exposure control and iterative reconstruction technique were employed. The dose-length product was 439.37 mGy-cm. COMPARISON: CT abdomen and pelvis 03/13/2021 FINDINGS: The visualized portions of the lung bases demonstrate septal thickening, consistent with mi ld pulmonary edema. There is mild dependent atelectasis bilaterally. No pleural effusion. Cardiomegal y is noted. There are coronary artery calcifications. No pericardial effusion. The liver is normal. T here are changes of cholecystectomy. No abnormal fluid collection in the gallbladder fossa. There are small subcutaneous hematomas at the port sites in the anterior abdominal wall. The spleen, pancreas, adrenal glands, and kidneys are normal. There are widespread arterial calcifications. There are no d ilated loops of bowel. The appendix is normal. There are no pathologically enlarged lymph nodes. Ther e is no free intraperitoneal fluid. There is edema of the body wall fat and intra-abdominal fat. Ther e is mild thoracolumbar spondylosis. IMPRESSION: 1. Mild pulmonary edema. 2. Cardiomegaly. Reviewed, dictated and finalized at location A.
--- NOTE | ~2021-03-22 | CT_ITS ---
EXAMINATION: CTA chest PE protocol DATE: 03/22/2021 19:02 INDICATION: Shortness of breath. Chest pain. Elevated d-dimer. TECHNIQUE: Computed tomography (CT) pulmonary angiogram of the chest was performed with 100 mL Omnipa que-350 intravenous contrast. Additional 3D reconstructions utilizing coronal maximum intensity proje ction (MIP) were performed. Automated exposure control and iterative reconstruction technique were em ployed. The dose-length product was 420.35 mGy-cm. COMPARISON: None FINDINGS: Excellent contrast opacification of the pulmonary arteries. There is moderate streak artifact from de nse contrast in the superior vena cava and right atrium. Mild scattered respiratory motion artifact w hich mildly decreases sensitivity in some of the smaller subsegmental pulmonary arteries. No pulmonar y embolism. Diffuse smooth septal line thickening throughout both lungs with groundglass opacities in the dependent and basilar lower lobes consistent with mild to moderate pulmonary edema. No pleural e ffusion or pneumothorax. Cardiomegaly. Atherosclerotic coronary artery calcification. No pericardial effusion. Thoracic aorta is normal in caliber with no dissection. Mild likely reactive bilateral edgardo r lymphadenopathy. Mild chest wall edema and mild mediastinal edema. Cholecystectomy clips the gallbl adder fossa. Mild to moderate thoracic spondylosis. IMPRESSION: 1. No pulmonary embolism. 2. Congestive heart failure with cardiomegaly and mild to moderate pulmonary edema. 3. Likely reactive mild mediastinal lymphadenopathy. Reviewed, dictated and finalized at location A. IMPRESSION: 1. No pulmonary embolism. 2. Congestive heart failure with cardiomegaly and mild to moderate pulmonary ed maverick. 3. Likely reactive mild mediastinal lymphadenopathy.
[2021-03-22 16:19] LABS: Basophils Absolute Auto 0.1 K/mm3 (0.0-0.1); Basophils Percent Auto 0.4 % (0.2-1.2); Hematocrit 39.1 % (37.0-47.0); Hemoglobin 12.5 g/dL (12.0-15.0); Immature Granulocyte Absolute 0.07 K/mm3 (0.00-0.031); Immature Granulocyte Percent A 0.6 % (0-0.5); Lymphocytes Absolute Auto 0.95 K/mm3 (0.9-3.2); Lymphocytes Percent Auto 8.2 % (18.3-44.2); Mean Corpuscular Hemoglobin 32.5 pg (26-34); Mean Corpuscular Volume 101.6 fl (80-100); Mean Platelet Volume 10.4 fl (7.4-10.4); Monocytes Absolute Auto 0.4 K/mm3 (0.1-0.6); Monocytes Percent Auto 3.7 % (2.6-8.5); Neutrophils Percent Auto 87.1 % (45.5-73.1); Platelet Count Result 280 k/mm3 (150-375); Red Blood Count 3.85 M/mm3 (4.2-5.4); Red Cell Distribution Width 13.2 % (11.5-14.5); White Blood Count 11.5 K/mm3 (4.5-10.0)
[2021-03-22 16:35] LABS: Albumin Level 4.8 g/dL (3.5-5.1); Alkaline Phosphatase 173 U/L (38-126); Anion Gap 25 mmol/L (8-16); Aspartate Amino Transferase 42 U/L (14-36); Blood Urea Nitrogen 40 mg/dL (7-17); Calcium 9.4 mg/dL (8.4-10.2); Carbon Dioxide 32 mmol/L (22-30); Chloride 84 mmol/L (98-107); Estimated CRCL calculation 10 ml/min; Estimated Glomerular Filt Rate 8; Glucose 547 mg/dL (65-110); Lipase 110 U/L (23-300); Potassium 4.7 mmol/L (3.4-5.0); Sodium 141 mmol/L (137-145)
--- NOTE | 2021-03-22 16:39 | ED.NAVMDI ---
HPI - Nausea/Vomiting/Diarrhea General Chief complaint: Nausea/Vomiting/Diarrhea Stated complaint: VOMITING,DIARRHEA, SOB Time Seen by Provider: 03/22/21 16:16 Source: patient Mode of arrival: ambulatory Limitations: no limitations History of Present Illness HPI Narrative: Patient is a 45-year-old female complaining of nausea, vomiting, and diarrhea that started yesterday. Patient describes her vomitus is nonbilious nonbloody. Her diarrhea is loose watery, nonbloody. Patient also states that she is slightly short of breath, worse with exertion. Patient states that she recently had gallbladder surgery 1 week ago. Patient denies any chest pain, fever or chills. Patient has a history of end-stage renal disease on dialysis Wednesdays and Fridays. Related Data Home Medications Medication Instructions Recorded Confirmed clopidogrel [Plavix] 75 mg PO DAILY 12/01/20 03/13/21 lisinopril 20 mg PO DAILY 12/01/20 03/13/21 amlodipine 5 mg PO DAILY 12/20/20 03/13/21 aspirin 81 mg PO DAILY 12/20/20 03/13/21 metoclopramide HCl 5 mg PO TIDWM 12/20/20 03/13/21 Basaglar KwikPen U-100 Insulin 10 unit SUBCUT HS 01/26/21 03/13/21 Thera-M 1 tablet PO DAILY 03/13/21 03/13/21 carvedilol 25 mg PO BID 03/13/21 03/16/21 furosemide 80 mg PO BID 03/13/21 03/13/21 sevelamer carbonate 1,600 mg PO TIDWM 03/13/21 03/13/21 Allergies Allergy/AdvReac Type Severity Reaction Status Date / Time No Known Drug Allergies Allergy Unknown Verified 03/22/21 17:04 Review of Systems Review of Systems: All systems reviewed & are unremarkable except as noted in HPI and below Constitutional: Constitutional: Denies body ache(s), Denies chills, Denies excessive sweating, Denies fatigue, Denies fever(s), Denies headache(s), Denies lethargy, Denies malaise, Denies weakness and Denies weight loss Eyes: Eyes: Denies blurry vision, Denies change in vision and Denies loss of vision ENT: Denies dizziness, Denies ear discharge, Denies headache(s), Denies lip swelling, Denies epistaxis, Denies nasal congestion, Denies neck pain, Denies throat swelling and Denies tongue swelling Cardiovascular: Cardiovascular: Denies chest pain, Denies chest pain at rest, Denies chest pain with activity, Denies diaphoresis, Denies rapid heart rate, Denies edema, Denies irregular heart rhythm, Denies lightheadedness and Denies palpitations Respiratory: Respiratory: Denies chest congestion, Denies cough and Denies hemoptysis Gastrointestinal: Gastrointestinal: Denies abdominal pain, Denies melena, Denies hematochezia and Denies hematemesis Musculoskeletal: Musculoskeletal: Denies abnormal gait, Denies deformity, Denies joint swelling, Denies limited range of motion, Denies neck pain and Denies numbness Neurologic: Denies Abnormal speech present, Denies abnormal gait, Denies confusion, Denies dizziness, Denies headache(s), Denies focal weakness, Denies loss of vision, Denies numbness, Denies Other visual disturbances, Denies Sensory deficit (Neuro) and Denies weakness Psychiatric: Psychiatric: Denies confusion, Denies depression, Denies auditory hallucinations, Denies homicidal ideation and Denies suicidal ideation Endocrine: Endocrine: Denies cold intolerance, Denies excessive sweating, Denies fatigue, Denies heat intolerance and Denies palpitations Hematologic/Lymphatic: Hematologic/Lymphatic: Denies easy bleeding and Denies easy bruising Allergic/Immunologic: Allergic/Immunologic: Denies lip swelling, Denies throat swelling and Denies tongue swelling PMFSH Past Medical History Medical History Anasarca CAD (coronary artery disease) RCA stent placed in August 2020 Chiari I malformation Chronic osteomyelitis Status post toe amputations CVA (cerebral vascular accident) Small old lacunar infarct at the head of the right caudate nucleus. Erythropoietin deficiency anemia Esophagitis determined by endoscopy EGD December 2019 ESRD (end stage
[2021-03-22 16:42] LABS: Alanine Aminotransferase 47 U/L (4-35)
[2021-03-22] MEDS: ONDANSETRON INJ 4 MG/2 ML VIAL IV PUSH (16:47)
[2021-03-22] MEDS: LACTATED RINGERS 1,000 ML 100 ML IV CONT (16:47)
--- NOTE | 2021-03-22 16:48 | PC.NURSE ---
Short of breath with exertion, SpO2 dropped to 78-80%. Readjusted in bed with head elevated, SpO2 up to 88%, oxygen applied at 2l/min NC. notified.
[2021-03-22 17:00] LABS: Lactic Acid Reflex 4.7 mmol/L (0.7-2.1)
[2021-03-22 17:05] LABS: INR 1.1; Partial Thromboplastin Time 31.7 SECONDS (22.3-36.8); Prothrombin Time 13.7 Seconds (11.1-14.7)
[2021-03-22 17:08] LABS: D Dimer 2.25 ug/mL (<0.48)
[2021-03-22 17:14] LABS: NT Pro B Type Natriuretic Pept > 35000 pg/mL (5-100)
[2021-03-22 17:25] LABS: Base Excess ABG 9.6 mEq/l (+/-2.0); Carboxyhemoglobin 1.6 % THb (0-2.0); Fractional Inspired Oxygen 28 %; HCO3 ABG 34.1 mEq/l (22.0-26.0); Methemoglobin ABG 0.3 %THb (0-1.5); Oxygen Content ABG 15.3 %vol (16.0-22.0); Oxygen Saturation ABG 95.6 % (95.0-100.0); Oxyhemoglobin 92.7 % THb (90.0-100.0); PO2 ABG 73.4 mmHg (80.0-100.0); PO2 FiO2 Ratio Arterial Blood 2.62 %; Reduced Hemoglobin 5.4 %THb (0-5.0); Site Drawn RIGHT BRACHIAL; Total Hemoglobin 11.7 g/dL (12.0-18.0); pH ABG 7.488 (7.350-7.450)
[2021-03-22 17:26] LABS: Device NASAL CANNULA
[2021-03-22] MEDS: MORPHINE SULFATE (*CRX) 2 MG/ML INJ IV PUSH (17:55)
[2021-03-22 19:48] LABS: Reflex Lactic Acid Yes or No Add Lactic
[2021-03-22 20:21] LABS: Lactic Acid 1.8 mmol/L (0.7-2.1)
[2021-03-22] MEDS: INSULIN HUMAN REGULAR (*BKC) 100 UNITS/ML 10 UNITS IV PUSH (21:27)
[2021-03-22] MEDS: FUROSEMIDE INJ 40 MG/4 ML VIAL IV PUSH (21:35)
[2021-03-22 22:33] LABS: Glucose Point of Care 337 mg/dl (65-105)
[2021-03-23] VITALS (27 sets, daily range): BP systolic 95–134; BP diastolic 45–59; PULSE 63–103; RESP 16–24; TEMP 36–36.8; O2SAT 95–100; BMI 25.5
--- NOTE | 2021-03-23 00:04 | ADMGEN ---
This patient, Pamela Bhat, was admitted to 2 Medical Room 259-01. Patient/family oriented to hospital policies and general routines including ID bracelet, bed and alarms, visiting hours, pain management, procedures, bathroom and other care routines, personal items, smoking policy, room service/diet, and visiting hours. Information on how to activate the Rapid Response Team has been discussed. Patient/Family are encouraged to report perceived risks to care and to ask questions if they do not understand what they are told or what they should do.
[2021-03-23] MEDS: ONDANSETRON INJ 4 MG/2 ML VIAL IV PUSH ×3 (00:46→21:41)
--- NOTE | 2021-03-23 01:56 | PM.IMHP ---
H&P: HPI History of Present Illness Date/Time: 03/23/21 01:56 Chief Complaint: nausea vomiting diarrhea Narrative: Patient is a 45-year-old female who presents to the ED today with complaint of nausea vomiting and diarrhea that started yesterday. She states that started at night all of a sudden. She had several episodes of diarrhea which is watery loose nonbloody. She also has several episodes of nausea vomiting last diarrhea and vomiting was in the ER. She recently had her gallbladder surgery about a week ago and was discharged on 03/17/2021. She denies any sick contacts or eating unusual food. She reports abdomen is sore from all the vomiting and diarrhea that she has been having. She denies any fever chills. She has a history of end-stage renal disease on hemodialysis Friday, insulin-dependent diabetes hypertension systolic heart failure with reduced ejection fraction from November 2020 with at 30-35% chronic anemia coronary artery disease with recent heart stent in August of 2020 and current smoker. Review of Systems Review of Systems: - CONSTITUTIONAL: Denies weight loss, fever and chills. - HEENT: Denies changes in vision and hearing - RESPIRATORY: reports SOB and cough. - CV: Denies palpitations and CP. - GI: reports abdominal pain, nausea, vomiting and diarrhea. - : Denies dysuria and urinary frequency. - MSK: Denies myalgia and joint pain. - SKIN: Denies rash and pruritus. - NEUROLOGICAL: Denies headache and syncope. - PSYCHIATRIC: Denies recent changes in mood. Denies anxiety and depression. All systems reviewed & are unremarkable except as noted in HPI and below Constitutional: Constitutional: Reports fatigue and Reports weakness Neurologic: Reports weakness Endocrine: Endocrine: Reports fatigue PMFSH Past Medical History Medical History Anasarca CAD (coronary artery disease) RCA stent placed in August 2020 Chiari I malformation Chronic osteomyelitis Status post toe amputations CVA (cerebral vascular accident) Small old lacunar infarct at the head of the right caudate nucleus. Erythropoietin deficiency anemia Esophagitis determined by endoscopy EGD December 2019 ESRD (end stage renal disease) on dialysis On hemodialysis since June 2019 Gastroparesis due to DM Hyperlipidemia Papilledema Renal osteodystrophy Surgical History Surgical History Amputation of toe Two on the left AV fistula Left forearm H/O tubal ligation During one of her deliveries. History of section, classical X2 History of tonsillectomy and adenoidectomy Hx of myringotomy S/P dialysis catheter insertion Right internal jugular June 2019 status post removal September 2019 S/P lateral meniscal repair S/P PICC central line placement Now removed S/P rotator cuff repair Family History Family History Other Adopted Social History Social History Social History: She has 2 children and she lives with her of 28 years. She is on disability. Patient stated that she is down to 1/4pack cigarettes a day. She has smoked up to a pack of cigarettes per day since she was 16 years old. She denies any heavy alcohol use or illicit substance use. Primary care physician: Dr. Christiano Ochoa Property Field Adjuster: Dr. Forbes Code status: Full code Healthcare power of time study engineer: Smoking packs per day: 0.5 Smoking cigarettes per day: 10.0 Years smoked: 25 Smoking pack-years: 12.50 Smoking status: Current every day smoker Second hand tobacco smoke exposure: Yes Alcohol intake: never Substance use: never Substance use type: does not use Gender identity (if verbalized by the patient): Female Sexual Orientation (if Verbalized by the Patient
[2021-03-23] MEDS: INSULIN GLARGINE (*BKC) 100 UNITS/ML 10 UNITS SUB-Q ×2 (02:29→21:42)
[2021-03-23 02:35] LABS: Glucose Point of Care 268 mg/dl (65-105)
[2021-03-23 03:25] LABS: Basophils Percent Auto 0.4 % (0.2-1.2); Eosinophils Absolute Auto 0.1 K/mm3 (0-0.3); Eosinophils Percent Auto 0.5 % (0-4.4); Hematocrit 32.7 % (37.0-47.0); Hemoglobin 10.5 g/dL (12.0-15.0); Immature Granulocyte Absolute 0.05 K/mm3 (0.00-0.031); Immature Granulocyte Percent A 0.5 % (0-0.5); Lymphocytes Absolute Auto 1.62 K/mm3 (0.9-3.2); Lymphocytes Percent Auto 16.6 % (18.3-44.2); Mean Corpuscular HGB Conc 32.1 g/dl (32-36); Mean Corpuscular Hemoglobin 32.1 pg (26-34); Mean Platelet Volume 10.1 fl (7.4-10.4); Monocytes Absolute Auto 0.6 K/mm3 (0.1-0.6); Monocytes Percent Auto 6.2 % (2.6-8.5); Neutrophils Absolute Auto 7.4 K/mm3 (1.3-6.7); Neutrophils Percent Auto 75.8 % (45.5-73.1); Platelet Count Result 227 k/mm3 (150-375); Red Blood Count 3.27 M/mm3 (4.2-5.4); Red Cell Distribution Width 13.1 % (11.5-14.5); White Blood Count 9.8 K/mm3 (4.5-10.0)
[2021-03-23] MEDS: metroNIDAZOLE 500 MG/ISO 100ML 500 MG/100 ML BAG 100 MG IVPB ×3 (03:36→23:47)
[2021-03-23 03:38] LABS: Alanine Aminotransferase 29 U/L (4-35); Albumin Level 3.9 g/dL (3.5-5.1); Alkaline Phosphatase 120 U/L (38-126); Aspartate Amino Transferase 38 U/L (14-36); Bilirubin,Total 0.5 mg/dL (0.2-1.3); Blood Urea Nitrogen 46 mg/dL (7-17); Calcium 8.2 mg/dL (8.4-10.2); Carbon Dioxide > 40 mmol/L (22-30); Chloride 84 mmol/L (98-107); Estimated CRCL calculation 9 ml/min; Estimated Glomerular Filt Rate 7; Glucose 286 mg/dL (65-110); Sodium 137 mmol/L (137-145)
[2021-03-23 04:19] LABS: Hepatitis B Surface Antigen Negative (Negative)
[2021-03-23 04:25] LABS: HAV RESULT Negative (Negative); Hepatitis B Core IgM Result Negative (Negative)
--- NOTE | 2021-03-23 04:26 | ECG_ITS ---
Measurements Intervals [place] Rate: 88 P: 69 NE: 189 QRS: 45 QRSD: 120 T: 2 QT: 406 QTc: 491 Interpretive Statements SINUS RHYTHM POSSIBLE LEFT ATRIAL ENLARGEMENT INTRAVENTRICULAR CONDUCTION DELAY DELAYED PRECORDIAL R/S TRANSITION BORDERLINE ST-T WAVE ABNORMALITY- INF/LAT LEADS BASELINE ARTIFACT- V5-V6 BORDERLINE ECG Electronically Signed On 03-23-2021 6:07:59 CDT by Misael Ahmadi D.O.
[2021-03-23] MEDS: ASPIRIN 81 MG ENTERIC TABLET PO (04:44)
[2021-03-23] MEDS: CLOPIDOGREL BISULFATE 75 MG TABLET PO (04:45)
[2021-03-23] MEDS: HEPARIN SOD/D5W 100 UNITS/ML 25,000 UNITS/250 ML BAG 7 UNITS IV CONT (04:51)
[2021-03-23 05:02] LABS: Add Urine Microscopic? YES; Appearance Urine Cloudy (Clear); Bilirubin Urine Negative (Negative); Blood Urine Negative (Negative); Color Urine Yellow (Yellow); Glucose Urine UA 3+ mg/dL (Negative); Ketones Urine Trace mg/dL (Negative); Leukocyte Esterase Ur Negative LEU/UL (Negative); Mucus Urine Rare /lpf; Nitrate Urine Negative (Negative); Protein Urine 3+ mg/dL (Negative); Squamous Epithelial Cell Urine Many /hpf (Few); Urobilinogen Urine Negative mg/dL (<2.0); WBC Urine 0-3 /hpf
--- NOTE | 2021-03-23 05:38 | PC.NURSE ---
Gave report to Corrine in IMU at 05:30 03/23/2021.
[2021-03-23 05:49] LABS: Hepatitis B Surface Anti Res Positive; Hepatitis C Virus Antibody Negative (Negative)
--- NOTE | 2021-03-23 07:13 | PC.NURSE ---
This patient, Pamela Armando Santodavide, was received from [[id number] ] on 03/23/21 at 0530. Patient/family oriented to unit policies and routines
[2021-03-23] MEDS: carvediloL 25 MG TABLET PO ×2 (08:32→17:12)
[2021-03-23] MEDS: SEVELAMER CARBONATE 800 MG TABLET PO ×3 (08:32→17:12)
[2021-03-23] MEDS: lisinopriL 20 MG TABLET PO (08:32)
[2021-03-23] MEDS: SACCHAROMYCES BOULARDII 250 MG CAPSULE PO ×2 (08:32→17:12)
[2021-03-23] MEDS: THERAPEUTIC MULTIVITAMINS/MINERALS TAB (*BKC) 1 TABLET PO (08:32)
[2021-03-23] MEDS: METOCLOPRAMIDE HCL 5 MG TABLET PO (08:33)
[2021-03-23] MEDS: amLODIPine BESYLATE 5 MG TABLET PO (08:33)
[2021-03-23] MEDS: ONDANSETRON HCL ODT 4 MG TABLET PO (08:33)
[2021-03-23] MEDS: FUROSEMIDE 80 MG TABLET PO ×2 (08:33→17:13)
--- NOTE | 2021-03-23 08:42 | PM.CNCAR ---
Assessment and Plan Additional Plan This is a 45-year-old lady with: Several days of diarrhea and nausea prompting admission to the hospital she is about 2 weeks postop laparoscopic cholecystectomy. Without any cardiac symptoms troponin levels were sampled and have elevated as mentioned above. She has a history of left ventricular systolic dysfunction out of proportion to her single-vessel coronary disease which was revascularized percutaneously down at [place] about 6 months ago. At this time my recommendation is to resume her standard guideline directed medical therapy as is outlined above. It looks like according to the orders that has already been done. In the absence of any symptoms or significant ECG changes I would not at this time make the decision to bring this patient for follow-up angiography here at [place] [facility]. I will however follow her with you while she is in the hospital. Edward Potter MD [facility] History of Present Illness History of Present Illness Consult date/time: 03/23/21 08:42 Reason For Visit: Pulmonary Edema, ESRD needing dialysis Narrative: This is a 45-year-old lady that I am seeing this morning at the request of the hospitalist staff because of a rise in her cardiac troponin levels that were noted on lab data. The patient is unknown to me prior to this consultation. She came to the hospital yesterday late in the evening with symptoms of diarrhea abdominal discomfort and nausea this started on Friday of this week. The patient states that her vomitus was clear liquid there was not bilious and not bloody or coffee grounds. Her diarrhea was brown and watery in character. She recently had laparoscopic cholecystectomy performed at this hospital she presented here with abdominal discomfort and was felt to have cholecystitis and had this operation couple of weeks ago. She recovered satisfactorily he was discharged home according to what I see in the records. The patient apparently has a somewhat complicated medical history she has a history of diabetes and end-stage renal disease has been on dialysis and really undergoes dialysis every Friday and Friday. She states when she was in the hospital at [place] where she normally receives her care in August of this year she was found to have a weakened heart. She can not really recall exactly why she was in the hospital at that time. Cardiology saw her at [place] and performed a catheterization apparently demonstrating evidence of single-vessel coronary disease with stenosis in the RCA. She had LV dysfunction however that was global and out of proportion to her coronary disease. She was treated medically for her LV dysfunction and underwent PCI with stenting of the right coronary artery that was done on August 31 of this year. She also carries the diagnosis of peripheral arterial disease and has had a prior left toe amputation because of infected wound. She has in the last couple of days with the diarrhea not reported any sense of chest pain pressure or heaviness she is not experiencing significant dyspnea orthopnea PND or accumulating edema. Her high lift operator at [place] has her on a regimen of aspirin and clopidogrel along with carvedilol and lisinopril. The notes indicate an attempt to treat her with spironolactone in the past resulted in unacceptable hyperkalemia. Following admission here yesterday troponin levels were done and they have risen from 0.15-4.3. This has prompted consult us to see her today. The patient had not taken her medication for the last couple of days starting on Friday of this week when she began to experience diarrhea and nausea. Review of Systems Constitutional: Constitutional: Reports fatigue Eyes: Eyes: Reports no additional eye complaints ENT: Reports system reviewed and no additional complaints, except as documented Cardiovascular: Cardiovascular: Reports no additional cardiovascular complaints Respiratory: Respiratory: Reports no addit
[2021-03-23 09:06] LABS: Glucose Point of Care 210 mg/dl (65-105)
[2021-03-23] MEDS: INSULIN ASPART (*BKC) 100 UNITS/ML 7 UNITS SUB-Q (09:10)
--- NOTE | 2021-03-23 09:28 | PM.CNNEP ---
Assessment and Plan Assessment and plan (1) End stage renal disease: Code(s): N18.6 - End stage renal disease Status: Chronic Additional Plan End-stage renal disease Type diabetes mellitus with exacerbation of gastroparesis Acute on chronic systolic heart failure, elevated troponin levels Anemia chronic kidney disease Secondary hyperparathyroidism With nausea and vomiting contrast contraction alkalosis although there are imaging manifestations of congestive heart failure Plan: -dialysis -ultrafilter to target rate -patient needs Cardio evaluation for the elevated troponin -follow-up of ESRD and related needs -dialysis orders entered History of Present Illness Reason for Consult Consult date: 03/23/21 Reason for consult: end stage renal disease and Other (Acute on chronic systolic heart failure) Requesting physician: Man Gusamn MD Chief Complaint Chief complaint: Pulmonary Edema, ESRD needing dialysis History of Present Illness Narrative: 45-year-old white female type 1 diabetic with nephropathy, gastropathy, gastroparesis, recurring nausea and vomiting events especially related with hyperglycemia. She has ESRD and is on a Friday, Friday, Friday dialysis schedule. She had the last dialysis on Friday. She did get down to her target weight. She states that the evenings the patient at about 1 9 woke up from sleep with nausea and vomiting and also ongoing progressive shortness of breath. Presented to the emergency room yesterday. CT scan did not show pulmonary embolism but did show that she had CHF changes. In the past ejection fraction was reported to be 24%. She has chronic systolic heart failure with RCA disease. He does feel that her RCA disease and did not correlate with the severity of her LV dysfunction. She had high-grade mid RCA disease status post PCI in August of 2020. She did come in with an elevated troponin level. She has had an amputation of the left toe due to an infection from peripheral arterial disease. Intended dialysis she comes for her treatments. Tolerated fluid removal. However she does run high phosphorus levels. She also has had many hypoglycemic events. She has episodes of diabetic gastroparesis with incessant nausea and vomiting. She is having the same problem. Has some epigastric discomfort. She denies any chest pressure, or chest pain. She did not get chest pain and the event of shortness of breath at midnight the prior night. We estimate ongoing renal failure needs. Review of Systems Review of Systems: All systems reviewed & are unremarkable except as noted in HPI and below (History of presenting illness) [facility] Past Medical History Medical History Anasarca CAD (coronary artery disease) RCA stent placed in August 2020 Chiari I malformation Chronic osteomyelitis Status post toe amputations CVA (cerebral vascular accident) Small old lacunar infarct at the head of the right caudate nucleus. Erythropoietin deficiency anemia Esophagitis determined by endoscopy EGD December 2019 ESRD (end stage renal disease) on dialysis On hemodialysis since June 2019 Gastroparesis due to DM Hyperlipidemia Papilledema Renal osteodystrophy Surgical History Surgical History Amputation of toe Two on the left AV fistula Left forearm H/O tubal ligation During one of her deliveries. History of section, classical X2 History of tonsillectomy and adenoidectomy Hx of myringotomy S/P dialysis catheter insertion Right internal jugular June 2019 status post removal September 2019 S/P lateral meniscal repair S/P PICC central line placement Now removed S/P rotator cuff repair Family History Family History Other Adopted Social History Social History (Reviewed 03/22/21 @ 17:03 by Stefan Dunbar
--- NOTE | 2021-03-23 09:52 | PM.IMPN ---
Progress Note: A&P Assessment and Plan (1) Chronic systolic heart failure: Code(s): I50.22 - Chronic systolic (congestive) heart failure Status: Chronic Assessment and Plan: - HFrEF of 30%-3% as of 01/26/21. - Refuses to use a life vest. - Continue diuresis as tolerated. - Continue dialysis as ordered by Nephrology. - No new orders today from Cardiology consult. - Continue Accurate I&O - Continue Daily weights. (2) Pulmonary edema: Qualifiers: Chronicity: acute Qualified Code(s): J81.0 - Acute pulmonary edema Code(s): J81.1 - Chronic pulmonary edema Status: Acute Assessment and Plan: - Dialysis today for Ultrafiltration - Accurate I&O - Daily weights - Re-evaluate respiratory status (3) ESRD needing dialysis: Code(s): N18.6 - End stage renal disease; Z99.2 - Dependence on renal dialysis Status: Acute Assessment and Plan: - Pt. with left sided graft with positive Bruit and thrill. - Dialysis per Nephrology orders. -- normal schedule. (4) Nausea & vomiting: Qualifiers: Vomiting Intractability: non-intractable Vomiting type: unspecified Qualified Code(s): R11.2 - Nausea with vomiting, unspecified Code(s): R11.2 - Nausea with vomiting, unspecified Status: Acute Assessment and Plan: - Intractable s/p Lap Cholecystectomy. - CT of abdomen and pelvis scheduled for today. - Will Consult GI for recommendations for management and continued care since surgery recent, and nothing we are giving patient seems to be working. - Check lipase to rule out secondary Pancreatitis. - Pt. has history of Gastroparesis in the past and is taking Reglan 5 mg po with meals. - Continue Zofran and prn Compazine along with the scheduled Reglan with meals. - Reassess rehydration. - Follow labs and trend vitals. (5) Diarrhea: Qualifiers: Diarrhea type: unspecified type Qualified Code(s): R19.7 - Diarrhea, unspecified Code(s): R19.7 - Diarrhea, unspecified Status: Acute Assessment and Plan: - Continue Flagyl as coverage for possibly C-diff. - Stool studies pending. - GI consult ordered. Question of Questran appropriate? Appreciate their recs. (6) Elevated troponin: Code(s): R77.8 - Other specified abnormalities of plasma proteins Status: Acute Assessment and Plan: - Increasing Troponin noted. - Cardiology consulted and did not request anything be done as per in HPI. - Monitor trend with Trop's, daily. - EKG's are unchanged. - Trend labs and vitals (7) Severe hyperglycemia due to diabetes mellitus: Code(s): E11.65 - Type 2 diabetes mellitus with hyperglycemia Status: Acute Assessment and Plan: - Continue SSI, Lantus and accuchecks - Continue Diabetic/Renal diet. - Continue Diabetic diet. (8) Hypertension: Qualifiers: Hypertension type: unspecified Qualified Code(s): I10 - Essential (primary) hypertension Code(s): I10 - Essential (primary) hypertension Status: Chronic Assessment and Plan: - Continue Amlodipine 5 mg po daily - Continue Lisinopril 20 mg po daily - Monitor for control Currently well controlled with a pressure of 129/54.. Time Spent With Patient Time with patient: 25 - 35 minutes Subjective Date/time seen: 03/23/21 09:52 This patient was examined at the bedside this morning and appeared acutely ill with her continued complaints of having N/V/D status post Laparoscopic Cholecystectomy two weeks ago approximately. She continues to have persistent N/V/D without any melena, hematochezia or hemetemesis. In addition, she feels increasingly fatigued and weak. She denies any abdominal pain, and does not endorse any CP or epigastric pain despite her elevation of her Troponin. Due to this troponin rise and increase, she has been evaluated by Cardiology, Dr. Potter, and no additional recommendations are made at this time. The pt.
[2021-03-23] MEDS: PROCHLORPERAZINE EDISYLATE 10 MG/2 ML VIAL 5 MG IV PUSH ×2 (10:09→17:11)
[2021-03-23 11:14] LABS: Partial Thromboplastin Time 33.7 SECONDS (22.3-36.8)
[2021-03-23 11:16] LABS: Lipase 69 U/L (23-300)
[2021-03-23] MEDS: HEPARIN SODIUM 5,000 UNITS/ML VIAL 4000 UNITS IV PUSH ×2 (11:38→18:30)
[2021-03-23 14:49] LABS: Glucose Point of Care 83 mg/dl (65-105)
[2021-03-23 18:17] LABS: Partial Thromboplastin Time 28.3 SECONDS (22.3-36.8)
--- NOTE | 2021-03-23 18:40 | PC.NURSE ---
This patient, Pamela Bhat, was received from ICU 1 on 03/23/21 at 1746. Patient oriented to unit policies and routines. Report received from Claire.
[2021-03-23 20:05] LABS: Glucose Point of Care 293 mg/dl (65-105)
[2021-03-24] VITALS (22 sets, daily range): BP systolic 94–119; BP diastolic 41–54; PULSE 61–68; RESP 14–18; TEMP 36.4–37.7; O2SAT 94–100
[2021-03-24 00:03] LABS: Partial Thromboplastin Time 172.1 SECONDS (22.3-36.8)
[2021-03-24] MEDS: metroNIDAZOLE 500 MG/ISO 100ML 500 MG/100 ML BAG 100 MG IVPB ×3 (06:22→23:03)
--- NOTE | 2021-03-24 07:24 | PM.IMPN ---
Progress Note: A&P Assessment and Plan (1) Chronic systolic heart failure: Code(s): I50.22 - Chronic systolic (congestive) heart failure Status: Chronic Assessment and Plan: - HFrEF of 30%-3% as of 01/26/21. - Refuses to use a life vest. - Continue diuresis as tolerated. - Continue dialysis as ordered by Nephrology. - No new orders today from Cardiology consult. - Continue Accurate I&O - Continue Daily weights. (2) Pulmonary edema: Qualifiers: Chronicity: acute Qualified Code(s): J81.0 - Acute pulmonary edema Code(s): J81.1 - Chronic pulmonary edema Status: Acute Assessment and Plan: - Dialysis today for Ultrafiltration - Accurate I&O - Daily weights - Re-evaluate respiratory status (3) ESRD needing dialysis: Code(s): N18.6 - End stage renal disease; Z99.2 - Dependence on renal dialysis Status: Acute Assessment and Plan: - Pt. with left sided graft with positive Bruit and thrill. - Dialysis per Nephrology orders. -- normal schedule. (4) Nausea & vomiting: Qualifiers: Vomiting Intractability: non-intractable Vomiting type: unspecified Qualified Code(s): R11.2 - Nausea with vomiting, unspecified Code(s): R11.2 - Nausea with vomiting, unspecified Status: Acute Assessment and Plan: - Intractable s/p Lap Cholecystectomy. - CT of abdomen and pelvis scheduled for today. - Will Consult GI for recommendations for management and continued care since surgery recent, and nothing we are giving patient seems to be working. - Check lipase to rule out secondary Pancreatitis. - Pt. has history of Gastroparesis in the past and is taking Reglan 5 mg po with meals. - Continue Zofran and prn Compazine along with the scheduled Reglan with meals. - Reassess rehydration. - Follow labs and trend vitals. (5) Diarrhea: Qualifiers: Diarrhea type: unspecified type Qualified Code(s): R19.7 - Diarrhea, unspecified Code(s): R19.7 - Diarrhea, unspecified Status: Acute Assessment and Plan: - Continue Flagyl as coverage for possibly C-diff. - Stool studies pending. - GI consult ordered. Question of Questran appropriate? Appreciate their recs. (6) Elevated troponin: Code(s): R77.8 - Other specified abnormalities of plasma proteins Status: Acute Assessment and Plan: - Increasing Troponin noted. - Cardiology consulted and did not request anything be done as per in HPI. - Monitor trend with Trop's, daily. - EKG's are unchanged. - Trend labs and vitals (7) Severe hyperglycemia due to diabetes mellitus: Code(s): E11.65 - Type 2 diabetes mellitus with hyperglycemia Status: Acute Assessment and Plan: - Continue SSI, Lantus and accuchecks - Continue Diabetic/Renal diet. - Continue Diabetic diet. (8) Hypertension: Qualifiers: Hypertension type: unspecified Qualified Code(s): I10 - Essential (primary) hypertension Code(s): I10 - Essential (primary) hypertension Status: Chronic Assessment and Plan: - Continue Amlodipine 5 mg po daily - Continue Lisinopril 20 mg po daily - Monitor for control Currently well controlled with a pressure of 129/54.. Additional Plan # Abdominal pain nausea vomiting diarrhea likely gastroenteritis with recent antibiotic C diff his possibility as well. Will place her on Flagyl for now. will get CT abdomen and pelvis. Stool studies. Recent history of acute cholecystitis status post cholecystectomy recent an antibiotic will check C diff # [id number] pulmonary edema per CTA however not clinically in pulmonary edema /CHF. Dialysis as planned in a.m. # History of gastroparesis recurrent nausea vomiting episodes in the past. Continue Reglan # Recent cholecystitis status post cholecystectomy also had cecal diverticulitis will check CT abdomen to further evaluate # elevated troponin: history of troponin elevation the
[2021-03-24 07:34] LABS: Basophils Absolute Auto 0.1 K/mm3 (0.0-0.1); Basophils Percent Auto 0.6 % (0.2-1.2); Eosinophils Absolute Auto 0.2 K/mm3 (0-0.3); Eosinophils Percent Auto 2.5 % (0-4.4); Hematocrit 34.1 % (37.0-47.0); Hemoglobin 10.3 g/dL (12.0-15.0); Immature Granulocyte Absolute 0.04 K/mm3 (0.00-0.031); Immature Granulocyte Percent A 0.4 % (0-0.5); Lymphocytes Absolute Auto 2.19 K/mm3 (0.9-3.2); Lymphocytes Percent Auto 22.9 % (18.3-44.2); Mean Corpuscular HGB Conc 30.2 g/dl (32-36); Mean Corpuscular Volume 105.9 fl (80-100); Mean Platelet Volume 10.4 fl (7.4-10.4); Monocytes Absolute Auto 0.6 K/mm3 (0.1-0.6); Monocytes Percent Auto 6.3 % (2.6-8.5); Neutrophils Absolute Auto 6.4 K/mm3 (1.3-6.7); Neutrophils Percent Auto 67.3 % (45.5-73.1); Platelet Count Result 193 k/mm3 (150-375); Red Blood Count 3.22 M/mm3 (4.2-5.4); Red Cell Distribution Width 13.3 % (11.5-14.5); White Blood Count 9.6 K/mm3 (4.5-10.0)
[2021-03-24] MEDS: SEVELAMER CARBONATE 800 MG TABLET PO ×3 (08:11→17:10)
[2021-03-24] MEDS: carvediloL 25 MG TABLET PO ×2 (08:11→17:09)
[2021-03-24] MEDS: ASPIRIN 81 MG ENTERIC TABLET PO (08:12)
[2021-03-24] MEDS: CLOPIDOGREL BISULFATE 75 MG TABLET PO (08:12)
[2021-03-24] MEDS: amLODIPine BESYLATE 5 MG TABLET PO (08:12)
[2021-03-24] MEDS: FUROSEMIDE 80 MG TABLET PO ×2 (08:12→17:09)
[2021-03-24] MEDS: lisinopriL 20 MG TABLET PO (08:12)
[2021-03-24] MEDS: THERAPEUTIC MULTIVITAMINS/MINERALS TAB (*BKC) 1 TABLET PO (08:12)
[2021-03-24] MEDS: SACCHAROMYCES BOULARDII 250 MG CAPSULE PO ×2 (08:13→17:10)
[2021-03-24] MEDS: ACETAMINOPHEN 325 MG TABLET 650 MG PO ×4 (08:16→23:58)
--- NOTE | 2021-03-24 08:24 | ECG_ITS ---
Measurements Intervals [place] Rate: 67 P: 68 GA: 184 QRS: 36 QRSD: 119 T: 26 QT: 431 QTc: 457 Interpretive Statements SINUS RHYTHM POSSIBLE LEFT ATRIAL ENLARGEMENT INTRAVENTRICULAR CONDUCTION DELAY BORDERLINE ST-T WAVE ABNORMALITY- DIFFUSE LEADS BORDERLINE ECG Electronically Signed On 03-24-2021 14:14:50 CDT by Misael Ahmadi D.O.
[2021-03-24] MEDS: HEPARIN SODIUM 5,000 UNITS/ML VIAL 4000 UNITS IV PUSH ×2 (08:39→23:56)
[2021-03-24] MEDS: MORPHINE SULFATE (*CRX) 2 MG/ML INJ IV PUSH (08:45)
[2021-03-24 08:50] LABS: Glucose Point of Care 167 mg/dl (65-105)
[2021-03-24] MEDS: INSULIN ASPART (*BKC) 100 UNITS/ML 7 UNITS SUB-Q ×2 (09:12→12:30)
--- NOTE | 2021-03-24 11:43 | PM.PNCARD ---
Progress Note: A&P Assessment and Plan (1) CAD (coronary artery disease): Code(s): I25.10 - Atherosclerotic heart disease of [place] coronary artery without angina pectoris Status: Acute Assessment and Plan: Recent PCI to the RCA. Unfortunately has had recurrent chest pain. Will initiate nitroglycerin paste 1/2 inch q.6 hours. Continue IV heparin. Given her recurrent chest pain earlier today with some lateral ST T-wave abnormality, she may need repeat coronary angiogram on Friday. Will continue to monitor. (2) Elevated troponin: Code(s): R79.89 - Other specified abnormal findings of blood chemistry Status: Acute Assessment and Plan: Representing a non ST-elevation myocardial infarction. (3) Chronic systolic heart failure: Code(s): I50.22 - Chronic systolic (congestive) heart failure Status: Chronic Assessment and Plan: Continue current regimen (4) End stage renal disease on dialysis: Code(s): N18.6 - End stage renal disease; Z99.2 - Dependence on renal dialysis Status: Chronic Subjective Date/time seen: 03/24/21 11:43 Interval history: 45-year-old admitted for nausea vomiting and elevated troponin Date of service 03/24/2021: Had more chest pain this morning but currently pain free. No syncope or shortness of breath. Review of Systems Constitutional: Constitutional: Reports fatigue Eyes: Eyes: Reports no additional eye complaints ENT: Reports system reviewed and no additional complaints, except as documented Cardiovascular: Cardiovascular: Reports no additional cardiovascular complaints Respiratory: Respiratory: Reports no additional respiratory complaints Gastrointestinal: Gastrointestinal: Reports as per HPI, Reports diarrhea and Reports nausea Musculoskeletal: Musculoskeletal: Reports no additional musculoskeletal complaints Integumentary/Breasts: Skin/Breast: Reports system reviewed and no additional complaints, except as docu Neurologic: Reports system reviewed and no additional complaints, except as documented Endocrine: Endocrine: Reports no additional endocrine complaints and Reports fatigue Hematologic/Lymphatic: Hematologic/Lymphatic: Reports no additional hematologic/lymphatic complaints Allergic/Immunologic: Allergic/Immunologic: Reports no additional allergic/immunologic complaints Exam Const: General: comfortable and no acute distress Other: Well-developed well-nourished white female sitting on the bedside in IMU appears to be comfortable other than some mild residual nausea. HENMT: Mouth: Yes moist mucous membranes Eyes: Sclera: sclerae normal Pupils: Equal, round and reactive pupils present Neck: Neck: supple and no JVD Resp: Effort & Inspection: normal respiratory effort Auscultation: clear to auscultation bilaterally Cardio: Rate: regular rate Rhythm: regular rhythm Other: PMI is laterally displaced first and second heart sounds normal no audible murmur gallop GI: Auscultation: normal bowel sounds Skin: General skin exam: normal color Neuro: Cranial nerves: Yes Equal, round and reactive pupils present Cognition (Neuro): normal cognition Extrem: Other: Adequate perfusion, no edema Objective Data Vital Signs Vital Signs: Vital Signs - 24 hr 03/23/21 12:00 03/23/21 12:30 03/23/21 13:00 Temperature Pulse Rate 69 65 63 Respiratory Rate Blood Pressure 95/48 L 99/51 L 104/54 L Pulse Oximetry 03/23/21 13:45 03/23/21 14:00 03/23/21 14:15 Temperature 36.8 C 36.6 C Pulse Rate 66 67 68 Respiratory Rate 20 18 Blood Pressure 106/45 L 116/55 L 125/59 L Pulse Oximetry 96 03/23/21 14:45 03/23/21 16:00 03/23/21 18:00 Temperature Pulse Rate 70 87 Respiratory Rate Blood Pressure Pulse Oximetry 95 97 03/23/21 20:00 03/23/21 20:15 03/23/21 22:00 Temperature 36.1 C L Pulse Rate 63 66 64 Respiratory Rate 18 Blood Pressure 106/46 L Pulse Oximetry 100 97 09
[2021-03-24] MEDS: HEPARIN SOD/D5W 100 UNITS/ML 25,000 UNITS/250 ML BAG 11 UNITS IV CONT (12:25)
[2021-03-24] MEDS: NITROGLYCERIN OINTMENT 1 INCH DOSE 0.5 INCH TRANSDERM ×2 (12:27→23:06)
[2021-03-24 12:47] LABS: Glucose Point of Care 137 mg/dl (65-105)
[2021-03-24 16:10] LABS: Partial Thromboplastin Time > 200.0 SECONDS (22.3-36.8)
[2021-03-24 18:23] LABS: Glucose Point of Care 64 mg/dl (65-105)
[2021-03-24 20:24] LABS: Glucose Point of Care 172 mg/dl (65-105)
[2021-03-24] MEDS: INSULIN GLARGINE (*BKC) 100 UNITS/ML 10 UNITS SUB-Q (20:49)
--- NOTE | 2021-03-24 21:55 | CONS_ITS ---
DATE OF CONSULTATION: PRIMARY CARE PROVIDER: Christiano Ochoa MD. HISTORY OF PRESENT ILLNESS: 45-year-old female with history of coronary artery disease, status post stent; diabetes mellitus with history of gastroparesis; peripheral vascular disease, status post peripheral amputations; Budd-Chiari malformation; end-stage renal disease, on hemodialysis; chronic osteomyelitis; CVA; hyperlipidemia; choledocholithiasis, status post ERCP on March 12, [address] Guerrero; tubal ligation; x2; T and A; knee surgery; cholecystectomy; rotator cuff repair, who now presents with nausea, vomiting, and diarrhea since March 21. I am now asked to provide GI evaluation at the request of the hospitalist service. The patient is admitted and appears to be ruling in for non-STEMI. The patient currently denies abdominal pain and states that her nausea, vomiting, and diarrhea are all improved. REVIEW OF SYSTEMS: GI: She denies heartburn, dysphagia, loss of appetite or weight, previous diarrhea, constipation, hematochezia, or melena. She further denies fever, jaundice, scleral icterus, dark urine, light stools, itching, hot or cold intolerance. She has had chest pain, but has not been having shortness of breath, hematuria, dysuria, new cough, visual changes, easy bruising, tingling of the skin, bone pain, or tremors. No endocarditis risk factors. ALLERGIES: NO KNOWN DRUG ALLERGIES. MEDICATIONS: See list but includes baby aspirin and Plavix which have been held. SOCIAL HISTORY: Smoker, cessation recommended. Nondrinker. FAMILY HISTORY: Adopted. Colonoscopy in 2019 for GI bleed, showed diverticulosis. PHYSICAL EXAM: GENERAL: Well-developed, well-nourished female, lying in bed, no apparent distress. She has no lower extremity edema, jaundice, spider angioma or palmar erythema. HEENT: Skull is normocephalic, atraumatic. Pupils nonicteric. Oropharynx clear. NECK: Supple without thyromegaly. LUNGS: Clear to auscultation. HEART: Rate and rhythm regular. S1, S2 normal. ABDOMEN: Normoactive bowel sounds, soft, nontender, nonrigid, nondistended without hepatosplenomegaly or masses. RECTAL: Deferred. NEURO: Conscious and alert x3. LABS: On March 24, hemoglobin 10, hematocrit 34, white count 10, and MCV 106. Troponin T is 2.1. On March 23, troponin T 4.3, lipase 69, T bilirubin 0.5, alkaline phosphatase 120, AST 30, ALT is 29. On March 22, hemoglobin 13, hematocrit 39, MCV 102, white count of 12. INR is 1.1, T bilirubin 1.0, alkaline phosphatase 173, AST 42, ALT is 47. Hepatitis screen is negative. Glucose is 547. On December 21, 2020, B12 is 796, folate is 10. A CT scan done March 23, 2021 without contrast shows normal liver, and no significant GI pathology. ASSESSMENT/PLAN: 1. Nausea, vomiting, diarrhea in the setting of acute myocardial infarction in patient with diabetes mellitus and gastroparesis, likely multifactorial related to ND and out of control blood sugars. The patient's symptoms are not resolved. Continue supportive care. Hold on endoscopy. Consider hemoglobin A1c if not already done. Optimize diabetic treatment and Cardiology is following. We will take observational approach. 2. Chronic blood loss anemia, likely multifactorial and mostly related to renal disease. We would observe. The patient has macrocytosis and B12 and folate in November were normal. If further evaluation desired, consider hematology consult. 3. Abnormal alkaline phosphatase and transaminases, likely due to ND, is resolving. Observe. Thank you for allowing me to care for this patient. I have no further recommendations at this time. Please call if I can be of further assistance.
[2021-03-24 23:36] LABS: Partial Thromboplastin Time 47.5 SECONDS (22.3-36.8)
[2021-03-25] VITALS (16 sets, daily range): BP systolic 96–121; BP diastolic 44–53; PULSE 62–69; RESP 12–18; TEMP 36.3–37.5; O2SAT 97–100
[2021-03-25] MEDS: ONDANSETRON INJ 4 MG/2 ML VIAL IV PUSH ×3 (02:39→23:33)
[2021-03-25] MEDS: NITROGLYCERIN OINTMENT 1 INCH DOSE 0.5 INCH TRANSDERM ×4 (05:40→23:33)
[2021-03-25] MEDS: metroNIDAZOLE 500 MG/ISO 100ML 500 MG/100 ML BAG 100 MG IVPB ×3 (06:41→23:33)
[2021-03-25 06:46] LABS: Partial Thromboplastin Time 76.2 SECONDS (22.3-36.8)
[2021-03-25] MEDS: carvediloL 25 MG TABLET PO ×2 (08:16→17:00)
[2021-03-25] MEDS: SEVELAMER CARBONATE 800 MG TABLET PO ×3 (08:16→17:00)
[2021-03-25] MEDS: amLODIPine BESYLATE 5 MG TABLET PO (08:17)
[2021-03-25] MEDS: ASPIRIN 81 MG ENTERIC TABLET PO (08:17)
[2021-03-25] MEDS: CLOPIDOGREL BISULFATE 75 MG TABLET PO (08:17)
[2021-03-25] MEDS: FUROSEMIDE 80 MG TABLET PO ×2 (08:17→17:00)
[2021-03-25] MEDS: lisinopriL 20 MG TABLET PO (08:17)
[2021-03-25] MEDS: THERAPEUTIC MULTIVITAMINS/MINERALS TAB (*BKC) 1 TABLET PO (08:18)
[2021-03-25] MEDS: SACCHAROMYCES BOULARDII 250 MG CAPSULE PO ×2 (08:18→17:00)
[2021-03-25 08:54] LABS: Glucose Point of Care 139 mg/dl (65-105)
[2021-03-25] MEDS: INSULIN ASPART (*BKC) 100 UNITS/ML 7 UNITS SUB-Q ×2 (09:38→12:31)
--- NOTE | 2021-03-25 10:02 | PM.PNCARD ---
Progress Note: A&P Assessment and Plan (1) CAD (coronary artery disease): Code(s): I25.10 - Atherosclerotic heart disease of [place] coronary artery without angina pectoris Status: Acute Assessment and Plan: Recent PCI to the RCA. Unfortunately has had recurrent chest pain. Continue nitroglycerin paste 1/2 inch q.6 hours. Continue IV heparin. Because of her recurrent chest pain yesterday that did improve with nitroglycerin, I think it is prudent to proceed with an angiogram to define her anatomy. Will keep her NPO after midnight for coronary angiogram tomorrow (2) Elevated troponin: Code(s): R79.89 - Other specified abnormal findings of blood chemistry Status: Acute Assessment and Plan: Representing a non ST-elevation myocardial infarction. (3) Chronic systolic heart failure: Code(s): I50.22 - Chronic systolic (congestive) heart failure Status: Chronic Assessment and Plan: Continue current regimen (4) End stage renal disease on dialysis: Code(s): N18.6 - End stage renal disease; Z99.2 - Dependence on renal dialysis Status: Chronic Assessment and Plan: Will need dialysis after catheterization Subjective Date/time seen: 03/25/21 10:02 Interval history: 45-year-old admitted for nausea vomiting and elevated troponin Date of service 03/25/2021: She did have chest pain off and on yesterday. Currently pain free. Chest pain did improve with nitroglycerin paste. No shortness of breath Review of Systems Constitutional: Constitutional: Reports fatigue Eyes: Eyes: Reports no additional eye complaints ENT: Reports system reviewed and no additional complaints, except as documented Cardiovascular: Cardiovascular: Reports no additional cardiovascular complaints Respiratory: Respiratory: Reports no additional respiratory complaints Gastrointestinal: Gastrointestinal: Reports as per HPI, Reports diarrhea and Reports nausea Musculoskeletal: Musculoskeletal: Reports no additional musculoskeletal complaints Integumentary/Breasts: Skin/Breast: Reports system reviewed and no additional complaints, except as docu Neurologic: Reports system reviewed and no additional complaints, except as documented Endocrine: Endocrine: Reports no additional endocrine complaints and Reports fatigue Hematologic/Lymphatic: Hematologic/Lymphatic: Reports no additional hematologic/lymphatic complaints Allergic/Immunologic: Allergic/Immunologic: Reports no additional allergic/immunologic complaints Exam Const: General: comfortable and no acute distress Other: Well-developed well-nourished white female sitting on the bedside in IMU appears to be comfortable HENMT: Mouth: Yes moist mucous membranes Eyes: Sclera: sclerae normal Pupils: Equal, round and reactive pupils present Neck: Neck: supple and no JVD Resp: Effort & Inspection: normal respiratory effort Auscultation: clear to auscultation bilaterally Cardio: Rate: regular rate Rhythm: regular rhythm Other: PMI is laterally displaced first and second heart sounds normal no audible murmur gallop GI: Auscultation: normal bowel sounds Skin: General skin exam: normal color Neuro: Cranial nerves: Yes Equal, round and reactive pupils present Cognition (Neuro): normal cognition Extrem: Other: Adequate perfusion, no edema Psych: Appearance: grossly normal Objective Data Vital Signs Vital Signs: Vital Signs - 24 hr 03/24/21 11:56 03/24/21 12:00 03/24/21 14:00 Temperature 37.7 C H Pulse Rate 61 61 65 Respiratory Rate 16 Blood Pressure 98/43 L Pulse Oximetry 100 96 03/24/21 16:00 03/24/21 16:53 03/24/21 17:09 Temperature 37.5 C Pulse Rate 62 61 Respiratory Rate 18 Blood Pressure 98/41 L 94/45 L Pulse Oximetry 97 03/24/21 18:00 03/24/21 20:00 03/24/21 22:00 Temperature 36.6 C Pulse Rate 62 62 64 Respiratory Rate 18 Blood Pressure 96/42 L Pulse Oximetry 100 03/24
[2021-03-25 12:31] LABS: Glucose Point of Care 173 mg/dl (65-105)
[2021-03-25 12:57] LABS: Partial Thromboplastin Time 56.5 SECONDS (22.3-36.8)
[2021-03-25] MEDS: HEPARIN SODIUM 5,000 UNITS/ML VIAL 2500 UNITS IV PUSH (13:08)
[2021-03-25] MEDS: HEPARIN SOD/D5W 100 UNITS/ML 25,000 UNITS/250 ML BAG 12 UNITS IV CONT (13:11)
--- NOTE | 2021-03-25 16:22 | PM.IMPN ---
Progress Note: A&P Assessment and Plan (1) Chronic systolic heart failure: Code(s): I50.22 - Chronic systolic (congestive) heart failure Status: Chronic Assessment and Plan: - HFrEF of 30%-3% as of 01/26/21. - Refuses to use a life vest. - Sp heart cath today 03/27/21 15:47 patient is a 45-year-old female with history of end-stage renal disease on hemodialysis, p.o. coronary artery disease status post stent presented emergency department with complaint of recurrent chest pain was seen by extractive metallurgist and and had a cardiac catheterization it showed patient stented artery was stenosis and and with PTCA and high-pressure balloon inflation with good angiographic result, currently patient has no chest pain remains clinically stable, patient will have scheduled hemodialysis tomorrow and may possibly discharge home afterward. (2) Pulmonary edema: Qualifiers: Chronicity: acute Qualified Code(s): J81.0 - Acute pulmonary edema Code(s): J81.1 - Chronic pulmonary edema Status: Acute Assessment and Plan: - Dialysis today for Ultrafiltration (3) ESRD needing dialysis: Code(s): N18.6 - End stage renal disease; Z99.2 - Dependence on renal dialysis Status: Acute Assessment and Plan: - Pt. with left sided graft with positive Bruit and thrill. (4) Nausea & vomiting: Qualifiers: Vomiting Intractability: non-intractable Vomiting type: unspecified Qualified Code(s): R11.2 - Nausea with vomiting, unspecified Code(s): R11.2 - Nausea with vomiting, unspecified Status: Acute Assessment and Plan: - Intractable s/p Lap Cholecystectomy.on 03/15 pt is recovering well (5) Diarrhea: Qualifiers: Diarrhea type: unspecified type Qualified Code(s): R19.7 - Diarrhea, unspecified Code(s): R19.7 - Diarrhea, unspecified Status: Acute Assessment and Plan: - Continue Flagyl as coverage for possibly C-diff. - Stool studies pending. - GI consult ordered. (6) Elevated troponin: Code(s): R77.8 - Other specified abnormalities of plasma proteins Status: Acute Assessment and Plan: - Increasing Troponin noted. - Cardiology consulted and did not request anything be done as per in HPI. (7) Severe hyperglycemia due to diabetes mellitus: Code(s): E11.65 - Type 2 diabetes mellitus with hyperglycemia Status: Acute Assessment and Plan: - Continue SSI, Lantus and accuchecks - Continue Diabetic/Renal diet. - Continue Diabetic diet. (8) Hypertension: Qualifiers: Hypertension type: unspecified Qualified Code(s): I10 - Essential (primary) hypertension Code(s): I10 - Essential (primary) hypertension Status: Chronic Assessment and Plan: - Continue Amlodipine 5 mg po daily - Continue Lisinopril 20 mg po daily Additional Plan # Abdominal pain nausea vomiting diarrhea likely gastroenteritis with recent antibiotic C diff his possibility as well. Will place her on Flagyl for now. will get CT abdomen and pelvis. Stool studies. Recent history of acute cholecystitis status post cholecystectomy recent an antibiotic will check C diff # [id number] pulmonary edema per CTA however not clinically in pulmonary edema /CHF. Dialysis as planned in a.m. # History of gastroparesis recurrent nausea vomiting episodes in the past. Continue Reglan # Recent cholecystitis status post cholecystectomy also had cecal diverticulitis will check CT abdomen to further evaluate # elevated troponin: history of troponin elevation the past. will get serial troponins # type 2 DM: on insulin at Home. she did not use any insulinYesterday as she was not eating. noted to be hyperglycemic as 500s without DKA. Resume Lantus and SSI # chronic anemia: stable blood counts continue to monitor. # peripheral vascula disease sp amputation of toes. on aspirin, plavix. # tobacco dependence # ESRD o
[2021-03-25 17:08] LABS: Glucose Point of Care 69 mg/dl (65-105)
[2021-03-25 19:44] LABS: Partial Thromboplastin Time 95.9 SECONDS (22.3-36.8)
[2021-03-25 20:09] LABS: Glucose Point of Care 180 mg/dl (65-105)
[2021-03-25] MEDS: INSULIN GLARGINE (*BKC) 100 UNITS/ML 10 UNITS SUB-Q (20:40)
[2021-03-26] VITALS (53 sets, daily range): BP systolic 96–143; BP diastolic 44–73; PULSE 64–82; RESP 16–22; TEMP 35.9–37; O2SAT 92–100
[2021-03-26] MEDS: ACETAMINOPHEN 325 MG TABLET 650 MG PO ×2 (00:23→12:50)
[2021-03-26 01:31] LABS: Partial Thromboplastin Time 65.7 SECONDS (22.3-36.8)
[2021-03-26] MEDS: HEPARIN SODIUM 5,000 UNITS/ML VIAL 2500 UNITS IV PUSH (01:51)
[2021-03-26] MEDS: metroNIDAZOLE 500 MG/ISO 100ML 500 MG/100 ML BAG 100 MG IVPB ×2 (06:35→16:05)
[2021-03-26] MEDS: NITROGLYCERIN OINTMENT 1 INCH DOSE 0.5 INCH TRANSDERM (06:36)
[2021-03-26 06:51] LABS: Glucose Point of Care 158 mg/dl (65-105)
[2021-03-26] MEDS: carvediloL 25 MG TABLET PO ×2 (08:33→17:09)
[2021-03-26] MEDS: ASPIRIN 81 MG ENTERIC TABLET PO (08:33)
[2021-03-26] MEDS: THERAPEUTIC MULTIVITAMINS/MINERALS TAB (*BKC) 1 TABLET PO (08:34)
[2021-03-26] MEDS: CLOPIDOGREL BISULFATE 75 MG TABLET PO (08:34)
[2021-03-26] MEDS: lisinopriL 20 MG TABLET PO (08:34)
[2021-03-26] MEDS: amLODIPine BESYLATE 5 MG TABLET PO (08:34)
[2021-03-26 09:11] LABS: Partial Thromboplastin Time > 200.0 SECONDS (22.3-36.8)
--- NOTE | 2021-03-26 09:12 | WPDMODSED ---
Moderate Sedation Note-Pt Data Patient Data Diagnosis: Coronary artery disease with previous PCI to right coronary artery Cardiomyopathy End-stage renal disease Present Complaint: Presenting complaint was vomiting diarrhea Episode of somewhat nitrate responsive chest pain over the weekend Procedure to be performed/Plan: Coronary angiogram Allergies Allergy/AdvReac Type Severity Reaction Status Date / Time No Known Drug Allergies Allergy Unknown Verified 03/22/21 17:04 Home Medications Medication Instructions Recorded Confirmed Type acetaminophen [Mapap 650 mg PO Q4H PRN #60 tablet 06/09/19 03/23/21 Rx (acetaminophen)] insulin aspart U-100 [Novolog 7 unit SUB-Q TIDWM #0 ml 12/10/19 03/23/21 Rx Flexpen U-100 Insulin] ondansetron 4 mg PO Q8H PRN 3 Days #9 tablet 12/10/19 03/23/21 Rx clopidogrel [Plavix] 75 mg PO DAILY 12/01/20 03/23/21 History lisinopril 20 mg PO DAILY 12/01/20 03/23/21 History amlodipine 5 mg PO DAILY 12/20/20 03/23/21 History aspirin 81 mg PO DAILY 12/20/20 03/23/21 History metoclopramide HCl 5 mg PO TIDWM 12/20/20 03/23/21 History Basaglar KwikPen U-100 Insulin 10 unit SUBCUT HS 01/26/21 03/23/21 History Thera-M 1 tablet PO DAILY 03/13/21 03/23/21 History carvedilol 25 mg PO BID 03/13/21 03/23/21 History furosemide 80 mg PO BID 03/13/21 03/23/21 History sevelamer carbonate 800 mg PO TIDWM 03/13/21 03/23/21 History Saccharomyces boulardii [Florastor] 250 mg PO BID 10 Days #20 cap 03/17/21 03/23/21 Rx Current Medications: Active Medications Acetaminophen (Acetaminophen 325 Mg Tablet) 650 mg PO Q4H PRN PRN Reason: Mild Pain (1-3) Or Fever Last Admin: 03/26/21 00:23 Dose: 650 mg Documented by: Amlodipine Besylate (Amlodipine Besylate 5 Mg Tablet) 5 mg PO DAILY [facility] Last Admin: 03/26/21 08:34 Dose: 5 mg Documented by: Aspirin (Aspirin 81 Mg Enteric Tablet) 81 mg PO DAILY [facility] Last Admin: 03/26/21 08:33 Dose: 81 mg Documented by: Carvedilol (Carvedilol 25 Mg Tablet) 25 mg PO BIDWM [facility] Last Admin: 03/26/21 08:33 Dose: 25 mg Documented by: Clopidogrel Bisulfate (Clopidogrel Bisulfate 75 Mg Tablet) 75 mg PO DAILY [facility] Last Admin: 03/26/21 08:34 Dose: 75 mg Documented by: Furosemide (Furosemide 80 Mg Tablet) 80 mg PO BID [facility] Last Admin: 03/26/21 08:32 Dose: Not Given Documented by: Heparin Sodium (Porcine) (Heparin Sodium 5,000 Units/Ml Vial) 4,000 units IV PUSH PRN PRN PRN Reason: aPTT less than 55 seconds Last Admin: 03/24/21 23:56 Dose: 4,000 units Documented by: Heparin Sodium (Porcine) (Heparin Sodium 5,000 Units/Ml Vial) 2,500 units IV PUSH PRN PRN PRN Reason: aPTT 55 - 70 seconds Last Admin: 03/26/21 01:51 Dose: 2,500 units Documented by: Albumin Human (Albutein) 50 mls @ 999 mls/hr IVPB Q10M PRN PRN Reason: HYPOTENSION Stop: 04/21/21 21:26 Metronidazole (Flagyl 500 Mg/Iso Soln 100 Ml) 500 mg in 100 mls @ 100 mls/hr IVPB Q8H [facility] Last Admin: 03/26/21 06:35 Dose: 100 mls/hr Documented by: Heparin Sodium/Dextrose (Heparin Sodium/D5w 100 Units/Ml) 25,000 units in 250 mls @ 13 mls/hr IV CONT .[id number] [facility]; Protocol Last Titration: 03/26/21 01:51 Dose: 1,300 units/hr, 13 mls/hr Documented by: Insulin Aspart (Insulin Aspart (*Bkc) 100 Units/Ml) 7 units SUB-Q TIDWM [facility] Stop: 04/22/21 07:59 Last Admin: 03/26/21 07:29 Dose: Not Given Documented by: Insulin Glargine (Insulin Glargine (*Bkc) 100 Units/Ml) 10 units SUB-Q HS [facility] Last Admin: 03/25/21 20:40 Dose: 10 units Documented by: Lisinopril (Lisinopril 20 Mg Tablet) 20 mg PO DAILY [facility] Last Admin: 03/26/21 08:34 Dose: 20 mg Documented by: Multivitamins/Calcium (Therapeutic Multivitamins/Minerals Tab (*Bkc)) 1 tablet PO DAILY [facility] Last Admin: 03/26/21 08:34 Dose: 1 tablet Documented by: Nitroglycerin (Nitroglycerin Ointment 1 Inch Dose) 0.5 inch TRANSDERM Q6HR [facility] Last Admin: 03/26/21 06:36 Dose: 0.5 inch Documented by: Ondansetron HCl (Ondansetron Inj 4 Mg/2 Ml Vial) 4 mg IV PUSH Q4H P
--- NOTE | 2021-03-26 09:36 | PC.NURSE ---
Patient to cardiac wastewater analyst lab analyst via stretcher. Report given to TONE Pro.
--- NOTE | 2021-03-26 10:28 | ECG_ITS ---
Measurements Intervals [place] Rate: 69 P: 72 AR: 199 QRS: 42 QRSD: 126 T: -51 QT: 435 QTc: 469 Interpretive Statements SINUS RHYTHM POSSIBLE LEFT ATRIAL ENLARGEMENT INTRAVENTRICULAR CONDUCTION DELAY ST-T WAVE ABNORMALITY IN INFERIOR LEADS- CONSIDER ISCHEMIA ABNORMAL ECG Electronically Signed On 03-26-2021 12:07:42 CDT by Misael Ahmadi D.O.
--- NOTE | 2021-03-26 10:33 | WPDCARDPROC ---
Cardiac Cath Procedure Note Date of procedure:: 03/26/21 Performing physician:: Edward Potter MD Indication:: coronary artery disease with previous RCA stenting evidence of acute coronary syndrome Brief clinical history:: this is a 45-year-old woman with diabetes and end-stage renal disease on dialysis. She also has a history of coronary artery disease being treated at another hospital in August of this year with RCA stenting. Because of symptoms, troponin elevation and nitrate responsive chest discomfort follow-up angiogram was recommended Procedure Procedure performed:: coronary angiogram PTCA, IVUS of in stent RCA stenosis Sedation/Medication given:: fentanyl 25 mg Versed 2 mg case start time 9:52 a.m. case end time 10:23 a.m. Payam Manzo RN, trained observer Access site:: right femoral artery Estimated blood loss:: 15 cc Procedure note:: patient was brought to the cardiac catheterization lab in the postabsorptive state the right femoral triangle was prepared and draped in the usual fashion. Using the modified Seldinger technique the femoral artery was punctured and a 5 [place] vascular sheath was placed. I then used a standard 5 [place] FL4 catheter to engage and inject the left coronary artery in multiple projections. A standard 5 [place] JR4 catheter was used to engage and inject the RCA. Following this the cine angiograms were reviewed and the PCI of the right coronary artery was recommended and carried out as detailed below. The patient was taking aspirin and clopidogrel chronically and was not loaded with any additional anti-platelet medication. Procedural anticoagulation was given with bolus and infusion of Angiomax and a renally adjusted dose. Prior to PCI the 5 [place]uv[place] sheath was changed out over guidewire for a 6 [place]uvian. Following PCI the sheath was sutured into position the patient had no procedural complications and left the trestle mainternance laborer with no evidence of a groin hematoma. Findings:: Hemodynamics: Central aortic pressure was 132/82. The left ventricle was not entered during this procedure the left main coronary artery is medium in caliber and free of significant lesions. The LAD is a medium caliber vessel that is patent down to the apex the LAD has mild luminal irregularities. In the ostium of the LAD there appears to be an eccentric stenosis of about 50%. Circumflex is a medium caliber vessel giving rise to the marginal branches. The circumflex system is mildly diffusely disease but there are no high-grade lesions identified. Right coronary artery is moderate caliber and dominant to the posterior circulation. There is visible stent material from the proximal segment of the right coronary down to the 3rd portion. In the 2nd portion of the artery there is a 99% stenosis in the stented segment of the vessel. There is no visible thrombus in the vessel. Intervention: The right coronary was engaged using a standard 6 [place] JR4 guiding catheter. The right coronary was wired 0.014 BMW coronary guidewire. I pre-dilated the lesion using a 3 x 20 mm emerge balloon. The area of stenosis was then examined using intravascular ultrasound. There appeared to be modest residual stenosis due to if intimal hyperplasia but no stent malapposition was seen. The 3 mm diameter appeared to be appropriate for this vessel. I then placed a high-pressure 3 mm noncompliant balloon inflated to 20 atmospheres which resulted in excellent patency and MISAEL 3 flow in the vessel. Conclusion:: 1. Coronary artery disease with high-grade stenosis in the 2nd portion of the RCA in the middle of region that was stented about 5 months ago. 2. In stent stenosis was treated here PTCA, intravascular ultrasound and then high-pressure balloon inflation of this area with a nice angiographic result. 3. Modest stenosis of the LAD ostium 4. this did not appear to be a thrombotic event and so I am not going to alter her aspirin and
[2021-03-26] MEDS: ONDANSETRON INJ 4 MG/2 ML VIAL IV PUSH (14:06)
[2021-03-26] MEDS: fentaNYL CITRATE INJ (*CRX) 100 MCG/2 ML VIAL 25 MCG IV PUSH (14:07)
[2021-03-26 14:12] LABS: Glucose Point of Care 193 mg/dl (65-105)
--- NOTE | 2021-03-26 14:50 | PC.NURSE ---
Patient returned to room following cardiac cath. Report received from TONE Hare.
--- NOTE | 2021-03-26 14:58 | PM.IMPN ---
Progress Note: A&P Assessment and Plan (1) Chronic systolic heart failure: Code(s): I50.22 - Chronic systolic (congestive) heart failure Status: Chronic Assessment and Plan: - HFrEF of 30%-3% as of 01/26/21. - Refuses to use a life vest. - Sp heart cath today (2) Pulmonary edema: Qualifiers: Chronicity: acute Qualified Code(s): J81.0 - Acute pulmonary edema Code(s): J81.1 - Chronic pulmonary edema Status: Acute Assessment and Plan: - Dialysis today for Ultrafiltration (3) ESRD needing dialysis: Code(s): N18.6 - End stage renal disease; Z99.2 - Dependence on renal dialysis Status: Acute Assessment and Plan: - Pt. with left sided graft with positive Bruit and thrill. (4) Nausea & vomiting: Qualifiers: Vomiting Intractability: non-intractable Vomiting type: unspecified Qualified Code(s): R11.2 - Nausea with vomiting, unspecified Code(s): R11.2 - Nausea with vomiting, unspecified Status: Acute Assessment and Plan: - Intractable s/p Lap Cholecystectomy.on 03/15 pt is recovering well (5) Diarrhea: Qualifiers: Diarrhea type: unspecified type Qualified Code(s): R19.7 - Diarrhea, unspecified Code(s): R19.7 - Diarrhea, unspecified Status: Acute Assessment and Plan: - Continue Flagyl as coverage for possibly C-diff. - Stool studies pending. - GI consult ordered. (6) Elevated troponin: Code(s): R77.8 - Other specified abnormalities of plasma proteins Status: Acute Assessment and Plan: - Increasing Troponin noted. - Cardiology consulted and did not request anything be done as per in HPI. (7) Severe hyperglycemia due to diabetes mellitus: Code(s): E11.65 - Type 2 diabetes mellitus with hyperglycemia Status: Acute Assessment and Plan: - Continue SSI, Lantus and accuchecks - Continue Diabetic/Renal diet. - Continue Diabetic diet. (8) Hypertension: Qualifiers: Hypertension type: unspecified Qualified Code(s): I10 - Essential (primary) hypertension Code(s): I10 - Essential (primary) hypertension Status: Chronic Assessment and Plan: - Continue Amlodipine 5 mg po daily - Continue Lisinopril 20 mg po daily Subjective Date/time seen: 03/26/21 14:58 Interval history: 45-year-old female who presents to the ED today with complaint of nausea vomiting and diarrhea that started yesterday. Pt had elevated troponin, pt went for heart catheterization today under cardiology. Medical management to continue. pt had in stent stenosis was treated here PTCA, intravascular ultrasound and then high-pressure balloon inflation of this area today. Pt also has a history of end-stage renal disease, diabetes hypertension systolic heart failure with reduced ejection fraction from November 2020 with at 30-35% chronic anemia coronary artery disease with recent heart stent in August of 2020 and current smoker. Review of Systems Review of Systems: All systems reviewed & are unremarkable except as noted in HPI and below Exam Const: General: cooperative and healthy appearing; No in distress Nutritional Appearance: overweight Orientation/consciousness: oriented to person HENMT: Head: normal to inspection Resp: Effort & Inspection: no respiratory distress Auscultation: no rhonchi and no wheezes Cardio: Rate: regular rate Rhythm: regular rhythm GI: Inspection: normal to inspection GI Palp: No abdominal tenderness, No Guarding due to palpation present (GI) and No Hepatomegaly present Auscultation: normal bowel sounds Neuro: General: oriented to person Objective Data Vital Signs Vital Signs: Vital Signs - 24 hr 03/25/21 16:00 03/25/21 17:00 03/25/21 18:00 Temperature 37.4 C Pulse Rate 62 69 66 Respiratory Rate 12 Blood Pressure 108/49 L Pulse Oximetry 98 03/25/21 19:37 03/25/21 20:00 03/25/21 22:00 Temperat
--- NOTE | 2021-03-26 15:10 | PM.PNNEP ---
Progress Note: A&P Assessment and Plan (1) End stage renal disease: Code(s): N18.6 - End stage renal disease Status: Chronic Assessment and Plan: Assessment and plan (1) End stage renal disease: On hemodialysis Friday Code(s): N18.6 - End stage renal disease Status: Chronic Additional Plan End-stage renal disease Type diabetes mellitus with exacerbation of gastroparesis Acute on chronic systolic heart failure, elevated troponin levels Anemia chronic kidney disease Secondary hyperparathyroidism With nausea and vomiting contrast contraction alkalosis although there are imaging manifestations of congestive heart failure Coronary artery disease with elevated troponin in a patient discard cardiac catheterization and angioplasty of the RCA. Plan: -dialysis today. We will continue hemodialysis treatment Friday. -ultrafilter to target rate -patient needs Cardio evaluation for the elevated troponin -follow-up of ESRD and related needs -dialysis orders delivered -thanks for allowing us to participate in the care of this patient. We will continue to follow her closely. Subjective Date/time seen: 03/26/21 15:10 Interval history: Patient is seen and examined. Patient is lying in the bed comfortably not in acute distress. Patient is seen in the PACU. SHe just came out of her cardiac catheterization and RCA angioplasty. She is not in acute chest pain or shortness of breath. Resting comfortably. General: Patient is lying in the bed comfortably not in acute distress. HEENT: Extraocular movements intact, no scleral icterus, atraumatic, normocephalic. Neck: Supple, no JVD, no thyromegaly. Lungs: Diminished air entry. No rhonchi, no wheezing. Heart: Regular rate and rhythm, S1-S2 audible Abdomen: Soft, positive bowel sounds, no rebound or rigidity, no abdominal distention. Extremities: No extremity edema. Pulses palpable in upper lower extremities. PROCESS CAMERA OPERATOR: Alert orient x3, no new neurological deficit Skin: No rash, dry Objective Data Vital Signs Vital Signs: Vital Signs - 24 hr 03/25/21 16:00 03/25/21 17:00 03/25/21 18:00 Temperature 37.4 C Pulse Rate 62 69 66 Respiratory Rate 12 Blood Pressure 108/49 L Pulse Oximetry 98 03/25/21 19:37 03/25/21 20:00 03/25/21 22:00 Temperature 37.3 C Pulse Rate 67 66 66 Respiratory Rate 12 Blood Pressure 121/52 L Pulse Oximetry 97 97 03/25/21 23:49 03/26/21 00:00 03/26/21 00:20 Temperature 36.3 C L Pulse Rate 68 70 Respiratory Rate 18 Blood Pressure 96/48 L 96/48 L Pulse Oximetry 97 97 03/26/21 02:00 03/26/21 04:00 03/26/21 06:00 Temperature 36.6 C Pulse Rate 68 67 71 Respiratory Rate 16 Blood Pressure 103/51 L Pulse Oximetry 98 03/26/21 06:50 03/26/21 08:00 03/26/21 08:33 Temperature 36.3 C L Pulse Rate 70 70 70 Respiratory Rate 16 Blood Pressure 114/51 L Pulse Oximetry 95 03/26/21 10:45 03/26/21 11:00 03/26/21 11:15 Temperature 36.4 C Pulse Rate 69 67 68 Respiratory Rate 16 16 16 Blood Pressure 117/55 L 116/54 L 122/60 Pulse Oximetry 93 92 100 03/26/21 11:30 03/26/21 11:45 03/26/21 12:17 Temperature Pulse Rate 67 68 69 Respiratory Rate 16 16 16 Blood Pressure 126/70 122/57 L 136/57 L Pulse Oximetry 100 100 99 03/26/21 12:30 03/26/21 12:40 03/26/21 13:13 Temperature Pulse Rate 70 71 70 Respiratory Rate 16 20 16 Blood Pressure 127/69 139/57 L 136/56 L Pulse Oximetry 99 98 93 03/26/21 13:15 03/26/21 13:20 03/26/21 13:25 Temperature Pulse Rate 71 69 70 Respiratory Rate 18 20 18 Blood Pressure 134/57 L 133/58 L 136/59 L Pulse Oximetry 92 92 96 03/26/21 13:30 03/26/21 13:35 03/26/21 13:40 Temperature Pulse Rate 71 70 71 Respiratory Rate 20 20 22 H Blood Pressure 139/70 122/55 L 139/57 L Pulse Oximetry 100 97 99 03/26/21 13:43 03/26/21 13:45 03/26/21 14:00 Temperature Pulse Rate 69 82 72 Respirat
--- NOTE | 2021-03-26 15:40 | PC.NURSE ---
Patient called out stating she needed to use the restroom. Upon entering the room patient sitting straight up in bed with left leg dangling out of bed. Patient instructed to lay back down. Groin site checked and blood noted on gauze pad. No hematoma at groin site. Pedal pulse palpable. Will monitor groin site frequently.
--- NOTE | 2021-03-26 16:14 | PC.NURSE ---
Spoke with Judy Baron NP, concerning patient sitting up and blood on gauze from groin site. Stated to monitor it every 15 minutes for the next hour and keep a close eye on it. No need to extend bedrest.
[2021-03-26] MEDS: SEVELAMER CARBONATE 800 MG TABLET PO (17:08)
[2021-03-26] MEDS: INSULIN ASPART (*BKC) 100 UNITS/ML 7 UNITS SUB-Q (17:09)
[2021-03-26] MEDS: FUROSEMIDE 80 MG TABLET PO (17:09)
[2021-03-26] MEDS: SACCHAROMYCES BOULARDII 250 MG CAPSULE PO (17:09)
--- NOTE | 2021-03-26 17:15 | PC.NURSE ---
Patient instructed again on importance of keeping head on pillow and not sitting up or moving right leg.
[2021-03-26 17:33] LABS: Glucose Point of Care 171 mg/dl (65-105)
[2021-03-26 18:15] LABS: Hematocrit 30.6 % (37.0-47.0); Hemoglobin 10.2 g/dL (12.0-15.0); Mean Corpuscular HGB Conc 33.3 g/dl (32-36); Mean Corpuscular Hemoglobin 31.6 pg (26-34); Mean Corpuscular Volume 94.7 fl (80-100); Mean Platelet Volume 10.6 fl (7.4-10.4); Platelet Count Result 210 k/mm3 (150-375); Red Blood Count 3.23 M/mm3 (4.2-5.4); Red Cell Distribution Width 12.9 % (11.5-14.5); White Blood Count 11.7 K/mm3 (4.5-10.0)
[2021-03-26 18:34] LABS: Anion Gap 15 mmol/L (8-16); Blood Urea Nitrogen 60 mg/dL (7-17); Calcium 8.2 mg/dL (8.4-10.2); Carbon Dioxide 26 mmol/L (22-30); Chloride 87 mmol/L (98-107); Estimated CRCL calculation 8 ml/min; Estimated Glomerular Filt Rate 5; Glucose 193 mg/dL (65-110); Potassium 5.3 mmol/L (3.4-5.0); Sodium 128 mmol/L (137-145)
[2021-03-26] MEDS: INSULIN GLARGINE (*BKC) 100 UNITS/ML 10 UNITS SUB-Q (20:28)
[2021-03-26 20:29] LABS: Glucose Point of Care 198 mg/dl (65-105)
--- NOTE | 2021-03-26 21:05 | PC.NURSE ---
pt. taken to dialysis room for dialysis treatment.
[2021-03-27] VITALS (20 sets, daily range): BP systolic 115–158; BP diastolic 50–66; PULSE 66–86; RESP 16–20; TEMP 36.3–37; O2SAT 91–100
[2021-03-27] MEDS: metroNIDAZOLE 500 MG/ISO 100ML 500 MG/100 ML BAG 100 MG IVPB ×4 (00:37→23:16)
--- NOTE | 2021-03-27 00:53 | PC.NURSE ---
pt. returned back to room following completion of dialysis treatment. Report given by corner bead operator.
--- NOTE | 2021-03-27 05:11 | ECG_ITS ---
Measurements Intervals [place] Rate: 80 P: 71 VT: 190 QRS: 16 QRSD: 127 T: -16 QT: 420 QTc: 486 Interpretive Statements SINUS RHYTHM POSSIBLE LEFT ATRIAL ENLARGEMENT INTRAVENTRICULAR CONDUCTION DELAY CONSIDER INFERIOR INFARCT, AGE INDETERMINATE BORDERLINE ST-T WAVE ABNORMALITY- LAT/HIGH LAT LEADS BASELINE WANDER- V6 ABNORMAL ECG Electronically Signed On 03-27-2021 12:08:17 CDT by Misael Ahmadi D.O.
[2021-03-27] MEDS: ONDANSETRON INJ 4 MG/2 ML VIAL IV PUSH ×2 (06:39→13:06)
[2021-03-27] MEDS: ONDANSETRON HCL ODT 4 MG TABLET PO (08:15)
[2021-03-27 08:31] LABS: Glucose Point of Care 166 mg/dl (65-105)
[2021-03-27 08:39] LABS: Hematocrit 32.4 % (37.0-47.0); Hemoglobin 10.8 g/dL (12.0-15.0); Mean Corpuscular HGB Conc 33.3 g/dl (32-36); Mean Corpuscular Volume 95.9 fl (80-100); Mean Platelet Volume 10.6 fl (7.4-10.4); Platelet Count Result 223 k/mm3 (150-375); Red Blood Count 3.38 M/mm3 (4.2-5.4); Red Cell Distribution Width 13.2 % (11.5-14.5); White Blood Count 10.6 K/mm3 (4.5-10.0)
[2021-03-27 09:07] LABS: Anion Gap 11 mmol/L (8-16); Blood Urea Nitrogen 28 mg/dL (7-17); Calcium 8.9 mg/dL (8.4-10.2); Carbon Dioxide 32 mmol/L (22-30); Chloride 94 mmol/L (98-107); Estimated CRCL calculation 14 ml/min; Estimated Glomerular Filt Rate 10; Glucose 174 mg/dL (65-110); Potassium 4.3 mmol/L (3.4-5.0); Sodium 137 mmol/L (137-145)
[2021-03-27] MEDS: PROCHLORPERAZINE EDISYLATE 10 MG/2 ML VIAL 5 MG IV PUSH (09:57)
[2021-03-27] MEDS: ASPIRIN 81 MG ENTERIC TABLET PO (11:22)
[2021-03-27] MEDS: carvediloL 25 MG TABLET PO ×2 (11:22→16:52)
[2021-03-27] MEDS: SACCHAROMYCES BOULARDII 250 MG CAPSULE PO ×2 (11:22→16:52)
[2021-03-27] MEDS: lisinopriL 20 MG TABLET PO (11:22)
[2021-03-27] MEDS: THERAPEUTIC MULTIVITAMINS/MINERALS TAB (*BKC) 1 TABLET PO (11:23)
[2021-03-27] MEDS: FUROSEMIDE 80 MG TABLET PO ×2 (11:23→16:52)
[2021-03-27] MEDS: CLOPIDOGREL BISULFATE 75 MG TABLET PO (11:23)
[2021-03-27] MEDS: amLODIPine BESYLATE 5 MG TABLET PO (11:23)
--- NOTE | 2021-03-27 11:37 | PM.PNCARD ---
Progress Note: A&P Assessment and Plan (1) CAD (coronary artery disease): Code(s): I25.10 - Atherosclerotic heart disease of [place] coronary artery without angina pectoris Status: Acute Assessment and Plan: Recent PCI to the RCA. Unfortunately had recurrent chest pain over the weekend. Therefore, coronary angiogram was recommended and was performed yesterday. Angiography revealed InStent restenosis of recently stented RCA. This was addressed with PTCA and high pressure balloon inflation with good angiographic result. Continue ASA Continue Plavix F/u with Dr. Singh in short interval following discharge from this admission (2) Elevated troponin: Code(s): R79.89 - Other specified abnormal findings of blood chemistry Status: Acute Assessment and Plan: Representing a non ST-elevation myocardial infarction. (3) Chronic systolic heart failure: Code(s): I50.22 - Chronic systolic (congestive) heart failure Status: Chronic Assessment and Plan: Echo from 02/07/2021 showed LV systolic dysfunction with EF 39% and grade II diastolic dysfunction. No significant valve pathology. Continue current medical regimen. (4) End stage renal disease on dialysis: Code(s): N18.6 - End stage renal disease; Z99.2 - Dependence on renal dialysis Status: Chronic Assessment and Plan: On dialysis. Nephrology following. Subjective Date/time seen: 03/27/21 11:37 Interval history: Cardiology follow up for NSTEMI Date of service 03/27/2021: Shes denying any chest pain or shortness of breath today. She does have complaints of vomiting and diarrhea that started last night. Review of Systems Constitutional: Constitutional: Reports fatigue Eyes: Eyes: Reports no additional eye complaints ENT: Reports system reviewed and no additional complaints, except as documented Cardiovascular: Cardiovascular: Reports no additional cardiovascular complaints Respiratory: Respiratory: Reports no additional respiratory complaints Gastrointestinal: Gastrointestinal: Reports as per HPI, Reports diarrhea and Reports nausea Musculoskeletal: Musculoskeletal: Reports no additional musculoskeletal complaints Integumentary/Breasts: Skin/Breast: Reports system reviewed and no additional complaints, except as docu Neurologic: Reports system reviewed and no additional complaints, except as documented Endocrine: Endocrine: Reports no additional endocrine complaints and Reports fatigue Hematologic/Lymphatic: Hematologic/Lymphatic: Reports no additional hematologic/lymphatic complaints Allergic/Immunologic: Allergic/Immunologic: Reports no additional allergic/immunologic complaints Exam Const: General: comfortable and no acute distress Other: Pleasant woman sitting comfortably in bed. Appears older than stated age. Alert and oriented. HENMT: Mouth: Yes moist mucous membranes Eyes: Sclera: sclerae normal Pupils: Equal, round and reactive pupils present Neck: Neck: supple and no JVD Resp: Effort & Inspection: normal respiratory effort Auscultation: clear to auscultation bilaterally Cardio: Rate: regular rate Rhythm: regular rhythm GI: Auscultation: normal bowel sounds Skin: General skin exam: normal color Other: AV fistula L upper arm. R groin LHC site free from pain, hematoma, or bruit. Small amount of blood on dressing. Neuro: Cranial nerves: Yes Equal, round and reactive pupils present Cognition (Neuro): normal cognition Extrem: Other: Adequate perfusion, no edema Psych: Appearance: grossly normal Objective Data Vital Signs Vital Signs: Vital Signs - 24 hr 03/26/21 11:45 03/26/21 12:17 03/26/21 12:30 Temperature Pulse Rate 68 69 70 Respiratory Rate 16 16 16 Blood Pressure 122/57 L 136/57 L 127/69 Pulse Oximetry 100 99 99 03/26/21 12:40 03/26/21 13:13 03/26/21 13:15 Temperature Pulse Rate 71 70 71 Respiratory Rate 20 16 18 Blood Pres
[2021-03-27 12:04] LABS: Glucose Point of Care 162 mg/dl (65-105)
[2021-03-27] MEDS: NITROGLYCERIN OINTMENT 1 INCH DOSE 0.5 INCH TRANSDERM ×3 (13:02→23:16)
[2021-03-27] MEDS: INSULIN ASPART (*BKC) 100 UNITS/ML 7 UNITS SUB-Q (13:02)
[2021-03-27] MEDS: SEVELAMER CARBONATE 800 MG TABLET PO ×2 (13:02→16:52)
--- NOTE | 2021-03-27 15:47 | P.PNIM_ITS ---
Progress Note: A&P Assessment and Plan (1) Chronic systolic heart failure: Code(s): I50.22 - Chronic systolic (congestive) heart failure Status: Chronic Assessment and Plan: - HFrEF of 30%-3% as of 01/26/21. - Refuses to use a life vest. - Sp heart cath today 03/27/21 15:47 patient is a 45-year-old female with history of end-stage renal disease on hemodialysis, p.o. coronary artery disease status post stent presented emergency department with complaint of recurrent chest pain was seen by web search evaluator and and had a cardiac catheterization it showed patient stented artery was stenosis and and with PTCA and high-pressure balloon inflation with good angiographic result, currently patient has no chest pain remains clinically stable, patient will have scheduled hemodialysis tomorrow and may possibly discharge home afterward. (2) Pulmonary edema: Qualifiers: Chronicity: acute Qualified Code(s): J81.0 - Acute pulmonary edema Code(s): J81.1 - Chronic pulmonary edema Status: Acute Assessment and Plan: - Dialysis today for Ultrafiltration (3) ESRD needing dialysis: Code(s): N18.6 - End stage renal disease; Z99.2 - Dependence on renal dialysis Status: Acute Assessment and Plan: - Pt. with left sided graft with positive Bruit and thrill. (4) Nausea & vomiting: Qualifiers: Vomiting Intractability: non-intractable Vomiting type: unspecified Qualified Code(s): R11.2 - Nausea with vomiting, unspecified Code(s): R11.2 - Nausea with vomiting, unspecified Status: Acute Assessment and Plan: - Intractable s/p Lap Cholecystectomy.on 03/15 pt is recovering well (5) Diarrhea: Qualifiers: Diarrhea type: unspecified type Qualified Code(s): R19.7 - Diarrhea, unspecified Code(s): R19.7 - Diarrhea, unspecified Status: Acute Assessment and Plan: - Continue Flagyl as coverage for possibly C-diff. - Stool studies pending. - GI consult ordered. (6) Elevated troponin: Code(s): R77.8 - Other specified abnormalities of plasma proteins Status: Acute Assessment and Plan: - Increasing Troponin noted. - Cardiology consulted and did not request anything be done as per in HPI. (7) Severe hyperglycemia due to diabetes mellitus: Code(s): E11.65 - Type 2 diabetes mellitus with hyperglycemia Status: Acute Assessment and Plan: - Continue SSI, Lantus and accuchecks - Continue Diabetic/Renal diet. - Continue Diabetic diet. (8) Hypertension: Qualifiers: Hypertension type: unspecified Qualified Code(s): I10 - Essential (primary) hypertension Code(s): I10 - Essential (primary) hypertension Status: Chronic Assessment and Plan: - Continue Amlodipine 5 mg po daily - Continue Lisinopril 20 mg po daily Additional Plan # Abdominal pain nausea vomiting diarrhea likely gastroenteritis with recent antibiotic C diff his possibility as well. Will place her on Flagyl for now. will get CT abdomen and pelvis. Stool studies. Recent history of acute cholecystitis status post cholecystectomy recent an antibiotic will check C diff # [id number] pulmonary edema per CTA however not clinically in pulmonary edema /CHF. Dialysis as planned in a.m. # History of gastroparesis recurrent nausea vomiting episodes in the past. Continue Reglan # Recent cholecystitis status post cholecystectomy also had cecal diverticulitis will check CT abdomen to further evaluate # elevated troponin: history of troponi
[2021-03-27 16:24] LABS: Glucose Point of Care 83 mg/dl (65-105)
[2021-03-27 18:22] LABS: Hepatitis B Core Ab Total Nonreactive (Nonreactive)
[2021-03-27 20:07] LABS: Glucose Point of Care 199 mg/dl (65-105)
[2021-03-27] MEDS: INSULIN GLARGINE (*BKC) 100 UNITS/ML 10 UNITS SUB-Q (20:38)
[2021-03-28] VITALS (14 sets, daily range): BP systolic 107–140; BP diastolic 44–66; PULSE 66–78; RESP 16–18; TEMP 36.6–37; O2SAT 96–100
[2021-03-28] MEDS: NITROGLYCERIN OINTMENT 1 INCH DOSE 0.5 INCH TRANSDERM (06:07)
[2021-03-28] MEDS: metroNIDAZOLE 500 MG/ISO 100ML 500 MG/100 ML BAG 100 MG IVPB (06:07)
[2021-03-28 08:55] LABS: Glucose Point of Care 117 mg/dl (65-105)
[2021-03-28] MEDS: FUROSEMIDE 80 MG TABLET PO (09:06)
[2021-03-28] MEDS: CLOPIDOGREL BISULFATE 75 MG TABLET PO (09:07)
[2021-03-28] MEDS: ASPIRIN 81 MG ENTERIC TABLET PO (09:07)
[2021-03-28] MEDS: SEVELAMER CARBONATE 800 MG TABLET PO ×2 (09:07→13:02)
[2021-03-28] MEDS: carvediloL 25 MG TABLET PO (09:08)
[2021-03-28] MEDS: lisinopriL 20 MG TABLET PO (09:08)
[2021-03-28] MEDS: amLODIPine BESYLATE 5 MG TABLET PO (09:08)
[2021-03-28] MEDS: THERAPEUTIC MULTIVITAMINS/MINERALS TAB (*BKC) 1 TABLET PO (09:09)
[2021-03-28] MEDS: SACCHAROMYCES BOULARDII 250 MG CAPSULE PO (09:09)
--- NOTE | 2021-03-28 14:47 | PM.DS ---
DS: Admitting Diagnosis Discharge Date 03/28/2021 Admitting Diagnosis Chief Complaint: nausea vomiting diarrhea DS: Discharge Diagnosis Discharge Diagnosis (1) Chronic systolic heart failure: Code(s): I50.22 - Chronic systolic (congestive) heart failure Status: Chronic Assessment and Plan: - HFrEF of 30%-3% as of 01/26/21. - Refuses to use a life vest. - Sp heart cath today 03/27/21 15:47 patient is a 45-year-old female with history of end-stage renal disease on hemodialysis, p.o. coronary artery disease status post stent presented emergency department with complaint of recurrent chest pain was seen by machine guide base winder and and had a cardiac catheterization it showed patient stented artery was stenosis and and with PTCA and high-pressure balloon inflation with good angiographic result, currently patient has no chest pain remains clinically stable, patient will have scheduled hemodialysis tomorrow and may possibly discharge home afterward. (2) Pulmonary edema: Qualifiers: Chronicity: acute Qualified Code(s): J81.0 - Acute pulmonary edema Code(s): J81.1 - Chronic pulmonary edema Status: Acute Assessment and Plan: - Dialysis today for Ultrafiltration (3) ESRD needing dialysis: Code(s): N18.6 - End stage renal disease; Z99.2 - Dependence on renal dialysis Status: Acute Assessment and Plan: - Pt. with left sided graft with positive Bruit and thrill. (4) Nausea & vomiting: Qualifiers: Vomiting Intractability: non-intractable Vomiting type: unspecified Qualified Code(s): R11.2 - Nausea with vomiting, unspecified Code(s): R11.2 - Nausea with vomiting, unspecified Status: Acute Assessment and Plan: - Intractable s/p Lap Cholecystectomy.on 03/15 pt is recovering well (5) Diarrhea: Qualifiers: Diarrhea type: unspecified type Qualified Code(s): R19.7 - Diarrhea, unspecified Code(s): R19.7 - Diarrhea, unspecified Status: Acute Assessment and Plan: - Continue Flagyl as coverage for possibly C-diff. - Stool studies pending. - GI consult ordered. (6) Elevated troponin: Code(s): R77.8 - Other specified abnormalities of plasma proteins Status: Acute Assessment and Plan: - Increasing Troponin noted. - Cardiology consulted and did not request anything be done as per in HPI. (7) Severe hyperglycemia due to diabetes mellitus: Code(s): E11.65 - Type 2 diabetes mellitus with hyperglycemia Status: Acute Assessment and Plan: - Continue SSI, Lantus and accuchecks - Continue Diabetic/Renal diet. - Continue Diabetic diet. (8) Hypertension: Qualifiers: Hypertension type: unspecified Qualified Code(s): I10 - Essential (primary) hypertension Code(s): I10 - Essential (primary) hypertension Status: Chronic Assessment and Plan: - Continue Amlodipine 5 mg po daily - Continue Lisinopril 20 mg po daily DS: Summary Hospital Course Reason for hospitalization: Chief Complaint: nausea vomiting diarrhea Narrative: Patient is a 45-year-old female who presents to the ED today with complaint of nausea vomiting and diarrhea that started yesterday. She states that started at night all of a sudden. She had several episodes of diarrhea which is watery loose nonbloody. She also has several episodes of nausea vomiting last diarrhea and vomiting was in the ER. She recently had her gallbladder surgery about a week ago and was discharged on 03/17/2021. She denies any sick contacts or eating unusual food. She reports abdomen is sore from all the vomiting and diarrhea that she has been having. She denies any fever chills. She has a history of end-stage renal disease on hemodialysis Friday, insulin-dependent diabetes hypertension systolic heart failure with reduced ejection fraction from November 2020 with at 30-35% chronic anemia nicole
== END 2021-03-28 15:18 | disposition home or self-care (01) | DRG 250 ==
LOC: ANHED 20:50 → ANH2MED 23:33 → ANHIMU 03-23 06:21
PROVIDERS: Emergency Medicine; Family Medicine; Hospitalist; Internal Medicine; Internal Medicine Cardiovascular Disease; Internal Medicine Nephrology; Nurse Practitioner Adult Health; Specialist; Admitting Provider Internal Medicine; Emergency Provider Emergency Medicine; PCP Internal Medicine; Visit Provider Family Medicine
PROC: 4A023N7 Measurement of Cardiac Sampling and Pressure, Left Heart, Percutaneous Approach (ICD-10-PCS; CPT 93452; principal; 2021-03-26 09:30)
PROC: 02703ZZ Dilation of Coronary Artery, One Artery, Percutaneous Approach (ICD-10-PCS; 2021-03-26 09:30)
PROC: 02703ZZ Dilation of Coronary Artery, One Artery, Percutaneous Approach (ICD-10-PCS; CPT 92920; 2021-03-26 09:30)
DX: I21.4 Non-ST elevation (NSTEMI) myocardial infarction (principal); N18.6 End stage renal disease; G93.5 Compression of brain; J81.0 Acute pulmonary edema; K57.32 Diverticulitis of large intestine without perforation or abscess without bleeding; I13.2 Hypertensive heart and chronic kidney disease with heart failure and with stage 5 chronic kidney disease, or end stage renal disease; I42.9 Cardiomyopathy, unspecified; N25.81 Secondary hyperparathyroidism of renal origin; E87.3 Alkalosis; T82.855A Stenosis of coronary artery stent, initial encounter; A04.72 Enterocolitis due to Clostridium difficile, not specified as recurrent; I50.22 Chronic systolic (congestive) heart failure; Z79.82 Long term (current) use of aspirin; I25.10 Atherosclerotic heart disease of native coronary artery without angina pectoris; Z95.5 Presence of coronary angioplasty implant and graft; Z86.73 Personal history of transient ischemic attack (TIA), and cerebral infarction without residual deficits; D63.1 Anemia in chronic kidney disease; Z99.2 Dependence on renal dialysis; E11.43 Type 2 diabetes mellitus with diabetic autonomic (poly)neuropathy; K31.84 Gastroparesis; E11.22 Type 2 diabetes mellitus with diabetic chronic kidney disease; E78.5 Hyperlipidemia, unspecified; N25.0 Renal osteodystrophy; Z89.429 Acquired absence of other toe(s), unspecified side; Z89.422 Acquired absence of other left toe(s); F17.210 Nicotine dependence, cigarettes, uncomplicated; E86.0 Dehydration; Z79.02 Long term (current) use of antithrombotics/antiplatelets; E11.65 Type 2 diabetes mellitus with hyperglycemia; R77.8 Other specified abnormalities of plasma proteins; Z90.49 Acquired absence of other specified parts of digestive tract; Z79.4 Long term (current) use of insulin; E11.51 Type 2 diabetes mellitus with diabetic peripheral angiopathy without gangrene; Y71.1 Therapeutic (nonsurgical) and rehabilitative cardiovascular devices associated with adverse incidents; Y92.9 Unspecified place or not applicable; K52.9 Noninfective gastroenteritis and colitis, unspecified
CPT/HCPCS: 36415; 36600; 71045; 71275; 74176; 80048; 80053; 80074; 81001; 82375; 82805; 82948; 83050; 83605; 83690; 83880; 84484; 85025; 85027; 85380; 85610; 85730; 86704; 86706; 87015; 87045; 87177; 87209; 87269; 87272; 87427; 89055; 92920; 92978; 93005; 93458; 96361; 96365; 96366; 96367; 96368; 96375; 96376; 99285; A9270; C1725; C1753; C1769; C1887; C1894; G0257; G0378; J0456; J0461; J0583; J0696; J0780; J1644; J1815; J1940; J2250; J2270; J2405; J3010; J7030; J7040; J7120; Q9967

== ENCOUNTER 2021-04-22 17:55 | Observation (INO) | payer OTHER, MEDICARE, MEDICAID, SELFPAY ==
--- NOTE | ~2021-04-22 | XR_ITS ---
XR chest 2V DATE: 04/22/2021 18:30 INDICATION: Midsternal left chest pain, shortness of breath TECHNIQUE: PA and lateral views COMPARISON: 03/22/2021 CT pulmonary scan FINDINGS: Cardiomegaly. No hilar or mediastinal enlargement. Mild basilar infiltrate or atelectasis, primarily on the left. The lungs are otherwise clear. No pulm onary vascular congestion or pleural effusion or pneumothorax. Status post cholecystectomy. IMPRESSION: Cardiomegaly Bibasilar mild infiltrate or atelectasis, greater on the left Reviewed, dictated and finalized at location A.
--- NOTE | 2021-04-22 18:00 | ECG_ITS ---
Measurements Intervals [place] Rate: 93 P: 52 NV: 173 QRS: 9 QRSD: 110 T: 38 QT: 371 QTc: 463 Interpretive Statements SINUS RHYTHM POSSIBLE LEFT ATRIAL ENLARGEMENT INTRAVENTRICULAR CONDUCTION DELAY BORDERLINE R WAVE PROGRESSION, ANTERIOR LEADS CONSIDER INFERIOR INFARCT, AGE INDETERMINATE BORDERLINE ST-T WAVE ABNORMALITY- HIGH LATERAL LEADS BASELINE ARTIFACT- I, II, AVR, AVF, V6 ABNORMAL ECG Electronically Signed On 04-22-2021 22:31:38 CDT by Misael Ahmadi D.O.
[2021-04-22 18:01] VITALS: BP 173/73; PULSE 94; RESP 20; TEMP 37.3; O2SAT 98
[2021-04-22 18:36] LABS: Basophils Percent Auto 0.4 % (0.2-1.2); Eosinophils Absolute Auto 0.1 K/mm3 (0-0.3); Eosinophils Percent Auto 1.5 % (0-4.4); Hematocrit 31.7 % (37.0-47.0); Hemoglobin 10.2 g/dL (12.0-15.0); Immature Granulocyte Absolute 0.02 K/mm3 (0.00-0.031); Immature Granulocyte Percent A 0.2 % (0-0.5); Lymphocytes Absolute Auto 1.93 K/mm3 (0.9-3.2); Lymphocytes Percent Auto 23.8 % (18.3-44.2); Mean Corpuscular HGB Conc 32.2 g/dl (32-36); Mean Corpuscular Hemoglobin 32.8 pg (26-34); Mean Corpuscular Volume 101.9 fl (80-100); Mean Platelet Volume 10.3 fl (7.4-10.4); Monocytes Absolute Auto 0.5 K/mm3 (0.1-0.6); Monocytes Percent Auto 6.7 % (2.6-8.5); Neutrophils Absolute Auto 5.5 K/mm3 (1.3-6.7); Neutrophils Percent Auto 67.4 % (45.5-73.1); Platelet Count Result 186 k/mm3 (150-375); Red Blood Count 3.11 M/mm3 (4.2-5.4); White Blood Count 8.1 K/mm3 (4.5-10.0)
--- NOTE | 2021-04-22 18:42 | ED.CHESTPAIN ---
HPI - Chest Pain General Chief Complaint: Chest Pain Stated Complaint: chest pain, SOB Time Seen by Provider: 04/22/21 18:31 Source: patient Mode of arrival: ambulatory Limitations: no limitations History of Present Illness HPI narrative: Patient is a 45-year-old female complaining of chest pain, midsternal, pressure, 8 out of 10, rating to left upper extremity that started yesterday. Patient states that she is scheduled to have a stent placed on May 08. Patient was seen here last month had a cardiac cath done and had PTCA and high-pressure balloon due to stenosis of one of the stents. Patient denies any shortness of breath, abdominal pain, nausea, vomiting, diaphoresis, fever or chills Related Data Home Medications Medication Instructions Recorded Confirmed clopidogrel [Plavix] 75 mg PO DAILY 12/01/20 03/23/21 lisinopril 20 mg PO DAILY 12/01/20 03/23/21 amlodipine 5 mg PO DAILY 12/20/20 03/23/21 aspirin 81 mg PO DAILY 12/20/20 03/23/21 metoclopramide HCl 5 mg PO TIDWM 12/20/20 03/23/21 Basaglar KwikPen U-100 Insulin 10 unit SUBCUT HS 01/26/21 03/23/21 Thera-M 1 tablet PO DAILY 03/13/21 03/23/21 carvedilol 25 mg PO BID 03/13/21 03/23/21 furosemide 80 mg PO BID 03/13/21 03/23/21 sevelamer carbonate 800 mg PO TIDWM 03/13/21 03/23/21 Allergies Allergy/AdvReac Type Severity Reaction Status Date / Time No Known Drug Allergies Allergy Unknown Verified 04/22/21 20:20 Review of Systems Review of Systems: All systems reviewed & are unremarkable except as noted in HPI and below Constitutional: Constitutional: Denies body ache(s), Denies chills, Denies excessive sweating, Denies fatigue, Denies fever(s), Denies headache(s), Denies lethargy, Denies malaise, Denies weakness and Denies weight loss Eyes: Eyes: Denies blurry vision, Denies change in vision and Denies loss of vision ENT: Denies dizziness, Denies ear discharge, Denies headache(s), Denies lip swelling, Denies epistaxis, Denies nasal congestion, Denies neck pain, Denies throat swelling and Denies tongue swelling Cardiovascular: Cardiovascular: Denies diaphoresis, Denies rapid heart rate, Denies edema, Denies irregular heart rhythm, Denies lightheadedness and Denies palpitations Respiratory: Respiratory: Denies chest congestion, Denies cough and Denies hemoptysis Gastrointestinal: Gastrointestinal: Denies abdominal pain, Denies melena, Denies hematochezia, Denies diarrhea, Denies nausea, Denies vomiting and Denies hematemesis Musculoskeletal: Musculoskeletal: Denies abnormal gait, Denies deformity, Denies joint swelling, Denies limited range of motion, Denies neck pain and Denies numbness Neurologic: Denies Abnormal speech present, Denies abnormal gait, Denies confusion, Denies dizziness, Denies headache(s), Denies focal weakness, Denies loss of vision, Denies numbness, Denies Other visual disturbances, Denies Sensory deficit (Neuro) and Denies weakness Psychiatric: Psychiatric: Denies confusion, Denies depression, Denies auditory hallucinations, Denies homicidal ideation and Denies suicidal ideation Endocrine: Endocrine: Denies cold intolerance, Denies excessive sweating, Denies fatigue, Denies heat intolerance and Denies palpitations Hematologic/Lymphatic: Hematologic/Lymphatic: Denies easy bleeding and Denies easy bruising Allergic/Immunologic: Allergic/Immunologic: Denies lip swelling, Denies throat swelling and Denies tongue swelling PMFSH Past Medical History Medical History Anasarca CAD (coronary artery disease) RCA stent placed in August 2020 Chiari I malformation Chronic osteomyelitis Status post toe amputations CVA (cerebral vascular accident) Small old lacunar infarct at the head of the right caudate nucleus. Erythropoietin deficiency anemia Esophagitis determined by endoscopy EGD December 2019 ESRD (end stage renal disease) on dialysis On hemodialysis since June 2019 Gastroparesis due to DM Hyperli
[2021-04-22 18:46] LABS: INR 1.1; Prothrombin Time 13.7 Seconds (11.1-14.7)
[2021-04-22 18:47] LABS: Partial Thromboplastin Time 29.9 SECONDS (22.3-36.8)
[2021-04-22 19:02] LABS: Anion Gap 19 mmol/L (8-16); Blood Urea Nitrogen 55 mg/dL (7-17); Calcium 9.5 mg/dL (8.4-10.2); Carbon Dioxide 30 mmol/L (22-30); Chloride 92 mmol/L (98-107); Estimated CRCL calculation 11 ml/min; Estimated Glomerular Filt Rate 8; Glucose 149 mg/dL (65-110); Sodium 141 mmol/L (137-145)
[2021-04-22 19:38] LABS: Troponin I 0.065 ng/mL (0.000-0.034)
[2021-04-22 20:19] VITALS: BP 131/76; PULSE 88; RESP 29; O2SAT 99
[2021-04-22] MEDS: NITROGLYCERIN SL 0.4 MG TABLET SUBLINGUAL (20:19)
[2021-04-22 21:46] LABS: Troponin I 0.059 ng/mL (0.000-0.034)
--- NOTE | 2021-04-22 21:55 | ECG_ITS ---
Measurements Intervals [place] Rate: 83 P: 57 [place]: 177 QRS: -3 QRSD: 108 T: 11 QT: 401 QTc: 474 Interpretive Statements SINUS RHYTHM POSSIBLE LEFT ATRIAL ENLARGEMENT BORDERLINE R WAVE PROGRESSION, ANTERIOR LEADS INFERIOR INFARCT, AGE INDETERMINATE BORDERLINE ST ABNORMALITY- HIGH LATERAL LEADS ABNORMAL ECG Electronically Signed On 04-23-2021 12:27:41 CDT by Misael Ahmadi D.O.
[2021-04-22 22:56] VITALS: BP 146/65; PULSE 85; RESP 22; O2SAT 95
[2021-04-23] VITALS (33 sets, daily range): BP systolic 106–155; BP diastolic 49–70; PULSE 65–86; RESP 16–22; TEMP 36.3–37; O2SAT 92–100; BMI 29.0; BMI 29.1
--- NOTE | 2021-04-23 00:43 | ADMGEN ---
This patient, Pamela Bhat, was admitted to IMU Room 201-01. Patient/family oriented to hospital policies and general routines including ID bracelet, bed and alarms, visiting hours, pain management, procedures, bathroom and other care routines, personal items, smoking policy, room service/diet, and visiting hours. Information on how to activate the Rapid Response Team has been discussed. Patient/Family are encouraged to report perceived risks to care and to ask questions if they do not understand what they are told or what they should do. 0030 arrived report from Chelo WAYNE
[2021-04-23 02:38] LABS: Troponin I 0.064 ng/mL (0.000-0.034)
--- NOTE | 2021-04-23 03:45 | PM.IMHP ---
H&P: HPI History of Present Illness Date/Time: 04/23/21 03:45 Chief Complaint: Chest pain Narrative: 45-year-old female with past medical history of insulin-dependent diabetes mellitus, end-stage renal disease on hemodialysis, coronary artery disease status post cardiac stent August 2020 who presented to the ER after developing left sided subq and substernal chest pain that started on the . She reports that the pain was pressure-like in nature and a 8/10 in intensity. It radiated to the left upper extremity pain. Pain was intermittent in nature and occurred at rest. She did not notice any eliciting factors. She had a cardiac catheterization last month due to a non STEMI and had a PTCA with high-pressure balloon angioplasty to her stent that had been placed in August of 2020. She had a phone appointment with her wound care center consultant at [place] and was scheduled to have removal in exchange of her cardiac stent May 08. She does have insulin-dependent diabetes but reports that her glucoses have been stable with her fasting glucose on the morning of the were 138. She has a continuous glucose monitor. She she did not receive her long-acting last night due to being in the ER. She did not have any accompanying cough, congestion, shortness breath, fevers or chills. She has not noticed any changes in her lower extremity edema. She is due to have dialysis 04/23/2021. She only makes small amounts of urine. Review of Systems Review of Systems: 12 systems were reviewed with pertinent positives and negatives per HPI. Except as documented in the HPI, all other systems were reviewed and are negative. [facility] Past Medical History Medical History (Updated 04/23/21 @ 08:32 by Britni Gonzalez DO) Anasarca CAD (coronary artery disease) RCA stent placed in August 2020 Chiari I malformation Chronic osteomyelitis Status post toe amputations CVA (cerebral vascular accident) Small old lacunar infarct at the head of the right caudate nucleus. Erythropoietin deficiency anemia Esophagitis determined by endoscopy EGD December 2019 ESRD (end stage renal disease) on dialysis On hemodialysis since June 2019 Gastroparesis due to DM Hyperlipidemia Papilledema Renal osteodystrophy Surgical History Surgical History (Updated 04/23/21 @ 07:45 by Britni Gonzalez DO) Amputation of toe Two on the left AV fistula Left forearm H/O tubal ligation During one of her deliveries. History of section, classical X2 History of laparoscopic cholecystectomy (03/15/21) History of tonsillectomy and adenoidectomy Hx of myringotomy S/P dialysis catheter insertion Right internal jugular June 2019 status post removal September 2019 S/P lateral meniscal repair S/P PICC central line placement Now removed S/P rotator cuff repair Family History Family History Other Adopted Social History Social History (Updated 04/23/21 @ 07:53 by Britni Gonzalez DO) Social History: She has 2 children and she lives with her of 28 years. She is on disability. Patient stated that she is down to 1/4pack cigarettes a day. She has smoked up to a pack of cigarettes per day since she was 16 years old. She denies any heavy alcohol use or illicit substance use. Primary care physician: Dr. Christiano Ochoa Cancer Program Director: Dr. Forbes Code status: Full code Healthcare power of employee benefits attorney: Smoking packs per day: 0.25 Smoking cigarettes per day: 5.0 Years smoked: 20 Smoking pack-years: 5.00 Smoking status: Current every day smoker Second hand tobacco smoke exposure: Yes Alcohol intake: never Substance use: never Substance use type: does not use Gender identity (if verbalized by the patient): Female Sexual Orientation (if Verbalized by the Patient): Straight or Heterosexual Spiritual care concerns: No Agree to blood products: Yes Meds Home Me
[2021-04-23] MEDS: INSULIN ASPART (*BKC) 100 UNITS/ML 7 UNITS SUB-Q ×2 (09:04→17:30)
[2021-04-23] MEDS: SACCHAROMYCES BOULARDII 250 MG CAPSULE PO ×2 (09:05→17:31)
[2021-04-23] MEDS: CLOPIDOGREL BISULFATE 75 MG TABLET PO (09:05)
[2021-04-23] MEDS: METOCLOPRAMIDE HCL 5 MG TABLET PO (09:05)
[2021-04-23] MEDS: THERAPEUTIC MULTIVITAMINS/MINERALS TAB (*BKC) 1 TABLET PO (09:05)
[2021-04-23] MEDS: lisinopriL 20 MG TABLET PO (09:05)
[2021-04-23] MEDS: SEVELAMER CARBONATE 800 MG TABLET PO ×2 (09:06→17:31)
[2021-04-23] MEDS: carvediloL 25 MG TABLET PO ×2 (09:06→17:32)
[2021-04-23] MEDS: FUROSEMIDE 80 MG TABLET PO ×2 (09:06→17:32)
[2021-04-23] MEDS: amLODIPine BESYLATE 5 MG TABLET PO (09:06)
[2021-04-23] MEDS: ASPIRIN 81 MG ENTERIC TABLET PO (09:06)
[2021-04-23 09:10] LABS: Glucose Point of Care 191 mg/dl (65-105)
--- NOTE | 2021-04-23 11:24 | PM.CNCAR ---
Assessment and Plan Additional Plan 45-year-old lady with coronary disease high-grade RCA disease stented earlier this year at [place] patient underwent high-pressure balloon inflation of this lesion 1 month ago here at [facility]. She follows with a logging specialist at [place] and some sort of additional intervention a was recommended and is scheduled for about 2 weeks from now at that hospital. As I dictate this obviously I do not have any further information about this. On the positive side there is no evidence of acute coronary syndrome. I would recommend adding sublingual nitroglycerin to her medical regimen I spent some time today explaining this to her and discussing the appropriate use of nitroglycerin. I do not believe she requires a follow-up angiogram here at [facility] and if her physician at [place] has her scheduled for another intervention for some reason she should be presenting to that hospital if she has symptoms and concerns like this. After her dialysis today she can be discharged. Please contact me if you have any questions regarding these comments Edward Potter MD [facility] History of Present Illness History of Present Illness Consult date/time: 04/23/21 11:24 Consult reason: chest pain Reason For Visit: chest pain Narrative: This is a 45-year-old woman known to have coronary disease am seeing her at the request of the hospitalist this morning because of some chest pain with which she was evaluated last evening and admitted to the hospital. The patient states that she was in her usual state of which he thinks is reasonable health at home and began to experience some chest pain and shortness of breath off and on through the course of the day yesterday. She says that as long as she was sitting quietly and had a fan on he was feeling okay but if she got away from her stand she was starting to feel bad. Because of the symptoms she decided to come to the emergency room here at [facility] last evening she was evaluated admitted to the hospital. The patient is known to me because she was just admitted here approximately a month ago with symptoms of chest pain. She has a long history of coronary artery disease and receives her care through physicians downtown at [place]. She also has end-stage renal disease and is on kidney dialysis. The patient following admission had no significant new changes on her ECG her biomarkers are negative for evidence of acute coronary syndrome. Troponin levels are slightly elevated as 1 would expect with her renal failure but they are flat and not a pattern of ACS. Apparently she was found to have coronary disease earlier this year in the spring time where she was hospitalized at [place] and underwent stenting of the mid RCA. She came to this hospital and had a modest troponin rise about a month ago. We brought her to the cardiac asphalt plant laborer here and found her to have high-grade stenosis in the stented segment of her mid RCA. There was no other disease. I treated this with a high-pressure balloon inflation with a good angiographic result. Patient apparently between then and now had follow-up with her logging specialist at [place] who has recommended another intervention of some sort in the RCA the details of which are I am unaware of as I of course did not participate in that decision. She has never received a prescription for nitroglycerin tablets to have in the event of ischemic chest pain. She is due for hemodialysis today and has yet to be treated. Her home medical regimen consists of aspirin, clopidogrel, amlodipine furosemide lisinopril and carvedilol. Review of Systems Constitutional: Constitutional: Reports no additional constitutional complaints Eyes: Eyes: Reports no additional eye complaints ENT: Reports system reviewed and no additional complaints, except as documented Cardiovascular: Cardiovascular: Reports as per HPI Respiratory: Respiratory: Reports no additional respiratory complaints Gastroint
[2021-04-23 12:16] LABS: Glucose Point of Care 83 mg/dl (65-105)
--- NOTE | 2021-04-23 15:43 | PM.DS ---
DS: Admitting Diagnosis Discharge Date 04/23/21 Admitting Diagnosis Chest pain DS: Discharge Diagnosis Discharge Diagnosis (1) Chest pain: Qualifiers: Chest pain type: unspecified Qualified Code(s): R07.9 - Chest pain, unspecified Code(s): R07.9 - Chest pain, unspecified Status: Acute (2) ESRD needing dialysis: Code(s): N18.6 - End stage renal disease; Z99.2 - Dependence on renal dialysis Status: Acute (3) Elevated troponin: Code(s): R77.8 - Other specified abnormalities of plasma proteins Status: Acute (4) Diabetes: Qualifiers: Diabetes mellitus complication detail: with other circulatory complications Diabetes mellitus complication status: with circulatory complication Diabetes mellitus type: type 1 Qualified Code(s): E10.59 - Type 1 diabetes mellitus with other circulatory complications Code(s): E11.9 - Type 2 diabetes mellitus without complications Status: Chronic (5) CAD (coronary artery disease): Qualifiers: Associated angina: with stable angina Coronary Disease-Associated Artery/Lesion type: nez perce artery [place] vs. transplanted heart: nez perce heart Qualified Code(s): I25.118 - Atherosclerotic heart disease of [place] coronary artery with other forms of angina pectoris Code(s): I25.10 - Atherosclerotic heart disease of nez perce coronary artery without angina pectoris Status: Acute DS: Summary Hospital Course Reason for hospitalization: 45yo female with DM, CAD and ESRD here for chest pain. Please see H&P for details Hospital Course: Patient presents with complaints of chest pain. She had a cardiac catheterization last month due to a non STEMI and had a PTCA with high-pressure balloon angioplasty to her stent that had been placed in August of 2020. Patient is scheduled for cardiac catheterization on May 08 at [facility]. Troponin elevated to 0.065 but flat without peak. EKG showed borderline R-wave progression, possibly old inferior infarct and borderline ST T wave changes. CXR showing mild basilar infiltrates. Cardiology did see the patient and did not recommend any further evaluation here. She was encouraged to keep her followup appointments with her Fitness Director. She did not have any further chest pain. She overall did well and was able to be discharged home in stable condition. She did have dialysis prior to discharge. Status at Discharge Cognitive/behavioral status at discharge: stable Time Spent with Patient Time attestation: Total time spent providing and/or coordinating discharge services: 32 minutes Time spent: Greater than 30 minutes Exam Narrative: AF 98.1 117/51 71 22 95% ra Gen - NARD Chest - CTA bilaterally, nml RR CV - RRR S1/S2 Abd - Soft, NT/ND, Positive BS Ext - trace pedal edema; thrill and bruit to the left UE Neuro - Alert and oriented. Nonfocal exam. Psych - Nml mood and affect Skin - Warm and dry DS: Data Data Completed and Pending Labs on day of discharge: Labs from last 24 hours 04/23/21 04/23/21 04/23/21 12:08 09:03 01:47 WBC RBC Hgb Hct MCV MCH MCHC RDW Plt Count MPV Immature Gran % (Auto) Neut % (Auto) Lymph % (Auto) [place] % (Auto) Eos % (Auto) Baso % (Auto) Lymph # (Auto) [place] # (Auto) Eos # (Auto) Baso # (Auto) Abs Immat Gran (auto) Absolute Neuts (auto) Absolute Nucleated RBC Nucleated RBC % PT INR APTT Sodium Potassium Chloride Carbon Dioxide Anion Gap BUN Creatinine Estim Creat Clear Calc Estimated GFR Glucose POC Capillary Glucose 83 191 H Calcium Troponin I 0.064 H* 04/22/21 04/22/21 04/22/21 20:59 18:19 18:19 WBC RBC Hgb Hct MCV MCH MCHC RDW Plt Count MPV Immature Gran % (Auto) Neut % (Auto) Lymph % (Auto) [place] % (Auto) Eos % (Auto) B
[2021-04-23 16:00] LABS: Glucose Point of Care 182 mg/dl (65-105)
[2021-04-23] MEDS: ONDANSETRON HCL ODT 4 MG TABLET PO (16:16)
--- NOTE | 2021-04-23 17:18 | PC.NURSE ---
Called Marylou WAYNE (Dialysis Nurse) to inquire on dialysis order for this patient. Marylou WAYNE informed me she will be calling at this time to acquire dialysis order for this patient.
[2021-04-23 19:57] LABS: Glucose Point of Care 163 mg/dl (65-105)
--- NOTE | 2021-04-23 20:03 | PC.NURSE ---
Patient transported to Dialysis at 1957. Patient transported by bed by this RN. Report given to TONE Frank with dialysis.
[2021-04-23 23:32] LABS: Glucose Point of Care 116 mg/dl (65-105)
--- NOTE | 2021-04-23 23:52 | PC.NURSE ---
Patient arrived back from dialysis at 2326. Transported by bed by Critical alignment technician to IMU bed 201. 3 Liters of fluid removed during dialysis per lime puller.
[2021-04-24] VITALS: BP 140/61; PULSE 70; RESP 18; TEMP 36.8; O2SAT 97
--- NOTE | 2021-04-24 00:26 | PC.NURSE ---
Patient discharged at 0026 to home. All patient belongings sent home with patient. Patient transported by wheelchair.
== END 2021-04-24 00:26 | disposition home or self-care (01) ==
LOC: ANHED 22:28 → ANHIMU 04-23 00:51
PROVIDERS: Admitting Provider Internal Medicine; Emergency Provider Emergency Medicine; PCP Internal Medicine; Visit Provider Internal Medicine
DX: R07.9 Chest pain, unspecified (principal); I25.118 Atherosclerotic heart disease of native coronary artery with other forms of angina pectoris; I12.0 Hypertensive chronic kidney disease with stage 5 chronic kidney disease or end stage renal disease; N18.6 End stage renal disease; E10.22 Type 1 diabetes mellitus with diabetic chronic kidney disease; F17.210 Nicotine dependence, cigarettes, uncomplicated; Z95.5 Presence of coronary angioplasty implant and graft; Z99.2 Dependence on renal dialysis; Z79.4 Long term (current) use of insulin
CPT/HCPCS: 36415; 71046; 80048; 82948; 84484; 85025; 85610; 85730; 93005; 99285; A9270; G0257; G0378; J1815; J7030

== ENCOUNTER 2021-07-17 15:45 | Emergency (ER) | payer OTHER, MEDICARE, MEDICAID, SELFPAY ==
[2021-07-17 16:48] VITALS: BP 157/66; PULSE 92; RESP 20; TEMP 37.5; O2SAT 96
[2021-07-17 19:43] VITALS: BP 172/65; PULSE 87; TEMP 37.2; O2SAT 100
[2021-07-18 01:08] VITALS: BP 159/75; PULSE 85; RESP 24; O2SAT 100
--- NOTE | 2021-07-18 02:20 | ED.GENADULT ---
HPI - General Adult General Chief complaint: Nausea/Vomiting/Diarrhea Stated complaint: sob, covid + Time Seen by Provider: 07/18/21 01:15 History of Present Illness HPI narrative: Patient is a 45-year-old female who presents ER with nausea and vomiting related to COVID-19. Ongoing over the last 3 to 4 days. Associated with diarrhea. Became COVID-positive on 07/13/2021. Dialysis prescribed her Zofran which is not improving her nausea. No chest pain or chest pressure. She has been getting her regular dialysis. No orthopnea. No longer having fevers or chills. 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 Related Data Home Medications Medication Instructions Recorded Confirmed clopidogrel [Plavix] 75 mg PO DAILY 12/01/20 04/23/21 lisinopril 20 mg PO DAILY 12/01/20 04/23/21 amlodipine 5 mg PO DAILY 12/20/20 04/23/21 aspirin 81 mg PO DAILY 12/20/20 04/23/21 metoclopramide HCl 5 mg PO TIDWM 12/20/20 04/23/21 Basaglar KwikPen U-100 Insulin 10 unit SUBCUT HS 01/26/21 04/23/21 Thera-M 1 tablet PO DAILY 03/13/21 04/23/21 carvedilol 25 mg PO BID 03/13/21 04/23/21 furosemide 80 mg PO BID 03/13/21 04/23/21 sevelamer carbonate 800 mg PO TIDWM 03/13/21 04/23/21 Allergies Allergy/AdvReac Type Severity Reaction Status Date / Time No Known Drug Allergies Allergy Unknown Verified 04/22/21 20:20 Review of Systems Review of Systems: All systems reviewed & are unremarkable except as noted in HPI and below Constitutional: Constitutional: Denies chills, Reports fatigue and Denies fever(s) ENT: Denies nasal congestion and Denies sore throat Respiratory: Respiratory: Reports cough, Denies dyspnea and Denies wheezing Gastrointestinal: Gastrointestinal: Denies abdominal pain, Denies constipation, Reports diarrhea, Reports nausea and Reports vomiting Musculoskeletal: Musculoskeletal: Denies arthralgias and Denies joint swelling ON LICENSE OF [facility] Past Medical History Medical History (Updated 07/18/21 @ 06:01 by Juan Diehl MD) Anasarca CAD (coronary artery disease) RCA stent placed in August 2020 Chiari I malformation Chronic osteomyelitis Status post toe amputations CVA (cerebral vascular accident) Small old lacunar infarct at the head of the right caudate nucleus. Erythropoietin deficiency anemia Esophagitis determined by endoscopy EGD December 2019 ESRD (end stage renal disease) on dialysis On hemodialysis since June 2019 Gastroparesis due to DM Hyperlipidemia Papilledema Renal osteodystrophy Surgical History Surgical History (Updated 04/23/21 @ 07:45 by Britni Gonzalez DO) Amputation of toe Two on the left AV fistula Left forearm H/O tubal ligation During one of her deliveries. History of section, classical X2 History of laparoscopic cholecystectomy (03/15/21) History of tonsillectomy and adenoidectomy Hx of myringotomy S/P dialysis catheter insertion Right internal jugular June 2019 status post removal September 2019 S/P lateral meniscal repair S/P PICC central line placement Now removed S/P rotator cuff repair Family History Family History Other Adopted Social History Social History (Updated 04/23/21 @ 07:53 by Britni Gonzalez DO) Social History: She has 2 children and she lives with her of 28 years. She is on disability. Patient stated that she is down to 1/4pack cigarettes a day. She has smoked up to a pack of cigarettes per day since she was 16 years old. She denies any heavy alcohol use or illicit substance use. Primary care physician: Dr. Christiano Ochoa Warm In: Dr. Forbes Code status: Full code Healthcare power of associate attorney: Smoking packs per day: 0.25 Smoking cigarettes per day: 5.0 Years smoked: 20 Smoking pack-years: 5.00 Smoking status: Current every day smoker Second hand tobacco smoke exposure: Yes Alcohol intake: never Substance use: never Substance use type: does not use
[2021-07-18 03:22] VITALS: BP 158/61; PULSE 78; RESP 16; O2SAT 96
[2021-07-18 03:37] LABS: Basophils Percent Auto 0.4 % (0.2-1.2); Eosinophils Absolute Auto 0.1 K/mm3 (0-0.3); Eosinophils Percent Auto 1.3 % (0-4.4); Hematocrit 36.5 % (37.0-47.0); Immature Granulocyte Absolute 0.03 K/mm3 (0.00-0.031); Immature Granulocyte Percent A 0.4 % (0-0.5); Lymphocytes Percent Auto 26.5 % (18.3-44.2); Mean Corpuscular HGB Conc 32.9 g/dl (32-36); Mean Corpuscular Hemoglobin 32.9 pg (26-34); Mean Platelet Volume 9.7 fl (7.4-10.4); Monocytes Absolute Auto 0.6 K/mm3 (0.1-0.6); Monocytes Percent Auto 7.2 % (2.6-8.5); Neutrophils Absolute Auto 5.1 K/mm3 (1.3-6.7); Neutrophils Percent Auto 64.2 % (45.5-73.1); Platelet Count Result 197 k/mm3 (150-375); Red Blood Count 3.65 M/mm3 (4.2-5.4); Red Cell Distribution Width 13.5 % (11.5-14.5); White Blood Count 7.9 K/mm3 (4.5-10.0)
[2021-07-18 03:47] LABS: Alanine Aminotransferase 20 U/L (4-35); Albumin Level 4.3 g/dL (3.5-5.1); Alkaline Phosphatase 133 U/L (38-126); Anion Gap 16 mmol/L (8-16); Aspartate Amino Transferase 28 U/L (14-36); Bilirubin,Total 0.7 mg/dL (0.2-1.3); Blood Urea Nitrogen 43 mg/dL (7-17); Calcium 9.5 mg/dL (8.4-10.2); Carbon Dioxide 34 mmol/L (22-30); Chloride 91 mmol/L (98-107); Estimated CRCL calculation 9 ml/min; Estimated Glomerular Filt Rate 7; Glucose 147 mg/dL (65-110); Lipase 123 U/L (23-300); Potassium 4.5 mmol/L (3.4-5.0); Sodium 141 mmol/L (137-145)
[2021-07-18 04:33] VITALS: BP 175/73; PULSE 82; RESP 18; O2SAT 98
[2021-07-18] MEDS: PROMETHAZINE HCL 25 MG TABLET PO (04:34)
[2021-07-18 06:35] VITALS: BP 170/64; PULSE 87; RESP 16; O2SAT 95
== END 2021-07-18 06:36 | disposition home or self-care (01) ==
PROVIDERS: Emergency Provider Emergency Medicine; PCP Internal Medicine
DX: U07.1 COVID-19 (principal); R11.2 Nausea with vomiting, unspecified; E11.22 Type 2 diabetes mellitus with diabetic chronic kidney disease; N18.6 End stage renal disease; N18.9 Chronic kidney disease, unspecified; E11.43 Type 2 diabetes mellitus with diabetic autonomic (poly)neuropathy; K31.84 Gastroparesis; D63.1 Anemia in chronic kidney disease; M86.672 Other chronic osteomyelitis, left ankle and foot; I25.10 Atherosclerotic heart disease of native coronary artery without angina pectoris; G93.5 Compression of brain; E78.5 Hyperlipidemia, unspecified; N25.0 Renal osteodystrophy; K20.90 Esophagitis, unspecified without bleeding; Z86.73 Personal history of transient ischemic attack (TIA), and cerebral infarction without residual deficits; Z79.4 Long term (current) use of insulin; Z79.02 Long term (current) use of antithrombotics/antiplatelets; Z79.82 Long term (current) use of aspirin; Z89.422 Acquired absence of other left toe(s); F17.210 Nicotine dependence, cigarettes, uncomplicated
CPT/HCPCS: 36415; 80053; 83690; 85025; 99283; A9270; J2550; J7040

== ENCOUNTER 2021-08-30 00:05 | Day surgery (SDC) | payer OTHER, MEDICARE, MEDICAID, SELFPAY ==
[2021-08-21 14:51] VITALS: BMI 26.4
--- NOTE | 2021-08-21 15:22 | PC.NURSE ---
PT GIVEN INSTRUCTONS FOR WHEN TO HOLD PLAVIX. LAST DOSE TO BE ON THE 08/25/21, PT VERBALIZES UNDERSTANDING.
--- NOTE | 2021-08-29 15:00 | WPDANESEPPF ---
Anes - Initial Pre Proc Eval Procedure: Operation Date: 08/30/21 08:00 Proposed Procedures p Esophagogastroduodenoscopy & Colonoscopy - Lamont Ramirez MD Date/Time: 08/29/21 15:00 Surgeon: Lamont Ramirez MD Pre Op Diagnosis: errosive esophagitis, diverticulitis Patient Data Age: 46 Gender: F Height: 1.66 m Weight: 73 kg Allergies Allergy/AdvReac Type Severity Reaction Status Date / Time No Known Drug Allergies Allergy Unknown Verified 08/30/21 06:41 Home Medications Medication Instructions Recorded Confirmed Type acetaminophen [Mapap 650 mg PO Q4H PRN #60 tablet 06/09/19 08/21/21 Rx (acetaminophen)] insulin aspart U-100 [Novolog 7 unit SUB-Q TIDWM #0 ml 12/10/19 08/21/21 Rx Flexpen U-100 Insulin] ondansetron 4 mg PO Q8H PRN 3 Days #9 tablet 12/10/19 08/21/21 Rx clopidogrel [Plavix] 75 mg PO DAILY 12/01/20 08/21/21 History lisinopril 20 mg PO DAILY 12/01/20 08/21/21 History amlodipine 5 mg PO DAILY 12/20/20 08/21/21 History aspirin 81 mg PO DAILY 12/20/20 08/21/21 History metoclopramide HCl 5 mg PO TIDWM 12/20/20 08/21/21 History Basaglar KwikPen U-100 Insulin 10 unit SUBCUT HS 01/26/21 08/21/21 History Thera-M 1 tablet PO DAILY 03/13/21 08/21/21 History carvedilol 25 mg PO BID 03/13/21 08/21/21 History furosemide 80 mg PO DAILY 03/13/21 08/21/21 History sevelamer carbonate 800 mg PO TIDWM 03/13/21 08/21/21 History Saccharomyces boulardii [Florastor] 250 mg PO BID 10 Days #20 cap 03/17/21 08/21/21 Rx nitroglycerin 0.4 mg SUBLINGUAL Q5M PRN #10 04/23/21 08/21/21 Rx tablet promethazine 25 mg PO Q6H PRN #10 tablet 07/18/21 08/21/21 Rx Patient hx anesthesia problems: none Family hx anesthesia problems: none Results Review: All pre-operative results and documents have been reviewed as part of the pre-operative evaluation. [facility] Past Medical History Medical History (Updated 08/30/21 @ 07:35 by Lamont Ramirez MD) Anasarca CAD (coronary artery disease) RCA stent placed in August 2020 CHF (congestive heart failure) Chiari I malformation Chronic osteomyelitis Status post toe amputations CVA (cerebral vascular accident) Small old lacunar infarct at the head of the right caudate nucleus. Dialysis patient Erythropoietin deficiency anemia Esophagitis determined by endoscopy EGD December 2019 ESRD (end stage renal disease) on dialysis On hemodialysis since June 2019 Gastroparesis due to DM Hyperlipidemia Papilledema Renal osteodystrophy Surgical History Surgical History (Updated 08/29/21 @ 15:02 by Dm Landrum DO) Amputation of toe Two on the left AV fistula Left forearm H/O tubal ligation During one of her deliveries. History of section, classical X2 History of coronary artery stent placement History of laparoscopic cholecystectomy (03/15/21) History of tonsillectomy and adenoidectomy Hx of myringotomy S/P dialysis catheter insertion Right internal jugular June 2019 status post removal September 2019 S/P lateral meniscal repair S/P PICC central line placement Now removed S/P rotator cuff repair Family History Family History Other Adopted Social History Social History (Updated 04/23/21 @ 07:53 by Britni Gonzalez DO) Social History: She has 2 children and she lives with her of 28 years. She is on disability. Patient stated that she is down to 1/4pack cigarettes a day. She has smoked up to a pack of cigarettes per day since she was 16 years old. She denies any heavy alcohol use or illicit substance use. Primary care physician: Dr. Christiano Ochoa Rn Ed: Dr. Forbes Code status: Full code Healthcare power of senior trial attorney: Smoking packs per day: 0.25 Smoking cigarettes per day: 5.0 Years smoked: 24 Smoking pack-years: 6.00 Smoking status: Current every day smoker Tobacco type: cigarettes Second hand tobacco smoke exposure: Yes
[2021-08-30 06:44] VITALS: BP 149/53; PULSE 87; RESP 20; TEMP 37.4; O2SAT 91
[2021-08-30] MEDS: SODIUM CHLORIDE 0.9% IV 500 ML 10 ML IV CONT (06:54)
[2021-08-30 06:56] LABS: Glucose Point of Care 162 mg/dl (65-105)
--- NOTE | 2021-08-30 07:31 | WPDGICN ---
Assessment and Plan Assessment and plan (1) Gastroparesis due to DM: Code(s): E11.43 - Type 2 diabetes mellitus with diabetic autonomic (poly)neuropathy; K31.84 - Gastroparesis Status: Acute Assessment and Plan: Patient with history of diabetes in subsequent diet gastroparesis currently on Reglan. Previously documented to have esophagitis treated with PPI no longer being taken. Plan for EGD to assess more thoroughly. Likely acid suppression of some sort would be beneficial for this patient. Continue anti-reflux measures encourage. Interval holidays from Reglan is encouraged to avoid side effects. (2) Diverticulitis: Code(s): K57.92 - Diverticulitis of intestine, part unspecified, without perforation or abscess without bleeding Status: Acute Assessment and Plan: Diverticulitis identified at the time of cholecystectomy. There is some question that this was located in the cecum. For colonoscopy to exclude organic disease in to ensure resolution will be planned today. (3) Reflux esophagitis: Code(s): K21.0 - Gastro-esophageal reflux disease with esophagitis Status: Acute Assessment and Plan: Patient had rather profound esophagitis identified by endoscopy 2 years ago. Plan is for follow-up EGD at this time. (4) End stage renal disease: Code(s): N18.6 - End stage renal disease Status: Chronic GI Consult Note Consult date/time: 08/30/21 07:31 HPI: Pamela Bhat is a 46 year old female Presents for both colonoscopy and EGD. Patient has a longstanding history of diabetes mellitus. His felt to have diabetic gastroparesis. Patient previously had endoscopies in 2019 that revealed significant erosive esophagitis. Because of apparent gastroparesis she has been maintained on Reglan. Her list of medication however fails to include any acid suppression medications. Patient denies taking Prilosec or Prevacid or anything similar. Patient denies any dysphagia. Apparently has intermittent occasional chest pain poorly described. Not necessarily related to eating. Patient presents today for EGD to assess more thoroughly. additionally patient was hospitalized several months ago. She was found to have acute cholecystitis underwent cholecystectomy. During that hospital stay she was also identified as having diverticulitis. She was treated with antibiotics and at present states her weight appetite and bowel movements are normal. She presents today for colonoscopy having had the recent diagnosis of diverticulitis. Now recovered after cholecystectomy. Review of Systems Review of Systems: All systems reviewed & are unremarkable except as noted in HPI and below PMFSH Past Medical History Medical History (Updated 08/30/21 @ 07:35 by Lamont Ramirez MD) Anasarca CAD (coronary artery disease) RCA stent placed in August 2020 CHF (congestive heart failure) Chiari I malformation Chronic osteomyelitis Status post toe amputations CVA (cerebral vascular accident) Small old lacunar infarct at the head of the right caudate nucleus. Dialysis patient Erythropoietin deficiency anemia Esophagitis determined by endoscopy EGD December 2019 ESRD (end stage renal disease) on dialysis On hemodialysis since June 2019 Gastroparesis due to DM Hyperlipidemia Papilledema Renal osteodystrophy Surgical History Surgical History (Updated 08/29/21 @ 15:02 by Dm Landrum DO) Amputation of toe Two on the left AV fistula Left forearm H/O tubal ligation During one of her deliveries. History of section, classical X2 History of coronary artery stent placement History of laparoscopic cholecystectomy (03/15/21) History of tonsillectomy and adenoidectomy Hx of myringotomy S/P dialysis catheter insertion Right internal jugular June 2019 status post removal September 2019 S/P lateral meniscal repair S/P PICC central line placement Now removed S/P
[2021-08-30] MEDS: BENZOCAINE (*SP) 60 ML SPRAY CAN (HURRICAINE) 1 SPRAY MUCOUS MEM (08:14)
--- NOTE | 2021-08-30 08:44 | SUR.OPER ---
EGD start 814 end 816, Colon start 824 end 842
[2021-08-30 08:51] VITALS: BP 139/51; PULSE 81; RESP 20; O2SAT 97
[2021-08-30 09:01] VITALS: BP 142/60; PULSE 85; RESP 20; O2SAT 96
[2021-08-30 09:11] VITALS: BP 159/61; PULSE 90; RESP 20; O2SAT 96
== END 2021-08-30 09:30 | disposition home or self-care (01) ==
PROVIDERS: PCP Internal Medicine; Visit Provider Internal Medicine Gastroenterology
PROC: 0DJ08ZZ Inspection of Upper Intestinal Tract, Via Natural or Artificial Opening Endoscopic (ICD-10-PCS; CPT 43235; principal; 2021-08-30 08:00)
DX: K57.32 Diverticulitis of large intestine without perforation or abscess without bleeding (principal); D12.2 Benign neoplasm of ascending colon; D12.3 Benign neoplasm of transverse colon; K64.8 Other hemorrhoids; K21.00 Gastro-esophageal reflux disease with esophagitis, without bleeding; R07.89 Other chest pain; K57.92 Diverticulitis of intestine, part unspecified, without perforation or abscess without bleeding; E11.43 Type 2 diabetes mellitus with diabetic autonomic (poly)neuropathy; N18.6 End stage renal disease; Z90.49 Acquired absence of other specified parts of digestive tract; Z86.73 Personal history of transient ischemic attack (TIA), and cerebral infarction without residual deficits; R60.1 Generalized edema; I25.10 Atherosclerotic heart disease of native coronary artery without angina pectoris; G93.5 Compression of brain; E11.22 Type 2 diabetes mellitus with diabetic chronic kidney disease; Z99.2 Dependence on renal dialysis; D63.1 Anemia in chronic kidney disease; K31.84 Gastroparesis; E78.5 Hyperlipidemia, unspecified; H47.10 Unspecified papilledema; N25.0 Renal osteodystrophy; Z95.5 Presence of coronary angioplasty implant and graft; F17.210 Nicotine dependence, cigarettes, uncomplicated; Z79.82 Long term (current) use of aspirin; Z79.4 Long term (current) use of insulin
CPT/HCPCS: 45385; 43235; 82948; 88305; J2704; J7040

== ENCOUNTER 2021-09-02 21:41 | Observation (INO) | payer OTHER, MEDICARE, MEDICAID, SELFPAY ==
--- NOTE | ~2021-09-02 | CT_ITS ---
EXAMINATION: CTA brain carotid DATE: 09/02/2021 23:32 INDICATION: Left upper extremity numbness. TECHNIQUE: Computed tomographic angiography (CTA) of the head was performed without and with 100 mL O mnipaque-350 intravenous contrast. CTA of the neck was performed with intravenous contrast. Automated exposure control and iterative reconstruction technique were employed. The dose-length product was 1 969.21 mGy-cm. Maximum intensity projection and volume rendered 3D-reconstructions were created by henry das technologist on a separate workstation. COMPARISON: Head CT 12/01/2020, brain MRI 12/21/2019 FINDINGS: HEAD CTA: The cerebellar tonsils extend 13 mm inferior to foramen magnum, consistent with Chiari I ma lformation. There are scattered areas of low attenuation in the cerebral white matter. There is no in tracranial hemorrhage, acute infarction, or abnormal intracranial mass lesion. The ventricles are nor mal in size. There are likely changes of ocular lens replacement surgeries. There is mild mucosal thi ckening in the paranasal sinuses. There is a trace right mastoid effusion. Left vertebral artery is d ominant. There is no significant stenosis of basilar artery or the posterior cerebral arteries. There is moderate stenosis of intracranial left internal carotid artery. There is no significant stenosis of the anterior or middle cerebral arteries. Anterior communicating artery is normal. The posterior c ommunicating arteries are normal. There is no aneurysm. NECK CTA: There are coronary artery calcifications. There are no pathologically enlarged lymph nodes. There is no significant stenosis of the vertebral arteries. There is plaque in the proximal internal carotid arteries. There is 0% stenosis of the proximal right internal carotid artery relative to nor mal distal artery lumen diameter (NASCET criteria). There is 0% stenosis of the proximal left interna l carotid artery relative to normal distal artery lumen diameter. There is extensive dental disease. There is mild cervical spondylosis. IMPRESSION: 1. Stable mild nonspecific cerebral white matter disease, which likely represents chronic small vesse l ischemic disease. 2. Chiari I malformation. 3. Moderate stenosis of intracranial left internal carotid artery. 4. 0% stenosis of the proximal internal carotid arteries relative to normal distal artery lumen diame ters (NASCET criteria). 5. Extensive dental disease. Reviewed, dictated and finalized at location A. N RESOURCES ADVISOR IMPRESSION: 1. Stable mild nonspecific cerebral white matter disease, which likely represen ts chronic small vessel ischemic disease. 2. Chiari I malformation. 3. Moderate stenosis of intracranial left internal carotid artery. 4. 0% stenosis of the proximal internal carotid arteries relative to normal dis julius artery lumen diameters (NASCET criteria). 5. Extensive dental disease.
--- NOTE | ~2021-09-02 | MR_ITS ---
EXAMINATION: MR brain/brain stem wo con DATE: 09/03/2021 11:03 INDICATION: Left upper extremity numbness. TECHNIQUE: Magnetic resonance imaging (MRI) of the brain and brainstem was performed without intraven ous contrast. Sequences included sagittal and axial T1-weighted FLAIR, axial T1-weighted FSE, axial d iffusion-weighted FS EPI, sagittal T2-weighted FLAIR, axial T2*-weighted GRE, axial T2-weighted FLAIR Propeller, and axial T2-weighted Propeller. Apparent diffusion coefficient (ADC) maps were created. COMPARISON: Head CT 09/02/2021, brain MRI 12/21/2019 FINDINGS: The cerebellar tonsils extend 15 mm inferior to foramen magnum, consistent with Chiari I ma lformation. There are scattered areas of nonspecific increased T2-weighted signal intensity in the ce rebral white matter and robinson. There is no intracranial hemorrhage, acute infarction, or abnormal intr acranial mass lesion. The ventricles are normal in size. There are likely changes of ocular lens repl acement surgeries. There is mild mucosal thickening in the paranasal sinuses. There is a small right mastoid effusion. IMPRESSION: 1. Mild nonspecific cerebral white matter disease and pontine disease with worsening in the robinson from 12/21/2019, which likely represents chronic small vessel ischemic disease. 2. Chiari I malformation. Reviewed, dictated and finalized at location A. SHOVELER IMPRESSION: 1. Mild nonspecific cerebral white matter disease and pontine disease with wors ening in the robinson from 12/21/2019, which likely represents chronic small vessel ischemic disease. 2. Chiari I malformation.
[2021-09-02 21:43] VITALS: BP 152/67; PULSE 94; RESP 16; TEMP 36.9; O2SAT 99
[2021-09-02 21:48] VITALS: BP 156/65; PULSE 87; RESP 20; TEMP 36.2; O2SAT 98
--- NOTE | 2021-09-02 21:49 | ECG_ITS ---
Measurements Intervals [place] Rate: 85 P: 52 OR: 199 QRS: -3 QRSD: 96 T: 18 QT: 376 QTc: 449 Interpretive Statements SINUS RHYTHM BASELINE ARTIFACT LEFT ATRIAL ENLARGEMENT [-0.15mV P WAVE IN V1/V2] CANNOT RULE OUT INFERIOR MYOCARDIAL INFARCTION , PROBABLY OLD [40+ ms Q WAVE IN V1/V2] MODERATE T-WAVE ABNORMALITY, CONSIDER LATERAL ISCHEMIA [-0.1+ mV T WAVE IN I/aVL/V5/V6] ABNORMAL ECG COMPARED TO ECG 04/22/2021 21:53:11 NO SIGNIFICANT CHANGES Electronically Signed On 09-03-2021 14:01:17 QUALITY CONTROL INDUSTRIAL ENGINEER by Surendra Barboza M.D.
[2021-09-02 21:53] LABS: Glucose Point of Care 181 mg/dl (65-105)
[2021-09-02 22:05] LABS: Basophils Absolute Auto 0.1 K/mm3 (0.0-0.1); Basophils Percent Auto 0.6 % (0.2-1.2); Eosinophils Absolute Auto 0.2 K/mm3 (0-0.3); Eosinophils Percent Auto 2.3 % (0-4.4); Hematocrit 36.2 % (37.0-47.0); Hemoglobin 11.6 g/dL (12.0-15.0); Immature Granulocyte Absolute 0.03 K/mm3 (0.00-0.031); Immature Granulocyte Percent A 0.3 % (0-0.5); Lymphocytes Absolute Auto 2.14 K/mm3 (0.9-3.2); Lymphocytes Percent Auto 24.2 % (18.3-44.2); Mean Corpuscular Volume 102.8 fl (80-100); Monocytes Absolute Auto 0.7 K/mm3 (0.1-0.6); Monocytes Percent Auto 7.9 % (2.6-8.5); Neutrophils Absolute Auto 5.7 K/mm3 (1.3-6.7); Neutrophils Percent Auto 64.7 % (45.5-73.1); Platelet Count Result 232 k/mm3 (150-375); Red Blood Count 3.52 M/mm3 (4.2-5.4); Red Cell Distribution Width 14.1 % (11.5-14.5); White Blood Count 8.8 K/mm3 (4.5-10.0)
[2021-09-02 22:15] LABS: INR 1.1; Prothrombin Time 13.3 Seconds (11.1-14.7)
[2021-09-02 22:16] LABS: Partial Thromboplastin Time 29.6 SECONDS (22.3-36.8)
[2021-09-02 23:27] LABS: Anion Gap 15 mmol/L (8-16); Blood Urea Nitrogen 53 mg/dL (7-17); Calcium 8.1 mg/dL (8.4-10.2); Carbon Dioxide 33 mmol/L (22-30); Chloride 89 mmol/L (98-107); Estimated CRCL calculation 9 ml/min; Estimated Glomerular Filt Rate 6; Glucose 167 mg/dL (65-110); Potassium 4.8 mmol/L (3.4-5.0); Sodium 137 mmol/L (137-145)
[2021-09-02 23:39] LABS: Troponin I 0.081 ng/mL (0.000-0.034)
[2021-09-03] VITALS (28 sets, daily range): BP systolic 122–153; BP diastolic 53–67; PULSE 64–95; RESP 12–20; TEMP 35.4–37; O2SAT 94–100
[2021-09-03] MEDS: ASPIRIN 81 MG CHEWABLE TABLET 324 MG PO (00:06)
--- NOTE | 2021-09-03 00:10 | ED.NEUROSD ---
HPI - Neuro Symptoms/Deficit General Chief Complaint: Neuro Symptoms/Deficit Stated Complaint: numbness to left arm, and itchy Time Seen by Provider: 09/02/21 21:47 Source: patient Mode of arrival: ambulatory Limitations: no limitations History of Present Illness HPI Narrative: Patient is a 40-year-old female complaining of left upper extremity numbness that started 4 hours prior to arrival. Patient denies any headache, dizziness, speech or visual disturbance, unsteady gait. Patient denies any chest pain, shortness of breath, abdominal pain, nausea, vomiting, diaphoresis, fever or chills. Patient states that she has a history of stroke in the past. Related Data Home Medications Medication Instructions Recorded Confirmed clopidogrel [Plavix] 75 mg PO DAILY 12/01/20 08/21/21 lisinopril 20 mg PO DAILY 12/01/20 08/21/21 amlodipine 5 mg PO DAILY 12/20/20 08/21/21 aspirin 81 mg PO DAILY 12/20/20 08/21/21 metoclopramide HCl 5 mg PO TIDWM 12/20/20 08/21/21 Basaglar KwikPen U-100 Insulin 10 unit SUBCUT HS 01/26/21 08/21/21 Thera-M 1 tablet PO DAILY 03/13/21 08/21/21 carvedilol 25 mg PO BID 03/13/21 08/21/21 furosemide 80 mg PO DAILY 03/13/21 08/21/21 sevelamer carbonate 800 mg PO TIDWM 03/13/21 08/21/21 Allergies Allergy/AdvReac Type Severity Reaction Status Date / Time No Known Drug Allergies Allergy Unknown Verified 09/02/21 22:01 Review of Systems Review of Systems: All systems reviewed & are unremarkable except as noted in HPI and below Constitutional: Constitutional: Denies body ache(s), Denies chills, Denies excessive sweating, Denies fatigue, Denies fever(s), Denies headache(s), Denies lethargy, Denies malaise, Denies weakness and Denies weight loss Eyes: Eyes: Denies blurry vision, Denies change in vision and Denies loss of vision ENT: Denies dizziness, Denies ear discharge, Denies headache(s), Denies lip swelling, Denies epistaxis, Denies nasal congestion, Denies neck pain, Denies throat swelling and Denies tongue swelling Cardiovascular: Cardiovascular: Denies chest pain, Denies chest pain at rest, Denies chest pain with activity, Denies diaphoresis, Denies rapid heart rate, Denies edema, Denies irregular heart rhythm, Denies lightheadedness, Denies palpitations, Denies dyspnea and Denies dyspnea on exertion Respiratory: Respiratory: Denies chest congestion, Denies cough, Denies hemoptysis, Denies dyspnea and Denies dyspnea on exertion Gastrointestinal: Gastrointestinal: Denies abdominal pain, Denies melena, Denies hematochezia, Denies diarrhea, Denies nausea, Denies vomiting and Denies hematemesis Musculoskeletal: Musculoskeletal: Denies abnormal gait, Denies deformity, Denies joint swelling, Denies limited range of motion, Denies neck pain and Denies numbness Neurologic: Denies Abnormal speech present, Denies abnormal gait, Denies confusion, Denies dizziness, Denies headache(s), Denies focal weakness, Denies loss of vision, Denies Other visual disturbances, Denies Sensory deficit (Neuro) and Denies weakness Psychiatric: Psychiatric: Denies confusion, Denies depression, Denies auditory hallucinations, Denies homicidal ideation and Denies suicidal ideation Endocrine: Endocrine: Denies cold intolerance, Denies excessive sweating, Denies fatigue, Denies heat intolerance and Denies palpitations Hematologic/Lymphatic: Hematologic/Lymphatic: Denies easy bleeding and Denies easy bruising Allergic/Immunologic: Allergic/Immunologic: Denies lip swelling, Denies throat swelling and Denies tongue swelling PMFSH Past Medical History Medical History Anasarca CAD (coronary artery disease) RCA stent placed in August 2020 CHF (congestive heart failure) Chiari I malformation Chronic osteomyelitis Status post toe amputations CVA (cerebral vascular accident) Small old lacunar infarct at the head of the right caudate nucleus. Dialysis patient Erythropoietin deficiency anemia Esoph
--- NOTE | 2021-09-03 00:58 | PM.IMHP ---
H&P: HPI History of Present Illness Date/Time: 09/03/21 00:58 Chief Complaint: Left upper extremity numbness Narrative: This is a 46-year-old female with past medical history significant for end-stage renal disease on hemodialysis Friday, hypertension, type 2 diabetes mellitus. Patient presents to the emergency room due to left upper extremity numbness and tingling sensation for over 5 hours duration prior to presenting to the hospital. Patient has been in her usual state of health she has been compliant with her hemodialysis treatments. Patient denies any vision changes, any headaches, any focal weakness, no fevers ,no rigors ,no chills ,no cough ,no sputum production, no nausea ,no vomiting ,no abdominal pain ,no syncope ,near syncope ,dizziness no visual field defects. Preliminary workup has been essentially nonrevealing. Patient has been admitted for further evaluation management and treatment. Review of Systems Review of Systems: Left upper extremity numbness and tingling sensation. Constitutional: Constitutional: Denies chills, Denies fatigue, Denies fever(s), Denies malaise, Denies night sweats and Denies weakness Eyes: Eyes: Denies change in vision and Denies loss of vision ENT: Denies dysphagia, Denies vertigo, Denies dizziness, Denies nasal congestion, Denies nasal discharge, Denies nasal obstruction and Denies odynophagia Cardiovascular: Cardiovascular: Denies syncope, Denies pedal edema, Denies irregular heart rhythm, Denies leg edema, Denies lightheadedness, Denies radiating jaw, neck or arm pain, Denies palpitations, Denies dyspnea on exertion and Denies orthopnea Respiratory: Respiratory: Denies chest congestion, Denies cough, Denies excessive phlegm production, Denies dyspnea and Denies wheezing Gastrointestinal: Gastrointestinal: Denies abdominal pain, Denies dyspepsia, Denies heartburn, Denies diarrhea, Denies nausea and Denies vomiting Genitourinary: Genitourinary: Denies flank pain Musculoskeletal: Musculoskeletal: Denies arthralgias, Denies joint swelling, Reports limited range of motion (Left ankle), Denies muscle weakness, Reports numbness and Reports tingling Comments: Left upper extremity Integumentary/Breasts: Skin/Breast: Reports rash (Left forearm) Neurologic: Denies focal weakness, Denies Sensory deficit (Neuro), Reports tingling and Reports paresthesias Psychiatric: Psychiatric: Reports no additional psychiatric complaints and Reports as per HPI Endocrine: Endocrine: Denies cold intolerance, Denies heat intolerance, Denies polyphagia, Denies polydipsia, Denies polyuria and Denies palpitations Hematologic/Lymphatic: Hematologic/Lymphatic: Reports no additional hematologic/lymphatic complaints and Reports as per HPI Allergic/Immunologic: Allergic/Immunologic: Reports no additional allergic/immunologic complaints and Reports as per HPI PMFSH Past Medical History Medical History Anasarca CAD (coronary artery disease) RCA stent placed in August 2020 CHF (congestive heart failure) Chiari I malformation Chronic osteomyelitis Status post toe amputations CVA (cerebral vascular accident) Small old lacunar infarct at the head of the right caudate nucleus. Dialysis patient Erythropoietin deficiency anemia Esophagitis determined by endoscopy EGD December 2019 ESRD (end stage renal disease) on dialysis On hemodialysis since June 2019 Gastroparesis due to DM Hyperlipidemia Papilledema Renal osteodystrophy Surgical History Surgical History Amputation of toe Two on the left AV fistula Left forearm H/O tubal ligation During one of her deliveries. History of section, classical X2 History of coronary artery stent placement History of laparoscopic cholecystectomy (03/15/21) History of tonsillectomy and adenoidectomy Hx of myringotomy S/P dialysis catheter in
[2021-09-03 01:00] LABS: Glucose Point of Care 181 mg/dl (65-105)
[2021-09-03 01:26] LABS: Troponin I 0.077 ng/mL (0.000-0.034)
--- NOTE | 2021-09-03 01:45 | ADMGEN ---
This patient, Pamela Bhat, was admitted to IMU Room 200-01. Patient/family oriented to hospital policies and general routines including ID bracelet, bed and alarms, visiting hours, pain management, procedures, bathroom and other care routines, personal items, smoking policy, room service/diet, and visiting hours. Information on how to activate the Rapid Response Team has been discussed. Patient/Family are encouraged to report perceived risks to care and to ask questions if they do not understand what they are told or what they should do.
[2021-09-03] MEDS: ACETAMINOPHEN 325 MG TABLET PO (03:36)
[2021-09-03 04:49] LABS: Troponin I 0.073 ng/mL (0.000-0.034)
[2021-09-03] MEDS: KETOROLAC 0.5% OP SOLN 5 ML BOTTLE 1 DROP LEFT EYE (07:46)
[2021-09-03] MEDS: FUROSEMIDE 40 MG TABLET 120 MG PO ×2 (07:46→16:38)
[2021-09-03] MEDS: PANTOPRAZOLE 40 MG TABLET PO (07:46)
[2021-09-03] MEDS: ASPIRIN 81 MG ENTERIC TABLET PO (07:47)
[2021-09-03] MEDS: lisinopriL 20 MG TABLET PO (07:47)
[2021-09-03] MEDS: METOCLOPRAMIDE HCL 5 MG TABLET PO ×3 (07:47→16:38)
[2021-09-03] MEDS: carvediloL 25 MG TABLET PO (07:47)
[2021-09-03] MEDS: THERAPEUTIC MULTIVITAMINS/MINERALS TAB (*BKC) 1 TABLET PO (07:47)
[2021-09-03] MEDS: CLOPIDOGREL BISULFATE 75 MG TABLET PO (07:47)
[2021-09-03] MEDS: FLUDROCORTISONE ACETATE 0.1 MG TABLET PO (07:47)
[2021-09-03] MEDS: SEVELAMER CARBONATE 800 MG TABLET 1600 MG PO ×3 (07:48→16:38)
[2021-09-03] MEDS: INSULIN ASPART (*BKC) 100 UNITS/ML 7 UNITS SUB-Q ×2 (08:37→13:05)
[2021-09-03 08:38] LABS: Glucose Point of Care 206 mg/dl (65-105)
[2021-09-03 10:05] LABS: HIV 1/2 Ab P24 Ag Result Negative (Negative)
[2021-09-03 10:30] LABS: Folic Acid 8.4 ng/mL (2.76->20)
--- NOTE | 2021-09-03 11:48 | PC.NURSE ---
1145-spoke with dr. daily(nephrology) regarding dialysis for pt. Expecting call back from [facility].
--- NOTE | 2021-09-03 12:02 | WPDNEURCNPN ---
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 End-stage renal disease for which patient is on hemodialysis on Wednesdays and Fridays 2. Hypertension 3. Diabetes mellitus type 2 4. Congestive heart failure 5. Chiari 1 malformation 6. History of lacunar infarct over the right caudate nucleus in the past. History of smoking 24 years pack years of 6 and current everyday smoker though not alcohol intake her Review of Systems Review of Systems: All systems reviewed & are unremarkable except as noted in HPI and below PMFSH Past Medical History Medical History Anasarca CAD (coronary artery disease) RCA stent placed in August 2020 CHF (congestive heart failure) Chiari I malformation Chronic osteomyelitis Status post toe amputations CVA (cerebral vascular accident) Small old lacunar infarct at the head of the right caudate nucleus. Dialysis patient Erythropoietin deficiency anemia Esophagitis determined by endoscopy EGD December 2019 ESRD (end stage renal disease) on dialysis On hemodialysis since June 2019 Gastroparesis due to DM Hyperlipidemia Papilledema Renal osteodystrophy Surgical History Surgical History Amputation of toe Two on the left AV fistula Left forearm H/O tubal ligation During one of her deliveries. History of section, classical X2 History of coronary artery stent placement History of laparoscopic cholecystectomy (03/15/21) History of tonsillectomy and adenoidectomy Hx of myringotomy S/P dialysis catheter insertion Right internal jugular June 2019 status post removal September 2019 S/P lateral meniscal repair S/P PICC central line placement Now removed S/P rotator cuff repair Family History Family History Other Adopted Social History Social History Social History: She has 2 children and she lives with her of 28 years. She is on disability. Patient stated that she is down to 1/4pack cigarettes a day. She has smoked up to a pack of cigarettes per day since she was 16 years old. She denies any heavy alcohol use or illicit substance use. Primary care physician: Dr. Christiano Ocho[facility] Case Manager: Dr. Forbes Code status: Full code Healthcare power of environmental attorney: Smoking packs per day: 0.25 Smoking cigarettes per day: 5.0 Years smoked: 24 Smoking pack-years: 6.00 Smoking status: Current every day smoker Tobacco type: cigarettes Second hand tobacco smoke exposure: Yes Additional smoking assessment comments: Smoked 1 pack a day since 16. Currently at 0.25 pack per day Alcohol intake: never Substance use: never Substance use type: does not use Gender identity (if verbalized by the patient): Female Sexual Orientation (if Verbalized by the Patient): Straight or Heterosexual Spiritual care concerns: No Agree to blood products: Yes Meds Home Medications and Allergies Home Medications Medication Instructions Recorded Confirmed Type clopidogrel [Plavix] 75 mg PO DAILY 12/01/20 09/03/21 History lisinopril 20 mg PO DAILY 12/01/20 09/03/21 History aspirin 81 mg PO DAILY 12/20/20 09/03/21 History metoclopramide HCl 5 mg PO QID 12/20/20 09/03/21 History Thera-M 1 tablet PO DAILY 03/13/21 09/03/21 History carvedilol 25 mg PO BID 03/13/21 09/03/21 History furosemide 120 mg PO BID 03/13/21
[2021-09-03 12:06] LABS: Glucose Point of Care 143 mg/dl (65-105)
--- NOTE | 2021-09-03 15:16 | PM.IMPN ---
Progress Note: A&P Assessment and Plan (1) TIA (transient ischemic attack): Code(s): G45.9 - Transient cerebral ischemic attack, unspecified Status: Acute (2) End stage renal disease on dialysis: Code(s): N18.6 - End stage renal disease; Z99.2 - Dependence on renal dialysis Status: Acute (3) Insulin dependent diabetes mellitus: Status: Acute (4) GERD (gastroesophageal reflux disease): Code(s): K21.9 - Gastro-esophageal reflux disease without esophagitis Status: Acute (5) Gastroparesis due to DM: Code(s): E11.43 - Type 2 diabetes mellitus with diabetic autonomic (poly)neuropathy; K31.84 - Gastroparesis Status: Acute (6) Tobacco dependence: Code(s): F17.200 - Nicotine dependence, unspecified, uncomplicated Status: Chronic (7) Elevated troponin: Code(s): R77.8 - Other specified abnormalities of plasma proteins Status: Acute Additional Plan Patient presents with complaints of left upper extremity tingling. CTA of the head and neck shows stable mild nonspecific cerebral white matter disease and Chiari type 1 malformation. She had moderate stenosis of the intracranial left internal carotid artery as well as extensive dental disease. MRI of the brain shows mild nonspecific white matter disease and pontine disease that appears to be worsening over the past few years but no acute findings to suggest infarct. Baseline labwork was unrevealing. MCV was elevated but B12/folate was normal and HIV was negative. Troponins were mildly elevated but this is more for chronic finding for this patient probably related to her incisional disease. EKG showed possibly old inferior SC and moderate T-wave changes consider lateral ischemia but very similar findings to prior EKGs. She remained on aspirin and Plavix. Unclear why she is not on a statin. She has no allergies or myalgias from statin therapy. She was started on Lipitor. Plan for dialysis today since she did receive contrast. Her symptoms have resolved. Hopefully home this evening or tomorrow morning. Subjective Date/time seen: 09/03/21 15:16 Interval history: 46yo female with ESRD and diabetes here for left upper extremity numbness. Patient states her symptoms involve the left arm and left leg. No chest pain shortness of breath. Also says the left arm was pruritic as well. Symptoms have resolved. She has weakness in the arms and legs. Exam Narrative: AF 97.4 131/59 66 18 96% ra Gen - NARD Chest - CTA bilaterally, nml RR CV - RRR S1/S2. Telemetry showed no significant dysrhythmias. Abd - Soft, NT/ND, Positive BS Ext - No pedal edema. Thrill and a bruit in the left upper extremity PICC Neuro - Alert and oriented. Normal sensation to the upper extremity. Mild (5-/5) left upper extremity biceps strength when compared to the right Psych - Nml mood. odd affect Skin - Warm and dry Objective Data Vital Signs Vital Signs: Vital Signs - 24 hr 09/02/21 21:43 09/02/21 21:48 09/03/21 00:21 Temperature 98.4 F 97.2 F L Pulse Rate 94 87 82 Respiratory Rate 16 20 20 Blood Pressure 152/67 H 156/65 H 153/65 H Pulse Oximetry 99 98 95 09/03/21 01:37 09/03/21 01:41 09/03/21 02:00 Temperature 95.7 F L Pulse Rate 81 80 81 Respiratory Rate 15 20 Blood Pressure 149/58 H Pulse Oximetry 98 09/03/21 04:00 09/03/21 05:34 09/03/21 06:00 Temperature 97.0 F L Pulse Rate 81 78 95 Respiratory Rate 15 18 Blood Pressure 144/67 H Pulse Oximetry 94 09/03/21 07:47 09/03/21 08:00 09/03/21 12:00 Temperature 98.0 F 97.4 F L Pulse Rate 88 78 66 Respiratory Rate 18 18 Blood Pressure 148/53 H 131/59 L Pulse Oximetry 95 96 Intake/Output Intake/Output: Intake & Output 08/31/21 09/01/21 09/02/21 09/03/21 23:59 23:59 23:59 23:59 Intake Total 970 Output Total 200 Balance 770 Meds/Results Medications: Active Medications Generic Name Dose Route Start Last Admin
[2021-09-03] MEDS: ATORVASTATIN 40 MG TABLET PO (16:38)
[2021-09-03 16:59] LABS: Glucose Point of Care 80 mg/dl (65-105)
--- NOTE | 2021-09-03 18:28 | PC.NURSE ---
Addendum entered by Jennifer Copeland RN 09/03/21 18:32: 1600-pt denies numbness or tingling in left arm and leg Original Note: 1620-pt transferred via bed up to dialysis room 308. 1640-called dr. costa to inform that pt's ride will be here around 1999 for pt's discharge.
--- NOTE | 2021-09-03 19:46 | PM.DS ---
DS: Admitting Diagnosis Discharge Date 09/03/21 Admitting Diagnosis Left arm numbness DS: Discharge Diagnosis Discharge Diagnosis (1) TIA (transient ischemic attack): Code(s): G45.9 - Transient cerebral ischemic attack, unspecified Status: Acute (2) End stage renal disease on dialysis: Code(s): N18.6 - End stage renal disease; Z99.2 - Dependence on renal dialysis Status: Acute (3) Insulin dependent diabetes mellitus: Status: Acute (4) GERD (gastroesophageal reflux disease): Code(s): K21.9 - Gastro-esophageal reflux disease without esophagitis Status: Acute (5) Gastroparesis due to DM: Code(s): E11.43 - Type 2 diabetes mellitus with diabetic autonomic (poly)neuropathy; K31.84 - Gastroparesis Status: Acute (6) Tobacco dependence: Code(s): F17.200 - Nicotine dependence, unspecified, uncomplicated Status: Chronic (7) Elevated troponin: Code(s): R77.8 - Other specified abnormalities of plasma proteins Status: Acute DS: Summary Hospital Course Reason for hospitalization: 46yo female with ESRD and diabetes here for left upper extremity numbness. Please see H&P for details Hospital Course: Patient presents with complaints of left upper extremity tingling. CTA of the head and neck shows stable mild nonspecific cerebral white matter disease and Chiari type 1 malformation. She had moderate stenosis of the intracranial left internal carotid artery as well as extensive dental disease. MRI of the brain shows mild nonspecific white matter disease and pontine disease that appears to be worsening over the past few years but no acute findings to suggest infarct. Baseline labwork was unrevealing. MCV was elevated but B12/folate was normal and HIV was negative. Troponins were mildly elevated but this seems to be more for chronic finding for this patient probably related to her renal disease. EKG showed possibly old inferior [place] and moderate T-wave changes consider lateral ischemia but very similar findings to prior EKGs. She remained on aspirin and Plavix. Unclear why she is not on a statin. She has no allergies or myalgias from statin therapy. She was started on Lipitor. Plan for dialysis today since she did receive contrast. Her symptoms have resolved. She overall did well and was discharged home after dialysis. Status at Discharge Cognitive/behavioral status at discharge: Stable Time Spent with Patient Time attestation: Total time spent providing and/or coordinating discharge services: 35 minutes Time spent: Greater than 30 minutes Exam Narrative: AF 97.4 131/59 66 18 96% ra Gen - NARD Chest - CTA bilaterally, nml RR CV - RRR S1/S2. Telemetry showed no significant dysrhythmias. Abd - Soft, NT/ND, Positive BS Ext - No pedal edema. Thrill and a bruit in the left upper extremity PICC Neuro - Alert and oriented. Normal sensation to the upper extremity. Mild (5-/5) left upper extremity biceps strength when compared to the right Psych - Nml mood. odd affect Skin - Warm and dry DS: Data Data Completed and Pending Labs on day of discharge: Labs from last 24 hours 09/03/21 09/03/21 09/03/21 16:18 12:00 08:48 WBC RBC Hgb Hct MCV MCH MCHC RDW Plt Count MPV Immature Gran % (Auto) Neut % (Auto) Lymph % (Auto) Divide % (Auto) Eos % (Auto) Baso % (Auto) Lymph # (Auto) Divide # (Auto) Eos # (Auto) Baso # (Auto) Abs Immat Gran (auto) Absolute Neuts (auto) Absolute Nucleated RBC Nucleated RBC % PT INR APTT Sodium Potassium Chloride Carbon Dioxide Anion Gap BUN Creatinine Estim Creat Clear Calc Estimated GFR Glucose POC Capillary Glucose 80 143 H Calcium Troponin I Vitamin B12 Folate HIV 1&2 Ab/P24 Ag 4thGn Negative 09/03/21 09/03/21 09/03/21 08:48 08:34 04:08 WBC RBC Hgb H
[2021-09-03 19:52] LABS: Glucose Point of Care 87 mg/dl (65-105)
== END 2021-09-03 20:15 | disposition home or self-care (01) ==
LOC: ANHED 22:32 → ANHIMU 09-03 01:56
PROVIDERS: Admitting Provider Internal Medicine; Emergency Provider Emergency Medicine; PCP Internal Medicine; Visit Provider Internal Medicine
DX: G45.9 Transient cerebral ischemic attack, unspecified (principal); G81.94 Hemiplegia, unspecified affecting left nondominant side; I13.2 Hypertensive heart and chronic kidney disease with heart failure and with stage 5 chronic kidney disease, or end stage renal disease; N18.6 End stage renal disease; Z99.2 Dependence on renal dialysis; F17.210 Nicotine dependence, cigarettes, uncomplicated; E78.5 Hyperlipidemia, unspecified; E11.22 Type 2 diabetes mellitus with diabetic chronic kidney disease; E11.43 Type 2 diabetes mellitus with diabetic autonomic (poly)neuropathy; G93.5 Compression of brain; I50.9 Heart failure, unspecified; I25.10 Atherosclerotic heart disease of native coronary artery without angina pectoris; K31.84 Gastroparesis; K21.9 Gastro-esophageal reflux disease without esophagitis; N25.0 Renal osteodystrophy; R77.8 Other specified abnormalities of plasma proteins; Z86.73 Personal history of transient ischemic attack (TIA), and cerebral infarction without residual deficits; Z95.1 Presence of aortocoronary bypass graft; Z89.422 Acquired absence of other left toe(s); Z79.4 Long term (current) use of insulin; Z79.82 Long term (current) use of aspirin; Z79.02 Long term (current) use of antithrombotics/antiplatelets; Z90.49 Acquired absence of other specified parts of digestive tract
CPT/HCPCS: 36415; 70496; 70498; 70551; 80048; 82607; 82746; 82948; 84484; 85025; 85610; 85730; 86703; 93005; 99285; A9270; G0257; G0378; G0432; J1815; J7030; Q9967

== ENCOUNTER 2021-10-02 12:03 | Inpatient (IN) | payer OTHER, MEDICARE, MEDICAID, SELFPAY ==
[2021-10-02] VITALS (8 sets, daily range): BP systolic 144–187; BP diastolic 44–84; PULSE 83–105; RESP 11–31; O2SAT 93–100
--- NOTE | ~2021-10-02 | XR_ITS ---
EXAMINATION: XR chest 2V EXAM DATE: 10/02/2021 12:28 INDICATION: Sharp left upper chest pain. TECHNIQUE: Frontal and lateral projections of the chest obtained and reviewed. Comparison is made to prior examination from 04/22/2021. FINDINGS: The lungs are clear. There are no pleural effusions. Mild cardiomegaly. There is no pneumo thorax suspected. The bones and soft tissues are unremarkable. IMPRESSION: Mild cardiomegaly, unchanged. Reviewed, dictated and finalized at location A.
--- NOTE | 2021-10-02 12:06 | ECG_ITS ---
Measurements Intervals [place] Rate: 103 P: 77 FL: 140 QRS: 46 QRSD: 120 T: -20 QT: 357 QTc: 469 Interpretive Statements SINUS TACHYCARDIA MODERATE INTRAVENTRICULAR CONDUCTION DELAY [110+ ms QRS DURATION] ST DEVIATION AND MODERATE T-WAVE ABNORMALITY, CONSIDER LATERAL ISCHEMIA [-0.1+ mV T- WAVE IN I/aVL/V5/V6] COMPARED TO ECG 09/02/2021 21:55:37 SINUS TACHYCARDIA NOW PRESENT INTRAVENTRICULAR CONDUCTION DELAY NOW PRESENT Electronically Signed On 10-02-2021 16:29:47 CDT by Kandace Fulton M.D.
--- NOTE | 2021-10-02 12:38 | ED.CHESTPAIN ---
HPI - Chest Pain General Chief Complaint: Chest Pain Stated Complaint: chest pain, missed dialysis Time Seen by Provider: 10/02/21 12:38 Source: patient and EMS Mode of arrival: EMS Limitations: no limitations History of Present Illness HPI narrative: The patient is a 46-year-old female with a past medical history of insulin-dependent diabetes, end-stage renal disease on Friday hemodialysis, coronary artery disease, presenting to the emergency department for evaluation of chest pain, shortness of breath. Patient states that she had sudden onset of chest pain approximately 1 hour ago while she was sitting at home. Pain is in the center of her chest described as sharp in nature without radiation to the jaw, neck, shoulder. She reports no significant ripping or tearing sensation to the lower flanks, back or lower abdomen. Initially when the pain began, she reported nausea, diaphoresis, shakiness. Patient states that that has all resolved aside from the chest pain. Patient states that she did miss her dialysis session yesterday because she was having an surgery on her right eye to repair bleeding behind the eye. Patient denies any current eye pain, visual changes. No discharge from the eye. No headache. She denies any significant shortness of breath currently. She denies any lower extremity edema. Patient does smoke. She last had a cardiac catheterization in February [address] Potter. She has been compliant with her medications. Otherwise, patient was readmitted for chest pain in March 2021, ultimately troponin is not elevated and she was discharged home. Patient was given an aspirin in route by EMS. Denies receiving any other medications. Related Data Home Medications Medication Instructions Recorded Confirmed clopidogrel [Plavix] 75 mg PO DAILY 12/01/20 09/03/21 lisinopril 20 mg PO DAILY 12/01/20 09/03/21 aspirin 81 mg PO DAILY 12/20/20 09/03/21 metoclopramide HCl 5 mg PO QID 12/20/20 09/03/21 Thera-M 1 tablet PO DAILY 03/13/21 09/03/21 carvedilol 25 mg PO BID 03/13/21 09/03/21 furosemide 120 mg PO BID 03/13/21 09/03/21 sevelamer carbonate 1,600 mg PO TIDWM 03/13/21 09/03/21 Lantus Solostar U-100 Insulin 10 unit SUBCUT HS 09/03/21 09/03/21 fludrocortisone 0.1 mg PO DAILY 09/03/21 09/03/21 insulin lispro [Humalog KwikPen 7 unit SUBCUT TIDWM 09/03/21 09/03/21 Insulin] ketorolac 1 drp LEFT EYE DAILY 09/03/21 09/03/21 pantoprazole 40 mg PO DAILY 09/03/21 09/03/21 Allergies Allergy/AdvReac Type Severity Reaction Status Date / Time No Known Drug Allergies Allergy Unknown Verified 10/02/21 12:13 Review of Systems Review of Systems: CONSTITUTIONAL: Denies fever, chills, or sweats currently. EYES: Denies visual changes, redness, or discharge. ENT: Denies rhinorrhea, congestion, sore throat, or otalgia. CARDIOVASCULAR: Reports chest pain, denies palpitations, or edema. RESPIRATORY: Denies cough or dyspnea. Reports dyspnea earlier when the chest pain began is now resolved. GASTROINTESTINAL: Denies abdominal pain, nausea, vomiting, or diarrhea. GENITOURINARY: Denies dysuria or hematuria. SKIN: Denies rash or itching. MUSCULOSKELETAL: Denies back pain, joint pain, or myalgia. NEUROLOGIC: Denies headache, numbness, or weakness. [facility] Past Medical History Medical History Anasarca CAD (coronary artery disease) RCA stent placed in August 2020 CHF (congestive heart failure) Chiari I malformation Chronic osteomyelitis Status post toe amputations CVA (cerebral vascular accident) Small old lacunar infarct at the head of the right caudate nucleus. Dialysis patient Erythropoietin deficiency anemia Esophagitis determined by endoscopy EGD December 2019 ESRD (end stage renal disease) on dialysis On hemodialysis since June 2019 Gastroparesis due to DM Hyperlipidemia Papilledema Renal osteodystrophy Surgical History Surgical History (Reviewed
--- NOTE | 2021-10-02 12:50 | ECG_ITS ---
Measurements Intervals [place] Rate: 93 P: 54 OR: 172 QRS: 23 QRSD: 115 T: -53 QT: 381 QTc: 476 Interpretive Statements SINUS RHYTHM POSSIBLE LEFT ATRIAL ENLARGEMENT [-0.1mV P WAVE IN V1/V2] ST-ELEVATION IS NOW PRESENT IN LEAD 3, WITH MORE SIGNIFICANT ST DEPRESSION IN LEADS 1 AND AVL, CONSIDER ACUTE INFERIOR MYOCARDIAL INFARCTION MODERATE INTRAVENTRICULAR CONDUCTION DELAY [105+ ms QRS DURATION, 80+ ms Q/S IN V1/V2, NO Q AND 60+ ms R IN I/aVL/V5/V6] ST DEVIATION AND MODERATE T-WAVE ABNORMALITY, CONSIDER LATERAL ISCHEMIA [-0.1+ mV T WAVE IN I/aVL/V5/V6] ST DEVIATION AND MODERATE T-WAVE ABNORMALITY, CONSIDER INFERIOR ISCHEMIA [-0.1+ mV T WAVE IN II/aVF] COMPARED TO ECG 10/02/2021 12:08:[address]-ELEVATION AND LATERAL ISCHEMIC CHANGES ARE NOW PRESENT Electronically Signed On 10-02-2021 16:32:25 CDT by Kandace Fulton M.D.
[2021-10-02] MEDS: NITROGLYCERIN SL 0.4 MG TABLET SUBLINGUAL (12:52)
--- NOTE | 2021-10-02 13:04 | PC.NURSE ---
no relief with (1) nitro, second given at this time
[2021-10-02] MEDS: MORPHINE SULFATE (*CRX) 4 MG/ML INJ IV PUSH (13:24)
[2021-10-02] MEDS: ONDANSETRON INJ 4 MG/2 ML VIAL IV PUSH (13:24)
[2021-10-02 13:33] LABS: Basophils Absolute Auto 0.1 K/mm3 (0.0-0.1); Basophils Percent Auto 0.6 % (0.2-1.2); Eosinophils Absolute Auto 0.1 K/mm3 (0-0.3); Eosinophils Percent Auto 0.8 % (0-4.4); Hematocrit 36.9 % (37.0-47.0); Hemoglobin 11.8 g/dL (12.0-15.0); Immature Granulocyte Absolute 0.02 K/mm3 (0.00-0.031); Immature Granulocyte Percent A 0.2 % (0-0.5); Lymphocytes Absolute Auto 1.24 K/mm3 (0.9-3.2); Mean Corpuscular Hemoglobin 32.1 pg (26-34); Mean Corpuscular Volume 100.3 fl (80-100); Mean Platelet Volume 10.4 fl (7.4-10.4); Monocytes Absolute Auto 0.5 K/mm3 (0.1-0.6); Monocytes Percent Auto 5.6 % (2.6-8.5); Neutrophils Absolute Auto 6.4 K/mm3 (1.3-6.7); Neutrophils Percent Auto 77.8 % (45.5-73.1); Platelet Count Result 212 k/mm3 (150-375); Red Blood Count 3.68 M/mm3 (4.2-5.4); Red Cell Distribution Width 13.5 % (11.5-14.5); White Blood Count 8.3 K/mm3 (4.5-10.0)
[2021-10-02 13:43] LABS: INR 1.1; Prothrombin Time 14.2 Seconds (11.1-14.7)
[2021-10-02 13:44] LABS: Partial Thromboplastin Time 29.7 SECONDS (22.3-36.8)
[2021-10-02 13:45] LABS: Alanine Aminotransferase 16 U/L (4-35); Albumin Level 4.2 g/dL (3.5-5.1); Alkaline Phosphatase 134 U/L (38-126); Anion Gap 18 mmol/L (8-16); Aspartate Amino Transferase 21 U/L (14-36); Bilirubin,Total 0.5 mg/dL (0.2-1.3); Blood Urea Nitrogen 78 mg/dL (7-17); Calcium 8.2 mg/dL (8.4-10.2); Carbon Dioxide 30 mmol/L (22-30); Chloride 87 mmol/L (98-107); Estimated CRCL calculation 7 ml/min; Estimated Glomerular Filt Rate 4; Glucose 426 mg/dL (65-110); Lipase 132 U/L (23-300); Potassium 5.5 mmol/L (3.4-5.0); Sodium 135 mmol/L (137-145)
[2021-10-02] MEDS: HEPARIN SODIUM 5,000 UNITS/ML VIAL 4000 UNITS IV PUSH (13:49)
[2021-10-02 14:08] LABS: Troponin I 0.101 ng/mL (0.000-0.034)
--- NOTE | 2021-10-02 15:02 | ECG_ITS ---
Measurements Intervals [place] Rate: 91 P: 71 [place]: 168 QRS: 36 QRSD: 110 T: 10 QT: 387 QTc: 477 Interpretive Statements SINUS RHYTHM POSSIBLE LEFT ATRIAL ENLARGEMENT [-0.1mV P WAVE IN V1/V2] NONSPECIFIC ST & T-WAVE ABNORMALITY COMPARED TO ECG 10/02/2021 13:01:[address] ELEVATION IN LEAD 3 IS LESS PROMINENT, BUT THE ISCHEMIC CHANGES IN V 4 THROUGH V6 ARE MORE PRONOUNCED. Electronically Signed On 10-02-2021 16:52:51 CDT by Kandace Fulton M.D.
--- NOTE | 2021-10-02 15:07 | WPDCARDPROC ---
Cardiac Cath Procedure Note Date of procedure:: 10/02/21 Performing physician:: Edward Potter MD Indication:: Acute coronary syndrome Brief clinical history:: this is a 46-year-old woman known to have coronary artery disease with interventional revascularization of the long segment of the right coronary artery 3 times in 2020. Long length of the vessel was stented at another hospital. She presented here in February of that year with chest pain in had a focal mid RCA stenosis balloon dilated. She then had this region treated with laser and stenting at another hospital in April of last year. Patient is a renal failure patient on dialysis. 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 ECG initially was largely unremarkable her subsequent tracing did show some mild ST elevation in lead 3 prompting recommendation for emergency angiography. Patient appears to be relatively comfortable at this time but is reporting mild residual central chest discomfort. Procedure Procedure performed:: emergency coronary angiogram implantation of intra-aortic balloon pump Sedation/Medication given:: no sedation Access site:: right femoral artery Estimated blood loss:: 30 cc Procedure note:: patient was brought to the cardiac catheterization lab in the emergency setting and the right femoral triangle was prepared and draped in the normal fashion. Anesthesia was provided with 1% lidocaine infiltrated locally. Using modified Seldinger technique a 6 [place] sheath was placed into the right common femoral artery after this I used a 6 [place] JR4 guiding catheter to engage and inject the right coronary artery in multiple projections. Following this I used a 5 [place] FL4 diagnostic catheter to engage and inject the left coronary artery in multiple projections. Following this the cineangiograms were then reviewed. I elected to place an intra-aortic balloon pump through the access site. The balloon pump wire was placed into the aorta the sheath was removed and intra-aortic balloon pump sheath was then placed over the wire. The intra-aortic balloon pump was then advanced under fluoroscopic visualization into the proximal descending thoracic aorta. The balloon pump was connected to the console and 1-1 counterpulsation augmentation was initiated. The patient was then started on a heparin infusion at 1000 units/hour the patient had received 4000 unit heparin bolus in the emergency room. Procedure was then terminated she was taken to the ICU for further management and preparations for transfer to higher level of care for either surgical or high-risk PCI revascularization. Findings:: Hemodynamics: Central aortic pressure was 162/82. The left ventricle was not entered during this procedure the left main coronary artery is a moderate caliber proximally. There is a hazy stenosis in the distal left main that is at least 60-70% left anterior descending the LAD is a moderate caliber artery extending down to the apex. The LAD has a high-grade 95% stenosis in its ostial segment extending from the left main disease described above. The area was not diseased on previous angiograms done in this hospital. The midportion of the LAD has mild diffuse disease of about 50% to 60% stenosis. The apical portion of the LAD is angiographically small but mildly diseased. The circumflex is a medium caliber artery giving rise to a proximal obtuse marginal branch which has mild diffuse disease the trunk of the circumflex has about 70-80% stenosis after which the distal posterior portion of the circumflex is small but without significant disease. The right coronary artery is moderate to large caliber dominant to the posterior circulation. the RCA has previously placed stent material from the proximal segment down to the 3rd portion of the vessel. The 2nd portion of the RCA has 2 layers of stent mater
--- NOTE | 2021-10-02 15:30 | ADMGEN ---
This patient, Pamela Bhat, was admitted to Intensive Care Unit-10. Patient/family oriented to hospital policies and general routines including ID bracelet, bed and alarms, visiting hours, pain management, procedures, bathroom and other care routines, personal items, smoking policy, room service/diet, and visiting hours. Information on how to activate the Rapid Response Team has been discussed. Patient/Family are encouraged to report perceived risks to care and to ask questions if they do not understand what they are told or what they should do.
[2021-10-02] MEDS: HEPARIN SOD/D5W 100 UNITS/ML 25,000 UNITS/250 ML BAG 10 UNITS IV CONT (15:33)
--- NOTE | 2021-10-02 15:42 | PM.IMHP ---
H&P: HPI History of Present Illness Date/Time: 10/02/21 15:42 Chief Complaint: chest pain PMFSH Past Medical History Medical History Anasarca CAD (coronary artery disease) RCA stent placed in August 2020 CHF (congestive heart failure) Chiari I malformation Chronic osteomyelitis Status post toe amputations CVA (cerebral vascular accident) Small old lacunar infarct at the head of the right caudate nucleus. Dialysis patient Erythropoietin deficiency anemia Esophagitis determined by endoscopy EGD December 2019 ESRD (end stage renal disease) on dialysis On hemodialysis since June 2019 Gastroparesis due to DM Hyperlipidemia Papilledema Renal osteodystrophy Surgical History Surgical History Amputation of toe Two on the left AV fistula Left forearm H/O tubal ligation During one of her deliveries. History of section, classical X2 History of coronary artery stent placement History of laparoscopic cholecystectomy (03/15/21) History of tonsillectomy and adenoidectomy Hx of myringotomy S/P dialysis catheter insertion Right internal jugular June 2019 status post removal September 2019 S/P lateral meniscal repair S/P PICC central line placement Now removed S/P rotator cuff repair Family History Family History Other Adopted Social History Social History Social History: She has 2 children and she lives with her of 28 years. She is on disability. Patient stated that she is down to 1/4pack cigarettes a day. She has smoked up to a pack of cigarettes per day since she was 16 years old. She denies any heavy alcohol use or illicit substance use. Primary care physician: Dr. Christiano Ochoa Digital Music Instructor: Dr. Forbes Code status: Full code Healthcare power of contract attorney: Smoking packs per day: 0.25 Smoking cigarettes per day: 5.0 Years smoked: 24 Smoking pack-years: 6.00 Smoking status: Current every day smoker Tobacco type: cigarettes Second hand tobacco smoke exposure: Yes Additional smoking assessment comments: Smoked 1 pack a day since 16. Currently at 0.25 pack per day Alcohol intake: never Substance use: never Substance use type: does not use Gender identity (if verbalized by the patient): Female Sexual Orientation (if Verbalized by the Patient): Straight or Heterosexual Spiritual care concerns: No Agree to blood products: Yes Meds Home Medications and Allergies Home Medications Medication Instructions Recorded Confirmed Type clopidogrel [Plavix] 75 mg PO DAILY 12/01/20 09/03/21 History lisinopril 20 mg PO DAILY 12/01/20 09/03/21 History aspirin 81 mg PO DAILY 12/20/20 09/03/21 History metoclopramide HCl 5 mg PO QID 12/20/20 09/03/21 History Thera-M 1 tablet PO DAILY 03/13/21 09/03/21 History carvedilol 25 mg PO BID 03/13/21 09/03/21 History furosemide 120 mg PO BID 03/13/21 09/03/21 History sevelamer carbonate 1,600 mg PO TIDWM 03/13/21 09/03/21 History Lantus Solostar U-100 Insulin 10 unit SUBCUT HS 09/03/21 09/03/21 History atorvastatin 40 mg PO DAILY #30 tablet 09/03/21 Rx fludrocortisone 0.1 mg PO DAILY 09/03/21 09/03/21 History insulin lispro [Humalog KwikPen 7 unit SUBCUT TIDWM 09/03/21 09/03/21 History Insulin] ketorolac 1 drp LEFT EYE DAILY 09/03/21 09/03/21 History pantoprazole 40 mg PO DAILY 09/03/21 09/03/21 History Allergies Allergy/AdvReac Type Severity Reaction Status Date / Time No Known Drug Allergies Allergy Unknown Verified 10/02/21 12:13 Vital Signs Vital Signs - 24 hr 10/02/21 12:02 10/02/21 12:11 Pulse Rate 105 H Respiratory Rate 31 H Blood Pressure 163/76 H Pulse Oximetry 99 H&P: Results Labs Labs: Short CBC 10/02/21 Range/Units 13:21 WBC
--- NOTE | 2021-10-02 15:52 | PM.IMHP ---
H&P: HPI History of Present Illness Date/Time: 10/02/21 15:52 Chief Complaint: chest pain Narrative: this is a 46-year-old woman who is well known coronary artery disease being seen in the cardiac catheterization lab as she is being prepared for urgent angiography today. The patient reported having the onset of retrosternal pressure-like chest pain earlier today/early afternoon when she got home from a appointment with her tunnel kiln firer. She recognized the symptoms as very similar previous ischemic chest pain and came to the emergency room here for evaluation. In the emergency department she was treated with aspirin, nitrates and analgesics. She under 2nd ECG was noticed to have some ST elevation in lead 3 and request for urgent angiography was then made. She in the setting being brought to the cardiac catheterization lab she is reporting mild residual chest discomfort but appears to be otherwise relatively comfortable. The patient is known to have coronary disease diagnosed with this about a year ago. She underwent stenting of a long segment in the right coronary artery at [facility]. She then presented to [facility] in February of 2021 with recurrent chest discomfort and ACS. She was brought to the cardiac medical lab director here where she had subtotal stenosis in the 2nd portion of the RCA in the middle of the long of stent material. This was balloon dilated and evaluated with intravascular ultrasound. There was good patency following high-pressure balloon inflation the 2nd portion vessel. Despite that procedure she was re-evaluated in the medical lab director in April of 2021 at [facility] because of some dyspnea. She had new/ recurrent high-grade stenosis in the same area. At that time she received laser angioplasty followed by deployment of another stent that was dilated up to 3.5 mm. Since then she has done well until today and has been maintained on both aspirin and clopidogrel. The patient unfortunately has recurrent symptoms today and is being prepared for yet another angiogram. Review of Systems Review of Systems: ROS unobtainable: Yes unobtainable due to medical condition PMFSH Past Medical History Medical History Anasarca CAD (coronary artery disease) RCA stent placed in August 2020 CHF (congestive heart failure) Chiari I malformation Chronic osteomyelitis Status post toe amputations CVA (cerebral vascular accident) Small old lacunar infarct at the head of the right caudate nucleus. Dialysis patient Erythropoietin deficiency anemia Esophagitis determined by endoscopy EGD December 2019 ESRD (end stage renal disease) on dialysis On hemodialysis since June 2019 Gastroparesis due to DM Hyperlipidemia Papilledema Renal osteodystrophy Surgical History Surgical History Amputation of toe Two on the left AV fistula Left forearm H/O tubal ligation During one of her deliveries. History of section, classical X2 History of coronary artery stent placement History of laparoscopic cholecystectomy (03/15/21) History of tonsillectomy and adenoidectomy Hx of myringotomy S/P dialysis catheter insertion Right internal jugular June 2019 status post removal September 2019 S/P lateral meniscal repair S/P PICC central line placement Now removed S/P rotator cuff repair Family History Family History Other Adopted Social History Social History Social History: She has 2 children and she lives with her of 28 years. She is on disability. Patient stated that she is down to 1/4pack cigarettes a day. She has smoked up to a pack of cigarettes per day since she was 16 years old. She denies any heavy alcohol use or illicit substance use. Primary care physician: Dr. Christiano Ochoa Radial Saw Operator:
[2021-10-02] MEDS: LABETALOL HCL INJ 100 MG/20 ML VIAL 20 MG IV PUSH (16:07)
--- NOTE | 2021-10-03 16:09 | PCCPR ---
may need transfer to facility for CABG/ high degree PCI
--- NOTE | 2021-10-29 07:48 | PM.TDS ---
Transfer Discharge Sum: Prov Provider Date of admission: 10/02/21 14:04 Primary care physician: Christiano Ochoa, MD Admitting clinician: Edward Potter MD Attending physician on admission: Edward Potter Consults: 10/02/21 Consult to Physician Routine Comment: Consulting Provider: Edward Potter rn call center/MD group to consult: Nephrology Reason for consultation: dialysis Has provider been notified: Yes 10/02/21 15:02 Cardiopulmonary Rehabilitation Consult Routine Comment: Consult Plan: Evaluate for Eligibility Attending physician on discharge: Edward Potter Discharging clinician: Edward Potter Anticipated date of transfer: 10/02/21 Receiving physician/facility: [facility] DS: Admitting Diagnosis Discharge Date 10/02/21 Admitting Diagnosis Acute coronary syndrome DS: Discharge Diagnosis Discharge Diagnosis (1) Chest pain: Qualifiers: Chest pain type: unspecified Qualified Code(s): R07.9 - Chest pain, unspecified Code(s): R07.9 - Chest pain, unspecified Status: Acute Transfer Discharge Sum: Med Medications Active and Home Medications: Home Medications clopidogrel [Plavix] 75 mg PO DAILY 12/01/20 [History Confirmed 09/03/21] lisinopril 20 mg PO DAILY 12/01/20 [History Confirmed 09/03/21] aspirin 81 mg PO DAILY 12/20/20 [History Confirmed 09/03/21] metoclopramide HCl 5 mg PO QID 12/20/20 [History Confirmed 09/03/21] Thera-M 1 tablet PO DAILY 03/13/21 [History Confirmed 09/03/21] carvedilol 25 mg PO BID 03/13/21 [History Confirmed 09/03/21] furosemide 120 mg PO BID 03/13/21 [History Confirmed 09/03/21] sevelamer carbonate 1,600 mg PO TIDWM 03/13/21 [History Confirmed 09/03/21] Lantus Solostar U-100 Insulin 10 unit SUBCUT HS 09/03/21 [History Confirmed 09/03/21] atorvastatin 40 mg PO DAILY #30 tablet 09/03/21 [Rx] fludrocortisone 0.1 mg PO DAILY 09/03/21 [History Confirmed 09/03/21] insulin lispro [Humalog KwikPen Insulin] 7 unit SUBCUT TIDWM 09/03/21 [History Confirmed 09/03/21] ketorolac 1 drp LEFT EYE DAILY 09/03/21 [History Confirmed 09/03/21] pantoprazole 40 mg PO DAILY 09/03/21 [History Confirmed 09/03/21] Transfer Discharge Sum: Hosp Hospital Course Hospital course: Pamela Bhat is a 46 year old female with a known history of coronary artery disease who has undergone previous percutaneous revascularization in the right coronary artery on previous occasions. She presented [facility] with chest pain and evidence of acute coronary syndrome. She was brought to the cardiac catheterization lab where her right coronary artery was felt to be nicely patent. She had new high-grade stenosis however in the left main coronary artery. She was transferred from the cardiac catheterization lab to [facility] where she receives her cardiovascular care for higher level of care/revascularization as she now has significant left main disease. Time Spent with Patient Time attestation: Total time spent providing and/or coordinating transfer services: Exam Const: General: alert and awake HENMT: Head: normal to inspection Mouth: Yes Normal oral and palatal mucosa present Throat: posterior oropharynx normal Eyes: Sclera: sclerae normal Pupils: Equal, round and reactive pupils present Neck: Neck: no JVD Carotids: normal carotid upstroke Chest: Chest palpation & inspection: normal inspection of the chest Resp: Effort & Inspection: normal respiratory effort Auscultation: clear to auscultation bilaterally Cardio: Jugular venous distension: no JVD Palpation: normal PMI Rate: regular rate Rhythm: regular rhythm Heart sounds: Gallop heart sound present S4 gallop GI: Inspection: normal to inspection Auscultation: normal bowel sounds Skin: General skin exam: normal color Neuro: General: patient oriented x3 Extrem: General: normal to inspection
== END 2021-10-02 18:25 | disposition short-term general hospital (02) | DRG 270 ==
LOC: ANHED 12:57 → ANHICU 17:08 → ANHCATHLAB 10-04 08:23 → ANHICU 10-04 08:23
PROVIDERS: Emergency Medicine; Admitting Provider Specialist; Emergency Provider Emergency Medicine; PCP Internal Medicine; Visit Provider Specialist
PROC: 5A02210 Assistance with Cardiac Output using Balloon Pump, Continuous (ICD-10-PCS; CPT 93454; principal; 2021-10-02 14:30)
PROC: 5A02210 Assistance with Cardiac Output using Balloon Pump, Continuous (ICD-10-PCS; 2021-10-02 14:30)
DX: I25.10 Atherosclerotic heart disease of native coronary artery without angina pectoris (principal); N18.6 End stage renal disease; G93.5 Compression of brain; I24.9 Acute ischemic heart disease, unspecified; N18.9 Chronic kidney disease, unspecified; D63.1 Anemia in chronic kidney disease; E11.22 Type 2 diabetes mellitus with diabetic chronic kidney disease; E11.43 Type 2 diabetes mellitus with diabetic autonomic (poly)neuropathy; K31.84 Gastroparesis; Z99.2 Dependence on renal dialysis; N25.0 Renal osteodystrophy; E78.5 Hyperlipidemia, unspecified; I50.9 Heart failure, unspecified; F17.210 Nicotine dependence, cigarettes, uncomplicated; Z79.4 Long term (current) use of insulin; Z79.82 Long term (current) use of aspirin; Z79.899 Other long term (current) drug therapy; Z86.73 Personal history of transient ischemic attack (TIA), and cerebral infarction without residual deficits; Z95.5 Presence of coronary angioplasty implant and graft
CPT/HCPCS: 33967; 36415; 71046; 80053; 83690; 84484; 85025; 85610; 85730; 93005; 93454; 96374; 96375; 99291; A9270; C1887; C1894; J0583; J1644; J2250; J2270; J2405; J3010; J7030; J7040

== ENCOUNTER 2021-11-07 09:33 | Inpatient (IN) | payer OTHER, MEDICARE, MEDICAID, SELFPAY ==
[2021-11-07] VITALS (18 sets, daily range): BP systolic 125–153; BP diastolic 53–89; PULSE 74–96; RESP 2–39; TEMP 36.8–37.4; O2SAT 94–100; BMI 24.6
--- NOTE | ~2021-11-07 | CT_ITS ---
EXAMINATION: CT chest abdomen pelvis wo con DATE: 11/09/2021 12:18 INDICATION: Chest and abdominal pain TECHNIQUE: Transaxial computed tomographic images of the chest, abdomen, and pelvis were obtained wit hout intravenous contrast. The dose-length product (DLP) was 488.65 mGy-cm. Automated exposure contro l and iterative reconstruction technique were employed. COMPARISON: 03/23/2021 FINDINGS: CHEST CT: Cardiomegaly is noted. There are dependent airspace opacities lower lobes. There is no pneumothorax. There are trace pleural effusions. There is mild mediastinal lymphadenopathy. There is mild thoracic spondylosis. There are changes of median sternotomy ABDOMEN/PELVIS CT: The gallbladder is surgically absent. The liver, spleen, pancreas, and adrenal glands are normal. The kidneys are unremarkable. There is calcified atherosclerosis of the aorta and many of the other racheal cathryn. No pathologically enlarged abdominal or pelvic lymph nodes are identified. There is no free int raperitoneal gas or evidence of bowel obstruction. IMPRESSION: 1. Dependent airspace opacities of the lower lobes consistent with atelectasis and pneumonia. 2. Cardiomegaly. 3. No acute abnormality of the abdomen or pelvis. Reviewed, dictated and finalized at location A.
--- NOTE | ~2021-11-07 | XR_ITS ---
EXAMINATION: XR chest 2V DATE: 11/14/2021 10:16 INDICATION: Cough and shortness of breath TECHNIQUE: frontal and lateral views of the chest were obtained. COMPARISON: Chest radiograph dated 11/08/[address] dated 11/09/2021 FINDINGS: Cardio medically with small left paracardial fat pad. Persistent mild bibasilar atelectasis. No new a irspace opacities, pulmonary edema, pleural effusion or pneumothorax. Median sternotomy wires and med iastinal surgical clips are seen, likely from prior coronary artery bypass grafting. There is also co ronary artery stenting. Mild thoracic spondylosis. IMPRESSION: 1. Persistent mild bibasilar atelectasis. 2. Cardiomegaly. Reviewed, dictated and finalized at location A.
--- NOTE | ~2021-11-07 | XR_ITS ---
EXAMINATION: XR chest 1V portable DATE: 11/08/2021 17:51 INDICATION: Cardiac arrest. TECHNIQUE: A single frontal view of the chest was obtained. COMPARISON: Chest single view 11/07/2021, chest CT 03/22/2021 FINDINGS: There is a interstitial pattern in the inferior lungs, consistent mild pulmonary edema. No pleural effusion or pneumothorax. Cardiomegaly is noted. Median sternotomy wires and mediastinal surg ical clips are seen, likely from prior coronary artery bypass grafting. Surgical clips in the right u pper quadrant are likely from cholecystectomy. IMPRESSION: 1. Mild pulmonary edema. 2. Cardiomegaly. Reviewed, dictated and finalized at location A.
--- NOTE | ~2021-11-07 | CT_ITS ---
EXAMINATION: CT brain wo con INDICATION: Decreased level of consciousness COMPARISON: 09/02/2021 TECHNIQUE: Standard unenhanced head CT. The dose-length product (DLP) was 681.00 mGy-cm. The mA was a djusted according to patient size. Iterative reconstruction technique was employed. FINDINGS: There is no intracranial hemorrhage, acute infarction, or abnormal mass lesion. The ventric les are normal. There is no abnormal mass effect or midline shift. The jordan-white matter differentiat ion is normal. The basal cisterns are patent. The orbits are normal. The paranasal sinuses, mastoids and calvarium are normal. IMPRESSION: 1. No acute intracranial abnormality. Reviewed, dictated and finalized at location A.
--- NOTE | ~2021-11-07 | XR_ITS ---
EXAMINATION: XR chest 1V portable Exam Date/Time: 11/07/2021 20:35 CDT CLINICAL HISTORY: tachypnea Comparison: None available. RESULT: Lines, tubes, and devices: Intact sternotomy wires. Stable mediastinal vascular clips. Lungs and pleura: Clear. Cardiomediastinal silhouette: Stable cardiomediastinal silhouette. Other: No acute osseous or upper abdominal finding. IMPRESSION: No acute cardiopulmonary process Reviewed, dictated and finalized at location K.
--- NOTE | ~2021-11-07 | XR_ITS ---
EXAMINATION: XR chest 1V portable INDICATION: Shortness of breath TECHNIQUE: Portable AP chest at 1023 hours COMPARISON: 10/02/2021 FINDINGS: Cardiomegaly is noted. Median sternotomy wires and mediastinal surgical clips are seen, lik ivan from prior coronary artery bypass grafting. There are minimal airspace opacities of the left lung base. No pleural effusion or pneumothorax is identified. IMPRESSION: 1. Minimal left basilar airspace opacities, consistent with atelectasis versus pneumonia. 2. Cardiomegaly. Reviewed, dictated and finalized at location A.
--- NOTE | 2021-11-07 09:44 | ECG_ITS ---
Measurements Intervals [place] Rate: 81 P: 9 FL: 156 QRS: 79 QRSD: 125 T: 137 QT: 511 QTc: 595 Interpretive Statements SINUS RHYTHM LEFT ATRIAL ENLARGEMENT INTRAVENTRICULAR CONDUCTION DELAY BORDERLINE R WAVE PROGRESSION, ANTERIOR LEADS ST-T WAVE ABNORMALITY IN ANTEROLAT/HIGH LAT LEADS- CONSIDER ISCHEMIA BASELINE WANDER- V4-V6 ABNORMAL ECG Electronically Signed On 11-07-2021 12:42:35 CDT by Misael Ahmadi D.O.
--- NOTE | 2021-11-07 09:46 | ED.NAVMDI ---
HPI - Nausea/Vomiting/Diarrhea General Chief complaint: Nausea/Vomiting/Diarrhea Stated complaint: vomiting, diarrhea Time Seen by Provider: 11/07/21 09:38 Source: patient Mode of arrival: ambulatory Limitations: no limitations History of Present Illness HPI Narrative: Pt presents with numerous episodes of vomiting and diarrhea since about 10 pm last night. Pt sasy she is not able to keep anything down. Pt deniesw fever or sick contacts or unusual food or travel. Pt has recent STEMI and CABG and is a M,W,F dialysis patient and could not make her dialysis this morning. She sees Dr Brandt. Pt also is missing a follow up cardiology appointment today. Pt has some mild crampy generalized abdominal pain intermittently. MD elicited complaint: nausea, vomiting, diarrhea and abdominal pain Description of vomiting: bilious Description of diarrhea: watery Associated nausea: Yes Associated abdominal pain: Yes Location of pain: diffuse Pain consistency: intermittent Severity: mild Quality: cramping Relieving factors: none Associated symptoms: shortness of breath Related Data Home Medications Medication Instructions Recorded Confirmed clopidogrel [Plavix] 75 mg PO DAILY 12/01/20 11/07/21 lisinopril 20 mg PO DAILY 12/01/20 09/03/21 aspirin 81 mg PO DAILY 12/20/20 11/07/21 metoclopramide HCl 5 mg PO TID 12/20/20 11/07/21 Thera-M 1 tablet PO DAILY 03/13/21 11/07/21 carvedilol 25 mg PO BID 03/13/21 09/03/21 furosemide 120 mg PO BID 03/13/21 09/03/21 sevelamer carbonate 800 mg PO TIDWM 03/13/21 11/07/21 Lantus Solostar U-100 Insulin 10 unit SUBCUT HS 09/03/21 09/03/21 fludrocortisone 0.1 mg PO DAILY 09/03/21 09/03/21 insulin lispro [Humalog KwikPen 7 unit SUBCUT TIDWM 09/03/21 11/07/21 Insulin] ketorolac 1 drp LEFT EYE DAILY 09/03/21 09/03/21 pantoprazole 40 mg PO DAILY 09/03/21 09/03/21 acetaminophen 500 mg PO Q6H PRN 11/07/21 11/07/21 insulin glargine [Lantus U-100 15 unit SUBCUT DAILY 11/07/21 11/07/21 Insulin] Allergies Allergy/AdvReac Type Severity Reaction Status Date / Time No Known Drug Allergies Allergy Unknown Verified 11/07/21 09:36 Review of Systems Review of Systems: All systems reviewed & are unremarkable except as noted in HPI and below PMFSH Past Medical History Medical History Anasarca CAD (coronary artery disease) RCA stent placed in August 2020 CHF (congestive heart failure) Chiari I malformation Chronic osteomyelitis Status post toe amputations CVA (cerebral vascular accident) Small old lacunar infarct at the head of the right caudate nucleus. Dialysis patient Erythropoietin deficiency anemia Esophagitis determined by endoscopy EGD December 2019 ESRD (end stage renal disease) on dialysis On hemodialysis since June 2019 Gastroparesis due to DM Hyperlipidemia Papilledema Renal osteodystrophy Surgical History Surgical History Amputation of toe Two on the left AV fistula Left forearm H/O tubal ligation During one of her deliveries. History of section, classical X2 History of coronary artery stent placement History of laparoscopic cholecystectomy (03/15/21) History of tonsillectomy and adenoidectomy Hx of myringotomy S/P dialysis catheter insertion Right internal jugular June 2019 status post removal September 2019 S/P lateral meniscal repair S/P PICC central line placement Now removed S/P rotator cuff repair Family History Family History Other Adopted Social History Social History Social History: She has 2 children and she lives with her of 28 years. She is on disability. Patient stated that she is down to 1/4pack cigarettes a day. She has smoked up to a pack of cigarettes per day since she was 16 years old. She denies any heavy alcohol us
[2021-11-07 10:01] LABS: Basophils Percent Auto 0.3 % (0.2-1.2); Eosinophils Percent Auto 0.1 % (0-4.4); Hematocrit 35.6 % (37.0-47.0); Hemoglobin 11.4 g/dL (12.0-15.0); Immature Granulocyte Absolute 0.04 K/mm3 (0.00-0.031); Immature Granulocyte Percent A 0.4 % (0-0.5); Lymphocytes Percent Auto 6.9 % (18.3-44.2); Mean Corpuscular Hemoglobin 32.9 pg (26-34); Mean Corpuscular Volume 102.6 fl (80-100); Mean Platelet Volume 10.7 fl (7.4-10.4); Monocytes Absolute Auto 0.4 K/mm3 (0.1-0.6); Monocytes Percent Auto 3.6 % (2.6-8.5); Neutrophils Percent Auto 88.7 % (45.5-73.1); Platelet Count Result 227 k/mm3 (150-375); Red Blood Count 3.47 M/mm3 (4.2-5.4); Red Cell Distribution Width 15.3 % (11.5-14.5); White Blood Count 10.1 K/mm3 (4.5-10.0)
[2021-11-07] MEDS: ONDANSETRON INJ 4 MG/2 ML VIAL IV PUSH ×3 (10:06→22:29)
[2021-11-07 11:24] LABS: Alanine Aminotransferase 17 U/L (6-35); Albumin Level 4.4 g/dL (3.5-5.1); Alkaline Phosphatase 173 U/L (38-126); Anion Gap 23 mmol/L (8-16); Aspartate Amino Transferase 26 U/L (14-36); Bilirubin,Total 1.2 mg/dL (0.2-1.3); Blood Urea Nitrogen 44 mg/dL (7-17); Calcium 8.5 mg/dL (8.4-10.2); Carbon Dioxide 37 mmol/L (22-30); Chloride 83 mmol/L (98-107); Estimated CRCL calculation 8 ml/min; Estimated Glomerular Filt Rate 6; Glucose 345 mg/dL (65-110); Lipase 83 U/L (23-300); Potassium 3.3 mmol/L (3.4-5.0); Sodium 143 mmol/L (137-145)
[2021-11-07] MEDS: SODIUM CHLORIDE 0.9% IV 500 ML 999 ML IV CONT (11:24)
[2021-11-07 11:31] LABS: NT Pro B Type Natriuretic Pept > 35000 pg/mL (5-100); Troponin I 0.321 ng/mL (0.000-0.034)
--- NOTE | 2021-11-07 13:16 | PM.IMHP ---
H&P: HPI History of Present Illness Date/Time: Patient was placed observation status for expected length of stay less than 23 hours for management, will plan to re-evaluate tomorrow for improvement. 11/07/21 13:16 Chief Complaint: Nausea, vomiting, diarrhea Narrative: Ms. Bhat is a 46-year-old female who presented emergency room with complaints of nausea, vomiting, and diarrhea that began last night at 10:00 p.m. patient states she is unsure how many times that she actually had vomiting or diarrhea, but she states ?it was a lot?. Patient states she did not eat any new foods last evening. Patient states in fact her son did order her a cheeseburger for dinner, but she was not hungry did not eat dinner. Patient denies any fever or chills. Patient denies any hematemesis. Patient states she is feeling mildly better at this point time. Patient denies any chest pain, shortness breast, lightheadedness, dizziness, syncopal, or near syncopal episodes. Patient is a established end-stage renal disease on hemodialysis patient. Patient does have dialysis on Friday, Friday, and Friday. Patient also recently underwent coronary artery bypass grafting in September of this year. Patient came to the emergency room with a ST segment elevated myocardial infarction underwent cardiac catheterization and was then transferred to [facility] for coronary bypass grafting. Patient also has a known history of Chiari 1 malformation, chronic osteomyelitis status post toe amputations, CVA, anemia of chronic disease, diabetes mellitus, and dyslipidemia. Review of Systems Review of Systems: A 12 point review of systems was completed patient all pertinent positive and negative per HPI the remainder are unremarkable. [facility] Past Medical History Medical History Anasarca CAD (coronary artery disease) RCA stent placed in August 2020 CHF (congestive heart failure) Chiari I malformation Chronic osteomyelitis Status post toe amputations CVA (cerebral vascular accident) Small old lacunar infarct at the head of the right caudate nucleus. Dialysis patient Erythropoietin deficiency anemia Esophagitis determined by endoscopy EGD December 2019 ESRD (end stage renal disease) on dialysis On hemodialysis since June 2019 Gastroparesis due to DM Hyperlipidemia Papilledema Renal osteodystrophy Surgical History Surgical History Amputation of toe Two on the left AV fistula Left forearm H/O tubal ligation During one of her deliveries. History of section, classical X2 History of coronary artery stent placement History of laparoscopic cholecystectomy (03/15/21) History of tonsillectomy and adenoidectomy Hx of myringotomy S/P dialysis catheter insertion Right internal jugular June 2019 status post removal September 2019 S/P lateral meniscal repair S/P PICC central line placement Now removed S/P rotator cuff repair Family History Family History Other Adopted Social History Social History Social History: She has 2 children and she lives with her of 28 years. She is on disability. Patient stated that she is down to 1/4pack cigarettes a day. She has smoked up to a pack of cigarettes per day since she was 16 years old. She denies any heavy alcohol use or illicit substance use. Primary care physician: Dr. Christiano Ochoa Humidifier Maintenance Worker: Dr. Forbes Code status: Full code Healthcare power of solar fabrication technician: Smoking packs per day: 0.25 Smoking cigarettes per day: 5.0 Years smoked: 24 Smoking pack-years: 6.00 Smoking status: Current every day smoker Second hand tobacco smoke exposure: Yes Additional smoking assessment comments: Smoked 1 pack a day since 16. Currently at 0.25 pack per
[2021-11-07 13:25] LABS: Phosphorus 7.8 mg/dL (2.5-4.5)
--- NOTE | 2021-11-07 14:18 | PC.NURSE ---
Report received by Doug RN with the ED department at 1327. Patient to go to IMU room 202.
--- NOTE | 2021-11-07 14:19 | ADMGEN ---
This patient, Pamela Bhat, was admitted to IMU Room 202-01 at 1406. Patient/family oriented to hospital policies and general routines including ID bracelet, bed and alarms, visiting hours, pain management, procedures, bathroom and other care routines, personal items, smoking policy, room service/diet, and visiting hours. Information on how to activate the Rapid Response Team has been discussed. Patient/Family are encouraged to report perceived risks to care and to ask questions if they do not understand what they are told or what they should do.
[2021-11-07 15:06] LABS: Anion Gap 25 mmol/L (8-16); Blood Urea Nitrogen 46 mg/dL (7-17); Carbon Dioxide 33 mmol/L (22-30); Chloride 83 mmol/L (98-107); Estimated CRCL calculation 7 ml/min; Estimated Glomerular Filt Rate 6; Glucose 350 mg/dL (65-110); Potassium 3.4 mmol/L (3.4-5.0); Sodium 141 mmol/L (137-145)
[2021-11-07 16:20] LABS: Glucose Point of Care 341 mg/dl (65-105)
[2021-11-07] MEDS: INSULIN ASPART (*BKC) 100 UNITS/ML SUB-Q (18:27)
--- NOTE | 2021-11-07 19:59 | PC.NURSE ---
Cardiopulmonary Rehab Services flyer was given to patient.
[2021-11-07 20:26] LABS: Glucose Point of Care 247 mg/dl (65-105)
[2021-11-07 20:59] LABS: Alveolar/Arterial O2 Gradient 35.5 mmHg; Base Excess ABG 16.9 mEq/l (+/-2.0); Carboxyhemoglobin 0.3 % THb (0-2.0); Fractional Inspired Oxygen 21 %; HCO3 ABG 36.7 mEq/l (22.0-26.0); Methemoglobin ABG 0.1 %THb (0-1.5); Oxygen Content ABG 14.4 %vol (16.0-22.0); Oxygen Saturation ABG 98.2 % (95.0-100.0); Oxyhemoglobin 96.2 % THb (90.0-100.0); PCO2 ABG 27.2 mmHg (35.0-45.0); PO2 ABG 81.7 mmHg (80.0-100.0); PO2 FiO2 Ratio Arterial Blood 3.89 %; Reduced Hemoglobin 3.4 %THb (0-5.0); Total Hemoglobin 10.6 g/dL (12.0-18.0)
[2021-11-07 21:00] LABS: Site Drawn RIGHT BRACHIAL; pH ABG 7.748 (7.350-7.450)
[2021-11-07 21:01] LABS: Device ROOM AIR; Modified Allen's Test Unable to perform
--- NOTE | 2021-11-07 21:05 | PC.NURSE ---
Rapid Response called, Nurse found patient dusky and very drowsy and slow to respond. O2 started NC 2LPM, Megha Capps CAVITY PUMP OPERATOR came to see patient, ABG results handed to CAVITY PUMP OPERATOR, Patient more responsive and normal Vitals. Stat BMP ordered and Normal saline 500ml bag x1 at 100ml/hr
[2021-11-07 21:19] LABS: Glucose Point of Care 231 mg/dl (65-105)
[2021-11-07] MEDS: SODIUM CHLORIDE 0.9% IV 500 ML 100 ML IV CONT (21:37)
[2021-11-07] MEDS: HEPARIN SODIUM 5,000 UNITS/ML VIAL 5000 UNITS SUB-Q (21:38)
[2021-11-07 21:58] LABS: Blood Urea Nitrogen 53 mg/dL (7-17); Calcium 7.7 mg/dL (8.4-10.2); Carbon Dioxide > 40 mmol/L (22-30); Chloride 80 mmol/L (98-107); Estimated CRCL calculation 7 ml/min; Estimated Glomerular Filt Rate 5; Glucose 236 mg/dL (65-110); Potassium 3.3 mmol/L (3.4-5.0); Sodium 141 mmol/L (137-145)
[2021-11-07 23:29] LABS: Glucose Point of Care 259 mg/dl (65-105)
[2021-11-08] VITALS (27 sets, daily range): BP systolic 70–169; BP diastolic 31–69; PULSE 81–156; RESP 20–46; TEMP 36.5–37.3; O2SAT 92–100
[2021-11-08] MEDS: PROMETHAZINE HCL 25 MG/ML AMPUL 12.5 MG IV PUSH ×2 (00:35→08:17)
[2021-11-08 03:38] LABS: Basophils Percent Auto 0.2 % (0.2-1.2); Hematocrit 33.9 % (37.0-47.0); Hemoglobin 10.9 g/dL (12.0-15.0); Immature Granulocyte Absolute 0.06 K/mm3 (0.00-0.031); Immature Granulocyte Percent A 0.4 % (0-0.5); Lymphocytes Absolute Auto 1.18 K/mm3 (0.9-3.2); Lymphocytes Percent Auto 8.7 % (18.3-44.2); Mean Corpuscular HGB Conc 32.2 g/dl (32-36); Mean Corpuscular Hemoglobin 32.8 pg (26-34); Mean Corpuscular Volume 102.1 fl (80-100); Mean Platelet Volume 10.6 fl (7.4-10.4); Monocytes Percent Auto 7.3 % (2.6-8.5); Neutrophils Absolute Auto 11.3 K/mm3 (1.3-6.7); Neutrophils Percent Auto 83.4 % (45.5-73.1); Platelet Count Result 234 k/mm3 (150-375); Red Blood Count 3.32 M/mm3 (4.2-5.4); Red Cell Distribution Width 15.7 % (11.5-14.5); White Blood Count 13.5 K/mm3 (4.5-10.0)
[2021-11-08 04:05] LABS: Albumin Level 4.1 g/dL (3.5-5.1); Blood Urea Nitrogen 57 mg/dL (7-17); Calcium 7.4 mg/dL (8.4-10.2); Carbon Dioxide > 40 mmol/L (22-30); Chloride 80 mmol/L (98-107); Estimated CRCL calculation 7 ml/min; Estimated Glomerular Filt Rate 5; Glucose 272 mg/dL (65-110); Magnesium 2.2 mg/dL (1.6-2.3); Phosphorus 8.4 mg/dL (2.5-4.5); Potassium 3.4 mmol/L (3.4-5.0); Sodium 141 mmol/L (137-145)
[2021-11-08] MEDS: ONDANSETRON INJ 4 MG/2 ML VIAL IV PUSH (05:02)
--- NOTE | 2021-11-08 06:43 | PC.NURSE ---
RN notified oncall dialysis nurse of need for dialysis today on patient, Dr Forbes to place dialysis orders.
[2021-11-08 07:39] LABS: Glucose Point of Care 312 mg/dl (65-105)
[2021-11-08] MEDS: SEVELAMER CARBONATE 800 MG TABLET PO (08:07)
[2021-11-08] MEDS: ASPIRIN 81 MG ENTERIC TABLET PO (08:08)
[2021-11-08] MEDS: INSULIN ASPART (*BKC) 100 UNITS/ML SUB-Q (08:08)
[2021-11-08] MEDS: CLOPIDOGREL BISULFATE 75 MG TABLET PO (08:08)
[2021-11-08] MEDS: lisinopriL 20 MG TABLET PO (08:09)
[2021-11-08] MEDS: ATORVASTATIN 40 MG TABLET PO (08:09)
[2021-11-08] MEDS: THERAPEUTIC MULTIVITAMINS/MINERALS TAB (*BKC) 1 TABLET PO (08:09)
[2021-11-08] MEDS: FUROSEMIDE 40 MG TABLET 120 MG PO (08:09)
[2021-11-08] MEDS: HEPARIN SODIUM 5,000 UNITS/ML VIAL 5000 UNITS SUB-Q ×2 (08:10→20:43)
[2021-11-08] MEDS: PANTOPRAZOLE 40 MG TABLET PO (08:10)
[2021-11-08 08:20] LABS: Alveolar/Arterial O2 Gradient 37.1 mmHg; Carboxyhemoglobin 0.3 % THb (0-2.0); Fractional Inspired Oxygen 24 %; HCO3 ABG 41.6 mEq/l (22.0-26.0); Methemoglobin ABG 0.3 %THb (0-1.5); Oxygen Content ABG 15.2 %vol (16.0-22.0); Oxygen Saturation ABG 97.2 % (95.0-100.0); Oxyhemoglobin 94.6 % THb (90.0-100.0); PCO2 ABG 44.5 mmHg (35.0-45.0); PO2 ABG 81.1 mmHg (80.0-100.0); PO2 FiO2 Ratio Arterial Blood 3.38 %; Reduced Hemoglobin 4.8 %THb (0-5.0); Total Hemoglobin 11.4 g/dL (12.0-18.0)
[2021-11-08 08:21] LABS: Device NASAL CANNULA; Modified Allen's Test Pass; Site Drawn RIGHT BRACHIAL; pH ABG 7.589 (7.350-7.450)
[2021-11-08 12:13] LABS: Glucose Point of Care 156 mg/dl (65-105)
--- NOTE | 2021-11-08 13:15 | PM.IMPN ---
Progress Note: A&P Assessment and Plan (1) Gastroenteritis: Code(s): K52.9 - Noninfective gastroenteritis and colitis, unspecified Status: Acute Assessment and Plan: -suspect this to be the cause of her metabolic alkalosis -some improvement with hydration overnight -IVF discontinued due to being dialysis patient -Continue supportive care (2) Metabolic alkalosis: Code(s): E87.3 - Alkalosis Status: Acute Assessment and Plan: -likely due to above -Improving -Continue to monitor (3) End stage renal disease on dialysis: Code(s): N18.6 - End stage renal disease; Z99.2 - Dependence on renal dialysis Status: Acute Assessment and Plan: -Dr. Forbes consulted -Dialysis today (4) Insulin dependent diabetes mellitus: Status: Acute Assessment and Plan: -moderate dose SS, accuchecks ACHS, hypoglycemic protocol (5) Hypertension: Qualifiers: Hypertension type: unspecified Qualified Code(s): I10 - Essential (primary) hypertension Code(s): I10 - Essential (primary) hypertension Status: Chronic Assessment and Plan: -continue home meds -had some mildly elevated readings early this morning, should improve with dialysis today (6) Hypokalemia: Code(s): E87.6 - Hypokalemia Status: Acute Assessment and Plan: -low normal at 3.4 -dialysis later today -nephrology rounding -repeat BMP tomorrow Subjective Date/time seen: 11/08/21 13:15 Interval history: 46 yo female w/ hx of end-stage renal disease on hemodialysis, IA w/ cardiac cath, Chiari 1 malformation, chronic osteomyelitis status post toe amputations, CVA, anemia of chronic disease, diabetes mellitus, and dyslipidemia, who presented to the hospital for persistent N/V/D. Today she is not feeling well at all. She feels overall very weak. She has not been vomiting today but still feels nauseated. Has mild mid abdominal pain. Still having diarrhea. No cp. Admits to some sob especially when lying flat. She is set to get dialysis this afternoon. Review of Systems Review of Systems: All systems reviewed & are unremarkable except as noted in HPI and below Exam Narrative: Constitutional: NAD, mildly ill appearing HEENT: Moist mucous membranes. No scleral icterus. No lymphadenopathy. Neck: Supple Lungs: Lung sounds are clear to auscultation bilaterally. No accessory muscle use. No rhonchi, rales, or wheezes noted. Cardiovascular: Apical pulse is regular rate and rhythm. S1-S2 noted, no S3 or S4 noted. No gallops, murmurs, or rubs noted. Abdomen: soft, mild lower quadrant ttp, no rebound or guarding Extremities: No edema. Patient has an AV fistula to left upper extremity that has a positive bruit and thrill. Skin: No rashes or lesions. Warm and dry. Skin is intact. Neurological: alert and oriented x3. No focal neurological deficits. Cranial nerves II-XII grossly intact. Psychiatric: Cooperative, appropriate mood, and affect Objective Data Vital Signs Vital Signs: Vital Signs - 24 hr 11/07/21 14:23 11/07/21 16:00 11/07/21 16:31 Temperature 99.0 F 99.0 F Pulse Rate 94 91 90 Respiratory Rate 22 H 21 H Blood Pressure 147/72 H 153/63 H Pulse Oximetry 100 94 11/07/21 18:00 11/07/21 19:58 11/07/21 20:00 Temperature 98.8 F Pulse Rate 87 84 92 Respiratory Rate 24 H Blood Pressure 125/53 L Pulse Oximetry 100 11/07/21 20:25 11/07/21 20:35 11/07/21 21:30 Temperature Pulse Rate 96 Respiratory Rate 30 H Blood Pressure 126/54 L 126/54 L Pulse Oximetry 99 97 99 11/07/21 22:00 11/07/21 23:34 11/08/21 00:00 Temperature 99.4 F Pulse Rate 82 74 83 Respiratory Rate 20 Blood Pressure 142/62 H Pulse Oximetry 95 11/08/21 02:00 11/08/21 04:00 11/08/21 06:00 Temperature 99.2 F Pulse Rate 84 84 85 Respiratory Rate 20 Blood Pressure 163/47 H P
--- NOTE | 2021-11-08 16:08 | PC.NURSE ---
Patient to Dialysis
[2021-11-08 16:41] LABS: Glucose Point of Care 231 mg/dl (65-105)
--- NOTE | 2021-11-08 16:50 | PDCODEBLUE ---
[facility] Note [facility] Note Time Arrived at [facility]: 16:50 <Dena Rodney PA-C - Last Filed: 11/11/21 23:02> Initial Rhythm on Arrival: Sinus tachycardia <SERA Duvall Last Filed: 11/11/21 23:02> Airway Management: NRB <Dena Rodney PA-C - Last Filed: 11/11/21 23:02> Chest Compressions: ROSC <Dena Rodney PA-C - Last Filed: 11/11/21 23:02> Result of [facility]: Pt transferred to ICU <SERA Duvall Last Filed: 11/11/21 23:02> Cardiac Rhythm Post Code: Sinus tachycardia. <SERA Duvall Last Filed: 11/11/21 23:02> [facility] Summary: Rapid response shortly followed by [facility] called at 16:48. According to dialysis nurse, the patient was perhaps 15 minutes into her session when she began making a strange noise and she was found to be unresponsive. At that time her pulse was unable to be palpated and compressions were started. Epinephrine 1 mg x 1 was given with return of spontaneous circulation. Upon my arrival to the room, she was in sinus tachycardia in the 130s to 140s and was on a non-rebreather. Blood pressure was 70/30. She was complaining of some mild chest discomfort, near the clavicles bilaterally but she had no other complaints. IMU nurses reported that she had a brief run of nonsustained V-tach about the same time. Cardiology was consulted and Dr. Renner who recommended amiodarone bolus. Stat labs showed no significant electrolyte abnormalities. Stat EKG T-wave inversion in the lateral leads with ST elevation in AVR. Dr. Potter was then consulted and at this time he recommends continuing aspirin, clopidogrel, and beta-blockade as the patient was revascularized within the past 1 month at [facility] and she is chest pain-free at this time. Case was discussed with Dr. Forbes (nephrology) and we reviewed her chart together. We are holding on dialysis this evening as she has no significant electrolyte abnormalities or evidence of volume overload. She does however have evidence of multiple acid-base disturbances including metabolic alkalosis and respiratory alkalosis in the presence of elevated beta hydroxybutyrate and lactic acid levels. She appears quite dry on exam and is likely contracted due to poor oral intake and volume depletion from ongoing vomiting and diarrhea. Diuretic and sevelamer have been put on hold per Dr. Forbes. She is being started on normal saline at 50 mL per hour with close monitoring of volume status. Glucose has been in the mid 200 and with elevated beta hydroxybutyrate, we will hydrate her as her volume status allows and initiate sliding scale insulin to obtain better glucose control. Lactic acid level could be elevated due to brief hypotension during the code however we will initiate broad-spectrum antibiotics (cefepime and vancomycin x1) pending blood and urine culture. Case was also discussed with Dr. Portillo (fitter placer) will also gave recommendations to cautiously hydrate. Agrees with empiric antibiotics, pending cultures. Also of note, I received a call from the patient's nighttime nurse with reports of witnessed apneic episodes during sleep, with transient hypoxia. CPAP ordered. <Dena Rodney PA-C - Last Filed: 11/11/21 23:02> Critical Care Time Critical Care Time: Yes <Dena Rodney PA-C - Last Filed: 11/11/21 23:02> Total Critical Care Time: 65 <SERA Duvall Last Filed: 11/11/21 23:02> Attestation: Due to a high probability of clinically significant, life threatening deterioration, the patient required my highest level of preparedness to intervene emergently and I personally spent this critical care time directly and personally managing the patient. This critical care time included obtaining a history; examining the patient; pulse oximetry; ordering and review of studies; arranging urgent treatment with development of a management plan; evaluation of patient's response to treatme
--- NOTE | 2021-11-08 17:04 | ECG_ITS ---
Measurements Intervals [place] Rate: 117 P: 77 ID: 162 QRS: -18 QRSD: 114 T: 240 QT: 279 QTc: 390 Interpretive Statements SINUS TACHYCARDIA LEFT ATRIAL ENLARGEMENT INTRAVENTRICULAR CONDUCTION DELAY DELAYED PRECORDIAL R/S TRANSITION ST-T WAVE ABNORMALITY IN DIFFUSE LEADS- CONSIDER ISCHEMIA ABNORMAL ECG Electronically Signed On 11-09-2021 7:34:52 CDT by Misael Ahmadi D.O.
[2021-11-08 17:11] LABS: Alveolar/Arterial O2 Gradient 261.2 mmHg; Carboxyhemoglobin 0.3 % THb (0-2.0); Fractional Inspired Oxygen 100 %; HCO3 ABG 38.4 mEq/l (22.0-26.0); Methemoglobin ABG 0.2 %THb (0-1.5); Oxygen Content ABG 17.5 %vol (16.0-22.0); Oxygen Saturation ABG 99.9 % (95.0-100.0); Oxyhemoglobin 98.6 % THb (90.0-100.0); PCO2 ABG 37.9 mmHg (35.0-45.0); PO2 ABG 413.9 mmHg (80.0-100.0); PO2 FiO2 Ratio Arterial Blood 4.14 %; Reduced Hemoglobin 0.9 %THb (0-5.0); Total Hemoglobin 11.8 g/dL (12.0-18.0)
[2021-11-08 17:12] LABS: Device NON-REBREATHER MASK; Modified Allen's Test Pass; Site Drawn RIGHT RADIAL; pH ABG 7.624 (7.350-7.450)
[2021-11-08 17:12] LABS: Glucose Point of Care 272 mg/dl (65-105)
[2021-11-08 17:50] LABS: Basophils Percent Auto 0.2 % (0.2-1.2); Eosinophils Percent Auto 0.1 % (0-4.4); Hematocrit 34.8 % (37.0-47.0); Hemoglobin 10.8 g/dL (12.0-15.0); Immature Granulocyte Absolute 0.07 K/mm3 (0.00-0.031); Immature Granulocyte Percent A 0.6 % (0-0.5); Lymphocytes Absolute Auto 2.12 K/mm3 (0.9-3.2); Mean Corpuscular Hemoglobin 32.7 pg (26-34); Mean Corpuscular Volume 105.5 fl (80-100); Mean Platelet Volume 10.8 fl (7.4-10.4); Neutrophils Absolute Auto 9.2 K/mm3 (1.3-6.7); Neutrophils Percent Auto 74.1 % (45.5-73.1); Platelet Count Result 255 k/mm3 (150-375); Red Cell Distribution Width 15.6 % (11.5-14.5); White Blood Count 12.5 K/mm3 (4.5-10.0)
[2021-11-08 17:59] LABS: Ammonia < 9 umol/L (9-30)
[2021-11-08 18:06] LABS: Beta-Hydroxybutyrate/Acetoacetate 2.63 mmol/L (0.02-0.27)
[2021-11-08 18:15] LABS: Lactic Acid Reflex 4.1 mmol/L (0.7-2.0)
[2021-11-08 18:17] LABS: Alanine Aminotransferase 16 U/L (6-35); Albumin Level 3.8 g/dL (3.5-5.1); Alkaline Phosphatase 162 U/L (38-126); Aspartate Amino Transferase 32 U/L (14-36); Bilirubin,Total 1.1 mg/dL (0.2-1.3); Blood Urea Nitrogen 63 mg/dL (7-17); Calcium 7.1 mg/dL (8.4-10.2); Carbon Dioxide > 40 mmol/L (22-30); Chloride 80 mmol/L (98-107); Estimated CRCL calculation 7 ml/min; Estimated Glomerular Filt Rate 5; Glucose 262 mg/dL (65-110); Magnesium 2.1 mg/dL (1.6-2.3); Phosphorus 7.9 mg/dL (2.5-4.5); Potassium 3.6 mmol/L (3.4-5.0); Sodium 142 mmol/L (137-145); Troponin I 0.759 ng/mL (0.000-0.034)
[2021-11-08] MEDS: SODIUM CHLORIDE 0.9% IV 500 ML IV CONT (18:40)
--- NOTE | 2021-11-08 18:40 | PC.NURSE ---
1648-Rapid response called in dialysis room 308. Escalated to code blue immediately. (see code blue documentation) Pt. stabilized and then decision made to transfer patient to ICU after discussion with Dena BHANDARI, Dr. Portillo, and Dr. Forbes. [id number]-patient transferred to ICU 8.
--- NOTE | 2021-11-08 20:18 | PM.CNNEP ---
Assessment and Plan Assessment and plan (1) End stage renal disease on dialysis: Code(s): N18.6 - End stage renal disease; Z99.2 - Dependence on renal dialysis Status: Chronic Assessment and Plan: end-stage renal disease diabetic gastroparesis exacerbation with nausea and vomiting this has caused metabolic alkalosis and currently has also respiratory alkalosis has presence of lactic acidosis and also ketoacidosis recent CABG reported ventricular tachycardia dialysis hypokalemia earlier anemia of chronic kidney disease rule out underlying sepsis with leukocytosis plan: - dialysis terminated hold off until tomorrow until patient is stable - chest x-ray reviewed personally, does not doing too bad, we will see if fluid will help, patient makes urine, sodium chloride may help the metabolic alkalosis - tight sugar control - blood culture, antibiotics vancomycin and cefepime - monitor closely -hold diuretic, hold sevelamer carbonate to cut down any potential base - may need to be intubated if respiratory problems persist - critical, will continue to follow History of Present Illness Reason for Consult Consult date: 11/08/21 Reason for consult: end stage renal disease Chief Complaint Chief complaint: Gastroenteritis with dehydration History of Present Illness Narrative: The patient is a 46-year-old female who had a CABG X3 just few weeks ago [facility]. she is admitted with nausea and vomiting. Known diabetic type 1 with gastroparesis. She missed her dialysis yesterday and we attempted dialysis today. However 15 minutes into the treatment she became agonal with respiration and apparently reported V-tach. She came to very quickly. Now moved to the intensive care unit. She is firing rapidly. Chest x-ray does not look too bad though there is mention of fluid in the lungs. She has high lactate level of high beta hydroxybutyrate indicating presence of ketoacidosis as well. The white count is high. Patient's last dialysis was on Friday. No problems reported at that time. She continues to smoke She is in the intensive care unit. She is not doing too well. History is limited. Review of Systems Review of Systems: ROS unobtainable: Yes unobtainable due to mental status [facility] Past Medical History Medical History Anasarca CAD (coronary artery disease) RCA stent placed in August 2020 CHF (congestive heart failure) Chiari I malformation Chronic osteomyelitis Status post toe amputations CVA (cerebral vascular accident) Small old lacunar infarct at the head of the right caudate nucleus. Dialysis patient Erythropoietin deficiency anemia Esophagitis determined by endoscopy EGD December 2019 ESRD (end stage renal disease) on dialysis On hemodialysis since June 2019 Gastroparesis due to DM Hyperlipidemia Papilledema Renal osteodystrophy Surgical History Surgical History Amputation of toe Two on the left AV fistula Left forearm H/O tubal ligation During one of her deliveries. History of section, classical X2 History of coronary artery stent placement History of laparoscopic cholecystectomy (03/15/21) History of tonsillectomy and adenoidectomy Hx of myringotomy S/P dialysis catheter insertion Right internal jugular June 2019 status post removal September 2019 S/P lateral meniscal repair S/P PICC central line placement Now removed S/P rotator cuff repair Family History Family History Other Adopted Social History Social History Social History: She has 2 children and she lives with her of 28 years. She is on disability. Patient stated that she is down to 1/4pack cigarettes a day. She has smoked up to a pack of cigarettes per day s
[2021-11-08] MEDS: AMIODARONE 150 MG/D5W 100 ML 150 MG/100 ML BAG 600 MG IV CONT (20:20)
[2021-11-08] MEDS: SODIUM CHLORIDE 0.9% IV 1,000 ML 50 ML IV CONT (20:30)
[2021-11-08 20:47] LABS: Reflex Lactic Acid Yes or No Add Lactic
[2021-11-08 21:05] LABS: Carboxyhemoglobin 0.2 % THb (0-2.0); Fractional Inspired Oxygen 35 %; HCO3 ABG 41.9 mEq/l (22.0-26.0); Methemoglobin ABG 0.2 %THb (0-1.5); Oxygen Content ABG 14.4 %vol (16.0-22.0); Oxygen Saturation ABG 97.9 % (95.0-100.0); Oxyhemoglobin 95.9 % THb (90.0-100.0); PCO2 ABG 46.3 mmHg (35.0-45.0); PO2 ABG 92.7 mmHg (80.0-100.0); PO2 FiO2 Ratio Arterial Blood 2.65 %; Reduced Hemoglobin 3.7 %THb (0-5.0); Total Hemoglobin 10.6 g/dL (12.0-18.0)
[2021-11-08 21:08] LABS: Device VENTURI MASK; Modified Allen's Test Pass; Site Drawn RIGHT BRACHIAL; pH ABG 7.575 (7.350-7.450)
[2021-11-08 21:21] LABS: Lactic Acid 1.8 mmol/L (0.7-2.0)
[2021-11-09] VITALS (20 sets, daily range): BP systolic 100–125; BP diastolic 32–75; PULSE 71–87; RESP 10–28; TEMP 36.2–37.1; O2SAT 92–100
--- NOTE | 2021-11-09 | ECHO_ITS ---
Patient Info Name: Pamela Bhat Age: 46 years : 1975 Gender: Female Ht: 65 in Wt: 147 lbs BSA: 1.76 m2 HR: 81 bpm BP: 118 / 32 mmHg Heart Rhythm: Sinus Rhythm Technical Quality: Good Exam Date: 11/09/2021 10:28 AM Exam Location: [facility] Card Pulmonary Patient Status: Inpatient Admit Date: 11/07/2021 Staff Ordering Physician: Renzo Portillo MD Commercial Insulator: Dolores Santoro RDCS Attending Provider: Jennifer Ward PA-C Exam Type: CA echo doppler color flow Study Info Indications I21.4 - Non-ST elevation (NSTEMI) myocardial infarction Complete two-dimensional, color flow and Doppler transthoracic echocardiogram is performed. Summary 1. Complete two-dimensional, color flow and Doppler transthoracic echocardiogram is performed. 2. Left ventricular systolic function is mildly reduced, estimated at 50% with hypokinesis of the basal anteroseptal wall. 3. Left ventricular chamber dimension is mildly enlarged. 4. There is mildly increased left ventricular wall thickness. 5. The left ventricular diastolic function is grade I diastolic dysfunction. 6. Left atrial chamber dimension is moderately enlarged. Left Ventricle Left ventricular systolic function is mildly reduced, estimated at 50% with hypokinesis of the basal anteroseptal wall. Left ventricular chamber dimension is mildly enlarged. There is mildly increased left ventricular wall thickness. The left ventricular diastolic function is grade I diastolic dysfunction. Right Ventricle Right ventricular chamber dimension is normal. Right ventricular systolic function is normal. Left Atria Left atrial chamber dimension is moderately enlarged. Right Atria Right atrial chamber dimension is mildly enlarged. Aortic Valve The aortic valve is trileaflet. There is mild aortic valve sclerosis. There is no aortic valve stenosis. There is no aortic valve regurgitation. Pulmonic Valve The pulmonic valve is not well visualized. Mitral Valve The mitral valve has normal leaflets. There is trace mitral valve regurgitation. Tricuspid Valve The tricuspid valve leaflets are normal. There is trace tricuspid valve regurgitation. No pulmonary hypertension, estimated pulmonary arterial systolic pressure is 32 mmHg. Pericardium/Pleural The pericardium appears normal. There is no pericardial effusion. Inferior Vena Cava Normal inferior vena cava with >50% collapse upon inspiration consistent with normal right atrial pressure, 5 mmHg. Aorta The aortic root size at the sinus of Valsalva is normal. Left Ventricular Outflow Tract Name Value Normal LVOT 2D LVOT Diameter 2.0 cm LVOT Doppler LVOT Peak Gradient 8 mmHg LVOT Mean Gradient 5 mmHg LVOT VTI 30 cm LVOT VTI/AV VTI Ratio 0.8 LVOT Stroke Volume 89 ml LVOT CO 18.9 l/min LVOT CI 10.8 l/min/m2 Pulmonic Valve
[2021-11-09 00:11] LABS: Glucose Point of Care 249 mg/dl (65-105)
[2021-11-09 03:00] LABS: Glucose Point of Care 218 mg/dl (65-105)
[2021-11-09 04:24] LABS: Basophils Percent Auto 0.3 % (0.2-1.2); Eosinophils Percent Auto 0.2 % (0-4.4); Hemoglobin 9.6 g/dL (12.0-15.0); Immature Granulocyte Absolute 0.09 K/mm3 (0.00-0.031); Immature Granulocyte Percent A 0.8 % (0-0.5); Lymphocytes Absolute Auto 1.22 K/mm3 (0.9-3.2); Lymphocytes Percent Auto 10.5 % (18.3-44.2); Mean Corpuscular Hemoglobin 32.8 pg (26-34); Mean Corpuscular Volume 105.8 fl (80-100); Mean Platelet Volume 10.8 fl (7.4-10.4); Monocytes Absolute Auto 0.8 K/mm3 (0.1-0.6); Neutrophils Absolute Auto 9.5 K/mm3 (1.3-6.7); Neutrophils Percent Auto 81.2 % (45.5-73.1); Platelet Count Result 185 k/mm3 (150-375); Red Blood Count 2.93 M/mm3 (4.2-5.4); Red Cell Distribution Width 15.6 % (11.5-14.5); White Blood Count 11.6 K/mm3 (4.5-10.0)
[2021-11-09 04:44] LABS: Alanine Aminotransferase 12 U/L (6-35); Albumin Level 3.7 g/dL (3.5-5.1); Alkaline Phosphatase 130 U/L (38-126); Aspartate Amino Transferase 34 U/L (14-36); Blood Urea Nitrogen 67 mg/dL (7-17); Calcium 6.8 mg/dL (8.4-10.2); Carbon Dioxide > 40 mmol/L (22-30); Chloride 81 mmol/L (98-107); Estimated CRCL calculation 6 ml/min; Estimated Glomerular Filt Rate 5; Glucose 242 mg/dL (65-110); Potassium 3.7 mmol/L (3.4-5.0); Sodium 138 mmol/L (137-145)
[2021-11-09] MEDS: PANTOPRAZOLE 40 MG TABLET PO (08:33)
[2021-11-09 08:38] LABS: Glucose Point of Care 273 mg/dl (65-105)
[2021-11-09] MEDS: INSULIN ASPART (*BKC) 100 UNITS/ML SUB-Q ×2 (08:41→21:27)
[2021-11-09] MEDS: HEPARIN SODIUM 5,000 UNITS/ML VIAL 5000 UNITS SUB-Q ×2 (08:46→21:23)
[2021-11-09] MEDS: PROMETHAZINE HCL 25 MG/ML AMPUL 12.5 MG IV PUSH (08:46)
[2021-11-09] MEDS: INSULIN GLARGINE (*BKC) 100 UNITS/ML 10 UNITS SUB-Q (08:47)
--- NOTE | 2021-11-09 11:16 | WPDCNINT ---
Assessment and Plan Assessment and plan (1) Cardiac arrest: Code(s): I46.9 - Cardiac arrest, cause unspecified Status: Acute Assessment and Plan: Patient received 1 dose of amiodarone post her cardiac arrest as a brief V-tach was seen on telemetry.. She has been in normal sinus rhythm since then and has not required any further antiarrhythmic infusion It is quite possible the patient was hypovolemic from her nausea vomiting and diarrhea and once she was placed on hemodialysis she became hypotensive leading to PEA arrest Continue serial troponin Check echo Check CT chest Continue empiric antibiotics Cultures have been sent Patient has been getting cautious IV fluids for dehydration as her last record EF was 30-35% on echo which was done prior to her CABG (2) Elevated troponin: Code(s): R77.8 - Other specified abnormalities of plasma proteins Status: Acute Assessment and Plan: Patient has history of coronary disease and had CABG last month Now she has elevated troponin in presence of an segment disease and she had a brief cardiac arrest yesterday She denies any chest pain at this time EKG was abnormal with ST changes, cardiology was consulted and recommended conservative management Continue aspirin Plavix statin Patient not on Beta-jaye as an outpatient AZUCENA-inhibitor on hold due to low blood pressure this morning Check echocardiogram Continue serial troponin levels Repeat EKG now Discussed with Dr. Potter who will evaluate patient and also reviewed patient's echocardiogram (3) Gastroenteritis: Code(s): K52.9 - Noninfective gastroenteritis and colitis, unspecified Status: Acute Assessment and Plan: Patient presented with presentation of nausea vomiting and diarrhea and has had similar presentation in the past which was managed conservatively She also has gastroparesis She was given IV fluids Add Reglan Check CT abdomen pelvis (4) End stage renal disease on dialysis: Code(s): N18.6 - End stage renal disease; Z99.2 - Dependence on renal dialysis Status: Acute Assessment and Plan: Nephrology is following and hemodialysis per Nephrology (5) Insulin dependent diabetes mellitus: Status: Acute Assessment and Plan: Add Lantus Continue sliding scale but change to every 4 hours for better control Her blood glucose is only 125 at this time. She had elevated beta hydroxybutyrate yesterday but was alkalotic. I will repeat it and check BMP. (6) GERD (gastroesophageal reflux disease): Code(s): K21.9 - Gastro-esophageal reflux disease without esophagitis Status: Acute Assessment and Plan: Add PPI (7) Chest pain: Qualifiers: Chest pain type: unspecified Qualified Code(s): R07.9 - Chest pain, unspecified Code(s): R07.9 - Chest pain, unspecified Status: Acute Assessment and Plan: Patient at this time reports chest pain but is tender on both sides of sternal and I suspect patient may have sustained rib fractures from CPR. Patient also had recent sternotomy Check CT chest (8) Metabolic alkalosis: Code(s): E87.3 - Alkalosis Status: Acute Assessment and Plan: Could be secondary to vomiting Continue normal saline Lasix and several made on hold (9) Gastroparesis: Code(s): K31.84 - Gastroparesis Status: Acute Assessment and Plan: Resume Reglan (10) Sepsis: Code(s): A41.9 - Sepsis, unspecified organism Status: Acute Assessment and Plan: She had elevated lactic acid level which could be from the brief cardiac arrest or hypotension from hypovolemia She was given empiric dose of antibiotics and culture was sent Blood pressure has been adequate She has received cautious amount of IV fluids due to her end-stage renal disease I will check CT chest abdomen pelvis to rule out any source of infection Check UA Additional Plan DVT prophylaxis -subQ hepa
--- NOTE | 2021-11-09 11:22 | ECG_ITS ---
Measurements Intervals [place] Rate: 81 P: 67 AL: 178 QRS: -17 QRSD: 118 T: 181 QT: 428 QTc: 499 Interpretive Statements SINUS RHYTHM POSSIBLE LEFT ATRIAL ENLARGEMENT INTRAVENTRICULAR CONDUCTION DELAY DELAYED PRECORDIAL R/S TRANSITION INFERIOR INFARCT, AGE INDETERMINATE ST-T WAVE ABNORMALITY IN ANTEROLAT/HIGH LAT LEADS- CONSIDER ISCHEMIA BASELINE ARTIFACT- II, III, AVF, V5 ABNORMAL ECG Electronically Signed On 11-09-2021 11:57:20 CDT by Misael Ahmadi D.O.
[2021-11-09 11:41] LABS: Glucose Point of Care 125 mg/dl (65-105)
[2021-11-09 12:18] LABS: Blood Urea Nitrogen 70 mg/dL (7-17); Calcium 6.9 mg/dL (8.4-10.2); Carbon Dioxide > 40 mmol/L (22-30); Chloride 84 mmol/L (98-107); Estimated CRCL calculation 6 ml/min; Estimated Glomerular Filt Rate 5; Glucose 107 mg/dL (65-110); Potassium 3.5 mmol/L (3.4-5.0); Sodium 141 mmol/L (137-145)
[2021-11-09] MEDS: PANTOPRAZOLE SODIUM IV 40 MG VIAL IV PUSH (12:25)
[2021-11-09 12:28] LABS: Beta-Hydroxybutyrate/Acetoacetate 0.15 mmol/L (0.02-0.27)
--- NOTE | 2021-11-09 12:39 | PM.CNCAR ---
Assessment and Plan Additional Plan this is a 46-year-old lady with chronic renal failure on chronic hemodialysis who was having nausea and vomiting for several days. On hemodialysis yesterday in the hospital she became hypotensive and in that setting had some nonsustained ventricular tachycardia. She did not have to be shocked or receives treatment to terminate the arrhythmia. Her rhythm is stable now and she is no longer hypertensive. Some IV amiodarone was ordered but only the bolus was given, the drip was never started. An echocardiogram was performed earlier today findings of which are still pending as the exam has not yet been interpreted. At this point I would continue her current medical regimen which includes some metoprolol in place of the lisinopril for the time being. We will get an echocardiogram report and then determine if she seems to require antiarrhythmic drug therapy. I do not feel compelled to take this patient to the orthodontic laboratory technician at [facility] for evaluation of this is she was just underwent angiography last month following which she underwent multivessel bypass grafting. Judging from the operative note she may well not be completely revascularized given the heavily calcified diffusely diseased vessels that she is known to have. On the other hand I think 1 can safely and reasonably presume that she is optimally revascularized and I do not think there is much benefit are argument to returning her to the orthodontic laboratory technician this soon after surgery in this setting. Will leave further recommendations after her echocardiogram results are available Edward Potter MD [facility] History of Present Illness History of Present Illness Consult date/time: 11/09/21 12:39 Consult reason: Other (Ventricular arrhythmia) Reason For Visit: Gastroenteritis with dehydration Narrative: this is a 46-year-old woman who is known to me from a recent admission here at [facility]. She is known to have severe multivessel coronary artery disease and end-stage renal disease on chronic hemodialysis. She was undergoing hemodialysis yesterday after she was admitted to the hospital the day before with a 2-3 day history of some nausea vomiting and diarrhea. She had missed a day of dialysis at home because of this. During dialysis yesterday afternoon early evening she apparently had some ventricular arrhythmia is noted. According to what I read in the chart a code was called and she might have got CPR for a short time. Her cardiac rhythm demonstrated wide QRS tachycardia most compatible with ventricular tachycardia but this arrhythmia was self-limited and looks like lasted about 7 or 8 beats in duration. She did not have to be cardioverted. She was transferred to the ICU for further evaluation and management. Following this event her electrocardiogram did show some diffuse ST segment depression and some ST elevation in lead AVR. Troponin levels did rise moderately following this but once again this is a dialysis patient. At this time of this consultation she is comfortable asymptomatic and offers no other complaints. She is a patient with coronary artery disease and receives her cardiac care by 1 of the physicians and at [facility]. She has undergone percutaneous revascularization of her right coronary artery on several occasions. When she came here at [facility] in September of this year there was evidence of acute coronary syndrome once again. She was brought to our cardiac catheterization lab catheterization and was found to have high-grade stenosis in the left main coronary artery as well as in the proximal LAD. The right coronary that had been intervened on numerous times in the past did not have any high-grade lesion. She was transferred to [place] with a balloon pump placed bypass grafting. This was done at [facility] where she received an internal mammary graft to the LAD a saphenous vein graft to the 1st obtuse marginal and a saphenous vein graft to the PDA.
[2021-11-09] MEDS: ACETAMINOPHEN 500 MG TABLET PO (14:30)
--- NOTE | 2021-11-09 17:22 | PM.PNNEP ---
Progress Note: A&P Assessment and Plan (1) End stage renal disease on dialysis: Code(s): N18.6 - End stage renal disease; Z99.2 - Dependence on renal dialysis Status: Acute Assessment and Plan: end-stage renal disease diabetic gastroparesis exacerbation with nausea and vomiting this has caused metabolic alkalosis and currently has also respiratory alkalosis has presence of lactic acidosis and also ketoacidosis recent CABG reported ventricular tachycardia dialysis hypokalemia earlier anemia of chronic kidney disease rule out underlying sepsis with leukocytosis possible pneumonia per CT hypocalcemia dehydration plan: - no dialysis staff available today to dialyze - labs noted - bicarbonate level still high - still on IV fluids which we will discontinue once eating - looking overall better - due to lack of dialysis staff we will dialyze patient tomorrow - follow closely - treat hypocalcemia Subjective Date/time seen: 11/09/21 17:22 Interval history: seen in the intensive care unit. Feels a bit better. Breathing is better. No nausea today. Wants to eat. echocardiogram shows ejection fraction 50%, grade 1 diastolic heart failure. Review of Systems Review of Systems: As indicated above Exam Const: General: no acute distress Other: looks ill HENMT: Mouth: Yes moist mucous membranes Eyes: Sclera: sclerae normal Other: some periorbital edema Neck: Neck: no JVD Resp: Effort & Inspection: normal respiratory effort Auscultation: clear to auscultation bilaterally Cardio: Rate: regular rate Rhythm: regular rhythm GI: GI Palp: Yes Soft to palpation and No Tenderness to palpation present (GI) Skin: General skin exam: normal color and no rashes or lesions noted Neuro: Speech: normal speech Other: seems globally weak Extrem: General: normal to inspection and no edema Psych: Mental Status: mental status grossly normal Affect: Anxious affect present Objective Data Vital Signs Vital Signs: Vital Signs - 24 hr 11/08/21 18:00 11/08/21 20:00 11/08/21 20:20 Temperature 36.8 C Pulse Rate 94 86 87 Respiratory Rate 46 H Blood Pressure 90/60 L 90/60 L Pulse Oximetry 93 11/08/21 20:21 11/08/21 22:00 11/08/21 22:15 Temperature Pulse Rate 86 Respiratory Rate 23 H Blood Pressure Pulse Oximetry 98 100 11/09/21 00:00 11/09/21 02:00 11/09/21 02:04 Temperature 37.1 C Pulse Rate 77 78 85 Respiratory Rate 10 L 14 Blood Pressure 100/46 L Pulse Oximetry 100 100 11/09/21 04:00 11/09/21 06:00 11/09/21 08:00 Temperature 36.5 C 36.6 C Pulse Rate 74 79 71 Respiratory Rate 20 21 H Blood Pressure 118/32 L 109/45 L Pulse Oximetry 100 92 11/09/21 10:00 11/09/21 10:58 11/09/21 12:00 Temperature 36.9 C Pulse Rate 79 82 Respiratory Rate 28 H Blood Pressure 108/75 Pulse Oximetry 100 100 11/09/21 14:00 11/09/21 16:00 Temperature 36.7 C Pulse Rate 83 84 Respiratory Rate 20 Blood Pressure 102/65 Pulse Oximetry 100 Intake/Output Intake/Output: Intake & Output 11/06/21 11/07/21 11/08/21 11/09/21 23:59 23:59 23:59 23:59 Intake Total 940 1640 0 Output Total 300 0 Balance 940 1340 0 Meds/Results Medications: Active Medications Generic Name Dose Route Start Last Admin Trade Name Freq PRN Reason Stop Dose Admin Acetaminophen 500 mg 11/08/21 07:42 11/09/21 14:30 Acetaminophen 500 Mg Tablet PO 500 mg Q6H PRN Administration Pain Aspirin 81 mg 11/08/21 09:00 11/09/21 16:51 Aspirin 81 Mg Enteric Tablet PO Not Given DAILY [facility] Atorvastatin Calcium 40 mg 11/08/21 09:00 11/09/21 16:51 Atorvastatin 40 Mg Tablet PO Not Given DAILY [facility] Clopidogrel Bisulfate 75 mg 11/08/21 09:00 11/09/21 16:51 Clopidogrel Bisulfate 75 Mg Tablet PO Not Given DAILY [facility]ON Dextrose 12.5 gm 11/07/21 13:15 Dextrose 50% 25 Gm/50 Ml Syringe IV PUSH PRN PRN Hypogl
[2021-11-09] MEDS: calcitrioL 0.25 MCG CAPSULE PO (17:56)
[2021-11-09] MEDS: DEXTROSE 50% 25 GM/50 ML SYRINGE IV PUSH (17:56)
[2021-11-09] MEDS: CHOLECALCIFEROL 1,000 UNITS TABLET 2000 UNITS PO (17:56)
[2021-11-09] MEDS: METOCLOPRAMIDE HCL 10 MG/10 ML SOLN UDC PO ×2 (18:02→21:24)
[2021-11-09 19:41] LABS: Glucose Point of Care 39 mg/dl (65-105)
[2021-11-09 19:42] LABS: Glucose Point of Care 223 mg/dl (65-105)
[2021-11-09 19:42] LABS: Glucose Point of Care 151 mg/dl (65-105)
[2021-11-09 19:42] LABS: Glucose Point of Care 41 mg/dl (65-105)
[2021-11-09] MEDS: CALCIUM CARBONATE (TUMS) 500 MG (200 MG ELEMENTAL) 400 MG PO (21:22)
--- NOTE | 2021-11-09 22:17 | PC.NURSE ---
This patient, Pamela Bhat, was transferred to [ 200] on 11/09/21 at 2217. Personal belongings sent with patient. Report given to [ Lolita WAYNE]. Appropriate documentation sent with patient.
--- NOTE | 2021-11-09 22:24 | PC.NURSE ---
This patient, Pamela Bhat, was received from ICU 8 on 11/09/21 at 2217. Patient oriented to unit policies and routines
[2021-11-09 23:24] LABS: Glucose Point of Care 127 mg/dl (65-105)
[2021-11-10] VITALS (32 sets, daily range): BP systolic 110–153; BP diastolic 31–99; PULSE 68–98; RESP 16–21; TEMP 35.2–37.2; O2SAT 94–100
--- NOTE | 2021-11-10 04:28 | PC.NURSE ---
POC 68. Patient prefers 4oz. apple juice over glucose gel. Remains alert and oriented x 3. Will recheck POC in one hour.
[2021-11-10 04:40] LABS: Glucose Point of Care 68 mg/dl (65-105)
[2021-11-10 05:15] LABS: Glucose Point of Care 89 mg/dl (65-105)
--- NOTE | 2021-11-10 05:16 | PC.NURSE ---
Repeat POC 89. Patient remains alert and oriented.
[2021-11-10 05:50] LABS: Hematocrit 30.9 % (37.0-47.0); Hemoglobin 9.8 g/dL (12.0-15.0); Mean Corpuscular HGB Conc 31.7 g/dl (32-36); Mean Corpuscular Hemoglobin 32.5 pg (26-34); Mean Corpuscular Volume 102.3 fl (80-100); Mean Platelet Volume 10.9 fl (7.4-10.4); Platelet Count Result 161 k/mm3 (150-375); Red Blood Count 3.02 M/mm3 (4.2-5.4); Red Cell Distribution Width 14.9 % (11.5-14.5); White Blood Count 8.8 K/mm3 (4.5-10.0)
[2021-11-10 06:08] LABS: Alanine Aminotransferase 10 U/L (6-35); Albumin Level 3.4 g/dL (3.5-5.1); Alkaline Phosphatase 110 U/L (38-126); Aspartate Amino Transferase 27 U/L (14-36); Bilirubin,Total 0.9 mg/dL (0.2-1.3); Blood Urea Nitrogen 76 mg/dL (7-17); Calcium 6.5 mg/dL (8.4-10.2); Carbon Dioxide > 40 mmol/L (22-30); Chloride 80 mmol/L (98-107); Estimated CRCL calculation 6 ml/min; Estimated Glomerular Filt Rate 5; Glucose 84 mg/dL (65-110); Phosphorus 8.3 mg/dL (2.5-4.5); Potassium 3.4 mmol/L (3.4-5.0); Sodium 137 mmol/L (137-145)
--- NOTE | 2021-11-10 06:26 | PM.PNNEP ---
Progress Note: A&P Assessment and Plan (1) End stage renal disease on dialysis: Code(s): N18.6 - End stage renal disease; Z99.2 - Dependence on renal dialysis Status: Acute Assessment and Plan: end-stage renal disease diabetic gastroparesis exacerbation with nausea and vomiting this has caused metabolic alkalosis and currently has also respiratory alkalosis has presence of lactic acidosis and also ketoacidosis recent CABG reported ventricular tachycardia dialysis hypokalemia earlier anemia of chronic kidney disease rule out underlying sepsis with leukocytosis possible pneumonia per CT hypocalcemia dehydration plan: -patient will be dialyzed today, ultrafilter 1 L at the most today - labs noted - bicarbonate level still high, would recommend changing Renvela to Renagel on an outpatient basis - Hep-Lock IV - looking overall better - due to lack of dialysis staff dialysis will be carried out today, will try 1 L of fluid will - treat hypocalcemia: On treatment -follow Subjective Date/time seen: 11/10/21 06:26 Patient feels better. Feels a bit tight. However is not short of breath. No chest pain. She has now moved out of the intensive care unit. She is due for hemodialysis today. Denies any nausea vomiting. Exam Narrative: Well developed well nourished, looks better today, some periorbital puffiness which is usual for the patient, skin turgor normal, moist oral mucosa, JVD negative, regular rate rhythm, no gallop clinical results: [place], soft nontender abdomen: Edema negative Objective Data Vital Signs Vital Signs: Vital Signs - 24 hr 11/09/21 08:00 11/09/21 10:00 11/09/21 10:58 Temperature 36.6 C Pulse Rate 71 79 Respiratory Rate 21 H Blood Pressure 109/45 L Pulse Oximetry 92 100 11/09/21 12:00 11/09/21 14:00 11/09/21 16:00 Temperature 36.9 C 36.7 C Pulse Rate 82 83 84 Respiratory Rate 28 H 20 Blood Pressure 108/75 102/65 Pulse Oximetry 100 100 11/09/21 18:00 11/09/21 20:00 11/09/21 20:41 Temperature 37.1 C Pulse Rate 80 75 77 Respiratory Rate 22 H Blood Pressure 104/39 L Pulse Oximetry 94 94 11/09/21 21:15 11/09/21 22:00 11/09/21 22:20 Temperature 36.2 C L Pulse Rate 79 81 87 Respiratory Rate 18 Blood Pressure 115/33 L Pulse Oximetry 97 11/09/21 22:26 11/09/21 22:29 11/09/21 23:24 Temperature 36.4 C Pulse Rate 83 80 Respiratory Rate 18 Blood Pressure 125/57 L Pulse Oximetry 97 98 11/10/21 00:00 11/10/21 00:46 11/10/21 02:00 Temperature Pulse Rate 76 74 Respiratory Rate 21 H Blood Pressure Pulse Oximetry 98 97 11/10/21 02:26 11/10/21 04:00 Temperature 36.5 C Pulse Rate 69 Respiratory Rate 19 20 Blood Pressure 118/74 Pulse Oximetry 94 100 Intake/Output Intake/Output: Intake & Output 11/07/21 11/08/21 11/09/21 11/10/21 23:59 23:59 23:59 23:59 Intake Total 940 1640 1400 444 Output Total 300 0 0 Balance 940 1340 1400 444 Meds/Results Medications: Active Medications Generic Name Dose Route Start Last Admin Trade Name Petarq PRN Reason Stop Dose Admin Acetaminophen 500 mg 11/08/21 07:42 11/09/21 14:30 Acetaminophen 500 Mg Tablet PO 500 mg Q6H PRN Administration Pain Aspirin 81 mg 11/08/21 09:00 11/09/21 16:51 Aspirin 81 Mg Enteric Tablet PO Not Given DAILY [facility] Atorvastatin Calcium 40 mg 11/08/21 09:00 11/09/21 16:51 Atorvastatin 40 Mg Tablet PO Not Given DAILY [facility] Calcitriol 0.25 mcg 11/09/21 09:00 11/09/21 17:56 Calcitriol 0.25 Mcg Capsule PO 0.25 mcg QAM [facility] Administration Calcium Carbonate 400 mg 11/09/21 21:25 11/09/21 21:22 Calcium Carbonate (Tums) 500 Mg (200 Mg Elemental) PO 400 mg QID [facility] Administration Clopidogrel Bisulfate 75 mg 11/08/21 09:00 11/09/21 16:51 Clopidogrel Bisulfate 75 Mg Tablet PO Not Given DAILY [facility] Dextrose 12.5 gm 11/07/21 13:15 11/09/21 17:56 Dextrose 50% 25
[2021-11-10] MEDS: METOCLOPRAMIDE HCL 10 MG/10 ML SOLN UDC PO ×4 (06:30→20:12)
[2021-11-10 06:46] LABS: Vancomycin Random 12.6 ug/mL (10-20)
--- NOTE | 2021-11-10 06:48 | PC.NURSE ---
Call placed to [facility] answering service for bank operations officer dialysis nurse to call for dialysis orders. They will call back around 0700, today.
[2021-11-10 08:11] LABS: Glucose Point of Care 107 mg/dl (65-105)
--- NOTE | 2021-11-10 08:38 | PC.NURSE ---
Patient transported to dialysis with staff. Patient alert and oriented, no distress or complaints at this time.
[2021-11-10 09:25] LABS: Albumin Level 3.2 g/dL (3.5-5.1)
--- NOTE | 2021-11-10 09:32 | PM.PNCARD ---
Progress Note: A&P Assessment and Plan (1) Ventricular tachycardia: Code(s): I47.2 - Ventricular tachycardia Status: Acute Assessment and Plan: EF is low normal. Will need at least an outpatient monitor upon discharge and follow-up with primary cardiology. Continue on inpatient monitor for now (2) Coronary disease: Code(s): I25.10 - Atherosclerotic heart disease of [place] coronary artery without angina pectoris Status: Acute Assessment and Plan: Continue current meds including beta-jaye, aspirin, clopidogrel (3) End stage renal disease: Code(s): N18.6 - End stage renal disease Status: Acute Assessment and Plan: Undergoing dialysis (4) Non-ST elevation myocardial infarction (NSTEMI): Code(s): I21.4 - Non-ST elevation (NSTEMI) myocardial infarction Status: Acute Assessment and Plan: She did have a significant bump in troponins consistent with non ST-elevation myocardial infarction. Review by Dr. Potter who did not feel that the patient needed a repeat coronary angiogram. Subjective Date/time seen: 11/10/21 09:32 Interval history: his is a 46-year-old woman who is known to me from a recent admission here at [facility]. She is known to have severe multivessel coronary artery disease and end-stage renal disease on chronic hemodialysis. She was undergoing hemodialysis yesterday after she was admitted to the hospital the day before with a 2-3 day history of some nausea vomiting and diarrhea. She had missed a day of dialysis at home because of this. During dialysis yesterday afternoon early evening she apparently had some ventricular arrhythmia is noted. According to what I read in the chart a code was called and she might have got CPR for a short time. Her cardiac rhythm demonstrated wide QRS tachycardia most compatible with ventricular tachycardia but this arrhythmia was self-limited and looks like lasted about 7 or 8 beats in duration. She did not have to be cardioverted. She was transferred to the ICU for further evaluation and management. Following this event her electrocardiogram did show some diffuse ST segment depression and some ST elevation in lead AVR. Troponin levels did rise moderately following this but once again this is a dialysis patient. At this time of this consultation she is comfortable asymptomatic and offers no other complaints. She is a patient with coronary artery disease and receives her cardiac care by 1 of the physicians and at [place]. She has undergone percutaneous revascularization of her right coronary artery on several occasions. When she came here at [facility] in September of this year there was evidence of acute coronary syndrome once again. She was brought to our cardiac catheterization lab catheterization and was found to have high-grade stenosis in the left main coronary artery as well as in the proximal LAD. The right coronary that had been intervened on numerous times in the past did not have any high-grade lesion. She was transferred to [place] with a balloon pump placed bypass grafting. This was done at [facility] where she received an internal mammary graft to the LAD a saphenous vein graft to the 1st obtuse marginal and a saphenous vein graft to the PDA. The surgeons detailed notes from the operation indicate that radial artery was not of sufficient quality to be used as a graft and the quality of the veins was also not ideal. Her coronary arteries were all heavily calcified diffusely diseased vessels. The note does say state there was good flow in all the grafts at the end of the procedure and she was discharged in stable condition. Date of service 11/10/2021: Patient is seen in dialysis. She is quiet but denies any chest pain or shortness of breath. Review of Systems Constitutional: Constitutional: Reports weakness Eyes: Eyes: Reports no additional eye complaints ENT: Reports system reviewed
--- NOTE | 2021-11-10 13:06 | P.PNIM_ITS ---
Progress Note: A&P Assessment and Plan (1) Cardiac arrest: Code(s): I46.9 - Cardiac arrest, cause unspecified Status: Acute Assessment and Plan: Patient received 1 dose of amiodarone post her cardiac arrest as a brief V-tach was seen on telemetry.. She has been in normal sinus rhythm since then and has not required any further antiarrhythmic infusion It is quite possible the patient was hypovolemic from her nausea vomiting and diarrhea and once she was placed on hemodialysis she became hypotensive leading to PEA arrest Continue serial troponin Check echo Check CT chest Continue empiric antibiotics Cultures have been sent Patient has been getting cautious IV fluids for dehydration as her last record EF was 30-35% on echo which was done prior to her CABG (2) Elevated troponin: Code(s): R77.8 - Other specified abnormalities of plasma proteins Status: Acute Assessment and Plan: Patient has history of coronary disease and had CABG last month Now she has elevated troponin in presence of an segment disease and she had a brief cardiac arrest yesterday She denies any chest pain at this time EKG was abnormal with ST changes, cardiology was consulted and recommended conservative management Continue aspirin Plavix statin Patient not on Beta-jaye as an outpatient AZUCENA-inhibitor on hold due to low blood pressure this morning Check echocardiogram Continue serial troponin levels Repeat EKG now Discussed with Dr. Potter who will evaluate patient and also reviewed patient's echocardiogram (3) Gastroenteritis: Code(s): K52.9 - Noninfective gastroenteritis and colitis, unspecified Status: Acute Assessment and Plan: Patient presented with presentation of nausea vomiting and diarrhea and has had similar presentation in the past which was managed conservatively She also has gastroparesis She was given IV fluids Add Reglan Check CT abdomen pelvis (4) End stage renal disease on dialysis: Code(s): N18.6 - End stage renal disease; Z99.2 - Dependence on renal dialysis Status: Acute Assessment and Plan: Nephrology is following and hemodialysis per Nephrology (5) Insulin dependent diabetes mellitus: Status: Acute Assessment and Plan: Add Lantus Continue sliding scale but change to every 4 hours for better control Her blood glucose is only 125 at this time. She had elevated beta hydroxybutyrate yesterday but was alkalotic. I will repeat it and check BMP. (6) GERD (gastroesophageal reflux disease): Code(s): K21.9 - Gastro-esophageal reflux disease without esophagitis Status: Acute Assessment and Plan: Add PPI (7) Chest pain: Qualifiers: Chest pain type: unspecified Qualified Code(s): R07.9 - Chest pain, unspecified Code(s): R07.9 - Chest pain, unspecified Status: Acute Assessment and Plan: Patient at this time reports chest pain but is tender on both sides of sternal and I suspect patient may have sustained rib fractures from CPR. Patient also had recent sternotomy Check CT chest (8) Metabolic alkalosis: Code(s): E87.3 - Alkalosis Status: Acute Assessment and Plan: Could be secondary to vomiting Continue normal saline Lasix and several made on hold (9) Gastroparesis: Code(s): K31.84 - Gastroparesis Status: Acute Assessment and Plan: Resume Reglan (10) Sepsis: Code(s): A41.9 - Sepsis, unspecified organism Status: Acute Assessment and Plan: She had elevat
[2021-11-10 13:11] LABS: Glucose Point of Care 98 mg/dl (65-105)
[2021-11-10] MEDS: CALCIUM CARBONATE (TUMS) 500 MG (200 MG ELEMENTAL) 400 MG PO ×3 (13:41→20:12)
[2021-11-10] MEDS: calcitrioL 0.25 MCG CAPSULE PO (13:41)
[2021-11-10] MEDS: METOPROLOL TARTRATE 6.25 MG TABLET PO ×2 (13:42→20:12)
[2021-11-10] MEDS: HEPARIN SODIUM 5,000 UNITS/ML VIAL 5000 UNITS SUB-Q ×2 (13:42→20:11)
[2021-11-10] MEDS: PANTOPRAZOLE SODIUM IV 40 MG VIAL IV PUSH (13:42)
[2021-11-10] MEDS: THERAPEUTIC MULTIVITAMINS/MINERALS TAB (*BKC) 1 TABLET PO (13:43)
[2021-11-10] MEDS: CLOPIDOGREL BISULFATE 75 MG TABLET PO (13:43)
[2021-11-10] MEDS: ASPIRIN 81 MG ENTERIC TABLET PO (13:44)
[2021-11-10] MEDS: ATORVASTATIN 40 MG TABLET PO (13:44)
[2021-11-10 16:59] LABS: Glucose Point of Care 255 mg/dl (65-105)
[2021-11-10] MEDS: INSULIN ASPART (*BKC) 100 UNITS/ML SUB-Q ×2 (18:07→23:47)
[2021-11-10 20:15] LABS: Glucose Point of Care 226 mg/dl (65-105)
[2021-11-10 23:31] LABS: Glucose Point of Care 258 mg/dl (65-105)
[2021-11-11] VITALS (20 sets, daily range): BP systolic 130–157; BP diastolic 44–88; PULSE 73–97; RESP 16–91; TEMP 36.2–37.2; O2SAT 94–100
[2021-11-11 04:00] LABS: Glucose Point of Care 325 mg/dl (65-105)
[2021-11-11] MEDS: INSULIN ASPART (*BKC) 100 UNITS/ML SUB-Q ×4 (04:05→21:02)
[2021-11-11 04:51] LABS: Hematocrit 29.1 % (37.0-47.0); Hemoglobin 8.8 g/dL (12.0-15.0); Mean Corpuscular HGB Conc 30.2 g/dl (32-36); Mean Corpuscular Hemoglobin 32.5 pg (26-34); Mean Corpuscular Volume 107.4 fl (80-100); Mean Platelet Volume 11.2 fl (7.4-10.4); Platelet Count Result 134 k/mm3 (150-375); Red Blood Count 2.71 M/mm3 (4.2-5.4); Red Cell Distribution Width 14.7 % (11.5-14.5); White Blood Count 6.2 K/mm3 (4.5-10.0)
[2021-11-11 05:06] LABS: Alanine Aminotransferase 12 U/L (6-35); Albumin Level 3.2 g/dL (3.5-5.1); Alkaline Phosphatase 120 U/L (38-126); Anion Gap 8 mmol/L (8-16); Aspartate Amino Transferase 23 U/L (14-36); Bilirubin,Total 0.6 mg/dL (0.2-1.3); Blood Urea Nitrogen 38 mg/dL (7-17); Calcium 7.7 mg/dL (8.4-10.2); Carbon Dioxide 33 mmol/L (22-30); Chloride 95 mmol/L (98-107); Estimated CRCL calculation 11 ml/min; Estimated Glomerular Filt Rate 9; Glucose 324 mg/dL (65-110); Potassium 4.2 mmol/L (3.4-5.0); Sodium 136 mmol/L (137-145)
[2021-11-11] MEDS: METOCLOPRAMIDE HCL 10 MG/10 ML SOLN UDC PO ×4 (06:24→20:08)
[2021-11-11 08:37] LABS: Glucose Point of Care 154 mg/dl (65-105)
--- NOTE | 2021-11-11 09:42 | PM.PNCARD ---
Progress Note: A&P Assessment and Plan (1) Ventricular tachycardia: Code(s): I47.2 - Ventricular tachycardia Status: Acute Assessment and Plan: EF is low normal. Will need at least an outpatient monitor if not a life vest upon discharge and follow-up with primary cardiology. Continue on inpatient monitor for now. Increase metoprolol to 12.5 mg p.o. b.i.d. (2) Coronary disease: Code(s): I25.10 - Atherosclerotic heart disease of [place] coronary artery without angina pectoris Status: Acute Assessment and Plan: Continue current meds including beta-jaye, aspirin, clopidogrel (3) End stage renal disease: Code(s): N18.6 - End stage renal disease Status: Acute Assessment and Plan: Undergoing dialysis (4) Non-ST elevation myocardial infarction (NSTEMI): Code(s): I21.4 - Non-ST elevation (NSTEMI) myocardial infarction Status: Acute Assessment and Plan: She did have a significant bump in troponins consistent with non ST-elevation myocardial infarction. Review by Dr. Potter who did not feel that the patient needed a repeat coronary angiogram. Subjective Date/time seen: 11/11/21 09:42 Interval history: his is a 46-year-old woman who is known to me from a recent admission here at [place]. She is known to have severe multivessel coronary artery disease and end-stage renal disease on chronic hemodialysis. She was undergoing hemodialysis yesterday after she was admitted to the hospital the day before with a 2-3 day history of some nausea vomiting and diarrhea. She had missed a day of dialysis at home because of this. During dialysis yesterday afternoon early evening she apparently had some ventricular arrhythmia is noted. According to what I read in the chart a code was called and she might have got CPR for a short time. Her cardiac rhythm demonstrated wide QRS tachycardia most compatible with ventricular tachycardia but this arrhythmia was self-limited and looks like lasted about 7 or 8 beats in duration. She did not have to be cardioverted. She was transferred to the ICU for further evaluation and management. Following this event her electrocardiogram did show some diffuse ST segment depression and some ST elevation in lead AVR. Troponin levels did rise moderately following this but once again this is a dialysis patient. At this time of this consultation she is comfortable asymptomatic and offers no other complaints. She is a patient with coronary artery disease and receives her cardiac care by 1 of the physicians and at [place]. She has undergone percutaneous revascularization of her right coronary artery on several occasions. When she came here at [facility] in September of this year there was evidence of acute coronary syndrome once again. She was brought to our cardiac catheterization lab catheterization and was found to have high-grade stenosis in the left main coronary artery as well as in the proximal LAD. The right coronary that had been intervened on numerous times in the past did not have any high-grade lesion. She was transferred to [place] with a balloon pump placed bypass grafting. This was done at [facility] where she received an internal mammary graft to the LAD a saphenous vein graft to the 1st obtuse marginal and a saphenous vein graft to the PDA. The surgeons detailed notes from the operation indicate that radial artery was not of sufficient quality to be used as a graft and the quality of the veins was also not ideal. Her coronary arteries were all heavily calcified diffusely diseased vessels. The note does say state there was good flow in all the grafts at the end of the procedure and she was discharged in stable condition. Date of service 11/10/2021: Patient is seen in dialysis. She is quiet but denies any chest pain or shortness of breath. Date of service 11/11/2021: She is doing okay today. No acute complaints. No chest pain
[2021-11-11] MEDS: CALCIUM CARBONATE (TUMS) 500 MG (200 MG ELEMENTAL) 400 MG PO ×4 (09:48→20:08)
[2021-11-11] MEDS: calcitrioL 0.25 MCG CAPSULE PO (09:49)
[2021-11-11] MEDS: CLOPIDOGREL BISULFATE 75 MG TABLET PO (09:49)
[2021-11-11] MEDS: CHOLECALCIFEROL 1,000 UNITS TABLET 2000 UNITS PO (09:49)
[2021-11-11] MEDS: THERAPEUTIC MULTIVITAMINS/MINERALS TAB (*BKC) 1 TABLET PO (09:49)
[2021-11-11] MEDS: ASPIRIN 81 MG ENTERIC TABLET PO (09:49)
[2021-11-11] MEDS: ATORVASTATIN 40 MG TABLET PO (09:49)
[2021-11-11] MEDS: HEPARIN SODIUM 5,000 UNITS/ML VIAL 5000 UNITS SUB-Q ×2 (09:50→20:09)
[2021-11-11] MEDS: METOPROLOL TARTRATE 6.25 MG TABLET PO (09:50)
[2021-11-11] MEDS: PANTOPRAZOLE SODIUM IV 40 MG VIAL IV PUSH (09:50)
[2021-11-11 11:59] LABS: Glucose Point of Care 353 mg/dl (65-105)
[2021-11-11 16:59] LABS: Glucose Point of Care 344 mg/dl (65-105)
[2021-11-11] MEDS: BENZOCAINE/MENTHOL (*BKC) 18 EA LOZENGE 1 LOZENGE PO (17:10)
[2021-11-11] MEDS: METOPROLOL TARTRATE 12.5 MG TABLET PO (20:09)
[2021-11-11 20:36] LABS: Glucose Point of Care 378 mg/dl (65-105)
[2021-11-12] VITALS (14 sets, daily range): BP systolic 138–162; BP diastolic 62–69; PULSE 80–90; RESP 17–20; TEMP 36.5–37.1; O2SAT 96–100
[2021-11-12 04:53] LABS: Hematocrit 28.1 % (37.0-47.0); Hemoglobin 8.8 g/dL (12.0-15.0); Mean Corpuscular HGB Conc 31.3 g/dl (32-36); Mean Corpuscular Hemoglobin 32.5 pg (26-34); Mean Corpuscular Volume 103.7 fl (80-100); Mean Platelet Volume 11.4 fl (7.4-10.4); Platelet Count Result 129 k/mm3 (150-375); Red Blood Count 2.71 M/mm3 (4.2-5.4); Red Cell Distribution Width 14.6 % (11.5-14.5); White Blood Count 7.4 K/mm3 (4.5-10.0)
[2021-11-12 05:24] LABS: Alanine Aminotransferase 10 U/L (6-35); Albumin Level 3.4 g/dL (3.5-5.1); Alkaline Phosphatase 112 U/L (38-126); Anion Gap 9 mmol/L (8-16); Aspartate Amino Transferase 20 U/L (14-36); Bilirubin,Total 0.4 mg/dL (0.2-1.3); Blood Urea Nitrogen 60 mg/dL (7-17); Calcium 7.9 mg/dL (8.4-10.2); Carbon Dioxide 30 mmol/L (22-30); Chloride 95 mmol/L (98-107); Estimated CRCL calculation 10 ml/min; Estimated Glomerular Filt Rate 7; Glucose 257 mg/dL (65-110); Magnesium 2.2 mg/dL (1.6-2.3); Potassium 4.9 mmol/L (3.4-5.0); Sodium 134 mmol/L (137-145)
[2021-11-12] MEDS: METOCLOPRAMIDE HCL 10 MG/10 ML SOLN UDC PO ×3 (06:35→21:27)
[2021-11-12 08:21] LABS: Glucose Point of Care 312 mg/dl (65-105)
[2021-11-12] MEDS: HEPARIN SODIUM 5,000 UNITS/ML VIAL 5000 UNITS SUB-Q ×2 (08:31→21:27)
[2021-11-12] MEDS: CLOPIDOGREL BISULFATE 75 MG TABLET PO (08:31)
[2021-11-12] MEDS: THERAPEUTIC MULTIVITAMINS/MINERALS TAB (*BKC) 1 TABLET PO (08:31)
[2021-11-12] MEDS: PANTOPRAZOLE SODIUM IV 40 MG VIAL IV PUSH (08:31)
[2021-11-12] MEDS: METOPROLOL TARTRATE 12.5 MG TABLET PO ×2 (08:31→21:27)
[2021-11-12] MEDS: CHOLECALCIFEROL 1,000 UNITS TABLET 2000 UNITS PO (08:31)
[2021-11-12] MEDS: ATORVASTATIN 40 MG TABLET PO (08:32)
[2021-11-12] MEDS: ASPIRIN 81 MG ENTERIC TABLET PO (08:32)
[2021-11-12] MEDS: calcitrioL 0.25 MCG CAPSULE PO (08:32)
[2021-11-12] MEDS: CALCIUM CARBONATE (TUMS) 500 MG (200 MG ELEMENTAL) 400 MG PO ×3 (08:32→19:55)
[2021-11-12] MEDS: INSULIN ASPART (*BKC) 100 UNITS/ML SUB-Q ×3 (08:36→18:41)
--- NOTE | 2021-11-12 08:48 | PM.PNCARD ---
Progress Note: A&P Additional Plan 46-year-old lady with: Diffuse multivessel coronary disease status post surgical revascularization last month. She has end-stage renal disease and during hemodialysis last week became hypotensive and had a run of nonsustained ventricular tachycardia. Admission here following that event. She has been placed on metoprolol and has had no further arrhythmias. She had been on lisinopril 20 mg per day. I am going to resume that today at 10 mg since we are adding the beta-jaye and would like to avoid hypotension. Spoke to the patient at some length this morning regarding these events. She at this point I do not believe needs a defibrillator since the inciting event was probably hypotension related to dialysis that was complicated by a diarrheal illness that was going on for several days before this. She should follow-up at and a short interval with her undercover operator at [facility]. I am going to call them today to make them aware of this situation. If she is stable discharge today after dialysis is fine with me. Edward Potter MD [facility] Subjective Date/time seen: Date of service: 11/12/21 08:48 Interval history: his is a 46-year-old woman who is known to me from a recent admission here at [place]. She is known to have severe multivessel coronary artery disease and end-stage renal disease on chronic hemodialysis. She was undergoing hemodialysis yesterday after she was admitted to the hospital the day before with a 2-3 day history of some nausea vomiting and diarrhea. She had missed a day of dialysis at home because of this. During dialysis yesterday afternoon early evening she apparently had some ventricular arrhythmia is noted. According to what I read in the chart a code was called and she might have got CPR for a short time. Her cardiac rhythm demonstrated wide QRS tachycardia most compatible with ventricular tachycardia but this arrhythmia was self-limited and looks like lasted about 7 or 8 beats in duration. She did not have to be cardioverted. She was transferred to the ICU for further evaluation and management. Following this event her electrocardiogram did show some diffuse ST segment depression and some ST elevation in lead AVR. Troponin levels did rise moderately following this but once again this is a dialysis patient. At this time of this consultation she is comfortable asymptomatic and offers no other complaints. She is a patient with coronary artery disease and receives her cardiac care by 1 of the physicians and at [facility]. She has undergone percutaneous revascularization of her right coronary artery on several occasions. When she came here at [facility] in September of this year there was evidence of acute coronary syndrome once again. She was brought to our cardiac catheterization lab catheterization and was found to have high-grade stenosis in the left main coronary artery as well as in the proximal LAD. The right coronary that had been intervened on numerous times in the past did not have any high-grade lesion. She was transferred to [place] with a balloon pump placed bypass grafting. This was done at [facility] where she received an internal mammary graft to the LAD a saphenous vein graft to the 1st obtuse marginal and a saphenous vein graft to the PDA. The surgeons detailed notes from the operation indicate that radial artery was not of sufficient quality to be used as a graft and the quality of the veins was also not ideal. Her coronary arteries were all heavily calcified diffusely diseased vessels. The note does say state there was good flow in all the grafts at the end of the procedure and she was discharged in stable condition. Date of service 11/10/2021: Patient is seen in dialysis. She is quiet but denies any chest pain or shortness of breath. Date of service 11/11/2021: She is doing okay today. No acute complaints. No chest pain or shortness of breath Date of
[2021-11-12] MEDS: lisinopriL 10 MG TABLET PO (12:32)
[2021-11-12 12:35] LABS: Glucose Point of Care 373 mg/dl (65-105)
--- NOTE | 2021-11-12 15:13 | PC.NURSE ---
This patient, Pamela Bhat, was transferred to [[id number] ] on 11/12/21 at 1513. Personal belongings sent with patient. Report given to [ Deepika]. Appropriate documentation sent with patient.
--- NOTE | 2021-11-12 15:47 | PC.NURSE ---
This patient, Pamela Bhat, was received from [[facility]] on 11/12/21 at 1510. Patient/family oriented to unit policies and routines
[2021-11-12 16:57] LABS: Glucose Point of Care 245 mg/dl (65-105)
[2021-11-12] MEDS: INSULIN GLARGINE (*BKC) 100 UNITS/ML 10 UNITS SUB-Q (21:28)
[2021-11-12 21:33] LABS: Glucose Point of Care 183 mg/dl (65-105)
--- NOTE | 2021-11-12 21:50 | PM.PNNEP ---
Progress Note: A&P Assessment and Plan (1) End stage renal disease on dialysis: Code(s): N18.6 - End stage renal disease; Z99.2 - Dependence on renal dialysis Status: Acute Additional Plan end-stage renal disease diabetic gastroparesis exacerbation with nausea and vomiting this has caused metabolic alkalosis and currently has also respiratory alkalosis has presence of lactic acidosis and also ketoacidosis recent CABG reported ventricular tachycardia dialysis hypokalemia earlier anemia of chronic kidney disease rule out underlying sepsis with leukocytosis possible pneumonia per CT hypocalcemia dehydration plan: -ESRD: HD try in am -avf painful today -Nausea and emesis is better -HD in am Subjective Date/time seen: 11/12/21 21:50 Feels better, but has nausea AVF painful today at dailysis Exam Narrative: AVF is patent Const: General: no acute distress Neck: Neck: no JVD Resp: Effort & Inspection: normal respiratory effort Auscultation: clear to auscultation bilaterally Cardio: Rate: regular rate Rhythm: regular rhythm GI: GI Palp: Yes Soft to palpation Skin: General skin exam: normal color and no rashes or lesions noted Neuro: Speech: normal speech Extrem: General: normal to inspection and normal exam except as noted Psych: Mental Status: mental status grossly normal Affect: normal affect and Anxious affect present Objective Data Vital Signs Vital Signs: Vital Signs - 24 hr 11/11/21 22:00 11/11/21 22:55 11/11/21 23:30 Temperature 36.2 C L Pulse Rate 87 82 86 Respiratory Rate 20 20 Blood Pressure 151/70 H Pulse Oximetry 96 100 11/12/21 00:00 11/12/21 02:00 11/12/21 03:00 Temperature Pulse Rate 85 80 86 Respiratory Rate 18 Blood Pressure Pulse Oximetry 100 96 11/12/21 03:41 11/12/21 04:00 11/12/21 06:00 Temperature 36.8 C Pulse Rate 81 84 86 Respiratory Rate 17 Blood Pressure 138/64 Pulse Oximetry 100 100 11/12/21 08:00 11/12/21 08:23 11/12/21 08:31 Temperature 36.5 C Pulse Rate 86 86 87 Respiratory Rate 20 Blood Pressure 138/63 Pulse Oximetry 96 11/12/21 10:00 11/12/21 12:00 11/12/21 12:02 Temperature 37.1 C Pulse Rate 86 85 80 Respiratory Rate 20 Blood Pressure 153/69 H Pulse Oximetry 100 11/12/21 16:00 11/12/21 21:27 Temperature 37.0 C Pulse Rate 88 90 Respiratory Rate 18 Blood Pressure 162/62 H Pulse Oximetry 100 Intake/Output Intake/Output: Intake & Output 11/09/21 11/10/21 11/11/21 11/12/21 23:59 23:59 23:59 23:59 Intake Total 1450 2544 4192 1500 Output Total 0 500 0 0 Balance 1450 2044 4192 1500 Meds/Results Medications: Active Medications Generic Name Dose Route Start Last Admin Trade Name Freq PRN Reason Stop Dose Admin Acetaminophen 500 mg 11/08/21 07:42 11/09/21 14:30 Acetaminophen 500 Mg Tablet PO 500 mg Q6H PRN Administration Pain Aspirin 81 mg 11/08/21 09:00 11/12/21 08:32 Aspirin 81 Mg Enteric Tablet PO 81 mg DAILY JOHNSON Administration Atorvastatin Calcium 40 mg 11/08/21 09:00 11/12/21 08:32 Atorvastatin 40 Mg Tablet PO 40 mg DAILY JOHNSON Administration Benzocaine 1 lozenge 11/11/21 15:42 11/11/21 17:10 Benzocaine/Menthol (*Bkc) 18 Ea Lozenge PO 1 lozenge PRN PRN Administration Sore Throat Calcitriol 0.25 mcg 11/09/21 09:00 11/12/21 08:32 Calcitriol 0.25 Mcg Capsule PO 0.25 mcg QAM JOHNSON Administration Calcium Carbonate 400 mg 11/09/21 21:25 11/12/21 19:55 Calcium Carbonate (Tums) 500 Mg (200 Mg Elemental) PO 400 mg QID JOHNSON Administration Clopidogrel Bisulfate 75 mg 11/08/21 09:00 11/12/21 08:31 Clopidogrel Bisulfate 75 Mg Tablet PO 75 mg DAILY JOHNSON Administration Dextrose 12.5 gm 11/07/21 13:15 11/09/21 17:56 Dextrose 50% 25 Gm/50 Ml Syringe IV PUSH 12.5 gm PRN PRN Administration Hypoglycemia Protocol Glucagon 1 mg 11/07/21 13:15 Glucagon
[2021-11-13] VITALS (8 sets, daily range): BP systolic 139–151; BP diastolic 64–77; PULSE 74–104; RESP 18–22; TEMP 35.5–37.1; O2SAT 96–100
[2021-11-13 06:19] LABS: Hematocrit 27.3 % (37.0-47.0); Hemoglobin 8.4 g/dL (12.0-15.0); Mean Corpuscular HGB Conc 30.8 g/dl (32-36); Mean Corpuscular Hemoglobin 32.2 pg (26-34); Mean Corpuscular Volume 104.6 fl (80-100); Mean Platelet Volume 11.3 fl (7.4-10.4); Platelet Count Result 125 k/mm3 (150-375); Red Blood Count 2.61 M/mm3 (4.2-5.4); Red Cell Distribution Width 14.6 % (11.5-14.5); White Blood Count 9.9 K/mm3 (4.5-10.0)
[2021-11-13] MEDS: METOCLOPRAMIDE HCL 10 MG/10 ML SOLN UDC PO ×4 (06:26→20:18)
[2021-11-13 06:34] LABS: Alanine Aminotransferase 13 U/L (6-35); Albumin Level 3.4 g/dL (3.5-5.1); Alkaline Phosphatase 121 U/L (38-126); Anion Gap 11 mmol/L (8-16); Aspartate Amino Transferase 30 U/L (14-36); Bilirubin,Total 0.5 mg/dL (0.2-1.3); Blood Urea Nitrogen 76 mg/dL (7-17); Calcium 8.7 mg/dL (8.4-10.2); Carbon Dioxide 29 mmol/L (22-30); Chloride 93 mmol/L (98-107); Estimated CRCL calculation 9 ml/min; Estimated Glomerular Filt Rate 6; Glucose 147 mg/dL (65-110); Magnesium 2.3 mg/dL (1.6-2.3); Potassium 5.3 mmol/L (3.4-5.0); Sodium 133 mmol/L (137-145)
[2021-11-13 07:34] LABS: Glucose Point of Care 146 mg/dl (65-105)
[2021-11-13] MEDS: PANTOPRAZOLE SODIUM IV 40 MG VIAL IV PUSH (09:24)
[2021-11-13] MEDS: HEPARIN SODIUM 5,000 UNITS/ML VIAL 5000 UNITS SUB-Q ×2 (09:25→20:19)
[2021-11-13] MEDS: CALCIUM CARBONATE (TUMS) 500 MG (200 MG ELEMENTAL) 400 MG PO ×4 (09:25→20:17)
--- NOTE | 2021-11-13 10:16 | PM.PNNEP ---
Progress Note: A&P Assessment and Plan (1) End stage renal disease on dialysis: Code(s): N18.6 - End stage renal disease; Z99.2 - Dependence on renal dialysis Status: Acute Assessment and Plan: end-stage renal disease diabetic gastroparesis exacerbation with nausea and vomiting this has caused metabolic alkalosis and currently has also respiratory alkalosis has presence of lactic acidosis and also ketoacidosis recent CABG reported ventricular tachycardia dialysis hypokalemia earlier anemia of chronic kidney disease rule out underlying sepsis with leukocytosis possible pneumonia per CT hypocalcemia dehydration plan: -ESRD: HD this morning -apparently used BiPAP last night. If can come off can potentially be discharged -treatment of underlying gastroparesis per primary team -treatment of hypocalcemia per orders -follow-up Subjective Date/time seen: 11/13/21 10:16 Seen and examined this morning. Patient is feeling better generally. Left upper arm AV shunt his presenting no problems currently. There is some lower extremity swelling. She used BiPAP overnight. Exam Narrative: Well-developed well-nourished, vital signs as stated, skin turgor normal, no pallor, no icterus, moist oral mucosa, JVD negative car regular rate rhythm, no gallop, no rub, equal breath sounds II views, soft nontender abdomen, edema present Objective Data Vital Signs Vital Signs: Vital Signs - 24 hr 11/12/21 12:00 11/12/21 12:02 11/12/21 16:00 Temperature 37.1 C 37.0 C Pulse Rate 85 80 88 Respiratory Rate 20 18 Blood Pressure 153/69 H 162/62 H Pulse Oximetry 100 100 11/12/21 21:27 11/13/21 01:00 11/13/21 06:00 Temperature 35.5 C L Pulse Rate 90 90 80 Respiratory Rate 22 H 18 Blood Pressure 139/77 Pulse Oximetry 96 100 Intake/Output Intake/Output: Intake & Output 11/10/21 11/11/21 11/12/21 11/13/21 23:59 23:59 23:59 23:59 Intake Total 2544 4192 1550 850 Output Total 500 0 0 Balance 2044 4192 1550 850 Meds/Results Medications: Active Medications Generic Name Dose Route Start Last Admin Trade Name Freq PRN Reason Stop Dose Admin Acetaminophen 500 mg 11/08/21 07:42 11/09/21 14:30 Acetaminophen 500 Mg Tablet PO 500 mg Q6H PRN Administration Pain Aspirin 81 mg 11/08/21 09:00 11/12/21 08:32 Aspirin 81 Mg Enteric Tablet PO 81 mg DAILY JOHNSON Administration Atorvastatin Calcium 40 mg 11/08/21 09:00 11/12/21 08:32 Atorvastatin 40 Mg Tablet PO 40 mg DAILY JOHNSON Administration Benzocaine 1 lozenge 11/11/21 15:42 11/11/21 17:10 Benzocaine/Menthol (*Bkc) 18 Ea Lozenge PO 1 lozenge PRN PRN Administration Sore Throat Calcitriol 0.25 mcg 11/09/21 09:00 11/12/21 08:32 Calcitriol 0.25 Mcg Capsule PO 0.25 mcg QAM JOHNSON Administration Calcium Carbonate 400 mg 11/09/21 21:25 11/13/21 09:25 Calcium Carbonate (Tums) 500 Mg (200 Mg Elemental) PO 400 mg QID JOHNSON Administration Clopidogrel Bisulfate 75 mg 11/08/21 09:00 11/12/21 08:31 Clopidogrel Bisulfate 75 Mg Tablet PO 75 mg DAILY JOHNSON Administration Dextrose 12.5 gm 11/07/21 13:15 11/09/21 17:56 Dextrose 50% 25 Gm/50 Ml Syringe IV PUSH 12.5 gm PRN PRN Administration Hypoglycemia Protocol Glucagon 1 mg 11/07/21 13:15 Glucagon For Inj 1 Mg Vial IM PRN PRN Hypoglycemia Protocol Glucose 15 gm 11/07/21 13:15 Glucose Oral Gel 15 Gm Of Glucse In 37.5 Gm Tube PO PRN PRN Hypoglycemia Protocol Heparin Sodium (Porcine) 5,000 units 11/07/21 21:00 11/13/21 09:25 Heparin Sodium 5,000 Units/Ml Vial SUB-Q 5,000 units Q12HR JOHNSON Administration Dextrose 1,000 mls @ 100 mls/hr 11/07/21 13:15 Dextrose 5% 1,000 Ml IVPB PRN PRN Hypoglycemia Protocol Cefepime HCl 1 gm in 50 mls @ 100 mls/hr 11/08/21 21:00 11/12/21 21:58 Maxipime 1 Gm/D5w 50 Ml IVPB Infused Q24H JOHNSON Infusion
[2021-11-13 11:17] LABS: Glucose Point of Care 228 mg/dl (65-105)
[2021-11-13] MEDS: INSULIN ASPART (*BKC) 100 UNITS/ML SUB-Q ×2 (11:57→16:38)
[2021-11-13] MEDS: METOPROLOL TARTRATE 12.5 MG TABLET PO ×2 (14:16→20:18)
[2021-11-13] MEDS: CHOLECALCIFEROL 1,000 UNITS TABLET 2000 UNITS PO (14:16)
[2021-11-13] MEDS: ATORVASTATIN 40 MG TABLET PO (14:16)
[2021-11-13] MEDS: THERAPEUTIC MULTIVITAMINS/MINERALS TAB (*BKC) 1 TABLET PO (14:16)
[2021-11-13] MEDS: calcitrioL 0.25 MCG CAPSULE PO (14:17)
[2021-11-13] MEDS: ASPIRIN 81 MG ENTERIC TABLET PO (14:17)
[2021-11-13] MEDS: CLOPIDOGREL BISULFATE 75 MG TABLET PO (14:17)
[2021-11-13] MEDS: lisinopriL 10 MG TABLET PO (14:17)
--- NOTE | 2021-11-13 14:19 | PC.NURSE ---
Held morning medications in anticipation of dialysis treatment. Was informed at 1400 that patient would not be receiving dialysis today but instead on 11/14. Gave morning medication late once I was informed that dialysis was on hold until next day.
[2021-11-13 16:16] LABS: Glucose Point of Care 263 mg/dl (65-105)
[2021-11-13] MEDS: INSULIN GLARGINE (*BKC) 100 UNITS/ML 10 UNITS SUB-Q (20:19)
[2021-11-13 21:21] LABS: Glucose Point of Care 257 mg/dl (65-105)
[2021-11-14] VITALS (22 sets, daily range): BP systolic 108–160; BP diastolic 54–84; PULSE 75–92; RESP 16–19; TEMP 36.4–37; O2SAT 96–100
[2021-11-14] MEDS: METOCLOPRAMIDE HCL 10 MG/10 ML SOLN UDC PO ×3 (05:36→16:21)
[2021-11-14 06:13] LABS: Hematocrit 25.8 % (37.0-47.0); Hemoglobin 8.1 g/dL (12.0-15.0); Mean Corpuscular HGB Conc 31.4 g/dl (32-36); Mean Corpuscular Hemoglobin 32.3 pg (26-34); Mean Corpuscular Volume 102.8 fl (80-100); Mean Platelet Volume 11.5 fl (7.4-10.4); Platelet Count Result 132 k/mm3 (150-375); Red Blood Count 2.51 M/mm3 (4.2-5.4); Red Cell Distribution Width 14.7 % (11.5-14.5); White Blood Count 8.8 K/mm3 (4.5-10.0)
[2021-11-14 06:33] LABS: Alanine Aminotransferase 21 U/L (6-35); Albumin Level 3.6 g/dL (3.5-5.1); Alkaline Phosphatase 152 U/L (38-126); Anion Gap 10 mmol/L (8-16); Aspartate Amino Transferase 45 U/L (14-36); Bilirubin,Total 0.5 mg/dL (0.2-1.3); Blood Urea Nitrogen 84 mg/dL (7-17); Carbon Dioxide 27 mmol/L (22-30); Chloride 93 mmol/L (98-107); Estimated CRCL calculation 8 ml/min; Estimated Glomerular Filt Rate 5; Glucose 155 mg/dL (65-110); Magnesium 2.4 mg/dL (1.6-2.3); Potassium 5.6 mmol/L (3.4-5.0); Sodium 130 mmol/L (137-145)
[2021-11-14 07:44] LABS: Glucose Point of Care 142 mg/dl (65-105)
[2021-11-14] MEDS: PANTOPRAZOLE SODIUM IV 40 MG VIAL IV PUSH (08:56)
[2021-11-14] MEDS: HEPARIN SODIUM 5,000 UNITS/ML VIAL 5000 UNITS SUB-Q (08:56)
[2021-11-14] MEDS: CALCIUM CARBONATE (TUMS) 500 MG (200 MG ELEMENTAL) 400 MG PO ×3 (08:56→16:21)
--- NOTE | 2021-11-14 09:47 | PM.CNPUL ---
Assessment and Plan Assessment and plan (1) Nocturnal hypoxemia: Code(s): G47.34 - Idiopathic sleep related nonobstructive alveolar hypoventilation Status: Acute Assessment and Plan: 46-year-old female with history of chronic renal failure on hemodialysis, diabetes mellitus, coronary artery disease, status post recent coronary artery bypass grafting presented with nausea vomiting diarrhea but no respiratory symptoms. Patient was found to have nocturnal oxyhemoglobin desaturation and has been treated with CPAP support at night. Last chest CT showed small basal atelectasis but no evidence of active lung disease. Patient has been a smoker for many years. Etiology of nocturnal hypoxemia unclear; possibly related to basal atelectasis detected by chest CT or patient has sleep disordered breathing. Plan: repeat two view chest x-ray. Await ApneaLink on room air tonight. (2) Atelectasis, bilateral: Code(s): J98.11 - Atelectasis Status: Acute (3) End stage renal disease on dialysis: Code(s): N18.6 - End stage renal disease; Z99.2 - Dependence on renal dialysis Status: Acute (4) Insulin dependent diabetes mellitus: Status: Acute (5) Tobacco dependence: Code(s): F17.200 - Nicotine dependence, unspecified, uncomplicated Status: Chronic History of Present Illness History of Present Illness Consult date: 11/14/21 Chief complaint: Gastroenteritis with dehydration Narrative: This 46-year-old female presented with nausea and vomiting approximately 1 week ago. The patient has multiple medical problems including hypertension diabetes mellitus, chronic renal failure on hemodialysis for about year, history of coronary artery disease, status post coronary artery bypass grafting. Patient presented with nausea vomiting and diarrhea; she had no respiratory issues. While on hemodialysis during this hospitalization, she developed hypotension related to nonsustained ventricular tachycardia. The patient was given Amiodarone IV bolus and has been evaluated by Cardiology Services. Reportedly the patient had had some oxyhemoglobin desaturation at night and has been on CPAP support for the last week. Plans are underway to send patient home. I was asked to see the patient regarding nocturnal hypoxemia. The patient has been a smoker for many years. She has not been on any treatment for underlying respiratory disease. Chest CT done 5 days ago showed some basal atelectasis but no other lung disease. Patient is not on home oxygen. She has history of snoring but no history of sleep disordered breathing. she has no cough, she reports occasional wheezing she also has lower extremity edema. She has shortness of breath on exertion. Review of laboratory data showed anemia probably related to her kidney failure but no evidence of hypercapnia. ApneaLink on room air ordered for tonight. Review of Systems Review of Systems: All systems reviewed & are unremarkable except as noted in HPI and below PMFSH Past Medical History Medical History Anasarca CAD (coronary artery disease) RCA stent placed in August 2020 CHF (congestive heart failure) Chiari I malformation Chronic osteomyelitis Status post toe amputations CVA (cerebral vascular accident) Small old lacunar infarct at the head of the right caudate nucleus. Dialysis patient Erythropoietin deficiency anemia Esophagitis determined by endoscopy EGD December 2019 ESRD (end stage renal disease) on dialysis On hemodialysis since June 2019 Gastroparesis due to DM Hyperlipidemia Papilledema Renal osteodystrophy Surgical History Surgical History Amputation of toe Two on the left AV fistula Left forearm H/O tubal ligation During one of her deliveries. History of section, classical X2 History of coronary artery stent placement History
[2021-11-14 11:23] LABS: Glucose Point of Care 368 mg/dl (65-105)
[2021-11-14] MEDS: INSULIN ASPART (*BKC) 100 UNITS/ML SUB-Q ×2 (12:09→16:21)
--- NOTE | 2021-11-14 12:18 | PM.DS ---
DS: Admitting Diagnosis Discharge Date November 14, 2021 Admitting Diagnosis Status post cardiac arrest, dehydration, volume depletion DS: Discharge Diagnosis Discharge Diagnosis (1) Cardiac arrest: Code(s): I46.9 - Cardiac arrest, cause unspecified Status: Acute Assessment and Plan: Patient received 1 dose of amiodarone post her cardiac arrest as a brief V-tach was seen on telemetry.. She has been in normal sinus rhythm since then and has not required any further antiarrhythmic infusion It is quite possible the patient was hypovolemic from her nausea vomiting and diarrhea and once she was placed on hemodialysis she became hypotensive leading to PEA arrest Workup unrevealing. No further cardiac workup is required. (2) Elevated troponin: Code(s): R77.8 - Other specified abnormalities of plasma proteins Status: Acute Assessment and Plan: Patient has history of coronary disease and had CABG last month Secondary to above (3) Gastroenteritis: Code(s): K52.9 - Noninfective gastroenteritis and colitis, unspecified Status: Acute Assessment and Plan: Patient presented with presentation of nausea vomiting and diarrhea and has had similar presentation in the past which was managed conservatively Now improved (4) End stage renal disease on dialysis: Code(s): N18.6 - End stage renal disease; Z99.2 - Dependence on renal dialysis Status: Acute Assessment and Plan: Nephrology is following and hemodialysis per Nephrology (5) Insulin dependent diabetes mellitus: Status: Acute Assessment and Plan: Continue home meds on discharge (6) GERD (gastroesophageal reflux disease): Code(s): K21.9 - Gastro-esophageal reflux disease without esophagitis Status: Acute Assessment and Plan: Continue home meds, monitor (7) Chest pain: Qualifiers: Chest pain type: unspecified Qualified Code(s): R07.9 - Chest pain, unspecified Code(s): R07.9 - Chest pain, unspecified Status: Acute Assessment and Plan: Secondary CPR (8) Metabolic alkalosis: Code(s): E87.3 - Alkalosis Status: Acute Assessment and Plan: Monitor on discharge (9) Gastroparesis: Code(s): K31.84 - Gastroparesis Status: Acute Assessment and Plan: Resume home meds (10) Sepsis: Code(s): A41.9 - Sepsis, unspecified organism Status: Acute Assessment and Plan: No underlying infection. Sepsis unlikely. DS: Summary Hospital Course Hospital Course: See planning discharge diagnoses Time Spent with Patient Time attestation: Total time spent providing and/or coordinating discharge services: Greater than 30 min Exam Narrative: Patient is comfortable, NAD HEENT: eyes are clear and none icteric LUNGS: normal respiratory effort ABD: not distended Lower extremities: no edema SKIN: nonjaundiced Neuro: grossly intact. DS: Data Data Completed and Pending Labs on day of discharge: Labs from last 24 hours 11/14/21 11/14/21 11/14/21 11:15 07:40 05:52 WBC RBC Hgb Hct MCV MCH MCHC RDW Plt Count MPV Sodium 130 L Potassium 5.6 H Chloride 93 L Carbon Dioxide 27 Anion Gap 10 BUN 84 H Creatinine 8.10 H Estim Creat Clear Calc 8 Estimated GFR 5 L Glucose 155 H POC Capillary Glucose 368 H 142 H Calcium 9.0 Magnesium 2.4 H Total Bilirubin 0.5 AST 45 H ALT 21 Alkaline Phosphatase 152 H Total Protein 6.0 L Albumin 3.6 11/14/21 11/13/21 11/13/21 05:52 20:13 16:12 WBC 8.8 RBC 2.51 L Hgb 8.1 L Hct 25.8 L MCV 102.8 H MCH 32.3 MCHC 31.4 L RDW 14.7 H Plt Count 132 L MPV 11.5 H Sodium Potassium Chloride Carbon Dioxide Anion Gap BUN Creatinine Estim Creat Clear Calc Estimated GFR Glucose POC Capillary Glucose 257 H 263 H Calciu
--- NOTE | 2021-11-14 16:01 | PC.NURSE ---
Did not give morning medication in anticipation of dialysis. Dialysis called to say they would be here to treat her after noon. 1600 and dialysis still has not treated patient. Too late to give morning medications.
[2021-11-14 16:07] LABS: Glucose Point of Care 290 mg/dl (65-105)
--- NOTE | 2021-11-14 18:37 | PC.NURSE ---
Patient awaiting dialysis at 1830. Dialysis expected to come within next hour or so. Patient complaining of shortness of breath. Checked oxygen levels and is currently at 100%. Patient states she feels bloated but not as short of breath now that she knows her oxygen is at a safe level.
--- NOTE | 2021-11-14 18:51 | PM.PNNEP ---
Progress Note: A&P Assessment and Plan (1) End stage renal disease on dialysis: Code(s): N18.6 - End stage renal disease; Z99.2 - Dependence on renal dialysis Status: Acute Assessment and Plan: end-stage renal disease diabetic gastroparesis exacerbation with nausea and vomiting this has caused metabolic alkalosis and currently has also respiratory alkalosis has presence of lactic acidosis and also ketoacidosis recent CABG reported ventricular tachycardia dialysis hypokalemia earlier anemia of chronic kidney disease rule out underlying sepsis with leukocytosis possible pneumonia per CT hypocalcemia dehydration plan: -ESRD: HD not done properly since last Friday and now she is bloated. Orders were written for Friday and Friday. Today is ordered as to be followed as note yesterday -plan is for discharge after dialysis -treatment of underlying gastroparesis per primary team: Better -treatment of hypocalcemia per orders, hyponatremia should respond to fluid removal. May need CT of dialysis today again as she will be in need of fluid removal -follow-up Subjective Date/time seen: 11/14/21 18:51 Patient's last proper dialysis was on Friday. On Friday she had a problem with a needle stick and pain. As discussed with the dialysis nurse on Friday we had plan to dialyze the patient on Friday I wrote orders for patient to be dialyzed yesterday and dialysis was not carried out.Today is a regular dialysis day and she has yet to be dialyzed. She feels bloated. States otherwise she feels okay. She is not hyponatremic due to fluid retention and also getting hyperkalemic Objective Data Vital Signs Vital Signs: Vital Signs - 24 hr 11/13/21 20:18 11/13/21 20:42 11/13/21 21:24 Temperature 37.1 C Pulse Rate 82 80 Respiratory Rate 18 Blood Pressure 143/70 H Pulse Oximetry 97 100 11/13/21 22:26 11/14/21 02:21 11/14/21 05:18 Temperature 36.5 C Pulse Rate 74 75 78 Respiratory Rate 18 19 18 Blood Pressure 142/84 H Pulse Oximetry 98 98 100 11/14/21 13:51 Temperature 36.6 C Pulse Rate 92 Respiratory Rate 17 Blood Pressure 158/58 H Pulse Oximetry 98 Intake/Output Intake/Output: Intake & Output 11/11/21 11/12/21 11/13/21 11/14/21 23:59 23:59 23:59 23:59 Intake Total 4192 1550 1594 1080 Output Total 0 0 Balance 4192 1550 1594 1080 Meds/Results Medications: Active Medications Generic Name Dose Route Start Last Admin Trade Name Freq PRN Reason Stop Dose Admin Acetaminophen 500 mg 11/08/21 07:42 11/09/21 14:30 Acetaminophen 500 Mg Tablet PO 500 mg Q6H PRN Administration Pain Aspirin 81 mg 11/08/21 09:00 11/14/21 16:00 Aspirin 81 Mg Enteric Tablet PO Not Given DAILY JOHNSON Atorvastatin Calcium 40 mg 11/08/21 09:00 11/14/21 16:00 Atorvastatin 40 Mg Tablet PO Not Given DAILY JOHNSON Benzocaine 1 lozenge 11/11/21 15:42 11/11/21 17:10 Benzocaine/Menthol (*Bkc) 18 Ea Lozenge PO 1 lozenge PRN PRN Administration Sore Throat Calcitriol 0.25 mcg 11/09/21 09:00 11/14/21 16:00 Calcitriol 0.25 Mcg Capsule PO Not Given QAM JOHNSON Calcium Carbonate 400 mg 11/09/21 21:25 11/14/21 16:21 Calcium Carbonate (Tums) 500 Mg (200 Mg Elemental) PO 400 mg QID JOHNSON Administration Clopidogrel Bisulfate 75 mg 11/08/21 09:00 11/14/21 16:00 Clopidogrel Bisulfate 75 Mg Tablet PO Not Given DAILY JOHNSON Dextrose 12.5 gm 11/07/21 13:15 11/09/21 17:56 Dextrose 50% 25 Gm/50 Ml Syringe IV PUSH 12.5 gm PRN PRN Administration Hypoglycemia Protocol Glucagon 1 mg 11/07/21 13:15 Glucagon For Inj 1 Mg Vial IM PRN PRN Hypoglycemia Protocol Glucose 15 gm 11/07/21 13:15 Glucose Oral Gel 15 Gm Of Glucse In 37.5 Gm Tube PO PRN PRN Hypoglycemia Protocol Heparin Sodium (Porcine) 5,000 units 11/07/21 21:00 11/14/21 08:56 Heparin Sodium 5,000 Units/Ml Vial SUB-Q 5,000
[2021-11-15] MEDS: HEPARIN SODIUM 5,000 UNITS/ML VIAL 5000 UNITS SUB-Q ×2 (00:08→12:08)
[2021-11-15] MEDS: CALCIUM CARBONATE (TUMS) 500 MG (200 MG ELEMENTAL) 400 MG PO ×3 (00:08→12:14)
[2021-11-15] MEDS: METOCLOPRAMIDE HCL 10 MG/10 ML SOLN UDC PO ×3 (00:08→12:14)
[2021-11-15] MEDS: INSULIN GLARGINE (*BKC) 100 UNITS/ML 10 UNITS SUB-Q (00:09)
[2021-11-15 00:20] LABS: Glucose Point of Care 128 mg/dl (65-105)
[2021-11-15 00:32] VITALS: PULSE 86
[2021-11-15] MEDS: METOPROLOL TARTRATE 12.5 MG TABLET PO ×2 (00:32→12:07)
--- NOTE | 2021-11-15 05:08 | PC.NURSE ---
patient transferred to dialysis at 2130 room 308
--- NOTE | 2021-11-15 05:09 | PC.NURSE ---
Patient transferred back to room 310 at 2345 on 11/14/2021 after dialysis treatment. Patient resting comfortably in bed with belongings within reach
[2021-11-15 06:00] VITALS: BP 120/67; PULSE 78; RESP 20; TEMP 36.9; O2SAT 100
[2021-11-15 06:24] LABS: Hematocrit 24.4 % (37.0-47.0); Hemoglobin 7.6 g/dL (12.0-15.0); Mean Corpuscular HGB Conc 31.1 g/dl (32-36); Mean Corpuscular Hemoglobin 32.1 pg (26-34); Mean Platelet Volume 11.4 fl (7.4-10.4); Platelet Count Result 132 k/mm3 (150-375); Red Blood Count 2.37 M/mm3 (4.2-5.4); Red Cell Distribution Width 15.1 % (11.5-14.5); White Blood Count 7.7 K/mm3 (4.5-10.0)
[2021-11-15 07:56] LABS: Glucose Point of Care 270 mg/dl (65-105)
--- NOTE | 2021-11-15 08:53 | PM.PNPUL ---
Progress Note: A&P Additional Plan (1) Nocturnal hypoxemia: Code(s): G47.34 - Idiopathic sleep related nonobstructive alveolar hypoventilation Status: Acute Assessment and Plan: 46-year-old female with history of chronic renal failure on hemodialysis, diabetes mellitus, coronary artery disease, status post recent coronary artery bypass grafting presented with nausea vomiting diarrhea but no respiratory symptoms. Patient was found to have nocturnal oxyhemoglobin desaturation and has been treated with CPAP support at night. Last chest CT showed small basal atelectasis but no evidence of active lung disease. Patient has been a smoker for many years. Patient underwent apnea link study last night. Patient was found to have a an 80 HI of 21.7 with hypopneas of 13.2 per hour and obstructive apneas or 7 point 8 per hour. She had some oxyhemoglobin desaturation but not clinically significant to require home oxygen. Plan: patient will need to be scheduled for sleep apnea on an outpatient basis. Following sleep study, she should return to [facility] for assessment for Sleep disordered breathing and also COPD. (2) Atelectasis, bilateral: Code(s): J98.11 - Atelectasis Status: Acute (3) End stage renal disease on dialysis: Code(s): N18.6 - End stage renal disease; Z99.2 - Dependence on renal dialysis Status: Acute (4) Insulin dependent diabetes mellitus: Status: Acute (5) Tobacco dependence: Code(s): F17.200 - Nicotine dependence, unspecified, uncomplicated Status: Chronic Subjective Date/time seen: 11/15/21 08:53 Patient has no respiratory symptoms she did not sleep well last night. Underwent apnea link study last night Review of Systems Review of Systems: All systems reviewed & are unremarkable except as noted in HPI and below Exam Narrative: GENERAL APPEARANCE: Well developed, well nourished, alert and cooperative, and appears to be in no acute distress While sitting in chair breathing room air SKIN: Inspection of the skin reveals no rashes, ulcerations or petechiae. HEENT: Sclerae anicteric and conjunctivae pink and moist. Extraocular movements were intact and pupils were equal, round. The oral mucosa, hard and soft palate, tongue and posterior pharynx were normal. edentulous NECK: Supple. There was no thyroid enlargement, and no tenderness. CHEST: Normal AP diameter and normal contour without any kyphoscoliosis. LUNGS: Auscultation of the lungs revealed normal breath sounds without any other adventitious sounds or rubs. CARDIAC: There was a regular rate and rhythm without any murmurs; loud 2nd heart sound ABDOMEN: Soft and nontender with normal bowel sounds. There was no organomegaly. LYMPH NODES: No lymphadenopathy was appreciated in the neck. EXTREMITIES: No cyanosis, clubbing; trace pedal edema. NEUROLOGIC: Alert and oriented x 3. Normal affect. Objective Data Vital Signs Vital Signs: Vital Signs - 24 hr 11/14/21 13:51 11/14/21 19:30 11/14/21 19:45 Temperature 36.6 C 36.4 C Pulse Rate 92 88 86 Respiratory Rate 17 16 Blood Pressure 158/58 H 153/70 H 147/67 H Pulse Oximetry 98 11/14/21 20:00 11/14/21 20:15 11/14/21 20:30 Temperature Pulse Rate 87 86 84 Respiratory Rate Blood Pressure 160/70 H 136/68 127/60 Pulse Oximetry 11/14/21 20:45 11/14/21 21:00 11/14/21 21:15 Temperature Pulse Rate 84 85 85 Respiratory Rate Blood Pressure 125/63 128/54 L 127/61 Pulse Oximetry 11/14/21 21:30 11/14/21 21:45 11/14/21 22:00 Temperature Pulse Rate 84 84 82 Respiratory Rate Blood Pressure 124/60 118/59 L 108/58 L Pulse Oximetry 11/14/21 22:15 11/14/21 22:30 11/14/21 22:45 Temperature Pulse Rate 81 81 81 Respiratory Rate Blood Pressure 121/59 L 117/61 110/59 L Pulse Oximetry 11/14/21 23:00 11/14/21 23:15 11/14/21 23:16 Temperature Pulse Rate 82 84 82 Respiratory Rate Blood Pressure 112
[2021-11-15 08:59] VITALS: BP 113/73; PULSE 88; O2SAT 100
[2021-11-15] MEDS: INSULIN ASPART (*BKC) 100 UNITS/ML SUB-Q ×2 (09:00→12:08)
[2021-11-15] MEDS: ATORVASTATIN 40 MG TABLET PO (09:02)
[2021-11-15] MEDS: THERAPEUTIC MULTIVITAMINS/MINERALS TAB (*BKC) 1 TABLET PO (09:03)
[2021-11-15] MEDS: CHOLECALCIFEROL 1,000 UNITS TABLET 2000 UNITS PO (09:03)
[2021-11-15] MEDS: CLOPIDOGREL BISULFATE 75 MG TABLET PO (09:03)
[2021-11-15] MEDS: calcitrioL 0.25 MCG CAPSULE PO (09:03)
[2021-11-15] MEDS: lisinopriL 10 MG TABLET PO (09:03)
[2021-11-15] MEDS: ASPIRIN 81 MG ENTERIC TABLET PO (09:04)
[2021-11-15] MEDS: PANTOPRAZOLE SODIUM IV 40 MG VIAL IV PUSH (09:04)
--- NOTE | 2021-11-15 09:07 | PM.PNNEP ---
Progress Note: A&P Assessment and Plan (1) ESRD needing dialysis: Code(s): N18.6 - End stage renal disease; Z99.2 - Dependence on renal dialysis Status: Acute Assessment and Plan: End-stage renal disease/fluid overload/hyponatremia/hyperkalemia/initial admission with diabetic gastroparesis: Patient better today after dialysis last night. The patient's dialysis was supervised last night. Stable with treatment and symptoms currently. May be discharged from renal standpoint. She should follow up tomorrow in the outpatient dialysis setting. Subjective Date/time seen: 11/15/21 09:07 Addendum to yesterday's note: Seen and examined on dialysis 11/14: Stable with use of the AV graft in the left upper arm with no pain. She tolerated the dialysis well. Slight cough. Other than that no shortness of breath. Denies nausea vomiting. Exam Narrative: Lessfacial bloating, JVD negative, regular rate rhythm, lungs clear, equal breath sounds, soft nontender abdomen, edema decreased in lower extremities, alert oriented x3, no tremor Objective Data Vital Signs Vital Signs: Vital Signs - 24 hr 11/14/21 13:51 11/14/21 19:30 11/14/21 19:45 Temperature 36.6 C 36.4 C Pulse Rate 92 88 86 Respiratory Rate 17 16 Blood Pressure 158/58 H 153/70 H 147/67 H Pulse Oximetry 98 11/14/21 20:00 11/14/21 20:15 11/14/21 20:30 Temperature Pulse Rate 87 86 84 Respiratory Rate Blood Pressure 160/70 H 136/68 127/60 Pulse Oximetry 11/14/21 20:45 11/14/21 21:00 11/14/21 21:15 Temperature Pulse Rate 84 85 85 Respiratory Rate Blood Pressure 125/63 128/54 L 127/61 Pulse Oximetry 11/14/21 21:30 11/14/21 21:45 11/14/21 22:00 Temperature Pulse Rate 84 84 82 Respiratory Rate Blood Pressure 124/60 118/59 L 108/58 L Pulse Oximetry 11/14/21 22:15 11/14/21 22:30 11/14/21 22:45 Temperature Pulse Rate 81 81 81 Respiratory Rate Blood Pressure 121/59 L 117/61 110/59 L Pulse Oximetry 11/14/21 23:00 11/14/21 23:15 11/14/21 23:16 Temperature Pulse Rate 82 84 82 Respiratory Rate Blood Pressure 112/59 L 118/58 L 126/61 Pulse Oximetry 11/14/21 23:30 11/14/21 23:58 11/15/21 00:32 Temperature 36.4 C Pulse Rate 83 86 Respiratory Rate 16 Blood Pressure 124/58 L Pulse Oximetry 96 11/15/21 06:00 Temperature 36.9 C Pulse Rate 78 Respiratory Rate 20 Blood Pressure 120/67 Pulse Oximetry 100 Intake/Output Intake/Output: Intake & Output 11/12/21 11/13/21 11/14/21 11/15/21 23:59 23:59 23:59 23:59 Intake Total 1550 1644 1080 150 Output Total 0 3000 Balance 1550 1644 -1920 150 Meds/Results Medications: Active Medications Generic Name Dose Route Start Last Admin Trade Name Freq PRN Reason Stop Dose Admin Acetaminophen 500 mg 11/08/21 07:42 11/09/21 14:30 Acetaminophen 500 Mg Tablet PO 500 mg Q6H PRN Administration Pain Aspirin 81 mg 11/08/21 09:00 11/15/21 09:04 Aspirin 81 Mg Enteric Tablet PO 81 mg DAILY JOHNSON Administration Atorvastatin Calcium 40 mg 11/08/21 09:00 11/15/21 09:02 Atorvastatin 40 Mg Tablet PO 40 mg DAILY JOHNSON Administration Benzocaine 1 lozenge 11/11/21 15:42 11/11/21 17:10 Benzocaine/Menthol (*Bkc) 18 Ea Lozenge PO 1 lozenge PRN PRN Administration Sore Throat Calcitriol 0.25 mcg 11/09/21 09:00 11/15/21 09:03 Calcitriol 0.25 Mcg Capsule PO 0.25 mcg QAM JOHNSON Administration Calcium Carbonate 400 mg 11/09/21 21:25 11/15/21 09:04 Calcium Carbonate (Tums) 500 Mg (200 Mg Elemental) PO 400 mg QID JOHNSON Administration Clopidogrel Bisulfate 75 mg 11/08/21 09:00 11/15/21 09:03 Clopidogrel Bisulfate 75 Mg Tablet PO 75 mg DAILY JOHNSON Administration Dextrose 12.5 gm 11/07/21 13:15 11/09/21 17:56 Dextrose 50% 25 Gm/50 Ml Syringe IV PUSH 12.5 gm PRN PRN Administration Hypoglycemia Protocol Glucagon 1 mg 11/07/21 13:15 Glucagon F
--- NOTE | 2021-11-15 10:24 | PM.DS ---
DS: Admitting Diagnosis Discharge Date 11/15/21 Admitting Diagnosis gastroenteritis DS: Discharge Diagnosis Discharge Diagnosis (1) Cardiac arrest: Code(s): I46.9 - Cardiac arrest, cause unspecified Status: Acute Assessment and Plan: Patient received 1 dose of amiodarone post her cardiac arrest as a brief V-tach was seen on telemetry.. She has been in normal sinus rhythm since then and has not required any further antiarrhythmic infusion It is quite possible the patient was hypovolemic from her nausea vomiting and diarrhea and once she was placed on hemodialysis she became hypotensive leading to PEA arrest Workup unrevealing. No further cardiac workup is required. (2) Elevated troponin: Code(s): R77.8 - Other specified abnormalities of plasma proteins Status: Acute Assessment and Plan: Patient has history of coronary disease and had CABG last month Secondary to above (3) Gastroenteritis: Code(s): K52.9 - Noninfective gastroenteritis and colitis, unspecified Status: Acute Assessment and Plan: Patient presented with presentation of nausea vomiting and diarrhea and has had similar presentation in the past which was managed conservatively Now improved (4) End stage renal disease on dialysis: Code(s): N18.6 - End stage renal disease; Z99.2 - Dependence on renal dialysis Status: Acute Assessment and Plan: Nephrology is following and hemodialysis per Nephrology (5) Insulin dependent diabetes mellitus: Status: Acute Assessment and Plan: Continue home meds on discharge (6) GERD (gastroesophageal reflux disease): Code(s): K21.9 - Gastro-esophageal reflux disease without esophagitis Status: Acute Assessment and Plan: Continue home meds, monitor (7) Chest pain: Qualifiers: Chest pain type: unspecified Qualified Code(s): R07.9 - Chest pain, unspecified Code(s): R07.9 - Chest pain, unspecified Status: Acute Assessment and Plan: Secondary CPR (8) Metabolic alkalosis: Code(s): E87.3 - Alkalosis Status: Acute Assessment and Plan: Monitor on discharge (9) Gastroparesis: Code(s): K31.84 - Gastroparesis Status: Acute Assessment and Plan: Resume home meds (10) Sepsis: Code(s): A41.9 - Sepsis, unspecified organism Status: Acute Assessment and Plan: No underlying infection. Sepsis unlikely. DS: Summary Hospital Course Hospital Course: see dc plan and dx Time Spent with Patient Time attestation: Total time spent providing and/or coordinating discharge services: Exam Narrative: Patient is comfortable, NAD HEENT: eyes are clear and none icteric LUNGS: normal respiratory effort ABD: not distended Lower extremities: no edema SKIN: nonjaundiced Neuro: grossly intact. DS: Data Data Completed and Pending Labs on day of discharge: Labs from last 24 hours 11/15/21 11/15/21 11/14/21 07:47 06:12 23:53 WBC 7.7 RBC 2.37 L Hgb 7.6 L Hct 24.4 L MCV 103.0 H MCH 32.1 MCHC 31.1 L RDW 15.1 H Plt Count 132 L MPV 11.4 H POC Capillary Glucose 270 H 128 H 11/14/21 11/14/21 16:02 11:15 WBC RBC Hgb Hct MCV MCH MCHC RDW Plt Count MPV POC Capillary Glucose 290 H 368 H Discharge Plan Discharge Attending physician on discharge: Edward Clark Consulting providers: Lissy Renner ; Renzo Portillo ; Gregory Forbes ; Chi Ellis Discharging Clinician: Edward Clark Patient Disposition: Home, Self-Care Activity: no preference Diet: as tolerated Patient Instructions: Antibiotic Form, Heart Failure (GEN), Blood Thinners (GEN), High Troponin Levels (ED) Stand Alone Forms: General Discharge Information Follow-up/Referrals: Lissy Renner DO [Physician] - Chi Ellis MD [Physician] - Discharge Medicati
[2021-11-15 11:29] LABS: Glucose Point of Care 284 mg/dl (65-105)
[2021-11-15 12:07] VITALS: PULSE 88
[2021-11-15 12:17] VITALS: BP 165/58; PULSE 89; RESP 16; TEMP 37.1; O2SAT 100
== END 2021-11-15 15:45 | disposition home or self-care (01) | DRG 280 ==
LOC: ANHED 09:57 → ANHIMU 12:26 → ANHICU 11-08 17:55 → ANH3MEDSUR 11-14 12:17 → ANHICU 11-16 13:59 → ANHIMU 11-16 13:59
PROVIDERS: Family Medicine; Internal Medicine; Internal Medicine Cardiovascular Disease; Internal Medicine Nephrology; Nurse Practitioner Adult Health; Physician Assistant; Admitting Provider Family Medicine; Emergency Provider Emergency Medicine; PCP Internal Medicine; Visit Provider Chiropractor
DX: I47.2 Ventricular tachycardia (principal); E11.10 Type 2 diabetes mellitus with ketoacidosis without coma; I21.A1 Myocardial infarction type 2; N18.6 End stage renal disease; G93.5 Compression of brain; E87.3 Alkalosis; E87.1 Hypo-osmolality and hyponatremia; J98.11 Atelectasis; K52.9 Noninfective gastroenteritis and colitis, unspecified; K21.9 Gastro-esophageal reflux disease without esophagitis; E11.22 Type 2 diabetes mellitus with diabetic chronic kidney disease; E11.43 Type 2 diabetes mellitus with diabetic autonomic (poly)neuropathy; K31.84 Gastroparesis; E87.5 Hyperkalemia; R09.02 Hypoxemia; I25.10 Atherosclerotic heart disease of native coronary artery without angina pectoris; J44.9 Chronic obstructive pulmonary disease, unspecified; N25.0 Renal osteodystrophy; R07.89 Other chest pain; E78.5 Hyperlipidemia, unspecified; I50.9 Heart failure, unspecified; D63.1 Anemia in chronic kidney disease; E87.6 Hypokalemia; I95.89 Other hypotension; E83.51 Hypocalcemia; F17.210 Nicotine dependence, cigarettes, uncomplicated; Z99.2 Dependence on renal dialysis; Z95.1 Presence of aortocoronary bypass graft; Z89.422 Acquired absence of other left toe(s); Z95.5 Presence of coronary angioplasty implant and graft; Z86.73 Personal history of transient ischemic attack (TIA), and cerebral infarction without residual deficits; Z90.49 Acquired absence of other specified parts of digestive tract; Z79.82 Long term (current) use of aspirin
CPT/HCPCS: 36415; 36600; 70450; 71045; 71046; 71250; 74176; 80048; 80053; 80069; 80202; 82010; 82040; 82140; 82375; 82805; 82948; 83050; 83605; 83690; 83735; 83880; 84100; 84484; 85025; 85027; 87040; 93005; 93306; 94002; 94003; 94762; 96361; 96365; 96366; 96367; 96374; 96375; 96376; 99285; A9270; C9113; G0257; G0378; J0171; J0282; J0692; J1644; J1815; J2405; J2550; J3370; J7030; J7040

== ENCOUNTER 2021-12-17 08:40 | Observation (INO) | payer OTHER, MEDICARE, MEDICAID, SELFPAY ==
[2021-12-17] VITALS (20 sets, daily range): BP systolic 111–143; BP diastolic 51–83; PULSE 73–107; RESP 17–21; TEMP 36–37.6; O2SAT 94–100; BMI 28.1
--- NOTE | ~2021-12-17 | XR_ITS ---
EXAMINATION: XR chest 1V portable DATE: 12/17/2021 09:19 INDICATION: Midsternal chest pain. TECHNIQUE: A single frontal view of the chest was obtained. COMPARISON: Chest 2 views 11/14/2021 FINDINGS: There are interstitial opacities in the mid and lower lung zones. No pleural effusion or pn eumothorax. Cardiomegaly is noted. Median sternotomy wires and mediastinal surgical clips are seen, l ikely from prior coronary artery bypass grafting. IMPRESSION: 1. Interstitial opacities in the mid and lower lung zones, likely a combination of mild pulmonary shayla ma and mild atelectasis. 2. Cardiomegaly. Reviewed, dictated and finalized at location A. IMPRESSION: 1. Interstitial opacities in the mid and lower lung zones, likely a combination of mild pulmonary edema and mild atelectasis. 2. Cardiomegaly.
--- NOTE | ~2021-12-17 | XR_ITS ---
EXAMINATION: XR chest 1V portable DATE: 12/18/2021 05:36 INDICATION: Shortness of breath. TECHNIQUE: A single frontal view of the chest was obtained. COMPARISON: Chest single view 12/17/2021 FINDINGS: There is mild atelectasis in the lower lung zones. No pleural effusion or pneumothorax. Car diomegaly is noted. Median sternotomy wires and mediastinal surgical clips are seen, likely from prio r coronary artery bypass grafting. IMPRESSION: 1. Mild atelectasis in the lower lung zones. 2. Cardiomegaly. Reviewed, dictated and finalized at location A.
--- NOTE | 2021-12-17 08:59 | ED.CHESTPAIN ---
HPI - Chest Pain General Chief Complaint: Chest Pain Stated Complaint: chest pain Source: RN notes reviewed History of Present Illness HPI narrative: Patient presents emergency room from dialysis for chest pain. Patient states that chest pain began while she was on dialysis today the pain is located left-sided chest and does not radiate described as a pressure nature. Patient states she received dialysis Friday and Friday by Dr. Saunders she has only approximately 30 minutes of dialysis when the pain occurred. Patient was given aspirin and nitro by EMS with minimal relief she denies any fevers or chills shortness of breath abdominal pain nausea vomiting or any other symptoms. States she does have a previous cardiac history with 2 heart attacks in past and is followed by cardiology at [facility] Medications Medication Instructions Recorded Confirmed clopidogrel 75 mg tablet (Plavix) 75 mg PO DAILY 12/01/20 11/07/21 lisinopril 20 mg tablet 20 mg PO DAILY 12/01/20 11/07/21 aspirin 81 mg tablet,delayed 81 mg PO DAILY 12/20/20 11/07/21 release metoclopramide HCl 5 mg tablet 5 mg PO TID 12/20/20 11/07/21 furosemide 80 mg tablet 120 mg PO BID 03/13/21 11/07/21 multivitamin-iron 9 mg-folic acid 1 tablet PO DAILY 03/13/21 11/07/21 400 mcg-calcium and minerals tablet (Thera-M) sevelamer carbonate 800 mg tablet 800 mg PO TIDWM 03/13/21 11/07/21 insulin lispro 100 unit/mL 7 unit subcut TIDWM 09/03/21 11/07/21 subcutaneous pen (Humalog KwikPen (U-100) Insulin) pantoprazole 40 mg tablet,delayed 40 mg PO DAILY 09/03/21 11/07/21 release acetaminophen 500 mg capsule 500 mg PO Q6H PRN Pain 11/07/21 11/07/21 insulin glargine 100 unit/mL 15 unit subcut DAILY 11/07/21 11/07/21 subcutaneous solution (Lantus U-100 Insulin) Allergies Allergy/AdvReac Type Severity Reaction Status Date / Time No Known Drug Allergies Allergy Unknown Verified 11/07/21 09:36 Review of Systems Review of Systems: Gen.: Denies fevers or chills ENT: Denies congestion Respiratory: Denies shortness of breath or cough CV: See HPI GI: Denies abdominal pain nausea, emesis or diarrhea reports chronic renal failure dialysis Musculoskeletal: Denies back pain or muscle pain Neuro: Denies numbness, tingling, weakness or focal weakness Skin: Denies rash Except as documented, all other systems reviewed and negative [facility] Past Medical History Medical History Anasarca CAD (coronary artery disease) RCA stent placed in August 2020 CHF (congestive heart failure) Chiari I malformation Chronic osteomyelitis Status post toe amputations CVA (cerebral vascular accident) Small old lacunar infarct at the head of the right caudate nucleus. Dialysis patient Erythropoietin deficiency anemia Esophagitis determined by endoscopy EGD December 2019 ESRD (end stage renal disease) on dialysis On hemodialysis since June 2019 Gastroparesis due to DM Hyperlipidemia Papilledema Renal osteodystrophy Surgical History Surgical History Amputation of toe Two on the left AV fistula Left forearm H/O tubal ligation During one of her deliveries. History of section, classical X2 History of coronary artery stent placement History of laparoscopic cholecystectomy (03/15/21) History of tonsillectomy and adenoidectomy Hx of myringotomy S/P dialysis catheter insertion Right internal jugular June 2019 status post removal September 2019 S/P lateral meniscal repair S/P PICC central line placement Now removed S/P rotator cuff repair Family History Family History Other Adopted Social History Social History Social History: She has 2 children and she lives with her of 28 years. She is on disability. Patient sta
--- NOTE | 2021-12-17 09:15 | PC.NURSE ---
EMS and [facility] unable to obtain IV access on patient. IV nurse called and currently attempting to place IV.
[2021-12-17] MEDS: MORPHINE SULFATE (*CRX) 2 MG/ML INJ IV PUSH ×2 (09:45→11:11)
[2021-12-17 09:54] LABS: Basophils Percent Auto 0.3 % (0.2-1.2); Eosinophils Percent Auto 0.4 % (0-4.4); Hematocrit 31.7 % (37.0-47.0); Hemoglobin 10.4 g/dL (12.0-15.0); Immature Granulocyte Absolute 0.03 K/mm3 (0.00-0.031); Immature Granulocyte Percent A 0.4 % (0-0.5); Lymphocytes Absolute Auto 0.88 K/mm3 (0.9-3.2); Lymphocytes Percent Auto 12.5 % (18.3-44.2); Mean Corpuscular HGB Conc 32.8 g/dl (32-36); Mean Corpuscular Hemoglobin 32.9 pg (26-34); Mean Corpuscular Volume 100.3 fl (80-100); Mean Platelet Volume 10.9 fl (7.4-10.4); Monocytes Absolute Auto 0.4 K/mm3 (0.1-0.6); Monocytes Percent Auto 5.7 % (2.6-8.5); Neutrophils Absolute Auto 5.7 K/mm3 (1.3-6.7); Neutrophils Percent Auto 80.7 % (45.5-73.1); Platelet Count Result 149 k/mm3 (150-375); Red Blood Count 3.16 M/mm3 (4.2-5.4); Red Cell Distribution Width 15.2 % (11.5-14.5); White Blood Count 7.1 K/mm3 (4.5-10.0)
--- NOTE | 2021-12-17 10:00 | PC.NURSE ---
PT sats dropping into 89%. 2 L applied to maintain O2 above 92%.
[2021-12-17 10:03] LABS: Alanine Aminotransferase 67 U/L (6-35); Albumin Level 4.4 g/dL (3.5-5.1); Alkaline Phosphatase 253 U/L (38-126); Anion Gap 10 mmol/L (8-16); Aspartate Amino Transferase 89 U/L (14-36); Bilirubin,Total 0.6 mg/dL (0.2-1.3); Blood Urea Nitrogen 62 mg/dL (7-17); Calcium 9.3 mg/dL (8.4-10.2); Carbon Dioxide 32 mmol/L (22-30); Chloride 90 mmol/L (98-107); Estimated CRCL calculation 10 ml/min; Estimated Glomerular Filt Rate 7; Glucose 320 mg/dL (65-110); Lipase 236 U/L (23-300); Potassium 5.3 mmol/L (3.4-5.0); Sodium 132 mmol/L (137-145)
[2021-12-17 10:07] LABS: INR 1.2; Prothrombin Time 14.3 Seconds (11.1-14.7)
[2021-12-17 10:08] LABS: Partial Thromboplastin Time 30.6 SECONDS (22.3-36.8)
[2021-12-17 10:18] LABS: Troponin I 0.112 ng/mL (0.000-0.034)
--- NOTE | 2021-12-17 11:01 | PM.IMHP ---
H&P: HPI History of Present Illness Date/Time: 12/17/21 11:01 Chief Complaint: Chest pain Narrative: Patient is a 46-year-old female with a past medical history of ESRD on dialysis as of June 2019, CAD, CHF, Chiari malformation, CVA and urethral poke Jairo deficiency anemia. Patient presented to [place] [facility] after developing chest pain during dialysis. Patient reported the pain to the left side of her chest that was nonradiating and described as a pressure. Patient reports that she receives dialysis on Friday, Friday, and Friday by Dr. Forbes. Patient was approximately 30 minutes into dialysis treatment prior to having chest pain occur. Patient was given aspirin and nitro in the ambulance with minimal relief. She denies any recent fever, chills, shortness of breath, abdominal pain, nausea, vomiting upset stomach or diarrhea. Patient does have a previous cardiac history with 2 cart heart attacks in the past and is followed with parks and recreation worker at [place]. While in the emergency department labs and imaging were obtained without hemoglobin is 7.1, hemoglobin 10.4, hematocrit 31.7 and platelet 149. Sodium 132, potassium 5.3, chloride 90, BUN 62, creatinine 6.0, glucose 320 and a elevated troponin at 0.112. Chest x-ray was performed which revealed interstitial opacities in the mid lower lung zones likely combination of mild pulmonary edema versus mild atelectasis as well as cardiomegaly. A Nephrology and Cardiology was consulted from the emergency department due patient's requirement for dialysis on Friday and Friday and not finishing her treatment today as well as elevated troponins with chest pain for Cardiology. Of note patient had a triple bypass surgery performed in September. Patient will be admitted under the hospitalist service team for treatment of acute chest pain rule out of ACS and received dialysis in the inpatient setting. Review of Systems Review of Systems: All systems reviewed & are unremarkable except as noted in HPI and below PMFSH Past Medical History Medical History Anasarca CAD (coronary artery disease) RCA stent placed in August 2020 CHF (congestive heart failure) Chiari I malformation Chronic osteomyelitis Status post toe amputations CVA (cerebral vascular accident) Small old lacunar infarct at the head of the right caudate nucleus. Dialysis patient Erythropoietin deficiency anemia Esophagitis determined by endoscopy EGD December 2019 ESRD (end stage renal disease) on dialysis On hemodialysis since June 2019 Gastroparesis due to DM Hyperlipidemia Papilledema Renal osteodystrophy Surgical History Surgical History Amputation of toe Two on the left AV fistula Left forearm H/O tubal ligation During one of her deliveries. History of section, classical X2 History of coronary artery stent placement History of laparoscopic cholecystectomy (03/15/21) History of tonsillectomy and adenoidectomy Hx of myringotomy S/P dialysis catheter insertion Right internal jugular June 2019 status post removal September 2019 S/P lateral meniscal repair S/P PICC central line placement Now removed S/P rotator cuff repair Family History Family History Other Adopted Social History Social History Social History: She has 2 children and she lives with her of 28 years. She is on disability. Patient stated that she is down to 1/4pack cigarettes a day. She has smoked up to a pack of cigarettes per day since she was 16 years old. She denies any heavy alcohol use or illicit substance use. Primary care physician: Dr. Christiano Ochoa Math Coach: Dr. Forbes Code status: Full code Healthcare power of staff attorney: Smoking packs per da
[2021-12-17 11:57] LABS: Cholesterol 155 mg/dL (0-200); HDL Direct 71 mg/dL; Triglycerides 80 mg/dL (<150)
[2021-12-17 12:08] LABS: LDL Cholesterol Direct 49 mg/dL
[2021-12-17 12:17] LABS: Hemoglobin A1C 7.6 % (<5.7)
[2021-12-17 12:32] LABS: SARS-CoV-2 RNA PCR Negative
[2021-12-17 12:42] LABS: Glucose Point of Care 271 mg/dl (65-105)
[2021-12-17] MEDS: INSULIN ASPART (*BKC) 100 UNITS/ML SUB-Q (13:26)
--- NOTE | 2021-12-17 14:33 | ECG_ITS ---
Measurements Intervals [place] Rate: 75 P: 51 OR: 198 QRS: -57 QRSD: 121 T: 134 QT: 396 QTc: 445 Interpretive Statements SINUS RHYTHM LEFT ANTERIOR FASCICULAR BLOCK SEPTAL MYOCARDIAL INFARCTION , PROBABLY OLD INFERIOR MYOCARDIAL INFARCTION , PROBABLY OLD ARTIFACT Electronically Signed On 12-18-2021 10:01:13 CDT by Douglas Samuels M.D.
--- NOTE | 2021-12-17 14:33 | PM.CNCAR ---
Assessment and Plan Assessment and plan (1) Chest pain: Code(s): R07.9 - Chest pain, unspecified Status: Acute (2) Elevated troponin: Code(s): R77.8 - Other specified abnormalities of plasma proteins Status: Acute Plan 46-year-old woman with extensive multivessel coronary disease with significantly calcified diffusely diseased coronary arteries. She certainly could have episodes of skin kelly chest pain despite surgical revascularization but today symptoms sound very atypical to me. The decision was already made to put her in the hospital and trend her troponin levels which will be done of course. I do not see a 12 lead ECG that would have been done in the emergency room so I will order 1 of those at this time. I do not anticipate launching another ischemic workup on this patient at [facility] given the recency of her surgical revascularization. I do not believe there would be any targets for revascularization that would benefit her at this hospital. If the patient is going to be transferred to [place] with this type of frequency from dialysis 1 might consider changing her dialysis location to a center that is much closer to [facility] where her clinical science liaison's practice. Edward Potter MD [facility] History of Present Illness History of Present Illness Consult date/time: 12/17/21 14:33 Consult reason: chest pain Reason For Visit: chest pain,chronic renal failure dialysis,elevated Narrative: This is a 46-year-old woman who I do know from previous admissions/consultations here at [facility]. She has significant coronary artery disease and is under the care of 1 of the cardiologists at [place] for follow-up. She has end-stage renal disease and is on hemodialysis and was brought here to the emergency room because of some chest pain that she reported while she was arriving for dialysis this morning. The patient states she had a stabbing sharp sensation in the center of the chest bit to the left of the midline this morning that went on for a couple of hours altogether. The symptom was not associated with shortness of breath diaphoresis or any other symptomatology. When she reported these symptoms coming in for dialysis she was sent here to the emergency room for evaluation. Her ongoing cardiac care however is not here at [facility] she is a patient of 1 of the cardiologists at [place]. Upon arrival here she was not having any symptoms any longer. Her evaluation of course included troponin levels which were elevated at 0.1. She it does have end-stage renal disease as has a BUN of 60 and a creatinine of 6. Potassium is 5.3. She is being worked up for dialysis here at [facility] as a coming to see her she is being treated for as an inpatient for dialysis at this time. She has no other complaints and feels relatively well at this time. She was not too concerned about her cardiac status she does not think this sharp stabbing pain was ischemic chest pain. She denies any symptoms of palpitations orthopnea or PND. She has a history of coronary disease with several previous RCA interventions being performed all of which are detailed in my last consultation note and will not be reiterated here. She came into this hospital recently in September of this year with ischemic chest pain I brought into the woven label designer and found a new high-grade left main coronary stenosis. I balloon pump was placed and she was transferred to [place] for bypass surgery which occurred at [facility]. She received an EDD graft to the LAD a vein graft to the circumflex and a vein graft to the right. I do not see an EKG on the chart from today. Once again she is being hooked up for dialysis and cannulated as I see her and she does not have any other symptoms Review of Systems Constitutional: Constitutional: Reports no additional constitutional complaints Eyes: Eyes: Reports no additional eye complaints ENT: Jovani
--- NOTE | 2021-12-17 14:42 | PCOTNOTE ---
Attempted to see pt. for evaluation. Pt. away at dialysis. Will follow.
[2021-12-17 14:55] LABS: Troponin I 0.115 ng/mL (0.000-0.034)
--- NOTE | 2021-12-17 15:36 | PCPTNOTE ---
Attempted to see pt. for PT evaluation. Pt. away at dialysis. Will follow.
[2021-12-17 16:08] LABS: Troponin I 0.146 ng/mL (0.000-0.034)
[2021-12-17 18:06] LABS: Glucose Point of Care 66 mg/dl (65-105)
[2021-12-17 19:02] LABS: Glucose Point of Care 132 mg/dl (65-105)
[2021-12-17] MEDS: HEPARIN SODIUM 5,000 UNITS/ML VIAL 5000 UNITS SUB-Q (20:48)
[2021-12-17] MEDS: MELATONIN 5 MG TABLET PO (20:48)
--- NOTE | 2021-12-17 20:51 | ECG_ITS ---
Measurements Intervals [place] Rate: 77 P: 51 VT: 198 QRS: -28 QRSD: 124 T: 141 QT: 433 QTc: 490 Interpretive Statements SINUS RHYTHM WITH OCCASIONAL SUPRAVENTRICULAR PREMATURE COMPLEXES LEFT ATRIAL ENLARGEMENT INFERIOR MYOCARDIAL INFARCTION-PROBABLY OLD ST T-WAVE ABNORMALITY, CONSIDER ISCHEMIA Electronically Signed On 12-18-2021 10:03:35 CDT by Douglas Samuels M.D.
[2021-12-18] VITALS (9 sets, daily range): BP systolic 130–142; BP diastolic 55–61; PULSE 73–85; RESP 14–20; TEMP 37.1–37.3; O2SAT 91–100
[2021-12-18 04:46] LABS: Basophils Percent Auto 0.4 % (0.2-1.2); Eosinophils Absolute Auto 0.1 K/mm3 (0-0.3); Eosinophils Percent Auto 1.5 % (0-4.4); Hematocrit 30.2 % (37.0-47.0); Hemoglobin 9.6 g/dL (12.0-15.0); Immature Granulocyte Absolute 0.02 K/mm3 (0.00-0.031); Immature Granulocyte Percent A 0.4 % (0-0.5); Lymphocytes Absolute Auto 1.47 K/mm3 (0.9-3.2); Lymphocytes Percent Auto 26.8 % (18.3-44.2); Mean Corpuscular HGB Conc 31.8 g/dl (32-36); Mean Corpuscular Hemoglobin 33.2 pg (26-34); Mean Corpuscular Volume 104.5 fl (80-100); Mean Platelet Volume 11.1 fl (7.4-10.4); Monocytes Absolute Auto 0.3 K/mm3 (0.1-0.6); Monocytes Percent Auto 5.3 % (2.6-8.5); Neutrophils Absolute Auto 3.6 K/mm3 (1.3-6.7); Neutrophils Percent Auto 65.6 % (45.5-73.1); Platelet Count Result 127 k/mm3 (150-375); Red Blood Count 2.89 M/mm3 (4.2-5.4); Red Cell Distribution Width 15.4 % (11.5-14.5); White Blood Count 5.5 K/mm3 (4.5-10.0)
[2021-12-18 05:00] LABS: Alanine Aminotransferase 49 U/L (6-35); Albumin Level 3.5 g/dL (3.5-5.1); Alkaline Phosphatase 192 U/L (38-126); Anion Gap 9 mmol/L (8-16); Aspartate Amino Transferase 50 U/L (14-36); Bilirubin,Total 0.4 mg/dL (0.2-1.3); Blood Urea Nitrogen 35 mg/dL (7-17); Calcium 9.1 mg/dL (8.4-10.2); Carbon Dioxide 32 mmol/L (22-30); Chloride 95 mmol/L (98-107); Estimated CRCL calculation 17 ml/min; Estimated Glomerular Filt Rate 13; Glucose 213 mg/dL (65-110); Potassium 4.3 mmol/L (3.4-5.0); Sodium 136 mmol/L (137-145)
[2021-12-18 07:51] LABS: Glucose Point of Care 202 mg/dl (65-105)
--- NOTE | 2021-12-18 08:38 | PM.DS ---
DS: Admitting Diagnosis Discharge Date 12/18/21 Admitting Diagnosis Chest Pain DS: Discharge Diagnosis Discharge Diagnosis (1) Chest pain: Code(s): R07.9 - Chest pain, unspecified Status: Acute Assessment and Plan: This morning patient reporting resolution of chest pain. Troponin was mildly elevated but flat. Hx of STEMI 10/02/21 with subsequent CABG. Echo today shows EF 35-40% with mild LV enlargement, moderate LVH and moderate global LV systolic function, moderate pulmonary HTN, diastolic dysfunction with elevated left atrial pressure and mild aortic stenosis. Cardiology recommends medical treatment with aspirin, beta jaye and statin with follow up with patient primary Cardiology team at [facility] -Will continue patient metoprolol, lisinopril and aspirin for discharge (2) Elevated troponin: Code(s): R77.8 - Other specified abnormalities of plasma proteins Status: Acute Assessment and Plan: Hx of STEMI w/ subsequent CABG. Follows with Cardiology at [facility]. Cardiology reommended medical management. Will discharge patient to home and recommend outpatient follow up with Cardiology. (3) End stage renal disease on dialysis: Code(s): N18.6 - End stage renal disease; Z99.2 - Dependence on renal dialysis Status: Acute Assessment and Plan: Nephrology is following and hemodialysis per Nephrology (4) Insulin dependent diabetes mellitus: Status: Acute Assessment and Plan: Continue home meds on discharge (5) GERD (gastroesophageal reflux disease): Code(s): K21.9 - Gastro-esophageal reflux disease without esophagitis Status: Acute Assessment and Plan: Continue home meds (6) Metabolic alkalosis: Code(s): E87.3 - Alkalosis Status: Acute Assessment and Plan: Stable present since October 2021. (7) Gastroparesis: Code(s): K31.84 - Gastroparesis Status: Acute Assessment and Plan: Resume home meds DS: Summary Hospital Course Reason for hospitalization: Chest pain Hospital Course: 46F with a past medical history of STEMI s/p CABG, ESRD on HD, CAD, CHF, Chiari Malformation, stroke and anemia who presented to the emergency department with chest pain that started about 30 minutes into her hemodialysis session. Troponin were mildly elevated. Cardiology was consulted and recommended medical management. Nephrology was consulted and patient had hemodialysis in the hospital. By the next morning the chest pain was resolved. Patient had an echo, which showed EF 35-40% with mild LV enlargement, moderate LVH and moderate global LV systolic function, moderate pulmonary HTN, diastolic dysfunction with elevated left atrial pressure and mild aortic stenosis. Prior to admission, patient was already on beta jaye, statin and aspirin. These were continued. Patient discharged to home and advised to follow up with [facility] cardiology. Time Spent with Patient Time attestation: Total time spent providing and/or coordinating discharge services: Exam Narrative: GENERAL: NAD, cooperative HEENT: Normocephalic, atraumatic, anicteric NECK: Supple CV: RRR, murmur present, no rubs or gallops RESP: CTAB, Normal work of breathing. EXTREMITIES: Warm and well perfused, no clubbing, cyanosis, or edema. LUE with AVF with bruit and thrill. SKIN: warm, dry and intact. NEURO: CN 2-12 grossly intact. DS: Data Data Completed and Pending Labs on day of discharge: Labs from last 24 hours 12/18/21 12/18/21 12/18/21 07:40 04:16 04:16 WBC 5.5 RBC 2.89 L Hgb 9.6 L Hct 30.2 L MCV 104.5 H MCH 33.2 MCHC 31.8 L RDW 15.4 H Plt Count 127 L MPV 11.1 H Immature Gran % (Auto) 0.4 Neut % (Auto) 65.6 Lymph % (Auto) 26.8 [place] % (Auto) 5.3 Eos % (Auto) 1.5 Baso % (Auto) 0.4 Lymph # (Auto) 1.47 [place] # (Auto) 0.3 Eos # (Auto) 0.1 Baso # (
--- NOTE | 2021-12-18 08:45 | PCPTNOTE ---
Discussed pt with OT Sara Acosta---informed her pt was indep and did not require an OT evaluation.
[2021-12-18] MEDS: HEPARIN SODIUM 5,000 UNITS/ML VIAL 5000 UNITS SUB-Q (09:26)
[2021-12-18] MEDS: INSULIN ASPART (*BKC) 100 UNITS/ML SUB-Q (09:26)
[2021-12-18] MEDS: ATORVASTATIN 40 MG TABLET PO (09:41)
[2021-12-18] MEDS: ASPIRIN 81 MG ENTERIC TABLET PO (09:41)
[2021-12-18] MEDS: calcitrioL 0.25 MCG CAPSULE PO (09:41)
[2021-12-18] MEDS: METOPROLOL TARTRATE 12.5 MG TABLET PO (09:42)
[2021-12-18] MEDS: SEVELAMER CARBONATE 800 MG TABLET PO (09:42)
[2021-12-18] MEDS: lisinopriL 20 MG TABLET PO (09:42)
[2021-12-18] MEDS: PANTOPRAZOLE 40 MG TABLET PO (09:42)
[2021-12-18] MEDS: FUROSEMIDE 40 MG TABLET 120 MG PO (09:42)
[2021-12-18] MEDS: CHOLECALCIFEROL 1,000 UNITS TABLET 2000 UNITS PO (09:42)
[2021-12-18] MEDS: CLOPIDOGREL BISULFATE 75 MG TABLET PO (09:42)
--- NOTE | 2021-12-18 09:57 | PM.PNCARD ---
Progress Note: A&P Assessment and Plan (1) Chest pain: Code(s): R07.9 - Chest pain, unspecified Status: Acute Assessment and Plan: Patient with known CAD, recent surgical revascularization presents to the hospital with recurrent chest pain. Troponins minimally elevated and essentially flat. Recent echocardiogram reportedly showed LVEF 50% with segmental wall motion abnormality. At present, patient is clinically stable and chest pain has resolved. Her EKG shows ST-T abnormality, not significantly changed compared to the previous EKG. She was seen by cardiology team yesterday, and plan was to continue her on medical treatment. Repeat echocardiogram has been ordered, and results are pending at this time. If no significant changes compared to the previous echocardiogram, the patient can be discharged home with medical treatment including aspirin, beta-jaye, statin. She will follow-up with her primary chief sales officer at [facility]. (2) Elevated troponin: Code(s): R77.8 - Other specified abnormalities of plasma proteins Status: Acute Assessment and Plan: Plan discussed above. (3) Coronary disease: Code(s): I25.10 - Atherosclerotic heart disease of [place] coronary artery without angina pectoris Status: Acute Assessment and Plan: Plan discussed above (4) End stage renal disease on dialysis: Code(s): N18.6 - End stage renal disease; Z99.2 - Dependence on renal dialysis Status: Acute Assessment and Plan: Renal replacement therapy with hemodialysis Subjective Date/time seen: 12/18/21 09:57 Interval history: Date of service: 12/18/2021 Interval history: Patient reports resolution of chest discomfort. At the time of evaluation, she was sitting up in the chair without any ongoing cardiovascular symptoms. Exam Narrative: PHYSICAL EXAMINATION: GENERAL: Alert, oriented, no acute distress MENTAL STATUS: affect appropriate to mood EYES: Extraocular movements intact, no pallor EARS: External ears appear normal, hearing grossly normal NOSE: Normal and patent, no discharge MOUTH: Mucous membranes moist, tongue normal NECK: Supple, no JVD CHEST: Good respiratory effort, clear to auscultation HEART: Normal rate, regular rhythm, normal S1 and S2 ABDOMEN: Soft, nontender NEUROLOGICAL: Alert, oriented, normal speech, no gross motor deficits MUSCULOSKELETAL: No major deformity, no amputation EXTREMITIES: Trace pedal edema, no clubbing, no cyanosis SKIN: no rash on the exposed area, no cyanosis PSYCHIATRIC: Normal mood, appropriate affect Objective Data Vital Signs Vital Signs: Vital Signs - 24 hr 12/17/21 11:11 12/17/21 14:13 12/17/21 14:27 Temperature 37.6 C H Pulse Rate 99 96 94 Respiratory Rate 21 H 17 Blood Pressure 143/69 H 132/56 L 135/64 Pulse Oximetry 99 96 Oxygen Delivery 12/17/21 14:47 12/17/21 15:15 12/17/21 14:21 Temperature 36.4 C Pulse Rate 76 76 95 Respiratory Rate 18 Blood Pressure 118/59 L 118/59 L 130/59 L Pulse Oximetry Oxygen Delivery 12/17/21 15:35 12/17/21 15:36 12/17/21 15:55 Temperature Pulse Rate 76 75 75 Respiratory Rate Blood Pressure 111/51 L 111/51 L Pulse Oximetry Oxygen Delivery 12/17/21 16:05 12/17/21 16:20 12/17/21 16:40 Temperature Pulse Rate 76 76 75 Respiratory Rate Blood Pressure 111/51 L 123/60 129/57 L Pulse Oximetry Oxygen Delivery 12/17/21 16:00 12/17/21 17:10 12/17/21 17:20 Temperature Pulse Rate 74 73 73 Respiratory Rate Blood Pressure 115/53 L 115/53 L Pulse Oximetry Oxygen Delivery 12/17/21 17:27 12/17/21 17:27 12/17/21 20:00 Temperature 36.5 C Pulse Rate 75 73 75 Respiratory Rate 18 Blood Pressure 136/61 132/65 Pulse Oximetry Oxygen Delivery 12/17/21 20:00 12/17/21 20:00 12/17/21 22:00 Temperature 36.6 C Pulse Rate 75 84 100 Respiratory Rate 18 20 Blood Pressu
--- NOTE | 2021-12-18 11:09 | ECHO_ITS ---
Patient Info Name: Pamela Bhat Age: 46 years : 1975 Gender: Female Ht: 65 in Wt: 150 lbs BSA: 1.78 m2 HR: 83 bpm BP: 130 / 60 mmHg Heart Rhythm: Sinus Rhythm Exam Date: 12/18/2021 10:17 AM Exam Location: [facility] Pulmonary Patient Status: Inpatient Admit Date: 12/17/2021 Staff Ordering Physician: Sandy Courtney APRN Bus And Rail Operator: Michael Lawler RDCS, RT Attending Provider: Man Gusman MD Referring Physician: Sherwin RETANA; Exam Type: CA echo doppler color flow Study Info Indications R07.9 - Chest pain, unspecified Complete two-dimensional, color flow and Doppler transthoracic echocardiogram is performed. Strain analysis performed. Summary 1. Complete two-dimensional, color flow and Doppler transthoracic echocardiogram is performed. 2. Mild LV enlargement, moderate LVH, moderate global LV systolic dysfunction with mild spontaneous echo contrast, ejection fraction about 35-40%; diastolic dysfunction is present with elevated left atrial pressures. Mild left atrial enlargement. Mild mitral annular calcification, mild mitral regurgitation. Mild aortic valve calcification, mild aortic stenosis, valve area 1.8 cm2 by planimetry. Normal tricuspid valve, [id number] tricuspid regurgitation, moderate pulmonary hypertension, RVSP 54 mmHg. Left Ventricle Left ventricular chamber dimension is mildly enlarged. Left ventricular systolic function is moderately reduced, estimated at 35-40%. There is moderately increased left ventricular wall thickness. The left ventricular diastolic function is abnormal. E/e' 35.6 is abnormal. Right Ventricle Right ventricular chamber dimension is mildly enlarged. Right ventricular systolic function is normal. Left Atria Left atrial chamber dimension is mildly enlarged. Right Atria Right atrial chamber dimension is normal. Aortic Valve There is mild aortic valve stenosis with a peak velocity of 176 cm/s, mean gradient of 6 mmHg, and aortic valve area of 2.0 cm2. There is mild aortic valve calcification. Pulmonic Valve The pulmonic valve is not well visualized. Mitral Valve There is mild mitral valve regurgitation. There is mild mitral valve calcification. Tricuspid Valve The tricuspid valve leaflets are normal. There is mild to moderate tricuspid valve regurgitation. Moderate pulmonary hypertension, estimated pulmonary arterial systolic pressure is 54 mmHg. Inferior Vena Cava Dilated inferior vena cava with no collapse upon inspiration consistent with Empty right atrial pressure, 15 mmHg. Aorta The aortic root size at the sinus of Valsalva is normal. There is moderate aortic atherosclerosis. Left Ventricular Outflow Tract Name Value Normal LVOT 2D LVOT Diameter 2.0 cm LVOT Doppler LVOT Peak Gradient 4 mmHg LVOT Mean Gradient 2 mmHg LVOT VTI 21 cm LVOT VTI/AV VTI Ratio 0.6 LVOT Stroke Volume 67 ml LVOT CO 5.5 l/min LVOT CI
[2021-12-18 12:06] LABS: Glucose Point of Care 180 mg/dl (65-105)
[2021-12-18] MEDS: METOCLOPRAMIDE HCL 5 MG TABLET PO (12:48)
[2021-12-18 16:11] LABS: Glucose Point of Care 243 mg/dl (65-105)
--- NOTE | 2021-12-18 17:07 | PM.CNNEP ---
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 This is a delayed dictation. She was seen in the emergency room. I subsequently had spoken to Dr. Marinelli basically a 46-year-old white female with known coronary artery disease, status post recent CABG, came in with chest pain up to having had dialysis for an hour in the dialysis unit. Pain was central, stabbing in nature, no radiation, some shortness of breath, no nausea vomiting or diaphoresis. Being admitted for further cardiac management. The chest x-ray had shown some congestive changes and we were asked to see in consultation. Potassium was borderline. I arranged for dialysis on the patient. Review of Systems Review of Systems: No uremic features. Negative Systemic review essentially. [facility] Past Medical History Medical History Anasarca CAD (coronary artery disease) RCA stent placed in August 2020 CHF (congestive heart failure) Chiari I malformation Chronic osteomyelitis Status post toe amputations CVA (cerebral vascular accident) Small old lacunar infarct at the head of the right caudate nucleus. Dialysis patient Erythropoietin deficiency anemia Esophagitis determined by endoscopy EGD December 2019 ESRD (end stage renal disease) on dialysis On hemodialysis since June 2019 Gastroparesis due to DM Hyperlipidemia Papilledema Renal osteodystrophy Surgical History Surgical History Amputation of toe Two on the left AV fistula Left forearm H/O tubal ligation During one of her deliveries. History of section, classical X2 History of coronary artery stent placement History of laparoscopic cholecystectomy (03/15/21) History of tonsillectomy and adenoidectomy Hx of myringotomy S/P dialysis catheter insertion Right internal jugular June 2019 status post removal September 2019 S/P lateral meniscal repair S/P PICC central line placement Now removed S/P rotator cuff repair Family History Family History Other Adopted Social History Social History Social History: She has 2 children and she lives with her of 28 years. She is on disability. Patient stated that she is down to 1/4pack cigarettes a day. She has smoked up to a pack of cigarettes per day since she was 16 years old. She denies any heavy alcohol use or illicit substance use. Primary care physician: Dr. Christiano Ochoa Latex Foam Worker: Dr. Forbes Code status: Full code Healthcare power of ip attorney: Smoking packs per day: 1 Smoking cigarettes per day: 20.0 Years smoked: 28 Smoking pack-years: 28.00 Smoking status: Current every day smoker Tobacco type: cigarettes Second hand tobacco smoke exposure: Yes Additional smoking assessment comments: Smoked 1 pack a day since 16. Currently at 0.25 pack per day Alcohol intake: never Substance use: never Substance use type: does not use Gender identity (if verbalized by the patient): Female Sexual Orientation (if Verbalized by the Patient): Straight or Heter
== END 2021-12-18 18:14 | disposition home or self-care (01) ==
LOC: ANHED 12:42 → ANHIMU 13:46
PROVIDERS: Nurse Practitioner Family; Admitting Provider Internal Medicine; Emergency Provider Emergency Medicine; PCP Internal Medicine; Visit Provider Family Medicine
DX: R07.9 Chest pain, unspecified (principal); J81.1 Chronic pulmonary edema; R77.8 Other specified abnormalities of plasma proteins; E87.3 Alkalosis; I13.2 Hypertensive heart and chronic kidney disease with heart failure and with stage 5 chronic kidney disease, or end stage renal disease; E11.22 Type 2 diabetes mellitus with diabetic chronic kidney disease; N18.6 End stage renal disease; I50.9 Heart failure, unspecified; Z99.2 Dependence on renal dialysis; G93.5 Compression of brain; I25.10 Atherosclerotic heart disease of native coronary artery without angina pectoris; E11.69 Type 2 diabetes mellitus with other specified complication; M86.9 Osteomyelitis, unspecified; E11.43 Type 2 diabetes mellitus with diabetic autonomic (poly)neuropathy; K31.84 Gastroparesis; I25.2 Old myocardial infarction; Z86.73 Personal history of transient ischemic attack (TIA), and cerebral infarction without residual deficits; D63.1 Anemia in chronic kidney disease; E78.5 Hyperlipidemia, unspecified; N25.0 Renal osteodystrophy; Z79.4 Long term (current) use of insulin; Z79.02 Long term (current) use of antithrombotics/antiplatelets; Z79.82 Long term (current) use of aspirin; Z95.5 Presence of coronary angioplasty implant and graft; Z89.422 Acquired absence of other left toe(s); Z87.891 Personal history of nicotine dependence; Z20.822 Contact with and (suspected) exposure to COVID-19
CPT/HCPCS: 36415; 71045; 80053; 80061; 82948; 83036; 83690; 83735; 84484; 85025; 85610; 85730; 93005; 93306; 96372; 96374; 96375; 97161; 97165; 99285; A9270; C9803; G0257; G0378; J1644; J1815; J2270; J7030; U0003; U0005

== ENCOUNTER 2021-12-27 08:46 | Inpatient (IN) | payer OTHER, MEDICARE, MEDICAID, SELFPAY ==
[2021-12-27] VITALS (50 sets, daily range): BP systolic 127–188; BP diastolic 40–89; PULSE 80–88; RESP 7–30; TEMP 36.3–37; O2SAT 67–100; BMI 25.8
--- NOTE | ~2021-12-27 | CT_ITS ---
EXAMINATION: CT abdomen pelvis w con DATE: 12/27/2021 09:44 INDICATION: Right lower quadrant abdominal pain. Nausea, vomiting and diarrhea. TECHNIQUE: Computed tomography (CT) of the abdomen and pelvis was performed with 100 CC Omnipaque 300 intravenous contrast. Automated exposure control and iterative reconstruction technique were employe d. Exam dose: 350.76 mGy-cm total exam DLP. COMPARISON: 11/09/2021 CT chest abdomen pelvis FINDINGS: Mild bilateral lower lobe infiltrate and/atelectasis, left greater than right. Status post sternotomy. Cardiomegaly. Extensive coronary artery calcification. No pericardial effusion. Status post cholecystectomy. Hepatic steatosis. No hepatic, splenic, pancreatic or adrenal space-occu pying mass lesion is evident. No bile duct or pancreatic duct dilatation. Bilateral renal atrophy. No urinary tract calculus or hydroureteronephrosis. There is diffuse thicken ing of the urinary bladder wall; cystitis is not excluded. The uterus and adnexal areas are unremarka ble. There is severe calcification of the abdominal aorta, celiac, hepatic, splenic, superior mesenteric a nd renal arteries in addition to the abdominal aorta, iliac and femoral arteries. There is extensive intrarenal arterial calcification of the kidneys. No intraperitoneal or retroperitoneal or pelvic mass lesion or adenopathy or ascites is noted. The appendix appears normal. No bowel obstruction or intraperitoneal free air is detected. No suspicious osteolytic or osteoblastic lesions are noted. IMPRESSION: Bilateral lower lobe infiltrate and/atelectasis, greater on the left Cardiomegaly Extensive coronary, abdominal aortic, celiac, superior mesenteric, hepatic, splenic and renal artery calcifications, as well as iliac and femoral artery calcifications; diabetes is suggested. Hepatic steatosis Status post cholecystectomy Bilateral renal atrophy No CT evidence of appendicitis or bowel obstruction or free air Reviewed, dictated and finalized at [facility]. Reviewed, dictated and finalized at location [facility]. IMPRESSION: Bilateral lower lobe infiltrate and/atelectasis, greater on the le ft Cardiomegaly Extensive coronary, abdominal aortic, celiac, superior mesenteric, hepatic, spl enic and renal artery calcifications, as well as iliac and femoral artery calci fications; diabetes is suggested. Hepatic steatosis Status post cholecystectomy Bilateral renal atrophy No CT evidence of appendicitis or bowel obstruction or free air
--- NOTE | ~2021-12-27 | XR_ITS ---
XR chest 2V DATE: 12/27/2021 14:38 INDICATION: Hypoxia. Weakness. Nausea and vomiting. TECHNIQUE: AP and lateral views COMPARISON: 12/18/2021 portable AP chest FINDINGS: Status post sternotomy and probable coronary bypass graft surgery. There is cardiomegaly. Left lower lung infiltrate and/or atelectasis and mild right basilar infiltrate or atelectasis. The p atient is rotated to the left; the left upper lung is not optimally visualized. Status post cholecystectomy Osteopenia. IMPRESSION: Limited rotated portable study; bilateral lower lung infiltrate and/atelectasis, left gre ater than right Cardiomegaly Reviewed, dictated and finalized at location [facility]. IMPRESSION: Limited rotated portable study; bilateral lower lung infiltrate and /atelectasis, left greater than right Cardiomegaly
--- NOTE | ~2021-12-27 | XR_ITS ---
XR chest 1V portable DATE: 12/29/2021 06:42 INDICATION: Shortness of breath TECHNIQUE: Portable upright AP chest on 12/29/2021 at 0556 hours COMPARISON: 12/27/2021 portable AP chest at 1434 hours FINDINGS: Status post sternotomy. Cardiomegaly. Mild infiltrate or atelectasis in the lower lung zone s, left greater than right. No pleural effusion or pneumothorax is noted. IMPRESSION: Cardiomegaly Mild infiltrate or atelectasis in the lower lung zones suggestion of improvement on the left Reviewed, dictated and finalized at location [facility]. IMPRESSION: Cardiomegaly Mild infiltrate or atelectasis in the lower lung zones suggestion of improvemen t on the left
[2021-12-27 09:19] LABS: Basophils Percent Auto 0.2 % (0.2-1.2); Hematocrit 36.7 % (37.0-47.0); Hemoglobin 11.6 g/dL (12.0-15.0); Immature Granulocyte Absolute 0.07 K/mm3 (0.00-0.031); Immature Granulocyte Percent A 0.7 % (0-0.5); Lymphocytes Absolute Auto 0.62 K/mm3 (0.9-3.2); Lymphocytes Percent Auto 6.3 % (18.3-44.2); Mean Corpuscular HGB Conc 31.6 g/dl (32-36); Mean Corpuscular Volume 104.3 fl (80-100); Mean Platelet Volume 10.8 fl (7.4-10.4); Monocytes Absolute Auto 0.4 K/mm3 (0.1-0.6); Monocytes Percent Auto 3.9 % (2.6-8.5); Neutrophils Absolute Auto 8.8 K/mm3 (1.3-6.7); Neutrophils Percent Auto 88.9 % (45.5-73.1); Nucleated Red Blood Cells Perc 0.2 % (0.0-0.2); Platelet Count Result 191 k/mm3 (150-375); Red Blood Count 3.52 M/mm3 (4.2-5.4); Red Cell Distribution Width 15.3 % (11.5-14.5); White Blood Count 9.9 K/mm3 (4.5-10.0)
--- NOTE | 2021-12-27 09:26 | ED.NAVMDI ---
HPI - Nausea/Vomiting/Diarrhea General Chief complaint: Nausea/Vomiting/Diarrhea Stated complaint: Nausea vomiting Time Seen by Provider: 12/27/21 09:13 Source: patient History of Present Illness HPI Narrative: Patient presents with nausea vomiting diarrhea and abdominal pain. Reports her symptoms started yesterday getting progressively worse so she came the ER for further evaluation. Denies any blood bile or melena in her excretions. Her pain is in her abdomen is right lower quadrant constant, no clear aggravating or alleviating factors. Her symptoms are improving she wanted to come to the ER. For she had subjective fevers at home as denies any known sick contacts she is attempted [id number] medication with out relief of her symptoms. She denies any recent antibiotic or travel outside the area Related Data Home Medications Medication Instructions Recorded Confirmed clopidogrel 75 mg tablet (Plavix) 75 mg PO DAILY 12/01/20 12/17/21 lisinopril 20 mg tablet 20 mg PO DAILY 12/01/20 12/17/21 aspirin 81 mg tablet,delayed 81 mg PO DAILY 12/20/20 12/17/21 release metoclopramide HCl 5 mg tablet 5 mg PO TID 12/20/20 12/17/21 furosemide 80 mg tablet 120 mg PO BID 03/13/21 12/17/21 multivitamin-iron 9 mg-folic acid 1 tablet PO DAILY 03/13/21 12/17/21 400 mcg-calcium and minerals tablet (Thera-M) sevelamer carbonate 800 mg tablet 800 mg PO TIDWM 03/13/21 12/17/21 insulin lispro 100 unit/mL 7 unit subcut TIDWM 09/03/21 12/17/21 subcutaneous pen (Humalog KwikPen (U-100) Insulin) pantoprazole 40 mg tablet,delayed 40 mg PO DAILY 09/03/21 12/17/21 release acetaminophen 500 mg capsule 500 mg PO Q6H PRN Pain 11/07/21 12/17/21 insulin glargine 100 unit/mL 15 unit subcut DAILY 11/07/21 12/17/21 subcutaneous solution (Lantus U-100 Insulin) Allergies Allergy/AdvReac Type Severity Reaction Status Date / Time No Known Drug Allergies Allergy Unknown Verified 12/27/21 09:17 Review of Systems Review of Systems: CONSTITUTIONAL: Subjective fevers EYES: Denies visual changes, redness, or discharge. ENT: Denies rhinorrhea, congestion, sore throat, or otalgia. CARDIOVASCULAR: Denies chest pain, palpitations, or edema. RESPIRATORY: Denies cough or dyspnea. GASTROINTESTINAL: Abdominal pain nausea vomiting diarrhea GENITOURINARY: Denies dysuria or hematuria. SKIN: Denies rash or itching. MUSCULOSKELETAL: Denies back pain, joint pain, or myalgia. NEUROLOGIC: Denies headache, numbness, dizziness, or weakness. PSYCHIATRIC: Denies anxiety or depression. All systems reviewed & are unremarkable except as noted in HPI and below PMFSH Past Medical History Medical History Anasarca CAD (coronary artery disease) RCA stent placed in August 2020 CHF (congestive heart failure) Chiari I malformation Chronic osteomyelitis Status post toe amputations CVA (cerebral vascular accident) Small old lacunar infarct at the head of the right caudate nucleus. Dialysis patient Erythropoietin deficiency anemia Esophagitis determined by endoscopy EGD December 2019 ESRD (end stage renal disease) on dialysis On hemodialysis since June 2019 Gastroparesis due to DM Hyperlipidemia Papilledema Renal osteodystrophy Surgical History Surgical History Amputation of toe Two on the left AV fistula Left forearm H/O tubal ligation During one of her deliveries. History of section, classical X2 History of coronary artery stent placement History of laparoscopic cholecystectomy (03/15/21) History of tonsillectomy and adenoidectomy Hx of myringotomy S/P dialysis catheter insertion Right internal jugular June 2019 status post removal September 2019 S/P lateral meniscal repair S/P PICC central line placement Now removed S/P rotator cuff repair Family History Family History (Reviewed 12/27/21 @ 09:27 by Huber Cantrell,
[2021-12-27 09:27] LABS: Alanine Aminotransferase 60 U/L (6-35); Albumin Level 4.7 g/dL (3.5-5.1); Alkaline Phosphatase 299 U/L (38-126); Anion Gap 21 mmol/L (8-16); Aspartate Amino Transferase 40 U/L (14-36); Bilirubin,Total 1.3 mg/dL (0.2-1.3); Blood Urea Nitrogen 32 mg/dL (7-17); Calcium 9.6 mg/dL (8.4-10.2); Carbon Dioxide 36 mmol/L (22-30); Chloride 84 mmol/L (98-107); Estimated CRCL calculation 13 ml/min; Estimated Glomerular Filt Rate 10; Glucose 364 mg/dL (65-110); Lipase 94 U/L (23-300); Potassium 4.4 mmol/L (3.4-5.0); Sodium 141 mmol/L (137-145)
--- NOTE | 2021-12-27 09:30 | PC.NURSE ---
Patient reports that she produces very little urine and refuses a straight cath for collection. aware.
[2021-12-27] MEDS: SODIUM CHLORIDE 0.9% IV 500 ML 999 ML IV CONT (10:07)
[2021-12-27] MEDS: ONDANSETRON INJ 4 MG/2 ML VIAL IV PUSH ×3 (10:07→23:15)
--- NOTE | 2021-12-27 10:22 | PC.NURSE ---
Pharmacy contacted regarding Insulin
[2021-12-27] MEDS: INSULIN HUMAN REGULAR (*BKC) 100 UNITS/ML SUB-Q (10:53)
--- NOTE | 2021-12-27 11:15 | PC.NURSE ---
Patient report given to [employer]. All questions answered and care of patient transferred.
[2021-12-27 11:47] LABS: Glucose Point of Care 356 mg/dl (65-105)
[2021-12-27] MEDS: INSULIN HUMAN REGULAR (*BKC) 100 UNITS/ML 7 UNITS IV PUSH (11:52)
--- NOTE | 2021-12-27 12:02 | PC.NURSE ---
patient had another emesis of approx 500ml. Dr. Cantrell aware. new orders received
[2021-12-27 13:09] LABS: Blood Urea Nitrogen 36 mg/dL (7-17); Calcium 9.2 mg/dL (8.4-10.2); Carbon Dioxide > 40 mmol/L (22-30); Chloride 84 mmol/L (98-107); Estimated CRCL calculation 12 ml/min; Estimated Glomerular Filt Rate 10; Glucose 300 mg/dL (65-110); Potassium 3.9 mmol/L (3.4-5.0); Sodium 142 mmol/L (137-145)
[2021-12-27 14:07] LABS: Alveolar/Arterial O2 Gradient 89.6 mmHg; Fractional Inspired Oxygen 28 %; HCO3 ABG 42.9 mEq/l (22.0-26.0); Oxygen Content ABG 13.6 %vol (16.0-22.0); PCO2 ABG 51.8 mmHg (35.0-45.0); PO2 FiO2 Ratio Arterial Blood 1.75 %; Total Hemoglobin 11.4 g/dL (12.0-18.0)
[2021-12-27 14:09] LABS: pH ABG 7.536 (7.350-7.450)
[2021-12-27 14:10] LABS: PO2 ABG 48.9 mmHg (80.0-100.0)
[2021-12-27 14:11] LABS: Device NASAL CANNULA; Oxyhemoglobin 84.8 % THb (90.0-100.0); Site Drawn RIGHT BRACHIAL
--- NOTE | 2021-12-27 14:29 | ECG_ITS ---
Measurements Intervals [place] Rate: 84 P: 65 FL: 186 QRS: -17 QRSD: 124 T: -68 QT: 431 QTc: 511 Interpretive Statements SINUS RHYTHM LEFT ATRIAL ENLARGEMENT [-0.15mV P WAVE IN V1/V2] POSSIBLE RIGHT VENTRICULAR CONDUCTION DELAY [RSR (QR) IN V1/V2] NONSPECIFIC ST & T-WAVE ABNORMALITY PROLONGED QT INTERVAL POSSIBLE OLD INFERIOR MYOCARDIAL INFARCTION COMPARED TO ECG 12/17/2021 20:14:19 PROLONGED QT INTERVAL NOW PRESENT Electronically Signed On 12-27-2021 18:10:20 CDT by Kandace Fulton M.D.
[2021-12-27 14:51] LABS: Glucose Point of Care 255 mg/dl (65-105)
[2021-12-27 15:20] LABS: NT Pro B Type Natriuretic Pept > 35000 pg/mL (5-100); Troponin I 0.835 ng/mL (0.000-0.034)
[2021-12-27 15:27] LABS: SARS-CoV-2 RNA PCR Negative
--- NOTE | 2021-12-27 16:25 | PM.IMHP ---
H&P: HPI History of Present Illness Date/Time: 12/27/21 16:25 Chief Complaint: Nausea, vomiting, diarrhea. Narrative: This is an unfortunate 46-year-old female with end-stage renal disease on hemodialysis, insulin-dependent diabetes, coronary artery disease, and other comorbidities who presented to the emergency department for evaluation of nausea, vomiting, and diarrhea. She reports innumerable episodes of vomiting and diarrhea over the past 2 days in addition to sweats and diffuse right-sided abdominal discomfort. She is so weak that she decided to come in today for evaluation. CT of the abdomen and pelvis did not show any acute findings and she was given a 0.5 L of normal saline and Zofran with improvement in her symptoms. In fact she was to be discharged however while in her room waiting for discharge papers she appeared to be a bit unresponsive and was hypoxic. Stat chest x-ray showed bilateral lower lung infiltrates and/or atelectasis and this is consistent with the infiltrates/atelectasis noted on CT of the abdomen and pelvis. She has no history to suggest pneumonia, however, and she specifically denies cough, shortness of breath, chest congestion, etc.. She was tested for COVID and her SARS-CoV-2 by PCR did come back negative. A troponin and BNP were also added after she began hypoxic and they were both elevated though seemed to be near her baseline. She has not had any chest pain whatsoever and she denies shortness of breath and pleuritic pain. It is noted that during her previous stay she has had witnessed apneic episodes with a positive apnea link though she has yet to have an outpatient polysomnogram. Review of Systems Review of Systems: Twelve systems were reviewed. No fever chills but she has had some sweats. No syncope or near syncope but she has felt a bit lightheaded with position change. No sinus congestion or sore throat. She denies cough. No orthopnea or significant lower extremity edema. She has not noticed any blood or mucus in her stools. Glucose has been stable and she has been trying to get her diabetes in better control. However her glucose was 300 on arrival today. No blurry vision, polydipsia, or polyuria. She denies sick contacts and her has not had similar symptoms. No recent antibiotic use or travel. Except as documented, all other systems were reviewed and are negative. [facility] Past Medical History Medical History (Updated 12/27/21 @ 23:09 by Dena Rodney PA-C) Anasarca Cerebrovascular accident Small old lacunar infarct at the head of the right caudate nucleus. Chiari I malformation Chronic osteomyelitis Status post toe amputations Congestive heart failure Coronary artery disease Status post stent to the right coronary artery in August 2020. End-stage renal disease on hemodialysis On dialysis since June 2019. Erythropoietin deficiency anemia Esophagitis determined by endoscopy (12/2019) Gastroparesis due to DM Hyperlipidemia Renal osteodystrophy Surgical History Surgical History (Updated 12/27/21 @ 22:59 by Dena Rodney PA-C) Amputation of toe Two on the left AV fistula Left forearm History of section, classical X2 History of coronary artery stent placement History of laparoscopic cholecystectomy (03/15/21) History of myringotomy History of repair of rotator cuff History of tonsillectomy and adenoidectomy History of tubal ligation Hx of myringotomy Status post lateral meniscus repair Family History Family History Other Adopted Social History Social History (Updated 12/27/21 @ 23:01 by Dena Rodney PA-C) Social History: She has 2 children and she lives with her of 28 years. She is on disability. She smoked up to a pack of cigarettes a day since the age of 16 but now smokes about a 4th a pack a day. She denies alcohol and illicit substance abuse. Surrogate decision maker: Diana Vieira
[2021-12-27 16:33] LABS: Troponin I 0.983 ng/mL (0.000-0.034)
[2021-12-27 18:14] LABS: Glucose Point of Care 99 mg/dl (65-105)
--- NOTE | 2021-12-27 18:42 | ADMGEN ---
This patient, Pamela Bhat, was admitted to IMU Room 203-01. Patient/family oriented to hospital policies and general routines including ID bracelet, bed and alarms, visiting hours, pain management, procedures, bathroom and other care routines, personal items, smoking policy, room service/diet, and visiting hours. Information on how to activate the Rapid Response Team has been discussed. Patient/Family are encouraged to report perceived risks to care and to ask questions if they do not understand what they are told or what they should do.
[2021-12-27 22:03] LABS: Glucose Point of Care 262 mg/dl (65-105)
[2021-12-27] MEDS: SODIUM CHLORIDE 0.9% IV 500 ML 70 ML IV CONT (23:48)
[2021-12-28] VITALS (28 sets, daily range): BP systolic 143–161; BP diastolic 59–85; PULSE 65–105; RESP 16–28; TEMP 36–36.9; O2SAT 93–100
[2021-12-28 00:05] LABS: Troponin I 0.981 ng/mL (0.000-0.034)
[2021-12-28] MEDS: ONDANSETRON INJ 4 MG/2 ML VIAL IV PUSH ×3 (04:27→20:54)
[2021-12-28 05:04] LABS: Hemoglobin 10.8 g/dL (12.0-15.0); Mean Corpuscular HGB Conc 30.9 g/dl (32-36); Mean Corpuscular Hemoglobin 32.4 pg (26-34); Mean Corpuscular Volume 105.1 fl (80-100); Mean Platelet Volume 11.1 fl (7.4-10.4); Platelet Count Result 194 k/mm3 (150-375); Red Blood Count 3.33 M/mm3 (4.2-5.4); Red Cell Distribution Width 15.7 % (11.5-14.5); White Blood Count 10.9 K/mm3 (4.5-10.0)
[2021-12-28 07:19] LABS: Troponin I 0.919 ng/mL (0.000-0.034)
--- NOTE | 2021-12-28 07:38 | PM.IMPN ---
Progress Note: A&P Assessment and Plan (1) Viral gastroenteritis: Code(s): A08.4 - Viral intestinal infection, unspecified Status: Acute Assessment and Plan: History seems consistent with viral gastroenteritis. nausea and vomiting and mildly improved although the patient was having episodes of emesis this morning Imodium was added to the patient's medication list for diarrhea P.r.n. Zofran (2) Dehydration: Code(s): E86.0 - Dehydration Status: Acute Assessment and Plan: Patient received 500 mL of normal saline in the emergency department and half a L over the night. Patient will receive dialysis this morning (3) Hypoxia: Code(s): R09.02 - Hypoxemia Status: Acute Assessment and Plan: She has had this problems intermittently with positive ApneaLink. Imaging also shows bilateral infiltrates versus atelectasis, most likely atelectasis. Incentive spirometry ordered. CPAP ordered for tonight to see if she will tolerate that. She was encouraged to have outpatient follow-up NIURKA Pulmonary embolism is considered but seems less likely by history. (4) End-stage renal disease on hemodialysis: Code(s): N18.6 - End stage renal disease; Z99.2 - Dependence on renal dialysis Status: Acute Assessment and Plan: Dr. Forbes consulted for dialysis Patient receives dialysis on Friday, Friday and Friday. She reports compliance (5) Elevated troponin: Code(s): R77.8 - Other specified abnormalities of plasma proteins Status: Acute Assessment and Plan: Patient does not have any chest pain or shortness of breath at this time. Troponins may be elevated due to chronic medical comorbidities. Continue to monitor troponins, a troponins elevate consider consulting Cardiology (6) Insulin dependent diabetes mellitus: Status: Acute Assessment and Plan: Insulin Lispro sliding scale, Accu-checks qAc and HS HgbA1c on 12/17/2021 was 7.6 (7) Tobacco dependence: Code(s): F17.200 - Nicotine dependence, unspecified, uncomplicated Status: Chronic Assessment and Plan: Smoking cessation counseling given for 3 minutes, will add nicotine patch daily. Patient does not seem motivated to stop smoking. (8) Hypertension: Qualifiers: Hypertension type: unspecified Qualified Code(s): I10 - Essential (primary) hypertension Code(s): I10 - Essential (primary) hypertension Status: Chronic Assessment and Plan: Blood pressures were reviewed and they have been running in the 150s to 160 systolic. Antihypertensives will be reviewed and resumed as appropriate. (9) Physical debility: Code(s): R53.81 - Other malaise Status: Acute Assessment and Plan: Consult physical therapy and occupational therapy to eval and treat Subjective Date/time seen: 12/28/21 07:38 Patient was evaluated this morning. She is having bouts of emesis when she was evaluated. RN administered Zofran IVP. . Patient denies possible aspiration, although this can not be completely ruled out. Patient reported that she has had innumerable episodes of vomiting and diarrhea over the past 2 days in addition to sweats and diffuse right-sided abdominal pain. Patient is a diabetic type 1 neuropathy although her gastroparesis appears controlled. Patient will go to dialysis to remove additional fluid today. Patient denies any marijuana usage that may have induced intractable nausea and vomiting. Patient denied any recent fast food or restaurant eating. Unsure why patient has intractable nausea and vomiting, will continue with supportive care Review of Systems Review of Systems: All systems reviewed & are unremarkable except as noted in HPI and below Exam Narrative: General: Chronically ill-appearing female in the semi-Valle position in bed. Episodes of emesis Weight: 70.5 kg. BMI: 25.9. HEENT: EMMANUEL [place]IL[place]. Conjunct
[2021-12-28 07:54] LABS: Alanine Aminotransferase 35 U/L (6-35); Albumin Level 4.3 g/dL (3.5-5.1); Alkaline Phosphatase 247 U/L (38-126); Aspartate Amino Transferase 29 U/L (14-36); Blood Urea Nitrogen 47 mg/dL (7-17); Calcium 8.5 mg/dL (8.4-10.2); Carbon Dioxide > 40 mmol/L (22-30); Chloride 84 mmol/L (98-107); Estimated CRCL calculation 10 ml/min; Estimated Glomerular Filt Rate 7; Glucose 289 mg/dL (65-110); Potassium 4.9 mmol/L (3.4-5.0); Sodium 139 mmol/L (137-145)
[2021-12-28 08:06] LABS: Magnesium 2.2 mg/dL (1.6-2.3); Phosphorus 7.5 mg/dL (2.5-4.5)
[2021-12-28] MEDS: INSULIN ASPART (*BKC) 100 UNITS/ML SUB-Q (08:16)
[2021-12-28 08:17] LABS: Glucose Point of Care 313 mg/dl (65-105)
[2021-12-28] MEDS: HEPARIN SODIUM 5,000 UNITS/ML VIAL 5000 UNITS SUB-Q ×2 (08:20→20:54)
--- NOTE | 2021-12-28 09:36 | PM.CNNEP ---
Assessment and Plan Assessment and plan (1) End-stage renal disease on hemodialysis: Code(s): N18.6 - End stage renal disease; Z99.2 - Dependence on renal dialysis Status: Acute Additional Plan End stage renal disease Acute on chronic systolic heart failure most likely Doubt aspiration pneumonia though needs to be considered, will defer to hospitalist team in reference to this Diabetes mellitus type 1 with nephropathy Hypertensive renal disease Anemia of chronic kidney disease Secondary hyperparathyroidism Status post CABG Plan: -dialysis with fluid removal today -not sure why she decompensated -diabetes control, gastroparesis controlled, -follow-up for ESRD and related needs History of Present Illness Reason for Consult Consult date: 12/28/21 Chief Complaint Chief complaint: hypoxia History of Present Illness Narrative: 46-year-old white female with a history of ESRD secondary to diabetes mellitus, hypertension. Status post CABG and episodes of CHF/volume overload. Admitted with nausea, vomiting, and diarrhea for a couple of days prior to admission. She also has right-sided discomfort. She has had episodes of nausea and vomiting with history of gastroparesis. CT of the abdomen and pelvis were unremarkable. The patient was not discharged yesterday after finding of low oxygen state and a bit of disorientation. Chest x-ray showed lung infiltrates. COVID testing negative. She could not use CPAP last night as he had nausea and vomiting. Currently feels miserable, short of breath, increased respiratory effort. There is some lower extremity swelling. She had last dialysis on Friday. She does not have a cough. No abdominal pain. No fevers or chills. Bouts of emesis but she is on not feel she is choking on her vomitus and aspirating Echocardiogram from last week ?1. Complete two-dimensional, color flow and Doppler transthoracic echocardiogram is performed. ? 2. Mild LV enlargement, moderate LVH, moderate global LV systolic dysfunction with mild spontaneous echo contrast, ejection fraction about 35-40%; diastolic dysfunction is present with elevated left atrial pressures. Mild left atrial enlargement.? Mild mitral annular calcification, mild mitral regurgitation.? Mild aortic valve calcification, mild aortic stenosis, valve area 1.8 cm2 by planimetry.? Normal tricuspid valve, [id number] tricuspid regurgitation, moderate pulmonary hypertension, RVSP 54 mmHg. Review of Systems Review of Systems: All systems reviewed & are unremarkable except as noted in HPI and below [facility] Past Medical History Medical History (Updated 12/27/21 @ 23:09 by Dena Rodney PA-C) Anasarca Cerebrovascular accident Small old lacunar infarct at the head of the right caudate nucleus. Chiari I malformation Chronic osteomyelitis Status post toe amputations Congestive heart failure Coronary artery disease Status post stent to the right coronary artery in August 2020. End-stage renal disease on hemodialysis On dialysis since June 2019. Erythropoietin deficiency anemia Esophagitis determined by endoscopy (12/2019) Gastroparesis due to DM Hyperlipidemia Renal osteodystrophy Surgical History Surgical History (Updated 12/27/21 @ 22:59 by Dena Rodney PA-C) Amputation of toe Two on the left AV fistula Left forearm History of section, classical X2 History of coronary artery stent placement History of laparoscopic cholecystectomy (03/15/21) History of myringotomy History of repair of rotator cuff History of tonsillectomy and adenoidectomy History of tubal ligation Hx of myringotomy Status post lateral meniscus repair Family History Family History Other Adopted Social History Social History (Updated 12/27/21 @ 23:01 by Dena Rodney PA-C) Social History: She has 2 children and she lives with her of 28 years. She i
[2021-12-28 12:16] LABS: Glucose Point of Care 186 mg/dl (65-105)
[2021-12-28 13:41] LABS: Glucose Point of Care 205 mg/dl (65-105)
[2021-12-28 17:41] LABS: Glucose Point of Care 110 mg/dl (65-105)
[2021-12-28 18:01] LABS: Glucose Point of Care 118 mg/dl (65-105)
[2021-12-28 20:14] LABS: Glucose Point of Care 173 mg/dl (65-105)
[2021-12-28] MEDS: MELATONIN 5 MG TABLET PO (20:55)
[2021-12-29] VITALS (19 sets, daily range): BP systolic 104–161; BP diastolic 52–68; PULSE 67–84; RESP 16–18; TEMP 36.4–36.9; O2SAT 97–100
[2021-12-29] MEDS: ONDANSETRON INJ 4 MG/2 ML VIAL IV PUSH ×2 (04:58→09:33)
[2021-12-29 05:07] LABS: Basophils Percent Auto 0.4 % (0.2-1.2); Eosinophils Absolute Auto 0.1 K/mm3 (0-0.3); Eosinophils Percent Auto 1.2 % (0-4.4); Hematocrit 33.3 % (37.0-47.0); Hemoglobin 10.4 g/dL (12.0-15.0); Immature Granulocyte Absolute 0.02 K/mm3 (0.00-0.031); Immature Granulocyte Percent A 0.3 % (0-0.5); Lymphocytes Absolute Auto 1.37 K/mm3 (0.9-3.2); Mean Corpuscular HGB Conc 31.2 g/dl (32-36); Mean Corpuscular Hemoglobin 32.5 pg (26-34); Mean Corpuscular Volume 104.1 fl (80-100); Mean Platelet Volume 10.4 fl (7.4-10.4); Monocytes Absolute Auto 0.5 K/mm3 (0.1-0.6); Monocytes Percent Auto 6.2 % (2.6-8.5); Neutrophils Absolute Auto 5.3 K/mm3 (1.3-6.7); Neutrophils Percent Auto 72.9 % (45.5-73.1); Nucleated Red Blood Cells Perc 0.3 % (0.0-0.2); Platelet Count Result 168 k/mm3 (150-375); White Blood Count 7.2 K/mm3 (4.5-10.0)
[2021-12-29 05:50] LABS: Alanine Aminotransferase 32 U/L (6-35); Albumin Level 3.8 g/dL (3.5-5.1); Alkaline Phosphatase 207 U/L (38-126); Anion Gap 7 mmol/L (8-16); Aspartate Amino Transferase 30 U/L (14-36); Blood Urea Nitrogen 24 mg/dL (7-17); Carbon Dioxide 36 mmol/L (22-30); Chloride 93 mmol/L (98-107); Estimated CRCL calculation 16 ml/min; Estimated Glomerular Filt Rate 14; Glucose 135 mg/dL (65-110); Magnesium 2.1 mg/dL (1.6-2.3); Potassium 3.8 mmol/L (3.4-5.0); Sodium 136 mmol/L (137-145)
[2021-12-29 08:02] LABS: Glucose Point of Care 170 mg/dl (65-105)
--- NOTE | 2021-12-29 09:21 | PCOTNOTE ---
Attempted OT evaluation, patient declined at this time reporting feeling to sick . Will follow, RN aware.
--- NOTE | 2021-12-29 09:41 | PCPTNOTE ---
Attempted PT evaluation, patient declined at this time reporting feeling to sick . Will follow, RN aware.
[2021-12-29 09:55] LABS: CRP 1.4 mg/dL (<1.0)
--- NOTE | 2021-12-29 10:30 | PM.PNNEP ---
Progress Note: A&P Assessment and Plan (1) End-stage renal disease on hemodialysis: Code(s): N18.6 - End stage renal disease; Z99.2 - Dependence on renal dialysis Status: Chronic Assessment and Plan: HD yesterday and continue M/W/F schedule follow electrolytes, volume status, and clearance (2) Viral gastroenteritis: Code(s): A08.4 - Viral intestinal infection, unspecified Status: Acute Assessment and Plan: history seems consistent with viral gastroenteritis. nausea and vomiting are mildly improved although the patient was having episodes of emesis this morning admission CT scan of abdomen/pelvis noted continue scheduled anti-emetics continue supportive therapy (3) Hypertension: Qualifiers: Hypertension type: unspecified Qualified Code(s): I10 - Essential (primary) hypertension Code(s): I10 - Essential (primary) hypertension Status: Chronic Assessment and Plan: reasonable control suspect with #2, may not be keeping all BP medications down. follow trend of hemodynamics (4) Anemia: Code(s): D64.9 - Anemia, unspecified Status: Chronic Assessment and Plan: at goal for ESRD Epogen with HD follow trend of H/H (5) Insulin dependent diabetes mellitus: Status: Acute Assessment and Plan: follow accuchecks on SSI Will continue to follow. Subjective Date/time seen: 12/29/21 10:30 Chart reviewed - covering for Dr. Forbes; tolerated hemodialysis treatment yesterday without any problems; breathing seems stable if not better; still has some on/off nausea earlier this morning; no acute distress voiced at the time of my visit. Exam Narrative: General: WD/WN female in NAD Heart: normal S1 and S2; no rub Lungs: decreased at bases Abdomen: soft, mild TTP, positive bowel sounds Extremities: no cyanosis or clubbing; no edema Skin: warm and dry Objective Data Vital Signs Vital Signs: Vital Signs Temp Pulse Resp BP Pulse Ox O2 Del Method O2 Flow Rate 12/29/21 10:00 78 12/29/21 08:00 75 12/29/21 08:00 36.6 C 80 18 156/65 H 100 12/29/21 07:31 98 Nasal Cannula 1 12/29/21 06:00 77 12/29/21 04:00 98 Nasal Cannula 2 12/29/21 04:00 73 12/29/21 03:47 36.6 C 72 16 137/68 98 07/02/22 02:00 67 12/29/21 00:00 100 Nasal Cannula 2 12/29/21 00:00 36.4 C L 71 16 135/66 100 12/29/21 00:00 68 12/28/21 22:00 65 12/28/21 20:00 100 Nasal Cannula 2 12/28/21 20:00 76 12/28/21 19:13 36.9 C 78 18 144/62 H 100 12/28/21 17:30 36.6 C 76 20 149/61 H 94 12/28/21 16:00 68 12/28/21 14:00 74 12/28/21 17:10 36.8 C 78 18 152/84 H 12/28/21 17:02 75 152/82 H 12/28/21 16:40 78 154/77 H 12/28/21 16:20 75 157/78 H 12/28/21 16:00 75 143/75 H 12/28/21 15:40 75 146/76 H 12/28/21 15:20 75 146/73 H 12/28/21 15:00 73 146/71 H 12/28/21 14:40 76 149/76 H 12/28/21 14:20 73 145/72 H 12/28/21 14:00 101 H 145/81 H 12/28/21 13:40 102 H 153/83 H Intake/Output Intake/Output: Intake & Output 12/26/21 12/27/21 12/28/21 12/29/21 23:59 23:59 23:59 23:59 Intake Total 500 300 500 Output Total 500 4150 Balance 0 -3850 500 Meds/Results Medications: Active Medications Generic Name Dose Route Start Last Admin Trade Name Freq PRN Reason Stop Dose Admin Acetaminophen 500 mg 12/28/21 22:33 Acetaminophen 500 Mg Tablet PO Q6H PRN Pain Rated 1-3 Aspirin 81 mg 12/29/21 09:00 12/29/21 11:05 Aspirin 81 Mg Enteric Tablet PO Not Given DAILY [facility] Atorvastatin Calcium 40 mg 12/29/21 09:00 12/29/21 11:05 Atorvastatin 40 Mg Tablet PO Not Given DAILY J[facility]ON Calcitriol 0.25 mcg 12/29/21 09:00 12/29/21 11:05 Calcitriol 0.25 Mcg Capsule PO Not Given
--- NOTE | 2021-12-29 10:30 | P.PNNP_ITS ---
Progress Note: A&P Assessment and Plan (1) End-stage renal disease on hemodialysis: Code(s): N18.6 - End stage renal disease; Z99.2 - Dependence on renal dialysis Status: Chronic Assessment and Plan: * HD yesterday and continue // schedule * follow electrolytes, volume status, and clearance (2) Viral gastroenteritis: Code(s): A08.4 - Viral intestinal infection, unspecified Status: Acute Assessment and Plan: * history seems consistent with viral gastroenteritis. * nausea and vomiting are mildly improved although the patient was having episodes of emesis this morning * admission CT scan of abdomen/pelvis noted * continue scheduled anti-emetics * continue supportive therapy (3) Hypertension: Qualifiers: Hypertension type: unspecified Qualified Code(s): I10 - Essential (primary) hypertension Code(s): I10 - Essential (primary) hypertension Status: Chronic Assessment and Plan: * reasonable control * suspect with #2, may not be keeping all BP medications down. * follow trend of hemodynamics (4) Anemia: Code(s): D64.9 - Anemia, unspecified Status: Chronic Assessment and Plan: * at goal for ESRD * Epogen with HD * follow trend of H/H (5) Insulin dependent diabetes mellitus: Status: Acute Assessment and Plan: * follow accuchecks * on SSI Will continue to follow. Subjective Date/time seen: 12/29/21 10:30 Chart reviewed - covering for Dr. Forbes; tolerated hemodialysis treatment yesterday without any problems; breathing seems stable if not better; still has some on/off nausea earlier this morning; no acute distress voiced at the time of my visit. Exam Narrative: General: WD/WN female in NAD Heart: normal S1 and S2; no rub Lungs: decreased at bases Abdomen: soft, mild TTP, positive bowel sounds Extremities: no cyanosis or clubbing; no edema Skin: warm and dry Objective Data Vital Signs Vital Signs: Vital Signs Temp Pulse Resp BP Pulse Ox O2 Del Method O2 Flow Rate 12/29/21 10:00 78 12/29/21 08:00 75 12/29/21 08:00 36.6 C 80 18 156/65 H 100 12/29/21 07:31 98 Nasal Cannula 1 12/29/21 06:00 77 12/29/21 04:00 98 Nasal Cannula 2 12/29/21 04:00 73 12/29/21 03:47 36.6 C 72 16 137/68 98 12/29/21 02:00 67 12/29/21 00:00 100 Nasal Cannula 2 12/29/21 00:00 36.4 C L 71 16 135/66 100 12/29/21 00:00 68 12/28/21 22:00 65 12/28/21 20:00 100 Nasal Cannula 2 12/28/21 20:00 76 12/28/21 19:13 36.9 C 78 18 144/62 H 100 12/28/21 17:30 36.6 C 76 20 149/61 H 94 12/28/21 16:00 68 12/28/21 14:00 74 12/28/21 17:10 36.8 C 78 18 152/84 H 12/28/21 17:02 75 152/82 H 12/28/21 16:40 78 154/77 H 12/28/21 16:20 75 157/78 H 12/28/21 16:00 75 143/75 H 12/28/21 15:40 75 146/76 H 12/28/21 15:20 75 146/73 H 12/28/21 15:00 73 146/71 H 12/28/21 14:40 76 149/76 H 12/28/21 14:20 73 145/72 H 12/28/21
--- NOTE | 2021-12-29 11:09 | PC.NURSE ---
notified manohar EMMANUEL of patient being nausea and unable to take AM meds.
[2021-12-29] MEDS: HEPARIN SODIUM 5,000 UNITS/ML VIAL 5000 UNITS SUB-Q ×2 (11:30→21:45)
[2021-12-29] MEDS: METOCLOPRAMIDE HCL 10 MG/10 ML SOLN UDC PO ×3 (11:30→21:45)
[2021-12-29 11:59] LABS: Glucose Point of Care 175 mg/dl (65-105)
--- NOTE | 2021-12-29 12:05 | PM.IMPN ---
Progress Note: A&P Assessment and Plan (1) Viral gastroenteritis: Code(s): A08.4 - Viral intestinal infection, unspecified Status: Acute Assessment and Plan: History seems consistent with viral gastroenteritis. nausea and vomiting and mildly improved although the patient was having episodes of emesis this morning Imodium was added to the patient's medication list for diarrhea scheduled Reglan, patient reports Zofran no longer effective. (2) Dehydration: Code(s): E86.0 - Dehydration Status: Acute Assessment and Plan: Patient received 500 mL of normal saline in the emergency department and half a L the 1st night Patient will receive dialysis on 12/28/2021 (3) Hypoxia: Code(s): R09.02 - Hypoxemia Status: Acute Assessment and Plan: She has had this problems intermittently with positive ApneaLink. Imaging also shows bilateral infiltrates versus atelectasis, most likely atelectasis. Incentive spirometry ordered. CPAP ordered for tonight to see if she will tolerate that. She was encouraged to have outpatient follow-up NIURKA Pulmonary embolism is considered but seems less likely by history. stable (4) End-stage renal disease on hemodialysis: Code(s): N18.6 - End stage renal disease; Z99.2 - Dependence on renal dialysis Status: Acute Assessment and Plan: Dr. Forbes consulted for dialysis Patient receives dialysis on Friday, Friday and Friday. She reports compliance (5) Elevated troponin: Code(s): R77.8 - Other specified abnormalities of plasma proteins Status: Acute Assessment and Plan: Patient does not have any chest pain or shortness of breath at this time. Troponins may be elevated due to chronic medical comorbidities. Continue to monitor troponins, a troponins elevate consider consulting Cardiology (6) Insulin dependent diabetes mellitus: Status: Acute Assessment and Plan: Insulin Lispro sliding scale, Accu-checks qAc and HS HgbA1c on 12/17/2021 was 7.6 (7) Tobacco dependence: Code(s): F17.200 - Nicotine dependence, unspecified, uncomplicated Status: Chronic Assessment and Plan: Smoking cessation counseling given for 3 minutes, will add nicotine patch daily. Patient does not seem motivated to stop smoking. (8) Hypertension: Qualifiers: Hypertension type: unspecified Qualified Code(s): I10 - Essential (primary) hypertension Code(s): I10 - Essential (primary) hypertension Status: Chronic Assessment and Plan: Blood pressures were reviewed and they have been running in the 150s to 160 systolic. Antihypertensives will be reviewed and resumed as appropriate. (9) Physical debility: Code(s): R53.81 - Other malaise Status: Acute Assessment and Plan: Consult physical therapy and occupational therapy to eval and treat Subjective Date/time seen: 12/29/21 12:05 patient is alert and oriented x4 this morning. She received dialysis on 12/28/2021 with good results. Patient remains nauseated. She remains NPO. Transition Zofran p.r.n. to Reglan scheduled q.6 hours. Will attempt to advance diet as tolerated. Patient denies any additional symptoms rated she denies any chest pain, shortness breast, diarrhea today or complaints of constipation. Continue with supportive care. Review of Systems Review of Systems: All systems reviewed & are unremarkable except as noted in HPI and below Exam Narrative: General: Chronically ill-appearing female Sitting on the edge of the bed Episodes of emesis Weight: 70.5 kg. BMI: 25.9. HEENT: PERRL, EOMI. Conjunctivae anicteric. Mucous membranes are moist Neck: Supple. No jugular venous distension. Respiratory: Respirations are nonlabored. Lung sounds a diminished at the bases, otherwise clear to auscultation. Cardiovascular: Regular rate and rhythm. Gastrointestinal: Abdomen is soft, nontend
[2021-12-29 16:12] LABS: Glucose Point of Care 224 mg/dl (65-105)
[2021-12-29] MEDS: SEVELAMER CARBONATE 800 MG TABLET PO (16:50)
[2021-12-29] MEDS: FUROSEMIDE 40 MG TABLET 120 MG PO (16:50)
[2021-12-29] MEDS: INSULIN ASPART (*BKC) 100 UNITS/ML SUB-Q (16:51)
[2021-12-29] MEDS: INSULIN ASPART (*BKC) 100 UNITS/ML 7 UNITS SUB-Q (16:51)
[2021-12-29 20:52] LABS: Glucose Point of Care 290 mg/dl (65-105)
[2021-12-29] MEDS: METOPROLOL TARTRATE 12.5 MG TABLET PO (21:45)
--- NOTE | 2021-12-29 21:55 | PC.NURSE ---
Report called to Sisi WAYNE on .
[2021-12-29] MEDS: MELATONIN 5 MG TABLET PO (22:00)
--- NOTE | 2021-12-29 22:26 | PC.NURSE ---
This patient, Pamela Bhat, was transferred to [facility] on 12/29/21 at 2226. Personal belongings sent with patient. Report given to Sisi WAYNE. Appropriate documentation sent with patient.
[2021-12-29 22:36] LABS: Glucose Point of Care 187 mg/dl (65-105)
[2021-12-30 04:49] VITALS: BP 128/54; PULSE 72; RESP 18; TEMP 36.6; O2SAT 100
[2021-12-30] MEDS: METOCLOPRAMIDE HCL 10 MG/10 ML SOLN UDC PO ×2 (05:51→10:09)
[2021-12-30 06:04] LABS: Basophils Percent Auto 0.4 % (0.2-1.2); Eosinophils Absolute Auto 0.2 K/mm3 (0-0.3); Eosinophils Percent Auto 2.1 % (0-4.4); Hematocrit 35.2 % (37.0-47.0); Hemoglobin 11.6 g/dL (12.0-15.0); Immature Granulocyte Absolute 0.03 K/mm3 (0.00-0.031); Immature Granulocyte Percent A 0.4 % (0-0.5); Lymphocytes Absolute Auto 1.92 K/mm3 (0.9-3.2); Lymphocytes Percent Auto 27.2 % (18.3-44.2); Mean Corpuscular Hemoglobin 32.7 pg (26-34); Mean Corpuscular Volume 99.2 fl (80-100); Mean Platelet Volume 10.2 fl (7.4-10.4); Monocytes Absolute Auto 0.6 K/mm3 (0.1-0.6); Monocytes Percent Auto 8.2 % (2.6-8.5); Neutrophils Absolute Auto 4.4 K/mm3 (1.3-6.7); Neutrophils Percent Auto 61.7 % (45.5-73.1); Platelet Count Result 173 k/mm3 (150-375); Red Blood Count 3.55 M/mm3 (4.2-5.4); Red Cell Distribution Width 14.3 % (11.5-14.5); White Blood Count 7.1 K/mm3 (4.5-10.0)
[2021-12-30 06:43] LABS: Alanine Aminotransferase 25 U/L (6-35); Albumin Level 3.7 g/dL (3.5-5.1); Alkaline Phosphatase 193 U/L (38-126); Anion Gap 9 mmol/L (8-16); Aspartate Amino Transferase 24 U/L (14-36); Bilirubin,Total 0.8 mg/dL (0.2-1.3); Blood Urea Nitrogen 40 mg/dL (7-17); Calcium 8.2 mg/dL (8.4-10.2); Carbon Dioxide 33 mmol/L (22-30); Chloride 92 mmol/L (98-107); Estimated CRCL calculation 11 ml/min; Estimated Glomerular Filt Rate 9; Glucose 140 mg/dL (65-110); Potassium 3.4 mmol/L (3.4-5.0); Sodium 134 mmol/L (137-145)
--- NOTE | 2021-12-30 06:59 | PM.DS ---
DS: Admitting Diagnosis Discharge Date 12/30/2021 Admitting Diagnosis bile gastritis Dehydration Hypoxia ESRD on dialysis Tobacco dependence Diabetes mellitus type 1, insulin dependent DS: Discharge Diagnosis Discharge Diagnosis (1) Viral gastroenteritis: Code(s): A08.4 - Viral intestinal infection, unspecified Status: Acute Assessment and Plan: History seems consistent with viral gastroenteritis. nausea and vomiting and mildly improved although the patient was having episodes of emesis this morning Imodium was added to the patient's medication list for diarrhea scheduled Reglan, patient reports Zofran no longer effective. (2) Dehydration: Code(s): E86.0 - Dehydration Status: Acute Assessment and Plan: Patient received 500 mL of normal saline in the emergency department and half a L the 1st night Patient will receive dialysis on 12/28/2021 (3) Hypoxia: Code(s): R09.02 - Hypoxemia Status: Acute Assessment and Plan: She has had this problems intermittently with positive ApneaLink. Imaging also shows bilateral infiltrates versus atelectasis, most likely atelectasis. Incentive spirometry ordered. CPAP ordered for tonight to see if she will tolerate that. She was encouraged to have outpatient follow-up NIURKA Pulmonary embolism is considered but seems less likely by history. stable (4) End-stage renal disease on hemodialysis: Code(s): N18.6 - End stage renal disease; Z99.2 - Dependence on renal dialysis Status: Chronic Assessment and Plan: Dr. Forbes consulted for dialysis Patient receives dialysis on Friday, Friday and Friday. She reports compliance (5) Elevated troponin: Code(s): R77.8 - Other specified abnormalities of plasma proteins Status: Acute Assessment and Plan: Patient does not have any chest pain or shortness of breath at this time. Troponins may be elevated due to chronic medical comorbidities. Continue to monitor troponins, a troponins elevate consider consulting Cardiology (6) Insulin dependent diabetes mellitus: Status: Acute Assessment and Plan: Insulin Lispro sliding scale, Accu-checks qAc and HS HgbA1c on 12/17/2021 was 7.6 (7) Tobacco dependence: Code(s): F17.200 - Nicotine dependence, unspecified, uncomplicated Status: Chronic Assessment and Plan: Smoking cessation counseling given for 3 minutes, will add nicotine patch daily. Patient does not seem motivated to stop smoking. (8) Hypertension: Qualifiers: Hypertension type: unspecified Qualified Code(s): I10 - Essential (primary) hypertension Code(s): I10 - Essential (primary) hypertension Status: Chronic Assessment and Plan: Blood pressures were reviewed and they have been running in the 150s to 160 systolic. Antihypertensives will be reviewed and resumed as appropriate. (9) Physical debility: Code(s): R53.81 - Other malaise Status: Acute Assessment and Plan: Consult physical therapy and occupational therapy to eval and treat DS: Summary Hospital Course Reason for hospitalization: Viral gastritis Hospital Course: patient is a 46-year-old female with a past medical history of end-stage renal disease on hemodialysis, insulin-dependent diabetes, CAD, CVA with a small old lacunar infarct at the head of the right caudate nucleu, and CHF. Patient presented to [facility] for further evaluation of nausea, vomiting, and diarrhea. She reports intractable episodes of vomiting and diarrhea over the last 2 days in addition to diaphoresis and diffuse right-sided abdominal discomfort. Patient reports that she has been weak and decided to come into the emergency department for further evaluation. Upon further evaluation in the emergency department CT of the abdomen and pelvis was obtained which did not reveal acute findings. She
[2021-12-30 07:52] LABS: Glucose Point of Care 163 mg/dl (65-105)
[2021-12-30 08:00] VITALS: O2SAT 95
[2021-12-30] MEDS: INSULIN GLARGINE (*BKC) 100 UNITS/ML 15 UNITS SUB-Q (08:00)
[2021-12-30] MEDS: INSULIN ASPART (*BKC) 100 UNITS/ML 7 UNITS SUB-Q ×2 (08:00→11:55)
[2021-12-30] MEDS: HEPARIN SODIUM 5,000 UNITS/ML VIAL 5000 UNITS SUB-Q (08:03)
[2021-12-30 08:06] VITALS: PULSE 81
[2021-12-30] MEDS: SEVELAMER CARBONATE 800 MG TABLET PO (08:06)
[2021-12-30] MEDS: METOPROLOL TARTRATE 12.5 MG TABLET PO (08:06)
[2021-12-30] MEDS: CHOLECALCIFEROL 1,000 UNITS TABLET 2000 UNITS PO (08:07)
[2021-12-30] MEDS: CLOPIDOGREL BISULFATE 75 MG TABLET PO (08:07)
[2021-12-30] MEDS: ASPIRIN 81 MG ENTERIC TABLET PO (08:07)
[2021-12-30] MEDS: calcitrioL 0.25 MCG CAPSULE PO (08:08)
[2021-12-30] MEDS: PANTOPRAZOLE 40 MG TABLET PO (08:08)
[2021-12-30] MEDS: lisinopriL 20 MG TABLET PO (08:08)
[2021-12-30] MEDS: THERAPEUTIC MULTIVITAMINS/MINERALS TAB (*BKC) 1 TABLET PO (08:08)
[2021-12-30] MEDS: ATORVASTATIN 40 MG TABLET PO (08:08)
[2021-12-30] MEDS: FUROSEMIDE 40 MG TABLET 120 MG PO (08:08)
--- NOTE | 2021-12-30 09:15 | PCPTNOTE ---
Attempted PT evaluation, Deny refused. Per patient, she is independent within the room and took a shower independently. Will Follow.
[2021-12-30 11:17] VITALS: BP 122/79; PULSE 72; RESP 16; TEMP 36.6; O2SAT 99
[2021-12-30] MEDS: INSULIN ASPART (*BKC) 100 UNITS/ML SUB-Q (11:55)
[2021-12-30 12:09] LABS: Glucose Point of Care 285 mg/dl (65-105)
== END 2021-12-30 13:15 | disposition home or self-care (01) | DRG 391 ==
LOC: ANHED 15:37 → ANHIMU 21:39 → ANH3MED 12-30 07:01 → ANHIMU 01-01 14:48
PROVIDERS: Physician Assistant; Admitting Provider Internal Medicine; Emergency Provider Emergency Medicine; PCP Internal Medicine; Visit Provider Nurse Practitioner Family
DX: A08.4 Viral intestinal infection, unspecified (principal); I50.43 Acute on chronic combined systolic (congestive) and diastolic (congestive) heart failure; N18.6 End stage renal disease; I13.2 Hypertensive heart and chronic kidney disease with heart failure and with stage 5 chronic kidney disease, or end stage renal disease; N25.81 Secondary hyperparathyroidism of renal origin; E86.0 Dehydration; R09.02 Hypoxemia; R77.8 Other specified abnormalities of plasma proteins; E10.22 Type 1 diabetes mellitus with diabetic chronic kidney disease; F17.210 Nicotine dependence, cigarettes, uncomplicated; Z99.2 Dependence on renal dialysis; D63.1 Anemia in chronic kidney disease; E78.5 Hyperlipidemia, unspecified; Z86.73 Personal history of transient ischemic attack (TIA), and cerebral infarction without residual deficits; I25.10 Atherosclerotic heart disease of native coronary artery without angina pectoris; Z20.822 Contact with and (suspected) exposure to COVID-19; Z95.5 Presence of coronary angioplasty implant and graft; Z79.899 Other long term (current) drug therapy; Z79.4 Long term (current) use of insulin; Z79.82 Long term (current) use of aspirin; Z95.1 Presence of aortocoronary bypass graft
CPT/HCPCS: 36415; 36600; 71045; 71046; 74177; 80048; 80053; 82805; 82948; 83690; 83735; 83880; 84100; 84443; 84484; 85025; 85027; 86140; 93005; 96361; 96374; 96375; 96376; 97165; 99285; A9270; C9803; G0257; J1644; J1815; J2405; J7030; J7040; Q9967; U0003; U0005

== ENCOUNTER 2022-01-09 08:33 | Outpatient (CLI) | payer OTHER, MEDICARE, MEDICAID, SELFPAY ==
--- NOTE | 2022-02-04 19:07 | WPDSLEEPSTUD ---
Sleep Study Date of Study: 01/09/22 Ordering Provider: Chi Ellis MD Interpreting Physician: Sadia Domínguez DO Sleep Study Type: Split Polysomnogram Height: 1.68 m Weight: 73.936 kg Body Mass Index: 26.3 Neck Circumference (inches): 16 [place]: 12 Reason for Sleep Study Multiple nighttime awakenings Sleep History The patient is a 46 year old female with HTN, diabetes, ESRD on HD, CAD with CABG, congestive heart failure with reduced EF, pulmonary hypertension, tobacco use disorder and history of stroke that had a sleep study ordered by her websphere process server developer for evaluation of NOE. the patient occasionally awakens from sleep short of breath. She occasionally awakens at night with heartburn, belching or cough. She frequently snores. She frequently has trouble sleeping when she has a cold. Habits: The patient currently smokes 1/2 ppd for the past 28 years. She denies caffeine, alcohol and recreational drug use. *The patient did not finish filling out the sleep intake forms.* [facility] Past Medical History Medical History Anasarca Cerebrovascular accident Small old lacunar infarct at the head of the right caudate nucleus. Chiari I malformation Chronic osteomyelitis Status post toe amputations Congestive heart failure Coronary artery disease Status post stent to the right coronary artery in August 2020. End-stage renal disease on hemodialysis On dialysis since June 2019. Erythropoietin deficiency anemia Esophagitis determined by endoscopy (12/2019) Gastroparesis due to DM Hyperlipidemia Renal osteodystrophy Surgical History Surgical History Amputation of toe Two on the left AV fistula Left forearm History of section, classical X2 History of coronary artery stent placement History of laparoscopic cholecystectomy (03/15/21) History of myringotomy History of repair of rotator cuff History of tonsillectomy and adenoidectomy History of tubal ligation Hx of myringotomy Status post lateral meniscus repair Family History Family History Other Adopted Social History Social History Social History: She has 2 children and she lives with her of 28 years. She is on disability. She smoked up to a pack of cigarettes a day since the age of 16 but now smokes about a 4th a pack a day. She denies alcohol and illicit substance abuse. Surrogate decision maker: Diana Bhat, spouse. Code status: Full code. Smoking packs per day: 1 Smoking cigarettes per day: 20.0 Years smoked: 28 Smoking pack-years: 28.00 Smoking status: Current every day smoker Second hand tobacco smoke exposure: Yes Additional smoking assessment comments: Smoked 1 pack a day since 16. Currently at 0.25 pack per day Alcohol intake: never Drinks per week: 0 Substance use: never Substance use type: does not use Gender identity (if verbalized by the patient): Female Sexual Orientation (if Verbalized by the Patient): Straight or Heterosexual Spiritual care concerns: No Agree to blood products: Yes Medications Home Medications Medication Instructions Recorded Confirmed Type clopidogrel 75 mg tablet (Plavix) 75 mg PO DAILY 12/01/20 12/27/21 History lisinopril 20 mg tablet 20 mg PO DAILY 12/01/20 12/27/21 History aspirin 81 mg tablet,delayed 81 mg PO DAILY 12/20/20 12/27/21 History release metoclopramide HCl 5 mg tablet 5 mg PO TID 12/20/20 12/27/21 History furosemide 80 mg tablet 120 mg PO BID 03/13/21 12/27/21 History multivitamin-iron 9 mg-folic acid 1 tablet PO DAILY 03/13/21 12/27/21 History 400 mcg-calcium and minerals tablet (Thera-M) sevelamer carbonate 800 mg tablet 800 mg PO TIDWM 03/13/21 12/27/21 History atorvastatin 40 mg tablet 40
[2022-02-05 03:54] VITALS: BMI 26.3
== END 2022-01-10 07:07 | disposition home or self-care (01) ==
LOC: ANHCSM 08:35
PROVIDERS: PCP Internal Medicine; Visit Provider Internal Medicine Pulmonary Disease
DX: G47.10 Hypersomnia, unspecified (principal); G47.33 Obstructive sleep apnea (adult) (pediatric); G47.31 Primary central sleep apnea
CPT/HCPCS: 95811

== ENCOUNTER 2022-02-25 19:38 | Inpatient (IN) | payer OTHER, MEDICARE, MEDICAID, SELFPAY ==
--- NOTE | ~2022-02-25 | US_ITS ---
EXAMINATION: US venous doppler LE RT DATE: 02/26/2022 09:08 INDICATION: Right lower limb pain and swelling. TECHNIQUE: Grayscale ultrasound images without and with compression and Doppler ultrasound images of the right lower extremity veins were obtained. COMPARISON: None. FINDINGS: The visualized portions of right common femoral vein, profunda (deep) femoral vein, femoral vein, pop liteal vein, peroneal veins, posterior tibial veins, and greater saphenous vein outflow are patent. IMPRESSION: 1. No deep venous thrombosis. Reviewed, dictated and finalized at location A.
[2022-02-25 19:41] VITALS: BP 152/59; PULSE 97; RESP 20; TEMP 37.7; O2SAT 100
[2022-02-25 23:12] LABS: Basophils Percent Auto 0.3 % (0.2-1.2); Eosinophils Absolute Auto 0.1 K/mm3 (0-0.3); Eosinophils Percent Auto 1.1 % (0-4.4); Hematocrit 32.4 % (37.0-47.0); Hemoglobin 10.6 g/dL (12.0-15.0); Immature Granulocyte Absolute 0.07 K/mm3 (0.00-0.031); Immature Granulocyte Percent A 0.6 % (0-0.5); Lymphocytes Absolute Auto 1.51 K/mm3 (0.9-3.2); Lymphocytes Percent Auto 13.8 % (18.3-44.2); Mean Corpuscular HGB Conc 32.7 g/dl (32-36); Mean Corpuscular Hemoglobin 32.2 pg (26-34); Mean Corpuscular Volume 98.5 fl (80-100); Mean Platelet Volume 10.5 fl (7.4-10.4); Monocytes Absolute Auto 0.6 K/mm3 (0.1-0.6); Monocytes Percent Auto 5.9 % (2.6-8.5); Neutrophils Absolute Auto 8.6 K/mm3 (1.3-6.7); Neutrophils Percent Auto 78.3 % (45.5-73.1); Platelet Count Result 229 k/mm3 (150-375); Red Blood Count 3.29 M/mm3 (4.2-5.4); Red Cell Distribution Width 14.8 % (11.5-14.5); White Blood Count 10.9 K/mm3 (4.5-10.0)
[2022-02-25 23:23] LABS: INR 1.2; Partial Thromboplastin Time 36.5 SECONDS (22.3-36.8); Prothrombin Time 14.6 Seconds (11.1-14.7)
[2022-02-25 23:26] LABS: Anion Gap 9 mmol/L (8-16); Blood Urea Nitrogen 26 mg/dL (7-17); Calcium 9.2 mg/dL (8.4-10.2); Carbon Dioxide 33 mmol/L (22-30); Chloride 85 mmol/L (98-107); Estimated CRCL calculation 17 ml/min; Estimated Glomerular Filt Rate 14; Glucose 482 mg/dL (65-110); Potassium 4.4 mmol/L (3.4-5.0); Sodium 127 mmol/L (137-145)
[2022-02-25 23:39] LABS: Erythrocyte Sedimentation Rate 109 mm/hr (0-20)
[2022-02-25 23:51] LABS: CRP 8.7 mg/dL (<1.0)
[2022-02-26] VITALS (9 sets, daily range): BP systolic 116–147; BP diastolic 52–87; PULSE 71–84; RESP 18; TEMP 36.1–36.6; O2SAT 93–100; BMI 22.0
--- NOTE | 2022-02-26 00:04 | ED.GENADULT ---
HPI - General Adult General Chief complaint: Extremity Injury, Lower Stated complaint: Right leg pain/swelling/redness Time Seen by Provider: 02/25/22 23:36 History of Present Illness HPI narrative: Is a 46-year-old female who presents the emergency department with chief complaint of right lower extremity pain. Patient reports that she started having redness and swelling in her right lower extremity patient states she has history of cellulitis in the left lower extremity this is very similar to it. The patient reports he has history of diabetes and also end-stage renal disease and is on dialysis Friday. Patient reports she completed her normal run of dialysis today and then noticed that her redness in her leg was getting worse she talk to her provider and they recommended that she come to the emergency department for evaluation. The patient reports no prior history of DVT. Related Data Home Medications Medication Instructions Recorded Confirmed aspirin 81 mg tablet,delayed 81 mg PO DAILY 12/20/20 12/27/21 release sevelamer carbonate 800 mg tablet 800 mg PO TIDWM 03/13/21 12/27/21 pantoprazole 40 mg tablet,delayed 40 mg PO DAILY 09/03/21 12/27/21 release carvedilol 6.25 mg tablet 6.25 mg PO Q12H 02/20/22 sevelamer carbonate 800 mg tablet 800 mg PO TID 02/20/22 ticagrelor 90 mg tablet 90 mg PO Q12H 02/20/22 vitamin B complex-vitamin C-folic 1 tablet PO DAILY 02/20/22 acid 0.8 mg tablet (Renal Vitamin) Allergies Allergy/AdvReac Type Severity Reaction Status Date / Time No Known Drug Allergies Allergy Unknown Verified 02/25/22 19:45 Review of Systems Review of Systems: A 10 system review of systems was completed on the patient and is negative except for what is stated in the HPI. Nursing and ancillary documentation was reviewed. [facility] Past Medical History Medical History Anasarca Cerebrovascular accident Small old lacunar infarct at the head of the right caudate nucleus. Chiari I malformation Chronic osteomyelitis Status post toe amputations Congestive heart failure Coronary artery disease Status post stent to the right coronary artery in August 2020. End-stage renal disease on hemodialysis On dialysis since June 2019. Erythropoietin deficiency anemia Esophagitis determined by endoscopy (12/2019) Gastroparesis due to DM Hyperlipidemia Renal osteodystrophy Surgical History Surgical History Amputation of toe Two on the left AV fistula Left forearm History of section, classical X2 History of coronary artery stent placement History of laparoscopic cholecystectomy (03/15/21) History of myringotomy History of repair of rotator cuff History of tonsillectomy and adenoidectomy History of tubal ligation Hx of myringotomy Status post lateral meniscus repair Family History Family History Other Adopted Social History Social History Social History: She has 2 children and she lives with her of 28 years. She is on disability. She smoked up to a pack of cigarettes a day since the age of 16 but now smokes about a 4th a pack a day. She denies alcohol and illicit substance abuse. Surrogate decision maker: Diana Bhat, spouse. Code status: Full code. Smoking packs per day: 1 Smoking cigarettes per day: 20.0 Years smoked: 28 Smoking pack-years: 28.00 Smoking status: Current every day smoker Second hand tobacco smoke exposure: Yes Additional smoking assessment comments: Smoked 1 pack a day since 16. Currently at 0.25 pack per day Alcohol intake: never Drinks per week: 0 Substance use: never Substance use type: does not use Gender identity (if verbalized by the patient): Female Sexual O
--- NOTE | 2022-02-26 00:40 | PM.IMHP ---
H&P: HPI History of Present Illness Date/Time: 02/26/22 00:40 Chief Complaint: right leg swelling and redness Narrative: This is a 46-year-old female with past medical history significant for diabetes mellitus, chronic osteomyelitis, congestive heart failure, coronary artery disease, end-stage renal disease on hemodialysis, gastroparesis. Patient presents to the emergency room due to right lower extremity redness and swelling of 3 days duration patient denies any fevers, rigors, chills, nausea, vomiting, diarrhea, abdominal pain, cough, sputum production she has been in her usual state of health prior to these. PRELIMINARY WORKUP WAS SIGNIFICANT FOR CREATININE 3.4, SODIUM 127, [place] [id number]. PATIENT HAS BEEN ADMITTED FOR FURTHER EVALUATION MANAGEMENT AND TREATMENT. Review of Systems Review of Systems: Right lower extremity redness and swelling Constitutional: Constitutional: Denies chills, Denies fever(s), Denies malaise and Denies weakness Eyes: Eyes: Denies change in vision ENT: Denies dysphagia, Denies vertigo, Denies dizziness and Denies odynophagia Cardiovascular: Cardiovascular: Denies chest pain, Denies syncope, Denies irregular heart rhythm, Denies lightheadedness, Denies palpitations and Denies dyspnea on exertion Respiratory: Respiratory: Denies chest congestion, Denies cough, Denies excessive phlegm production, Denies pain on inspiration, Denies dyspnea and Denies dyspnea on exertion Gastrointestinal: Gastrointestinal: Denies abdominal pain, Denies dyspepsia, Denies heartburn, Denies diarrhea, Denies nausea and Denies vomiting Genitourinary: Genitourinary: Denies dysuria Musculoskeletal: Comments: right lower extremity swelling Integumentary/Breasts: Skin/Breast: Reports erythema ( right lower extremity) Neurologic: Denies vertigo, Denies dizziness, Denies focal weakness, Denies radicular pain and Denies Sensory deficit (Neuro) Psychiatric: Psychiatric: Reports no additional psychiatric complaints and Reports as per HPI Endocrine: Endocrine: Denies cold intolerance, Denies flushing, Denies heat intolerance, Denies polyphagia, Denies polydipsia and Denies palpitations Hematologic/Lymphatic: Hematologic/Lymphatic: Reports no additional hematologic/lymphatic complaints and Reports as per HPI Allergic/Immunologic: Allergic/Immunologic: Reports no additional allergic/immunologic complaints and Reports as per HPI [facility] Past Medical History Medical History Anasarca Cerebrovascular accident Small old lacunar infarct at the head of the right caudate nucleus. Chiari I malformation Chronic osteomyelitis Status post toe amputations Congestive heart failure Coronary artery disease Status post stent to the right coronary artery in August 2020. End-stage renal disease on hemodialysis On dialysis since June 2019. Erythropoietin deficiency anemia Esophagitis determined by endoscopy (12/2019) Gastroparesis due to DM Hyperlipidemia Renal osteodystrophy Surgical History Surgical History Amputation of toe Two on the left AV fistula Left forearm History of section, classical X2 History of coronary artery stent placement History of laparoscopic cholecystectomy (03/15/21) History of myringotomy History of repair of rotator cuff History of tonsillectomy and adenoidectomy History of tubal ligation Hx of myringotomy Status post lateral meniscus repair Family History Family History Other Adopted Social History Social History Social History: She has 2 children and she lives with her of 28 years. She is on disability. She smoked up to a pack of cigarettes a day since the age of 16 but now smokes about a 4th a pack a day. She denies alcohol and illicit jean
--- NOTE | 2022-02-26 01:37 | ADMGEN ---
This patient, Pamela Bhat, was admitted to 2 Medical Room 244-. Patient/family oriented to hospital policies and general routines including ID bracelet, bed and alarms, visiting hours, pain management, procedures, bathroom and other care routines, personal items, smoking policy, room service/diet, and visiting hours. Information on how to activate the Rapid Response Team has been discussed. Patient/Family are encouraged to report perceived risks to care and to ask questions if they do not understand what they are told or what they should do.
--- NOTE | 2022-02-26 01:38 | PC.NURSE ---
Pt received from ED with BG of 482, insulin not administered. Per ED lab did not notify staff of critical result. 10u human insulin administered at this time.
[2022-02-26] MEDS: INSULIN HUMAN REGULAR (*BKC) 100 UNITS/ML 10 UNITS SUB-Q (01:45)
[2022-02-26] MEDS: CLINDAMYCIN 900 MG/D5W 50 ML 900 MG/50 ML PIGGYBACK 50 MG IVPB ×4 (01:46→23:06)
[2022-02-26 01:51] LABS: Glucose Point of Care 410 mg/dl (65-105)
[2022-02-26 06:35] LABS: Glucose Point of Care 189 mg/dl (65-105)
[2022-02-26 08:21] LABS: Glucose Point of Care 111 mg/dl (65-105)
--- NOTE | 2022-02-26 09:04 | PC.NURSE ---
Pt went down for US at 08:50
[2022-02-26 09:17] LABS: Glucose Point of Care 153 mg/dl (65-105)
[2022-02-26] MEDS: PANTOPRAZOLE 40 MG TABLET PO (09:20)
[2022-02-26] MEDS: VITAMIN B CMPLX/VIT C/FOLIC AC 1 CAPSULE 1 CAP PO (09:20)
[2022-02-26] MEDS: SEVELAMER CARBONATE 800 MG TABLET PO ×3 (09:21→17:12)
[2022-02-26] MEDS: calcitrioL 0.25 MCG CAPSULE PO (09:22)
[2022-02-26] MEDS: ASPIRIN 81 MG ENTERIC TABLET PO (09:22)
[2022-02-26] MEDS: carvediloL 6.25 MG TABLET PO ×2 (09:23→21:01)
[2022-02-26] MEDS: INSULIN HUMAN NPH (*BKC) 100 UNITS/ML 9 UNITS SUB-Q (09:24)
[2022-02-26] MEDS: TICAGRELOR 90 MG TABLET PO ×2 (09:30→21:01)
[2022-02-26] MEDS: HYDROcodone/acetaminophen (*CRX) 5-325 MG TABLET 1 TAB PO ×2 (09:45→18:54)
[2022-02-26 12:04] LABS: Glucose Point of Care 225 mg/dl (65-105)
[2022-02-26] MEDS: INSULIN ASPART (*BKC) 100 UNITS/ML 6 UNITS SUB-Q (12:11)
[2022-02-26 17:19] LABS: Glucose Point of Care 84 mg/dl (65-105)
[2022-02-26] MEDS: INSULIN HUMAN NPH (*BKC) 100 UNITS/ML SUB-Q (17:52)
--- NOTE | 2022-02-26 19:58 | PC.NURSE ---
On 02/26/22, the License pending RN Marta Rodriguez, provided care and completed [facility] documentation on this patient. I have reviewed her documentation and agree with the findings.
[2022-02-26] MEDS: INSULIN GLARGINE (*BKC) 100 UNITS/ML 18 UNITS SUB-Q (20:59)
[2022-02-26 21:02] LABS: Glucose Point of Care 228 mg/dl (65-105)
[2022-02-27] VITALS (13 sets, daily range): BP systolic 114–149; BP diastolic 40–85; PULSE 68–77; RESP 16–18; TEMP 36–37; O2SAT 94–99
[2022-02-27 05:39] LABS: Basophils Percent Auto 0.3 % (0.2-1.2); Eosinophils Absolute Auto 0.1 K/mm3 (0-0.3); Eosinophils Percent Auto 1.6 % (0-4.4); Hematocrit 29.1 % (37.0-47.0); Hemoglobin 9.3 g/dL (12.0-15.0); Immature Granulocyte Absolute 0.06 K/mm3 (0.00-0.031); Immature Granulocyte Percent A 0.7 % (0-0.5); Lymphocytes Absolute Auto 1.56 K/mm3 (0.9-3.2); Lymphocytes Percent Auto 17.9 % (18.3-44.2); Mean Corpuscular Hemoglobin 31.7 pg (26-34); Mean Corpuscular Volume 99.3 fl (80-100); Mean Platelet Volume 10.5 fl (7.4-10.4); Monocytes Absolute Auto 0.5 K/mm3 (0.1-0.6); Monocytes Percent Auto 6.2 % (2.6-8.5); Neutrophils Absolute Auto 6.4 K/mm3 (1.3-6.7); Neutrophils Percent Auto 73.3 % (45.5-73.1); Platelet Count Result 180 k/mm3 (150-375); Red Blood Count 2.93 M/mm3 (4.2-5.4); Red Cell Distribution Width 14.5 % (11.5-14.5); White Blood Count 8.7 K/mm3 (4.5-10.0)
[2022-02-27 05:53] LABS: Anion Gap 6 mmol/L (8-16); Blood Urea Nitrogen 43 mg/dL (7-17); Calcium 8.7 mg/dL (8.4-10.2); Carbon Dioxide 35 mmol/L (22-30); Chloride 86 mmol/L (98-107); Estimated CRCL calculation 12 ml/min; Estimated Glomerular Filt Rate 8; Glucose 217 mg/dL (65-110); Sodium 127 mmol/L (137-145)
[2022-02-27 06:19] LABS: Hepatitis B Surface Antigen Negative (Negative)
[2022-02-27 06:45] LABS: Hepatitis B Surface Anti Res Positive
[2022-02-27 08:51] LABS: Glucose Point of Care 189 mg/dl (65-105)
[2022-02-27] MEDS: INSULIN HUMAN NPH (*BKC) 100 UNITS/ML SUB-Q (08:59)
[2022-02-27] MEDS: CLINDAMYCIN 900 MG/D5W 50 ML 900 MG/50 ML PIGGYBACK 50 MG IVPB ×2 (09:00→19:07)
[2022-02-27] MEDS: VITAMIN B CMPLX/VIT C/FOLIC AC 1 CAPSULE 1 CAP PO (09:02)
[2022-02-27] MEDS: carvediloL 6.25 MG TABLET PO ×2 (09:02→22:19)
[2022-02-27] MEDS: calcitrioL 0.25 MCG CAPSULE PO (09:02)
[2022-02-27] MEDS: TICAGRELOR 90 MG TABLET PO ×2 (09:02→22:19)
[2022-02-27] MEDS: SEVELAMER CARBONATE 800 MG TABLET PO ×2 (09:02→12:02)
[2022-02-27] MEDS: PANTOPRAZOLE 40 MG TABLET PO (09:04)
[2022-02-27] MEDS: ASPIRIN 81 MG ENTERIC TABLET PO (09:04)
[2022-02-27] MEDS: HYDROcodone/acetaminophen (*CRX) 5-325 MG TABLET 1 TAB PO ×2 (09:05→19:07)
[2022-02-27 11:54] LABS: Glucose Point of Care 238 mg/dl (65-105)
[2022-02-27] MEDS: INSULIN ASPART (*BKC) 100 UNITS/ML 6 UNITS SUB-Q (12:01)
--- NOTE | 2022-02-27 14:50 | PC.NURSE ---
Patient down to dialysis.
--- NOTE | 2022-02-27 15:30 | PM.CNNEP ---
Assessment and Plan Assessment and plan (1) End stage renal disease: Code(s): N18.6 - End stage renal disease Status: Chronic Assessment and Plan: HD today continue M/W/F dialysis schedule while hospitalized follow electrolytes, volume status, and clearance (2) Cellulitis of leg, right: Code(s): L03.115 - Cellulitis of right lower limb Status: Acute Assessment and Plan: as noted by presentation on antibiotic therapy follow culture data (3) Hypertension: Qualifiers: Hypertension type: unspecified Qualified Code(s): I10 - Essential (primary) hypertension Code(s): I10 - Essential (primary) hypertension Status: Chronic Assessment and Plan: reasonable control at this time follow trend of hemodynamics (4) Anemia: Code(s): D64.9 - Anemia, unspecified Status: Chronic Assessment and Plan: due in part to ESRD and acute illness Epogen with HD follow trend of H/H (5) Diabetes: Qualifiers: Diabetes mellitus complication detail: with other circulatory complications Diabetes mellitus complication status: with circulatory complication Diabetes mellitus type: type 1 Qualified Code(s): E10.59 - Type 1 diabetes mellitus with other circulatory complications Code(s): E11.9 - Type 2 diabetes mellitus without complications Status: Chronic Assessment and Plan: follow accuchecks glycemic control Will continue to follow. History of Present Illness Reason for Consult Consult date: 02/27/22 Reason for consult: end stage renal disease Chief Complaint Chief complaint: Right lower extremity cellulitis,hyperglycemia History of Present Illness Narrative: The patient is a 46-year-old female with a past medical history as outlined below who presented to [facility] Emergency room with pain, redness, and swelling in her right lower extremity. The patient states that for over the last 3 days she has noticed increasing swelling, erythema, and pain in the right lower extremity. She denies any fevers, chills, nausea, vomiting, diarrhea, or any other systemic symptoms. Prior to the symptoms that started 3 days ago, she had been doing reasonably well. However, given the persistence of the symptoms, she came to the ER for further evaluation and therapy Workup and evaluation emergency room demonstrated the patient to be hemodynamically stable and in some mild distress secondary to the pain in her right lower extremity. She reports that she has had problems with cellulitis in her lower extremities before and this seems to be the case at this time as well. Routine blood test demonstrated labs consistent with a known history of end-stage renal disease and her CBC did show an elevated white blood cell count. Given her complex medical history in association with her physical exam findings, laboratory findings, and imaging studies, appropriate cultures were obtained and she started on IV antibiotic therapy for presumed right lower extremity cellulitis. Renal consultation was requested due to her end-stage renal disease. The patient normally dialyzes on a Friday, Friday, Friday dialysis schedule at [facility] under the care of Dr. Gregory Forbes. She received dialysis on Friday at her outpatient dialysis unit and Is currently receiving dialysis at the time of this dictation to maintain her outpatient dialysis schedule (seen on HD at 3:20PM). She has been compliant with her dialysis treatments in general and her monthly CKD parameters appear to be stable as well. Currently, at the time my visit, she appears to be in no acute distress. Review of Systems Review of Systems: As per HPI. [facility] Past Medical History Medical History Anasarca Cerebrovascular accident Small old lacunar infarct at the head of the right caudate nucleus. C
--- NOTE | 2022-02-27 15:57 | PM.IMPN ---
Progress Note: A&P Assessment and Plan (1) Cellulitis of leg, right: Code(s): L03.115 - Cellulitis of right lower limb Status: Acute Assessment and Plan: Right lower extremity continue IV clindamycin blood cultures pending supportive care. analgesics available as needed elevate extremity (2) End-stage renal disease on hemodialysis: Code(s): N18.6 - End stage renal disease; Z99.2 - Dependence on renal dialysis Status: Chronic Assessment and Plan: maintained on hemodialysis Friday, Friday, Friday appreciate nephrology consultation for dialysis management hemodialysis today (3) Diabetes mellitus: Code(s): E11.9 - Type 2 diabetes mellitus without complications Status: Acute Assessment and Plan: Last A1c was 7.6 in November 2021. blood sugars elevated this admission 200-230 Accu-Cheks, sliding scale insulin, hypoglycemic protocol continue NPH 4 units BID and Lantus 15 units qHS monitor glucose trend and adjust insulin regimen as needed (4) NOE (obstructive sleep apnea): Code(s): G47.33 - Obstructive sleep apnea (adult) (pediatric) Status: Acute Assessment and Plan: Continue CPAP at night (5) Tobacco dependence: Code(s): F17.200 - Nicotine dependence, unspecified, uncomplicated Status: Acute Assessment and Plan: Smokes 1 pack per day Educate regarding smoking cessation (6) Hyponatremia: Code(s): E87.1 - Hypo-osmolality and hyponatremia Status: Acute Assessment and Plan: Sodium 127 today Getting HD. Will be addressed at that time Monitor BMP Subjective Date/time seen: 02/27/22 15:57 Interval history: date of service: 02/27/2022 Yajaira Bhat is a 46-year-old female with a history of ESRD maintained on hemodialysis, diabetes mellitus, CVA, hyperlipidemia, CAD, and several other medical problems who is seen in follow-up for cellulitis of the right lower extremity. she endorses right leg discomfort and tightness that she rates as 7/10. She denies any drainage. She is unable to indicate whether the area is erythematous due to poor vision. She states it is mildly tender. She endorses chills and sweats but no fever. Denies nausea or vomiting. She is tolerating her diet. She only has minimal urine output due to end-stage renal disease, states she did urinate today and denies dysuria or hematuria. Her last bowel movement was 2 days ago. She endorses shortness of breath which is a persistent issue for her. Denies cough, chest pain, palpitations. No abdominal pain. Review of Systems Review of Systems: All systems reviewed & are unremarkable except as noted in HPI and below Exam Narrative: General: Thin, well-appearing 46-year-old female, sitting up in bed, comfortable, NARD Neuro: awake, alert and oriented x4, speech clear, no focal neuro deficits noted HEENMT: normocephalic, atraumatic, EOMI, sclerae anicteric, moist oral mucosa Respiratory: clear to auscultation bilaterally, nonlabored breathing Cardio: regular rate, regular rhythm with S1-S2 Abdomen: nondistended, normoactive bowel sounds, soft, nontender to palpation Extremities: AV fistula in left upper extremity, right lower extremity mildly erythematous, slightly warm to palpation with 2+ pitting edemano edema, left lower extremity no edema, erythema, tenderness to palpation. Brisk capillary refill. able to wiggle toes bilaterally Skin: no rashes or lesions, warm and dry Psych: appropriate mood and affect, judgment and insight intact Objective Data Vital Signs Vital Signs: Vital Signs - 24 hr 02/26/22 21:01 02/26/22 21:24 02/26/22 20:00 Temperature 97.7 F Pulse Rate 71 73 Respiratory Rate 18 Blood Pressure 132/53 L Pulse Oximetry 100 Oxygen Delivery Room Air 02/27/22 05:29 02/27/22 09:02 02/27/22 08:45 Temperature 98.0 F Pulse Rate 72 77 Respirator
[2022-02-27] MEDS: EPOETIN ALFA 10,000 UNITS/ML VIAL 10000 UNITS IV PUSH (17:34)
[2022-02-27 19:04] LABS: Glucose Point of Care 117 mg/dl (65-105)
[2022-02-27] MEDS: INSULIN GLARGINE (*BKC) 100 UNITS/ML 15 UNITS SUB-Q (22:21)
[2022-02-27 22:42] LABS: Glucose Point of Care 329 mg/dl (65-105)
--- NOTE | 2022-02-28 00:33 | PC.NURSE ---
Give midnight dose of clindamycin at 0100 to get back on JOHNSON following dialysis per pharmacy
[2022-02-28] MEDS: CLINDAMYCIN 900 MG/D5W 50 ML 900 MG/50 ML PIGGYBACK 50 MG IVPB ×4 (01:34→23:55)
[2022-02-28 04:34] LABS: Hematocrit 28.5 % (37.0-47.0); Mean Corpuscular HGB Conc 31.6 g/dl (32-36); Mean Corpuscular Hemoglobin 31.9 pg (26-34); Mean Corpuscular Volume 101.1 fl (80-100); Mean Platelet Volume 10.3 fl (7.4-10.4); Platelet Count Result 188 k/mm3 (150-375); Red Blood Count 2.82 M/mm3 (4.2-5.4); Red Cell Distribution Width 14.8 % (11.5-14.5); White Blood Count 8.1 K/mm3 (4.5-10.0)
[2022-02-28 04:51] LABS: Anion Gap 12 mmol/L (8-16); Blood Urea Nitrogen 26 mg/dL (7-17); Calcium 9.3 mg/dL (8.4-10.2); Carbon Dioxide 29 mmol/L (22-30); Chloride 95 mmol/L (98-107); Estimated CRCL calculation 19 ml/min; Estimated Glomerular Filt Rate 14; Glucose 322 mg/dL (65-110); Sodium 136 mmol/L (137-145)
[2022-02-28 06:49] VITALS: BP 137/61; PULSE 73; RESP 14; TEMP 36.6; O2SAT 98
[2022-02-28] MEDS: HYDROcodone/acetaminophen (*CRX) 5-325 MG TABLET 1 TAB PO ×3 (07:27→22:53)
[2022-02-28 08:55] LABS: Glucose Point of Care 257 mg/dl (65-105)
[2022-02-28] MEDS: INSULIN HUMAN NPH (*BKC) 100 UNITS/ML SUB-Q (08:56)
[2022-02-28] MEDS: INSULIN ASPART (*BKC) 100 UNITS/ML 6 UNITS SUB-Q ×2 (08:56→12:45)
[2022-02-28 08:57] VITALS: PULSE 73
[2022-02-28] MEDS: VITAMIN B CMPLX/VIT C/FOLIC AC 1 CAPSULE 1 CAP PO (08:57)
[2022-02-28] MEDS: carvediloL 6.25 MG TABLET PO ×2 (08:57→20:50)
[2022-02-28] MEDS: SEVELAMER CARBONATE 800 MG TABLET PO ×3 (08:57→17:33)
[2022-02-28] MEDS: ASPIRIN 81 MG ENTERIC TABLET PO (08:57)
[2022-02-28] MEDS: PANTOPRAZOLE 40 MG TABLET PO (08:57)
[2022-02-28] MEDS: TICAGRELOR 90 MG TABLET PO ×2 (08:57→20:50)
[2022-02-28] MEDS: calcitrioL 0.25 MCG CAPSULE PO (08:58)
--- NOTE | 2022-02-28 10:30 | PM.PNNEP ---
Progress Note: A&P Assessment and Plan (1) End stage renal disease: Code(s): N18.6 - End stage renal disease Status: Chronic Assessment and Plan: HD tomorrow continue M/W/F dialysis schedule while hospitalized follow electrolytes, volume status, and clearance (2) Cellulitis of leg, right: Code(s): L03.115 - Cellulitis of right lower limb Status: Acute Assessment and Plan: as noted by presentation on antibiotic therapy follow cultures (3) Hypertension: Qualifiers: Hypertension type: unspecified Qualified Code(s): I10 - Essential (primary) hypertension Code(s): I10 - Essential (primary) hypertension Status: Chronic Assessment and Plan: reasonable control at this time follow trend of hemodynamics (4) Anemia: Code(s): D64.9 - Anemia, unspecified Status: Chronic Assessment and Plan: due in part to ESRD and acute illness Epogen with HD follow trend of H/H (5) Diabetes: Qualifiers: Diabetes mellitus complication detail: with other circulatory complications Diabetes mellitus complication status: with circulatory complication Diabetes mellitus type: type 1 Qualified Code(s): E10.59 - Type 1 diabetes mellitus with other circulatory complications Code(s): E11.9 - Type 2 diabetes mellitus without complications Status: Chronic Assessment and Plan: follow accuchecks glycemic control Will continue to follow. Subjective Date/time seen: 02/28/22 10:30 Tolerated hemodialysis treatment yesterday without any issues or problems (per patient request, dialysis treatment time was extended yesterday in order to provide more ultrafiltration/fluid removal) with 4.5L fluid removal; right lower extremity seems to be doing better -- less redness and pain; no other events overnight or earlier this AM. Exam Narrative: General: WD/WN female in NAD Heart: normal S1 and S2; no rub Lungs: clear to auscultation Abdomen: soft, nontender, nondistended, positive bowel sounds Extremities: no cyanosis or clubbing; 1+ edema Skin: reduced erythema in right LE Objective Data Vital Signs Vital Signs: Vital Signs Temp Pulse Resp BP Pulse Ox O2 Del Method 02/28/22 08:57 73 02/28/22 08:06 Room Air 02/28/22 06:49 36.6 C 73 14 137/61 98 02/27/22 22:19 70 02/27/22 21:02 36.8 C 70 18 120/40 L 98 02/27/22 18:00 72 119/58 L 02/27/22 17:20 68 129/55 L 02/27/22 17:00 69 129/63 02/27/22 16:20 69 115/52 L 02/27/22 15:40 68 123/56 L 02/27/22 18:40 37.0 C 72 16 149/61 H 02/27/22 15:00 68 114/60 02/27/22 14:55 36.9 C 69 16 118/58 L 02/27/22 14:43 36.7 C 72 16 121/85 99 Intake/Output Intake/Output: Intake & Output 02/25/22 02/26/22 02/27/22 02/28/22 23:59 23:59 23:59 23:59 Intake Total 1390 630 350 Output Total 4500 Balance 1390 -3870 350 Meds/Results Medications: Active Medications Generic Name Dose Route Start Last Admin Trade Name Freq PRN Reason Stop Dose Admin Acetaminophen 650 mg 02/26/22 00:08 Acetaminophen 325 Mg Tablet PO Q4H PRN Mild Pain (1-3) or Fever Hydrocodone Bitart/Acetaminophen 1 tab 02/26/22 09:34 02/28/22 07:27 Hydrocodone/Acetaminophen (*Crx) 5-325 Mg Tablet PO 1 tab Q6H PRN Administration Pain Rated 4-10 Aspirin 81 mg 02/26/22 09:00 02/28/22 08:57 Aspirin 81 Mg Enteric Tablet PO 81 mg DAILY JOHNSON Administration Calcitriol 0.25 mcg 02/26/22 09:00 02/28/22 08:58 Calcitriol 0.25 Mcg Capsule PO 0.25 mcg QAM JOHNSON Administration Carvedilol 6.25 mg 02/26/22 09:00 02/28/22 08:57 Carvedilol 6.25 Mg Tablet PO 6.25 mg Q12H JOHNSON Administration Dextrose 12.5 gm 02/26/22 00:08 Dextrose 50% 25 Gm/50 Ml Syringe IV PUSH PRN PRN Hypoglycemia Protocol Glucagon 1 mg 02/26/22 00:08 Gluca
[2022-02-28 12:22] LABS: Glucose Point of Care 141 mg/dl (65-105)
[2022-02-28 13:55] VITALS: BP 125/51; PULSE 68; RESP 12; TEMP 36.7; O2SAT 100
--- NOTE | 2022-02-28 14:57 | PM.IMPN ---
Progress Note: A&P Assessment and Plan (1) Cellulitis of leg, right: Code(s): L03.115 - Cellulitis of right lower limb Status: Acute Assessment and Plan: Right lower extremity continue IV clindamycin blood cultures pending supportive care. analgesics available as needed elevate extremity appears clinically improved today hopeful discharge tomorrow on p.o. antibiotics if continued improvement (2) End-stage renal disease on hemodialysis: Code(s): N18.6 - End stage renal disease; Z99.2 - Dependence on renal dialysis Status: Chronic Assessment and Plan: maintained on hemodialysis Friday, Friday, Friday appreciate nephrology consultation for dialysis management dialyzed on 02/27/2022 (3) Diabetes mellitus: Code(s): E11.9 - Type 2 diabetes mellitus without complications Status: Acute Assessment and Plan: Last A1c was 7.6 in November 2021. fasting glucose today elevated at 322. Patient reportedly missed insulin yesterday while she was in dialysis. blood sugars improved this afternoon with lunchtime glucose 141 continue Accu-Cheks, sliding scale insulin, hypoglycemic protocol resume home regimen consisting of 7 units NovoLog with meals as well as low dose sliding scale insulin Lantus 12 units qHS monitor glucose trends and adjust insulin regimen as needed (4) NOE (obstructive sleep apnea): Code(s): G47.33 - Obstructive sleep apnea (adult) (pediatric) Status: Acute Assessment and Plan: Continue CPAP at night (5) Tobacco dependence: Code(s): F17.200 - Nicotine dependence, unspecified, uncomplicated Status: Acute Assessment and Plan: Smokes 1 pack per day Educate regarding smoking cessation (6) Hyponatremia: Code(s): E87.1 - Hypo-osmolality and hyponatremia Status: Acute Assessment and Plan: improved with dialysis. Sodium 136 today continue to monitor BMP Subjective Date/time seen: 02/28/22 14:57 Interval history: date of service: 02/28/2022 Yajaira Bhat is a 46-year-old female with a history of ESRD maintained on hemodialysis, diabetes mellitus, CVA, hyperlipidemia, CAD, and several other medical problems who is seen in follow-up for cellulitis of the right lower extremity. Continues to endorse pain in her right lower leg that she rates as 6/10. She has not noticed any change in redness or swelling. last night she had an episode of orthopnea but this is improved. At this time she denies shortness breath, cough, chest pain. She denies nausea, vomiting, or fever. Does endorse chills and sweats this morning. She is tolerating her diet. Review of Systems Review of Systems: All systems reviewed & are unremarkable except as noted in HPI and below Exam Narrative: General: Thin, well-appearing 46-year-old female, sitting up in bed, comfortable, NARD Neuro: awake, alert and oriented x4, speech clear, no focal neuro deficits noted HEENMT: normocephalic, atraumatic, EOMI, sclerae anicteric, moist oral mucosa Respiratory: clear to auscultation bilaterally, nonlabored breathing Cardio: regular rate, regular rhythm with S1-S2 Abdomen: nondistended, normoactive bowel sounds, soft, nontender to palpation Extremities: AV fistula in left upper extremity, right lower extremity with faint erythema, slightly warm to palpation with 2+ pitting edema, left lower extremity no edema, erythema, tenderness to palpation. Brisk capillary refill. able to wiggle toes bilaterally Skin: no rashes or lesions, warm and dry Psych: appropriate mood and affect, judgment and insight intact Objective Data Vital Signs Vital Signs: Vital Signs - 24 hr 02/27/22 15:00 02/27/22 18:40 02/27/22 15:40 Temperature 98.6 F Pulse Rate 68 72 68 Respiratory Rate 16 Blood Pressure 114/60 149/61 H 123/56 L Pulse Oximetry Oxygen Delivery 02/27/22 16:20
[2022-02-28 17:18] LABS: Glucose Point of Care 73 mg/dl (65-105)
[2022-02-28 20:26] VITALS: BP 138/83; PULSE 71; RESP 18; TEMP 35.9; O2SAT 100
[2022-02-28 20:50] VITALS: PULSE 71
[2022-02-28] MEDS: INSULIN GLARGINE (*BKC) 100 UNITS/ML 12 UNITS SUB-Q (20:52)
[2022-02-28 20:57] LABS: Glucose Point of Care 148 mg/dl (65-105)
[2022-03-01] VITALS (23 sets, daily range): BP systolic 107–164; BP diastolic 50–84; PULSE 69–89; RESP 16–20; TEMP 36–36.7; O2SAT 98–100
[2022-03-01 05:40] LABS: Hematocrit 29.5 % (37.0-47.0); Hemoglobin 9.3 g/dL (12.0-15.0); Mean Corpuscular HGB Conc 31.5 g/dl (32-36); Mean Corpuscular Hemoglobin 31.6 pg (26-34); Mean Corpuscular Volume 100.3 fl (80-100); Mean Platelet Volume 10.3 fl (7.4-10.4); Platelet Count Result 169 k/mm3 (150-375); Red Blood Count 2.94 M/mm3 (4.2-5.4); Red Cell Distribution Width 14.9 % (11.5-14.5); White Blood Count 7.2 K/mm3 (4.5-10.0)
[2022-03-01 05:52] LABS: Anion Gap 15 mmol/L (8-16); Blood Urea Nitrogen 42 mg/dL (7-17); Calcium 9.6 mg/dL (8.4-10.2); Carbon Dioxide 25 mmol/L (22-30); Chloride 96 mmol/L (98-107); Estimated CRCL calculation 13 ml/min; Estimated Glomerular Filt Rate 9; Glucose 227 mg/dL (65-110); Potassium 5.5 mmol/L (3.4-5.0); Sodium 136 mmol/L (137-145)
[2022-03-01] MEDS: TICAGRELOR 90 MG TABLET PO ×2 (08:30→20:20)
[2022-03-01] MEDS: carvediloL 6.25 MG TABLET PO ×2 (08:30→20:20)
[2022-03-01] MEDS: calcitrioL 0.25 MCG CAPSULE PO (08:30)
[2022-03-01] MEDS: ASPIRIN 81 MG ENTERIC TABLET PO (08:30)
[2022-03-01] MEDS: PANTOPRAZOLE 40 MG TABLET PO (08:30)
[2022-03-01] MEDS: VITAMIN B CMPLX/VIT C/FOLIC AC 1 CAPSULE 1 CAP PO (08:30)
[2022-03-01] MEDS: SEVELAMER CARBONATE 800 MG TABLET PO ×3 (08:31→20:20)
[2022-03-01] MEDS: CLINDAMYCIN 900 MG/D5W 50 ML 900 MG/50 ML PIGGYBACK 50 MG IVPB ×2 (08:34→20:21)
[2022-03-01 08:46] LABS: Glucose Point of Care 173 mg/dl (65-105)
[2022-03-01] MEDS: INSULIN ASPART (*BKC) 100 UNITS/ML 7 UNITS SUB-Q ×3 (09:50→20:21)
[2022-03-01 12:16] LABS: Glucose Point of Care 177 mg/dl (65-105)
--- NOTE | 2022-03-01 13:15 | P.PNNP_ITS ---
Progress Note: A&P Assessment and Plan (1) End stage renal disease: Code(s): N18.6 - End stage renal disease Status: Chronic Assessment and Plan: * HD today * continue M/W/F dialysis schedule while hospitalized * follow electrolytes, volume status, and clearance (2) Cellulitis of leg, right: Code(s): L03.115 - Cellulitis of right lower limb Status: Acute Assessment and Plan: * as noted by presentation * on antibiotic therapy * follow cultures (3) Hypertension: Qualifiers: Hypertension type: unspecified Qualified Code(s): I10 - Essential (primary) hypertension Code(s): I10 - Essential (primary) hypertension Status: Chronic Assessment and Plan: * reasonable control at this time * follow trend of hemodynamics (4) Anemia: Code(s): D64.9 - Anemia, unspecified Status: Chronic Assessment and Plan: * due in part to ESRD and acute illness * Epogen with HD * follow trend of H/H (5) Diabetes: Qualifiers: Diabetes mellitus complication detail: with other circulatory complications Diabetes mellitus complication status: with circulatory complication Diabetes mellitus type: type 1 Qualified Code(s): E10.59 - Type 1 diabetes mellitus with other circulatory complications Code(s): E11.9 - Type 2 diabetes mellitus without complications Status: Chronic Assessment and Plan: * follow accuchecks * glycemic control Will continue to follow. Subjective Date/time seen: 03/01/22 13:15 Appears to be doing reasonably well at this time; overall, she states she feels significantly better in comparison to admission; due for dialysis today; no apparent distress noted; no issues/events overnight or earlier this morning. Exam Narrative: General: WD/WN female in NAD Heart: normal S1 and S2; no rub Lungs: clear to auscultation Abdomen: soft, nontender, nondistended, positive bowel sounds Extremities: no cyanosis or clubbing; trace -1+ edema Skin: reduced erythema in right LE Objective Data Vital Signs Vital Signs: Vital Signs Temp Pulse Resp BP Pulse Ox 03/01/22 08:30 72 03/01/22 04:41 36.0 C L 72 18 115/55 L 98 02/28/22 20:50 71 02/28/22 20:26 35.9 C L 71 18 138/83 100 Intake/Output Intake/Output: Intake & Output 02/26/22 02/27/22 02/28/22 03/01/22 23:59 23:59 23:59 23:59 Intake Total 9881 484 2893 850 Output Total 4500 Balance 1390 -3870 1410 850 Meds/Results Medications: Active Medications Generic Name Dose Route Start Last Admin Trade Name Freq PRN Reason Stop Dose Admin Acetaminophen 650 mg 02/28/22 15:07 Acetaminophen 325 Mg Tablet PO Q4H PRN Mild Pain (1-5) Hydrocodone Bitart/Acetaminophen 1 tab 02/28/22 15:08 02/28/22 22:53 Hydrocodone/Acetaminophen (*Crx) 5-325 Mg Tablet PO 1 tab Q6H PRN Administration Pain Rated 6-10 Aspirin 81 mg 02/26/22 09:00 03/01/22 08:30 Aspirin 81 Mg Enteric Tablet PO 81 mg DAILY JOHNSON Administration Calcitriol 0.2
--- NOTE | 2022-03-01 13:15 | PM.PNNEP ---
Progress Note: A&P Assessment and Plan (1) End stage renal disease: Code(s): N18.6 - End stage renal disease Status: Chronic Assessment and Plan: HD today continue M/W/F dialysis schedule while hospitalized follow electrolytes, volume status, and clearance (2) Cellulitis of leg, right: Code(s): L03.115 - Cellulitis of right lower limb Status: Acute Assessment and Plan: as noted by presentation on antibiotic therapy follow cultures (3) Hypertension: Qualifiers: Hypertension type: unspecified Qualified Code(s): I10 - Essential (primary) hypertension Code(s): I10 - Essential (primary) hypertension Status: Chronic Assessment and Plan: reasonable control at this time follow trend of hemodynamics (4) Anemia: Code(s): D64.9 - Anemia, unspecified Status: Chronic Assessment and Plan: due in part to ESRD and acute illness Epogen with HD follow trend of H/H (5) Diabetes: Qualifiers: Diabetes mellitus complication detail: with other circulatory complications Diabetes mellitus complication status: with circulatory complication Diabetes mellitus type: type 1 Qualified Code(s): E10.59 - Type 1 diabetes mellitus with other circulatory complications Code(s): E11.9 - Type 2 diabetes mellitus without complications Status: Chronic Assessment and Plan: follow accuchecks glycemic control Will continue to follow. Subjective Date/time seen: 03/01/22 13:15 Appears to be doing reasonably well at this time; overall, she states she feels significantly better in comparison to admission; due for dialysis today; no apparent distress noted; no issues/events overnight or earlier this morning. Exam Narrative: General: WD/WN female in NAD Heart: normal S1 and S2; no rub Lungs: clear to auscultation Abdomen: soft, nontender, nondistended, positive bowel sounds Extremities: no cyanosis or clubbing; trace -1+ edema Skin: reduced erythema in right LE Objective Data Vital Signs Vital Signs: Vital Signs Temp Pulse Resp BP Pulse Ox 03/01/22 08:30 72 03/01/22 04:41 36.0 C L 72 18 115/55 L 98 02/28/22 20:50 71 02/28/22 20:26 35.9 C L 71 18 138/83 100 Intake/Output Intake/Output: Intake & Output 02/26/22 02/27/22 02/28/22 03/01/22 23:59 23:59 23:59 23:59 Intake Total 1623 240 5395 850 Output Total 4500 Balance 1390 -8530 1410 850 Meds/Results Medications: Active Medications Generic Name Dose Route Start Last Admin Trade Name Freq PRN Reason Stop Dose Admin Acetaminophen 650 mg 02/28/22 15:07 Acetaminophen 325 Mg Tablet PO Q4H PRN Mild Pain (1-5) Hydrocodone Bitart/Acetaminophen 1 tab 02/28/22 15:08 02/28/22 22:53 Hydrocodone/Acetaminophen (*Crx) 5-325 Mg Tablet PO 1 tab Q6H PRN Administration Pain Rated 6-10 Aspirin 81 mg 02/26/22 09:00 03/01/22 08:30 Aspirin 81 Mg Enteric Tablet PO 81 mg DAILY JOHNSON Administration Calcitriol 0.25 mcg 02/26/22 09:00 03/01/22 08:30 Calcitriol 0.25 Mcg Capsule PO 0.25 mcg QAM J[facility]ON Administration Carvedilol 6.25 mg 02/26/22 09:00 03/01/22 08:30 Carvedilol 6.25 Mg Tablet PO 6.25 mg Q12H JOHNSON Administration Dextrose 12.5 gm 02/26/22 00:08 Dextrose 50% 25 Gm/50 Ml Syringe IV PUSH PRN PRN Hypoglycemia Protocol Epoetin Humble-epbx 10,000 units 03/01/22 22:29 Epoetin Humble-Epbx 10,000 Units/Ml Vial IV PUSH 03/01/22 22:30 ONCE ONE Glucagon 1 mg 02/26/22 00:08 Glucagon For Inj 1 Mg Vial IM PRN PRN Hypoglycemia Protocol Glucose 15 gm 02/26/22 00:08 Glucose Oral Gel 15 Gm Of Glucse In 37.5 Gm Tube PO PRN PRN Hypoglycemia Protocol Clindamycin Phosphate 900 mg in 50 mls @ 50 mls/hr 02/26/22 08:00 03/01/22 09:34 Cleocin 900 Mg/D5w 50 Ml IVPB Infused Q8H JOHNSON Infusion Dex
--- NOTE | 2022-03-01 16:11 | WPDPROCEDUR ---
Procedures Other Procedures Procedure 1: Other Procedure: HEMODIALYSIS PROCEDURE NOTE: Patient seen/evaluated on hemodialysis treatment - she was seen at 4:00PM. Tolerating treatment reasonably well.
[2022-03-01] MEDS: EPOETIN ALFA-EPBX 10,000 UNITS/ML VIAL 10000 UNITS IV PUSH (17:40)
[2022-03-01 21:18] LABS: Glucose Point of Care 116 mg/dl (65-105)
--- NOTE | 2022-03-02 08:38 | PM.DS ---
DS: Admitting Diagnosis Discharge Date 03/01/22 Admitting Diagnosis Cellulitis DS: Discharge Diagnosis Discharge Diagnosis (1) Cellulitis of leg, right: Code(s): L03.115 - Cellulitis of right lower limb Status: Acute Assessment and Plan: Right lower extremity Managed during admission with IV clindamycin blood cultures negative to date, final cultures will be monitored supportive care provided. continue to elevate extremity continue PO keflex on discharge to complete 7 day course of antibiotics (2) End-stage renal disease on hemodialysis: Code(s): N18.6 - End stage renal disease; Z99.2 - Dependence on renal dialysis Status: Chronic Assessment and Plan: maintained on hemodialysis Friday, Friday, Friday seen in consultation by nephrology during admission for dialysis management (3) Diabetes mellitus: Code(s): E11.9 - Type 2 diabetes mellitus without complications Status: Acute Assessment and Plan: Last A1c was 7.6 in November 2021. continue home regimen of lantus 10 units qHS, novolog 7 units with meals plus sliding scale insulin (4) NOE (obstructive sleep apnea): Code(s): G47.33 - Obstructive sleep apnea (adult) (pediatric) Status: Acute Assessment and Plan: Continue CPAP at night (5) Tobacco dependence: Code(s): F17.200 - Nicotine dependence, unspecified, uncomplicated Status: Acute Assessment and Plan: Smokes 1 pack per day Educated regarding smoking cessation (6) Hyponatremia: Code(s): E87.1 - Hypo-osmolality and hyponatremia Status: Acute Assessment and Plan: Improved with dialysis. DS: Summary Hospital Course Hospital Course: Date of admission: 02/26/2022 Date of discharge: 03/01/2022 Yajaira Bhat is a 46-year-old female with a history of ESRD maintained on hemodialysis, diabetes mellitus, CVA, hyperlipidemia, CAD, and several other medical problems who presented to the emergency department on 02/26/2022 with complaints of right lower extremity pain, redness, and swelling. On presentation the ED, vital signs are stable, WBC 10.9, sodium 127, creatinine 3.4, glucose 482, CRP 8.7, additional laboratory workup unremarkable and right lower extremity venous Doppler was negative for DVT. She was admitted to the hospitalist service for further evaluation and management. She was seen in consultation by Nephrology who managed dialysis during admission. Her right lower extremity cellulitis improved with IV antibiotics and supportive care. She will continue course of antibiotics on discharge to complete 7 days of therapy. Given her overall improvement, she was determined to no longer require inpatient care and was discharged in hemodynamically stable condition on 03/01/2022. She will follow up with her primary care provider as an outpatient. Patient comfortable with discharge plans. Discussed worrisome signs and symptoms for which to return and she was educated on her medications. Time Spent with Patient Time attestation: Total time spent providing and/or coordinating discharge services: 42 minutes Time spent: Greater than 30 minutes Exam Narrative: General: Thin, well-appearing 46-year-old female, sitting up in bed, comfortable, NARD Neuro: awake, alert and oriented x4, speech clear, no focal neuro deficits noted HEENMT: normocephalic, atraumatic, EOMI, sclerae anicteric, moist oral mucosa Respiratory: clear to auscultation bilaterally, nonlabored breathing Cardio: regular rate, regular rhythm with S1-S2 Abdomen: nondistended, normoactive bowel sounds, soft, nontender to palpation Extremities: AV fistula in left upper extremity, right lower extremity with minimal erythema, no warmth to palpation, with 1+ pitting edema, left lower extremity no edema, erythema, or tenderness to palpation. Brisk capillary refill. able to wiggle toes bilaterally Ski
== END 2022-03-01 21:10 | disposition home or self-care (01) | DRG 602 ==
LOC: ANHED 02-26 00:08 → ANH2MED 02-26 00:52
PROVIDERS: Internal Medicine Nephrology; Physician Assistant; Admitting Provider Internal Medicine; Emergency Provider Emergency Medicine; PCP Internal Medicine; Visit Provider Physician Assistant
DX: L03.115 Cellulitis of right lower limb (principal); G93.5 Compression of brain; N18.6 End stage renal disease; M86.60 Other chronic osteomyelitis, unspecified site; I50.22 Chronic systolic (congestive) heart failure; E87.1 Hypo-osmolality and hyponatremia; E11.22 Type 2 diabetes mellitus with diabetic chronic kidney disease; E11.43 Type 2 diabetes mellitus with diabetic autonomic (poly)neuropathy; K31.84 Gastroparesis; E78.5 Hyperlipidemia, unspecified; G47.33 Obstructive sleep apnea (adult) (pediatric); N25.0 Renal osteodystrophy; F17.210 Nicotine dependence, cigarettes, uncomplicated; Z89.422 Acquired absence of other left toe(s); Z95.5 Presence of coronary angioplasty implant and graft; Z90.49 Acquired absence of other specified parts of digestive tract; Z86.73 Personal history of transient ischemic attack (TIA), and cerebral infarction without residual deficits; Z99.2 Dependence on renal dialysis
CPT/HCPCS: 36415; 80048; 82948; 85025; 85027; 85610; 85652; 85730; 86140; 86706; 87040; 87340; 93971; 96365; 96366; 96367; 96375; 99285; A9270; G0257; G0378; J1815; J7030; Q4081; Q5105

== ENCOUNTER 2022-03-06 14:13 | Observation (INO) | payer OTHER, MEDICARE, MEDICAID, SELFPAY ==
[2022-03-06] VITALS (14 sets, daily range): BP systolic 98–144; BP diastolic 38–82; PULSE 83–114; RESP 16–32; TEMP 36.7–38.4; O2SAT 92–99; BMI 25.9
--- NOTE | ~2022-03-06 | CT_ITS ---
EXAMINATION: CT abdomen pelvis w con DATE: 03/06/2022 19:17 INDICATION: Right lower quadrant abdominal pain, vomiting TECHNIQUE: Computed tomography (CT) of the abdomen and pelvis was performed with 100 CC Omnipaque 350 intravenous contrast. Automated exposure control and iterative reconstruction technique were employe d. Exam dose: 336.53 mGy-cm total exam DLP. COMPARISON: 12/27/2021 CT abdomen pelvis FINDINGS: Status post sternotomy. Extensive coronary artery calcifications. Cardiomegaly. No pericard ial or pleural effusion. There is mild discoid atelectasis at the lung bases. Status post cholecystectomy. No hepatic, splenic, pancreatic or adrenal space-occupying mass lesion i s detected. Bilateral renal cortical thickening. No renal mass lesion or urinary tract calculus or hy droureteronephrosis. There is diffuse thickening of the urinary bladder wall. The uterus and adnexal areas are unremarkable. Severe atherosclerotic calcification of the abdominal aorta and branches including particularly promi nent calcification of the renal arteries. No abdominal aortic aneurysm. No intraperitoneal or retrope ritoneal or pelvic mass lesion or adenopathy or ascites. Prominent amount fecal material in the rectum and colon. No CT evidence of appendicitis. No bowel obs truction or intraperitoneal free air. No suspicious osteolytic or osteoblastic lesions are noted. IMPRESSION: No CT evidence of appendicitis Prominent amount fecal material in the rectum and colon; no bowel obstruction Status post cholecystectomy Cardiomegaly and extensive atherosclerotic disease including extensive calcification of coronary racheal cathryn and renal arteries Bilateral renal atrophy Reviewed, dictated and finalized at [facility]. Reviewed, dictated and finalized at [facility]. IMPRESSION: No CT evidence of appendicitis Prominent amount fecal material in the rectum and colon; no bowel obstruction Status post cholecystectomy Cardiomegaly and extensive atherosclerotic disease including extensive calcific ation of coronary arteries and renal arteries Bilateral renal atrophy
--- NOTE | ~2022-03-06 | US_ITS ---
EXAMINATION: US art doppler w press LE BI DATE: 03/07/2022 11:35 INDICATION: Peripheral arterial disease. TECHNIQUE: Segmental pressures and plethysmographic and Doppler waveforms of the brachial and lower e xtremity arteries were obtained. COMPARISON: CT abdomen and pelvis 03/06/2022 FINDINGS: Right brachial artery pressure is 124 mm Hg. The right ankle-brachial index (PAMELA) could not be measured due to inability to cuff occlude the arter ies (normal >= 0.9-1.0). The right great toe-brachial index (TBI) could not be measured due to lack o f arterial signal in the great toe (normal >= 0.65). Arterial Doppler waveforms are biphasic in commo n femoral artery, superficial femoral artery, and popliteal artery and noisy at the ankle. The left PAMELA is 1.03. The left TBI is 0.38. Arterial Doppler waveforms are biphasic from common femor al artery to the ankle. IMPRESSION: 1. No detectable arterial signal in the right great toe. 2. Nondiagnostic right PAMELA, likely secondary to arterial calcifications. 3. Decreased left TBI and normal left PAMELA, consistent with arterial occlusive disease. Note that PAMELA may be overestimated given that the arteries are calcified. Reviewed, dictated and finalized at location [facility]. IMPRESSION: 1. No detectable arterial signal in the right great toe. 2. Nondiagnostic right PAMELA, likely secondary to arterial calcifications. 3. Decreased left TBI and normal left PAMELA, consistent with arterial occlusive d isease. Note that PAMELA may be overestimated given that the arteries are calcifie d.
[2022-03-06 14:52] LABS: Basophils Percent Auto 0.3 % (0.2-1.2); Eosinophils Percent Auto 0.2 % (0-4.4); Hemoglobin 9.7 g/dL (12.0-15.0); Immature Granulocyte Absolute 0.07 K/mm3 (0.00-0.031); Immature Granulocyte Percent A 0.5 % (0-0.5); Lymphocytes Percent Auto 5.5 % (18.3-44.2); Mean Corpuscular HGB Conc 32.3 g/dl (32-36); Mean Corpuscular Hemoglobin 32.1 pg (26-34); Mean Corpuscular Volume 99.3 fl (80-100); Mean Platelet Volume 10.2 fl (7.4-10.4); Monocytes Absolute Auto 0.7 K/mm3 (0.1-0.6); Monocytes Percent Auto 4.6 % (2.6-8.5); Neutrophils Percent Auto 88.9 % (45.5-73.1); Platelet Count Result 239 k/mm3 (150-375); Red Blood Count 3.02 M/mm3 (4.2-5.4); Red Cell Distribution Width 15.6 % (11.5-14.5); White Blood Count 14.7 K/mm3 (4.5-10.0)
[2022-03-06 15:04] LABS: Alanine Aminotransferase 82 U/L (6-35); Albumin Level 4.4 g/dL (3.5-5.1); Alkaline Phosphatase 487 U/L (38-126); Anion Gap 21 mmol/L (8-16); Aspartate Amino Transferase 102 U/L (14-36); Bilirubin,Total 1.1 mg/dL (0.2-1.3); Blood Urea Nitrogen 19 mg/dL (7-17); Calcium 9.4 mg/dL (8.4-10.2); Carbon Dioxide 32 mmol/L (22-30); Chloride 87 mmol/L (98-107); Estimated CRCL calculation 20 ml/min; Estimated Glomerular Filt Rate 18; Glucose 240 mg/dL (65-110); Lipase 54 U/L (23-300); Potassium 4.1 mmol/L (3.4-5.0); Sodium 140 mmol/L (137-145)
--- NOTE | 2022-03-06 18:46 | ED.NAVMDI ---
HPI - Nausea/Vomiting/Diarrhea General Chief complaint: Nausea/Vomiting/Diarrhea Stated complaint: vomiting, fever, at PCP and told to come to ED Time Seen by Provider: 03/06/22 18:38 History of Present Illness HPI Narrative: Patient is a 46-year-old female with a history of diabetes, ESRD on dialysis MWF, prior CVA, hypertension presenting with vomiting. Patient states that she was recently discharged after being treated with IV antibiotics for cellulitis on her right leg. Over the last several days, she has had increasing nausea and vomiting. She states that the redness on her right lower leg has also returned as has the pain. Patient went in for dialysis today and was able to complete her full treatment but they advised she come to the ER for further evaluation given her worsening leg pain and vomiting. Her PCP is concerned that she may require further IV antibiotics if the cellulitis has returned. Patient also complains of abdominal pain that started after she started vomiting. Patient states that she makes small amount of urine daily. She denies headache, vision changes, numbness or weakness, chest pain, shortness of breath, cough. Related Data Home Medications Medication Instructions Recorded Confirmed aspirin 81 mg tablet,delayed 81 mg PO DAILY 12/20/20 03/06/22 release sevelamer carbonate 800 mg tablet 800 mg PO TIDWM 03/13/21 03/06/22 pantoprazole 40 mg tablet,delayed 40 mg PO DAILY 09/03/21 03/06/22 release carvedilol 6.25 mg tablet 6.25 mg PO Q12H 02/20/22 03/06/22 ticagrelor 90 mg tablet 90 mg PO Q12H 02/20/22 03/06/22 insulin glargine 100 unit/mL (3 10 unit subcut HS 02/28/22 03/06/22 mL) subcutaneous pen (Lantus Solostar U-100 Insulin) insulin lispro 100 unit/mL 7 unit subcut TIDWMEAL 02/28/22 03/06/22 subcutaneous pen (Humalog KwikPen (U-100) Insulin) insulin lispro 100 unit/mL See Protocol subcut TIDWMEAL 02/28/22 03/06/22 subcutaneous solution (Humalog U-100 Insulin) vitamin B complex-vitamin C-folic 0.8 tablet PO DAILY 03/06/22 03/06/22 acid 0.8 mg tablet (Renal Vitamin) Allergies Allergy/AdvReac Type Severity Reaction Status Date / Time No Known Drug Allergies Allergy Unknown Verified 02/25/22 19:45 Review of Systems Review of Systems: All systems reviewed & are unremarkable except as noted in HPI and below PMFSH Past Medical History Medical History Anasarca Cerebrovascular accident Small old lacunar infarct at the head of the right caudate nucleus. Chiari I malformation Chronic osteomyelitis Status post toe amputations Congestive heart failure Coronary artery disease Status post stent to the right coronary artery in August 2020. End-stage renal disease on hemodialysis On dialysis since June 2019. Erythropoietin deficiency anemia Esophagitis determined by endoscopy (12/2019) Gastroparesis due to DM Hyperlipidemia Renal osteodystrophy Surgical History Surgical History Amputation of toe Two on the left AV fistula Left forearm History of section, classical X2 History of coronary artery stent placement History of laparoscopic cholecystectomy (03/15/21) History of myringotomy History of repair of rotator cuff History of tonsillectomy and adenoidectomy History of tubal ligation Hx of myringotomy Status post lateral meniscus repair Family History Family History Other Adopted Social History Social History Social History: She has 2 children and she lives with her of 28 years. She is on disability. She smoked up to a pack of cigarettes a day since the age of 16 but now smokes about a 4th a pack a day. She denies alcohol and illicit substance abuse. Surrogate decision maker: Fitoeliotrafy Perlita, spouse. Code status:
[2022-03-06] MEDS: ONDANSETRON INJ 4 MG/2 ML VIAL IV PUSH (19:34)
[2022-03-06] MEDS: fentaNYL CITRATE INJ (*CRX) 100 MCG/2 ML VIAL 50 MCG IV PUSH (19:35)
[2022-03-06] MEDS: ACETAMINOPHEN 500 MG TABLET 1000 MG PO (19:35)
--- NOTE | 2022-03-06 20:09 | PC.NURSE ---
Pt sats 74% on room air with good wave form. Placed on 2 liters via nasal cannula and 89% with good wave form. Increased oxygen to 3 liters via nasal cannula and 96% with good wave form. Pt reported to RN recently diagnosed with sleep apnea. Notified Dr Dennison and no new orders received.
[2022-03-06 20:20] LABS: SARS-CoV-2 RNA PCR Negative
--- NOTE | 2022-03-06 20:43 | PM.IMHP ---
H&P: HPI History of Present Illness Date/Time: 03/06/22 20:43 Chief Complaint: nausea and vomiting Narrative: This is a 46-year-old female with past medical history significant for type 1 diabetes mellitus, peripheral diabetic neuropathy, peripheral vascular disease, chronic osteomyelitis, diabetic foot, coronary artery disease, end-stage renal disease on hemodialysis, gastroparesis, dyslipidemia. Patient just recently discharged from [facility] she was treated for cellulitis and discharged home. however patient returns today stating that her foot looks red and swollen has had nausea and vomiting and constipation for the last week or so denies any fevers, rigors, or chills. However has not been able to keep anything down due to nausea and vomiting co abdominal pain. Preliminary workup was significant for CT of abdomen and pelvis: IMPRESSION:? No CT evidence of appendicitis Prominent amount fecal material in the rectum and colon; no bowel obstruction Status post cholecystectomy Cardiomegaly and extensive atherosclerotic disease including extensive calcification of coronary arteries and renal arteries Bilateral renal atrophy Review of Systems Review of Systems: nausea, vomiting, abdominal pain, poor appetite. Constitutional: Constitutional: Reports poor appetite Eyes: Eyes: Denies change in vision ENT: Denies dysphagia, Denies vertigo, Denies dizziness and Denies odynophagia Cardiovascular: Cardiovascular: Denies chest pain Respiratory: Respiratory: Denies chest congestion, Denies excessive phlegm production, Denies pain on inspiration, Denies dyspnea and Denies dyspnea on exertion Gastrointestinal: Gastrointestinal: Reports abdominal pain, Reports constipation, Denies dyspepsia, Denies heartburn, Denies diarrhea, Reports nausea and Reports vomiting Genitourinary: Genitourinary: Denies dysuria Musculoskeletal: Musculoskeletal: Reports joint swelling and Reports other ( swelling and redness right foot) Neurologic: Denies vertigo, Denies dizziness, Denies focal weakness and Denies Sensory deficit (Neuro) Hematologic/Lymphatic: Hematologic/Lymphatic: Reports no additional hematologic/lymphatic complaints and Reports as per HPI Allergic/Immunologic: Allergic/Immunologic: Reports no additional allergic/immunologic complaints and Reports as per HPI [facility] Past Medical History Medical History Anasarca Cerebrovascular accident Small old lacunar infarct at the head of the right caudate nucleus. Chiari I malformation Chronic osteomyelitis Status post toe amputations Congestive heart failure Coronary artery disease Status post stent to the right coronary artery in August 2020. End-stage renal disease on hemodialysis On dialysis since June 2019. Erythropoietin deficiency anemia Esophagitis determined by endoscopy (12/2019) Gastroparesis due to DM Hyperlipidemia Renal osteodystrophy Surgical History Surgical History Amputation of toe Two on the left AV fistula Left forearm History of section, classical X2 History of coronary artery stent placement History of laparoscopic cholecystectomy (03/15/21) History of myringotomy History of repair of rotator cuff History of tonsillectomy and adenoidectomy History of tubal ligation Hx of myringotomy Status post lateral meniscus repair Family History Family History Other Adopted Social History Social History Social History: She has 2 children and she lives with her of 28 years. She is on disability. She smoked up to a pack of cigarettes a day since the age of 16 but now smokes about a 4th a pack a day. She denies alcohol and illicit substance abuse. Surrogate decision maker: Diana Bhat, spouse. Code status: Full
[2022-03-06] MEDS: SODIUM CHLORIDE 0.9% IV 500 ML 999 ML IV CONT (20:47)
--- NOTE | 2022-03-06 20:54 | PC.NURSE ---
Attempted to obtain urine sample from pt. Pt is on dialysis and unable to pee much or often
--- NOTE | 2022-03-06 21:46 | ADMGEN ---
This patient, Pamela Bhat, was admitted to 2 Medical Room 246-01. Patient/family oriented to hospital policies and general routines including ID bracelet, bed and alarms, visiting hours, pain management, procedures, bathroom and other care routines, personal items, smoking policy, room service/diet, and visiting hours. Information on how to activate the Rapid Response Team has been discussed. Patient/Family are encouraged to report perceived risks to care and to ask questions if they do not understand what they are told or what they should do.
[2022-03-06 22:28] LABS: Lactic Acid Reflex 1.1 mmol/L (0.7-2.0)
[2022-03-07 06:55] VITALS: BP 136/58; PULSE 77; RESP 14; TEMP 36.4; O2SAT 100
--- NOTE | 2022-03-07 07:59 | PM.IMPN ---
Progress Note: A&P Assessment and Plan (1) Constipation: Code(s): K59.00 - Constipation, unspecified Status: Acute (2) Hyponatremia: Code(s): E87.1 - Hypo-osmolality and hyponatremia Status: Acute (3) Diabetes mellitus: Code(s): E11.9 - Type 2 diabetes mellitus without complications Status: Acute (4) End stage renal disease on dialysis: Code(s): N18.6 - End stage renal disease; Z99.2 - Dependence on renal dialysis Status: Acute (5) Cellulitis of leg, right: Code(s): L03.115 - Cellulitis of right lower limb Status: Acute (6) Acute hyperglycemia: Code(s): R73.9 - Hyperglycemia, unspecified Status: Acute (7) Gangrene due to arterial insufficiency: Code(s): I77.1 - Stricture of artery; I96 - Gangrene, not elsewhere classified Status: Acute Plan 46 yo F w DMT1, ESRD, CHF, H/o CVA, HLD, gastroparesis, CAD, recently admitted for RLE cellulitis and returns w nausea, vomiting, feeling unwell with ongoing redness and tenderness of R foot. She is found to have cold black R hallux on PE laxative vanco/cefepime/metronidazole cont home meds Art doppler w PAMELA transfer to tertiary center for CT stanislav lay stent vs bypass and podiatry consult Subjective Date/time seen: 03/07/22 07:59 pt w persistent redness of dorsal aspect of R foot since discharge from [place]. Her 1st toe turned back a couple of days ago. She has no sensation in 5 toes or plantar surface of foot and therefore denies pain numbness tingling. She came to hospital for nausea green foul tasting vomiting and LLQ flank pain. Normal BM q 2-3 days. Pts last bm 7 days ago. Review of Systems Review of Systems: All systems reviewed & are unremarkable except as noted in HPI and below Exam Narrative: GEN: NAD, AAOx3, cooperative HEENT: NCAT, MMM, EOMI Neck: no JVD Heart: S1S2 RRR Lungs: CTA B/l Abd: soft, mild TTP LLQ, ND, BS+ Ext: moves all, + cyanosis, no clubbing, + edema of R foot, L foot w surgical amputation of digits 2 and 4 w loss of arch Neuro: moves all extremities equally CN intact Psych: mood and affect congruent Objective Data Vital Signs Vital Signs: Vital Signs - 24 hr 03/06/22 14:28 03/06/22 18:43 03/06/22 19:35 Temperature 101.2 F H 98.4 F Pulse Rate 114 H 99 90 Respiratory Rate 20 20 28 H Blood Pressure 137/58 L 109/57 L 138/47 L Pulse Oximetry 98 99 Oxygen Delivery Room Air Oxygen Flow Rate 03/06/22 19:45 03/06/22 19:46 03/06/22 20:01 Temperature Pulse Rate 94 87 91 Respiratory Rate 32 H 26 H 26 H Blood Pressure 128/49 L 98/38 L Pulse Oximetry 93 95 96 Oxygen Delivery Oxygen Flow Rate 03/06/22 20:16 03/06/22 20:31 03/06/22 20:46 Temperature Pulse Rate 87 86 88 Respiratory Rate 21 H 20 24 H Blood Pressure 144/55 H 132/57 L 123/59 L Pulse Oximetry 98 97 98 Oxygen Delivery Oxygen Flow Rate 03/06/22 21:01 03/06/22 21:16 03/06/22 21:31 Temperature Pulse Rate 86 84 83 Respiratory Rate 22 H 22 H 22 H Blood Pressure 121/54 L 115/57 L 118/53 L Pulse Oximetry 97 98 98 Oxygen Delivery Oxygen Flow Rate 03/06/22 22:00 03/06/22 22:56 03/07/22 06:55 Temperature 98.0 F 97.6 F Pulse Rate 85 77 Respiratory Rate 16 14 Blood Pressure 117/82 136/58 L Pulse Oximetry 99 92 100 Oxygen Delivery Nasal Cannula Oxygen Flow Rate 3 Intake/Output Intake/Output: Intake & Output 03/04/22 03/05/22 03/06/22 03/07/22 23:59 23:59 23:59 23:59 Intake Total 750 400 Balance 750 400 Meds/Results Medications: Active Medications Generic Name Dose Route Start Last Admin Trade Name Freq PRN Reason Stop Dose Admin Acetaminophen 650 mg 03/07/22 07:57 Acetaminophen 325 Mg Tablet PO Q6H PRN Mild Pain (1-3) or Fever Aspirin 81 mg 03/07/22 09:00 Aspirin 81 Mg Enteric Tablet PO DAILY JOHNSON Calcitriol 0.25 mcg 03/07/22 09:00 Calcitriol 0.25 Mcg Capsule PO
[2022-03-07] MEDS: HYDROcodone/acetaminophen (*CRX) 5-325 MG TABLET 1 TAB PO (08:06)
[2022-03-07] MEDS: ASPIRIN 81 MG ENTERIC TABLET PO (08:08)
[2022-03-07] MEDS: SEVELAMER CARBONATE 800 MG TABLET PO ×3 (08:08→17:09)
[2022-03-07] MEDS: TICAGRELOR 90 MG TABLET PO (08:09)
[2022-03-07] MEDS: calcitrioL 0.25 MCG CAPSULE PO (08:09)
[2022-03-07] MEDS: VITAMIN B CMPLX/VIT C/FOLIC AC 1 CAPSULE 1 CAP PO (08:09)
[2022-03-07] MEDS: PANTOPRAZOLE 40 MG TABLET PO (08:09)
[2022-03-07 08:10] VITALS: PULSE 72
[2022-03-07] MEDS: carvediloL 6.25 MG TABLET PO (08:10)
[2022-03-07] MEDS: INSULIN ASPART (*BKC) 100 UNITS/ML 7 UNITS SUB-Q ×3 (08:21→17:05)
[2022-03-07 08:25] LABS: Glucose Point of Care 207 mg/dl (65-105)
[2022-03-07] MEDS: INSULIN ASPART (*BKC) 100 UNITS/ML SUB-Q (08:26)
--- NOTE | 2022-03-07 10:17 | PC.NURSE ---
this nurse received a call from Ultrasound regarding clarification of orders placed by Dr. Hernandez for arterial duplex. Ultrasound wanted clarification if the orders should have been a doppler study with pressures. This nurse placed a call to Dr. Talley to clarify and was instructed verbally to instruct US that the pts. toe was black and to do what was necessary to determine blood flow. This nurse was instructed by Dr. Talley to change US orders per recommendations of ultrasound.
--- NOTE | 2022-03-07 10:22 | PC.NURSE ---
10:20pt. left the floor vis stretcher for ultrasound. IV saline locked
--- NOTE | 2022-03-07 11:34 | PC.NURSE ---
11:34 patient returned from ultrasound via stretcher
[2022-03-07 12:05] LABS: Glucose Point of Care 112 mg/dl (65-105)
[2022-03-07] MEDS: polyethylene glycoL 3350 238 GM BOTTLE PO (13:07)
[2022-03-07] MEDS: metroNIDAZOLE 500 MG/ISO 100ML 500 MG/100 ML BAG 100 MG IVPB (13:50)
[2022-03-07 14:00] VITALS: BP 116/58; PULSE 70; RESP 14; TEMP 36.4; O2SAT 100
[2022-03-07 17:06] LABS: Glucose Point of Care 182 mg/dl (65-105)
[2022-03-07 17:09] VITALS: O2SAT 100
--- NOTE | 2022-03-12 20:59 | PM.TDS ---
Transfer Discharge Sum: Prov Provider Date of admission: 03/06/22 20:45 Primary care physician: Christiano Ochoa, Admitting clinician: Denise Barr MD Consults: 03/07/22 Consult to Physician Routine Comment: Consulting Provider: Myron Estrada Reason for consultation: ESRD Has provider been notified: No DS: Admitting Diagnosis Discharge Date 03/07/22 Admitting Diagnosis (1) Abdominal pain: ?Qualifiers: ?Abdominal location:?right lower quadrant? Qualified Code(s):?R10.31 - Right lower quadrant pain ?Code(s): R10.9 - Unspecified abdominal pain ?Status:?Acute ?Assessment and Plan: ?CT of abdomen and pelvis significant for large amount of stool ?MiraLax a colon prep (2) Nausea & vomiting: ?Qualifiers: ?Vomiting type:?unspecified? Qualified Code(s):?R11.2 - Nausea with vomiting, unspecified ?Code(s): R11.2 - Nausea with vomiting, unspecified ?Status:?Acute ?Assessment and Plan: ?this could be multifactorial as patient is known to have gastroparesis as well as constipation evidenced on CT of abdomen and pelvis ?supportive care (3) Constipation: ?Code(s): K59.00 - Constipation, unspecified ?Status:?Acute ?Assessment and Plan: ?MiraLax colon Prep (4) End stage renal disease on dialysis: ?Code(s): N18.6 - End stage renal disease; Z99.2 - Dependence on renal dialysis ?Status:?Acute ?Assessment and Plan: ? Continue hemodialysis (5) Tobacco dependence: ?Code(s): F17.200 - Nicotine dependence, unspecified, uncomplicated ?Status:?Acute ?Assessment and Plan: ?nicotine patch as needed (6) Coronary disease: ?Code(s): I25.10 - Atherosclerotic heart disease of [place] coronary artery without angina pectoris ?Status:?Acute ?Assessment and Plan: ?chest pain-free (7) GERD (gastroesophageal reflux disease): ?Code(s): K21.9 - Gastro-esophageal reflux disease without esophagitis ?Status:?Acute ?Assessment and Plan: ?PPI as needed (8) Chronic osteomyelitis: ?Code(s): M86.60 - Other chronic osteomyelitis, unspecified site ?Status:?Chronic DS: Discharge Diagnosis Discharge Diagnosis (1) Constipation: Code(s): K59.00 - Constipation, unspecified Status: Acute (2) Hyponatremia: Code(s): E87.1 - Hypo-osmolality and hyponatremia Status: Acute (3) Diabetes mellitus: Code(s): E11.9 - Type 2 diabetes mellitus without complications Status: Acute (4) End stage renal disease on dialysis: Code(s): N18.6 - End stage renal disease; Z99.2 - Dependence on renal dialysis Status: Acute (5) Cellulitis of leg, right: Code(s): L03.115 - Cellulitis of right lower limb Status: Acute (6) Acute hyperglycemia: Code(s): R73.9 - Hyperglycemia, unspecified Status: Acute (7) Gangrene due to arterial insufficiency: Code(s): I77.1 - Stricture of artery; I96 - Gangrene, not elsewhere classified Status: Acute Transfer Discharge Sum: Med Medications Active and Home Medications: Home Medications aspirin 81 mg tablet,delayed release 81 mg PO DAILY 12/20/20 [History Confirmed 03/06/22] sevelamer carbonate 800 mg tablet 800 mg PO TIDWM 03/13/21 [History Confirmed 03/06/22] pantoprazole 40 mg tablet,delayed release 40 mg PO DAILY 09/03/21 [History Confirmed 03/06/22] calcitriol 0.25 mcg capsule (Rocaltrol) 0.25 mcg PO QAM 30 days #30 caps 11/14/21 [Rx Confirmed 03/06/22] carvedilol 6.25 mg tablet 6.25 mg PO Q12H 02/20/22 [History Confirmed 03/06/22] ticagrelor 90 mg tablet 90 mg PO Q12H 02/20/22 [History Confirmed 03/06/22] insulin glargine 100 unit/mL (3 mL) subcutaneous pen (Lantus Solostar U-100 Insulin) 10 unit subcut HS 02/28/22 [History Confirmed 03/06/22] insulin lispro 100 unit/mL subcutaneous pen (Humalog KwikPen (U-100) Insulin) 7 unit subcut TIDWMEAL 02/28/22 [History Confirmed 03/06/22] insu
== END 2022-03-07 19:30 ==
LOC: ANHED 18:57 → ANH2MED 21:39
PROVIDERS: Emergency Medicine; Admitting Provider Internal Medicine; Emergency Provider Emergency Medicine; PCP Internal Medicine; Visit Provider Hospitalist
DX: R10.31 Right lower quadrant pain (principal); R11.2 Nausea with vomiting, unspecified; K59.00 Constipation, unspecified; I13.2 Hypertensive heart and chronic kidney disease with heart failure and with stage 5 chronic kidney disease, or end stage renal disease; D63.1 Anemia in chronic kidney disease; I50.30 Unspecified diastolic (congestive) heart failure; N18.6 End stage renal disease; Z99.2 Dependence on renal dialysis; F17.210 Nicotine dependence, cigarettes, uncomplicated; I25.10 Atherosclerotic heart disease of native coronary artery without angina pectoris; K21.9 Gastro-esophageal reflux disease without esophagitis; E10.40 Type 1 diabetes mellitus with diabetic neuropathy, unspecified; L03.115 Cellulitis of right lower limb; G93.5 Compression of brain; Z95.5 Presence of coronary angioplasty implant and graft; E10.43 Type 1 diabetes mellitus with diabetic autonomic (poly)neuropathy; K31.84 Gastroparesis; E78.5 Hyperlipidemia, unspecified; N25.0 Renal osteodystrophy; R00.0 Tachycardia, unspecified; I73.9 Peripheral vascular disease, unspecified; Z89.429 Acquired absence of other toe(s), unspecified side; Z90.49 Acquired absence of other specified parts of digestive tract; Z86.73 Personal history of transient ischemic attack (TIA), and cerebral infarction without residual deficits; Z20.822 Contact with and (suspected) exposure to COVID-19; N26.1 Atrophy of kidney (terminal); R63.0 Anorexia; Z68.25 Body mass index [BMI] 25.0-25.9, adult; M25.40 Effusion, unspecified joint; M79.89 Other specified soft tissue disorders; E87.1 Hypo-osmolality and hyponatremia; E10.65 Type 1 diabetes mellitus with hyperglycemia; E10.69 Type 1 diabetes mellitus with other specified complication; Z79.4 Long term (current) use of insulin; Z79.02 Long term (current) use of antithrombotics/antiplatelets; Z79.82 Long term (current) use of aspirin; Z79.899 Other long term (current) drug therapy
CPT/HCPCS: 36415; 74177; 80053; 82948; 83605; 83690; 85025; 87040; 93923; 96365; 96375; 99285; A9270; C9803; G0378; J0692; J1815; J2405; J3010; J3370; J7040; Q9967; U0003; U0005

== ENCOUNTER 2022-05-02 10:21 | Inpatient (IN) | payer OTHER, MEDICARE, MEDICAID, SELFPAY ==
[2022-05-02] VITALS (31 sets, daily range): BP systolic 114–159; BP diastolic 48–84; PULSE 84–107; RESP 14–36; TEMP 36.7–37.7; O2SAT 95–100; BMI 23.3
--- NOTE | ~2022-05-02 | XR_ITS ---
XR chest 2V 05/02/2022 14:13 Indication: Diabetic ketoacidosis. Sepsis. Procedure: AP and lateral views of the chest Comparison: Comparison to multiple prior studies sequentially, with oldest reviewed study dated 12/17. Findings: Status post median sternotomy for CABG. There is a coronary artery stent. Cardiomegaly. The re is lingular atelectasis. No focal pneumonia, edema or effusion. No acute osseous abnormality. Impression: 1: Lingular atelectasis. 2: Cardiomegaly. Reviewed, dictated and finalized at location A. Impression: 1: Lingular atelectasis. 2: Cardiomegaly.
--- NOTE | ~2022-05-02 | CT_ITS ---
EXAMINATION: CT brain wo con DATE: 05/02/2022 13:41 INDICATION: Altered mental status TECHNIQUE: Computed tomography (CT) of the head was performed without intravenous contrast. Sagittal and coronal reconstructions were performed. The mA was adjusted according to patient size. Iterative reconstruction technique was employed. The dose-length product was 605.33 mGy-cm. COMPARISON: head CT dated 11/08/2021 and brain MR dated 09/03/2021 FINDINGS: No acute intracranial hemorrhage, acute infarction or abnormal extra axial fluid collection. There is mild scattered white matter hypoattenuation consistent with chronic small vessel ischemic disease. V entricles are normal and symmetric. No mass/mass effect. Chronic Chiari I malformation with low-lying bilateral cerebellar tonsils which extend below the level of the foramen magnum to the level of the posterior ring of C1. Changes of bilateral intraocular lens replacement. The orbits and paranasal sin uses are normal. Small right and trace left mastoid effusions. IMPRESSION: 1. No acute intracranial process. 2. Unchanged mild scattered white matter hypoattenuation consistent with chronic small vessel ischemi c disease. 3. Chiari I malformation. Reviewed, dictated and finalized at location B. IMPRESSION: 1. No acute intracranial process. 2. Unchanged mild scattered white matter hypoattenuation consistent with chroni c small vessel ischemic disease. 3. Chiari I malformation.
--- NOTE | ~2022-05-02 | CT_ITS ---
EXAMINATION: CT abdomen pelvis w con DATE: 05/02/2022 13:40 INDICATION: Abdominal pain. Vomiting. TECHNIQUE: Computed tomography (CT) of the abdomen and pelvis was performed with 100 mL Omnipaque 350 intravenous contrast. Automated exposure control and iterative reconstruction technique were employe d. The dose-length product was 570.33 mGy-cm. COMPARISON: CT abdomen and pelvis 03/06/2022 FINDINGS: The visualized portions of the lung bases demonstrate mild atelectasis. No pleural effusion . Cardiomegaly is noted. There are coronary artery calcifications. No pericardial effusion. Median st ernotomy wires are noted. There is wall thickening of the distal esophagus. The liver is normal. Ther e is an infarct in the spleen. There are changes of cholecystectomy. The pancreas and adrenal glands are normal. There is mild atrophy of the kidneys. There are widespread arterial calcifications. Stool distends the rectum. The appendix is normal. There are no pathologically enlarged lymph nodes. There is no free intraperitoneal fluid. Body wall edema is noted. There are erosions of the sacroiliac lukasz nts, likely secondary hyperparathyroidism. There is mild thoracolumbar spondylosis. IMPRESSION: 1. Peripheral infarct in the spleen. 2. Stool distends the rectum. 3. Wall thickening of the distal esophagus, consistent with esophagitis. Reviewed, dictated and finalized at location A.
--- NOTE | 2022-05-02 11:23 | ED.NAVMDI ---
HPI - Nausea/Vomiting/Diarrhea General Chief complaint: Nausea/Vomiting/Diarrhea Stated complaint: Vomiting x2 days Time Seen by Provider: 05/02/22 11:23 Source: patient Mode of arrival: ambulatory Limitations: clinical condition History of Present Illness HPI Narrative: Patient is a 46-year-old female with a history of type 1 diabetes, end-stage renal disease on Friday dialysis, chronic osteomyelitis, anemia, coronary artery disease, gastroparesis, TIA, presenting to the emergency department for evaluation of general malaise and intractable nausea and vomiting. Patient states that she has felt unwell worsening over the past 72 hours. Patient states started to become nauseated with multiple episodes of nonbloody, nonbilious emesis yesterday. Patient states she has been not been taking any of her medications and not been monitoring her glucose levels. Patient denies fever, chills, she does report mild rhinorrhea and congestion. She denies recent sick contacts. Patient does have chronic osteomyelitis to right lower extremity due to arterial insufficiency, gangrene; patient follows with Dr. Howard Ríos at [facility]. Patient with recent debridement 04/29, wound VAC present on right stump. 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 Forbes. Related Data Home Medications Medication Instructions Recorded Confirmed aspirin 81 mg tablet,delayed 81 mg PO DAILY 12/20/20 05/02/22 release sevelamer carbonate 800 mg tablet 800 mg PO TIDWM 03/13/21 03/06/22 pantoprazole 40 mg tablet,delayed 40 mg PO DAILY 09/03/21 03/06/22 release carvedilol 6.25 mg tablet 6.25 mg PO Q12H 02/20/22 05/02/22 ticagrelor 90 mg tablet 90 mg PO Q12H 02/20/22 03/06/22 insulin glargine 100 unit/mL (3 10 unit subcut HS 02/28/22 03/06/22 mL) subcutaneous pen (Lantus Solostar U-100 Insulin) insulin lispro 100 unit/mL 7 unit subcut TIDWMEAL 02/28/22 03/06/22 subcutaneous pen (Humalog KwikPen (U-100) Insulin) insulin lispro 100 unit/mL See Protocol subcut TIDWMEAL 09/01/22 09/07/22 subcutaneous solution (Humalog U-100 Insulin) vitamin B complex-vitamin C-folic 0.8 tablet PO DAILY 03/06/22 05/02/22 acid 0.8 mg tablet (Renal Vitamin) Allergies Allergy/AdvReac Type Severity Reaction Status Date / Time No Known Drug Allergies Allergy Unknown Verified 02/25/22 19:45 Review of Systems Review of Systems: CONSTITUTIONAL: Denies fever, chills, or sweats. EYES: Denies visual changes, redness, or discharge. ENT: Denies rhinorrhea, congestion, sore throat, or otalgia. CARDIOVASCULAR: Denies chest pain, palpitations, or edema. RESPIRATORY: Denies cough, reports mild shortness of breath GASTROINTESTINAL: Reports abdominal pain, nausea, vomiting, denies diarrhea GENITOURINARY: Patient reports she does make a small amount of urine, denies dysuria or hematuria SKIN: Denies rash or itching. MUSCULOSKELETAL: Denies back pain, joint pain, or myalgia. NEUROLOGIC: Denies headache, numbness, patient reports feeling generally weak, denies focal weakness or numbness PMFSH Past Medical History Medical History Anasarca Cerebrovascular accident Small old lacunar infarct at the head of the right caudate nucleus. Chiari I malformation Chronic osteomyelitis Status post toe amputations Congestive heart failure Coronary artery disease Status post stent to the right coronary artery in August 2020. End-stage renal disease on hemodialysis On dialysis since June 2019. Erythropoietin deficiency anemia Esophagitis determined by endoscopy (12/2019) Gastroparesis due to DM Hyperlipidemia Renal osteodystrophy Surgical History Surgical History Amputation of toe Two on the left AV fistula Left forearm History of section, classical X2 History of coronary artery stent placement History of laparoscopic cholecystectomy (
[2022-05-02 11:44] LABS: Glucose Point of Care > 500 mg/dl (65-105)
--- NOTE | 2022-05-02 12:00 | PC.NURSE ---
iv attempts x 2 unsuccessful. pravin villar contacted.
--- NOTE | 2022-05-02 12:05 | ECG_ITS ---
Measurements Intervals [place] Rate: 102 P: 54 NV: 140 QRS: 7 QRSD: 146 T: 111 QT: 396 QTc: 517 Interpretive Statements SINUS TACHYCARDIA POSSIBLE LEFT ATRIAL ENLARGEMENT LEFT BUNDLE BRANCH BLOCK ANTEROSEPTAL INFARCT OR DUE TO LBBB BASELINE ARTIFACT- I, III, AVR, AVL, AVF, V6 ABNORMAL ECG COMPARED TO ECG 12/27/2021 14:53:34 SINUS TACHYCARDIA NOW PRESENT LEFT BUNDLE BRANCH BLOCK NOW PRESENT Electronically Signed On 05-02-2022 14:19:44 CDT by Misael Ahmadi D.O.
--- NOTE | 2022-05-02 12:30 | PC.NURSE ---
pravin ramey rn unable to esatablish iv access with ultrasound. dr tse aware. cental line kit placed at bedside
[2022-05-02 12:53] LABS: Base Excess ABG 12.2 mEq/l (+/-2.0); Carboxyhemoglobin 1.4 % THb (0-2.0); Fractional Inspired Oxygen 21 %; HCO3 ABG 33.9 mEq/l (22.0-26.0); Methemoglobin ABG 0.3 %THb (0-1.5); Oxygen Content ABG 14.1 %vol (16.0-22.0); Oxygen Saturation ABG 95.2 % (95.0-100.0); Oxyhemoglobin 91.5 % THb (90.0-100.0); PO2 ABG 61.2 mmHg (80.0-100.0); PO2 FiO2 Ratio Arterial Blood 2.91 %; Reduced Hemoglobin 6.8 %THb (0-5.0); Total Hemoglobin 10.9 g/dL (12.0-18.0)
[2022-05-02 12:54] LABS: Site Drawn RIGHT BRACHIAL; pH ABG 7.629 (7.350-7.450)
[2022-05-02] MEDS: ONDANSETRON INJ 4 MG/2 ML VIAL IV PUSH (13:09)
[2022-05-02] MEDS: SODIUM CHLORIDE 0.9% IV 1,000 ML 999 ML IV CONT (13:09)
[2022-05-02 13:18] LABS: Basophils Percent Auto 0.2 % (0.2-1.2); Hematocrit 29.6 % (37.0-47.0); Hemoglobin 9.2 g/dL (12.0-15.0); Immature Granulocyte Absolute 0.17 K/mm3 (0.00-0.031); Lymphocytes Absolute Auto 0.96 K/mm3 (0.9-3.2); Lymphocytes Percent Auto 5.8 % (18.3-44.2); Mean Corpuscular HGB Conc 31.1 g/dl (32-36); Mean Corpuscular Hemoglobin 30.8 pg (26-34); Mean Platelet Volume 9.9 fl (7.4-10.4); Monocytes Percent Auto 6.1 % (2.6-8.5); Neutrophils Absolute Auto 14.5 K/mm3 (1.3-6.7); Neutrophils Percent Auto 86.9 % (45.5-73.1); Nucleated Red Blood Cells Perc 0.2 % (0.0-0.2); Platelet Count Result 395 k/mm3 (150-375); Red Blood Count 2.99 M/mm3 (4.2-5.4); Red Cell Distribution Width 16.9 % (11.5-14.5); White Blood Count 16.6 K/mm3 (4.5-10.0)
[2022-05-02 13:45] LABS: Magnesium 1.8 mg/dL (1.6-2.3); Phosphorus 5.5 mg/dL (2.5-4.5)
[2022-05-02 13:55] LABS: Alanine Aminotransferase 35 U/L (6-35); Albumin Level 4.3 g/dL (3.5-5.1); Alkaline Phosphatase 257 U/L (38-126); Anion Gap 23 mmol/L (8-16); Aspartate Amino Transferase 37 U/L (14-36); Blood Urea Nitrogen 41 mg/dL (7-17); Calcium 8.6 mg/dL (8.4-10.2); Carbon Dioxide 37 mmol/L (22-30); Chloride 72 mmol/L (98-107); Estimated CRCL calculation 12 ml/min; Estimated Glomerular Filt Rate 8; Glucose 500 mg/dL (65-110); Lipase 73 U/L (23-300); Potassium 4.9 mmol/L (3.4-5.0); Sodium 132 mmol/L (137-145)
[2022-05-02 13:57] LABS: Lactic Acid Reflex 3.1 mmol/L (0.7-2.0)
[2022-05-02 14:21] LABS: Influenza A QL RT-PCR Negative (Negative); Influenza B QL RT-PCR Negative (Negative); SARS-CoV-2 RNA PCR Negative
[2022-05-02 14:29] LABS: Beta-Hydroxybutyrate/Acetoacetate 6.08 mmol/L (0.02-0.27)
[2022-05-02 14:31] LABS: CRP 1.1 mg/dL (<1.0)
[2022-05-02] MEDS: METOCLOPRAMIDE HCL INJ 10 MG/2 ML VIAL IV PUSH (14:37)
[2022-05-02 14:42] LABS: Troponin I 0.361 ng/mL (0.000-0.034)
[2022-05-02] MEDS: LACTATED RINGERS 1,000 ML 999 ML IV CONT (14:48)
[2022-05-02 14:55] LABS: Ammonia < 9 umol/L (9-30); Ethanol < 10 mg/dL (<10)
[2022-05-02 14:57] LABS: INR 1.4; Prothrombin Time 16.2 Seconds (11.1-14.7)
[2022-05-02 14:58] LABS: Partial Thromboplastin Time 30.8 SECONDS (22.3-36.8)
[2022-05-02 15:52] LABS: Glucose Point of Care 477 mg/dl (65-105)
[2022-05-02 16:16] LABS: Reflex Lactic Acid Yes or No Add Lactic
[2022-05-02] MEDS: INSULIN HUMAN REGULAR (*BKC) 100 UNITS in SODIUM CHLORIDE 0.9% IV 99 ML 8.8 UNITS IV CONT (17:45)
[2022-05-02] MEDS: INSULIN HUMAN REGULAR (*BKC) 100 UNITS/ML 8 UNITS IV PUSH (17:46)
--- NOTE | 2022-05-02 17:53 | PM.CNNEP ---
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 Benign essential hypertension with hypertensive renal disease Anemia of chronic kidney disease Secondary hyperparathyroidism Type 1 diabetes mellitus with hyperglycemia Excess activation of diabetic gastroparesis with nausea and vomiting, precipitating dehydration and alkalotic situation Plan: -no fluid removal tomorrow at dialysis, caution with dialysis -treat gastroparesis -control sugars -discussed with hospitalist team -will follow-up History of Present Illness Reason for Consult Consult date: 05/02/22 Reason for consult: end stage renal disease Chief Complaint Chief complaint: Hyperglycemia/Dehydration/Severe Sepsis History of Present Illness Narrative: 46-year-old white female with a history of ESRD on the basis of diabetes mellitus type 1 and nephropathy, hypertension. She has terrible gastroparesis and comes in with nausea and vomiting over the last several days. She is hyperglycemic as well. She has been noted to precipitate gastroparesis exacerbation whenever she becomes hypoglycemic. No fevers or chills. Has abdominal pain. She has not eaten much. She had partial dialysis treatment yesterday. She is being admitted for further management in light of her diabetic situation and nausea and vomiting and inability to take oral nutrition and hydration. She is not feeling that well. Denies any fevers or chills. Some shortness of breath. She has some abdominal discomfort. No diarrhea. Review of Systems Review of Systems: Limited but all of the systems are negative obtain to the extent possible. [facility] Past Medical History Medical History Anasarca Cerebrovascular accident Small old lacunar infarct at the head of the right caudate nucleus. Chiari I malformation Chronic osteomyelitis Status post toe amputations Congestive heart failure Coronary artery disease Status post stent to the right coronary artery in August 2020. End-stage renal disease on hemodialysis On dialysis since June 2019. Erythropoietin deficiency anemia Esophagitis determined by endoscopy (12/2019) Gastroparesis due to DM Hyperlipidemia Renal osteodystrophy Surgical History Surgical History Amputation of toe Two on the left AV fistula Left forearm History of section, classical X2 History of coronary artery stent placement History of laparoscopic cholecystectomy (03/15/21) History of myringotomy History of repair of rotator cuff History of tonsillectomy and adenoidectomy History of tubal ligation Hx of myringotomy Status post lateral meniscus repair Family History Family History Other Adopted Social History Social History Social History: She has 2 children and she lives with her of 28 years. She is on disability. She smoked up to a pack of cigarettes a day since the age of 16 but now smokes about a 4th a pack a day. She denies alcohol and illicit substance abuse. Surrogate decision maker: Diana Bhat, spouse. Code status: Full code. Smoking packs per day: 1 Smoking cigarettes per day: 20.0 Years smoked: 25 Smoking pack-years: 25.00 Smoking status: Current every day smoker Second hand tobacco smoke exposure: Yes Additional smoking assessment comments: Smoked 1 pack a day since 16. Currently at 0.25 pack per day Alcohol intake: never Drinks per week: 0 Substance use: n
[2022-05-02 17:59] LABS: Glucose Point of Care 474 mg/dl (65-105)
[2022-05-02] MEDS: LORazepam INJ (*CRX) 2 MG/ML VIAL 0.5 MG IV PUSH (18:21)
[2022-05-02 19:03] LABS: Appearance Urine Clear (Clear); Bilirubin Urine Negative (Negative); Blood Urine Trace-intact (Negative); Color Urine Yellow (Yellow); Glucose Urine UA 2+ mg/dL (Negative); Ketones Urine 2+ mg/dL (Negative); Leukocyte Esterase Ur Negative LEU/UL (Negative); Nitrate Urine Negative (Negative); Protein Urine 3+ mg/dL (Negative); Specific Grav Ur 1.015 (1.001-1.035); Urobilinogen Urine 0.2 mg/dL (<2.0); pH Urine 8.5 (5.0-9.0)
[2022-05-02 19:20] LABS: Glucose Point of Care 340 mg/dl (65-105)
[2022-05-02 19:21] LABS: Squamous Epithelial Cell Urine Occasional /hpf (Few); WBC Urine 0-3 /hpf
[2022-05-02 19:32] LABS: Add Urine Microscopic? YES
[2022-05-02] MEDS: HEPARIN SOD/D5W 100 UNITS/ML 25,000 UNITS/250 ML BAG 12 UNITS IV CONT (19:34)
[2022-05-02 19:37] LABS: Lactic Acid 4.8 mmol/L (0.7-2.0)
--- NOTE | 2022-05-02 19:38 | WPDPROCEDUR ---
Procedures Central Line Placement Left Femoral: Central Line Date: 05/02/22 Central Line Time: 18:30 Discussed w/ the patient/family/POA,the placement of a central venous catheter, including its clinical necessity/indication & associated potential risks, benifits and alternatives.: Yes The patient/family/POA understand(s) and acknowledge(s) the need to proceed with central venous catheter insertion as an important element of the patient's clinical management.: Yes Consent: I have discussed with the patient and/or surrogate, the non-emergent placement of a central venous catheter, including its clinical necessity/indication and associated potential risks and complications. The patient and/or surrogate understand(s) and acknowledge(s) the need to proceed with central venous catheter insertion as an important element of the patient's clinical management. Time Out Performed: Yes Patient Position: supine Patient placed on monitor/pulse ox: Yes Provider Prep: Max. sterile barrier precautions Central line prep: 2% Chlorhexidine scrub Local anesthesia used: lidocaine 2% Amount of anesthesia used (ml): 5 Sterile US Technique with sterile gel/sterile probe covers: Yes Central line lumen inserted: triple Japanese: 7 Length (cm): 16 Depth of Insertion (cm): 16 Post Procedure: sutured in place, good blood return, all ports aspirated, flushed, capped, transparent dressing and antimicrobial product Additional comments: No x-ray required as it is a femoral line. Patient had been premedicated with Ativan and slept through the procedure.
--- NOTE | 2022-05-02 19:40 | PM.IMHP ---
H&P: HPI History of Present Illness Date/Time: 05/02/22 19:40 Chief Complaint: Nausea vomiting Narrative: This is a 46-year-old female patient have a has a history of diabetes type 1. The patient has a history of gastroparesis. She also has a history of arterial insufficiency. The patient was transferred from here on 03/12/2022 for vascular surgeon. The patient now has a wound VAC to her right [id number] amputation with sutures and a wound VAC. she has dialysis on Friday and typically sees Dr. Forbes. Dr. Forbes was in the emergency room seeing the patient. She has a history of chronic osteomyelitis, anemia coronary artery disease gastroparesis and TIA. The patient has been feeling unwell and became worse over the last 72 hours. The patient became nauseated with multiple episodes of nonbloody non bolus emesis. Yesterday. She denies any fever chills or any diarrhea. The patient had a recent debridement on 04/29 with a wound VAC to her right stump. Her white count is 16.6. H&H is 9.2 and 29.6. Arterial blood gases pH is 7.629 CO2 was 33.0 PO2 61.2. We did place her on oxygen at 2 L per nasal cannula. Sodium 132. BUN 41 creatinine 5.4. Blood sugar was greater than 500 that he came down to 477 and then 340. Lactic was 3.1 and came up to 4.8. I spoke to Dr. Forbes who was agreeable to 1 L of IV bolus. Dr. Forbes stated that the patient will have dialysis tomorrow. Troponin 0.361 and 0.526. Patient's beta hydroxybutyrate as he had acetate was 6.08. The patient was started on an insulin drip. Patient was started on vancomycin and cefepime. Chest x-ray was read as lingular atelectasis. Cardiomegaly. Abdominal pelvis CT was read as peripheral infarct in the spleen. Stool distends the rectum. Wall thickening of the distal esophagus consistent with esophagitis. The patient is somewhat confused her head CT was read as no acute intracranial process. Unchanged mild scattered white matter hypoattenuation consistent with chronic small vessel ischemic disease. Chiari 1 malformation. Patient's surgeon was called at [facility] and suggested heparin drip for her his splenic infarct and broad-spectrum antibiotics. Venous access was difficult in the emergency room in and left EJ was placed. However the patient has multiple antibiotics as well as an insulin drip and heparin drip with poor access. I was able to insert central line into the left femoral area. Please see procedure note. The patient is being admitted to ICU on the date of service of 05/02/2022. Review of Systems Review of Systems: See HPI All systems reviewed & are unremarkable except as noted in HPI and below Constitutional: Constitutional: Reports as per HPI and Reports no additional constitutional complaints Eyes: Eyes: Reports as per HPI and Reports no additional eye complaints ENT: Reports system reviewed and no additional complaints, except as documented and Reports Normal hearing present Cardiovascular: Cardiovascular: Reports no additional cardiovascular complaints Respiratory: Respiratory: Reports no additional respiratory complaints and Reports no additional respiratory complaints Gastrointestinal: Gastrointestinal: Reports as per HPI and Reports no additional gastrointestinal complaints Musculoskeletal: Musculoskeletal: Reports no additional musculoskeletal complaints Integumentary/Breasts: Skin/Breast: Reports system reviewed and no additional complaints, except as docu and Reports as per HPI Neurologic: Reports system reviewed and no additional complaints, except as documented, Reports as per HPI and Reports Normal hearing present Psychiatric: Psychiatric: Reports no additional psychiatric complaints and Reports as per HPI Endocrine: Endocrine: Reports no additional endocrine complaints Hematologic/Lymphatic: Hematologic/Lymphatic: Reports no additional hematologic/lymphatic complaints Allergic/Immunologic: Allergic/Immunologic: Reports
[2022-05-02 19:43] LABS: INR 1.3; Prothrombin Time 16.1 Seconds (11.1-14.7)
[2022-05-02 19:44] LABS: Partial Thromboplastin Time 30.9 SECONDS (22.3-36.8)
[2022-05-02 19:48] LABS: Troponin I 0.526 ng/mL (0.000-0.034)
[2022-05-02 20:27] LABS: Glucose Point of Care 233 mg/dl (65-105)
[2022-05-02 21:07] LABS: Blood Urea Nitrogen 45 mg/dL (7-17); Calcium 8.2 mg/dL (8.4-10.2); Carbon Dioxide > 40 mmol/L (22-30); Chloride 74 mmol/L (98-107); Estimated CRCL calculation 12 ml/min; Estimated Glomerular Filt Rate 8; Glucose 196 mg/dL (65-110); Potassium 4.3 mmol/L (3.4-5.0); Sodium 138 mmol/L (137-145)
[2022-05-02 21:21] LABS: Troponin I 0.875 ng/mL (0.000-0.034)
--- NOTE | 2022-05-02 21:45 | ADMGEN ---
This patient, Pamela Bhat, was admitted to Intensive Care Unit-8. Patient/family oriented to hospital policies and general routines including ID bracelet, bed and alarms, visiting hours, pain management, procedures, bathroom and other care routines, personal items, smoking policy, room service/diet, and visiting hours. Information on how to activate the Rapid Response Team has been discussed. Patient/Family are encouraged to report perceived risks to care and to ask questions if they do not understand what they are told or what they should do.
[2022-05-02] MEDS: TICAGRELOR 90 MG TABLET PO (22:10)
[2022-05-02] MEDS: carvediloL 6.25 MG TABLET PO (22:10)
[2022-05-02] MEDS: INSULIN GLARGINE (*BKC) 100 UNITS/ML 10 UNITS SUB-Q (22:11)
[2022-05-02] MEDS: CENTRAL LINE FLUSH 10 ML IV PUSH (22:11)
[2022-05-02 22:22] LABS: Glucose Point of Care 103 mg/dl (65-105)
[2022-05-03] VITALS (13 sets, daily range): BP systolic 100–132; BP diastolic 51–75; PULSE 76–89; RESP 11–18; TEMP 36.5–37.7; O2SAT 90–100
[2022-05-03] LABS: Glucose Point of Care 42 mg/dl (65-105)
[2022-05-03] MEDS: DEXTROSE 50% 25 GM/50 ML SYRINGE IV PUSH (00:02)
[2022-05-03 00:29] LABS: Glucose Point of Care 72 mg/dl (65-105)
[2022-05-03 01:47] LABS: Glucose Point of Care 70 mg/dl (65-105)
[2022-05-03 02:08] LABS: Partial Thromboplastin Time 73.9 SECONDS (22.3-36.8)
[2022-05-03 02:38] LABS: Glucose Point of Care 78 mg/dl (65-105)
[2022-05-03 04:00] LABS: Glucose Point of Care 76 mg/dl (65-105)
[2022-05-03 04:10] LABS: Basophils Absolute Auto 0.1 K/mm3 (0.0-0.1); Basophils Percent Auto 0.3 % (0.2-1.2); Eosinophils Percent Auto 0.2 % (0-4.4); Hematocrit 26.6 % (37.0-47.0); Hemoglobin 8.3 g/dL (12.0-15.0); Immature Granulocyte Absolute 0.14 K/mm3 (0.00-0.031); Immature Granulocyte Percent A 0.8 % (0-0.5); Lymphocytes Absolute Auto 1.48 K/mm3 (0.9-3.2); Mean Corpuscular HGB Conc 31.2 g/dl (32-36); Mean Corpuscular Hemoglobin 31.1 pg (26-34); Mean Corpuscular Volume 99.6 fl (80-100); Mean Platelet Volume 9.6 fl (7.4-10.4); Monocytes Absolute Auto 1.1 K/mm3 (0.1-0.6); Monocytes Percent Auto 5.9 % (2.6-8.5); Neutrophils Absolute Auto 15.7 K/mm3 (1.3-6.7); Neutrophils Percent Auto 84.8 % (45.5-73.1); Nucleated Red Blood Cells Perc 0.1 % (0.0-0.2); Platelet Count Result 287 k/mm3 (150-375); Red Blood Count 2.67 M/mm3 (4.2-5.4); Red Cell Distribution Width 17.1 % (11.5-14.5); White Blood Count 18.5 K/mm3 (4.5-10.0)
[2022-05-03 04:21] LABS: Lactic Acid Reflex 1.1 mmol/L (0.7-2.0)
[2022-05-03 04:26] LABS: Alanine Aminotransferase 27 U/L (6-35); Albumin Level 3.5 g/dL (3.5-5.1); Alkaline Phosphatase 179 U/L (38-126); Aspartate Amino Transferase 30 U/L (14-36); Bilirubin,Total 0.6 mg/dL (0.2-1.3); Blood Urea Nitrogen 48 mg/dL (7-17); Calcium 7.9 mg/dL (8.4-10.2); Carbon Dioxide > 40 mmol/L (22-30); Chloride 76 mmol/L (98-107); Estimated CRCL calculation 9 ml/min; Estimated Glomerular Filt Rate 7; Glucose 90 mg/dL (65-110); Lipase 115 U/L (23-300); Phosphorus 5.8 mg/dL (2.5-4.5); Potassium 4.9 mmol/L (3.4-5.0); Sodium 135 mmol/L (137-145)
[2022-05-03] MEDS: CENTRAL LINE FLUSH 10 ML IV PUSH ×3 (04:26→21:26)
[2022-05-03 05:36] LABS: Glucose Point of Care 103 mg/dl (65-105)
[2022-05-03 06:20] LABS: Glucose Point of Care 87 mg/dl (65-105)
[2022-05-03 07:32] LABS: Glucose Point of Care 112 mg/dl (65-105)
--- NOTE | 2022-05-03 07:57 | WPDCNINT ---
Assessment and Plan Assessment and plan (1) Diabetic ketoacidosis: Code(s): E11.10 - Type 2 diabetes mellitus with ketoacidosis without coma Status: Acute Assessment and Plan: Patient presented with nausea, vomiting, diarrhea, decreased p.o. intake, unable to take any of her medications. Was found to be in diabetic ketoacidosis with elevated anion gap metabolic acidosis, positive beta hydroxybutyrate, hyperglycemia -patient was given 1 L IV fluid bolus in the ER, started on insulin infusion -overnight patient's blood sugars were in the 70s to 90s, insulin infusion was discontinued -start sliding scale insulin, diabetic diet -continue Accu-Cheks -last hemoglobin A1c was 7.6 on 12/17/2021 (2) SIRS (systemic inflammatory response syndrome): Code(s): R65.10 - Systemic inflammatory response syndrome (SIRS) of non-infectious origin without acute organ dysfunction Status: Acute Assessment and Plan: Patient presented with nausea vomiting and diarrhea, lactic acid was 4.8, leukocyte -likely related to stress response from diabetic ketoacidosis and along with recent debridement of this right stump and placement of the wound VAC -patient started on cefepime and vancomycin 05/02 -blood cultures have been obtained and pending (3) End stage renal disease on dialysis: Code(s): N18.6 - End stage renal disease; Z99.2 - Dependence on renal dialysis Status: Acute Assessment and Plan: End-stage renal disease on dialysis (M, W, F ) -Dr Forbes, is her cellular equipment installer -likely will get dialyzed today (4) Infarction of spleen: Code(s): D73.5 - Infarction of spleen Status: Acute Assessment and Plan: 05/02: CT scan of the abdomen and pelvis showed infarct peripheral infarct in the spleen, the ER physician did discuss with patient's surgeon at [facility] who recommended starting heparin infusion and broad-spectrum antibiotics -patient was started on heparin infusion -cefepime and vancomycin was started on 05/02/2022 Plan DVT prophylaxis: Heparin infusion Stress ulcer prophylaxis: Protonix Nutrition: Diabetic and renal diet Code Status: Full code Critical Care Time Spent: 44 minute Due to a high probability of clinically significant, life threatening deterioration, the patient required my highest level of preparedness to intervene emergently and I personally spent this critical care time directly and personally managing the patient. This critical care time included obtaining a history; examining the patient; pulse oximetry; ordering and review of studies; arranging urgent treatment with development of a management plan; evaluation of patient's response to treatment; frequent reassessment; and discussions with other providers. It was exclusive of separately billable procedures and treating other patients and teaching time. Please see Assessment and Plan section and the rest of the note for further information on patient assessment and treatment [employer] Consult Note Consult date: 05/03/22 Reason for consult: Diabetic ketoacidosis, splenic infarct, nausea, vomiting abdominal pain HPI: Pamela Bhat is a 46 year old female with significant past medical history of CVA, coronary artery disease, Chiari 1 malformation, chronic osteomyelitis status post right BKA, diabetes, end-stage renal disease on HD, esophagitis gastroparesis, hyperlipidemia, congestive heart failure presented the ED on 05/02/2022 with complains of nausea, vomiting and diarrhea along with abdominal pain. Patient states she has been feeling unwell for the last 3 days and had multiple episodes of nonbloody, nonbilious emesis along with nausea. She has not been able to take any of her medications for monitor blood sugars. In the ED patient's blood sugars were in the 500s, positive beta hydroxybutyrate, lactic acid of 4.8, elevated anion gap. Chest x-ray showed lingular atelectasis and cardiomegaly. CT scan of
[2022-05-03] MEDS: ONDANSETRON INJ 4 MG/2 ML VIAL IV PUSH (08:29)
[2022-05-03 09:03] LABS: Partial Thromboplastin Time 29.2 SECONDS (22.3-36.8)
[2022-05-03] MEDS: HEPARIN SODIUM 5,000 UNITS/ML VIAL 5000 UNITS IV PUSH (09:19)
[2022-05-03] MEDS: PANTOPRAZOLE SODIUM IV 40 MG VIAL IV PUSH (10:30)
[2022-05-03 11:41] LABS: Glucose Point of Care 119 mg/dl (65-105)
[2022-05-03] MEDS: METOCLOPRAMIDE HCL INJ 10 MG/2 ML VIAL 5 MG IV PUSH ×2 (11:43→23:37)
[2022-05-03] MEDS: HEPARIN SOD/D5W 100 UNITS/ML 25,000 UNITS/250 ML BAG 15 UNITS IV CONT (15:19)
[2022-05-03 16:25] LABS: Glucose Point of Care 170 mg/dl (65-105)
[2022-05-03 16:55] LABS: Partial Thromboplastin Time 154.1 SECONDS (22.3-36.8)
--- NOTE | 2022-05-03 17:15 | PC.NURSE ---
Pt transfer received from ICU to room 261.
[2022-05-03] MEDS: INSULIN GLARGINE (*BKC) 100 UNITS/ML 10 UNITS SUB-Q (21:25)
[2022-05-03] MEDS: carvediloL 6.25 MG TABLET PO (21:25)
[2022-05-03] MEDS: TICAGRELOR 90 MG TABLET PO (21:25)
[2022-05-03] MEDS: SEVELAMER CARBONATE 800 MG TABLET PO (21:25)
[2022-05-03 21:32] LABS: Glucose Point of Care 211 mg/dl (65-105)
--- NOTE | 2022-05-03 21:34 | PC.NURSE ---
Spoke with Tosha from [facility] dialysis who stated that they where not informed that patient needed dialysis, but that they would be here tomorrow and perform dialysis.
[2022-05-03 23:01] LABS: Vancomycin Random 14.3 ug/mL (10-20)
[2022-05-04] VITALS (17 sets, daily range): BP systolic 112–152; BP diastolic 47–80; PULSE 74–85; RESP 14–18; TEMP 36–36.9; O2SAT 96–98
[2022-05-04 01:41] LABS: Partial Thromboplastin Time 73.6 SECONDS (22.3-36.8)
--- NOTE | 2022-05-04 01:45 | PC.NURSE ---
0145 RECEIVED APTT RESULTS FROM LAB. 73.6 NO NEED TO CHANGE RATE PER PROTOCOL. WILL PUT IN REDRAW FOR 1746
[2022-05-04] MEDS: CENTRAL LINE FLUSH 10 ML IV PUSH ×4 (05:24→20:59)
[2022-05-04] MEDS: METOCLOPRAMIDE HCL INJ 10 MG/2 ML VIAL 5 MG IV PUSH ×3 (05:24→17:04)
[2022-05-04 08:57] LABS: Glucose Point of Care 88 mg/dl (65-105)
[2022-05-04] MEDS: SODIUM CHLORIDE 0.9% IV 1,000 ML 999 ML IV CONT (11:49)
[2022-05-04] MEDS: ATORVASTATIN 40 MG TABLET 80 MG PO (13:05)
[2022-05-04] MEDS: calcitrioL 0.25 MCG CAPSULE PO (13:06)
[2022-05-04] MEDS: ASPIRIN 81 MG ENTERIC TABLET PO (13:06)
[2022-05-04] MEDS: SEVELAMER CARBONATE 800 MG TABLET PO ×3 (13:06→20:53)
[2022-05-04] MEDS: VITAMIN B CMPLX/VIT C/FOLIC AC 1 CAPSULE 1 CAP PO (13:06)
[2022-05-04] MEDS: TICAGRELOR 90 MG TABLET PO ×2 (13:07→20:53)
[2022-05-04] MEDS: carvediloL 6.25 MG TABLET PO ×2 (13:07→20:53)
[2022-05-04] MEDS: PANTOPRAZOLE SODIUM IV 40 MG VIAL IV PUSH (13:08)
[2022-05-04 13:19] LABS: Glucose Point of Care 94 mg/dl (65-105)
--- NOTE | 2022-05-04 13:39 | PM.IMPN ---
Progress Note: A&P Assessment and Plan (1) SIRS (systemic inflammatory response syndrome): Code(s): R65.10 - Systemic inflammatory response syndrome (SIRS) of non-infectious origin without acute organ dysfunction Status: Acute Assessment and Plan: patient was started on broad-spectrum antibiotics including vancomycin and cefepime. The patient had a debridement of the right [id number]-gpsd last month. ER physician did call the surgeon at [facility] recommended antibiotics. The antibiotics will need to be renally and adjusted as the patient has end-stage renal disease. -blood and urine cultures are pending. 05/04/2022 interval history: patient with history of type 1 diabetes end-stage renal disease on hemodialysis presented with hyperglycemia dose found to have a DKA patient was given 1 L of IV fluids and started the patient on IV insulin, patient blood sugars have trended down and currently on long-acting insulin 10 units daily and sliding scale blood sugars are trending down, patient has just returned after hemodialysis, states does not feeling very well, currently having her lunch, will continue to monitor and patient be seen by her Nephrology and further recommendation to follow. (2) Infarction of spleen: Code(s): D73.5 - Infarction of spleen Status: Acute Assessment and Plan: -heparin drip has been started for the splenic infarction. Heparin drip as per protocol. -monitor H&H closely and monitor for any signs and symptoms of bleeding. (3) Nausea & vomiting: Code(s): R11.2 - Nausea with vomiting, unspecified Status: Inactive Assessment and Plan: -DC the Reglan and continue with Zofran (4) ESRD needing dialysis: Code(s): N18.6 - End stage renal disease; Z99.2 - Dependence on renal dialysis Status: Acute Assessment and Plan: -Dr. Forbes saw the patient stated that she would go to dialysis tomorrow. The patient has a positive bruit and thrill to her left forearm AV fistula. Check phosphorus and electrolytes. -she has secondary hyperparathyroidism. -she has anemia of chronic kidney disease as well. Continue to monitor. -she has diabetes type 1 with end-stage nephropathy. (5) Hypertension: Qualifiers: Hypertension type: unspecified Qualified Code(s): I10 - Essential (primary) hypertension Code(s): I10 - Essential (primary) hypertension Status: Chronic Assessment and Plan: -at this point the patient is NPO because she is on insulin drip. At this time the patient has a blood pressure of 136/84. We will resume her home medications when she is no longer NPO and I will provide her with p.r.n. hydralazine. -benign essential hypertension with hypertensive renal disease. (6) Systolic heart failure: Code(s): I50.20 - Unspecified systolic (congestive) heart failure Status: Acute Assessment and Plan: -continue with Coreg when the patient is able to take p.o. -patient will have dialysis tomorrow no fluid removal tomorrow at dialysis caution with dialysis. (7) CAD (coronary artery disease): Qualifiers: Coronary Disease-Associated Artery/Lesion type: [place] artery [place] vs. transplanted heart: [place] heart Associated angina: with stable angina Qualified Code(s): I25.118 - Atherosclerotic heart disease of [place] coronary artery with other forms of angina pectoris Code(s): I25.10 - Atherosclerotic heart disease of [place] coronary artery without angina pectoris Status: Acute Assessment and Plan: -continue with aspirin, atorvastatin Coreg when the patient is able to tolerate p.o. (8) HHNC (hyperglycemic hyperosmolar nonketotic coma): Code(s): E11.01 - Type 2 diabetes mellitus with hyperosmolarity with coma Status: Acute Assessment and Plan: -the patient is on a insulin drip as per insulin drip protocol for DKA. We did not add any fluids with her DKA protocol she
[2022-05-04 14:04] LABS: Hematocrit 24.6 % (37.0-47.0); Hemoglobin 7.7 g/dL (12.0-15.0); Mean Corpuscular HGB Conc 31.3 g/dl (32-36); Mean Corpuscular Hemoglobin 30.8 pg (26-34); Mean Corpuscular Volume 98.4 fl (80-100); Mean Platelet Volume 9.8 fl (7.4-10.4); Platelet Count Result 237 k/mm3 (150-375); Red Cell Distribution Width 16.6 % (11.5-14.5); White Blood Count 10.8 K/mm3 (4.5-10.0)
[2022-05-04 14:24] LABS: Albumin Level 3.6 g/dL (3.5-5.1); Anion Gap 11 mmol/L (8-16); Blood Urea Nitrogen 27 mg/dL (7-17); Calcium 8.3 mg/dL (8.4-10.2); Carbon Dioxide 35 mmol/L (22-30); Chloride 92 mmol/L (98-107); Estimated CRCL calculation 18 ml/min; Estimated Glomerular Filt Rate 15; Glucose 101 mg/dL (65-110); Magnesium 1.9 mg/dL (1.6-2.3); Phosphorus 3.3 mg/dL (2.5-4.5); Potassium 3.7 mmol/L (3.4-5.0); Sodium 138 mmol/L (137-145)
[2022-05-04] MEDS: HEPARIN SODIUM 5,000 UNITS/ML VIAL 5000 UNITS IV PUSH (14:54)
[2022-05-04] MEDS: HEPARIN SOD/D5W 100 UNITS/ML 25,000 UNITS/250 ML BAG 16 UNITS IV CONT (17:03)
[2022-05-04 17:22] LABS: Glucose Point of Care 177 mg/dl (65-105)
[2022-05-04 20:16] LABS: Partial Thromboplastin Time 198.9 SECONDS (22.3-36.8)
[2022-05-04 20:29] LABS: Vancomycin Random 20.8 ug/mL (10-20)
[2022-05-04] MEDS: CEFEPIME 0.5 GM in DEXTROSE 5% IN WATER 50 ML IVPB (20:53)
[2022-05-04] MEDS: INSULIN GLARGINE (*BKC) 100 UNITS/ML 10 UNITS SUB-Q (21:44)
[2022-05-04 21:55] LABS: Glucose Point of Care 256 mg/dl (65-105)
--- NOTE | 2022-05-04 22:43 | PC.NURSE ---
DURING REPORT DAY SHIFT NURSE MARCIO Mccarty INFORMED ME SHE DID NOT KNOW SHE WAS REQUIRED TO REPEAT PTT 6 HRS AFTER THE PREVIOUS DRAW IF NOT THERAPEUTIC X2. THE LAST PTT WAS RESULTED 0816 05/04 AND WAS 48. THE NEXT PTT SHOULD HAVE BEEN 6HR LATER. PT DID GO DOWN TO DIALYSIS ON DAY SHIFT AND I WAS ALSO TOLD BY THE DAY RN THAT THE HEPARIN DID NOT GO TO DIALYSIS WITH HER. SHE STATED SHE TURNED THE HEPARIN BACK ON WHEN THE PT RETURNED FROM DIALYSIS AROUND 1700. AFTER REPORT I COLLECTED THE STAT PTT WHILE DOING SO I PLACED THE HEPARIN ON STANDBY. I RECEIVED A CRITICAL RESULT OF 198.9. SPOKE WITH HOSPITALIST JAUN AND SHE DIRECTED ME TO KEEP THE HEPARIN ON HOLD UNTIL 9PM AND DECREASE BY 2 PER PROTOCOL. BUT ALSO REPEAT THE LAB FOR 0000.
[2022-05-05] MEDS: ACETAMINOPHEN 500 MG TABLET 1000 MG PO ×3 (00:43→21:00)
[2022-05-05] MEDS: METOCLOPRAMIDE HCL INJ 10 MG/2 ML VIAL 5 MG IV PUSH ×4 (00:50→17:28)
[2022-05-05 01:05] LABS: Partial Thromboplastin Time 106.6 SECONDS (22.3-36.8)
[2022-05-05] MEDS: HEPARIN SOD/D5W 100 UNITS/ML 25,000 UNITS/250 ML BAG 13 UNITS IV CONT (01:18)
[2022-05-05] MEDS: CENTRAL LINE FLUSH 10 ML IV PUSH ×4 (05:19→21:03)
[2022-05-05 05:25] LABS: Hematocrit 22.9 % (37.0-47.0); Mean Corpuscular HGB Conc 30.6 g/dl (32-36); Mean Corpuscular Volume 101.3 fl (80-100); Mean Platelet Volume 9.2 fl (7.4-10.4); Platelet Count Result 167 k/mm3 (150-375); Red Blood Count 2.26 M/mm3 (4.2-5.4); Red Cell Distribution Width 16.7 % (11.5-14.5); White Blood Count 8.5 K/mm3 (4.5-10.0)
[2022-05-05 05:33] VITALS: BP 127/56; PULSE 79; RESP 17; TEMP 36.8; O2SAT 94
[2022-05-05 05:35] LABS: Albumin Level 3.3 g/dL (3.5-5.1); Anion Gap 12 mmol/L (8-16); Blood Urea Nitrogen 35 mg/dL (7-17); Calcium 8.4 mg/dL (8.4-10.2); Carbon Dioxide 34 mmol/L (22-30); Chloride 88 mmol/L (98-107); Estimated CRCL calculation 13 ml/min; Estimated Glomerular Filt Rate 10; Glucose 214 mg/dL (65-110); Magnesium 1.8 mg/dL (1.6-2.3); Phosphorus 3.9 mg/dL (2.5-4.5); Potassium 4.3 mmol/L (3.4-5.0); Sodium 134 mmol/L (137-145)
[2022-05-05 06:37] LABS: Partial Thromboplastin Time > 200.0 SECONDS (22.3-36.8)
[2022-05-05 08:51] LABS: Glucose Point of Care 180 mg/dl (65-105)
[2022-05-05] MEDS: PANTOPRAZOLE SODIUM IV 40 MG VIAL IV PUSH (09:15)
[2022-05-05 09:16] VITALS: PULSE 72
[2022-05-05] MEDS: ATORVASTATIN 40 MG TABLET 80 MG PO (09:16)
[2022-05-05] MEDS: SEVELAMER CARBONATE 800 MG TABLET PO ×4 (09:16→21:00)
[2022-05-05] MEDS: carvediloL 6.25 MG TABLET PO ×2 (09:16→21:00)
[2022-05-05] MEDS: TICAGRELOR 90 MG TABLET PO ×2 (09:16→21:00)
[2022-05-05] MEDS: ASPIRIN 81 MG ENTERIC TABLET PO (09:19)
[2022-05-05] MEDS: calcitrioL 0.25 MCG CAPSULE PO (09:19)
[2022-05-05] MEDS: VITAMIN B CMPLX/VIT C/FOLIC AC 1 CAPSULE 1 CAP PO (10:51)
[2022-05-05 12:31] LABS: Glucose Point of Care 251 mg/dl (65-105)
[2022-05-05] MEDS: INSULIN ASPART (*BKC) 100 UNITS/ML SUB-Q ×2 (12:38→17:27)
[2022-05-05 13:17] VITALS: BP 133/50; PULSE 78; RESP 14; TEMP 36.7; O2SAT 99
[2022-05-05 13:50] LABS: Partial Thromboplastin Time 56.8 SECONDS (22.3-36.8)
--- NOTE | 2022-05-05 13:57 | PM.IMPN ---
Progress Note: A&P Assessment and Plan (1) SIRS (systemic inflammatory response syndrome): Code(s): R65.10 - Systemic inflammatory response syndrome (SIRS) of non-infectious origin without acute organ dysfunction Status: Acute Assessment and Plan: patient was started on broad-spectrum antibiotics including vancomycin and cefepime. The patient had a debridement of the right [id number]-[id number] last month. ER physician did call the surgeon at [facility] recommended antibiotics. The antibiotics will need to be renally and adjusted as the patient has end-stage renal disease. -blood and urine cultures are negative 05/05 is day 4 vanc and cefepime; RECOMMEND D/C 05/06 IF CULTURES REMAIN NEGATIVE (2) Infarction of spleen: Code(s): D73.5 - Infarction of spleen Status: Acute Assessment and Plan: -heparin drip started from ED -monitor H&H closely and monitor for any signs and symptoms of bleeding 05/05 Due to unclear whether infarct was acute or chronic and due to lack of symptoms, conservative management will be pursued 05/05 D/c heparin (3) Nausea & vomiting: Code(s): R11.2 - Nausea with vomiting, unspecified Status: Inactive Assessment and Plan: Controlled (4) ESRD needing dialysis: Code(s): N18.6 - End stage renal disease; Z99.2 - Dependence on renal dialysis Status: Acute Assessment and Plan: -Continue HD per Dr. Forbes -she has secondary hyperparathyroidism. -she has anemia of chronic kidney disease as well. Continue to monitor. -she has diabetes type 1 with end-stage nephropathy. (5) Diabetic ketoacidosis: Code(s): E11.10 - Type 2 diabetes mellitus with ketoacidosis without coma Status: Acute Assessment and Plan: DKA resolved 05/05 FBS 214 (6) Hypertension: Qualifiers: Hypertension type: unspecified Qualified Code(s): I10 - Essential (primary) hypertension Code(s): I10 - Essential (primary) hypertension Status: Chronic Assessment and Plan: Continue to monitor on current meds 05/05 133/50 (7) Systolic heart failure: Code(s): I50.20 - Unspecified systolic (congestive) heart failure Status: Acute Assessment and Plan: Continue current regimen Volume management with HD (8) CAD (coronary artery disease): Qualifiers: Coronary Disease-Associated Artery/Lesion type: [place] artery [place] vs. transplanted heart: [place] heart Associated angina: with stable angina Qualified Code(s): I25.118 - Atherosclerotic heart disease of [place] coronary artery with other forms of angina pectoris Code(s): I25.10 - Atherosclerotic heart disease of [place] coronary artery without angina pectoris Status: Acute Assessment and Plan: -continue with aspirin, atorvastatin Coreg Subjective Date/time seen: 05/05/22 13:57 Interval history: follow-up DKA and SIRS complains of chronic issues with low back pain. No radiation. Mild to moderate. Worse with movement or prolonged stationary periods. Complains of mild diet aphasia without dysphagia since admission nausea vomiting. Denied chest pain shortness of breath or swelling. Denied abnormal bleeding. Denied GI or issues. Denied focal weakness. Continues to have some drainage on the wound VAC on her right BKA incision Review of Systems Review of Systems: All systems reviewed & are unremarkable except as noted in HPI and below Exam Narrative: sclerae nonicteric neck no JVD chest clear to auscultation heart normal S1 and S2 regular rate without audible murmur extremities no edema cyanosis or clubbing abdomen bowel sounds present soft nontender no palpable mass musculoskeletal status post right BKA neurologic cranial nerves symmetric to visual inspection skin right BKA incision appears intact without purulence or significant erythema Objective Data Vital Signs Vital Signs: Vital Signs - 24 hr
[2022-05-05] MEDS: HEPARIN SODIUM 5,000 UNITS/ML VIAL 2500 UNITS IV PUSH (14:13)
[2022-05-05 16:49] LABS: Glucose Point of Care 264 mg/dl (65-105)
[2022-05-05] MEDS: SUCRALFATE SUSP 100 MG/ML 10 ML UDC 1000 MG PO ×2 (17:27→21:00)
[2022-05-05 21:00] VITALS: PULSE 70
[2022-05-05] MEDS: PANTOPRAZOLE 40 MG TABLET PO (21:00)
[2022-05-05] MEDS: INSULIN GLARGINE (*BKC) 100 UNITS/ML 10 UNITS SUB-Q (21:00)
[2022-05-05 21:22] LABS: Glucose Point of Care 269 mg/dl (65-105)
[2022-05-05 21:49] VITALS: BP 132/60; PULSE 78; RESP 14; TEMP 36.6; O2SAT 99
[2022-05-06] VITALS (15 sets, daily range): BP systolic 119–185; BP diastolic 52–65; PULSE 73–118; RESP 14–16; TEMP 36–37; O2SAT 97–98
[2022-05-06] MEDS: METOCLOPRAMIDE HCL INJ 10 MG/2 ML VIAL 5 MG IV PUSH ×3 (00:05→12:47)
[2022-05-06] MEDS: SUCRALFATE SUSP 100 MG/ML 10 ML UDC 1000 MG PO ×3 (05:32→18:36)
[2022-05-06] MEDS: CENTRAL LINE FLUSH 10 ML IV PUSH ×2 (05:33→14:00)
[2022-05-06 05:38] LABS: Hematocrit 21.9 % (37.0-47.0); Mean Corpuscular HGB Conc 31.5 g/dl (32-36); Mean Corpuscular Hemoglobin 31.7 pg (26-34); Mean Corpuscular Volume 100.5 fl (80-100); Mean Platelet Volume 9.8 fl (7.4-10.4); Platelet Count Result 157 k/mm3 (150-375); Red Blood Count 2.18 M/mm3 (4.2-5.4); Red Cell Distribution Width 16.5 % (11.5-14.5); White Blood Count 9.8 K/mm3 (4.5-10.0)
[2022-05-06 05:41] LABS: Hemoglobin 6.9 g/dL (12.0-15.0)
[2022-05-06 05:51] LABS: Albumin Level 3.2 g/dL (3.5-5.1); Anion Gap 11 mmol/L (8-16); Blood Urea Nitrogen 47 mg/dL (7-17); Carbon Dioxide 32 mmol/L (22-30); Chloride 86 mmol/L (98-107); Estimated CRCL calculation 10 ml/min; Estimated Glomerular Filt Rate 8; Glucose 224 mg/dL (65-110); Magnesium 1.8 mg/dL (1.6-2.3); Phosphorus 3.9 mg/dL (2.5-4.5); Potassium 4.7 mmol/L (3.4-5.0); Sodium 129 mmol/L (137-145)
[2022-05-06 08:45] LABS: Glucose Point of Care 217 mg/dl (65-105)
[2022-05-06] MEDS: SEVELAMER CARBONATE 800 MG TABLET PO ×3 (08:48→18:38)
[2022-05-06] MEDS: TICAGRELOR 90 MG TABLET PO (08:48)
[2022-05-06] MEDS: carvediloL 6.25 MG TABLET PO (08:48)
[2022-05-06] MEDS: calcitrioL 0.25 MCG CAPSULE PO (08:48)
[2022-05-06] MEDS: ATORVASTATIN 40 MG TABLET 80 MG PO (08:48)
[2022-05-06] MEDS: ASPIRIN 81 MG ENTERIC TABLET PO (08:51)
[2022-05-06] MEDS: INSULIN ASPART (*BKC) 100 UNITS/ML SUB-Q ×2 (08:52→12:47)
[2022-05-06] MEDS: VITAMIN B CMPLX/VIT C/FOLIC AC 1 CAPSULE 1 CAP PO (08:52)
[2022-05-06] MEDS: PANTOPRAZOLE 40 MG TABLET PO (08:52)
--- NOTE | 2022-05-06 11:01 | PM.PNNEP ---
Progress Note: A&P Assessment and Plan (1) End stage renal disease on dialysis: Code(s): N18.6 - End stage renal disease; Z99.2 - Dependence on renal dialysis Status: Acute Assessment and Plan: End-stage renal disease Type 1 diabetes mellitus with end-stage nephropathy Benign essential hypertension with hypertensive renal disease Anemia of chronic kidney disease: lower today Secondary hyperparathyroidism Type 1 diabetes mellitus with hyperglycemia Excess activation of diabetic gastroparesis with nausea and vomiting, precipitating dehydration and alkalotic situation SIRS: culture negative Spleen infarction Plan: -transfuse -anemia: poor epo response, acute illness -dialysis today -possible discharge today -OK from renal standpoint for discharge whenever medically OK -f/u [facility] MWF at regularlyschedule time Subjective Date/time seen: 05/06/22 11:01 Review of Systems Review of Systems: CC; ESRD follow up HPI: feels better, last emesis day before yesterday Abdominal pain is better Exam Narrative: Better, but still weak looking, skin turgor is fine, moist oral mucosa, JVD is not seen, RRR, no gallop or murmurs, soft non tender abdomen, no masses, no edema, alert and awake, no tremors Objective Data Vital Signs Vital Signs: Vital Signs - 24 hr 05/05/22 13:17 05/05/22 21:00 05/05/22 21:49 Temperature 36.7 C 36.6 C Pulse Rate 78 70 78 Respiratory Rate 14 14 Blood Pressure 133/50 L 132/60 Pulse Oximetry 99 99 Oxygen Delivery 05/05/22 20:00 05/06/22 05:52 05/06/22 08:48 Temperature 36.5 C Pulse Rate 74 75 Respiratory Rate 14 Blood Pressure 125/60 Pulse Oximetry 98 Oxygen Delivery Room Air 05/06/22 08:51 Temperature Pulse Rate 75 Respiratory Rate 14 Blood Pressure 135/52 L Pulse Oximetry 97 Oxygen Delivery Intake/Output Intake/Output: Intake & Output 05/04/22 05/05/22 05/05/22 05/06/22 00:59 00:59 23:59 23:59 Intake Total 660 Output Total Balance 660 Meds/Results Medications: Active Medications Generic Name Dose Route Start Last Admin Trade Name Freq PRN Reason Stop Dose Admin Acetaminophen 1,000 mg 05/05/22 00:35 05/05/22 21:00 Acetaminophen 500 Mg Tablet PO 1,000 mg Q6H PRN Administration Mild Pain (1-3) or Fever Aspirin 81 mg 05/03/22 09:00 05/06/22 08:51 Aspirin 81 Mg Enteric Tablet PO 81 mg DAILY JOHNSON Administration Atorvastatin Calcium 80 mg 05/03/22 09:00 05/06/22 08:48 Atorvastatin 40 Mg Tablet PO 80 mg DAILY JOHNSON Administration Calcitriol 0.25 mcg 05/03/22 09:00 05/06/22 08:48 Calcitriol 0.25 Mcg Capsule PO 0.25 mcg QAM JOHNSON Administration Carvedilol 6.25 mg 05/02/22 21:00 05/06/22 08:48 Carvedilol 6.25 Mg Tablet PO 6.25 mg Q12H JOHNSON Administration Dextrose 12.5 gm 05/02/22 16:21 05/03/22 00:02 Dextrose 50% 25 Gm/50 Ml Syringe IV PUSH 12.5 gm PRN PRN Administration Hypoglycemia Protocol Dicyclomine HCl 20 mg 05/02/22 16:21 Dicyclomine Hcl Inj 20 Mg/2 Ml Vial IM Q6H PRN Abdominal Cramping Epoetin Humble-epbx 10,000 units 05/06/22 13:00 Epoetin [place]-Epbx 10,000 Units/Ml Vial IV PUSH 05/06/22 13:01 ONCE ONE Glucagon 1 mg 05/02/22 16:21 Glucagon For Inj 1 Mg Vial IM PRN PRN Hypoglycemia Protocol Glucose 15 gm 05/02/22 16:21 Glucose Oral Gel 15 Gm Of Glucse In 37.5 Gm Tube PO PRN PRN Hypoglycemia Protocol Hydralazine HCl 10 mg 05/02/22 20:16 Hydralazine Hcl 20 Mg/Ml Vial IV PUSH Q8H PRN Blood Pressure - High Insulin Human Regular 100 100 mls @ 0 mls/hr 05/02/22 16:30 05/03/22 06:20 units/ Sodium Chloride IV CONT 0 units/hr .Q0M JOHNSON 0 mls/hr Titration Protocol 0 UNITS/HR Dextrose 1,000 mls @ 100 mls/hr 05/02/22 16:21 Dextrose 5% 1,000 Ml IVPB PRN PRN Hypoglycemia Protocol Vancomycin HCl 1,
[2022-05-06 12:13] LABS: Glucose Point of Care 250 mg/dl (65-105)
--- NOTE | 2022-05-06 15:04 | PM.DS ---
DS: Admitting Diagnosis Discharge Date 05/06/2022 Admitting Diagnosis nausea vomiting abdominal pain DS: Summary Hospital Course Reason for hospitalization: nausea vomiting abdominal pain Hospital Course: Pamela Bhat is a 46 year old female with significant past medical history of CVA, coronary artery disease, Chiari 1 malformation, chronic osteomyelitis status post right BKA, diabetes, end-stage renal disease on HD, esophagitis gastroparesis, hyperlipidemia, congestive heart failure presented the ED on 05/02/2022 with complains of nausea, vomiting and diarrhea along with abdominal pain.? Patient states she has been feeling unwell for the last 3 days and had multiple episodes of nonbloody, nonbilious emesis along with nausea.? She has not been able to take any of her medications for monitor blood sugars.? In the ED patient's blood sugars were in the 500s, positive beta hydroxybutyrate, lactic acid of 4.8, elevated anion gap.? Chest x-ray showed lingular atelectasis and cardiomegaly.? CT scan of the abdomen and pelvis showed peripheral infarct in the spleen, stool distends the rectum, wall thickening of distal esophagus consistent with esophagitis.? CT scan of the brain did not show any acute intracranial process, chronic small vessel ischemic disease, Chiari 1 malformation.? ED physician spoke to patient's surgeon at [facility] for the splenic infarct and he suggested heparin infusion and broad-spectrum antibiotics.? Patient was started on heparin infusion, cefepime and vancomycin.? Patient was also given 1 L of IV fluid bolus in the ED for DKA per water sander, and started on insulin infusion per DKA protocol and transferred to the ICU for further management. patient was taken off the insulin infusion due to low blood sugars.? She was also given Lantus 10 units subQ x1 which is her home dose.? Patient is hemodynamically stable, lactic acid has trended down to 1.1 (4.8 on admission).? Influenza A and B were negative in the ER, SARS-CoV-2 PCR was negative in the ER.? WBC count is 18.4, patient heparin infusion has been stopped. Today was the last day of antibiotics. Nephrology was consulted and patient was getting hemodialysis (Friday) schedule. At this time patient is clinically stable and back to baseline and is being discharged home Time Spent with Patient Time attestation: Total time spent providing and/or coordinating discharge services: Exam Const: General: cooperative and comfortable Orientation/consciousness: patient oriented x3 HENMT: Head: normal to inspection Mouth: Yes Normal oral and palatal mucosa present Eyes: General: appearance normal, both eyes and all related structures Resp: Effort & Inspection: normal respiratory effort Auscultation: clear to auscultation bilaterally Cardio: Rate: regular rate Rhythm: regular rhythm Heart sounds: S1 normal heart sound present and S2 normal heart sound present GI: GI Palp: Yes Soft to palpation Auscultation: normal bowel sounds Skin: General skin exam: normal color and no rashes or lesions noted Neuro: General: patient oriented x3, no focal motor deficits and CN's II-XI intact bilaterally Speech: normal speech Extrem: General: full ROM Psych: Appearance: grossly normal DS: Data Data Completed and Pending Labs on day of discharge: Labs from last 24 hours 05/06/22 05/06/22 05/06/22 12:11 11:09 08:42 WBC RBC Hgb Hct MCV MCH MCHC RDW Plt Count MPV Sodium Potassium Chloride Carbon Dioxide Anion Gap BUN Creatinine Estim Creat Clear Calc Estimated GFR Glucose POC Capillary Glucose 250 H 217 H Calcium Phosphorus Magnesium Albumin Blood Type A Negative Antibody Screen Negative Crossmatch See Detail 05/06/22 05/06/22 05/05/22 05:31 05:31 20:57 WBC 9.8 RBC 2.18 L Hgb 6.9 L* Hct 21.9 L MCV 100.5 H MCH 31.7 MCHC
[2022-05-06] MEDS: EPOETIN ALFA-EPBX 10,000 UNITS/ML VIAL 10000 UNITS IV PUSH (16:07)
[2022-05-06] MEDS: NEOMYCIN/POLYMYXIN/BACITRACIN OINTMENT PACKET 1 PACKET (18:36)
== END 2022-05-06 18:58 | disposition home health service (06) | DRG 637 ==
LOC: ANHED 16:28 → ANHICU 16:49 → ANH2MED 05-03 17:15
PROVIDERS: Family Medicine; Internal Medicine; Nurse Practitioner; Physician Assistant; Admitting Provider Internal Medicine; Emergency Provider Emergency Medicine; PCP Internal Medicine; Visit Provider Hospitalist
DX: E10.10 Type 1 diabetes mellitus with ketoacidosis without coma (principal); G93.5 Compression of brain; N18.6 End stage renal disease; R65.10 Systemic inflammatory response syndrome (SIRS) of non-infectious origin without acute organ dysfunction; N25.81 Secondary hyperparathyroidism of renal origin; M86.661 Other chronic osteomyelitis, right tibia and fibula; I50.22 Chronic systolic (congestive) heart failure; I13.2 Hypertensive heart and chronic kidney disease with heart failure and with stage 5 chronic kidney disease, or end stage renal disease; E10.43 Type 1 diabetes mellitus with diabetic autonomic (poly)neuropathy; K31.84 Gastroparesis; E10.22 Type 1 diabetes mellitus with diabetic chronic kidney disease; I25.10 Atherosclerotic heart disease of native coronary artery without angina pectoris; Z20.822 Contact with and (suspected) exposure to COVID-19; E10.21 Type 1 diabetes mellitus with diabetic nephropathy; D63.1 Anemia in chronic kidney disease; E10.65 Type 1 diabetes mellitus with hyperglycemia; E86.0 Dehydration; E78.5 Hyperlipidemia, unspecified; N25.0 Renal osteodystrophy; D73.5 Infarction of spleen; F17.210 Nicotine dependence, cigarettes, uncomplicated; Z89.511 Acquired absence of right leg below knee; Z99.2 Dependence on renal dialysis; Z86.73 Personal history of transient ischemic attack (TIA), and cerebral infarction without residual deficits; Z95.5 Presence of coronary angioplasty implant and graft; Z89.429 Acquired absence of other toe(s), unspecified side; Z90.49 Acquired absence of other specified parts of digestive tract; Z79.82 Long term (current) use of aspirin
CPT/HCPCS: 36415; 36430; 36600; 70450; 71046; 74177; 80048; 80053; 80069; 80202; 80307; 81001; 82010; 82140; 82375; 82565; 82728; 82805; 82948; 83050; 83605; 83690; 83735; 84100; 84443; 84484; 85025; 85027; 85610; 85730; 86140; 86850; 86900; 86901; 86923; 87040; 87502; 93005; A9270; C1751; C9113; G0257; J0692; J1644; J1815; J2060; J2405; J2765; J3370; J7030; J7120; P9016; Q5105; Q9967; U0003; U0005

== ENCOUNTER 2022-06-26 08:28 | Inpatient (IN) | payer OTHER, MEDICARE, MEDICAID, SELFPAY ==
[2022-06-26] VITALS (47 sets, daily range): BP systolic 90–120; BP diastolic 39–75; PULSE 75–119; RESP 12–30; TEMP 36.1–36.7; O2SAT 80–100; BMI 30.7
--- NOTE | ~2022-06-26 | XR_ITS ---
EXAMINATION: XR chest 1V portable INDICATION: Shortness of breath and chest pain TECHNIQUE: Portable AP chest at 0906 hours COMPARISON: 05/02/2022 FINDINGS: Cardiomegaly is noted. There is a small left pleural effusion. No pneumothorax is identifie d. There are airspace opacities of the left lung base. Median sternotomy wires and mediastinal surgic al clips are seen, likely from prior coronary artery bypass grafting. IMPRESSION: 1. Small left pleural effusion. 2. Left basilar airspace opacity, consistent with atelectasis versus pneumonia. Reviewed, dictated and finalized at location B. [employer] ADMINISTRATION INTERN
--- NOTE | ~2022-06-26 | CT_ITS ---
EXAMINATION: CT brain wo con DATE: 06/26/2022 09:42 INDICATION: Sudden onset headache TECHNIQUE: Computed tomography (CT) of the head was performed without intravenous contrast. Sagittal and coronal reconstructions were performed. The mA was adjusted according to patient size. Iterative reconstruction technique was employed. The dose-length product was 605.33 mGy-cm. COMPARISON: head CT dated 05/02/2022 FINDINGS: No acute intracranial hemorrhage, acute infarction or abnormal extra axial fluid collection. There is mild scattered white matter hypoattenuation consistent with chronic small vessel ischemic di sease. Chronic Chiari I malformation with low-lying bilateral cerebellar tonsils which extend below t he level of the foramen magnum to the level of the cephalad margin of the posterior ring of C1. Basil ar cisterns remain patent. Ventricles are normal and symmetric. No mass/mass effect. Changes of bilat eral intraocular lens replacement. Unchanged small right and trace left mastoid effusions. Mild mucos al thickening the left maxillary sinus. Intracranial calcified cerebral atherosclerosis is noted. IMPRESSION: 1. No acute intracranial process. 2. Unchanged mild scattered white matter hypoattenuation consistent with chronic small vessel ischemi c disease. 3. Stable appearance of a Chiari I malformation. Reviewed, dictated and finalized at location A. [facility] IMPRESSION: 1. No acute intracranial process. 2. Unchanged mild scattered white matter hypoattenuation consistent with chroni c small vessel ischemic disease. 3. Stable appearance of a Chiari I malformation.
--- NOTE | ~2022-06-26 | CT_ITS ---
IMPRESSION: 1. No pulmonary embolus. 2. Mild pulmonary edema. 3. Small left pleural effusion. 4. Cardiomegaly. EXAMINATION: CTA chest PE protocol DATE: 06/29/2022 11:39 INDICATION: Shortness of breath. TECHNIQUE: Computed tomography angiography (CTA) of the chest was performed with 100 mL Omnipaque-350 intravenous contrast timed to evaluate the pulmonary arteries. Coronal maximum intensity projection 3D-reconstructions were created by the technologist. Automated exposure control and iterative reconst ruction technique were employed. The dose-length product was 678.66 mGy-cm. COMPARISON: Chest CT 11/09/2021 FINDINGS: There is smooth septal thickening in the lungs, consistent mild pulmonary edema. There is m ild atelectasis in left lower lobe and lingula. There is a small left pleural effusion. Cardiomegaly is noted. There are coronary artery calcifications. There are changes of coronary artery bypass graft ing. No pericardial effusion. The central pulmonary arteries are enlarged, consistent with pulmonary arterial hypertension. There is no pulmonary embolus. There is mild thoracic spondylosis. IMPRESSION: 1. No pulmonary embolus. 2. Mild pulmonary edema. 3. Small left pleural effusion. 4. Cardiomegaly. Reviewed, dictated and finalized at location A. PER GUN OPERATOR
--- NOTE | 2022-06-26 08:39 | ECG_ITS ---
Measurements Intervals [place] Rate: 117 P: 53 RI: 244 QRS: 29 QRSD: 155 T: 38 QT: 366 QTc: 511 Interpretive Statements LIKELY SINUS TACHYCARDIA WITH FIRST DEGREE AV BLOCK INDETERMINATE AXIS INTRAVENTRICULAR CONDUCTION DELAY [130+ ms QRS DURATION] COMPARED TO ECG 05/02/2022 14:01:31 FIRST DEGREE AV BLOCK NOW PRESENT INTRAVENTRICULAR CONDUCTION DELAY NOW PRESENT Electronically Signed On 06-26-2022 13:21:40 [employer] by Marly Benitez M.D.
--- NOTE | 2022-06-26 08:51 | ED.SOB ---
HPI - SOB/Dyspnea General Chief Complaint: Shortness of Breath/Dyspnea Stated Complaint: SOB Time Seen by Provider: 06/26/22 08:29 Source: patient, EMS and RN notes reviewed Mode of arrival: EMS Limitations: no limitations History of Present Illness HPI Narrative: This is a 46 year old female with history of ESRD on dialysis, DM, hyperlipidemia who presents for evaluation of low blood pressure. Patient states she went to dialysis. After starting dialysis, she developed sudden onset diffuse headache, mild midsternal chest pain and shortness of breath. Her chest pain is nonradiating. She was found to have a low blood pressure so she was sent to ER. Patient states she has not taken her antihypertensive medication today. She denies fever, chills, cough, nausea, vomiting or diarrhea. She reports recent right BKA stump debridement last week at [facility]. She reports mild bleeding during her dressing changes. Related Data Home Medications Medication Instructions Recorded Confirmed aspirin 81 mg tablet,delayed 81 mg PO DAILY 12/20/20 06/26/22 release sevelamer carbonate 800 mg tablet 800 mg PO TIDWM 03/13/21 06/26/22 pantoprazole 40 mg tablet,delayed 40 mg PO DAILY 09/03/21 06/26/22 release carvedilol 6.25 mg tablet 6.25 mg PO Q12H 02/20/22 06/26/22 ticagrelor 90 mg tablet 90 mg PO Q12H 02/20/22 06/26/22 insulin glargine 100 unit/mL (3 10 unit subcut HS 02/28/22 06/26/22 mL) subcutaneous pen (Lantus Solostar U-100 Insulin) insulin lispro 100 unit/mL 7 unit subcut TIDWMEAL 02/28/22 06/26/22 subcutaneous pen (Humalog KwikPen (U-100) Insulin) insulin lispro 100 unit/mL See Protocol subcut TIDWMEAL 02/28/22 06/26/22 subcutaneous solution (Humalog U-100 Insulin) vitamin B complex-vitamin C-folic 0.8 tablet PO DAILY 03/06/22 06/26/22 acid 0.8 mg tablet (Renal Vitamin) atorvastatin 80 mg tablet 80 mg PO DAILY 05/02/22 06/26/22 hydrocodone 7.5 mg-acetaminophen 1 tablet PO Q4-6H PRN Pain 06/26/22 06/26/22 325 mg tablet Allergies Allergy/AdvReac Type Severity Reaction Status Date / Time No Known Drug Allergies Allergy Unknown Verified 02/25/22 19:45 Review of Systems Review of Systems: All systems reviewed & are unremarkable except as noted in HPI and below Constitutional: Constitutional: Denies chills, Denies fatigue and Denies fever(s) Cardiovascular: Cardiovascular: Reports chest pain and Reports rapid heart rate Respiratory: Respiratory: Denies chest congestion, Denies cough and Denies dyspnea Gastrointestinal: Gastrointestinal: Denies abdominal pain, Denies nausea and Denies vomiting Neurologic: Reports headache(s) and Denies focal weakness PMFSH Past Medical History Medical History Acute cholecystitis (~02/2021) Acute electrocardiogram changes Anasarca Anemia Cerebrovascular accident Small old lacunar infarct at the head of the right caudate nucleus. Chest pain Chiari I malformation Chronic osteomyelitis Status post toe amputations Congestive heart failure Coronary artery disease Status post stent to the right coronary artery in August 2020. End-stage renal disease on hemodialysis On dialysis since June 2019. Erythropoietin deficiency anemia Esophagitis determined by endoscopy (12/2019) Gastroparesis due to DM Hyperlipidemia Hypokalemia Nausea & vomiting Pulmonary edema Renal osteodystrophy Surgical History Surgical History Amputation of toe Two on the left AV fistula Left forearm History of section, classical X2 History of coronary artery stent placement times 3 History of laparoscopic cholecystectomy (03/15/21) History of myringotomy History of repair of rotator cuff History of tonsillectomy and adenoidectomy History of tubal ligation Hx of myringotomy Hx of right BKA Status post lateral meniscus repair Family History Family History (R
[2022-06-26] MEDS: SODIUM CHLORIDE 0.9% IV 500 ML 999 ML IV CONT ×2 (09:04→12:18)
[2022-06-26 09:19] LABS: Alveolar/Arterial O2 Gradient 40.6 mmHg; Base Excess ABG 3.8 mEq/l (+/-2.0); Carboxyhemoglobin 1.6 % THb (0-2.0); Fractional Inspired Oxygen 21 %; HCO3 ABG 27.4 mEq/l (22.0-26.0); Methemoglobin ABG 0.2 %THb (0-1.5); Oxygen Saturation ABG 94.1 % (95.0-100.0); Oxyhemoglobin 89.1 % THb (90.0-100.0); PCO2 ABG 37.2 mmHg (35.0-45.0); PO2 ABG 64.6 mmHg (80.0-100.0); PO2 FiO2 Ratio Arterial Blood 3.08 %; Reduced Hemoglobin 9.1 %THb (0-5.0); Total Hemoglobin 8.7 g/dL (12.0-18.0); pH ABG 7.485 (7.350-7.450)
[2022-06-26 09:20] LABS: Device ROOM AIR; Modified Allen's Test Pass; Site Drawn RIGHT RADIAL
--- NOTE | 2022-06-26 10:03 | PC.NURSE ---
Multiple attempts to obtain blood with no success. Phlebotomy called
[2022-06-26 11:24] LABS: Lactic Acid Reflex 1.8 mmol/L (0.7-2.0)
[2022-06-26 11:32] LABS: INR 1.3; Partial Thromboplastin Time 22.9 SECONDS (22.3-36.8); Prothrombin Time 15.4 Seconds (11.1-14.7)
[2022-06-26 11:38] LABS: Alanine Aminotransferase 16 U/L (6-35); Albumin Level 3.4 g/dL (3.5-5.1); Alkaline Phosphatase 287 U/L (38-126); Anion Gap 13 mmol/L (8-16); Aspartate Amino Transferase 30 U/L (14-36); Bilirubin,Total 0.6 mg/dL (0.2-1.3); Blood Urea Nitrogen 44 mg/dL (7-17); Calcium 8.3 mg/dL (8.4-10.2); Carbon Dioxide 25 mmol/L (22-30); Chloride 92 mmol/L (98-107); Estimated CRCL calculation 18 ml/min; Estimated Glomerular Filt Rate 13; Glucose 292 mg/dL (65-110); Lipase 122 U/L (23-300); Magnesium 1.9 mg/dL (1.6-2.3); Sodium 130 mmol/L (137-145)
[2022-06-26 11:58] LABS: NT Pro B Type Natriuretic Pept > 35000 pg/mL (5-100); Troponin I 0.457 ng/mL (0.000-0.034)
[2022-06-26 12:08] LABS: Influenza A QL RT-PCR Negative (Negative); Influenza B QL RT-PCR Negative (Negative); SARS-CoV-2 RNA PCR Negative
--- NOTE | 2022-06-26 13:27 | PM.IMHP ---
H&P: HPI History of Present Illness Date/Time: 06/26/22 13:27 Chief Complaint: Shortness of breath Narrative: This is a 46-year-old female patient who is well known to our services. She has a history of end-stage renal disease on dialysis Friday. The patient went to dialysis but did not finish. The patient developed sudden onset of headache mild midsternal chest pain and shortness of breath. The chest pain is nonradiating. The patient was found have a low blood pressure so she was sent to the emergency room. The patient stated she has not taken any of her antihypertensive medication today. The patient does have a history of chronic anemia and has had to have blood transfusions in the past. Her hemoglobin is 7.8 today. Which is up from last month at 6.9. Her troponin is 0.457 which is lower than her baseline. Head CT was read as no acute intracranial process. Unchanged mild scattered white matter hypoattenuation consistent with chronic small vessel ischemic disease. Stable appearance of Chiari malformation. Chest x-ray was read as1. Small left pleural effusion. 2. Left basilar airspace opacity, consistent with atelectasis versus pneumonia. Initially the patient was given a 500 cc bolus and then a 1 L bolus in the emergency room followed by another [address] Forbes was consulted and came to see the patient. He then ordered 2 more L of normal saline. He ordered heparin IV push and Retacrit. Patient's last blood pressure was recorded as 105/56. The patient is being admitted to observation status on the date of service of 06/26/2022. Review of Systems Review of Systems: See HPI All systems reviewed & are unremarkable except as noted in HPI and below Constitutional: Constitutional: Reports as per HPI and Reports no additional constitutional complaints Eyes: Eyes: Reports as per HPI and Reports no additional eye complaints ENT: Reports system reviewed and no additional complaints, except as documented and Reports Normal hearing present Cardiovascular: Cardiovascular: Reports no additional cardiovascular complaints Respiratory: Respiratory: Reports no additional respiratory complaints and Reports no additional respiratory complaints Gastrointestinal: Gastrointestinal: Reports as per HPI and Reports no additional gastrointestinal complaints Musculoskeletal: Musculoskeletal: Reports no additional musculoskeletal complaints Integumentary/Breasts: Skin/Breast: Reports system reviewed and no additional complaints, except as docu and Reports as per HPI Neurologic: Reports system reviewed and no additional complaints, except as documented, Reports as per HPI and Reports Normal hearing present Psychiatric: Psychiatric: Reports no additional psychiatric complaints and Reports as per HPI Endocrine: Endocrine: Reports no additional endocrine complaints Hematologic/Lymphatic: Hematologic/Lymphatic: Reports no additional hematologic/lymphatic complaints Allergic/Immunologic: Allergic/Immunologic: Reports no additional allergic/immunologic complaints [facility] Past Medical History Medical History Acute cholecystitis (~02/2021) Acute electrocardiogram changes Anasarca Anemia Cerebrovascular accident Small old lacunar infarct at the head of the right caudate nucleus. Chest pain Chiari I malformation Chronic osteomyelitis Status post toe amputations Congestive heart failure Coronary artery disease Status post stent to the right coronary artery in August 2020. End-stage renal disease on hemodialysis On dialysis since June 2019. Erythropoietin deficiency anemia Esophagitis determined by endoscopy (12/2019) Gastroparesis due to DM Hyperlipidemia Hypokalemia Nausea & vomiting Pulmonary edema Renal osteodystrophy Surgical History Surgical History Amputation of toe Two on the left AV fistula Left
[2022-06-26 14:10] LABS: Basophils Percent Auto 0.3 % (0.2-1.2); Eosinophils Absolute Auto 0.1 K/mm3 (0-0.3); Eosinophils Percent Auto 0.9 % (0-4.4); Hematocrit 24.2 % (37.0-47.0); Hemoglobin 7.8 g/dL (12.0-15.0); Immature Granulocyte Absolute 0.02 K/mm3 (0.00-0.031); Immature Granulocyte Percent A 0.3 % (0-0.5); Lymphocytes Absolute Auto 1.04 K/mm3 (0.9-3.2); Lymphocytes Percent Auto 15.5 % (18.3-44.2); Mean Corpuscular HGB Conc 32.2 g/dl (32-36); Mean Corpuscular Hemoglobin 31.7 pg (26-34); Mean Corpuscular Volume 98.4 fl (80-100); Mean Platelet Volume 10.7 fl (7.4-10.4); Monocytes Absolute Auto 0.4 K/mm3 (0.1-0.6); Monocytes Percent Auto 6.1 % (2.6-8.5); Neutrophils Absolute Auto 5.2 K/mm3 (1.3-6.7); Neutrophils Percent Auto 76.9 % (45.5-73.1); Platelet Count Result 159 k/mm3 (150-375); Red Blood Count 2.46 M/mm3 (4.2-5.4); Red Cell Distribution Width 16.1 % (11.5-14.5); White Blood Count 6.7 K/mm3 (4.5-10.0)
--- NOTE | 2022-06-26 16:18 | PM.CNNEP ---
Assessment and Plan Assessment and plan (1) End stage renal disease on dialysis: Code(s): N18.6 - End stage renal disease; Z99.2 - Dependence on renal dialysis Status: Acute Plan End-stage renal disease And hypotension related to dialysis treatment, sustained for a while Type 1 diabetes mellitus and nephropathy Hypertensive renal disease Anemia chronic kidney disease Secondary hyperparathyroidism Status post right below-knee amputation Left lower extremity edema Plan: -labs noted -hypotension probably fluid removal related or rate of fluid removal related -Autonomic dysfunction is a possibility in the presence of diabetes mellitus -with 1 L of fluid given -hold dialysis tomorrow -the next dialysis session on Friday, orders in chart, d/w scales inspector -may need cardiac assessment, need to think about pericardial effusion as well in situations such as this -will follow History of Present Illness Reason for Consult Consult date: 06/26/22 Reason for consult: end stage renal disease Chief Complaint Chief complaint: SOB History of Present Illness Narrative: 46-year-old female who was at hemodialysis today. She was initiated on treatment for about an hour and her blood pressure dropped and then not come back up again. She was as a result sent to the emergency room after termination of dialysis. She does not report passing out. She is not lightheaded. He did develop a headache. No nausea or vomiting. She is chronically feeling better. She received 1 L of fluid in the emergency room due to persistent low blood pressures so she does go up and down. When seen she had received a L of fluid. She is not short of breath. She is on hemodialysis 3 times a week Friday, Friday, Friday. Underlying problem is diabetes mellitus. She has underlying coronary artery disease, CABG, status post right lower extremity amputation with stump infection recently debrided, and congestive heart failure. Head CT is negative but for small-vessel chronic ischemic changes chest x-ray shows : 1. Small left pleural effusion. 2. Left basilar airspace opacity, consistent with atelectasis versus pneumonia. She denies any fevers or chills. Review of Systems Review of Systems: Appetite is been maintained. She has gained some weight. There is some left lower extremity swelling. She denies any shortness of breath. There has been no recent nausea vomiting. She has had repeated admissions with diabetic gastroparesis related vomiting episodes. She had debridement of the right lower extremity stump at the site of the below-knee amputation recently and the area was sutured. Denies other complaints. Negative other systemic issues. [facility] Past Medical History Medical History Acute cholecystitis (~02/2021) Acute electrocardiogram changes Anasarca Anemia Cerebrovascular accident Small old lacunar infarct at the head of the right caudate nucleus. Chest pain Chiari I malformation Chronic osteomyelitis Status post toe amputations Congestive heart failure Coronary artery disease Status post stent to the right coronary artery in August 2020. End-stage renal disease on hemodialysis On dialysis since June 2019. Erythropoietin deficiency anemia Esophagitis determined by endoscopy (12/2019) Gastroparesis due to DM Hyperlipidemia Hypokalemia Nausea & vomiting Pulmonary edema Renal osteodystrophy Surgical History Surgical History (Updated 06/26/22 @ 13:29 by Ondina Mccullough NP) Amputation of toe Two on the left AV fistula Left forearm History of section, classical X2 History of coronary artery stent placement times 3 History of laparoscopic cholecystectomy (03/15/21) History of myringotomy History of repair of rotator cuff History of tonsillectomy and adenoidectomy History of tubal ligation Hx of myringotomy Hx of right BKA Status post lateral meniscus repair
--- NOTE | 2022-06-26 18:21 | ADMGEN ---
This patient, Pamela Bhat, was admitted to IMU Room 212-01. Patient/family oriented to hospital policies and general routines including ID bracelet, bed and alarms, visiting hours, pain management, procedures, bathroom and other care routines, personal items, smoking policy, room service/diet, and visiting hours. Information on how to activate the Rapid Response Team has been discussed. Patient/Family are encouraged to report perceived risks to care and to ask questions if they do not understand what they are told or what they should do.
[2022-06-26 18:43] LABS: Glucose Point of Care 388 mg/dl (65-105)
[2022-06-26] MEDS: INSULIN ASPART (*BKC) 100 UNITS/ML SUB-Q ×2 (19:13→21:13)
[2022-06-26 20:33] LABS: Glucose Point of Care 347 mg/dl (65-105)
[2022-06-26] MEDS: INSULIN GLARGINE (*BKC) 100 UNITS/ML 10 UNITS SUB-Q (21:13)
[2022-06-26] MEDS: TICAGRELOR 90 MG TABLET PO (21:14)
[2022-06-27] VITALS (29 sets, daily range): BP systolic 116–158; BP diastolic 51–87; PULSE 71–103; RESP 15–20; TEMP 35.6–36.6; O2SAT 96–99
[2022-06-27 05:18] LABS: Basophils Percent Auto 0.6 % (0.2-1.2); Eosinophils Absolute Auto 0.1 K/mm3 (0-0.3); Eosinophils Percent Auto 2.1 % (0-4.4); Hematocrit 25.7 % (37.0-47.0); Hemoglobin 8.2 g/dL (12.0-15.0); Immature Granulocyte Absolute 0.03 K/mm3 (0.00-0.031); Immature Granulocyte Percent A 0.5 % (0-0.5); Lymphocytes Absolute Auto 1.12 K/mm3 (0.9-3.2); Mean Corpuscular HGB Conc 31.9 g/dl (32-36); Mean Corpuscular Hemoglobin 31.8 pg (26-34); Mean Corpuscular Volume 99.6 fl (80-100); Mean Platelet Volume 10.5 fl (7.4-10.4); Monocytes Absolute Auto 0.5 K/mm3 (0.1-0.6); Monocytes Percent Auto 7.4 % (2.6-8.5); Neutrophils Absolute Auto 4.8 K/mm3 (1.3-6.7); Neutrophils Percent Auto 72.4 % (45.5-73.1); Nucleated Red Blood Cells Perc 0.3 % (0.0-0.2); Platelet Count Result 174 k/mm3 (150-375); Red Blood Count 2.58 M/mm3 (4.2-5.4); Red Cell Distribution Width 16.3 % (11.5-14.5); White Blood Count 6.6 K/mm3 (4.5-10.0)
[2022-06-27 05:34] LABS: Alanine Aminotransferase 17 U/L (6-35); Albumin Level 3.6 g/dL (3.5-5.1); Alkaline Phosphatase 287 U/L (38-126); Anion Gap 12 mmol/L (8-16); Aspartate Amino Transferase 45 U/L (14-36); Bilirubin,Total 0.6 mg/dL (0.2-1.3); Blood Urea Nitrogen 50 mg/dL (7-17); Calcium 8.7 mg/dL (8.4-10.2); Carbon Dioxide 29 mmol/L (22-30); Chloride 91 mmol/L (98-107); Estimated CRCL calculation 15 ml/min; Estimated Glomerular Filt Rate 10; Glucose 155 mg/dL (65-110); Potassium 4.2 mmol/L (3.4-5.0); Sodium 132 mmol/L (137-145)
[2022-06-27] MEDS: HYDROmorphone HCL (*CRX) 0.5 MG TABLET PO (05:54)
[2022-06-27 08:22] LABS: Glucose Point of Care 156 mg/dl (65-105)
--- NOTE | 2022-06-27 08:38 | ECG_ITS ---
Measurements Intervals [place] Rate: 80 P: 78 ND: 172 QRS: 19 QRSD: 136 T: 160 QT: 410 QTc: 475 Interpretive Statements SINUS RHYTHM INTRAVENTRICULAR CONDUCTION DELAY [130+ ms QRS DURATION] ST-T WAVE ABNORMALITY IN THE INFEROLATERAL LEADS COMPARED TO ECG 06/26/2022 08:34:31 SINUS RHYTHM NOW PRESENT Electronically Signed On 06-27-2022 14:56:27 [employer] by Marly Benitez M.D.
[2022-06-27] MEDS: TICAGRELOR 90 MG TABLET PO ×2 (08:44→20:35)
[2022-06-27] MEDS: VITAMIN B CMPLX/VIT C/FOLIC AC 1 CAPSULE 1 CAP PO (08:45)
[2022-06-27] MEDS: PANTOPRAZOLE 40 MG TABLET PO (08:45)
[2022-06-27] MEDS: calcitrioL 0.25 MCG CAPSULE PO (08:45)
--- NOTE | 2022-06-27 08:45 | PM.CNCAR ---
Assessment and Plan Assessment and plan (1) Coronary artery disease: Code(s): I25.10 - Atherosclerotic heart disease of [place] coronary artery without angina pectoris Status: Acute Assessment and Plan: Coronary artery disease status post surgical revascularization in September of this year. She denies having any angina. This is stable. Continue aspirin, statin, Brilinta. Her troponin levels were sampled are elevated. She does have baseline elevation her troponin because of her end-stage renal disease. She is not complaining of any chest pain whatsoever. Would continue medical management for her CAD. Will check a D-dimer. If elevated, would recommend evaluating for PE, Though suspicion for this is low because she is not complaining of any chest pain or shortness of breath. (2) Systolic heart failure: Code(s): I50.20 - Unspecified systolic (congestive) heart failure Status: Acute Assessment and Plan: she has a mild ischemic cardiomyopathy with an EF of 40-50%. She does not appear to be in decompensated heart failure at this time. Volume removal with dialysis. (3) End stage renal disease on dialysis: Code(s): N18.6 - End stage renal disease; Z99.2 - Dependence on renal dialysis Status: Acute Assessment and Plan: On hemodialysis. Nephrology is following. History of Present Illness History of Present Illness Consult date/time: 06/27/22 08:45 Requesting physician: Ondina Mccullough NP Consult reason: Other (elevated troponin ) Reason For Visit: Hypotension/Chronic Anemia/Dialysis Narrative: Ms. Bhat is a 46 year old female with medical history of end-stage renal disease on dialysis, coronary artery disease status post PCI to the RCA as well as CABG x3 with left internal mammary artery to the left anterior descending, saphenous vein graft to the 1st obtuse marginal, and saphenous vein graft to the posterior descending branch of the right coronary artery in September of 2021 at [facility]. She also has an ischemic cardiomyopathy with an EF of 40-50%. This is a patient who presented to the emergency department yesterday from her dialysis treatment because she is experiencing sudden onset of a headache and shortness of breath. Troponin levels were drawn and were found to be elevated. Therefore, cardiology has been asked to see her in consultation. Review of Systems Constitutional: Constitutional: Denies chills, Denies fever(s), Denies headache(s) and Denies malaise Eyes: Eyes: Denies change in vision ENT: Reports Normal hearing present, Denies dizziness, Reports headache(s) and Denies hearing loss Cardiovascular: Cardiovascular: Denies chest pain, Denies chest pain at rest, Denies chest pain with activity, Denies syncope, Denies leg edema, Denies palpitations, Reports dyspnea and Denies dyspnea on exertion Respiratory: Respiratory: Denies cough, Denies dyspnea, Denies dyspnea on exertion and Denies wheezing Gastrointestinal: Gastrointestinal: Denies abdominal pain, Denies constipation and Denies diarrhea Genitourinary: Genitourinary: Denies hematuria and Denies dysuria Musculoskeletal: Musculoskeletal: Denies myalgias, Denies arthralgias and Denies muscle cramps Integumentary/Breasts: Skin/Breast: Denies wounds Neurologic: Reports Normal hearing present, Denies confusion, Denies dizziness, Denies syncope and Denies headache(s) Psychiatric: Psychiatric: Denies anxiety, Denies confusion and Denies depression Endocrine: Endocrine: Denies cold intolerance, Denies flushing, Denies heat intolerance and Denies palpitations Hematologic/Lymphatic: Hematologic/Lymphatic: Denies easy bleeding and Denies easy bruising Allergic/Immunologic: Allergic/Immunologic: Denies wheezing PMFSH Past Medical History Medical History Acute cholecystitis (~02/2021) Acute electrocardiogram changes Anasarca Anemia Cerebrovasc
[2022-06-27] MEDS: SEVELAMER CARBONATE 800 MG TABLET PO ×2 (08:46→17:58)
[2022-06-27] MEDS: ASPIRIN 81 MG ENTERIC TABLET PO (08:47)
[2022-06-27] MEDS: ATORVASTATIN 40 MG TABLET 80 MG PO (08:47)
[2022-06-27 16:35] LABS: Glucose Point of Care 187 mg/dl (65-105)
[2022-06-27 17:00] LABS: D Dimer 1.84 ug/mL (<0.48)
[2022-06-27 17:37] LABS: Hepatitis B Surface Antigen Negative (Negative)
[2022-06-27 17:55] LABS: Hepatitis B Surface Anti Res Indeterminate
[2022-06-27 17:56] LABS: Hepatitis B Surface Antigen 0.09 S/C
--- NOTE | 2022-06-27 18:45 | PM.IMPN ---
Progress Note: A&P Assessment and Plan (1) Hypotension: Code(s): I95.9 - Hypotension, unspecified Status: Acute Assessment and Plan: -hold correg -dialysis will be held tomorrow. -fluid boluses were given. -nephrology suggested an echo for pericardial effusion - she was given albumin - give albumin as needed 06/27/2022 interval history: patient is a 46-year-old female with history of end-stage renal disease on hemodialysis presented with complaint of shortness of breath suspect patient is volume overloaded, and currently patient seen in dialysis and being dialyzed is feels little better not as short of breath plan is to remove 3 L of fluids, patient states her headaches better now, patient also has elevated tropes unlikely acute coronary syndrome most likely chronic due to end-stage renal disease patient will be seen by die assembler and further recommendation to follow, patient is seen by Dr. Forbes her project drilling engineer. (2) Diabetes mellitus: Code(s): E11.9 - Type 2 diabetes mellitus without complications Status: Acute Assessment and Plan: -Accu-Cheks AC and HS with sliding scale insulin for glycemic Protonix -Continue with long-acting insulin -Type 1 dm (3) NOE (obstructive sleep apnea): Code(s): G47.33 - Obstructive sleep apnea (adult) (pediatric) Status: Acute Assessment and Plan: Continue with home settings for CPAP (4) Anemia: Code(s): D64.9 - Anemia, unspecified Status: Chronic Assessment and Plan: Chronic anemia secondary to end-stage renal disease Epogen ordered (5) Congestive heart failure: Code(s): I50.9 - Heart failure, unspecified Status: Acute Assessment and Plan: -echo ordered (6) Elevated troponin: Code(s): R77.8 - Other specified abnormalities of plasma proteins Status: Acute Assessment and Plan: Chronically elevated . -the patient is secondary to end-stage renal disease (7) GERD (gastroesophageal reflux disease): Code(s): K21.9 - Gastro-esophageal reflux disease without esophagitis Status: Acute Assessment and Plan: Continue pantoprazole (8) ESRD needing dialysis: Code(s): N18.6 - End stage renal disease; Z99.2 - Dependence on renal dialysis Status: Acute Assessment and Plan: She typically goes Friday. Hold dialysis tomorrow. continue sevelamer (9) Hypertension: Qualifiers: Hypertension type: unspecified Qualified Code(s): I10 - Essential (primary) hypertension Code(s): I10 - Essential (primary) hypertension Status: Chronic Assessment and Plan: Hold Coreg due to hypotension (10) CAD (coronary artery disease): Qualifiers: Coronary Disease-Associated Artery/Lesion type: [place] artery [place] vs. transplanted heart: [place] heart Associated angina: with stable angina Qualified Code(s): I25.118 - Atherosclerotic heart disease of [place] coronary artery with other forms of angina pectoris Code(s): I25.10 - Atherosclerotic heart disease of [place] coronary artery without angina pectoris Status: Acute Assessment and Plan: -continue with aspirin -continue with atorvastatin -hold Coreg -we can do not home with ticagrelor (11) Tobacco dependence: Code(s): F17.200 - Nicotine dependence, unspecified, uncomplicated Status: Chronic Assessment and Plan: Encouraged smoking cessation (12) Hyperlipidemia: Code(s): E78.5 - Hyperlipidemia, unspecified Status: Chronic Assessment and Plan: Continue with atorvastatin Subjective Date/time seen: 06/27/22 18:45 Shortness of breath HPI- Narrative: This is a 46-year-old female patient who is well known to our services.? She has a history of end-stage renal disease on dialysis Friday.? The patient went to dialysis but did not finish.? The patient developed sudden onset of h
[2022-06-27 20:23] LABS: Glucose Point of Care 481 mg/dl (65-105)
[2022-06-27] MEDS: INSULIN GLARGINE (*BKC) 100 UNITS/ML 10 UNITS SUB-Q (20:35)
[2022-06-27] MEDS: INSULIN ASPART (*BKC) 100 UNITS/ML SUB-Q (20:35)
[2022-06-27 23:45] LABS: Glucose Point of Care 263 mg/dl (65-105)
[2022-06-28] VITALS (29 sets, daily range): BP systolic 97–144; BP diastolic 46–76; PULSE 74–106; RESP 16–22; TEMP 35–36.6; O2SAT 98–100
--- NOTE | 2022-06-28 | ECHO_ITS ---
Patient Info Name: Pamela Bhat Age: 46 years : 1975 Gender: Female Ht: 65 in Wt: 191 lbs BSA: 2.02 m2 HR: 84 bpm BP: 116 / 56 mmHg Heart Rhythm: Sinus Rhythm Technical Quality: Good Exam Date: 06/28/2022 2:21 PM Exam Location: [facility] Pulmonary Exam Room: 212 Patient Status: Inpatient Admit Date: 06/26/2022 Staff Ordering Physician: Ondina Mccullough NP Distribution Engineer: Amaya Muse RCS Attending Provider: Man Gusman MD Referring Physician: Jamel NAIDU; Exam Type: CA echo doppler color flow Study Info Indications - short of breath on HD Complete two-dimensional, color flow and Doppler transthoracic echocardiogram is performed. Summary 1. Complete two-dimensional, color flow and Doppler transthoracic echocardiogram is performed. 2. Moderate left ventricular enlargement with systolic dysfunction estimated ejection fraction 35-40%. 3. Posterior segment akinesia. 4. Grade 2 diastolic noncompliance. 5. Enlarged left atrium. 6. Mild to moderate mitral and tricuspid valve regurgitation. Left Ventricle Left ventricular chamber dimension is moderately enlarged. Left ventricular systolic function is moderately reduced, estimated at 35-40%. The left ventricular diastolic function is grade II diastolic dysfunction. Right Ventricle Right ventricular chamber dimension is normal. Left Atria Left atrial chamber dimension is moderately enlarged. Right Atria Right atrial chamber dimension is mildly enlarged. Aortic Valve The aortic valve is trileaflet. There is mild aortic valve sclerosis. Pulmonic Valve The pulmonic valve is not well visualized. Mitral Valve The mitral valve has normal leaflets. There is mild to moderate mitral valve regurgitation. Tricuspid Valve The tricuspid valve leaflets are normal. There is mild to moderate tricuspid valve regurgitation. Pericardium/Pleural The pericardium appears normal. Aorta The aortic root size at the sinus of Valsalva is normal. Left Ventricular Outflow Tract Name Value Normal LVOT 2D LVOT Diameter 2.0 cm LVOT Doppler LVOT Peak Gradient 5 mmHg LVOT Mean Gradient 2 mmHg LVOT VTI 19 cm LVOT VTI/AV VTI Ratio 0.7 LVOT Stroke Volume 58 ml LVOT CO 12.5 l/min LVOT CI 6.2 l/min/m2 Pulmonic Valve Name Value Normal PV Doppler PV Peak Gradient 2 mmHg PV Regurgitation Doppler OK Peak End Diastolic Velocity 124 cm/s Mitral Valve Name
[2022-06-28] MEDS: HYDROmorphone HCL (*CRX) 2 MG TABLET PO (02:25)
[2022-06-28 07:54] LABS: Glucose Point of Care 214 mg/dl (65-105)
[2022-06-28] MEDS: INSULIN ASPART (*BKC) 100 UNITS/ML SUB-Q ×3 (08:19→20:36)
[2022-06-28] MEDS: SEVELAMER CARBONATE 800 MG TABLET PO ×3 (08:22→17:25)
[2022-06-28] MEDS: SODIUM CHLORIDE 0.9% IV 1,000 ML 999 ML IV CONT (11:13)
[2022-06-28] MEDS: HEPARIN SODIUM 1,000 UNITS/ML VIAL 1000 UNITS IV PUSH (11:14)
[2022-06-28] MEDS: HEPARIN SODIUM 1,000 UNITS/ML VIAL 500 UNITS IV PUSH (11:14)
[2022-06-28] MEDS: EPOETIN ALFA-EPBX 4,000 UNITS/ML VIAL 4000 UNITS IV PUSH (11:14)
--- NOTE | 2022-06-28 11:48 | PM.PNNEP ---
Progress Note: A&P Assessment and Plan (1) End stage renal disease on dialysis: Code(s): N18.6 - End stage renal disease; Z99.2 - Dependence on renal dialysis Status: Acute Assessment and Plan: End-stage renal disease And hypotension related to dialysis treatment, sustained for a while Type 1 diabetes mellitus and nephropathy Hypertensive renal disease Anemia chronic kidney disease Secondary hyperparathyroidism Status post right below-knee amputation Left lower extremity edema Plan: - End-stage renal disease: Hemodialysis supervised today 06/28. - Trying to see if she dialyzes up to 3.5 L today - Autonomic dysfunction is a possibility in the presence of diabetes mellitus - cardiology team following. - Has significant fluid retention. Will try to get patient optimally ultra filtered as able Subjective Date/time seen: 06/28/22 11:48 end-stage renal disease follow-up. Seen and examined on hemodialysis and hemodialysis Supervised. Using left upper arm AV fistula. She has a blood flow rate of 350 mL/min. Ultrafiltration goal will be about 3 to 3.5 L as tolerated. She does complain of shortness of breath. Review of Systems Review of Systems: complains of shortness of breath. Slight cough, nonproductive. Constitutional: Comments: Last echocardiogram from November 2021: Summary ? 1. Complete two-dimensional, color flow and Doppler transthoracic echocardiogram is performed. ? 2. Mild LV enlargement, moderate LVH, moderate global LV systolic dysfunction with mild spontaneous echo contrast, ejection fraction about 35-40%; diastolic dysfunction is present with elevated left atrial pressures. Mild left atrial enlargement.? Mild mitral annular calcification, mild mitral regurgitation.? Mild aortic valve calcification, mild aortic stenosis, valve area 1.8 cm2 by planimetry.? Normal tricuspid valve, [id number] tricuspid regurgitation, moderate pulmonary hypertension, RVSP 54 mmHg. Exam Narrative: Seen and examined on hemodialysis 06/28/2022. Alert and awake. On dialysis. JVD negative, regular tandem, bilateral crackles, diminished breath sounds bases, soft nontender abdomen, edema +on the left lower extremity. Alert and oriented. Objective Data Vital Signs Vital Signs: Vital Signs - 24 hr 06/27/22 12:00 06/27/22 14:00 06/27/22 16:00 Temperature Pulse Rate 83 83 Respiratory Rate Blood Pressure Pulse Oximetry Oxygen Delivery Room Air 06/27/22 16:00 06/27/22 12:00 06/27/22 12:20 Temperature Pulse Rate 89 81 80 Respiratory Rate Blood Pressure 137/66 136/63 Pulse Oximetry Oxygen Delivery 06/27/22 12:40 06/27/22 13:00 06/27/22 13:20 Temperature Pulse Rate 80 82 82 Respiratory Rate Blood Pressure 136/68 143/71 H 120/51 L Pulse Oximetry Oxygen Delivery 06/27/22 13:40 06/27/22 14:00 06/27/22 14:20 Temperature Pulse Rate 82 82 86 Respiratory Rate Blood Pressure 126/52 L 126/51 L 129/58 L Pulse Oximetry Oxygen Delivery 06/27/22 14:25 06/27/22 17:01 06/27/22 18:00 Temperature 36.6 C 35.8 C L Pulse Rate 83 87 87 Respiratory Rate 18 20 Blood Pressure 158/82 H 144/87 H Pulse Oximetry 98 Oxygen Delivery 06/27/22 20:00 06/27/22 20:00 06/27/22 20:00 Temperature 36.6 C Pulse Rate 80 89 Respiratory Rate 20 Blood Pressure 147/61 H Pulse Oximetry 98 98 Oxygen Delivery Room Air 06/27/22 22:00 06/27/22 23:48 06/28/22 00:00 Temperature 36.4 C Pulse Rate 85 83 Respiratory Rate 20 Blood Pressure 136/66 Pulse Oximetry 99 99 Oxygen Delivery Room Air 06/28/22 00:00 06/28/22 02:00 06/28/22 04:00 Temperature 36.4 C Pulse Rate 83 78 74 Respiratory Rate 20 Blood Pressure 139/46 L Pulse Oximetry 98 Oxygen Delivery 06/28/22 04:00 06/28/22 04:00 06/28/22 06:00 Temperature Pulse Rate 76 78 Respiratory Rate Blood Pressure Pulse Oximetry 98
[2022-06-28] MEDS: calcitrioL 0.25 MCG CAPSULE PO (12:47)
[2022-06-28] MEDS: VITAMIN B CMPLX/VIT C/FOLIC AC 1 CAPSULE 1 CAP PO (12:47)
[2022-06-28] MEDS: PANTOPRAZOLE 40 MG TABLET PO (12:47)
[2022-06-28] MEDS: ATORVASTATIN 40 MG TABLET 80 MG PO (12:47)
[2022-06-28] MEDS: TICAGRELOR 90 MG TABLET PO (12:48)
[2022-06-28 12:49] LABS: Glucose Point of Care 197 mg/dl (65-105)
--- NOTE | 2022-06-28 13:33 | PC.NURSE ---
3702- returned to room post dilaysis treatment via bed accompanied by staff. AxO - denies pain monitor SR
[2022-06-28] MEDS: ASPIRIN 81 MG ENTERIC TABLET PO (16:10)
[2022-06-28] MEDS: HYDROcodone/acetaminophen (*CRX) 5-325 MG TABLET 1 TAB PO ×2 (16:10→23:14)
[2022-06-28 17:30] LABS: Glucose Point of Care 266 mg/dl (65-105)
--- NOTE | 2022-06-28 17:32 | PM.IMPN ---
Progress Note: A&P Assessment and Plan (1) Hypotension: Code(s): I95.9 - Hypotension, unspecified Status: Acute Assessment and Plan: -hold correg -dialysis will be held tomorrow. -fluid boluses were given. -nephrology suggested an echo for pericardial effusion - she was given albumin - give albumin as needed 06/28/2022 interval history: patient is a 46-year-old female with history of end-stage renal disease on hemodialysis presented with complaint of shortness of breath suspect patient is volume overloaded, patient received dialysis and being dialyzed and remove 3 L of fluids, today patient states is still short of breath, patient D-dimer is elevated suspect patient may have PE, currently patient is on Brilinta and aspirin for coronary artery disease, the patient on heparin, will discuss with tire recapping machine operator to do CTA of the chest before dialysis and further recommendation to follow, patient states her headaches better now, patient also has elevated tropes unlikely acute coronary syndrome most likely chronic due to end-stage renal disease patient was seen by securities lending trader no ischemic workup is planned, her cardiac echo showed severe cardiomyopathy with ejection fraction 35-40% similar to last echo done in November of this year, patient is seen by Dr. Forbes her tire recapping machine operator. (2) Diabetes mellitus: Code(s): E11.9 - Type 2 diabetes mellitus without complications Status: Acute Assessment and Plan: -Accu-Cheks AC and HS with sliding scale insulin for glycemic Protonix -Continue with long-acting insulin -Type 1 dm (3) NOE (obstructive sleep apnea): Code(s): G47.33 - Obstructive sleep apnea (adult) (pediatric) Status: Acute Assessment and Plan: Continue with home settings for CPAP (4) Anemia: Code(s): D64.9 - Anemia, unspecified Status: Chronic Assessment and Plan: Chronic anemia secondary to end-stage renal disease Epogen ordered (5) Congestive heart failure: Code(s): I50.9 - Heart failure, unspecified Status: Acute Assessment and Plan: -echo ordered (6) Elevated troponin: Code(s): R77.8 - Other specified abnormalities of plasma proteins Status: Acute Assessment and Plan: Chronically elevated . -the patient is secondary to end-stage renal disease (7) GERD (gastroesophageal reflux disease): Code(s): K21.9 - Gastro-esophageal reflux disease without esophagitis Status: Acute Assessment and Plan: Continue pantoprazole (8) ESRD needing dialysis: Code(s): N18.6 - End stage renal disease; Z99.2 - Dependence on renal dialysis Status: Acute Assessment and Plan: She typically goes Friday. Hold dialysis tomorrow. continue sevelamer (9) Hypertension: Qualifiers: Hypertension type: unspecified Qualified Code(s): I10 - Essential (primary) hypertension Code(s): I10 - Essential (primary) hypertension Status: Chronic Assessment and Plan: Hold Coreg due to hypotension (10) CAD (coronary artery disease): Qualifiers: Coronary Disease-Associated Artery/Lesion type: [place] artery [place] vs. transplanted heart: [place] heart Associated angina: with stable angina Qualified Code(s): I25.118 - Atherosclerotic heart disease of [place] coronary artery with other forms of angina pectoris Code(s): I25.10 - Atherosclerotic heart disease of [place] coronary artery without angina pectoris Status: Acute Assessment and Plan: -continue with aspirin -continue with atorvastatin -hold Coreg -we can do not home with ticagrelor (11) Tobacco dependence: Code(s): F17.200 - Nicotine dependence, unspecified, uncomplicated Status: Chronic Assessment and Plan: Encouraged smoking cessation (12) Hyperlipidemia: Code(s): E78.5 - Hyperlipidemia, unspecified Status: Chronic Assessment and Plan
[2022-06-28 19:15] LABS: Basophils Percent Auto 0.5 % (0.2-1.2); Eosinophils Absolute Auto 0.1 K/mm3 (0-0.3); Eosinophils Percent Auto 0.9 % (0-4.4); Hematocrit 27.1 % (37.0-47.0); Hemoglobin 8.2 g/dL (12.0-15.0); Immature Granulocyte Absolute 0.02 K/mm3 (0.00-0.031); Immature Granulocyte Percent A 0.4 % (0-0.5); Lymphocytes Absolute Auto 1.04 K/mm3 (0.9-3.2); Lymphocytes Percent Auto 18.4 % (18.3-44.2); Mean Corpuscular HGB Conc 30.3 g/dl (32-36); Mean Corpuscular Hemoglobin 31.3 pg (26-34); Mean Corpuscular Volume 103.4 fl (80-100); Mean Platelet Volume 10.6 fl (7.4-10.4); Monocytes Absolute Auto 0.4 K/mm3 (0.1-0.6); Monocytes Percent Auto 6.6 % (2.6-8.5); Neutrophils Absolute Auto 4.1 K/mm3 (1.3-6.7); Neutrophils Percent Auto 73.2 % (45.5-73.1); Nucleated Red Blood Cells Perc 0.4 % (0.0-0.2); Platelet Count Result 160 k/mm3 (150-375); Red Blood Count 2.62 M/mm3 (4.2-5.4); Red Cell Distribution Width 16.7 % (11.5-14.5); White Blood Count 5.6 K/mm3 (4.5-10.0)
[2022-06-28] MEDS: HEPARIN SOD/D5W 100 UNITS/ML 25,000 UNITS/250 ML BAG 12 UNITS IV CONT (19:29)
[2022-06-28 19:31] LABS: INR 1.5; Prothrombin Time 17.3 Seconds (11.1-14.7)
[2022-06-28 19:32] LABS: Partial Thromboplastin Time 31.3 SECONDS (22.3-36.8)
[2022-06-28 20:32] LABS: Glucose Point of Care 342 mg/dl (65-105)
[2022-06-28] MEDS: INSULIN GLARGINE (*BKC) 100 UNITS/ML 10 UNITS SUB-Q (20:37)
[2022-06-29] VITALS (17 sets, daily range): BP systolic 99–138; BP diastolic 42–65; PULSE 73–107; RESP 14–20; TEMP 36–36.8; O2SAT 98–100
[2022-06-29 02:03] LABS: Partial Thromboplastin Time 57.6 SECONDS (22.3-36.8)
[2022-06-29] MEDS: HEPARIN SODIUM 5,000 UNITS/ML VIAL 2500 UNITS IV PUSH (02:32)
[2022-06-29] MEDS: HYDROcodone/acetaminophen (*CRX) 5-325 MG TABLET 1 TAB PO (05:12)
[2022-06-29 08:14] LABS: Glucose Point of Care 113 mg/dl (65-105)
[2022-06-29 09:22] LABS: Basophils Percent Auto 0.5 % (0.2-1.2); Eosinophils Absolute Auto 0.2 K/mm3 (0-0.3); Eosinophils Percent Auto 2.3 % (0-4.4); Hematocrit 27.3 % (37.0-47.0); Hemoglobin 8.3 g/dL (12.0-15.0); Immature Granulocyte Absolute 0.03 K/mm3 (0.00-0.031); Immature Granulocyte Percent A 0.4 % (0-0.5); Lymphocytes Absolute Auto 1.92 K/mm3 (0.9-3.2); Lymphocytes Percent Auto 25.9 % (18.3-44.2); Mean Corpuscular HGB Conc 30.4 g/dl (32-36); Mean Corpuscular Hemoglobin 31.1 pg (26-34); Mean Corpuscular Volume 102.2 fl (80-100); Mean Platelet Volume 10.1 fl (7.4-10.4); Monocytes Absolute Auto 0.6 K/mm3 (0.1-0.6); Monocytes Percent Auto 7.5 % (2.6-8.5); Neutrophils Absolute Auto 4.7 K/mm3 (1.3-6.7); Neutrophils Percent Auto 63.4 % (45.5-73.1); Nucleated Red Blood Cells Perc 0.3 % (0.0-0.2); Platelet Count Result 157 k/mm3 (150-375); Red Blood Count 2.67 M/mm3 (4.2-5.4); Red Cell Distribution Width 16.7 % (11.5-14.5); White Blood Count 7.4 K/mm3 (4.5-10.0)
[2022-06-29] MEDS: SEVELAMER CARBONATE 800 MG TABLET PO ×2 (09:28→11:46)
[2022-06-29] MEDS: VITAMIN B CMPLX/VIT C/FOLIC AC 1 CAPSULE 1 CAP PO (09:28)
[2022-06-29] MEDS: ASPIRIN 81 MG ENTERIC TABLET PO (09:28)
[2022-06-29] MEDS: ATORVASTATIN 40 MG TABLET 80 MG PO (09:28)
[2022-06-29] MEDS: calcitrioL 0.25 MCG CAPSULE PO (09:29)
[2022-06-29] MEDS: PANTOPRAZOLE 40 MG TABLET PO (09:29)
[2022-06-29 09:34] LABS: Partial Thromboplastin Time 96.6 SECONDS (22.3-36.8)
[2022-06-29 09:41] LABS: Albumin Level 3.6 g/dL (3.5-5.1); Anion Gap 8 mmol/L (8-16); Blood Urea Nitrogen 22 mg/dL (7-17); Calcium 8.8 mg/dL (8.4-10.2); Carbon Dioxide 34 mmol/L (22-30); Chloride 92 mmol/L (98-107); Estimated CRCL calculation 21 ml/min; Estimated Glomerular Filt Rate 15; Glucose 117 mg/dL (65-110); Phosphorus 5.1 mg/dL (2.5-4.5); Potassium 3.8 mmol/L (3.4-5.0); Sodium 134 mmol/L (137-145)
[2022-06-29] MEDS: SALINE LOCK FLUSH 10 ML IV PUSH (11:46)
[2022-06-29 12:54] LABS: Glucose Point of Care 178 mg/dl (65-105)
--- NOTE | 2022-06-29 16:42 | PM.DS ---
DS: Admitting Diagnosis Discharge Date 06/29/2022 Admitting Diagnosis shortness of breath DS: Discharge Diagnosis Discharge Diagnosis (1) Hypotension: Code(s): I95.9 - Hypotension, unspecified Status: Acute Assessment and Plan: -hold correg -dialysis will be held tomorrow. -fluid boluses were given. -nephrology suggested an echo for pericardial effusion - she was given albumin - give albumin as needed 06/28/2022 interval history: patient is a 46-year-old female with history of end-stage renal disease on hemodialysis presented with complaint of shortness of breath suspect patient is volume overloaded, patient received dialysis and being dialyzed and remove 3 L of fluids, today patient states is still short of breath, patient D-dimer is elevated suspect patient may have PE, currently patient is on Brilinta and aspirin for coronary artery disease, the patient on heparin, will discuss with laborer hoisting to do CTA of the chest before dialysis and further recommendation to follow, patient states her headaches better now, patient also has elevated tropes unlikely acute coronary syndrome most likely chronic due to end-stage renal disease patient was seen by c s s representative no ischemic workup is planned, her cardiac echo showed severe cardiomyopathy with ejection fraction 35-40% similar to last echo done in November of this year, patient is seen by Dr. Forbes her laborer hoisting. (2) Diabetes mellitus: Code(s): E11.9 - Type 2 diabetes mellitus without complications Status: Acute Assessment and Plan: -Accu-Cheks AC and HS with sliding scale insulin for glycemic Protonix -Continue with long-acting insulin -Type 1 dm (3) NOE (obstructive sleep apnea): Code(s): G47.33 - Obstructive sleep apnea (adult) (pediatric) Status: Acute Assessment and Plan: Continue with home settings for CPAP (4) Anemia: Code(s): D64.9 - Anemia, unspecified Status: Chronic Assessment and Plan: Chronic anemia secondary to end-stage renal disease Epogen ordered (5) Congestive heart failure: Code(s): I50.9 - Heart failure, unspecified Status: Acute Assessment and Plan: -echo ordered (6) Elevated troponin: Code(s): R77.8 - Other specified abnormalities of plasma proteins Status: Acute Assessment and Plan: Chronically elevated . -the patient is secondary to end-stage renal disease (7) GERD (gastroesophageal reflux disease): Code(s): K21.9 - Gastro-esophageal reflux disease without esophagitis Status: Acute Assessment and Plan: Continue pantoprazole (8) ESRD needing dialysis: Code(s): N18.6 - End stage renal disease; Z99.2 - Dependence on renal dialysis Status: Acute Assessment and Plan: She typically goes Friday. Hold dialysis tomorrow. continue sevelamer (9) Hypertension: Qualifiers: Hypertension type: unspecified Qualified Code(s): I10 - Essential (primary) hypertension Code(s): I10 - Essential (primary) hypertension Status: Chronic Assessment and Plan: Hold Coreg due to hypotension (10) CAD (coronary artery disease): Qualifiers: Coronary Disease-Associated Artery/Lesion type: [place] artery [place] vs. transplanted heart: three [place] heart Associated angina: with stable angina Qualified Code(s): I25.118 - Atherosclerotic heart disease of [place] coronary artery with other forms of angina pectoris Code(s): I25.10 - Atherosclerotic heart disease of three [place] coronary artery without angina pectoris Status: Acute Assessment and Plan: -continue with aspirin -continue with atorvastatin -hold Coreg -we can do not home with ticagrelor (11) Tobacco dependence: Code(s): F17.200 - Nicotine dependence, unspecified, uncomplicated Status: Chronic Assessment and Plan: Encouraged smoking cessation (12) Hyperlipidemia:
[2022-06-29 17:39] LABS: Glucose Point of Care 204 mg/dl (65-105)
[2022-06-29] MEDS: INSULIN ASPART (*BKC) 100 UNITS/ML SUB-Q (18:22)
== END 2022-06-29 18:40 | disposition home or self-care (01) | DRG 312 ==
LOC: ANHED 09:09 → ANHIMU 17:39
PROVIDERS: Internal Medicine Nephrology; Nurse Practitioner; Admitting Provider Internal Medicine; Emergency Provider General Practice; PCP Internal Medicine; Visit Provider Family Medicine
DX: I95.3 Hypotension of hemodialysis (principal); G93.5 Compression of brain; N18.6 End stage renal disease; I13.2 Hypertensive heart and chronic kidney disease with heart failure and with stage 5 chronic kidney disease, or end stage renal disease; N25.81 Secondary hyperparathyroidism of renal origin; I50.22 Chronic systolic (congestive) heart failure; I31.39 Other pericardial effusion (noninflammatory); Z20.822 Contact with and (suspected) exposure to COVID-19; I50.9 Heart failure, unspecified; K21.9 Gastro-esophageal reflux disease without esophagitis; R77.8 Other specified abnormalities of plasma proteins; D63.1 Anemia in chronic kidney disease; I25.5 Ischemic cardiomyopathy; G47.33 Obstructive sleep apnea (adult) (pediatric); I25.10 Atherosclerotic heart disease of native coronary artery without angina pectoris; E78.5 Hyperlipidemia, unspecified; F17.210 Nicotine dependence, cigarettes, uncomplicated; Z99.2 Dependence on renal dialysis; N25.0 Renal osteodystrophy; E10.22 Type 1 diabetes mellitus with diabetic chronic kidney disease; E10.43 Type 1 diabetes mellitus with diabetic autonomic (poly)neuropathy; Z86.73 Personal history of transient ischemic attack (TIA), and cerebral infarction without residual deficits; Z89.422 Acquired absence of other left toe(s); Z95.5 Presence of coronary angioplasty implant and graft; Z90.49 Acquired absence of other specified parts of digestive tract; Z89.511 Acquired absence of right leg below knee; Z79.82 Long term (current) use of aspirin; Z79.4 Long term (current) use of insulin; Z95.1 Presence of aortocoronary bypass graft
CPT/HCPCS: 36415; 36569; 36600; 70450; 71045; 71275; 80053; 80069; 82375; 82805; 82948; 83050; 83605; 83690; 83735; 83880; 84484; 85025; 85027; 85380; 85610; 85730; 86706; 86850; 86900; 86901; 87040; 87340; 87636; 93005; 93306; 96361; 96365; 96376; 99285; A9270; C1751; G0257; G0378; J0131; J1644; J1815; J7030; J7040; Q5105; Q9967

== ENCOUNTER 2022-07-07 14:47 | Inpatient (IN) | payer OTHER, MEDICARE, MEDICAID, SELFPAY ==
--- NOTE | ~2022-07-07 | XR_ITS ---
EXAMINATION: XR chest 1V portable Exam Date/Time: 07/07/2022 16:30 MACHINE SHOP INSPECTOR HISTORY: sob, WEAKNESS, EMISIS, HX DIALYSIS Comparison: 06/26/2022. RESULT: Lines, tubes, and devices: Intact sternotomy wires. Lungs and pleura: Persistent but improved subsegmental airspace opacities in the left lower lung, im proved visualization of the left hemidiaphragm, slightly decreased left costophrenic angle blunting. Cardiomediastinal silhouette: Stable. Other: No acute osseous or upper abdominal finding. IMPRESSION: Persistent but improving left basilar atelectasis and small left effusion. Reviewed, dictated and finalized at location K. INE SHOP INSPECTOR
--- NOTE | ~2022-07-07 | CT_ITS ---
EXAMINATION: CT abdomen pelvis wo con DATE: 07/07/2022 17:36 INDICATION: right lower abdominal pain, vomiting TECHNIQUE: Computed tomography (CT) of the abdomen and pelvis was performed without intravenous contr ast. Automated exposure control and iterative reconstruction technique were employed. The dose-length product was 733.98 mGy-cm. COMPARISON: 05/02/2022. FINDINGS: Lower thorax: Dependent groundglass opacities and subsegmental basilar consolidation. Small bilateral effusions. Hepatomegaly. Coronary artery calcification. Liver: Nodular liver border. Hepatomegaly. Biliary/Gallbladder: Gallbladder is absent. No bile duct dilation. Pancreas: No mass or duct dilation. Spleen: Normal. Adrenals:No mass. Kidneys: Bilateral atrophy. GI tract: No small or large bowel dilation. Appendix is normal. Mesentery/Peritoneum: No mass or free air. Small volume free fluid. Diffuse mesenteric edema. Retroperitoneum: No mass. Atherosclerotic abdominal aortic and/or arterial calcifications. Pelvis: Pelvic organs are within normal limits. Soft Tissues: Diffuse severe body wall edema. Bones: No acute osseous finding. IMPRESSION: Cirrhosis. Small volume ascites. Diffuse body wall edema. Reviewed, dictated and finalized at location K. CIPAL ENGINEER
--- NOTE | ~2022-07-07 | US_ITS ---
EXAMINATION: US abdomen limited DATE: 07/09/2022 19:33 INDICATION: Cirrhosis on CT TECHNIQUE: Multiple grayscale and Doppler ultrasound images of limited portions of the abdomen were o btained. COMPARISON: CT abdomen and pelvis 07/07/2022. FINDINGS: Not visualized The liver is enlarged with normal echogenicity and echotexture. Suggestion o f surface nodularity. Normal hepatopetal flow in the main portal vein. The gallbladder is not visuali zed. The common bile duct measures 3 mm. Small volume perihepatic fluid. IMPRESSION: Pancreas and gallbladder not visualized. Hepatomegaly and cirrhosis. Reviewed, dictated and finalized at location K. LATION GENETICIST
[2022-07-07 15:24] VITALS: BP 158/82; PULSE 97; RESP 18; TEMP 36.8; O2SAT 100
[2022-07-07 15:38] LABS: Glucose Point of Care 332 mg/dl (65-105)
--- NOTE | 2022-07-07 16:23 | ECG_ITS ---
Measurements Intervals [place] Rate: 92 P: 68 VA: 196 QRS: 47 QRSD: 152 T: 84 QT: 405 QTc: 503 Interpretive Statements SINUS RHYTHM POSSIBLE LEFT ATRIAL ENLARGEMENT LEFT BUNDLE BRANCH BLOCK ABNORMAL ECG COMPARED TO ECG 06/27/2022 09:45:05 NO SIGNIFICANT CHANGES Electronically Signed On 07-07-2022 20:45:44 BOAT OUTFITTING SUPERVISOR by Misael Ahmadi D.O.
[2022-07-07 16:25] LABS: Basophils Percent Auto 0.4 % (0.2-1.2); Hematocrit 39.3 % (37.0-47.0); Immature Granulocyte Absolute 0.05 K/mm3 (0.00-0.031); Immature Granulocyte Percent A 0.5 % (0-0.5); Lymphocytes Percent Auto 7.3 % (18.3-44.2); Mean Corpuscular HGB Conc 30.5 g/dl (32-36); Mean Corpuscular Hemoglobin 31.9 pg (26-34); Mean Corpuscular Volume 104.5 fl (80-100); Mean Platelet Volume 10.5 fl (7.4-10.4); Monocytes Absolute Auto 0.3 K/mm3 (0.1-0.6); Monocytes Percent Auto 2.3 % (2.6-8.5); Neutrophils Absolute Auto 9.9 K/mm3 (1.3-6.7); Neutrophils Percent Auto 89.5 % (45.5-73.1); Nucleated Red Blood Cells Absolute Auto 0.1 K/mm3 (0.0-0.012); Nucleated Red Blood Cells Perc 0.5 % (0.0-0.2); Platelet Count Result 309 k/mm3 (150-375); Red Blood Count 3.76 M/mm3 (4.2-5.4); Red Cell Distribution Width 18.8 % (11.5-14.5)
--- NOTE | 2022-07-07 16:35 | ED.NAVMDI ---
HPI - Nausea/Vomiting/Diarrhea General Chief complaint: Nausea/Vomiting/Diarrhea Stated complaint: vomiting Time Seen by Provider: 07/07/22 16:12 Source: patient, RN notes reviewed and old records reviewed Mode of arrival: wheelchair Limitations: no limitations History of Present Illness HPI Narrative: This is a 46 year old female with history of ESRD on dialysis, DM, CAD, PAD who presents for evaluation of vomiting and diarrhea. Patient states she developed nausea, vomiting and diarrhea on Friday. She states her reports she was vomiting dark substance but she is not sure. She also reports diarrhea that is improving. She had 2 episodes today. She developed lower abdominal pain that is constant. She receives dialysis on Friday, Friday, and Friday. She is due to dialysis tomorrow. She reports that she is fluid overloaded and she reports sob. She denies fever or chills. Denies complication with her BKA. MD elicited complaint: nausea and vomiting Related Data Home Medications Medication Instructions Recorded Confirmed aspirin 81 mg tablet,delayed 81 mg PO DAILY 12/20/20 06/26/22 release sevelamer carbonate 800 mg tablet 800 mg PO TIDWM 03/13/21 06/26/22 pantoprazole 40 mg tablet,delayed 40 mg PO DAILY 09/03/21 06/26/22 release carvedilol 6.25 mg tablet 6.25 mg PO Q12H 02/20/22 06/26/22 ticagrelor 90 mg tablet 90 mg PO Q12H 02/20/22 06/26/22 insulin glargine 100 unit/mL (3 10 unit subcut HS 02/28/22 06/26/22 mL) subcutaneous pen (Lantus Solostar U-100 Insulin) insulin lispro 100 unit/mL 7 unit subcut TIDWMEAL 02/28/22 06/26/22 subcutaneous pen (Humalog KwikPen (U-100) Insulin) insulin lispro 100 unit/mL See Protocol subcut TIDWMEAL 02/28/22 06/26/22 subcutaneous solution (Humalog U-100 Insulin) vitamin B complex-vitamin C-folic 0.8 tablet PO DAILY 03/06/22 06/26/22 acid 0.8 mg tablet (Renal Vitamin) atorvastatin 80 mg tablet 80 mg PO DAILY 05/02/22 06/26/22 hydrocodone 7.5 mg-acetaminophen 1 tablet PO Q4-6H PRN Pain 06/26/22 06/26/22 325 mg tablet Allergies Allergy/AdvReac Type Severity Reaction Status Date / Time No Known Drug Allergies Allergy Unknown Verified 02/25/22 19:45 Review of Systems Constitutional: Constitutional: Denies chills, Reports fever(s) (subjective) and Reports weakness Cardiovascular: Cardiovascular: Denies syncope, Denies rapid heart rate, Denies irregular heart rhythm, Denies leg edema and Denies dyspnea Respiratory: Respiratory: Denies chest congestion, Reports cough, Denies hemoptysis, Denies excessive phlegm production and Reports dyspnea Gastrointestinal: Gastrointestinal: Reports abdominal pain, Denies hematochezia, Reports diarrhea, Reports nausea and Reports vomiting Genitourinary: Genitourinary: Denies hematuria and Denies dysuria Musculoskeletal: Musculoskeletal: Denies joint swelling, Denies loss of height and Denies muscle weakness Neurologic: Denies syncope, Denies focal weakness and Denies weakness [facility] Past Medical History Medical History Acute cholecystitis (~02/2021) Acute electrocardiogram changes Anasarca Anemia Cerebrovascular accident Small old lacunar infarct at the head of the right caudate nucleus. Chest pain Chiari I malformation Chronic osteomyelitis Status post toe amputations Congestive heart failure Coronary artery disease Status post stent to the right coronary artery in August 2020. End-stage renal disease on hemodialysis On dialysis since June 2019. Erythropoietin deficiency anemia Esophagitis determined by endoscopy (12/2019) Gastroparesis due to DM Hyperlipidemia Hypokalemia Nausea & vomiting Pulmonary edema Renal osteodystrophy Surgical History Surgical History Amputation of toe Two on the left AV fistula Left forearm History of section, classical X2 History of coronary ar
[2022-07-07] MEDS: PANTOPRAZOLE SODIUM IV 40 MG VIAL IV PUSH (16:46)
[2022-07-07] MEDS: ONDANSETRON INJ 4 MG/2 ML VIAL IV PUSH ×3 (16:46→21:09)
[2022-07-07] MEDS: SODIUM CHLORIDE 0.9% IV 500 ML 999 ML IV CONT (16:47)
[2022-07-07 17:22] LABS: Alveolar/Arterial O2 Gradient 47.2 mmHg; Base Excess ABG 5.9 mEq/l (+/-2.0); Carboxyhemoglobin 1.6 % THb (0-2.0); Fractional Inspired Oxygen 21 %; HCO3 ABG 29.7 mEq/l (22.0-26.0); Methemoglobin ABG 0.1 %THb (0-1.5); Oxygen Content ABG 13.3 %vol (16.0-22.0); Oxygen Saturation ABG 90.8 % (95.0-100.0); PCO2 ABG 39.9 mmHg (35.0-45.0); PO2 ABG 54.8 mmHg (80.0-100.0); PO2 FiO2 Ratio Arterial Blood 2.61 %; Reduced Hemoglobin 13.3 %THb (0-5.0); Total Hemoglobin 11.1 g/dL (12.0-18.0); pH ABG 7.489 (7.350-7.450)
[2022-07-07 17:23] LABS: Device ROOM AIR; Modified Allen's Test Pass; Site Drawn RIGHT BRACHIAL
[2022-07-07 17:37] LABS: Alanine Aminotransferase 29 U/L (6-35); Albumin Level 2.9 g/dL (3.5-5.1); Alkaline Phosphatase 276 U/L (38-126); Anion Gap 13 mmol/L (8-16); Aspartate Amino Transferase 33 U/L (14-36); Bilirubin,Total 0.9 mg/dL (0.2-1.3); Blood Urea Nitrogen 39 mg/dL (7-17); Calcium 6.5 mg/dL (8.4-10.2); Carbon Dioxide 22 mmol/L (22-30); Chloride 104 mmol/L (98-107); Estimated CRCL calculation 20 ml/min; Estimated Glomerular Filt Rate 14; Glucose 252 mg/dL (65-110); Lipase 42 U/L (23-300); Sodium 139 mmol/L (137-145)
[2022-07-07 18:03] LABS: Influenza A QL RT-PCR Negative (Negative); Influenza B QL RT-PCR Negative (Negative); SARS-CoV-2 RNA PCR Negative
--- NOTE | 2022-07-07 18:29 | PC.NURSE ---
asked pt if she was able to provide a urine sample pt states she is not able to. pt refusing straight catheter.
[2022-07-07] MEDS: FUROSEMIDE INJ 100 MG/10 ML VIAL IV PUSH (18:41)
[2022-07-07 18:42] VITALS: BP 145/65; PULSE 96; RESP 28; O2SAT 100
[2022-07-07 18:43] LABS: INR 1.4; Prothrombin Time 16.1 Seconds (11.1-14.7)
[2022-07-07 18:44] VITALS: O2SAT 100
[2022-07-07 18:44] LABS: Partial Thromboplastin Time 27.7 SECONDS (22.3-36.8)
--- NOTE | 2022-07-07 19:37 | PC.NURSE ---
bedside glucose 346
--- NOTE | 2022-07-07 19:38 | PC.NURSE ---
Patient with oliguria. Refused urinary cath for urine sample
[2022-07-07 19:39] LABS: Glucose Point of Care 346 mg/dl (65-105)
[2022-07-07] MEDS: INSULIN HUMAN REGULAR (*BKC) 100 UNITS/ML 7 UNITS SUB-Q (20:02)
[2022-07-07] MEDS: SODIUM CHLORIDE 0.9% IV 1,000 ML 50 ML IV CONT ×2 (20:03→21:15)
[2022-07-07 20:08] VITALS: BP 142/89; PULSE 89; RESP 18; TEMP 36.8; O2SAT 99
[2022-07-07 20:25] LABS: Reflex Lactic Acid Yes or No Add Lactic
[2022-07-07 20:28] VITALS: BMI 31.4
[2022-07-07 20:40] VITALS: BP 146/77; PULSE 88; RESP 18; TEMP 36.3; O2SAT 100; BMI 32.3
[2022-07-07] MEDS: HYDROcodone/acetaminophen (*CRX) 7.5-325 MG TABLET 1 TAB PO (21:33)
--- NOTE | 2022-07-07 22:17 | PM.IMHP ---
H&P: HPI History of Present Illness Date/Time: 07/07/22 22:17 Chief Complaint: Nausea vomiting diarrhea Narrative: this is a 46-year-old female patient who has end-stage renal disease with dialysis on Friday. Dr. Forbes is her mechanical technical service specialist. The patient stated she had nausea vomiting and diarrhea on Friday the reported that she was vomiting dark blood. She stated the diarrhea is improving. The patient had 2 episodes of diarrhea today. The patient complained of shortness breath and stated that she was having fluid overload. No fever chills. WBC 11.0. Arterial blood gases pH 7.489 bicarb 29.7. BUN 39 creatinine 3.4. Glucose 252. Lactic acid 4.0. Calcium 6.5. Patient was given Zofran, Protonix, IV fluids, Lasix, and insulin. Patient is being admitted to observation status on the date of service of 07/07/2022 Review of Systems Review of Systems: see HPI All systems reviewed & are unremarkable except as noted in HPI and below Constitutional: Constitutional: Reports as per HPI and Reports no additional constitutional complaints Eyes: Eyes: Reports as per HPI and Reports no additional eye complaints ENT: Reports system reviewed and no additional complaints, except as documented and Reports Normal hearing present Cardiovascular: Cardiovascular: Reports no additional cardiovascular complaints Respiratory: Respiratory: Reports no additional respiratory complaints and Reports no additional respiratory complaints Gastrointestinal: Gastrointestinal: Reports as per HPI and Reports no additional gastrointestinal complaints Musculoskeletal: Musculoskeletal: Reports no additional musculoskeletal complaints Integumentary/Breasts: Skin/Breast: Reports system reviewed and no additional complaints, except as docu and Reports as per HPI Neurologic: Reports system reviewed and no additional complaints, except as documented, Reports as per HPI and Reports Normal hearing present Psychiatric: Psychiatric: Reports no additional psychiatric complaints and Reports as per HPI Endocrine: Endocrine: Reports no additional endocrine complaints Hematologic/Lymphatic: Hematologic/Lymphatic: Reports no additional hematologic/lymphatic complaints Allergic/Immunologic: Allergic/Immunologic: Reports no additional allergic/immunologic complaints [facility] Past Medical History Medical History (Updated 07/08/22 @ 01:09 by Ondina Mccullough NP) Acute cholecystitis (~02/2021) Acute electrocardiogram changes Anasarca Anemia Cardiac arrest Cerebrovascular accident Small old lacunar infarct at the head of the right caudate nucleus. Chest pain Chiari I malformation Chronic osteomyelitis Status post toe amputations Congestive heart failure Coronary artery disease Status post stent to the right coronary artery in August 2020. End-stage renal disease on hemodialysis On dialysis since June 2019. Erythropoietin deficiency anemia Esophagitis determined by endoscopy (12/2019) Gastroparesis due to DM Hyperlipidemia Hypokalemia Nausea & vomiting Pulmonary edema Renal osteodystrophy Surgical History Surgical History Amputation of toe Two on the left AV fistula Left forearm History of section, classical X2 History of coronary artery stent placement times 3 History of laparoscopic cholecystectomy (03/15/21) History of myringotomy History of repair of rotator cuff History of tonsillectomy and adenoidectomy History of tubal ligation Hx of myringotomy Hx of right BKA Status post lateral meniscus repair Family History Family History Other Adopted Social History Social History Social History: She has 2 children and she lives with her of 28 years. She is on disability. She smoked up to a pack of cigarettes a day since the age of 16 but n
[2022-07-08] VITALS (18 sets, daily range): BP systolic 119–157; BP diastolic 55–84; PULSE 70–84; RESP 16–20; TEMP 36–36.9; O2SAT 99–100
[2022-07-08 06:08] LABS: Glucose Point of Care 188 mg/dl (65-105)
[2022-07-08] MEDS: ONDANSETRON INJ 4 MG/2 ML VIAL IV PUSH (07:31)
--- NOTE | 2022-07-08 07:48 | ADMGEN ---
This patient, Pamela Bhat, was admitted to [facility] Surg Room 323-01. Patient/family oriented to hospital policies and general routines including ID bracelet, bed and alarms, visiting hours, pain management, procedures, bathroom and other care routines, personal items, smoking policy, room service/diet, and visiting hours. Information on how to activate the Rapid Response Team has been discussed. Patient/Family are encouraged to report perceived risks to care and to ask questions if they do not understand what they are told or what they should do.
[2022-07-08] MEDS: ATORVASTATIN 40 MG TABLET 80 MG PO (08:31)
[2022-07-08] MEDS: ASPIRIN 81 MG ENTERIC TABLET PO (08:31)
[2022-07-08] MEDS: calcitrioL 0.25 MCG CAPSULE PO (08:32)
[2022-07-08] MEDS: TICAGRELOR 90 MG TABLET PO ×2 (08:32→20:28)
[2022-07-08] MEDS: VITAMIN B CMPLX/VIT C/FOLIC AC 1 CAPSULE 1 CAP PO (08:32)
[2022-07-08 08:48] LABS: Glucose Point of Care 178 mg/dl (65-105)
--- NOTE | 2022-07-08 11:23 | PM.CNNEP ---
Assessment and Plan Assessment and plan (1) ESRD on dialysis: Code(s): N18.6 - End stage renal disease; Z99.2 - Dependence on renal dialysis Status: Acute Assessment and Plan: End-stage renal disease anasarca, fluid retention, ascites, cirrhosis, body wall edema, small left pleural effusion, shortness of breath diabetes mellitus with end-stage nephropathy, type 1 benign essential hypertensive renal disease with renal failure anemia of chronic kidney disease secondary hyperparathyroidism status post amputation elevated lactate, probably just low perfusion state Admitted with nausea and vomiting and diarrhea. Presumably some of the symptoms I diabetic gastroparesis related. Treatment plans as per primary care team. plan: - seen and examined on hemodialysis 07/08/2022 -fluid removal today and tomorrow - treatment of end-stage renal disease, fluid retention with dialysis and follow-up for ESRD and related Problems.. History of Present Illness Reason for Consult Consult date: 07/08/22 Chief Complaint Chief complaint: Fluid Overload,ESRD on Dialysis,Nausea & Vomiting History of Present Illness Narrative: 46-year-old white female with a history of diabetes, hypertension, ESRD, CHF, coronary artery disease who has presented with episodes of nausea and vomiting secondary to diabetic gastroparesis and she also has diarrhea. Has chills but no fevers. Some abdominal discomfort mostly in the epigastric area. Continues to have the nausea. Appetite is diminished. She also felt bloated and short of breath. She has sleep apnea and she uses a CPAP mask. She did have a dialysis last week. As left lower extremity swelling which has been a problem even at the last admission. CT of the abdomen pelvis shows ascites as well as cirrhosis of the liver. Chest x-ray has some small left pleural effusion Review of Systems Review of Systems: denies any other problems, diminished appetite. Negative for rest PMFSH Past Medical History Medical History (Updated 07/08/22 @ 01:09 by Ondina Mccullough NP) Acute cholecystitis (~02/2021) Acute electrocardiogram changes Anasarca Anemia Cardiac arrest Cerebrovascular accident Small old lacunar infarct at the head of the right caudate nucleus. Chest pain Chiari I malformation Chronic osteomyelitis Status post toe amputations Congestive heart failure Coronary artery disease Status post stent to the right coronary artery in August 2020. End-stage renal disease on hemodialysis On dialysis since June 2019. Erythropoietin deficiency anemia Esophagitis determined by endoscopy (12/2019) Gastroparesis due to DM Hyperlipidemia Hypokalemia Nausea & vomiting Pulmonary edema Renal osteodystrophy Surgical History Surgical History Amputation of toe Two on the left AV fistula Left forearm History of section, classical X2 History of coronary artery stent placement times 3 History of laparoscopic cholecystectomy (03/15/21) History of myringotomy History of repair of rotator cuff History of tonsillectomy and adenoidectomy History of tubal ligation Hx of myringotomy Hx of right BKA Status post lateral meniscus repair Family History Family History Other Adopted Social History Social History Social History: She has 2 children and she lives with her of 28 years. She is on disability. She smoked up to a pack of cigarettes a day since the age of 16 but now smokes about a 4th a pack a day. She denies alcohol and illicit substance abuse. Surrogate decision maker: Diana Bhat, spouse. Code status: Full code. Years smoked: 25 Smoking status: Never smoker Tobacco type: cigarettes Second hand tobacco smoke exposure: No Additional smoking assessment com
[2022-07-08 12:32] LABS: Glucose Point of Care 134 mg/dl (65-105)
[2022-07-08] MEDS: carvediloL 6.25 MG TABLET PO ×2 (12:46→20:29)
[2022-07-08] MEDS: SEVELAMER CARBONATE 800 MG TABLET PO ×2 (12:46→17:27)
[2022-07-08] MEDS: PANTOPRAZOLE SODIUM IV 40 MG VIAL IV PUSH ×2 (12:47→20:29)
--- NOTE | 2022-07-08 14:15 | P.PNIM_ITS ---
Progress Note: A&P Assessment and Plan (1) Fluid overload: Code(s): E87.70 - Fluid overload, unspecified Status: Acute Assessment and Plan: Patient has history of end-stage renal disease and congestive heart failure. New found cirrhosis on CT. * CT revealed cirrhosis with a small amount of ascites * Chest x-ray shows persistent but improving left basilar atelectasis and small left effusion * The patient stated that she has been compliant with her renal dialysis. * Patient given Lasix in the ER * Lactic acid elevated to 4 on arrival and patient was given fluids in the ER * Repeat labs * GI consulted due to newly found cirrhosis. (2) ESRD on dialysis: Code(s): N18.6 - End stage renal disease; Z99.2 - Dependence on renal dialysis Status: Acute Assessment and Plan: The patient has end-stage renal disease and is on dialysis Friday. * Dr. Forbes has been consulted. * Continue with sevelamer * Continue with Rocaltrol * Pt had dialysis - 07/08/22 (3) Nausea and vomiting: Code(s): R11.2 - Nausea with vomiting, unspecified Status: Acute Assessment and Plan: * The patient was given Zofran PRN * Protonix prescribed rosa * Calcium Carbonate PRN * The patient is not in DKA. (4) Diabetes mellitus: Code(s): E11.9 - Type 2 diabetes mellitus without complications Status: Acute Assessment and Plan: * Accu-Cheks AC and HS with sliding scale insulin and hypoglycemic protocol. * continue with Lantus (5) Diarrhea: Qualifiers: Diarrhea type: unspecified type Qualified Code(s): R19.7 - Diarrhea, unspecified Code(s): R19.7 - Diarrhea, unspecified Status: Acute Assessment and Plan: Patient states diarrhea has improved -07/08/2022 * Stool cultures not collected (6) CHF (congestive heart failure): Code(s): I50.9 - Heart failure, unspecified Status: Acute Assessment and Plan: * continue with Coreg (7) CAD (coronary artery disease): Qualifiers: Associated angina: with stable angina Coronary Disease-Associated Artery/Lesion type: [place] artery [place] vs. transplanted heart: [place] heart Qualified Code(s): I25.118 - Atherosclerotic heart disease of [place] coronary artery with other forms of angina pectoris Code(s): I25.10 - Atherosclerotic heart disease of [place] coronary artery without angina pectoris Status: Acute Assessment and Plan: * continue with aspirin, atorvastatin, Coreg, and Brilinta Plan Patient's H&H was noted to be 12.0 in 39.3 which leads me to believe that the patient may have been dehydrated. H&H every 6 hours. Check stool for occult blood. Her baseline H&H is usually around 8.3 and 27.3. Subjective Date/time seen: 07/08/22 14:15 Interval history: 07/08/22 46-year-old patient with a history of end-stage renal disease, diabetic retinopathy, diabetic neuropathy, nephropathy and does dialysis on Friday presents to the ER with nausea vomiting and diarrhea compla ints. Patient states these symptoms had started on 07/05/2022. Patient states that she has had multiple episodes of vomiting and diarrhea. When talking with her this afternoon she stated diarrhea has subsided since being in the ER. Labs revealed a white blood cell count of 11 and lactic of 4. Patient having dialysis today. P
--- NOTE | 2022-07-08 14:15 | PM.IMPN ---
Progress Note: A&P Assessment and Plan (1) Fluid overload: Code(s): E87.70 - Fluid overload, unspecified Status: Acute Assessment and Plan: Patient has history of end-stage renal disease and congestive heart failure. New found cirrhosis on CT. CT revealed cirrhosis with a small amount of ascites Chest x-ray shows persistent but improving left basilar atelectasis and small left effusion The patient stated that she has been compliant with her renal dialysis. Patient given Lasix in the ER Lactic acid elevated to 4 on arrival and patient was given fluids in the ER Repeat labs GI consulted due to newly found cirrhosis. (2) ESRD on dialysis: Code(s): N18.6 - End stage renal disease; Z99.2 - Dependence on renal dialysis Status: Acute Assessment and Plan: The patient has end-stage renal disease and is on dialysis Friday. Dr. Forbes has been consulted. Continue with sevelamer Continue with Rocaltrol Pt had dialysis - 07/08/22 (3) Nausea and vomiting: Code(s): R11.2 - Nausea with vomiting, unspecified Status: Acute Assessment and Plan: The patient was given Zofran PRN Protonix prescribed rosa Calcium Carbonate PRN The patient is not in DKA. (4) Diabetes mellitus: Code(s): E11.9 - Type 2 diabetes mellitus without complications Status: Acute Assessment and Plan: Accu-Cheks AC and HS with sliding scale insulin and hypoglycemic protocol. continue with Lantus (5) Diarrhea: Qualifiers: Diarrhea type: unspecified type Qualified Code(s): R19.7 - Diarrhea, unspecified Code(s): R19.7 - Diarrhea, unspecified Status: Acute Assessment and Plan: Patient states diarrhea has improved -07/08/2022 Stool cultures not collected (6) CHF (congestive heart failure): Code(s): I50.9 - Heart failure, unspecified Status: Acute Assessment and Plan: continue with Coreg (7) CAD (coronary artery disease): Qualifiers: Associated angina: with stable angina Coronary Disease-Associated Artery/Lesion type: [place] artery [place] vs. transplanted heart: [place] heart Qualified Code(s): I25.118 - Atherosclerotic heart disease of [place] coronary artery with other forms of angina pectoris Code(s): I25.10 - Atherosclerotic heart disease of [place] coronary artery without angina pectoris Status: Acute Assessment and Plan: continue with aspirin, atorvastatin, Coreg, and Brilinta Plan Patient's H&H was noted to be 12.0 in 39.3 which leads me to believe that the patient may have been dehydrated. H&H every 6 hours. Check stool for occult blood. Her baseline H&H is usually around 8.3 and 27.3. Subjective Date/time seen: 07/08/22 14:15 Interval history: 07/08/22 46-year-old patient with a history of end-stage renal disease, diabetic retinopathy, diabetic neuropathy, nephropathy and does dialysis on Friday presents to the ER with nausea vomiting and diarrhea complaints. Patient states these symptoms had started on 07/05/2022. Patient states that she has had multiple episodes of vomiting and diarrhea. When talking with her this afternoon she stated diarrhea has subsided since being in the ER. Labs revealed a white blood cell count of 11 and lactic of 4. Patient having dialysis today. Patient has chronic short of breath. Denies chest pain, fever, dizziness and headache. Review of Systems Review of Systems: All systems reviewed & are unremarkable except as noted in HPI and below Exam Narrative: GENERAL: Comfortable, no acute distress, undergoing dialysis HENMT: moist mucous membranes EYES: EOM intact b/l, unable to see well due to retinopathy NECK: no lymphadenopathy RESPIRATORY: clear to auscultation CARDIO: RRR GI: soft, mild tenderness, hyperactive bowel sounds SKIN: no rashes E
[2022-07-08 14:23] LABS: Basophils Percent Auto 0.3 % (0.2-1.2); Eosinophils Absolute Auto 0.1 K/mm3 (0-0.3); Eosinophils Percent Auto 0.6 % (0-4.4); Hematocrit 30.8 % (37.0-47.0); Hemoglobin 9.5 g/dL (12.0-15.0); Immature Granulocyte Absolute 0.06 K/mm3 (0.00-0.031); Immature Granulocyte Percent A 0.6 % (0-0.5); Lymphocytes Absolute Auto 0.99 K/mm3 (0.9-3.2); Lymphocytes Percent Auto 9.5 % (18.3-44.2); Mean Corpuscular HGB Conc 30.8 g/dl (32-36); Mean Corpuscular Hemoglobin 32.4 pg (26-34); Mean Corpuscular Volume 105.1 fl (80-100); Mean Platelet Volume 9.8 fl (7.4-10.4); Monocytes Absolute Auto 0.4 K/mm3 (0.1-0.6); Monocytes Percent Auto 4.2 % (2.6-8.5); Neutrophils Absolute Auto 8.9 K/mm3 (1.3-6.7); Neutrophils Percent Auto 84.8 % (45.5-73.1); Nucleated Red Blood Cells Perc 0.3 % (0.0-0.2); Platelet Count Result 229 k/mm3 (150-375); Red Blood Count 2.93 M/mm3 (4.2-5.4); Red Cell Distribution Width 18.6 % (11.5-14.5); White Blood Count 10.4 K/mm3 (4.5-10.0)
[2022-07-08 14:34] LABS: Alanine Aminotransferase 29 U/L (6-35); Albumin Level 3.6 g/dL (3.5-5.1); Alkaline Phosphatase 328 U/L (38-126); Anion Gap 9 mmol/L (8-16); Aspartate Amino Transferase 31 U/L (14-36); Bilirubin,Total 1.2 mg/dL (0.2-1.3); Blood Urea Nitrogen 27 mg/dL (7-17); Calcium 8.7 mg/dL (8.4-10.2); Carbon Dioxide 32 mmol/L (22-30); Chloride 94 mmol/L (98-107); Estimated CRCL calculation 20 ml/min; Estimated Glomerular Filt Rate 14; Glucose 151 mg/dL (65-110); Lactic Acid 1.1 mmol/L (0.7-2.0); Sodium 135 mmol/L (137-145)
[2022-07-08 14:38] LABS: Potassium 4.4 mmol/L (3.4-5.0)
[2022-07-08 14:45] LABS: Platelet Estimate Adequate (Adequate); Schistocytes None Seen (NORMAL)
[2022-07-08 14:46] LABS: Anisocytosis 1+ (NORMAL); Hypochromasia 1+ (NORMAL); Microcytosis 1+ (NORMAL); Poikilocytosis 1+ (NORMAL)
[2022-07-08] MEDS: INSULIN ASPART (*BKC) 100 UNITS/ML SUB-Q (16:52)
[2022-07-08 16:53] LABS: Glucose Point of Care 221 mg/dl (65-105)
[2022-07-08] MEDS: HYDROcodone/acetaminophen (*CRX) 7.5-325 MG TABLET 1 TAB PO (17:20)
[2022-07-08 19:08] LABS: Hematocrit 29.9 % (37.0-47.0); Hemoglobin 8.9 g/dL (12.0-15.0)
[2022-07-08] MEDS: INSULIN GLARGINE (*BKC) 100 UNITS/ML 10 UNITS SUB-Q (20:26)
[2022-07-08 20:54] LABS: Glucose Point of Care 281 mg/dl (65-105)
[2022-07-09] VITALS (18 sets, daily range): BP systolic 99–140; BP diastolic 46–79; PULSE 61–75; RESP 16–20; TEMP 35.8–36.4; O2SAT 100
[2022-07-09] MEDS: HYDROcodone/acetaminophen (*CRX) 7.5-325 MG TABLET 1 TAB PO ×3 (00:03→22:19)
--- NOTE | 2022-07-09 04:04 | PC.NURSE ---
Pt has no complaints at this time. Pt is compliant with care. Pt participated and contributed in plan of care. Will continue to monitor pt.
[2022-07-09 06:48] LABS: Basophils Percent Auto 0.5 % (0.2-1.2); Eosinophils Absolute Auto 0.1 K/mm3 (0-0.3); Eosinophils Percent Auto 1.6 % (0-4.4); Hematocrit 29.5 % (37.0-47.0); Hemoglobin 8.7 g/dL (12.0-15.0); Immature Granulocyte Absolute 0.05 K/mm3 (0.00-0.031); Immature Granulocyte Percent A 0.8 % (0-0.5); Lymphocytes Absolute Auto 1.12 K/mm3 (0.9-3.2); Lymphocytes Percent Auto 17.6 % (18.3-44.2); Mean Corpuscular HGB Conc 29.5 g/dl (32-36); Mean Corpuscular Hemoglobin 32.2 pg (26-34); Mean Corpuscular Volume 109.3 fl (80-100); Mean Platelet Volume 10.3 fl (7.4-10.4); Monocytes Absolute Auto 0.4 K/mm3 (0.1-0.6); Monocytes Percent Auto 6.9 % (2.6-8.5); Neutrophils Absolute Auto 4.6 K/mm3 (1.3-6.7); Neutrophils Percent Auto 72.6 % (45.5-73.1); Nucleated Red Blood Cells Perc 0.5 % (0.0-0.2); Platelet Count Result 169 k/mm3 (150-375); Red Cell Distribution Width 18.6 % (11.5-14.5); White Blood Count 6.4 K/mm3 (4.5-10.0)
[2022-07-09 07:02] LABS: Alanine Aminotransferase 27 U/L (6-35); Albumin Level 3.5 g/dL (3.5-5.1); Alkaline Phosphatase 257 U/L (38-126); Anion Gap 10 mmol/L (8-16); Aspartate Amino Transferase 27 U/L (14-36); Bilirubin,Total 0.8 mg/dL (0.2-1.3); Blood Urea Nitrogen 36 mg/dL (7-17); Calcium 8.6 mg/dL (8.4-10.2); Carbon Dioxide 30 mmol/L (22-30); Chloride 94 mmol/L (98-107); Estimated CRCL calculation 17 ml/min; Estimated Glomerular Filt Rate 11; Glucose 159 mg/dL (65-110); Potassium 4.8 mmol/L (3.4-5.0); Sodium 134 mmol/L (137-145)
[2022-07-09 07:51] LABS: Anisocytosis 1+ (NORMAL); Hypochromasia 1+ (NORMAL); Ovalocytes 2+ (NORMAL); Platelet Estimate Adequate (Adequate); Schistocytes None Seen (NORMAL); Tear Drop Cells 1+ (NORMAL)
[2022-07-09 08:06] LABS: Glucose Point of Care 165 mg/dl (65-105)
[2022-07-09] MEDS: SEVELAMER CARBONATE 800 MG TABLET PO ×3 (08:12→17:14)
[2022-07-09] MEDS: calcitrioL 0.25 MCG CAPSULE PO (08:13)
[2022-07-09] MEDS: PANTOPRAZOLE SODIUM IV 40 MG VIAL IV PUSH ×2 (08:13→21:16)
[2022-07-09] MEDS: ASPIRIN 81 MG ENTERIC TABLET PO (08:13)
[2022-07-09] MEDS: ATORVASTATIN 40 MG TABLET 80 MG PO (08:13)
[2022-07-09] MEDS: carvediloL 6.25 MG TABLET PO ×2 (08:13→21:15)
[2022-07-09] MEDS: TICAGRELOR 90 MG TABLET PO ×2 (08:13→21:15)
[2022-07-09] MEDS: VITAMIN B CMPLX/VIT C/FOLIC AC 1 CAPSULE 1 CAP PO (08:13)
[2022-07-09] MEDS: ONDANSETRON INJ 4 MG/2 ML VIAL IV PUSH (10:09)
[2022-07-09 12:03] LABS: Glucose Point of Care 252 mg/dl (65-105)
[2022-07-09] MEDS: INSULIN ASPART (*BKC) 100 UNITS/ML SUB-Q ×2 (12:07→17:15)
--- NOTE | 2022-07-09 12:35 | PC.NURSE ---
to dialysis per bed
--- NOTE | 2022-07-09 15:28 | P.PNIM_ITS ---
Progress Note: A&P Assessment and Plan (1) Fluid overload: Code(s): E87.70 - Fluid overload, unspecified Status: Acute Assessment and Plan: Patient has history of end-stage renal disease and congestive heart failure. New found cirrhosis on CT. * CT revealed cirrhosis with a small amount of ascites * Chest x-ray shows persistent but improving left basilar atelectasis and small left effusion * The patient stated that she has been compliant with her renal dialysis. * Patient given Lasix in the ER * Lactic acid elevated to 4 on arrival and patient was given fluids in the ER * Repeat labs * GI consulted due to newly found cirrhosis. * RUQ US ordered due to cirrhosis finding on CT (2) ESRD on dialysis: Code(s): N18.6 - End stage renal disease; Z99.2 - Dependence on renal dialysis Status: Acute Assessment and Plan: The patient has end-stage renal disease and is on dialysis Friday. * Dr. Forbes has been consulted. * Continue with sevelamer * Continue with Rocaltrol * Pt had dialysis - 07/08/22 (3) Cirrhosis of liver: Code(s): K74.60 - Unspecified cirrhosis of liver Status: Suspected Assessment and Plan: Cirrhosis of the liver incidental finding on CT on 07/07/2022. Revealed small volume ascites. * GI has been consulted * Patient having right upper quadrant pain associated with nausea vomiting * AST and ALT both 27 and alk-phos 257 * Total protein 6, albumin 3.5 * Patient does not have history of alcohol abuse (4) Nausea and vomiting: Code(s): R11.2 - Nausea with vomiting, unspecified Status: Acute Assessment and Plan: * could be due to ascites * Pt having RUQ pain * RUQ US ordered * Pt has hx of cholecystectomy. * GI has been consulted. * The patient was given Zofran PRN * Protonix prescribed rosa * Calcium Carbonate PRN * The patient is not in DKA. (5) Diarrhea: Qualifiers: Diarrhea type: unspecified type Qualified Code(s): R19.7 - Diarrhea, unspecified Code(s): R19.7 - Diarrhea, unspecified Status: Acute Assessment and Plan: Patient states diarrhea has improved -07/08/2022 * Stool cultures not collected * Cancel cultures due to resolved diarrhea * Stool occult blood ordered - uncollected (6) CHF (congestive heart failure): Code(s): I50.9 - Heart failure, unspecified Status: Acute Assessment and Plan: * continue with Coreg (7) Diabetes mellitus: Code(s): E11.9 - Type 2 diabetes mellitus without complications Status: Acute Assessment and Plan: * Accu-Cheks AC and HS with sliding scale insulin and hypoglycemic protocol. * continue with Lantus Subjective Date/time seen: 07/09/22 15:28 Interval history: 07/09/22 46-year-old patient with a history of end-stage renal disease, diabetic retinopathy, diabetic neuropathy, nephropathy and does dialysis on Friday presents to the ER with nausea vomiting and diarrhea complaints.? Patient states these symptoms had started on 07/05/2022.? Patient states that she has had multiple episodes of vomiting and diarrhea When talking to patient today patient states that she is still experiencing nausea and vomiting. Patient had an episode of vomiting this morning but nothing since. Diarrhea has stopped. Awaiting GI consult. Patient denies chest pain, fevers, dizziness and headache. Patient has chroni
--- NOTE | 2022-07-09 15:28 | PM.IMPN ---
Progress Note: A&P Assessment and Plan (1) Fluid overload: Code(s): E87.70 - Fluid overload, unspecified Status: Acute Assessment and Plan: Patient has history of end-stage renal disease and congestive heart failure. New found cirrhosis on CT. CT revealed cirrhosis with a small amount of ascites Chest x-ray shows persistent but improving left basilar atelectasis and small left effusion The patient stated that she has been compliant with her renal dialysis. Patient given Lasix in the ER Lactic acid elevated to 4 on arrival and patient was given fluids in the ER Repeat labs GI consulted due to newly found cirrhosis. RUQ US ordered due to cirrhosis finding on CT (2) ESRD on dialysis: Code(s): N18.6 - End stage renal disease; Z99.2 - Dependence on renal dialysis Status: Acute Assessment and Plan: The patient has end-stage renal disease and is on dialysis Friday. Dr. Forbes has been consulted. Continue with sevelamer Continue with Rocaltrol Pt had dialysis - 07/08/22 (3) Cirrhosis of liver: Code(s): K74.60 - Unspecified cirrhosis of liver Status: Suspected Assessment and Plan: Cirrhosis of the liver incidental finding on CT on 07/07/2022. Revealed small volume ascites. GI has been consulted Patient having right upper quadrant pain associated with nausea vomiting AST and ALT both 27 and alk-phos 257 Total protein 6, albumin 3.5 Patient does not have history of alcohol abuse (4) Nausea and vomiting: Code(s): R11.2 - Nausea with vomiting, unspecified Status: Acute Assessment and Plan: could be due to ascites Pt having RUQ pain RUQ US ordered Pt has hx of cholecystectomy. GI has been consulted. The patient was given Zofran PRN Protonix prescribed rosa Calcium Carbonate PRN The patient is not in DKA. (5) Diarrhea: Qualifiers: Diarrhea type: unspecified type Qualified Code(s): R19.7 - Diarrhea, unspecified Code(s): R19.7 - Diarrhea, unspecified Status: Acute Assessment and Plan: Patient states diarrhea has improved -07/08/2022 Stool cultures not collected Cancel cultures due to resolved diarrhea Stool occult blood ordered - uncollected (6) CHF (congestive heart failure): Code(s): I50.9 - Heart failure, unspecified Status: Acute Assessment and Plan: continue with Coreg (7) Diabetes mellitus: Code(s): E11.9 - Type 2 diabetes mellitus without complications Status: Acute Assessment and Plan: Accu-Cheks AC and HS with sliding scale insulin and hypoglycemic protocol. continue with Lantus Subjective Date/time seen: 07/09/22 15:28 Interval history: 07/09/22 46-year-old patient with a history of end-stage renal disease, diabetic retinopathy, diabetic neuropathy, nephropathy and does dialysis on Friday presents to the ER with nausea vomiting and diarrhea complaints.? Patient states these symptoms had started on 07/05/2022.? Patient states that she has had multiple episodes of vomiting and diarrhea When talking to patient today patient states that she is still experiencing nausea and vomiting. Patient had an episode of vomiting this morning but nothing since. Diarrhea has stopped. Awaiting GI consult. Patient denies chest pain, fevers, dizziness and headache. Patient has chronic shortness of breath due to end-stage renal disease. Exam Narrative: GENERAL: Comfortable, no acute distress, undergoing dialysis HENMT: moist mucous membranes EYES: EOM intact b/l, unable to see well due to retinopathy NECK: no lymphadenopathy RESPIRATORY: clear to auscultation CARDIO: RRR GI: soft, mild tenderness, hyperactive bowel sounds SKIN: no rashes EXTREMITIES: Right leg below the knee amputation. Amputation of left great toe. Objective Data Vital Signs Vital Signs: Vital S
--- NOTE | 2022-07-09 16:21 | WPDGICN ---
Assessment and Plan Assessment and plan (1) Nausea and vomiting: Code(s): R11.2 - Nausea with vomiting, unspecified Status: Acute Assessment and Plan: will proceed with egd, report of dark emesis but no melena monitor h/h probably cirrhosis by imaging, hepatitis negative will complete work up (2) Cirrhosis of liver: Code(s): K74.60 - Unspecified cirrhosis of liver Status: Suspected Assessment and Plan: probably DM/GRAHAM based on risk factors monitor (3) ESRD on dialysis: Code(s): N18.6 - End stage renal disease; Z99.2 - Dependence on renal dialysis Status: Acute Assessment and Plan: on dialysis, here also with fluid overload (4) Fluid overload: Code(s): E87.70 - Fluid overload, unspecified Status: Acute (5) Coronary artery disease: Code(s): I25.10 - Atherosclerotic heart disease of [place] coronary artery without angina pectoris Status: Acute (6) Diabetes mellitus: Code(s): E11.9 - Type 2 diabetes mellitus without complications Status: Acute Assessment and Plan: with multiple chronic complications GI Consult Note Consult date/time: 07/09/22 16:21 Reason for consult: n/v, possible cirrhosis HPI: Pamela Bhat is a 46 year old female with history of end-stage renal disease, diabetic retinopathy, diabetic neuropathy, nephropathy on hemodialysis on Friday came to the ER with ongoing nausea, vomiting and diarrhea for few days, also noted more fluid overload and currently is getting dialysis. There was a report of dark material in emesis, denies melena. CT scan reviewed and showed Cirrhosis. Small volume ascites. Diffuse body wall edema (previous CT scan showed normal liver)- denies history of liver disease, hepatitis panel negative and no alcohol use. Also with chronic anemia, hb 8-9 but on admission 12 Review of Systems Constitutional: Constitutional: Denies headache(s) Eyes: Eyes: Denies blurry vision ENT: Reports Normal hearing present, Denies headache(s) and Denies neck pain Cardiovascular: Cardiovascular: Denies chest pain Respiratory: Respiratory: Reports dyspnea Gastrointestinal: Gastrointestinal: Reports no additional gastrointestinal complaints Genitourinary: Comments: on dialysis Musculoskeletal: Musculoskeletal: Denies neck pain Integumentary/Breasts: Skin/Breast: Denies dry skin Neurologic: Reports Normal hearing present and Denies headache(s) Psychiatric: Psychiatric: Denies anxiety Endocrine: Endocrine: Denies change in body appearance Hematologic/Lymphatic: Hematologic/Lymphatic: Denies easy bleeding Allergic/Immunologic: Allergic/Immunologic: Denies urticaria PMFSH Past Medical History Medical History (Updated 07/09/22 @ 15:36 by Farzaneh Hernandez PA-C) Acute cholecystitis (~02/2021) Acute electrocardiogram changes Anasarca Anemia Cardiac arrest Cerebrovascular accident Small old lacunar infarct at the head of the right caudate nucleus. Chest pain Chiari I malformation Chronic osteomyelitis Status post toe amputations Congestive heart failure Coronary artery disease Status post stent to the right coronary artery in August 2020. End-stage renal disease on hemodialysis On dialysis since June 2019. Erythropoietin deficiency anemia Esophagitis determined by endoscopy (12/2019) Gastroparesis due to DM Hyperlipidemia Hypokalemia Nausea & vomiting Pulmonary edema Renal osteodystrophy Surgical History Surgical History Amputation of toe Two on the left AV fistula Left forearm History of section, classical X2 History of coronary artery stent placement times 3 History of laparoscopic cholecystectomy (03/15/21) History of myringotomy History of repair of rotator cuff History of tonsillectomy and adenoidectomy History of tubal ligation Hx of myringotomy Hx of right BKA Stat
[2022-07-09 16:58] LABS: Glucose Point of Care 292 mg/dl (65-105)
--- NOTE | 2022-07-09 17:19 | PC.NURSE ---
to ultrasound per bed
[2022-07-09] MEDS: INSULIN GLARGINE (*BKC) 100 UNITS/ML 10 UNITS SUB-Q (21:16)
[2022-07-10] VITALS (20 sets, daily range): BP systolic 105–140; BP diastolic 34–71; PULSE 63–69; RESP 14–20; TEMP 35.9–36.6; O2SAT 92–100
[2022-07-10 01:17] LABS: Glucose Point of Care 231 mg/dl (65-105)
[2022-07-10] MEDS: HYDROcodone/acetaminophen (*CRX) 7.5-325 MG TABLET 1 TAB PO ×3 (03:28→14:15)
--- NOTE | 2022-07-10 05:02 | PC.NURSE ---
Pt is resting comfortably. Pt has had pain medication twice tonight. Pt otherwise has expressed no needs. Pt participated and contributed in plan of care. Will continue to monitor pt.
[2022-07-10 07:50] LABS: Glucose Point of Care 247 mg/dl (65-105)
[2022-07-10] MEDS: PANTOPRAZOLE SODIUM IV 40 MG VIAL IV PUSH ×2 (08:03→21:05)
--- NOTE | 2022-07-10 08:12 | PC.NURSE ---
patient to dialysis per bed
[2022-07-10 09:28] LABS: Hematocrit 30.2 % (37.0-47.0); Hemoglobin 9.2 g/dL (12.0-15.0); Mean Corpuscular HGB Conc 30.5 g/dl (32-36); Mean Corpuscular Hemoglobin 32.2 pg (26-34); Mean Corpuscular Volume 105.6 fl (80-100); Mean Platelet Volume 10.4 fl (7.4-10.4); Platelet Count Result 174 k/mm3 (150-375); Red Blood Count 2.86 M/mm3 (4.2-5.4); Red Cell Distribution Width 17.9 % (11.5-14.5); White Blood Count 5.8 K/mm3 (4.5-10.0)
[2022-07-10 09:45] LABS: Chloride 91 mmol/L (98-107)
[2022-07-10 09:46] LABS: Alanine Aminotransferase 24 U/L (6-35); Albumin Level 3.5 g/dL (3.5-5.1); Alkaline Phosphatase 262 U/L (38-126); Anion Gap 10 mmol/L (8-16); Aspartate Amino Transferase 25 U/L (14-36); Bilirubin,Total 0.8 mg/dL (0.2-1.3); Blood Urea Nitrogen 46 mg/dL (7-17); Calcium 8.4 mg/dL (8.4-10.2); Carbon Dioxide 30 mmol/L (22-30); Estimated CRCL calculation 13 ml/min; Estimated Glomerular Filt Rate 9; Glucose 216 mg/dL (65-110); Iron 56 ug/dL (37-170); Potassium 4.9 mmol/L (3.4-5.0); Sodium 131 mmol/L (137-145)
[2022-07-10 09:53] LABS: Percent Iron Saturation 20 % (20-50)
--- NOTE | 2022-07-10 10:01 | PM.PNNEP ---
Progress Note: A&P Assessment and Plan (1) ESRD on dialysis: Code(s): N18.6 - End stage renal disease; Z99.2 - Dependence on renal dialysis Status: Acute Assessment and Plan: ? End-stage renal disease ?anasarca, fluid retention, ascites, cirrhosis, body wall edema, small left pleural effusion, shortness of breath ? diabetes mellitus with end-stage nephropathy, type 1 ?benign essential hypertensive renal disease with renal failure ?anemia of chronic kidney disease ?secondary hyperparathyroidism ?status post amputation ?elevated lactate, probably just low perfusion state ? Admitted with nausea and vomiting and diarrhea.? Presumably some of the symptoms I diabetic gastroparesis related.? Treatment plans as per primary care team. plan: - Fluid removal as tolerated - I discussed with the patient, she may need 4 treatments a week for the time being to get all the fluid out - EGD today - follow-up for ESRD and related needs Subjective Date/time seen: 07/10/22 10:01 End-stage renal disease follow-up seen and examined on hemodialysis. Trying to get about 4 L of fluid off. Patient feels bloated. Shortness of breath is better. Going for an EGD today. Exam Narrative: Seen and examined on hemodialysis, sleeping upright, comfortable with breathing at rest, JVD had to cecum regular rate rhythm, no gallop, no rub, equal breath sounds, no rub wheeze, soft nontender abdomen, edema 2+ of the left lower extremity, amputation right below-knee on the right. Alert and oriented x3, no tremor Objective Data Vital Signs Vital Signs: Vital Signs - 24 hr 07/09/22 10:16 07/09/22 12:49 07/09/22 13:10 Temperature Pulse Rate 64 64 Respiratory Rate Blood Pressure 127/67 119/64 Pulse Oximetry 100 Oxygen Delivery Nasal Cannula Oxygen Flow Rate 2 07/09/22 12:35 07/09/22 12:35 07/09/22 13:30 Temperature 36.3 C L Pulse Rate 66 61 Respiratory Rate 18 Blood Pressure 131/65 107/58 L Pulse Oximetry Oxygen Delivery Oxygen Flow Rate 2 07/09/22 13:50 07/09/22 14:10 07/09/22 14:30 Temperature Pulse Rate 62 61 63 Respiratory Rate Blood Pressure 99/46 L 102/54 L 107/62 Pulse Oximetry Oxygen Delivery Oxygen Flow Rate 07/09/22 14:50 07/09/22 15:10 07/09/22 15:30 Temperature Pulse Rate 61 63 75 Respiratory Rate Blood Pressure 108/60 115/66 100/79 Pulse Oximetry Oxygen Delivery Oxygen Flow Rate 07/09/22 15:51 07/09/22 16:08 07/09/22 20:12 Temperature 36.2 C L 35.8 C L Pulse Rate 64 65 63 Respiratory Rate 16 20 Blood Pressure 119/60 140/75 119/51 L Pulse Oximetry 100 Oxygen Delivery Oxygen Flow Rate 07/09/22 21:15 07/09/22 21:16 07/10/22 03:40 Temperature 36.0 C L Pulse Rate 65 64 Respiratory Rate 20 Blood Pressure 132/59 L Pulse Oximetry 100 100 Oxygen Delivery Nasal Cannula Oxygen Flow Rate 2 07/10/22 08:30 07/10/22 08:50 07/10/22 08:20 Temperature 36.3 C L Pulse Rate 64 64 63 Respiratory Rate 16 Blood Pressure 127/66 127/65 137/71 Pulse Oximetry Oxygen Delivery Oxygen Flow Rate 07/10/22 09:10 07/10/22 09:30 07/10/22 09:50 Temperature Pulse Rate 63 64 64 Respiratory Rate Blood Pressure 133/66 119/60 126/52 L Pulse Oximetry Oxygen Delivery Oxygen Flow Rate Intake/Output Intake/Output: Intake & Output 07/07/22 07/08/22 07/09/22 07/10/22 23:59 23:59 23:59 23:59 Intake Total 1500 1030 1150 290 Output Total 4100 4000 0 Balance 1500 -3070 -2850 290 Meds/Results Medications: Active Medications Generic Name Dose Route Start Last Admin Trade Name Freq PRN Reason Stop Dose Admin Hydrocodone Bitart/Acetaminophen 1 tab 07/08/22 01:02 07/10/22 08:02 Hydrocodone/Acetaminophen (*Crx) 7.5-325 Mg Tablet PO 1 tab Q4-6H PRN Administration Pain Rated 4-6 Aspirin 81 mg 07/08/22 09:00 07/09/22 08:13 Aspirin 81 Mg Enteric Tablet PO 81
--- NOTE | 2022-07-10 10:10 | P.PNIM_ITS ---
Progress Note: A&P Assessment and Plan (1) Fluid overload: Code(s): E87.70 - Fluid overload, unspecified Status: Acute Assessment and Plan: Patient has history of end-stage renal disease and congestive heart failure. New found cirrhosis on CT. * CT revealed cirrhosis with a small amount of ascites * Chest x-ray shows persistent but improving left basilar atelectasis and small left effusion * The patient stated that she has been compliant with her renal dialysis. * Patient given Lasix in the ER * Lactic acid elevated to 4 on arrival and patient was given fluids in the ER * Repeat labs * GI consulted due to newly found cirrhosis. * RUQ US ordered due to cirrhosis finding on CT (2) ESRD on dialysis: Code(s): N18.6 - End stage renal disease; Z99.2 - Dependence on renal dialysis Status: Acute Assessment and Plan: The patient has end-stage renal disease and is on dialysis Friday. * Dr. Forbes has been consulted. * Continue with sevelamer * Continue with Rocaltrol * Pt had dialysis - 07/08/22 (3) Cirrhosis of liver: Code(s): K74.60 - Unspecified cirrhosis of liver Status: Suspected Assessment and Plan: Cirrhosis of the liver incidental finding on CT on 07/07/2022. Revealed small volume ascites. * GI has been consulted * Patient having right upper quadrant pain associated with nausea vomiting * AST and ALT both 27 and alk-phos 257 * Total protein 6, albumin 3.5 * Patient does not have history of alcohol abuse (4) Nausea and vomiting: Code(s): R11.2 - Nausea with vomiting, unspecified Status: Acute Assessment and Plan: * could be due to ascites * Pt having RUQ pain * RUQ US ordered * Pt has hx of cholecystectomy. * GI has been consulted. * The patient was given Zofran PRN * Protonix prescribed rosa * Calcium Carbonate PRN * The patient is not in DKA. (5) Diarrhea: Qualifiers: Diarrhea type: unspecified type Qualified Code(s): R19.7 - Diarrhea, unspecified Code(s): R19.7 - Diarrhea, unspecified Status: Resolved Assessment and Plan: Patient states diarrhea has improved -07/08/2022 * Stool cultures not collected * Cancel cultures due to resolved diarrhea * Stool occult blood ordered - uncollected (6) CHF (congestive heart failure): Qualifiers: Heart failure chronicity: chronic Heart failure type: combined systolic and diastolic Qualified Code(s): I50.42 - Chronic combined systolic (congestive) and diastolic (congestive) heart failure Code(s): I50.9 - Heart failure, unspecified Status: Chronic Assessment and Plan: Acute on chronic combined systolic and diastolic dysfunction, EF 35%. On dialysis. -4L daily for the past 2 days and -5L today 07/10/22 continue with Coreg (7) Diabetes mellitus: Code(s): E11.9 - Type 2 diabetes mellitus without complications Status: Acute Assessment and Plan: * Accu-Cheks AC and HS with sliding scale insulin and hypoglycemic protocol. * continue with Lantus (8) Esophagitis: Code(s): K20.90 - Esophagitis, unspecified without bleeding Status: Acute Assessment and Plan: Noted on EGD. Continue PPI. Hold aspirin and brillinta for now. Obtain old cardiology records for evaluation of most recent stent and need for DAPT therapy Subjective Date/time seen: 07/10/22 10:10 Interval history: Patient is a 46-year-old female with end-stage renal disease on hemodialysis, diabetic reti
--- NOTE | 2022-07-10 10:10 | PM.IMPN ---
Progress Note: A&P Assessment and Plan (1) Fluid overload: Code(s): E87.70 - Fluid overload, unspecified Status: Acute Assessment and Plan: Patient has history of end-stage renal disease and congestive heart failure. New found cirrhosis on CT. CT revealed cirrhosis with a small amount of ascites Chest x-ray shows persistent but improving left basilar atelectasis and small left effusion The patient stated that she has been compliant with her renal dialysis. Patient given Lasix in the ER Lactic acid elevated to 4 on arrival and patient was given fluids in the ER Repeat labs GI consulted due to newly found cirrhosis. RUQ US ordered due to cirrhosis finding on CT (2) ESRD on dialysis: Code(s): N18.6 - End stage renal disease; Z99.2 - Dependence on renal dialysis Status: Acute Assessment and Plan: The patient has end-stage renal disease and is on dialysis Friday. Dr. Forbes has been consulted. Continue with sevelamer Continue with Rocaltrol Pt had dialysis - 07/08/22 (3) Cirrhosis of liver: Code(s): K74.60 - Unspecified cirrhosis of liver Status: Suspected Assessment and Plan: Cirrhosis of the liver incidental finding on CT on 07/07/2022. Revealed small volume ascites. GI has been consulted Patient having right upper quadrant pain associated with nausea vomiting AST and ALT both 27 and alk-phos 257 Total protein 6, albumin 3.5 Patient does not have history of alcohol abuse (4) Nausea and vomiting: Code(s): R11.2 - Nausea with vomiting, unspecified Status: Acute Assessment and Plan: could be due to ascites Pt having RUQ pain RUQ US ordered Pt has hx of cholecystectomy. GI has been consulted. The patient was given Zofran PRN Protonix prescribed rosa Calcium Carbonate PRN The patient is not in DKA. (5) Diarrhea: Qualifiers: Diarrhea type: unspecified type Qualified Code(s): R19.7 - Diarrhea, unspecified Code(s): R19.7 - Diarrhea, unspecified Status: Resolved Assessment and Plan: Patient states diarrhea has improved -07/08/2022 Stool cultures not collected Cancel cultures due to resolved diarrhea Stool occult blood ordered - uncollected (6) CHF (congestive heart failure): Qualifiers: Heart failure chronicity: chronic Heart failure type: combined systolic and diastolic Qualified Code(s): I50.42 - Chronic combined systolic (congestive) and diastolic (congestive) heart failure Code(s): I50.9 - Heart failure, unspecified Status: Chronic Assessment and Plan: Acute on chronic combined systolic and diastolic dysfunction, EF 35%. On dialysis. -4L daily for the past 2 days and -5L today 07/10/22 continue with Coreg (7) Diabetes mellitus: Code(s): E11.9 - Type 2 diabetes mellitus without complications Status: Acute Assessment and Plan: Accu-Cheks AC and HS with sliding scale insulin and hypoglycemic protocol. continue with Lantus (8) Esophagitis: Code(s): K20.90 - Esophagitis, unspecified without bleeding Status: Acute Assessment and Plan: Noted on EGD. Continue PPI. Hold aspirin and brillinta for now. Obtain old cardiology records for evaluation of most recent stent and need for DAPT therapy Subjective Date/time seen: 07/10/22 10:10 Interval history: Patient is a 46-year-old female with end-stage renal disease on hemodialysis, diabetic retinopathy, diabetic neuropathy, and CAD s/p cardiac stents and bypass surgery. She presented to the ER with c/o nausea, vomiting, and diarrhea.? Symptoms started on 07/05/2022.?Emesis was dark in color. Patient found sitting up in the bed eating. She denies abdominal pain, nausea or emesis. No melena, hematochezia or hematemesis. She thinks her breathing is near normal. She feels fatigued and attributes this to having dialysis 3 days in a row. She also r
--- NOTE | 2022-07-10 11:55 | PC.NURSE ---
patient returning from dialysis
[2022-07-10 11:58] LABS: Glucose Point of Care 127 mg/dl (65-105)
[2022-07-10] MEDS: ONDANSETRON INJ 4 MG/2 ML VIAL IV PUSH (12:01)
--- NOTE | 2022-07-10 12:07 | PC.NURSE ---
patient to gi lab per stretcher
--- NOTE | 2022-07-10 12:32 | WPDANESEPPF ---
Anes - Initial Pre Proc Eval Procedure: Operation Date: 07/10/22 14:45 Proposed Procedures p Esophagogastroduodenoscopy - Tahir Donouhe MD Date/Time: 07/10/22 12:32 Surgeon: Kvng Gann MD Pre Op Diagnosis: Fluid Overload,ESRD on Dialysis,Nausea & Vomiting Patient Data Age: 46 Gender: F Height: 1.65 m Weight: 88 kg Last Vital Signs Temp 97.4 F L 07/10/22 11:40 Pulse 67 07/10/22 11:40 Resp 16 07/10/22 11:40 BP 140/62 07/10/22 11:40 Pulse Ox 100 07/10/22 08:00 O2 Del Method Nasal Cannula 07/10/22 08:00 O2 Flow Rate 3 07/10/22 08:00 Allergies Allergy/AdvReac Type Severity Reaction Status Date / Time No Known Drug Allergies Allergy Unknown Verified 02/25/22 19:45 Home Medications Medication Instructions Recorded Confirmed Type aspirin 81 mg tablet,delayed 81 mg PO DAILY 12/20/20 07/07/22 History release sevelamer carbonate 800 mg tablet 800 mg PO TIDWM 03/13/21 07/07/22 History pantoprazole 40 mg tablet,delayed 40 mg PO DAILY 09/03/21 07/07/22 History release calcitriol 0.25 mcg capsule 0.25 mcg PO QAM 30 days #30 caps 11/14/21 07/07/22 Rx (Rocaltrol) carvedilol 6.25 mg tablet 6.25 mg PO Q12H 02/20/22 07/07/22 History ticagrelor 90 mg tablet 90 mg PO Q12H 02/20/22 07/07/22 History insulin glargine 100 unit/mL (3 10 unit subcut HS 02/28/22 07/07/22 History mL) subcutaneous pen (Lantus Solostar U-100 Insulin) insulin lispro 100 unit/mL 7 unit subcut TIDWMEAL 02/28/22 07/07/22 History subcutaneous pen (Humalog KwikPen (U-100) Insulin) insulin lispro 100 unit/mL See Protocol subcut TIDWMEAL 02/28/22 07/07/22 History subcutaneous solution (Humalog U-100 Insulin) vitamin B complex-vitamin C-folic 0.8 tablet PO DAILY 03/06/22 07/07/22 History acid 0.8 mg tablet (Renal Vitamin) atorvastatin 80 mg tablet 80 mg PO DAILY 05/02/22 07/07/22 History hydrocodone 7.5 mg-acetaminophen 1 tablet PO Q4-6H PRN Pain 06/26/22 07/07/22 History 325 mg tablet Laboratory Tests 07/09/22 07/09/22 07/10/22 16:42 21:14 07:41 WBC RBC Hgb Hct MCV MCH MCHC RDW Plt Count MPV Sodium Potassium Chloride Carbon Dioxide Anion Gap BUN Creatinine Estim Creat Clear Calc Estimated GFR Glucose POC Capillary Glucose 292 mg/dl H mg/dl 231 mg/dl H mg/dl 247 mg/dl H mg/dl (65-105) (65-105) (65-105) Calcium Magnesium Iron TIBC % Saturation Ferritin Total Bilirubin AST ALT Alkaline Phosphatase Total Protein Albumin Alpha-1-AT Phenotype Ceruloplasmin LUTHER Screen Mitochondria M2 IgG Ab 07/10/22 07/10/22 07/10/22 09:20 09:20 09:20 WBC 5.8 K/mm3 K/mm3 (4.5-10.0) RBC 2.86 M/mm3 L M/mm3 (4.2-5.4) Hgb 9.2 g/dL L g/dL (12.0-15.0) Hct 30.2 % L % (37.0-47.0) MCV 105.6 fl H fl (80-100) MCH 32.2 pg pg (26-34) MCHC 30.5 g/dl L g/dl (32-36) RDW 17.9 % H % (11.5-14.5) Plt Count 174 k/mm3 k/mm3 (150-375) MPV 10.4 fl fl (7.4-10.4) Sodium 131 mmol/L L mmol/L (137-145) Potassium 4.9 mmol/L mmol/L (3.4-5.0) Chloride 91 mmol/L L mmol/L (98-107) Carbon Dioxide 30 mmol/L mmol/L (22-30) Anion Gap 10 mmol/L mmol/L (8-16) BUN 46 mg/dL H D mg/dL (7-17) Creatinine 5.20 mg/dL H mg/dL (0.7-1.0) Estim Creat Clear Calc 13 ml/min ml/min Estimated GFR 9 L (59 - ) Glucose 216 mg/dL H mg/dL (65-110) PO
[2022-07-10 12:36] LABS: Glucose Point of Care 123 mg/dl (65-105)
[2022-07-10] MEDS: SODIUM CHLORIDE 0.9% IV 500 ML 10 ML IV CONT (12:45)
[2022-07-10 13:41] LABS: Glucose Point of Care 105 mg/dl (65-105)
--- NOTE | 2022-07-10 14:16 | PC.NURSE ---
patient returning to room from gi lab
[2022-07-10 17:11] LABS: Glucose Point of Care 202 mg/dl (65-105)
[2022-07-10] MEDS: SEVELAMER CARBONATE 800 MG TABLET PO (17:11)
[2022-07-10] MEDS: INSULIN ASPART (*BKC) 100 UNITS/ML SUB-Q (17:11)
[2022-07-10] MEDS: INSULIN GLARGINE (*BKC) 100 UNITS/ML 10 UNITS SUB-Q (21:05)
[2022-07-10] MEDS: carvediloL 6.25 MG TABLET PO (21:05)
[2022-07-10 21:17] LABS: Glucose Point of Care 245 mg/dl (65-105)
[2022-07-11] MEDS: HYDROcodone/acetaminophen (*CRX) 7.5-325 MG TABLET 1 TAB PO ×5 (00:18→23:31)
[2022-07-11] MEDS: ONDANSETRON INJ 4 MG/2 ML VIAL IV PUSH ×3 (00:19→09:14)
--- NOTE | 2022-07-11 05:07 | PC.NURSE ---
Patient resting throughout night at intervals after zofran for nausea and pain med given per patient's request with good results. Patient denies any SOB or CP at this time. Dressing to right stump CDI. Patient VSS and voicing no complaints. Will continue to monitor patient's status.
[2022-07-11 05:49] VITALS: BP 112/68; PULSE 70; RESP 16; TEMP 36.2; O2SAT 100
[2022-07-11 08:00] VITALS: O2SAT 98
[2022-07-11 08:00] LABS: Glucose Point of Care 265 mg/dl (65-105)
[2022-07-11] MEDS: INSULIN ASPART (*BKC) 100 UNITS/ML SUB-Q ×3 (09:13→17:27)
[2022-07-11] MEDS: SEVELAMER CARBONATE 800 MG TABLET PO ×3 (09:13→17:26)
[2022-07-11] MEDS: ATORVASTATIN 40 MG TABLET 80 MG PO (09:14)
[2022-07-11] MEDS: calcitrioL 0.25 MCG CAPSULE PO (09:14)
[2022-07-11] MEDS: carvediloL 6.25 MG TABLET PO ×2 (09:14→22:06)
[2022-07-11] MEDS: PANTOPRAZOLE SODIUM IV 40 MG VIAL IV PUSH ×2 (09:14→22:07)
[2022-07-11] MEDS: VITAMIN B CMPLX/VIT C/FOLIC AC 1 CAPSULE 1 CAP PO (09:14)
[2022-07-11 10:18] LABS: Hematocrit 36.3 % (37.0-47.0); Hemoglobin 10.9 g/dL (12.0-15.0)
[2022-07-11 11:22] LABS: Glucose Point of Care 261 mg/dl (65-105)
--- NOTE | 2022-07-11 13:31 | WPDANESPN ---
Anes - Prog Note Post-Op Date/Time: 07/11/22 13:31 Cardiovascular status: normal Respiratory status: normal Airway patency: baseline Mental status: baseline Post-Op hydration status: normal Vital Signs: Last Vital Signs Temp 36.2 C L 07/11/22 05:49 Pulse 70 07/11/22 05:49 Resp 16 07/11/22 05:49 BP 112/68 07/11/22 05:49 Pulse Ox 100 07/11/22 05:49 O2 Del Method Nasal Cannula 07/10/22 13:47 O2 Flow Rate 3 07/10/22 13:47 Pain Score (VAS): 0 I/O: Intake & Output 07/10/22 07/11/22 07/11/22 23:59 07:59 15:59 Intake Total 440 400 480 Balance 440 400 480 Laboratory Tests 07/11/22 10:04 07/10/22 09:20 07/10/22 07/10/22 07/10/22 13:39 16:46 21:00 Hgb Hct POC Capillary Glucose 105 202 H 245 H 07/11/22 07/11/22 07/11/22 07:52 10:04 11:07 Hgb 10.9 L Hct 36.3 L POC Capillary Glucose 265 H 261 H Post-procedural complaints: none Patient Feedback: Patient satisfied with anesthetic care.
[2022-07-11] MEDS: INSULIN ASPART (*BKC) 100 UNITS/ML 7 UNITS SUB-Q ×2 (13:33→17:27)
--- NOTE | 2022-07-11 13:35 | P.PNIM_ITS ---
Progress Note: A&P Assessment and Plan (1) Fluid overload: Qualifiers: Hypervolemia type: other Qualified Code(s): E87.79 - Other fluid overload Code(s): E87.70 - Fluid overload, unspecified Status: Acute Assessment and Plan: Patient has history of end-stage renal disease and congestive heart failure. New found cirrhosis on CT. * CT revealed cirrhosis with a small amount of ascites * Chest x-ray shows persistent but improving left basilar atelectasis and small left effusion * The patient stated that she has been compliant with her renal dialysis. * Patient given Lasix in the ER * Lactic acid elevated to 4 on arrival and patient was given fluids in the ER * GI consulted due to newly found cirrhosis. * RUQ US consistent with hepatomegaly and cirrhosis. (2) ESRD on dialysis: Code(s): N18.6 - End stage renal disease; Z99.2 - Dependence on renal dialysis Status: Acute Assessment and Plan: The patient has end-stage renal disease and is on dialysis Friday. * Dr. Forbes following. * Continue with sevelamer, rocaltrol, * Continue with Rocaltrol * Pt had dialysis - 07/08/22 -4L, 07/09/22 -4L and 07/10/22 -5L (3) Cirrhosis of liver: Qualifiers: Hepatic cirrhosis type: unspecified hepatic cirrhosis Ascites presence: with ascites Qualified Code(s): K74.60 - Unspecified cirrhosis of liver; R18.8 - Other ascites Code(s): K74.60 - Unspecified cirrhosis of liver Status: Suspected Assessment and Plan: Cirrhosis of the liver incidental finding on CT on 07/07/2022. Revealed small volume ascites. * GI has been consulted * Patient having right upper quadrant pain associated with nausea vomiting * AST and ALT both 27 and alk-phos 257 * Total protein 6, albumin 3.5 * Patient does not have history of alcohol abuse (4) Nausea and vomiting: Qualifiers: Vomiting type: unspecified Qualified Code(s): R11.2 - Nausea with vomiting, unspecified Code(s): R11.2 - Nausea with vomiting, unspecified Status: Acute Assessment and Plan: May be due to ascites. Pt has hx of cholecystectomy. * Pt having RUQ pain - US with hepatomegaly and cirrhosis. * GI has been consulted. * Continue Protonix 40 mg BID, IV Zofran PRN, calcium carbonate PRN * The patient is not in DKA. * H/o diabetes associated gastroparesis. Gastric content noted on EGD. Trial IV reglan AC/HS (5) Diarrhea: Qualifiers: Diarrhea type: unspecified type Qualified Code(s): R19.7 - Diarrhea, unspecified Code(s): R19.7 - Diarrhea, unspecified Status: Resolved Assessment and Plan: Patient states diarrhea has improved -07/08/2022 * Stool cultures ordered, but not collected, cancelled cultures due to resolved diarrhea * Stool occult blood ordered - uncollected * Now with constipation. Add Reglan for gastroparesis and senna-plus (6) CHF (congestive heart failure): Qualifiers: Heart failure chronicity: chronic Heart failure type: combined systolic and diastolic Qualified Code(s): I50.42 - Chronic combined systolic (congestive) and diastolic (congestive) heart failure Code(s): I50.9 - Heart failure, unspecified Status: Chronic Assessment and Plan: Acute on chronic combined systolic and diastolic dysfunction, EF 35%. On dialysis. -4L daily for the past 2 days and -5L today 07/10/22 continue with Coreg and dialysis. (7) Diabetes mellitus: Code(s): E11.9 - Type 2 diabetes mellitus without complications Status: Acute
--- NOTE | 2022-07-11 13:35 | PM.IMPN ---
Progress Note: A&P Assessment and Plan (1) Fluid overload: Qualifiers: Hypervolemia type: other Qualified Code(s): E87.79 - Other fluid overload Code(s): E87.70 - Fluid overload, unspecified Status: Acute Assessment and Plan: Patient has history of end-stage renal disease and congestive heart failure. New found cirrhosis on CT. CT revealed cirrhosis with a small amount of ascites Chest x-ray shows persistent but improving left basilar atelectasis and small left effusion The patient stated that she has been compliant with her renal dialysis. Patient given Lasix in the ER Lactic acid elevated to 4 on arrival and patient was given fluids in the ER GI consulted due to newly found cirrhosis. RUQ US consistent with hepatomegaly and cirrhosis. (2) ESRD on dialysis: Code(s): N18.6 - End stage renal disease; Z99.2 - Dependence on renal dialysis Status: Acute Assessment and Plan: The patient has end-stage renal disease and is on dialysis Friday. Dr. Forbes following. Continue with sevelamer, rocaltrol, Continue with Rocaltrol Pt had dialysis - 07/08/22 -4L, 07/09/22 -4L and 07/10/22 -5L (3) Cirrhosis of liver: Qualifiers: Hepatic cirrhosis type: unspecified hepatic cirrhosis Ascites presence: with ascites Qualified Code(s): K74.60 - Unspecified cirrhosis of liver; R18.8 - Other ascites Code(s): K74.60 - Unspecified cirrhosis of liver Status: Suspected Assessment and Plan: Cirrhosis of the liver incidental finding on CT on 07/07/2022. Revealed small volume ascites. GI has been consulted Patient having right upper quadrant pain associated with nausea vomiting AST and ALT both 27 and alk-phos 257 Total protein 6, albumin 3.5 Patient does not have history of alcohol abuse (4) Nausea and vomiting: Qualifiers: Vomiting type: unspecified Qualified Code(s): R11.2 - Nausea with vomiting, unspecified Code(s): R11.2 - Nausea with vomiting, unspecified Status: Acute Assessment and Plan: May be due to ascites. Pt has hx of cholecystectomy. Pt having RUQ pain - US with hepatomegaly and cirrhosis. GI has been consulted. Continue Protonix 40 mg BID, IV Zofran PRN, calcium carbonate PRN The patient is not in DKA. H/o diabetes associated gastroparesis. Gastric content noted on EGD. Trial IV reglan AC/HS (5) Diarrhea: Qualifiers: Diarrhea type: unspecified type Qualified Code(s): R19.7 - Diarrhea, unspecified Code(s): R19.7 - Diarrhea, unspecified Status: Resolved Assessment and Plan: Patient states diarrhea has improved -07/08/2022 Stool cultures ordered, but not collected, cancelled cultures due to resolved diarrhea Stool occult blood ordered - uncollected Now with constipation. Add Reglan for gastroparesis and senna-plus (6) CHF (congestive heart failure): Qualifiers: Heart failure chronicity: chronic Heart failure type: combined systolic and diastolic Qualified Code(s): I50.42 - Chronic combined systolic (congestive) and diastolic (congestive) heart failure Code(s): I50.9 - Heart failure, unspecified Status: Chronic Assessment and Plan: Acute on chronic combined systolic and diastolic dysfunction, EF 35%. On dialysis. -4L daily for the past 2 days and -5L today 07/10/22 continue with Coreg and dialysis. (7) Diabetes mellitus: Code(s): E11.9 - Type 2 diabetes mellitus without complications Status: Acute Assessment and Plan: Accu-Cheks AC and HS with sliding scale insulin and hypoglycemic protocol. continue with Lantus at home dose. Resume novolog 7 units with meals plus sliding scale as patient is now eating. (8) Esophagitis: Code(s): K20.90 - Esophagitis, unspecified without bleeding Status: Acute Assessment and Plan: Noted on EGD, grade III esophagitis in the distal
[2022-07-11 14:00] VITALS: BP 130/53; PULSE 68; RESP 16; TEMP 35.9; O2SAT 100
--- NOTE | 2022-07-11 16:26 | WPDGIPROGNO ---
Progress Note: A&P Assessment and Plan (1) Esophagitis: Code(s): K20.90 - Esophagitis, unspecified without bleeding Status: Acute Assessment and Plan: on protonix twice daily partially can explain n/v and coffee ground emesis (2) Coffee ground emesis: Code(s): K92.0 - Hematemesis Status: Acute Assessment and Plan: from esophagitis on ppi (3) Nausea and vomiting: Qualifiers: Vomiting type: unspecified Qualified Code(s): R11.2 - Nausea with vomiting, unspecified Code(s): R11.2 - Nausea with vomiting, unspecified Status: Acute Assessment and Plan: from esophagitis probably also gastroparesis antiemetics (4) ESRD on dialysis: Code(s): N18.6 - End stage renal disease; Z99.2 - Dependence on renal dialysis Status: Acute Assessment and Plan: by nephrology (5) Fluid overload: Qualifiers: Hypervolemia type: other Qualified Code(s): E87.79 - Other fluid overload Code(s): E87.70 - Fluid overload, unspecified Status: Acute (6) Insulin dependent diabetes mellitus: Status: Acute (7) Gastroparesis: Code(s): K31.84 - Gastroparesis Status: Acute (8) Cirrhosis of liver: Qualifiers: Hepatic cirrhosis type: unspecified hepatic cirrhosis Ascites presence: with ascites Qualified Code(s): K74.60 - Unspecified cirrhosis of liver; R18.8 - Other ascites Code(s): K74.60 - Unspecified cirrhosis of liver Status: Suspected Assessment and Plan: possible based on imaging liver enzymes ok (9) Coronary artery disease: Code(s): I25.10 - Atherosclerotic heart disease of [place] coronary artery without angina pectoris Status: Acute Assessment and Plan: ok to continue with brilinta given cardiac history hold aspirin for 1 week because ulcers in esophagus Subjective Date/time seen: 07/11/22 16:26 Interval history: still with nausea but able to hold food down Review of Systems Review of Systems: All systems reviewed & are unremarkable except as noted in HPI and below Exam Narrative: GENERAL: no acute respiratory distress, HEENT: Normocephalic. Pupils equal and round. NECK: no lymphadenopathy. RESPIRATORY: clear to auscultation bilateral upper lobes, diminished bibasilar lobes. No wheezing. CARDIO: Normal S1 and S2 regular rate and rhythm. No murmurs. GI: soft, bowel sounds +, no rebound SKIN: no rashes. Normal for ethnicity. 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 Amputation of left great toe. No edema. NEURO: AOx3. Psych: Neutral mood and affect. Objective Data Vital Signs Vital Signs: Vital Signs - 24 hr 07/10/22 21:29 07/11/22 05:49 07/11/22 14:00 Temperature 97.9 F 97.1 F L 96.7 F L Pulse Rate 68 70 68 Respiratory Rate 16 16 16 Blood Pressure 123/54 L 112/68 130/53 L Pulse Oximetry 100 100 100 Intake/Output Intake/Output: Intake & Output 07/08/22 07/09/22 07/10/22 07/11/22 23:59 23:59 23:59 23:59 Intake Total 1030 1150 780 880 Output Total 4100 4000 5000 Balance -3070 -2850 -4220 880 Meds/Results Medications: Active Medications Generic Name Dose Route Start Last Admin Trade Name Freq PRN Reason Stop Dose Admin Hydrocodone Bitart/Acetaminophen 1 tab 07/08/22 01:02 07/11/22 11:13 Hydrocodone/Acetaminophen (*Crx) 7.5-325 Mg Tablet PO 1 tab Q4-6H PRN Administration Pain Rated 4-6 Atorvastatin Calcium 80 mg 07/08/22 09:00 07/11/22 09:14 Atorvastatin 40 Mg Tablet PO 80 mg DAILY JOHNSON Administration Bisacodyl 10 mg 07/11/22 13:33 Bisacodyl 10 Mg Suppository RECTAL QAM PRN Constipation Calcitriol 0.25 mcg 07/08/22 09:00 07/11/22 09:14 Calcitriol 0.25 Mcg Capsule PO 0.25 mcg QAM JOHNSON Administration Calcium Carbonate 200 mg 07/08/22 16:38 Calcium Carbonate (Tums) 500 Mg (200 Mg Elemental) PO Q6H PRN
[2022-07-11 16:31] LABS: Glucose Point of Care 221 mg/dl (65-105)
[2022-07-11] MEDS: METOCLOPRAMIDE HCL INJ 10 MG/2 ML VIAL 5 MG IV PUSH ×3 (17:26→22:07)
[2022-07-11 20:55] LABS: Glucose Point of Care 55 mg/dl (65-105)
[2022-07-11 21:05] VITALS: PULSE 66; O2SAT 100
[2022-07-11 21:36] VITALS: BP 143/58; PULSE 68; RESP 16; TEMP 36.2; O2SAT 100
[2022-07-11 21:41] LABS: Glucose Point of Care 67 mg/dl (65-105)
[2022-07-11] MEDS: SENNA/DOCUSATE SODIUM TABLET 1 TAB PO (22:06)
[2022-07-11 22:11] LABS: Glucose Point of Care 82 mg/dl (65-105)
[2022-07-11 22:20] VITALS: O2SAT 97
[2022-07-12] VITALS (14 sets, daily range): BP systolic 103–124; BP diastolic 46–57; PULSE 66–75; RESP 16–18; TEMP 35.8–36.9; O2SAT 95–100
[2022-07-12] MEDS: HYDROcodone/acetaminophen (*CRX) 7.5-325 MG TABLET 1 TAB PO ×2 (06:02→21:50)
[2022-07-12] MEDS: METOCLOPRAMIDE HCL INJ 10 MG/2 ML VIAL 5 MG IV PUSH (06:02)
[2022-07-12 06:32] LABS: Hematocrit 33.6 % (37.0-47.0); Hemoglobin 10.1 g/dL (12.0-15.0); Mean Corpuscular HGB Conc 30.1 g/dl (32-36); Mean Corpuscular Hemoglobin 32.4 pg (26-34); Mean Corpuscular Volume 107.7 fl (80-100); Mean Platelet Volume 10.3 fl (7.4-10.4); Platelet Count Result 152 k/mm3 (150-375); Red Blood Count 3.12 M/mm3 (4.2-5.4); Red Cell Distribution Width 17.8 % (11.5-14.5); White Blood Count 7.1 K/mm3 (4.5-10.0)
[2022-07-12 06:49] LABS: Alanine Aminotransferase 20 U/L (6-35); Albumin Level 3.6 g/dL (3.5-5.1); Alkaline Phosphatase 242 U/L (38-126); Anion Gap 8 mmol/L (8-16); Aspartate Amino Transferase 26 U/L (14-36); Bilirubin,Total 0.6 mg/dL (0.2-1.3); Blood Urea Nitrogen 43 mg/dL (7-17); Calcium 8.7 mg/dL (8.4-10.2); Carbon Dioxide 33 mmol/L (22-30); Chloride 92 mmol/L (98-107); Estimated CRCL calculation 14 ml/min; Estimated Glomerular Filt Rate 9; Glucose 178 mg/dL (65-110); Sodium 133 mmol/L (137-145)
[2022-07-12 08:04] LABS: Glucose Point of Care 175 mg/dl (65-105)
[2022-07-12] MEDS: ONDANSETRON INJ 4 MG/2 ML VIAL IV PUSH (08:47)
--- NOTE | 2022-07-12 09:26 | PCHDNOTE ---
Pre HD: pt arrives AOx4. Denies chest pain and dyspnea. S1 S2 normal. Lungs clear, no edema noted. UF goal 4L. AVF positive bruit, positive thrill, no s/s infection.
[2022-07-12 11:33] LABS: Glucose Point of Care 210 mg/dl (65-105)
--- NOTE | 2022-07-12 13:25 | P.PNIM_ITS ---
Progress Note: A&P Assessment and Plan (1) Fluid overload: Qualifiers: Hypervolemia type: other Qualified Code(s): E87.79 - Other fluid overload Code(s): E87.70 - Fluid overload, unspecified Status: Acute Assessment and Plan: Patient has history of end-stage renal disease and congestive heart failure. New found cirrhosis on CT. * CT revealed cirrhosis with a small amount of ascites * Chest x-ray shows persistent but improving left basilar atelectasis and small left effusion * The patient stated that she has been compliant with her renal dialysis. * Patient given Lasix in the ER * Lactic acid elevated to 4 on arrival and patient was given fluids in the ER * GI consulted due to newly found cirrhosis. * RUQ US consistent with hepatomegaly and cirrhosis. Stable. Improved. (2) ESRD on dialysis: Code(s): N18.6 - End stage renal disease; Z99.2 - Dependence on renal dialysis Status: Acute Assessment and Plan: The patient has end-stage renal disease and is on dialysis Friday. * Dr. Forbes following. * Continue with sevelamer, rocaltrol, * Continue with Rocaltrol * Pt had dialysis - 07/08/22 -4L, 07/09/22 -4L and 07/10/22 -5L * 07/12/22 -4L removed HD today. BP stable. (3) Cirrhosis of liver: Qualifiers: Ascites presence: with ascites Hepatic cirrhosis type: unspecified hepatic cirrhosis Qualified Code(s): K74.60 - Unspecified cirrhosis of liver; R18.8 - Other ascites Code(s): K74.60 - Unspecified cirrhosis of liver Status: Suspected Assessment and Plan: Cirrhosis of the liver incidental finding on CT on 07/07/2022. Revealed small volume ascites. * GI has been consulted * Patient having right upper quadrant pain associated with nausea vomiting * AST and ALT both 27 and alk-phos 257 * Total protein 6, albumin 3.5 * Patient does not have history of alcohol abuse (4) Nausea and vomiting: Qualifiers: Vomiting type: unspecified Qualified Code(s): R11.2 - Nausea with vomiting, unspecified Code(s): R11.2 - Nausea with vomiting, unspecified Status: Acute Assessment and Plan: May be due to ascites. Pt has hx of cholecystectomy. * Pt having RUQ pain - US with hepatomegaly and cirrhosis. * GI has been consulted. * Continue Protonix 40 mg BID, IV Zofran PRN, calcium carbonate PRN * The patient is not in DKA. * H/o diabetes associated gastroparesis. Gastric content noted on EGD. Trial IV reglan AC/HS * 07/12/22 Increase reglan to 10 mg IV AC/HS. Appreciate GI recommendations. Continue antiemetics. (5) Diarrhea: Qualifiers: Diarrhea type: unspecified type Qualified Code(s): R19.7 - Diarrhea, unspecified Code(s): R19.7 - Diarrhea, unspecified Status: Resolved Assessment and Plan: Patient states diarrhea has improved -07/08/2022 * Stool cultures ordered, but not collected, cancelled cultures due to resolved diarrhea * Stool occult blood ordered - uncollected * Now with constipation. Reglan for gastroparesis and senna-plus (6) CHF (congestive heart failure): Qualifiers: Heart failure chronicity: chronic Heart failure type: combined systolic and diastolic Qualified Code(s): I50.42 - Chronic combined systolic (congestive) and diastolic (congestive) heart failure Code(s): I50.9 - Heart failure, unspecified Status: Chronic Assessment and Plan: Acute on chronic combined systolic and diastolic dysfunction, EF 35%. * On dialysis. -4L daily for the past 2 days and -5L today 07/10/22
--- NOTE | 2022-07-12 13:25 | PM.IMPN ---
Progress Note: A&P Assessment and Plan (1) Fluid overload: Qualifiers: Hypervolemia type: other Qualified Code(s): E87.79 - Other fluid overload Code(s): E87.70 - Fluid overload, unspecified Status: Acute Assessment and Plan: Patient has history of end-stage renal disease and congestive heart failure. New found cirrhosis on CT. CT revealed cirrhosis with a small amount of ascites Chest x-ray shows persistent but improving left basilar atelectasis and small left effusion The patient stated that she has been compliant with her renal dialysis. Patient given Lasix in the ER Lactic acid elevated to 4 on arrival and patient was given fluids in the ER GI consulted due to newly found cirrhosis. RUQ US consistent with hepatomegaly and cirrhosis. Stable. Improved. (2) ESRD on dialysis: Code(s): N18.6 - End stage renal disease; Z99.2 - Dependence on renal dialysis Status: Acute Assessment and Plan: The patient has end-stage renal disease and is on dialysis Friday. Dr. Forbes following. Continue with sevelamer, rocaltrol, Continue with Rocaltrol Pt had dialysis - 07/08/22 -4L, 07/09/22 -4L and 07/10/22 -5L 07/12/22 -4L removed HD today. BP stable. (3) Cirrhosis of liver: Qualifiers: Ascites presence: with ascites Hepatic cirrhosis type: unspecified hepatic cirrhosis Qualified Code(s): K74.60 - Unspecified cirrhosis of liver; R18.8 - Other ascites Code(s): K74.60 - Unspecified cirrhosis of liver Status: Suspected Assessment and Plan: Cirrhosis of the liver incidental finding on CT on 07/07/2022. Revealed small volume ascites. GI has been consulted Patient having right upper quadrant pain associated with nausea vomiting AST and ALT both 27 and alk-phos 257 Total protein 6, albumin 3.5 Patient does not have history of alcohol abuse (4) Nausea and vomiting: Qualifiers: Vomiting type: unspecified Qualified Code(s): R11.2 - Nausea with vomiting, unspecified Code(s): R11.2 - Nausea with vomiting, unspecified Status: Acute Assessment and Plan: May be due to ascites. Pt has hx of cholecystectomy. Pt having RUQ pain - US with hepatomegaly and cirrhosis. GI has been consulted. Continue Protonix 40 mg BID, IV Zofran PRN, calcium carbonate PRN The patient is not in DKA. H/o diabetes associated gastroparesis. Gastric content noted on EGD. Trial IV reglan AC/HS 07/12/22 Increase reglan to 10 mg IV AC/HS. Appreciate GI recommendations. Continue antiemetics. (5) Diarrhea: Qualifiers: Diarrhea type: unspecified type Qualified Code(s): R19.7 - Diarrhea, unspecified Code(s): R19.7 - Diarrhea, unspecified Status: Resolved Assessment and Plan: Patient states diarrhea has improved -07/08/2022 Stool cultures ordered, but not collected, cancelled cultures due to resolved diarrhea Stool occult blood ordered - uncollected Now with constipation. Reglan for gastroparesis and senna-plus (6) CHF (congestive heart failure): Qualifiers: Heart failure chronicity: chronic Heart failure type: combined systolic and diastolic Qualified Code(s): I50.42 - Chronic combined systolic (congestive) and diastolic (congestive) heart failure Code(s): I50.9 - Heart failure, unspecified Status: Chronic Assessment and Plan: Acute on chronic combined systolic and diastolic dysfunction, EF 35%. On dialysis. -4L daily for the past 2 days and -5L today 07/10/22 continue with Coreg and dialysis. Stable. (7) Diabetes mellitus: Qualifiers: Diabetes mellitus type: type 2 Diabetes mellitus termite exterminator helper insulin use: with termite exterminator helper use Diabetes mellitus complication status: with hyperglycemia Qualified Code(s): E11.65 - Type 2 diabetes mellitus with hyperglycemia; Z79.4 - superintendent container terminal (current) use of insulin Code(s): E11.9 - Type 2 diabete
[2022-07-12] MEDS: TICAGRELOR 90 MG TABLET PO ×2 (14:01→21:50)
[2022-07-12] MEDS: VITAMIN B CMPLX/VIT C/FOLIC AC 1 CAPSULE 1 CAP PO (14:01)
[2022-07-12] MEDS: ATORVASTATIN 40 MG TABLET 80 MG PO (14:01)
[2022-07-12] MEDS: calcitrioL 0.25 MCG CAPSULE PO (14:01)
[2022-07-12] MEDS: PANTOPRAZOLE 40 MG TABLET PO ×2 (14:04→21:50)
--- NOTE | 2022-07-12 15:35 | WPDGIPROGNO ---
Progress Note: A&P Assessment and Plan (1) Esophagitis: Code(s): K20.90 - Esophagitis, unspecified without bleeding Status: Acute Assessment and Plan: on protonix twice daily partially can explain n/v and coffee ground emesis (2) Coffee ground emesis: Code(s): K92.0 - Hematemesis Status: Acute Assessment and Plan: from esophagitis on ppi (3) Nausea and vomiting: Qualifiers: Vomiting type: unspecified Qualified Code(s): R11.2 - Nausea with vomiting, unspecified Code(s): R11.2 - Nausea with vomiting, unspecified Status: Acute Assessment and Plan: from esophagitis probably also gastroparesis antiemetics and added reglan home probably soon (4) ESRD on dialysis: Code(s): N18.6 - End stage renal disease; Z99.2 - Dependence on renal dialysis Status: Acute Assessment and Plan: by nephrology (5) Fluid overload: Qualifiers: Hypervolemia type: other Qualified Code(s): E87.79 - Other fluid overload Code(s): E87.70 - Fluid overload, unspecified Status: Acute (6) Insulin dependent diabetes mellitus: Status: Acute (7) Gastroparesis: Code(s): K31.84 - Gastroparesis Status: Acute (8) Cirrhosis of liver: Qualifiers: Hepatic cirrhosis type: unspecified hepatic cirrhosis Ascites presence: with ascites Qualified Code(s): K74.60 - Unspecified cirrhosis of liver; R18.8 - Other ascites Code(s): K74.60 - Unspecified cirrhosis of liver Status: Suspected Assessment and Plan: possible based on imaging liver enzymes ok (9) Coronary artery disease: Code(s): I25.10 - Atherosclerotic heart disease of [place] coronary artery without angina pectoris Status: Acute Assessment and Plan: ok to continue with brilinta given cardiac history hold aspirin for 1 week because ulcers in esophagus Subjective Date/time seen: 07/12/22 15:35 Interval history: able to tolerate lunch, still nauseous Review of Systems Review of Systems: All systems reviewed & are unremarkable except as noted in HPI and below Exam Narrative: GENERAL: no acute respiratory distress, HEENT: Normocephalic. Pupils equal and round. NECK: no lymphadenopathy. RESPIRATORY: clear to auscultation bilateral upper lobes, diminished bibasilar lobes. No wheezing. CARDIO: Normal S1 and S2 regular rate and rhythm. No murmurs. GI: soft, bowel sounds +, no rebound SKIN: no rashes. Normal for ethnicity. 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 Amputation of left great toe. No edema. NEURO: AOx3. Psych: Neutral mood and affect. Objective Data Vital Signs Vital Signs: Vital Signs - 24 hr 07/11/22 21:05 07/11/22 21:36 07/11/22 22:20 Temperature 97.1 F L Pulse Rate 66 68 Respiratory Rate 16 Blood Pressure 143/58 H Pulse Oximetry 100 100 97 Oxygen Delivery Nasal Cannula Room Air Oxygen Flow Rate 2 07/11/22 20:00 07/12/22 06:44 07/12/22 08:52 Temperature 97.2 F L 98.2 F Pulse Rate 68 66 Respiratory Rate 16 18 Blood Pressure 104/53 L 110/53 L Pulse Oximetry 99 Oxygen Delivery Nasal Cannula Oxygen Flow Rate 3 07/12/22 08:00 07/12/22 08:59 07/12/22 09:30 Temperature Pulse Rate 67 66 Respiratory Rate Blood Pressure 111/48 L 114/54 L Pulse Oximetry Oxygen Delivery Room Air Oxygen Flow Rate 07/12/22 10:00 07/12/22 10:30 07/12/22 11:00 Temperature Pulse Rate 67 71 68 Respiratory Rate Blood Pressure 104/46 L 106/52 L 108/47 L Pulse Oximetry Oxygen Delivery Oxygen Flow Rate 07/12/22 11:30 07/12/22 12:00 07/12/22 12:30 Temperature Pulse Rate 70 67 73 Respiratory Rate Blood Pressure 110/47 L 114/52 L 120/57 L Pulse Oximetry Oxygen Delivery Oxygen Flow Rate 07/12/22 12:32 07/12/22 14:00 Temperature 98.4 F 97.2 F L Pulse Rate 72 75 Respiratory Rat
[2022-07-12 16:37] LABS: Glucose Point of Care 274 mg/dl (65-105)
[2022-07-12] MEDS: SENNA/DOCUSATE SODIUM TABLET 2 TAB PO (17:22)
[2022-07-12] MEDS: METOCLOPRAMIDE HCL INJ 10 MG/2 ML VIAL IV PUSH ×2 (17:22→21:55)
[2022-07-12] MEDS: INSULIN ASPART (*BKC) 100 UNITS/ML 7 UNITS SUB-Q (17:23)
[2022-07-12] MEDS: INSULIN ASPART (*BKC) 100 UNITS/ML SUB-Q (17:23)
[2022-07-12] MEDS: SEVELAMER CARBONATE 800 MG TABLET PO (17:23)
[2022-07-12] MEDS: carvediloL 6.25 MG TABLET PO (21:50)
[2022-07-12] MEDS: INSULIN GLARGINE (*BKC) 100 UNITS/ML 10 UNITS SUB-Q (21:51)
[2022-07-12 22:03] LABS: Glucose Point of Care 114 mg/dl (65-105)
[2022-07-13 06:00] VITALS: BP 113/69; PULSE 76; RESP 18; TEMP 36.1; O2SAT 99
[2022-07-13] MEDS: METOCLOPRAMIDE HCL INJ 10 MG/2 ML VIAL IV PUSH ×2 (06:12→12:12)
[2022-07-13] MEDS: HYDROcodone/acetaminophen (*CRX) 7.5-325 MG TABLET 1 TAB PO ×2 (06:12→12:12)
[2022-07-13 08:11] LABS: Glucose Point of Care 159 mg/dl (65-105)
[2022-07-13] MEDS: INSULIN ASPART (*BKC) 100 UNITS/ML 7 UNITS SUB-Q (08:49)
[2022-07-13] MEDS: SEVELAMER CARBONATE 800 MG TABLET PO ×2 (08:50→12:30)
[2022-07-13] MEDS: ATORVASTATIN 40 MG TABLET 80 MG PO (08:50)
[2022-07-13] MEDS: VITAMIN B CMPLX/VIT C/FOLIC AC 1 CAPSULE 1 CAP PO (08:50)
[2022-07-13] MEDS: PANTOPRAZOLE 40 MG TABLET PO (08:50)
[2022-07-13] MEDS: calcitrioL 0.25 MCG CAPSULE PO (08:50)
[2022-07-13] MEDS: SENNA/DOCUSATE SODIUM TABLET 2 TAB PO (08:50)
[2022-07-13] MEDS: carvediloL 6.25 MG TABLET PO (08:51)
[2022-07-13] MEDS: TICAGRELOR 90 MG TABLET PO (08:53)
[2022-07-13 10:29] LABS: Ceruloplasmin 32 mg/dL (18-53)
[2022-07-13 11:52] LABS: Glucose Point of Care 94 mg/dl (65-105)
--- NOTE | 2022-07-13 13:40 | P.DS_ITS ---
DS: Admitting Diagnosis Discharge Date 07/13/2022 1421 Admitting Diagnosis Fluid overload ESRD on dialysis Nausea and vomiting CHF exacerbation Diabetes mellitus Diarrhea Hypertension DS: Discharge Diagnosis Discharge Diagnosis (1) Fluid overload: Qualifiers: Hypervolemia type: other Qualified Code(s): E87.79 - Other fluid overload Code(s): E87.70 - Fluid overload, unspecified Status: Acute Assessment and Plan: Patient has history of end-stage renal disease on HD, congestive heart failure and new found cirrhosis on CT. * CT revealed cirrhosis with a small amount of ascites * Chest x-ray shows persistent but improving left basilar atelectasis and small left effusion * compliant with her renal dialysis. * Patient given Lasix in the ER and then lactic acid found elevated to 4 and patient was given fluids in the ER * GI consulted due to newly found cirrhosis. * RUQ US consistent with hepatomegaly and cirrhosis. * Patient undwent dialysis 07/08/22 -4L, 07/09/22 -4L, 07/10/22 -5L and 07/12/22 - 4L?Hypervolemia improved with HD (2) ESRD on dialysis: Code(s): N18.6 - End stage renal disease; Z99.2 - Dependence on renal dialysis Status: Chronic Assessment and Plan: The patient has end-stage renal disease and on dialysis Friday. * Hand Inserter Operator Dr. Forbes consulted during admission. * Continued with sevelamer, rocaltrol, * Multiple dialysis days as above. (3) Cirrhosis of liver: Qualifiers: Ascites presence: with ascites Hepatic cirrhosis type: unspecified hepatic cirrhosis Qualified Code(s): K74.60 - Unspecified cirrhosis of liver; R18.8 - Other ascites Code(s): K74.60 - Unspecified cirrhosis of liver Status: Suspected Assessment and Plan: Cirrhosis of the liver incidental finding on CT on 07/07/2022. Revealed small volume ascites. * GI consulted. * AST and ALT both 27 and alk-phos 257 * Total protein 6, albumin 3.5 * Patient does not have history of alcohol abuse and likely secondary to GRAHAM (4) Nausea and vomiting: Qualifiers: Vomiting type: unspecified Qualified Code(s): R11.2 - Nausea with vomiting, unspecified Code(s): R11.2 - Nausea with vomiting, unspecified Status: Acute Assessment and Plan: Patient reported right upper quadrant pain associated with nausea and vomiting on admission. Pt has hx of cholecystectomy. * CT scan suggests liver cirrhosis with ascites. * US with hepatomegaly and cirrhosis. * GI consulted and EGD completed. * Treated with Protonix 40 mg BID, IV Zofran PRN, calcium carbonate PRN * The patient is not in DKA. * H/o diabetes associated gastroparesis. Gastric content noted on EGD. * Trialed IV reglan AC/HS and increased to 10 mg IV/PO AC/HS. Continued medication on discharge. * Educated on small portion sizes. (5) Diarrhea: Qualifiers: Diarrhea type: unspecified type Qualified Code(s): R19.7 - Diarrhea, unspecified Code(s): R19.7 - Diarrhea, unspecified Status: Resolved Assessment and Plan: Patient states diarrhea has improved -07/08/2022 * Stool cultures ordered, but not collected, cancelled cultures due to resolved diarrhea * Stool occult blood ordered - uncollected d/t no stool * Patient then with c/o constipation resolved with reglan for gastroparesis and senna-plus (6) CHF (congestive heart failure): Qualifiers: Heart failure chronicity: chronic Heart failure type: combined systolic and diastolic Qualified
--- NOTE | 2022-07-13 13:40 | PM.DS ---
DS: Admitting Diagnosis Discharge Date 07/13/2022 1421 Admitting Diagnosis Fluid overload ESRD on dialysis Nausea and vomiting CHF exacerbation Diabetes mellitus Diarrhea Hypertension DS: Discharge Diagnosis Discharge Diagnosis (1) Fluid overload: Qualifiers: Hypervolemia type: other Qualified Code(s): E87.79 - Other fluid overload Code(s): E87.70 - Fluid overload, unspecified Status: Acute Assessment and Plan: Patient has history of end-stage renal disease on HD, congestive heart failure and new found cirrhosis on CT. CT revealed cirrhosis with a small amount of ascites Chest x-ray shows persistent but improving left basilar atelectasis and small left effusion compliant with her renal dialysis. Patient given Lasix in the ER and then lactic acid found elevated to 4 and patient was given fluids in the ER GI consulted due to newly found cirrhosis. RUQ US consistent with hepatomegaly and cirrhosis. Patient undwent dialysis 07/08/22 -4L, 07/09/22 -4L, 07/10/22 -5L and 07/12/22 -4L?Hypervolemia improved with HD (2) ESRD on dialysis: Code(s): N18.6 - End stage renal disease; Z99.2 - Dependence on renal dialysis Status: Chronic Assessment and Plan: The patient has end-stage renal disease and on dialysis Friday. Radiography Technician Dr. Forbes consulted during admission. Continued with sevelamer, rocaltrol, Multiple dialysis days as above. (3) Cirrhosis of liver: Qualifiers: Ascites presence: with ascites Hepatic cirrhosis type: unspecified hepatic cirrhosis Qualified Code(s): K74.60 - Unspecified cirrhosis of liver; R18.8 - Other ascites Code(s): K74.60 - Unspecified cirrhosis of liver Status: Suspected Assessment and Plan: Cirrhosis of the liver incidental finding on CT on 07/07/2022. Revealed small volume ascites. GI consulted. AST and ALT both 27 and alk-phos 257 Total protein 6, albumin 3.5 Patient does not have history of alcohol abuse and likely secondary to [place] (4) Nausea and vomiting: Qualifiers: Vomiting type: unspecified Qualified Code(s): R11.2 - Nausea with vomiting, unspecified Code(s): R11.2 - Nausea with vomiting, unspecified Status: Acute Assessment and Plan: Patient reported right upper quadrant pain associated with nausea and vomiting on admission. Pt has hx of cholecystectomy. CT scan suggests liver cirrhosis with ascites. US with hepatomegaly and cirrhosis. GI consulted and EGD completed. Treated with Protonix 40 mg BID, IV Zofran PRN, calcium carbonate PRN The patient is not in DKA. H/o diabetes associated gastroparesis. Gastric content noted on EGD. Trialed IV reglan AC/HS and increased to 10 mg IV/PO AC/HS. Continued medication on discharge. Educated on small portion sizes. (5) Diarrhea: Qualifiers: Diarrhea type: unspecified type Qualified Code(s): R19.7 - Diarrhea, unspecified Code(s): R19.7 - Diarrhea, unspecified Status: Resolved Assessment and Plan: Patient states diarrhea has improved -07/08/2022 Stool cultures ordered, but not collected, cancelled cultures due to resolved diarrhea Stool occult blood ordered - uncollected d/t no stool Patient then with c/o constipation resolved with reglan for gastroparesis and senna-plus (6) CHF (congestive heart failure): Qualifiers: Heart failure chronicity: chronic Heart failure type: combined systolic and diastolic Qualified Code(s): I50.42 - Chronic combined systolic (congestive) and diastolic (congestive) heart failure Code(s): I50.9 - Heart failure, unspecified Status: Chronic Assessment and Plan: Acute on chronic combined systolic and diastolic dysfunction, EF 35% with presumed exacerbation d/t hypervolemia on admission, however it may also be secondary to liver cirrhosis. On dialysis continued with Coreg and dialysis. Sta
[2022-07-13 14:00] VITALS: BP 133/61; PULSE 73; RESP 12; TEMP 36.4; O2SAT 97
--- NOTE | 2022-07-13 15:27 | WPDGIPROGNO ---
Progress Note: A&P Assessment and Plan (1) Esophagitis: Code(s): K20.90 - Esophagitis, unspecified without bleeding Status: Acute Assessment and Plan: on protonix twice daily no more coffee ground emesis egd in 3 months ok to go home ok to resume aspirin 7 days after egd (2) Coffee ground emesis: Code(s): K92.0 - Hematemesis Status: Acute Assessment and Plan: resolved on ppi (3) Nausea and vomiting: Qualifiers: Vomiting type: unspecified Qualified Code(s): R11.2 - Nausea with vomiting, unspecified Code(s): R11.2 - Nausea with vomiting, unspecified Status: Acute Assessment and Plan: from esophagitis probably also gastroparesis antiemetics and added reglan she can follow-up office in 4-6 weeks (4) ESRD on dialysis: Code(s): N18.6 - End stage renal disease; Z99.2 - Dependence on renal dialysis Status: Acute Assessment and Plan: by nephrology (5) Fluid overload: Qualifiers: Hypervolemia type: other Qualified Code(s): E87.79 - Other fluid overload Code(s): E87.70 - Fluid overload, unspecified Status: Acute (6) Insulin dependent diabetes mellitus: Status: Acute (7) Gastroparesis: Code(s): K31.84 - Gastroparesis Status: Acute (8) Cirrhosis of liver: Qualifiers: Hepatic cirrhosis type: unspecified hepatic cirrhosis Ascites presence: with ascites Qualified Code(s): K74.60 - Unspecified cirrhosis of liver; R18.8 - Other ascites Code(s): K74.60 - Unspecified cirrhosis of liver Status: Suspected Assessment and Plan: possible based on imaging liver enzymes ok work up pending (9) Coronary artery disease: Code(s): I25.10 - Atherosclerotic heart disease of [place] coronary artery without angina pectoris Status: Acute Assessment and Plan: ok to continue with brilinta given cardiac history hold aspirin for 1 week because ulcers in esophagus Subjective Date/time seen: 07/13/22 15:27 Interval history: feeling better and going home today Review of Systems Review of Systems: All systems reviewed & are unremarkable except as noted in HPI and below Exam Narrative: GENERAL: no acute respiratory distress, HEENT: Normocephalic. Pupils equal and round. NECK: no lymphadenopathy. RESPIRATORY: clear to auscultation bilateral upper lobes, diminished bibasilar lobes. No wheezing. CARDIO: Normal S1 and S2 regular rate and rhythm. No murmurs. GI: soft, bowel sounds +, no rebound SKIN: no rashes. Normal for ethnicity. 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 Amputation of left great toe. No edema. NEURO: AOx3. Psych: Neutral mood and affect. Objective Data Vital Signs Vital Signs: Vital Signs - 24 hr 07/12/22 20:00 07/12/22 22:00 07/12/22 22:18 Temperature 96.5 F L Pulse Rate 71 Respiratory Rate 18 Blood Pressure 103/46 L Pulse Oximetry 100 98 Oxygen Delivery Room Air Room Air 07/13/22 06:00 07/13/22 08:00 07/13/22 14:00 Temperature 97.0 F L 97.6 F Pulse Rate 76 73 Respiratory Rate 18 12 Blood Pressure 113/69 133/61 Pulse Oximetry 99 97 Oxygen Delivery Room Air Intake/Output Intake/Output: Intake & Output 07/10/22 07/11/22 07/12/22 07/13/22 23:59 23:59 23:59 23:59 Intake Total 780 1342 2200 480 Output Total 5000 4000 Balance -4220 1342 -1800 480 Meds/Results Medications: Active Medications Generic Name Dose Route Start Last Admin Trade Name Freq PRN Reason Stop Dose Admin Hydrocodone Bitart/Acetaminophen 1 tab 07/08/22 01:02 07/13/22 12:12 Hydrocodone/Acetaminophen (*Crx) 7.5-325 Mg Tablet PO 1 tab Q4-6H PRN Administration Pain Rated 4-6 Atorvastatin Calcium 80 mg 07/08/22 09:00 07/13/22 08:50 Atorvastatin 40 Mg Tablet PO 80 mg DAILY JOHNSNO Administration Bisacodyl 10 mg 07/11/22 13:33 Bisacodyl 10
[2022-07-16 20:58] LABS: Mitochondrial (M2) Ab (IgG) <=20.0 U (<=20.0)
== END 2022-07-13 15:30 | disposition home or self-care (01) | DRG 291 ==
LOC: ANHED 19:36 → ANH3MEDSUR 19:38
PROVIDERS: Emergency Medicine; Internal Medicine Critical Care Medicine; Internal Medicine Gastroenterology; Nurse Practitioner; Admitting Provider Hospitalist; Emergency Provider General Practice; PCP Internal Medicine; Visit Provider Nurse Practitioner Family
PROC: 0DJ08ZZ Inspection of Upper Intestinal Tract, Via Natural or Artificial Opening Endoscopic (ICD-10-PCS; CPT 43235; principal; 2022-07-10 14:45)
DX: I13.2 Hypertensive heart and chronic kidney disease with heart failure and with stage 5 chronic kidney disease, or end stage renal disease (principal); G93.5 Compression of brain; I50.43 Acute on chronic combined systolic (congestive) and diastolic (congestive) heart failure; N18.6 End stage renal disease; R18.8 Other ascites; N25.81 Secondary hyperparathyroidism of renal origin; K92.0 Hematemesis; D63.1 Anemia in chronic kidney disease; E10.51 Type 1 diabetes mellitus with diabetic peripheral angiopathy without gangrene; E10.43 Type 1 diabetes mellitus with diabetic autonomic (poly)neuropathy; E10.22 Type 1 diabetes mellitus with diabetic chronic kidney disease; E10.65 Type 1 diabetes mellitus with hyperglycemia; E10.319 Type 1 diabetes mellitus with unspecified diabetic retinopathy without macular edema; E78.5 Hyperlipidemia, unspecified; F17.210 Nicotine dependence, cigarettes, uncomplicated; G47.30 Sleep apnea, unspecified; I25.10 Atherosclerotic heart disease of native coronary artery without angina pectoris; K74.60 Unspecified cirrhosis of liver; K31.84 Gastroparesis; K21.00 Gastro-esophageal reflux disease with esophagitis, without bleeding; K75.81 Nonalcoholic steatohepatitis (NASH); N25.0 Renal osteodystrophy; Z20.822 Contact with and (suspected) exposure to COVID-19; Z89.511 Acquired absence of right leg below knee; Z89.422 Acquired absence of other left toe(s); Z86.73 Personal history of transient ischemic attack (TIA), and cerebral infarction without residual deficits; Z95.5 Presence of coronary angioplasty implant and graft; Z95.1 Presence of aortocoronary bypass graft; Z90.49 Acquired absence of other specified parts of digestive tract; Z99.2 Dependence on renal dialysis; Z79.82 Long term (current) use of aspirin; Z79.4 Long term (current) use of insulin; Z99.89 Dependence on other enabling machines and devices
CPT/HCPCS: 36415; 36600; 71045; 74176; 76705; 80053; 82104; 82375; 82390; 82728; 82805; 82948; 83050; 83520; 83540; 83550; 83605; 83690; 83735; 85014; 85018; 85025; 85027; 85610; 85730; 86038; 86850; 86900; 86901; 87636; 88305; 93005; 96361; 96374; 96375; 96376; 99285; A9270; C9113; G0257; G0378; J1815; J1940; J2370; J2405; J2704; J2765; J7030; J7040

== ENCOUNTER 2022-10-21 04:12 | Inpatient (IN) | payer MEDICARE, OTHER, MEDICAID, SELFPAY ==
[2022-10-21] VITALS (30 sets, daily range): BP systolic 88–153; BP diastolic 22–75; PULSE 81–99; RESP 15–29; TEMP 36–37.3; O2SAT 84–100; BMI 32.9
--- NOTE | ~2022-10-21 | CT_ITS ---
EXAMINATION: CT abdomen pelvis w con DATE: 10/21/2022 06:07 INDICATION: Right abdominal pain. Shortness of breath. TECHNIQUE: Computed tomography (CT) of the abdomen and pelvis was performed with 100 mL Omnipaque 350 intravenous contrast. Automated exposure control and iterative reconstruction technique were employe d. The dose-length product was 886.25 mGy-cm. COMPARISON: CT abdomen pelvis 07/07/22 FINDINGS: The visualized portions of the lung bases demonstrate mild atelectasis. There is septal thi ckening, consistent with mild pulmonary edema. There are trace right and small left pleural effusions . Cardiomegaly is noted. There are coronary artery calcifications. No pericardial effusion. Median st ernotomy wires are noted. There is periportal edema in the liver. There are changes of cholecystectom y. There are widespread arterial calcifications. The spleen, pancreas, and adrenal glands are normal. There is moderate atrophy of the kidneys. There is widespread edema of the intra-abdominal fat and b enrique wall. There are no dilated loops of bowel. The appendix is normal. There is a small volume of asc ites. There is moderate stenosis of celiac axis origin. There are no pathologically enlarged lymph no micheal. There is mild thoracolumbar spondylosis. IMPRESSION: 1. Small volume of ascites. 2. Mild pulmonary edema. 3. Small left pleural effusion. Reviewed, dictated and finalized at location A.
--- NOTE | ~2022-10-21 | XR_ITS ---
EXAMINATION: XR chest 1V portable DATE: 10/21/2022 05:35 INDICATION: Dyspnea. TECHNIQUE: A single frontal view of the chest was obtained. COMPARISON: Chest single view 07/07/2022 FINDINGS: There are airspace opacities at left lung base. There is a small left pleural effusion. No pneumothorax. Cardiomegaly is noted. Median sternotomy wires and mediastinal surgical clips are seen, likely from prior coronary artery bypass grafting. IMPRESSION: 1. Stable airspace opacities at left lung base, consistent with atelectasis versus pneumonia. 2. Small left pleural effusion. 3. Cardiomegaly. Reviewed, dictated and finalized at location A. IMPRESSION: 1. Stable airspace opacities at left lung base, consistent with atelectasis [place] juana pneumonia. 2. Small left pleural effusion. 3. Cardiomegaly.
--- NOTE | 2022-10-21 04:53 | ECG_ITS ---
Measurements Intervals [address] Rate: 91 P: 102 AR: 176 QRS: -28 QRSD: 142 T: 70 QT: 386 QTc: 476 Interpretive Statements SINUS RHYTHM INDETERMINATE AXIS INCOMPLETE LEFT BUNDLE BRANCH BLOCK ABNORMAL ECG COMPARED TO ECG 07/07/2022 16:42:52 NO SIGNIFICANT CHANGE Electronically Signed On 10-21-2022 7:12:22 CDT by Edward Potter M.D.
[2022-10-21 06:01] LABS: Basophils Percent Auto 0.4 % (0.2-1.2); Eosinophils Absolute Auto 0.1 K/mm3 (0-0.3); Eosinophils Percent Auto 1.4 % (0-4.4); Hematocrit 37.6 % (37.0-47.0); Hemoglobin 12.3 g/dL (12.0-15.0); Immature Granulocyte Absolute 0.05 K/mm3 (0.00-0.031); Immature Granulocyte Percent A 0.5 % (0-0.5); Lymphocytes Absolute Auto 1.38 K/mm3 (0.9-3.2); Mean Corpuscular HGB Conc 32.7 g/dl (32-36); Mean Corpuscular Hemoglobin 32.5 pg (26-34); Mean Corpuscular Volume 99.5 fl (80-100); Mean Platelet Volume 11.3 fl (7.4-10.4); Monocytes Absolute Auto 0.5 K/mm3 (0.1-0.6); Monocytes Percent Auto 5.5 % (2.6-8.5); Neutrophils Absolute Auto 7.1 K/mm3 (1.3-6.7); Neutrophils Percent Auto 77.2 % (45.5-73.1); Platelet Count Result 151 k/mm3 (150-375); Red Blood Count 3.78 M/mm3 (4.2-5.4); Red Cell Distribution Width 15.8 % (11.5-14.5); White Blood Count 9.2 K/mm3 (4.5-10.0)
[2022-10-21 06:13] LABS: Alanine Aminotransferase 58 U/L (6-35); Albumin Level 4.8 g/dL (3.5-5.1); Alkaline Phosphatase 493 U/L (38-126); Anion Gap 18 mmol/L (8-16); Aspartate Amino Transferase 41 U/L (14-36); Bilirubin,Total 0.9 mg/dL (0.2-1.3); Blood Urea Nitrogen 83 mg/dL (7-17); Calcium 9.7 mg/dL (8.4-10.2); Carbon Dioxide 27 mmol/L (22-30); Chloride 87 mmol/L (98-107); Estimated CRCL calculation 10 ml/min; Estimated Glomerular Filt Rate 8; Glucose 466 mg/dL (65-110); Lipase 180 U/L (23-300); Magnesium 2.8 mg/dL (1.6-2.3); Potassium 5.8 mmol/L (3.4-5.0); Sodium 132 mmol/L (137-145)
[2022-10-21 06:14] LABS: INR 1.3; Lactic Acid Reflex 1.9 mmol/L (0.7-2.0); Prothrombin Time 15.3 Seconds (11.1-14.7)
[2022-10-21 06:15] LABS: Partial Thromboplastin Time 31.3 SECONDS (22.3-36.8)
[2022-10-21] MEDS: FUROSEMIDE INJ 100 MG/10 ML VIAL 80 MG IV PUSH (06:31)
[2022-10-21 06:32] LABS: Troponin I 0.104 ng/mL (0.000-0.034)
[2022-10-21] MEDS: DEXTROSE 50% 25 GM/50 ML SYRINGE IV PUSH (06:43)
[2022-10-21] MEDS: SODIUM BICARBONATE 8.4% 50 MEQ/50 ML SYRINGE IV PUSH (06:47)
--- NOTE | 2022-10-21 06:49 | ED.GENADULT ---
HPI - General Adult General Chief complaint: Shortness of Breath/Dyspnea Stated complaint: fluid overload SOB Time Seen by Provider: 10/21/22 04:22 History of Present Illness HPI narrative: This is a 47-year-old female with history of end-stage renal disease requiring hemodialysis Friday presenting ED with shortness of breath. Patient started to become acutely short of breath at midnight last night. patient was told to come to the emergency department. She has notes that she has had pitting edema of the lower extremities and of her abdomen. She denies fever chills, chest pain. additionally she is complaining of abdominal pain on the right side that started yesterday, sharp nonradiating 9 out 10 intensity and comes and goes. Not associated with nausea vomiting or diarrhea. Related Data Home Medications Medication Instructions Recorded Confirmed aspirin 81 mg tablet,delayed 81 mg PO DAILY 12/20/20 09/27/22 release sevelamer carbonate 800 mg tablet 800 mg PO TIDWM 03/13/21 09/27/22 carvedilol 6.25 mg tablet 6.25 mg PO Q12H 02/20/22 09/27/22 insulin glargine 100 unit/mL (3 10 unit subcut HS 02/28/22 09/27/22 mL) subcutaneous pen (Lantus Solostar U-100 Insulin) insulin lispro 100 unit/mL 7 unit subcut TIDWMEAL 02/28/22 09/27/22 subcutaneous pen (Humalog KwikPen (U-100) Insulin) insulin lispro 100 unit/mL See Protocol subcut TIDWMEAL 02/28/22 09/27/22 subcutaneous solution (Humalog U-100 Insulin) vitamin B complex-vitamin C-folic 0.8 tablet PO DAILY 03/06/22 09/27/22 acid 0.8 mg tablet (Renal Vitamin) atorvastatin 80 mg tablet 80 mg PO DAILY 05/02/22 09/27/22 ergocalciferol (vitamin D2) 1,250 50,000 unit PO WEEKLY 09/27/22 09/27/22 mcg (50,000 unit) capsule ticagrelor 90 mg tablet (Brilinta) 90 mg PO BID 09/27/22 09/27/22 Allergies Allergy/AdvReac Type Severity Reaction Status Date / Time No Known Drug Allergies Allergy Unknown Verified 09/27/22 11:51 PMFSH Past Medical History Medical History Acute cholecystitis (~02/2021) Acute electrocardiogram changes Anasarca Anemia Cardiac arrest Cerebrovascular accident Small old lacunar infarct at the head of the right caudate nucleus. Chest pain Chiari I malformation Chronic osteomyelitis Status post toe amputations Chronic, continuous use of opioids Coffee ground emesis Congestive heart failure Coronary artery disease Status post stent to the right coronary artery in August 2020. End-stage renal disease on hemodialysis On dialysis since June 2019. Erosive esophagitis Erythropoietin deficiency anemia Esophagitis determined by endoscopy (12/2019) Gastroparesis due to DM Hyperlipidemia Hypokalemia Nausea & vomiting Pulmonary edema Renal osteodystrophy Surgical History Surgical History Amputation of toe Two on the left AV fistula Left forearm History of section, classical X2 History of coronary artery stent placement times 3 History of laparoscopic cholecystectomy (03/15/21) History of myringotomy History of repair of rotator cuff History of tonsillectomy and adenoidectomy History of tubal ligation Hx of myringotomy Hx of right BKA Status post lateral meniscus repair Family History Family History Other Adopted Social History Social History Social History: She has 2 children and she lives with her of 28 years. She is on disability. She smoked up to a pack of cigarettes a day since the age of 16 but now smokes about a 4th a pack a day. She denies alcohol and illicit substance abuse. Surrogate decision maker: Diana Bhat, spouse. Code status: Full code. Years smoked: 20 Smoking status: Current every day smoker Tobacco type: cigarettes Second hand tobacco
[2022-10-21] MEDS: INSULIN HUMAN REGULAR (*BKC) 100 UNITS/ML 10 UNITS IV PUSH (06:50)
[2022-10-21] MEDS: CALCIUM GLUCONATE 1,000 MG/10 ML VIAL 2000 MG IV PUSH (06:51)
[2022-10-21] MEDS: SODIUM ZIRCONIUM CYCLOSILICATE 10 GM POWD.PACK PO (06:53)
[2022-10-21 06:56] LABS: Influenza A QL RT-PCR Negative (Negative); Influenza B QL RT-PCR Negative (Negative); RSV RNA, RT-PCR Negative (Negative); SARS-CoV-2 RNA PCR Negative (Negative)
[2022-10-21 07:09] LABS: Appearance Urine Clear (Clear); Bacteria Urine None Seen /hpf; Bilirubin Urine Negative (Negative); Blood Urine Negative (Negative); Color Urine Yellow (Yellow); Glucose Urine UA 3+ mg/dL (Negative); Ketones Urine Negative (Negative); Leukocyte Esterase Ur Trace LEU/UL (Negative); Need Manual Microscopic Reviewed; Nitrate Urine Negative (Negative); Non Pathogenic Casts 0-2; Protein Urine 2+ mg/dL (Negative); RBC Urine 0-2 /hpf (0-2); Specific Grav Ur 1.017 (1.001-1.035); Squamous Epithelial Cell Urine None seen /hpf (Few); Urobilinogen Urine 0.2 mg/dL (<2.0); pH Urine 7.5 (5.0-9.0)
[2022-10-21 07:10] LABS: Add Urine Microscopic? YES
--- NOTE | 2022-10-21 09:00 | PC.NURSE ---
tech awaiting assistance to transport pt to [facility].
[2022-10-21 09:40] LABS: Troponin I 0.096 ng/mL (0.000-0.034)
[2022-10-21 09:58] LABS: Hepatitis B Surface Antigen Negative (Negative)
--- NOTE | 2022-10-21 10:37 | PM.IMHP ---
H&P: HPI History of Present Illness Date/Time: 10/21/22 10:37 Chief Complaint: This is a 47-year-old female with history of end-stage renal disease requiring hemodialysis Friday presenting ED with shortness of breath.? Patient started to become acutely short of breath at midnight last night.? patient was? told to come to the emergency department.? She has notes that she has had pitting edema of the lower extremities and of her abdomen.? She denies fever chills, chest pain. ? additionally she is complaining of abdominal pain on the right side that started yesterday, sharp nonradiating 9 out 10 intensity and comes and goes.? Not associated with nausea vomiting or diarrhea. [facility] Past Medical History Medical History Acute cholecystitis (~02/2021) Acute electrocardiogram changes Anasarca Anemia Cardiac arrest Cerebrovascular accident Small old lacunar infarct at the head of the right caudate nucleus. Chest pain Chiari I malformation Chronic osteomyelitis Status post toe amputations Chronic, continuous use of opioids Coffee ground emesis Congestive heart failure Coronary artery disease Status post stent to the right coronary artery in August 2020. End-stage renal disease on hemodialysis On dialysis since June 2019. Erosive esophagitis Erythropoietin deficiency anemia Esophagitis determined by endoscopy (12/2019) Gastroparesis due to DM Hyperlipidemia Hypokalemia Nausea & vomiting Pulmonary edema Renal osteodystrophy Surgical History Surgical History Amputation of toe Two on the left AV fistula Left forearm History of section, classical X2 History of coronary artery stent placement times 3 History of laparoscopic cholecystectomy (03/15/21) History of myringotomy History of repair of rotator cuff History of tonsillectomy and adenoidectomy History of tubal ligation Hx of myringotomy Hx of right BKA Status post lateral meniscus repair Family History Family History Other Adopted Social History Social History Social History: She has 2 children and she lives with her of 28 years. She is on disability. She smoked up to a pack of cigarettes a day since the age of 16 but now smokes about a 4th a pack a day. She denies alcohol and illicit substance abuse. Surrogate decision maker: Diana Bhat, spouse. Code status: Full code. Years smoked: 20 Smoking status: Current every day smoker Tobacco type: cigarettes Second hand tobacco smoke exposure: No Additional smoking assessment comments: Smoked 1 pack a day since 16. Currently at 3 cigs per day Alcohol intake: never Drinks per week: 0 Substance use: never Substance use type: does not use Lack of Transportation: No Lack of Food: Never True Current Housing: I Have Housing Concerned About Future Housing: No Difficulty Paying Gas/Electric Bills: No Difficulty Paying for Meds: No Currently Unemployed: No Education: High School Diploma/GED Difficulty w/ Childcare or Family Care: No Living arrangements: with family Occupation/Education: unemployed Gender identity (if verbalized by the patient): Female Sexual Orientation (if Verbalized by the Patient): Straight or Heterosexual Spiritual care concerns: No Agree to blood products: Yes Meds Home Medications and Allergies Home Medications Medication Instructions Recorded Confirmed Type aspirin 81 mg tablet,delayed 81 mg PO DAILY 12/20/20 09/27/22 History release sevelamer carbonate 800 mg tablet 800 mg PO TIDWM 03/13/21 09/27/22 History calcitriol 0.25 mcg capsule 0.25 mcg PO QAM 30 days #30 caps 11/14/21 09/27/22 Rx (Rocaltrol) carvedilol 6.25 mg tablet 6.25 mg PO Q12H 02/20/22 09/27/22 His
[2022-10-21] MEDS: ALBUMIN HUMAN 25% 12.5 GM/50ML 50 ML IVPB (11:28)
[2022-10-21] MEDS: SODIUM CHLORIDE 0.9% IV 1,000 ML 999 ML IV CONT (11:29)
[2022-10-21 12:23] LABS: Troponin I 0.091 ng/mL (0.000-0.034)
[2022-10-21 13:00] LABS: Hepatitis B Surface Anti Res Indeterminate
--- NOTE | 2022-10-21 14:22 | PM.CNNEP ---
Assessment and Plan Assessment and plan (1) ESRD (end stage renal disease): Code(s): N18.6 - End stage renal disease Status: Acute Assessment and Plan: ESRD Fluid overload CHF DM type 1 with nephropathy HTN renal disease Anemia of CKD SHPT Plan -dialysis today dialysis daily a x three days at least F/u ESR and related History of Present Illness Reason for Consult Consult date: 10/21/22 Reason for consult: end stage renal disease Chief Complaint Chief complaint: Fluid Overload History of Present Illness Narrative: 47 yo WF, fluid retention, SOB, admitted with, pulmonary edema, need for dialysis. Has CPA at home for use at night for NOE. States she drank more fluids. No chest pains or other complaints PMFSH Past Medical History Medical History Acute cholecystitis (~02/2021) Acute electrocardiogram changes Anasarca Anemia Cardiac arrest Cerebrovascular accident Small old lacunar infarct at the head of the right caudate nucleus. Chest pain Chiari I malformation Chronic osteomyelitis Status post toe amputations Chronic, continuous use of opioids Coffee ground emesis Congestive heart failure Coronary artery disease Status post stent to the right coronary artery in August 2020. End-stage renal disease on hemodialysis On dialysis since June 2019. Erosive esophagitis Erythropoietin deficiency anemia Esophagitis determined by endoscopy (12/2019) Gastroparesis due to DM Hyperlipidemia Hypokalemia Nausea & vomiting Pulmonary edema Renal osteodystrophy Surgical History Surgical History Amputation of toe Two on the left AV fistula Left forearm History of section, classical X2 History of coronary artery stent placement times 3 History of laparoscopic cholecystectomy (03/15/21) History of myringotomy History of repair of rotator cuff History of tonsillectomy and adenoidectomy History of tubal ligation Hx of myringotomy Hx of right BKA Status post lateral meniscus repair Family History Family History Other Adopted Social History Social History Social History: She has 2 children and she lives with her of 28 years. She is on disability. She smoked up to a pack of cigarettes a day since the age of 16 but now smokes about a 4th a pack a day. She denies alcohol and illicit substance abuse. Surrogate decision maker: Diana Bhat, spouse. Code status: Full code. Years smoked: 20 Smoking status: Former smoker Tobacco type: cigarettes Second hand tobacco smoke exposure: No Additional smoking assessment comments: Smoked 1 pack a day since 16. Currently at 3 cigs per day Alcohol intake: former Drinks per week: 0 Substance use: never Substance use type: does not use Lack of Transportation: No Lack of Food: Never True Current Housing: I Have Housing Concerned About Future Housing: No Difficulty Paying Gas/Electric Bills: No Difficulty Paying for Meds: No Currently Unemployed: No Education: High School Diploma/GED Difficulty w/ Childcare or Family Care: No Living arrangements: with family Occupation/Education: unemployed Gender identity (if verbalized by the patient): Female Sexual Orientation (if Verbalized by the Patient): Straight or Heterosexual Spiritual care concerns: No Agree to blood products: Yes Meds Home Medications and Allergies Home Medications Medication Instructions Recorded Confirmed Type aspirin 81 mg tablet,delayed 81 mg PO DAILY 12/20/20 10/21/22 History release sevelamer carbonate 800 mg tablet 800 mg PO TIDWM 03/13/21 10/21/22 History calcitriol 0.25 mcg capsule 0.25 mcg PO QAM 30 days #30 caps 11/14/21 10/21/22 Rx (Rocaltrol) carvedilol 6.
[2022-10-21] MEDS: ACETAMINOPHEN 325 MG TABLET 650 MG PO (17:15)
[2022-10-21] MEDS: CEFEPIME 2 GM/NS 50 ML 2 GM/50 ML BAG IVPB (17:17)
[2022-10-21 17:28] LABS: Glucose Point of Care 237 mg/dl (65-105)
[2022-10-21] MEDS: INSULIN ASPART (*BKC) 100 UNITS/ML 7 UNITS SUB-Q (18:24)
[2022-10-21] MEDS: INSULIN ASPART (*BKC) 100 UNITS/ML SUB-Q (18:25)
[2022-10-21] MEDS: INSULIN GLARGINE (*BKC) 100 UNITS/ML 10 UNITS SUB-Q (20:52)
[2022-10-21] MEDS: TICAGRELOR 90 MG TABLET PO (20:53)
[2022-10-21] MEDS: carvediloL 6.25 MG TABLET PO (20:53)
[2022-10-21] MEDS: SUCRALFATE 1 GM TABLET PO (20:53)
[2022-10-21] MEDS: PANTOPRAZOLE 40 MG TABLET PO (20:53)
[2022-10-21] MEDS: SEVELAMER CARBONATE 800 MG TABLET PO (20:53)
[2022-10-21] MEDS: traMADol HCL (*CRX) 25 MG TABLET PO (20:54)
[2022-10-21 22:21] LABS: Glucose Point of Care 155 mg/dl (65-105)
[2022-10-22] VITALS (23 sets, daily range): BP systolic 102–136; BP diastolic 51–83; PULSE 63–85; RESP 14–18; TEMP 36–36.8; O2SAT 97–100
[2022-10-22] MEDS: ACETAMINOPHEN 325 MG TABLET 650 MG PO (05:45)
[2022-10-22] MEDS: SUCRALFATE 1 GM TABLET PO ×4 (05:45→20:33)
[2022-10-22 06:37] LABS: Estimated CRCL calculation 18 ml/min; Estimated Glomerular Filt Rate 13
[2022-10-22 08:38] LABS: Glucose Point of Care 135 mg/dl (65-105)
[2022-10-22] MEDS: SEVELAMER CARBONATE 800 MG TABLET PO ×4 (08:59→20:33)
[2022-10-22] MEDS: carvediloL 6.25 MG TABLET PO ×2 (09:00→20:33)
[2022-10-22] MEDS: ASPIRIN 81 MG ENTERIC TABLET PO (09:02)
[2022-10-22] MEDS: calcitrioL 0.25 MCG CAPSULE PO (09:02)
[2022-10-22] MEDS: ATORVASTATIN 40 MG TABLET 80 MG PO (09:02)
[2022-10-22] MEDS: TICAGRELOR 90 MG TABLET PO ×2 (09:02→20:33)
[2022-10-22] MEDS: VITAMIN B CMPLX/VIT C/FOLIC AC 1 CAPSULE 1 CAP PO (09:02)
[2022-10-22] MEDS: PANTOPRAZOLE 40 MG TABLET PO ×2 (09:02→20:33)
[2022-10-22] MEDS: INSULIN ASPART (*BKC) 100 UNITS/ML 7 UNITS SUB-Q ×2 (09:03→12:11)
--- NOTE | 2022-10-22 10:01 | PM.IMPN ---
Progress Note: A&P Assessment and Plan (1) ESRD (end stage renal disease): Code(s): N18.6 - End stage renal disease Status: Acute Assessment and Plan: HD volume overloaded -managed per Renal (2) Fluid overload: Code(s): E87.70 - Fluid overload, unspecified Status: Acute Assessment and Plan: 2/2 above Continue HD. (3) Pneumonia: Code(s): J18.9 - Pneumonia, unspecified organism Status: Acute Assessment and Plan: Low suspicion of pneumonia. Symptomatically she is improved after getting dialysis treatment. Antibiotics stopped (4) Coronary artery disease: Code(s): I25.10 - Atherosclerotic heart disease of [place] coronary artery without angina pectoris Status: Acute Assessment and Plan: no cp trop elevation likely related esrd and volume overload (5) Acute dyspnea: Code(s): R06.00 - Dyspnea, unspecified Status: Acute Assessment and Plan: Improved Subjective Date/time seen: 10/22/22 10:01 Breathing is much better. Exam Narrative: APPEARANCE: Patient appears chronically unwell Head: atraumatic. EYES: EOMI, NOSE: Atraumatic NECK: Trachea midline RESPIRATORY: tachypneic, hypoxic on room air, scattered crackles CARDIOVASCULAR: RRR, pitting edema of the left leg ABDOMINAL: distended, tenderness to palpation in the right upper quadrant without guarding or rebound MUSCULOSKELETAl: right BKA NEURO: Alert. Moving 4/4 extremities SKIN:: Warm, dry. Normal color PSYCHIATRIC: Normal affect Objective Data Vital Signs Vital Signs: Vital Signs - 24 hr 10/21/22 10:20 10/21/22 10:40 10/21/22 11:00 Temperature Pulse Rate 84 99 98 Respiratory Rate Blood Pressure 98/52 L 97/46 L 102/43 L Pulse Oximetry Oxygen Delivery 10/21/22 11:20 10/21/22 11:40 10/21/22 12:00 Temperature Pulse Rate 87 83 82 Respiratory Rate Blood Pressure 88/41 L 93/43 L 96/44 L Pulse Oximetry Oxygen Delivery 10/21/22 12:20 10/21/22 12:40 10/21/22 13:00 Temperature Pulse Rate 81 82 84 Respiratory Rate Blood Pressure 108/46 L 109/52 L 110/46 L Pulse Oximetry Oxygen Delivery 10/21/22 13:20 10/21/22 13:34 10/21/22 14:19 Temperature 97.8 F Pulse Rate 87 86 83 Respiratory Rate 15 Blood Pressure 110/48 L 100/59 L 117/36 L Pulse Oximetry Oxygen Delivery 10/21/22 12:00 10/21/22 14:00 10/21/22 16:00 Temperature 99.1 F Pulse Rate 84 82 86 Respiratory Rate 18 Blood Pressure 111/44 L Pulse Oximetry 98 Oxygen Delivery 10/21/22 19:00 10/21/22 20:53 10/21/22 20:00 Temperature 97.2 F L Pulse Rate 88 84 85 Respiratory Rate 18 Blood Pressure 133/47 L Pulse Oximetry 98 Oxygen Delivery 10/21/22 20:00 10/21/22 22:00 10/22/22 00:00 Temperature 97.9 F Pulse Rate 81 84 Respiratory Rate 18 Blood Pressure 100/46 L Pulse Oximetry 98 Oxygen Delivery Room Air 10/22/22 04:00 10/22/22 09:00 10/22/22 09:05 Temperature Pulse Rate 74 66 65 Respiratory Rate 14 Blood Pressure 113/56 L Pulse Oximetry 99 Oxygen Delivery Intake/Output Intake/Output: Intake & Output 10/19/22 10/20/22 10/21/22 10/22/22 23:59 23:59 23:59 23:59 Intake Total 830 240 Output Total 2717 Balance -1887 240 Meds/Results Medications: Active Medications Generic Name Dose Route Start Last Admin Trade Name Freq PRN Reason Stop Dose Admin Acetaminophen 650 mg 10/21/22 16:45 10/22/22 05:45 Acetaminophen 325 Mg Tablet PO 650 mg Q6H PRN Administration Mild Pain (1-3) or Fever Aspirin 81 mg 10/22/22 09:00 10/22/22 09:02 Aspirin 81 Mg Enteric Tablet PO 81 mg DAILY JOHNSON Administration Atorvastatin Calcium 80 mg 10/22/22 09:00 10/22/22 09:02 Atorvastatin 40 Mg Tablet PO 80 mg DAILY JOHNSON Administration Calcitriol 0.25 mcg 10/22/22 09:00 10/22/22 09:02 Calcitriol 0.25 Mcg Capsule PO 0.25 mcg [facility]
[2022-10-22 11:39] LABS: Glucose Point of Care 164 mg/dl (65-105)
[2022-10-22 18:17] LABS: Glucose Point of Care 96 mg/dl (65-105)
[2022-10-22] MEDS: INSULIN GLARGINE (*BKC) 100 UNITS/ML 10 UNITS SUB-Q (20:33)
[2022-10-22 21:13] LABS: Glucose Point of Care 94 mg/dl (65-105)
[2022-10-23] VITALS (24 sets, daily range): BP systolic 106–145; BP diastolic 40–77; PULSE 68–92; RESP 17–18; TEMP 36–37; O2SAT 96–99
[2022-10-23] MEDS: SUCRALFATE 1 GM TABLET PO ×3 (05:29→21:05)
[2022-10-23 05:36] LABS: Estimated CRCL calculation 22 ml/min; Estimated Glomerular Filt Rate 16
[2022-10-23 06:12] LABS: Vancomycin Random < 5.0 ug/mL (10-20)
[2022-10-23] MEDS: PANTOPRAZOLE 40 MG TABLET PO ×2 (08:01→21:05)
[2022-10-23] MEDS: ATORVASTATIN 40 MG TABLET 80 MG PO (08:01)
[2022-10-23] MEDS: VITAMIN B CMPLX/VIT C/FOLIC AC 1 CAPSULE 1 CAP PO (08:01)
[2022-10-23] MEDS: ASPIRIN 81 MG ENTERIC TABLET PO (08:01)
[2022-10-23] MEDS: calcitrioL 0.25 MCG CAPSULE PO (08:01)
[2022-10-23] MEDS: TICAGRELOR 90 MG TABLET PO ×2 (08:01→21:05)
[2022-10-23 08:36] LABS: Glucose Point of Care 119 mg/dl (65-105)
[2022-10-23] MEDS: SEVELAMER CARBONATE 800 MG TABLET PO ×3 (08:39→21:05)
[2022-10-23] MEDS: carvediloL 6.25 MG TABLET PO ×2 (09:06→21:05)
[2022-10-23 10:47] LABS: Hematocrit 33.6 % (37.0-47.0); Hemoglobin 10.9 g/dL (12.0-15.0); Mean Corpuscular HGB Conc 32.4 g/dl (32-36); Mean Corpuscular Hemoglobin 32.2 pg (26-34); Mean Corpuscular Volume 99.4 fl (80-100); Mean Platelet Volume 10.4 fl (7.4-10.4); Platelet Count Result 135 k/mm3 (150-375); Red Blood Count 3.38 M/mm3 (4.2-5.4); Red Cell Distribution Width 15.7 % (11.5-14.5); White Blood Count 7.4 K/mm3 (4.5-10.0)
[2022-10-23 11:05] LABS: Anion Gap 6 mmol/L (8-16); Blood Urea Nitrogen 25 mg/dL (7-17); Calcium 8.8 mg/dL (8.4-10.2); Carbon Dioxide 35 mmol/L (22-30); Chloride 94 mmol/L (98-107); Estimated CRCL calculation 29 ml/min; Estimated Glomerular Filt Rate 21; Glucose 144 mg/dL (65-110); Potassium 3.6 mmol/L (3.4-5.0); Sodium 135 mmol/L (137-145)
[2022-10-23 12:32] LABS: Glucose Point of Care 127 mg/dl (65-105)
[2022-10-23 12:33] LABS: Glucose Point of Care 127 mg/dl (65-105)
--- NOTE | 2022-10-23 15:31 | PM.IMPN ---
Progress Note: A&P Assessment and Plan (1) Respiratory failure: Code(s): J96.90 - Respiratory failure, unspecified, unspecified whether with hypoxia or hypercapnia Status: Acute (2) ESRD (end stage renal disease): Code(s): N18.6 - End stage renal disease Status: Acute (3) Fluid overload: Code(s): E87.70 - Fluid overload, unspecified Status: Acute (4) Acute dyspnea: Code(s): R06.00 - Dyspnea, unspecified Status: Acute (5) Diabetes mellitus: Qualifiers: Diabetes mellitus type: type 2 Diabetes mellitus halfway insulin use: with halfway use Diabetes mellitus complication status: with hyperglycemia Qualified Code(s): E11.65 - Type 2 diabetes mellitus with hyperglycemia; 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 1)Acute Resp Distress: ?2/2 Volume overload Improved on RA on HD as per renal Abx were stopped 2)ESRD on HD: Dialysis as per renal 3)Diabetes Mellitus: BG check TID AC and HS c/w Basal bolus regimen Adjust dose as needed 4)DVT ppx: hep SQ 5)Code:Full 6)Dispo:pending improvement Time Spent With Patient Time with patient: 15 - 25 minutes Subjective Date/time seen: 10/23/22 15:31 Interval history: no acute events overnight Review of Systems Review of Systems: All systems reviewed & are unremarkable except as noted in HPI and below Exam Narrative: APPEARANCE: Patient appears chronically unwell Head: atraumatic. EYES: EOMI, NOSE: Atraumatic NECK: Trachea midline RESPIRATORY: tachypneic, hypoxic on room air, scattered crackles CARDIOVASCULAR: RRR, pitting edema of the left leg ABDOMINAL: distended, tenderness to palpation in the right upper quadrant without guarding or rebound MUSCULOSKELETAl: right BKA NEURO: Alert. Moving 4/4 extremities SKIN:: Warm, dry. Normal color PSYCHIATRIC: Normal affect Objective Data Vital Signs Vital Signs: Vital Signs - 24 hr 10/22/22 15:37 10/22/22 15:55 10/22/22 16:00 Temperature 97.3 F L Pulse Rate 63 63 65 Respiratory Rate 18 Blood Pressure 129/61 135/61 125/57 L Pulse Oximetry 98 Oxygen Delivery 10/22/22 16:20 10/22/22 16:40 10/22/22 17:00 Temperature Pulse Rate 64 64 64 Respiratory Rate Blood Pressure 115/62 131/83 134/60 Pulse Oximetry Oxygen Delivery 10/22/22 17:20 10/22/22 17:40 10/22/22 18:00 Temperature Pulse Rate 78 64 65 Respiratory Rate Blood Pressure 102/62 119/53 L 117/56 L Pulse Oximetry Oxygen Delivery 10/22/22 18:20 10/22/22 18:40 10/22/22 19:00 Temperature Pulse Rate 68 66 66 Respiratory Rate Blood Pressure 106/58 L 136/52 L 117/57 L Pulse Oximetry Oxygen Delivery 10/22/22 19:20 10/22/22 19:30 10/22/22 19:25 Temperature 97.3 F L Pulse Rate 65 67 64 Respiratory Rate 18 Blood Pressure 106/56 L 127/64 115/56 L Pulse Oximetry 99 Oxygen Delivery 10/22/22 20:33 10/22/22 21:54 10/22/22 20:00 Temperature 98.3 F Pulse Rate 85 69 72 Respiratory Rate 18 Blood Pressure 115/51 L Pulse Oximetry 100 Oxygen Delivery 10/23/22 00:00 10/23/22 04:00 10/23/22 05:18 Temperature 98.3 F Pulse Rate 68 91 92 Respiratory Rate 17 Blood Pressure 106/40 L Pulse Oximetry 97 Oxygen Delivery 10/23/22 09:06 10/23/22 09:00 10/23/22 09:30 Temperature 98.1 F Pulse Rate 84 84 Respiratory Rate 18 Blood Pressure 136/65 Pulse Oximetry 98 Oxygen Delivery Room Air 10/23/22 09:45 10/23/22 10:00 10/23/22 10:20 Temperature Pulse Rate 83 83 81 Respiratory Rate Blood Pressure 134/63 130/65 127/63 Pulse Oximetry Oxygen Delivery 10/23/22 10:40 10/23/22 11:00 10/23/22 11:20 [facility]
[2022-10-23 17:07] LABS: Glucose Point of Care 190 mg/dl (65-105)
[2022-10-23] MEDS: INSULIN ASPART (*BKC) 100 UNITS/ML 7 UNITS SUB-Q (17:21)
[2022-10-23 21:06] LABS: Glucose Point of Care 154 mg/dl (65-105)
[2022-10-23] MEDS: INSULIN GLARGINE (*BKC) 100 UNITS/ML 10 UNITS SUB-Q (21:08)
[2022-10-23] MEDS: ACETAMINOPHEN 325 MG TABLET 650 MG PO (21:57)
--- NOTE | 2022-10-23 22:16 | PM.PNNEP ---
Progress Note: A&P Assessment and Plan (1) ESRD (end stage renal disease): Code(s): N18.6 - End stage renal disease Status: Acute Assessment and Plan: ESRD Fluid overload CHF DM type 1 with nephropathy HTN renal disease Anemia of CKD SHPT Plan -dialysis daily including tomorrow and on Friday - not to be discharged until she obtains a visible fluid balance - maintain treatment plans - discussed with patient - she is agreeable to treatment plans Subjective Date/time seen: 10/23/22 22:16 Interval history: ESRD f/u Seen and examined on hemodialysis this am at approximately 1030AM Doing OK Feels heavy in legs, hard to stand up per patient Is an amputee Exam Narrative: Seen and examined on hemodialysis, face still swollen, edematous legs and stump, edematous arms, av fistula in use, regular rate rhythm, JVD negative: Regular rhythm, lungs clear. Abdomen: soft nontender, no masses, neuro: Alert and oriented x3, no tremors Objective Data Vital Signs Vital Signs: Vital Signs - 24 hr 10/23/22 00:00 10/23/22 04:00 10/23/22 05:18 Temperature 36.8 C Pulse Rate 68 91 92 Respiratory Rate 17 Blood Pressure 106/40 L Pulse Oximetry 97 Oxygen Delivery 10/23/22 09:06 10/23/22 09:00 10/23/22 09:30 Temperature 36.7 C Pulse Rate 84 84 Respiratory Rate 18 Blood Pressure 136/65 Pulse Oximetry 98 Oxygen Delivery Room Air 10/23/22 09:45 10/23/22 10:00 10/23/22 10:20 Temperature Pulse Rate 83 83 81 Respiratory Rate Blood Pressure 134/63 130/65 127/63 Pulse Oximetry Oxygen Delivery 10/23/22 10:40 10/23/22 11:00 10/23/22 11:20 Temperature Pulse Rate 83 81 81 Respiratory Rate Blood Pressure 132/77 129/57 L 127/59 L Pulse Oximetry Oxygen Delivery 10/23/22 11:40 10/23/22 12:00 10/23/22 12:20 Temperature Pulse Rate 84 81 80 Respiratory Rate Blood Pressure 145/66 H 137/60 127/56 L Pulse Oximetry Oxygen Delivery 10/23/22 12:40 10/23/22 13:00 10/23/22 13:15 Temperature Pulse Rate 80 81 81 Respiratory Rate Blood Pressure 115/57 L 110/51 L 127/65 Pulse Oximetry Oxygen Delivery 10/23/22 13:20 10/23/22 15:04 10/23/22 08:00 Temperature 36.6 C 36.6 C Pulse Rate 81 83 84 Respiratory Rate 18 18 Blood Pressure 120/62 115/51 L Pulse Oximetry 99 96 Oxygen Delivery 10/23/22 12:00 10/23/22 16:00 10/23/22 21:05 Temperature Pulse Rate 82 85 72 Respiratory Rate Blood Pressure Pulse Oximetry Oxygen Delivery 10/23/22 22:00 Temperature 37.0 C Pulse Rate 87 Respiratory Rate 18 Blood Pressure 120/52 L Pulse Oximetry 97 Oxygen Delivery Intake/Output Intake/Output: Intake & Output 10/20/22 10/21/22 10/22/22 10/23/22 23:59 23:59 23:59 23:59 Intake Total 830 1950 1065 Output Total 2717 3500 3500 [facility] -2104 -3638 -3510 Meds/Results Medications: Active Medications Generic Name Dose Route Start Last Admin Trade Name Freq PRN Reason Stop Dose Admin Acetaminophen 650 mg 10/21/22 16:45 10/23/22 21:57 Acetaminophen 325 Mg Tablet PO 650 mg Q6H PRN Administration Mild Pain (1-3) or Fever Aspirin 81 mg 10/22/22 09:00 10/23/22 08:01 Aspirin 81 Mg Enteric Tablet PO 81 mg DAILY JOHNSON Administration Atorvastatin Calcium 80 mg 10/22/22 09:00 10/23/22 08:01 Atorvastatin 40 Mg Tablet PO 80 mg DAILY JOHNSON Administration Calcitriol 0.25 mcg 10/22/22 09:00 10/23/22 08:01 Calcitriol 0.25 Mcg Capsule PO 0.25 mcg QAM JOHNSON Administration Carvedilol 6.25 mg 10/21/22 21:00 10/23/22 21:05 Carvedilol 6.25 Mg Tablet PO 6.25 mg Q12H JOHNSON Administration Dextrose 12.5 gm 10/21/22 18:04 Dextrose 50% 25 Gm/50 Ml Syringe IV PUSH PRN PRN Hypoglycemia Protocol Ergocalciferol 50,000 units 10/27/22 09:00 Ergocalciferol 50,000 Units Capsule PO Goode@0900 [facility] Glucagon 1 mg
[2022-10-24] VITALS (26 sets, daily range): BP systolic 101–141; BP diastolic 49–68; PULSE 73–91; RESP 18–21; TEMP 36–36.9; O2SAT 100
[2022-10-24 05:21] LABS: Basophils Percent Auto 0.5 % (0.2-1.2); Eosinophils Absolute Auto 0.1 K/mm3 (0-0.3); Eosinophils Percent Auto 1.2 % (0-4.4); Hematocrit 35.7 % (37.0-47.0); Hemoglobin 11.1 g/dL (12.0-15.0); Immature Granulocyte Absolute 0.01 K/mm3 (0.00-0.031); Immature Granulocyte Percent A 0.2 % (0-0.5); Lymphocytes Percent Auto 18.7 % (18.3-44.2); Mean Corpuscular HGB Conc 31.1 g/dl (32-36); Mean Corpuscular Hemoglobin 31.8 pg (26-34); Mean Corpuscular Volume 102.3 fl (80-100); Mean Platelet Volume 11.1 fl (7.4-10.4); Monocytes Absolute Auto 0.5 K/mm3 (0.1-0.6); Monocytes Percent Auto 8.3 % (2.6-8.5); Neutrophils Absolute Auto 4.6 K/mm3 (1.3-6.7); Neutrophils Percent Auto 71.1 % (45.5-73.1); Platelet Count Result 121 k/mm3 (150-375); Red Blood Count 3.49 M/mm3 (4.2-5.4); Red Cell Distribution Width 15.8 % (11.5-14.5); White Blood Count 6.4 K/mm3 (4.5-10.0)
[2022-10-24 05:34] LABS: Anion Gap 9 mmol/L (8-16); Blood Urea Nitrogen 28 mg/dL (7-17); Calcium 9.1 mg/dL (8.4-10.2); Carbon Dioxide 33 mmol/L (22-30); Chloride 94 mmol/L (98-107); Estimated CRCL calculation 25 ml/min; Estimated Glomerular Filt Rate 18; Glucose 185 mg/dL (65-110); Potassium 3.7 mmol/L (3.4-5.0); Sodium 136 mmol/L (137-145)
[2022-10-24] MEDS: SUCRALFATE 1 GM TABLET PO ×3 (07:21→22:46)
[2022-10-24] MEDS: VITAMIN B CMPLX/VIT C/FOLIC AC 1 CAPSULE 1 CAP PO (08:05)
[2022-10-24] MEDS: ATORVASTATIN 40 MG TABLET 80 MG PO (08:05)
[2022-10-24] MEDS: TICAGRELOR 90 MG TABLET PO ×2 (08:05→21:29)
[2022-10-24] MEDS: SEVELAMER CARBONATE 800 MG TABLET PO ×4 (08:06→21:29)
[2022-10-24] MEDS: calcitrioL 0.25 MCG CAPSULE PO (08:06)
[2022-10-24] MEDS: ASPIRIN 81 MG ENTERIC TABLET PO (08:06)
[2022-10-24] MEDS: carvediloL 6.25 MG TABLET PO ×2 (08:06→21:29)
[2022-10-24] MEDS: PANTOPRAZOLE 40 MG TABLET PO ×2 (08:07→21:29)
[2022-10-24 08:40] LABS: Glucose Point of Care 169 mg/dl (65-105)
--- NOTE | 2022-10-24 08:45 | PC.NURSE ---
To dialysis via bed.
--- NOTE | 2022-10-24 13:27 | PC.NURSE ---
Returned from dialysis via bed.
[2022-10-24] MEDS: SILVERGEL (ELTA) 45 ML 1 APPLIC TOPICAL (13:29)
[2022-10-24 13:36] LABS: Glucose Point of Care 147 mg/dl (65-105)
[2022-10-24] MEDS: INSULIN ASPART (*BKC) 100 UNITS/ML 8 UNITS SUB-Q (13:40)
--- NOTE | 2022-10-24 15:36 | PM.IMPN ---
Progress Note: A&P Assessment and Plan (1) Respiratory failure: Code(s): J96.90 - Respiratory failure, unspecified, unspecified whether with hypoxia or hypercapnia Status: Acute (2) ESRD (end stage renal disease): Code(s): N18.6 - End stage renal disease Status: Acute (3) Fluid overload: Code(s): E87.70 - Fluid overload, unspecified Status: Acute (4) Acute dyspnea: Code(s): R06.00 - Dyspnea, unspecified Status: Acute (5) Diabetes mellitus: Qualifiers: Diabetes mellitus type: type 2 Diabetes mellitus [facility] insulin use: with [facility] use Diabetes mellitus complication status: with hyperglycemia Qualified Code(s): E11.65 - Type 2 diabetes mellitus with hyperglycemia; Z79.4 - long term care administrator (current) use of insulin Code(s): E11.9 - Type 2 diabetes mellitus without complications Status: Chronic Plan 47-year-old female with history of end-stage renal disease requiring hemodialysis Friday presenting ED with shortness of breath. 1)Acute Resp Distress: ?2/2 Volume overload Improved on RA on HD as per renal Abx were stopped 2)ESRD on HD: Dialysis as per renal 3)Diabetes Mellitus: BG check TID AC and HS c/w Basal bolus regimen (increased dose of lantus and aspart) Adjust dose as needed 4)DVT ppx: hep SQ 5)Code:Full 6)Dispo:pending improvement Time Spent With Patient Time with patient: 15 - 25 minutes Subjective Date/time seen: 10/24/22 15:36 Interval history: no acute events overnight Review of Systems Review of Systems: All systems reviewed & are unremarkable except as noted in HPI and below Exam Narrative: APPEARANCE: Patient appears chronically unwell Head: atraumatic. EYES: EOMI, NOSE: Atraumatic NECK: Trachea midline RESPIRATORY: on RA, Decreased breath sounds B/L CARDIOVASCULAR: RRR, pitting edema of the left leg ABDOMINAL:soft, non tender MUSCULOSKELETAl: right BKA NEURO: Alert. Moving 4/4 extremities SKIN:: Warm, dry. Normal color PSYCHIATRIC: Normal affect Objective Data Vital Signs Vital Signs: Vital Signs - 24 hr 10/23/22 16:00 10/23/22 21:05 10/23/22 22:00 Temperature 98.6 F Pulse Rate 85 72 87 Respiratory Rate 18 Blood Pressure 120/52 L Pulse Oximetry 97 Oxygen Delivery 10/23/22 20:00 10/24/22 00:00 10/24/22 04:00 Temperature Pulse Rate 85 84 77 Respiratory Rate Blood Pressure Pulse Oximetry Oxygen Delivery 10/24/22 04:59 10/24/22 08:06 10/24/22 09:06 Temperature 98.4 F 97.7 F Pulse Rate 75 79 80 Respiratory Rate 18 18 Blood Pressure 108/50 L 124/62 Pulse Oximetry 100 Oxygen Delivery 10/24/22 09:20 10/24/22 09:40 10/24/22 10:00 Temperature Pulse Rate 78 78 79 Respiratory Rate Blood Pressure 115/57 L 114/53 L 124/49 L Pulse Oximetry Oxygen Delivery 10/24/22 10:20 10/24/22 10:40 10/24/22 11:00 Temperature Pulse Rate 78 79 81 Respiratory Rate Blood Pressure 121/58 L 122/52 L 121/52 L Pulse Oximetry Oxygen Delivery 10/24/22 11:20 10/24/22 11:40 10/24/22 12:00 Temperature Pulse Rate 82 80 80 Respiratory Rate Blood Pressure 115/60 116/57 L 101/58 L Pulse Oximetry Oxygen Delivery 10/24/22 12:20 10/24/22 12:40 10/24/22 12:52 Temperature Pulse Rate 88 80 82 Respiratory Rate Blood Pressure 133/56 L 117/54 L 141/68 H Pulse Oximetry Oxygen Delivery 10/24/22 12:57 10/24/22 08:00 10/24/22 08:00 Temperature 98.1 F Pulse Rate 80 78 Respiratory Rate 18 18 Blood Pressure 138/66 Pulse Oximetry 100 Oxygen Delivery Room Air 10/24/22 12:04 10/24/22 14:19 Temperature 97.9 F Pulse Rate 79 82 Respiratory Rate 18 Blood Pressure 117/51 L Pulse Oximetry 100 Oxygen Delivery Intake/Output Intake/Output: Intake & Output 10/21/22 10/22/22 10/23/22 10/24/22 23:59 23:59 23:59 23:59 Intake Total 830 1950 1065 510 Output
[2022-10-24 17:19] LABS: Glucose Point of Care 76 mg/dl (65-105)
[2022-10-24] MEDS: ACETAMINOPHEN 325 MG TABLET 650 MG PO (21:31)
[2022-10-24 21:44] LABS: Glucose Point of Care 337 mg/dl (65-105)
[2022-10-24] MEDS: INSULIN GLARGINE (*BKC) 100 UNITS/ML 11 UNITS SUB-Q (21:45)
[2022-10-24] MEDS: INSULIN ASPART (*BKC) 100 UNITS/ML SUB-Q (22:46)
[2022-10-25] VITALS (25 sets, daily range): BP systolic 85–120; BP diastolic 48–65; PULSE 62–90; RESP 18–20; TEMP 36–36.9; O2SAT 98–100
[2022-10-25] MEDS: traMADol HCL (*CRX) 25 MG TABLET PO (00:34)
[2022-10-25 05:13] LABS: Basophils Percent Auto 0.5 % (0.2-1.2); Eosinophils Absolute Auto 0.1 K/mm3 (0-0.3); Eosinophils Percent Auto 1.2 % (0-4.4); Hematocrit 35.8 % (37.0-47.0); Hemoglobin 11.2 g/dL (12.0-15.0); Immature Granulocyte Absolute 0.02 K/mm3 (0.00-0.031); Immature Granulocyte Percent A 0.3 % (0-0.5); Lymphocytes Absolute Auto 1.09 K/mm3 (0.9-3.2); Lymphocytes Percent Auto 18.4 % (18.3-44.2); Mean Corpuscular HGB Conc 31.3 g/dl (32-36); Mean Corpuscular Volume 102.3 fl (80-100); Mean Platelet Volume 10.6 fl (7.4-10.4); Monocytes Absolute Auto 0.6 K/mm3 (0.1-0.6); Monocytes Percent Auto 9.5 % (2.6-8.5); Neutrophils Absolute Auto 4.2 K/mm3 (1.3-6.7); Neutrophils Percent Auto 70.1 % (45.5-73.1); Platelet Count Result 119 k/mm3 (150-375); Red Cell Distribution Width 15.8 % (11.5-14.5); White Blood Count 5.9 K/mm3 (4.5-10.0)
[2022-10-25 05:29] LABS: Anion Gap 9 mmol/L (8-16); Blood Urea Nitrogen 23 mg/dL (7-17); Calcium 9.2 mg/dL (8.4-10.2); Carbon Dioxide 35 mmol/L (22-30); Chloride 92 mmol/L (98-107); Estimated CRCL calculation 24 ml/min; Estimated Glomerular Filt Rate 17; Glucose 300 mg/dL (65-110); Potassium 3.4 mmol/L (3.4-5.0); Sodium 136 mmol/L (137-145)
[2022-10-25] MEDS: SUCRALFATE 1 GM TABLET PO ×2 (06:02→22:20)
--- NOTE | 2022-10-25 08:08 | PC.NURSE ---
Spoke with cad draftsman to clarify which medications I can give before 0900 treatment. She would like me to hold meds until after, give insulin if patient eats breakfast
[2022-10-25 08:44] LABS: Glucose Point of Care 222 mg/dl (65-105)
[2022-10-25] MEDS: INSULIN ASPART (*BKC) 100 UNITS/ML 8 UNITS SUB-Q ×2 (08:48→13:56)
[2022-10-25] MEDS: INSULIN ASPART (*BKC) 100 UNITS/ML SUB-Q (08:48)
--- NOTE | 2022-10-25 09:39 | PM.IMPN ---
Progress Note: A&P Assessment and Plan (1) Respiratory failure: Code(s): J96.90 - Respiratory failure, unspecified, unspecified whether with hypoxia or hypercapnia Status: Acute (2) ESRD (end stage renal disease): Code(s): N18.6 - End stage renal disease Status: Acute (3) Fluid overload: Code(s): E87.70 - Fluid overload, unspecified Status: Acute (4) Acute dyspnea: Code(s): R06.00 - Dyspnea, unspecified Status: Acute (5) Diabetes mellitus: Qualifiers: Diabetes mellitus type: type 2 Diabetes mellitus care home insulin use: with care home use Diabetes mellitus complication status: with hyperglycemia Qualified Code(s): E11.65 - Type 2 diabetes mellitus with hyperglycemia; Z79.4 - buttermaker (current) use of insulin Code(s): E11.9 - Type 2 diabetes mellitus without complications Status: Chronic Plan 47-year-old female with history of end-stage renal disease requiring hemodialysis Friday presenting ED with shortness of breath. 1)Acute Resp Distress: ?2/2 Volume overload Improved on RA on HD as per renal Abx were stopped 2)ESRD on HD: Dialysis as per renal 3)Diabetes Mellitus: BG check TID AC and HS c/w Basal bolus regimen (increased dose of lantus and aspart) Adjust dose as needed 4)DVT ppx: hep SQ 5)Code:Full 6)Dispo:pending improvement 10/25/2022 Patient is feeling slightly better today. Patient shortness of breath is improving. Plan is to continue current treatment and dialysis. Monitor platelets closely. Discharge when patient is more stable. Subjective Date/time seen: 10/25/22 09:39 Patient was seen during the morning rounds today. Mild shortness of breath. No chest pain. Abdominal pain. No nausea or vomiting. Mood stable. Review of Systems Review of Systems: All systems reviewed & are unremarkable except as noted in HPI and below Exam Narrative: APPEARANCE: Patient appears chronically unwell Head: atraumatic. EYES: EOMI, NOSE: Atraumatic NECK: Trachea midline RESPIRATORY: on RA, Decreased breath sounds B/L CARDIOVASCULAR: RRR, pitting edema of the left leg ABDOMINAL:soft, non tender MUSCULOSKELETAl: right BKA, wound healing well NEURO: Alert. Moving 4/4 extremities SKIN:: Warm, dry. Normal color PSYCHIATRIC: Normal affect Objective Data Vital Signs Vital Signs: Vital Signs - 24 hr 10/24/22 09:40 10/24/22 10:00 10/24/22 10:20 Temperature Pulse Rate 78 79 78 Respiratory Rate Blood Pressure 114/53 L 124/49 L 121/58 L Pulse Oximetry Oxygen Delivery 10/24/22 10:40 10/24/22 11:00 10/24/22 11:20 Temperature Pulse Rate 79 81 82 Respiratory Rate Blood Pressure 122/52 L 121/52 L 115/60 Pulse Oximetry Oxygen Delivery 10/24/22 11:40 10/24/22 12:00 10/24/22 12:20 Temperature Pulse Rate 80 80 88 Respiratory Rate Blood Pressure 116/57 L 101/58 L 133/56 L Pulse Oximetry Oxygen Delivery 10/24/22 12:40 10/24/22 12:52 10/24/22 12:57 Temperature 36.7 C Pulse Rate 80 82 80 Respiratory Rate 18 Blood Pressure 117/54 L 141/68 H 138/66 Pulse Oximetry Oxygen Delivery 10/24/22 12:04 10/24/22 14:19 10/24/22 16:01 Temperature 36.6 C Pulse Rate 79 82 91 Respiratory Rate 18 Blood Pressure 117/51 L Pulse Oximetry 100 Oxygen Delivery 10/24/22 21:29 10/24/22 22:00 10/24/22 20:00 Temperature 36.3 C L Pulse Rate 73 73 Respiratory Rate 21 H Blood Pressure 115/57 L Pulse Oximetry 100 Oxygen Delivery Room Air 10/24/22 20:00 10/25/22 00:00 10/25/22 04:00 Temperature Pulse Rate 73 68 62 Respiratory Rate Blood Pressure Pulse Oximetry Oxygen Delivery 10/25/22 06:00 10/25/22 08:16 10/25/22 09:13 Temperature 36.1 C L 36.6 C Pulse Rate 65 86 67 Respiratory Rate 20 18 18 Blood Pressure 107/48 L 113/65 109/59 L Pulse Oximetry 99 98 Oxygen Delivery Intake/Outpu
--- NOTE | 2022-10-25 10:17 | PC.NURSE ---
Linens changed per pt request.
[2022-10-25] MEDS: ACETAMINOPHEN 325 MG TABLET 650 MG PO ×2 (11:07→18:19)
[2022-10-25 11:17] LABS: Glucose Point of Care 177 mg/dl (65-105)
[2022-10-25 13:36] LABS: Glucose Point of Care 121 mg/dl (65-105)
[2022-10-25] MEDS: TICAGRELOR 90 MG TABLET PO ×2 (13:55→21:49)
[2022-10-25] MEDS: ATORVASTATIN 40 MG TABLET 80 MG PO (13:55)
[2022-10-25] MEDS: calcitrioL 0.25 MCG CAPSULE PO (13:55)
[2022-10-25] MEDS: carvediloL 6.25 MG TABLET PO ×2 (13:55→21:49)
[2022-10-25] MEDS: PANTOPRAZOLE 40 MG TABLET PO ×2 (13:55→21:48)
[2022-10-25] MEDS: SEVELAMER CARBONATE 800 MG TABLET PO ×3 (13:55→21:49)
[2022-10-25] MEDS: ASPIRIN 81 MG ENTERIC TABLET PO (13:55)
[2022-10-25] MEDS: VITAMIN B CMPLX/VIT C/FOLIC AC 1 CAPSULE 1 CAP PO (13:56)
[2022-10-25] MEDS: SILVERGEL (ELTA) 45 ML 1 APPLIC TOPICAL (13:56)
[2022-10-25 17:09] LABS: Glucose Point of Care 109 mg/dl (65-105)
[2022-10-25 21:11] LABS: Glucose Point of Care 250 mg/dl (65-105)
[2022-10-25] MEDS: INSULIN GLARGINE (*BKC) 100 UNITS/ML 11 UNITS SUB-Q (21:49)
[2022-10-26] VITALS (9 sets, daily range): BP systolic 120–135; BP diastolic 48–60; PULSE 61–91; RESP 14–18; TEMP 36.6–36.9; O2SAT 94–100
[2022-10-26] MEDS: ACETAMINOPHEN 325 MG TABLET 650 MG PO (00:24)
[2022-10-26] MEDS: SUCRALFATE 1 GM TABLET PO ×3 (06:05→16:37)
[2022-10-26] MEDS: carvediloL 6.25 MG TABLET PO (08:28)
[2022-10-26] MEDS: ATORVASTATIN 40 MG TABLET 80 MG PO (08:28)
[2022-10-26] MEDS: SEVELAMER CARBONATE 800 MG TABLET PO ×3 (08:29→17:35)
[2022-10-26] MEDS: TICAGRELOR 90 MG TABLET PO (08:29)
[2022-10-26] MEDS: VITAMIN B CMPLX/VIT C/FOLIC AC 1 CAPSULE 1 CAP PO (08:29)
[2022-10-26] MEDS: PANTOPRAZOLE 40 MG TABLET PO (08:29)
[2022-10-26] MEDS: SILVERGEL (ELTA) 45 ML 1 APPLIC TOPICAL (08:29)
[2022-10-26] MEDS: calcitrioL 0.25 MCG CAPSULE PO (08:29)
[2022-10-26] MEDS: ASPIRIN 81 MG ENTERIC TABLET PO (08:29)
[2022-10-26] MEDS: INSULIN ASPART (*BKC) 100 UNITS/ML 8 UNITS SUB-Q ×2 (08:32→17:34)
[2022-10-26 08:33] LABS: Glucose Point of Care 168 mg/dl (65-105)
--- NOTE | 2022-10-26 11:17 | P.PNNP_ITS ---
Progress Note: A&P Assessment and Plan (1) ESRD (end stage renal disease): Code(s): N18.6 - End stage renal disease Status: Acute Assessment and Plan: * HD daily x 5 days with last treatment yesterday * resume outpatient schedule on // next week * follow electrolytes, volume status, and clearance (2) Acute respiratory failure: Code(s): J96.00 - Acute respiratory failure, unspecified whether with hypoxia or hypercapnia Status: Acute Assessment and Plan: * due to #3 * clinically improving with interventions to date * follow respiratory status (3) Fluid overload: Code(s): E87.70 - Fluid overload, unspecified Status: Acute Assessment and Plan: * as noted on admission * s/p daily hemodialysis (Fri, , Fri, , and Friday) * approximately 8L negative since admission * given hypotension with dialysis yesterday, we may be at our limit with regard to fluid removal * follow volume status (4) Hypertension: Qualifiers: Hypertension type: unspecified Qualified Code(s): I10 - Essential (primary) hypertension Code(s): I10 - Essential (primary) hypertension Status: Chronic Assessment and Plan: * reasonable control at this time * follow trend of hemodynamics (5) Anemia: Code(s): D64.9 - Anemia, unspecified Status: Chronic Assessment and Plan: * due to ESRD * H/H at goal by last check * Epogen with HD * follow trend of H/H (6) Type 1 diabetes: Code(s): E10.9 - Type 1 diabetes mellitus without complications Status: Chronic Assessment and Plan: * follow accuhecks * glycemic control per hospitalists Will continue to follow. Subjective Date/time seen: 10/26/22 11:17 Interval history: Follow-up for end stage renal disease on hemodialysis and volume overload. Tolerated dialysis yesterday but fluid removal was limited due to intradialytic hypotension; overall, breathing/respiratory status has improved as well as volume status following daily dialysis (5 days in a row); no acute issues overnight or earlier this morning; does report some mild shortness of breath still. Exam Narrative: General: chronically ill appearing female in NAD Heart: normal S1 and S2; no rub Lungs: clear anteriorly but decreased at bases Abdomen: soft, nontender, nondistended, positive bowel sounds Extremities: no cyanosis or clubbing; trace -1+ edema in LLE; s/p right BKA Skin: warm and dry Objective Data Vital Signs Vital Signs: Vital Signs Temp Pulse Resp BP Pulse Ox O2 Del Method 10/26/22 08:00 62 10/26/22 08:28 61 10/26/22 04:00 88 10/26/22 00:00 65 10/26/22 05:43 98.3 F 87 18 135/55 L 94 10/25/22 22:05 Room Air 10/25/22 20:00 65 10/25/22 21:49 67 10/25/22 19:30 97.5 F L 67 18 114/54 L 100 10/25/22 16:00 89 10/25/22 14:35 98.4 F 90 18 120/49 L 99 Intake/Output Intake/Output: Intake & Output 10/23/22 10/24/22 10/25/22 10/26/22 23:59 23:59 23:59 23:59 Intake Total 1065 1080 1650 120 Output Total 3500 4020 1000 Balance -2430 -2946 650 120 Meds/Results Medications:
--- NOTE | 2022-10-26 11:17 | PM.PNNEP ---
Progress Note: A&P Assessment and Plan (1) ESRD (end stage renal disease): Code(s): N18.6 - End stage renal disease Status: Acute Assessment and Plan: HD daily x 5 days with last treatment yesterday resume outpatient schedule on // next week follow electrolytes, volume status, and clearance (2) Acute respiratory failure: Code(s): J96.00 - Acute respiratory failure, unspecified whether with hypoxia or hypercapnia Status: Acute Assessment and Plan: due to #3 clinically improving with interventions to date follow respiratory status (3) Fluid overload: Code(s): E87.70 - Fluid overload, unspecified Status: Acute Assessment and Plan: as noted on admission s/p daily hemodialysis (Fri, , Fri, , and Friday) approximately 8L negative since admission given hypotension with dialysis yesterday, we may be at our limit with regard to fluid removal follow volume status (4) Hypertension: Qualifiers: Hypertension type: unspecified Qualified Code(s): I10 - Essential (primary) hypertension Code(s): I10 - Essential (primary) hypertension Status: Chronic Assessment and Plan: reasonable control at this time follow trend of hemodynamics (5) Anemia: Code(s): D64.9 - Anemia, unspecified Status: Chronic Assessment and Plan: due to ESRD H/H at goal by last check Epogen with HD follow trend of H/H (6) Type 1 diabetes: Code(s): E10.9 - Type 1 diabetes mellitus without complications Status: Chronic Assessment and Plan: follow accuhecks glycemic control per hospitalists Will continue to follow. Subjective Date/time seen: 10/26/22 11:17 Interval history: Follow-up for end stage renal disease on hemodialysis and volume overload. Tolerated dialysis yesterday but fluid removal was limited due to intradialytic hypotension; overall, breathing/respiratory status has improved as well as volume status following daily dialysis (5 days in a row); no acute issues overnight or earlier this morning; does report some mild shortness of breath still. Exam Narrative: General: chronically ill appearing female in NAD Heart: normal S1 and S2; no rub Lungs: clear anteriorly but decreased at bases Abdomen: soft, nontender, nondistended, positive bowel sounds Extremities: no cyanosis or clubbing; trace -1+ edema in LLE; s/p right BKA Skin: warm and dry Objective Data Vital Signs Vital Signs: Vital Signs Temp Pulse Resp BP Pulse Ox O2 Del Method 10/26/22 08:00 62 10/26/22 08:28 61 10/26/22 04:00 88 10/26/22 00:00 65 10/26/22 05:43 98.3 F 87 18 135/55 L 94 10/25/22 22:05 Room Air 10/25/22 20:00 65 10/25/22 21:49 67 10/25/22 19:30 97.5 F L 67 18 114/54 L 100 10/25/22 16:00 89 10/25/22 14:35 98.4 F 90 18 120/49 L 99 Intake/Output Intake/Output: Intake & Output 10/23/22 10/24/22 10/25/22 10/26/22 23:59 23:59 23:59 23:59 Intake Total 1065 1080 1650 120 Output Total 3500 4020 1000 Balance -2435 -2940 650 120 Meds/Results Medications: Active Medications Generic Name Dose Route Start Last Admin Trade Name Petarq PRN Reason Stop Dose Admin Acetaminophen 650 mg 10/21/22 16:45 10/26/22 00:24 Acetaminophen 325 Mg Tablet PO 650 mg Q6H PRN Administration Mild Pain (1-3) or Fever Aspirin 81 mg 10/22/22 09:00 10/26/22 08:29 Aspirin 81 Mg Enteric Tablet PO 81 mg DAILY JOHNSON Administration Atorvastatin Calcium 80 mg 10/22/22 09:00 10/26/22 08:28 Atorvastatin 40 Mg Tablet PO 80 mg DAILY JOHNSON Administration Calcitriol 0.25 mcg 10/22/22 09:00 10/26/22 08:29 Calcitriol 0.25 Mcg Capsule PO 0.25 mcg QAM JOHNSON Administration Carvedilol 6.25 mg 10/21/22 21:00 10/26/22 08:28 Carvedilol 6.25 Mg Tablet PO 6.25 mg Q12H JOHNSON Administrat
[2022-10-26 12:32] LABS: Glucose Point of Care 88 mg/dl (65-105)
[2022-10-26 17:29] LABS: Glucose Point of Care 257 mg/dl (65-105)
[2022-10-26] MEDS: INSULIN ASPART (*BKC) 100 UNITS/ML SUB-Q (17:34)
--- NOTE | 2022-10-26 18:28 | PM.DS ---
DS: Admitting Diagnosis Discharge Date 10/26/2022 Admitting Diagnosis Volume overload due to end-stage renal disease DS: Discharge Diagnosis Discharge Diagnosis (1) Acute respiratory failure: Code(s): J96.00 - Acute respiratory failure, unspecified whether with hypoxia or hypercapnia Status: Acute (2) ESRD (end stage renal disease): Code(s): N18.6 - End stage renal disease Status: Acute (3) Type 1 diabetes: Code(s): E10.9 - Type 1 diabetes mellitus without complications Status: Chronic DS: Summary Hospital Course Reason for hospitalization: Dyspnea with edema Hospital Course: 47-year-old with end-stage renal disease on dialysis receives dialysis Friday she was sent to the emergency department by her physician when she complained of shortness of breath and swelling in her ankles. Chest x-ray showed small pleural effusion. She was edematous upon admission. With daily dialysis the edema and dyspnea resolved. By day of discharge she was independently ambulating not require oxygen and managing all ADLs without assistance. Blood sugars were ranging from the 80s to 250s without hypoglycemia. Time Spent with Patient Time attestation: Total time spent providing and/or coordinating discharge services: Exam Narrative: Alert and oriented to person place and time Neck without JVD Chest clear Heart regular Extremities without pitting edema Right BKA Tone and strength symmetric Cranial nerves symmetric to visual inspection DS: Data Data Completed and Pending Labs on day of discharge: Labs from last 24 hours 10/26/22 10/26/22 10/26/22 17:23 12:13 08:28 POC Capillary Glucose 257 H 88 168 H 10/25/22 21:06 POC Capillary Glucose 250 H Preliminary micro results at discharge 10/21/22 05:47 Blood Culture - Preliminary Blood 10/21/22 05:47 Blood Culture - Preliminary Blood Discharge Plan Discharge Consulting providers: Gregory Forbes Discharging Clinician: Haim Raya Patient Disposition: Home, Self-Care Activity: as tolerated Diet: diabetic and renal Stand Alone Forms: General Discharge Information Follow-up/Referrals: Gregory Forbes MD [Physician] - Call for Appointment Ochoa,Christiano Cartwright MD [Primary Care Provider] - Call for Appointment Discharge Medications: Continued carvedilol 6.25 mg tablet 6.25 mg PO Q12H Rx Instructions: must administer with a meal/food aspirin 81 mg tablet,delayed release (DR/EC) 81 mg PO DAILY Hold Instructions: Resume on 07/18/22. calcitriol [Rocaltrol] 0.25 mcg Capsule 0.25 mcg PO QAM 30 Days Qty: 30 0RF Renal Vitamin 0.8 mg Tablet 0.8 tablet PO DAILY pantoprazole 40 mg Tablet,Delayed Release (Dr/Ec) 40 mg PO Q12HR 30 Days Qty: 60 0RF metoclopramide HCl [Reglan] 10 mg tablet 10 mg PO ACHS PRN (Reason: nausea and vomiting) Qty: 30 0RF sucralfate [Carafate] 1 gram tablet 1 g PO ACHS 14 Days Qty: 56 0RF Brilinta 90 mg tablet 90 mg PO BID ergocalciferol (vitamin D2) 1,250 mcg (50,000 unit) capsule 50,000 unit PO WEEKLY sevelamer carbonate 800 mg tablet 800 mg PO TIDWM Rx Instructions: Take 1 tablet by mouth 3 times a day with meals and 1 with a snack. Max 4 tablets per day. insulin lispro [Humalog KwikPen Insulin] 100 unit/mL insulin pen 7 unit SUBCUT TIDWMEAL Rx Instructions: TID with meals insulin lispro [Humalog U-100 Insulin] 100 unit/mL Solution See Protocol subcut TIDWMEAL Protocol: Insulin Corrective Low-Dose Condition: glucose < 70 mg/dl Dose/Route: Follow Hypoglycemia Order Condition: glucose 70-200 mg/dl Dose/Route: No additional insulin Condition: glucose 201-250 mg/dl Dose/Route: 2 units sub-Q Condition: glucose 251-300 mg/dl Dose/Route: 3 units sub-Q Condition: glucose 301-350 mg/dl Dose/Route: 4 units sub-Q Condition: glucose 351-400 mg
== END 2022-10-26 21:10 | disposition home or self-care (01) | DRG 640 ==
LOC: ANHED 07:19 → ANH2MED 08:39
PROVIDERS: Chiropractor; Internal Medicine; Internal Medicine Nephrology; Admitting Provider Internal Medicine; Emergency Provider Emergency Medicine; PCP Internal Medicine; Visit Provider Internal Medicine
DX: E87.70 Fluid overload, unspecified (principal); J18.9 Pneumonia, unspecified organism; N18.6 End stage renal disease; E10.22 Type 1 diabetes mellitus with diabetic chronic kidney disease; I25.10 Atherosclerotic heart disease of native coronary artery without angina pectoris; F17.210 Nicotine dependence, cigarettes, uncomplicated; D63.1 Anemia in chronic kidney disease; G47.33 Obstructive sleep apnea (adult) (pediatric); R06.03 Acute respiratory distress; Z99.2 Dependence on renal dialysis; Z89.511 Acquired absence of right leg below knee; Z95.5 Presence of coronary angioplasty implant and graft; Z86.73 Personal history of transient ischemic attack (TIA), and cerebral infarction without residual deficits; Z20.822 Contact with and (suspected) exposure to COVID-19; Z79.899 Other long term (current) drug therapy
CPT/HCPCS: 36415; 71045; 74177; 80048; 80053; 80202; 81001; 82565; 82948; 83605; 83690; 83735; 84484; 85025; 85027; 85610; 85730; 86706; 87040; 87081; 87086; 87340; 87637; 93005; 96374; 96375; 99285; A9270; G0257; J0456; J0612; J0692; J1644; J1815; J1940; J3370; J7030; P9047; Q9967

== ENCOUNTER 2022-11-06 01:41 | Inpatient (IN) | payer MEDICARE, OTHER, MEDICAID, SELFPAY ==
[2022-11-06] VITALS (26 sets, daily range): BP systolic 94–143; BP diastolic 44–77; PULSE 58–88; RESP 16–24; TEMP 36–37.2; O2SAT 95–99; BMI 33.0
--- NOTE | ~2022-11-06 | XR_ITS ---
Left foot Technique: AP, oblique, and lateral views were obtained. Clinical History: Ulcer, wound COMPARISON: 07/18/2019 Findings: Patient is status post presumed amputations at the level of the distal third and fourth met atarsals. No acute fracture identified. No radiographic evidence for osteomyelitis. There is advanced degenerative change at the tarsometatarsal articulations. There is suspected lateral displacement of the second metatarsal, suggestive of underlying Lisfranc ligament disruption and probable developing Charcot foot. There is pes planus. There is mild diffuse soft tissue swelling. Impression: No radiographic evidence for osteomyelitis. Prior amputations of the third and fourth digits, as above. Probable Charcot foot, especially throughout the midfoot, with associated probable Lisfranc ligament disruption and lateral displacement of the second metatarsal. Pes planus deformity. Reviewed, dictated and finalized at [facility]. Impression: No radiographic evidence for osteomyelitis. Prior amputations of the third and fourth digits, as above. Probable Charcot foot, especially throughout the midfoot, with associated proba ble Lisfranc ligament disruption and lateral displacement of the second metatar kelton. Pes planus deformity.
--- NOTE | ~2022-11-06 | US_ITS ---
Duplex Sonography of the bilateral lower extremities: Indication: Swelling Sagittal and transverse B-mode images as well as color-flow imaging were performed on the right and l eft femoral and popliteal veins. B-mode examination was done without and with compression in the tra nsverse plane. There is good visualization of the bilateral common femoral, proximal profunda femora l, superficial femoral, greater saphenous, and popliteal veins. Normal flow was seen on color-flow im aging. Normal compressibility was demonstrated. Visualized calf veins are also patent. Impression: No evidence of deep vein thrombosis involving either lower extremity. Reviewed, dictated and finalized at location M. Impression: No evidence of deep vein thrombosis involving either lower extremit y.
--- NOTE | ~2022-11-06 | XR_ITS ---
Portable chest x-ray Comparison: 10/21/2022 Clinical History: Seizure Findings: Suggestion of hazy left basilar airspace disease. Right lung clear. Cardiomediastinal gail houette is stable, status post CABG. Bones and soft tissues are unremarkable. Impression: Suggestion of hazy left basilar airspace disease. Correlate for atelectasis or pneumonia. Reviewed, dictated and finalized at location . Impression: Suggestion of hazy left basilar airspace disease. Correlate for atelectasis or pneumonia.
--- NOTE | ~2022-11-06 | NM_ITS ---
EXAMINATION: NM brayan stress w perfusion DATE: 11/11/2022 11:27 INDICATION: Coronary atherosclerosis. Cardiomyopathy. TECHNIQUE: Rest images were obtained following intravenous administration of 10.5 mCi Tc99m tetrofosm in (Myoview). The patient was infused intravenously with Lexiscan (regadenoson). Then, 33.6 mCi Tc99m tetrofosmin (Myoview) was administered intravenously, and stress images were obtained. Data was sam nstructed into short axis and horizontal and vertical long axis SPECT images. Gated SPECT images were also obtained. COMPARISON: CT abdomen and pelvis 10/21/22 FINDINGS: There is a large, severe, fixed perfusion defect involving mid to basal anterolateral and i nferolateral wall of left ventricle, consistent with infarct. There is a moderate-sized, mild, revers ible perfusion defect involving mid to basal inferior and mid inferoseptal segments of left ventricle , consistent with ischemia. There is a small, mild, reversible perfusion defect involving mid anterio r segment of left ventricle, consistent with ischemia. There is no segmental wall motion abnormality. Left ventricular ejection fraction measures 54%. IMPRESSION: 1. Moderate-sized area of mild ischemia involving mid to basal inferior and mid inferoseptal segments of left ventricle. Increased activity below the diaphragm decreases sensitivity and specificity in t he inferior wall. 2. Small area of mild ischemia involving mid anterior segment of left ventricle. 3. Large area of severe infarct involving mid to basal anterolateral and inferolateral wall of left v entricle. 4. Normal left ventricular ejection fraction measuring 54%. Reviewed, dictated and finalized at location A. IMPRESSION: 1. Moderate-sized area of mild ischemia involving mid to basal inferior and mid inferoseptal segments of left ventricle. Increased activity below the diaphrag m decreases sensitivity and specificity in the inferior wall. 2. Small area of mild ischemia involving mid anterior segment of left ventricle . 3. Large area of severe infarct involving mid to basal anterolateral and infero lateral wall of left ventricle. 4. Normal left ventricular ejection fraction measuring 54%.
--- NOTE | ~2022-11-06 | CT_ITS ---
Non-contrast Head CT History: Seizure COMPARISON: 06/26/2022 Technique: Axial non-contrast imaging of the brain was performed. Dose reduction technique was used on this scan by utilizing automated exposure control and iterative reconstruction technique. The dose -length product (DLP) was 681.00 mGy-cm. Findings: There is no evidence of intracranial hemorrhage, mass lesion, or acute infarct. Brain par enchyma appears normal. The ventricles and subarachnoid spaces are normal in size. The calvarium ap pears normal. The visualized paranasal sinuses and mastoid air cells are clear. Impression: No significant abnormality seen. Reviewed, dictated and finalized at location . Impression: No significant abnormality seen.
--- NOTE | 2022-11-06 03:04 | ECG_ITS ---
Measurements Intervals [place] Rate: 77 P: 52 ME: 203 QRS: -13 QRSD: 150 T: 198 QT: 437 QTc: 497 Interpretive Statements SINUS RHYTHM IVCD, FEATURES OF BOTH RBBB AND LBBB BASELINE WANDER- V1 ABNORMAL ECG COMPARED TO ECG 10/21/2022 05:25:05 NO SIGNIFICANT CHANGES Electronically Signed On 11-06-2022 6:49:19 CDT by Misael Ahmadi D.O.
[2022-11-06 06:58] LABS: Alanine Aminotransferase 46 U/L (6-35); Albumin Level 4.9 g/dL (3.5-5.1); Alkaline Phosphatase 464 U/L (38-126); Anion Gap 16 mmol/L (8-16); Aspartate Amino Transferase 62 U/L (14-36); Blood Urea Nitrogen 53 mg/dL (7-17); Carbon Dioxide 33 mmol/L (22-30); Chloride 89 mmol/L (98-107); Estimated Glomerular Filt Rate 9; Glucose 394 mg/dL (65-110); Potassium 4.6 mmol/L (3.4-5.0); Sodium 138 mmol/L (137-145)
[2022-11-06 06:59] LABS: CRP 1.6 mg/dL (<1.0); Lactic Acid 2.2 mmol/L (0.7-2.0); Troponin I 0.641 ng/mL (0.000-0.034)
--- NOTE | 2022-11-06 07:07 | ED.SEIZURE ---
HPI - Seizure General Chief Complaint: Seizure Time Seen by Provider: 11/06/22 06:46 Source: patient, EMS, RN notes reviewed and old records reviewed Mode of arrival: EMS Limitations: other (poor historian) History of Present Illness HPI Narrative: This is a 47 year old female with history of DM, ESRD on dialysis, who presents for evaluation of possible seizure. EMS states that family was in the bathroom with patient when they reported possible seizure activity. They report patient was sitting on toilet when her eyes rolled back and they report seizure activity lasting less than a minute. On EMS, patient was not postictal. Patient states the last thing she remembers is her son yelling at her to wake up. Patient denies headache, chest pain, vomiting or fever. She does reports shortness of breath. She is also complaining of left foot pain due to a wound for 3 weeks. She states she has been seen at Wound care for her wound but it is getting worse. She reports drainage of green drainage. She gets dialysis MWF and she went yesterday. Related Data Home Medications Medication Instructions Recorded Confirmed aspirin 81 mg tablet,delayed 81 mg PO DAILY 12/20/20 11/06/22 release sevelamer carbonate 800 mg tablet 800 mg PO TIDWM 03/13/21 11/06/22 carvedilol 6.25 mg tablet 6.25 mg PO Q12H 02/20/22 11/06/22 insulin glargine 100 unit/mL (3 10 unit subcut HS 02/28/22 11/06/22 mL) subcutaneous pen (Lantus Solostar U-100 Insulin) insulin lispro 100 unit/mL 7 unit subcut TIDWMEAL 02/28/22 11/06/22 subcutaneous pen (Humalog KwikPen (U-100) Insulin) insulin lispro 100 unit/mL See Protocol subcut TIDWMEAL 02/28/22 11/06/22 subcutaneous solution (Humalog U-100 Insulin) vitamin B complex-vitamin C-folic 0.8 tablet PO DAILY 03/06/22 11/06/22 acid 0.8 mg tablet (Renal Vitamin) atorvastatin 80 mg tablet 80 mg PO DAILY 05/02/22 11/06/22 ergocalciferol (vitamin D2) 1,250 50,000 unit PO WEEKLY 09/27/22 11/06/22 mcg (50,000 unit) capsule ticagrelor 90 mg tablet (Brilinta) 90 mg PO BID 09/27/22 11/06/22 Allergies Allergy/AdvReac Type Severity Reaction Status Date / Time No Known Drug Allergies Allergy Unknown Verified 11/06/22 10:19 Review of Systems Constitutional: Constitutional: Denies weakness Cardiovascular: Cardiovascular: Denies syncope, Denies rapid heart rate, Denies irregular heart rhythm, Reports leg edema and Reports dyspnea Respiratory: Respiratory: Denies chest congestion, Denies hemoptysis, Denies excessive phlegm production and Reports dyspnea Gastrointestinal: Gastrointestinal: Denies abdominal pain, Denies hematochezia, Denies diarrhea, Reports nausea and Denies vomiting Genitourinary: Genitourinary: Denies hematuria and Denies dysuria Musculoskeletal: Musculoskeletal: Denies joint swelling, Denies loss of height and Denies muscle weakness Integumentary/Breasts: Skin/Breast: Reports skin ulcer Neurologic: Denies syncope, Denies focal weakness and Denies weakness [facility] Past Medical History Medical History Acute cholecystitis (~02/2021) Acute electrocardiogram changes Anasarca Anemia Cardiac arrest Cerebrovascular accident Small old lacunar infarct at the head of the right caudate nucleus. Chest pain Chiari I malformation Chronic osteomyelitis Status post toe amputations Chronic, continuous use of opioids Coffee ground emesis Congestive heart failure Coronary artery disease Status post stent to the right coronary artery in August 2020. End-stage renal disease on hemodialysis On dialysis since June 2019. Erosive esophagitis Erythropoietin deficiency anemia Esophagitis determined by endoscopy (12/2019) Gastroparesis due to DM Hyperlipidemia Hypokalemia Nausea & vomiting Pulmonary edema Renal osteodystrophy Surgical History Surgical History Amputation of toe Two on t
[2022-11-06 07:11] LABS: Basophils Percent Auto 0.5 % (0.2-1.2); Eosinophils Absolute Auto 0.1 K/mm3 (0-0.3); Hematocrit 38.4 % (37.0-47.0); Hemoglobin 12.4 g/dL (12.0-15.0); Immature Granulocyte Absolute 0.02 K/mm3 (0.00-0.031); Immature Granulocyte Percent A 0.3 % (0-0.5); Lymphocytes Absolute Auto 1.49 K/mm3 (0.9-3.2); Lymphocytes Percent Auto 19.5 % (18.3-44.2); Mean Corpuscular HGB Conc 32.3 g/dl (32-36); Mean Corpuscular Volume 102.1 fl (80-100); Mean Platelet Volume 10.7 fl (7.4-10.4); Monocytes Absolute Auto 0.4 K/mm3 (0.1-0.6); Neutrophils Absolute Auto 5.6 K/mm3 (1.3-6.7); Neutrophils Percent Auto 73.7 % (45.5-73.1); Platelet Count Result 129 k/mm3 (150-375); Red Blood Count 3.76 M/mm3 (4.2-5.4); Red Cell Distribution Width 15.9 % (11.5-14.5); White Blood Count 7.6 K/mm3 (4.5-10.0)
--- NOTE | 2022-11-06 07:12 | PC.NURSE ---
Assumed care of pt at this time, pt is alert and sitting at end of bed - refusing to sit back on stretcher. Per Xiao RN during bedside, pt will not stay back in bed. Pt on tele monitor w/ VSS. Discussed POC.
[2022-11-06 07:43] LABS: Erythrocyte Sedimentation Rate 20 mm/hr (0-20)
[2022-11-06] MEDS: PIPERACILLN/TAZ 3.375GM/NS50ML 3.375 GM/50 ML BAG IVPB (07:59)
--- NOTE | 2022-11-06 10:48 | ADMGEN ---
This patient, Pamela Bhat, was admitted to IMU Room 205-02 on 11/06/22 at 0833. Patient/family oriented to hospital policies and general routines including ID bracelet, bed and alarms, visiting hours, pain management, procedures, bathroom and other care routines, personal items, smoking policy, room service/diet, and visiting hours. Information on how to activate the Rapid Response Team has been discussed. Patient/Family are encouraged to report perceived risks to care and to ask questions if they do not understand what they are told or what they should do.
[2022-11-06] MEDS: GENTAMICIN SULFATE 0.1% OINT 15 GM TUBE 1 APPLIC TOPICAL (11:17)
[2022-11-06] MEDS: COLLAGENASE OINT 30 GM TUBE 1 APPLIC TOPICAL (11:17)
[2022-11-06 12:12] LABS: Glucose Point of Care 359 mg/dl (65-105)
[2022-11-06] MEDS: INSULIN ASPART (*BKC) 100 UNITS/ML SUB-Q ×2 (12:30→17:17)
[2022-11-06] MEDS: HYDROcodone/acetaminophen (*CRX) 5-325 MG TABLET 1 TAB PO (16:01)
--- NOTE | 2022-11-06 16:01 | PM.IMHP ---
H&P: HPI History of Present Illness Date/Time: 11/06/22 15:00 Chief Complaint: Possible seizure. Narrative: This is an unfortunate 46-year-old female with end-stage renal disease on hemodialysis, insulin-dependent diabetes, coronary artery disease, and other comorbidities who presented to the emergency department via EMS from home for evaluation of a possible seizure. The patient provides the following history; family members provide additional information with the patient's permission. Early this morning she was on the toilet when her eye suddenly rolled into the back of her head and she reportedly had seizure-like activity lasting less than 1 minute. Son called 911 and on EMS arrival she was alert and oriented. The patient remembers going to the bathroom to urinate, she did not need to have a bowel movement. She does not remember what happened thereafter however. She was brought to the ER for evaluation where she complained of pain in her left foot due to a wound that has been present for approximately 3 weeks. She has been seeing wound care but the wound is getting worse and is now draining green puss. She also complains of shortness of breath and reports that she is due for dialysis today. On exam she is markedly edematous and she states that she had 5 L of fluid taken off at dialysis on Friday; she denies that she has missed any dialysis days. She denies headache, fever, chills, sweats, cold and flu symptoms, chest pain, pleuritic pain, palpitations, cough, nausea, vomiting, diarrhea, and dysuria. She has no history of seizures. She denies recent change in medications. No significant alcohol use. In the ED: She was afebrile on arrival with stable vital signs. Labs were significant for a WBC count of 7.6, hemoglobin 12.4, hematocrit 38.4%, sodium 138, potassium 4.6, BUN 53, creatinine 5.10, glucose 394, lactic acid 2.2, AST 62, ALT 46, alkaline phosphatase 464, troponin 0.641, ESR 20, CRP 1.6. Brain CT showed no acute findings. Chest x-ray shows suggestion of hazy left basilar airspace disease, possible atelectasis or pneumonia. Left foot x-ray showed no radiographic evidence of osteomyelitis and probable Charcot foot. She was started on Zosyn for suspected diabetic wound infection and she has been admitted to the IMU for close monitoring given seizure versus syncope and elevated troponins. At the time my evaluation her only complaint is that of chronic back pain which is unchanged. Review of Systems Review of Systems: Twelve systems were reviewed and are negative except for as per HPI. [facility] Past Medical History Medical History (Updated 11/06/22 @ 22:49 by Dena Rodney PA-C) Acute cholecystitis (~02/2021) Acute electrocardiogram changes Anasarca Anemia Cardiac arrest Cerebrovascular accident Small old lacunar infarct at the head of the right caudate nucleus. Chest pain Chiari I malformation Chronic osteomyelitis Status post toe amputations Chronic, continuous use of opioids Congestive heart failure Coronary artery disease Status post stent to the right coronary artery in August 2020. End-stage renal disease on hemodialysis On dialysis since June 2019. Friday, Friday, Friday. patient of Dr. Forbes. Erosive esophagitis Erythropoietin deficiency anemia Esophagitis determined by endoscopy (12/2019) Gastroparesis due to DM Hyperlipidemia Insulin dependent diabetes mellitus Renal osteodystrophy Surgical History Surgical History (Updated 11/06/22 @ 16:06 by Dena Rodney PA-C) Amputation of toe Two on the left AV fistula Left forearm History of section, classical X2 History of coronary artery stent placement times 3 History of laparoscopic cholecystectomy (03/15/21) History of myringotomy History of myringotomy History of repair of rotator cuff History of right below knee amputation History of tonsillectomy and adenoidectomy History of tubal ligation Status post lateral meniscus repair
[2022-11-06] MEDS: PIPERACILLIN/TAZ 2.25G/NS 50ML 2.25 GM/50 ML BAG IVPB ×2 (16:05→23:37)
[2022-11-06 17:14] LABS: Glucose Point of Care 237 mg/dl (65-105)
[2022-11-06 17:16] LABS: Hepatitis B Surface Antigen Negative (Negative)
[2022-11-06 17:40] LABS: Hepatitis B Surface Anti Res Indeterminate
[2022-11-06 17:41] LABS: Hepatitis B Surface Antigen 0.15 S/C
--- NOTE | 2022-11-06 18:20 | PM.CNNEP ---
Assessment and Plan Assessment and plan (1) ESRD (end stage renal disease): Code(s): N18.6 - End stage renal disease Status: Chronic Assessment and Plan: HD today continue M/W/F dialysis schedule follow electrolytes, volume status, and clearance (2) Fluid overload: Qualifiers: Hypervolemia type: unspecified Qualified Code(s): E87.70 - Fluid overload, unspecified Code(s): E87.70 - Fluid overload, unspecified Status: Acute Assessment and Plan: quite apparent by physical exam plan DUF (dry ultrafiltration tomorrow) for further fluid removal repeat Echo ordered (3) Diabetic ulcer of left foot: Code(s): E11.621 - Type 2 diabetes mellitus with foot ulcer; L97.529 - Non-pressure chronic ulcer of other part of left foot with unspecified severity Status: Acute Assessment and Plan: follow by wound care as an outpatient no acute infection noted continue local wound care (4) Anemia: Code(s): D64.9 - Anemia, unspecified Status: Chronic Assessment and Plan: due to ESRD Epogen with HD follow trend of H/H (5) Insulin dependent diabetes mellitus: Status: Acute Assessment and Plan: follow accuchecks glycemic control per hospitalists I will continue to follow the patient with you while she remains hospitalized and make further recommendations during her hospital course. Thank you for allowing me to participate in care of this patient. History of Present Illness Reason for Consult Consult date: 11/06/22 Reason for consult: end stage renal disease Chief Complaint Chief complaint: syncope vs seizure,infected left foot ulcer History of Present Illness Narrative: The patient is a 46-year-old female with a past medical history as outlined below who presented to [facility] Emergency room for further evaluation of possible seizure activity. Earlier today, the patient was apparently seen on the toilet when her eyes slightly rolled into the back of her head and apparent seizure activity occurred for a approximately a minute. Her son called 911 and upon EMS arrival, the patient was back to her baseline mentation. The patient recalls going to the bathroom to urinate but then does not remember what happened afterwards. Given these events, she was taken to [facility] Emergency room for further assessment. By the time of arrival to the ER, the patient's mentation seemed to be back to baseline but she did have pain in her left foot but this is related to a festering wound has been present for the last several weeks. She reports that the wound has been getting worse and that is draining green like purulence material. She also complained of increasing shortness of breath although she is due for dialysis today. She notices increasing swelling edema in her lower extremities and mid abdomen and verifies that she did go to dialysis on Friday and had approximately 5 L of fluid off taken at that time. She gives no other symptoms with regard to headache, fevers, chills, nausea, vomiting, diaphoresis, dizziness, lightheadedness, diarrhea, dysuria, or palpitations. She was otherwise hemodynamically stable on arrival to the ER and routine blood test demonstrated labs consistent with her known history of end-stage renal disease without any critical electrolyte abnormalities. Her CT scan of her brain showed no acute findings and her chest x-ray showed a hazy left basilar airspace disease probable atelectasis versus pneumonia. Her left foot x-ray showed no evidence of osteomyelitis or fracture but was consistent with probable Charcot foot. after appropriate cultures were obtained, she was started on IV antibiotic therapy for her suspected diabetic foot wound /infection admitted to the hospital for further evaluation and treatment. Renal consultation was requested due to her end-stage renal disease. The patient normally follows with
[2022-11-06] MEDS: ACETAMINOPHEN 325 MG TABLET 650 MG PO (18:39)
[2022-11-06 22:06] LABS: Glucose Point of Care 99 mg/dl (65-105)
[2022-11-06] MEDS: METOCLOPRAMIDE HCL 10 MG TABLET PO (22:35)
[2022-11-06] MEDS: SUCRALFATE 1 GM TABLET PO (22:36)
[2022-11-06] MEDS: carvediloL 6.25 MG TABLET PO (22:36)
[2022-11-06] MEDS: PANTOPRAZOLE 40 MG TABLET PO (22:36)
[2022-11-06] MEDS: SEVELAMER CARBONATE 800 MG TABLET PO (22:36)
[2022-11-06] MEDS: TICAGRELOR 90 MG TABLET PO (22:36)
[2022-11-07] VITALS (31 sets, daily range): BP systolic 107–159; BP diastolic 49–73; PULSE 67–99; RESP 16–22; TEMP 35.7–36.9; O2SAT 95–100
[2022-11-07 00:40] LABS: Lactic Acid Reflex 1.6 mmol/L (0.7-2.0)
[2022-11-07 04:12] LABS: Hematocrit 32.6 % (37.0-47.0); Hemoglobin 10.4 g/dL (12.0-15.0); Mean Corpuscular HGB Conc 31.9 g/dl (32-36); Mean Corpuscular Hemoglobin 32.4 pg (26-34); Mean Corpuscular Volume 101.6 fl (80-100); Mean Platelet Volume 10.5 fl (7.4-10.4); Platelet Count Result 105 k/mm3 (150-375); Red Blood Count 3.21 M/mm3 (4.2-5.4); Red Cell Distribution Width 15.9 % (11.5-14.5)
[2022-11-07 04:32] LABS: Alanine Aminotransferase 39 U/L (6-35); Alkaline Phosphatase 367 U/L (38-126); Anion Gap 12 mmol/L (8-16); Aspartate Amino Transferase 46 U/L (14-36); Bilirubin,Total 1.2 mg/dL (0.2-1.3); Blood Urea Nitrogen 29 mg/dL (7-17); Calcium 9.2 mg/dL (8.4-10.2); Carbon Dioxide 31 mmol/L (22-30); Chloride 95 mmol/L (98-107); Estimated CRCL calculation 21 ml/min; Estimated Glomerular Filt Rate 15; Glucose 126 mg/dL (65-110); Sodium 138 mmol/L (137-145)
[2022-11-07 04:38] LABS: Troponin I 0.416 ng/mL (0.000-0.034)
[2022-11-07] MEDS: SUCRALFATE 1 GM TABLET PO ×3 (05:46→21:15)
[2022-11-07 07:58] LABS: Glucose Point of Care 121 mg/dl (65-105)
[2022-11-07] MEDS: PIPERACILLIN/TAZ 2.25G/NS 50ML 2.25 GM/50 ML BAG IVPB ×2 (08:50→17:34)
[2022-11-07] MEDS: SEVELAMER CARBONATE 800 MG TABLET PO ×3 (08:51→21:14)
[2022-11-07] MEDS: TICAGRELOR 90 MG TABLET PO ×2 (08:51→21:15)
[2022-11-07] MEDS: ASPIRIN 81 MG ENTERIC TABLET PO (08:51)
[2022-11-07] MEDS: VITAMIN B CMPLX/VIT C/FOLIC AC 1 CAPSULE 1 CAP PO (08:51)
[2022-11-07] MEDS: PANTOPRAZOLE 40 MG TABLET PO ×2 (08:51→21:15)
[2022-11-07] MEDS: calcitrioL 0.25 MCG CAPSULE PO (08:51)
[2022-11-07 17:09] LABS: Glucose Point of Care 332 mg/dl (65-105)
--- NOTE | 2022-11-07 17:16 | PM.PNNEP ---
Progress Note: A&P Assessment and Plan (1) ESRD (end stage renal disease): Code(s): N18.6 - End stage renal disease Status: Chronic Assessment and Plan: HD tomorrow continue M/W/F dialysis schedule follow electrolytes, volume status, and clearance (2) Fluid overload: Qualifiers: Hypervolemia type: unspecified Qualified Code(s): E87.70 - Fluid overload, unspecified Code(s): E87.70 - Fluid overload, unspecified Status: Acute Assessment and Plan: quite apparent by physical exam DUF (dry ultrafiltration) today for further fluid removal repeat Echo ordered (3) Diabetic ulcer of left foot: Code(s): E11.621 - Type 2 diabetes mellitus with foot ulcer; L97.529 - Non-pressure chronic ulcer of other part of left foot with unspecified severity Status: Acute Assessment and Plan: follow by wound care as an outpatient no acute infection noted continue local wound care (4) Anemia: Code(s): D64.9 - Anemia, unspecified Status: Chronic Assessment and Plan: due to ESRD Epogen with HD follow trend of H/H (5) Insulin dependent diabetes mellitus: Status: Acute Assessment and Plan: follow accuchecks glycemic control per hospitalists Will continue to follow. Subjective Date/time seen: 11/07/22 12:02 Interval history: Follow-up for end stage renal disease on hemodialysis and volume overload. Tolerated dialysis yesterday but fluid removal was limited due to intradialytic hypotension; tolerating dry ultrafiltration today (seen on DUF at 11:50AM) and getting better fluid removal since her blood pressure seems to be doing better; breathing seems to be doing better also; no other apparent issues/events overnight or earlier this morning. Exam Narrative: General: chronically ill appearing female in NAD Heart: normal S1 and S2; no rub Lungs: clear anteriorly but decreased at bases Abdomen: soft, nontender, nondistended, positive bowel sounds Extremities: no cyanosis or clubbing; 3+ edema in LLE; s/p right BKA Skin: warm and dry Objective Data Vital Signs Vital Signs: Vital Signs Temp Pulse Resp BP Pulse Ox O2 Del Method O2 Flow Rate 11/07/22 11:40 94 139/62 11/07/22 11:20 93 131/61 11/07/22 11:00 92 126/64 11/07/22 10:40 91 127/62 11/07/22 10:20 88 115/57 L 11/07/22 10:13 87 131/67 11/07/22 10:00 92 11/07/22 08:00 90 11/07/22 10:14 2 11/07/22 09:59 98.4 F 89 20 116/62 95 11/07/22 09:52 88 126/64 11/07/22 09:51 97.0 F L 89 18 127/56 L 98 11/07/22 09:41 88 20 95 Nasal Cannula 2 11/07/22 08:14 96.2 F L 87 22 H 135/55 L 97 11/07/22 06:00 87 11/07/22 04:00 97.9 F 86 18 107/49 L 98 11/07/22 04:00 85 16 98 Nasal Cannula 2 11/07/22 04:00 85 11/07/22 01:51 86 11/07/22 00:00 97.7 F 87 16 107/63 98 11/06/22 23:46 88 16 96 Nasal Cannula 2 11/06/22 23:46 88 11/06/22 22:00 69 11/06/22 22:00 69 16 96 Nasal Cannula 2 11/06/22 22:00 97.7 F 60 16 109/58 L 96 11/06/22 22:36 69 11/06/22 21:25 98.9 F 59 L 20 117/70 11/06/22 21:16 58 L 117/65 11/06/22 21:00 60 111/60 11/06/22 20:40 59 L 112/66 11/06/22 20:20 59 L 114/61 11/06/22 20:00 74 94/60 L 11/06/22 19:40 58 L 101/53 L 11/06/22 19:20 58 L 102/57 L 11/06/22 19:00 59 L 100/55 L 11/06/22 18:40 60 101/57 L 11/06/22 18:20 62 98/55 L 11/06/22 18:00 68 102/47 L 11/06/22 18:00 66 Intake/Output Intake/Output: Intake & Output 11/04/22 11/05/22 11/06/22 11/07/22 23:59 23:59 23:59 23:59 Intake Total 460 410 Output Total 9438 4000 Poqlgmt [id number] Meds/Results Medications: Active Medications Generic Name Dose Route Start [place]
[2022-11-07] MEDS: INSULIN ASPART (*BKC) 100 UNITS/ML SUB-Q (17:34)
[2022-11-07] MEDS: GENTAMICIN SULFATE 0.1% OINT 15 GM TUBE 1 APPLIC TOPICAL (17:35)
[2022-11-07] MEDS: COLLAGENASE OINT 30 GM TUBE 1 APPLIC TOPICAL (17:35)
--- NOTE | 2022-11-07 18:20 | WPDPN ---
Progress Note: A&P Assessment and Plan (1) Syncope: Code(s): R55 - Syncope and collapse Status: Acute Assessment and Plan: Patient likely at a syncopal episode on the toilet today. Seizure seems less likely as she was not postictal, incontinent, and there was no evidence of tongue bite. Furthermore she has no history of seizures. Lactic acid level was minimally elevated but may have been related to lab draw technique. Monitor orthostatic vital signs. 11/07/2022 interval history: Patient came to emergency department with concern was seizure however upon arrival of EMS and while at the Emergency department patient was fully oriented and not postictal patient was admitted admitted for further evaluate and observe the patient, patient also has elevated tropes most likely secondary to end-stage renal disease on hemodialysis however to further evaluate cardiac echo is ordered, patient also has wound on her right foot and patient will be seen wound nurse, patient with a end-stage renal disease on hemodialysis will be seen her home office claim specialist and will have a scheduled dialysis will continue to monitor. (2) Fluid overload: Qualifiers: Hypervolemia type: unspecified Qualified Code(s): E87.70 - Fluid overload, unspecified Code(s): E87.70 - Fluid overload, unspecified Status: Acute Assessment and Plan: She is markedly edematous, much more than I have ever seen her. She states compliance with dialysis. Unsure if she is compliant with fluid restriction. Nephrology consulted for dialysis which she may need for several days to remove excess fluid. Echocardiogram pending. (3) Diabetic ulcer of left foot: Code(s): E11.621 - Type 2 diabetes mellitus with foot ulcer; L97.529 - Non-pressure chronic ulcer of other part of left foot with unspecified severity Status: Acute Assessment and Plan: Followed by wound care [facility]. Wound nurse has been consulted and recommends continuing gentamicin ointment and Santyl. No evidence of acute infection at this time. (4) Elevated troponin: Code(s): R77.8 - Other specified abnormalities of plasma proteins Status: Acute Assessment and Plan: She is not having any chest pain whatsoever. Will continue to trend to peak, however. EKG shows no acute ST segment elevations or depressions. (5) Congestive heart failure: Code(s): I50.9 - Heart failure, unspecified Status: Acute Assessment and Plan: Echocardiogram in May 2022 showed moderate LV enlargement with systolic dysfunction EF estimated 35 to 40%, posterior segment akinesis, and grade 2 diastolic dysfunction. Repeat echocardiogram pending to rule out worsening EF as the cause of her marked edema. (6) Elevated LFTs: Code(s): R79.89 - Other specified abnormal findings of blood chemistry Status: Acute Assessment and Plan: Abdominal exam is benign. May very well be related to congestion from fluid overload. Repeat in a.m. (7) Insulin dependent diabetes mellitus: Status: Acute Assessment and Plan: Continue basal insulin. Initiate sliding scale insulin, Accu-Cheks, and hypoglycemic protocol. Check A1c. (8) End-stage renal disease on hemodialysis: Code(s): N18.6 - End stage renal disease; Z99.2 - Dependence on renal dialysis Status: Chronic Assessment and Plan: Nephrology consulted for hemodialysis. She is markedly edematous, reportedly had 5 L of fluid removed on Friday, and she denies missing dialysis recently. Unclear why she is holding on to such fluid, perhaps she is not following a fluid restriction diet. Lower extremity venous Doppler ultrasounds ordered to rule out DVTs. Medical decision making narrative ? History obtained from: Patient. ? History from independent sources: Family members provide some history with the patient's permission. ? External chart review: Previous visits reviewed. ?
[2022-11-07 20:03] LABS: Glucose Point of Care 432 mg/dl (65-105)
[2022-11-07] MEDS: carvediloL 6.25 MG TABLET PO (21:14)
[2022-11-07] MEDS: INSULIN GLARGINE (*BKC) 100 UNITS/ML 10 UNITS SUB-Q (21:16)
[2022-11-08] VITALS (33 sets, daily range): BP systolic 110–146; BP diastolic 50–86; PULSE 62–90; RESP 15–20; TEMP 35.6–36.6; O2SAT 94–100
[2022-11-08] MEDS: PIPERACILLIN/TAZ 2.25G/NS 50ML 2.25 GM/50 ML BAG IVPB ×2 (00:20→10:05)
[2022-11-08] MEDS: HYDROcodone/acetaminophen (*CRX) 5-325 MG TABLET 1 TAB PO ×3 (00:46→18:14)
[2022-11-08 04:15] LABS: Troponin I 0.479 ng/mL (0.000-0.034)
[2022-11-08 04:22] LABS: Hematocrit 37.1 % (37.0-47.0); Hemoglobin 11.7 g/dL (12.0-15.0); Mean Corpuscular HGB Conc 31.5 g/dl (32-36); Mean Corpuscular Hemoglobin 32.1 pg (26-34); Mean Corpuscular Volume 101.9 fl (80-100); Mean Platelet Volume 11.4 fl (7.4-10.4); Platelet Count Result 113 k/mm3 (150-375); Red Blood Count 3.64 M/mm3 (4.2-5.4); White Blood Count 6.6 K/mm3 (4.5-10.0)
[2022-11-08 04:36] LABS: Albumin Level 4.4 g/dL (3.5-5.1); Anion Gap 15 mmol/L (8-16); Blood Urea Nitrogen 42 mg/dL (7-17); Calcium 9.5 mg/dL (8.4-10.2); Carbon Dioxide 29 mmol/L (22-30); Chloride 93 mmol/L (98-107); Estimated CRCL calculation 16 ml/min; Estimated Glomerular Filt Rate 10; Glucose 331 mg/dL (65-110); Magnesium 2.2 mg/dL (1.6-2.3); Phosphorus 5.9 mg/dL (2.5-4.5); Potassium 4.6 mmol/L (3.4-5.0); Sodium 137 mmol/L (137-145)
[2022-11-08] MEDS: SUCRALFATE 1 GM TABLET PO ×4 (06:23→21:06)
[2022-11-08 08:33] LABS: Glucose Point of Care 374 mg/dl (65-105)
[2022-11-08 08:52] LABS: Vancomycin Random 19.7 ug/mL (10-20)
[2022-11-08] MEDS: TICAGRELOR 90 MG TABLET PO ×2 (10:04→21:06)
[2022-11-08] MEDS: carvediloL 6.25 MG TABLET PO ×2 (10:04→21:05)
[2022-11-08] MEDS: VITAMIN B CMPLX/VIT C/FOLIC AC 1 CAPSULE 1 CAP PO (10:04)
[2022-11-08] MEDS: calcitrioL 0.25 MCG CAPSULE PO (10:05)
[2022-11-08] MEDS: PANTOPRAZOLE 40 MG TABLET PO ×2 (10:05→21:07)
[2022-11-08] MEDS: ASPIRIN 81 MG ENTERIC TABLET PO (10:05)
[2022-11-08] MEDS: SEVELAMER CARBONATE 800 MG TABLET PO ×4 (10:05→21:07)
[2022-11-08] MEDS: INSULIN ASPART (*BKC) 100 UNITS/ML SUB-Q ×2 (10:06→12:48)
[2022-11-08 11:49] LABS: Glucose Point of Care 479 mg/dl (65-105)
[2022-11-08] MEDS: INSULIN GLARGINE (*BKC) 100 UNITS/ML 10 UNITS SUB-Q ×2 (12:47→21:08)
--- NOTE | 2022-11-08 14:08 | PM.PNNEP ---
Progress Note: A&P Assessment and Plan (1) ESRD (end stage renal disease): Code(s): N18.6 - End stage renal disease Status: Chronic Assessment and Plan: HD today continue M/W/F dialysis schedule follow electrolytes, volume status, and clearance (2) Fluid overload: Qualifiers: Hypervolemia type: unspecified Qualified Code(s): E87.70 - Fluid overload, unspecified Code(s): E87.70 - Fluid overload, unspecified Status: Acute Assessment and Plan: quite apparent by physical exam on admission DUF (dry ultrafiltration) yesterday for further fluid removal push fluid removal with HD as well follow-up on pending Echo (3) Bacteremia: Code(s): R78.81 - Bacteremia Status: Acute Assessment and Plan: positive blood culture noted on antibiotic therapy follow identification/sensitivities of organism follow repeat cultures source??? (4) Diabetic ulcer of left foot: Code(s): E11.621 - Type 2 diabetes mellitus with foot ulcer; L97.529 - Non-pressure chronic ulcer of other part of left foot with unspecified severity Status: Acute Assessment and Plan: follow by wound care as an outpatient no acute infection noted continue local wound care (5) Anemia: Code(s): D64.9 - Anemia, unspecified Status: Chronic Assessment and Plan: due to ESRD Epogen with HD follow trend of H/H (6) Insulin dependent diabetes mellitus: Status: Acute Assessment and Plan: follow accuchecks glycemic control per hospitalists Will continue to follow. Subjective Date/time seen: 11/08/22 14:08 Interval history: Follow-up for end stage renal disease on hemodialysis and volume overload. Tolerated DUF session yesterday with 5L fluid removal; tolerating dialysis treatment currently without any issue or problems (seen on HD at 2:00PM); swelling/edema in lower extremities is better as is her breathing/respiratory status; no other acute complaints voiced; no events overnight or earlier this AM. Exam Narrative: General: chronically ill appearing female in NAD Heart: normal S1 and S2; no rub Lungs: clear anteriorly but decreased at bases Abdomen: soft, nontender, nondistended, positive bowel sounds Extremities: no cyanosis or clubbing; 1 - 2+ edema in LLE; s/p right BKA Skin: warm and intact Objective Data Vital Signs Vital Signs: Vital Signs Temp Pulse Resp BP Pulse Ox O2 Del Method O2 Flow Rate 11/08/22 14:00 85 146/73 H 11/08/22 13:45 85 129/72 11/08/22 13:15 97.4 F L 87 18 134/74 11/08/22 14:00 86 11/08/22 12:00 64 11/08/22 12:00 Room Air 11/08/22 11:58 96.8 F L 62 20 127/86 96 11/08/22 08:00 Room Air 11/08/22 10:00 63 11/08/22 08:00 65 11/08/22 09:16 72 128/68 11/08/22 09:14 96.1 F L 67 20 131/66 97 11/08/22 08:37 96.1 F L 67 20 131/66 97 11/08/22 06:00 70 11/08/22 04:00 97.8 F 62 16 118/59 L 100 11/08/22 04:00 63 15 95 CPAP 11/08/22 04:00 63 11/08/22 01:42 68 11/08/22 00:46 115/66 11/08/22 00:46 124/50 L 11/08/22 00:00 97.8 F 67 18 124/66 11/08/22 00:27 15 95 CPAP 11/07/22 23:34 74 18 100 Nasal Cannula 2 11/07/22 23:34 71 11/07/22 22:00 76 11/07/22 20:00 74 18 100 Nasal Cannula 2 11/07/22 20:00 98.2 F 74 18 140/58 L 100 11/07/22 20:00 74 11/07/22 21:14 78 11/07/22 20:00 98.2 F 72 18 140/58 L 100 11/07/22 18:00 73 Intake/Output Intake/Output: Intake & Output 11/05/22 11/06/22 11/07/22 11/08/22 23:59 23:59 23:59 23:59 Intake Total 460 1572 1700 Output Total 2389 4200 Balance -456 -3582 1709 Meds/Results Medications: Active Medications Generic Name Dose Route Start Last Admin Trade Name Freq PRN Reason St
--- NOTE | 2022-11-08 17:17 | WPDPN ---
Progress Note: A&P Assessment and Plan (1) Syncope: Code(s): R55 - Syncope and collapse Status: Acute Assessment and Plan: Patient likely at a syncopal episode on the toilet today. Seizure seems less likely as she was not postictal, incontinent, and there was no evidence of tongue bite. Furthermore she has no history of seizures. Lactic acid level was minimally elevated but may have been related to lab draw technique. Monitor orthostatic vital signs. 11/08/2022 interval history: Patient came to emergency department with concern with seizure however upon arrival of EMS and while at the Emergency department patient was fully oriented and not postictal patient was admitted admitted for further evaluate and observe the patient, patient also has elevated tropes most likely secondary to end-stage renal disease on hemodialysis however to further evaluate cardiac echo which showed reduced EF of 25% compared to 40% on May of 2022, will consult oven roaster for further recommendation, patient also has wound on her right foot and patient will be seen wound nurse, both bottles of blood cultures are growing g positive cocci and cluster will follow-up under identification and sensitivity, patient is being treated vancomycin and Zosyn, patient with a end-stage renal disease on hemodialysis will be seen her spiral winder and will have a scheduled dialysis will continue to monitor. (2) Fluid overload: Qualifiers: Hypervolemia type: unspecified Qualified Code(s): E87.70 - Fluid overload, unspecified Code(s): E87.70 - Fluid overload, unspecified Status: Acute Assessment and Plan: She is markedly edematous, much more than I have ever seen her. She states compliance with dialysis. Unsure if she is compliant with fluid restriction. Nephrology consulted for dialysis which she may need for several days to remove excess fluid. Echocardiogram pending. (3) Diabetic ulcer of left foot: Code(s): E11.621 - Type 2 diabetes mellitus with foot ulcer; L97.529 - Non-pressure chronic ulcer of other part of left foot with unspecified severity Status: Acute Assessment and Plan: Followed by wound care [facility]. Wound nurse has been consulted and recommends continuing gentamicin ointment and Santyl. No evidence of acute infection at this time. (4) Elevated troponin: Code(s): R77.8 - Other specified abnormalities of plasma proteins Status: Acute Assessment and Plan: She is not having any chest pain whatsoever. Will continue to trend to peak, however. EKG shows no acute ST segment elevations or depressions. (5) Congestive heart failure: Code(s): I50.9 - Heart failure, unspecified Status: Acute Assessment and Plan: Echocardiogram in May 2022 showed moderate LV enlargement with systolic dysfunction EF estimated 35 to 40%, posterior segment akinesis, and grade 2 diastolic dysfunction. Repeat echocardiogram pending to rule out worsening EF as the cause of her marked edema. (6) Elevated LFTs: Code(s): R79.89 - Other specified abnormal findings of blood chemistry Status: Acute Assessment and Plan: Abdominal exam is benign. May very well be related to congestion from fluid overload. Repeat in a.m. (7) Insulin dependent diabetes mellitus: Status: Acute Assessment and Plan: Continue basal insulin. Initiate sliding scale insulin, Accu-Cheks, and hypoglycemic protocol. Check A1c. (8) End-stage renal disease on hemodialysis: Code(s): N18.6 - End stage renal disease; Z99.2 - Dependence on renal dialysis Status: Chronic Assessment and Plan: Nephrology consulted for hemodialysis. She is markedly edematous, reportedly had 5 L of fluid removed on Friday, and she denies missing dialysis recently. Unclear why she is holding on to such fluid, perhaps she is not following a fluid restriction diet. Lower extrem
[2022-11-08] MEDS: COLLAGENASE OINT 30 GM TUBE 1 APPLIC TOPICAL (18:00)
[2022-11-08] MEDS: GENTAMICIN SULFATE 0.1% OINT 15 GM TUBE 1 APPLIC TOPICAL (18:00)
[2022-11-08] MEDS: VANCOMYCIN 750 MG/NS 250 ML 750 MG/250 ML BAG 250 MG IVPB (18:03)
--- NOTE | 2022-11-08 18:22 | ECHO_ITS ---
Patient Info Name: Pamela Bhat Age: 47 years : 1975 Gender: Female Ht: 65 in Wt: 198 lbs BSA: 2.06 m2 HR: 87 bpm BP: 107 / 49 mmHg Heart Rhythm: Sinus Rhythm Technical Quality: Fair Exam Date: 11/08/2022 7:42 AM Exam Location: [facility] Card Pulmonary Patient Status: Inpatient Admit Date: 11/07/2022 Staff Ordering Physician: Dena Rodney PA-C [place]ppers[place] Helper: Anette Ashby RDCS Attending Provider: Marc Aguilar MD Referring Physician: Rashaun VAZQUEZ; Exam Type: CA echo doppler color flow Study Info Indications - chf, increasing edema Complete two-dimensional, color flow and Doppler transthoracic echocardiogram is performed. Summary 1. Complete two-dimensional, color flow and Doppler transthoracic echocardiogram is performed. 2. Left ventricular enlargement with significantly reduced systolic function, posterior segment appears to be akinetic. 3. Left ventricular basal segments appear to be more hypodynamic than the apex. 4. Severe left atrial enlargement. 5. Mildly sclerotic aortic valve which is not stenotic. 6. Right ventricular enlargement with reduced RV function. 7. Compared with 06/26/2022 LV systolic function appears to be worse and right ventricle appears depressed. Left Ventricle Left ventricular chamber dimension is moderately enlarged. Left ventricular systolic function is severely reduced, estimated at 25-30%. The left ventricular diastolic function is grade II diastolic dysfunction. Right Ventricle Right ventricular chamber dimension is mildly enlarged. Right ventricular systolic function is reduced. Left Atria Left atrial chamber dimension is severely enlarged. Right Atria Right atrial chamber dimension is mildly enlarged. Aortic Valve The aortic valve is trileaflet. There is mild aortic valve sclerosis. There is no aortic valve stenosis. Pulmonic Valve The pulmonic valve is normal. Mitral Valve The mitral valve has normal leaflets. There is mild mitral valve regurgitation. Tricuspid Valve The tricuspid valve leaflets are normal. There is mild tricuspid valve regurgitation. Pericardium/Pleural The pericardium appears normal. Aorta The aortic root size at the sinus of Valsalva is normal. Left Ventricular Outflow Tract Name Value Normal LVOT 2D LVOT Diameter 2.0 cm LVOT Doppler LVOT Peak Gradient 3 mmHg LVOT Mean Gradient 1 mmHg LVOT VTI 17 cm LVOT VTI/AV VTI Ratio 0.6 LVOT Stroke Volume 52 ml LVOT CO 3.3 l/min LVOT CI 1.6 l/min/m2 Pulmonic Valve Name Value Normal RVOT Doppler RVOT Peak Gradient 1 mmHg PV Doppler PV Peak Gradient 2 mmHg Mitral Valve
[2022-11-08 19:24] LABS: Glucose Point of Care 150 mg/dl (65-105)
[2022-11-08 19:41] LABS: Glucose Point of Care 134 mg/dl (65-105)
[2022-11-09] VITALS (23 sets, daily range): BP systolic 98–138; BP diastolic 54–79; PULSE 60–92; RESP 15–21; TEMP 35.6–36.5; O2SAT 94–98
[2022-11-09] MEDS: HYDROcodone/acetaminophen (*CRX) 5-325 MG TABLET 1 TAB PO ×2 (00:40→23:35)
[2022-11-09] MEDS: PIPERACILLIN/TAZ 2.25G/NS 50ML 2.25 GM/50 ML BAG IVPB ×4 (00:40→23:36)
[2022-11-09 04:38] LABS: Hematocrit 35.4 % (37.0-47.0); Hemoglobin 11.3 g/dL (12.0-15.0); Immature Platelet Fraction Pct 4.7 % (0.9-11.2); Mean Corpuscular HGB Conc 31.9 g/dl (32-36); Mean Corpuscular Hemoglobin 32.4 pg (26-34); Mean Corpuscular Volume 101.4 fl (80-100); Mean Platelet Volume 10.6 fl (7.4-10.4); Platelet Count Result 101 k/mm3 (150-375); Red Blood Count 3.49 M/mm3 (4.2-5.4); Red Cell Distribution Width 15.9 % (11.5-14.5); White Blood Count 5.6 K/mm3 (4.5-10.0)
[2022-11-09 04:48] LABS: Anion Gap 9 mmol/L (8-16); Blood Urea Nitrogen 30 mg/dL (7-17); Calcium 9.2 mg/dL (8.4-10.2); Carbon Dioxide 30 mmol/L (22-30); Chloride 97 mmol/L (98-107); Estimated CRCL calculation 19 ml/min; Estimated Glomerular Filt Rate 13; Glucose 300 mg/dL (65-110); Phosphorus 4.9 mg/dL (2.5-4.5); Potassium 4.4 mmol/L (3.4-5.0); Sodium 136 mmol/L (137-145)
[2022-11-09] MEDS: SUCRALFATE 1 GM TABLET PO ×3 (06:09→20:35)
--- NOTE | 2022-11-09 07:51 | PM.CNCAR ---
Assessment and Plan Assessment and plan (1) Syncope: Code(s): R55 - Syncope and collapse Status: Acute Assessment and Plan: Patient admitted with a syncopal episode and brief seizure-like activity but she was not postictal so at this was likely not a seizure. No low blood pressures have been detected here. In view of her severe left ventricular dysfunction, she is at risk of malignant arrhythmias and that may have been the etiology. She is at risk of sudden cardiac based on her EF and history. --keep on telemetry --will discuss further with the patient (not a good time for discussion at the moment; she is very uncomfortable with her bleeding toenail which likely will need to be removed), will need an electrophysiology consultation. --Discharge w/ [facility] if pt amenable --may need an ICD, but cannot have one implanted while infected; also at a higher risk than usual of device-related infection because she is on dialysis. (Perhaps she could get a leadless ICD, if electrophysiology feels one is indicated.) --Continue carvedilol (2) Cardiomyopathy: Code(s): I42.9 - Cardiomyopathy, unspecified Status: Acute Assessment and Plan: One myopathy; the patient's ejection fraction varies from 30% to 50%, but the echo this admission showed severe left ventricular dysfunction, EF now 25-30%. Does have volume overload but pulmonary congestion. --increase carvedilol to 12.5 mg BID, titrate dose as blood pressure tolerates --add losartan if okay with Dr. Vizcaino --likely cannot use an SGLT 2 inhibitor or spironolactone in view of her end-stage renal disease (3) Coronary artery disease: Code(s): I25.10 - Atherosclerotic heart disease of nondalton coronary artery without angina pectoris Status: Acute Assessment and Plan: CAD, history of CABG in 2021. Does have elevated troponins but no ischemic changes on her EKG or chest pain. Doubt any ACS. --continue beta-jaye, aspirin, atorvastatin --not sure why the patient is still taking Brilinta. Likely was intended that she would continue dual anti-platelet therapy for 1 year after her bypass surgery a non electively after that. Her medical care is somewhat dispersed, and the may be a reason for it, but as far as I am aware she has not had a recent stent or anything that would require ongoing dual anti-platelet therapy. Will hold Brilinta for now, since she is bleeding fr toenail. Consider resuming dpt with Plavix at a later date. (4) Diabetic ulcer of left foot: Code(s): E11.621 - Type 2 diabetes mellitus with foot ulcer; L97.529 - Non-pressure chronic ulcer of other part of left foot with unspecified severity Status: Acute Assessment and Plan: Being evaluated by the W[facility] at [facility]. (5) Bacteremia: Code(s): R78.81 - Bacteremia Status: Acute Assessment and Plan: Found to have g positive cocci in clusters on 2 blood cultures (6) End stage renal disease: Code(s): N18.6 - End stage renal disease Status: Chronic Assessment and Plan: Being being followed followed by Dr. Vizcaino. History of Present Illness History of Present Illness Consult date/time: 11/09/22 07:51 Reason For Visit: syncope vs seizure,infected left foot ulcer Narrative: Pamela Bhat is a 47-year-old female were asked to see at the request of Dr. Aguilar for advice and opinion regarding her reduced ejection fraction, in consultation. She has a history of end-stage renal disease on dialysis, coronary artery disease status post PCI to the RCA, and later CABG x3 with left internal mammary artery to the left anterior descending, saphenous vein graft to the 1st obtuse marginal, and saphenous vein graft to the posterior descending branch of the right coronary artery in September of 2021 at [facility].? She also has an ischemic cardiomyopathy with a prior EF of 40-50%. Echo at [facility]
[2022-11-09 08:00] LABS: Glucose Point of Care 274 mg/dl (65-105)
[2022-11-09] MEDS: calcitrioL 0.25 MCG CAPSULE PO (09:32)
[2022-11-09] MEDS: VITAMIN B CMPLX/VIT C/FOLIC AC 1 CAPSULE 1 CAP PO (09:33)
[2022-11-09] MEDS: carvediloL 6.25 MG TABLET PO (09:33)
[2022-11-09] MEDS: SEVELAMER CARBONATE 800 MG TABLET PO ×4 (09:33→20:35)
[2022-11-09] MEDS: PANTOPRAZOLE 40 MG TABLET PO ×2 (09:33→20:35)
[2022-11-09] MEDS: TICAGRELOR 90 MG TABLET PO (09:33)
[2022-11-09] MEDS: ASPIRIN 81 MG ENTERIC TABLET PO (09:33)
[2022-11-09] MEDS: INSULIN ASPART (*BKC) 100 UNITS/ML SUB-Q ×3 (09:34→18:40)
[2022-11-09] MEDS: GENTAMICIN SULFATE 0.1% OINT 15 GM TUBE 1 APPLIC TOPICAL (09:35)
[2022-11-09] MEDS: COLLAGENASE OINT 30 GM TUBE 1 APPLIC TOPICAL (09:35)
[2022-11-09] MEDS: MORPHINE SULFATE (*CRX) 2 MG/ML INJ IV PUSH (10:45)
[2022-11-09] MEDS: ONDANSETRON INJ 4 MG/2 ML VIAL IV PUSH (10:53)
[2022-11-09 11:47] LABS: Glucose Point of Care 280 mg/dl (65-105)
--- NOTE | 2022-11-09 13:30 | WPDPN ---
Progress Note: A&P Assessment and Plan (1) Syncope: Code(s): R55 - Syncope and collapse Status: Acute Assessment and Plan: Patient likely at a syncopal episode on the toilet today. Seizure seems less likely as she was not postictal, incontinent, and there was no evidence of tongue bite. Furthermore she has no history of seizures. Lactic acid level was minimally elevated but may have been related to lab draw technique. Monitor orthostatic vital signs. 11/09/2022 interval history: Patient came to emergency department with concern with seizure however upon arrival of EMS and while at the Emergency department patient was fully oriented and not postictal patient was admitted for further evaluate and observation, patient also has elevated tropes most likely secondary to end-stage renal disease on hemodialysis however to further evaluate cardiac echo which showed reduced EF of 25% compared to 40% on May of 2022, patient is seen by cdl a driver patient does need ischemic work up increased carvedilol to 12.5mg BID, and continue DAPT, patient also has wound on her right foot and patient will be seen wound nurse, both bottles of blood cultures are growing g positive cocci and cluster will follow-up under identification and sensitivity, patient is being treated vancomycin and Zosyn, today while in the wash room injured her left G toe, bleeding and nail is hanging, nail was removed by her nurse, and non stick dressing applied, bleeding stopped, patient with a end-stage renal disease on hemodialysis will be seen her hand hide stretcher and will have a scheduled dialysis will continue to monitor. (2) Fluid overload: Qualifiers: Hypervolemia type: unspecified Qualified Code(s): E87.70 - Fluid overload, unspecified Code(s): E87.70 - Fluid overload, unspecified Status: Acute Assessment and Plan: She is markedly edematous, much more than I have ever seen her. She states compliance with dialysis. Unsure if she is compliant with fluid restriction. Nephrology consulted for dialysis which she may need for several days to remove excess fluid. Echocardiogram pending. (3) Diabetic ulcer of left foot: Code(s): E11.621 - Type 2 diabetes mellitus with foot ulcer; L97.529 - Non-pressure chronic ulcer of other part of left foot with unspecified severity Status: Acute Assessment and Plan: Followed by wound care [facility]. Wound nurse has been consulted and recommends continuing gentamicin ointment and Santyl. No evidence of acute infection at this time. (4) Elevated troponin: Code(s): R77.8 - Other specified abnormalities of plasma proteins Status: Acute Assessment and Plan: She is not having any chest pain whatsoever. Will continue to trend to peak, however. EKG shows no acute ST segment elevations or depressions. (5) Congestive heart failure: Code(s): I50.9 - Heart failure, unspecified Status: Acute Assessment and Plan: Echocardiogram in May 2022 showed moderate LV enlargement with systolic dysfunction EF estimated 35 to 40%, posterior segment akinesis, and grade 2 diastolic dysfunction. Repeat echocardiogram pending to rule out worsening EF as the cause of her marked edema. (6) Elevated LFTs: Code(s): R79.89 - Other specified abnormal findings of blood chemistry Status: Acute Assessment and Plan: Abdominal exam is benign. May very well be related to congestion from fluid overload. Repeat in a.m. (7) Insulin dependent diabetes mellitus: Status: Acute Assessment and Plan: Continue basal insulin. Initiate sliding scale insulin, Accu-Cheks, and hypoglycemic protocol. Check A1c. (8) End-stage renal disease on hemodialysis: Code(s): N18.6 - End stage renal disease; Z99.2 - Dependence on renal dialysis Status: Chronic Assessment and Plan: Nephrology consulted for hemodialysis. She is marlene
[2022-11-09] MEDS: carvediloL 12.5 MG TABLET PO ×2 (14:06→18:39)
--- NOTE | 2022-11-09 15:01 | P.PNNP_ITS ---
Progress Note: A&P Assessment and Plan (1) ESRD (end stage renal disease): Code(s): N18.6 - End stage renal disease Status: Chronic Assessment and Plan: * HD Three days in a row * continue M/W/F dialysis schedule * no need for another dialysis today. * volume status looks okay. * Electrolytes are okay. * She is off oxygen. (2) Fluid overload: Qualifiers: Hypervolemia type: unspecified Qualified Code(s): E87.70 - Fluid overload, unspecified Code(s): E87.70 - Fluid overload, unspecified Status: Acute Assessment and Plan: * quite apparent by physical exam on admission * Much improved. (3) Bacteremia: Code(s): R78.81 - Bacteremia Status: Acute Assessment and Plan: * positive blood culture noted * on antibiotic therapy * Replete blood cultures are negative * Staph epi grew in 2/3 cultures * follow repeat cultures * she is on vancomycin per pharmacy * source??? (4) Diabetic ulcer of left foot: Code(s): E11.621 - Type 2 diabetes mellitus with foot ulcer; L97.529 - Non-pressure chronic ulcer of other part of left foot with unspecified severity Status: Acute Assessment and Plan: * follow by wound care as an outpatient * no acute infection noted * continue local wound care (5) Anemia: Code(s): D64.9 - Anemia, unspecified Status: Chronic Assessment and Plan: * due to ESRD hemoglobin is above 11. patient has not received Epogen so for this admission (6) Insulin dependent diabetes mellitus: Status: Acute Assessment and Plan: * follow accuchecks * glycemic control per hospitalists Subjective Date/time seen: 11/09/22 15:01 Interval history: Alert. She feels okay lying in bed. She has some swelling in both legs. Exam Narrative: General: chronically ill appearing female in NAD Heart: normal S1 and S2; no rub Lungs: clear anteriorly but decreased at bases Abdomen: soft, nontender, nondistended, positive bowel sounds Extremities: 1+ swelling Skin: No rash Objective Data Vital Signs Vital Signs: Vital Signs - 24 hr 11/08/22 15:20 11/08/22 15:40 11/08/22 16:00 Temperature Pulse Rate 86 86 86 Respiratory Rate Blood Pressure 130/65 127/64 125/68 Pulse Oximetry Oxygen Delivery 11/08/22 16:00 11/08/22 16:00 11/08/22 16:20 Temperature Pulse Rate 86 86 Respiratory Rate Blood Pressure 128/61 Pulse Oximetry Oxygen Delivery Room Air 11/08/22 16:40 11/08/22 16:51 11/08/22 17:00 Temperature 97.5 F L Pulse Rate 86 86 86 Respiratory Rate 20 Blood Pressure 121/60 116/61 110/61 Pulse Oximetry Oxygen Delivery 11/08/22 18:00 11/08/22 20:00 11/08/22 20:39 Temperature 97.6 F Pulse Rate 89 90 Respiratory Rate 18 Blood Pressure 131/57 L Pulse Oximetry 100 94 Oxygen Delivery Room Air 11/08/22 21:05 11/08/22 23:03 11/09/22 00:50 Temperature 97 F L Pulse Rate 90 89 Respiratory Rate 20 21 H Blood Pressure 142/67 H
--- NOTE | 2022-11-09 15:01 | PM.PNNEP ---
Progress Note: A&P Assessment and Plan (1) ESRD (end stage renal disease): Code(s): N18.6 - End stage renal disease Status: Chronic Assessment and Plan: HD Three days in a row continue M/W/F dialysis schedule no need for another dialysis today. volume status looks okay. Electrolytes are okay. She is off oxygen. (2) Fluid overload: Qualifiers: Hypervolemia type: unspecified Qualified Code(s): E87.70 - Fluid overload, unspecified Code(s): E87.70 - Fluid overload, unspecified Status: Acute Assessment and Plan: quite apparent by physical exam on admission Much improved. (3) Bacteremia: Code(s): R78.81 - Bacteremia Status: Acute Assessment and Plan: positive blood culture noted on antibiotic therapy Replete blood cultures are negative Staph epi grew in 2/3 cultures follow repeat cultures she is on vancomycin per pharmacy source??? (4) Diabetic ulcer of left foot: Code(s): E11.621 - Type 2 diabetes mellitus with foot ulcer; L97.529 - Non-pressure chronic ulcer of other part of left foot with unspecified severity Status: Acute Assessment and Plan: follow by wound care as an outpatient no acute infection noted continue local wound care (5) Anemia: Code(s): D64.9 - Anemia, unspecified Status: Chronic Assessment and Plan: due to ESRD hemoglobin is above 11. patient has not received Epogen so for this admission (6) Insulin dependent diabetes mellitus: Status: Acute Assessment and Plan: follow accuchecks glycemic control per hospitalists Subjective Date/time seen: 11/09/22 15:01 Interval history: Alert. She feels okay lying in bed. She has some swelling in both legs. Exam Narrative: General: chronically ill appearing female in NAD Heart: normal S1 and S2; no rub Lungs: clear anteriorly but decreased at bases Abdomen: soft, nontender, nondistended, positive bowel sounds Extremities: 1+ swelling Skin: No rash Objective Data Vital Signs Vital Signs: Vital Signs - 24 hr 11/08/22 15:20 11/08/22 15:40 11/08/22 16:00 Temperature Pulse Rate 86 86 86 Respiratory Rate Blood Pressure 130/65 127/64 125/68 Pulse Oximetry Oxygen Delivery 11/08/22 16:00 11/08/22 16:00 11/08/22 16:20 Temperature Pulse Rate 86 86 Respiratory Rate Blood Pressure 128/61 Pulse Oximetry Oxygen Delivery Room Air 11/08/22 16:40 11/08/22 16:51 11/08/22 17:00 Temperature 97.5 F L Pulse Rate 86 86 86 Respiratory Rate 20 Blood Pressure 121/60 116/61 110/61 Pulse Oximetry Oxygen Delivery 11/08/22 18:00 11/08/22 20:00 11/08/22 20:39 Temperature 97.6 F Pulse Rate 89 90 Respiratory Rate 18 Blood Pressure 131/57 L Pulse Oximetry 100 94 Oxygen Delivery Room Air 11/08/22 21:05 11/08/22 23:03 11/09/22 00:50 Temperature 97 F L Pulse Rate 90 89 Respiratory Rate 20 21 H Blood Pressure 142/67 H Pulse Oximetry 100 96 Oxygen Delivery CPAP 11/09/22 04:00 11/08/22 20:00 11/08/22 20:00 Temperature 97.6 F Pulse Rate 86 89 Respiratory Rate 20 Blood Pressure 125/54 L Pulse Oximetry 98 Oxygen Delivery Room Air 11/08/22 22:00 11/09/22 00:00 11/09/22 02:00 Temperature Pulse Rate 90 88 84 Respiratory Rate Blood Pressure Pulse Oximetry Oxygen Delivery 11/09/22 04:00 11/09/22 00:00 11/09/22 04:00 Temperature Pulse Rate 86 Respiratory Rate Blood Pressure Pulse Oximetry Oxygen Delivery Room Air Room Air 11/09/22 06:00 11/09/22 08:02 11/09/22 09:33 Temperature 96.6 F L Pulse Rate 84 89 89 Respiratory Rate 18 Blood Pressure 133/66 Pulse Oximetry 96 Oxygen Delivery 11/09/22 11:54 11/09/22 12:02 11/09/22 12:03 Temperature 97.5 F L 97.5 F L Pulse Rate 89 89 91 Respiratory Rate 20 20 Blood Press
[2022-11-09 16:41] LABS: Glucose Point of Care 294 mg/dl (65-105)
[2022-11-09 20:18] LABS: Glucose Point of Care 299 mg/dl (65-105)
[2022-11-09] MEDS: INSULIN GLARGINE (*BKC) 100 UNITS/ML 10 UNITS SUB-Q (20:34)
[2022-11-10] VITALS (22 sets, daily range): BP systolic 92–109; BP diastolic 42–60; PULSE 56–104; RESP 20–21; TEMP 35.8–36.8; O2SAT 94–100
[2022-11-10] MEDS: MELATONIN 5 MG TABLET PO ×2 (02:17→20:28)
[2022-11-10 04:42] LABS: Hematocrit 32.1 % (37.0-47.0); Hemoglobin 10.1 g/dL (12.0-15.0); Immature Platelet Fraction Pct 5.9 % (0.9-11.2); Mean Corpuscular HGB Conc 31.5 g/dl (32-36); Mean Corpuscular Hemoglobin 32.2 pg (26-34); Mean Corpuscular Volume 102.2 fl (80-100); Mean Platelet Volume 11.3 fl (7.4-10.4); Platelet Count Result 78 k/mm3 (150-375); Red Blood Count 3.14 M/mm3 (4.2-5.4); Red Cell Distribution Width 16.2 % (11.5-14.5); White Blood Count 4.9 K/mm3 (4.5-10.0)
[2022-11-10 04:52] LABS: Albumin Level 3.9 g/dL (3.5-5.1); Anion Gap 15 mmol/L (8-16); Blood Urea Nitrogen 43 mg/dL (7-17); Carbon Dioxide 26 mmol/L (22-30); Chloride 93 mmol/L (98-107); Estimated CRCL calculation 15 ml/min; Estimated Glomerular Filt Rate 10; Glucose 344 mg/dL (65-110); Magnesium 2.2 mg/dL (1.6-2.3); Phosphorus 6.5 mg/dL (2.5-4.5); Potassium 5.3 mmol/L (3.4-5.0); Sodium 134 mmol/L (137-145)
[2022-11-10] MEDS: SUCRALFATE 1 GM TABLET PO ×4 (06:05→20:27)
[2022-11-10 07:59] LABS: Glucose Point of Care 324 mg/dl (65-105)
--- NOTE | 2022-11-10 09:18 | PM.PNCARD ---
Progress Note: A&P Assessment and Plan (1) Syncope: Code(s): R55 - Syncope and collapse Status: Acute Assessment and Plan: Patient admitted with a syncopal episode without prodrome, and brief seizure-like activity but she was not postictal so at this was likely not a seizure. No low blood pressures have been detected here. In view of her severe left ventricular dysfunction, she is at risk of malignant arrhythmias and that may have been the etiology. She is at risk of sudden cardiac based on her EF and history. --keep on telemetry --counseled patient extensively. Reviewed her risk of sudden cardiac . Discussed LifeVest and eventual, electrophysiology consultation. Her usual lens examiner is Dr. Thakur. --Discharge w/ LifeVest if pt amenable --may need an ICD, but cannot have one implanted while infected; also at a higher risk than usual of device-related infection because she is on dialysis. (Perhaps she could get a leadless ICD, if electrophysiology feels one is indicated.) D defer to electrophysiology. --Continue carvedilol (2) Cardiomyopathy: Code(s): I42.9 - Cardiomyopathy, unspecified Status: Acute Assessment and Plan: Ischemic cardiomyopathy; the patient's ejection fraction varies from 30% to 50%, but the echo this admission showed severe left ventricular dysfunction, EF now 25-30%. Does have volume overload but pulmonary congestion. --increase carvedilol to 12.5 mg BID, titrate dose as blood pressure tolerates --add losartan if okay with Dr. Vizcaino?natalie and pt's BP, which is a little lower today --likely cannot use an SGLT-2 inhibitor or spironolactone in view of her end-stage renal disease (3) Coronary artery disease: Code(s): I25.10 - Atherosclerotic heart disease of [place] coronary artery without angina pectoris Status: Acute Assessment and Plan: CAD, history of CABG in 2021. Does have elevated troponins but no ischemic changes on her EKG or chest pain. Doubt any ACS. --continue beta-jaye, aspirin, atorvastatin --not sure why the patient is still taking Brilinta. Likely was intended that she would continue dual anti-platelet therapy for 1 year after her bypass surgery a non electively after that. Her medical care is somewhat dispersed, and the may be a reason for it, but as far as I am aware she has not had a recent stent or anything that would require ongoing dual anti-platelet therapy. Will hold Brilinta for now, since she is bleeding fr toenail. Consider resuming dpt with Plavix at a later date. --Lexiscan stress tmr to eval the decline in LV fxn further (4) Diabetic ulcer of left foot: Code(s): E11.621 - Type 2 diabetes mellitus with foot ulcer; L97.529 - Non-pressure chronic ulcer of other part of left foot with unspecified severity Status: Acute Assessment and Plan: Being evaluated by [facility]. (5) Bacteremia: Code(s): R78.81 - Bacteremia Status: Acute Assessment and Plan: Found to have staph epi in 2 blood cultures (6) End stage renal disease: Code(s): N18.6 - End stage renal disease Status: Chronic Assessment and Plan: Being being followed followed by Dr. Vizcaino/Natalie. Subjective Date/time seen: 11/10/22 09:18 Interval history: Patient admitted with a presyncopal episode, w/o prodrome, suspicious for a malignant arrhythmia. history of cardiomyopathy, EF has declined to 25-30%. History of CAD and CABG in September 2021. Diabetic foot ulcer. Bacteremia with 2 blood C&S growing staph epi. End-stage renal disease on dialysis. Her usual lens examiner is Dr. Tracey Nair. Date of service 11/10/2022: Patient with chronic shortness of breath, no chest pain. Can not recall any chest pain last year or 2. Edema improved. Telemetry shows no arrhythmias. Review of Systems Review of Systems: Toenail removed yesterday, still has
--- NOTE | 2022-11-10 10:15 | P.PNNP_ITS ---
Progress Note: A&P Assessment and Plan (1) ESRD (end stage renal disease): Code(s): N18.6 - End stage renal disease Status: Chronic Assessment and Plan: * HD Three days in a row * continue M/W/F dialysis schedule * volume status looks okay. she does have a little bit of swelling. She is not on oxygen and lung sound okay. * Electrolytes are okay. * Will order treatment for tomorrow (2) Fluid overload: Qualifiers: Hypervolemia type: unspecified Qualified Code(s): E87.70 - Fluid overload, unspecified Code(s): E87.70 - Fluid overload, unspecified Status: Acute Assessment and Plan: * quite apparent by physical exam on admission * Much improved. (3) Bacteremia: Code(s): R78.81 - Bacteremia Status: Acute Assessment and Plan: * positive blood culture noted * on antibiotic therapy * Repeat blood cultures are negative * Staph epi grew in 2/3 cultures * follow repeat cultures * she is on vancomycin per pharmacy * source??? is it real? (4) Diabetic ulcer of left foot: Code(s): E11.621 - Type 2 diabetes mellitus with foot ulcer; L97.529 - Non-pressure chronic ulcer of other part of left foot with unspecified severity Status: Acute Assessment and Plan: * follow by wound care as an outpatient * no acute infection noted * continue local wound care (5) Anemia: Code(s): D64.9 - Anemia, unspecified Status: Chronic Assessment and Plan: * due to ESRD hemoglobin is down to 10.1. Will give EPO tomorrow (6) Insulin dependent diabetes mellitus: Status: Acute Assessment and Plan: * follow accuchecks * glycemic control per hospitalists Subjective Date/time seen: 11/10/22 10:15 Interval history: Alert. patient feels about the same. She has some swelling in both legs. Exam Narrative: General: chronically ill appearing female in NAD Heart: normal S1 and S2; no rub or gallop Lungs: clear anteriorly but decreased at bases Abdomen: soft, nontender, nondistended, positive bowel sounds Extremities: 1+ bilateral swelling Skin: No rash Objective Data Vital Signs Vital Signs: Vital Signs - 24 hr 11/09/22 11:54 11/09/22 12:02 11/09/22 12:03 Temperature 97.5 F L 97.5 F L Pulse Rate 89 89 91 Respiratory Rate 20 20 Blood Pressure 133/66 133/66 138/79 Pulse Oximetry 97 97 Oxygen Delivery Fraction of Inspired Oxygen 11/09/22 14:06 11/09/22 16:42 11/09/22 18:39 Temperature 96.0 F L Pulse Rate 62 63 60 Respiratory Rate 20 Blood Pressure 127/57 L Pulse Oximetry 97 Oxygen Delivery Fraction of Inspired Oxygen 11/09/22 12:00 11/09/22 14:00 11/09/22 16:00 Temperature Pulse Rate 66 69 62 Respiratory Rate Blood Pressure Pulse Oximetry Oxygen Delivery Fraction of Inspired Oxygen 11/09/22 18:00 11/09/22 12:00 11/09/22 16:00 Temperature Pulse Rate 64 60 60 Respiratory Rate 20 20 Blood Pressure Pulse Oximetry 97 97 Oxygen Delivery Room Air Room Air Fr
--- NOTE | 2022-11-10 10:15 | PM.PNNEP ---
Progress Note: A&P Assessment and Plan (1) ESRD (end stage renal disease): Code(s): N18.6 - End stage renal disease Status: Chronic Assessment and Plan: HD Three days in a row continue M/W/ dialysis schedule volume status looks okay. she does have a little bit of swelling. She is not on oxygen and lung sound okay. Electrolytes are okay. Will order treatment for tomorrow (2) Fluid overload: Qualifiers: Hypervolemia type: unspecified Qualified Code(s): E87.70 - Fluid overload, unspecified Code(s): E87.70 - Fluid overload, unspecified Status: Acute Assessment and Plan: quite apparent by physical exam on admission Much improved. (3) Bacteremia: Code(s): R78.81 - Bacteremia Status: Acute Assessment and Plan: positive blood culture noted on antibiotic therapy Repeat blood cultures are negative Staph epi grew in 2/3 cultures follow repeat cultures she is on vancomycin per pharmacy source??? is it real? (4) Diabetic ulcer of left foot: Code(s): E11.621 - Type 2 diabetes mellitus with foot ulcer; L97.529 - Non-pressure chronic ulcer of other part of left foot with unspecified severity Status: Acute Assessment and Plan: follow by wound care as an outpatient no acute infection noted continue local wound care (5) Anemia: Code(s): D64.9 - Anemia, unspecified Status: Chronic Assessment and Plan: due to ESRD hemoglobin is down to 10.1. Will give EPO tomorrow (6) Insulin dependent diabetes mellitus: Status: Acute Assessment and Plan: follow accuchecks glycemic control per hospitalists Subjective Date/time seen: 11/10/22 10:15 Interval history: Alert. patient feels about the same. She has some swelling in both legs. Exam Narrative: General: chronically ill appearing female in NAD Heart: normal S1 and S2; no rub or gallop Lungs: clear anteriorly but decreased at bases Abdomen: soft, nontender, nondistended, positive bowel sounds Extremities: 1+ bilateral swelling Skin: No rash Objective Data Vital Signs Vital Signs: Vital Signs - 24 hr 11/09/22 11:54 11/09/22 12:02 11/09/22 12:03 Temperature 97.5 F L 97.5 F L Pulse Rate 89 89 91 Respiratory Rate 20 20 Blood Pressure 133/66 133/66 138/79 Pulse Oximetry 97 97 Oxygen Delivery Fraction of Inspired Oxygen 11/09/22 14:06 11/09/22 16:42 11/09/22 18:39 Temperature 96.0 F L Pulse Rate 62 63 60 Respiratory Rate 20 Blood Pressure 127/57 L Pulse Oximetry 97 Oxygen Delivery Fraction of Inspired Oxygen 11/09/22 12:00 11/09/22 14:00 11/09/22 16:00 Temperature Pulse Rate 66 69 62 Respiratory Rate Blood Pressure Pulse Oximetry Oxygen Delivery Fraction of Inspired Oxygen 11/09/22 18:00 11/09/22 12:00 11/09/22 16:00 Temperature Pulse Rate 64 60 60 Respiratory Rate 20 20 Blood Pressure Pulse Oximetry 97 97 Oxygen Delivery Room Air Room Air Fraction of Inspired Oxygen 28 11/09/22 20:00 11/09/22 20:00 11/09/22 20:00 Temperature 97.7 F 97.7 F Pulse Rate 69 61 69 Respiratory Rate 20 20 Blood Pressure 112/59 L 112/59 L Pulse Oximetry 94 94 Oxygen Delivery Fraction of Inspired Oxygen 11/09/22 20:00 11/09/22 22:00 11/09/22 23:54 Temperature Pulse Rate 61 62 Respiratory Rate 20 15 Blood Pressure Pulse Oximetry 94 95 Oxygen Delivery Room Air CPAP Fraction of Inspired Oxygen 28 11/09/22 23:57 11/10/22 00:00 11/10/22 00:00 Temperature 97.2 F L Pulse Rate 60 59 L 59 L Respiratory Rate 20 20 Blood Pressure 98/55 L Pulse Oximetry 98 98 Oxygen Delivery CPAP Fraction of Inspired Oxygen 28 11/10/22 02:00 11/10/22 04:00 11/10/22 04:00 Temperature Pulse Rate 56 L 57 L 57 L Respiratory Rate 20 Blood Pressure Pulse Oximetry 98 Oxygen De
[2022-11-10] MEDS: PIPERACILLIN/TAZ 2.25G/NS 50ML 2.25 GM/50 ML BAG IVPB ×2 (10:34→23:03)
[2022-11-10] MEDS: ASPIRIN 81 MG ENTERIC TABLET PO (10:34)
[2022-11-10] MEDS: carvediloL 12.5 MG TABLET PO ×2 (10:34→15:56)
[2022-11-10] MEDS: VITAMIN B CMPLX/VIT C/FOLIC AC 1 CAPSULE 1 CAP PO (10:35)
[2022-11-10] MEDS: calcitrioL 0.25 MCG CAPSULE PO (10:35)
[2022-11-10] MEDS: SEVELAMER CARBONATE 800 MG TABLET PO ×3 (10:35→20:28)
[2022-11-10] MEDS: INSULIN ASPART (*BKC) 100 UNITS/ML SUB-Q ×2 (10:35→15:58)
[2022-11-10] MEDS: HYDROcodone/acetaminophen (*CRX) 5-325 MG TABLET 1 TAB PO ×2 (10:35→23:24)
[2022-11-10] MEDS: GENTAMICIN SULFATE 0.1% OINT 15 GM TUBE 1 APPLIC TOPICAL (10:36)
[2022-11-10] MEDS: PANTOPRAZOLE 40 MG TABLET PO ×2 (10:36→20:28)
[2022-11-10] MEDS: COLLAGENASE OINT 30 GM TUBE 1 APPLIC TOPICAL (10:36)
[2022-11-10 11:37] LABS: Glucose Point of Care 404 mg/dl (65-105)
--- NOTE | 2022-11-10 14:54 | WPDPN ---
Progress Note: A&P Assessment and Plan (1) Syncope: Code(s): R55 - Syncope and collapse Status: Acute Assessment and Plan: Patient likely at a syncopal episode on the toilet today. Seizure seems less likely as she was not postictal, incontinent, and there was no evidence of tongue bite. Furthermore she has no history of seizures. Lactic acid level was minimally elevated but may have been related to lab draw technique. Monitor orthostatic vital signs. 11/10/2022 interval history: Patient came to emergency department with concern with seizure however upon arrival of EMS and while at the Emergency department patient was fully oriented and not postictal patient was admitted for further evaluate and observation, patient also has elevated tropes most likely secondary to end-stage renal disease on hemodialysis however to further evaluate cardiac echo which showed reduced EF of 25% compared to 40% on May of 2022, patient is seen by surveyor geodetic patient does need ischemic work up increased carvedilol to 12.5mg BID, and continue DAPT, today patient was seen by Cardiology and patient will have Lexiscan tomorrow and also recommended the patient will need LifeVest before discharge, patient also has wound on her right foot and patient will be seen wound nurse, both bottles of blood cultures are growing g positive cocci and cluster 1 bottle is growing Staph epididymis and another 1 is growing Staph aricular most likely contamination, however patient wound culture is growing Pseudomonas, Will follow-up under identification and sensitivity, patient is being treated vancomycin and Zosyn, on 10/10 while in the washroom injured her left G toe, bleeding and nail was hanging, nail was removed by her nurse, and non stick dressing applied, bleeding stopped, patient with a end-stage renal disease on hemodialysis will be seen her bus washer and will have a scheduled dialysis will continue to monitor. (2) Fluid overload: Qualifiers: Hypervolemia type: unspecified Qualified Code(s): E87.70 - Fluid overload, unspecified Code(s): E87.70 - Fluid overload, unspecified Status: Acute Assessment and Plan: She is markedly edematous, much more than I have ever seen her. She states compliance with dialysis. Unsure if she is compliant with fluid restriction. Nephrology consulted for dialysis which she may need for several days to remove excess fluid. Echocardiogram pending. (3) Diabetic ulcer of left foot: Code(s): E11.621 - Type 2 diabetes mellitus with foot ulcer; L97.529 - Non-pressure chronic ulcer of other part of left foot with unspecified severity Status: Acute Assessment and Plan: [facility]ound nurse has been consulted and recommends continuing gentamicin ointment and Santyl. No evidence of acute infection at this time. (4) Elevated troponin: Code(s): R77.8 - Other specified abnormalities of plasma proteins Status: Acute Assessment and Plan: She is not having any chest pain whatsoever. Will continue to trend to peak, however. EKG shows no acute ST segment elevations or depressions. (5) Congestive heart failure: Code(s): I50.9 - Heart failure, unspecified Status: Acute Assessment and Plan: Echocardiogram in May 2022 showed moderate LV enlargement with systolic dysfunction EF estimated 35 to 40%, posterior segment akinesis, and grade 2 diastolic dysfunction. Repeat echocardiogram pending to rule out worsening EF as the cause of her marked edema. (6) Elevated LFTs: Code(s): R79.89 - Other specified abnormal findings of blood chemistry Status: Acute Assessment and Plan: Abdominal exam is benign. May very well be related to congestion from fluid overload. Repeat in a.m. (7) Insulin dependent diabetes mellitus: Status: Acute Assessment and Plan: Continue basal insulin. Initiate s
[2022-11-10 15:38] LABS: Glucose Point of Care 302 mg/dl (65-105)
[2022-11-10 19:39] LABS: Glucose Point of Care 250 mg/dl (65-105)
[2022-11-10] MEDS: INSULIN GLARGINE (*BKC) 100 UNITS/ML 10 UNITS SUB-Q (20:24)
[2022-11-11] VITALS (32 sets, daily range): BP systolic 59–149; BP diastolic 23–63; PULSE 50–104; RESP 14–22; TEMP 35.6–37; O2SAT 98–100
[2022-11-11] MEDS: MELATONIN 5 MG TABLET PO ×2 (02:33→23:00)
[2022-11-11 04:57] LABS: Hematocrit 33.3 % (37.0-47.0); Hemoglobin 10.5 g/dL (12.0-15.0); Immature Platelet Fraction Pct 6.5 % (0.9-11.2); Mean Corpuscular HGB Conc 31.5 g/dl (32-36); Mean Corpuscular Hemoglobin 32.5 pg (26-34); Mean Corpuscular Volume 103.1 fl (80-100); Mean Platelet Volume 12.2 fl (7.4-10.4); Platelet Count Result 80 k/mm3 (150-375); Red Blood Count 3.23 M/mm3 (4.2-5.4); Red Cell Distribution Width 16.5 % (11.5-14.5); White Blood Count 4.8 K/mm3 (4.5-10.0)
[2022-11-11 05:14] LABS: Albumin Level 4.2 g/dL (3.5-5.1); Anion Gap 17 mmol/L (8-16); Blood Urea Nitrogen 58 mg/dL (7-17); Calcium 9.5 mg/dL (8.4-10.2); Carbon Dioxide 23 mmol/L (22-30); Chloride 95 mmol/L (98-107); Estimated CRCL calculation 12 ml/min; Estimated Glomerular Filt Rate 7; Glucose 213 mg/dL (65-110); Magnesium 2.2 mg/dL (1.6-2.3); Phosphorus 7.2 mg/dL (2.5-4.5); Potassium 5.7 mmol/L (3.4-5.0); Sodium 135 mmol/L (137-145)
[2022-11-11 05:20] LABS: Vancomycin Random 16.3 ug/mL (10-20)
[2022-11-11] MEDS: SUCRALFATE 1 GM TABLET PO ×2 (06:02→21:06)
--- NOTE | 2022-11-11 08:00 | EST_ITS ---
Patient Info Name: Pamela Bhat Age: 47 years : 1975 Gender: Female Ht: 65 in Wt: 200 lbs BSA: 2.07 m2 Exam Date: 11/11/2022 10:25 AM Exam Location: [facility] Stress Patient Status: Inpatient Admit Date: 11/07/2022 Staff Ordering Physician: Kandace Fulton MD Attending Provider: Marc Aguilar MD Exercise Technologist: Dolores Santoro RDCS Nurse: APRIL MENDEZ NP Exam Type: CA stress brayan w NM Study Info Indications I42.9 - Cardiomyopathy, unspecified - CAD A regadenoson stress test was performed. Summary 1. Please correlate with nuclear medicine images, reported separately. 2. No abnormal ST-T wave changes with lexiscan. 3. Supervising Physician is Dr. Chavo Glez. Protocol: Lexiscan Stress ECG Details Stage: REST Duration (min): 0 min : 46 sec HR (bpm): 57 SBP (mmHg): 124 DBP (mmHg): 61 Stage: REST Duration (min): 5 min : 31 sec HR (bpm): 57 SBP (mmHg): 124 DBP (mmHg): 61 Stage: STAGE 1 Duration (min): 1 min : 0 sec HR (bpm): 57 SBP (mmHg): 124 DBP (mmHg): 61 Stage: RECOVERY Duration (min): 1 min : 0 sec HR (bpm): 58 SBP (mmHg): 104 DBP (mmHg): 46 Stage: RECOVERY Duration (min): 2 min : 0 sec HR (bpm): 58 SBP (mmHg): 105 DBP (mmHg): 50 Stage: RECOVERY Duration (min): 3 min : 0 sec HR (bpm): 58 SBP (mmHg): 103 DBP (mmHg): 50 Stage: RECOVERY Duration (min): 3 min : 40 sec HR (bpm): 58 SBP (mmHg): 103 DBP (mmHg): 50 Rest HR: 57 bpm Peak HR: 59 bpm Rest Sys BP: 124 mmHg Peak Sys BP: 105 mmHg Max Pred HR: 171 bpm % Max Pred HR: 35 % Target HR: 145 bpm Max RPP: 6,195 bpm*mmHg BP Response: Normal blood pressure response Termination Reason: Completed protocol Cardiac Symptoms: None Total Time: 1 min : 0 sec Rest Montero BP: 61 mmHg Peak Montero BP: 50 mmHg Total Dose: 0.4 mg Resting ECG Sinus bradycardia. Resting ST/T wave changes. Stress ECG No abnormal ST/T wave changes with Lexiscan. Arrhythmias None. Report Signatures
[2022-11-11 08:12] LABS: Glucose Point of Care 231 mg/dl (65-105)
[2022-11-11] MEDS: ASPIRIN 81 MG ENTERIC TABLET PO (08:56)
[2022-11-11] MEDS: calcitrioL 0.25 MCG CAPSULE PO (08:57)
[2022-11-11] MEDS: VITAMIN B CMPLX/VIT C/FOLIC AC 1 CAPSULE 1 CAP PO (08:57)
[2022-11-11] MEDS: carvediloL 12.5 MG TABLET PO ×2 (08:57→21:06)
[2022-11-11] MEDS: PANTOPRAZOLE 40 MG TABLET PO ×2 (08:57→21:05)
[2022-11-11] MEDS: HYDROcodone/acetaminophen (*CRX) 5-325 MG TABLET 1 TAB PO ×2 (08:59→23:00)
--- NOTE | 2022-11-11 10:14 | P.CDI_ITS ---
CDI Query Clarification Request Documented history of CHF. CHF noted on the assessment and plan. Edema noted in the documentation. Please specify type and acuity of heart failure if known. * Acute * Chronic * Acute on Chronic * Unknown * Systolic * Diastolic * Combined Systolic and Diastolic * Unknown <Ladonna Soto RN - Last Filed: 11/11/22 10:18> Clarified Diagnosis Clarified Diagnosis: Patient with severe cardiomyopathy has acute on chronic systolic congestive Heart failure <Marc Aguilar MD - Last Filed: 11/27/22 18:37>
[2022-11-11] MEDS: PIPERACILLIN/TAZ 2.25G/NS 50ML 2.25 GM/50 ML BAG IVPB (11:36)
[2022-11-11 12:16] LABS: Glucose Point of Care 261 mg/dl (65-105)
[2022-11-11] MEDS: GENTAMICIN SULFATE 0.1% OINT 15 GM TUBE 1 APPLIC TOPICAL (12:49)
[2022-11-11] MEDS: COLLAGENASE OINT 30 GM TUBE 1 APPLIC TOPICAL (12:49)
[2022-11-11] MEDS: INSULIN ASPART (*BKC) 100 UNITS/ML SUB-Q (13:06)
[2022-11-11] MEDS: SEVELAMER CARBONATE 800 MG TABLET PO ×2 (13:08→21:07)
[2022-11-11] MEDS: ONDANSETRON INJ 4 MG/2 ML VIAL IV PUSH ×2 (13:18→21:21)
[2022-11-11] MEDS: ALBUMIN HUMAN 25% 12.5 GM/50ML 50 ML IVPB ×2 (14:04→14:58)
[2022-11-11] MEDS: EPOETIN ALFA-EPBX 10,000 UNITS/ML VIAL 10000 UNITS IV PUSH (14:05)
--- NOTE | 2022-11-11 15:22 | PM.PNNEP ---
Progress Note: A&P Assessment and Plan (1) ESRD (end stage renal disease): Code(s): N18.6 - End stage renal disease Status: Chronic Assessment and Plan: HD today continue M/W/F dialysis schedule follow electrolytes, volume status, and clearance (2) Fluid overload: Qualifiers: Hypervolemia type: unspecified Qualified Code(s): E87.70 - Fluid overload, unspecified Code(s): E87.70 - Fluid overload, unspecified Status: Acute Assessment and Plan: quite apparent by physical exam on admission slow improvement with ongoing fluid removal/ultrafiltration with dialysis (3) Bacteremia: Code(s): R78.81 - Bacteremia Status: Acute Assessment and Plan: positive blood culture noted - Staph epidermis on antibiotic therapy repeat blood cultures are negative real versus contamination (?) -- if real, source?? (4) Diabetic ulcer of left foot: Code(s): E11.621 - Type 2 diabetes mellitus with foot ulcer; L97.529 - Non-pressure chronic ulcer of other part of left foot with unspecified severity Status: Acute Assessment and Plan: follow by wound care as an outpatient no acute infection noted continue local wound care (5) Anemia: Code(s): D64.9 - Anemia, unspecified Status: Chronic Assessment and Plan: due to ESRD Epogen with HD follow trend of H/H (6) Insulin dependent diabetes mellitus: Status: Acute Assessment and Plan: follow accuchecks glycemic control per hospitalists Will continue to follow. Subjective Date/time seen: 11/11/22 15:22 Interval history: Follow-up for end stage renal disease on hemodialysis and volume overload. Chart reviewed since last seen -- tolerating dialysis at the time of my visit (seen on HD at 3:10PM); however, blood pressure is low making fluid removal difficult; also, seems a bit lethargic/fatigued as well and reports some mild shortness of breath; no issues/events overnight or earlier this AM. Exam Narrative: General: chronically ill appearing female in NAD Heart: normal S1 and S2; no rub Lungs: clear anteriorly but decreased at bases Abdomen: soft, nontender, nondistended, positive bowel sounds Extremities: 1+ bilateral lower extremity swelling Skin: warm and dry Objective Data Vital Signs Vital Signs: Vital Signs Temp Pulse Resp BP Pulse Ox O2 Del Method O2 Flow Rate 11/11/22 15:06 60 77/28 L 11/11/22 14:40 65 85/54 L 11/11/22 14:00 66 11/11/22 13:30 78 149/58 H 11/11/22 14:23 65 98/33 L 11/11/22 14:02 66 86/23 L 11/11/22 13:43 66 95/43 L 11/11/22 13:30 97.4 F L 78 16 149/58 H 11/11/22 12:39 100 Nasal Cannula 2 11/11/22 12:00 59 L 11/11/22 10:00 61 11/11/22 08:00 62 11/11/22 08:00 Room Air 11/11/22 11:45 124/54 L 11/11/22 11:42 97.1 F L 64 22 H 114/34 L 100 11/11/22 11:34 97.1 F L 64 22 H 114/34 L 100 11/11/22 08:57 59 L 11/11/22 08:00 97 F L 59 L 14 123/59 L 98 11/11/22 05:59 59 L 11/11/22 04:00 56 L 11/11/22 04:00 56 L CPAP 11/11/22 03:35 98.1 F 55 L 20 102/53 L 100 11/11/22 02:00 55 L 11/11/22 00:00 104 H 11/10/22 23:52 104 H 20 100 Room Air 11/10/22 23:28 98.2 F 56 L 20 92/60 L 100 11/10/22 23:23 92/60 L 11/10/22 22:00 57 L 11/10/22 20:00 58 L 11/10/22 20:00 58 L 20 100 Room Air 11/10/22 19:44 97 F L 59 L 20 108/42 L 100 11/10/22 18:00 58 L 11/10/22 16:00 Room Air 11/10/22 16:00 59 L 11/10/22 16:23 96.8 F L 58 L 20 108/54 L 94 11/10/22 15:56 59 L Intake/Output Intake/Output: Intake & Output 05/12/23 05/13/23 05/14/23 05/15/23 23:59 23:59 23:59 23:59 Intake Total 2290 1040 1442 390 Output Total 4000 25 25 0 Balance
--- NOTE | 2022-11-11 15:26 | PM.PNCARD ---
Progress Note: A&P Assessment and Plan (1) Syncope: Code(s): R55 - Syncope and collapse Status: Acute Assessment and Plan: Patient admitted with a syncopal episode without prodrome, and brief seizure-like activity but she was not postictal so at this was likely not a seizure. Echo read as EF 25 - 30%, so in view of her severe left ventricular dysfunction, she was considered at risk of malignant arrhythmias, which may be etiology of her syncope. EF today on nuclear imaging measured EF at 54%, but may be an overestimation of the EF. Will base treatment recommendations on EF from echocardiogram -- keep on telemetry -- Reviewed her risk of sudden cardiac . Dr. Fulton previously discussed LifeVest and eventual, electrophysiology consultation. Her usual information assurance specialist is Dr. Tracey Nair. --Discharge w/ LifeVest if she qualifies and is amenable --may need an ICD --Continue carvedilol (2) Cardiomyopathy: Code(s): I42.9 - Cardiomyopathy, unspecified Status: Acute Assessment and Plan: Ischemic cardiomyopathy; the patient's ejection fraction varies from 30% to 50%, but the echo this admission showed severe left ventricular dysfunction, EF now 25-30%. Does have volume overload but pulmonary congestion. --increase carvedilol to 12.5 mg BID, titrate dose as blood pressure tolerates --add losartan if okay with Dr. Vizcaino?natalie and pt's BP, which is a little lower today --likely cannot use an SGLT-2 inhibitor or spironolactone in view of her end-stage renal disease (3) Coronary artery disease: Code(s): I25.10 - Atherosclerotic heart disease of [place] coronary artery without angina pectoris Status: Acute Assessment and Plan: CAD, history of CABG in 2021. Does have elevated troponins but no ischemic changes on her EKG or chest pain. Doubt any ACS. --continue beta-jaye, aspirin, atorvastatin --Resume Brilinta when bleeding from toenail subsides. Her medical care is dispersed, but looks like she had NSTEMI in 01/2022 with stent placement, so would require DAPT at least until 01/2023 --Lexiscan stress showed moderate-sized area of mild ischemia involving mid to basal inferior and mid inferoseptal segments of left ventricle, small area of mild ischemia involving mid anterior segment of left ventricle, and Large area of severe infarct involving mid to basal anterolateral and inferolateral wall of left ventricle. Since she is not having any ischemic symptoms, and with complex history of CAD with CABG and stenting, would not recommend angiogram at this time. Will defer to her usual information assurance specialist, Dr. Tracey Nair in this regard. (4) Diabetic ulcer of left foot: Code(s): E11.621 - Type 2 diabetes mellitus with foot ulcer; L97.529 - Non-pressure chronic ulcer of other part of left foot with unspecified severity Status: Acute Assessment and Plan: Being evaluated by the [facility] at [facility]. (5) Bacteremia: Code(s): R78.81 - Bacteremia Status: Acute Assessment and Plan: Found to have staph epi in 2 blood cultures (6) End stage renal disease: Code(s): N18.6 - End stage renal disease Status: Chronic Assessment and Plan: Being being followed followed by Dr. Vizcaino/Natalie. Subjective Date/time seen: 11/11/22 15:26 Cardiology follow up for cardiomyopathy, CAD, syncope Interval history: She is complaining of fatigue and mild shortness of breath this morning. No chest pain or palpitations. Review of Systems Constitutional: Constitutional: Denies fever(s) Eyes: Eyes: Reports no additional eye complaints ENT: Denies epistaxis Cardiovascular: Cardiovascular: Denies chest pain, Reports pedal edema, Denies lightheadedness and Denies dyspnea Respiratory: Respiratory: Denies chest congestion and Denies dyspnea Gastrointestinal: Gastrointestinal: Denies abdominal pain and Denies hematochezia Genitourinary:
[2022-11-11 16:49] LABS: Glucose Point of Care 179 mg/dl (65-105)
--- NOTE | 2022-11-11 17:55 | WPDPN ---
Progress Note: A&P Assessment and Plan (1) Syncope: Code(s): R55 - Syncope and collapse Status: Acute Assessment and Plan: Patient likely at a syncopal episode on the toilet today. Seizure seems less likely as she was not postictal, incontinent, and there was no evidence of tongue bite. Furthermore she has no history of seizures. Lactic acid level was minimally elevated but may have been related to lab draw technique. Monitor orthostatic vital signs. 11/11/2022 interval history: Patient came to emergency department with concern with seizure however upon arrival of EMS and while at the Emergency department patient was fully oriented and not postictal patient was admitted for further evaluate and observation, patient also has elevated tropes most likely secondary to end-stage renal disease on hemodialysis however to further evaluate cardiac echo which showed reduced EF of 25% compared to 40% on May of 2022, patient is seen by hogshead dumper patient does need ischemic work up increased carvedilol to 12.5mg BID, and continue DAPT, on 11/10 patient was seen by Cardiology and ordered Lexiscane which showed significant ischemia, hogshead dumper referring patient back to her primary cardiology, and also recommended the patient will need LifeVest before discharge, patient also has wound on her right foot and patient will be seen wound nurse, both bottles of blood cultures are growing g positive cocci and cluster 1 bottle is growing Staph epididymis and another 1 is growing Staph aricular most likely contamination, however patient wound culture is growing Pseudomonas, Will follow-up under identification and sensitivity, patient is being treated vancomycin and Zosyn, on 10/10 while in the washroom injured her left G toe, bleeding and nail was hanging, nail was removed by her nurse, and non stick dressing applied, bleeding stopped, patient with a end-stage renal disease on hemodialysis will be seen her quality systems specialist and will have a scheduled dialysis will continue to monitor. (2) Fluid overload: Qualifiers: Hypervolemia type: unspecified Qualified Code(s): E87.70 - Fluid overload, unspecified Code(s): E87.70 - Fluid overload, unspecified Status: Acute Assessment and Plan: She is markedly edematous, much more than I have ever seen her. She states compliance with dialysis. Unsure if she is compliant with fluid restriction. Nephrology consulted for dialysis which she may need for several days to remove excess fluid. Echocardiogram pending. (3) Diabetic ulcer of left foot: Code(s): E11.621 - Type 2 diabetes mellitus with foot ulcer; L97.529 - Non-pressure chronic ulcer of other part of left foot with unspecified severity Status: Acute Assessment and Plan: [facility] has been consulted and recommends continuing gentamicin ointment and Santyl. No evidence of acute infection at this time. (4) Elevated troponin: Code(s): R77.8 - Other specified abnormalities of plasma proteins Status: Acute Assessment and Plan: She is not having any chest pain whatsoever. Will continue to trend to peak, however. EKG shows no acute ST segment elevations or depressions. (5) Congestive heart failure: Code(s): I50.9 - Heart failure, unspecified Status: Acute Assessment and Plan: Echocardiogram in May 2022 showed moderate LV enlargement with systolic dysfunction EF estimated 35 to 40%, posterior segment akinesis, and grade 2 diastolic dysfunction. Repeat echocardiogram pending to rule out worsening EF as the cause of her marked edema. (6) Elevated LFTs: Code(s): R79.89 - Other specified abnormal findings of blood chemistry Status: Acute Assessment and Plan: Abdominal exam is benign. May very well be related to congestion from fluid overload. Repeat in a.m. (7) Insulin dependent diabetes mellitus:
[2022-11-11] MEDS: metroNIDAZOLE 250 MG TABLET 500 MG PO ×2 (18:37→21:07)
[2022-11-11] MEDS: CIPROFLOXACIN 500 MG TAB PO (18:37)
[2022-11-11 20:45] LABS: Glucose Point of Care 170 mg/dl (65-105)
[2022-11-11] MEDS: INSULIN GLARGINE (*BKC) 100 UNITS/ML 10 UNITS SUB-Q (21:07)
[2022-11-12] VITALS (19 sets, daily range): BP systolic 93–128; BP diastolic 39–49; PULSE 53–82; RESP 18–20; TEMP 35.8–36.6; O2SAT 96–100
[2022-11-12] MEDS: ACETAMINOPHEN 325 MG TABLET 650 MG PO ×2 (04:10→12:57)
[2022-11-12 04:38] LABS: Hematocrit 32.1 % (37.0-47.0); Hemoglobin 10.2 g/dL (12.0-15.0); Immature Platelet Fraction Pct 9.2 % (0.9-11.2); Mean Corpuscular HGB Conc 31.8 g/dl (32-36); Mean Corpuscular Hemoglobin 32.9 pg (26-34); Mean Corpuscular Volume 103.5 fl (80-100); Mean Platelet Volume 11.3 fl (7.4-10.4); Platelet Count Result 84 k/mm3 (150-375); Red Cell Distribution Width 16.6 % (11.5-14.5); White Blood Count 4.4 K/mm3 (4.5-10.0)
[2022-11-12 05:03] LABS: Albumin Level 4.1 g/dL (3.5-5.1); Anion Gap 14 mmol/L (8-16); Blood Urea Nitrogen 36 mg/dL (7-17); Carbon Dioxide 32 mmol/L (22-30); Chloride 91 mmol/L (98-107); Estimated CRCL calculation 19 ml/min; Estimated Glomerular Filt Rate 13; Glucose 168 mg/dL (65-110); Magnesium 2.1 mg/dL (1.6-2.3); Phosphorus 4.9 mg/dL (2.5-4.5); Potassium 4.3 mmol/L (3.4-5.0); Sodium 137 mmol/L (137-145)
[2022-11-12 07:53] LABS: Glucose Point of Care 125 mg/dl (65-105)
[2022-11-12] MEDS: SEVELAMER CARBONATE 800 MG TABLET PO ×4 (09:04→21:38)
[2022-11-12] MEDS: metroNIDAZOLE 250 MG TABLET 500 MG PO ×3 (09:04→21:38)
[2022-11-12] MEDS: ASPIRIN 81 MG ENTERIC TABLET PO (09:04)
[2022-11-12] MEDS: carvediloL 12.5 MG TABLET PO ×2 (09:04→16:37)
[2022-11-12] MEDS: SUCRALFATE 1 GM TABLET PO ×3 (11:34→21:38)
[2022-11-12 11:38] LABS: Glucose Point of Care 171 mg/dl (65-105)
--- NOTE | 2022-11-12 12:17 | PM.PNNEP ---
Progress Note: A&P Assessment and Plan (1) ESRD (end stage renal disease): Code(s): N18.6 - End stage renal disease Status: Chronic Assessment and Plan: HD tomorrow continue M/W/F dialysis schedule follow electrolytes, volume status, and clearance (2) Fluid overload: Qualifiers: Hypervolemia type: unspecified Qualified Code(s): E87.70 - Fluid overload, unspecified Code(s): E87.70 - Fluid overload, unspecified Status: Acute Assessment and Plan: quite apparent by physical exam on admission slow improvement with ongoing fluid removal/ultrafiltration with dialysis suspect worsening EF/cardiomyopathy playing a role Cardiology recommendations noted not opposed to trial of losartan LifeVest on discharge to follow-up with primary punch box tender (3) Bacteremia: Code(s): R78.81 - Bacteremia Status: Acute Assessment and Plan: positive blood culture noted - Staph epidermis on antibiotic therapy repeat blood cultures are negative real versus contamination (?) -- if real, source?? (4) Diabetic ulcer of left foot: Code(s): E11.621 - Type 2 diabetes mellitus with foot ulcer; L97.529 - Non-pressure chronic ulcer of other part of left foot with unspecified severity Status: Acute Assessment and Plan: follow by wound care as an outpatient no acute infection noted continue local wound care (5) Anemia: Code(s): D64.9 - Anemia, unspecified Status: Chronic Assessment and Plan: due to ESRD Epogen with HD follow trend of H/H (6) Insulin dependent diabetes mellitus: Status: Acute Assessment and Plan: follow accuchecks glycemic control per hospitalists Will continue to follow. Subjective Date/time seen: 11/12/22 12:17 Interval history: Follow-up for end stage renal disease on hemodialysis and volume overload. Tolerated dialysis yesterday without any acute issues or problems; breathing seems to be doing better but feels that seems to swell up faster in between dialysis treatments in general; no other acute issues/events voiced. Exam Narrative: General: chronically ill appearing female in NAD Heart: normal S1 and S2; no rub Lungs: clear anteriorly but decreased at bases Abdomen: soft, nontender, nondistended, positive bowel sounds Extremities: 1+ bilateral lower extremity swelling Skin: warm and intact Objective Data Vital Signs Vital Signs: Vital Signs Temp Pulse Resp BP Pulse Ox O2 Del Method O2 Flow Rate 05/16/23 12:00 Room Air 11/12/22 11:42 96.7 F L 59 L 18 93/44 L 100 11/12/22 11:41 56 L 95/39 L 11/12/22 11:40 96.7 F L 59 L 18 93/44 L 100 11/12/22 10:00 56 L 11/12/22 08:00 Room Air 11/12/22 09:04 80 11/12/22 08:00 82 11/12/22 06:00 79 11/12/22 04:00 53 L 11/12/22 02:00 55 L 11/12/22 00:00 79 11/11/22 22:00 60 11/11/22 20:00 61 11/12/22 07:55 96.4 F L 80 20 105/49 L 96 11/12/22 04:00 100 Room Air 11/12/22 00:00 100 Room Air 11/12/22 04:00 97.4 F L 56 L 20 98/46 L 99 11/11/22 23:30 97.2 F L 89 20 126/57 L 99 11/11/22 20:00 100 Room Air 11/11/22 21:06 59 L 11/11/22 20:00 97.6 F 59 L 16 106/54 L 100 11/11/22 18:00 61 11/11/22 16:00 Room Air 11/11/22 16:00 60 11/11/22 17:07 97.9 F 50 L 16 92/30 L 11/11/22 17:07 60 98/63 L 11/11/22 16:40 59 L 72/27 L 11/11/22 16:00 59/28 L 11/11/22 16:23 60 80/32 L 11/11/22 16:02 60 78/36 L 11/11/22 15:45 60 59/28 L 11/11/22 15:24 59 L 69/34 L 11/11/22 15:06 60 77/28 L 11/11/22 14:40 65 85/54 L 11/11/22 14:00 66 11/11/22 13:30 78 149/58 H 11/11/22 14:23 65 98/33 L 11/11/22 14:02 66 86/23 L
--- NOTE | 2022-11-12 12:17 | P.PNNP_ITS ---
Progress Note: A&P Assessment and Plan (1) ESRD (end stage renal disease): Code(s): N18.6 - End stage renal disease Status: Chronic Assessment and Plan: * HD tomorrow * continue M/W/F dialysis schedule * follow electrolytes, volume status, and clearance (2) Fluid overload: Qualifiers: Hypervolemia type: unspecified Qualified Code(s): E87.70 - Fluid overload, unspecified Code(s): E87.70 - Fluid overload, unspecified Status: Acute Assessment and Plan: * quite apparent by physical exam on admission * slow improvement with ongoing fluid removal/ultrafiltration with dialysis * suspect worsening EF/cardiomyopathy playing a role * Cardiology recommendations noted * not opposed to trial of losartan * LifeVest on discharge * to follow-up with primary computer lab aide (3) Bacteremia: Code(s): R78.81 - Bacteremia Status: Acute Assessment and Plan: * positive blood culture noted - Staph epidermis * on antibiotic therapy * repeat blood cultures are negative * real versus contamination (?) -- if real, source?? (4) Diabetic ulcer of left foot: Code(s): E11.621 - Type 2 diabetes mellitus with foot ulcer; L97.529 - Non-pressure chronic ulcer of other part of left foot with unspecified severity Status: Acute Assessment and Plan: * follow by wound care as an outpatient * no acute infection noted * continue local wound care (5) Anemia: Code(s): D64.9 - Anemia, unspecified Status: Chronic Assessment and Plan: * due to ESRD * Epogen with HD * follow trend of H/H (6) Insulin dependent diabetes mellitus: Status: Acute Assessment and Plan: * follow accuchecks * glycemic control per hospitalists Will continue to follow. Subjective Date/time seen: 11/12/22 12:17 Interval history: Follow-up for end stage renal disease on hemodialysis and volume overload. Tolerated dialysis yesterday without any acute issues or problems; breathing seems to be doing better but feels that seems to swell up faster in between dialysis treatments in general; no other acute issues/events voiced. Exam Narrative: General: chronically ill appearing female in NAD Heart: normal S1 and S2; no rub Lungs: clear anteriorly but decreased at bases Abdomen: soft, nontender, nondistended, positive bowel sounds Extremities: 1+ bilateral lower extremity swelling Skin: warm and intact Objective Data Vital Signs Vital Signs: Vital Signs Temp Pulse Resp BP Pulse Ox O2 Del Method O2 Flow Rate 11/12/22 12:00 Room Air 11/12/22 11:42 96.7 F L 59 L 18 93/44 L 100 11/12/22 11:41 56 L 95/39 L 11/12/22 11:40 96.7 F L 59 L 18 93/44 L 100 11/12/22 10:00 56 L 11/12/22 08:00 Room Air 11/12/22 09:04 80 11/12/22 08:00 82 11/12/22 06:00 79 11/12/22 04:00 53 L 11/12/22 02:00 55 L 11/12/22 00:00 79 11/11/22 22:00 60 11/11/22 20:00 61 11/12/22 07:55 96.4 F L 80 20 105/49 L 96 11/12/22 04:00 100 Room Air 11/12/22 00:00 100 Room Air 11/12/22 04:00 97.4 F L 56 L 20 98/46 L 99 11/11/22 23:30 97.2 F L 89 20 12
[2022-11-12] MEDS: calcitrioL 0.25 MCG CAPSULE PO (12:56)
[2022-11-12] MEDS: PANTOPRAZOLE 40 MG TABLET PO ×2 (12:56→21:39)
[2022-11-12] MEDS: LIDOCAINE 5% PATCH 1 PATCH TRANSDERM (12:57)
[2022-11-12] MEDS: VITAMIN B CMPLX/VIT C/FOLIC AC 1 CAPSULE 1 CAP PO (12:57)
[2022-11-12 15:58] LABS: Glucose Point of Care 339 mg/dl (65-105)
[2022-11-12] MEDS: GENTAMICIN SULFATE 0.1% OINT 15 GM TUBE 1 APPLIC TOPICAL (16:37)
[2022-11-12] MEDS: COLLAGENASE OINT 30 GM TUBE 1 APPLIC TOPICAL (16:37)
[2022-11-12] MEDS: INSULIN ASPART (*BKC) 100 UNITS/ML SUB-Q (16:38)
--- NOTE | 2022-11-12 17:31 | WPDPN ---
Progress Note: A&P Assessment and Plan (1) Syncope: Code(s): R55 - Syncope and collapse Status: Acute Assessment and Plan: Patient likely at a syncopal episode on the toilet today. Seizure seems less likely as she was not postictal, incontinent, and there was no evidence of tongue bite. Furthermore she has no history of seizures. Lactic acid level was minimally elevated but may have been related to lab draw technique. Monitor orthostatic vital signs. 11/12/2022 interval history: Patient came to emergency department with concern with seizure however upon arrival of EMS and while at the Emergency department patient was fully oriented and not postictal patient was admitted for further evaluate and observation, patient also has elevated tropes most likely secondary to end-stage renal disease on hemodialysis however to further evaluate cardiac echo which showed reduced EF of 25% compared to 40% on May of 2022, patient is seen by catalogue illustrator patient does need ischemic work up increased carvedilol to 12.5mg BID, and continue DAPT, on 11/10 patient was seen by Cardiology and ordered Lexiscane which showed significant ischemia, catalogue illustrator referring patient back to her primary cardiology, and also recommended the patient will need LifeVest before discharge, patient also has wound on her right foot and patient will be seen wound nurse, both bottles of blood cultures are growing g positive cocci and cluster 1 bottle is growing Staph epididymis and another 1 is growing Staph aricular most likely contamination, however patient wound culture is growing Pseudomonas, Will follow-up under identification and sensitivity, patient is being treated vancomycin and Zosyn, on 10/10 while in the washroom injured her left G toe, bleeding and nail was hanging, nail was removed by her nurse, and non stick dressing applied, bleeding stopped, patient with a end-stage renal disease on hemodialysis will be seen her bartender and will have a scheduled dialysis Remains clinically stable pending LifeVest may discharge patient tomorrow, will continue to monitor (2) Fluid overload: Qualifiers: Hypervolemia type: unspecified Qualified Code(s): E87.70 - Fluid overload, unspecified Code(s): E87.70 - Fluid overload, unspecified Status: Acute Assessment and Plan: She is markedly edematous, much more than I have ever seen her. She states compliance with dialysis. Unsure if she is compliant with fluid restriction. Nephrology consulted for dialysis which she may need for several days to remove excess fluid. Echocardiogram pending. (3) Diabetic ulcer of left foot: Code(s): E11.621 - Type 2 diabetes mellitus with foot ulcer; L97.529 - Non-pressure chronic ulcer of other part of left foot with unspecified severity Status: Acute Assessment and Plan: Followed by wound care [facility]. Wound nurse has been consulted and recommends continuing gentamicin ointment and Santyl. No evidence of acute infection at this time. (4) Elevated troponin: Code(s): R77.8 - Other specified abnormalities of plasma proteins Status: Acute Assessment and Plan: She is not having any chest pain whatsoever. Will continue to trend to peak, however. EKG shows no acute ST segment elevations or depressions. (5) Congestive heart failure: Code(s): I50.9 - Heart failure, unspecified Status: Acute Assessment and Plan: Echocardiogram in May 2022 showed moderate LV enlargement with systolic dysfunction EF estimated 35 to 40%, posterior segment akinesis, and grade 2 diastolic dysfunction. Repeat echocardiogram pending to rule out worsening EF as the cause of her marked edema. (6) Elevated LFTs: Code(s): R79.89 - Other specified abnormal findings of blood chemistry Status: Acute Assessment and Plan: Abdominal exam is benign. May very well be related to congestion from fluid o
[2022-11-12] MEDS: CIPROFLOXACIN 500 MG TAB PO (18:06)
[2022-11-12 20:56] LABS: Glucose Point of Care 270 mg/dl (65-105)
[2022-11-12] MEDS: MELATONIN 5 MG TABLET PO (21:39)
[2022-11-12] MEDS: INSULIN GLARGINE (*BKC) 100 UNITS/ML 10 UNITS SUB-Q (21:40)
[2022-11-12] MEDS: HYDROcodone/acetaminophen (*CRX) 5-325 MG TABLET 1 TAB PO (23:48)
[2022-11-13] VITALS (31 sets, daily range): BP systolic 97–136; BP diastolic 40–71; PULSE 54–70; RESP 13–22; TEMP 36–37; O2SAT 93–100
[2022-11-13 04:55] LABS: Hemoglobin 9.9 g/dL (12.0-15.0); Immature Platelet Fraction Pct 8.1 % (0.9-11.2); Mean Corpuscular HGB Conc 30.9 g/dl (32-36); Mean Corpuscular Hemoglobin 31.7 pg (26-34); Mean Corpuscular Volume 102.6 fl (80-100); Mean Platelet Volume 11.6 fl (7.4-10.4); Platelet Count Result 87 k/mm3 (150-375); Red Blood Count 3.12 M/mm3 (4.2-5.4); Red Cell Distribution Width 16.6 % (11.5-14.5); White Blood Count 5.5 K/mm3 (4.5-10.0)
[2022-11-13 05:00] LABS: Albumin Level 4.1 g/dL (3.5-5.1); Anion Gap 16 mmol/L (8-16); Blood Urea Nitrogen 45 mg/dL (7-17); Calcium 9.5 mg/dL (8.4-10.2); Carbon Dioxide 29 mmol/L (22-30); Chloride 92 mmol/L (98-107); Estimated CRCL calculation 14 ml/min; Estimated Glomerular Filt Rate 9; Glucose 258 mg/dL (65-110); Magnesium 2.1 mg/dL (1.6-2.3); Phosphorus 6.6 mg/dL (2.5-4.5); Sodium 137 mmol/L (137-145)
[2022-11-13] MEDS: HYDROcodone/acetaminophen (*CRX) 5-325 MG TABLET 1 TAB PO ×3 (05:20→21:34)
[2022-11-13] MEDS: metroNIDAZOLE 250 MG TABLET 500 MG PO ×3 (05:21→21:33)
[2022-11-13] MEDS: SUCRALFATE 1 GM TABLET PO ×3 (05:21→21:33)
[2022-11-13 07:42] LABS: Glucose Point of Care 249 mg/dl (65-105)
[2022-11-13] MEDS: VITAMIN B CMPLX/VIT C/FOLIC AC 1 CAPSULE 1 CAP PO (08:27)
[2022-11-13] MEDS: carvediloL 12.5 MG TABLET PO ×2 (08:28→16:38)
[2022-11-13] MEDS: calcitrioL 0.25 MCG CAPSULE PO (08:28)
[2022-11-13] MEDS: SEVELAMER CARBONATE 800 MG TABLET PO ×4 (08:28→21:34)
[2022-11-13] MEDS: ASPIRIN 81 MG ENTERIC TABLET PO (08:28)
[2022-11-13] MEDS: PANTOPRAZOLE 40 MG TABLET PO ×2 (08:28→21:34)
[2022-11-13] MEDS: LIDOCAINE 5% PATCH 1 PATCH TRANSDERM (08:28)
[2022-11-13] MEDS: INSULIN ASPART (*BKC) 100 UNITS/ML SUB-Q ×2 (08:29→16:41)
[2022-11-13] MEDS: COLLAGENASE OINT 30 GM TUBE 1 APPLIC TOPICAL (08:29)
[2022-11-13] MEDS: GENTAMICIN SULFATE 0.1% OINT 15 GM TUBE 1 APPLIC TOPICAL (08:29)
[2022-11-13] MEDS: EPOETIN ALFA-EPBX 10,000 UNITS/ML VIAL 10000 UNITS IV PUSH (11:01)
--- NOTE | 2022-11-13 12:10 | PM.PNNEP ---
Progress Note: A&P Assessment and Plan (1) ESRD (end stage renal disease): Code(s): N18.6 - End stage renal disease Status: Chronic Assessment and Plan: HD today continue M/W/F dialysis schedule follow electrolytes, volume status, and clearance (2) Fluid overload: Qualifiers: Hypervolemia type: unspecified Qualified Code(s): E87.70 - Fluid overload, unspecified Code(s): E87.70 - Fluid overload, unspecified Status: Acute Assessment and Plan: quite apparent by physical exam on admission slow improvement with ongoing fluid removal/ultrafiltration with dialysis continue to push fluid removal as tolerated by hemodynamics suspect worsening EF/cardiomyopathy playing a role Cardiology recommendations noted not opposed to trial of losartan LifeVest on discharge to follow-up with primary patternmaker bench (3) Bacteremia: Code(s): R78.81 - Bacteremia Status: Acute Assessment and Plan: positive blood culture noted - Staph epidermis on antibiotic therapy repeat blood cultures are negative real versus contamination (?) -- if real, source?? (4) Diabetic ulcer of left foot: Code(s): E11.621 - Type 2 diabetes mellitus with foot ulcer; L97.529 - Non-pressure chronic ulcer of other part of left foot with unspecified severity Status: Acute Assessment and Plan: follow by wound care as an outpatient no acute infection noted continue local wound care (5) Anemia: Code(s): D64.9 - Anemia, unspecified Status: Chronic Assessment and Plan: due to ESRD Epogen with HD follow trend of H/H (6) Insulin dependent diabetes mellitus: Status: Acute Assessment and Plan: follow accuchecks glycemic control per hospitalists Will continue to follow. Subjective Date/time seen: 11/13/22 12:10 Interval history: Follow-up for end stage renal disease on hemodialysis and volume overload. Tolerating dialysis treatment at the time of my visit (seen on HD at ~ 12:00PM); still somewhat frustrated by her recurrent fluid retention/edema despite current therapy/interventions; no other acute issues/events overnight or earlier this AM. Exam Narrative: General: chronically ill appearing female in NAD Heart: normal S1 and S2; no rub Lungs: clear anteriorly but decreased at bases Abdomen: soft, nontender, nondistended, positive bowel sounds Extremities: 1+ bilateral lower extremity swelling Skin: no rash Objective Data Vital Signs Vital Signs: Vital Signs Temp Pulse Resp BP Pulse Ox O2 Del Method FiO2 11/13/22 12:00 59 L 11/13/22 10:00 58 L 11/13/22 08:00 66 11/13/22 12:20 59 L 121/56 L 11/13/22 12:00 59 L 112/61 11/13/22 11:40 59 L 123/63 11/13/22 11:20 58 L 118/68 11/13/22 11:00 65 136/41 L 11/13/22 10:40 59 L 118/53 L 11/13/22 10:20 57 L 110/59 L 11/13/22 10:00 58 L 112/49 L 11/13/22 09:40 70 97/64 L 11/13/22 09:20 57 L 109/57 L 11/13/22 09:11 57 L 104/57 L 11/13/22 09:00 98.0 F 58 L 18 104/52 L 96 11/13/22 08:00 Room Air 11/13/22 08:28 64 11/13/22 07:48 98.4 F 56 L 16 108/59 L 93 11/13/22 06:00 57 L 11/13/22 04:00 57 L 22 H 96 CPAP 28 11/13/22 04:00 57 L 11/13/22 01:45 63 13 99 CPAP 11/13/22 04:00 97.1 F L 58 L 22 H 103/40 L 96 11/13/22 02:00 54 L 11/13/22 00:00 70 16 100 Room Air 28 11/13/22 00:00 70 11/13/22 00:00 97.8 F 54 L 16 108/45 L 100 11/12/22 22:00 57 L 11/12/22 20:00 59 L 20 100 Room Air 28 11/12/22 20:00 59 L 11/12/22 20:00 97.9 F 67 20 128/49 L 100 11/12/22 16:00 Room Air 11/12/22 18:00 60 11/12/22 16:00 58 L 11/12/22 16:37 59 L 11/12/22 16:14 97.3 F L 58 L 20 122/47 L 98
--- NOTE | 2022-11-13 12:10 | P.PNNP_ITS ---
Progress Note: A&P Assessment and Plan (1) ESRD (end stage renal disease): Code(s): N18.6 - End stage renal disease Status: Chronic Assessment and Plan: * HD today * continue M/W/F dialysis schedule * follow electrolytes, volume status, and clearance (2) Fluid overload: Qualifiers: Hypervolemia type: unspecified Qualified Code(s): E87.70 - Fluid overload, unspecified Code(s): E87.70 - Fluid overload, unspecified Status: Acute Assessment and Plan: * quite apparent by physical exam on admission * slow improvement with ongoing fluid removal/ultrafiltration with dialysis * continue to push fluid removal as tolerated by hemodynamics * suspect worsening EF/cardiomyopathy playing a role * Cardiology recommendations noted * not opposed to trial of losartan * LifeVest on discharge * to follow-up with primary gunite mixer (3) Bacteremia: Code(s): R78.81 - Bacteremia Status: Acute Assessment and Plan: * positive blood culture noted - Staph epidermis * on antibiotic therapy * repeat blood cultures are negative * real versus contamination (?) -- if real, source?? (4) Diabetic ulcer of left foot: Code(s): E11.621 - Type 2 diabetes mellitus with foot ulcer; L97.529 - Non-pressure chronic ulcer of other part of left foot with unspecified severity Status: Acute Assessment and Plan: * follow by wound care as an outpatient * no acute infection noted * continue local wound care (5) Anemia: Code(s): D64.9 - Anemia, unspecified Status: Chronic Assessment and Plan: * due to ESRD * Epogen with HD * follow trend of H/H (6) Insulin dependent diabetes mellitus: Status: Acute Assessment and Plan: * follow accuchecks * glycemic control per hospitalists Will continue to follow. Subjective Date/time seen: 11/13/22 12:10 Interval history: Follow-up for end stage renal disease on hemodialysis and volume overload. Tolerating dialysis treatment at the time of my visit (seen on HD at ~ 12:00PM); still somewhat frustrated by her recurrent fluid retention/edema despite current therapy/interventions; no other acute issues/events overnight or earlier this AM. Exam Narrative: General: chronically ill appearing female in NAD Heart: normal S1 and S2; no rub Lungs: clear anteriorly but decreased at bases Abdomen: soft, nontender, nondistended, positive bowel sounds Extremities: 1+ bilateral lower extremity swelling Skin: no rash Objective Data Vital Signs Vital Signs: Vital Signs Temp Pulse Resp BP Pulse Ox O2 Del Method FiO2 11/13/22 12:00 59 L 11/13/22 10:00 58 L 11/13/22 08:00 66 11/13/22 12:20 59 L 121/56 L 11/13/22 12:00 59 L 112/61 11/13/22 11:40 59 L 123/63 11/13/22 11:20 58 L 118/68 11/13/22 11:00 65 136/41 L 11/13/22 10:40 59 L 118/53 L 11/13/22 10:20 57 L 110/59 L 11/13/22 10:00 58 L 112/49 L 11/13/22 09:40 70 97/64 L 11/13/22 09:20 57 L 109/57 L 11/13/22 09:11 57 L 104/57 L 11/13/22 09:00 98.0 F 58 L 18 104/52 L 96 11/13/22 08:00 Room Air 11/13/22 08:28 64 11/13/22
[2022-11-13 13:34] LABS: Glucose Point of Care 178 mg/dl (65-105)
--- NOTE | 2022-11-13 13:49 | PM.PNCARD ---
Progress Note: A&P Assessment and Plan (1) Syncope: Code(s): R55 - Syncope and collapse Status: Acute Assessment and Plan: Patient admitted with a syncopal episode without prodrome, and brief seizure-like activity but she was not postictal so at this was likely not a seizure. Echo read as EF 25 - 30%, so in view of her severe left ventricular dysfunction, she was considered at risk of malignant arrhythmias, which may be etiology of her syncope. EF today on nuclear imaging measured EF at 54%, but may be an overestimation of the EF. Will base treatment recommendations on EF from echocardiogram -- keep on telemetry -- Reviewed her risk of sudden cardiac . Dr. Fulton previously discussed LifeVest and eventual electrophysiology consultation. Her usual direct service worker is Dr. Tracey Nair. --Discharge with LifeVest. LifeVest ordered. --may need an ICD --Continue carvedilol (2) Cardiomyopathy: Code(s): I42.9 - Cardiomyopathy, unspecified Status: Acute Assessment and Plan: Ischemic cardiomyopathy; the patient's ejection fraction varies from 30% to 50%, but the echo this admission showed severe left ventricular dysfunction, EF now 25-30%. Does have volume overload but pulmonary congestion. --increase carvedilol to 12.5 mg BID, titrate dose as blood pressure tolerates --add losartan if okay with Dr. Vizcaino?natalie and pt's BP --likely cannot use an SGLT-2 inhibitor or spironolactone in view of her end-stage renal disease (3) Coronary artery disease: Code(s): I25.10 - Atherosclerotic heart disease of [place] coronary artery without angina pectoris Status: Acute Assessment and Plan: CAD, history of CABG in 2021. Does have elevated troponins but no ischemic changes on her EKG or chest pain. Doubt any ACS. --continue beta-jaye, aspirin, atorvastatin --Resume Brilinta when bleeding from toenail subsides. Her medical care is dispersed, but looks like she had NSTEMI in 01/2022 with stent placement, so would require DAPT at least until 01/2023 --Lexiscan stress showed moderate-sized area of mild ischemia involving mid to basal inferior and mid inferoseptal segments of left ventricle, small area of mild ischemia involving mid anterior segment of left ventricle, and Large area of severe infarct involving mid to basal anterolateral and inferolateral wall of left ventricle. Since she is not having any ischemic symptoms, and with complex history of CAD with CABG and stenting, would not recommend angiogram at this time. Will defer to her usual direct service worker, Dr. Tracey Nair in this regard. (4) Diabetic ulcer of left foot: Code(s): E11.621 - Type 2 diabetes mellitus with foot ulcer; L97.529 - Non-pressure chronic ulcer of other part of left foot with unspecified severity Status: Acute Assessment and Plan: Being evaluated by the [facility] at [facility]. (5) Bacteremia: Code(s): R78.81 - Bacteremia Status: Acute Assessment and Plan: Found to have staph epi in 2 blood cultures (6) End stage renal disease: Code(s): N18.6 - End stage renal disease Status: Chronic Assessment and Plan: Being being followed followed by Dr. Vizcaino/Natalie. Subjective Date/time seen: 11/13/22 13:49 Interval history: Reason for visit: Heart failure with reduced ejection fraction HPI: Pamela Bhat is a 47-year-old female were asked to see at the request of Dr. Aguilar for advice and opinion regarding her reduced ejection fraction, in consultation. She has a history of end-stage renal disease on dialysis, coronary artery disease status post PCI to the RCA, and later CABG x3 with left internal mammary artery to the left anterior descending, saphenous vein graft to the 1st obtuse marginal, and saphenous vein graft to the posterior descending branch of the right coronary artery in September of 2021 at [facility].? She also has an ischemi
[2022-11-13 16:30] LABS: Glucose Point of Care 317 mg/dl (65-105)
[2022-11-13] MEDS: CIPROFLOXACIN 500 MG TAB PO (17:15)
--- NOTE | 2022-11-13 17:24 | WPDPN ---
Progress Note: A&P Assessment and Plan (1) Syncope: Code(s): R55 - Syncope and collapse Status: Acute Assessment and Plan: Patient likely at a syncopal episode on the toilet today. Seizure seems less likely as she was not postictal, incontinent, and there was no evidence of tongue bite. Furthermore she has no history of seizures. Lactic acid level was minimally elevated but may have been related to lab draw technique. Monitor orthostatic vital signs. 11/13/2022 interval history: Patient came to emergency department with concern with seizure however upon arrival of EMS and while at the Emergency department patient was fully oriented and not postictal patient was admitted for further evaluate and observation, patient also has elevated tropes most likely secondary to end-stage renal disease on hemodialysis however to further evaluate cardiac echo which showed reduced EF of 25% compared to 40% on May of 2022, patient is seen by vice principal patient does need ischemic work up increased carvedilol to 12.5mg BID, and continue DAPT, on 11/10 patient was seen by Cardiology and ordered Lexiscane which showed significant ischemia, vice principal referring patient back to her primary cardiology, and also recommended the patient will need LifeVest before discharge, patient also has wound on her right foot and patient will be seen wound nurse, both bottles of blood cultures are growing g positive cocci and cluster 1 bottle is growing Staph epididymis and another 1 is growing Staph aricular most likely contamination, however patient wound culture is growing Pseudomonas, Will follow-up under identification and sensitivity, patient is being treated vancomycin and Zosyn, on 10/10 while in the washroom injured her left G toe, bleeding and nail was hanging, nail was removed by her nurse, and non stick dressing applied, bleeding stopped, patient with a end-stage renal disease on hemodialysis will be seen her billet assembler and will have a scheduled dialysis Remains clinically stable LifeVest is orderd today my her vice principal, may discharge patient tomorrow,? will continue to monitor (2) Fluid overload: Qualifiers: Hypervolemia type: unspecified Qualified Code(s): E87.70 - Fluid overload, unspecified Code(s): E87.70 - Fluid overload, unspecified Status: Acute Assessment and Plan: She is markedly edematous, much more than I have ever seen her. She states compliance with dialysis. Unsure if she is compliant with fluid restriction. Nephrology consulted for dialysis which she may need for several days to remove excess fluid. Echocardiogram pending. (3) Diabetic ulcer of left foot: Code(s): E11.621 - Type 2 diabetes mellitus with foot ulcer; L97.529 - Non-pressure chronic ulcer of other part of left foot with unspecified severity Status: Acute Assessment and Plan: [facility] nurse has been consulted and recommends continuing gentamicin ointment and Santyl. No evidence of acute infection at this time. (4) Elevated troponin: Code(s): R77.8 - Other specified abnormalities of plasma proteins Status: Acute Assessment and Plan: She is not having any chest pain whatsoever. Will continue to trend to peak, however. EKG shows no acute ST segment elevations or depressions. (5) Congestive heart failure: Code(s): I50.9 - Heart failure, unspecified Status: Acute Assessment and Plan: Echocardiogram in May 2022 showed moderate LV enlargement with systolic dysfunction EF estimated 35 to 40%, posterior segment akinesis, and grade 2 diastolic dysfunction. Repeat echocardiogram pending to rule out worsening EF as the cause of her marked edema. (6) Elevated LFTs: Code(s): R79.89 - Other specified abnormal findings of blood chemistry Status: Acute Assessment and Plan: Abdominal exam is benign. May very well be relate
[2022-11-13 19:59] LABS: Glucose Point of Care 333 mg/dl (65-105)
[2022-11-13] MEDS: MELATONIN 5 MG TABLET PO (21:33)
[2022-11-13] MEDS: INSULIN GLARGINE (*BKC) 100 UNITS/ML 10 UNITS SUB-Q (21:35)
[2022-11-14] VITALS (11 sets, daily range): BP systolic 99–129; BP diastolic 33–52; PULSE 53–83; RESP 14–55; TEMP 36.1–36.8; O2SAT 20–100
[2022-11-14] MEDS: HYDROcodone/acetaminophen (*CRX) 5-325 MG TABLET 1 TAB PO (04:54)
[2022-11-14] MEDS: metroNIDAZOLE 250 MG TABLET 500 MG PO ×2 (04:54→13:18)
[2022-11-14] MEDS: SUCRALFATE 1 GM TABLET PO ×2 (04:55→13:10)
[2022-11-14 05:01] LABS: Hematocrit 32.8 % (37.0-47.0); Hemoglobin 10.2 g/dL (12.0-15.0); Immature Platelet Fraction Pct 7.4 % (0.9-11.2); Mean Corpuscular HGB Conc 31.1 g/dl (32-36); Mean Corpuscular Hemoglobin 32.4 pg (26-34); Mean Corpuscular Volume 104.1 fl (80-100); Mean Platelet Volume 11.7 fl (7.4-10.4); Platelet Count Result 97 k/mm3 (150-375); Red Blood Count 3.15 M/mm3 (4.2-5.4); Red Cell Distribution Width 17.2 % (11.5-14.5); White Blood Count 5.3 K/mm3 (4.5-10.0)
[2022-11-14 05:43] LABS: Albumin Level 4.1 g/dL (3.5-5.1); Anion Gap 14 mmol/L (8-16); Blood Urea Nitrogen 32 mg/dL (7-17); Calcium 9.4 mg/dL (8.4-10.2); Carbon Dioxide 29 mmol/L (22-30); Chloride 94 mmol/L (98-107); Estimated CRCL calculation 19 ml/min; Estimated Glomerular Filt Rate 13; Glucose 337 mg/dL (65-110); Phosphorus 5.7 mg/dL (2.5-4.5); Potassium 4.3 mmol/L (3.4-5.0); Sodium 137 mmol/L (137-145)
[2022-11-14 07:54] LABS: Glucose Point of Care 307 mg/dl (65-105)
[2022-11-14] MEDS: carvediloL 12.5 MG TABLET PO (08:49)
[2022-11-14] MEDS: INSULIN ASPART (*BKC) 100 UNITS/ML SUB-Q ×2 (08:52→13:19)
[2022-11-14] MEDS: SEVELAMER CARBONATE 800 MG TABLET PO ×2 (08:56→13:10)
[2022-11-14] MEDS: ASPIRIN 81 MG ENTERIC TABLET PO (08:56)
[2022-11-14] MEDS: PANTOPRAZOLE 40 MG TABLET PO (08:57)
[2022-11-14] MEDS: GENTAMICIN SULFATE 0.1% OINT 15 GM TUBE 1 APPLIC TOPICAL (08:57)
[2022-11-14] MEDS: calcitrioL 0.25 MCG CAPSULE PO (08:57)
[2022-11-14] MEDS: COLLAGENASE OINT 30 GM TUBE 1 APPLIC TOPICAL (08:57)
[2022-11-14] MEDS: VITAMIN B CMPLX/VIT C/FOLIC AC 1 CAPSULE 1 CAP PO (08:58)
[2022-11-14] MEDS: LIDOCAINE 5% PATCH 1 PATCH TRANSDERM (10:03)
--- NOTE | 2022-11-14 10:32 | PCNWS ---
Weekly nutritional screen. Patient is tolerating current heart healthy diet with adequate intake at 100% most all meals. No weight loss reported. No nutritional needs at this time.
[2022-11-14 12:03] LABS: Glucose Point of Care 312 mg/dl (65-105)
--- NOTE | 2022-11-14 14:25 | PM.DS ---
DS: Admitting Diagnosis Discharge Date 11/13/2022 Admitting Diagnosis Possible seizure DS: Discharge Diagnosis Discharge Diagnosis (1) Syncope: Code(s): R55 - Syncope and collapse Status: Acute Assessment and Plan: Patient likely at a syncopal episode on the toilet today. Seizure seems less likely as she was not postictal, incontinent, and there was no evidence of tongue bite. Furthermore she has no history of seizures. Lactic acid level was minimally elevated but may have been related to lab draw technique. Monitor orthostatic vital signs. 11/13/2022 interval history: Patient came to emergency department with concern with seizure however upon arrival of EMS and while at the Emergency department patient was fully oriented and not postictal patient was admitted for further evaluate and observation, patient also has elevated tropes most likely secondary to end-stage renal disease on hemodialysis however to further evaluate cardiac echo which showed reduced EF of 25% compared to 40% on May of 2022, patient is seen by it support consultant patient does need ischemic work up increased carvedilol to 12.5mg BID, and continue DAPT, on 11/10 patient was seen by Cardiology and ordered Lexiscane which showed significant ischemia, it support consultant referring patient back to her primary cardiology, and also recommended the patient will need LifeVest before discharge, patient also has wound on her right foot and patient will be seen wound nurse, both bottles of blood cultures are growing g positive cocci and cluster 1 bottle is growing Staph epididymis and another 1 is growing Staph aricular most likely contamination, however patient wound culture is growing Pseudomonas, Will follow-up under identification and sensitivity, patient is being treated vancomycin and Zosyn, on 10/10 while in the washroom injured her left G toe, bleeding and nail was hanging, nail was removed by her nurse, and non stick dressing applied, bleeding stopped, patient with a end-stage renal disease on hemodialysis will be seen her certified neurodiagnostic technologist and will have a scheduled dialysis Remains clinically stable LifeVest is orderd today my her it support consultant, may discharge patient tomorrow,? will continue to monitor (2) Fluid overload: Qualifiers: Hypervolemia type: unspecified Qualified Code(s): E87.70 - Fluid overload, unspecified Code(s): E87.70 - Fluid overload, unspecified Status: Acute Assessment and Plan: She is markedly edematous, much more than I have ever seen her. She states compliance with dialysis. Unsure if she is compliant with fluid restriction. Nephrology consulted for dialysis which she may need for several days to remove excess fluid. Echocardiogram pending. (3) Diabetic ulcer of left foot: Code(s): E11.621 - Type 2 diabetes mellitus with foot ulcer; L97.529 - Non-pressure chronic ulcer of other part of left foot with unspecified severity Status: Acute Assessment and Plan: Followed by wound care [facility]. Wound nurse has been consulted and recommends continuing gentamicin ointment and Santyl. No evidence of acute infection at this time. (4) Elevated troponin: Code(s): R77.8 - Other specified abnormalities of plasma proteins Status: Acute Assessment and Plan: She is not having any chest pain whatsoever. Will continue to trend to peak, however. EKG shows no acute ST segment elevations or depressions. (5) Congestive heart failure: Code(s): I50.9 - Heart failure, unspecified Status: Acute Assessment and Plan: Echocardiogram in May 2022 showed moderate LV enlargement with systolic dysfunction EF estimated 35 to 40%, posterior segment akinesis, and grade 2 diastolic dysfunction. Repeat echocardiogram pending to rule out worsening EF as the cause of her marked edema. (6) Elevated LFTs: Code(s): R79.89 - Other specified abnormal findings of blood chemistry
== END 2022-11-14 15:37 | disposition home or self-care (01) | DRG 312 ==
LOC: ANHED 06:45 → ANHIMU 08:07
PROVIDERS: Internal Medicine Nephrology; Physician Assistant; Admitting Provider Family Medicine; Emergency Provider General Practice; PCP Internal Medicine; Visit Provider Family Medicine
DX: R55 Syncope and collapse (principal); N18.6 End stage renal disease; I50.41 Acute combined systolic (congestive) and diastolic (congestive) heart failure; G93.5 Compression of brain; E11.621 Type 2 diabetes mellitus with foot ulcer; B96.5 Pseudomonas (aeruginosa) (mallei) (pseudomallei) as the cause of diseases classified elsewhere; L97.529 Non-pressure chronic ulcer of other part of left foot with unspecified severity; E11.22 Type 2 diabetes mellitus with diabetic chronic kidney disease; Z99.2 Dependence on renal dialysis; I25.5 Ischemic cardiomyopathy; E11.65 Type 2 diabetes mellitus with hyperglycemia; I25.10 Atherosclerotic heart disease of native coronary artery without angina pectoris; E78.5 Hyperlipidemia, unspecified; N25.0 Renal osteodystrophy; D63.1 Anemia in chronic kidney disease; F17.210 Nicotine dependence, cigarettes, uncomplicated; Z95.5 Presence of coronary angioplasty implant and graft; Z89.422 Acquired absence of other left toe(s); Z79.82 Long term (current) use of aspirin; Z79.4 Long term (current) use of insulin; Z89.511 Acquired absence of right leg below knee; Z95.1 Presence of aortocoronary bypass graft
CPT/HCPCS: 36415; 70450; 71045; 73630; 78452; 80053; 80069; 80202; 82948; 83605; 83735; 84443; 84484; 85025; 85027; 85055; 85652; 86140; 86706; 87040; 87070; 87077; 87147; 87181; 87186; 87205; 87340; 93005; 93017; 93306; 93970; 96365; 99285; A9270; A9502; G0257; G0378; J1644; J1815; J2270; J2405; J2543; J2785; J3370; J7030; P9047; Q5105